=== PATIENT | female | born 1945 | race Caucasian/White ===

== ENCOUNTER 2019-10-31 15:10 | Emergency (ER) | payer MEDICARE, MEDICAID, SELFPAY ==
[2019-10-31 15:12] VITALS: BP 150/80; PULSE 73; RESP 16; O2SAT 94
--- NOTE | 2019-10-31 15:19 | ED.GENADULT ---
HPI - General Adult General Chief complaint: Weakness Stated complaint: Lethargic Time Seen by Provider: 10/31/19 15:16 Source: patient Mode of arrival: EMS Limitations: no limitations History of Present Illness HPI narrative: A 74 y/o female pt presents to the ED with c/o lethargy. Pt states that she woke up to take her night time medication at 0200 last night and did not wake until 1400 today. She states that when she woke she felt like she was sedated and couldn't move her body. She describes the feeling as her mind being awake but her body was not. Pt states that her long-term home sent her to the ED because they had difficulties waking her up, which is unusual. She notes that her BP was really high at the facility. Pt's pressure is 150/80 with EDP at bedside. Pt denies CP, ABD pain, or OATES. She denies any aggravating or alleviating factors for the lethargy. MD complaint: Lethargy Onset (ago): hour(s) (1) Relieving factors: none Exacerbating factors: none Associated symptoms: denies other symptoms Related Data Home Medications Medication Instructions Recorded Confirmed albuterol sulfate 2.5 mg INHALATION TID ml 08/13/19 08/13/19 albuterol sulfate 90 mcg/actuation 2 puff INHALATION Q4-6H PRN gm 08/13/19 08/13/19 aerosol inhaler atorvastatin 80 mg tablet 80 mg PO DAILY 08/13/19 08/13/19 diclofenac sodium 1 % topical gel 2 gm TOPICAL QID 08/13/19 08/13/19 diclofenac sodium 75 mg 75 mg PO BID 08/13/19 08/13/19 tablet,delayed release dicyclomine 10 mg capsule 10 mg PO TID PRN 08/13/19 08/13/19 doxycycline hyclate 100 mg tablet 100 mg PO BID tablet 08/13/19 08/13/19 duloxetine 60 mg capsule,delayed 60 mg PO DAILY 08/13/19 08/13/19 release ferrous sulfate 325 mg (65 mg 325 mg PO DAILY 08/13/19 08/13/19 iron) tablet fluticasone furoate 100 1 inhalation INHALATION DAILY 08/13/19 08/13/19 mcg-vilanterol 25 mcg/dose inhalation powder fluticasone propionate 50 2 spray NASAL DAILY 08/13/19 08/13/19 mcg/actuation nasal spray,suspension folic acid 1 mg tablet 1 mg PO DAILY 08/13/19 08/13/19 gabapentin 300 mg capsule 300 mg PO TID 08/13/19 08/13/19 ipratropium bromide 17 2 puff INHALATION QID 08/13/19 08/13/19 mcg/actuation HFA aerosol inhaler [id number]-[id number]-[id number] 2 cap PO TID cap 08/13/19 08/13/19 12,000-38,000-60,000 unit capsule,delayed rel lubiprostone 8 mcg capsule 8 mcg PO BID 08/13/19 08/13/19 meclizine 12.5 mg tablet 25 mg PO TID PRN tablet 08/13/19 08/13/19 nicotine 7 mg/24 hr daily 1 patch TRANSDERM DAILY 08/13/19 08/13/19 transdermal patch nystatin 100,000 unit/mL oral 5 ml PO QID ml 08/13/19 08/13/19 suspension nystatin-triamcinolone 100,000 1 applic TOPICAL BID 08/13/19 08/13/19 unit/g-0.1 % topical cream omeprazole 20 mg capsule,delayed 20 mg PO DAILY 08/13/19 08/13/19 release ondansetron HCl 4 mg tablet 4 mg PO BID tablet 08/13/19 08/13/19 oxybutynin chloride 10 mg 10 mg PO DAILY 08/13/19 08/13/19 tablet,extended release 24 hr oxycodone 10 mg tablet 10 mg PO Q8H PRN 08/13/19 08/13/19 pregabalin 100 mg capsule 100 mg PO BID 08/13/19 08/13/19 promethazine 12.5 mg rectal 12.5 mg RECTAL BID each 08/13/19 08/13/19 suppository ropinirole 2 mg tablet 2 mg PO DAILY tablet 08/13/19 08/13/19 sodium chloride 0.65 % nasal spray 1 spray NASAL BID PRN 08/13/19 08/13/19 aerosol sulfamethoxazole 800 1 tablet PO Q12H 08/13/19 08/13/19 mg-trimethoprim 160 mg tablet tizanidine 4 mg capsule 4 mg PO TID 08/13/19 08/13/19 trazodone 300 mg tablet 300 mg PO .at bedtime tablet 08/13/19 08/13/19 ProAir HFA 09/09/19 Voltaren 09/09/19 Zofran 09/09/19 aspirin 09/09/19 budesonide 09/09/19 [id number] [Creon] PO 09/09/19 loratadine mg 09/09/19 nicotine 09/09/19 pregabalin [Lyrica] 09/09/19 triamcinolone acetonide 09/09/19 Allergies Allergy/AdvReac Type Severity Reaction Status Date / Time No Known Allergies Allergy Unknown Verified 10/14/19 15:52 Revie
--- NOTE | 2019-10-31 15:43 | ECG_ITS ---
Measurements Intervals [place] Rate: 66 P: 31 MT: 151 QRS: 9 QRSD: 85 T: 37 QT: 394 QTc: 415 Interpretive Statements SINUS RHYTHM VENTRICULAR PREMATURE COMPLEX LOW QRS VOLTAGE IN PRECORDIAL LEADS BORDERLINE ECG Electronically Signed On 10-31-2019 16:19:15 RESERVOIR ENGINEERING MANAGER by Kole Carey D.O.
[2019-10-31 15:57] LABS: Basophils Absolute Auto 0.1 K/mm3 (0.0-0.1); Basophils Percent Auto 0.5 % (0.2-1.2); Eosinophils Absolute Auto 0.3 K/mm3 (0-0.3); Hemoglobin 12.5 g/dL (12.0-15.0); Immature Granulocyte Absolute 0.04 K/mm3 (0.00-0.031); Immature Granulocyte Percent A 0.4 % (0-0.5); Lymphocytes Percent Auto 24.1 % (18.3-44.2); Mean Corpuscular HGB Conc 31.3 g/dl (32-36); Mean Corpuscular Hemoglobin 31.1 pg (26-34); Mean Corpuscular Volume 99.5 fl (80-100); Mean Platelet Volume 11.7 fl (7.4-10.4); Monocytes Absolute Auto 0.6 K/mm3 (0.1-0.6); Monocytes Percent Auto 5.3 % (2.6-8.5); Neutrophils Absolute Auto 6.9 K/mm3 (1.3-6.7); Neutrophils Percent Auto 66.7 % (45.5-73.1); Platelet Count Result 244 k/mm3 (150-375); Red Blood Count 4.02 M/mm3 (4.2-5.4); Red Cell Distribution Width 12.9 % (11.5-14.5); White Blood Count 10.4 K/mm3 (4.5-10.0)
[2019-10-31 16:08] LABS: Blood Urea Nitrogen 19 mg/dL (7-17); Calcium 9.1 mg/dL (8.4-10.2); Carbon Dioxide 34 mmol/L (22-30); Chloride 95 mmol/L (98-107); Estimated CRCL calculation 57 ml/min; Estimated Glomerular Filt Rate > 60; Glucose 123 mg/dL (65-105); Potassium 3.9 mmol/L (3.4-5.0); Sodium 138 mmol/L (137-145)
[2019-10-31 17:30] VITALS: BP 127/62; PULSE 71; RESP 16; O2SAT 97
== END 2019-10-31 17:46 ==
PROVIDERS: Emergency Provider Emergency Medicine; PCP Internal Medicine
DX: R53.1 Weakness (principal); R41.82 Altered mental status, unspecified; M19.90 Unspecified osteoarthritis, unspecified site; I50.9 Heart failure, unspecified; J43.9 Emphysema, unspecified; F03.90 Unspecified dementia, unspecified severity, without behavioral disturbance, psychotic disturbance, mood disturbance, and anxiety; E78.5 Hyperlipidemia, unspecified; I11.0 Hypertensive heart disease with heart failure; I73.9 Peripheral vascular disease, unspecified; R73.03 Prediabetes; M81.0 Age-related osteoporosis without current pathological fracture; K21.9 Gastro-esophageal reflux disease without esophagitis; F32.9 Major depressive disorder, single episode, unspecified; F41.9 Anxiety disorder, unspecified; Z86.73 Personal history of transient ischemic attack (TIA), and cerebral infarction without residual deficits; Z87.440 Personal history of urinary (tract) infections; I49.3 Ventricular premature depolarization; Z99.81 Dependence on supplemental oxygen
CPT/HCPCS: 36415; 80048; 85025; 93005; 99283

== ENCOUNTER 2019-11-25 10:50 | Outpatient (CLI) | payer MEDICARE, MEDICAID, SELFPAY ==
--- NOTE | ~2019-11-25 | XR_ITS ---
EXAMINATION: XR lg joint inject/asp w image DATE: 11/25/2019 11:52 INDICATION: Right hip arthritis and chronic pain. TECHNIQUE: A time-out was performed to verify the patient's name, date of , and procedure to b e performed. The procedure including the risks, benefits, and alternatives was discussed with the pat ient. Risks discussed included bleeding and infection. The patient understood the risks and agreed to proceed. The skin overlying the right hip joint was prepped and draped in usual sterile fashion. A nesthetic was administered with 1% lidocaine subcutaneously. A 22 G needle was advanced under fluoro scopic guidance into the joint. Injection of 1 mL of Omnipaque 240 confirmed intra-articular positio n of the needle. Subsequently, injectate consisting of 2 mL 0.5% bupivacaine and 1 mL 80 mg/mL Depo- Medrol was instilled. The needle was removed and the entry site was cleaned and dressed. There were no immediate complications. Fluoroscopy exposure time was 0.0 minutes. The total number of images wa s 2. FINDINGS: Real-time fluoroscopy demonstrates the needle in the right hip joint. Patient's pain prior to procedure:2/10. Patient's pain following the procedure: 0/10. IMPRESSION: 1. Right hip joint injection of local anesthetic and steroid with decrease in the patient's presentin g pain. Reviewed, dictated and finalized at location A. KET FOLDER IMPRESSION: 1. Right hip joint injection of local anesthetic and steroid with decrease in t he patient's presenting pain.
== END 2019-11-25 10:51 | disposition home or self-care (01) ==
PROVIDERS: PCP Internal Medicine; Visit Provider Orthopaedic Surgery
DX: M16.11 Unilateral primary osteoarthritis, right hip (principal)
CPT/HCPCS: 20610; 77002; J1040; Q9966

== ENCOUNTER 2019-12-09 12:32 | Outpatient (CLI) | payer MEDICARE, MEDICAID, SELFPAY ==
--- NOTE | ~2019-12-09 | CT_ITS ---
EXAMINATION: CT lumbar spine wo [facility] EXAM DATE: 12/09/2019 13:03 INDICATION: Low back pain. TECHNIQUE: Spiral CT of the lumbar spine was performed without contrast. Axial, coronal and sagittal images were reviewed. The dose-length product (DLP) for this examination was 771.21 mGy-cm. The e xposure was tailored according to patient size (auto mA exposure control), and iterative reconstructi on (ASIR) was used as additional dose reduction technique. Comparison is made to prior examination fr 02/01/2017. FINDINGS: Cholecystectomy clips. There is mild to moderate thoracolumbar levoscoliosis, lumbar dextro scoliosis. Interbody fusion at L4-5 with solid bone bridging within the interbody devices. Mild diffu se loss of vertebral body heights, more on the concave sides of the scoliosis. There is moderate to s evere disc disease from T11 through L4, mild at L5-S1. There is 3 mm retrolisthesis L5 on S1. 2 mm re trolisthesis L3 on L4. No sacral fracture. Small right adrenal gland adenoma, measuring 1 cm. There i s colonic diverticulosis. Level by level evaluation: T11-12: There is a mild diffuse disc bulge. Facet arthropathy: Mild. Neural foraminal stenosis: Mild right. Central canal stenosis: Mild. T12-L1: There is a mild to moderate diffuse disc bulge. Facet arthropathy: Mild. Neural foraminal stenosis: Mild to moderate right. Central canal stenosis: Mild. L1-L2: There is a moderate diffuse disc bulge. Facet arthropathy: Mild to moderate. Neural foraminal stenosis: Moderate bilateral. Central canal stenosis: Mild to moderate. L2-L3: There is a moderate diffuse disc bulge. Facet arthropathy: Mild to moderate. Neural foraminal stenosis: Moderate to severe left, mild right. Central canal stenosis: Mild to moderate. L3-L4: There is a moderate diffuse disc bulge. Facet arthropathy: Moderate. Neural foraminal stenosis: Moderate left, mild to moderate right. Central canal stenosis: Mild to moderate. L4-L5: This level is fused. Facet arthropathy: Mild to moderate. Neural foraminal stenosis: Mild to moderate right, mild left. Central canal stenosis: Mild. L5-S1: There is a mild to moderate diffuse disc bulge. Facet arthropathy: Mild to moderate. Neural foraminal stenosis: Moderate right, mild left. Central canal stenosis: Mild. Difficult to appreciate any significant interval change compared to prior study. IMPRESSION: 1. Intact fusion L4-5. 2. Advanced thoracolumbar spondylosis as detailed above. Reviewed, dictated and finalized at location A.
== END 2019-12-09 12:33 | disposition home or self-care (01) ==
PROVIDERS: PCP Internal Medicine; Visit Provider Nurse Practitioner Gerontology
DX: M47.895 Other spondylosis, thoracolumbar region (principal); Z98.1 Arthrodesis status
CPT/HCPCS: 72131

== ENCOUNTER 2020-04-13 12:43 | Outpatient (CLI) | payer MEDICARE, MEDICAID, SELFPAY ==
--- NOTE | ~2020-04-13 | XR_ITS ---
EXAMINATION: XR lg joint inject/asp w image DATE: 04/13/2020 14:04 INDICATION: Right hip arthritis and pain TECHNIQUE: A time-out was performed to verify the patient's name, date of , and procedure to b e performed. The procedure including the risks, benefits, and alternatives was discussed with the pat ient. Risks discussed included bleeding and infection. The patient understood the risks and agreed to proceed. The skin overlying the right hip joint was prepped and draped in usual sterile fashion. A nesthetic was administered with 1% lidocaine subcutaneously. A 22 G needle was advanced under fluoro scopic guidance into the joint. Injection of 0.6 mL of Omnipaque 240 confirmed intra-articular posit ion of the needle. Subsequently, injectate consisting of 2:1 mixture of 0.5% Marcaine: 80 mg/mL Depo -Medrol for a total dosage of 80 mg Depo-Medrol was instilled. Washout of contrast was seen confirmin g intra-articular administration. The needle was removed and the entry site was cleaned and dressed. There were no immediate complications. Fluoroscopy exposure time was 0.1 minutes. The total number o f images was 2. FINDINGS: Real-time fluoroscopy demonstrates the needle in the right hip joint. Patient's pain prior to procedure:/10. Patient's pain following the procedure: 06/11. IMPRESSION: 1. Right hip joint injection of local anesthetic and steroid with increased in the patient's presenti ng pain. Reviewed, dictated and finalized at location A. IMPRESSION: 1. Right hip joint injection of local anesthetic and steroid with increased in the patient's presenting pain.
== END 2020-04-13 12:44 | disposition home or self-care (01) ==
LOC: ANHIMG 12:45
PROVIDERS: PCP Internal Medicine; Visit Provider Nurse Practitioner Family
DX: M16.11 Unilateral primary osteoarthritis, right hip (principal)
CPT/HCPCS: 20610; 77002; J1040; Q9966

== ENCOUNTER 2020-04-15 13:54 | Outpatient (CLI) | payer MEDICARE, MEDICAID, SELFPAY ==
--- NOTE | ~2020-04-15 | MR_ITS ---
EXAMINATION: MR cervical spine wo con DATE: 04/15/2020 15:26 INDICATION: Neck pain. TECHNIQUE: Magnetic resonance imaging (MRI) of the cervical spine was performed without intravenous c ontrast. Sequences included sagittal T2-weighted FSE, sagittal STIR FSE, sagittal T1-weighted FSE, ax ial MERGE, and axial T2-weighted FSE. COMPARISON: Cervical spine MRI 01/11/2015 FINDINGS: Bone alignment is normal. Vertebral body heights are normal. There are changes of anterior fusion procedure at C5-C6 with healed interbody bone graft and anterior plate and screws. There is se verely decreased disc height at C4-C5 and C6-C7 and mildly decreased disc height at C7-T1. The spinal cord signal intensity is normal. The following disc levels are specifically discussed: C2-C3: The disc does not extend beyond the endplate margin. There is no uncovertebral joint osteoarth ritis. There is severe bilateral facet joint osteoarthritis. There is no neural foraminal stenosis. T here is no central canal stenosis. C3-C4: The disc is bulging. There is mild right and moderate left uncovertebral joint osteoarthritis. There is severe left facet joint osteoarthritis. There is moderate left neural foraminal stenosis. T here is no central canal stenosis. C4-C5: The disc is bulging. There is moderate right and severe left uncovertebral joint osteoarthriti s. There is mild right and severe left facet joint osteoarthritis. There is mild bilateral neural for aminal stenosis. There is mild central canal stenosis. C5-C6: There is mild bilateral uncovertebral joint hypertrophy. There is no facet joint osteoarthriti s. There is no neural foraminal stenosis. There is mild central canal stenosis. C6-C7: The disc is bulging. There is moderate right and severe left uncovertebral joint osteoarthriti s. There is no facet joint osteoarthritis. There is mild bilateral neural foraminal stenosis. There i s mild central canal stenosis. C7-T1: The disc is bulging. There is mild bilateral uncovertebral joint osteoarthritis. There is mode rate right and severe left facet joint osteoarthritis. There is mild left neural foraminal stenosis. There is no central canal stenosis. IMPRESSION: 1. Severe cervical spondylosis, stable from 01/11/2015. 2. Anterior fusion procedure at C5-C6. Reviewed, dictated and finalized at location A.
== END 2020-04-15 13:55 | disposition home or self-care (01) ==
PROVIDERS: PCP Internal Medicine; Visit Provider Nurse Practitioner Family
DX: M47.892 Other spondylosis, cervical region (principal); Z98.1 Arthrodesis status
CPT/HCPCS: 72141

== ENCOUNTER 2020-04-21 13:45 | Outpatient (CLI) | payer MEDICARE, MEDICAID, SELFPAY ==
--- NOTE | ~2020-04-21 | DEXA_ITS ---
Bone Density Report Name: Gabbi Conrad Age: 75 Sex: Female Ethnicity: White Date of : 1945 Indication: postmenopausal; height loss; hysterectomy; Referring Provider: Radha Mullins Study: Bone densitometry was performed. Exam Date: April 21, 2020 Accession number: [id number] Bone Density: Region BMD T-score Z-score Classification AP Spine (L1, L3) 1.315 2.7 5.1 Normal Femoral Neck (Left) 0.648 -1.8 0.3 Osteopenia Total Hip (Left) 0.838 -0.9 1.0 Normal Total Hip Bilateral Avg 0.811 -1.1 0.8 Osteopenia Femoral Neck (Right) 0.703 -1.3 0.8 Osteopenia Total Hip (Right) 0.784 -1.3 0.6 Osteopenia World Health Organization criteria for BMD impression classify patients as: Normal (T-score at or above -1.0), Osteopenia (T-score between -1.0 and -2.5), or Osteoporosis (T-score at or below -2.5). 10-year Fracture Risk(1): Major Osteoporotic Fracture 12% Hip Fracture 4.2% Reported Risk Factors: [place] (), Neck BMD=0.648, BMI=35.7, smoking (1) FRAX(R) Version 3.08. Fracture probability calculated for an untreated patient. Fracture probability may be lower if the patient has received treatment. Clinical Information Provided by Patient: Smokes Has the following medical conditions: Hysterectomy Patient maximum height was 62 Menopause Age: 39 No regular weight bearing exercise Drinks caffeinated beverages Onset of menses at age 8 Number of children 4 Impression: The patient has low bone mass, based on the Left Femoral Neck T-score. The patient has an estimated ten-year risk of hip fracture of 4.2% and an estimated ten-year risk of major fracture of 12%, based on the WHO FRAX algorithm. The patient has risk factors, including: smoking. Discussion: BONE DENSITY IS LOW AT ONE OR MORE SKELETAL SITES. THE PATIENT'S BMD AND CLINICAL RISK FACTORS CONTRIBUTE TO THIS PATIENT'S INCREASED RISK OF FRACTURE. This patient's lowest T-score is low at one or more skeletal sites. It meets the World Health Organization's (WHO) criteria for ?low bone mass? (T-score between -1.0 and -2.5). The patient's 10-year risk of hip fracture as calculated by FRAX exceeds the threshold where pharmacological therapy is recommended by the National Osteoporosis Foundation (NOF). However, all treatment decisions require clinical judgment and consideration of individual patient factors, including patient preferences, comorbidities, previous drug use, risk factors not captured in the FRAX model (e.g., frailty, falls, vitamin D deficiency, increased bone turnover, interval significant decline in bone density) and possible under or overestimation of fracture risk by FRAX. The patient should follow a healthful lifestyle (good nutrition with adequate calcium and vitamin D, and appropriate weight-bearing exercise). Follow-Up: Cons
--- NOTE | ~2020-04-21 | MM_ITS ---
EXAMINATION: MM screening cr BI w juan manuel HISTORY: Screening mammogram TECHNIQUE: Craniocaudal and mediolateral oblique 3-D tomosynthesis images were obtained and synthetic 2-D images were generated. CAD analysis was submitted and interpreted. COMPARISON: No prior mammogram is available for comparison at this institution. BREAST PARENCHYMAL COMPOSITION: There are scattered areas of fibroglandular density. FINDINGS: There is no evidence of suspicious mass, calcification, or architectural distortion to sugg est malignancy in either breast. There has been no suspicious interval change. IMPRESSION: 1. No mammographic evidence of malignancy. 2. Recommend routine screening mammography in one year. BI-RADS Category 1: Negative Reviewed, dictated and finalized at location A.
== END 2020-04-21 13:46 | disposition home or self-care (01) ==
PROVIDERS: PCP Internal Medicine; Visit Provider Nurse Practitioner
DX: Z12.31 Encounter for screening mammogram for malignant neoplasm of breast (principal); Z78.0 Asymptomatic menopausal state; M85.89 Other specified disorders of bone density and structure, multiple sites
CPT/HCPCS: 77063; 77067; 77080

== ENCOUNTER 2020-05-08 11:01 | Outpatient (CLI) | payer MEDICARE, MEDICAID, SELFPAY ==
--- NOTE | ~2020-05-08 | XR_ITS ---
EXAMINATION: XR lg joint inject/asp w image DATE: 05/08/2020 12:07 INDICATION: Left hip arthritis TECHNIQUE: A time-out was performed to verify the patient's name, date of , and procedure to b e performed. The procedure including the risks, benefits, and alternatives was discussed with the pat ient. Risks discussed included bleeding and infection. The patient understood the risks and agreed to proceed. The skin overlying the left hip joint was prepped and draped in usual sterile fashion. An esthetic was administered with 1% lidocaine subcutaneously. A 22 G needle was advanced under fluoros copic guidance into the joint. Injection of 0.4 mL of Omnipaque 240 confirmed intra-articular positi on of the needle. Subsequently, injectate consisting of 3 mm of a 2:1 mixture of 0.5% Marcaine:80 mg /mL Depo-Medrol for a total dose of 80 mg Depo-Medrol was instilled. Washout of contrast was seen con firming intra-articular administration. The needle was removed and the entry site was cleaned and maribell ssed. There were no immediate complications. Fluoroscopy exposure time was 0.1 minutes. The total nu mber of images was 2. FINDINGS: Real-time fluoroscopy demonstrates the needle in the left hip joint. Patient's pain prior t o procedure:5/10. Patient's pain following the procedure: 0/10. IMPRESSION: 1. Left hip joint injection of local anesthetic and steroid with decrease in the patient's presenting pain. Reviewed, dictated and finalized at location A. IMPRESSION: 1. Left hip joint injection of local anesthetic and steroid with decrease in th e patient's presenting pain.
== END 2020-05-08 11:02 | disposition home or self-care (01) ==
LOC: ANHIMG 11:03
PROVIDERS: PCP Internal Medicine; Visit Provider Orthopaedic Surgery
DX: M16.12 Unilateral primary osteoarthritis, left hip (principal)
CPT/HCPCS: 20610; 77002; J1040; Q9966

== ENCOUNTER 2020-05-11 10:21 | Outpatient (CLI) | payer MEDICARE, MEDICAID, SELFPAY ==
--- NOTE | ~2020-05-11 | CT_ITS ---
EXAMINATION:CT lung screening DATE: 05/11/2020 11:05 INDICATION: Personal history of tobacco dependence. Smoker who quit 2 years ago with 30 pack year his tory. TECHNIQUE: Computed tomography (CT) of the chest was performed without intravenous contrast. Automate d exposure control and iterative reconstruction technique were employed. The dose-length product (DLP ) was 141.72 mGy-cm. COMPARISON: Chest CT 02/04/2019 FINDINGS: There are widespread peripheral reticular opacities in the lungs. There is chronic bandlike scarring in right upper lobe. There is peripheral honeycombing in the upper lobes. These findings ar e consistent with usual interstitial pneumonia (UIP). No pleural effusion. The heart size is normal. No pericardial effusion. The central pulmonary arteries are enlarged, consistent with pulmonary arter ial hypertension. There are no pathologically enlarged lymph nodes. There are changes of cholecystect linh. Calcifications in the spleen are consistent with old granulomatous disease. There are changes of anterior fusion procedure in cervical spine. There is mild thoracic spondylosis. IMPRESSION: 1. Lung-RADS category 2: Benign appearance or behavior. Continue annual screening with noncontrast lo w-dose chest CT in 12 months. Reviewed, dictated and finalized at location B. IMPRESSION: 1. Lung-RADS category 2: Benign appearance or behavior. Continue annual screeni ng with noncontrast low-dose chest CT in 12 months.
== END 2020-05-11 10:22 | disposition home or self-care (01) ==
LOC: ANHIMG 10:22
PROVIDERS: PCP Internal Medicine; Visit Provider Nurse Practitioner Family
DX: Z87.891 Personal history of nicotine dependence (principal)
CPT/HCPCS: G0297

== ENCOUNTER 2020-05-14 08:07 | Outpatient (CLI) | payer MEDICARE, MEDICAID, SELFPAY ==
[2020-05-14 09:00] VITALS: PULSE 78; O2SAT 94
[2020-05-14 09:05] VITALS: PULSE 92; O2SAT 86
[2020-05-14 09:10] VITALS: PULSE 94; O2SAT 87
[2020-05-14 09:15] VITALS: PULSE 91; O2SAT 90
[2020-05-14 09:30] VITALS: PULSE 76; O2SAT 94
--- NOTE | 2020-05-14 09:30 | HOMEO2EVAL ---
Home Oxygen Evaluation RC: Home Oxygen (O2) Evaluation Start: 05/14/20 09:26 Freq: Status: Active Protocol: RPE Activity Type Activity Date Activity User E-Sign Co-Sign Detail Recorded Client Recorded Date Recorded By Document 05/14/20 09:00 DJO [email or web address] 05/14/20 09:30 DJO Document 05/14/20 09:05 [email or web address] [email or web address] 05/14/20 09:30 DJO Document 05/14/20 09:10 DJO [email or web address] 05/14/20 09:30 DJO Document 05/14/20 09:15 [email or web address] [email or web address] 05/14/20 09:30 DJO Document 05/14/20 09:30 [email or web address] [email or web address] 05/14/20 09:30 DJO 05/14/20 05/14/20 05/14/20 09:00 09:05 09:10 Home O2 Evaluation Test Phase Resting Exercise Exercise Oxygen Delivery Room Air Room Air Nasal Cannula Oxygen Flow Rate (L/min) 1 Pulse Oximetry (90-100 %) 94 86 L 87 L Pulse Rate (60-100 beats/min) 78 92 94 Ambulation Distance (feet) Treatment Charges O2 Evaluation 05/14/20 05/14/20 09:15 09:30 Home O2 Evaluation Test Phase Exercise Resting Oxygen Delivery Nasal Cannula Room Air Oxygen Flow Rate (L/min) 2 Pulse Oximetry (90-100 %) 90 94 Pulse Rate (60-100 beats/min) 91 76 Ambulation Distance (feet) 800 Treatment Charges
== END 2020-05-14 08:08 | disposition home or self-care (01) ==
LOC: ANHPFT 08:08
PROVIDERS: PCP Internal Medicine; Visit Provider Nurse Practitioner Family
DX: J96.11 Chronic respiratory failure with hypoxia (principal)
CPT/HCPCS: 94618

== ENCOUNTER 2020-10-30 12:47 | Outpatient (CLI) | payer MEDICARE, MEDICAID, SELFPAY ==
--- NOTE | ~2020-10-30 | XR_ITS ---
. EXAMINATION: XR lg joint inject/asp add DATE: 10/30/2020 14:06 INDICATION: Right hip osteoarthritis. TECHNIQUE: A time-out was performed to verify the patient's name, date of , and procedure to b e performed. The procedure including the risks, benefits, and alternatives was discussed with the pat ient. Risks discussed included bleeding and infection. The patient understood the risks and agreed to proceed. The skin overlying the right hip joint was prepped and draped in usual sterile fashion. A nesthetic was administered with 1% lidocaine subcutaneously. A 22 G needle was advanced under fluoro scopic guidance into the joint. Injection of 1 mL of Omnipaque 240 confirmed intra-articular positio n of the needle. Subsequently, injectate consisting of 2 mL 0.5% bupivacaine and 1 mL 80 mg/mL Depo- Medrol was instilled. The needle was removed and the entry site was cleaned and dressed. There were no immediate complications. Fluoroscopy exposure time was 0.1 minutes. The total number of images wa s 2. FINDINGS: Real-time fluoroscopy demonstrates the needle in the right hip joint. Patient's pain prior to procedure:02/08. Patient's pain following the procedure: 10/11. IMPRESSION: 1. Fluoroscopy guided right hip joint injection of local anesthetic and steroid with decrease in the patient's presenting pain. Reviewed, dictated and finalized at location A. ED GLASS CROSSCUTTER
--- NOTE | ~2020-10-30 | XR_ITS ---
EXAMINATION: XR lg joint inject/asp w image DATE: 10/30/2020 14:05 INDICATION: Left hip osteoarthritis. TECHNIQUE: A time-out was performed to verify the patient's name, date of , and procedure to b e performed. The procedure including the risks, benefits, and alternatives was discussed with the pat ient. Risks discussed included bleeding and infection. The patient understood the risks and agreed to proceed. The skin overlying the left hip joint was prepped and draped in usual sterile fashion. An esthetic was administered with 1% lidocaine subcutaneously. A 22 G needle was advanced under fluoros copic guidance into the joint. Injection of 1 mL of Omnipaque 240 confirmed intra-articular position of the needle. Subsequently, injectate consisting of 2 mL 0.5% bupivacaine and 1 mL 80 mg/mL Depo-M edrol was instilled. The needle was removed and the entry site was cleaned and dressed. There were no immediate complications. Fluoroscopy exposure time was 0.1 minutes. The total number of images was 2. FINDINGS: Real-time fluoroscopy demonstrates the needle in the left hip joint. Patient's pain prior t o procedure:02/08. Patient's pain following the procedure: 10/11. IMPRESSION: 1. Fluoroscopy guided left hip joint injection of local anesthetic and steroid with decrease in the p atient's presenting pain. Reviewed, dictated and finalized at location A. BEACON ANALYST IMPRESSION: 1. Fluoroscopy guided left hip joint injection of local anesthetic and steroid with decrease in the patient's presenting pain.
== END 2020-10-30 12:48 | disposition home or self-care (01) ==
PROVIDERS: PCP Internal Medicine; Visit Provider Nurse Practitioner Family
DX: M16.0 Bilateral primary osteoarthritis of hip (principal)
CPT/HCPCS: 20610; 77002; J1040; Q9966; Q9967

== ENCOUNTER 2021-01-28 13:08 | Outpatient (CLI) | payer MEDICARE, MEDICAID, SELFPAY ==
--- NOTE | ~2021-01-28 | XR_ITS ---
EXAMINATION: 1. XR lg joint inject/asp add 2. XR lg joint inject/asp w image DATE: 01/28/2021 14:35 INDICATION: Bilateral hip arthritis. TECHNIQUE: A time-out was performed to verify the patient's name, date of , and procedure to b e performed. The procedure including the risks, benefits, and alternatives was discussed with the pat ient. Risks discussed included bleeding and infection. The patient understood the risks and agreed to proceed. The skin overlying the hip joints was prepped and draped in usual sterile fashion. Anesth etic was administered with 1% lidocaine subcutaneously. A 22 G needle was advanced under fluoroscopi c guidance into the left joint. Injection of 1 mL of Omnipaque 240 confirmed intra-articular positio n of the needle. Subsequently, injectate consisting of 2 mL 0.5% bupivacaine and 1 mL 80 mg/mL Depo- medrol was instilled. A 22 G needle was advanced under fluoroscopic guidance into the right joint. Injection of 1 mL of Om nipaque 240 confirmed intra-articular position of the needle. Subsequently, injectate consisting of 2 mL 0.5% bupivacaine and 1 mL 80 mg/mL Depo-medrol was instilled. The needle was removed and the e ntry site was cleaned and dressed. There were no immediate complications. Fluoroscopy exposure time was 0.1 minutes. The total number of images was 4. FINDINGS: Real-time fluoroscopy demonstrates the needle in the left joint. Patient's pain prior to pr ocedure:6/10. Patient's pain following the procedure: 0/10. Real-time fluoroscopy demonstrates the needle in the right joint. Patient's pain prior to procedure:7 /10. Patient's pain following the procedure: 0/10. IMPRESSION: 1. Fluoroscopy guided left hip joint injection of local anesthetic and steroid with decrease in the p atient's presenting pain. 2. Fluoroscopy guided right hip joint injection of local anesthetic and steroid with decrease in the patient's presenting pain. Reviewed, dictated and finalized at location A. IMPRESSION: 1. Fluoroscopy guided left hip joint injection of local anesthetic and steroid with decrease in the patient's presenting pain. 2. Fluoroscopy guided right hip joint injection of local anesthetic and steroid with decrease in the patient's presenting pain.
== END 2021-01-28 13:09 | disposition home or self-care (01) ==
PROVIDERS: PCP Internal Medicine; Visit Provider Orthopaedic Surgery
DX: M16.0 Bilateral primary osteoarthritis of hip (principal)
CPT/HCPCS: 20610; 77002; J1040; Q9966

== ENCOUNTER 2021-04-02 23:06 | Observation (INO) | payer MEDICARE, MEDICAID, SELFPAY ==
--- NOTE | ~2021-04-02 | XR_ITS ---
EXAMINATION: XR chest 2V DATE: 04/03/2021 00:25 INDICATION: Shortness of breath TECHNIQUE: AP and lateral views of the chest are obtained. COMPARISON: 09/19/2019 FINDINGS: The lung volumes are low. There are chronic subpleural opacities. Minimal superimposed opac ities are seen in the left mid and lower lung zones. There is no pleural effusion or pneumothorax. Th e cardiomediastinal silhouette is normal. There is mild thoracic spondylosis. There are changes of an terior fusion procedure in the lower cervical spine. IMPRESSION: 1. Chronic interstitial lung disease with superimposed opacities in the left mid and lower lung zones which could reflect infection/inflammation versus worsened chronic lung disease. Reviewed, dictated and finalized at location A. IMPRESSION: 1. Chronic interstitial lung disease with superimposed opacities in the left mi d and lower lung zones which could reflect infection/inflammation versus worsen ed chronic lung disease.
--- NOTE | ~2021-04-02 | CT_ITS ---
EXAMINATION: CT brain wo con INDICATION: Head injury COMPARISON: 07/27/2019 TECHNIQUE: Standard unenhanced head CT. The dose-length product (DLP) was 605.33 mGy-cm. The mA was a djusted according to patient size. Iterative reconstruction technique was employed. FINDINGS: There is no acute intraparenchymal hemorrhage. No evidence of mass lesion. No evidence of a cute infarction. 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 There is mild periventricular and subcortical hypodensity probably related to small vessel ischemic disease. T here is mild prominence of the sulci and ventricles related to cerebral atrophy. Intracranial calcifi ed cerebral atherosclerosis is noted. There are no extra-axial collections. There is no mass effect o r midline shift. Changes in the globes are likely from ocular lens surgery. The visualized sinuses an d mastoid air cells are well aerated. IMPRESSION: 1. No acute intracranial abnormality. 2. Age related findings. Reviewed, dictated and finalized at location A.
--- NOTE | ~2021-04-02 | XR_ITS ---
EXAMINATION: XR hip BI 2V w AP pelvis EXAM DATE: 04/04/2021 16:03 INDICATION: Initial encounter following injury, with pain of the pelvis, hips. TECHNIQUE: Each hip imaged independently (separate right and also left hip) 'frog leg' and frontal p rojections for interpretation. Frontal projection pelvis. Comparison is made to prior examination fr om 08/01/2019. FINDINGS: There is moderate to severe right hip, moderate left hip primary osteoarthritis. There are no acute fractures or dislocations identified. There is no subcutaneous gas. The soft tissue is unr emarkable. Interbody devices L4-5. IMPRESSION: Osteoarthritis. Reviewed, dictated and finalized at location A. IMPRESSION: Osteoarthritis.
[2021-04-02 23:07] VITALS: BP 140/72; PULSE 75; RESP 16; TEMP 36.3; O2SAT 96
[2021-04-03] VITALS (7 sets, daily range): BP systolic 111–134; BP diastolic 51–61; PULSE 56–87; RESP 16–18; TEMP 36.2–36.6; O2SAT 95–100; BMI 36.0
[2021-04-03 00:55] LABS: Anion Gap 5 mmol/L (8-16); Basophils Absolute Auto 0.1 K/mm3 (0.0-0.1); Basophils Percent Auto 0.6 % (0.2-1.2); Blood Urea Nitrogen 14 mg/dL (7-17); Calcium 8.5 mg/dL (8.4-10.2); Carbon Dioxide 38 mmol/L (22-30); Chloride 88 mmol/L (98-107); Eosinophils Absolute Auto 0.9 K/mm3 (0-0.3); Eosinophils Percent Auto 9.1 % (0-4.4); Estimated CRCL calculation 56 ml/min; Estimated Glomerular Filt Rate > 60; Glucose 153 mg/dL (65-105); Hematocrit 31.6 % (37.0-47.0); Immature Granulocyte Absolute 0.04 K/mm3 (0.00-0.031); Immature Granulocyte Percent A 0.4 % (0-0.5); Lymphocytes Absolute Auto 2.31 K/mm3 (0.9-3.2); Lymphocytes Percent Auto 22.5 % (18.3-44.2); Mean Corpuscular HGB Conc 31.6 g/dl (32-36); Mean Corpuscular Hemoglobin 29.8 pg (26-34); Monocytes Absolute Auto 0.8 K/mm3 (0.1-0.6); Monocytes Percent Auto 8.2 % (2.6-8.5); Neutrophils Absolute Auto 6.1 K/mm3 (1.3-6.7); Neutrophils Percent Auto 59.2 % (45.5-73.1); Platelet Count Result 252 k/mm3 (150-375); Potassium 4.5 mmol/L (3.4-5.0); Red Blood Count 3.36 M/mm3 (4.2-5.4); Red Cell Distribution Width 15.1 % (11.5-14.5); Sodium 131 mmol/L (137-145); White Blood Count 10.3 K/mm3 (4.5-10.0)
[2021-04-03 01:05] LABS: NT Pro B Type Natriuretic Pept 302 pg/mL (5-100)
[2021-04-03 03:04] LABS: Add Urine Microscopic? YES; Appearance Urine Cloudy (Clear); Bacteria Urine 2+ /hpf; Bilirubin Urine Negative (Negative); Blood Urine Negative (Negative); Color Urine Yellow (Yellow); Glucose Urine UA Negative (Negative); Ketones Urine Negative (Negative); Leukocyte Esterase Ur 2+ LEU/UL (Negative); Mucus Urine Rare /lpf; Nitrate Urine Positive (Negative); Protein Urine Negative (Negative); RBC Urine 0-2 /hpf (0-2); Squamous Epithelial Cell Urine Occasional /hpf (Few); Urobilinogen Urine Negative mg/dL (<2.0); WBC Urine 31-50 /hpf
--- NOTE | 2021-04-03 03:24 | ED.GENADULT ---
HPI - General Adult General Chief complaint: Fall Stated complaint: fall Time Seen by Provider: 04/02/21 23:43 History of Present Illness HPI narrative: Patient is a 76-year-old female who presents ER status post fall. Patient reports she has had 3 falls today and this evening slid out of her bed trying to get something. Patient reports progressively weak. Patient is chronically O2 dependent and has had no increase in O2 requirement. She is not short of breath. Denies losing consciousness when she fell to the ground in her kitchen of her independent living facility. She is not on blood thinners. Patient does report new increase in swelling to her legs bilaterally. Related Data Home Medications Medication Instructions Recorded Confirmed diclofenac sodium 1 % topical gel 2 gm TOPICAL QID 08/13/19 02/09/21 [id number]-[id number]-[id number] 2 cap PO TID cap 08/13/19 02/09/21 12,000-38,000-60,000 unit capsule,delayed rel ProAir HFA 09/09/19 02/09/21 dicyclomine 10 mg capsule 10 mg PO QID 04/24/20 02/09/21 prochlorperazine maleate 10 mg 10 mg PO Q8H PRN 04/24/20 02/09/21 tablet Allergies Allergy/AdvReac Type Severity Reaction Status Date / Time No Known Allergies Allergy Unknown Verified 10/27/20 11:34 Review of Systems Review of Systems: All systems reviewed & are unremarkable except as noted in HPI and below Constitutional: Constitutional: Denies chills, Denies fever(s) and Reports weakness ENT: Denies nasal congestion and Denies sore throat Cardiovascular: Cardiovascular: Denies chest pain and Denies radiating jaw, neck or arm pain Respiratory: Respiratory: Denies cough, Denies dyspnea and Denies wheezing Gastrointestinal: Gastrointestinal: Denies nausea and Denies vomiting Genitourinary: Genitourinary: Reports nocturia and Denies dysuria Musculoskeletal: Comments: Extremity edema PMFSH Past Medical History Medical History Anemia Anxiety Arthritis Back injury Back pain Bilateral shoulder pain Bronchitis CHF (congestive heart failure) COPD (chronic obstructive pulmonary disease) On home O2 3L Degenerative joint disease of both hips Degenerative joint disease of right hip Dementia Depression 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fection) Wears dentures Surgical History Surgical History H/O neck surgery 2002 History of back surgery 1999 History of bladder suspension procedure History of cardiac cath History of cholecystectomy History of hysterectomy History of lumbar fusion x2 History of tonsillectomy History of tubal ligation History of vascular surgery lt leg arteroplasty Family History Family History Father Patient's father is in good health Family history of Parkinson's disease Sibling Patient's brother is in good health Mother Family history of chronic obstructive pulmonary disease Family history of pancreatic cancer Social History Social History Smoking packs per day: 1 Smoking cigarettes per day: 20.0 Years smoked: 30 Smoking pack-years: 30.00 Smoking status: Former smoker Smoking end date: 10/02/17 Alcohol intake: never Substance use: never Gender identity (if verbalized by the patient): Female Exam Narrative: Exam Narrative: GENERAL: Chronically ill-appearing, well-nourished, and in no acute distress. HEAD: Normocephalic, atraumatic. ENT: Mucous
--- NOTE | 2021-04-03 03:32 | PC.NURSE ---
pt attempted to ambulate, failed at attempt, unable to bear own weight
--- NOTE | 2021-04-03 05:50 | ADMGEN ---
This patient, Gabbi A Call, was admitted to Medical Room 343-01. Patient/family oriented to hospital policies and general routines including ID bracelet, bed and alarms, visiting hours, pain management, procedures, bathroom and other care routines, personal items, smoking policy, room service/diet, and visiting hours. Information on how to activate the Rapid Response Team has been discussed. Patient/Family are encouraged to report perceived risks to care and to ask questions if they do not understand what they are told or what they should do.
[2021-04-03] MEDS: ASPIRIN 81 MG CHEWABLE TABLET PO (13:00)
[2021-04-03] MEDS: ATORVASTATIN 40 MG TABLET 80 MG PO (13:00)
[2021-04-03] MEDS: FERROUS SULFATE 324 MG TABLET PO (13:00)
[2021-04-03] MEDS: DULoxetine HCL 60 MG CAPSULE.DR PO (13:00)
[2021-04-03] MEDS: FOLIC ACID 1 MG TABLET PO (13:01)
[2021-04-03] MEDS: LIPASE/AMYLASE/PROTEASE 12,000 UNITS CAP 2 CAP PO ×2 (13:01→17:01)
[2021-04-03] MEDS: traMADol HCL (*CRX) 50 MG TABLET PO (13:05)
--- NOTE | 2021-04-03 14:02 | PM.IMHP ---
H&P: HPI History of Present Illness Date/Time: 04/03/21 1300 Chief Complaint: Fall Narrative: Date of Service 04/03/21 The supervising physician for this history and physical is Dr Natacha Zheng. Ms. Champagne is a 76yo F with history of COPD, chronic interstitial lung disease on 2L home O2, CHF, hypertension, dyslipidemia, peripheral vascular disease who presented to the ED after a fall at assisted living. She tells me she has fallen 3 times recently. She reports some urinary incontinence and dysuria over the last few days prior to arrival which she thinks is improved today. she denies any fever or chills at home. She notes that she usually uses a walker for ambulation and she has had increased difficulty walking over last few days. She denies feeling more short of breath than her normal. She denies chest pain, cough, or sick contacts. She reports some chronic DESEAN shoulder discomfort from bad arthritis but really otherwise offers no complaints today. In the ED, urinalysis is found to be abnormal and she was started on empiric antibiotic therapy with IV Rocephin. Urine culture is pending. Routine labs demonstrate a mild leukocytosis and chronic normocytic anemia, mild hyponatremia, elevated CO2 suspect related to her chronic lung disease. BNP 302. chest x-ray with evidence of chronic interstitial lung disease with some superimposed opacities on the left. CT brain was performed and demonstrated no acute intracranial findings. She is admitted to the hospitalist service under observation status for management of UTI and PT/OT evaluations after a fall. Review of Systems Review of Systems: Narrative: Twelve systems were reviewed with pertinent positives and negatives as per HPI. Except as documented, all other systems were reviewed and are negative. [facility] Past Medical History Medical History Anemia Anxiety Arthritis Back injury Back pain Bilateral shoulder pain Bronchitis CHF (congestive heart failure) COPD (chronic obstructive pulmonary disease) On home O2 3L Degenerative joint disease of both hips Degenerative joint disease of right hip Dementia Depression 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fection) Wears dentures Surgical History Surgical History H/O neck surgery 2001 History of back surgery 1999 History of bladder suspension procedure History of cardiac cath History of cholecystectomy History of hysterectomy History of lumbar fusion x2 History of tonsillectomy History of tubal ligation History of vascular surgery lt leg arteroplasty Family History Family History Father Patient's father is in good health Family history of Parkinson's disease Sibling Patient's brother is in good health Mother Family history of chronic obstructive pulmonary disease Family history of pancreatic cancer Social History Social History Smoking packs per day: 1 Smoking cigarettes per day: 20.0 Years smoked: 30 Smoking pack-years: 30.00 Smoking status: Former smoker Alcohol intake: never Substance use: never Substance use type: does not use Gender identity (if verbalized by the patient): Female Spiritual care concerns: No Meds Home Medications and Allergies Home Medications Medication Instructions Recorded Confirmed Type [id number]-[id number]-vptqghq 2 cap PO AC cap 08/13/19
[2021-04-03] MEDS: PREGABALIN (*CRX) 75 MG CAPSULE 150 MG PO (17:01)
[2021-04-03] MEDS: BUDESONIDE RESPULE NEB 0.5 MG/2 ML AMP INHALATION (20:27)
[2021-04-03] MEDS: traZODone HCL 50 MG TABLET 300 MG PO (20:40)
[2021-04-04] VITALS (9 sets, daily range): BP systolic 117–130; BP diastolic 56–72; PULSE 73–84; RESP 16–18; TEMP 36–36.7; O2SAT 95–98
[2021-04-04 05:51] LABS: Basophils Percent Auto 0.5 % (0.2-1.2); Eosinophils Absolute Auto 0.8 K/mm3 (0-0.3); Eosinophils Percent Auto 9.8 % (0-4.4); Hematocrit 30.8 % (37.0-47.0); Hemoglobin 9.6 g/dL (12.0-15.0); Immature Granulocyte Absolute 0.03 K/mm3 (0.00-0.031); Immature Granulocyte Percent A 0.4 % (0-0.5); Lymphocytes Absolute Auto 1.87 K/mm3 (0.9-3.2); Lymphocytes Percent Auto 23.4 % (18.3-44.2); Mean Corpuscular HGB Conc 31.2 g/dl (32-36); Mean Corpuscular Hemoglobin 29.4 pg (26-34); Mean Corpuscular Volume 94.5 fl (80-100); Mean Platelet Volume 11.1 fl (7.4-10.4); Monocytes Absolute Auto 0.7 K/mm3 (0.1-0.6); Monocytes Percent Auto 8.3 % (2.6-8.5); Neutrophils Absolute Auto 4.6 K/mm3 (1.3-6.7); Neutrophils Percent Auto 57.6 % (45.5-73.1); Platelet Count Result 244 k/mm3 (150-375); Red Blood Count 3.26 M/mm3 (4.2-5.4)
[2021-04-04 06:07] LABS: Anion Gap 7 mmol/L (8-16); Blood Urea Nitrogen 10 mg/dL (7-17); Calcium 8.8 mg/dL (8.4-10.2); Carbon Dioxide 38 mmol/L (22-30); Chloride 92 mmol/L (98-107); Estimated CRCL calculation 72 ml/min; Estimated Glomerular Filt Rate > 60; Glucose 144 mg/dL (65-105); Magnesium 1.5 mg/dL (1.6-2.3); Potassium 4.1 mmol/L (3.4-5.0); Sodium 137 mmol/L (137-145)
[2021-04-04] MEDS: traMADol HCL (*CRX) 50 MG TABLET PO ×2 (06:10→15:27)
[2021-04-04] MEDS: LIPASE/AMYLASE/PROTEASE 12,000 UNITS CAP 2 CAP PO ×3 (06:11→16:08)
[2021-04-04] MEDS: BUDESONIDE RESPULE NEB 0.5 MG/2 ML AMP INHALATION ×2 (07:24→19:44)
[2021-04-04] MEDS: PREGABALIN (*CRX) 75 MG CAPSULE 150 MG PO ×2 (08:29→16:08)
[2021-04-04] MEDS: ATORVASTATIN 40 MG TABLET 80 MG PO (08:30)
[2021-04-04] MEDS: ASPIRIN 81 MG CHEWABLE TABLET PO (08:30)
[2021-04-04] MEDS: DULoxetine HCL 60 MG CAPSULE.DR PO (08:31)
[2021-04-04] MEDS: FERROUS SULFATE 324 MG TABLET PO (08:31)
[2021-04-04] MEDS: FOLIC ACID 1 MG TABLET PO (08:32)
[2021-04-04] MEDS: MAGNESIUM SULF 2 GM/WATER 50ML 2 GM/50 ML BAG IVPB (09:15)
[2021-04-04] MEDS: ENOXAPARIN 40 MG/0.4 ML SYRINGE SUB-Q (09:18)
[2021-04-04] MEDS: ACETAMINOPHEN 325 MG TABLET 650 MG PO (11:41)
--- NOTE | 2021-04-04 13:46 | PM.IMPN ---
Progress Note: A&P Assessment and Plan (1) Falls: Qualifiers: Encounter type: initial encounter Qualified Code(s): W19.XXXA - Unspecified fall, initial encounter Code(s): W19.XXXA - Unspecified fall, initial encounter Status: Acute Assessment and Plan: Patient notes her chronic pain is not any worse than normal and denies injury to any particular area. CT brain with no acute findings. PT/OT evaluations for discharge planning. Lives at assisted living. (2) Urinary tract infection: Qualifiers: Hematuria presence: without hematuria Urinary tract infection type: acute cystitis Qualified Code(s): N30.00 - Acute cystitis without hematuria Code(s): N39.0 - Urinary tract infection, site not specified Status: Acute Assessment and Plan: Continue IV rocephin (day 2). Urine culture pending. (3) COPD (chronic obstructive pulmonary disease): Qualifiers: COPD type: unspecified COPD Qualified Code(s): J44.9 - Chronic obstructive pulmonary disease, unspecified Code(s): J44.9 - Chronic obstructive pulmonary disease, unspecified Status: Chronic Assessment and Plan: No acute issues. Continue her home Pulmicort. Atrovent HFA unavailable will hold for now. Albuterol PRN. (4) Chronic hypoxemic respiratory failure: Code(s): J96.11 - Chronic respiratory failure with hypoxia Status: Chronic Assessment and Plan: Tolerating her home O2 requirement without acute issues. (5) Back pain: Qualifiers: Back pain location: low back pain Chronicity: chronic Back pain laterality: midline Sciatica presence: without sciatica Qualified Code(s): M54.5 - Low back pain; G89.29 - Other chronic pain Code(s): M54.9 - Dorsalgia, unspecified Status: Chronic Assessment and Plan: Continue her pain regimen for her chronic back and shoulder pain. Subjective Date/time seen: 04/04/21 13:15 Interval history: Ms. Walton is a 76yo F admitted for UTI, falls at home. She feels well today. She reports chronic bilateral shoulder discomfort with movement. She denies chest pain or shortness of breath. She is tolerating oral intake without nausea or vomiting. Review of Systems Review of Systems: All systems reviewed & are unremarkable except as noted in HPI and below Exam Narrative: Exam Narrative: General: Female resting comfortably supine in bed in no acute distress. HEENT: Normocephalic, EOMI, PERRL, oral mucosa moist. Neck: Supple. Chest: Diminished breath sounds bilaterally. Respirations are even and nonlabored. Tolerating her home O2 requirement. Heart: Heart rate and rhythm regular with S1-S2. Abdomen: Protuberant but soft, nontender, nondistended, bowel sounds present. Skin: Warm, dry, no rashes or lesions noted on limited exam. Dry flaky skin to bilateral lower legs. Extremities: Peripheral pulses intact. Trace pretibial edema without pain to palpation. Neurologic: Awake and alert; answer questions appropriately. No focal neurological deficits are appreciated. Speech is clear. Psychiatric: Pleasant and cooperative. Objective Data Vital Signs Vital Signs: Last Vital Signs Temp 96.8 F L 04/04/21 06:04 Pulse 73 04/04/21 07:33 Resp 18 04/04/21 07:24 BP 130/64 04/04/21 06:04 Pulse Ox 95 04/04/21 07:24 Intake/Output Intake/Output: Intake & Output 04/01/21 04/02/21 04/03/21 04/04/21 23:59 23:59 23:59 23:59 Intake Total 780 150 Output Total 350 Balance 430 150 Meds/Results Medications: Active Medications Generic Name Dose Route Start Last Admin Trade Name Wilemr PRN Reason Stop Dose Admin Acetaminophen 650 mg 04/03/21 09:27 04/04/21
[2021-04-04] MEDS: diphenhydrAMINE HCl CAP 25 MG CAPSULE PO ×2 (16:08→22:59)
[2021-04-04] MEDS: rOPINIRole HCL 1 MG TABLET 3 MG PO (20:34)
[2021-04-04] MEDS: traZODone HCL 50 MG TABLET 300 MG PO (20:35)
[2021-04-04] MEDS: TOLNAFTATE 1% POWDER 45 GM BTL 1 APPLIC TOPICAL (20:35)
[2021-04-05 05:29] VITALS: BP 148/83; PULSE 90; RESP 20; TEMP 36.2; O2SAT 93
[2021-04-05 05:33] LABS: Hematocrit 31.3 % (37.0-47.0); Hemoglobin 9.8 g/dL (12.0-15.0)
[2021-04-05] MEDS: LIPASE/AMYLASE/PROTEASE 12,000 UNITS CAP 2 CAP PO ×2 (05:38→13:02)
[2021-04-05 05:44] LABS: Anion Gap 7 mmol/L (8-16); Blood Urea Nitrogen 12 mg/dL (7-17); Carbon Dioxide 37 mmol/L (22-30); Chloride 89 mmol/L (98-107); Estimated CRCL calculation 63 ml/min; Estimated Glomerular Filt Rate > 60; Glucose 160 mg/dL (65-105); Magnesium 1.4 mg/dL (1.6-2.3); Sodium 133 mmol/L (137-145)
[2021-04-05] MEDS: MAGNESIUM SULFATE 3GM/D5W100ML 3 GM/100 ML BAG IVPB (08:33)
[2021-04-05] MEDS: ATORVASTATIN 40 MG TABLET 80 MG PO (08:34)
[2021-04-05] MEDS: DULoxetine HCL 60 MG CAPSULE.DR PO (08:34)
[2021-04-05] MEDS: FERROUS SULFATE 324 MG TABLET PO (08:34)
[2021-04-05] MEDS: ASPIRIN 81 MG CHEWABLE TABLET PO (08:34)
[2021-04-05] MEDS: FOLIC ACID 1 MG TABLET PO (08:34)
[2021-04-05] MEDS: TOLNAFTATE 1% POWDER 45 GM BTL 1 APPLIC TOPICAL (08:35)
[2021-04-05] MEDS: PREGABALIN (*CRX) 75 MG CAPSULE 150 MG PO (08:36)
[2021-04-05] MEDS: diphenhydrAMINE HCl CAP 25 MG CAPSULE PO (09:35)
[2021-04-05] MEDS: ENOXAPARIN 40 MG/0.4 ML SYRINGE SUB-Q (09:35)
[2021-04-05 09:45] VITALS: O2SAT 93
[2021-04-05] MEDS: BUDESONIDE RESPULE NEB 0.5 MG/2 ML AMP INHALATION (10:21)
[2021-04-05 10:22] VITALS: PULSE 83; RESP 18; O2SAT 93
[2021-04-05 10:31] VITALS: PULSE 84; RESP 18
[2021-04-05 13:27] LABS: Magnesium 2.1 mg/dL (1.6-2.3)
--- NOTE | 2021-04-05 14:04 | PM.DS ---
DS: Admitting Diagnosis Admitting Diagnosis Admitting Diagnosis: UTI DS: Discharge Diagnosis Discharge Diagnosis (1) Falls: Qualifiers: Encounter type: initial encounter Qualified Code(s): W19.XXXA - Unspecified fall, initial encounter Code(s): W19.XXXA - Unspecified fall, initial encounter Status: Acute Assessment and Plan: Date of Admission 04/03/21 Date of Discharge 04/05/21 Ms. Champagne is a 76yo F with history of COPD, chronic interstitial lung disease on 2L home O2, CHF, hypertension, dyslipidemia, peripheral vascular disease who presented to the ED after a fall at assisted living. She noted she had fallen 3 times recently. She reported urinary incontinence and dysuria in the few days prior to arrival. Urine culture grew E coli. She was treated for UTI with 3 days of IV rocephin and discharged with oral cefdinir to complete the course. She was tolerating her home oxygen requirement without acute respiratory issues. She noted chronic bilateral shoulder pain for which she follows with Dr Machuca's office for injections. We recommended following up with his office after discharge. She walked 30' contact guard assist with therapy. Home health therapy was arranged to come to her assisted living to continue PT/OT. She was feeling well and was hemodynamically stable for discharge on 04/05/21 with instructions to follow up with PCP and Dr Machuca's office. Patient notes her chronic pain is not any worse than normal and denies injury to any particular area. CT brain with no acute findings. Discharged back to assisted living with home health arranged for continued PT/OT. (2) Urinary tract infection: Qualifiers: Hematuria presence: without hematuria Urinary tract infection type: acute cystitis Qualified Code(s): N30.00 - Acute cystitis without hematuria Code(s): N39.0 - Urinary tract infection, site not specified Status: Acute Assessment and Plan: Urine culture grew E coli. Received 3 days IV ceftriaxone, discharged with oral cefdinir. Symptoms resolved with initiation of abx. (3) COPD (chronic obstructive pulmonary disease): Qualifiers: COPD type: unspecified COPD Qualified Code(s): J44.9 - Chronic obstructive pulmonary disease, unspecified Code(s): J44.9 - Chronic obstructive pulmonary disease, unspecified Status: Chronic Assessment and Plan: No acute issues. Continue her home Pulmicort. Albuterol PRN. (4) Chronic hypoxemic respiratory failure: Code(s): J96.11 - Chronic respiratory failure with hypoxia Status: Chronic Assessment and Plan: Tolerating her home O2 requirement without acute issues. (5) Back pain: Qualifiers: Back pain location: low back pain Chronicity: chronic Back pain laterality: midline Sciatica presence: without sciatica Qualified Code(s): M54.5 - Low back pain; G89.29 - Other chronic pain Code(s): M54.9 - Dorsalgia, unspecified Status: Chronic Assessment and Plan: Continue her pain regimen for her chronic back and shoulder pain. DS: Summary Hospital Course Hospital Course: See above Time Spent with Patient Time attestation: Total time spent providing and/or coordinating discharge services: 35 minutes Exam Narrative: Exam Narrative: General: Female resting comfortably supine in bed in no acute distress. HEENT: Normocephalic, EOMI, PERRL, oral mucosa moist. Neck: Supple. Chest: Diminished breath sounds bilaterally. Respirations are even and nonlabored. Tolerating her home O2 requirement. Heart: Heart rate and rhythm regular with S1-S2. Abdomen: Protuberant but soft, nontender, nondistended, bowel sounds present. Skin: Warm, dry, no
[2021-04-05 14:20] VITALS: BP 119/89; PULSE 85; RESP 16; TEMP 36.1; O2SAT 97
== END 2021-04-05 15:52 | disposition home health service (06) ==
LOC: ANHED 04-03 00:22 → ANH3MED 04-03 05:17
PROVIDERS: Physician Assistant; Admitting Provider Internal Medicine; Emergency Provider Emergency Medicine; PCP Internal Medicine; Visit Provider Internal Medicine
DX: N39.0 Urinary tract infection, site not specified (principal); I11.0 Hypertensive heart disease with heart failure; I50.9 Heart failure, unspecified; I73.9 Peripheral vascular disease, unspecified; J96.11 Chronic respiratory failure with hypoxia; J43.9 Emphysema, unspecified; K21.9 Gastro-esophageal reflux disease without esophagitis; E78.5 Hyperlipidemia, unspecified; M81.0 Age-related osteoporosis without current pathological fracture; M16.0 Bilateral primary osteoarthritis of hip; M25.511 Pain in right shoulder; M54.9 Dorsalgia, unspecified; M25.512 Pain in left shoulder; N32.81 Overactive bladder; R29.6 Repeated falls; R73.03 Prediabetes; F03.90 Unspecified dementia, unspecified severity, without behavioral disturbance, psychotic disturbance, mood disturbance, and anxiety; F41.9 Anxiety disorder, unspecified; F32.9 Major depressive disorder, single episode, unspecified; Z86.73 Personal history of transient ischemic attack (TIA), and cerebral infarction without residual deficits; Z87.11 Personal history of peptic ulcer disease; Z99.81 Dependence on supplemental oxygen; Z90.49 Acquired absence of other specified parts of digestive tract; Z90.710 Acquired absence of both cervix and uterus; Z98.1 Arthrodesis status; Z87.891 Personal history of nicotine dependence
CPT/HCPCS: 36415; 70450; 71046; 73521; 80048; 81001; 83735; 83880; 85014; 85018; 85025; 87077; 87086; 87186; 94640; 96365; 96372; 96375; 97110; 97161; 97165; 97530; 97535; 99285; A9270; G0378; J0696; J1650; J3475

== ENCOUNTER 2021-04-06 06:43 | Emergency (ER) | payer MEDICARE, MEDICAID, SELFPAY ==
[2021-04-06] VITALS (21 sets, daily range): BP systolic 116–188; BP diastolic 55–149; PULSE 74–98; RESP 11–21; TEMP 36.7; O2SAT 92–100
--- NOTE | ~2021-04-06 | XR_ITS ---
XR knee RT 3V DATE: 04/06/2021 07:47 INDICATION: Right knee pain following injury from fall TECHNIQUE: 3 views including crosstable lateral COMPARISON: None FINDINGS: Mild tricompartment osteoarthritic arthritis. There is chondrocalcinosis at the medial and lateral compartments. No fracture or dislocation or joint effusion. No periosteal reaction or bone destruction. IMPRESSION: Tricompartment osteoarthritic arthritis Chondrocalcinosis No fracture, dislocation or joint effusion Reviewed, dictated and finalized at location A.
--- NOTE | ~2021-04-06 | XR_ITS ---
XR hip RT 2V w AP pelvis DATE: 04/06/2021 07:47 INDICATION: Fall. Pelvic, right hip pain TECHNIQUE: AP pelvis. AP and lateral views of the right hip. COMPARISON: 04/04/2021 AP pelvis and bilateral hips FINDINGS: Diffuse osteopenia. Bilateral hip primary osteoarthritis, more severe on the right. The pubic symphysis and sacroiliac joints are intact. No pelvic fracture or bone destruction is detec leatha. No fracture, dislocation, avascular necrosis or bone destruction of either hip. Mild rotatory dextroscoliosis and multilevel degenerative disc disease of the lumbar spine. Status po st interbody spinal fusion at L4-5. IMPRESSION: Osteopenia Multilevel degenerative disc disease Mild rotatory dextro scoliosis of the lumbar spine Status post interbody spinal fusion at L4-5 No pelvic fracture or right hip fracture or dislocation Bilateral hip primary osteoarthritis, greater on the right Reviewed, dictated and finalized at location A.
--- NOTE | ~2021-04-06 | CT_ITS ---
EXAMINATION: CT brain wo con DATE: 04/06/2021 14:17 INDICATION: Fall. Generalized headache, confusion TECHNIQUE: Computed tomography (CT) of the head was performed without intravenous contrast. The mA wa s adjusted according to patient size. Iterative reconstruction technique was employed. Exam dose: 60 5.33 mGy-cm total exam DLP. COMPARISON: 04/03/2021 CT brain FINDINGS: No intracranial mass lesion or hemorrhage or recent cerebrovascular accident. No midline sh ift or mass effect. There is intracranial cerebral atherosclerosis. There is nonspecific patchy dimin ished attenuation of the cerebral white matter, likely due to chronic small vessel ischemic changes. No subdural or epidural hematoma is detected. No fracture or bone destruction of the cranial vault. Included paranasal sinuses and the mastoid air cells are normally developed and aerated. IMPRESSION: Cerebral atherosclerosis and chronic small vessel ischemic changes of the cerebral white matter No acute intracranial finding Reviewed, dictated and finalized at Location A. Reviewed, dictated and finalized at location A.
[2021-04-06] MEDS: HYDROcodone/acetaminophen (*CRX) 5-325 MG TABLET 1 TAB PO (07:29)
--- NOTE | 2021-04-06 07:29 | ED.FALL ---
HPI - Fall General Chief Complaint: Fall Stated Complaint: Fall - skin tear to arm Time Seen by Provider: 04/06/21 07:02 Source: patient Mode of arrival: EMS Limitations: no limitations History of Present Illness HPI Narrative: Patient is a 76-year-old female complaining of right hip and right knee pain after she tripped and fell while going the bathroom prior to arrival. Patient states that she lives in assisted living facility and the door to the bathroom was broken and it swung to her face and she fell on her right side. Patient denies any head, neck, back, chest, abdomen or any other extremity pain/injury. Related Data Home Medications Medication Instructions Recorded Confirmed [id number]-[id number]-oxivagp 2 cap PO AC cap 08/13/19 04/03/21 12,000-38,000-60,000 unit capsule,delayed rel dicyclomine 10 mg capsule 10 mg PO QID PRN 04/24/20 04/03/21 prochlorperazine maleate 10 mg 10 mg PO Q8H PRN 04/24/20 04/03/21 tablet Atrovent HFA 2 puff INHALATION QID 04/03/21 04/03/21 azelastine 137 mcg INTRANASAL Q12H 04/03/21 04/03/21 omeprazole 40 mg PO DAILY 04/03/21 04/03/21 Allergies Allergy/AdvReac Type Severity Reaction Status Date / Time No Known Allergies Allergy Unknown Verified 04/03/21 06:27 Review of Systems Review of Systems: All systems reviewed & are unremarkable except as noted in HPI and below Constitutional: Constitutional: Denies body ache(s), Denies chills, Denies excessive sweating, Denies fatigue, Denies fever(s), Denies headache(s), Denies lethargy, Denies malaise, Denies weakness and Denies weight loss Eyes: Eyes: Denies blurry vision, Denies change in vision and Denies loss of vision ENT: Denies dizziness, Denies ear discharge, Denies headache(s), Denies lip swelling, Denies epistaxis, Denies nasal congestion, Denies neck pain, Denies throat swelling and Denies tongue swelling Cardiovascular: Cardiovascular: Denies chest pain, Denies chest pain at rest, Denies chest pain with activity, Denies diaphoresis, Denies rapid heart rate, Denies edema, Denies irregular heart rhythm, Denies lightheadedness, Denies palpitations, Denies dyspnea and Denies dyspnea on exertion Respiratory: Respiratory: Denies chest congestion, Denies cough, Denies hemoptysis, Denies dyspnea and Denies dyspnea on exertion Gastrointestinal: Gastrointestinal: Denies abdominal pain, Denies melena, Denies hematochezia, Denies diarrhea, Denies nausea, Denies vomiting and Denies hematemesis Musculoskeletal: Musculoskeletal: Denies abnormal gait, Denies deformity, Denies joint swelling, Denies limited range of motion, Denies neck pain and Denies numbness Neurologic: Denies Abnormal speech present, Denies abnormal gait, Denies confusion, Denies dizziness, Denies headache(s), Denies focal weakness, Denies loss of vision, Denies numbness, Denies Other visual disturbances, Denies Sensory deficit (Neuro) and Denies weakness Psychiatric: Psychiatric: Denies confusion, Denies depression, Denies auditory hallucinations, Denies homicidal ideation and Denies suicidal ideation Endocrine: Endocrine: Denies cold intolerance, Denies excessive sweating, Denies fatigue, Denies heat intolerance and Denies palpitations Hematologic/Lymphatic: Hematologic/Lymphatic: Denies easy bleeding and Denies easy bruising Allergic/Immunologic: Allergic/Immunologic: Denies lip swelling, Denies throat swelling and Denies tongue swelling PMFSH Past Medical History Medical History Anemia Anxiety Arthritis Back injury Back pain Bilateral shoulder pain Bronchitis CHF (congestive heart failure) COPD (chronic obstructive pulmonary disease) On home O2 3L Degenerative joint disease of both hips Degenerative joint disease of right hip Dementia Depression 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 DJD of shoulder Emphysema of lung GERD (gastroesophageal reflux disease) GI bleed H/O ulcer disease Herniated disc HLD (
--- NOTE | 2021-04-06 07:33 | PC.NURSE ---
Pt taken to xray
--- NOTE | 2021-04-06 08:31 | PC.NURSE ---
Skin tear to left forearm cleansed and dressed using antibiotic ointment, gauze and telfa. Given ice pack to help with left shoulder pain.
--- NOTE | 2021-04-06 08:53 | PC.NURSE ---
Attempted to call report to Natalia, nurse at at [facility]. She reports this is the patient's third fall in a month, and the facility is unable to take her back until she receives rehab. Patient's last fall was April 01. She was sent to another facility for 24 hour observation and was sent back to [facility] without coordination. Per Natalia, patient's granddaughter is also requesting rehab before returning to [facility]. Called Denice in care coordination to make her away of situation.
--- NOTE | 2021-04-06 10:20 | PC.NURSE ---
Care Coordination not ready to send pt back to [facility]. EMS no longer needed. This RN did not properly communicate to administrative secretary to cancel EMS before they arrived
--- NOTE | 2021-04-06 10:52 | PC.NURSE ---
Nancy from Care Coordination states that she has faxed pt chart to a couple facilities for rehab and will know in couple hours if she is accepted.
--- NOTE | 2021-04-06 10:59 | PCCCNOTE ---
Called and left message for pt's granddaughter at [phone] (call not returned) and again at [phone] (call not returned). Spoke with patient about potential for rehab placement and offered patient our rehab facility list for her facility selection. Patient stated that she did not know of of the places and that I should make inquiries and let her know which facility could accept her. Spoke with Tere at [facility] and faxed clinicals to her at [phone]. There is potential for them to accept the patient today. Granddaughter returned call at [phone]. Updated her (Stefanie) with plan of care. Stefanie is agreeable with the current plan of care. Updated Dr Redd and the patient. Awaiting [facility] decision
--- NOTE | 2021-04-06 11:42 | PC.NURSE ---
called and ordered patient lunch tray
--- NOTE | 2021-04-06 12:03 | PC.NURSE ---
Pt requested to call her granddaughter to come up to ED. got a hold on her and she states she will come up
--- NOTE | 2021-04-06 12:04 | PC.NURSE ---
lunch tray delivered to patient
--- NOTE | 2021-04-06 13:31 | PC.NURSE ---
Granddaughter at bedside. Pt is complaining of headache and nausea at this time. Pt is slightly confused, not baseline per granddaughter. Pt is now telling granddaughter that she hit her head with fall this AM. made aware, ordered STAT head CT scan.
--- NOTE | 2021-04-06 13:39 | PC.NURSE ---
Nancy from Care Coordination states that she is still waiting for authorization from facility
--- NOTE | 2021-04-06 13:59 | PC.NURSE ---
Pt taken by transport going to CT scan
[2021-04-06] MEDS: ONDANSETRON HCL ODT 4 MG TABLET PO (14:41)
--- NOTE | 2021-04-06 14:56 | PC.NURSE ---
Attempted to call [employer] x3. No answer, no option to leave message.
--- NOTE | 2021-04-06 15:06 | PC.NURSE ---
Called JD Sanderson at [facility] x2. No answer. Left a message requesting call back.
--- NOTE | 2021-04-06 15:58 | PC.NURSE ---
[facility] Trip # [id number]
== END 2021-04-06 17:05 ==
PROVIDERS: Emergency Provider Emergency Medicine; PCP Internal Medicine
DX: S76.011A Strain of muscle, fascia and tendon of right hip, initial encounter (principal); S86.911A Strain of unspecified muscle(s) and tendon(s) at lower leg level, right leg, initial encounter; S51.812A Laceration without foreign body of left forearm, initial encounter; I50.9 Heart failure, unspecified; I11.0 Hypertensive heart disease with heart failure; J43.9 Emphysema, unspecified; Z99.81 Dependence on supplemental oxygen; M16.0 Bilateral primary osteoarthritis of hip; M19.012 Primary osteoarthritis, left shoulder; M19.011 Primary osteoarthritis, right shoulder; K21.9 Gastro-esophageal reflux disease without esophagitis; E78.5 Hyperlipidemia, unspecified; N32.81 Overactive bladder; M81.0 Age-related osteoporosis without current pathological fracture; I73.9 Peripheral vascular disease, unspecified; Z86.73 Personal history of transient ischemic attack (TIA), and cerebral infarction without residual deficits; Z87.440 Personal history of urinary (tract) infections; R73.03 Prediabetes; Z98.1 Arthrodesis status; Z87.891 Personal history of nicotine dependence; M85.88 Other specified disorders of bone density and structure, other site; M51.36 Other intervertebral disc degeneration, lumbar region; M11.211 Other chondrocalcinosis, right shoulder; W01.0XXA Fall on same level from slipping, tripping and stumbling without subsequent striking against object, initial encounter
CPT/HCPCS: 70450; 73502; 73562; 99284; A9270

== ENCOUNTER 2021-04-17 18:38 | Inpatient (IN) | payer MEDICARE, MEDICAID, SELFPAY ==
[2021-04-17] VITALS (21 sets, daily range): BP systolic 92–157; BP diastolic 41–105; PULSE 112–134; RESP 14–27; TEMP 38.3; O2SAT 92–99; BMI 34.7
--- NOTE | ~2021-04-17 | XR_ITS ---
EXAMINATION: XR chest 1V portable DATE: 04/17/2021 19:04 INDICATION: Fever and shortness of breath TECHNIQUE: frontal view of the chest was obtained. COMPARISON: Chest radiograph dated 04/03/2021 and 09/08/[address] dated 05/11/2020 FINDINGS: Chronic elevation of the right hemidiaphragm. Persistent opacities in the left mid and lower lung zon es. No significant interval change in chronic opacities at the periphery of the right upper lung zone and at the left mid and lower lung zones consistent with chronic interstitial lung disease. The opac ities in the left midlung zone appear more confluent than on the prior studies and cannot exclude sup erimposed pneumonia. No pleural effusion or pneumothorax. The cardiomediastinal silhouette is within normal limits for AP technique. Plain screw fixation for lower cervical anterior spinal fusion. Ather osclerotic calcification is at the left carotid bulb. IMPRESSION: 1. Relatively stable appearance of chronic bilateral interstitial lung disease with the exception of the left midlung zone where the opacities appear more confluent and could not exclude superimposed pn eumonia. Reviewed, dictated and finalized at location A. IMPRESSION: 1. Relatively stable appearance of chronic bilateral interstitial lung disease with the exception of the left midlung zone where the opacities appear more con fluent and could not exclude superimposed pneumonia.
--- NOTE | ~2021-04-17 | US_ITS ---
EXAMINATION:US venous doppler LE BI INDICATION:Leg edema TECHNIQUE: Multiple grayscale, color flow and Doppler images of the right and left lower extremity de ep venous systems were obtained and reviewed. COMPARISON:No prior studies for comparison. FINDINGS: The common femoral, superficial femoral and popliteal veins demonstrate normal respiratory variation, augmentation and compressibility. Color flow is also seen within the posterior tibial, pe roneal, greater saphenous and profunda veins. IMPRESSION: 1: No lower extremity deep venous thrombosis. Reviewed, dictated and finalized at location A.
--- NOTE | ~2021-04-17 | XR_ITS ---
EXAMINATION: XR wrist RT 2V EXAM DATE: 04/26/2021 12:37 INDICATION: Initial encounter following injury, with pain of the right wrist. TECHNIQUE: Frontal and lateral projections of the right wrist. There is no prior study for comparis on. FINDINGS: There is moderate right triscaphe and 1st carpometacarpal primary osteoarthritis. There is distal ulnar enchondroma, benign. There are no acute fractures or dislocations identified. There is no subcutaneous gas. The soft tissue is unremarkable. There are no radiopaque foreign bodies. IMPRESSION: 1. XR wrist RT 2V exam without acute osseous findings. 2. Moderate triscaphe, 1st CMC osteoarthritis. 3. Ulnar enchondroma. Reviewed, dictated and finalized at location B.
--- NOTE | ~2021-04-17 | CT_ITS ---
EXAMINATION: CT abdomen pelvis wo con DATE: 04/17/2021 21:53 INDICATION: Abdominal pain TECHNIQUE: Computed tomography (CT) of the abdomen and pelvis was performed without intravenous contr ast. The dose-length product (DLP) was 1349.63 mGy-cm. Automated exposure control and iterative recon struction technique were employed. COMPARISON: 08/10/2019 FINDINGS: Evaluation of the lung bases is limited by motion artifact. Mild dependent atelectasis is n oted. Cardiomegaly is noted. Punctate calcifications in an otherwise normal spleen likely represent h ealed granulomatous disease. The gallbladder is surgically absent. The liver, pancreas, and left adre nal gland are normal. There is an adenoma of the right adrenal gland. Hypoattenuating lesions in the kidneys, measuring up to 10 mm, are too small to characterize but likely represent cysts. Contrast fr om earlier CT partially opacifies the urinary tract. There is diffuse wall thickening of the colon. T here is no free intraperitoneal gas or evidence of bowel obstruction. No pathologically enlarged abdo cristo or pelvic lymph nodes are identified. There are changes of anterior fusion at L4-5. Severe lumb ar spondylosis is noted elsewhere. IMPRESSION: 1. Findings consistent with pancolitis. Reviewed, dictated and finalized at location A.
--- NOTE | ~2021-04-17 | CT_ITS ---
EXAMINATION: CTA chest PE protocol DATE: 04/17/2021 20:03 INDICATION: Tachycardia and leukocytosis. TECHNIQUE: Computed tomography (CT) pulmonary angiogram of the chest was performed with 100 mL Omnipa que-350 intravenous contrast. Additional 3D reconstructions utilizing coronal maximum intensity proje ction (MIP) were performed. Automated exposure control and iterative reconstruction technique were em ployed. The dose-length product was 661.02 mGy-cm. COMPARISON: 05/11/2020 FINDINGS: Excellent contrast opacification of the pulmonary arteries. There is mild streak artifact from dense contrast in the superior vena cava and right atrium. Eyal respiratory motion artifact from both lungs which decreases sensitivity in the segmental pulmonary arteries and rendered dilation of the more pe ripheral subsegmental pulmonary arteries is essentially nondiagnostic throughout much of the lungs. N o definite pulmonary embolism. No interval change in the peripheral predominant pattern of reticular and mild groundglass opacities with associated peripheral honeycombing most prominent in the anterola teral left and right upper lobes consistent with chronic interstitial lung disease with usual interst itial pneumonia (UIP) pattern. No new opacities to suggest pneumonia or pulmonary edema. No pleural e ffusion or pneumothorax. Cardiomegaly. No pericardial effusion. Enlargement of the central pulmonary arteries consistent with pulmonary arterial hypertension. Thoracic aorta is normal in caliber with no dissection. There is wall thickening with inflammatory stranding at the periphery of the hepatic fle xure the colon consistent with colitis. Diffuse hepatic steatosis. Cholecystectomy clips the gallblad bradford fossa. A few small splenic calcific lesions consistent with old granulomatous disease. Mild thora cic spondylosis. Plate and screw fixation for anterior spinal fusion at C6-C7. IMPRESSION: 1. No evident pulmonary embolism or other acute cardiopulmonary disease. Sensitivity for pulmonary em bolism is however decreased in the segmental pulmonary arteries and essentially nondiagnostic and man y of the subsegmental pulmonary arteries due to prominent respiratory motion artifact. 2. Stable appearance of chronic peripheral predominant interstitial lung disease with UIP pattern. 3. Cardiomegaly with enlargement of the central pulmonary arteries consistent with pulmonary arterial hypertension. 4. Wall thickening and inflammatory stranding at the hepatic flexure of the colon consistent with col itis. Reviewed, dictated and finalized at location A. IMPRESSION: 1. No evident pulmonary embolism or other acute cardiopulmonary disease. Sensit ivity for pulmonary embolism is however decreased in the segmental pulmonary ar teries and essentially nondiagnostic and many of the subsegmental pulmonary art eries due to prominent respiratory motion artifact. 2. Stable appearance of chronic peripheral predominant interstitial lung diseas e with UIP pattern. 3. Cardiomegaly with enlargement of the central pulmonary arteries consistent w ith pulmonary arterial hypertension. 4. Wall thickening and inflammatory stranding at the hepatic flexure of the col on consistent with colitis.
--- NOTE | ~2021-04-17 | XR_ITS ---
EXAMINATION: XR abdomen obstructive series DATE: 04/20/2021 09:21 INDICATION: Pancolitis. Marked leukocytosis. TECHNIQUE: Frontal supine and upright views of the abdomen were obtained. COMPARISON: CT dated 04/17/2021 FINDINGS: Small amount of gas scattered throughout nondilated large and small bowel in the abdomen and pelvis. No free intraperitoneal gas. Cholecystectomy clips in the right upper quadrant. Airspace opacities with some air bronchograms in the medial right lower lung zone along the elevated right hemidiaphragm which could represent atelectasis and/or pneumonia. Cardiomegaly. Increased density of the distended bladder likely reflecting residual excreted contrast from earlier contrast-enhanced CT. Mild S-shape d curvature of the lumbar and lower thoracic spine with severe spondylosis. Anterior fusion with inte rbody bone graft cages at L4-L5. IMPRESSION: 1. No free intraperitoneal gas or dilated gas-filled loops of bowel to suggest obstruction. 2. Opacities with air bronchograms at the right lower lung zone which could represent atelectasis and /or pneumonia. 3. Cardiomegaly. Reviewed, dictated and finalized at location A. IMPRESSION: 1. No free intraperitoneal gas or dilated gas-filled loops of bowel to suggest obstruction. 2. Opacities with air bronchograms at the right lower lung zone which could rep resent atelectasis and/or pneumonia. 3. Cardiomegaly.
--- NOTE | ~2021-04-17 | XR_ITS ---
EXAMINATION: XR abdomen obstructive series EXAM DATE: 04/22/2021 17:32 INDICATION: Abdominal distention. Pancolitis on CT abdomen pelvis. TECHNIQUE: Frontal projection of the upper abdomen, frontal projection lower abdomen/pelvis for inter pretation. Comparison is made to prior examination from 04/20/2021. FINDINGS: Small amount of colonic stool and gas. No small bowel dilation, nonobstructive bowel gas pattern. There are no suspicious calcifications identified. There is no organomegaly suspected. There is moderate thoracolumbar scoliosis and moderate to severe spondylosis. L4-5 interbody fusion. No evidence of free intraperitoneal gas. IMPRESSION: Nonspecific, but nonobstructive bowel gas pattern. Reviewed, dictated and finalized at location A.
--- NOTE | 2021-04-17 18:46 | ECG_ITS ---
Measurements Intervals [place] Rate: 125 P: 42 SD: 138 QRS: 45 QRSD: 86 T: 31 QT: 297 QTc: 429 Interpretive Statements SINUS TACHYCARDIA FREQUENT ATRIAL PREMATURE COMPLEXES INCOMPLETE RIGHT BUNDLE BRANCH BLOCK DELAYED PRECORDIAL R/S TRANSITION LOW QRS VOLTAGE IN PRECORDIAL LEADS MINIMAL Q WAVES- INFERIOR LEADS BASELINE WANDER- I, II, AVR, AVF, V1-V6 ABNORMAL ECG Electronically Signed On 04-18-2021 7:21:35 CDT by Kole Carey D.O.
[2021-04-17 19:02] LABS: Basophils Absolute Auto 0.1 K/mm3 (0.0-0.1); Basophils Percent Auto 0.2 % (0.2-1.2); Eosinophils Absolute Auto 0.1 K/mm3 (0-0.3); Eosinophils Percent Auto 0.1 % (0-4.4); Hematocrit 33.4 % (37.0-47.0); Hemoglobin 10.4 g/dL (12.0-15.0); Lymphocytes Absolute Auto 1.19 K/mm3 (0.9-3.2); Lymphocytes Percent Auto 3.5 % (18.3-44.2); Mean Corpuscular HGB Conc 31.1 g/dl (32-36); Mean Corpuscular Hemoglobin 29.5 pg (26-34); Mean Corpuscular Volume 94.9 fl (80-100); Mean Platelet Volume 10.9 fl (7.4-10.4); Monocytes Absolute Auto 2.4 K/mm3 (0.1-0.6); Monocytes Percent Auto 6.9 % (2.6-8.5); Neutrophils Percent Auto 87.3 % (45.5-73.1); Platelet Count Result 379 k/mm3 (150-375); Red Blood Count 3.52 M/mm3 (4.2-5.4); Red Cell Distribution Width 14.5 % (11.5-14.5); White Blood Count 34.4 K/mm3 (4.5-10.0)
[2021-04-17 19:14] LABS: Lactic Acid Reflex 1.1 mmol/L (0.7-2.1)
[2021-04-17 19:18] LABS: Alanine Aminotransferase 24 U/L (4-35); Albumin Level 3.3 g/dL (3.5-5.1); Alkaline Phosphatase 79 U/L (38-126); Anion Gap 7 mmol/L (8-16); Aspartate Amino Transferase 31 U/L (14-36); Bilirubin,Total 0.7 mg/dL (0.2-1.3); Blood Urea Nitrogen 17 mg/dL (7-17); CRP > 9.0 mg/dL (<1.0); Calcium 7.4 mg/dL (8.4-10.2); Carbon Dioxide 35 mmol/L (22-30); Chloride 88 mmol/L (98-107); Estimated Glomerular Filt Rate > 60; Glucose 170 mg/dL (65-110); Potassium 3.9 mmol/L (3.4-5.0); Sodium 130 mmol/L (137-145)
[2021-04-17 19:23] LABS: Band Neutrophils Percent 17 % (0-6); Lymphocytes Absolute Manual 0.34 K/mm3 (1.1-4.5); Monocytes Absolute Manual 0.68 K/mm3 (0.1-0.90); Monocytes Percent Manual 2 % (3-9); Neutrophils Absolute Manual 33.36 K/mm3 (1.7-7.2); Neutrophils Percent Manual 80 % (46-73); Platelet Estimate Adequate (Adequate); Total Cells Counted 100
[2021-04-17 19:34] LABS: INR 1.1; Prothrombin Time 14.4 Seconds (11.1-14.7)
[2021-04-17 19:35] LABS: Partial Thromboplastin Time 39.4 SECONDS (22.3-36.8)
--- NOTE | 2021-04-17 19:39 | ED.GENADULT ---
HPI - General Adult General Chief complaint: Urogenital-Female Stated complaint: UTI Time Seen by Provider: 04/17/21 18:55 Source: patient, EMS and other (RN) Mode of arrival: EMS Limitations: altered mental status History of Present Illness HPI narrative: Pt presents to ER with AMS. Pt resides at [facility] and had labs drawn on 04/16/21 which showed a serum sodium of 134, chloride of 91, CO2 of 38, WBC 18.4, H/H of 10.0 and 30.4. Urinalysis had 1+ protein, urobilinogen of 2+, many bacteria, mucous/yeast present. On my initial examination pt is only oriented to person, tachycardic and wearing 2 L O2 per NC. Pt is unable to provide me with any relevant history. I attempted to contact facility where she resides multiple times for additional history and no one at facility answered. Nursing staff in this Department informed me that pt was sent in for urosepsis . Related Data Home Medications Medication Instructions Recorded Confirmed [id number] 2 cap PO AC cap 08/13/19 04/03/21 12,000-38,000-60,000 unit capsule,delayed rel dicyclomine 10 mg capsule 10 mg PO QID PRN 04/24/20 04/03/21 prochlorperazine maleate 10 mg 10 mg PO Q8H PRN 04/24/20 04/03/21 tablet Atrovent HFA 2 puff INHALATION QID 04/03/21 04/03/21 azelastine 137 mcg INTRANASAL Q12H 04/03/21 04/03/21 omeprazole 40 mg PO DAILY 04/03/21 04/03/21 Allergies Allergy/AdvReac Type Severity Reaction Status Date / Time No Known Allergies Allergy Unknown Verified 04/03/21 06:27 Review of Systems Review of Systems: ROS unobtainable: Yes unobtainable due to mental status PMFSH Past Medical History Medical History Anemia Anxiety Arthritis Back injury Back pain Bilateral shoulder pain Bronchitis CHF (congestive heart failure) COPD (chronic obstructive pulmonary disease) On home O2 3L Degenerative joint disease of both hips Degenerative joint disease of right hip Dementia Depression 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fection) Wears dentures Surgical History Surgical History H/O neck surgery 2001 History of back surgery 1999 History of bladder suspension procedure History of cardiac cath History of cholecystectomy History of hysterectomy History of lumbar fusion x2 History of tonsillectomy History of tubal ligation History of vascular surgery lt leg arteroplasty Family History Family History Father Patient's father is in good health Family history of Parkinson's disease Sibling Patient's brother is in good health Mother Family history of chronic obstructive pulmonary disease Family history of pancreatic cancer Social History Social History Smoking packs per day: 1 Smoking cigarettes per day: 20.0 Years smoked: 30 Smoking pack-years: 30.00 Smoking status: Former smoker Alcohol intake: never Substance use: never Substance use type: does not use Gender identity (if verbalized by the patient): Female Spiritual care concerns: No Exam Narrative: Exam Narrative: GENERAL: Well-appearing, well-nourished, and in no acute distress. HEAD: Normocephalic, atraumatic. EYES: PERRLA and EOMI. ENT: Nares clear, no rhinorrhea or epistaxis. Mucous membranes moist. Oropharynx without tonsillar hypertrophy exudate or other lesions. Bilateral TMs pearly genao nonbulging NECK
[2021-04-17 19:57] LABS: Add Urine Microscopic? YES; Appearance Urine Clear (Clear); Bacteria Urine Trace /hpf; Bilirubin Urine Negative (Negative); Blood Urine Negative (Negative); Budding Yeast Urine Present /hpf; Color Urine Yellow (Yellow); Glucose Urine UA Negative (Negative); Ketones Urine Negative (Negative); Leukocyte Esterase Ur Negative LEU/UL (Negative); Nitrate Urine Negative (Negative); Protein Urine 1+ mg/dL (Negative); Specific Grav Ur 1.015 (1.001-1.035); Squamous Epithelial Cell Urine Few /hpf (Few); WBC Urine 0-3 /hpf
[2021-04-17 20:06] LABS: NT Pro B Type Natriuretic Pept 380 pg/mL (5-100); Troponin I 0.013 ng/mL (0.000-0.034)
--- NOTE | 2021-04-17 21:23 | PM.IMHP ---
H&P: HPI History of Present Illness Date/Time: 04/17/21 21:23 Chief Complaint: ALTERED MENTAL STATUS Narrative: THIS IS A 76-YEAR-OLD FEMALE WITH PAST MEDICAL HISTORY SIGNIFICANT FOR COPD / EMPHYSEMA/INTERSTITIAL LUNG DISEASE, OSTEOPOROSIS, GERD, PERIPHERAL NEUROPATHY, RESTLESS LEG SYNDROME, DEGENERATIVE JOINT DISEASE, OSTEOPOROSIS. PATIENT WAS BROUGHT FROM [facility] DUE TO ALTERED MENTAL STATUS AND ABNORMAL LAB WORK SHE HAD BEEN RECENTLY DISCHARGED FROM OUR HOSPITAL DUE TO RECURRENT FALLS WELL FOUND TO HAVE URINARY TRACT INFECTION WAS DISCHARGE TO [facility] ON [facility]. PATIENT IS UNABLE TO GIVE MUCH HISTORY AT THE TIME OF MY VISIT SHE WAS CONFUSED AND DID NOT KNOW WHY SHE IS IN THE HOSPITAL. PER EMERGENCY ROOM RECORDS PATIENT WAS BROUGHT DUE TO ABNORMAL LAB WORK. CBC PANEL SHOWED A LEUKOCYTE COUNT OF 30,000. CHEMISTRY PANEL WAS SIGNIFICANT FOR SODIUM OF 130, CHLORIDE 88. A CHEST X-RAY RE DEMONSTRATED INTERSTITIAL LUNG DISEASE, CTA WAS NOT SIGNIFICANT FOR ACUTE PE. Review of Systems Review of Systems: ROS unobtainable: Yes unobtainable due to medical condition ( CONFUSED) [facility] Past Medical History Medical History Anemia Anxiety Arthritis Back injury Back pain Bilateral shoulder pain Bronchitis CHF (congestive heart failure) COPD (chronic obstructive pulmonary disease) On home O2 3L Degenerative joint disease of both hips Degenerative joint disease of right hip Dementia Depression 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fection) Wears dentures Surgical History Surgical History H/O neck surgery 2002 History of back surgery 1999 History of bladder suspension procedure History of cardiac cath History of cholecystectomy History of hysterectomy History of lumbar fusion x2 History of tonsillectomy History of tubal ligation History of vascular surgery lt leg arteroplasty Family History Family History Father Patient's father is in good health Family history of Parkinson's disease Sibling Patient's brother is in good health Mother Family history of chronic obstructive pulmonary disease Family history of pancreatic cancer Social History Social History Smoking packs per day: 1 Smoking cigarettes per day: 20.0 Years smoked: 30 Smoking pack-years: 30.00 Smoking status: Former smoker Alcohol intake: never Substance use: never Substance use type: does not use Gender identity (if verbalized by the patient): Female Spiritual care concerns: No Meds Home Medications and Allergies Home Medications Medication Instructions Recorded Confirmed Type [id number] 2 cap PO AC cap 08/13/19 04/03/21 History 12,000-38,000-60,000 unit capsule,delayed rel meclizine 12.5 mg tablet 12.5 mg PO TID PRN #30 tablet 01/02/20 04/03/21 Rx dicyclomine 10 mg capsule 10 mg PO QID PRN 04/24/20 04/03/21 History prochlorperazine maleate 10 mg 10 mg PO Q8H PRN 04/24/20 04/03/21 History tablet budesonide 0.5 mg/2 mL suspension 0.5 mg INHALATION BID #120 ml 05/01/20 04/03/21 Rx for nebulization ipratropium 0.5 mg-albuterol 3 mg 3 ml INHALATION Q6H PRN #180 ml 05/01/20 04/03/21 Rx (2.5 mg base)/3 mL nebulization soln nystatin-triamcinolone 100,000 1 applic TOPICAL BID PRN #15 gm 05/25/20 04/03/21 Rx unit/g-0.1 % topical cream guaifenesin
[2021-04-17] MEDS: SODIUM CHLORIDE 0.9% IV 1,000 ML 999 ML IV CONT (21:27)
[2021-04-17 22:34] LABS: Troponin I 0.014 ng/mL (0.000-0.034)
[2021-04-17] MEDS: metroNIDAZOLE 500 MG/ISO 100ML 500 MG/100 ML BAG 100 MG IVPB (22:47)
[2021-04-17] MEDS: FAMOTIDINE 20 MG/2 ML VIAL IV PUSH (22:49)
--- NOTE | 2021-04-17 22:58 | PC.NURSE ---
This patient, Gabbi Champagne, was admitted to 3 Med Surg Room 322-01 @ 22:40. Report taken from Carlo RODRIGUEZ. Patient/family oriented to hospital policies and general routines including ID bracelet, bed and alarms, visiting hours, pain management, procedures, bathroom and other care routines, personal items, smoking policy, room service/diet, and visiting hours. Information on how to activate the Rapid Response Team has been discussed. Patient/Family are encouraged to report perceived risks to care and to ask questions if they do not understand what they are told or what they should do.
[2021-04-17] MEDS: ALBUTEROL SULFATE NEB 2.5 MG/0.5 ML INH INHALATION (23:02)
[2021-04-18] VITALS (20 sets, daily range): BP systolic 107–142; BP diastolic 54–102; PULSE 74–131; RESP 12–22; TEMP 36.8–39.1; O2SAT 92–98
[2021-04-18] MEDS: SODIUM CHLORIDE 0.9% IV 1,000 ML 100 ML IV CONT (00:34)
[2021-04-18 00:42] LABS: Hematocrit 31.8 % (37.0-47.0); Hemoglobin 9.9 g/dL (12.0-15.0); Mean Corpuscular HGB Conc 31.1 g/dl (32-36); Mean Corpuscular Hemoglobin 29.5 pg (26-34); Mean Corpuscular Volume 94.6 fl (80-100); Mean Platelet Volume 10.8 fl (7.4-10.4); Platelet Count Result 354 k/mm3 (150-375); Red Blood Count 3.36 M/mm3 (4.2-5.4); Red Cell Distribution Width 14.5 % (11.5-14.5); White Blood Count 35.4 K/mm3 (4.5-10.0)
[2021-04-18 01:02] LABS: Band Neutrophils Percent 10 % (0-6); Monocytes Absolute Manual 1.06 K/mm3 (0.1-0.90); Monocytes Percent Manual 3 % (3-9); Neutrophils Absolute Manual 33.63 K/mm3 (1.7-7.2); Neutrophils Percent Manual 85 % (46-73); Platelet Estimate Adequate (Adequate); Total Cells Counted 100
[2021-04-18 01:03] LABS: Hypochromasia 2+ (NORMAL); Large Platelets Present; Polychromasia 1+ (NORMAL); Stomatocytes 1+ (NORMAL)
[2021-04-18] MEDS: ACETAMINOPHEN 325 MG TABLET 650 MG PO (01:28)
[2021-04-18] MEDS: ALBUTEROL SULFATE NEB 2.5 MG/0.5 ML INH INHALATION ×5 (03:08→20:58)
[2021-04-18 07:12] LABS: Hematocrit 34.3 % (37.0-47.0); Hemoglobin 10.3 g/dL (12.0-15.0); Mean Corpuscular Hemoglobin 29.1 pg (26-34); Mean Corpuscular Volume 96.9 fl (80-100); Mean Platelet Volume 11.2 fl (7.4-10.4); Platelet Count Result 305 k/mm3 (150-375); Red Blood Count 3.54 M/mm3 (4.2-5.4); Red Cell Distribution Width 14.6 % (11.5-14.5); White Blood Count 32.2 K/mm3 (4.5-10.0)
[2021-04-18] MEDS: BUDESONIDE RESPULE NEB 0.5 MG/2 ML AMP INHALATION ×2 (07:38→20:58)
[2021-04-18 07:51] LABS: Anion Gap 12 mmol/L (8-16); Blood Urea Nitrogen 16 mg/dL (7-17); Calcium 7.2 mg/dL (8.4-10.2); Carbon Dioxide 26 mmol/L (22-30); Chloride 93 mmol/L (98-107); Estimated CRCL calculation 59 ml/min; Estimated Glomerular Filt Rate > 60; Glucose 154 mg/dL (65-110); Potassium 3.8 mmol/L (3.4-5.0); Sodium 131 mmol/L (137-145)
[2021-04-18] MEDS: BENZONATATE 100 MG CAPSULE 200 MG PO (08:48)
[2021-04-18] MEDS: DULoxetine HCL 60 MG CAPSULE.DR PO (08:50)
[2021-04-18] MEDS: PANTOPRAZOLE 40 MG TABLET PO ×2 (08:50→17:47)
[2021-04-18] MEDS: MECLIZINE HCL 12.5 MG TABLET PO (08:50)
[2021-04-18] MEDS: ATORVASTATIN 40 MG TABLET 80 MG PO (08:50)
[2021-04-18] MEDS: ASPIRIN 81 MG CHEWABLE TABLET PO (08:50)
[2021-04-18] MEDS: LORATADINE 10 MG TABLET PO (08:50)
[2021-04-18] MEDS: FOLIC ACID 1 MG TABLET PO (08:50)
[2021-04-18] MEDS: DICYCLOMINE HCL 10 MG CAPSULE PO (08:50)
[2021-04-18 08:51] LABS: Band Neutrophils Percent 16 % (0-6); Lymphocytes Absolute Manual 3.22 K/mm3 (1.1-4.5); Metamyelocytes Percent 1 %; Monocytes Absolute Manual 0.96 K/mm3 (0.1-0.90); Monocytes Percent Manual 3 % (3-9); Neutrophils Absolute Manual 27.69 K/mm3 (1.7-7.2); Neutrophils Percent Manual 70 % (46-73); Total Cells Counted 100
[2021-04-18] MEDS: AZELASTINE HCL NASAL 0.1% 137 MCG/SPR 30 ML BTL 1 SPRAY NASAL ×2 (08:51→20:42)
[2021-04-18] MEDS: FERROUS SULFATE 324 MG TABLET PO (08:51)
[2021-04-18] MEDS: guaiFENesin 200 MG/10 ML UDC 100 MG PO (08:51)
[2021-04-18] MEDS: FAMOTIDINE 20 MG/2 ML VIAL IV PUSH (08:51)
[2021-04-18 08:52] LABS: Anisocytosis 1+ (NORMAL); Large Platelets Present; Platelet Estimate Adequate (Adequate); Poikilocytosis 1+ (NORMAL)
[2021-04-18] MEDS: PREGABALIN (*CRX) 75 MG CAPSULE 150 MG PO ×2 (08:54→17:47)
[2021-04-18] MEDS: metroNIDAZOLE 500 MG/ISO 100ML 500 MG/100 ML BAG 100 MG IVPB ×3 (12:22→20:45)
[2021-04-18] MEDS: ENOXAPARIN 40 MG/0.4 ML SYRINGE SUB-Q (12:22)
--- NOTE | 2021-04-18 15:56 | PM.IMPN ---
Progress Note: A&P Assessment and Plan (1) Colitis: Code(s): K52.9 - Noninfective gastroenteritis and colitis, unspecified Status: Acute Assessment and Plan: Patient presents from nursing facility due to altered mental status. Found to have marked leukocytosis and evidence of pancolitis noted on CT. She was recently discharged from our facility and completed 7-day course of antibiotics 04/09/21 for treatment of E coli UTI. 2 liquid BMs today. Continue oral vancomycin for possible C diff colitis; continue IV flagyl for broader coverage. C diff + stool cultures pending. Continue supportive care with IV hydration, analgesics and antiemetics as needed. Advance to full liquid diet and add Banatrol. (2) Sepsis: Qualifiers: Sepsis acute organ dysfunction status: unspecified Sepsis type: sepsis due to unspecified organism Qualified Code(s): A41.9 - Sepsis, unspecified organism Code(s): A41.9 - Sepsis, unspecified organism Status: Acute Assessment and Plan: Evident on arrival by fever, tachycardia and marked leukocytosis up to 35,400 overnight, slightly trending down this morning. Lactic acid 1.1 Suspected source is colitis. Continue IV fluids and monitor fluid status. Abx as above. Monitor vital signs and urine output. Chronic pulmonary findings on imaging appear stable - COVID PCR is pending although seems less likely. (3) Altered mental status: Qualifiers: Altered mental status type: disorientation Qualified Code(s): R41.0 - Disorientation, unspecified Code(s): R41.82 - Altered mental status, unspecified Status: Acute Assessment and Plan: Suspect metabolic encephalopathy secondary to sepsis and colitis. Continue treatment as above and monitor. (4) ILD (interstitial lung disease): Code(s): J84.9 - Interstitial pulmonary disease, unspecified Status: Chronic Assessment and Plan: Appears stable. (5) Chronic hypoxemic respiratory failure: Code(s): J96.11 - Chronic respiratory failure with hypoxia Status: Chronic Assessment and Plan: Normally on 2L/min home O2. (6) COPD (chronic obstructive pulmonary disease): Qualifiers: COPD type: unspecified COPD Qualified Code(s): J44.9 - Chronic obstructive pulmonary disease, unspecified Code(s): J44.9 - Chronic obstructive pulmonary disease, unspecified Status: Chronic Assessment and Plan: With some faint wheezing otherwise stable. Continue her home pulmicort, albuterol and monitor. (7) RLS (restless legs syndrome): Code(s): G25.81 - Restless legs syndrome Status: Chronic Assessment and Plan: Continue home requip. (8) Exocrine pancreatic insufficiency: Code(s): K86.81 - Exocrine pancreatic insufficiency Status: Chronic Assessment and Plan: Continue home creon with meals. (9) Falls: Qualifiers: Encounter type: initial encounter Qualified Code(s): W19.XXXA - Unspecified fall, initial encounter Code(s): W19.XXXA - Unspecified fall, initial encounter Status: Acute Assessment and Plan: Patient had been experiencing falls prior to this illness in fact is why she was admitted previously a couple weeks ago. Continue PT/OT. Discharge planning was recently at [place] with home health but appears she moved to SNF after we discharged her. Subjective Date/time seen: 04/18/21 15:30 Interval history: Ms. Champagne is a 76yo F admitted for marked leukocytosis and altered mental status found to have pancoliti
[2021-04-18 16:42] LABS: IFOB Positive Control Positive; Immunochemical Fecal Occult Bl Positive (N)
[2021-04-18] MEDS: LIPASE/AMYLASE/PROTEASE 12,000 UNITS CAP 2 CAP PO (17:47)
[2021-04-18] MEDS: traZODone HCL 50 MG TABLET 300 MG PO (20:42)
[2021-04-18] MEDS: rOPINIRole HCL 1 MG TABLET 2 MG PO (20:44)
[2021-04-19] VITALS (13 sets, daily range): BP systolic 101–136; BP diastolic 56–73; PULSE 50–128; RESP 18–22; TEMP 36.5–37.2; O2SAT 92–99
--- NOTE | 2021-04-19 02:34 | PCRCNOTE ---
Window of time for administration has passed. See next scheduled administration.
[2021-04-19] MEDS: ALBUTEROL SULFATE NEB 2.5 MG/0.5 ML INH INHALATION ×5 (03:07→21:16)
[2021-04-19] MEDS: metroNIDAZOLE 500 MG/ISO 100ML 500 MG/100 ML BAG 100 MG IVPB ×3 (05:10→21:53)
[2021-04-19 06:59] LABS: Hemoglobin 9.4 g/dL (12.0-15.0); Immature Platelet Fraction Pct 9.5 % (0.9-11.2); Mean Corpuscular HGB Conc 30.3 g/dl (32-36); Mean Corpuscular Hemoglobin 28.9 pg (26-34); Mean Corpuscular Volume 95.4 fl (80-100); Mean Platelet Volume 11.4 fl (7.4-10.4); Platelet Count Result 289 k/mm3 (150-375); Red Blood Count 3.25 M/mm3 (4.2-5.4); Red Cell Distribution Width 14.6 % (11.5-14.5); White Blood Count 37.7 K/mm3 (4.5-10.0)
[2021-04-19 07:02] LABS: Alanine Aminotransferase 16 U/L (4-35); Albumin Level 2.7 g/dL (3.5-5.1); Alkaline Phosphatase 104 U/L (38-126); Anion Gap 5 mmol/L (8-16); Aspartate Amino Transferase 51 U/L (14-36); Bilirubin,Total 0.6 mg/dL (0.2-1.3); Blood Urea Nitrogen 18 mg/dL (7-17); Calcium 6.5 mg/dL (8.4-10.2); Carbon Dioxide 28 mmol/L (22-30); Chloride 95 mmol/L (98-107); Estimated CRCL calculation 52 ml/min; Estimated Glomerular Filt Rate > 60; Glucose 181 mg/dL (65-110); Magnesium 1.4 mg/dL (1.6-2.3); Potassium 4.4 mmol/L (3.4-5.0); Sodium 128 mmol/L (137-145)
[2021-04-19 07:33] LABS: Band Neutrophils Percent 3 % (0-6); Lymphocytes Absolute Manual 0.37 K/mm3 (1.1-4.5); Monocytes Absolute Manual 0.37 K/mm3 (0.1-0.90); Monocytes Percent Manual 1 % (3-9); Neutrophils Absolute Manual 36.94 K/mm3 (1.7-7.2); Neutrophils Percent Manual 95 % (46-73); Platelet Estimate Adequate (Adequate); Total Cells Counted 100
--- NOTE | 2021-04-19 07:52 | PC.NURSE ---
MAYA (Inna Finney) called at 0125 asking about Gabbi. We discussed recent reports and patient's current mental status. She stated that her mental status is a drastic change form before she went to [facility]. Patient has been talking in nonsensical phrases. She has been laying diagonal in bed but does not attempt to get up. She has been following directions but has not been able to express herself clearly.
[2021-04-19] MEDS: BUDESONIDE RESPULE NEB 0.5 MG/2 ML AMP INHALATION ×2 (07:54→21:16)
[2021-04-19] MEDS: MAGNESIUM SULFATE 3GM/D5W100ML 3 GM/100 ML BAG IVPB (10:21)
[2021-04-19] MEDS: guaiFENesin 200 MG/10 ML UDC 100 MG PO (10:24)
[2021-04-19] MEDS: PREGABALIN (*CRX) 75 MG CAPSULE 150 MG PO ×2 (10:25→16:42)
[2021-04-19] MEDS: PANTOPRAZOLE 40 MG TABLET PO ×2 (10:27→16:42)
[2021-04-19] MEDS: MECLIZINE HCL 12.5 MG TABLET PO (10:27)
[2021-04-19] MEDS: ATORVASTATIN 40 MG TABLET 80 MG PO (10:27)
[2021-04-19] MEDS: DICYCLOMINE HCL 10 MG CAPSULE PO (10:27)
[2021-04-19] MEDS: LIPASE/AMYLASE/PROTEASE 12,000 UNITS CAP 2 CAP PO ×3 (10:27→16:41)
[2021-04-19] MEDS: ASPIRIN 81 MG CHEWABLE TABLET PO (10:27)
[2021-04-19] MEDS: DULoxetine HCL 60 MG CAPSULE.DR PO (10:28)
[2021-04-19] MEDS: FOLIC ACID 1 MG TABLET PO (10:28)
[2021-04-19] MEDS: AZELASTINE HCL NASAL 0.1% 137 MCG/SPR 30 ML BTL 1 SPRAY NASAL ×2 (10:28→21:53)
[2021-04-19] MEDS: LORATADINE 10 MG TABLET PO (10:28)
[2021-04-19] MEDS: FERROUS SULFATE 324 MG TABLET PO (10:28)
[2021-04-19] MEDS: ENOXAPARIN 40 MG/0.4 ML SYRINGE SUB-Q (10:28)
[2021-04-19] MEDS: traMADol HCL (*CRX) 50 MG TABLET PO (10:33)
[2021-04-19 13:09] LABS: Anion Gap 9 mmol/L (8-16); Blood Urea Nitrogen 19 mg/dL (7-17); Calcium 6.7 mg/dL (8.4-10.2); Carbon Dioxide 29 mmol/L (22-30); Chloride 91 mmol/L (98-107); Estimated CRCL calculation 52 ml/min; Estimated Glomerular Filt Rate > 60; Glucose 266 mg/dL (65-110); Magnesium 1.9 mg/dL (1.6-2.3); Potassium 3.7 mmol/L (3.4-5.0); Sodium 129 mmol/L (137-145)
[2021-04-19] MEDS: SODIUM CHLORIDE 0.9% IV 1,000 ML 100 ML IV CONT (16:24)
--- NOTE | 2021-04-19 16:34 | PM.IMPN ---
Progress Note: A&P Assessment and Plan (1) Colitis: Code(s): K52.9 - Noninfective gastroenteritis and colitis, unspecified Status: Acute Assessment and Plan: Patient presents from nursing facility due to altered mental status. Found to have marked leukocytosis and evidence of pancolitis noted on CT. She was recently discharged from our facility and completed 7-day course of antibiotics 04/09/21 for treatment of E coli UTI. 3 liquid BMs today. Continue oral vancomycin for possible C diff colitis while assay pending; continue IV flagyl for broader coverage. C diff + stool cultures pending. WBC trending up but will hold off on further broadening of abx until C diff results are back. Continue supportive care with IV hydration, analgesics and antiemetics as needed. Advance to full liquid diet and add Banatrol. (2) Sepsis: Qualifiers: Sepsis acute organ dysfunction status: unspecified Sepsis type: sepsis due to unspecified organism Qualified Code(s): A41.9 - Sepsis, unspecified organism Code(s): A41.9 - Sepsis, unspecified organism Status: Acute Assessment and Plan: Evident on arrival by fever, tachycardia and marked leukocytosis trending up. Lactic acid 1.1 in arrival. Suspected source is colitis. Continue IV fluids and monitor fluid status. Abx as above. Monitor vital signs and urine output. Chronic pulmonary findings on imaging appear stable - COVID PCR is pending although seems less likely. (3) Altered mental status: Qualifiers: Altered mental status type: disorientation Qualified Code(s): R41.0 - Disorientation, unspecified Code(s): R41.82 - Altered mental status, unspecified Status: Acute Assessment and Plan: Suspect metabolic encephalopathy secondary to sepsis and colitis. Continue treatment as above and monitor. (4) ILD (interstitial lung disease): Code(s): J84.9 - Interstitial pulmonary disease, unspecified Status: Chronic Assessment and Plan: Appears stable. (5) Chronic hypoxemic respiratory failure: Code(s): J96.11 - Chronic respiratory failure with hypoxia Status: Chronic Assessment and Plan: Normally on 2L/min home O2. (6) COPD (chronic obstructive pulmonary disease): Qualifiers: COPD type: unspecified COPD Qualified Code(s): J44.9 - Chronic obstructive pulmonary disease, unspecified Code(s): J44.9 - Chronic obstructive pulmonary disease, unspecified Status: Chronic Assessment and Plan: With some faint wheezing otherwise stable. Continue her home pulmicort, albuterol and monitor. (7) RLS (restless legs syndrome): Code(s): G25.81 - Restless legs syndrome Status: Chronic Assessment and Plan: Continue home requip. (8) Exocrine pancreatic insufficiency: Code(s): K86.81 - Exocrine pancreatic insufficiency Status: Chronic Assessment and Plan: Continue home creon with meals. (9) Falls: Qualifiers: Encounter type: initial encounter Qualified Code(s): W19.XXXA - Unspecified fall, initial encounter Code(s): W19.XXXA - Unspecified fall, initial encounter Status: Acute Assessment and Plan: Patient had been experiencing falls prior to this illness in fact is why she was admitted previously a couple weeks ago. Continue PT/OT. Discharge planning was recently at [place] with home health but appears she moved to SNF after we discharged her. Subjective Date/time seen: 04/19/21 16:00 Interval history: Ms. Champagne is a 76yo F ad
[2021-04-19 20:38] LABS: SARS-CoV-2 RNA PCR Negative
[2021-04-19] MEDS: traZODone HCL 50 MG TABLET 300 MG PO (21:54)
[2021-04-19] MEDS: rOPINIRole HCL 1 MG TABLET 2 MG PO (21:55)
[2021-04-20] VITALS (21 sets, daily range): BP systolic 104–130; BP diastolic 51–66; PULSE 88–129; RESP 16–22; TEMP 36.3–37.3; O2SAT 92–98
[2021-04-20] MEDS: ALBUTEROL SULFATE NEB 2.5 MG/0.5 ML INH INHALATION ×5 (00:45→20:57)
[2021-04-20] MEDS: metroNIDAZOLE 500 MG/ISO 100ML 500 MG/100 ML BAG 100 MG IVPB ×3 (05:06→21:19)
[2021-04-20 06:30] LABS: Hematocrit 29.3 % (37.0-47.0); Hemoglobin 9.1 g/dL (12.0-15.0); Mean Corpuscular HGB Conc 31.1 g/dl (32-36); Mean Corpuscular Hemoglobin 29.4 pg (26-34); Mean Corpuscular Volume 94.5 fl (80-100); Mean Platelet Volume 11.4 fl (7.4-10.4); Platelet Count Result 320 k/mm3 (150-375)
[2021-04-20 06:40] LABS: Alanine Aminotransferase 15 U/L (4-35); Albumin Level 2.8 g/dL (3.5-5.1); Alkaline Phosphatase 88 U/L (38-126); Anion Gap 9 mmol/L (8-16); Aspartate Amino Transferase 42 U/L (14-36); Bilirubin,Total 0.2 mg/dL (0.2-1.3); Blood Urea Nitrogen 24 mg/dL (7-17); Calcium 6.8 mg/dL (8.4-10.2); Carbon Dioxide 27 mmol/L (22-30); Chloride 92 mmol/L (98-107); Estimated CRCL calculation 39 ml/min; Estimated Glomerular Filt Rate 48; Glucose 216 mg/dL (65-110); Magnesium 1.8 mg/dL (1.6-2.3); Potassium 3.5 mmol/L (3.4-5.0); Sodium 128 mmol/L (137-145)
[2021-04-20] MEDS: POTASSIUM CHLORIDE 20 MEQ TABLET PO (07:29)
[2021-04-20 07:40] LABS: Band Neutrophils Percent 12 % (0-6); Large Platelets Present; Lymphocytes Absolute Manual 1.64 K/mm3 (1.1-4.5); Monocytes Absolute Manual 0.82 K/mm3 (0.1-0.90); Monocytes Percent Manual 2 % (3-9); Neutrophils Absolute Manual 38.54 K/mm3 (1.7-7.2); Neutrophils Percent Manual 82 % (46-73); Total Cells Counted 100
[2021-04-20 07:41] LABS: Hypochromasia 1+ (NORMAL)
[2021-04-20] MEDS: BUDESONIDE RESPULE NEB 0.5 MG/2 ML AMP INHALATION ×2 (08:18→20:57)
--- NOTE | 2021-04-20 08:37 | PC.NURSE ---
Patient was intermittently confused though cooperative. She was found multiple times laying diagonally in the bed. She spoke in incomplete and often nonsensical sentences. She was pleasant and cooperative with medications and cares.
[2021-04-20] MEDS: LORATADINE 10 MG TABLET PO (10:44)
[2021-04-20] MEDS: DULoxetine HCL 60 MG CAPSULE.DR PO (10:44)
[2021-04-20] MEDS: ENOXAPARIN 40 MG/0.4 ML SYRINGE SUB-Q (10:44)
[2021-04-20] MEDS: FOLIC ACID 1 MG TABLET PO (10:44)
[2021-04-20] MEDS: ATORVASTATIN 40 MG TABLET 80 MG PO (10:44)
[2021-04-20] MEDS: AZELASTINE HCL NASAL 0.1% 137 MCG/SPR 30 ML BTL 1 SPRAY NASAL ×2 (10:44→20:08)
[2021-04-20] MEDS: PANTOPRAZOLE 40 MG TABLET PO ×2 (10:44→18:27)
[2021-04-20] MEDS: PREGABALIN (*CRX) 75 MG CAPSULE 150 MG PO ×2 (10:45→18:25)
[2021-04-20] MEDS: FERROUS SULFATE 324 MG TABLET PO (10:45)
[2021-04-20] MEDS: ASPIRIN 81 MG CHEWABLE TABLET PO (10:45)
[2021-04-20] MEDS: MAGNESIUM OXIDE 400 MG TABLET PO (10:45)
[2021-04-20] MEDS: LIPASE/AMYLASE/PROTEASE 12,000 UNITS CAP 2 CAP PO ×3 (10:45→18:24)
--- NOTE | 2021-04-20 11:42 | P.PNIM_ITS ---
Progress Note: A&P Assessment and Plan (1) Colitis: Code(s): K52.9 - Noninfective gastroenteritis and colitis, unspecified Status: Acute Assessment and Plan: * Patient presents from nursing facility due to altered mental status. Found to have marked leukocytosis and evidence of pancolitis noted on CT. * She was recently discharged from our facility and completed 7-day course of antibiotics 04/09/21 for treatment of E coli UTI. * C diff toxin detected. Continue oral vancomycin (day 3 - started 04/18) and IV flagyl (day 3). * WBC trending up. Clinically her exam is about the same today. Appreciate GI consultation. * Continue supportive care with IV hydration, analgesics and antiemetics as needed. Advance to full liquid diet and add Banatrol. (2) Sepsis: Qualifiers: Sepsis acute organ dysfunction status: unspecified Sepsis type: sepsis due to unspecified organism Qualified Code(s): A41.9 - Sepsis, unspecified organism Code(s): A41.9 - Sepsis, unspecified organism Status: Acute Assessment and Plan: * Evident on arrival by fever, tachycardia and marked leukocytosis trending up. Lactic acid 1.1 on arrival. * Suspected source is C diff colitis. Continue IV fluids and monitor fluid status. Abx as above. Monitor vital signs and urine output. * Chronic pulmonary findings on imaging appear stable - COVID PCR is negative. Atelectasis - encourage IS. (3) Altered mental status: Qualifiers: Altered mental status type: disorientation Qualified Code(s): R41.0 - Disorientation, unspecified Code(s): R41.82 - Altered mental status, unspecified Status: Acute Assessment and Plan: * Suspect metabolic encephalopathy secondary to sepsis and colitis. Continue treatment as above and monitor. She is still confused today. (4) ILD (interstitial lung disease): Code(s): J84.9 - Interstitial pulmonary disease, unspecified Status: Chronic Assessment and Plan: * Appears stable. (5) Chronic hypoxemic respiratory failure: Code(s): J96.11 - Chronic respiratory failure with hypoxia Status: Chronic Assessment and Plan: * Normally on 2L/min home O2. (6) COPD (chronic obstructive pulmonary disease): Qualifiers: COPD type: unspecified COPD Qualified Code(s): J44.9 - Chronic obstructive pulmonary disease, unspecified Code(s): J44.9 - Chronic obstructive pulmonary disease, unspecified Status: Chronic Assessment and Plan: * With some faint wheezing otherwise stable. Continue her home pulmicort, albute rol and monitor. (7) RLS (restless legs syndrome): Code(s): G25.81 - Restless legs syndrome Status: Chronic Assessment and Plan: * Continue home requip. (8) Exocrine pancreatic insufficiency: Code(s): K86.81 - Exocrine pancreatic insufficiency Status: Chronic Assessment and Plan: * Continue home creon with meals. (9) Falls: Qualifiers: Encounter type: initial encounter Qualified Code(s): W19.XXXA - Unspe cified fall, initial encounter Code(s): W19.XXXA - Unspecified fall, initial encounter Status: Acute Assessment and Plan: * Patient had been
--- NOTE | 2021-04-20 11:42 | PM.IMPN ---
Progress Note: A&P Assessment and Plan (1) Colitis: Code(s): K52.9 - Noninfective gastroenteritis and colitis, unspecified Status: Acute Assessment and Plan: Patient presents from nursing facility due to altered mental status. Found to have marked leukocytosis and evidence of pancolitis noted on CT. She was recently discharged from our facility and completed 7-day course of antibiotics 04/09/21 for treatment of E coli UTI. C diff toxin detected. Continue oral vancomycin (day 3 - started 04/18) and IV flagyl (day 3). WBC trending up. Clinically her exam is about the same today. Appreciate GI consultation. Continue supportive care with IV hydration, analgesics and antiemetics as needed. Advance to full liquid diet and add Banatrol. (2) Sepsis: Qualifiers: Sepsis acute organ dysfunction status: unspecified Sepsis type: sepsis due to unspecified organism Qualified Code(s): A41.9 - Sepsis, unspecified organism Code(s): A41.9 - Sepsis, unspecified organism Status: Acute Assessment and Plan: Evident on arrival by fever, tachycardia and marked leukocytosis trending up. Lactic acid 1.1 on arrival. Suspected source is C diff colitis. Continue IV fluids and monitor fluid status. Abx as above. Monitor vital signs and urine output. Chronic pulmonary findings on imaging appear stable - COVID PCR is negative. Atelectasis - encourage IS. (3) Altered mental status: Qualifiers: Altered mental status type: disorientation Qualified Code(s): R41.0 - Disorientation, unspecified Code(s): R41.82 - Altered mental status, unspecified Status: Acute Assessment and Plan: Suspect metabolic encephalopathy secondary to sepsis and colitis. Continue treatment as above and monitor. She is still confused today. (4) ILD (interstitial lung disease): Code(s): J84.9 - Interstitial pulmonary disease, unspecified Status: Chronic Assessment and Plan: Appears stable. (5) Chronic hypoxemic respiratory failure: Code(s): J96.11 - Chronic respiratory failure with hypoxia Status: Chronic Assessment and Plan: Normally on 2L/min home O2. (6) COPD (chronic obstructive pulmonary disease): Qualifiers: COPD type: unspecified COPD Qualified Code(s): J44.9 - Chronic obstructive pulmonary disease, unspecified Code(s): J44.9 - Chronic obstructive pulmonary disease, unspecified Status: Chronic Assessment and Plan: With some faint wheezing otherwise stable. Continue her home pulmicort, albuterol and monitor. (7) RLS (restless legs syndrome): Code(s): G25.81 - Restless legs syndrome Status: Chronic Assessment and Plan: Continue home requip. (8) Exocrine pancreatic insufficiency: Code(s): K86.81 - Exocrine pancreatic insufficiency Status: Chronic Assessment and Plan: Continue home creon with meals. (9) Falls: Qualifiers: Encounter type: initial encounter Qualified Code(s): W19.XXXA - Unspecified fall, initial encounter Code(s): W19.XXXA - Unspecified fall, initial encounter Status: Acute Assessment and Plan: Patient had been experiencing falls prior to this illness in fact is why she was admitted previously a couple weeks ago. Continue PT/OT. Discharge planning was recently at [facility] with home health but appears she moved to SNF after we discharged her. Subjective Date/time seen: 04/20/21 11:30 Interval history: Ms. Champagne is a 76yo F admitted for marked leukocytosis and alt
[2021-04-20] MEDS: VANCOMYCIN ORAL 125 MG/2.5 ML SYRUP PO ×3 (13:56→23:51)
[2021-04-20] MEDS: SODIUM CHLORIDE 0.9% IV 1,000 ML 100 ML IV CONT (18:25)
[2021-04-20] MEDS: SACCHAROMYCES BOULARDII 250 MG CAPSULE PO (18:25)
[2021-04-20] MEDS: rOPINIRole HCL 1 MG TABLET 2 MG PO (20:05)
[2021-04-20] MEDS: traZODone HCL 50 MG TABLET 300 MG PO (20:05)
[2021-04-21] VITALS (18 sets, daily range): BP systolic 100–134; BP diastolic 50–99; PULSE 95–101; RESP 14–20; TEMP 36.3–36.8; O2SAT 92–93
--- NOTE | 2021-04-21 02:19 | PCRCNOTE ---
Window of time for administration has passed. See next scheduled administration.
[2021-04-21] MEDS: ALBUTEROL SULFATE NEB 2.5 MG/0.5 ML INH INHALATION ×5 (03:52→23:36)
[2021-04-21] MEDS: metroNIDAZOLE 500 MG/ISO 100ML 500 MG/100 ML BAG 100 MG IVPB ×3 (05:44→20:57)
[2021-04-21] MEDS: VANCOMYCIN ORAL 125 MG/2.5 ML SYRUP PO ×4 (05:45→23:40)
[2021-04-21] MEDS: SODIUM CHLORIDE 0.9% IV 1,000 ML 100 ML IV CONT ×2 (05:46→17:31)
[2021-04-21 07:14] LABS: Basophils Absolute Auto 0.1 K/mm3 (0.0-0.1); Basophils Percent Auto 0.3 % (0.2-1.2); Eosinophils Absolute Auto 0.3 K/mm3 (0-0.3); Hematocrit 28.4 % (37.0-47.0); Immature Granulocyte Percent A 4.3 % (0-0.5); Lymphocytes Absolute Auto 0.75 K/mm3 (0.9-3.2); Lymphocytes Percent Auto 2.1 % (18.3-44.2); Mean Corpuscular HGB Conc 31.7 g/dl (32-36); Mean Corpuscular Hemoglobin 29.9 pg (26-34); Mean Corpuscular Volume 94.4 fl (80-100); Monocytes Absolute Auto 1.2 K/mm3 (0.1-0.6); Monocytes Percent Auto 3.3 % (2.6-8.5); Neutrophils Absolute Auto 31.3 K/mm3 (1.3-6.7); Platelet Count Result 324 k/mm3 (150-375); Red Blood Count 3.01 M/mm3 (4.2-5.4); Red Cell Distribution Width 15.2 % (11.5-14.5); White Blood Count 35.2 K/mm3 (4.5-10.0)
[2021-04-21] MEDS: BUDESONIDE RESPULE NEB 0.5 MG/2 ML AMP INHALATION ×2 (07:33→20:02)
[2021-04-21 07:34] LABS: Alanine Aminotransferase 14 U/L (4-35); Albumin Level 2.6 g/dL (3.5-5.1); Alkaline Phosphatase 79 U/L (38-126); Anion Gap 6 mmol/L (8-16); Aspartate Amino Transferase 42 U/L (14-36); Bilirubin,Total 0.3 mg/dL (0.2-1.3); Blood Urea Nitrogen 20 mg/dL (7-17); Calcium 6.8 mg/dL (8.4-10.2); Carbon Dioxide 27 mmol/L (22-30); Chloride 97 mmol/L (98-107); Estimated CRCL calculation 42 ml/min; Estimated Glomerular Filt Rate 54; Glucose 169 mg/dL (65-110); Magnesium 1.8 mg/dL (1.6-2.3); Potassium 3.6 mmol/L (3.4-5.0); Sodium 130 mmol/L (137-145)
[2021-04-21] MEDS: ASPIRIN 81 MG CHEWABLE TABLET PO (08:40)
[2021-04-21] MEDS: ENOXAPARIN 40 MG/0.4 ML SYRINGE SUB-Q (08:40)
[2021-04-21] MEDS: LIPASE/AMYLASE/PROTEASE 12,000 UNITS CAP 2 CAP PO ×3 (08:41→17:01)
[2021-04-21] MEDS: ATORVASTATIN 40 MG TABLET 80 MG PO (08:41)
[2021-04-21] MEDS: SACCHAROMYCES BOULARDII 250 MG CAPSULE PO ×2 (08:41→17:01)
[2021-04-21] MEDS: FIDAXOMICIN 200 MG TABLET PO ×2 (08:42→20:57)
[2021-04-21] MEDS: FERROUS SULFATE 324 MG TABLET PO (08:42)
[2021-04-21] MEDS: DULoxetine HCL 60 MG CAPSULE.DR PO (08:42)
[2021-04-21] MEDS: MAGNESIUM OXIDE 400 MG TABLET PO (08:42)
[2021-04-21] MEDS: FOLIC ACID 1 MG TABLET PO (08:43)
[2021-04-21] MEDS: PANTOPRAZOLE 40 MG TABLET PO ×2 (08:43→17:01)
[2021-04-21] MEDS: LORATADINE 10 MG TABLET PO (08:43)
[2021-04-21] MEDS: PREGABALIN (*CRX) 75 MG CAPSULE 150 MG PO ×2 (08:44→17:00)
[2021-04-21] MEDS: AZELASTINE HCL NASAL 0.1% 137 MCG/SPR 30 ML BTL 1 SPRAY NASAL ×2 (08:44→20:59)
--- NOTE | 2021-04-21 12:27 | WPDGIPROGNO ---
Progress Note: A&P Assessment and Plan (1) C. difficile colitis: Code(s): A04.72 - Enterocolitis due to Clostridium difficile, not specified as recurrent Status: Acute Assessment and Plan: she cannot tell me whether she has had a bowel movement yet this morning. The C diff obviously explains the abnormality seen on CT scan. I would complete a 14 day course of vancomycin Additional Plan I will sign off. Please let me know if I can be of further help Subjective Date/time seen: 04/21/21 12:27 Interval history: Ms. Champagne is a 76yo F admitted for marked leukocytosis and altered mental status found to have pancolitis. Recently completed a 7-day course of antibiotics for treatment of E coli UTI during recent admission. Upon my arrival she is awake and alert, knows she is in the hospital but continues with some nonsensical speech. Denies being in any pain but winces when I palpate her abdomen. Denies nausea or vomiting. Has not eaten much today. Staff notes continued diarrhea today. Review of Systems Review of Systems: All systems reviewed & are unremarkable except as noted in HPI and below Exam Const: General: comfortable and no acute distress Orientation/consciousness: oriented to person and confusion GI: Inspection: distended GI Palp: No abdominal tenderness and Yes Soft to palpation Auscultation: normal bowel sounds Objective Data Vital Signs Vital Signs: Vital Signs - 24 hr 04/20/21 15:51 04/20/21 16:00 04/20/21 16:59 Temperature 36.4 C Pulse Rate 101 H 110 H 106 H Respiratory Rate 18 20 Blood Pressure 112/57 L Pulse Oximetry 97 04/20/21 17:09 04/20/21 20:00 04/20/21 20:57 Temperature Pulse Rate 110 H 101 H 102 H Respiratory Rate 20 22 H 20 Blood Pressure Pulse Oximetry 92 04/20/21 21:03 04/20/21 21:04 04/20/21 22:00 Temperature 36.3 C L Pulse Rate 105 H 112 H Respiratory Rate 20 22 H Blood Pressure 117/66 Pulse Oximetry 94 92 04/21/21 00:00 04/21/21 03:52 04/21/21 04:00 Temperature Pulse Rate 101 H 99 101 H Respiratory Rate 20 Blood Pressure Pulse Oximetry 04/21/21 04:05 04/21/21 06:00 04/21/21 07:34 Temperature 36.8 C Pulse Rate 101 H 100 99 Respiratory Rate 20 20 20 Blood Pressure 100/50 L Pulse Oximetry 93 04/21/21 07:42 04/21/21 08:00 Temperature Pulse Rate 98 101 H Respiratory Rate 20 Blood Pressure Pulse Oximetry 93 Intake/Output Intake/Output: Intake & Output 04/18/21 04/19/21 04/20/21 04/21/21 23:59 23:59 23:59 23:59 Intake Total 1410 2150 2900 1350 Output Total 2 Balance 1410 2148 2900 1350 Meds/Results Medications: Active Medications Generic Name Dose Route Start Last Admin Trade Name Freq PRN Reason Stop Dose Admin Acetaminophen 650 mg 04/17/21 20:55 04/18/21 01:28 Acetaminophen 325 Mg Tablet PO 650 mg Q4H PRN Administration Mild Pain (1-3) or Fever Albuterol 2.5 mg 04/18/21 00:00 04/21/21 07:33 Albuterol Sulfate Neb 2.5 Mg/0.5 Ml Inh INHALATION 2.5 mg Q4HRT DOC Administration Albuterol 1 puff 04/18/21 01:07 Albuterol Sulfate (*Sp) Aerosol 1 Puff INHALATION Q4H PRN shortness of breath or wheezing Lipase/Protease/Amylase 2 cap 04/18/21 09:00 04/21/21 11:42 Lipase/Amylase/Protease 12,000 Units Cap PO 2 cap TIDWM DOC Administration Aspirin 81 mg 04/18/21 08:00 04/21/21 08:40 Aspirin 81 Mg Chewable Tablet PO 81 mg DAILY@0800 DOC Administration Atorvastatin Calcium 80 mg 04/18/21 09:00 04/21/21 08:41 Atorvastatin 40 Mg Tablet PO 80 mg DAILY DOC Administration Azelastine HCl 1 spray 04/18/21 09:00 04/21/21 08:44 Azelastine Hcl Nasal 0.1% 137 Mcg/Spr 30 Ml Btl NASAL 1 spray Q12HR DOC Administration Benzonatate 200 mg 04/18/21 01:07 04/18/21 08:48 Benzonatate 100 Mg Capsule PO 200 mg TID PRN Administration cough Bisacodyl 10 mg 04/18/21 01:07 Bisacodyl 10 Mg Supposito
--- NOTE | 2021-04-21 12:37 | WPDGICN ---
Assessment and Plan Assessment and plan (1) C. difficile colitis: Code(s): A04.72 - Enterocolitis due to Clostridium difficile, not specified as recurrent Status: Acute Assessment and Plan: her elevated white blood count is of almost certainly due to C diff colitis. I think that we can gradually advance her diet. GI Consult Note Consult date/time: 04/21/21 12:38 Please note. This note is my consultation note from yesterday which I had failed to complete HPI: Gabbi Champagne is a 76 year old female would recently been discharged from this hospital and sent to assisted living. There she was found have altered mental status and also white blood count over 30,000. A CT scan was done when she came to our emergency room which reveals pancolitis. C difficile toxin is positive. She denies abdominal pain affecting her history is totally unreliable as she is confused. She thinks that I am a relative Review of Systems Review of Systems: All systems reviewed & are unremarkable except as noted in HPI and below PMFSH Past Medical History Medical History Anemia Anxiety Arthritis Back injury Back pain Bilateral shoulder pain Bronchitis CHF (congestive heart failure) COPD (chronic obstructive pulmonary disease) On home O2 3L Degenerative joint disease of both hips Degenerative joint disease of right hip Dementia Depression 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fection) Wears dentures Surgical History Surgical History H/O neck surgery 2002 History of back surgery 2000 History of bladder suspension procedure History of cardiac cath History of cholecystectomy History of hysterectomy History of lumbar fusion x2 History of tonsillectomy History of tubal ligation History of vascular surgery lt leg arteroplasty Family History Family History Father Patient's father is in good health Family history of Parkinson's disease Sibling Patient's brother is in good health Mother Family history of chronic obstructive pulmonary disease Family history of pancreatic cancer Social History Social History Smoking packs per day: 1 Smoking cigarettes per day: 20.0 Years smoked: 30 Smoking pack-years: 30.00 Smoking status: Unknown if ever smoked Alcohol intake: unknown Substance use: unknown Substance use type: does not use Gender identity (if verbalized by the patient): Female Spiritual care concerns: No Meds Home Medications and Allergies Home Medications Medication Instructions Recorded Confirmed Type meclizine 12.5 mg tablet 12.5 mg PO TID PRN #30 tablet 01/02/20 04/18/21 Rx dicyclomine 10 mg capsule 10 mg PO QID PRN 04/24/20 04/18/21 History prochlorperazine maleate 10 mg 10 mg PO Q8H PRN 04/24/20 04/18/21 History tablet budesonide 0.5 mg/2 mL suspension 0.5 mg INHALATION BID #120 ml 05/01/20 04/18/21 Rx for nebulization ipratropium 0.5 mg-albuterol 3 mg 3 ml INHALATION Q6H PRN #180 ml 05/01/20 04/18/21 Rx (2.5 mg base)/3 mL nebulization soln nystatin-triamcinolone 100,000 1 applic TOPICAL BID PRN #15 gm 05/25/20 04/18/21 Rx unit/g-0.1 % topical cream guaifenesin 100 mg/5 mL oral liquid 100 mg PO Q4H PRN #473 ml 06/10/20 04/18/21 Rx benzonatate 200 mg capsule 200 mg PO TID PRN #60 cap 09/04/20 04/17/21 Rx aspirin 81 mg chewable tablet 81 mg PO DAILY #90 tablet
--- NOTE | 2021-04-21 13:51 | PCRCNOTE ---
Past window of treatment time.
--- NOTE | 2021-04-21 17:56 | P.PNIM_ITS ---
Progress Note: A&P Assessment and Plan (1) Colitis: Code(s): K52.9 - Noninfective gastroenteritis and colitis, unspecified Status: Acute Assessment and Plan: * Patient presents from nursing facility due to altered mental status. Found to have sepsis with marked leukocytosis and evidence of pancolitis noted on CT. * She was recently discharged from our facility and completed 7-day course of antibiotics 04/09/21 for treatment of E coli UTI. * C diff toxin detected. Continue oral vancomycin (day 4 - started 04/18) and IV flagyl (day 4). * WBC better today. Appreciate GI consultation. * Stool guaiac positive but not unexpected with the colitis * Continue supportive care with abx, analgesics and antiemetics as needed. Advance to low residue diet; continue Banatrol. (2) Sepsis: Qualifiers: Sepsis acute organ dysfunction status: unspecified Sepsis type: sepsis due to unspecified organism Qualified Code(s): A41.9 - Sepsis, unspecified organism Code(s): A41.9 - Sepsis, unspecified organism Status: Acute Assessment and Plan: * Evident on arrival by fever, tachycardia and marked leukocytosis trending up. Lactic acid 1.1 on arrival. * Suspected source is C diff colitis. Abx as above. Monitor vital signs and urine output. * Chronic pulmonary findings on imaging appear stable - COVID PCR is negative. Atelectasis - encourage IS. * Na stable at 130. Stop IV fluids (3) Altered mental status: Qualifiers: Altered mental status type: disorientation Qualified Code(s): R41.0 - Disorientation, unspecified Code(s): R41.82 - Altered mental status, unspecified Status: Acute Assessment and Plan: * Suspect metabolic encephalopathy secondary to sepsis and colitis. Continue treatment as above and monitor. * May have some underlying dementia * Calcium 6.8 (corrected 7.9). Replace to see if this improves her mental status * Follow (4) ILD (interstitial lung disease): Code(s): J84.9 - Interstitial pulmonary disease, unspecified Status: Chronic Assessment and Plan: * Appears stable. (5) Chronic hypoxemic respiratory failure: Code(s): J96.11 - Chronic respiratory failure with hypoxia Status: Chronic Assessment and Plan: * Stable. Normally on 2L/min home O2. (6) COPD (chronic obstructive pulmonary disease): Qualifiers: COPD type: unspecified COPD Qualified Code(s): J44.9 - Chronic obstructive pulmonary disease, unspecified Code(s): J44.9 - Chronic obstructive pulmonary disease, unspecified Status: Chronic Assessment and Plan: * Still with some faint wheezing otherwise stable. Continue her home pulmicort, albuterol and monitor. * Stop IV fluids (7) RLS (restless legs syndrome): Code(s): G25.81 - Restless legs syndrome Status: Chronic Assessment and Plan: * Stable. Continue home requip. (8) Exocrine pancreatic insufficiency: Code(s): K86.81 - Exocrine pancreatic insufficiency Status: Chronic Assessment and Plan: * Stable. Continue home creon with meals. (9) Falls: Qualifiers: Encounter type: initial encounter Q
--- NOTE | 2021-04-21 17:56 | PM.IMPN ---
Progress Note: A&P Assessment and Plan (1) Colitis: Code(s): K52.9 - Noninfective gastroenteritis and colitis, unspecified Status: Acute Assessment and Plan: Patient presents from nursing facility due to altered mental status. Found to have sepsis with marked leukocytosis and evidence of pancolitis noted on CT. She was recently discharged from our facility and completed 7-day course of antibiotics 04/09/21 for treatment of E coli UTI. C diff toxin detected. Continue oral vancomycin (day 4 - started 04/18) and IV flagyl (day 4). WBC better today. Appreciate GI consultation. Stool guaiac positive but not unexpected with the colitis Continue supportive care with abx, analgesics and antiemetics as needed. Advance to low residue diet; continue Banatrol. (2) Sepsis: Qualifiers: Sepsis acute organ dysfunction status: unspecified Sepsis type: sepsis due to unspecified organism Qualified Code(s): A41.9 - Sepsis, unspecified organism Code(s): A41.9 - Sepsis, unspecified organism Status: Acute Assessment and Plan: Evident on arrival by fever, tachycardia and marked leukocytosis trending up. Lactic acid 1.1 on arrival. Suspected source is C diff colitis. Abx as above. Monitor vital signs and urine output. Chronic pulmonary findings on imaging appear stable - COVID PCR is negative. Atelectasis - encourage IS. Na stable at 130. Stop IV fluids (3) Altered mental status: Qualifiers: Altered mental status type: disorientation Qualified Code(s): R41.0 - Disorientation, unspecified Code(s): R41.82 - Altered mental status, unspecified Status: Acute Assessment and Plan: Suspect metabolic encephalopathy secondary to sepsis and colitis. Continue treatment as above and monitor. May have some underlying dementia Calcium 6.8 (corrected 7.9). Replace to see if this improves her mental status Follow (4) ILD (interstitial lung disease): Code(s): J84.9 - Interstitial pulmonary disease, unspecified Status: Chronic Assessment and Plan: Appears stable. (5) Chronic hypoxemic respiratory failure: Code(s): J96.11 - Chronic respiratory failure with hypoxia Status: Chronic Assessment and Plan: Stable. Normally on 2L/min home O2. (6) COPD (chronic obstructive pulmonary disease): Qualifiers: COPD type: unspecified COPD Qualified Code(s): J44.9 - Chronic obstructive pulmonary disease, unspecified Code(s): J44.9 - Chronic obstructive pulmonary disease, unspecified Status: Chronic Assessment and Plan: Still with some faint wheezing otherwise stable. Continue her home pulmicort, albuterol and monitor. Stop IV fluids (7) RLS (restless legs syndrome): Code(s): G25.81 - Restless legs syndrome Status: Chronic Assessment and Plan: Stable. Continue home requip. (8) Exocrine pancreatic insufficiency: Code(s): K86.81 - Exocrine pancreatic insufficiency Status: Chronic Assessment and Plan: Stable. Continue home creon with meals. (9) Falls: Qualifiers: Encounter type: initial encounter Qualified Code(s): W19.XXXA - Unspecified fall, initial encounter Code(s): W19.XXXA - Unspecified fall, initial encounter Status: Acute Assessment and Plan: Patient had been experiencing falls prior to this illness in fact is why she was admitted previously a couple weeks ago. Continue PT/OT. Discharge planning was recently at [place] with home health but appears she moved to SNF after we discharged her. ____
[2021-04-21] MEDS: CALCIUM GLUC 1,000 MG/NS 50 ML 1,000 MG/50 ML BAG 100 MG IVPB (18:59)
[2021-04-21] MEDS: traZODone HCL 50 MG TABLET 300 MG PO (20:56)
[2021-04-21] MEDS: rOPINIRole HCL 1 MG TABLET 2 MG PO (20:57)
[2021-04-21] MEDS: guaiFENesin 200 MG/10 ML UDC 100 MG PO (20:58)
[2021-04-22] VITALS (11 sets, daily range): BP systolic 102–136; BP diastolic 52–68; PULSE 88–101; RESP 14–20; TEMP 36.2–36.6; O2SAT 93–97
[2021-04-22] MEDS: ALBUTEROL SULFATE NEB 2.5 MG/0.5 ML INH INHALATION ×4 (03:08→20:33)
[2021-04-22] MEDS: VANCOMYCIN ORAL 125 MG/2.5 ML SYRUP PO ×3 (05:04→17:13)
[2021-04-22] MEDS: metroNIDAZOLE 500 MG/ISO 100ML 500 MG/100 ML BAG 100 MG IVPB ×3 (05:08→21:30)
[2021-04-22 06:39] LABS: Basophils Absolute Auto 0.1 K/mm3 (0.0-0.1); Basophils Percent Auto 0.4 % (0.2-1.2); Eosinophils Absolute Auto 0.4 K/mm3 (0-0.3); Eosinophils Percent Auto 1.3 % (0-4.4); Hematocrit 29.5 % (37.0-47.0); Immature Granulocyte Absolute 1.59 K/mm3 (0.00-0.031); Immature Granulocyte Percent A 5.1 % (0-0.5); Lymphocytes Absolute Auto 0.98 K/mm3 (0.9-3.2); Lymphocytes Percent Auto 3.2 % (18.3-44.2); Mean Corpuscular HGB Conc 30.5 g/dl (32-36); Mean Corpuscular Volume 95.2 fl (80-100); Mean Platelet Volume 11.1 fl (7.4-10.4); Monocytes Absolute Auto 0.9 K/mm3 (0.1-0.6); Platelet Count Result 349 k/mm3 (150-375)
[2021-04-22 07:20] LABS: Albumin Level 2.6 g/dL (3.5-5.1); Anion Gap 11 mmol/L (8-16); Blood Urea Nitrogen 14 mg/dL (7-17); Calcium 7.6 mg/dL (8.4-10.2); Carbon Dioxide 26 mmol/L (22-30); Chloride 95 mmol/L (98-107); Estimated CRCL calculation 59 ml/min; Estimated Glomerular Filt Rate > 60; Glucose 126 mg/dL (65-110); Magnesium 1.8 mg/dL (1.6-2.3); Phosphorus 2.9 mg/dL (2.5-4.5); Potassium 3.2 mmol/L (3.4-5.0); Sodium 132 mmol/L (137-145)
--- NOTE | 2021-04-22 07:41 | PC.NURSE ---
Patient appeared to have increased confusion, pulling off her oxygen twice which appeared to increase confusion. She also pulled out her IV, calling it and it's dressing garbage while leaking moderate amounts of blood onto her blankets and sheet.
[2021-04-22 07:45] LABS: Vitamin B12 > 1000.0 pg/mL (239-931)
[2021-04-22 08:02] LABS: Iron 35 ug/dL (37-170)
[2021-04-22 08:15] LABS: Percent Iron Saturation 22 % (20-50)
[2021-04-22] MEDS: LIPASE/AMYLASE/PROTEASE 12,000 UNITS CAP 2 CAP PO ×3 (09:15→17:13)
[2021-04-22] MEDS: POTASSIUM CHLORIDE 20 MEQ TABLET PO (09:16)
[2021-04-22] MEDS: DICYCLOMINE HCL 10 MG CAPSULE PO (09:16)
[2021-04-22] MEDS: DULoxetine HCL 60 MG CAPSULE.DR PO (09:16)
[2021-04-22] MEDS: FIDAXOMICIN 200 MG TABLET PO ×2 (09:16→21:27)
[2021-04-22] MEDS: SACCHAROMYCES BOULARDII 250 MG CAPSULE PO ×2 (09:16→17:13)
[2021-04-22] MEDS: ASPIRIN 81 MG CHEWABLE TABLET PO (09:16)
[2021-04-22] MEDS: PANTOPRAZOLE 40 MG TABLET PO ×2 (09:16→17:13)
[2021-04-22] MEDS: PREGABALIN (*CRX) 75 MG CAPSULE 150 MG PO ×2 (09:16→17:12)
[2021-04-22] MEDS: ATORVASTATIN 40 MG TABLET 80 MG PO (09:16)
[2021-04-22] MEDS: MAGNESIUM OXIDE 400 MG TABLET PO (09:16)
[2021-04-22] MEDS: MECLIZINE HCL 12.5 MG TABLET PO (09:17)
[2021-04-22] MEDS: ENOXAPARIN 40 MG/0.4 ML SYRINGE SUB-Q (09:17)
[2021-04-22] MEDS: FERROUS SULFATE 324 MG TABLET PO (09:17)
[2021-04-22] MEDS: FOLIC ACID 1 MG TABLET PO (09:17)
[2021-04-22] MEDS: LORATADINE 10 MG TABLET PO (09:17)
[2021-04-22] MEDS: AZELASTINE HCL NASAL 0.1% 137 MCG/SPR 30 ML BTL 1 SPRAY NASAL ×2 (09:17→21:28)
[2021-04-22] MEDS: BUDESONIDE RESPULE NEB 0.5 MG/2 ML AMP INHALATION ×2 (09:35→20:35)
[2021-04-22 13:56] LABS: Folic Acid > 20.0 ng/mL (2.76->20)
--- NOTE | 2021-04-22 16:58 | P.PNIM_ITS ---
Progress Note: A&P Assessment and Plan (1) Colitis: Code(s): K52.9 - Noninfective gastroenteritis and colitis, unspecified Status: Acute Assessment and Plan: * Patient presents from nursing facility due to altered mental status. Found to have sepsis with marked leukocytosis and evidence of pancolitis noted on CT. * Recently discharged from our facility and completed 7-day course of antibiotics 04/09/21 for treatment of E coli UTI. * C diff toxin detected. Continue oral vancomycin and IV Flagyl (day 5); Fidaxomicin added for severity (day 2) * Stool guaiac positive but not unexpected with the colitis * WBC down to 31K. Abd more distended but still having BMs. Check KUB to exclude ileus. * Continue supportive care with abx, analgesics and antiemetics as needed. Continue low residue diet; continue Banatrol. * Encourage oral intake. * Appreciate GI consultation. KUB showing no dilated loops of bowel (2) Sepsis: Qualifiers: Sepsis acute organ dysfunction status: unspecified Sepsis type: sepsis due to unspecified organism Qualified Code(s): A41.9 - Sepsis, unspecified organism Code(s): A41.9 - Sepsis, unspecified organism Status: Acute Assessment and Plan: * Evident on arrival by fever, tachycardia and marked leukocytosis trending up. Lactic acid 1.1 on arrival. * Suspected source is C diff colitis. Abx as above. * Chronic pulmonary findings on imaging appear stable - COVID PCR is negative. Atelectasis - encourage IS. * Na stable at 132 and improved off IV fluids * Monitor vital signs and urine output. (3) Altered mental status: Qualifiers: Altered mental status type: disorientation Qualified Code(s): R41.0 - Disorientation, unspecified Code(s): R41.82 - Altered mental status, unspecified Status: Acute Assessment and Plan: * Suspect metabolic encephalopathy secondary to sepsis and colitis. * May have underlying dementia contributing to the confusion * Calcium 7.6. * Continue treatment as above and monitor. Follow (4) ILD (interstitial lung disease): Code(s): J84.9 - Interstitial pulmonary disease, unspecified Status: Chronic Assessment and Plan: * Stable. Bibasilar crackles on exam is chronic. (5) Chronic hypoxemic respiratory failure: Code(s): J96.11 - Chronic respiratory failure with hypoxia Status: Chronic Assessment and Plan: * Stable. Remains on 2L home O2. (6) COPD (chronic obstructive pulmonary disease): Qualifiers: COPD type: unspecified COPD Qualified Code(s): J44.9 - Chronic obstructive pulmonary disease, unspecified Code(s): J44.9 - Chronic obstructive pulmonary disease, unspecified Status: Chronic Assessment and Plan: * Few scattered rhonchi but overall stable. Continue her home Pulmicort and Albuterol. * Continue to monitor. (7) RLS (restless legs syndrome): Code(s): G25.81 - Restless legs syndrome Status: Chronic Assessment and Plan: * Stable. Continue home Requip. (8) Exocrine pancreatic insufficiency: Code(s): K86.81 - Exocrine pancreatic insufficiency Status: Chronic Assessment and Plan: * Stable. Continue home Creon with meals.
--- NOTE | 2021-04-22 16:58 | PM.IMPN ---
Progress Note: A&P Assessment and Plan (1) Colitis: Code(s): K52.9 - Noninfective gastroenteritis and colitis, unspecified Status: Acute Assessment and Plan: Patient presents from nursing facility due to altered mental status. Found to have sepsis with marked leukocytosis and evidence of pancolitis noted on CT. Recently discharged from our facility and completed 7-day course of antibiotics 04/09/21 for treatment of E coli UTI. C diff toxin detected. Continue oral vancomycin and IV Flagyl (day 5); Fidaxomicin added for severity (day 2) Stool guaiac positive but not unexpected with the colitis WBC down to 31K. Abd more distended but still having BMs. Check KUB to exclude ileus. Continue supportive care with abx, analgesics and antiemetics as needed. Continue low residue diet; continue Banatrol. Encourage oral intake. Appreciate GI consultation. KUB showing no dilated loops of bowel (2) Sepsis: Qualifiers: Sepsis acute organ dysfunction status: unspecified Sepsis type: sepsis due to unspecified organism Qualified Code(s): A41.9 - Sepsis, unspecified organism Code(s): A41.9 - Sepsis, unspecified organism Status: Acute Assessment and Plan: Evident on arrival by fever, tachycardia and marked leukocytosis trending up. Lactic acid 1.1 on arrival. Suspected source is C diff colitis. Abx as above. Chronic pulmonary findings on imaging appear stable - COVID PCR is negative. Atelectasis - encourage IS. Na stable at 132 and improved off IV fluids Monitor vital signs and urine output. (3) Altered mental status: Qualifiers: Altered mental status type: disorientation Qualified Code(s): R41.0 - Disorientation, unspecified Code(s): R41.82 - Altered mental status, unspecified Status: Acute Assessment and Plan: Suspect metabolic encephalopathy secondary to sepsis and colitis. May have underlying dementia contributing to the confusion Calcium 7.6. Continue treatment as above and monitor. Follow (4) ILD (interstitial lung disease): Code(s): J84.9 - Interstitial pulmonary disease, unspecified Status: Chronic Assessment and Plan: Stable. Bibasilar crackles on exam is chronic. (5) Chronic hypoxemic respiratory failure: Code(s): J96.11 - Chronic respiratory failure with hypoxia Status: Chronic Assessment and Plan: Stable. Remains on 2L home O2. (6) COPD (chronic obstructive pulmonary disease): Qualifiers: COPD type: unspecified COPD Qualified Code(s): J44.9 - Chronic obstructive pulmonary disease, unspecified Code(s): J44.9 - Chronic obstructive pulmonary disease, unspecified Status: Chronic Assessment and Plan: Few scattered rhonchi but overall stable. Continue her home Pulmicort and Albuterol. Continue to monitor. (7) RLS (restless legs syndrome): Code(s): G25.81 - Restless legs syndrome Status: Chronic Assessment and Plan: Stable. Continue home Requip. (8) Exocrine pancreatic insufficiency: Code(s): K86.81 - Exocrine pancreatic insufficiency Status: Chronic Assessment and Plan: Stable. Continue home Creon with meals. (9) Falls: Qualifiers: Encounter type: initial encounter Qualified Code(s): W19.XXXA - Unspecified fall, initial encounter Code(s): W19.XXXA - Unspecified fall, initial encounter Status: Acute Assessment and Plan: Patient had been experiencing falls prior to this illness in fact is why she was admitted previously a couple weeks ago.
[2021-04-22] MEDS: ACETAMINOPHEN 325 MG TABLET 650 MG PO (17:20)
[2021-04-22] MEDS: rOPINIRole HCL 1 MG TABLET 2 MG PO (21:27)
[2021-04-22] MEDS: traZODone HCL 50 MG TABLET 300 MG PO (21:27)
[2021-04-23] VITALS (13 sets, daily range): BP systolic 108–131; BP diastolic 62–65; PULSE 80–92; RESP 14–20; TEMP 36.1–36.8; O2SAT 90–97
[2021-04-23] MEDS: VANCOMYCIN ORAL 125 MG/2.5 ML SYRUP PO ×5 (00:11→23:22)
[2021-04-23] MEDS: ALBUTEROL SULFATE NEB 2.5 MG/0.5 ML INH INHALATION ×5 (01:09→16:53)
[2021-04-23] MEDS: metroNIDAZOLE 500 MG/ISO 100ML 500 MG/100 ML BAG 100 MG IVPB ×3 (05:30→22:38)
[2021-04-23 06:50] LABS: Basophils Absolute Auto 0.1 K/mm3 (0.0-0.1); Basophils Percent Auto 0.5 % (0.2-1.2); Eosinophils Absolute Auto 0.5 K/mm3 (0-0.3); Eosinophils Percent Auto 1.8 % (0-4.4); Hematocrit 30.8 % (37.0-47.0); Hemoglobin 9.4 g/dL (12.0-15.0); Immature Granulocyte Absolute 1.58 K/mm3 (0.00-0.031); Immature Granulocyte Percent A 5.6 % (0-0.5); Lymphocytes Absolute Auto 1.14 K/mm3 (0.9-3.2); Mean Corpuscular HGB Conc 30.5 g/dl (32-36); Mean Corpuscular Hemoglobin 29.3 pg (26-34); Monocytes Percent Auto 3.3 % (2.6-8.5); Neutrophils Absolute Auto 24.1 K/mm3 (1.3-6.7); Neutrophils Percent Auto 84.8 % (45.5-73.1); Nucleated Red Blood Cells Perc 0.1 % (0.0-0.2); Platelet Count Result 361 k/mm3 (150-375); Red Blood Count 3.21 M/mm3 (4.2-5.4); White Blood Count 28.4 K/mm3 (4.5-10.0)
[2021-04-23 07:06] LABS: Anion Gap 6 mmol/L (8-16); Blood Urea Nitrogen 9 mg/dL (7-17); Calcium 7.9 mg/dL (8.4-10.2); Carbon Dioxide 30 mmol/L (22-30); Chloride 97 mmol/L (98-107); Estimated CRCL calculation 68 ml/min; Estimated Glomerular Filt Rate > 60; Glucose 132 mg/dL (65-110); Sodium 133 mmol/L (137-145)
[2021-04-23] MEDS: BUDESONIDE RESPULE NEB 0.5 MG/2 ML AMP INHALATION (08:34)
[2021-04-23] MEDS: LIPASE/AMYLASE/PROTEASE 12,000 UNITS CAP 2 CAP PO ×3 (08:38→17:55)
[2021-04-23] MEDS: SACCHAROMYCES BOULARDII 250 MG CAPSULE PO ×2 (08:39→17:55)
[2021-04-23] MEDS: ASPIRIN 81 MG CHEWABLE TABLET PO (08:39)
[2021-04-23] MEDS: DULoxetine HCL 60 MG CAPSULE.DR PO (08:39)
[2021-04-23] MEDS: MECLIZINE HCL 12.5 MG TABLET PO (08:39)
[2021-04-23] MEDS: BENZONATATE 100 MG CAPSULE 200 MG PO (08:39)
[2021-04-23] MEDS: PANTOPRAZOLE 40 MG TABLET PO ×2 (08:39→17:56)
[2021-04-23] MEDS: FIDAXOMICIN 200 MG TABLET PO ×2 (08:40→22:27)
[2021-04-23] MEDS: FERROUS SULFATE 324 MG TABLET PO (08:40)
[2021-04-23] MEDS: ATORVASTATIN 40 MG TABLET 80 MG PO (08:40)
[2021-04-23] MEDS: DICYCLOMINE HCL 10 MG CAPSULE PO (08:40)
[2021-04-23] MEDS: MAGNESIUM OXIDE 400 MG TABLET PO (08:40)
[2021-04-23] MEDS: LORATADINE 10 MG TABLET PO (08:40)
[2021-04-23] MEDS: FOLIC ACID 1 MG TABLET PO (08:41)
[2021-04-23] MEDS: ENOXAPARIN 40 MG/0.4 ML SYRINGE SUB-Q (08:41)
[2021-04-23] MEDS: AZELASTINE HCL NASAL 0.1% 137 MCG/SPR 30 ML BTL 1 SPRAY NASAL (08:41)
[2021-04-23] MEDS: PREGABALIN (*CRX) 75 MG CAPSULE 150 MG PO ×2 (08:43→17:55)
[2021-04-23] MEDS: ACETAMINOPHEN 325 MG TABLET 650 MG PO ×2 (08:43→22:39)
[2021-04-23] MEDS: traMADol HCL (*CRX) 50 MG TABLET PO (13:02)
--- NOTE | 2021-04-23 16:23 | P.PNIM_ITS ---
Progress Note: A&P Assessment and Plan (1) Colitis: Code(s): K52.9 - Noninfective gastroenteritis and colitis, unspecified Status: Acute Assessment and Plan: * on admission with sepsis with marked leukocytosis and evidence of pancolitis noted on CT * Recently discharged from our facility and completed 7-day course of antibiotics 04/09/21 for treatment of E coli UTI * C diff toxin detected. Continue oral vancomycin and IV Flagyl (day 6); Fidaxomicin added for severity (day 3) * Stool guaiac positive but not unexpected with the colitis * WBC trending down to 31-->28 today * Abd more distended but still having BMs * KUB neg or obstruction * Continue low residue diet * Continue Banatrol * Encourage oral intake * GI following, recommendations appreciated (2) Sepsis: Qualifiers: Sepsis acute organ dysfunction status: unspecified Sepsis type: sepsis due to unspecified organism Qualified Code(s): A41.9 - Sepsis, unspecified organism Code(s): A41.9 - Sepsis, unspecified organism Status: Acute Assessment and Plan: * On admission fever, tachycardia and marked leukocytosis trending up. Lactic acid 1.1 on arrival. * Suspected source is C diff colitis. Abx as above. * Chronic pulmonary findings on imaging appear stable - COVID PCR is negative. Atelectasis - encourage IS (3) Altered mental status: Qualifiers: Altered mental status type: disorientation Qualified Code(s): R41.0 - Disorientation, unspecified Code(s): R41.82 - Altered mental status, unspecified Status: Acute Assessment and Plan: * Suspect metabolic encephalopathy secondary to sepsis and colitis. * May have underlying dementia contributing to the confusion * Calcium 7.6-->7.9 today * Continue treatment as above and monitor (4) ILD (interstitial lung disease): Code(s): J84.9 - Interstitial pulmonary disease, unspecified Status: Chronic Assessment and Plan: * Stable (5) Chronic hypoxemic respiratory failure: Code(s): J96.11 - Chronic respiratory failure with hypoxia Status: Chronic Assessment and Plan: * Stable * Remains on 2L home O2 (6) COPD (chronic obstructive pulmonary disease): Qualifiers: COPD type: unspecified COPD Qualified Code(s): J44.9 - Chronic obstructive pulmonary disease, unspecified Code(s): J44.9 - Chronic obstructive pulmonary disease, unspecified Status: Chronic Assessment and Plan: Continue her home Pulmicort and Albuterol. (7) RLS (restless legs syndrome): Code(s): G25.81 - Restless legs syndrome Status: Chronic Assessment and Plan: * Stable * Continue home Requip (8) Exocrine pancreatic insufficiency: Code(s): K86.81 - Exocrine pancreatic insufficiency Status: Chronic Assessment and Plan: * Stable * Continue home Creon with meals (9) Falls: Qualifiers: Encounter type: initial encounter Qualified Code(s): W19.XXXA - Unspecified fall, initial encounter Code(s): W19.XXXA - Unspecified fall, initial encounter Status: Acute Assessment and Plan: * [place]
--- NOTE | 2021-04-23 16:23 | PM.IMPN ---
Progress Note: A&P Assessment and Plan (1) Colitis: Code(s): K52.9 - Noninfective gastroenteritis and colitis, unspecified Status: Acute Assessment and Plan: on admission with sepsis with marked leukocytosis and evidence of pancolitis noted on CT Recently discharged from our facility and completed 7-day course of antibiotics 04/09/21 for treatment of E coli UTI C diff toxin detected. Continue oral vancomycin and IV Flagyl (day 6); Fidaxomicin added for severity (day 3) Stool guaiac positive but not unexpected with the colitis WBC trending down to 31-->28 today Abd more distended but still having BMs KUB neg or obstruction Continue low residue diet Continue Banatrol Encourage oral intake GI following, recommendations appreciated (2) Sepsis: Qualifiers: Sepsis acute organ dysfunction status: unspecified Sepsis type: sepsis due to unspecified organism Qualified Code(s): A41.9 - Sepsis, unspecified organism Code(s): A41.9 - Sepsis, unspecified organism Status: Acute Assessment and Plan: On admission fever, tachycardia and marked leukocytosis trending up. Lactic acid 1.1 on arrival. Suspected source is C diff colitis. Abx as above. Chronic pulmonary findings on imaging appear stable - COVID PCR is negative. Atelectasis - encourage IS (3) Altered mental status: Qualifiers: Altered mental status type: disorientation Qualified Code(s): R41.0 - Disorientation, unspecified Code(s): R41.82 - Altered mental status, unspecified Status: Acute Assessment and Plan: Suspect metabolic encephalopathy secondary to sepsis and colitis. May have underlying dementia contributing to the confusion Calcium 7.6-->7.9 today Continue treatment as above and monitor (4) ILD (interstitial lung disease): Code(s): J84.9 - Interstitial pulmonary disease, unspecified Status: Chronic Assessment and Plan: Stable (5) Chronic hypoxemic respiratory failure: Code(s): J96.11 - Chronic respiratory failure with hypoxia Status: Chronic Assessment and Plan: Stable Remains on 2L home O2 (6) COPD (chronic obstructive pulmonary disease): Qualifiers: COPD type: unspecified COPD Qualified Code(s): J44.9 - Chronic obstructive pulmonary disease, unspecified Code(s): J44.9 - Chronic obstructive pulmonary disease, unspecified Status: Chronic Assessment and Plan: Continue her home Pulmicort and Albuterol. (7) RLS (restless legs syndrome): Code(s): G25.81 - Restless legs syndrome Status: Chronic Assessment and Plan: Stable Continue home Requip (8) Exocrine pancreatic insufficiency: Code(s): K86.81 - Exocrine pancreatic insufficiency Status: Chronic Assessment and Plan: Stable Continue home Creon with meals (9) Falls: Qualifiers: Encounter type: initial encounter Qualified Code(s): W19.XXXA - Unspecified fall, initial encounter Code(s): W19.XXXA - Unspecified fall, initial encounter Status: Acute Assessment and Plan: Patient known to have frequent falls, recent admission for falls a couple weeks ago. Continue PT/OT Discharge planning was recently at [facility] with home health but appears she moved to SNF after discharge Plan to return to SNF at discharge Additional Plan Anemia - Iron studies noted and related to anemia of chronic disease. B12 and folate normal. Monitor HH and transfuse as needed. Subjective Date/time seen: 0
[2021-04-23] MEDS: rOPINIRole HCL 1 MG TABLET 2 MG PO (22:27)
[2021-04-23] MEDS: traZODone HCL 50 MG TABLET 300 MG PO (22:28)
[2021-04-24] VITALS (18 sets, daily range): BP systolic 82–118; BP diastolic 44–64; PULSE 68–88; RESP 16–20; TEMP 36.1–36.7; O2SAT 92–96
[2021-04-24] MEDS: ALBUTEROL SULFATE NEB 2.5 MG/0.5 ML INH INHALATION ×6 (01:39→19:47)
[2021-04-24] MEDS: metroNIDAZOLE 500 MG/ISO 100ML 500 MG/100 ML BAG 100 MG IVPB ×3 (05:21→21:39)
[2021-04-24] MEDS: VANCOMYCIN ORAL 125 MG/2.5 ML SYRUP PO ×3 (05:22→18:24)
[2021-04-24 07:29] LABS: Basophils Absolute Auto 0.1 K/mm3 (0.0-0.1); Basophils Percent Auto 0.4 % (0.2-1.2); Eosinophils Absolute Auto 0.7 K/mm3 (0-0.3); Eosinophils Percent Auto 2.8 % (0-4.4); Hematocrit 31.3 % (37.0-47.0); Hemoglobin 9.5 g/dL (12.0-15.0); Immature Granulocyte Absolute 1.53 K/mm3 (0.00-0.031); Immature Granulocyte Percent A 6.6 % (0-0.5); Lymphocytes Absolute Auto 1.43 K/mm3 (0.9-3.2); Lymphocytes Percent Auto 6.1 % (18.3-44.2); Mean Corpuscular HGB Conc 30.4 g/dl (32-36); Mean Corpuscular Hemoglobin 29.4 pg (26-34); Mean Corpuscular Volume 96.9 fl (80-100); Mean Platelet Volume 10.8 fl (7.4-10.4); Monocytes Absolute Auto 0.9 K/mm3 (0.1-0.6); Monocytes Percent Auto 3.8 % (2.6-8.5); Neutrophils Absolute Auto 18.8 K/mm3 (1.3-6.7); Neutrophils Percent Auto 80.3 % (45.5-73.1); Platelet Count Result 350 k/mm3 (150-375); Red Blood Count 3.23 M/mm3 (4.2-5.4); White Blood Count 23.4 K/mm3 (4.5-10.0)
[2021-04-24 07:49] LABS: Anion Gap 4 mmol/L (8-16); Blood Urea Nitrogen 7 mg/dL (7-17); Carbon Dioxide 33 mmol/L (22-30); Chloride 99 mmol/L (98-107); Estimated CRCL calculation 68 ml/min; Estimated Glomerular Filt Rate > 60; Glucose 139 mg/dL (65-110); Potassium 3.1 mmol/L (3.4-5.0); Sodium 136 mmol/L (137-145)
[2021-04-24] MEDS: BENZONATATE 100 MG CAPSULE 200 MG PO (08:41)
[2021-04-24] MEDS: FERROUS SULFATE 324 MG TABLET PO (08:41)
[2021-04-24] MEDS: ASPIRIN 81 MG CHEWABLE TABLET PO (08:41)
[2021-04-24] MEDS: SACCHAROMYCES BOULARDII 250 MG CAPSULE PO ×2 (08:42→17:00)
[2021-04-24] MEDS: DICYCLOMINE HCL 10 MG CAPSULE PO (08:42)
[2021-04-24] MEDS: LORATADINE 10 MG TABLET PO (08:42)
[2021-04-24] MEDS: MECLIZINE HCL 12.5 MG TABLET PO (08:42)
[2021-04-24] MEDS: DULoxetine HCL 60 MG CAPSULE.DR PO (08:42)
[2021-04-24] MEDS: ATORVASTATIN 40 MG TABLET 80 MG PO (08:42)
[2021-04-24] MEDS: FIDAXOMICIN 200 MG TABLET PO ×2 (08:42→21:42)
[2021-04-24] MEDS: LIPASE/AMYLASE/PROTEASE 12,000 UNITS CAP 2 CAP PO ×3 (08:42→17:00)
[2021-04-24] MEDS: FOLIC ACID 1 MG TABLET PO (08:43)
[2021-04-24] MEDS: MAGNESIUM OXIDE 400 MG TABLET PO (08:43)
[2021-04-24] MEDS: PANTOPRAZOLE 40 MG TABLET PO ×2 (08:43→17:00)
[2021-04-24] MEDS: AZELASTINE HCL NASAL 0.1% 137 MCG/SPR 30 ML BTL 1 SPRAY NASAL (08:43)
[2021-04-24] MEDS: ENOXAPARIN 40 MG/0.4 ML SYRINGE SUB-Q (08:43)
[2021-04-24] MEDS: ACETAMINOPHEN 325 MG TABLET 650 MG PO ×2 (08:45→21:47)
[2021-04-24] MEDS: PREGABALIN (*CRX) 75 MG CAPSULE 150 MG PO ×2 (08:46→17:00)
[2021-04-24] MEDS: BUDESONIDE RESPULE NEB 0.5 MG/2 ML AMP INHALATION ×2 (08:53→19:47)
[2021-04-24] MEDS: traMADol HCL (*CRX) 50 MG TABLET PO ×2 (13:28→17:03)
--- NOTE | 2021-04-24 14:37 | P.PNIM_ITS ---
Progress Note: A&P Assessment and Plan (1) Colitis: Code(s): K52.9 - Noninfective gastroenteritis and colitis, unspecified Status: Acute Assessment and Plan: * on admission with sepsis with marked leukocytosis and evidence of pancolitis noted on CT * Recently discharged from our facility and completed 7-day course of antibiotics 04/09/21 for treatment of E coli UTI * C diff toxin detected. Continue oral vancomycin and IV Flagyl (day 7); Fidaxomicin added for severity (day 4) * Stool guaiac positive but not unexpected with the colitis * WBC trending down to 31-->28 today * Abd more distended but still having BMs * KUB neg or obstruction * Continue low residue diet * Continue Banatrol * Encourage oral intake * GI following, recommendations appreciated (2) Sepsis: Qualifiers: Sepsis acute organ dysfunction status: unspecified Sepsis type: sepsis due to unspecified organism Qualified Code(s): A41.9 - Sepsis, unspecified organism Code(s): A41.9 - Sepsis, unspecified organism Status: Acute Assessment and Plan: * On admission fever, tachycardia and marked leukocytosis trending up. Lactic acid 1.1 on arrival. * Suspected source is C diff colitis. Abx as above. * Chronic pulmonary findings on imaging appear stable - COVID PCR is negative. Atelectasis - encourage IS (3) Altered mental status: Qualifiers: Altered mental status type: disorientation Qualified Code(s): R41.0 - Disorientation, unspecified Code(s): R41.82 - Altered mental status, unspecified Status: Acute Assessment and Plan: * Suspect metabolic encephalopathy secondary to sepsis and colitis. * May have underlying dementia contributing to the confusion * Calcium 7.6-->7.9-->8.0 today * Continue treatment as above and monitor (4) ILD (interstitial lung disease): Code(s): J84.9 - Interstitial pulmonary disease, unspecified Status: Chronic Assessment and Plan: * Stable (5) Chronic hypoxemic respiratory failure: Code(s): J96.11 - Chronic respiratory failure with hypoxia Status: Chronic Assessment and Plan: * Stable * Remains on 2L home O2 (6) COPD (chronic obstructive pulmonary disease): Qualifiers: COPD type: unspecified COPD Qualified Code(s): J44.9 - Chronic obstructive pulmonary disease, unspecified Code(s): J44.9 - Chronic obstructive pulmonary disease, unspecified Status: Chronic Assessment and Plan: IS Continue her home Pulmicort and Albuterol (7) RLS (restless legs syndrome): Code(s): G25.81 - Restless legs syndrome Status: Chronic Assessment and Plan: * Stable * Continue home Requip (8) Exocrine pancreatic insufficiency: Code(s): K86.81 - Exocrine pancreatic insufficiency Status: Chronic Assessment and Plan: * Stable * Continue home Creon with meals (9) Falls: Qualifiers: Encounter type: initial encounter Qualified Code(s): W19.XXXA - Unspecified fall, initial encounter Code(s): W19.XXXA - Unspecified fall, initial encounter Status: Acute Assessment and Plan:
--- NOTE | 2021-04-24 14:37 | PM.IMPN ---
Progress Note: A&P Assessment and Plan (1) Colitis: Code(s): K52.9 - Noninfective gastroenteritis and colitis, unspecified Status: Acute Assessment and Plan: on admission with sepsis with marked leukocytosis and evidence of pancolitis noted on CT Recently discharged from our facility and completed 7-day course of antibiotics 04/09/21 for treatment of E coli UTI C diff toxin detected. Continue oral vancomycin and IV Flagyl (day 7); Fidaxomicin added for severity (day 4) Stool guaiac positive but not unexpected with the colitis WBC trending down to 31-->28 today Abd more distended but still having BMs KUB neg or obstruction Continue low residue diet Continue Banatrol Encourage oral intake GI following, recommendations appreciated (2) Sepsis: Qualifiers: Sepsis acute organ dysfunction status: unspecified Sepsis type: sepsis due to unspecified organism Qualified Code(s): A41.9 - Sepsis, unspecified organism Code(s): A41.9 - Sepsis, unspecified organism Status: Acute Assessment and Plan: On admission fever, tachycardia and marked leukocytosis trending up. Lactic acid 1.1 on arrival. Suspected source is C diff colitis. Abx as above. Chronic pulmonary findings on imaging appear stable - COVID PCR is negative. Atelectasis - encourage IS (3) Altered mental status: Qualifiers: Altered mental status type: disorientation Qualified Code(s): R41.0 - Disorientation, unspecified Code(s): R41.82 - Altered mental status, unspecified Status: Acute Assessment and Plan: Suspect metabolic encephalopathy secondary to sepsis and colitis. May have underlying dementia contributing to the confusion Calcium 7.6-->7.9-->8.0 today Continue treatment as above and monitor (4) ILD (interstitial lung disease): Code(s): J84.9 - Interstitial pulmonary disease, unspecified Status: Chronic Assessment and Plan: Stable (5) Chronic hypoxemic respiratory failure: Code(s): J96.11 - Chronic respiratory failure with hypoxia Status: Chronic Assessment and Plan: Stable Remains on 2L home O2 (6) COPD (chronic obstructive pulmonary disease): Qualifiers: COPD type: unspecified COPD Qualified Code(s): J44.9 - Chronic obstructive pulmonary disease, unspecified Code(s): J44.9 - Chronic obstructive pulmonary disease, unspecified Status: Chronic Assessment and Plan: IS Continue her home Pulmicort and Albuterol (7) RLS (restless legs syndrome): Code(s): G25.81 - Restless legs syndrome Status: Chronic Assessment and Plan: Stable Continue home Requip (8) Exocrine pancreatic insufficiency: Code(s): K86.81 - Exocrine pancreatic insufficiency Status: Chronic Assessment and Plan: Stable Continue home Creon with meals (9) Falls: Qualifiers: Encounter type: initial encounter Qualified Code(s): W19.XXXA - Unspecified fall, initial encounter Code(s): W19.XXXA - Unspecified fall, initial encounter Status: Acute Assessment and Plan: Patient known to have frequent falls, recent admission for falls a couple weeks ago. Continue PT/OT Discharge planning was recently at [facility] with home health but appears she moved to SNF after discharge Plan to return to SNF at discharge Additional Plan Anemia - Iron studies noted and related to anemia of chronic disease. B12 and folate normal. Monitor HH and transfuse as needed. Subjective Date/time
[2021-04-24] MEDS: traZODone HCL 50 MG TABLET 300 MG PO (21:42)
[2021-04-24] MEDS: rOPINIRole HCL 1 MG TABLET 2 MG PO (21:43)
[2021-04-25] VITALS (18 sets, daily range): BP systolic 95–112; BP diastolic 54–60; PULSE 64–96; RESP 16–24; TEMP 36–36.9; O2SAT 93–96; BMI 10.0
[2021-04-25] MEDS: VANCOMYCIN ORAL 125 MG/2.5 ML SYRUP PO ×5 (00:10→23:50)
[2021-04-25] MEDS: ALBUTEROL SULFATE NEB 2.5 MG/0.5 ML INH INHALATION ×6 (00:53→23:59)
[2021-04-25] MEDS: metroNIDAZOLE 500 MG/ISO 100ML 500 MG/100 ML BAG 100 MG IVPB ×3 (05:38→21:04)
[2021-04-25] MEDS: traMADol HCL (*CRX) 50 MG TABLET PO ×2 (05:47→17:12)
[2021-04-25 06:58] LABS: Basophils Absolute Auto 0.2 K/mm3 (0.0-0.1); Basophils Percent Auto 0.7 % (0.2-1.2); Eosinophils Absolute Auto 0.7 K/mm3 (0-0.3); Eosinophils Percent Auto 3.4 % (0-4.4); Hematocrit 31.4 % (37.0-47.0); Hemoglobin 9.4 g/dL (12.0-15.0); Immature Granulocyte Absolute 1.54 K/mm3 (0.00-0.031); Immature Granulocyte Percent A 7.6 % (0-0.5); Lymphocytes Absolute Auto 1.91 K/mm3 (0.9-3.2); Lymphocytes Percent Auto 9.4 % (18.3-44.2); Mean Corpuscular HGB Conc 29.9 g/dl (32-36); Mean Corpuscular Hemoglobin 28.8 pg (26-34); Mean Corpuscular Volume 96.3 fl (80-100); Mean Platelet Volume 11.5 fl (7.4-10.4); Monocytes Percent Auto 4.7 % (2.6-8.5); Neutrophils Absolute Auto 15.1 K/mm3 (1.3-6.7); Neutrophils Percent Auto 74.2 % (45.5-73.1); Platelet Count Result 348 k/mm3 (150-375); Red Blood Count 3.26 M/mm3 (4.2-5.4); Red Cell Distribution Width 15.5 % (11.5-14.5); White Blood Count 20.4 K/mm3 (4.5-10.0)
[2021-04-25 07:18] LABS: Anion Gap 7 mmol/L (8-16); Blood Urea Nitrogen 5 mg/dL (7-17); Calcium 8.1 mg/dL (8.4-10.2); Carbon Dioxide 30 mmol/L (22-30); Chloride 100 mmol/L (98-107); Estimated CRCL calculation 68 ml/min; Estimated Glomerular Filt Rate > 60; Glucose 153 mg/dL (65-110); Potassium 3.5 mmol/L (3.4-5.0); Sodium 137 mmol/L (137-145)
[2021-04-25] MEDS: BUDESONIDE RESPULE NEB 0.5 MG/2 ML AMP INHALATION ×2 (08:07→20:28)
[2021-04-25] MEDS: ASPIRIN 81 MG CHEWABLE TABLET PO (08:23)
[2021-04-25] MEDS: LIPASE/AMYLASE/PROTEASE 12,000 UNITS CAP 2 CAP PO ×3 (08:24→17:13)
[2021-04-25] MEDS: MAGNESIUM OXIDE 400 MG TABLET PO (08:24)
[2021-04-25] MEDS: LORATADINE 10 MG TABLET PO (08:24)
[2021-04-25] MEDS: DICYCLOMINE HCL 10 MG CAPSULE PO (08:24)
[2021-04-25] MEDS: SACCHAROMYCES BOULARDII 250 MG CAPSULE PO ×2 (08:24→17:13)
[2021-04-25] MEDS: ATORVASTATIN 40 MG TABLET 80 MG PO (08:24)
[2021-04-25] MEDS: FERROUS SULFATE 324 MG TABLET PO (08:24)
[2021-04-25] MEDS: DULoxetine HCL 60 MG CAPSULE.DR PO (08:24)
[2021-04-25] MEDS: BENZONATATE 100 MG CAPSULE 200 MG PO (08:24)
[2021-04-25] MEDS: FIDAXOMICIN 200 MG TABLET PO ×2 (08:25→21:03)
[2021-04-25] MEDS: MECLIZINE HCL 12.5 MG TABLET PO (08:25)
[2021-04-25] MEDS: PANTOPRAZOLE 40 MG TABLET PO ×2 (08:25→17:13)
[2021-04-25] MEDS: ENOXAPARIN 40 MG/0.4 ML SYRINGE SUB-Q (08:25)
[2021-04-25] MEDS: FOLIC ACID 1 MG TABLET PO (08:25)
[2021-04-25] MEDS: PREGABALIN (*CRX) 75 MG CAPSULE 150 MG PO ×2 (08:29→17:12)
--- NOTE | 2021-04-25 08:39 | P.PN_ITS ---
Progress Note: A&P Assessment and Plan (1) Colitis: Code(s): K52.9 - Noninfective gastroenteritis and colitis, unspecified Status: Acute Assessment and Plan: * on admission with sepsis with marked leukocytosis and evidence of pancolitis noted on CT * Recently discharged from our facility and completed 7-day course of antibiotics 04/09/21 for treatment of E coli UTI * C diff toxin detected. Continue oral vancomycin D5 and IV Flagyl (day 8); Fidaxomicin added for severity (day 4) * Stool guaiac positive but not unexpected with the colitis * WBC trending down to 31-->28>23.1>20.4 * KUB neg or obstruction * Continue low residue diet * Continue Banatrol * Encourage oral intake * GI following, recommendations appreciated (2) Sepsis: Qualifiers: Sepsis acute organ dysfunction status: unspecified Sepsis type: sepsis due to unspecified organism Qualified Code(s): A41.9 - Sepsis, unspecified organism Code(s): A41.9 - Sepsis, unspecified organism Status: Acute Assessment and Plan: * resolved * On admission fever, tachycardia and marked leukocytosis trending up. Lactic acid 1.1 on arrival. * Suspected source is C diff colitis. Abx as above. * Chronic pulmonary findings on imaging appear stable - COVID PCR is negative. Atelectasis - encourage IS (3) Altered mental status: Qualifiers: Altered mental status type: disorientation Qualified Code(s): R41.0 - Disorientation, unspecified Code(s): R41.82 - Altered mental status, unspecified Status: Acute Assessment and Plan: * Suspect metabolic encephalopathy secondary to sepsis and colitis. * May have underlying dementia contributing to the confusion * Calcium 7.6-->7.9-->8.0 >8.1 * Continue treatment as above and monitor (4) ILD (interstitial lung disease): Code(s): J84.9 - Interstitial pulmonary disease, unspecified Status: Chronic Assessment and Plan: * Stable (5) Chronic hypoxemic respiratory failure: Code(s): J96.11 - Chronic respiratory failure with hypoxia Status: Chronic Assessment and Plan: * Stable * Remains on 2L home O2 (6) COPD (chronic obstructive pulmonary disease): Qualifiers: COPD type: unspecified COPD Qualified Code(s): J44.9 - Chronic obstructive pulmonary disease, unspecified Code(s): J44.9 - Chronic obstructive pulmonary disease, unspecified Status: Chronic Assessment and Plan: IS Continue her home Pulmicort and Albuterol (7) RLS (restless legs syndrome): Code(s): G25.81 - Restless legs syndrome Status: Chronic Assessment and Plan: * Stable * Continue home Requip (8) Exocrine pancreatic insufficiency: Code(s): K86.81 - Exocrine pancreatic insufficiency Status: Chronic Assessment and Plan: * Stable * Continue home Creon with meals (9) Falls: Qualifiers: Encounter type: initial encounter Qualified Code(s): W19.XXXA - Unspecified fall, initial encounter Code(s): W19.XXXA - Unspecified fall, initial encounter Status: Acute Assessment and Plan: * Patient known to have frequent falls, recent admission for falls a couple weeks ago. * Continue PT/OT * Discharge planning was recently at [place] with home health but appear
--- NOTE | 2021-04-25 08:39 | WPDPN ---
Progress Note: A&P Assessment and Plan (1) Colitis: Code(s): K52.9 - Noninfective gastroenteritis and colitis, unspecified Status: Acute Assessment and Plan: on admission with sepsis with marked leukocytosis and evidence of pancolitis noted on CT Recently discharged from our facility and completed 7-day course of antibiotics 04/09/21 for treatment of E coli UTI C diff toxin detected. Continue oral vancomycin D5 and IV Flagyl (day 8); Fidaxomicin added for severity (day 4) Stool guaiac positive but not unexpected with the colitis WBC trending down to 31-->28>23.1>20.4 KUB neg or obstruction Continue low residue diet Continue Banatrol Encourage oral intake GI following, recommendations appreciated (2) Sepsis: Qualifiers: Sepsis acute organ dysfunction status: unspecified Sepsis type: sepsis due to unspecified organism Qualified Code(s): A41.9 - Sepsis, unspecified organism Code(s): A41.9 - Sepsis, unspecified organism Status: Acute Assessment and Plan: resolved On admission fever, tachycardia and marked leukocytosis trending up. Lactic acid 1.1 on arrival. Suspected source is C diff colitis. Abx as above. Chronic pulmonary findings on imaging appear stable - COVID PCR is negative. Atelectasis - encourage IS (3) Altered mental status: Qualifiers: Altered mental status type: disorientation Qualified Code(s): R41.0 - Disorientation, unspecified Code(s): R41.82 - Altered mental status, unspecified Status: Acute Assessment and Plan: Suspect metabolic encephalopathy secondary to sepsis and colitis. May have underlying dementia contributing to the confusion Calcium 7.6-->7.9-->8.0 >8.1 Continue treatment as above and monitor (4) ILD (interstitial lung disease): Code(s): J84.9 - Interstitial pulmonary disease, unspecified Status: Chronic Assessment and Plan: Stable (5) Chronic hypoxemic respiratory failure: Code(s): J96.11 - Chronic respiratory failure with hypoxia Status: Chronic Assessment and Plan: Stable Remains on 2L home O2 (6) COPD (chronic obstructive pulmonary disease): Qualifiers: COPD type: unspecified COPD Qualified Code(s): J44.9 - Chronic obstructive pulmonary disease, unspecified Code(s): J44.9 - Chronic obstructive pulmonary disease, unspecified Status: Chronic Assessment and Plan: IS Continue her home Pulmicort and Albuterol (7) RLS (restless legs syndrome): Code(s): G25.81 - Restless legs syndrome Status: Chronic Assessment and Plan: Stable Continue home Requip (8) Exocrine pancreatic insufficiency: Code(s): K86.81 - Exocrine pancreatic insufficiency Status: Chronic Assessment and Plan: Stable Continue home Creon with meals (9) Falls: Qualifiers: Encounter type: initial encounter Qualified Code(s): W19.XXXA - Unspecified fall, initial encounter Code(s): W19.XXXA - Unspecified fall, initial encounter Status: Acute Assessment and Plan: Patient known to have frequent falls, recent admission for falls a couple weeks ago. Continue PT/OT Discharge planning was recently at [place] with home health but appears she moved to SNF after discharge Plan to return to SNF at discharge Additional Plan Anemia - Iron studies noted and related to anemia of chronic disease. B12 and folate normal. Monitor HH and transfuse as needed. Subjective Date/time seen: 04/25/21 08:39 patient in bed resting this assessment. The only complaint that she has is that she has pain in her right shoulder. She denies any diarrhea today. Patient denies cp, abdominal pain, sob, palpitation, diarrhea, c
[2021-04-25] MEDS: MORPHINE SULFATE (*CRX) 4 MG/ML INJ 2 MG IV PUSH (12:16)
--- NOTE | 2021-04-25 17:46 | PCRCNOTE ---
Window of time for administration has passed. See next scheduled administration.
[2021-04-25] MEDS: MORPHINE SULFATE (*CRX) 2 MG/ML INJ IV PUSH (20:56)
[2021-04-25] MEDS: ACETAMINOPHEN 325 MG TABLET 650 MG PO (20:57)
[2021-04-25] MEDS: AZELASTINE HCL NASAL 0.1% 137 MCG/SPR 30 ML BTL 1 SPRAY NASAL (21:02)
[2021-04-25] MEDS: traZODone HCL 50 MG TABLET 300 MG PO (21:02)
[2021-04-25] MEDS: rOPINIRole HCL 1 MG TABLET 2 MG PO (21:03)
[2021-04-26] VITALS (9 sets, daily range): BP systolic 106–123; BP diastolic 53–60; PULSE 69–86; RESP 18–20; TEMP 35.8–36.2; O2SAT 92–93
[2021-04-26] MEDS: ALBUTEROL SULFATE NEB 2.5 MG/0.5 ML INH INHALATION ×3 (04:00→12:48)
[2021-04-26] MEDS: VANCOMYCIN ORAL 125 MG/2.5 ML SYRUP PO ×2 (06:06→12:07)
[2021-04-26] MEDS: metroNIDAZOLE 500 MG/ISO 100ML 500 MG/100 ML BAG 100 MG IVPB ×2 (06:07→13:43)
[2021-04-26 06:38] LABS: Hematocrit 31.2 % (37.0-47.0); Hemoglobin 9.2 g/dL (12.0-15.0); Mean Corpuscular HGB Conc 29.5 g/dl (32-36); Mean Corpuscular Hemoglobin 29.2 pg (26-34); Platelet Count Result 361 k/mm3 (150-375); Red Blood Count 3.15 M/mm3 (4.2-5.4); Red Cell Distribution Width 15.6 % (11.5-14.5); White Blood Count 16.2 K/mm3 (4.5-10.0)
[2021-04-26 06:52] LABS: Alanine Aminotransferase 12 U/L (4-35); Albumin Level 2.4 g/dL (3.5-5.1); Alkaline Phosphatase 56 U/L (38-126); Anion Gap 6 mmol/L (8-16); Aspartate Amino Transferase 32 U/L (14-36); Bilirubin,Total 0.2 mg/dL (0.2-1.3); Blood Urea Nitrogen 3 mg/dL (7-17); Calcium 8.1 mg/dL (8.4-10.2); Carbon Dioxide 35 mmol/L (22-30); Chloride 99 mmol/L (98-107); Estimated CRCL calculation 80 ml/min; Estimated Glomerular Filt Rate > 60; Glucose 130 mg/dL (65-110); Magnesium 1.4 mg/dL (1.6-2.3); Potassium 3.8 mmol/L (3.4-5.0); Sodium 140 mmol/L (137-145)
[2021-04-26] MEDS: BUDESONIDE RESPULE NEB 0.5 MG/2 ML AMP INHALATION (08:24)
[2021-04-26] MEDS: MAGNESIUM SULF 2 GM/WATER 50ML 2 GM/50 ML BAG IVPB (09:12)
[2021-04-26] MEDS: HYDROcodone/acetaminophen (*CRX) 10-325 MG TABLET 1 TAB PO (09:18)
[2021-04-26] MEDS: PREGABALIN (*CRX) 75 MG CAPSULE 150 MG PO (09:18)
[2021-04-26] MEDS: LIPASE/AMYLASE/PROTEASE 12,000 UNITS CAP 2 CAP PO ×2 (09:19→12:06)
[2021-04-26] MEDS: ASPIRIN 81 MG CHEWABLE TABLET PO (09:19)
[2021-04-26] MEDS: DULoxetine HCL 60 MG CAPSULE.DR PO (09:19)
[2021-04-26] MEDS: ENOXAPARIN 40 MG/0.4 ML SYRINGE SUB-Q (09:20)
[2021-04-26] MEDS: MAGNESIUM OXIDE 400 MG TABLET PO (09:20)
[2021-04-26] MEDS: FOLIC ACID 1 MG TABLET PO (09:20)
[2021-04-26] MEDS: FIDAXOMICIN 200 MG TABLET PO (09:20)
[2021-04-26] MEDS: PANTOPRAZOLE 40 MG TABLET PO (09:21)
[2021-04-26] MEDS: FERROUS SULFATE 324 MG TABLET PO (09:21)
[2021-04-26] MEDS: ATORVASTATIN 40 MG TABLET 80 MG PO (09:21)
[2021-04-26] MEDS: LORATADINE 10 MG TABLET PO (09:23)
[2021-04-26] MEDS: LIDOCAINE 5% PATCH 1 PATCH TRANSDERM (09:23)
[2021-04-26] MEDS: AZELASTINE HCL NASAL 0.1% 137 MCG/SPR 30 ML BTL 1 SPRAY NASAL (09:24)
[2021-04-26] MEDS: SACCHAROMYCES BOULARDII 250 MG CAPSULE PO (09:24)
[2021-04-26] MEDS: IBUPROFEN 400 MG TABLET PO (10:13)
[2021-04-26] MEDS: FUROSEMIDE INJ 40 MG/4 ML VIAL 20 MG IV PUSH (10:13)
--- NOTE | 2021-04-26 11:08 | PCNWS ---
Weekly nutritional screen. Patient is tolerating current diet-Low fiber with Banatrol Plus TID with adequate [id number]% of meals. CDiff positive-Stools have slowed down. No further nutritional needs at this time.
--- NOTE | 2021-04-26 11:43 | PC.NURSE ---
to ultrasound per stretcher
--- NOTE | 2021-04-26 13:05 | PC.NURSE ---
patient returning to room from ultrasound
--- NOTE | 2021-04-26 13:26 | P.DS_ITS ---
DS: Admitting Diagnosis Admitting Diagnosis Altered mental status DS: Discharge Diagnosis Discharge Diagnosis (1) Colitis: Code(s): K52.9 - Noninfective gastroenteritis and colitis, unspecified Status: Acute Assessment and Plan: * on admission with sepsis with marked leukocytosis and evidence of pancolitis noted on CT * Recently discharged from our facility and completed 7-day course of antibiotics 04/09/21 for treatment of E coli UTI * C diff toxin detected. Treated with oral vancomycin and IV Flagyl; Fidaxomicin added for severity * Stool guaiac positive but not unexpected with the colitis * WBC trending down to 31K->28K->23K->16K * KUB negative for obstruction or ileus * She was on a low residue diet and Banatrol * GI following and appreciated their recommendations (2) Sepsis: Qualifiers: Sepsis acute organ dysfunction status: unspecified Sepsis type: sepsis due to unspecified organism Qualified Code(s): A41.9 - Sepsis, unspecified organism Code(s): A41.9 - Sepsis, unspecified organism Status: Acute Assessment and Plan: * Present on admission with fever, tachycardia and marked leukocytosis. Lactic acid 1.1 on arrival. * Suspected source is C diff colitis. Abx as above. * Chronic pulmonary findings on imaging appear stable - COVID PCR was negative. [place] to be atelectasis * Symptoms of sepsis resolved (3) Altered mental status: Qualifiers: Altered mental status type: disorientation Qualified Code(s): R41.0 - Disorientation, unspecified Code(s): R41.82 - Altered mental status, unspecified Status: Acute Assessment and Plan: * Suspect metabolic encephalopathy secondary to sepsis and colitis. * May have underlying dementia contributing to the confusion * Calcium 7.6 --> 8.1 * Mental status improved (4) ILD (interstitial lung disease): Code(s): J84.9 - Interstitial pulmonary disease, unspecified Status: Chronic Assessment and Plan: * Stable (5) Chronic hypoxemic respiratory failure: Code(s): J96.11 - Chronic respiratory failure with hypoxia Status: Chronic Assessment and Plan: * Stable * Remains on 1-2L home O2 (6) COPD (chronic obstructive pulmonary disease): Qualifiers: COPD type: unspecified COPD Qualified Code(s): J44.9 - Chronic obstructive pulmonary disease, unspecified Code(s): J44.9 - Chronic obstructive pulmonary disease, unspecified Status: Chronic Assessment and Plan: * Stable. We continue her home Pulmicort and Albuterol (7) RLS (restless legs syndrome): Code(s): G25.81 - Restless legs syndrome Status: Chronic Assessment and Plan: * Stable * We continued her home Requip (8) Exocrine pancreatic insufficiency: Code(s): K86.81 - Exocrine pancreatic insufficiency Status: Chronic Assessment and Plan: * Stable * We continued her home Creon with meals (9) Falls: Qualifiers: Encounter type: initial encounter Qualified Code(s): W19.XXXA - Unspecified fall, initial encounter Code(s): W19.XXXA - Unspecified fall, initial encounter Status: Acute Assessment and Plan: * Patient known to have frequent falls, recent admission for falls a couple weeks ago.
--- NOTE | 2021-04-26 13:26 | PM.DS ---
DS: Admitting Diagnosis Admitting Diagnosis Altered mental status DS: Discharge Diagnosis Discharge Diagnosis (1) Colitis: Code(s): K52.9 - Noninfective gastroenteritis and colitis, unspecified Status: Acute Assessment and Plan: on admission with sepsis with marked leukocytosis and evidence of pancolitis noted on CT Recently discharged from our facility and completed 7-day course of antibiotics 04/09/21 for treatment of E coli UTI C diff toxin detected. Treated with oral vancomycin and IV Flagyl; Fidaxomicin added for severity Stool guaiac positive but not unexpected with the colitis WBC trending down to 31K->28K->23K->16K KUB negative for obstruction or ileus She was on a low residue diet and Banatrol GI following and appreciated their recommendations (2) Sepsis: Qualifiers: Sepsis acute organ dysfunction status: unspecified Sepsis type: sepsis due to unspecified organism Qualified Code(s): A41.9 - Sepsis, unspecified organism Code(s): A41.9 - Sepsis, unspecified organism Status: Acute Assessment and Plan: Present on admission with fever, tachycardia and marked leukocytosis. Lactic acid 1.1 on arrival. Suspected source is C diff colitis. Abx as above. Chronic pulmonary findings on imaging appear stable - COVID PCR was negative. [place] to be atelectasis Symptoms of sepsis resolved (3) Altered mental status: Qualifiers: Altered mental status type: disorientation Qualified Code(s): R41.0 - Disorientation, unspecified Code(s): R41.82 - Altered mental status, unspecified Status: Acute Assessment and Plan: Suspect metabolic encephalopathy secondary to sepsis and colitis. May have underlying dementia contributing to the confusion Calcium 7.6 --> 8.1 Mental status improved (4) ILD (interstitial lung disease): Code(s): J84.9 - Interstitial pulmonary disease, unspecified Status: Chronic Assessment and Plan: Stable (5) Chronic hypoxemic respiratory failure: Code(s): J96.11 - Chronic respiratory failure with hypoxia Status: Chronic Assessment and Plan: Stable Remains on 1-2L home O2 (6) COPD (chronic obstructive pulmonary disease): Qualifiers: COPD type: unspecified COPD Qualified Code(s): J44.9 - Chronic obstructive pulmonary disease, unspecified Code(s): J44.9 - Chronic obstructive pulmonary disease, unspecified Status: Chronic Assessment and Plan: Stable. We continue her home Pulmicort and Albuterol (7) RLS (restless legs syndrome): Code(s): G25.81 - Restless legs syndrome Status: Chronic Assessment and Plan: Stable We continued her home Requip (8) Exocrine pancreatic insufficiency: Code(s): K86.81 - Exocrine pancreatic insufficiency Status: Chronic Assessment and Plan: Stable We continued her home Creon with meals (9) Falls: Qualifiers: Encounter type: initial encounter Qualified Code(s): W19.XXXA - Unspecified fall, initial encounter Code(s): W19.XXXA - Unspecified fall, initial encounter Status: Acute Assessment and Plan: Patient known to have frequent falls, recent admission for falls a couple weeks ago. We continued PT/OT Discharge planning was recently at [place] with home health but appears she moved to SNF after discharge Plan to return to SNF at discharge DS: Summary Hospital Course Reason for hospitalization: 76yo female with ILD, COPD on home O2, and CHF here for altered mental status found to have pancolitis. Recently completed a 7-day course of antibiotics for treatment of E coli UTI during recent admission. Please see H&P for details Hospital Course: [facility]
--- NOTE | 2021-04-30 19:15 | PC.NURSE ---
All of patient's IV acetaminophen was administered.
== END 2021-04-26 16:03 | DRG 371 ==
LOC: ANHED 20:15 → ANH3MEDSUR 21:12
PROVIDERS: General Practice; Nurse Practitioner; Physician Assistant; Admitting Provider Internal Medicine; Emergency Provider Nurse Practitioner; PCP Internal Medicine; Visit Provider Internal Medicine
DX: A04.72 Enterocolitis due to Clostridium difficile, not specified as recurrent (principal); G93.41 Metabolic encephalopathy; J96.11 Chronic respiratory failure with hypoxia; J98.11 Atelectasis; Z20.822 Contact with and (suspected) exposure to COVID-19; G25.81 Restless legs syndrome; K86.81 Exocrine pancreatic insufficiency; F41.9 Anxiety disorder, unspecified; J43.9 Emphysema, unspecified; F03.90 Unspecified dementia, unspecified severity, without behavioral disturbance, psychotic disturbance, mood disturbance, and anxiety; K21.9 Gastro-esophageal reflux disease without esophagitis; I10 Essential (primary) hypertension; E78.5 Hyperlipidemia, unspecified; R73.03 Prediabetes; M81.0 Age-related osteoporosis without current pathological fracture; G62.9 Polyneuropathy, unspecified; M16.0 Bilateral primary osteoarthritis of hip; M19.012 Primary osteoarthritis, left shoulder; M19.011 Primary osteoarthritis, right shoulder; N32.81 Overactive bladder; D63.8 Anemia in other chronic diseases classified elsewhere; R29.6 Repeated falls; Z99.81 Dependence on supplemental oxygen; Z86.73 Personal history of transient ischemic attack (TIA), and cerebral infarction without residual deficits; Z90.49 Acquired absence of other specified parts of digestive tract; Z90.710 Acquired absence of both cervix and uterus; Z98.1 Arthrodesis status; Z87.891 Personal history of nicotine dependence
CPT/HCPCS: 36415; 51701; 71045; 71275; 73100; 74019; 74176; 80048; 80053; 80069; 81001; 82274; 82607; 82728; 82746; 83540; 83550; 83605; 83735; 83880; 84443; 84484; 85025; 85027; 85055; 85610; 85730; 86140; 87015; 87040; 87045; 87046; 87269; 87272; 87324; 87427; 93005; 93970; 94640; 96365; 96368; 96375; 97110; 97161; 97166; 97530; 97535; 99285; A9270; C9803; G0378; J0456; J0610; J0696; J1650; J1940; J2270; J3475; J3480; J7030; Q9967; U0003; U0005

== ENCOUNTER 2021-05-06 13:29 | Emergency (ER) | payer MEDICARE, MEDICAID, SELFPAY ==
[2021-05-06 13:39] VITALS: BP 101/64; PULSE 94; RESP 20; TEMP 36.7; O2SAT 95
--- NOTE | 2021-05-06 14:02 | ED.GENADULT ---
HPI - General Adult General Chief complaint: Fall <ANGELES Negrete Last Filed: 05/06/21 16:22> Stated complaint: FALL/LIP LAC <Jem Cheek PA-C - Last Filed: 05/06/21 16:22> Time Seen by Provider: 05/06/21 13:57 <ANGELES Negrete Last Filed: 05/06/21 16:22> History of Present Illness HPI narrative: Patient is a 76-year-old female with past medical history significant for hyperlipidemia who comes to the emergency room today complaining of a laceration to her upper lip after mechanical fall. Patient reports that she was leaning over out of her wheelchair when she fell down onto the floor and hit her face against the floor resulting in a lip laceration. She denies any other injuries from this event. Did not lose consciousness, no headache, no nausea or vomiting, no neck pain. She is not on blood thinners. Unknown when last tetanus was. <ANGELES Negrete Last Filed: 05/06/21 16:22> Related Data Home medications: Home Medications Medication Instructions Recorded Confirmed dicyclomine 10 mg capsule 10 mg PO QID PRN 04/24/20 04/18/21 Atrovent HFA 2 puff INHALATION QID 04/03/21 04/17/21 azelastine 137 mcg INTRANASAL Q12H 04/03/21 04/17/21 omeprazole 40 mg PO DAILY 04/03/21 04/18/21 bisacodyl 10 mg RECTAL PRN PRN 04/17/21 04/18/21 pvmcea-lrtooxcx-xnzmktl 1 cap PO TID 04/17/21 04/18/21 magnesium hydroxide [Milk of 30 ml PO DAILY PRN 04/17/21 04/18/21 Magnesia] tramadol 50 mg PO Q12-24H PRN 04/18/21 04/18/21 cirrar-nyjryrjc-qyqpxyr [Creon] cap PO 05/06/21 <ANGELES Negrete Last Filed: 05/06/21 16:22> Allergies/adverse reactions: Allergies Allergy/AdvReac Type Severity Reaction Status Date / Time No Known Allergies Allergy Unknown Verified 05/06/21 13:44 <eJm JiménezANGELES bond - Last Filed: 05/06/21 16:22> Review of Systems Constitutional: Constitutional: Reports as per HPI, Denies fever(s), Denies night sweats and Denies weakness <Jem JiménezANGELES bond Last Filed: 05/06/21 16:22> Cardiovascular: Cardiovascular: Denies chest pain, Denies edema, Denies leg edema, Denies dyspnea and Denies orthopnea <Jem AguilarANGELES De La Vega Last Filed: 05/06/21 16:22> Respiratory: Respiratory: Denies cough and Denies dyspnea <Jem AguilarJessie Cheek PA-C - Last Filed: 05/06/21 16:22> Gastrointestinal: Gastrointestinal: Denies abdominal pain, Denies constipation, Denies diarrhea, Denies nausea and Denies vomiting <Jem LaurenJessie Cheek PA-C Monique Last Filed: 05/06/21 16:22> Musculoskeletal: Musculoskeletal: Denies abnormal gait, Denies back pain, Denies numbness and Denies tingling <Jem AguilarSEBASTIÁN De La VegaAlicja Amaya Last Filed: 05/06/21 16:22> Integumentary/Breasts: Comments: See HPI <Jem AguilarJessie Cheek PA-C Monique Last Filed: 05/06/21 16:22> Neurologic: Denies Abnormal speech present, Denies abnormal gait, Denies numbness, Denies tingling and Denies weakness <Jem AguilarJessie Cheek PA-C Monique Last Filed: 05/06/21 16:22> Psychiatric: Psychiatric: Denies homicidal ideation and Denies suicidal ideation <Jem AguilarSEBASTIÁN De La VegaAlicja Amaya Last Filed: 05/06/21 16:22> [facility] Past Medical History Medical History: Medical History Anemia Anxiety Arthritis Back injury Back pain Bilateral shoulder pain Bronchitis CHF (congestive heart failure) COPD (chronic obstructive pulmonary disease) On home O2 3L Degenerative joint disease of both hips Degenerative joint disease of right hip Dementia Depression 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
[2021-05-06] MEDS: TETANUS,DIPHTHERIA,AC PERTUSSIS ADULT (0.5 ML) BOOSTRIX IM (14:44)
[2021-05-06 15:11] VITALS: BP 111/63; PULSE 84; RESP 16; O2SAT 100
[2021-05-06 16:48] VITALS: BP 115/77; PULSE 88; RESP 16; O2SAT 100
--- NOTE | 2021-05-06 16:53 | PC.NURSE ---
Per Nivia at [facility], they will be able to fill abx rx at facility. Pt finished course of vancomycin on previously. EDP made aware and to print prescription to send to [facility]. Family at bedside made aware.
--- NOTE | 2021-05-06 17:56 | PC.NURSE ---
[facility] accepted transfer to [facility] ETA 2015 Trip # [id number]
[2021-05-06 20:47] VITALS: BP 103/57; PULSE 66; RESP 18; O2SAT 93
--- NOTE | 2021-05-06 21:10 | PC.NURSE ---
called [employer] for a new eta. company stated is will be around [id number]
[2021-05-06 23:04] VITALS: BP 148/75; PULSE 90; RESP 18; O2SAT 92
--- NOTE | 2021-05-07 00:06 | PC.NURSE ---
made contact with [employer] to get a new eta. new time 020
[2021-05-07 00:38] VITALS: BP 139/64; PULSE 72; RESP 14; O2SAT 95
[2021-05-07 01:22] VITALS: BP 137/60; PULSE 87; RESP 16; O2SAT 91
--- NOTE | 2021-05-07 02:08 | PC.NURSE ---
made contact with [employer] for a new [employer] company stated 45minutes
--- NOTE | 2021-05-07 02:36 | PC.NURSE ---
[facility] has arrived and is aware that pt is returning to [facility]/
== END 2021-05-07 02:50 ==
PROVIDERS: Emergency Provider General Practice; PCP Internal Medicine
DX: S01.511A Laceration without foreign body of lip, initial encounter (principal); F03.90 Unspecified dementia, unspecified severity, without behavioral disturbance, psychotic disturbance, mood disturbance, and anxiety; E78.5 Hyperlipidemia, unspecified; Z23 Encounter for immunization; I50.9 Heart failure, unspecified; I11.0 Hypertensive heart disease with heart failure; J43.9 Emphysema, unspecified; N32.81 Overactive bladder; R73.03 Prediabetes; I73.9 Peripheral vascular disease, unspecified; K21.9 Gastro-esophageal reflux disease without esophagitis; M19.012 Primary osteoarthritis, left shoulder; M19.011 Primary osteoarthritis, right shoulder; M16.0 Bilateral primary osteoarthritis of hip; M81.0 Age-related osteoporosis without current pathological fracture; Z87.01 Personal history of pneumonia (recurrent); Z87.440 Personal history of urinary (tract) infections; Z98.1 Arthrodesis status; F17.210 Nicotine dependence, cigarettes, uncomplicated; W05.0XXA Fall from non-moving wheelchair, initial encounter
CPT/HCPCS: 12011; 90471; 90715; 99283

== ENCOUNTER 2021-05-13 15:15 | Inpatient (IN) | payer MEDICARE, SELFPAY ==
[2021-05-13] VITALS (25 sets, daily range): BP systolic 71–148; BP diastolic 40–104; PULSE 105–127; RESP 13–27; TEMP 37.3–39.2; O2SAT 90–100
--- NOTE | ~2021-05-13 | XR_ITS ---
EXAMINATION: XR chest PICC line DATE: 05/14/2021 09:53 INDICATION: Central line placement. TECHNIQUE: A single frontal view of the chest was obtained. COMPARISON: Chest single view 05/13/2021, chest CT 04/17/2021 FINDINGS: There is chronic marked elevation of right hemidiaphragm. There is widespread peripheral se ptal thickening in the lungs, consistent with chronic interstitial lung disease. No pleural effusion or pneumothorax. The heart size is normal. There are changes of anterior fusion procedure in cervical spine. A left upper extremity peripherally inserted central venous catheter (PICC) is seen with tip at the superior cavoatrial junction. IMPRESSION: 1. PICC tip at the superior cavoatrial junction. 2. Stable chronic interstitial lung disease. 3. Chronic marked elevation of right hemidiaphragm. Reviewed, dictated and finalized at location A.
--- NOTE | ~2021-05-13 | XR_ITS ---
EXAMINATION: XR abdomen NG/feed tube insert DATE: 05/14/2021 16:45 INDICATION: Nasogastric tube placement. TECHNIQUE: An upright view of the abdomen was obtained. COMPARISON: CT abdomen and pelvis 04/17/2021 FINDINGS: The lower abdomen is excluded. There are no dilated loops of bowel. The nasogastric tube ti p is in the stomach. There are changes of anterior fusion procedure in lumbar spine. There is chronic marked elevation of right hemidiaphragm. IMPRESSION: 1. Nasogastric tube tip in the stomach. Reviewed, dictated and finalized at location A.
--- NOTE | ~2021-05-13 | XR_ITS ---
EXAMINATION: XR chest 1V portable INDICATION: Fever TECHNIQUE: Portable AP chest at 1627 hours COMPARISON: 04/17/2021 FINDINGS: There are chronic subpleural opacities of the lungs. There appear to be superimposed opacit ies of the right upper lung zone. Cardiomegaly is noted. There is elevation of the right hemidiaphrag m. No pleural effusion or pneumothorax is identified. IMPRESSION: 1. Chronic interstitial lung disease with superimposed opacities of the right upper lung zone, consis tent with atelectasis versus pneumonia. Reviewed, dictated and finalized at location B. IMPRESSION: 1. Chronic interstitial lung disease with superimposed opacities of the right u pper lung zone, consistent with atelectasis versus pneumonia.
--- NOTE | 2021-05-13 15:23 | ECG_ITS ---
Measurements Intervals [place] Rate: 120 P: 34 PA: 147 QRS: 39 QRSD: 81 T: 53 QT: 302 QTc: 427 Interpretive Statements SINUS TACHYCARDIA ATRIAL PREMATURE COMPLEX INCOMPLETE RIGHT BUNDLE BRANCH BLOCK LOW QRS VOLTAGE IN PRECORDIAL LEADS BASELINE ARTIFACT- V1-V3, V6 ABNORMAL ECG Electronically Signed On 05-14-2021 8:09:26 CDT by Kole Carey D.O.
--- NOTE | 2021-05-13 15:25 | ED.FEVER ---
HPI - Fever General Chief Complaint: Shortness of Breath/Dyspnea Stated Complaint: low o2 sats, altered mental status History of Present Illness HPI Narrative: 76 yo female w/ h/o COPD presents to the ED for AMS and low O2 saturation. Noted to be confused since this morning. Oxygen saturation low on baslein 3 liters. Daughter reports that she was recently hospitalized for C.diff. Finished treatment 1 week ago and has been declining since then. Now having diarrhea again. Temp 39.2 during triage. Related Data Home Medications Medication Instructions Recorded Confirmed dicyclomine 10 mg capsule 10 mg PO QID PRN 04/24/20 04/18/21 Atrovent HFA 2 puff INHALATION QID 04/03/21 04/17/21 azelastine 137 mcg INTRANASAL Q12H 04/03/21 04/17/21 omeprazole 40 mg PO DAILY 04/03/21 04/18/21 bisacodyl 10 mg RECTAL PRN PRN 04/17/21 04/18/21 [id number]-[id number] 1 cap PO TID 04/17/21 04/18/21 magnesium hydroxide [Milk of 30 ml PO DAILY PRN 04/17/21 04/18/21 Magnesia] tramadol 50 mg PO Q12-24H PRN 04/18/21 04/18/21 [id number]-[id number] [Creon] cap PO 05/06/21 Allergies Allergy/AdvReac Type Severity Reaction Status Date / Time No Known Allergies Allergy Unknown Verified 05/13/21 15:54 Review of Systems Review of Systems: ROS unobtainable: Yes unobtainable due to mental status Constitutional: Constitutional: Denies weakness Cardiovascular: Cardiovascular: Denies dyspnea Musculoskeletal: Musculoskeletal: Denies numbness [facility] Past Medical History Medical History Anemia Anxiety Arthritis Back injury Back pain Bilateral shoulder pain Bronchitis CHF (congestive heart failure) COPD (chronic obstructive pulmonary disease) On home O2 3L Degenerative joint disease of both hips Degenerative joint disease of right hip Dementia Depression 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fection) Wears dentures Surgical History Surgical History H/O neck surgery 2002 History of back surgery 1999 History of bladder suspension procedure History of cardiac cath History of cholecystectomy History of hysterectomy History of lumbar fusion x2 History of tonsillectomy History of tubal ligation History of vascular surgery lt leg arteroplasty Family History Family History Father Patient's father is in good health Family history of Parkinson's disease Sibling Patient's brother is in good health Mother Family history of chronic obstructive pulmonary disease Family history of pancreatic cancer Social History Social History Smoking packs per day: 1 Smoking cigarettes per day: 20.0 Years smoked: 30 Smoking pack-years: 30.00 Smoking status: Unknown if ever smoked Alcohol intake: unknown Substance use: unknown Substance use type: does not use Gender identity (if verbalized by the patient): Female Spiritual care concerns: No Exam Const: General: ill appearing Nutritional Appearance: obese Orientation/consciousness: confusion HENMT: Head: normal to inspection Resp: Effort & Inspection: tachypneic Auscultation: rhonchi Cardio: Rate: tachycardic Rhythm: regular rhythm GI: GI Palp: Yes Soft to palpation and No Tenderness to palpation present (GI) Skin: General skin exam: normal color Other: warm Neuro: General: moves all extremities and no focal motor deficits Other: oriented x1 Extrem:
[2021-05-13 15:46] LABS: Base Excess ABG 12.8 mEq/l (+/-2.0); Fractional Inspired Oxygen 36 %; HCO3 ABG 39.9 mEq/l (22.0-26.0); Oxygen Content ABG 12.1 %vol (16.0-22.0); Oxygen Saturation ABG 89.3 % (95.0-100.0); Oxyhemoglobin 86.6 % THb (90.0-100.0); PO2 ABG 59.2 mmHg (80.0-100.0); PO2 FiO2 Ratio Arterial Blood 1.64 %; Total Hemoglobin 9.9 g/dL (12.0-18.0); pH ABG 7.388 (7.350-7.450)
[2021-05-13 15:48] LABS: PCO2 ABG 67.7 mmHg (35.0-45.0); Site Drawn LEFT BRACHIAL
[2021-05-13 15:49] LABS: Device NASAL CANNULA
[2021-05-13] MEDS: SODIUM CHLORIDE 0.9% IV 1,000 ML 999 ML IV CONT ×2 (16:00→20:30)
--- NOTE | 2021-05-13 16:01 | PCRCNOTE ---
PT. IS BEING CLEANED UP; R.N. WILL CALL WHEN WE CAN PUT THE BIPAP ON .
[2021-05-13 16:03] LABS: Basophils Absolute Auto 0.1 K/mm3 (0.0-0.1); Basophils Percent Auto 0.2 % (0.2-1.2); Eosinophils Absolute Auto 0.2 K/mm3 (0-0.3); Eosinophils Percent Auto 1.1 % (0-4.4); Hematocrit 31.7 % (37.0-47.0); Hemoglobin 9.2 g/dL (12.0-15.0); Immature Granulocyte Absolute 0.22 K/mm3 (0.00-0.031); Immature Granulocyte Percent A 1.1 % (0-0.5); Lymphocytes Absolute Auto 1.21 K/mm3 (0.9-3.2); Lymphocytes Percent Auto 5.9 % (18.3-44.2); Mean Corpuscular Hemoglobin 29.1 pg (26-34); Mean Corpuscular Volume 100.3 fl (80-100); Monocytes Absolute Auto 1.2 K/mm3 (0.1-0.6); Monocytes Percent Auto 5.6 % (2.6-8.5); Neutrophils Absolute Auto 17.6 K/mm3 (1.3-6.7); Neutrophils Percent Auto 86.1 % (45.5-73.1); Platelet Count Result 388 k/mm3 (150-375); Red Blood Count 3.16 M/mm3 (4.2-5.4); Red Cell Distribution Width 15.5 % (11.5-14.5); White Blood Count 20.5 K/mm3 (4.5-10.0)
[2021-05-13 16:07] LABS: Add Urine Microscopic? YES; Appearance Urine Clear (Clear); Bilirubin Urine Negative (Negative); Color Urine Yellow (Yellow); Glucose Urine UA Negative (Negative); Ketones Urine Negative (Negative); Leukocyte Esterase Ur 1+ LEU/UL (Negative); Mucus Urine Rare /lpf; Nitrate Urine Negative (Negative); Protein Urine Negative (Negative); RBC Urine 0-2 /hpf (0-2); Specific Grav Ur 1.013 (1.001-1.035); Squamous Epithelial Cell Urine Few /hpf (Few); Urobilinogen Urine Negative mg/dL (<2.0)
[2021-05-13 16:15] LABS: Lactic Acid Reflex 1.6 mmol/L (0.7-2.1)
[2021-05-13 16:18] LABS: Alanine Aminotransferase 15 U/L (4-35); Albumin Level 3.2 g/dL (3.5-5.1); Alkaline Phosphatase 68 U/L (38-126); Aspartate Amino Transferase 32 U/L (14-36); Bilirubin,Total 0.5 mg/dL (0.2-1.3); Blood Urea Nitrogen 11 mg/dL (7-17); Calcium 8.7 mg/dL (8.4-10.2); Carbon Dioxide > 40 mmol/L (22-30); Chloride 94 mmol/L (98-107); Estimated Glomerular Filt Rate > 60; Glucose 155 mg/dL (65-110); Sodium 137 mmol/L (137-145)
[2021-05-13 16:20] LABS: Blood Urine Negative (Negative)
[2021-05-13 16:21] LABS: INR 1.3; Prothrombin Time 15.5 Seconds (11.1-14.7)
[2021-05-13 16:22] LABS: Partial Thromboplastin Time 39.4 SECONDS (22.3-36.8)
[2021-05-13] MEDS: VANCOMYCIN ORAL 125 MG/2.5 ML SYRUP PO (16:51)
[2021-05-13] MEDS: SODIUM CHLORIDE 0.9% IV 1,000 ML 999 ML (17:34)
--- NOTE | 2021-05-13 18:30 | PC.NURSE ---
PT NOTED TO HAVE LOW BLOOD PRESSURE. DR RIVERA MADE AWARE. WILL ATTEMPT MANUAL BP
--- NOTE | 2021-05-13 18:50 | PC.NURSE ---
SPOKE WITH AME MONTENEGRO FOR TELEPHONE CONSENT FOR CENTRAL LINE PLACEMENT. LUCITA Lee RN ALSO ON PHONE FOR 2ND VERIFICATION.
[2021-05-13] MEDS: methylPREDNISolone SOD SUCC 40 MG VIAL IV PUSH (20:02)
[2021-05-13] MEDS: NOREPINEPHRINE 8 MG/D5W 250 ML 8 MG/250 ML BAG 10 MG IV CONT (20:30)
--- NOTE | 2021-05-13 21:30 | PC.NURSE ---
Right tibial IO placed by Dr. Carrillo. administered lidocaine. VORB 15 ml/hr norepinephrine through IO at this time.
--- NOTE | 2021-05-13 22:09 | PC.NURSE ---
Addendum entered by Rachel Gibbons RN 05/14/21 01:00: Norepinephrine hung at 10 ml/hr peripheral right arm IV per VORKaity Carrillo at 2029. Normal Saline bolus hung to gravity per VORB Dr. Carrillo at 2029. IO access gained at 2114, VORB 15 ml/hr norepinephrine through IO. Original Note: Norepinephrine hung at 10 ml/hr per LUI Carrillo 2029. Normal Saline bolus hung to gravity per VORB Dr. Carrillo 2029. IO access gained at 2114, VORB 15 ml/hr norepinephrine.
--- NOTE | 2021-05-13 22:58 | PC.NURSE ---
Pt continues pulling on Bipap mask, resulting in O2 sats to drop. Pt very confused at this time. Several attempts to redirect and distract. Pt unable to be redirected. VORB Dr. Caal for bilateral soft wrist restraints at this time.
--- NOTE | 2021-05-13 23:18 | PM.IMHP ---
H&P: HPI History of Present Illness Date/Time: 05/13/21 23:18 Chief Complaint: Shortness of breath, low oxygen saturation Narrative: 76-year-old female with past medical history of recent C diff colitis, chronic hypoxemic respiratory failure, in interstitial lung disease, COPD, and exocrine pancreatic insufficiency who presented to the ER via EMS from senior care due to should increased shortness of breath and low oxygen saturations. On arrival to the ER patient's temperature was a 102.5?. Her oxygen requirement had increased from her usual 3 L nasal cannula up to 4 L nasal cannula. On arrival to the ER the patient was noted to have multiple seedy diarrheal stools. On exam she had generalized abdominal tenderness. The patient was unable to provide any significant history due to being encephalopathic. During prior hospitalizations a shot patient had encephalopathy with some possible underlying dementia. The patient was found to be septic with elevated heart rate, tachypnea and increased leukocytosis from baseline. Patient had C diff colitis 04/17/2021 and did start back to senior care on 04/26/2021 during her last hospitalization she was treated with Flagyl, p.o. vanc and Dificid. Her chest x-ray demonstrated chronic interstitial lung disease with superimposed opacities the right upper lung consistent with atelectasis versus pneumonia. On initial arrival to the ER the patient was normotensive. However after she was accepted for admission she became hypotensive in despite 2 L of normal saline bolus remained hypotensive. The ER physician attempted bilateral femoral central lines without success. I went down to ER to evaluate the patient and attempted femoral line placement in could not do so due to multiple hematomas. Her I did attempt to visualize patient's IJ but was unable to do so due to patient's volume status. The patient was thrashing about in the bed and uncooperative side did not feel safe attempting a subclavian line subsequently a right tibial IO was placed. Patient was placed on Levophed at 15 mcg per minute with improvement in her systolic blood pressures up to 104. The patient was on BiPAP at the time of my evaluation. Her ABG had demonstrated some mild acute on chronic hypercapnic respiratory failure with compensatory metabolic acidosis. The patient's pH was stable. [facility] Past Medical History Medical History (Updated 05/13/21 @ 23:34 by Ayesha Carrillo DO) Anemia Anxiety Arthritis Back pain Bilateral shoulder pain CHF (congestive heart failure) Diastolic COPD (chronic obstructive pulmonary disease) On home O2 3L Degenerative joint disease of both hips Dementia Depression 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 Emphysema of lung Exocrine pancreatic insufficiency GERD (gastroesophageal reflux disease) GI bleed H/O ulcer disease Herniated disc HLD (hyperlipidemia) HTN (hypertension) Migraine OAB (overactive bladder) Osteoporosis Pancreatitis Pneumonia Prediabetes PVD (peripheral vascular disease) TIA (transient ischemic attack) UTI (urinary tract infection) Wears dentures Surgical History Surgical History H/O neck surgery 2002 History of back surgery 1999 History of bladder suspension procedure History of cardiac cath History of cholecystectomy History of hysterectomy History of lumbar fusion x2 History of tonsillectomy History of tubal ligation History of vascular surgery lt leg arteroplasty Family History Family History Father Patient's father is in good health Family history of Parkinson's disease Sibling Patient's brother is in good health Mother Family history of chronic obstructive pulmonary disease Family history of pancreatic cancer Social History Social History (Updated 05/13/21 @ 23:36 by Ayesha Carrillo DO) Smoking packs per day: 1 [place]
[2021-05-14] VITALS (33 sets, daily range): BP systolic 108–145; BP diastolic 51–97; PULSE 99–130; RESP 14–25; TEMP 36.1–36.6; O2SAT 95–100; BMI 32.9
--- NOTE | 2021-05-14 00:18 | PC.NURSE ---
rectal tube in place
--- NOTE | 2021-05-14 00:49 | WPDPROCEDUR ---
Procedures Central Line Placement Left Femoral: Central Line Date: 05/13/21 Central Line Time: 22:00 Discussed w/ the patient/family/POA,the placement of a central venous catheter, including its clinical necessity/indication & associated potential risks, benifits and alternatives.: Yes Performed Emergently - Given emergent patient condition, temporal constraints may have precluded informed consent.: Yes Consent: Consent not obtained as patient's condition changed emergently. Patient Position: supine Provider Prep: mask, sterile gown, sterile gloves, Max. sterile barrier precautions, cap and hand hygiene with conventional soap/water or alcohol based hand rub Central line prep: 2% Chlorhexidine scrub Local anesthesia used: lidocaine 1% Amount of anesthesia used (ml): 15 Sterile US Technique with sterile gel/sterile probe covers: Yes Additional comments: Central line was attempted but was unsuccessful as the patient had multiple hematomas in and bilateral groins due to prior physicians attempt of central line. I did receive blood return on my 2nd attempt however the vessel collapsed and was unable to advance the guidewire. The attempt was terminated at. I did look in the other groin but could not visualize any of the vessels due to distortion from hematoma. The patient's blood pressures were persistently low in the 70s and despite being placed on peripheral Levophed blood pressures were still less than 90 systolic. Subsequently an IO was placed in the right tibial plateau.
[2021-05-14 01:00] LABS: Base Excess ABG 7.6 mEq/l (+/-2.0); Carboxyhemoglobin 0.6 % THb (0-2.0); Device NON-INVASIVE VENT; Fractional Inspired Oxygen 40 %; HCO3 ABG 33.5 mEq/l (22.0-26.0); Methemoglobin ABG 0.3 %THb (0-1.5); Oxygen Content ABG 11.6 %vol (16.0-22.0); Oxygen Saturation ABG 96.9 % (95.0-100.0); Oxyhemoglobin 94.8 % THb (90.0-100.0); PCO2 ABG 56.3 mmHg (35.0-45.0); PO2 ABG 92.5 mmHg (80.0-100.0); PO2 FiO2 Ratio Arterial Blood 2.31 %; Reduced Hemoglobin 4.3 %THb (0-5.0); Site Drawn RIGHT BRACHIAL; Total Hemoglobin 8.6 g/dL (12.0-18.0); pH ABG 7.393 (7.350-7.450)
[2021-05-14 01:01] LABS: Non-Invasive Expiratory Pressure 6 CMH2O; Non-Invasive Inspiratory Pressure 14 CMH2O; Non-Invasive Vent Rate 4 /MIN
--- NOTE | 2021-05-14 01:04 | PC.NURSE ---
levophed increase to 12 mcg/min rate 22.2 ml/hr
[2021-05-14] MEDS: HALOPERIDOL LACTATE 5 MG/ML VIAL IM (03:36)
[2021-05-14] MEDS: IPRATROPIUM BR 0.02% INH SOLN 0.5 MG/2.5 ML VIAL INHALATION ×4 (04:30→21:17)
--- NOTE | 2021-05-14 05:54 | PCRCNOTE ---
Window of time for administration has passed. See next scheduled administration.
--- NOTE | 2021-05-14 06:15 | ADMGEN ---
This patient, Gabbi Champagne, was admitted to [facility] ICU[facility]1 at 0530. Patient/family oriented to hospital policies and general routines including ID bracelet, bed and alarms, visiting hours, pain management, procedures, bathroom and other care routines, personal items, smoking policy, room service/diet, and visiting hours. Information on how to activate the Rapid Response Team has been discussed. Patient/Family are encouraged to report perceived risks to care and to ask questions if they do not understand what they are told or what they should do.
[2021-05-14] MEDS: SODIUM CHLORIDE 0.9% IV 1,000 ML 125 ML IV CONT ×2 (06:44→15:19)
[2021-05-14] MEDS: methylPREDNISolone SOD SUCC 125 MG VIAL 60 MG IV PUSH (06:46)
[2021-05-14 07:14] LABS: Hemoglobin 7.9 g/dL (12.0-15.0); Mean Corpuscular HGB Conc 30.4 g/dl (32-36); Mean Corpuscular Hemoglobin 29.2 pg (26-34); Mean Corpuscular Volume 95.9 fl (80-100); Mean Platelet Volume 11.5 fl (7.4-10.4); Platelet Count Result 387 k/mm3 (150-375); Red Blood Count 2.71 M/mm3 (4.2-5.4); Red Cell Distribution Width 15.4 % (11.5-14.5); White Blood Count 26.4 K/mm3 (4.5-10.0)
[2021-05-14 08:00] LABS: Alanine Aminotransferase 13 U/L (4-35); Albumin Level 2.7 g/dL (3.5-5.1); Alkaline Phosphatase 63 U/L (38-126); Anion Gap 9 mmol/L (8-16); Aspartate Amino Transferase 24 U/L (14-36); Bilirubin,Total 0.3 mg/dL (0.2-1.3); Blood Urea Nitrogen 10 mg/dL (7-17); Carbon Dioxide 33 mmol/L (22-30); Chloride 93 mmol/L (98-107); Estimated CRCL calculation 69 ml/min; Estimated Glomerular Filt Rate > 60; Glucose 189 mg/dL (65-110); Potassium 3.7 mmol/L (3.4-5.0); Sodium 135 mmol/L (137-145)
[2021-05-14] MEDS: LORazepam INJ (*CRX) 2 MG/ML VIAL 1 MG IV PUSH (08:57)
[2021-05-14] MEDS: LIDOCAINE HCL 1% PF INJ 5 ML VIAL INFILTRATE (09:15)
[2021-05-14 09:23] LABS: Band Neutrophils Percent 17 % (0-6); Lymphocytes Absolute Manual 0.26 K/mm3 (1.1-4.5); Metamyelocytes Percent 1 %; Monocytes Absolute Manual 0.26 K/mm3 (0.1-0.90); Monocytes Percent Manual 1 % (3-9); Neutrophils Percent Manual 80 % (46-73); Total Cells Counted 100
[2021-05-14 09:24] LABS: Hypochromasia 2+ (NORMAL); Stomatocytes 1+ (NORMAL)
--- NOTE | 2021-05-14 11:56 | WPDCNINT ---
Assessment and Plan Assessment and plan (1) Septic shock: Code(s): A41.9 - Sepsis, unspecified organism; R65.21 - Severe sepsis with septic shock Status: Acute Assessment and Plan: Secondary to C diff colitis versus pneumonia IV fluids Levophed PICC line was placed this morning Culture sent and pending Patient is on Rocephin and azithromycin Also on treatment for C diff colitis (2) C. difficile colitis: Code(s): A04.72 - Enterocolitis due to Clostridium difficile, not specified as recurrent Status: Acute Assessment and Plan: C diff pending On vancomycin oral and Dificid (3) Acute and chronic respiratory failure with hypercapnia: Code(s): J96.22 - Acute and chronic respiratory failure with hypercapnia Status: Acute Assessment and Plan: Was on BiPAP overnight but now on nasal cannula Use BiPAP p.r.n. COPD and steroids for baseline COPD (4) Metabolic encephalopathy: Code(s): G93.41 - Metabolic encephalopathy Status: Acute Assessment and Plan: Baseline unknown. Patient is alert oriented x3 but uncooperative and agitated Non focal exam is she is moving all 4 extremities (5) Suspected COVID-19 virus infection: Code(s): Z20.822 - Contact with and (suspected) exposure to COVID-19 Status: Acute Assessment and Plan: COVID-19 suspected. SARS-CoV-2 PCR sent and results pending Patient is in Airborne, Droplet and Contact Isolation Additional Plan DVT prophylaxis -Lovenox Code Status - Full Code Total Critical Care Time - minutes Due to a high probability of clinically significant, life threatening deterioration, the patient required my highest level of preparedness to intervene emergently and I personally spent this critical care time directly and personally managing the patient. This critical care time included obtaining a history; examining the patient; pulse oximetry; ordering and review of studies; arranging urgent treatment with development of a management plan; evaluation of patient's response to treatment; frequent reassessment; and discussions with other providers. It was exclusive of separately billable procedures and treating other patients and teaching time. Please see Assessment and Plan section and the rest of the note for further information on patient assessment and treatment Client Representative Consult Note Consult date: 05/14/21 Time Seen: 07:30 HPI: Gabbi Champagne is a 76 year old female with past medical history of recent C diff colitis, chronic hypoxemic respiratory failure, Interstitial lung disease, COPD, and exocrine pancreatic insufficiency who presented to the ER via EMS from senior living due to should increased shortness of breath and low oxygen saturations. On arrival to the ER patient was febrile. Her oxygen requirement had increased from her usual 3 L nasal cannula up to 4 L nasal cannula. On arrival to the ER the patient was noted to have multiple seedy diarrheal stools. The patient was unable to provide any significant history due to being confused and agitated. She was hypotensive and was given IV fluid bolus. Her blood pressure remained low. Multiple attempts were made to place central venous catheter by multiple physicians in the ED and at the time of admission but were unsuccessful. She remained hypotensive. Patient was also uncooperative. A right tibial IO was placed and patient was started on Levophed. This morning patient continues to be on Levophed but unable to provide any meaningful history. She is agitated uncooperative and yelling at staff. She does answer questions and follows commands but unable to tell me why she is at the hospital Review of Systems Review of Systems: ROS unobtainable: Yes unobtainable due to mental status PMFSH Past Medical History Medical History Anemia Anxiety Arthritis Back pain Bilateral shoulder pain CHF (congestive h
[2021-05-14 12:08] LABS: Lactic Acid Reflex 1.2 mmol/L (0.7-2.1)
[2021-05-14] MEDS: VANCOMYCIN ORAL 125 MG/2.5 ML SYRUP PO ×2 (14:30→17:24)
[2021-05-14] MEDS: NOREPINEPHRINE 8 MG/D5W 250 ML 8 MG/250 ML BAG 1.88 MG IV CONT (14:30)
[2021-05-14] MEDS: CENTRAL LINE FLUSH 10 ML IV PUSH ×2 (14:34→20:00)
--- NOTE | 2021-05-14 15:10 | PCSTNOTE ---
Please refer to the Bedside Swallow Evaluation in the EMR. Please note, silent aspiration cannot be ruled out at bedside.
[2021-05-14] MEDS: FIDAXOMICIN 200 MG TABLET PO (20:01)
[2021-05-15] VITALS (21 sets, daily range): BP systolic 121–139; BP diastolic 64–81; PULSE 94–131; RESP 18–26; TEMP 36.4–38.2; O2SAT 94–100
[2021-05-15] MEDS: VANCOMYCIN ORAL 125 MG/2.5 ML SYRUP PO ×5 (00:13→23:46)
[2021-05-15] MEDS: CENTRAL LINE FLUSH 10 ML IV PUSH ×3 (03:35→23:46)
[2021-05-15 04:08] LABS: SARS-CoV-2 RNA PCR Negative
[2021-05-15] MEDS: SODIUM CHLORIDE 0.9% IV 1,000 ML 125 ML IV CONT (05:10)
[2021-05-15 05:42] LABS: Hematocrit 26.4 % (37.0-47.0); Hemoglobin 7.7 g/dL (12.0-15.0); Mean Corpuscular HGB Conc 29.2 g/dl (32-36); Mean Corpuscular Hemoglobin 28.2 pg (26-34); Mean Corpuscular Volume 96.7 fl (80-100); Mean Platelet Volume 11.2 fl (7.4-10.4); Platelet Count Result 350 k/mm3 (150-375); Red Blood Count 2.73 M/mm3 (4.2-5.4); Red Cell Distribution Width 15.2 % (11.5-14.5)
[2021-05-15 05:53] LABS: Alanine Aminotransferase 11 U/L (4-35); Albumin Level 2.4 g/dL (3.5-5.1); Alkaline Phosphatase 55 U/L (38-126); Anion Gap 7 mmol/L (8-16); Aspartate Amino Transferase 28 U/L (14-36); Bilirubin,Total 0.1 mg/dL (0.2-1.3); Blood Urea Nitrogen 11 mg/dL (7-17); Calcium 7.5 mg/dL (8.4-10.2); Carbon Dioxide 31 mmol/L (22-30); Chloride 97 mmol/L (98-107); Estimated CRCL calculation 69 ml/min; Estimated Glomerular Filt Rate > 60; Glucose 150 mg/dL (65-110); Magnesium 1.2 mg/dL (1.6-2.3); Potassium 3.1 mmol/L (3.4-5.0); Sodium 135 mmol/L (137-145)
[2021-05-15] MEDS: IPRATROPIUM BR 0.02% INH SOLN 0.5 MG/2.5 ML VIAL INHALATION ×3 (09:00→22:48)
[2021-05-15] MEDS: LIPASE/AMYLASE/PROTEASE 12,000 UNITS CAP 2 CAP PO ×3 (10:01→17:17)
[2021-05-15] MEDS: ENOXAPARIN 40 MG/0.4 ML SYRINGE SUB-Q (10:01)
[2021-05-15] MEDS: methylPREDNISolone SOD SUCC 125 MG VIAL 60 MG IV PUSH (10:02)
[2021-05-15] MEDS: FIDAXOMICIN 200 MG TABLET PO ×2 (10:02→23:45)
--- NOTE | 2021-05-15 10:50 | WPDINTPN ---
Progress Note: A&P Assessment and Plan (1) Septic shock: Code(s): A41.9 - Sepsis, unspecified organism; R65.21 - Severe sepsis with septic shock Status: Acute Assessment and Plan: Secondary to C diff colitis versus pneumonia versus UTI IV fluids will be continued but decreased rate Levophed is off PICC line was placed yesterday Culture sent and urine cultures growing Enterococcus Patient is on Rocephin and azithromycin Also on treatment for C diff colitis C diff assay is pending (2) C. difficile colitis: Code(s): A04.72 - Enterocolitis due to Clostridium difficile, not specified as recurrent Status: Acute Assessment and Plan: C diff pending On vancomycin oral and Dificid KUB was done for NG tube placement it did not show any dilated colon or bowel loops Advance diet once cleared by speech (3) Acute and chronic respiratory failure with hypercapnia: Code(s): J96.22 - Acute and chronic respiratory failure with hypercapnia Status: Acute Assessment and Plan: Was on BiPAP on presentation but now on nasal cannula Use BiPAP p.r.n. COPD and steroids for baseline COPD (4) Metabolic encephalopathy: Code(s): G93.41 - Metabolic encephalopathy Status: Acute Assessment and Plan: Baseline unknown. Appears to have dementia at baseline now improved Non focal exam is she is moving all 4 extremities (5) Suspected COVID-19 virus infection: Code(s): Z20.822 - Contact with and (suspected) exposure to COVID-19 Status: Acute Assessment and Plan: COVID-19 suspected. SARS-CoV-2 PCR was negative (6) Electrolyte abnormality: Code(s): E87.8 - Other disorders of electrolyte and fluid balance, not elsewhere classified Status: Acute Assessment and Plan: Replace low magnesium and potassium Additional Plan DVT prophylaxis -Lovenox Code Status - Full Code Patient will be re-evaluated by speech. Up in chair. Incentive spirometry, PT OT Transfer out of ICU today Subjective Date/time seen: 05/15/21 10:50 She is much more awake today although she still talks randomly when asked questions. Denies any complaints today. States she feels fine. She states she is not very hungry but would like to try something light. Yesterday she failed her swallow eval as she was very drowsy. NG tube was placed to give her vancomycin and other medication. Levophed was turned off yesterday and she has been off of Levophed since yesterday. She states she slept okay. She states her abdomen is sore. Denies any diarrhea but she does have FMS in place Patient denies fever, chest pain, shortness of breath, cough, nausea vomiting, abdominal pain, diarrhea, headache or constipation. Review of Systems Review of Systems: All systems reviewed & are unremarkable except as noted in HPI and below (Subjective) Exam Narrative: General: Pt is alert awake and in NAD Lungs/Chest: Trachea central Clear BS B/L, No crackles or wheezing. Cardiac: RRR. Normal S1 S2. No murmurs Circulation: Pedal pulses are intact and symmetrical. Abdomen: Normal bowel sounds. Obese. Soft, voluntary guarding, mild diffuse tenderness to palpation Extremities: No clubbing, cyanosis or edema. Warm : Andrews in place Neurologic: Alert oriented x2,, less confused and agitated today, PERRL Skin: No Rash Objective Data Vital Signs Vital Signs: Vital Signs - 24 hr 05/14/21 10:56 05/14/21 10:57 05/14/21 11:00 Temperature Pulse Rate 108 H 106 H Respiratory Rate 22 H Blood Pressure 117/59 L Pulse Oximetry 98 05/14/21 12:00 05/14/21 14:00 05/14/21 14:30 Temperature 36.3 C L 36.1 C L Pulse Rate 107 H 99 117 H Respiratory Rate 22 H 22 H Blood Pressure 132/68 118/55 L 128/97 H Pulse Oximetry 100 97 05/14/21 14:39 05/14/21 14:49 05/14/21 14:50 Temperature Pulse Rate 112 H 107 H Respiratory Rate 24 H 25 H Blood Pressure Pulse Oximetry 95 05/14/21 14
[2021-05-15] MEDS: POTASSIUM CHLORIDE 20 MEQ PACKET (FOR LIQUID) 40 MEQ FEED TUBE (11:09)
[2021-05-15] MEDS: MAGNESIUM SULFATE 3GM/D5W100ML 3 GM/100 ML BAG IVPB (11:55)
[2021-05-15] MEDS: ACETAMINOPHEN 325 MG TABLET 650 MG PO ×2 (15:54→23:45)
[2021-05-15] MEDS: SODIUM CHLORIDE 0.9% IV 1,000 ML 75 ML IV CONT (19:13)
[2021-05-16] VITALS (17 sets, daily range): BP systolic 129–157; BP diastolic 64–89; PULSE 75–111; RESP 18–26; TEMP 36.3–36.9; O2SAT 96–98
[2021-05-16] MEDS: IPRATROPIUM BR 0.02% INH SOLN 0.5 MG/2.5 ML VIAL INHALATION ×3 (03:25→18:51)
[2021-05-16] MEDS: VANCOMYCIN ORAL 125 MG/2.5 ML SYRUP PO ×3 (06:15→17:24)
[2021-05-16 06:38] LABS: Hematocrit 24.7 % (37.0-47.0); Hemoglobin 7.4 g/dL (12.0-15.0); Mean Corpuscular Hemoglobin 28.6 pg (26-34); Mean Corpuscular Volume 95.4 fl (80-100); Mean Platelet Volume 10.9 fl (7.4-10.4); Platelet Count Result 312 k/mm3 (150-375); Red Blood Count 2.59 M/mm3 (4.2-5.4); Red Cell Distribution Width 15.4 % (11.5-14.5)
[2021-05-16 06:47] LABS: Alanine Aminotransferase 13 U/L (4-35); Albumin Level 2.5 g/dL (3.5-5.1); Alkaline Phosphatase 63 U/L (38-126); Anion Gap 0 mmol/L (8-16); Aspartate Amino Transferase 33 U/L (14-36); Bilirubin,Total < 0.1 mg/dL (0.2-1.3); Blood Urea Nitrogen 10 mg/dL (7-17); Calcium 7.2 mg/dL (8.4-10.2); Carbon Dioxide 31 mmol/L (22-30); Chloride 102 mmol/L (98-107); Estimated CRCL calculation 69 ml/min; Estimated Glomerular Filt Rate > 60; Glucose 137 mg/dL (65-110); Magnesium 1.9 mg/dL (1.6-2.3); Potassium 3.3 mmol/L (3.4-5.0); Sodium 133 mmol/L (137-145)
[2021-05-16] MEDS: SODIUM CHLORIDE 0.9% IV 1,000 ML 75 ML IV CONT (10:00)
[2021-05-16] MEDS: CENTRAL LINE FLUSH 10 ML IV PUSH ×3 (10:01→21:03)
[2021-05-16] MEDS: FIDAXOMICIN 200 MG TABLET PO ×2 (10:01→20:05)
[2021-05-16] MEDS: ENOXAPARIN 40 MG/0.4 ML SYRINGE SUB-Q (10:01)
[2021-05-16] MEDS: ACETAMINOPHEN 325 MG TABLET 650 MG PO ×2 (10:01→20:55)
[2021-05-16] MEDS: LIPASE/AMYLASE/PROTEASE 12,000 UNITS CAP 2 CAP PO ×3 (10:01→17:24)
--- NOTE | 2021-05-16 10:50 | PCDIET ---
UNABLE TO GIVE SOLU-MEDROL, WAITING FOR IT TO COME UP FROM PHARMACY, PHARMACY NOTIFIED TWICE
[2021-05-16] MEDS: methylPREDNISolone SOD SUCC 125 MG VIAL 60 MG IV PUSH (13:39)
[2021-05-16 14:38] LABS: Base Excess ABG 3.2 mEq/l (+/-2.0); Device NASAL CANNULA; Fractional Inspired Oxygen 32 %; HCO3 ABG 28.1 mEq/l (22.0-26.0); Modified Allen's Test Pass; Oxygen Content ABG 14.4 %vol (16.0-22.0); Oxygen Saturation ABG 95.4 % (95.0-100.0); Oxyhemoglobin 93.3 % THb (90.0-100.0); PCO2 ABG 44.4 mmHg (35.0-45.0); PO2 ABG 76.2 mmHg (80.0-100.0); PO2 FiO2 Ratio Arterial Blood 2.38 %; Site Drawn LEFT RADIAL; Total Hemoglobin 10.9 g/dL (12.0-18.0); pH ABG 7.419 (7.350-7.450)
--- NOTE | 2021-05-16 16:41 | PM.IMPN ---
Progress Note: A&P Assessment and Plan (1) Septic shock: Code(s): A41.9 - Sepsis, unspecified organism; R65.21 - Severe sepsis with septic shock Status: Acute Assessment and Plan: Secondary to C diff colitis versus pneumonia IV fluids Levophed PICC line was placed this morning Culture sent and pending Patient is on Rocephin and azithromycin Also on treatment for C diff colitis (2) C. difficile colitis: Code(s): A04.72 - Enterocolitis due to Clostridium difficile, not specified as recurrent Status: Acute Assessment and Plan: C diff pending On vancomycin oral and Dificid (3) Acute and chronic respiratory failure with hypercapnia: Code(s): J96.22 - Acute and chronic respiratory failure with hypercapnia Status: Acute Assessment and Plan: Was on BiPAP overnight but now on nasal cannula Use BiPAP p.r.n. COPD and steroids for baseline COPD (4) Metabolic encephalopathy: Code(s): G93.41 - Metabolic encephalopathy Status: Acute Assessment and Plan: Baseline unknown. Patient is alert oriented x3 but uncooperative and agitated Non focal exam is she is moving all 4 extremities (5) Suspected COVID-19 virus infection: Code(s): Z20.822 - Contact with and (suspected) exposure to COVID-19 Status: Acute Assessment and Plan: COVID-19 suspected. SARS-CoV-2 PCR sent and results pending Patient is in Airborne, Droplet and Contact Isolation (6) Electrolyte abnormality: Code(s): E87.8 - Other disorders of electrolyte and fluid balance, not elsewhere classified Status: Acute (7) Urinary tract infection: Qualifiers: Hematuria presence: without hematuria Urinary tract infection type: acute cystitis Qualified Code(s): N30.00 - Acute cystitis without hematuria Code(s): N39.0 - Urinary tract infection, site not specified Status: Acute (8) Acute on chronic respiratory failure with hypoxia and hypercapnia: Code(s): J96.21 - Acute and chronic respiratory failure with hypoxia; J96.22 - Acute and chronic respiratory failure with hypercapnia Status: Acute (9) Sepsis: Code(s): A41.9 - Sepsis, unspecified organism Status: Acute (10) Altered mental status: Qualifiers: Altered mental status type: disorientation Qualified Code(s): R41.0 - Disorientation, unspecified Code(s): R41.82 - Altered mental status, unspecified Status: Acute (11) Infiltrate of lung present on chest x-ray: Code(s): R91.8 - Other nonspecific abnormal finding of lung field Status: Acute (12) Leukocytosis: Code(s): D72.829 - Elevated white blood cell count, unspecified Status: Acute (13) Community acquired pneumonia: Qualifiers: Laterality: unspecified laterality Qualified Code(s): J18.9 - Pneumonia, unspecified organism Code(s): J18.9 - Pneumonia, unspecified organism Status: Acute Additional Plan DVT prophylaxis -Lovenox Code Status - Full Code Patient will be re-evaluated by speech. Up in chair. Incentive spirometry, PT OT 76-year-old female admitted to the hospital in septic shock requiring Levophed. Source considered to be C diff. versus pneumonia patient was placed on p.o. vancomycin, Rocephin, azithromycin. Patient also noted to have altered mental status secondary to metabolic encephalopathy which has improved during this hospitalization with medical therapy. And acute on chronic respiratory failure with hypercapnia for which she was placed on BiPAP with improvement. her COPD was treated with steroids and inhalers and patient has been ruled out for COVID-19. On 05/15/2021 she was transferred out of the ICU. 05/16/21 Patient doing okay noted to have mild increased work of breathing ABG performed Lasix ordered. Patient with BiPAP at bedside for intermittent use p.r.n.. Continues to have diarrhea receiving treatment for C diff. and her VRE
[2021-05-16] MEDS: FUROSEMIDE INJ 40 MG/4 ML VIAL IV PUSH (19:27)
[2021-05-17] VITALS (18 sets, daily range): BP systolic 123–157; BP diastolic 71–93; PULSE 77–108; RESP 16–24; TEMP 36.7–37.1; O2SAT 94–97
[2021-05-17] MEDS: VANCOMYCIN ORAL 125 MG/2.5 ML SYRUP PO ×2 (00:36→05:26)
[2021-05-17] MEDS: SODIUM CHLORIDE 0.9% IV 1,000 ML 75 ML IV CONT ×2 (00:38→16:19)
[2021-05-17] MEDS: ACETAMINOPHEN 325 MG TABLET 650 MG PO ×2 (04:48→20:13)
[2021-05-17] MEDS: CENTRAL LINE FLUSH 10 ML IV PUSH ×3 (05:25→20:14)
[2021-05-17] MEDS: CENTRAL LINE FLUSH 20 ML IV PUSH (05:26)
[2021-05-17 06:17] LABS: Hematocrit 25.9 % (37.0-47.0); Hemoglobin 7.9 g/dL (12.0-15.0); Mean Corpuscular HGB Conc 30.5 g/dl (32-36); Mean Corpuscular Hemoglobin 28.3 pg (26-34); Mean Corpuscular Volume 92.8 fl (80-100); Mean Platelet Volume 11.2 fl (7.4-10.4); Platelet Count Result 397 k/mm3 (150-375); Red Blood Count 2.79 M/mm3 (4.2-5.4); Red Cell Distribution Width 15.4 % (11.5-14.5); White Blood Count 23.9 K/mm3 (4.5-10.0)
[2021-05-17 06:37] LABS: Alanine Aminotransferase 16 U/L (4-35); Albumin Level 2.8 g/dL (3.5-5.1); Alkaline Phosphatase 68 U/L (38-126); Anion Gap 3 mmol/L (8-16); Aspartate Amino Transferase 38 U/L (14-36); Bilirubin,Total 0.2 mg/dL (0.2-1.3); Blood Urea Nitrogen 12 mg/dL (7-17); Calcium 7.1 mg/dL (8.4-10.2); Carbon Dioxide 31 mmol/L (22-30); Chloride 101 mmol/L (98-107); Estimated CRCL calculation 69 ml/min; Estimated Glomerular Filt Rate > 60; Glucose 113 mg/dL (65-110); Magnesium 1.6 mg/dL (1.6-2.3); Potassium 3.3 mmol/L (3.4-5.0); Sodium 135 mmol/L (137-145)
[2021-05-17] MEDS: FIDAXOMICIN 200 MG TABLET PO ×2 (09:03→20:14)
[2021-05-17] MEDS: LIPASE/AMYLASE/PROTEASE 12,000 UNITS CAP 2 CAP PO ×3 (09:03→16:21)
[2021-05-17] MEDS: ENOXAPARIN 40 MG/0.4 ML SYRINGE SUB-Q (09:03)
[2021-05-17] MEDS: methylPREDNISolone SOD SUCC 125 MG VIAL 60 MG IV PUSH (09:03)
[2021-05-17] MEDS: IPRATROPIUM BR 0.02% INH SOLN 0.5 MG/2.5 ML VIAL INHALATION ×3 (09:50→19:39)
--- NOTE | 2021-05-17 11:47 | WPDINFPN2 ---
Progress Note: A&P Assessment and Plan (1) C. difficile colitis: Code(s): A04.72 - Enterocolitis due to Clostridium difficile, not specified as recurrent Status: Acute Assessment and Plan: 1. C diff colitis, relapsed 2. COPD without infectious complication REC Keep systemic steroids to minimum required, as it will delay her colitis recovery. Stop other Rx, including Vanc oral (dual therapy offers no added benefit). Fidaxomicin x 7 days more. Stool transplant should be considered if second relapse. Call if Qs Subjective Date/time seen: 05/17/21 11:47 Objective Data Vital Signs Vital Signs: Vital Signs - 24 hr 05/16/21 12:00 05/16/21 13:13 05/16/21 13:51 Temperature Pulse Rate 105 H 89 102 H Respiratory Rate 20 26 H Blood Pressure Pulse Oximetry 97 05/16/21 14:09 05/16/21 16:00 05/16/21 17:36 Temperature 36.7 C 36.7 C Pulse Rate 108 H 111 H 106 H Respiratory Rate 24 H 18 Blood Pressure 157/83 H 153/80 H Pulse Oximetry 96 96 05/16/21 18:53 05/16/21 18:54 05/16/21 20:00 Temperature Pulse Rate 104 H 107 H Respiratory Rate 20 Blood Pressure Pulse Oximetry 97 96 05/16/21 22:00 05/17/21 00:00 05/17/21 04:00 Temperature 36.4 C L 36.8 C Pulse Rate 75 102 H 108 H Respiratory Rate 18 18 Blood Pressure 145/75 H 154/93 H Pulse Oximetry 96 97 05/17/21 08:00 05/17/21 09:50 05/17/21 10:00 Temperature 36.9 C Pulse Rate 77 99 101 H Respiratory Rate 20 24 H Blood Pressure 157/92 H Pulse Oximetry 94 96 05/17/21 10:02 05/17/21 10:51 05/17/21 11:02 Temperature Pulse Rate 102 H 100 105 H Respiratory Rate 20 22 H 22 H Blood Pressure Pulse Oximetry 94 Intake/Output Intake/Output: Intake & Output 05/14/21 05/15/21 05/16/21 05/17/21 23:59 23:59 23:59 23:59 Intake Total 2550 2330 3090 700 Output Total 500 5690 787 1540 Balance 2050 980 2440 -600 Meds/Results Medications: Active Medications Generic Name Dose Route Start Last Admin Trade Name Freq PRN Reason Stop Dose Admin Acetaminophen 650 mg 05/15/21 10:11 05/17/21 04:48 Acetaminophen 325 Mg Tablet PO 650 mg Q6H PRN Administration Mild Pain (1-3) or Fever Lipase/Protease/Amylase 2 cap 05/14/21 08:00 05/17/21 09:03 Lipase/Amylase/Protease 12,000 Units Cap PO 2 cap TIDWM DOC Administration Enoxaparin Sodium 40 mg 05/15/21 09:00 05/17/21 09:03 Enoxaparin 40 Mg/0.4 Ml Syringe SUB-Q 40 mg DAILY DOC Administration Fidaxomicin 200 mg 05/14/21 09:00 05/17/21 09:03 Fidaxomicin 200 Mg Tablet PO 05/24/21 11:59 200 mg Q12HR DOC Administration Sodium Chloride 1,000 mls @ 75 mls/hr 05/13/21 17:10 05/17/21 00:38 Normal Saline Iv IV CONT 75 mls/hr .[id number] DOC Administration Ipratropium [place] 0.5 mg 05/13/21 20:00 05/17/21 09:50 Ipratropium Br 0.02% Inh Soln 0.5 Mg/2.5 Ml Vial INHALATION 0.5 mg Q6HRT DOC Administration Levalbuterol HCl 1.25 mg 05/14/21 02:00 05/17/21 09:50 Levalbuterol Neb 1.25 Mg/0.5 Ml INHALATION 1.25 mg Q6HRT DOC Administration Methylprednisolone Sodium Succinate 60 mg 05/15/21 09:00 05/17/21 09:03 Methylprednisolone Sod Succ 125 Mg Vial IV PUSH 60 mg QAM DOC Administration Sodium Chloride 10 ml 05/14/21 14:00 05/17/21 05:25 Central Line Flush IV PUSH 10 ml Q8HR DOC Administration Sodium Chloride 10 ml 05/14/21 10:27 Central Line Flush IV PUSH PRN PRN with TPN bag changes Sodium Chloride 20 ml 05/14/21 10:27 05/17/21 05:26 Central Line Flush IV PUSH 20 ml PRN PRN Administration after blood draws Vancomycin HCl 125 mg 05/14/21 00:00 05/17/21 05:26 Vancomycin Oral 125 Mg/2.5 Ml Syrup PO 05/23/21 00:01 125 mg Q6HR DOC Administration Radiology Results: ITS Impressions Chest X-Ray 05/14/21 10:07 IMPRESSION: 1. PICC tip at the superior cavoatrial junction. 2. Stable chronic interstitial lung disease. 3. Chronic esau
--- NOTE | 2021-05-17 13:06 | PCSTNOTE ---
Therapist spoke with nurse, Ayesha, who reports patient's swallowing skills are doing well and that patient has exhibited no signs of aspiration.
[2021-05-17] MEDS: ONDANSETRON INJ 4 MG/2 ML VIAL IV PUSH (13:22)
--- NOTE | 2021-05-17 16:26 | CONS_ITS ---
DATE OF CONSULTATION: REASON FOR CONSULTATION: C difficile infection. HISTORY OF PRESENT ILLNESS: A 76-year-old female with COPD. She was here in April and had C difficile infection. She was given vancomycin at the time of discharge, which she completed approximately May 04. She returned to the hospital on May 13 from her senior care with shortness of breath. She was febrile here. At baseline, she is on 3 L, but required 4 L instead. She also had diarrhea while in the emergency room and was admitted. She could not have a central line placed, had a right tibial intraosseous catheter placed and was on Levophed with improvement. She has now been transferred to the floor. She has been given methylprednisolone, ceftriaxone, and azithromycin. Consultation requested. The patient does have a Andrews catheter in place, which is chronic and still has a Flexi-Seal in place. She has no abdominal pain and denies any fever, chills or sweats. ALLERGIES: NONE KNOWN. HABITS: Ex-smoker. No alcohol to excess. PRESENT MEDICATIONS: As above. No other immunosuppressants. PAST MEDICAL HISTORY: Very extensive and I reviewed in full. Pertinent positives include vascular surgery, bladder suspension, spinal surgery, peripheral vascular disease, pancreatitis, overactive bladder, pancreatic insufficiency, dementia, and others reviewed. REVIEW OF SYSTEMS: Compromised by the patient's memory loss. 14-point review currently is otherwise negative. FAMILY HISTORY: Not pertinent to her present illness. SOCIAL HISTORY: No family at the bedside. detention resident. PHYSICAL EXAMINATION: GENERAL: This is an elderly female, who appears her actual age. No acute distress. VITAL SIGNS: Hospital day #2, she was up to 38.2, otherwise has been afebrile, 101, 24, 157/92, 96%. SKIN: Warm and dry. No rashes. NODES: She has no cervical adenopathy. EENT: Poor dentition. The oropharynx, oral mucosa otherwise normal. Pupils equal, round, reactive. No conjunctival injection. No icterus. NECK: No meningismus or mass. LUNGS: Clear to auscultation, though with diminished breath sounds throughout. Hyperresonant to percussion. Breath sounds are vesicular. CARDIAC: Tachycardic, regular. No murmurs or gallops. Pulses are 2+ and equal. ABDOMEN: Epigastric tenderness. No guarding. She is nontender elsewhere. She is morbidly obese, but nondistended. No evidence of ascites on exam. No masses and no organomegaly. EXTREMITIES: Without clubbing, cyanosis, or edema. LAB: Her C difficile assay is again positive. Blood cultures, no growth after 4 days incubation. Urine with VRE. This is a Andrews specimen. White blood cell count on discharge April 26 was 16.2, on return 20.5 up to 26.4, now 23.9; hemoglobin 7.9; platelets 397. Differential not done, earlier showed a left shift. Blood gases normal on 3 L. She has hyponatremia that is mild, hypokalemia, also mild. Remainder of electrolytes normal. Albumin 2.8. Urinalysis, multiple abnormalities. RADIOLOGY: KUB, NG tube in place, which has now been removed. ASSESSMENT: 1. Leukocytosis, diarrhea, abdominal tenderness due to relapsed Clostridium difficile infection. Other causes of her leukocytosis are unlikely. Although she is currently on steroids, which is contributing toward her present leukocytosis though not on admission. 2. Chronic obstructive pulmonary disease without infectious exacerbation. She has no pneumonia nor lower respiratory tract infection otherwise. 3. Protein-calorie malnutrition. 4. Asymptomatic bacteriuria. She has no urinary tract infection. RECOMMENDATIONS: 1. Stop antibiotics other than oral fidaxomicin, which would continue through the morning of May 24 to complete 10 days of t
--- NOTE | 2021-05-17 19:08 | PM.IMPN ---
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 difficile colitis: Code(s): A04.72 - Enterocolitis due to Clostridium difficile, not specified as recurrent Status: Acute Assessment and Plan: Improving symptomatically, only 1 bowel movement today per patient Tolerating diet, denies abdominal pain or diarrhea Infectious disease on board, recommending stop antibiotics other than fidaxomicin, to complete on May 24 Consider stool transplant if relapse Curtail steroids as much as possible given ongoing colitis (6) Sepsis: Code(s): A41.9 - Sepsis, unspecified organism Status: Acute Assessment and Plan: Continue IV fluid hydration, no longer on pressor support Hemodynamically stable, continue to monitor (7) Altered mental status: Qualifiers: Altered mental status type: disorientation Qualified Code(s): R41.0 - Disorientation, unspecified Code(s): R41.82 - Altered mental status, unspecified Status: Acute (8) Infiltrate of lung present on chest x-ray: Code(s): R91.8 - Other nonspecific abnormal finding of lung field Status: Acute (9) Community acquired pneumonia: Qualifiers: Laterality: unspecified laterality Qualified Code(s): J18.9 - Pneumonia, unspecified organism Code(s): J18.9 - Pneumonia, unspecified organism Status: Acute (10) Urinary tract infection: Qualifiers: Hematuria presence: without hematuria Urinary tract infection type: acute cystitis Qualified Code(s): N30.00 - Acute cystitis without hematuria Code(s): N39.0 - Urinary tract infection, site not specified Status: Acute (11) CHF (congestive heart failure): Code(s): I50.9 - Heart failure, unspecified Status: Acute (12) COPD (chronic obstructive pulmonary disease): Qualifiers: COPD type: unspecified COPD Qualified Code(s): J44.9 - Chronic obstructive pulmonary disease, unspecified Code(s): J44.9 - Chronic obstructive pulmonary disease, unspecified Status: Chronic Assessment and Plan: Continue breathing treatments Subjective Date/time seen: 05/17/21 19:08 No acute medical complaints, only 1 bowel movement today Review of Systems Review of Systems: All systems reviewed & are unremarkable except as noted in HPI and below (Subjective) Exam Narrative: General: Pt is alert awake and in NAD Lungs/Chest: Trachea central Clear BS B/L, No crackles or wheezing. Cardiac: RRR. Normal S1 S2. No murmurs Abdomen: Normal bowel sounds. Obese. Soft, mild diffuse tenderness to palpation rectal tube in place Extremities: No clubbing, cyanosis or edema. Warm : Andrews in place Neurologic: Alert oriented x2,, cranial nerves intact Skin: No Rash Objective Data Vital Signs Vital Signs: Vital Signs - 24 hr 05/16/21 20:00 05/16/21 22:00 05/17/21 00:00 Temperature 97.5 F L Pulse Rate 107 H 75 102 H Respiratory Rate 18 Blood Pressure 145/75 H Pulse Oximetry 96 96 05/17/21 04:00 05/17/21 08:00 05/17/21 09:50 Temperature 98.2 F Pulse Rate 108 H 77 99 Respiratory Rate 18 20 Blood Pressure 154/93 H Pulse Oximetry 97 94 05/17/21 10:00 05/17/21 10:02 05/17
[2021-05-18] VITALS (16 sets, daily range): BP systolic 137–162; BP diastolic 80–92; PULSE 81–99; RESP 16–28; TEMP 36.6–36.9; O2SAT 94–99
[2021-05-18] MEDS: IPRATROPIUM BR 0.02% INH SOLN 0.5 MG/2.5 ML VIAL INHALATION ×4 (01:34→21:18)
[2021-05-18] MEDS: CENTRAL LINE FLUSH 10 ML IV PUSH ×3 (04:45→21:45)
[2021-05-18] MEDS: CENTRAL LINE FLUSH 20 ML IV PUSH (04:45)
[2021-05-18] MEDS: ONDANSETRON INJ 4 MG/2 ML VIAL IV PUSH ×3 (04:46→23:38)
[2021-05-18 05:42] LABS: Basophils Absolute Auto 0.1 K/mm3 (0.0-0.1); Basophils Percent Auto 0.6 % (0.2-1.2); Eosinophils Percent Auto 0.1 % (0-4.4); Hematocrit 24.5 % (37.0-47.0); Hemoglobin 7.4 g/dL (12.0-15.0); Immature Granulocyte Absolute 2.59 K/mm3 (0.00-0.031); Immature Granulocyte Percent A 13.4 % (0-0.5); Lymphocytes Absolute Auto 1.71 K/mm3 (0.9-3.2); Lymphocytes Percent Auto 8.9 % (18.3-44.2); Mean Corpuscular HGB Conc 30.2 g/dl (32-36); Mean Corpuscular Hemoglobin 28.8 pg (26-34); Mean Corpuscular Volume 95.3 fl (80-100); Mean Platelet Volume 10.9 fl (7.4-10.4); Monocytes Absolute Auto 1.4 K/mm3 (0.1-0.6); Monocytes Percent Auto 7.4 % (2.6-8.5); Neutrophils Absolute Auto 13.4 K/mm3 (1.3-6.7); Neutrophils Percent Auto 69.6 % (45.5-73.1); Nucleated Red Blood Cells Absolute Auto 0.1 K/mm3 (0.0-0.012); Nucleated Red Blood Cells Perc 0.3 % (0.0-0.2); Platelet Count Result 393 k/mm3 (150-375); Red Blood Count 2.57 M/mm3 (4.2-5.4); Red Cell Distribution Width 15.7 % (11.5-14.5); White Blood Count 19.3 K/mm3 (4.5-10.0)
[2021-05-18 05:59] LABS: Alanine Aminotransferase 15 U/L (4-35); Albumin Level 2.8 g/dL (3.5-5.1); Alkaline Phosphatase 52 U/L (38-126); Anion Gap 6 mmol/L (8-16); Aspartate Amino Transferase 32 U/L (14-36); Bilirubin,Total 0.1 mg/dL (0.2-1.3); Blood Urea Nitrogen 13 mg/dL (7-17); Carbon Dioxide 32 mmol/L (22-30); Chloride 96 mmol/L (98-107); Estimated CRCL calculation 60 ml/min; Estimated Glomerular Filt Rate > 60; Glucose 109 mg/dL (65-110); Magnesium 1.6 mg/dL (1.6-2.3); Potassium 3.1 mmol/L (3.4-5.0); Sodium 134 mmol/L (137-145)
[2021-05-18 07:26] LABS: Band Neutrophils Percent 6 % (0-6); Lymphocytes Absolute Manual 1.93 K/mm3 (1.1-4.5); Monocytes Absolute Manual 0.19 K/mm3 (0.1-0.90); Monocytes Percent Manual 1 % (3-9); Neutrophils Absolute Manual 17.17 K/mm3 (1.7-7.2); Neutrophils Percent Manual 83 % (46-73); Platelet Estimate Adequate (Adequate); Total Cells Counted 100
[2021-05-18 07:27] LABS: Anisocytosis 2+ (NORMAL); Microcytosis 1+ (NORMAL)
[2021-05-18] MEDS: LIPASE/AMYLASE/PROTEASE 12,000 UNITS CAP 2 CAP PO ×3 (08:07→17:05)
[2021-05-18] MEDS: FIDAXOMICIN 200 MG TABLET PO ×2 (08:08→21:45)
[2021-05-18] MEDS: methylPREDNISolone SOD SUCC 125 MG VIAL 60 MG IV PUSH (08:08)
[2021-05-18] MEDS: SODIUM CHLORIDE 0.9% IV 1,000 ML 75 ML IV CONT ×2 (08:08→21:44)
[2021-05-18] MEDS: ENOXAPARIN 40 MG/0.4 ML SYRINGE SUB-Q (08:08)
[2021-05-18] MEDS: HYDROcodone/acetaminophen (*CRX) 5-325 MG TABLET 1 TAB PO ×3 (09:42→23:38)
--- NOTE | 2021-05-18 11:34 | PCSTNOTE ---
Therapist continues to monitor patient through nursing conference and review of Hospitalist notes, etc. No further issues noted. Patient will be discharged.
--- NOTE | 2021-05-18 17:04 | PM.IMPN ---
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 difficile colitis: Code(s): A04.72 - Enterocolitis due to Clostridium difficile, not specified as recurrent Status: Acute Assessment and Plan: Improving symptomatically, only 1 bowel movement today per patient Tolerating diet, denies abdominal pain or diarrhea Infectious disease on board, recommending stop antibiotics other than fidaxomicin, to complete on May 24 Consider stool transplant if relapse Curtail steroids as much as possible given ongoing colitis 05/18/21 17:04 patient is 76-year-old female with relapsed a C diff initially patient was started on Flagyl and oral vancomycin patient was seen by ID recommended stop those to antibiotic and started the patient fidaxomicin for total of 10 days to complete on 05/24, patient has a rectal tube and having loose BM, patient does complaint abdominal pain feels nausea, will continue to will continue monitor electrolytes and supplement as needed. (6) Sepsis: Code(s): A41.9 - Sepsis, unspecified organism Status: Acute Assessment and Plan: Continue IV fluid hydration, no longer on pressor support Hemodynamically stable, continue to monitor (7) Altered mental status: Qualifiers: Altered mental status type: disorientation Qualified Code(s): R41.0 - Disorientation, unspecified Code(s): R41.82 - Altered mental status, unspecified Status: Acute (8) Infiltrate of lung present on chest x-ray: Code(s): R91.8 - Other nonspecific abnormal finding of lung field Status: Acute (9) Community acquired pneumonia: Qualifiers: Laterality: unspecified laterality Qualified Code(s): J18.9 - Pneumonia, unspecified organism Code(s): J18.9 - Pneumonia, unspecified organism Status: Acute (10) Urinary tract infection: Qualifiers: Hematuria presence: without hematuria Urinary tract infection type: acute cystitis Qualified Code(s): N30.00 - Acute cystitis without hematuria Code(s): N39.0 - Urinary tract infection, site not specified Status: Acute (11) CHF (congestive heart failure): Code(s): I50.9 - Heart failure, unspecified Status: Acute (12) COPD (chronic obstructive pulmonary disease): Qualifiers: COPD type: unspecified COPD Qualified Code(s): J44.9 - Chronic obstructive pulmonary disease, unspecified Code(s): J44.9 - Chronic obstructive pulmonary disease, unspecified Status: Chronic Assessment and Plan: Continue breathing treatments Additional Plan DVT prophylaxis -Lovenox Code Status - Full Code Patient will be re-evaluated by speech. Up in chair. Incentive spirometry, PT OT 76-year-old female admitted to the hospital in septic shock requiring Levophed. Source considered to be C diff. versus pneumonia patient was placed on p.o. vancomycin, Rocephin, azithromycin. Patient also noted to have altered mental status secondary to metabolic encephalopathy which has improved during this hospitalization with medical therapy. And acute on chronic respiratory failure with hypercapnia for which she was placed on BiPAP with improvement. her COPD was treated with stero
[2021-05-18] MEDS: POTASSIUM CHLORIDE 20 MEQ TABLET 40 MEQ PO (17:05)
[2021-05-19] VITALS (18 sets, daily range): BP systolic 135–163; BP diastolic 79–93; PULSE 84–102; RESP 18–21; TEMP 36.3–36.8; O2SAT 94–100
[2021-05-19] MEDS: IPRATROPIUM BR 0.02% INH SOLN 0.5 MG/2.5 ML VIAL INHALATION ×5 (03:09→21:02)
[2021-05-19] MEDS: CENTRAL LINE FLUSH 10 ML IV PUSH ×3 (05:08→19:50)
[2021-05-19 05:18] LABS: Hematocrit 24.2 % (37.0-47.0); Hemoglobin 7.1 g/dL (12.0-15.0); Mean Corpuscular HGB Conc 29.3 g/dl (32-36); Mean Corpuscular Hemoglobin 28.7 pg (26-34); Mean Platelet Volume 10.3 fl (7.4-10.4); Platelet Count Result 370 k/mm3 (150-375); Red Blood Count 2.47 M/mm3 (4.2-5.4); Red Cell Distribution Width 15.8 % (11.5-14.5); White Blood Count 21.4 K/mm3 (4.5-10.0)
[2021-05-19 05:28] LABS: Alanine Aminotransferase 14 U/L (4-35); Albumin Level 2.6 g/dL (3.5-5.1); Alkaline Phosphatase 44 U/L (38-126); Anion Gap 4 mmol/L (8-16); Aspartate Amino Transferase 33 U/L (14-36); Bilirubin,Total 0.3 mg/dL (0.2-1.3); Blood Urea Nitrogen 11 mg/dL (7-17); Calcium 6.4 mg/dL (8.4-10.2); Carbon Dioxide 27 mmol/L (22-30); Chloride 108 mmol/L (98-107); Estimated CRCL calculation 70 ml/min; Estimated Glomerular Filt Rate > 60; Glucose 86 mg/dL (65-110); Magnesium 1.5 mg/dL (1.6-2.3); Potassium 3.4 mmol/L (3.4-5.0); Sodium 139 mmol/L (137-145)
[2021-05-19] MEDS: HYDROcodone/acetaminophen (*CRX) 5-325 MG TABLET 1 TAB PO ×3 (06:46→23:43)
[2021-05-19] MEDS: MAGNESIUM OXIDE 400 MG TABLET PO (09:31)
[2021-05-19] MEDS: ENOXAPARIN 40 MG/0.4 ML SYRINGE SUB-Q (09:31)
[2021-05-19] MEDS: MAGNESIUM SULF 2 GM/WATER 50ML 2 GM/50 ML BAG IVPB (09:31)
[2021-05-19] MEDS: FIDAXOMICIN 200 MG TABLET PO ×2 (09:31→19:50)
[2021-05-19] MEDS: methylPREDNISolone SOD SUCC 40 MG VIAL IV PUSH (09:31)
[2021-05-19] MEDS: POTASSIUM CHLORIDE 20 MEQ TABLET 40 MEQ PO (09:31)
[2021-05-19] MEDS: LIPASE/AMYLASE/PROTEASE 12,000 UNITS CAP 2 CAP PO ×3 (09:31→17:37)
[2021-05-19] MEDS: SODIUM CHLORIDE 0.9% IV 1,000 ML 75 ML IV CONT (12:36)
[2021-05-19] MEDS: ACETAMINOPHEN 325 MG TABLET 650 MG PO ×2 (12:36→21:46)
[2021-05-19] MEDS: PANTOPRAZOLE 40 MG TABLET PO (12:37)
[2021-05-20] VITALS (22 sets, daily range): BP systolic 141–194; BP diastolic 78–102; PULSE 76–106; RESP 16–20; TEMP 36.2–36.8; O2SAT 94–99; BMI 34.2
[2021-05-20] MEDS: IPRATROPIUM BR 0.02% INH SOLN 0.5 MG/2.5 ML VIAL INHALATION ×5 (01:34→21:25)
[2021-05-20] MEDS: SODIUM CHLORIDE 0.9% IV 1,000 ML 75 ML IV CONT ×2 (05:01→18:59)
[2021-05-20] MEDS: CENTRAL LINE FLUSH 10 ML IV PUSH ×3 (05:01→21:06)
[2021-05-20 05:22] LABS: Hematocrit 25.1 % (37.0-47.0); Hemoglobin 7.5 g/dL (12.0-15.0); Mean Corpuscular HGB Conc 29.9 g/dl (32-36); Mean Corpuscular Hemoglobin 28.6 pg (26-34); Mean Corpuscular Volume 95.8 fl (80-100); Mean Platelet Volume 10.4 fl (7.4-10.4); Platelet Count Result 372 k/mm3 (150-375); Red Blood Count 2.62 M/mm3 (4.2-5.4); Red Cell Distribution Width 16.1 % (11.5-14.5); White Blood Count 21.1 K/mm3 (4.5-10.0)
[2021-05-20 05:32] LABS: Anion Gap 3 mmol/L (8-16); Blood Urea Nitrogen 9 mg/dL (7-17); Calcium 6.6 mg/dL (8.4-10.2); Carbon Dioxide 31 mmol/L (22-30); Chloride 101 mmol/L (98-107); Estimated CRCL calculation 82 ml/min; Estimated Glomerular Filt Rate > 60; Glucose 106 mg/dL (65-110); Magnesium 1.9 mg/dL (1.6-2.3); Sodium 135 mmol/L (137-145)
[2021-05-20] MEDS: MAGNESIUM OXIDE 400 MG TABLET PO (09:23)
[2021-05-20] MEDS: PANTOPRAZOLE 40 MG TABLET PO (09:23)
[2021-05-20] MEDS: FIDAXOMICIN 200 MG TABLET PO ×2 (09:23→21:05)
[2021-05-20] MEDS: ENOXAPARIN 40 MG/0.4 ML SYRINGE SUB-Q (09:24)
[2021-05-20] MEDS: methylPREDNISolone SOD SUCC 40 MG VIAL IV PUSH (09:24)
[2021-05-20] MEDS: HYDROcodone/acetaminophen (*CRX) 5-325 MG TABLET 1 TAB PO ×2 (09:24→16:02)
[2021-05-20] MEDS: LIPASE/AMYLASE/PROTEASE 12,000 UNITS CAP 2 CAP PO ×3 (09:24→18:01)
[2021-05-20] MEDS: ONDANSETRON INJ 4 MG/2 ML VIAL IV PUSH ×2 (09:31→18:02)
[2021-05-20] MEDS: hydrALAZINE HCL 20 MG/ML VIAL 10 MG IV PUSH (12:16)
[2021-05-20] MEDS: POTASSIUM CHLORIDE 20 MEQ TABLET 40 MEQ PO (12:16)
--- NOTE | 2021-05-20 16:10 | PM.IMPN ---
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 difficile colitis: Code(s): A04.72 - Enterocolitis due to Clostridium difficile, not specified as recurrent Status: Acute Assessment and Plan: Improving symptomatically, only 1 bowel movement today per patient Tolerating diet, denies abdominal pain or diarrhea Infectious disease on board, recommending stop antibiotics other than fidaxomicin, to complete on May 24 Consider stool transplant if relapse Curtail steroids as much as possible given ongoing colitis 05/19/2105/18 patient is 76-year-old female with relapsed a C diff initially patient was started on Flagyl and oral vancomycin patient was seen by ID recommended stop those to antibiotic and started the patient fidaxomicin for total of 10 days to complete on 05/24, patient has a rectal tube and having loose BM, patient does complaint abdominal pain feels nausea, will continue to will continue monitor electrolytes and supplement as needed. 05/19 patient with C diff colitis on fidaxomicin for total of 10 days to complete on 05/24, today 03/11, patient has a rectal tube continue to have loose BM and abdominal pain and elevated white count, will continue to monitor and further recommendation to follow. (6) Sepsis: Code(s): A41.9 - Sepsis, unspecified organism Status: Acute Assessment and Plan: Continue IV fluid hydration, no longer on pressor support Hemodynamically stable, continue to monitor (7) Altered mental status: Qualifiers: Altered mental status type: disorientation Qualified Code(s): R41.0 - Disorientation, unspecified Code(s): R41.82 - Altered mental status, unspecified Status: Acute (8) Infiltrate of lung present on chest x-ray: Code(s): R91.8 - Other nonspecific abnormal finding of lung field Status: Acute (9) Community acquired pneumonia: Qualifiers: Laterality: unspecified laterality Qualified Code(s): J18.9 - Pneumonia, unspecified organism Code(s): J18.9 - Pneumonia, unspecified organism Status: Acute (10) Urinary tract infection: Qualifiers: Hematuria presence: without hematuria Urinary tract infection type: acute cystitis Qualified Code(s): N30.00 - Acute cystitis without hematuria Code(s): N39.0 - Urinary tract infection, site not specified Status: Acute (11) CHF (congestive heart failure): Code(s): I50.9 - Heart failure, unspecified Status: Acute (12) COPD (chronic obstructive pulmonary disease): Qualifiers: COPD type: unspecified COPD Qualified Code(s): J44.9 - Chronic obstructive pulmonary disease, unspecified Code(s): J44.9 - Chronic obstructive pulmonary disease, unspecified Status: Chronic Assessment and Plan: Continue breathing treatments Additional Plan DVT prophylaxis -Lovenox Code Status - Full Code Patient will be re-evaluated by speech. Up in chair. Incentive spirometry, PT OT 76-year-old female admitted to the hospital in septic shock requiring Levophed. Source considered to be C diff. versus pneumonia patient was placed on p.o. vancomycin, Rocephin, azithromycin. Patient also noted to have altered me
--- NOTE | 2021-05-20 16:27 | PM.IMPN ---
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 difficile colitis: Code(s): A04.72 - Enterocolitis due to Clostridium difficile, not specified as recurrent Status: Acute Assessment and Plan: Improving symptomatically, only 1 bowel movement today per patient Tolerating diet, denies abdominal pain or diarrhea Infectious disease on board, recommending stop antibiotics other than fidaxomicin, to complete on May 24 Consider stool transplant if relapse Curtail steroids as much as possible given ongoing colitis 05/20/21 16:27 05/18 patient is 76-year-old female with relapsed a C diff initially patient was started on Flagyl and oral vancomycin patient was seen by ID recommended stop those to antibiotic and started the patient fidaxomicin for total of 10 days to complete on 05/24, patient has a rectal tube and having loose BM, patient does complaint abdominal pain feels nausea, will continue to will continue monitor electrolytes and supplement as needed. 05/19 patient with C diff colitis on fidaxomicin for total of 10 days to complete on 05/24, today 03/11, patient has a rectal tube continue to have loose BM and abdominal pain and elevated white count, will continue to monitor and further recommendation to follow. 05/20 patient with C diff colitis on fidaxomicin for total of 10 days to complete on 05/24, today 04/10, patient has a rectal tube continue to have loose BM and abdominal pain and elevated white count, today patient blood pressure is climbing up most likely secondary to pain and station being hospital as well as rectal tube, patient does not have a history hypertension, will add Norvasc 5 mg q.day and hydralazine ER will continue to monitor. (6) Sepsis: Code(s): A41.9 - Sepsis, unspecified organism Status: Acute Assessment and Plan: Continue IV fluid hydration, no longer on pressor support Hemodynamically stable, continue to monitor (7) Altered mental status: Qualifiers: Altered mental status type: disorientation Qualified Code(s): R41.0 - Disorientation, unspecified Code(s): R41.82 - Altered mental status, unspecified Status: Acute (8) Infiltrate of lung present on chest x-ray: Code(s): R91.8 - Other nonspecific abnormal finding of lung field Status: Acute (9) Community acquired pneumonia: Qualifiers: Laterality: unspecified laterality Qualified Code(s): J18.9 - Pneumonia, unspecified organism Code(s): J18.9 - Pneumonia, unspecified organism Status: Acute (10) Urinary tract infection: Qualifiers: Hematuria presence: without hematuria Urinary tract infection type: acute cystitis Qualified Code(s): N30.00 - Acute cystitis without hematuria Code(s): N39.0 - Urinary tract infection, site not specified Status: Acute (11) CHF (congestive heart failure): Code(s): I50.9 - Heart failure, unspecified Status: Acute (12) COPD (chronic obstructive pulmonary disease): Qualifiers: COPD type: unspecified COPD Qualified Code(s): J44.9 - Chronic obstructive pulmonary disease, unspecified Code(s): J44.9 - Chronic obstructive pulmonary disease, unspecified Status: Ch
[2021-05-20] MEDS: PREGABALIN (*CRX) 75 MG CAPSULE 150 MG PO (18:01)
[2021-05-20] MEDS: traMADol HCL (*CRX) 50 MG TABLET PO (19:25)
[2021-05-20] MEDS: traZODone HCL 50 MG TABLET 300 MG PO (21:04)
[2021-05-20] MEDS: MELATONIN 5 MG TABLET PO (21:05)
[2021-05-20] MEDS: AZELASTINE HCL NASAL 0.1% 137 MCG/SPR 30 ML BTL 1 SPRAY NASAL (21:05)
[2021-05-20] MEDS: BUDESONIDE RESPULE NEB 0.5 MG/2 ML AMP INHALATION (21:25)
[2021-05-21] VITALS (17 sets, daily range): BP systolic 114–153; BP diastolic 57–76; PULSE 79–98; RESP 16–20; TEMP 36.3–36.8; O2SAT 91–98
[2021-05-21] MEDS: CENTRAL LINE FLUSH 10 ML IV PUSH ×3 (05:37→20:24)
[2021-05-21] MEDS: CENTRAL LINE FLUSH 20 ML IV PUSH (05:37)
[2021-05-21 05:52] LABS: Hematocrit 24.2 % (37.0-47.0); Hemoglobin 7.2 g/dL (12.0-15.0); Mean Corpuscular HGB Conc 29.8 g/dl (32-36); Mean Corpuscular Hemoglobin 28.9 pg (26-34); Mean Corpuscular Volume 97.2 fl (80-100); Mean Platelet Volume 9.9 fl (7.4-10.4); Platelet Count Result 386 k/mm3 (150-375); Red Blood Count 2.49 M/mm3 (4.2-5.4); Red Cell Distribution Width 16.4 % (11.5-14.5); White Blood Count 17.6 K/mm3 (4.5-10.0)
[2021-05-21 08:26] LABS: Anion Gap 3 mmol/L (8-16); Blood Urea Nitrogen 7 mg/dL (7-17); Carbon Dioxide 32 mmol/L (22-30); Chloride 103 mmol/L (98-107); Estimated CRCL calculation 70 ml/min; Estimated Glomerular Filt Rate > 60; Glucose 98 mg/dL (65-110); Magnesium 1.7 mg/dL (1.6-2.3); Potassium 3.4 mmol/L (3.4-5.0); Sodium 138 mmol/L (137-145)
[2021-05-21] MEDS: LIPASE/AMYLASE/PROTEASE 12,000 UNITS CAP 2 CAP PO ×3 (08:50→16:53)
[2021-05-21] MEDS: amLODIPine BESYLATE 5 MG TABLET PO (08:51)
[2021-05-21] MEDS: FOLIC ACID 1 MG TABLET PO (08:51)
[2021-05-21] MEDS: BENZONATATE 100 MG CAPSULE 200 MG PO ×2 (08:51→20:24)
[2021-05-21] MEDS: FERROUS SULFATE 324 MG TABLET PO (08:52)
[2021-05-21] MEDS: ASPIRIN 81 MG CHEWABLE TABLET PO (08:52)
[2021-05-21] MEDS: ENOXAPARIN 40 MG/0.4 ML SYRINGE SUB-Q (08:52)
[2021-05-21] MEDS: LORATADINE 10 MG TABLET PO (08:52)
[2021-05-21] MEDS: FIDAXOMICIN 200 MG TABLET PO ×2 (08:52→20:24)
[2021-05-21] MEDS: PANTOPRAZOLE 40 MG TABLET PO (08:52)
[2021-05-21] MEDS: ATORVASTATIN 40 MG TABLET 80 MG PO (08:52)
[2021-05-21] MEDS: DULoxetine HCL 60 MG CAPSULE.DR PO (08:52)
[2021-05-21] MEDS: SODIUM CHLORIDE 0.9% IV 1,000 ML 75 ML IV CONT ×2 (08:53→22:51)
[2021-05-21] MEDS: MAGNESIUM OXIDE 400 MG TABLET PO (08:53)
[2021-05-21] MEDS: AZELASTINE HCL NASAL 0.1% 137 MCG/SPR 30 ML BTL 1 SPRAY NASAL ×2 (08:54→20:24)
[2021-05-21] MEDS: methylPREDNISolone SOD SUCC 40 MG VIAL IV PUSH (08:54)
[2021-05-21] MEDS: PREGABALIN (*CRX) 75 MG CAPSULE 150 MG PO ×2 (09:09→16:53)
[2021-05-21] MEDS: HYDROcodone/acetaminophen (*CRX) 5-325 MG TABLET 1 TAB PO (12:01)
[2021-05-21] MEDS: IPRATROPIUM BR 0.02% INH SOLN 0.5 MG/2.5 ML VIAL INHALATION (14:42)
--- NOTE | 2021-05-21 17:39 | PM.IMPN ---
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 difficile colitis: Code(s): A04.72 - Enterocolitis due to Clostridium difficile, not specified as recurrent Status: Acute Assessment and Plan: Improving symptomatically, only 1 bowel movement today per patient Tolerating diet, denies abdominal pain or diarrhea Infectious disease on board, recommending stop antibiotics other than fidaxomicin, to complete on May 24 Consider stool transplant if relapse Curtail steroids as much as possible given ongoing colitis 05/21/21 17:39 05/18 patient is 76-year-old female with relapsed a C diff initially patient was started on Flagyl and oral vancomycin patient was seen by ID recommended stop those to antibiotic and started the patient fidaxomicin for total of 10 days to complete on 05/24, patient has a rectal tube and having loose BM, patient does complaint abdominal pain feels nausea, will continue to will continue monitor electrolytes and supplement as needed. 05/19 patient with C diff colitis on fidaxomicin for total of 10 days to complete on 05/24, today 03/11, patient has a rectal tube continue to have loose BM and abdominal pain and elevated white count, will continue to monitor and further recommendation to follow. 05/20 patient with C diff colitis on fidaxomicin for total of 10 days to complete on 05/24, today 04/10, patient has a rectal tube continue to have loose BM and abdominal pain and elevated white count, today patient blood pressure is climbing up most likely secondary to pain and station being hospital as well as rectal tube, patient does not have a history hypertension, will add Norvasc 5 mg q.day and hydralazine ER will continue to monitor. 05/21 patient with C diff colitis on fidaxomicin for total of 10 days to complete on 05/24, today 05/11, patient has a rectal tube continue to have loose BM however volume is decreasing, and abdominal pain is improving and white counts are tending down, Since admission patient will patient remained high Norvasc was added and her pressure is improving, will continue to monitor and further recommendation to follow. (6) Sepsis: Code(s): A41.9 - Sepsis, unspecified organism Status: Acute Assessment and Plan: Continue IV fluid hydration, no longer on pressor support Hemodynamically stable, continue to monitor (7) Altered mental status: Qualifiers: Altered mental status type: disorientation Qualified Code(s): R41.0 - Disorientation, unspecified Code(s): R41.82 - Altered mental status, unspecified Status: Acute (8) Infiltrate of lung present on chest x-ray: Code(s): R91.8 - Other nonspecific abnormal finding of lung field Status: Acute (9) Community acquired pneumonia: Qualifiers: Laterality: unspecified laterality Qualified Code(s): J18.9 - Pneumonia, unspecified organism Code(s): J18.9 - Pneumonia, unspecified organism Status: Acute (10) Urinary tract infection: Qualifiers: Hematuria presence: without hematuria Urinary tract infection type: acute cystitis Qualified Code(s): N30.00 - Acute cystitis without hematuria Code(s): N39.0 - Urinary tract infection, site not spe
[2021-05-21] MEDS: traZODone HCL 50 MG TABLET 300 MG PO (20:24)
[2021-05-21] MEDS: MELATONIN 5 MG TABLET PO (20:24)
[2021-05-21 21:05] LABS: Glucose Point of Care 130 mg/dl (65-105)
[2021-05-21] MEDS: POTASSIUM CHLORIDE 20 MEQ TABLET 40 MEQ PO (21:46)
[2021-05-22] VITALS (17 sets, daily range): BP systolic 107–143; BP diastolic 55–78; PULSE 86–107; RESP 16–20; TEMP 36.6–36.9; O2SAT 91–99
[2021-05-22] MEDS: BUDESONIDE RESPULE NEB 0.5 MG/2 ML AMP INHALATION ×3 (03:07→20:07)
[2021-05-22] MEDS: IPRATROPIUM BR 0.02% INH SOLN 0.5 MG/2.5 ML VIAL INHALATION ×5 (03:08→20:07)
--- NOTE | 2021-05-22 03:09 | PCRCNOTE ---
Window of time for administration has passed. See next scheduled administration.
[2021-05-22] MEDS: HYDROcodone/acetaminophen (*CRX) 5-325 MG TABLET 1 TAB PO ×3 (03:52→20:21)
[2021-05-22] MEDS: CENTRAL LINE FLUSH 10 ML IV PUSH ×2 (05:14→14:00)
[2021-05-22 06:15] LABS: Hematocrit 24.7 % (37.0-47.0); Mean Corpuscular HGB Conc 28.3 g/dl (32-36); Mean Corpuscular Hemoglobin 28.7 pg (26-34); Mean Corpuscular Volume 101.2 fl (80-100); Mean Platelet Volume 10.5 fl (7.4-10.4); Platelet Count Result 369 k/mm3 (150-375); Red Blood Count 2.44 M/mm3 (4.2-5.4); Red Cell Distribution Width 16.6 % (11.5-14.5); White Blood Count 21.6 K/mm3 (4.5-10.0)
[2021-05-22 06:37] LABS: Anion Gap 1 mmol/L (8-16); Blood Urea Nitrogen 5 mg/dL (7-17); Calcium 6.8 mg/dL (8.4-10.2); Carbon Dioxide 35 mmol/L (22-30); Chloride 103 mmol/L (98-107); Estimated CRCL calculation 70 ml/min; Estimated Glomerular Filt Rate > 60; Glucose 129 mg/dL (65-110); Magnesium 1.4 mg/dL (1.6-2.3); Potassium 3.6 mmol/L (3.4-5.0); Sodium 139 mmol/L (137-145)
[2021-05-22] MEDS: MAGNESIUM SULF 2 GM/WATER 50ML 2 GM/50 ML BAG IVPB (09:19)
[2021-05-22] MEDS: LIPASE/AMYLASE/PROTEASE 12,000 UNITS CAP 2 CAP PO ×3 (09:20→16:55)
[2021-05-22] MEDS: amLODIPine BESYLATE 5 MG TABLET PO (09:20)
[2021-05-22] MEDS: FERROUS SULFATE 324 MG TABLET PO (09:21)
[2021-05-22] MEDS: PANTOPRAZOLE 40 MG TABLET PO (09:21)
[2021-05-22] MEDS: DULoxetine HCL 60 MG CAPSULE.DR PO (09:21)
[2021-05-22] MEDS: MAGNESIUM OXIDE 400 MG TABLET PO (09:21)
[2021-05-22] MEDS: ATORVASTATIN 40 MG TABLET 80 MG PO (09:21)
[2021-05-22] MEDS: AZELASTINE HCL NASAL 0.1% 137 MCG/SPR 30 ML BTL 1 SPRAY NASAL ×2 (09:21→20:21)
[2021-05-22] MEDS: FOLIC ACID 1 MG TABLET PO (09:21)
[2021-05-22] MEDS: FIDAXOMICIN 200 MG TABLET PO ×2 (09:21→20:21)
[2021-05-22] MEDS: LORATADINE 10 MG TABLET PO (09:21)
[2021-05-22] MEDS: ACETAMINOPHEN 325 MG TABLET 650 MG PO (09:22)
[2021-05-22] MEDS: PREGABALIN (*CRX) 75 MG CAPSULE 150 MG PO ×2 (09:22→16:55)
[2021-05-22] MEDS: methylPREDNISolone SOD SUCC 40 MG VIAL IV PUSH (09:23)
[2021-05-22] MEDS: ENOXAPARIN 40 MG/0.4 ML SYRINGE SUB-Q (09:23)
[2021-05-22] MEDS: ASPIRIN 81 MG CHEWABLE TABLET PO (09:52)
--- NOTE | 2021-05-22 10:03 | PM.IMPN ---
Progress Note: A&P Assessment and Plan (1) C. difficile colitis: Code(s): A04.72 - Enterocolitis due to Clostridium difficile, not specified as recurrent Status: Acute Assessment and Plan: 05/23 rectal tube output 200 ml overnight Continue fidaxomicin with last day of 10-day scourse 05/24 Clinically improving. (2) Exocrine pancreatic insufficiency: Code(s): K86.81 - Exocrine pancreatic insufficiency Status: Chronic (3) Metabolic encephalopathy: Code(s): G93.41 - Metabolic encephalopathy Status: Acute Assessment and Plan: Mentation improved, conversation today, extensive, and coherent Likely at mentation baseline (4) Acute on chronic respiratory failure with hypoxia and hypercapnia: Code(s): J96.21 - Acute and chronic respiratory failure with hypoxia; J96.22 - Acute and chronic respiratory failure with hypercapnia Status: Acute (5) Acute and chronic respiratory failure with hypercapnia: Code(s): J96.22 - Acute and chronic respiratory failure with hypercapnia Status: Acute (6) Sepsis: Qualifiers: Sepsis type: sepsis due to unspecified organism Sepsis acute organ dysfunction status: with acute organ dysfunction Severe sepsis acute organ dysfunction type: acute renal failure Acute renal failure type: unspecified Severe sepsis shock status: without septic shock Qualified Code(s): A41.9 - Sepsis, unspecified organism; R65.20 - Severe sepsis without septic shock; N17.9 - Acute kidney failure, unspecified Code(s): A41.9 - Sepsis, unspecified organism Status: Acute Assessment and Plan: Continue IV fluid hydration, no longer on pressor support Hemodynamically stable, continue to monitor (7) Altered mental status: Qualifiers: Altered mental status type: disorientation Qualified Code(s): R41.0 - Disorientation, unspecified Code(s): R41.82 - Altered mental status, unspecified Status: Acute (8) Infiltrate of lung present on chest x-ray: Code(s): R91.8 - Other nonspecific abnormal finding of lung field Status: Acute (9) Community acquired pneumonia: Qualifiers: Laterality: unspecified laterality Qualified Code(s): J18.9 - Pneumonia, unspecified organism Code(s): J18.9 - Pneumonia, unspecified organism Status: Acute (10) Urinary tract infection: Qualifiers: Hematuria presence: without hematuria Urinary tract infection type: acute cystitis Qualified Code(s): N30.00 - Acute cystitis without hematuria Code(s): N39.0 - Urinary tract infection, site not specified Status: Acute (11) CHF (congestive heart failure): Qualifiers: Heart failure type: unspecified Heart failure chronicity: chronic Qualified Code(s): I50.9 - Heart failure, unspecified Code(s): I50.9 - Heart failure, unspecified Status: Acute (12) COPD (chronic obstructive pulmonary disease): Qualifiers: COPD type: unspecified COPD Qualified Code(s): J44.9 - Chronic obstructive pulmonary disease, unspecified Code(s): J44.9 - Chronic obstructive pulmonary disease, unspecified Status: Chronic Assessment and Plan: Continue breathing treatments Subjective Date/time seen: 05/22/21 10:03 Interval history: 05/22 visit: Mild stomach cramps after eating. Ate eggs, oatmeal, juice for breakfast. No other c/o. Review of Systems Review of Systems: All systems reviewed & are unremarkable except as noted in HPI and below Exam Narrative: HEENT: PERRL, sclerae nonicteric, pharyngeal mucosa pink and intact NECK: No JVD, adenopathy, or thyromegaly CHEST: Clear to auscultation. Normal effort. HEART: NL S1/S2, regular, no murmur ABDOMEN: BS+, soft, nontender, no mass, no bruits EXTREMITIES: No cyanosis, edema, or clubbing NEUROLOGIC: CN intact and symmetric to inspection. MUSCULOSKELETAL: Tone and strength symmetric. PSYCH: Alert
[2021-05-22] MEDS: SODIUM CHLORIDE 0.9% IV 1,000 ML 75 ML IV CONT (12:35)
[2021-05-22] MEDS: MELATONIN 5 MG TABLET PO (20:21)
[2021-05-22] MEDS: traZODone HCL 50 MG TABLET 300 MG PO (20:21)
[2021-05-23] VITALS (15 sets, daily range): BP systolic 128–155; BP diastolic 63–74; PULSE 70–92; RESP 14–20; TEMP 36.6–36.8; O2SAT 94–98
[2021-05-23] MEDS: IPRATROPIUM BR 0.02% INH SOLN 0.5 MG/2.5 ML VIAL INHALATION ×4 (01:56→21:11)
[2021-05-23] MEDS: SODIUM CHLORIDE 0.9% IV 1,000 ML 75 ML IV CONT (03:53)
[2021-05-23] MEDS: HYDROcodone/acetaminophen (*CRX) 5-325 MG TABLET 1 TAB PO ×3 (06:05→18:24)
[2021-05-23 06:13] LABS: Hematocrit 24.8 % (37.0-47.0); Hemoglobin 7.1 g/dL (12.0-15.0); Mean Corpuscular HGB Conc 28.6 g/dl (32-36); Mean Corpuscular Hemoglobin 28.5 pg (26-34); Mean Corpuscular Volume 99.6 fl (80-100); Mean Platelet Volume 10.6 fl (7.4-10.4); Platelet Count Result 326 k/mm3 (150-375); Red Blood Count 2.49 M/mm3 (4.2-5.4); Red Cell Distribution Width 16.7 % (11.5-14.5); White Blood Count 22.3 K/mm3 (4.5-10.0)
[2021-05-23 06:17] LABS: Anion Gap 1 mmol/L (8-16); Blood Urea Nitrogen 5 mg/dL (7-17); Calcium 6.8 mg/dL (8.4-10.2); Carbon Dioxide 38 mmol/L (22-30); Chloride 100 mmol/L (98-107); Estimated CRCL calculation 70 ml/min; Estimated Glomerular Filt Rate > 60; Glucose 105 mg/dL (65-110); Magnesium 1.6 mg/dL (1.6-2.3); Potassium 3.7 mmol/L (3.4-5.0); Sodium 139 mmol/L (137-145)
[2021-05-23] MEDS: BUDESONIDE RESPULE NEB 0.5 MG/2 ML AMP INHALATION ×2 (08:10→21:11)
[2021-05-23] MEDS: PREGABALIN (*CRX) 75 MG CAPSULE 150 MG PO ×2 (09:43→17:10)
[2021-05-23] MEDS: LORATADINE 10 MG TABLET PO (09:43)
[2021-05-23] MEDS: FOLIC ACID 1 MG TABLET PO (09:43)
[2021-05-23] MEDS: amLODIPine BESYLATE 5 MG TABLET PO (09:43)
[2021-05-23] MEDS: ATORVASTATIN 40 MG TABLET 80 MG PO (09:43)
[2021-05-23] MEDS: FERROUS SULFATE 324 MG TABLET PO (09:43)
[2021-05-23] MEDS: DULoxetine HCL 60 MG CAPSULE.DR PO (09:43)
[2021-05-23] MEDS: ASPIRIN 81 MG CHEWABLE TABLET PO (09:43)
[2021-05-23] MEDS: LIPASE/AMYLASE/PROTEASE 12,000 UNITS CAP 2 CAP PO ×3 (09:43→17:10)
[2021-05-23] MEDS: PANTOPRAZOLE 40 MG TABLET PO (09:43)
[2021-05-23] MEDS: FIDAXOMICIN 200 MG TABLET PO ×2 (09:43→21:44)
[2021-05-23] MEDS: methylPREDNISolone SOD SUCC 40 MG VIAL IV PUSH (09:44)
[2021-05-23] MEDS: AZELASTINE HCL NASAL 0.1% 137 MCG/SPR 30 ML BTL 1 SPRAY NASAL ×2 (09:44→21:43)
[2021-05-23] MEDS: MAGNESIUM OXIDE 400 MG TABLET PO (09:44)
[2021-05-23] MEDS: MAGNESIUM SULF 2 GM/WATER 50ML 2 GM/50 ML BAG IVPB (09:44)
[2021-05-23] MEDS: ENOXAPARIN 40 MG/0.4 ML SYRINGE SUB-Q (09:44)
--- NOTE | 2021-05-23 10:04 | PM.IMPN ---
Progress Note: A&P Assessment and Plan (1) C. difficile colitis: Code(s): A04.72 - Enterocolitis due to Clostridium difficile, not specified as recurrent Status: Acute Assessment and Plan: 05/22 rectal tube output 200 ml overnight 05/23 rectal tube output 300 ml during day, negligible overnight 05/23 d/c rectal tube 05/23 added cholestyramine Continue fidaxomicin with last day of 10-day course 05/24 Clinically improving. (2) Exocrine pancreatic insufficiency: Code(s): K86.81 - Exocrine pancreatic insufficiency Status: Chronic Assessment and Plan: Continue [id number]-nbxpkhc caps with meals (3) Metabolic encephalopathy: Code(s): G93.41 - Metabolic encephalopathy Status: Acute Assessment and Plan: Improved Likely at baseline (4) Acute on chronic respiratory failure with hypoxia and hypercapnia: Code(s): J96.21 - Acute and chronic respiratory failure with hypoxia; J96.22 - Acute and chronic respiratory failure with hypercapnia Status: Acute Assessment and Plan: Contineu nasal cannula oxygen, now at baseline (5) Sepsis: Qualifiers: Acute renal failure type: unspecified Sepsis acute organ dysfunction status: with acute organ dysfunction Sepsis type: sepsis due to unspecified organism Severe sepsis acute organ dysfunction type: acute renal failure Severe sepsis shock status: without septic shock Qualified Code(s): A41.9 - Sepsis, unspecified organism; R65.20 - Severe sepsis without septic shock; N17.9 - Acute kidney failure, unspecified Code(s): A41.9 - Sepsis, unspecified organism Status: Acute Assessment and Plan: Continue IV fluid hydration, no longer on pressor support Hemodynamically stable, continue to monitor (6) Hypomagnesemia: Code(s): E83.42 - Hypomagnesemia Status: Acute Assessment and Plan: 05/23 1.6, 2 gm iv, f/u lab (7) Community acquired pneumonia: Qualifiers: Laterality: unspecified laterality Qualified Code(s): J18.9 - Pneumonia, unspecified organism Code(s): J18.9 - Pneumonia, unspecified organism Status: Acute Assessment and Plan: D/c methylprednisolone Completed azithromycin and ceftriaxone (8) Urinary tract infection: Qualifiers: Hematuria presence: without hematuria Urinary tract infection type: acute cystitis Qualified Code(s): N30.00 - Acute cystitis without hematuria Code(s): N39.0 - Urinary tract infection, site not specified Status: Acute (9) CHF (congestive heart failure): Qualifiers: Heart failure type: unspecified Heart failure chronicity: chronic Qualified Code(s): I50.9 - Heart failure, unspecified Code(s): I50.9 - Heart failure, unspecified Status: Acute (10) COPD (chronic obstructive pulmonary disease): Qualifiers: COPD type: unspecified COPD Qualified Code(s): J44.9 - Chronic obstructive pulmonary disease, unspecified Code(s): J44.9 - Chronic obstructive pulmonary disease, unspecified Status: Chronic Assessment and Plan: Continue breathing treatments (11) Altered mental status: Qualifiers: Altered mental status type: disorientation Qualified Code(s): R41.0 - Disorientation, unspecified Code(s): R41.82 - Altered mental status, unspecified Status: Acute Subjective Date/time seen: 05/23/21 10:04 Interval history: 05/23 visit: Mild stomach cramps after eating. Small amount of blood around rectal tube this AM. Ate well. Denied cp, sob, gu issues. Denied other pain. Wants rectal tube out. Wants to go home. Review of Systems Review of Systems: All systems reviewed & are unremarkable except as noted in HPI and below Exam Narrative: HEENT: PERRL, sclerae nonicteric, pharyngeal mucosa pink and intact NECK: No JVD, adenopathy, or thyromegaly CHEST: Clear to auscultation. Normal effort. HEART: NL S1/S2,
[2021-05-23] MEDS: CHOLESTYRAMINE LIGHT 4 GM POWD.PACK PO (17:10)
[2021-05-23] MEDS: traZODone HCL 50 MG TABLET 300 MG PO (21:43)
[2021-05-23] MEDS: MELATONIN 5 MG TABLET PO (21:44)
[2021-05-24] VITALS (14 sets, daily range): BP systolic 118–167; BP diastolic 56–85; PULSE 74–95; RESP 14–20; TEMP 36.2–37; O2SAT 95–99
[2021-05-24] MEDS: IPRATROPIUM BR 0.02% INH SOLN 0.5 MG/2.5 ML VIAL INHALATION ×3 (03:15→19:41)
[2021-05-24] MEDS: HYDROcodone/acetaminophen (*CRX) 5-325 MG TABLET 1 TAB PO ×3 (03:18→17:32)
[2021-05-24 05:59] LABS: Hematocrit 23.5 % (37.0-47.0); Mean Corpuscular HGB Conc 28.9 g/dl (32-36); Mean Corpuscular Hemoglobin 28.1 pg (26-34); Mean Corpuscular Volume 97.1 fl (80-100); Mean Platelet Volume 10.5 fl (7.4-10.4); Platelet Count Result 312 k/mm3 (150-375); Red Blood Count 2.42 M/mm3 (4.2-5.4); White Blood Count 17.3 K/mm3 (4.5-10.0)
[2021-05-24 06:32] LABS: Blood Urea Nitrogen 6 mg/dL (7-17); Calcium 7.2 mg/dL (8.4-10.2); Carbon Dioxide > 40 mmol/L (22-30); Chloride 94 mmol/L (98-107); Estimated CRCL calculation 82 ml/min; Estimated Glomerular Filt Rate > 60; Glucose 104 mg/dL (65-110); Magnesium 1.7 mg/dL (1.6-2.3); Potassium 3.6 mmol/L (3.4-5.0); Sodium 137 mmol/L (137-145)
[2021-05-24 06:34] LABS: Hemoglobin 6.8 g/dL (12.0-15.0)
[2021-05-24 08:03] LABS: Glucose Point of Care 110 mg/dl (65-105)
[2021-05-24] MEDS: LIPASE/AMYLASE/PROTEASE 12,000 UNITS CAP 2 CAP PO ×3 (09:35→17:33)
[2021-05-24] MEDS: BENZONATATE 100 MG CAPSULE 200 MG PO (09:35)
[2021-05-24] MEDS: CHOLESTYRAMINE LIGHT 4 GM POWD.PACK PO ×2 (09:43→17:33)
[2021-05-24] MEDS: amLODIPine BESYLATE 5 MG TABLET PO (09:43)
[2021-05-24] MEDS: ENOXAPARIN 40 MG/0.4 ML SYRINGE SUB-Q (09:43)
[2021-05-24] MEDS: FIDAXOMICIN 200 MG TABLET PO (09:43)
[2021-05-24] MEDS: ASPIRIN 81 MG CHEWABLE TABLET PO (09:43)
[2021-05-24] MEDS: PANTOPRAZOLE 40 MG TABLET PO (09:43)
[2021-05-24] MEDS: FERROUS SULFATE 324 MG TABLET PO (09:43)
[2021-05-24] MEDS: DULoxetine HCL 60 MG CAPSULE.DR PO (09:43)
[2021-05-24] MEDS: MECLIZINE HCL 12.5 MG TABLET PO (09:43)
[2021-05-24] MEDS: LORATADINE 10 MG TABLET PO (09:44)
[2021-05-24] MEDS: MAGNESIUM OXIDE 400 MG TABLET PO (09:44)
[2021-05-24] MEDS: ATORVASTATIN 40 MG TABLET 80 MG PO (09:44)
[2021-05-24] MEDS: AZELASTINE HCL NASAL 0.1% 137 MCG/SPR 30 ML BTL 1 SPRAY NASAL ×2 (09:44→20:48)
[2021-05-24] MEDS: FOLIC ACID 1 MG TABLET PO (09:44)
[2021-05-24] MEDS: PREGABALIN (*CRX) 75 MG CAPSULE 150 MG PO ×2 (09:49→17:32)
[2021-05-24 10:20] LABS: Hematocrit 24.4 % (37.0-47.0)
--- NOTE | 2021-05-24 11:04 | PM.IMPN ---
Progress Note: A&P Assessment and Plan (1) C. difficile colitis: Code(s): A04.72 - Enterocolitis due to Clostridium difficile, not specified as recurrent Status: Acute Assessment and Plan: 05/22 rectal tube output 200 ml overnight 05/23 rectal tube output 300 ml during day, negligible overnight 05/24 d/c rectal tube 05/23 added cholestyramine Completed fidaxomicin with last day of 10-day course 05/24 Clinically improving. Likely discharge 05/25 if labs stable (2) Hypomagnesemia: Code(s): E83.42 - Hypomagnesemia Status: Acute Assessment and Plan: 05/23 1.6, 2 gm iv, f/u lab 05/24 1.7, 2 gm iv (3) Anemia: Qualifiers: Anemia type: unspecified type Qualified Code(s): D64.9 - Anemia, unspecified Code(s): D64.9 - Anemia, unspecified Status: Acute Assessment and Plan: 05/24 hgb 6.8 in AM, 7.0 on repeat F/u lab, incl iron and B12 (4) Exocrine pancreatic insufficiency: Code(s): K86.81 - Exocrine pancreatic insufficiency Status: Chronic Assessment and Plan: Continue [id number]-tghhrmb caps with meals (5) Metabolic encephalopathy: Code(s): G93.41 - Metabolic encephalopathy Status: Acute Assessment and Plan: Improved Likely at baseline (6) Acute on chronic respiratory failure with hypoxia and hypercapnia: Code(s): J96.21 - Acute and chronic respiratory failure with hypoxia; J96.22 - Acute and chronic respiratory failure with hypercapnia Status: Acute Assessment and Plan: Continue nasal cannula oxygen, now at baseline (7) Community acquired pneumonia: Qualifiers: Laterality: unspecified laterality Qualified Code(s): J18.9 - Pneumonia, unspecified organism Code(s): J18.9 - Pneumonia, unspecified organism Status: Acute Assessment and Plan: D/c methylprednisolone 05/23 Completed azithromycin and ceftriaxone (8) Urinary tract infection: Qualifiers: Hematuria presence: without hematuria Urinary tract infection type: acute cystitis Qualified Code(s): N30.00 - Acute cystitis without hematuria Code(s): N39.0 - Urinary tract infection, site not specified Status: Acute Assessment and Plan: RESOLVED (9) CHF (congestive heart failure): Qualifiers: Heart failure chronicity: chronic Heart failure type: unspecified Qualified Code(s): I50.9 - Heart failure, unspecified Code(s): I50.9 - Heart failure, unspecified Status: Acute Assessment and Plan: Clinically stable (10) COPD (chronic obstructive pulmonary disease): Qualifiers: COPD type: unspecified COPD Qualified Code(s): J44.9 - Chronic obstructive pulmonary disease, unspecified Code(s): J44.9 - Chronic obstructive pulmonary disease, unspecified Status: Chronic Assessment and Plan: Continue bronchodilators (11) Sepsis: Qualifiers: Acute renal failure type: unspecified Sepsis acute organ dysfunction status: with acute organ dysfunction Sepsis type: sepsis due to unspecified organism Severe sepsis acute organ dysfunction type: acute renal failure Severe sepsis shock status: without septic shock Qualified Code(s): A41.9 - Sepsis, unspecified organism; R65.20 - Severe sepsis without septic shock; N17.9 - Acute kidney failure, unspecified Code(s): A41.9 - Sepsis, unspecified organism Status: Acute Assessment and Plan: RESOLVED Subjective Date/time seen: 05/24/21 11:04 Interval history: 05/24 visit: Mild stomach cramps after eating. Good appetite. No BM since rectal tube removed this AM. Denied cp, sob, gu issues. Denied other pain. Review of Systems Review of Systems: All systems reviewed & are unremarkable except as noted in HPI and below Exam Narrative: HEENT: PERRL, sclerae nonicteric, pharyngeal mucosa pink and intact NECK: No JVD, adenopathy, or thyromegaly CHEST: Clear to auscul
[2021-05-24] MEDS: MAGNESIUM SULF 2 GM/WATER 50ML 2 GM/50 ML BAG IVPB (12:05)
[2021-05-24] MEDS: POTASSIUM CHLORIDE 20 MEQ TABLET 40 MEQ PO (12:05)
--- NOTE | 2021-05-24 13:34 | PCRCNOTE ---
Window of time for administration has passed. See next scheduled administration.
[2021-05-24] MEDS: guaiFENesin 200 MG/10 ML UDC 100 MG PO (14:54)
[2021-05-24 16:26] LABS: Hematocrit 27.6 % (37.0-47.0); Hemoglobin 8.1 g/dL (12.0-15.0)
[2021-05-24 17:19] LABS: Iron 21 ug/dL (37-170)
[2021-05-24 17:33] LABS: Percent Iron Saturation 10 % (20-50)
[2021-05-24 18:15] LABS: Folic Acid 18.7 ng/mL (2.76->20)
[2021-05-24] MEDS: BUDESONIDE RESPULE NEB 0.5 MG/2 ML AMP INHALATION (19:41)
[2021-05-24] MEDS: MELATONIN 5 MG TABLET PO (20:48)
[2021-05-24] MEDS: traZODone HCL 50 MG TABLET 300 MG PO (20:49)
[2021-05-25] VITALS (10 sets, daily range): BP systolic 141–144; BP diastolic 58–75; PULSE 74–89; RESP 16–20; TEMP 36.8–37; O2SAT 95–98
[2021-05-25] MEDS: IPRATROPIUM BR 0.02% INH SOLN 0.5 MG/2.5 ML VIAL INHALATION ×2 (02:48→08:12)
[2021-05-25] MEDS: HYDROcodone/acetaminophen (*CRX) 5-325 MG TABLET 1 TAB PO ×2 (02:57→09:30)
[2021-05-25 06:52] LABS: Hematocrit 26.1 % (37.0-47.0); Hemoglobin 7.7 g/dL (12.0-15.0); Mean Corpuscular HGB Conc 29.5 g/dl (32-36); Mean Corpuscular Hemoglobin 28.3 pg (26-34); Mean Platelet Volume 10.8 fl (7.4-10.4); Platelet Count Result 308 k/mm3 (150-375); Red Blood Count 2.72 M/mm3 (4.2-5.4); Red Cell Distribution Width 17.1 % (11.5-14.5); White Blood Count 14.5 K/mm3 (4.5-10.0)
[2021-05-25 07:21] LABS: Blood Urea Nitrogen 7 mg/dL (7-17); Carbon Dioxide > 40 mmol/L (22-30); Chloride 89 mmol/L (98-107); Estimated CRCL calculation 82 ml/min; Estimated Glomerular Filt Rate > 60; Glucose 103 mg/dL (65-110); Magnesium 1.8 mg/dL (1.6-2.3); Potassium 3.9 mmol/L (3.4-5.0); Sodium 137 mmol/L (137-145)
[2021-05-25] MEDS: BUDESONIDE RESPULE NEB 0.5 MG/2 ML AMP INHALATION (08:12)
[2021-05-25] MEDS: FOLIC ACID 1 MG TABLET PO (09:31)
[2021-05-25] MEDS: ASPIRIN 81 MG CHEWABLE TABLET PO (09:31)
[2021-05-25] MEDS: PANTOPRAZOLE 40 MG TABLET PO (09:31)
[2021-05-25] MEDS: ATORVASTATIN 40 MG TABLET 80 MG PO (09:31)
[2021-05-25] MEDS: MECLIZINE HCL 12.5 MG TABLET PO (09:31)
[2021-05-25] MEDS: DULoxetine HCL 60 MG CAPSULE.DR PO (09:31)
[2021-05-25] MEDS: FERROUS SULFATE 324 MG TABLET PO (09:31)
[2021-05-25] MEDS: LIPASE/AMYLASE/PROTEASE 12,000 UNITS CAP 2 CAP PO (09:32)
[2021-05-25] MEDS: LORATADINE 10 MG TABLET PO (09:32)
[2021-05-25] MEDS: amLODIPine BESYLATE 5 MG TABLET PO (09:32)
[2021-05-25] MEDS: ENOXAPARIN 40 MG/0.4 ML SYRINGE SUB-Q (09:32)
[2021-05-25] MEDS: AZELASTINE HCL NASAL 0.1% 137 MCG/SPR 30 ML BTL 1 SPRAY NASAL (09:32)
[2021-05-25] MEDS: MAGNESIUM OXIDE 400 MG TABLET PO (09:32)
[2021-05-25] MEDS: CHOLESTYRAMINE LIGHT 4 GM POWD.PACK PO (09:32)
[2021-05-25] MEDS: PREGABALIN (*CRX) 75 MG CAPSULE 150 MG PO (09:35)
[2021-05-25 09:58] LABS: Alveolar/Arterial O2 Gradient 90.1 mmHg; Base Excess ABG 14.6 mEq/l (+/-2.0); Fractional Inspired Oxygen 32 %; HCO3 ABG 39.9 mEq/l (22.0-26.0); Oxygen Content ABG 12.5 %vol (16.0-22.0); Oxygen Saturation ABG 95.7 % (95.0-100.0); Oxyhemoglobin 92.9 % THb (90.0-100.0); PO2 ABG 74.9 mmHg (80.0-100.0); PO2 FiO2 Ratio Arterial Blood 2.34 %; Total Hemoglobin 9.5 g/dL (12.0-18.0); pH ABG 7.486 (7.350-7.450)
[2021-05-25 09:59] LABS: Device NASAL CANNULA; Modified Allen's Test Pass; Site Drawn RIGHT RADIAL
--- NOTE | 2021-05-25 10:33 | PCNFU ---
Nutrition Follow-Up Complete: Inadequate oral intake as related to respiratory failure as evidenced by decreased appetite. Goal: Adequate intake of at least 75% of meals/supplements Patient has met goal. No new goal. Pt current nutrition is Low Fat with ensure compact BID. Last recorded weight is 87.5 kg, no new weight to report. Bowel Motility:+BM reported 05/25 Labs Reviewed:Cr 0.5,Hct 26.1,Hgb 7.7 Meds Noted:[place],Norvasc,Lipitor,Atrovent,Mag-Ox,Folic Acid,Melatonin,Protonix Additional Notes: Nutrition follow up today. Patient is consuming greater than 75% of meals. Diet supplements: ensure compact BID providing an additional 220 kcals and 9 gms protien. Isolation for Cdiff. Agree with diet orders. No further nutritional interventions needed. Monitoring: Will continue to monitor for LOS.
--- NOTE | 2021-05-25 10:55 | PM.DS ---
DS: Admitting Diagnosis Admitting Diagnosis Septic shock DS: Discharge Diagnosis Discharge Diagnosis (1) C. difficile colitis: Code(s): A04.72 - Enterocolitis due to Clostridium difficile, not specified as recurrent Status: Acute Assessment and Plan: 05/22 rectal tube output 200 ml overnight 05/23 rectal tube output 300 ml during day, negligible overnight 05/24 d/c rectal tube 05/23 added cholestyramine Completed fidaxomicin with last day of 10-day course 05/24 Clinically improving. Discharge 05/25 (2) Hypomagnesemia: Code(s): E83.42 - Hypomagnesemia Status: Acute Assessment and Plan: 05/23 1.6, 2 gm iv, f/u lab 05/24 1.7, 2 gm iv (3) Anemia: Qualifiers: Anemia type: unspecified type Qualified Code(s): D64.9 - Anemia, unspecified Code(s): D64.9 - Anemia, unspecified Status: Acute Assessment and Plan: 05/24 hgb 6.8 in AM, 7.0 on repeat F/u lab, incl iron and B12 (4) Exocrine pancreatic insufficiency: Code(s): K86.81 - Exocrine pancreatic insufficiency Status: Chronic Assessment and Plan: Continue [id number]-[id number]-[id number] caps with meals (5) Metabolic encephalopathy: Code(s): G93.41 - Metabolic encephalopathy Status: Acute Assessment and Plan: Improved Likely at baseline (6) Acute on chronic respiratory failure with hypoxia and hypercapnia: Code(s): J96.21 - Acute and chronic respiratory failure with hypoxia; J96.22 - Acute and chronic respiratory failure with hypercapnia Status: Acute Assessment and Plan: Continue nasal cannula oxygen, now at baseline (7) Community acquired pneumonia: Qualifiers: Laterality: unspecified laterality Qualified Code(s): J18.9 - Pneumonia, unspecified organism Code(s): J18.9 - Pneumonia, unspecified organism Status: Acute Assessment and Plan: D/c methylprednisolone 05/23 Completed azithromycin and ceftriaxone (8) Urinary tract infection: Qualifiers: Hematuria presence: without hematuria Urinary tract infection type: acute cystitis Qualified Code(s): N30.00 - Acute cystitis without hematuria Code(s): N39.0 - Urinary tract infection, site not specified Status: Acute Assessment and Plan: RESOLVED (9) CHF (congestive heart failure): Qualifiers: Heart failure chronicity: chronic Heart failure type: unspecified Qualified Code(s): I50.9 - Heart failure, unspecified Code(s): I50.9 - Heart failure, unspecified Status: Acute Assessment and Plan: Clinically stable (10) COPD (chronic obstructive pulmonary disease): Qualifiers: COPD type: unspecified COPD Qualified Code(s): J44.9 - Chronic obstructive pulmonary disease, unspecified Code(s): J44.9 - Chronic obstructive pulmonary disease, unspecified Status: Chronic Assessment and Plan: Continue bronchodilators (11) Sepsis: Qualifiers: Acute renal failure type: unspecified Sepsis acute organ dysfunction status: with acute organ dysfunction Sepsis type: sepsis due to unspecified organism Severe sepsis acute organ dysfunction type: acute renal failure Severe sepsis shock status: without septic shock Qualified Code(s): A41.9 - Sepsis, unspecified organism; R65.20 - Severe sepsis without septic shock; N17.9 - Acute kidney failure, unspecified Code(s): A41.9 - Sepsis, unspecified organism Status: Acute Assessment and Plan: RESOLVED DS: Summary Hospital Course Reason for hospitalization: Septic shock Hospital Course: 76-year-old female was admitted with septic shock C diff colitis and pneumonia. She was treated with ceftriaxone azithromycin. She completed these and completed a 10 day course of fidaxomicin on 05/24. She was tolerating physical therapy. She was tolerating her diet. Electrolyte abnormalities due to her diarrhea including hypomagnesemia were addr
== END 2021-05-25 12:20 | DRG 871 ==
LOC: ANHED 17:18 → ANHIMU 18:46 → ANH2MED 05-17 21:57 → ANHICU 05-26 17:24 → ANHIMU 05-26 17:24
PROVIDERS: Family Medicine; Hospitalist; Internal Medicine; Admitting Provider Internal Medicine; Emergency Provider Emergency Medicine; PCP Internal Medicine; Visit Provider Internal Medicine
DX: A41.9 Sepsis, unspecified organism (principal); R65.21 Severe sepsis with septic shock; J96.21 Acute and chronic respiratory failure with hypoxia; J96.22 Acute and chronic respiratory failure with hypercapnia; G93.41 Metabolic encephalopathy; J18.9 Pneumonia, unspecified organism; A04.72 Enterocolitis due to Clostridium difficile, not specified as recurrent; N17.9 Acute kidney failure, unspecified; J44.0 Chronic obstructive pulmonary disease with (acute) lower respiratory infection; E46 Unspecified protein-calorie malnutrition; Z16.21 Resistance to vancomycin; R82.71 Bacteriuria; B95.2 Enterococcus as the cause of diseases classified elsewhere; I11.0 Hypertensive heart disease with heart failure; Z20.822 Contact with and (suspected) exposure to COVID-19; I50.9 Heart failure, unspecified; K86.81 Exocrine pancreatic insufficiency; D64.9 Anemia, unspecified; F41.9 Anxiety disorder, unspecified; M19.90 Unspecified osteoarthritis, unspecified site; F32.9 Major depressive disorder, single episode, unspecified; K21.9 Gastro-esophageal reflux disease without esophagitis; E78.5 Hyperlipidemia, unspecified; M81.0 Age-related osteoporosis without current pathological fracture; I73.9 Peripheral vascular disease, unspecified; E83.42 Hypomagnesemia; E66.9 Obesity, unspecified; Z68.34 Body mass index [BMI] 34.0-34.9, adult; Z99.81 Dependence on supplemental oxygen; Z86.73 Personal history of transient ischemic attack (TIA), and cerebral infarction without residual deficits; Z90.49 Acquired absence of other specified parts of digestive tract; Z90.710 Acquired absence of both cervix and uterus; Z98.1 Arthrodesis status
CPT/HCPCS: 36415; 36569; 36600; 51701; 71045; 80048; 80053; 81001; 82375; 82607; 82746; 82805; 82948; 83050; 83540; 83550; 83605; 83735; 84100; 85014; 85018; 85025; 85027; 85610; 85730; 86140; 87040; 87077; 87086; 87088; 87186; 87324; 92526; 92610; 93005; 94002; 94003; 94640; 94660; 96365; 96367; 96375; 97110; 97116; 97162; 97165; 97530; 97535; 99285; A9270; C1751; C9803; J0131; J0360; J0456; J0696; J1630; J1650; J1940; J2001; J2060; J2405; J2920; J2930; J3475; J3480; J7030; U0003; U0005

== ENCOUNTER 2021-06-06 21:01 | Inpatient (IN) | payer MEDICARE, MEDICAID, SELFPAY ==
--- NOTE | ~2021-06-06 | XR_ITS ---
EXAMINATION: XR chest 1V DATE: 06/06/2021 21:40 INDICATION: COPD and congestive heart failure presenting post fall TECHNIQUE: frontal view of the chest was obtained. COMPARISON: Chest radiograph dated 05/14/2021 FINDINGS: Chronic elevation the right hemidiaphragm. Right apical pleural-parenchymal scarring. Opacities at th e left lung base with obscuration of the costophrenic angle. No pneumothorax. Cardiomegaly with enlar gement of the central pulmonary arteries consistent with pulmonary arterial hypertension. Severe bila teral glenohumeral osteoarthritis. Severe cervical spondylosis with anterior plate-screw fixation for C5-C6 anterior spinal fusion. Mild thoracolumbar levocurvature. IMPRESSION: 1. Opacities at the left lower lung zone which could represent atelectasis, pneumonia, pulmonary gali a, small left pleural effusion or some combination thereof. 2. Chronic elevation of the right hemidiaphragm. Reviewed, dictated and finalized at location A. IMPRESSION: 1. Opacities at the left lower lung zone which could represent atelectasis, pne umonia, pulmonary edema, small left pleural effusion or some combination thereo f. 2. Chronic elevation of the right hemidiaphragm.
--- NOTE | ~2021-06-06 | XR_ITS ---
EXAMINATION: XR abdomen obstructive series DATE: 06/08/2021 12:48 INDICATION: Diarrhea. TECHNIQUE: Upright and supine views of the abdomen on 3 radiographs were obtained. COMPARISON: CT abdomen and pelvis 04/17/2021 FINDINGS: There are no dilated loops of bowel. No free intraperitoneal gas. Surgical clips in the rig ht upper quadrant are likely from cholecystectomy. There are changes of anterior fusion procedure in lumbar spine. IMPRESSION: 1. Normal bowel gas pattern. Reviewed, dictated and finalized at location A.
--- NOTE | ~2021-06-06 | CT_ITS ---
EXAMINATION: CT brain wo con DATE: 06/06/2021 21:26 INDICATION: Head injury. TECHNIQUE: Computed tomography (CT) of the head was performed without intravenous contrast. The mA wa s adjusted according to patient size. Iterative reconstruction technique was employed. The dose-lengt h product was 605.33 mGy-cm. COMPARISON: Head CT 04/06/21 FINDINGS: There are scattered areas of low attenuation in the cerebral white matter. There are old la cunar infarcts in the bilateral basal ganglia. There is a small old infarct in left cerebellum. There is no intracranial hemorrhage, acute infarction, or abnormal intracranial mass lesion. The ventricle s are normal in size. There is mild mucosal thickening in the paranasal sinuses. The mastoid air cell s are normal. IMPRESSION: 1. 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 2. Stable moderate nonspecific cerebral white matter disease, which likely represents chronic small v essel ischemic disease. Reviewed, dictated and finalized at location A. IMPRESSION: 1. 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 2. Stable moderate nonspecific cerebral white matter disease, which likely repr esents chronic small vessel ischemic disease.
--- NOTE | ~2021-06-06 | XR_ITS ---
EXAMINATION: XR wrist LT min 3V DATE: 06/08/2021 12:48 INDICATION: Left wrist pain. Fall. TECHNIQUE: 4 views of left wrist were obtained. COMPARISON: Left wrist radiographs 01/07/2006 FINDINGS: There is dorsal tilt of lunate. No acute fracture. There is severe osteoarthritis of trisca phe joint, first carpometacarpal joint, and first metacarpophalangeal joint. There is mild osteoarthr itis of some the other metacarpophalangeal joints and interphalangeal joints. IMPRESSION: 1. Polyarticular osteoarthritis. 2. Dorsal tilt of lunate, consistent with dorsal intercalated segmental instability (DISI). Reviewed, dictated and finalized at location A. IMPRESSION: 1. Polyarticular osteoarthritis. 2. Dorsal tilt of lunate, consistent with dorsal intercalated segmental instabi lity (DISI).
--- NOTE | ~2021-06-06 | CT_ITS ---
EXAMINATION: CT cervical spine wo con DATE: 06/06/2021 21:26 INDICATION: Head injury. Neck pain. TECHNIQUE: Computed tomography (CT) of the cervical spine was performed without intravenous contrast. Automated exposure control and iterative reconstruction technique were employed. The dose-length pro duct was 407.86 mGy-cm. COMPARISON: None FINDINGS: There is 6 degrees dextrocurvature of cervical spine. There is hypolordosis of cervical spi ne. There is 2 mm anterolisthesis of C7 on T1. There are changes of anterior fusion procedure at C5-C 6 with healed interbody bone graft and anterior plate and screws. Vertebral body heights are normal. There is mildly decreased disc height at C3-C4, severely decreased disc height at C4-C5 and C6-C7, an d moderately decreased disc height at C7-T1. The following disc levels are specifically discussed: C2-C3: There is mild left uncovertebral joint osteoarthritis. There is severe bilateral facet joint o steoarthritis. There is mild bilateral neural foraminal stenosis. There is no central canal stenosis. C3-C4: There is moderate right and severe left uncovertebral joint osteoarthritis. There is moderate right and severe left facet joint osteoarthritis. There is mild right and moderate left neural forami nal stenosis. There is mild central canal stenosis. C4-C5: There is severe bilateral uncovertebral joint osteoarthritis. There is moderate right and edith re left facet joint osteoarthritis. There is mild right and moderate left neural foraminal stenosis. There is mild central canal stenosis. C5-C6: There is mild bilateral uncovertebral joint hypertrophy. There is no facet joint hypertrophy. There is mild right neural foraminal stenosis. There is mild central canal stenosis. C6-C7: There is severe bilateral uncovertebral joint osteoarthritis. There is mild bilateral facet nitin int osteoarthritis. There is mild bilateral neural foraminal stenosis. There is mild central canal st enosis. C7-T1: There is mild bilateral uncovertebral joint osteoarthritis. There is severe bilateral facet nitin int osteoarthritis. There is mild bilateral neural foraminal stenosis. There is no central canal sten osis. IMPRESSION: 1. No fracture. 2. Severe cervical spondylosis. 3. Anterior fusion procedure at C5-C6. Reviewed, dictated and finalized at location A.
[2021-06-06 21:07] VITALS: BP 93/55; PULSE 92; RESP 18; TEMP 36.4; O2SAT 100
--- NOTE | 2021-06-06 21:11 | ED.GENADULT ---
HPI - General Adult General Chief complaint: Fall Stated complaint: fall/hit head Time Seen by Provider: 06/06/21 21:05 Source: RN notes reviewed History of Present Illness HPI narrative: Patient presents emergency department from [facility] via EMS for fall. History is per the patient as well as ECF patient states that she called for them to come help her get up and staff not responded quickly enough at that time she try to get up and fell striking her head on a dresser she denies any loss of consciousness she denies any other trauma or injury states she does have chronic pain in her shoulders bilaterally but denies any new pain she denies any chest pain, shortness of breath abdominal pain nausea vomiting or any other symptoms Related Data Home Medications Medication Instructions Recorded Confirmed Atrovent HFA 2 puff INHALATION QID 04/03/21 05/14/21 azelastine 137 mcg INTRANASAL Q12H 04/03/21 05/14/21 omeprazole 40 mg PO DAILY 04/03/21 05/14/21 Allergies Allergy/AdvReac Type Severity Reaction Status Date / Time No Known Allergies Allergy Unknown Verified 05/13/21 15:54 Review of Systems Review of Systems: Gen.: Denies fevers or chills Eyes: Denies eye pain or visual change ENT: Denies congestion Respiratory: Denies shortness of breath or cough CV: Denies chest pain GI: Denies abdominal pain nausea, emesis Musculoskeletal: Denies back pain or muscle pain Neuro: Denies numbness, tingling, weakness or focal weakness Skin: Denies rash Except as documented, all other systems reviewed and negative PMF Past Medical History Medical History Anemia Anxiety Arthritis Back pain Bilateral shoulder pain CHF (congestive heart failure) Diastolic COPD (chronic obstructive pulmonary disease) On home O2 3L Degenerative joint disease of both hips Dementia Depression 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 Emphysema of lung Exocrine pancreatic insufficiency GERD (gastroesophageal reflux disease) GI bleed H/O ulcer disease Herniated disc HLD (hyperlipidemia) HTN (hypertension) Migraine OAB (overactive bladder) Osteoporosis Pancreatitis Pneumonia Prediabetes PVD (peripheral vascular disease) TIA (transient ischemic attack) UTI (urinary tract infection) Wears dentures Surgical History Surgical History H/O neck surgery 2002 History of back surgery 2000 History of bladder suspension procedure History of cardiac cath History of cholecystectomy History of hysterectomy History of lumbar fusion x2 History of tonsillectomy History of tubal ligation History of vascular surgery lt leg arteroplasty Family History Family History Father Patient's father is in good health Family history of Parkinson's disease Sibling Patient's brother is in good health Mother Family history of chronic obstructive pulmonary disease Family history of pancreatic cancer Social History Social History Smoking packs per day: 1 Smoking cigarettes per day: 20.0 Years smoked: 30 Smoking pack-years: 30.00 Smoking status: Former smoker Alcohol intake: never Substance use: unknown Additional living arrangements comments: [facility] Gender identity (if verbalized by the patient): Female Spiritual care concerns: No Exam Narrative: APPEARANCE: No acute distress, nontoxic, resting in bed EYES: EOMI, PERRL HEENT: Normocephalic, atraumatic, OMM Neck: Supple no midline tenderness palpation RESPIRATORY: No respiratory distress Clear to auscultation bilaterally with no rhonchi wheezing or rales. CARDIOVASCULAR: Regular rate and rhythm without murmurs rubs or gallops. ABDOMINAL: Soft, nontender, nondistended, no rebound or guarding MUSCULOSKELETAl: Moves all extremiti
[2021-06-06 21:41] VITALS: BP 96/60; PULSE 70; RESP 18; O2SAT 99
[2021-06-06 21:57] LABS: Hematocrit 30.2 % (37.0-47.0); Hemoglobin 8.9 g/dL (12.0-15.0); Mean Corpuscular HGB Conc 29.5 g/dl (32-36); Mean Corpuscular Hemoglobin 27.7 pg (26-34); Mean Corpuscular Volume 94.1 fl (80-100); Mean Platelet Volume 10.7 fl (7.4-10.4); Platelet Count Result 494 k/mm3 (150-375); Red Blood Count 3.21 M/mm3 (4.2-5.4); Red Cell Distribution Width 16.8 % (11.5-14.5); White Blood Count 16.4 K/mm3 (4.5-10.0)
[2021-06-06] MEDS: SODIUM CHLORIDE 0.9% IV 1,000 ML 999 ML IV CONT ×2 (21:57→23:00)
[2021-06-06 22:05] LABS: INR 1.2; Prothrombin Time 14.7 Seconds (11.1-14.7)
[2021-06-06 22:06] LABS: Alanine Aminotransferase 8 U/L (4-35); Albumin Level 3.2 g/dL (3.5-5.1); Alkaline Phosphatase 88 U/L (38-126); Anion Gap 4 mmol/L (8-16); Aspartate Amino Transferase 21 U/L (14-36); Bilirubin,Total 0.3 mg/dL (0.2-1.3); Blood Urea Nitrogen 13 mg/dL (7-17); Carbon Dioxide 37 mmol/L (22-30); Chloride 91 mmol/L (98-107); Estimated Glomerular Filt Rate > 60; Glucose 139 mg/dL (65-110); Potassium 3.3 mmol/L (3.4-5.0); Sodium 132 mmol/L (137-145)
[2021-06-06 22:06] LABS: Partial Thromboplastin Time 48.9 SECONDS (22.3-36.8)
[2021-06-06 22:20] LABS: Add Urine Microscopic? YES; Appearance Urine Clear (Clear); Bacteria Urine Trace /hpf; Bilirubin Urine Negative (Negative); Blood Urine Negative (Negative); Color Urine Yellow (Yellow); Glucose Urine UA Negative (Negative); Ketones Urine Negative (Negative); Leukocyte Esterase Ur 1+ LEU/UL (Negative); Mucus Urine Rare /lpf; Nitrate Urine Positive (Negative); Protein Urine Negative (Negative); RBC Urine 0-2 /hpf (0-2); Specific Grav Ur 1.011 (1.001-1.035); Squamous Epithelial Cell Urine Rare /hpf (Few); Urobilinogen Urine Negative mg/dL (<2.0); WBC Urine 21-30 /hpf
[2021-06-06 22:24] LABS: Band Neutrophils Percent 17 % (0-6); Eosinophils Absolute Manual 0.32 K/mm3 (0.02-0.5); Eosinophils Percent Manual 2 % (0-4); Lymphocytes Absolute Manual 3.11 K/mm3 (1.1-4.5); Monocytes Absolute Manual 0.49 K/mm3 (0.1-0.90); Monocytes Percent Manual 3 % (3-9); Neutrophils Absolute Manual 12.46 K/mm3 (1.7-7.2); Neutrophils Percent Manual 59 % (46-73); Total Cells Counted 100
[2021-06-06 22:25] LABS: Anisocytosis 2+ (NORMAL); Hypochromasia 1+ (NORMAL); Platelet Estimate Increased (Adequate)
[2021-06-06] MEDS: POTASSIUM CHLORIDE 20 MEQ TABLET PO (23:07)
[2021-06-06 23:29] VITALS: BP 112/64; PULSE 93; RESP 19; O2SAT 97
[2021-06-07] VITALS (12 sets, daily range): BP systolic 94–112; BP diastolic 54–68; PULSE 82–94; RESP 18–20; TEMP 36.3–36.8; O2SAT 91–99; BMI 30.4
[2021-06-07 00:03] LABS: Lactic Acid Reflex 0.8 mmol/L (0.7-2.1)
--- NOTE | 2021-06-07 01:15 | ADMGEN ---
This patient, Gabbi Champagne, was admitted to [facility] Surg Room 304-02. Patient/family oriented to hospital policies and general routines including ID bracelet, bed and alarms, visiting hours, pain management, procedures, bathroom and other care routines, personal items, smoking policy, room service/diet, and visiting hours. Information on how to activate the Rapid Response Team has been discussed. Patient/Family are encouraged to report perceived risks to care and to ask questions if they do not understand what they are told or what they should do.
--- NOTE | 2021-06-07 04:32 | PM.IMHP ---
H&P: HPI History of Present Illness Date/Time: 06/07/21 04:32 Chief Complaint: Fall Narrative: This is a 76-year-old female with past medical history significant for osteoporosis, hypertension, dyslipidemia, COPD/emphysema, peripheral neuropathy, iron deficiency anemia, pancreatic insufficiency. Patient was just recently treated for C. difficile diarrhea and was discharged to rehabilitation center. Today she was brought to the emergency room after she had a fall. Patient has been having profuse diarrhea has been incontinent and today she was trying to get out of bed she usually uses a walker but she slid off the bed and fell on her side and was brought to the emergency. There was no loss of consciousness she denies any nausea ,vomiting or abdominal pain ,no fevers ,no rigors ,no chills ,no cough ,no sputum production. Most of the history has been obtained with the help of the granddaughter who is at bedside. It was noted that patient was on a course of levofloxacin. Preliminary workup was significant for urine with numerous wbc's, WBC shows 16,000 white blood cell count, BMP showed a sodium 133 and a potassium of 3.3 chloride of 90 and bicarb of [address] did not show any acute abnormalities, a chest x-ray was significant for infiltrates. Review of Systems Review of Systems: Fall, generalized weakness, profuse diarrhea, incontinence. Constitutional: Constitutional: Denies chills, Denies fever(s), Reports frequent falls and Reports weakness Eyes: Eyes: Denies change in vision ENT: Denies dysphagia, Denies nasal congestion, Denies nasal discharge, Denies nasal obstruction and Denies odynophagia Cardiovascular: Cardiovascular: Denies irregular heart rhythm, Denies claudication, Denies leg edema, Denies lightheadedness, Denies radiating jaw, neck or arm pain, Denies palpitations, Denies dyspnea, Denies dyspnea on exertion and Denies orthopnea Respiratory: Respiratory: Denies change in phlegm color, Denies cough, Denies excessive phlegm production and Denies dyspnea Gastrointestinal: Gastrointestinal: Reports diarrhea, Denies nausea and Denies vomiting Genitourinary: Genitourinary: Denies dysuria and Denies flank pain Musculoskeletal: Musculoskeletal: Denies arthralgias Integumentary/Breasts: Skin/Breast: Reports system reviewed and no additional complaints, except as docu Neurologic: Denies vertigo, Denies dizziness, Denies syncope, Denies focal weakness and Denies Sensory deficit (Neuro) Psychiatric: Psychiatric: Reports no additional psychiatric complaints Endocrine: Endocrine: Reports no additional endocrine complaints Hematologic/Lymphatic: Hematologic/Lymphatic: Reports no additional hematologic/lymphatic complaints Allergic/Immunologic: Allergic/Immunologic: Reports no additional allergic/immunologic complaints [facility] Past Medical History Medical History Anemia Anxiety Arthritis Back pain Bilateral shoulder pain CHF (congestive heart failure) Diastolic COPD (chronic obstructive pulmonary disease) On home O2 3L Degenerative joint disease of both hips Dementia Depression 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 Emphysema of lung Exocrine pancreatic insufficiency GERD (gastroesophageal reflux disease) GI bleed H/O ulcer disease Herniated disc HLD (hyperlipidemia) HTN (hypertension) Migraine OAB (overactive bladder) Osteoporosis Pancreatitis Pneumonia Prediabetes PVD (peripheral vascular disease) TIA (transient ischemic attack) UTI (urinary tract infection) Wears dentures Surgical History Surgical History H/O neck surgery 2001 History of back surgery 1999 History of bladder suspension procedure History of cardiac cath History of cholecystectomy History of hysterectomy History of lumbar fusion x2 History of tonsillectomy History of tubal ligation History of vascular surgery lt leg arteropla
[2021-06-07] MEDS: SODIUM CHLORIDE 0.9% IV 1,000 ML 75 ML IV CONT (05:12)
[2021-06-07 07:25] LABS: Basophils Absolute Auto 0.1 K/mm3 (0.0-0.1); Basophils Percent Auto 0.6 % (0.2-1.2); Eosinophils Absolute Auto 0.7 K/mm3 (0-0.3); Eosinophils Percent Auto 4.8 % (0-4.4); Hematocrit 28.8 % (37.0-47.0); Hemoglobin 8.4 g/dL (12.0-15.0); Immature Granulocyte Absolute 0.89 K/mm3 (0.00-0.031); Immature Granulocyte Percent A 5.8 % (0-0.5); Lymphocytes Absolute Auto 2.72 K/mm3 (0.9-3.2); Lymphocytes Percent Auto 17.7 % (18.3-44.2); Mean Corpuscular HGB Conc 29.2 g/dl (32-36); Mean Corpuscular Hemoglobin 27.5 pg (26-34); Mean Corpuscular Volume 94.4 fl (80-100); Mean Platelet Volume 10.9 fl (7.4-10.4); Monocytes Absolute Auto 1.2 K/mm3 (0.1-0.6); Monocytes Percent Auto 7.9 % (2.6-8.5); Neutrophils Absolute Auto 9.7 K/mm3 (1.3-6.7); Neutrophils Percent Auto 63.2 % (45.5-73.1); Nucleated Red Blood Cells Perc 0.1 % (0.0-0.2); Platelet Count Result 484 k/mm3 (150-375); Red Blood Count 3.05 M/mm3 (4.2-5.4); Red Cell Distribution Width 16.8 % (11.5-14.5); White Blood Count 15.4 K/mm3 (4.5-10.0)
[2021-06-07 07:51] LABS: Alanine Aminotransferase 9 U/L (4-35); Albumin Level 2.7 g/dL (3.5-5.1); Alkaline Phosphatase 74 U/L (38-126); Anion Gap 6 mmol/L (8-16); Aspartate Amino Transferase 21 U/L (14-36); Bilirubin,Total 0.2 mg/dL (0.2-1.3); Blood Urea Nitrogen 10 mg/dL (7-17); Calcium 7.3 mg/dL (8.4-10.2); Carbon Dioxide 31 mmol/L (22-30); Chloride 97 mmol/L (98-107); Estimated CRCL calculation 63 ml/min; Estimated Glomerular Filt Rate > 60; Glucose 123 mg/dL (65-110); Potassium 2.9 mmol/L (3.4-5.0); Sodium 134 mmol/L (137-145)
[2021-06-07] MEDS: ACETAMINOPHEN 325 MG TABLET 650 MG PO ×2 (08:24→16:49)
[2021-06-07] MEDS: ASPIRIN 81 MG CHEWABLE TABLET PO (08:26)
[2021-06-07] MEDS: MECLIZINE HCL 12.5 MG TABLET PO (08:26)
[2021-06-07] MEDS: LIPASE/AMYLASE/PROTEASE 12,000 UNITS CAP 2 CAP PO ×3 (08:26→16:48)
[2021-06-07] MEDS: BENZONATATE 100 MG CAPSULE 200 MG PO (08:27)
[2021-06-07] MEDS: DULoxetine HCL 60 MG CAPSULE.DR PO (08:27)
[2021-06-07] MEDS: PANTOPRAZOLE 40 MG TABLET PO (08:27)
[2021-06-07] MEDS: LORATADINE 10 MG TABLET PO (08:28)
[2021-06-07] MEDS: AZELASTINE HCL NASAL 0.1% 137 MCG/SPR 30 ML BTL 1 SPRAY NASAL ×2 (08:28→20:54)
[2021-06-07] MEDS: FOLIC ACID 1 MG TABLET PO (08:28)
[2021-06-07] MEDS: FERROUS SULFATE 324 MG TABLET PO (08:28)
[2021-06-07] MEDS: amLODIPine BESYLATE 5 MG TABLET PO (08:28)
[2021-06-07] MEDS: MAGNESIUM OXIDE 400 MG TABLET PO (08:29)
[2021-06-07] MEDS: ATORVASTATIN 40 MG TABLET 80 MG PO (08:29)
[2021-06-07] MEDS: BUDESONIDE RESPULE NEB 0.5 MG/2 ML AMP INHALATION ×2 (08:30→21:07)
[2021-06-07] MEDS: PREGABALIN (*CRX) 75 MG CAPSULE 150 MG PO ×2 (08:31→16:49)
--- NOTE | 2021-06-07 14:00 | PM.IMPN ---
Progress Note: A&P Assessment and Plan (1) Acute UTI: Code(s): N39.0 - Urinary tract infection, site not specified Status: Acute (2) Community acquired pneumonia: Code(s): J18.9 - Pneumonia, unspecified organism Status: Acute (3) Contusion of head: Code(s): S00.93XA - Contusion of unspecified part of head, initial encounter Status: Acute (4) Exocrine pancreatic insufficiency: Code(s): K86.81 - Exocrine pancreatic insufficiency Status: Chronic (5) Electrolyte abnormality: Code(s): E87.8 - Other disorders of electrolyte and fluid balance, not elsewhere classified Status: Acute (6) COPD (chronic obstructive pulmonary disease): Qualifiers: COPD type: unspecified COPD Qualified Code(s): J44.9 - Chronic obstructive pulmonary disease, unspecified Code(s): J44.9 - Chronic obstructive pulmonary disease, unspecified Status: Chronic (7) Tobacco abuse: Code(s): Z72.0 - Tobacco use Status: Acute (8) RLS (restless legs syndrome): Code(s): G25.81 - Restless legs syndrome Status: Chronic (9) Fall: Code(s): W19.XXXA - Unspecified fall, initial encounter Status: Acute (10) Diarrhea: Code(s): R19.7 - Diarrhea, unspecified Status: Acute Additional Plan Patient admitted to [address] [place] [address]. She has been started on Rocephin and azithromycin UTI and pneumonia. Patient had a fall with head trauma. CT of the brain and cervical spine CT both showed no acute findings. PT and OT ordered. White count noted. Patient still having diarrhea. Will check C diff toxin. Continue lipase for her pancreatic insufficiency. Potassium noted and this was replaced. Check magnesium left next blood draw. She was educated about the benefits of smoking cessation. Hemoglobin noted. Prior workup showing consistent with anemia chronic disease. SCDs Subjective Date/time seen: 06/07/21 14:00 Interval history: 76-year-old female with past medical history significant for osteoporosis, hypertension, dyslipidemia, COPD/emphysema, peripheral neuropathy, iron deficiency anemia, pancreatic insufficiency her for fall and found to have UTI Patient complaining diarrhea. She has had C diff recently. She also complains of abdominal pain. No shortness of breath or cough. No chest pain. No nausea or vomiting. Exam Narrative: AF 97.3 106/64 89 18 93% Gen - NARD Chest - bibasilar crackles CV - RRR S1/S2 with extra beat Abd - Soft, NT/ND, Positive BS Ext - No pedal edema Psych - Nml mood and affect Skin - bruising noted right upper thigh but no pain or hematoma Objective Data Vital Signs Vital Signs: Vital Signs - 24 hr 06/06/21 21:07 06/06/21 21:41 06/06/21 23:29 Temperature 97.5 F L Pulse Rate 92 70 93 Respiratory Rate 18 18 19 Blood Pressure 93/55 L 96/60 L 112/64 Pulse Oximetry 100 99 97 06/07/21 00:11 06/07/21 01:10 06/07/21 06:00 Temperature 97.9 F 97.3 F L Pulse Rate 91 94 90 Respiratory Rate 18 18 20 Blood Pressure 110/68 108/62 106/64 Pulse Oximetry 99 96 91 06/07/21 08:30 06/07/21 08:32 06/07/21 08:33 Temperature Pulse Rate 82 Respiratory Rate 18 Blood Pressure Pulse Oximetry 91 93 06/07/21 08:37 Temperature Pulse Rate 89 Respiratory Rate 18 Blood Pressure Pulse Oximetry Intake/Output Intake/Output: Intake & Output 06/04/21 06/05/21 06/06/21 06/07/21 23:59 23:59 23:59 23:59 Intake Total 480 Balance 480 Meds/Results Medications: Active Medications Generic Name Dose Route Start Last Admin Trade Name Freq PRN Reason Stop Dose Admin Acetaminophen 650 mg 06/07/21 05:01 06/07/21 08:24 Acetaminophen 325 Mg Tablet PO 650 mg Q6H PRN Administration Mild Pain (1-3) Or Fever Albuterol 1 puff 06/07/21 05:01 Albuterol Sulfate (*Sp) Aerosol 1 Puff INHALATION Q4H PRN shortness of breath or wheezing Alendronate Sodium 70
[2021-06-07] MEDS: MELATONIN 5 MG TABLET PO (20:55)
[2021-06-07] MEDS: traZODone HCL 50 MG TABLET 300 MG PO (20:55)
[2021-06-08] VITALS (9 sets, daily range): BP systolic 99–129; BP diastolic 48–62; PULSE 87–110; RESP 16–20; TEMP 36.9–38.3; O2SAT 91–96
[2021-06-08] MEDS: ACETAMINOPHEN 325 MG TABLET 650 MG PO (05:32)
[2021-06-08 06:17] LABS: Basophils Absolute Auto 0.2 K/mm3 (0.0-0.1); Basophils Percent Auto 0.9 % (0.2-1.2); Eosinophils Absolute Auto 1.2 K/mm3 (0-0.3); Eosinophils Percent Auto 7.1 % (0-4.4); Hematocrit 27.6 % (37.0-47.0); Hemoglobin 8.1 g/dL (12.0-15.0); Immature Granulocyte Absolute 1.45 K/mm3 (0.00-0.031); Immature Granulocyte Percent A 8.8 % (0-0.5); Lymphocytes Percent Auto 15.9 % (18.3-44.2); Mean Corpuscular HGB Conc 29.3 g/dl (32-36); Mean Corpuscular Hemoglobin 27.2 pg (26-34); Mean Corpuscular Volume 92.6 fl (80-100); Mean Platelet Volume 10.7 fl (7.4-10.4); Monocytes Absolute Auto 1.3 K/mm3 (0.1-0.6); Monocytes Percent Auto 7.7 % (2.6-8.5); Neutrophils Absolute Auto 9.8 K/mm3 (1.3-6.7); Neutrophils Percent Auto 59.6 % (45.5-73.1); Platelet Count Result 474 k/mm3 (150-375); Red Blood Count 2.98 M/mm3 (4.2-5.4); White Blood Count 16.4 K/mm3 (4.5-10.0)
[2021-06-08 06:38] LABS: Albumin Level 2.7 g/dL (3.5-5.1); Anion Gap 3 mmol/L (8-16); Blood Urea Nitrogen 7 mg/dL (7-17); Calcium 7.4 mg/dL (8.4-10.2); Carbon Dioxide 32 mmol/L (22-30); Chloride 102 mmol/L (98-107); Estimated CRCL calculation 63 ml/min; Estimated Glomerular Filt Rate > 60; Glucose 113 mg/dL (65-110); Magnesium 1.3 mg/dL (1.6-2.3); Phosphorus 3.8 mg/dL (2.5-4.5); Potassium 3.2 mmol/L (3.4-5.0); Sodium 137 mmol/L (137-145)
[2021-06-08] MEDS: AZELASTINE HCL NASAL 0.1% 137 MCG/SPR 30 ML BTL 1 SPRAY NASAL ×2 (08:02→21:41)
[2021-06-08] MEDS: POTASSIUM CHLORIDE 20 MEQ TABLET 40 MEQ PO (08:02)
[2021-06-08] MEDS: MAGNESIUM OXIDE 400 MG TABLET PO (08:03)
[2021-06-08] MEDS: ATORVASTATIN 40 MG TABLET 80 MG PO (08:03)
[2021-06-08] MEDS: LORATADINE 10 MG TABLET PO (08:03)
[2021-06-08] MEDS: FERROUS SULFATE 324 MG TABLET PO (08:03)
[2021-06-08] MEDS: PANTOPRAZOLE 40 MG TABLET PO (08:04)
[2021-06-08] MEDS: ASPIRIN 81 MG CHEWABLE TABLET PO (08:04)
[2021-06-08] MEDS: FOLIC ACID 1 MG TABLET PO (08:06)
[2021-06-08] MEDS: LIPASE/AMYLASE/PROTEASE 12,000 UNITS CAP 2 CAP PO ×3 (08:06→16:26)
[2021-06-08] MEDS: DULoxetine HCL 60 MG CAPSULE.DR PO (08:06)
[2021-06-08] MEDS: PREGABALIN (*CRX) 75 MG CAPSULE 150 MG PO ×2 (08:10→16:25)
[2021-06-08] MEDS: MAGNESIUM SULF 2 GM/WATER 50ML 2 GM/50 ML BAG IVPB (09:16)
[2021-06-08] MEDS: BUDESONIDE RESPULE NEB 0.5 MG/2 ML AMP INHALATION ×2 (09:54→20:43)
[2021-06-08] MEDS: ALBUTEROL SULFATE (*SP) AEROSOL 1 PUFF 2 PUFF INHALATION ×3 (12:17→20:44)
--- NOTE | 2021-06-08 13:19 | PM.IMPN ---
Progress Note: A&P Assessment and Plan (1) Acute UTI: Code(s): N39.0 - Urinary tract infection, site not specified Status: Acute Assessment and Plan: Patient admitted to [address] [place] [address]. UA noted. She has been started on Rocephin for UTI. UCx growing gram negative bacilli. Follow up on urine culture. (2) Diarrhea: Code(s): R19.7 - Diarrhea, unspecified Status: Acute Assessment and Plan: Recent hx of Cdiff and now with recurrent diarrhea. Stool studies pending. Diarrhea improving without abx however. Will check KUB to exclude fecal impaction. If negative, will start oral vanco until stool results back KUB - shows normal bowel gas pattern (3) Community acquired pneumonia: Code(s): J18.9 - Pneumonia, unspecified organism Status: Acute Assessment and Plan: CXR on admission showing airspace opacities at the left lower lung zone. Patient was started on Rocephin and azithromycin for pneumonia. She is tolerating this well. She normally is on 3L NC but now down to 1.5L. Wheezing today so will schedule Albuterol MDI. Change to nebs if needed (4) Contusion of head: Code(s): S00.93XA - Contusion of unspecified part of head, initial encounter Status: Acute Assessment and Plan: Patient had a fall with head trauma. CT of the brain and cervical spine CT both showed no acute findings. PT and OT ordered. (5) COPD (chronic obstructive pulmonary disease): Qualifiers: COPD type: unspecified COPD Qualified Code(s): J44.9 - Chronic obstructive pulmonary disease, unspecified Code(s): J44.9 - Chronic obstructive pulmonary disease, unspecified Status: Chronic Assessment and Plan: As above. Wheezing noted today. Not in distress and no worsening hypoxia. Schedule Albuterol MDI. Consider steroids and/or nebs. Continue to follow. (6) Chronic hypoxemic respiratory failure: Code(s): J96.11 - Chronic respiratory failure with hypoxia Status: Chronic Assessment and Plan: She states that she is normally on 3L but now down to 1.5L and doing well. Follow. (7) Exocrine pancreatic insufficiency: Code(s): K86.81 - Exocrine pancreatic insufficiency Status: Chronic Assessment and Plan: Stable. Continue pancrelipase. (8) Electrolyte abnormality: Code(s): E87.8 - Other disorders of electrolyte and fluid balance, not elsewhere classified Status: Acute Assessment and Plan: Potassium low again so will continue to replace. Mag level also low probably contributing to her low potassium. Continue to replace electrolytes as needed (9) Tobacco abuse: Code(s): Z72.0 - Tobacco use Status: Acute Assessment and Plan: She states she quit smoking over 2 years ago. (10) Fall: Code(s): W19.XXXA - Unspecified fall, initial encounter Status: Acute Assessment and Plan: Fall precautions. Continue PT/OT (11) DVT prophylaxis: Code(s): Z29.9 - Encounter for prophylactic measures, unspecified Status: Acute Assessment and Plan: SCDs Subjective Date/time seen: 06/08/21 13:19 Interval history: 76-year-old female with past medical history significant for osteoporosis, hypertension, dyslipidemia, COPD/emphysema, peripheral neuropathy, iron deficiency anemia, pancreatic insufficiency her for fall and found to have UTI and diarrhea. Diarrhea is better. Eating okay. No CP or SOB. Cough persistent productive of clear sputum. Wheezy today. Exam Narrative: AF 98.8 99/48 87 18 94% 1.5L Gen - NARD Chest - diffuse expiratory wheezes anteriorly, nml RR CV - RRR S1/S2 Abd - Soft, NT/ND, Positive BS Ext - No pedal edema. left wrist and lateral hand pain but not consistent with joint tenderness; no active synovitis. Nml ROM regarding the other joints. Psych - Nml mood and affect Skin - bruising noted right upper thigh but no p
[2021-06-08] MEDS: VANCOMYCIN ORAL 125 MG/2.5 ML SYRUP PO ×3 (15:07→23:55)
--- NOTE | 2021-06-08 16:14 | PC.NURSE ---
Addendum entered by Kacy Trejo RN 06/08/21 16:15: Student Arianna Gonzalez Original Note: On 06/08/21, the student, [ Nicole Shelton], provided care and completed [employer] documentation on this patient. I have reviewed the student's documentation and agree with the findings.
[2021-06-08] MEDS: traZODone HCL 50 MG TABLET 300 MG PO (21:41)
[2021-06-08] MEDS: MELATONIN 5 MG TABLET PO (21:42)
[2021-06-09] VITALS (9 sets, daily range): BP systolic 108–132; BP diastolic 54–76; PULSE 84–97; RESP 18–20; TEMP 36.6–37.7; O2SAT 91–96
[2021-06-09] MEDS: ALBUTEROL SULFATE (*SP) AEROSOL 1 PUFF 2 PUFF INHALATION ×5 (00:15→16:22)
[2021-06-09] MEDS: VANCOMYCIN ORAL 125 MG/2.5 ML SYRUP PO ×2 (05:06→12:11)
[2021-06-09 06:47] LABS: Hematocrit 26.5 % (37.0-47.0); Hemoglobin 7.8 g/dL (12.0-15.0); Mean Corpuscular HGB Conc 29.4 g/dl (32-36); Mean Corpuscular Hemoglobin 27.6 pg (26-34); Mean Corpuscular Volume 93.6 fl (80-100); Mean Platelet Volume 10.6 fl (7.4-10.4); Platelet Count Result 434 k/mm3 (150-375); Red Blood Count 2.83 M/mm3 (4.2-5.4); White Blood Count 16.7 K/mm3 (4.5-10.0)
[2021-06-09 07:08] LABS: Albumin Level 2.4 g/dL (3.5-5.1); Anion Gap 6 mmol/L (8-16); Blood Urea Nitrogen 4 mg/dL (7-17); Calcium 7.6 mg/dL (8.4-10.2); Carbon Dioxide 31 mmol/L (22-30); Chloride 100 mmol/L (98-107); Estimated CRCL calculation 75 ml/min; Estimated Glomerular Filt Rate > 60; Glucose 106 mg/dL (65-110); Magnesium 1.5 mg/dL (1.6-2.3); Phosphorus 4.3 mg/dL (2.5-4.5); Potassium 3.1 mmol/L (3.4-5.0); Sodium 137 mmol/L (137-145)
[2021-06-09] MEDS: BUDESONIDE RESPULE NEB 0.5 MG/2 ML AMP INHALATION (07:48)
[2021-06-09 08:51] LABS: Atypical Lymphocytes Present; Band Neutrophils Percent 3 % (0-6); Eosinophils Absolute Manual 0.83 K/mm3 (0.02-0.5); Eosinophils Percent Manual 5 % (0-4); Lymphocytes Absolute Manual 2.33 K/mm3 (1.1-4.5); Monocytes Absolute Manual 0.66 K/mm3 (0.1-0.90); Monocytes Percent Manual 4 % (3-9); Neutrophils Absolute Manual 12.85 K/mm3 (1.7-7.2); Neutrophils Percent Manual 74 % (46-73); Platelet Estimate Adequate (Adequate); Total Cells Counted 100
[2021-06-09 08:52] LABS: Anisocytosis 1+ (NORMAL); Hypochromasia 1+ (NORMAL)
[2021-06-09] MEDS: FERROUS SULFATE 324 MG TABLET PO (09:15)
[2021-06-09] MEDS: ASPIRIN 81 MG CHEWABLE TABLET PO (09:15)
[2021-06-09] MEDS: LIPASE/AMYLASE/PROTEASE 12,000 UNITS CAP 2 CAP PO ×3 (09:15→17:17)
[2021-06-09] MEDS: ATORVASTATIN 40 MG TABLET 80 MG PO (09:15)
[2021-06-09] MEDS: FOLIC ACID 1 MG TABLET PO (09:16)
[2021-06-09] MEDS: DULoxetine HCL 60 MG CAPSULE.DR PO (09:16)
[2021-06-09] MEDS: ENOXAPARIN 40 MG/0.4 ML SYRINGE SUB-Q (09:16)
[2021-06-09] MEDS: LORATADINE 10 MG TABLET PO (09:17)
[2021-06-09] MEDS: PREGABALIN (*CRX) 75 MG CAPSULE 150 MG PO ×2 (09:17→17:16)
[2021-06-09] MEDS: PANTOPRAZOLE 40 MG TABLET PO (09:17)
[2021-06-09] MEDS: MAGNESIUM OXIDE 400 MG TABLET PO (09:17)
--- NOTE | 2021-06-09 12:17 | PM.IMPN ---
Progress Note: A&P Assessment and Plan (1) Acute UTI: Code(s): N39.0 - Urinary tract infection, site not specified Status: Acute Assessment and Plan: Patient admitted to [address] [place] [address]. UA noted. She has been started on Rocephin for UTI. UCx growing ESBL EColi sensitive to ertapenem. Stop Rocephin. Will need IV access for outpatient treatment once a SNF has accepted. (2) C. difficile diarrhea: Code(s): A04.72 - Enterocolitis due to Clostridium difficile, not specified as recurrent Status: Acute Assessment and Plan: Recent hx of Cdiff in May and completed a 10 day course of fidaxomicin. She returns with complaints of recurrent diarrhea. Stool studies positive for CDiff. Diarrhea improving now. Will start fidaxomicin and stop Vanco. (3) Community acquired pneumonia: Code(s): J18.9 - Pneumonia, unspecified organism Status: Acute Assessment and Plan: CXR on admission showing airspace opacities at the left lower lung zone. Patient was started on Rocephin and azithromycin for pneumonia. She normally is on 3L NC but now down to 1.5L. UCx as mentioned above. BCx NGTD. Change to Ertapenem. Continue Azithro for a 5 day course (4) Contusion of head: Code(s): S00.93XA - Contusion of unspecified part of head, initial encounter Status: Acute Assessment and Plan: Patient had a fall with head trauma. CT of the brain and cervical spine CT both showed no acute findings. Continue PT and OT. (5) COPD (chronic obstructive pulmonary disease): Qualifiers: COPD type: unspecified COPD Qualified Code(s): J44.9 - Chronic obstructive pulmonary disease, unspecified Code(s): J44.9 - Chronic obstructive pulmonary disease, unspecified Status: Chronic Assessment and Plan: As above. Wheezing better today. Continue Albuterol MDI for now. Continue to follow. (6) Chronic hypoxemic respiratory failure: Code(s): J96.11 - Chronic respiratory failure with hypoxia Status: Chronic Assessment and Plan: She states that she is normally on 3L but now down to 1.5L and doing well. Follow. (7) Exocrine pancreatic insufficiency: Code(s): K86.81 - Exocrine pancreatic insufficiency Status: Chronic Assessment and Plan: Stable. Continue Creon. (8) Electrolyte abnormality: Code(s): E87.8 - Other disorders of electrolyte and fluid balance, not elsewhere classified Status: Acute Assessment and Plan: Potassium low again so will continue to replace. Mag level also low probably contributing to her low potassium and will replace again. Continue to replace electrolytes as needed. (9) Tobacco abuse: Code(s): Z72.0 - Tobacco use Status: Acute Assessment and Plan: She states she quit smoking over 2 years ago. (10) Fall: Code(s): W19.XXXA - Unspecified fall, initial encounter Status: Acute Assessment and Plan: Fall precautions. Continue PT/OT (11) DVT prophylaxis: Code(s): Z29.9 - Encounter for prophylactic measures, unspecified Status: Acute Assessment and Plan: Lovenox Subjective Date/time seen: 06/09/21 12:17 Interval history: 76-year-old female with past medical history significant for osteoporosis, hypertension, dyslipidemia, COPD/emphysema, peripheral neuropathy, iron deficiency anemia, pancreatic insufficiency her for fall and found to have ESBL EColi UTI and CDiff diarrhea. Complains on nausea but able to eat full meals. She has abd pain but does not improve or worsen with eating. No CP. SOB better. Diarrhea better. Exam Narrative: Tm 100.9 99.8 132/76 86 20 92% 1.5L Gen - NARD sitting up in bed Chest - few bibasilar rhonchi with minimal wheezing anteriorly, nml RR. No conversational dyspnea CV - RRR S1/S2 Abd - Soft, ND, mild SP tenderness with positive BS Ext - No pedal edema. Psych - Nml mood
[2021-06-09] MEDS: ACETAMINOPHEN 325 MG TABLET 650 MG PO ×2 (13:38→20:28)
[2021-06-09] MEDS: AZITHROMYCIN 250 MG TABLET PO (14:41)
[2021-06-09] MEDS: POTASSIUM CHLORIDE 20 MEQ TABLET 40 MEQ PO (14:41)
[2021-06-09] MEDS: FIDAXOMICIN 200 MG TABLET PO ×2 (14:41→20:24)
[2021-06-09] MEDS: MAGNESIUM SULF 2 GM/WATER 50ML 2 GM/50 ML BAG IVPB (14:42)
--- NOTE | 2021-06-09 15:47 | PC.NURSE ---
On 06/09/21, the student, Krystina Michaels, provided care and completed [facility] documentation on this patient. I have reviewed the student's documentation and agree with the findings.
[2021-06-09] MEDS: ERTAPENEM 1 GM/NS 50 ML 1 GM/50 ML BAG IVPB (17:10)
[2021-06-09] MEDS: AZELASTINE HCL NASAL 0.1% 137 MCG/SPR 30 ML BTL 1 SPRAY NASAL (20:24)
[2021-06-09] MEDS: traZODone HCL 50 MG TABLET 300 MG PO (20:24)
[2021-06-09] MEDS: BENZONATATE 100 MG CAPSULE 200 MG PO (20:24)
[2021-06-09] MEDS: MELATONIN 5 MG TABLET PO (20:24)
[2021-06-10] VITALS (9 sets, daily range): BP systolic 106–140; BP diastolic 59–80; PULSE 66–97; RESP 18–20; TEMP 36.6–37.3; O2SAT 91–92
[2021-06-10] MEDS: ALBUTEROL SULFATE (*SP) INHALER 2 PUFF INHALATION ×2 (02:53→09:35)
[2021-06-10 06:55] LABS: Hematocrit 27.3 % (37.0-47.0); Hemoglobin 8.1 g/dL (12.0-15.0); Mean Corpuscular HGB Conc 29.7 g/dl (32-36); Mean Corpuscular Hemoglobin 27.4 pg (26-34); Mean Corpuscular Volume 92.2 fl (80-100); Mean Platelet Volume 10.1 fl (7.4-10.4); Platelet Count Result 452 k/mm3 (150-375); Red Blood Count 2.96 M/mm3 (4.2-5.4); White Blood Count 15.1 K/mm3 (4.5-10.0)
[2021-06-10 07:15] LABS: Albumin Level 2.6 g/dL (3.5-5.1); Anion Gap 3 mmol/L (8-16); Blood Urea Nitrogen 6 mg/dL (7-17); Calcium 8.1 mg/dL (8.4-10.2); Carbon Dioxide 34 mmol/L (22-30); Chloride 102 mmol/L (98-107); Estimated CRCL calculation 63 ml/min; Estimated Glomerular Filt Rate > 60; Glucose 106 mg/dL (65-110); Magnesium 1.6 mg/dL (1.6-2.3); Phosphorus 4.4 mg/dL (2.5-4.5); Potassium 3.6 mmol/L (3.4-5.0); Sodium 139 mmol/L (137-145)
[2021-06-10 08:29] LABS: Band Neutrophils Percent 13 % (0-6); Eosinophils Absolute Manual 0.45 K/mm3 (0.02-0.5); Eosinophils Percent Manual 3 % (0-4); Hypochromasia 2+ (NORMAL); Lymphocytes Absolute Manual 3.02 K/mm3 (1.1-4.5); Monocytes Absolute Manual 1.35 K/mm3 (0.1-0.90); Monocytes Percent Manual 9 % (3-9); Neutrophils Absolute Manual 10.26 K/mm3 (1.7-7.2); Neutrophils Percent Manual 55 % (46-73); Platelet Estimate Adequate (Adequate); Total Cells Counted 100
[2021-06-10 08:30] LABS: Atypical Lymphocytes Present
[2021-06-10] MEDS: FERROUS SULFATE 324 MG TABLET PO (08:32)
[2021-06-10] MEDS: LIPASE/AMYLASE/PROTEASE 12,000 UNITS CAP 2 CAP PO ×3 (08:32→16:26)
[2021-06-10] MEDS: BENZONATATE 100 MG CAPSULE 200 MG PO (08:33)
[2021-06-10] MEDS: ATORVASTATIN 40 MG TABLET 80 MG PO (08:33)
[2021-06-10] MEDS: PROMETHAZINE HCL 12.5 MG TABLET PO (08:34)
[2021-06-10] MEDS: LORATADINE 10 MG TABLET PO (08:34)
[2021-06-10] MEDS: ASPIRIN 81 MG CHEWABLE TABLET PO (08:35)
[2021-06-10] MEDS: AZITHROMYCIN 250 MG TABLET PO (08:35)
[2021-06-10] MEDS: MAGNESIUM OXIDE 400 MG TABLET PO (08:35)
[2021-06-10] MEDS: FIDAXOMICIN 200 MG TABLET PO ×2 (08:35→20:47)
[2021-06-10] MEDS: guaiFENesin 200 MG/10 ML UDC 100 MG PO (08:35)
[2021-06-10] MEDS: MECLIZINE HCL 12.5 MG TABLET PO (08:35)
[2021-06-10] MEDS: DULoxetine HCL 60 MG CAPSULE.DR PO (08:36)
[2021-06-10] MEDS: ENOXAPARIN 40 MG/0.4 ML SYRINGE SUB-Q (08:36)
[2021-06-10] MEDS: AZELASTINE HCL NASAL 0.1% 137 MCG/SPR 30 ML BTL 1 SPRAY NASAL ×2 (08:36→23:29)
[2021-06-10] MEDS: PANTOPRAZOLE 40 MG TABLET PO (08:36)
[2021-06-10] MEDS: FOLIC ACID 1 MG TABLET PO (08:37)
[2021-06-10] MEDS: PREGABALIN (*CRX) 75 MG CAPSULE 150 MG PO ×2 (08:39→16:26)
[2021-06-10] MEDS: ACETAMINOPHEN 325 MG TABLET 650 MG PO (08:43)
[2021-06-10] MEDS: BUDESONIDE RESPULE NEB 0.5 MG/2 ML AMP INHALATION ×2 (09:35→21:09)
--- NOTE | 2021-06-10 11:23 | PM.IMPN ---
Progress Note: A&P Assessment and Plan (1) Acute UTI: Code(s): N39.0 - Urinary tract infection, site not specified Status: Acute Assessment and Plan: Patient admitted to [address] [place] [address]. UA noted. She has been started on Rocephin for UTI. UCx growing ESBL EColi sensitive to ertapenem. Rocephin changed to Ertapenem Day 2. Will need IV access for outpatient treatment once a SNF has accepted. (2) C. difficile diarrhea: Code(s): A04.72 - Enterocolitis due to Clostridium difficile, not specified as recurrent Status: Acute Assessment and Plan: Recent hx of Cdiff in May and completed a 10 day course of fidaxomicin. She returns with complaints of recurrent diarrhea. Stool studies positive for CDiff. Diarrhea improving now. Will continue fidaxomicin Day 2. (3) Community acquired pneumonia: Code(s): J18.9 - Pneumonia, unspecified organism Status: Acute Assessment and Plan: CXR on admission showing airspace opacities at the left lower lung zone. Patient was started on Rocephin and azithromycin for pneumonia. She normally is on 3L NC but now down to 1L. BCx NGTD. Changed to Ertapenem. She completed 5 day course of Azithromycin (4) Contusion of head: Code(s): S00.93XA - Contusion of unspecified part of head, initial encounter Status: Acute Assessment and Plan: Patient had a fall with head trauma. CT of the brain and cervical spine CT both showed no acute findings. Mental status normal. Continue PT and OT. (5) COPD (chronic obstructive pulmonary disease): Qualifiers: COPD type: unspecified COPD Qualified Code(s): J44.9 - Chronic obstructive pulmonary disease, unspecified Code(s): J44.9 - Chronic obstructive pulmonary disease, unspecified Status: Chronic Assessment and Plan: As above. Wheezing is persistent. Pulmicort added yesterday. Will change to Albuterol nebs. Continue to follow. Doubt that she is fluid overloaded; Lasix on hold. She was not discharged with lasix in May - will plan to change Lasix to be used as needed. (6) Chronic hypoxemic respiratory failure: Code(s): J96.11 - Chronic respiratory failure with hypoxia Status: Chronic Assessment and Plan: She states that she is normally on 3L but now down to 1L and doing well. Follow. (7) Exocrine pancreatic insufficiency: Code(s): K86.81 - Exocrine pancreatic insufficiency Status: Chronic Assessment and Plan: Stable. Continue Creon. (8) Electrolyte abnormality: Code(s): E87.8 - Other disorders of electrolyte and fluid balance, not elsewhere classified Status: Acute Assessment and Plan: Potassium and Mag level normal today. Continue to monitor and replace electrolytes as needed. (9) Tobacco abuse: Code(s): Z72.0 - Tobacco use Status: Acute Assessment and Plan: She states she quit smoking over 2 years ago. (10) Fall: Code(s): W19.XXXA - Unspecified fall, initial encounter Status: Acute Assessment and Plan: Fall precautions. Continue PT/OT (11) DVT prophylaxis: Code(s): Z29.9 - Encounter for prophylactic measures, unspecified Status: Acute Assessment and Plan: Lovenox Subjective Date/time seen: 06/10/21 11:23 Interval history: 76-year-old female with past medical history significant for osteoporosis, hypertension, dyslipidemia, COPD/emphysema, peripheral neuropathy, iron deficiency anemia, pancreatic insufficiency her for fall and found to have ESBL EColi UTI and CDiff diarrhea. Diarrhea about the same but only one stool today. She still has the cough productive of clear sputum. Eating okay. Nausea better. No CP or SOB. Walking in room with therapy. Wrist pain resolved. Still no hip pain Exam Narrative: AF 98.7 140/80 67 20 91% 1L Gen - NARD lying semi-recumbent in bed Chest - few bibasilar rhonchi with sc
[2021-06-10] MEDS: ERTAPENEM 1 GM/NS 50 ML 1 GM/50 ML BAG IVPB (11:59)
[2021-06-10] MEDS: POTASSIUM CHLORIDE 20 MEQ TABLET 40 MEQ PO (14:35)
[2021-06-10] MEDS: ALBUTEROL SULFATE NEB 2.5 MG/0.5 ML INH INHALATION ×2 (14:41→21:09)
[2021-06-10] MEDS: IPRATROPIUM BR 0.02% INH SOLN 0.5 MG/2.5 ML VIAL INHALATION ×2 (14:42→21:09)
--- NOTE | 2021-06-10 16:45 | PC.NURSE ---
On 06/10/21, the student, Jackie Pruitt, provided care and completed [facility] documentation on this patient. I have reviewed the student's documentation and agree with the findings.
[2021-06-10] MEDS: traZODone HCL 50 MG TABLET 300 MG PO (20:47)
[2021-06-10] MEDS: MELATONIN 5 MG TABLET PO (20:47)
[2021-06-11] VITALS (8 sets, daily range): BP systolic 103; BP diastolic 57; PULSE 81–104; RESP 16–20; TEMP 36.8–36.9; O2SAT 90–96
[2021-06-11] MEDS: ALBUTEROL SULFATE NEB 2.5 MG/0.5 ML INH INHALATION ×3 (03:09→14:02)
[2021-06-11] MEDS: IPRATROPIUM BR 0.02% INH SOLN 0.5 MG/2.5 ML VIAL INHALATION ×3 (03:10→14:02)
[2021-06-11 06:54] LABS: Hematocrit 29.4 % (37.0-47.0); Hemoglobin 8.5 g/dL (12.0-15.0); Mean Corpuscular HGB Conc 28.9 g/dl (32-36); Mean Corpuscular Hemoglobin 27.6 pg (26-34); Mean Corpuscular Volume 95.5 fl (80-100); Mean Platelet Volume 10.2 fl (7.4-10.4); Platelet Count Result 425 k/mm3 (150-375); Red Blood Count 3.08 M/mm3 (4.2-5.4); Red Cell Distribution Width 17.5 % (11.5-14.5); White Blood Count 15.9 K/mm3 (4.5-10.0)
[2021-06-11 07:05] LABS: Anion Gap 4 mmol/L (8-16); Blood Urea Nitrogen 5 mg/dL (7-17); Calcium 8.3 mg/dL (8.4-10.2); Carbon Dioxide 34 mmol/L (22-30); Chloride 98 mmol/L (98-107); Estimated CRCL calculation 75 ml/min; Estimated Glomerular Filt Rate > 60; Glucose 94 mg/dL (65-110); Magnesium 1.5 mg/dL (1.6-2.3); Sodium 136 mmol/L (137-145)
[2021-06-11] MEDS: LIDOCAINE HCL 1% LOCAL INJ 2 ML AMPUL 5 ML INFILTRATE (07:45)
[2021-06-11] MEDS: BUDESONIDE RESPULE NEB 0.5 MG/2 ML AMP INHALATION (08:17)
[2021-06-11] MEDS: PREGABALIN (*CRX) 75 MG CAPSULE 150 MG PO ×2 (10:37→18:45)
[2021-06-11] MEDS: LIPASE/AMYLASE/PROTEASE 12,000 UNITS CAP 2 CAP PO ×3 (10:37→18:45)
[2021-06-11] MEDS: FERROUS SULFATE 324 MG TABLET PO (10:37)
[2021-06-11] MEDS: DULoxetine HCL 60 MG CAPSULE.DR PO (10:38)
[2021-06-11] MEDS: PANTOPRAZOLE 40 MG TABLET PO (10:38)
[2021-06-11] MEDS: FIDAXOMICIN 200 MG TABLET PO (10:38)
[2021-06-11] MEDS: ATORVASTATIN 40 MG TABLET 80 MG PO (10:38)
[2021-06-11] MEDS: FOLIC ACID 1 MG TABLET PO (10:38)
[2021-06-11] MEDS: MAGNESIUM OXIDE 400 MG TABLET PO (10:39)
[2021-06-11] MEDS: ASPIRIN 81 MG CHEWABLE TABLET PO (10:39)
[2021-06-11] MEDS: PROMETHAZINE HCL 12.5 MG TABLET PO (10:39)
[2021-06-11] MEDS: ENOXAPARIN 40 MG/0.4 ML SYRINGE SUB-Q (10:40)
[2021-06-11] MEDS: AZELASTINE HCL NASAL 0.1% 137 MCG/SPR 30 ML BTL 1 SPRAY NASAL (10:40)
[2021-06-11] MEDS: LORATADINE 10 MG TABLET PO (10:40)
[2021-06-11] MEDS: MAGNESIUM SULF 2 GM/WATER 50ML 2 GM/50 ML BAG IVPB (10:57)
[2021-06-11 12:30] LABS: Band Neutrophils Percent 18 % (0-6); Eosinophils Absolute Manual 0.31 K/mm3 (0.02-0.5); Eosinophils Percent Manual 2 % (0-4); Lymphocytes Absolute Manual 3.02 K/mm3 (1.1-4.5); Metamyelocytes Percent 4 %; Monocytes Absolute Manual 0.31 K/mm3 (0.1-0.90); Monocytes Percent Manual 2 % (3-9); Myelocytes Percent 3 %; Neutrophils Absolute Manual 11.13 K/mm3 (1.7-7.2); Neutrophils Percent Manual 52 % (46-73); Total Cells Counted 100
[2021-06-11 12:32] LABS: Platelet Estimate Adequate (Adequate)
[2021-06-11] MEDS: ERTAPENEM 1 GM/NS 50 ML 1 GM/50 ML BAG IVPB (12:57)
--- NOTE | 2021-06-11 13:53 | PM.DS ---
DS: Admitting Diagnosis Discharge Date 06/11/21 Admitting Diagnosis Fall DS: Discharge Diagnosis Discharge Diagnosis (1) Acute UTI: Code(s): N39.0 - Urinary tract infection, site not specified Status: Acute Assessment and Plan: Patient admitted to [address] [place] [address]. UA noted. She was started on Rocephin for UTI. UCx grew ESBL EColi sensitive to ertapenem. Rocephin changed to Ertapenem2. IV access placed for outpatient treatment. (2) C. difficile diarrhea: Code(s): A04.72 - Enterocolitis due to Clostridium difficile, not specified as recurrent Status: Acute Assessment and Plan: Recent hx of Cdiff in May and completed a 10 day course of fidaxomicin. She returns with complaints of recurrent diarrhea. Stool studies positive for CDiff. Fidaxomicin resumed. Diarrhea improving now. Will continue fidaxomicin for a 10 day course as noted by recent IDSA guidelines for first recurrence. Bezlotoxumab not available here. (3) Community acquired pneumonia: Code(s): J18.9 - Pneumonia, unspecified organism Status: Acute Assessment and Plan: CXR on admission showing airspace opacities at the left lower lung zone. Patient was started on Rocephin and azithromycin for pneumonia. She normally is on 3L NC but now down to 1L. BCx NGTD. Changed to Ertapenem as mentioned above. She completed 5 day course of Azithromycin. (4) Contusion of head: Code(s): S00.93XA - Contusion of unspecified part of head, initial encounter Status: Acute Assessment and Plan: Patient had a fall with head trauma. CT of the brain and cervical spine CT both showed no acute findings. Mental status normal. She worked with PT and OT. (5) COPD (chronic obstructive pulmonary disease): Qualifiers: COPD type: unspecified COPD Qualified Code(s): J44.9 - Chronic obstructive pulmonary disease, unspecified Code(s): J44.9 - Chronic obstructive pulmonary disease, unspecified Status: Chronic Assessment and Plan: She did have episode of whezing that improved with neb treatments. (6) Chronic hypoxemic respiratory failure: Code(s): J96.11 - Chronic respiratory failure with hypoxia Status: Chronic Assessment and Plan: She states that she is normally on 3L and her O2 requirement was stable from 1-3L. (7) Exocrine pancreatic insufficiency: Code(s): K86.81 - Exocrine pancreatic insufficiency Status: Chronic Assessment and Plan: Stable. We continued her Creon. (8) Electrolyte abnormality: Code(s): E87.8 - Other disorders of electrolyte and fluid balance, not elsewhere classified Status: Acute Assessment and Plan: Potassium and Mag level normal today. Continue to monitor and replace electrolytes as needed. (9) Tobacco abuse: Code(s): Z72.0 - Tobacco use Status: Acute Assessment and Plan: She states she quit smoking over 2 years ago. (10) Fall: Code(s): W19.XXXA - Unspecified fall, initial encounter Status: Acute Assessment and Plan: Fall precautions instituted and we continued with PT/OT DS: Summary Hospital Course Reason for hospitalization: 76-year-old female with hx of, hypertension, dyslipidemia, COPD/emphysema, peripheral neuropathy, iron deficiency anemia, pancreatic insufficiency here for fall and found to have ESBL EColi UTI and CDiff diarrhea. Please see H&P for details. Hospital Course: Please see above for details of hospital course. Status at Discharge Cognitive/behavioral status at discharge: stable Time Spent with Patient Time attestation: Total time spent providing and/or coordinating discharge services: 35 minutes Time spent: Greater than 30 minutes Exam Narrative: AF 98.2 103/57 82 18 92% Gen - NARD Chest - few bibasilar rhonchi o/w clear; no wheezing CV - RRR S1/S2 Abd - Soft, NT/ND, +BS Ext - No pedal
[2021-06-11] MEDS: SALINE LOCK FLUSH 10 ML IV PUSH (14:00)
[2021-06-11 14:49] LABS: EDCOVIDSCREEN Positive (Negative)
== END 2021-06-11 19:00 | DRG 689 ==
LOC: ANHED 22:54 → ANH3MEDSUR 23:51
PROVIDERS: Admitting Provider Internal Medicine; Emergency Provider Emergency Medicine; PCP Internal Medicine; Visit Provider Internal Medicine
DX: N39.0 Urinary tract infection, site not specified (principal); U07.1 COVID-19; J18.9 Pneumonia, unspecified organism; I50.32 Chronic diastolic (congestive) heart failure; J96.11 Chronic respiratory failure with hypoxia; A04.72 Enterocolitis due to Clostridium difficile, not specified as recurrent; Z16.12 Extended spectrum beta lactamase (ESBL) resistance; G89.29 Other chronic pain; F41.9 Anxiety disorder, unspecified; M19.90 Unspecified osteoarthritis, unspecified site; M25.512 Pain in left shoulder; M25.511 Pain in right shoulder; F03.90 Unspecified dementia, unspecified severity, without behavioral disturbance, psychotic disturbance, mood disturbance, and anxiety; F32.9 Major depressive disorder, single episode, unspecified; M19.012 Primary osteoarthritis, left shoulder; M19.011 Primary osteoarthritis, right shoulder; J43.9 Emphysema, unspecified; K21.9 Gastro-esophageal reflux disease without esophagitis; E78.5 Hyperlipidemia, unspecified; I11.0 Hypertensive heart disease with heart failure; N32.81 Overactive bladder; M81.0 Age-related osteoporosis without current pathological fracture; Z86.73 Personal history of transient ischemic attack (TIA), and cerebral infarction without residual deficits; Z87.891 Personal history of nicotine dependence; S00.93XA Contusion of unspecified part of head, initial encounter; W18.30XA Fall on same level, unspecified, initial encounter; Y93.9 Activity, unspecified; Y92.099 Unspecified place in other non-institutional residence as the place of occurrence of the external cause; Y99.9 Unspecified external cause status; G62.9 Polyneuropathy, unspecified; D50.9 Iron deficiency anemia, unspecified; K86.81 Exocrine pancreatic insufficiency; E87.8 Other disorders of electrolyte and fluid balance, not elsewhere classified; G25.81 Restless legs syndrome; B96.20 Unspecified Escherichia coli [E. coli] as the cause of diseases classified elsewhere
CPT/HCPCS: 36415; 36569; 70450; 71045; 72125; 73110; 74019; 80048; 80053; 80069; 81001; 83605; 83735; 85025; 85610; 85730; 87040; 87045; 87077; 87086; 87088; 87186; 87324; 87426; 87427; 94640; 96361; 96365; 96367; 96375; 97110; 97162; 97165; 97530; 97535; 99285; A9270; C1751; C9803; G0378; J0456; J0696; J1335; J1650; J3475; J3480; J7030

== ENCOUNTER 2021-06-26 02:35 | Inpatient (IN) | payer MEDICARE, MEDICAID, SELFPAY ==
[2021-06-26] VITALS (38 sets, daily range): BP systolic 86–126; BP diastolic 43–90; PULSE 78–117; RESP 12–36; TEMP 36.7–37.1; O2SAT 92–100; BMI 31.0
--- NOTE | ~2021-06-26 | CT_ITS ---
EXAMINATION: CTA chest PE protocol EXAM DATE: 06/27/2021 11:48 INDICATION: COVID, shortness of air. Patient being evaluated for lung mass . TECHNIQUE: Spiral CTA of the chest (pulmonary arteries) was performed with 100 cc Omnipaque 350 intr avenous contrast injection. Images were acquired during the pulmonary arterial phase. Coronal maxi mum intensity projection 3D-reconstructions were created by the technologist on dedicated workstation . Axial, coronal and sagittal reformatted images were reviewed. The dose-length product (DLP) for t his examination was 677.30 mGy-cm. The exposure was tailored according to patient size (auto mA exp osure control), and iterative reconstruction (ASIR) was used as additional dose reduction technique. Comparison is made to prior examination from 04/17/2021, 05/11/2020. FINDINGS: Absence of enhancement in a subsegmental right upper lobe pulmonary artery and filling defe ct in a subsegmental right lower lobe pulmonary artery. These are indicated on axial sequence images 50-55, 105-106. Low clot burden. There is of attenuation in the left basilar segmental pulmonary from respiratory motion, these regions not confidently evaluated. The main, central pulmonary arteries are dilated which can indicate elevated pulmonary arterial press ure, pulmonary arterial hypertension. There is cardiomegaly. There is dependent groundglass opacity a nd interlobular septal thickening, most consistent with mild pulmonary edema superimposed on mild chr onic interstitial lung disease. Superimposed pneumonia not excludable. No thoracic aortic dissection. Elevated right hemidiaphragm with adjacent atelectasis. There are no pleural or pericardial effusions . Tracheobronchial tree is patent. Mild reactive right hilar lymph nodes. There is no pneumothor ax. No evidence of coronary arterial calcification. Upper abdomen is unremarkable. The bones are unremarkable. There is cervical fusion hardware. IMPRESSION: 1. Two tiny, subsegmental right-sided pulmonary emboli identified. 2. Findings consistent with CHF exacerbation. Can't exclude infection. 3. Mild interstitial lung disease. 4. Pulmonary arterial hypertension. 5. Elevated right hemidiaphragm, adjacent atelectasis. I discussed pulmonary emboli with Humera Mar MD at 06/27/2021 13:05 CDT. Reviewed, dictated and finalized at location A.
--- NOTE | ~2021-06-26 | CT_ITS ---
EXAMINATION: CT brain wo [facility] EXAM DATE: 06/27/2021 11:48 INDICATION: Fall, head injury. TECHNIQUE: Spiral CT of the head was performed without contrast. Axial, coronal and sagittal images were reviewed. The dose-length product (DLP) for this examination was 605.33 mGy-cm. The exposure w as tailored according to patient size, and iterative reconstruction (ASIR) was used as additional dos e reduction technique. Comparison is made to prior examination from 06/06/2021. FINDINGS: There is no acute intraparenchymal hemorrhage. No evidence of intraparenchymal brain mass lesion. No evidence of acute infarction. Please note that initial head CT has limited sensitivity f or small or acute infarctions. There is mild to moderate periventricular and subcortical hypodensity, nonspecific but probably related to small vessel ischemic disease. There is mild prominence of the sulci and ventricles related to cerebral atrophy. There is intracranial carotid arteriosclerosis. There are no extra-axial collections. There is no mass effect or midline shift. Patient has had bi lateral ocular lens surgery. Soft tissue is unremarkable. The imaged superior portion of left maxil sunitha sinus is opacified. IMPRESSION: 1. No acute intracranial findings. 2. Chronic age related findings. Reviewed, dictated and finalized at location A.
--- NOTE | ~2021-06-26 | XR_ITS ---
EXAMINATION: XR chest 1V portable EXAM DATE: 06/26/2021 02:59 INDICATION: Shortness of air. TECHNIQUE: Portable AP frontal chest x-ray was obtained. Comparison is made to prior examination from 06/06/2021. FINDINGS: There is cardiomegaly and pulmonary vascular congestion. Moderate amount of bilateral ill-d efined airspace disease with some air bronchograms on the left. Probably edema and/or pneumonia. Plea se clinically correlate. No pneumothorax. Possible small pleural effusions. There are bony degenerati ve changes. Cervical fusion hardware. IMPRESSION: 1. Cardiomegaly, congestion. 2. Moderate bilateral edema and/or pneumonia. Consider testing for COVID 19. Reviewed, dictated and finalized at location A.
--- NOTE | 2021-06-26 02:54 | ECG_ITS ---
Measurements Intervals [place] Rate: 117 P: 56 PA: 161 QRS: 36 QRSD: 86 T: 29 QT: 311 QTc: 434 Interpretive Statements SINUS TACHYCARDIA INCOMPLETE RIGHT BUNDLE BRANCH BLOCK LOW QRS VOLTAGE IN PRECORDIAL LEADS CONSIDER INFERIOR INFARCT, AGE INDETERMINATE BASELINE ARTIFACT- V1, V4-V6 ABNORMAL ECG Electronically Signed On 06-26-2021 6:34:01 CDT by Kole Carey D.O.
[2021-06-26 03:14] LABS: Alveolar/Arterial O2 Gradient 29.4 mmHg; Base Excess ABG 13.1 mEq/l (+/-2.0); Fractional Inspired Oxygen 36 %; HCO3 ABG 43.2 mEq/l (22.0-26.0); Oxygen Content ABG 13.6 %vol (16.0-22.0); Oxyhemoglobin 96.2 % THb (90.0-100.0); PO2 ABG 111.5 mmHg (80.0-100.0); Total Hemoglobin 9.9 g/dL (12.0-18.0)
[2021-06-26 03:15] LABS: pH ABG 7.254 (7.350-7.450)
[2021-06-26 03:16] LABS: Device HIGH FLOW NASAL CANN; Modified Allen's Test Pass; PCO2 ABG 99.8 mmHg (35.0-45.0); Site Drawn RIGHT RADIAL
[2021-06-26 04:35] LABS: Basophils Absolute Auto 0.1 K/mm3 (0.0-0.1); Basophils Percent Auto 0.6 % (0.2-1.2); Eosinophils Absolute Auto 0.6 K/mm3 (0-0.3); Hematocrit 29.3 % (37.0-47.0); Hemoglobin 8.4 g/dL (12.0-15.0); Immature Granulocyte Percent A 1.1 % (0-0.5); Lymphocytes Absolute Auto 1.75 K/mm3 (0.9-3.2); Mean Corpuscular HGB Conc 28.7 g/dl (32-36); Mean Corpuscular Hemoglobin 27.9 pg (26-34); Mean Corpuscular Volume 97.3 fl (80-100); Mean Platelet Volume 11.3 fl (7.4-10.4); Monocytes Absolute Auto 0.8 K/mm3 (0.1-0.6); Monocytes Percent Auto 8.7 % (2.6-8.5); Neutrophils Absolute Auto 5.5 K/mm3 (1.3-6.7); Neutrophils Percent Auto 62.6 % (45.5-73.1); Platelet Count Result 255 k/mm3 (150-375); Red Blood Count 3.01 M/mm3 (4.2-5.4); Red Cell Distribution Width 17.8 % (11.5-14.5); White Blood Count 8.7 K/mm3 (4.5-10.0)
[2021-06-26 04:45] LABS: INR 1.1; Prothrombin Time 13.6 Seconds (11.1-14.7)
[2021-06-26 04:46] LABS: Partial Thromboplastin Time 41.8 SECONDS (22.3-36.8)
[2021-06-26 04:48] LABS: Alanine Aminotransferase 11 U/L (4-35); Albumin Level 3.5 g/dL (3.5-5.1); Alkaline Phosphatase 65 U/L (38-126); Aspartate Amino Transferase 21 U/L (14-36); Bilirubin,Total 0.2 mg/dL (0.2-1.3); Blood Urea Nitrogen 10 mg/dL (7-17); Calcium 8.7 mg/dL (8.4-10.2); Carbon Dioxide > 40 mmol/L (22-30); Chloride 93 mmol/L (98-107); Estimated Glomerular Filt Rate > 60; Glucose 128 mg/dL (65-110); Potassium 4.5 mmol/L (3.4-5.0); Sodium 140 mmol/L (137-145)
[2021-06-26 04:52] LABS: Anisocytosis 1+ (NORMAL); Hypochromasia 1+ (NORMAL); Platelet Estimate Adequate (Adequate)
[2021-06-26 04:53] LABS: NT Pro B Type Natriuretic Pept 158 pg/mL (5-100); Ovalocytes 1+ (NORMAL); Stomatocytes 1+ (NORMAL)
--- NOTE | 2021-06-26 05:25 | ED.GENADULT ---
HPI - General Adult General Chief complaint: Shortness of Breath/Dyspnea Stated complaint: covid + low o2 sat Time Seen by Provider: 06/26/21 02:50 History of Present Illness HPI narrative: Patient is a 76-year-old female who presents ER with low oxygen saturation. Patient wears 3 L chronically. She was at the residential and they could not get her oxygen into the 90s with 4 L of O2 so they contacted EMS. After applying 6 L of nasal cannula oxygen patient's oxygen saturations improved into the upper 90s. Patient is awake but not particularly alert or oriented. She has coarse/wet breath sounds. She is on day 14 of a COVID-19 infection. She is also concurrently being treated for C. difficile colitis and UTI. Related Data Home Medications Medication Instructions Recorded Confirmed Atrovent HFA 2 puff INHALATION QID 04/03/21 06/07/21 azelastine 137 mcg INTRANASAL Q12H 04/03/21 06/07/21 omeprazole 40 mg PO DAILY 04/03/21 06/07/21 hydrocortisone 06/26/21 Allergies Allergy/AdvReac Type Severity Reaction Status Date / Time No Known Allergies Allergy Unknown Verified 06/26/21 02:47 Review of Systems Review of Systems: ROS unobtainable: Yes unobtainable due to mental status PMFSH Past Medical History Medical History Anemia Anxiety Arthritis Back pain Bilateral shoulder pain CHF (congestive heart failure) Diastolic COPD (chronic obstructive pulmonary disease) On home O2 3L Degenerative joint disease of both hips Dementia Depression 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 Emphysema of lung Exocrine pancreatic insufficiency GERD (gastroesophageal reflux disease) GI bleed H/O ulcer disease Herniated disc HLD (hyperlipidemia) HTN (hypertension) Migraine OAB (overactive bladder) Osteoporosis Pancreatitis Pneumonia Prediabetes PVD (peripheral vascular disease) TIA (transient ischemic attack) UTI (urinary tract infection) Wears dentures Surgical History Surgical History H/O neck surgery 2001 History of back surgery 1999 History of bladder suspension procedure History of cardiac cath History of cholecystectomy History of hysterectomy History of lumbar fusion x2 History of tonsillectomy History of tubal ligation History of vascular surgery lt leg arteroplasty Family History Family History Father Patient's father is in good health Family history of Parkinson's disease Sibling Patient's brother is in good health Mother Family history of chronic obstructive pulmonary disease Family history of pancreatic cancer Social History Social History Smoking packs per day: 1 Smoking cigarettes per day: 20.0 Years smoked: 30 Smoking pack-years: 30.00 Smoking status: Former smoker Tobacco type: cigarettes Smoking end date: 06/02/19 Alcohol intake: never Substance use: never Additional living arrangements comments: [facility] Gender identity (if verbalized by the patient): Female Spiritual care concerns: No Exam Narrative: GENERAL: Chronically ill-appearing, obese, and in moderate distress. HEAD: Normocephalic, atraumatic. ENT: Mucous membranes moist. CHEST: Coarse rales bilaterally and in moderate respiratory distress. Placed on BiPAP. HEART: Regular rate and rhythm. Normal peripheral pulses. ABDOMEN: Soft, nontender, nondistended. EXTREMITIES: Normal range of motion. 2+ edema. SKIN: Warm, dry, no rash. NEURO: No focal deficits. Alert and oriented x1. PSYCH: Normal mood and affect. Course Reevaluation(s) Reevaluation #1: Patient much more awake and alert after application of BiPAP. She is oriented x3. We will recheck patient's ABG and plan admission to the hospitalist service. Vital Signs Vital signs:
[2021-06-26 05:47] LABS: Alveolar/Arterial O2 Gradient 99.2 mmHg; Base Excess ABG 16.7 mEq/l (+/-2.0); Carboxyhemoglobin 0.2 % THb (0-2.0); Fractional Inspired Oxygen 40 %; HCO3 ABG 46.4 mEq/l (22.0-26.0); Methemoglobin ABG 0.5 %THb (0-1.5); Oxygen Content ABG 12.8 %vol (16.0-22.0); Oxygen Saturation ABG 92.4 % (95.0-100.0); PO2 ABG 74.8 mmHg (80.0-100.0); PO2 FiO2 Ratio Arterial Blood 1.87 %; Reduced Hemoglobin 7.3 %THb (0-5.0); Total Hemoglobin 9.8 g/dL (12.0-18.0)
[2021-06-26] MEDS: DEXAMETHASONE SOD PHOS INJ 4 MG/ML VIAL 6 MG IV PUSH (05:47)
[2021-06-26 05:48] LABS: pH ABG 7.299 (7.350-7.450)
--- NOTE | 2021-06-26 05:48 | PM.IMHP ---
H&P: HPI History of Present Illness Date/Time: 06/26/21 05:48 Chief Complaint: Low oxygen saturations Narrative: 76-year-old female with past medical history C diff colitis, chronic hypoxic hypercarbic respiratory failure, interstitial lung disease, COPD, exocrine pancreatic insufficiency, dementia and recent diagnosis of COVID 19 who presented to the ER from [facility] via EMS due to low oxygen saturations. The patient had been hospitalized for C diff colitis and UTI. She was discharged at that time on Dificid and ertapenem. She has completed both course of antibiotics and denies having any further diarrhea. However the patient is a poor historian and is only oriented x1-2. Patient has had waxing and waning mental status since arrival to the ER and initially was alert oriented times 2-3. The patient is usually on 3 L nasal cannula at all times. At the long-term the patient was satting in the low 80s on her usual home O2. She tested positive for COVID-19 on 06/11/2021 on her routine screening for long-term placement. She had not been having any increased shortness of breath or increase in her chronic cough at that time. She does admit having increased shortness of breath and cough currently. She denies having any recent fevers. She reports that dry mouth. She does not recall being told she had COVID recently. She was afebrile on arrival to the ER. In route to the ER she was placed on 6 L nasal cannula. ABGs on arrival demonstrated significant hypercapnic respiratory failure with normalization of patient's PO2. Patient was placed on BiPAP 18/80 in the ER with improvement in her respiratory status. ER staff initially reported the patient had crackles on exam but at the time of my evaluation the patient decreased breath sounds without any further evidence of crackles. Review of Systems Review of Systems: 12 systems were reviewed with pertinent positives and negatives per HPI. Except as documented in the HPI, all other systems were reviewed and are negative. However limited as the patient is a poor historian is only oriented times 2 at the time of my evaluation. Her answers were unreliable. [facility] Past Medical History Medical History Anemia Anxiety Arthritis Back pain Bilateral shoulder pain CHF (congestive heart failure) Diastolic COPD (chronic obstructive pulmonary disease) On home O2 3L Degenerative joint disease of both hips Dementia Depression 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 Emphysema of lung Exocrine pancreatic insufficiency GERD (gastroesophageal reflux disease) GI bleed H/O ulcer disease Herniated disc HLD (hyperlipidemia) HTN (hypertension) Migraine OAB (overactive bladder) Osteoporosis Pancreatitis Pneumonia Prediabetes PVD (peripheral vascular disease) TIA (transient ischemic attack) UTI (urinary tract infection) Wears dentures Surgical History Surgical History H/O neck surgery 2001 History of back surgery 1999 History of bladder suspension procedure History of cardiac cath History of cholecystectomy History of hysterectomy History of lumbar fusion x2 History of tonsillectomy History of tubal ligation History of vascular surgery lt leg arteroplasty Family History Family History Father Family history of Parkinson's disease Sibling Patient's brother is in good health Mother Family history of chronic obstructive pulmonary disease Family history of pancreatic cancer Social History Social History (Updated 06/26/21 @ 06:41 by Ayesha Carrillo DO) Social History: Code status: Full code (per EMR) Smoking packs per day: 1 Smoking cigarettes per day: 20.0 Years smoked: 30 Smoking pack-years: 30.00 Smoking status: Former smoker Tobacco type
[2021-06-26 05:49] LABS: Device BIPAP; Modified Allen's Test Pass; PCO2 ABG 96.7 mmHg (35.0-45.0); Site Drawn RIGHT RADIAL
[2021-06-26 05:50] LABS: Expiratory Pressure 8 cmH2O; Inspiratory Pressure 18 cmH2O
--- NOTE | 2021-06-26 06:42 | PC.NURSE ---
called respiratory to transport patient.
--- NOTE | 2021-06-26 06:57 | ADMGEN ---
This patient, Gabbi Champagne, was admitted to IMU Room 203-01. Patient/family oriented to hospital policies and general routines including ID bracelet, bed and alarms, visiting hours, pain management, procedures, bathroom and other care routines, personal items, smoking policy, room service/diet, and visiting hours. Information on how to activate the Rapid Response Team has been discussed. Patient/Family are encouraged to report perceived risks to care and to ask questions if they do not understand what they are told or what they should do.
[2021-06-26 08:14] LABS: Alveolar/Arterial O2 Gradient 99.3 mmHg; Base Excess ABG 14.8 mEq/l (+/-2.0); Carboxyhemoglobin 0.3 % THb (0-2.0); Fractional Inspired Oxygen 40 %; HCO3 ABG 43.7 mEq/l (22.0-26.0); Methemoglobin ABG 0.7 %THb (0-1.5); Oxygen Content ABG 12.3 %vol (16.0-22.0); Oxygen Saturation ABG 94.7 % (95.0-100.0); Oxyhemoglobin 93.3 % THb (90.0-100.0); PO2 ABG 83.9 mmHg (80.0-100.0); Reduced Hemoglobin 5.7 %THb (0-5.0); Total Hemoglobin 9.3 g/dL (12.0-18.0)
[2021-06-26 08:18] LABS: PCO2 ABG 88.7 mmHg (35.0-45.0)
[2021-06-26 08:19] LABS: Device BIPAP; Modified Allen's Test Pass; Site Drawn LEFT RADIAL
[2021-06-26 08:20] LABS: Expiratory Pressure 8 cmH2O; Inspiratory Pressure 18 cmH2O
[2021-06-26 08:46] LABS: Lactate Dehydrogenase 341 U/L (313-618)
[2021-06-26] MEDS: REMDESIVIR 200 MG/NS 250 ML 200 MG/250 ML BAG 250 MG IVPB (09:51)
[2021-06-26] MEDS: ENOXAPARIN 40 MG/0.4 ML SYRINGE SUB-Q (12:25)
[2021-06-26] MEDS: FUROSEMIDE INJ 40 MG/4 ML VIAL IV PUSH (13:28)
--- NOTE | 2021-06-26 14:51 | PM.IMPN ---
Progress Note: A&P Assessment and Plan (1) Acute on chronic respiratory failure with hypoxia and hypercapnia: Code(s): J96.21 - Acute and chronic respiratory failure with hypoxia; J96.22 - Acute and chronic respiratory failure with hypercapnia Status: Acute Assessment and Plan: Patient has acute on chronic hypercapnic hypoxic respiratory failure. Respiratory failure due to a combination of COPD complicated by underlying COVID pneumonia. The there is evidently a component of COPD exacerbation given patient's hypercapnic respiratory failure. The patient of on BiPAP 18/8 with a backup rate of 20 is pulling tidal volumes between 250 and 450. Patient has been started on Decadron by your staff. She has not yet received any nebulizer treatments. Scheduled albuterol and Atrovent nebulizers have been ordered. . (2) Pneumonia due to 2019-nCoV: Onset Date: 06/11/21 Code(s): U07.1 - COVID-19; J12.82 - Pneumonia due to coronavirus disease 2019 Status: Acute Assessment and Plan: The patient is at day 14 from diagnosis of COVID and is technically beyond the window for Remdesivir but given her clinical condition Remdesivir certainly cannot hurt in may help with patient's prognosis. Although overall prognosis is guarded given the patient's chronic deconditioning and respiratory status. Will continue BiPA and repeat ABG at 7:00 a.m.. Patient is be placed in IMU for close monitoring. Patient is on droplet and contact isolation. Will trend inflammatory markers. Patient's pneumonia is most likely due to COVID and will try to avoid additional antibiotic therapy given the patient's significant history of recurrent C diff in the recent past (3) Altered mental status: Qualifiers: Altered mental status type: disorientation Qualified Code(s): R41.0 - Disorientation, unspecified Code(s): R41.82 - Altered mental status, unspecified Status: Acute Assessment and Plan: Unknown baseline menta status. Currently patient awake, alert and confused. She moves all extremities spontaneously. There is a history of falls. Normal mental status reported on 06/11/2021 evaluation. Fall precautions. Neurology evaluation. (4) Anemia: Qualifiers: Anemia type: unspecified type Qualified Code(s): D64.9 - Anemia, unspecified Code(s): D64.9 - Anemia, unspecified Status: Acute Assessment and Plan: Anemia, normochromic, normocytic. MOderate and well tolerated. Check iron, folate, B12. Check stool for occult blood. Obtain previous colonoscopy reports if available. (5) Exocrine pancreatic insufficiency: Code(s): K86.81 - Exocrine pancreatic insufficiency Status: Chronic Assessment and Plan: Continue creon (6) Tobacco abuse: Code(s): Z72.0 - Tobacco use Status: Acute Assessment and Plan: Ex chronic smoker, she stopped 2 years ago. (7) DVT prophylaxis: Code(s): Z29.9 - Encounter for prophylactic measures, unspecified Status: Acute Assessment and Plan: Lovenox 40 mg subQ daily. Subjective Date/time seen: 06/26/21 14:51 76-year-old female with past medical history C diff colitis, chronic hypoxic hypercarbic respiratory failure, interstitial lung disease, COPD, exocrine pancreatic insufficiency, dementia and recent diagnosis of COVID 19 who presented to the ER from [facility] via EMS due to low oxygen saturations. The patient had been hospitalized for C diff colitis and UTI. She was discharged at that time on Dificid and ertapenem. She has completed both course of antibiotics and denies having any further diarrhea. However the patient is a poor historian and is only oriented x1-2. In route to the ER she was placed on 6 L nasal cannula. ABGs on arrival demonstrated significant hypercapnic respiratory failure with normalization of patient's PO2. Patient was placed on BiPAP 18/80 in the ER with imp
[2021-06-26 14:55] LABS: Alveolar/Arterial O2 Gradient 155.8 mmHg; Base Excess ABG 12.1 mEq/l (+/-2.0); Fractional Inspired Oxygen 40 %; HCO3 ABG 39.3 mEq/l (22.0-26.0); Oxygen Content ABG 10.8 %vol (16.0-22.0); Oxyhemoglobin 82.2 % THb (90.0-100.0); PO2 ABG 50.1 mmHg (80.0-100.0); PO2 FiO2 Ratio Arterial Blood 1.25 %; Total Hemoglobin 9.3 g/dL (12.0-18.0); pH ABG 7.373 (7.350-7.450)
[2021-06-26 14:58] LABS: Device BIPAP; Modified Allen's Test Pass; Oxygen Saturation ABG 82.9 % (95.0-100.0); Site Drawn LEFT RADIAL
[2021-06-26 14:59] LABS: Expiratory Pressure 8 cmH2O; Inspiratory Pressure 18 cmH2O
[2021-06-26] MEDS: IPRATROPIUM BR 0.02% INH SOLN 0.5 MG/2.5 ML VIAL INHALATION (21:14)
[2021-06-26] MEDS: ALBUTEROL SULFATE NEB 2.5 MG/0.5 ML INH 5 MG INHALATION (21:14)
[2021-06-27] VITALS (27 sets, daily range): BP systolic 110–144; BP diastolic 64–84; PULSE 71–110; RESP 12–26; TEMP 36.4–37.3; O2SAT 90–100
[2021-06-27] MEDS: ALBUTEROL SULFATE NEB 2.5 MG/0.5 ML INH 5 MG INHALATION ×3 (02:45→14:32)
[2021-06-27] MEDS: IPRATROPIUM BR 0.02% INH SOLN 0.5 MG/2.5 ML VIAL INHALATION ×3 (02:45→14:32)
[2021-06-27 04:50] LABS: Hematocrit 24.2 % (37.0-47.0); Hemoglobin 7.4 g/dL (12.0-15.0); Mean Corpuscular HGB Conc 30.6 g/dl (32-36); Mean Corpuscular Hemoglobin 27.7 pg (26-34); Mean Corpuscular Volume 90.6 fl (80-100); Platelet Count Result 253 k/mm3 (150-375); Red Blood Count 2.67 M/mm3 (4.2-5.4); Red Cell Distribution Width 17.3 % (11.5-14.5)
[2021-06-27 05:08] LABS: Alanine Aminotransferase 11 U/L (4-35); Blood Urea Nitrogen 12 mg/dL (7-17); CRP 8.1 mg/dL (<1.0); Calcium 8.4 mg/dL (8.4-10.2); Carbon Dioxide > 40 mmol/L (22-30); Chloride 87 mmol/L (98-107); Estimated CRCL calculation 64 ml/min; Estimated Glomerular Filt Rate > 60; Glucose 101 mg/dL (65-110); Lactate Dehydrogenase 312 U/L (313-618); Potassium 3.8 mmol/L (3.4-5.0); Sodium 137 mmol/L (137-145)
[2021-06-27 05:14] LABS: INR 1.1; Prothrombin Time 14.3 Seconds (11.1-14.7)
[2021-06-27] MEDS: FUROSEMIDE INJ 40 MG/4 ML VIAL IV PUSH (08:04)
[2021-06-27] MEDS: ENOXAPARIN 40 MG/0.4 ML SYRINGE SUB-Q (08:05)
[2021-06-27] MEDS: REMDESIVIR 100 MG/NS 250 ML 100 MG/250 ML BAG 250 MG IVPB (10:53)
[2021-06-27 13:48] LABS: INR 1.1; Prothrombin Time 14.2 Seconds (11.1-14.7)
[2021-06-27 13:49] LABS: Partial Thromboplastin Time 51.4 SECONDS (22.3-36.8)
[2021-06-27] MEDS: HEPARIN SOD/D5W 100 UNITS/ML 25,000 UNITS/250 ML BAG 11 UNITS IV CONT (14:19)
[2021-06-27] MEDS: HEPARIN SODIUM 5,000 UNITS/ML VIAL 5000 UNITS IV PUSH (14:20)
--- NOTE | 2021-06-27 18:36 | PM.IMPN ---
Progress Note: A&P Assessment and Plan (1) Acute on chronic respiratory failure with hypoxia and hypercapnia: Code(s): J96.21 - Acute and chronic respiratory failure with hypoxia; J96.22 - Acute and chronic respiratory failure with hypercapnia Status: Acute Assessment and Plan: Patient has acute on chronic hypercapnic hypoxic respiratory failure. Two small pulmonary emboli were identified on the right lung on 06/27/2021. In the setting of COVID pneumonia we will treat with heparin drip. Respiratory failure due to a combination of COPD complicated by underlying COVID pneumonia. The there is evidently a component of COPD exacerbation given patient's hypercapnic respiratory failure. The patient has been weaned to nasal canula. . (2) Pneumonia due to 2019-nCoV: Onset Date: 06/11/21 Code(s): U07.1 - COVID-19; J12.82 - Pneumonia due to coronavirus disease 2019 Status: Acute Assessment and Plan: The patient is at day 14 from diagnosis of COVID and is technically beyond the window for Remdesivir. Given clinical presentation she was appropriately started on remdesivir. significant improvement of respiratory status overnight. We will continue IV steroids and baricitinib. (3) Altered mental status: Qualifiers: Altered mental status type: disorientation Qualified Code(s): R41.0 - Disorientation, unspecified Code(s): R41.82 - Altered mental status, unspecified Status: Acute Assessment and Plan: Unknown baseline mental status. Currently patient awake, alert and confused. She moves all extremities spontaneously. There is a history of falls. Normal mental status reported on 06/11/2021 evaluation. Fall precautions. Neurology evaluation. (4) Anemia: Qualifiers: Anemia type: unspecified type Qualified Code(s): D64.9 - Anemia, unspecified Code(s): D64.9 - Anemia, unspecified Status: Acute Assessment and Plan: Anemia, normochromic, normocytic. MOderate and well tolerated. Check iron, folate, B12. Check stool for occult blood. Obtain previous colonoscopy reports if available. (5) Exocrine pancreatic insufficiency: Code(s): K86.81 - Exocrine pancreatic insufficiency Status: Chronic Assessment and Plan: Continue creon (6) Tobacco abuse: Code(s): Z72.0 - Tobacco use Status: Acute Assessment and Plan: Ex chronic smoker, she stopped 2 years ago. (7) DVT prophylaxis: Code(s): Z29.9 - Encounter for prophylactic measures, unspecified Status: Acute Assessment and Plan: Currently on heparin therapeutic dose for the management of pulmonary emboli. Additional Plan P Subjective Date/time seen: 06/27/21 11:36 S: Patient is examined at the bedside. She was weaned to 3 liters nasal canula. Head CT and pulmonary angiogram were done today. Review of Systems Review of Systems: ROS unobtainable: Yes unobtainable due to mental status and other Exam Narrative: PHYSICAL EXAM: WEIGHT 83 kg BMI General: Chronically ill-appearing, obese and confused. HEENT: BReathing comfortably on nasal canula, mucous membranes are dry, edentulous in upper and lower jaw, pupils are equal and reactive with lens implants noted, head is normocephalic atraumatic, large neck circumference Respiratory: Decreased breath sounds bilaterally, no increased work of breathing Cardiovascular: Sinus tachycardia, 2+ bilateral radial pulses, 30 palpable pedal pulses Gastrointestinal: Soft, nontender, large umbilical hernia easily reducible, normoactive bowel sounds Skin: Generalized pallor, non jaundice Musculoskeletal: Extremities well perfused, less than 2nd cap refill Neurological: Alert and oriented times 1-2, speech is clear but slow, patient was able to lift her legs from the bed to help remove her socks, no localizing neurologic deficits noted on limited exam Psychiatric: Pleasantly confused, cooperative : Incontinent of urine
[2021-06-27 21:08] LABS: Partial Thromboplastin Time 60.2 SECONDS (22.3-36.8)
[2021-06-27] MEDS: HEPARIN SODIUM 5,000 UNITS/ML VIAL 2500 UNITS IV PUSH (21:19)
[2021-06-28] VITALS (19 sets, daily range): BP systolic 104–146; BP diastolic 54–92; PULSE 77–97; RESP 16–27; TEMP 36.4–37.1; O2SAT 92–100; BMI 29.8
[2021-06-28] MEDS: ALBUTEROL SULFATE NEB 2.5 MG/0.5 ML INH 5 MG INHALATION ×4 (01:41→21:03)
[2021-06-28] MEDS: IPRATROPIUM BR 0.02% INH SOLN 0.5 MG/2.5 ML VIAL INHALATION ×4 (01:42→21:03)
[2021-06-28 04:50] LABS: Basophils Percent Auto 0.4 % (0.2-1.2); Eosinophils Percent Auto 0.1 % (0-4.4); Hematocrit 25.5 % (37.0-47.0); Hemoglobin 8.1 g/dL (12.0-15.0); Immature Granulocyte Absolute 0.04 K/mm3 (0.00-0.031); Immature Granulocyte Percent A 0.6 % (0-0.5); Lymphocytes Absolute Auto 1.94 K/mm3 (0.9-3.2); Lymphocytes Percent Auto 27.8 % (18.3-44.2); Mean Corpuscular HGB Conc 31.8 g/dl (32-36); Mean Corpuscular Hemoglobin 28.2 pg (26-34); Mean Corpuscular Volume 88.9 fl (80-100); Mean Platelet Volume 11.4 fl (7.4-10.4); Monocytes Absolute Auto 0.7 K/mm3 (0.1-0.6); Monocytes Percent Auto 9.7 % (2.6-8.5); Neutrophils Absolute Auto 4.3 K/mm3 (1.3-6.7); Neutrophils Percent Auto 61.4 % (45.5-73.1); Platelet Count Result 302 k/mm3 (150-375); Red Blood Count 2.87 M/mm3 (4.2-5.4); Red Cell Distribution Width 17.4 % (11.5-14.5)
[2021-06-28 05:05] LABS: Blood Urea Nitrogen 14 mg/dL (7-17); Calcium 8.3 mg/dL (8.4-10.2); Carbon Dioxide > 40 mmol/L (22-30); Chloride 87 mmol/L (98-107); Estimated CRCL calculation 63 ml/min; Estimated Glomerular Filt Rate > 60; Glucose 115 mg/dL (65-110); Potassium 2.9 mmol/L (3.4-5.0); Sodium 138 mmol/L (137-145)
[2021-06-28 05:09] LABS: Iron 44 ug/dL (37-170)
[2021-06-28 05:19] LABS: Percent Iron Saturation 22 % (20-50)
[2021-06-28 08:26] LABS: INR 1.1; Prothrombin Time 14.3 Seconds (11.1-14.7)
[2021-06-28 08:29] LABS: Alanine Aminotransferase 11 U/L (4-35)
[2021-06-28] MEDS: FUROSEMIDE INJ 40 MG/4 ML VIAL IV PUSH (12:33)
[2021-06-28] MEDS: REMDESIVIR 100 MG/NS 250 ML 100 MG/250 ML BAG 250 MG IVPB (12:34)
--- NOTE | 2021-06-28 15:13 | PM.IMPN ---
Progress Note: A&P Assessment and Plan (1) Acute on chronic respiratory failure with hypoxia and hypercapnia: Code(s): J96.21 - Acute and chronic respiratory failure with hypoxia; J96.22 - Acute and chronic respiratory failure with hypercapnia Status: Acute Assessment and Plan: Patient has impproving acute on chronic hypercapnic hypoxic respiratory failure. Two small pulmonary emboli were identified on the right lung on 06/27/2021. In the setting of COVID pneumonia we will treat with heparin drip; given significant improvement, we are switching to lovenox therapeutic dose today. Respiratory failure due to a combination of COPD complicated by underlying COVID pneumonia. The there is evidently a component of COPD exacerbation given patient's hypercapnic respiratory failure. The patient has been weaned to nasal canula and has been saturating well on 3 liters of oxygen overnight. (2) Pneumonia due to 2019-nCoV: Onset Date: 06/11/21 Code(s): U07.1 - COVID-19; J12.82 - Pneumonia due to coronavirus disease 2019 Status: Acute Assessment and Plan: The patient is at day 16 from diagnosis of COVID and is technically beyond the window for Remdesivir. Given clinical presentation she was appropriately started on remdesivir. significant improvement of respiratory status overnight. We will continue IV steroids and baricitinib. Stop remdesivir. (3) Altered mental status: Qualifiers: Altered mental status type: disorientation Qualified Code(s): R41.0 - Disorientation, unspecified Code(s): R41.82 - Altered mental status, unspecified Status: Acute Assessment and Plan: Unknown baseline mental status. Currently patient awake, alert and confused. She moves all extremities spontaneously. There is a history of falls. Normal mental status reported on 06/11/[address] unremarkable. Fall precautions. Neurology evaluation. (4) Anemia: Qualifiers: Anemia type: unspecified type Qualified Code(s): D64.9 - Anemia, unspecified Code(s): D64.9 - Anemia, unspecified Status: Acute Assessment and Plan: Anemia, normochromic, normocytic. Moderate and well tolerated. Iron stores adequate; folate, B12 are pending. Hemoccult + for blood. Obtain previous colonoscopy reports if available. GI consult. Hb stable at 8.1. There is no indication for blood transfusion. We will type the patient for our records. (5) Exocrine pancreatic insufficiency: Code(s): K86.81 - Exocrine pancreatic insufficiency Status: Chronic Assessment and Plan: Continue creon (6) Tobacco abuse: Code(s): Z72.0 - Tobacco use Status: Acute Assessment and Plan: Ex chronic smoker, she stopped 2 years ago. (7) DVT prophylaxis: Code(s): Z29.9 - Encounter for prophylactic measures, unspecified Status: Acute Assessment and Plan: Currently on lovenox. Subjective Date/time seen: 06/28/21 15:13 S: Patient is examined at the bedside. She is awake, alert and oriented X2. Review of Systems Review of Systems: ROS unobtainable: Yes unobtainable due to mental status Exam Narrative: PHYSICAL EXAM: WEIGHT 83 kg BMI General: Chronically ill-appearing, obese and confused. HEENT: Breathing comfortably on nasal canula, mucous membranes are dry, edentulous in upper and lower jaw, pupils are equal and reactive with lens implants noted, head is normocephalic atraumatic, large neck circumference Respiratory: Decreased breath sounds bilaterally, no increased work of breathing Cardiovascular: Sinus tachycardia, 2+ bilateral radial pulses, 30 palpable pedal pulses Gastrointestinal: Soft, nontender, large umbilical hernia easily reducible, normoactive bowel sounds Skin: Generalized pallor, non jaundice Musculoskeletal: Extremities well perfused, less than 2nd cap refill Neurological: Alert and oriented times 1-2, speech is clear but slow, patient was
[2021-06-28 17:59] LABS: IFOB Positive Control Positive; Immunochemical Fecal Occult Bl Positive (N)
[2021-06-28] MEDS: MORPHINE SULFATE (*CRX) 4 MG/ML INJ IV PUSH (19:25)
[2021-06-28] MEDS: ENOXAPARIN 60 MG/0.6 ML SYRINGE SUB-Q (22:31)
[2021-06-29] VITALS (15 sets, daily range): BP systolic 99–142; BP diastolic 63–78; PULSE 79–99; RESP 16–20; TEMP 36.5–36.9; O2SAT 94–99
[2021-06-29] MEDS: ALBUTEROL SULFATE NEB 2.5 MG/0.5 ML INH 5 MG INHALATION ×4 (02:42→21:21)
[2021-06-29] MEDS: IPRATROPIUM BR 0.02% INH SOLN 0.5 MG/2.5 ML VIAL INHALATION ×4 (02:42→21:21)
[2021-06-29] MEDS: FUROSEMIDE INJ 40 MG/4 ML VIAL IV PUSH (08:22)
[2021-06-29 08:33] LABS: Basophils Absolute Auto 0.1 K/mm3 (0.0-0.1); Basophils Percent Auto 0.4 % (0.2-1.2); Eosinophils Absolute Auto 0.3 K/mm3 (0-0.3); Eosinophils Percent Auto 2.6 % (0-4.4); Hemoglobin 9.2 g/dL (12.0-15.0); Immature Granulocyte Absolute 0.06 K/mm3 (0.00-0.031); Immature Granulocyte Percent A 0.5 % (0-0.5); Lymphocytes Absolute Auto 2.42 K/mm3 (0.9-3.2); Lymphocytes Percent Auto 19.1 % (18.3-44.2); Mean Corpuscular HGB Conc 30.7 g/dl (32-36); Mean Corpuscular Hemoglobin 27.5 pg (26-34); Mean Corpuscular Volume 89.6 fl (80-100); Mean Platelet Volume 10.8 fl (7.4-10.4); Monocytes Absolute Auto 1.2 K/mm3 (0.1-0.6); Monocytes Percent Auto 9.1 % (2.6-8.5); Neutrophils Absolute Auto 8.7 K/mm3 (1.3-6.7); Neutrophils Percent Auto 68.3 % (45.5-73.1); Platelet Count Result 382 k/mm3 (150-375); Red Blood Count 3.35 M/mm3 (4.2-5.4); Red Cell Distribution Width 17.8 % (11.5-14.5); White Blood Count 12.7 K/mm3 (4.5-10.0)
[2021-06-29 08:43] LABS: INR 1.1; Prothrombin Time 14.2 Seconds (11.1-14.7)
[2021-06-29 08:48] LABS: Alanine Aminotransferase 11 U/L (4-35); Blood Urea Nitrogen 15 mg/dL (7-17); Carbon Dioxide > 40 mmol/L (22-30); Chloride 88 mmol/L (98-107); Estimated CRCL calculation 63 ml/min; Estimated Glomerular Filt Rate > 60; Glucose 121 mg/dL (65-110); Potassium 2.4 mmol/L (3.4-5.0); Sodium 139 mmol/L (137-145)
[2021-06-29] MEDS: ENOXAPARIN 60 MG/0.6 ML SYRINGE SUB-Q (12:05)
[2021-06-29] MEDS: FERROUS SULFATE 324 MG TABLET PO (14:38)
[2021-06-29] MEDS: ASPIRIN 81 MG CHEWABLE TABLET PO (14:38)
[2021-06-29] MEDS: FOLIC ACID 1 MG TABLET PO (14:38)
[2021-06-29] MEDS: MAGNESIUM OXIDE 400 MG TABLET PO (14:38)
[2021-06-29] MEDS: DULoxetine HCL 60 MG CAPSULE.DR PO (14:39)
--- NOTE | 2021-06-29 15:00 | PCOTNOTE ---
Attempted to see patient this pm, however patient refused. Pt declined activity out of bed stating, No, because I'm gonna take a nap. I was up all morning. Pt reported soiled depend. Assisted patient with changing depend and hygiene.
[2021-06-29] MEDS: LIPASE/AMYLASE/PROTEASE 12,000 UNITS CAP 2 CAP PO (16:10)
[2021-06-29] MEDS: ATORVASTATIN 40 MG TABLET 80 MG PO (16:11)
[2021-06-29] MEDS: POTASSIUM CHLORIDE 20 MEQ PACKET (FOR LIQUID) 40 MEQ PO (16:11)
[2021-06-29] MEDS: PREGABALIN (*CRX) 75 MG CAPSULE 150 MG PO (16:11)
[2021-06-29] MEDS: PANTOPRAZOLE 40 MG TABLET PO (16:11)
[2021-06-29] MEDS: ACETAMINOPHEN 325 MG TABLET 650 MG PO (16:12)
[2021-06-29 17:47] LABS: Magnesium 1.7 mg/dL (1.6-2.3); Potassium 3.6 mmol/L (3.4-5.0)
--- NOTE | 2021-06-29 18:26 | PM.IMPN ---
Progress Note: A&P Assessment and Plan (1) Acute on chronic respiratory failure with hypoxia and hypercapnia: Code(s): J96.21 - Acute and chronic respiratory failure with hypoxia; J96.22 - Acute and chronic respiratory failure with hypercapnia Status: Acute Assessment and Plan: Patient has impproving acute on chronic hypercapnic hypoxic respiratory failure. Two small pulmonary emboli were identified on the right lung on 06/27/2021. In the setting of COVID pneumonia we treated with heparin drip; given significant improvement, we switched to lovenox therapeutic dose 06/28/2021. Today we are transitioning to NOAC in anticipation for discharge tomorrow. Respiratory failure due to a combination of COPD complicated by underlying COVID pneumonia. The there is evidently a component of COPD exacerbation given patient's hypercapnic respiratory failure. The patient has been weaned to nasal canula and has been saturating well on 3 liters of oxygen overnight. (2) Pneumonia due to 2019-nCoV: Onset Date: 06/11/21 Code(s): U07.1 - COVID-19; J12.82 - Pneumonia due to coronavirus disease 2019 Status: Acute Assessment and Plan: The patient is at day 16 from diagnosis of COVID and is technically beyond the window for Remdesivir. Given clinical presentation she was appropriately started on remdesivir. significant improvement of respiratory status overnight. We will continue IV steroids and baricitinib. Stop remdesivir. (3) Altered mental status: Qualifiers: Altered mental status type: disorientation Qualified Code(s): R41.0 - Disorientation, unspecified Code(s): R41.82 - Altered mental status, unspecified Status: Acute Assessment and Plan: Unknown baseline mental status. Currently patient awake, alert and confused. She moves all extremities spontaneously. There is a history of falls. Normal mental status reported on 06/11/[address] unremarkable. Fall precautions. Neurology evaluation. (4) Anemia: Qualifiers: Anemia type: unspecified type Qualified Code(s): D64.9 - Anemia, unspecified Code(s): D64.9 - Anemia, unspecified Status: Acute Assessment and Plan: Anemia, normochromic, normocytic. Moderate and well tolerated. Iron stores adequate; folate, B12 are pending. Hemoccult + for blood. Obtain previous colonoscopy reports if available. GI consult. Hb stable at 8.1. There is no indication for blood transfusion. We will type the patient for our records. (5) Exocrine pancreatic insufficiency: Code(s): K86.81 - Exocrine pancreatic insufficiency Status: Chronic Assessment and Plan: Continue creon (6) Tobacco abuse: Code(s): Z72.0 - Tobacco use Status: Acute Assessment and Plan: Ex chronic smoker, she stopped 2 years ago. (7) DVT prophylaxis: Code(s): Z29.9 - Encounter for prophylactic measures, unspecified Status: Acute Assessment and Plan: Currently on lovenox. Stop lovenox. Start eliquis for management of PE. Oncology follow up as an outpatient. Additional Plan P Subjective Date/time seen: 06/29/21 18:26 S: Patient is examined at the bedside. She is tolerating PT well. Exam Narrative: PHYSICAL EXAM: WEIGHT 83 kg BMI General: Chronically ill-appearing, obese and confused. HEENT: Breathing comfortably on nasal canula, mucous membranes are dry, edentulous in upper and lower jaw, pupils are equal and reactive with lens implants noted, head is normocephalic atraumatic, large neck circumference Respiratory: Decreased breath sounds bilaterally, no increased work of breathing Cardiovascular: Sinus tachycardia, 2+ bilateral radial pulses, 30 palpable pedal pulses Gastrointestinal: Soft, nontender, large umbilical hernia easily reducible, normoactive bowel sounds Skin: Generalized pallor, non jaundice Musculoskeletal: Extremities well perfused, less than 2nd cap refill Neurological
[2021-06-29] MEDS: APIXABAN 5 MG TABLET 10 MG PO (20:41)
[2021-06-29] MEDS: traZODone HCL 50 MG TABLET 300 MG PO (20:41)
[2021-06-29] MEDS: AZELASTINE HCL NASAL 0.1% 137 MCG/SPR 30 ML BTL 1 SPRAY NASAL (20:41)
[2021-06-29] MEDS: MELATONIN 5 MG TABLET PO (20:41)
[2021-06-29] MEDS: BUDESONIDE RESPULE NEB 0.5 MG/2 ML AMP INHALATION (21:21)
[2021-06-30] VITALS (12 sets, daily range): BP systolic 92–103; BP diastolic 44–57; PULSE 79–96; RESP 18–22; TEMP 35.8–36.4; O2SAT 96–100
[2021-06-30] MEDS: IPRATROPIUM BR 0.02% INH SOLN 0.5 MG/2.5 ML VIAL INHALATION ×4 (03:01→20:21)
[2021-06-30] MEDS: ALBUTEROL SULFATE NEB 2.5 MG/0.5 ML INH 5 MG INHALATION ×4 (03:01→20:21)
[2021-06-30] MEDS: HYDROcodone/acetaminophen (*CRX) 5-325 MG TABLET 1 TAB PO ×2 (06:22→14:19)
[2021-06-30 06:36] LABS: Basophils Percent Auto 0.2 % (0.2-1.2); Eosinophils Absolute Auto 0.1 K/mm3 (0-0.3); Hematocrit 32.4 % (37.0-47.0); Hemoglobin 9.7 g/dL (12.0-15.0); Immature Granulocyte Absolute 0.08 K/mm3 (0.00-0.031); Immature Granulocyte Percent A 0.6 % (0-0.5); Lymphocytes Absolute Auto 2.01 K/mm3 (0.9-3.2); Lymphocytes Percent Auto 15.3 % (18.3-44.2); Mean Corpuscular HGB Conc 29.9 g/dl (32-36); Mean Corpuscular Hemoglobin 27.5 pg (26-34); Mean Corpuscular Volume 91.8 fl (80-100); Mean Platelet Volume 11.2 fl (7.4-10.4); Monocytes Percent Auto 7.3 % (2.6-8.5); Neutrophils Absolute Auto 9.9 K/mm3 (1.3-6.7); Neutrophils Percent Auto 75.6 % (45.5-73.1); Platelet Count Result 378 k/mm3 (150-375); Red Blood Count 3.53 M/mm3 (4.2-5.4); White Blood Count 13.1 K/mm3 (4.5-10.0)
[2021-06-30 06:55] LABS: INR 1.6; Prothrombin Time 18.3 Seconds (11.1-14.7)
[2021-06-30 06:56] LABS: Alanine Aminotransferase 15 U/L (4-35); Blood Urea Nitrogen 26 mg/dL (7-17); Carbon Dioxide > 40 mmol/L (22-30); Chloride 90 mmol/L (98-107); Estimated CRCL calculation 34 ml/min; Estimated Glomerular Filt Rate 44; Glucose 117 mg/dL (65-110); Potassium 2.9 mmol/L (3.4-5.0); Sodium 139 mmol/L (137-145)
[2021-06-30] MEDS: BUDESONIDE RESPULE NEB 0.5 MG/2 ML AMP INHALATION ×2 (07:20→21:42)
[2021-06-30] MEDS: ONDANSETRON INJ 4 MG/2 ML VIAL IV PUSH (07:29)
[2021-06-30] MEDS: PREGABALIN (*CRX) 75 MG CAPSULE 150 MG PO ×2 (08:58→16:18)
[2021-06-30] MEDS: APIXABAN 5 MG TABLET 10 MG PO (08:59)
[2021-06-30] MEDS: LIPASE/AMYLASE/PROTEASE 12,000 UNITS CAP 2 CAP PO ×3 (09:00→16:18)
[2021-06-30] MEDS: ATORVASTATIN 40 MG TABLET 80 MG PO (09:00)
[2021-06-30] MEDS: PANTOPRAZOLE 40 MG TABLET PO ×2 (09:01→16:18)
[2021-06-30] MEDS: FERROUS SULFATE 324 MG TABLET PO (09:02)
[2021-06-30] MEDS: LORATADINE 10 MG TABLET PO (09:02)
[2021-06-30] MEDS: POTASSIUM CHLORIDE 20 MEQ PACKET (FOR LIQUID) 40 MEQ PO (09:02)
[2021-06-30] MEDS: DULoxetine HCL 60 MG CAPSULE.DR PO (09:02)
[2021-06-30] MEDS: FOLIC ACID 1 MG TABLET PO (09:02)
[2021-06-30] MEDS: ASPIRIN 81 MG CHEWABLE TABLET PO (09:03)
[2021-06-30] MEDS: FUROSEMIDE INJ 40 MG/4 ML VIAL IV PUSH (09:04)
[2021-06-30] MEDS: MAGNESIUM OXIDE 400 MG TABLET PO (09:06)
--- NOTE | 2021-06-30 11:38 | PCNFU ---
Nutrition Follow-Up Complete: Involuntary weight loss related to unknown etiology as evidenced by documented 15% weight loss over the past 6 weeks. Goal: Patient to consume 50% of meals/supplements or greater and maintain weight. Patient is progressing towards goal. We will continue current goal. Pt current nutrition is Heart Healthy with Ensure compact BID. Last recorded weight is 78 kg up from 74 kg on admit. Bowel Motility:+BM reported 06/30 Labs Reviewed:GFR 44,BUN 26,Cr 1.2,Glu 117,Hct 32.4, Hgb 9.7 Meds Noted:Protonix, Alcolu, Mag ox, Zofran, Cymbalta, Decadron, Folic Acid, Lasix, Atrovent, Claritin. Additional Notes: Nutrition follow up. Patient consumed greater than 75% of heart healthy diet for breakfast today. Diet supplements continue of Ensure compact BID providing an additional 220 kcals and 9 gms protein. Agree with diet orders. Skin:WNL. Monitoring: Follow up in 5 days.
--- NOTE | 2021-06-30 13:07 | WPDGICN ---
Assessment and Plan Assessment and plan (1) Acute on chronic respiratory failure with hypoxia and hypercapnia: Code(s): J96.21 - Acute and chronic respiratory failure with hypoxia; J96.22 - Acute and chronic respiratory failure with hypercapnia Status: Acute Assessment and Plan: she denies shortness of breath at this time. She is, I am told, ready for discharge (2) Anemia: Code(s): D64.9 - Anemia, unspecified Status: Acute Assessment and Plan: stool Hemoccult positive. She should be scheduled for EGD and colonoscopy. The hospitalist has discussed this with her granddaughter, power of assistant district attorney who concurs and agrees to the procedures (3) Diarrhea: Code(s): R19.7 - Diarrhea, unspecified Status: Acute Assessment and Plan: per the patient, this is a chronic problem (4) Pulmonary embolism: Code(s): I26.99 - Other pulmonary embolism without acute cor pulmonale Status: Acute Assessment and Plan: I spoke with the hospitalist, Humera Mar, and Eliquis will be held until the procedures are performed. GI Consult Note Consult date/time: 06/30/21 13:07 HPI: Gabbi Champagne is a 76 year old female who was admitted with acute on chronic respiratory failure with hypoxia. She has recovered now. She also was found to have COVID virus 3 weeks ago. Temporarily she had Altered mental status for which seems to have improved.. She has been found to have 2 small pulmonary emboli for which reason she has just been started on anticoagulants. She also is anemic and Hemoccult positive. I see that she also has stool Hemoccult a few months ago which was positive. The patient denies seen blood her stools. She does not believe that she has colitis but states that her bowels are always loose. She states she had a colonoscopy several years ago in [facility] and believes that was okay. She denies epigastric pain heartburn dysphagia or nausea. She denies abdominal pain and denies weight loss. her only complaint now is that the pain medication for her hip and back is not strong enough. 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 Emphysema of lung Exocrine pancreatic insufficiency GERD (gastroesophageal reflux disease) GI bleed H/O ulcer disease Herniated disc HLD (hyperlipidemia) HTN (hypertension) Migraine OAB (overactive bladder) Osteoporosis Pancreatitis Pneumonia Prediabetes PVD (peripheral vascular disease) TIA (transient ischemic attack) UTI (urinary tract infection) Wears dentures Surgical History Surgical History H/O neck surgery 2002 History of back surgery 2000 History of bladder suspension procedure History of cardiac cath History of cholecystectomy History of hysterectomy History of lumbar fusion x2 History of tonsillectomy History of tubal ligation History of vascular surgery lt leg arteroplasty Family History Family History Father Family history of Parkinson's disease Sibling Patient's brother is in good health Mother Family history of chronic obstructive pulmonary disease Family history of pancreatic cancer Social History Social History Social History: Code status: Full code (per EMR) Smoking packs per day: 1 Smoking cigarettes per day: 20.0 Years smoked: 30 Smoking pack-years: 30.00
[2021-06-30] MEDS: polyethylene glycoL 3350 238 GM BOTTLE PO (14:12)
[2021-06-30] MEDS: BISACODYL 5 MG TABLET EC 10 MG PO ×2 (14:19→20:34)
--- NOTE | 2021-06-30 15:55 | PM.IMPN ---
Progress Note: A&P Assessment and Plan (1) Acute on chronic respiratory failure with hypoxia and hypercapnia: Code(s): J96.21 - Acute and chronic respiratory failure with hypoxia; J96.22 - Acute and chronic respiratory failure with hypercapnia Status: Acute Assessment and Plan: Acute on chronic hypercapnic hypoxic respiratory failure, is improving with patient saturating 99% with oxygen 3 liter by nasal canula. We will continue to wean. Two small pulmonary emboli were identified on the right lung on 06/27/2021. In the setting of COVID pneumonia we treated with heparin drip; given significant improvement, we switched to lovenox therapeutic dose 06/28/2021. She was transitioned to NOAC on 06/29/2021 in anticipation for discharge ; given the finding of occult blood in stool, GI was consulted. Recent colonoscopy 2 years ago isn't available for review. Respiratory failure due to a combination of COPD complicated by underlying COVID pneumonia and newly diagnosed pulmonary embolism. The there is evidently a component of COPD exacerbation given patient's hypercapnic respiratory failure. The patient has been weaned to nasal canula and continues tp saturat above mid 90s on 3 liters of oxygen overnight. (2) Pneumonia due to 2019-nCoV: Onset Date: 06/11/21 Code(s): U07.1 - COVID-19; J12.82 - Pneumonia due to coronavirus disease 2019 Status: Acute Assessment and Plan: The patient is at day 19 from diagnosis of COVID and is technically beyond the window for Remdesivir. Given clinical presentation she was appropriately started on remdesivir. With significant improvement of respiratory status overnight, remdesivir was promptly stopped. We will continue IV steroids and baricitinib. . (3) Altered mental status: Qualifiers: Altered mental status type: disorientation Qualified Code(s): R41.0 - Disorientation, unspecified Code(s): R41.82 - Altered mental status, unspecified Status: Acute Assessment and Plan: Unknown baseline mental status. Currently patient awake, alert and confused. She moves all extremities spontaneously. There is a history of falls. Normal mental status reported on 06/11/[address] unremarkable. Fall precautions. Neurology evaluation. (4) Anemia: Qualifiers: Anemia type: unspecified type Qualified Code(s): D64.9 - Anemia, unspecified Code(s): D64.9 - Anemia, unspecified Status: Acute Assessment and Plan: Anemia, normochromic, normocytic, stable and well tolerated with an Hb of 9.7. There is no indication for blood transfusion. Iron stores, B12 level adequate; folate is still pending. Hemoccult + for blood. given plans for chronic anticoagulation, GI was consulted. GI plans for EGD and colonoscopy in AM.. (5) Exocrine pancreatic insufficiency: Code(s): K86.81 - Exocrine pancreatic insufficiency Status: Chronic Assessment and Plan: Continue creon (6) Tobacco abuse: Code(s): Z72.0 - Tobacco use Status: Acute Assessment and Plan: Ex chronic smoker, she stopped 2 years ago. (7) DVT prophylaxis: Code(s): Z29.9 - Encounter for prophylactic measures, unspecified Status: Acute Assessment and Plan: Eliquis on hold for GI procedure tomorrow. Subjective Date/time seen: 06/30/21 15:55 Review of Systems Review of Systems: ROS unobtainable: Yes other Constitutional: Constitutional: Reports no additional constitutional complaints Eyes: Eyes: Reports no additional eye complaints ENT: Reports system reviewed and no additional complaints, except as documented Cardiovascular: Cardiovascular: Reports no additional cardiovascular complaints Respiratory: Respiratory: Reports no additional respiratory complaints Gastrointestinal: Gastrointestinal: Reports no additional gastrointestinal complaints Genitourinary: Genitourinary: Reports no additional female genitourinary
[2021-06-30] MEDS: MELATONIN 5 MG TABLET PO (20:34)
[2021-06-30] MEDS: traZODone HCL 50 MG TABLET 300 MG PO (20:34)
[2021-06-30] MEDS: AZELASTINE HCL NASAL 0.1% 137 MCG/SPR 30 ML BTL 1 SPRAY NASAL (20:37)
[2021-07-01] VITALS (18 sets, daily range): BP systolic 76–100; BP diastolic 41–59; PULSE 66–83; RESP 14–24; TEMP 36.3–37.3; O2SAT 92–100
[2021-07-01] MEDS: ALBUTEROL SULFATE NEB 2.5 MG/0.5 ML INH 5 MG INHALATION ×4 (01:43→20:18)
[2021-07-01] MEDS: IPRATROPIUM BR 0.02% INH SOLN 0.5 MG/2.5 ML VIAL INHALATION ×4 (01:43→20:18)
[2021-07-01] MEDS: BISACODYL 5 MG TABLET EC 10 MG PO (03:37)
[2021-07-01 06:45] LABS: Basophils Percent Auto 0.2 % (0.2-1.2); Eosinophils Absolute Auto 0.5 K/mm3 (0-0.3); Eosinophils Percent Auto 4.2 % (0-4.4); Hematocrit 26.3 % (37.0-47.0); Immature Granulocyte Absolute 0.08 K/mm3 (0.00-0.031); Immature Granulocyte Percent A 0.6 % (0-0.5); Lymphocytes Absolute Auto 2.42 K/mm3 (0.9-3.2); Mean Corpuscular HGB Conc 30.4 g/dl (32-36); Mean Corpuscular Hemoglobin 27.5 pg (26-34); Mean Corpuscular Volume 90.4 fl (80-100); Mean Platelet Volume 11.1 fl (7.4-10.4); Monocytes Absolute Auto 0.8 K/mm3 (0.1-0.6); Monocytes Percent Auto 6.1 % (2.6-8.5); Neutrophils Absolute Auto 8.9 K/mm3 (1.3-6.7); Neutrophils Percent Auto 69.9 % (45.5-73.1); Platelet Count Result 321 k/mm3 (150-375); Red Blood Count 2.91 M/mm3 (4.2-5.4); Red Cell Distribution Width 17.8 % (11.5-14.5); White Blood Count 12.8 K/mm3 (4.5-10.0)
[2021-07-01 07:02] LABS: Anion Gap 6 mmol/L (8-16); Blood Urea Nitrogen 23 mg/dL (7-17); Calcium 7.2 mg/dL (8.4-10.2); Carbon Dioxide 37 mmol/L (22-30); Chloride 87 mmol/L (98-107); Estimated CRCL calculation 50 ml/min; Estimated Glomerular Filt Rate > 60; Glucose 107 mg/dL (65-110); Potassium 3.7 mmol/L (3.4-5.0); Sodium 130 mmol/L (137-145)
--- NOTE | 2021-07-01 07:24 | PM.IMPN ---
Progress Note: A&P Assessment and Plan (1) Acute on chronic respiratory failure with hypoxia and hypercapnia: Code(s): J96.21 - Acute and chronic respiratory failure with hypoxia; J96.22 - Acute and chronic respiratory failure with hypercapnia Status: Acute Assessment and Plan: Acute on chronic hypercapnic hypoxic respiratory failure, is improving with patient saturating 99% on room air today. On admission she was at day 19 of a COVID 19 diagnosis. Given the representation with acute respiratory failure she was initially started on redmesivir and steroids despite being past the treatment window. Part of her work up she underwent head CT which was unrevealing nad a CT angiogram of the chest. Two small pulmonary emboli were identified on the right lung on 06/27/2021. In the setting of COVID pneumonia the patient was fully anticoagulated with heparin drip; given significant improvement, she was switched to lovenox at a therapeutic dose on 06/28/2021. She was transitioned to NOAC on 06/29/2021 in anticipation for discharge ; given the finding of occult blood in stool, GI was consulted. Recent colonoscopy 2 years ago isn't available for review. EGD revealed only gastritis and colonoscopy reveals mild colitis. PAtient is currently asymptomatic; given her pervious history of C difficile colitis, and the finding of colitis, clinical monitoring is recommended. Respiratory failure, due to a combination of COPD complicated by underlying COVID pneumonia and newly diagnosed pulmonary embolism, has now resolved. There is evidently a component of COPD exacerbation given patient's hypercapnic respiratory failure. The patient has been weaned to room air and continues to saturate 99% overnight. Her BPs are on the soft side after the colonoscopy. She can be monitored tonight on the medical floor and discharged in AM. (2) Pneumonia due to 2019-nCoV: Onset Date: 06/11/21 Code(s): U07.1 - COVID-19; J12.82 - Pneumonia due to coronavirus disease 2019 Status: Acute Assessment and Plan: At the time of admission, he patient is at day 19 from diagnosis of COVID and is technically beyond the window for Remdesivir. Given clinical presentation she was appropriately started on remdesivir. With significant improvement of respiratory status overnight, remdesivir was promptly stopped. She was continued on IV steroids. Steroids were stopped today now that the patient is on room air. . (3) Altered mental status: Qualifiers: Altered mental status type: disorientation Qualified Code(s): R41.0 - Disorientation, unspecified Code(s): R41.82 - Altered mental status, unspecified Status: Acute Assessment and Plan: Unknown baseline mental status. Currently patient awake, alert and confused; she is fully conversant. She moves all extremities spontaneously. There is a history of falls. Normal mental status reported on 06/11/[address] unremarkable. Fall precautions. (4) Anemia: Qualifiers: Anemia type: unspecified type Qualified Code(s): D64.9 - Anemia, unspecified Code(s): D64.9 - Anemia, unspecified Status: Acute Assessment and Plan: Anemia, normochromic, normocytic, stable and well tolerated with an Hb of 9.7. There is no indication for blood transfusion. Iron stores, B12 level adequate; folate is still pending. Hemoccult + for blood, but no active source of bleeding. PAtient has been cleared for chronic anticoagulation, from the GI standpoint. EGD reveals gastritis and patient is on high dose of PPI for 1 month. (5) Exocrine pancreatic insufficiency: Code(s): K86.81 - Exocrine pancreatic insufficiency Status: Chronic Assessment and Plan: Continue creon (6) Tobacco abuse: Code(s): Z72.0 - Tobacco use Status: Acute Assessment and Plan: Ex chronic smoker, she stopped 2 years ago. (7) DVT prophylaxis: Code(s): Z29.9 - Encounter for
[2021-07-01] MEDS: BUDESONIDE RESPULE NEB 0.5 MG/2 ML AMP INHALATION (08:18)
--- NOTE | 2021-07-01 10:47 | PCAUD ---
Report given to Gi lab, consent signed 06/30/21. Pt out at gi procedure. All medication held this morning pt has been NPO since midnight.
--- NOTE | 2021-07-01 11:20 | PCPTNOTE ---
Attempted to see patient for PT at this time, however patient out of room for procedure.
[2021-07-01] MEDS: LACTATED RINGERS 1,000 ML 150 ML IV CONT (11:25)
[2021-07-01] MEDS: SIMETHICONE ORAL SUSPENSION 20 MG/0.3 ML 30 ML BOTTLE 0.6 ML PO (12:09)
[2021-07-01] MEDS: FUROSEMIDE INJ 40 MG/4 ML VIAL IV PUSH (13:11)
[2021-07-01] MEDS: FOLIC ACID 1 MG TABLET PO (13:12)
[2021-07-01] MEDS: LIPASE/AMYLASE/PROTEASE 12,000 UNITS CAP 2 CAP PO ×2 (13:12→17:04)
[2021-07-01] MEDS: DULoxetine HCL 60 MG CAPSULE.DR PO (13:12)
[2021-07-01] MEDS: FERROUS SULFATE 324 MG TABLET PO (13:12)
[2021-07-01] MEDS: ATORVASTATIN 40 MG TABLET 80 MG PO (13:13)
[2021-07-01] MEDS: PANTOPRAZOLE 40 MG TABLET PO ×2 (13:13→17:04)
[2021-07-01] MEDS: MAGNESIUM OXIDE 400 MG TABLET PO (13:13)
[2021-07-01] MEDS: LORATADINE 10 MG TABLET PO (13:13)
[2021-07-01] MEDS: AZELASTINE HCL NASAL 0.1% 137 MCG/SPR 30 ML BTL 1 SPRAY NASAL (13:14)
[2021-07-01] MEDS: ONDANSETRON INJ 4 MG/2 ML VIAL IV PUSH (15:17)
--- NOTE | 2021-07-01 16:06 | PCAUD ---
Spoke with MD Richard, office will fax medication list in am.
[2021-07-01] MEDS: HYDROcodone/acetaminophen (*CRX) 5-325 MG TABLET 1 TAB PO (17:04)
[2021-07-01] MEDS: PREGABALIN (*CRX) 75 MG CAPSULE 150 MG PO (17:04)
[2021-07-01] MEDS: MELATONIN 5 MG TABLET PO (20:59)
[2021-07-01] MEDS: traZODone HCL 50 MG TABLET 300 MG PO (20:59)
[2021-07-01] MEDS: APIXABAN 5 MG TABLET 10 MG PO (21:00)
[2021-07-02] VITALS (13 sets, daily range): BP systolic 102–112; BP diastolic 65–68; PULSE 68–92; RESP 14–18; TEMP 35.9–37.2; O2SAT 95–97
[2021-07-02] MEDS: IPRATROPIUM BR 0.02% INH SOLN 0.5 MG/2.5 ML VIAL INHALATION ×4 (03:11→20:47)
[2021-07-02] MEDS: ALBUTEROL SULFATE NEB 2.5 MG/0.5 ML INH 5 MG INHALATION ×4 (03:11→20:47)
[2021-07-02] MEDS: HYDROcodone/acetaminophen (*CRX) 5-325 MG TABLET 1 TAB PO ×2 (04:19→15:45)
[2021-07-02] MEDS: ONDANSETRON INJ 4 MG/2 ML VIAL IV PUSH (04:23)
[2021-07-02 06:42] LABS: Basophils Percent Auto 0.2 % (0.2-1.2); Eosinophils Absolute Auto 0.3 K/mm3 (0-0.3); Eosinophils Percent Auto 2.4 % (0-4.4); Hematocrit 27.5 % (37.0-47.0); Hemoglobin 8.2 g/dL (12.0-15.0); Immature Granulocyte Absolute 0.13 K/mm3 (0.00-0.031); Lymphocytes Absolute Auto 2.41 K/mm3 (0.9-3.2); Lymphocytes Percent Auto 19.2 % (18.3-44.2); Mean Corpuscular HGB Conc 29.8 g/dl (32-36); Mean Corpuscular Hemoglobin 27.2 pg (26-34); Mean Corpuscular Volume 91.1 fl (80-100); Mean Platelet Volume 11.4 fl (7.4-10.4); Monocytes Absolute Auto 0.8 K/mm3 (0.1-0.6); Neutrophils Absolute Auto 8.9 K/mm3 (1.3-6.7); Neutrophils Percent Auto 71.2 % (45.5-73.1); Platelet Count Result 368 k/mm3 (150-375); Red Blood Count 3.02 M/mm3 (4.2-5.4); Red Cell Distribution Width 18.1 % (11.5-14.5); White Blood Count 12.5 K/mm3 (4.5-10.0)
[2021-07-02 06:52] LABS: Anion Gap 8 mmol/L (8-16); Blood Urea Nitrogen 20 mg/dL (7-17); Calcium 7.4 mg/dL (8.4-10.2); Carbon Dioxide 37 mmol/L (22-30); Chloride 93 mmol/L (98-107); Estimated CRCL calculation 48 ml/min; Estimated Glomerular Filt Rate > 60; Glucose 147 mg/dL (65-110); Sodium 138 mmol/L (137-145)
--- NOTE | 2021-07-02 07:38 | PM.IMPN ---
Progress Note: A&P Additional Plan START OF DOCTOR AL?S PROGRESS NOTE Subjective: The patient complains of some minor weakness however this does not appear to be far from her baseline. Overnight she denies fever, rigors, nausea, vomiting, cough, wheeze, abdominal pain, chest pain, dyspnea. The patient indicates that she feels as though she is at her baseline respiratory status. She denies lightheadedness, dizziness, or any other concerns complaints. I have explained to the patient her medical condition plan of care and answered all questions Objective: General: -Alert -No acute distress -No dyspnea -No tachypnea Heart: -Regular rate -Regular rhythm -No murmurs -No gallops -No rubs Lungs: -No wheeze -No rhonchi -trace bibasilar rales -distant breath sounds bilaterally Abdomen: -Normal bowel sounds in all four quadrants -No rebound -No guarding -No tenderness Extremities: -2/4 pulse in all four extremities -No clubbing -No cyanosis -No edema Additional Details / Additional Findings / Exceptions / Miscellaneous: Pertinent Laboratory Results / Pertinent Radiology Results / Pertinent Diagnostic Results / Pertinent Vital Signs: Vital signs stable. Morning BMP pending Assessment / Plan: Pulmonary embolism. Eliquis 10 mg p.o. b.i.d. to be converted to 5 mg p.o. b.i.d. after 1 week of treatment. We will closely monitor hemoglobin COPD/interstitial lung disease. Patient O2 dependent 3 L. albuterol 2.5 mg nebulized q.6 hours [facility] at [facility] use nebulized q.6 hours plus budesonide 0.5 mg inhaled q.12 hours Exocrine pancreatic insufficiency. Creon 1000 units p.o. t.i.d. with meals Dementia Anxiety Arthritis Chronic pain Diastolic CHF. Lasix 40 mg IV daily Degenerative joint disease Depression. Cymbalta 60 mg p.o. daily plus trazodone 300 mg p.o. q.h.s. GERD/gastritis. Protonix 40 mg p.o. b.i.d. Anemia with fecal occult blood blood positive stool. Patient borderline iron deficient. Patient is status post EGD July 01, 2021 with Gastroenterology which demonstrated gastritis. Ferrous sulfate 324 mg p.o. daily Hyperlipidemia. Lipitor 80 mg p.o. q.h.s. Hypertension. Lasix 40 mg IV daily History of migraine Overactive bladder Osteoporosis. Fosamax 70 mg p.o. Q Monday Pulmonary hypertension Hypokalemia. Resolved Acute renal sufficiency. Results Peripheral vascular disease. Lipitor 80 mg p.o. q.h.s.. Aspirin 81 mg p.o. daily discontinued secondary to anemia History of TIA. Lipitor 80 mg p.o. q.h.s.. Aspirin 81 mg p.o. daily discontinued secondary to anemia Seasonal allergies. As last and 1 puff in each nares q.12 hours plus Claritin 10 mg p.o. daily Neuropathy. Lyrica 100 mg p.o. b.i.d. DVT prophylaxis. Eliquis 10 mg p.o. b.i.d. to be converted to 5 mg p.o. b.i.d. after 1 week of treatment Disposition: The patient may potentially be accounted for discharge on this day of July 02, 2021 pending monitoring of her hemoglobin END OF DOCTOR AL?S PROGRESS NOTE Subjective Date/time seen: 07/02/21 07:38 Objective Data Vital Signs Vital Signs: Vital Signs - 24 hr 07/01/21 08:00 07/01/21 08:19 07/01/21 08:32 Temperature Pulse Rate 78 80 78 Respiratory Rate 20 20 20 Blood Pressure Pulse Oximetry 92 92 07/01/21 11:00 07/01/21 12:13 07/01/21 12:23 Temperature 97.5 F L Pulse Rate 76 66 75 Respiratory Rate 20 17 24 H Blood Pressure 92/55 L 79/41 L 81/59 L Pulse Oximetry 96 100 100 07/01/21 12:33 07/01/21 15:07 07/01/21 15:19 Temperature Pulse Rate 72 80 78 Respiratory Rate 14 20 20 Blood Pressure 84/44 L Pulse Oximetry 99 07/01/21 16:00 07/01/21 20:00 07/01/21 20:18 Temperature 99.1 F Pulse Rate 81 81 Respiratory Rate 18 20 Blood Pressure 95/48 L Pulse Oximetry 95 97 07/01/21 20:21 07/01/21 21:58 07/01/21 23:05 Temperature 97.3 F L Pulse Ra
[2021-07-02] MEDS: LIPASE/AMYLASE/PROTEASE 12,000 UNITS CAP 2 CAP PO ×3 (08:38→17:24)
[2021-07-02] MEDS: AZELASTINE HCL NASAL 0.1% 137 MCG/SPR 30 ML BTL 1 SPRAY NASAL ×2 (08:38→21:20)
[2021-07-02] MEDS: PANTOPRAZOLE 40 MG TABLET PO ×2 (08:39→17:25)
[2021-07-02] MEDS: FERROUS SULFATE 324 MG TABLET PO (08:39)
[2021-07-02] MEDS: APIXABAN 5 MG TABLET 10 MG PO ×2 (08:39→21:17)
[2021-07-02] MEDS: DULoxetine HCL 60 MG CAPSULE.DR PO (08:39)
[2021-07-02] MEDS: FOLIC ACID 1 MG TABLET PO (08:39)
[2021-07-02] MEDS: ATORVASTATIN 40 MG TABLET 80 MG PO (08:39)
[2021-07-02] MEDS: MAGNESIUM OXIDE 400 MG TABLET PO (08:40)
[2021-07-02] MEDS: LORATADINE 10 MG TABLET PO (08:40)
[2021-07-02] MEDS: FUROSEMIDE INJ 40 MG/4 ML VIAL IV PUSH (08:40)
[2021-07-02] MEDS: PREGABALIN (*CRX) 75 MG CAPSULE 150 MG PO ×2 (08:43→17:27)
[2021-07-02] MEDS: MECLIZINE HCL 12.5 MG TABLET PO (11:23)
[2021-07-02 12:52] LABS: Hematocrit 28.8 % (37.0-47.0); Hemoglobin 8.6 g/dL (12.0-15.0)
--- NOTE | 2021-07-02 16:32 | PM.DS ---
DS: Admitting Diagnosis Discharge Date 4:36 p.m. on July 02, 2021 Admitting Diagnosis Pulmonary embolism DS: Summary Hospital Course Hospital Course: Is see discharge summary below Time Spent with Patient Time attestation: Total time spent providing and/or coordinating discharge services: START OF DOCTOR JIGNESH DISCHARGE SUMMARY Date of Admission: June 26, 2021 Date of Discharge: 4:32 p.m. on July 02, 2020 Primary Diagnosis: Pulmonary embolism Secondary Diagnosis: COPD/interstitial lung disease for which patient is dependent 3 L Expand pancreatic insufficiency Dementia Anxiety Arthritis Chronic pain Diastolic CHF paragraph degenerative joint disease Depression GERD/gastritis Hyperlipidemia Hypertension History of migraine Overactive bladder Osteoporosis Pulmonary hypertension Hypokalemia, resolved Acute renal insufficiency, resolved Peripheral vascular disease History of TIA Seasonal allergies Neuropathy Anemia with fecal occult blood positive stool for which patient is status post EGD on June 04, 2021 with Gastroenterology which demonstrated gastritis Borderline iron deficiency Consultations: Gastroenterology Disposition: The patient is advised follow-up with Gastroenterology as directed The patient is advised follow-up with her primary care physician 5-7 days post discharge for post hospitalization evaluation Discharge Medications: Eliquis 5 mg PO: 2 tabs p.o. b.i.d. on the left 50 9:00 p.m. on July 08, 2021 then 5 mg p.o. b.i.d. thereafter indefinitely Lasix 20 mg p.o. b.i.d. Gisselle or 20 mEq p.o. daily Ipratropium 17 mcg per spray: 2 puffs q.i.d. Proventil HFA: 90 microsphere spray: 1 puff q.4 hours p.r.n. shortness of breath/wheeze Melatonin 5 mg p.o. q.h.s. Protonix 40 mg p.o. daily Lyrica 150 mg p.o. b.i.d. Trazodone 300 mg p.o. q.h.s. Fosamax 70 mg p.o. weekly Lipitor 80 mg p.o. q.h.s. Asked to last and nasal spray: 1 Shan some migraines per spray: 1 puff in each nares q.12 hours Budesonide 0.5 mg inhaled b.i.d. Zyrtec 10 mg p.o. daily Cymbalta 60 mg p.o. daily Ferrous sulfate 325 mg p.o. daily Folic acid 1 mg p.o. daily [place] 5/325 mg p.o. q.8 hours p.r.n. pain Creon 95213/[id number]/60 1000 units: 2 tabs p.o. t.i.d. with meals Magnesium oxide 400 mg p.o. daily Meclizine 12.5 mg p.o. t.i.d. p.r.n. dizziness/vertigo END OF DOCTOR LAILA?S DISCHARGE SUMMARY DS: Data Data Completed and Pending Completed studies during hospitalization: Pending at discharge 07/01/21 12:10 Surgical [PTH] Routine Labs on day of discharge: Labs from last 24 hours 07/02/21 07/02/21 07/02/21 12:42 06:12 06:12 WBC 12.5 H RBC 3.02 L Hgb 8.6 L 8.2 L Hct 28.8 L 27.5 L MCV 91.1 MCH 27.2 MCHC 29.8 L RDW 18.1 H Plt Count 368 MPV 11.4 H Immature Gran % (Auto) 1.0 H Neut % (Auto) 71.2 Lymph % (Auto) 19.2 [place] % (Auto) 6.0 Eos % (Auto) 2.4 Baso % (Auto) 0.2 Lymph # (Auto) 2.41 [place] # (Auto) 0.8 H Eos # (Auto) 0.3 Baso # (Auto) 0.0 Abs Immat Gran (auto) 0.13 H Absolute Neuts (auto) 8.9 H Absolute Nucleated RBC 0.0 Nucleated RBC % 0.0 Sodium 138 Potassium 4.0 Chloride 93 L Carbon Dioxide 37 H Anion Gap 8 BUN 20 H Creatinine 0.80 Estim Creat Clear Calc 48 Estimated GFR > 60 Glucose 147 H Calcium 7.4 L Discharge Plan Discharge Consulting providers: Mike Lizarraga Discharging Clinician: laila Patient Disposition: SNF Activity: as tolerated Diet: heart healthy, low sodium, low cholesterol and low fat Patient Instructions: Apixaban (By mouth), Shortness of Breath (GEN) Stand Alone Forms: General Discharge Information Discharge Medications: New Eliquis 5 mg tablet 5 mg PO BID Qty: 1 RF: 0 furosem
[2021-07-02 19:04] LABS: Hematocrit 27.9 % (37.0-47.0); Hemoglobin 8.3 g/dL (12.0-15.0)
[2021-07-02] MEDS: BUDESONIDE RESPULE NEB 0.5 MG/2 ML AMP INHALATION (20:48)
[2021-07-02] MEDS: MELATONIN 5 MG TABLET PO (21:16)
[2021-07-02] MEDS: traZODone HCL 50 MG TABLET 300 MG PO (21:17)
[2021-07-03 01:20] LABS: Hematocrit 28.7 % (37.0-47.0); Hemoglobin 8.7 g/dL (12.0-15.0)
[2021-07-03] MEDS: ALBUTEROL SULFATE NEB 2.5 MG/0.5 ML INH 5 MG INHALATION (01:42)
[2021-07-03] MEDS: IPRATROPIUM BR 0.02% INH SOLN 0.5 MG/2.5 ML VIAL INHALATION (01:42)
[2021-07-03 01:43] VITALS: PULSE 74; RESP 16
[2021-07-03 01:54] VITALS: PULSE 77; RESP 16
[2021-07-03 05:29] LABS: Basophils Absolute Auto 0.1 K/mm3 (0.0-0.1); Basophils Percent Auto 0.4 % (0.2-1.2); Eosinophils Absolute Auto 1.8 K/mm3 (0-0.3); Eosinophils Percent Auto 8.7 % (0-4.4); Hematocrit 29.7 % (37.0-47.0); Hemoglobin 8.9 g/dL (12.0-15.0); Immature Granulocyte Absolute 0.16 K/mm3 (0.00-0.031); Immature Granulocyte Percent A 0.8 % (0-0.5); Lymphocytes Absolute Auto 3.52 K/mm3 (0.9-3.2); Lymphocytes Percent Auto 17.1 % (18.3-44.2); Mean Corpuscular Hemoglobin 27.6 pg (26-34); Mean Corpuscular Volume 92.2 fl (80-100); Mean Platelet Volume 11.1 fl (7.4-10.4); Monocytes Absolute Auto 1.3 K/mm3 (0.1-0.6); Monocytes Percent Auto 6.3 % (2.6-8.5); Neutrophils Absolute Auto 13.8 K/mm3 (1.3-6.7); Neutrophils Percent Auto 66.7 % (45.5-73.1); Platelet Count Result 349 k/mm3 (150-375); Red Blood Count 3.22 M/mm3 (4.2-5.4); Red Cell Distribution Width 18.5 % (11.5-14.5); White Blood Count 20.6 K/mm3 (4.5-10.0)
[2021-07-03 05:39] LABS: Anion Gap 7 mmol/L (8-16); Blood Urea Nitrogen 18 mg/dL (7-17); Calcium 7.1 mg/dL (8.4-10.2); Carbon Dioxide 38 mmol/L (22-30); Chloride 91 mmol/L (98-107); Estimated CRCL calculation 48 ml/min; Estimated Glomerular Filt Rate > 60; Glucose 108 mg/dL (65-110); Potassium 4.1 mmol/L (3.4-5.0); Sodium 136 mmol/L (137-145)
[2021-07-03 06:00] VITALS: BP 98/63; PULSE 86; RESP 18; TEMP 36.1; O2SAT 96
--- NOTE | 2021-07-03 07:16 | PM.IMPN ---
Progress Note: A&P Additional Plan START OF DOCTOR AL?S PROGRESS NOTE Subjective: The patient reports no complaints at this time. Overnight she denies fever, rigors, nausea, vomiting, cough, wheeze, abdominal pain, chest pain, dyspnea, or any other constitutional complaints. I have explained to the patient her current medical condition plan of care addressed all questions Objective: General: -Alert -No acute distress -No dyspnea -No tachypnea Heart: -Regular rate -Regular rhythm -No murmurs -No gallops -No rubs Lungs: -scant bilateral wheezes -no rhonchi -trace bibasilar rales -distant breath sounds bilaterally Abdomen: -Normal bowel sounds in all four quadrants -No rebound -No guarding -No tenderness Extremities: -2/4 pulse in all four extremities -No clubbing -No cyanosis -No edema Additional Details / Additional Findings / Exceptions / Miscellaneous: Pertinent Laboratory Results / Pertinent Radiology Results / Pertinent Diagnostic Results / Pertinent Vital Signs: Blood pressure 98/63. Morning CBC pending Assessment / Plan: Pulmonary embolism. Eliquis 10 mg p.o. b.i.d. to be converted to 5 mg p.o. b.i.d. after 1 week of treatment. We will closely monitor hemoglobin COPD/interstitial lung disease. Patient O2 dependent 3 L. albuterol 2.5 mg nebulized q.6 hours [facility] use nebulized q.6 hours plus budesonide 0.5 mg inhaled q.12 hours Exocrine pancreatic insufficiency. Creon 1000 units p.o. t.i.d. with meals Dementia Anxiety Arthritis Chronic pain Diastolic CHF. Lasix 40 mg IV daily Degenerative joint disease Depression. Cymbalta 60 mg p.o. daily plus trazodone 300 mg p.o. q.h.s. GERD/gastritis. Protonix 40 mg p.o. b.i.d. Anemia with fecal occult blood blood positive stool. Patient borderline iron deficient. Patient is status post EGD July 01, 2021 with Gastroenterology which demonstrated gastritis. Ferrous sulfate 324 mg p.o. daily Hyperlipidemia. Lipitor 80 mg p.o. q.h.s. Hypertension. Lasix 40 mg IV daily History of migraine Overactive bladder Osteoporosis. Fosamax 70 mg p.o. Q Monday Pulmonary hypertension Hypokalemia. Resolved Acute renal sufficiency. Results Peripheral vascular disease. Lipitor 80 mg p.o. q.h.s.. Aspirin 81 mg p.o. daily discontinued secondary to anemia History of TIA. Lipitor 80 mg p.o. q.h.s.. Aspirin 81 mg p.o. daily discontinued secondary to anemia Seasonal allergies. As last and 1 puff in each nares q.12 hours plus Claritin 10 mg p.o. daily Neuropathy. Lyrica 100 mg p.o. b.i.d. DVT prophylaxis. Eliquis 10 mg p.o. b.i.d. to be converted to 5 mg p.o. b.i.d. after 1 week of treatment Disposition: Patient medically stable for discharge. There was an attempt at discharge on the evening of July 02, 2021 however nursing staff has notified me that there was an issue with ambulance transportation. Will attempt to again attempt to discharge the patient on the day of July 03, 2021 END OF DOCTOR AL?S PROGRESS NOTE Subjective Date/time seen: 07/03/21 07:16 Objective Data Vital Signs Vital Signs: Vital Signs - 24 hr 07/02/21 08:10 07/02/21 08:14 07/02/21 08:17 Temperature Pulse Rate 80 82 Respiratory Rate 16 16 Blood Pressure Pulse Oximetry 96 07/02/21 08:20 07/02/21 14:07 07/02/21 14:40 Temperature 98.9 F Pulse Rate 76 92 Respiratory Rate 18 14 Blood Pressure 105/68 Pulse Oximetry 95 96 07/02/21 20:00 07/02/21 20:51 07/02/21 21:00 Temperature Pulse Rate 79 82 Respiratory Rate 18 16 Blood Pressure Pulse Oximetry 97 96 07/02/21 22:00 07/03/21 01:43 07/03/21 01:54 Temperature 97.3 F L Pulse Rate 78 74 77 Respiratory Rate 18 16 16 Blood Pressure 102/66 Pulse Oximetry 97 07/03/21 06:00 Temperature 97.0 F L Pulse Rate 86 Respiratory Rate 18 Blood Pressure 98/63 L Pulse Oximetry 96 Intake/O
[2021-07-03 07:31] LABS: Anisocytosis 2+ (NORMAL); Hypochromasia 1+ (NORMAL); Platelet Estimate Adequate (Adequate); Stomatocytes 1+ (NORMAL)
[2021-07-03 07:42] LABS: Red Blood Cell Folate >1000 ng/mL RBC (>280)
[2021-07-03 08:00] VITALS: O2SAT 96
--- NOTE | 2021-07-14 06:34 | PM.DS ---
DS: Admitting Diagnosis Discharge Date 07/03/21 Admitting Diagnosis Pulmonary Embolism DS: Summary Hospital Course Hospital Course: See discharge summary below Time Spent with Patient Time attestation: Total time spent providing and/or coordinating discharge services: START OF DOCTOR LAILA?Salma DISCHARGE SUMMARY Date of Admission: June 26, 2021 Date of Discharge: July 03, 2020 Primary Diagnosis: Pulmonary embolism Secondary Diagnosis: COPD/interstitial lung disease for which patient is dependent 3 L Expand pancreatic insufficiency Dementia Anxiety Arthritis Chronic pain Diastolic CHF paragraph degenerative joint disease Depression GERD/gastritis Hyperlipidemia Hypertension History of migraine Overactive bladder Osteoporosis Pulmonary hypertension Hypokalemia, resolved Acute renal insufficiency, resolved Peripheral vascular disease History of TIA Seasonal allergies Neuropathy Anemia with fecal occult blood positive stool for which patient is status post EGD on June 04, 2021 with Gastroenterology which demonstrated gastritis Borderline iron deficiency Consultations: Gastroenterology Disposition: The patient is advised follow-up with Gastroenterology as directed The patient is advised follow-up with her primary care physician 5-7 days post discharge for post hospitalization evaluation Discharge Medications: Eliquis 5 mg PO: 2 tabs p.o. b.i.d. on the left 50 9:00 p.m. on July 08, 2021 then 5 mg p.o. b.i.d. thereafter indefinitely Lasix 20 mg p.o. b.i.d. Gisselle or 20 mEq p.o. daily Ipratropium 17 mcg per spray: 2 puffs q.i.d. Proventil HFA: 90 microsphere spray: 1 puff q.4 hours p.r.n. shortness of breath/wheeze Melatonin 5 mg p.o. q.h.s. Protonix 40 mg p.o. daily Lyrica 150 mg p.o. b.i.d. Trazodone 300 mg p.o. q.h.s. Fosamax 70 mg p.o. weekly Lipitor 80 mg p.o. q.h.s. Asked to last and nasal spray: 1 Shan some migraines per spray: 1 puff in each nares q.12 hours Budesonide 0.5 mg inhaled b.i.d. Zyrtec 10 mg p.o. daily Cymbalta 60 mg p.o. daily Ferrous sulfate 325 mg p.o. daily Folic acid 1 mg p.o. daily [place] 5/325 mg p.o. q.8 hours p.r.n. pain Creon 21056/[id number]/60 1000 units: 2 tabs p.o. t.i.d. with meals Magnesium oxide 400 mg p.o. daily Meclizine 12.5 mg p.o. t.i.d. p.r.n. dizziness/vertigo END OF DOCTOR LAILA?S DISCHARGE SUMMARY DS: Data Data Completed and Pending Completed studies during hospitalization: Pending at discharge 07/01/21 12:10 Surgical [PTH] Routine Discharge Plan Discharge Consulting providers: Mike Lizarraga ; Goran Coulter ; Kole Carey ; Humera Mar Discharging Clinician: laila Patient Disposition: SNF Activity: as tolerated Diet: heart healthy, low sodium, low cholesterol and low fat Discharge Instructions: Diet: 2 L fluid restriction per day for history of diastolic CHF. The patient is advised follow-up with her primary care physician 5-7 days post discharge for post hospitalization evaluation. The patient is advised to follow up with Gastroenterology as directed Patient Instructions: Apixaban (By mouth), Shortness of Breath (GEN) Stand Alone Forms: General Discharge Information Discharge Medications: New Eliquis 5 mg tablet 5 mg PO BID Qty: 1 RF: 0 furosemide [Lasix] 20 mg tablet 20 mg PO BID Qty: 60 RF: 0 potassium chloride 20 mEq tablet extended release 20 meq PO DAILY Qty: 30 RF: 0 Continued pregabalin [Lyrica] 150 mg capsule 150 mg PO BID Qty: 60 RF: 3 Creon 12,000-38,000 -60,000 unit Capsule,Delayed Release(Dr/Ec) 2 cap PO TIDWM Qty: 180 RF: 0 magnesium oxide 400 mg (241.3 mg magnesium) Tablet 400 mg PO QAM Qty: 30 RF: 0 melatonin 5 mg Tablet 5 mg PO HS Qty: 30 RF: 0 hydrocodone-acetaminophen 5-325 mg Tablet 1 tablet PO Q8H PRN (Reason: Pain) RF: 0 i
== END 2021-07-03 08:20 | DRG 177 ==
LOC: ANHED 06:25 → ANHIMU 06:37 → ANH3MEDSUR 06-30 08:17 → ANHIMU 07-06 13:07
PROVIDERS: Internal Medicine; Internal Medicine Gastroenterology; Admitting Provider Internal Medicine; Emergency Provider Emergency Medicine; PCP Internal Medicine; Visit Provider Internal Medicine
PROC: 0DJ08ZZ Inspection of Upper Intestinal Tract, Via Natural or Artificial Opening Endoscopic (ICD-10-PCS; CPT 43235; principal; 2021-07-01 12:45)
DX: U07.1 COVID-19 (principal); I26.99 Other pulmonary embolism without acute cor pulmonale; J12.82 Pneumonia due to coronavirus disease 2019; J96.21 Acute and chronic respiratory failure with hypoxia; J96.22 Acute and chronic respiratory failure with hypercapnia; I50.32 Chronic diastolic (congestive) heart failure; J44.0 Chronic obstructive pulmonary disease with (acute) lower respiratory infection; J44.1 Chronic obstructive pulmonary disease with (acute) exacerbation; K57.30 Diverticulosis of large intestine without perforation or abscess without bleeding; K52.9 Noninfective gastroenteritis and colitis, unspecified; K29.70 Gastritis, unspecified, without bleeding; I11.0 Hypertensive heart disease with heart failure; F03.90 Unspecified dementia, unspecified severity, without behavioral disturbance, psychotic disturbance, mood disturbance, and anxiety; F41.9 Anxiety disorder, unspecified; M19.90 Unspecified osteoarthritis, unspecified site; F32.A Depression, unspecified; E78.5 Hyperlipidemia, unspecified; N32.81 Overactive bladder; K21.9 Gastro-esophageal reflux disease without esophagitis; N28.9 Disorder of kidney and ureter, unspecified; M81.0 Age-related osteoporosis without current pathological fracture; E87.6 Hypokalemia; I73.9 Peripheral vascular disease, unspecified; K86.81 Exocrine pancreatic insufficiency; G62.9 Polyneuropathy, unspecified; Z86.73 Personal history of transient ischemic attack (TIA), and cerebral infarction without residual deficits; Z90.49 Acquired absence of other specified parts of digestive tract; Z98.1 Arthrodesis status; Z87.891 Personal history of nicotine dependence
CPT/HCPCS: 36415; 36600; 70450; 71045; 71275; 80048; 80053; 82274; 82375; 82607; 82728; 82747; 82805; 83050; 83540; 83550; 83615; 83735; 83880; 84132; 84460; 85014; 85018; 85025; 85027; 85610; 85730; 86140; 86900; 86901; 87081; 88305; 93005; 94003; 94640; 96372; 96375; 97110; 97116; 97162; 97165; 97530; 97535; 99285; A9270; G0378; J1100; J1644; J1650; J1940; J2001; J2270; J2405; J2704; J3480; J7120; Q9967

== ENCOUNTER 2021-07-27 17:52 | Emergency (ER) | payer MEDICARE, MEDICAID, SELFPAY ==
--- NOTE | ~2021-07-27 | CT_ITS ---
EXAMINATION: CT cervical spine wo con DATE: 07/27/2021 19:46 INDICATION: Neck pain. TECHNIQUE: Computed tomography (CT) of the cervical spine was performed without intravenous contrast. The dose-length product was 470 mGy-cm. Automated exposure control and iterative reconstruction tech DEONTICSque were employed. COMPARISON: None FINDINGS: Status post anterior cervical fusion and discectomy at C5-6. There is degenerative disc dis ease at C4-5 and C6-7. There is degenerative anterolisthesis at C7-T1. Odontoid process within normal limits. There are small to level degenerative change of the uncinate and facet joints, left greater than right. No acute fracture, subluxation or dislocation. There is carotid atherosclerosis. There is emphysema and fibrosis of the right upper lobe. IMPRESSION: 1. No acute abnormality of the cervical spine. 2: Severe cervical spondylosis. Reviewed, dictated and finalized at location A.
--- NOTE | ~2021-07-27 | CT_ITS ---
EXAMINATION: CT abdomen pelvis w con DATE: 07/27/2021 19:48 INDICATION: Abdominal pain TECHNIQUE: Computed tomography (CT) of the abdomen and pelvis was performed with 100 cc Omnipaque 350 intravenous contrast. The dose-length product was 1085.83 mGy-cm. Automated exposure control and ite rative reconstruction technique were employed. COMPARISON: CT dated 04/17/2021. FINDINGS: There are coarse chronic interstitial changes of the lung bases, likely chronic. Cardiomega ly. Heart size normal. No significant pleural or pericardial effusion. Nonobstructive bowel gas patte rn. Colonic diverticulosis without evidence for diverticulitis. The bladder wall is thickened with pe rivesical infiltration, suspicious for cystitis. No free air or abscess. Status post cholecystectomy with expected prominence of the bile ducts. There are calcified granulomas of the spleen. The pancreas, adrenal glands are unremarkable. There ar e right renal cysts. There is a subtle hypodense lesion of the mid lateral aspect of the left kidney measuring 11 mm with density measurement of 28 Hounsfield units. This is slightly denser than expecte d for simple cyst. There is moderate atherosclerosis without aneurysm. Stable small right adrenal aleksey noma measuring 1.6 cm. There are moderate degenerative changes of the hips. Severe multilevel lower t horacic and lumbar spondylosis. Scoliosis. IMPRESSION: 1. Abnormal thickening of the bladder wall with perivesical fatty infiltration, suspicious for cystit is. 2: Left renal low-density lesion measuring 11 mm, likely complicated cysts. Recommend correlation wit h ultrasound. 3: Coarse interstitial infiltrates of the lung bases, likely chronic fibrosis. Reviewed, dictated and finalized at location A. IMPRESSION: 1. Abnormal thickening of the bladder wall with perivesical fatty infiltration, suspicious for cystitis. 2: Left renal low-density lesion measuring 11 mm, likely complicated cysts. Rec ommend correlation with ultrasound. 3: Coarse interstitial infiltrates of the lung bases, likely chronic fibrosis.
[2021-07-27 18:00] VITALS: BP 134/84; PULSE 106; RESP 16; TEMP 36.8; O2SAT 96
--- NOTE | 2021-07-27 18:12 | ED.ABDPAIN ---
HPI - Abdominal Pain General Chief Complaint: Abdominal Pain Stated Complaint: ABD PAIN Time Seen by Provider: 07/27/21 18:05 Source: patient Mode of arrival: ambulatory Limitations: no limitations History of Present Illness HPI narrative: Patient is a 76-year-old female complaining of abdominal pain, diffuse, 8 out of 10, aching, nonradiating started 1 week ago. Patient also complaining of neck pain, left sided, worse with movement and palpation started 1 week ago. Patient denies any headache, chest pain, shortness of breath, nausea, vomiting, diarrhea, urinary symptoms, fever or chills. Related Data Home Medications Medication Instructions Recorded Confirmed azelastine 137 mcg INTRANASAL Q12H 04/03/21 06/26/21 omeprazole 40 mg PO DAILY 04/03/21 06/26/21 hydrocodone-acetaminophen 1 tablet PO Q8H PRN 06/26/21 06/26/21 ipratropium bromide 2 puff INHALATION QID 06/26/21 06/26/21 Allergies Allergy/AdvReac Type Severity Reaction Status Date / Time No Known Allergies Allergy Unknown Verified 07/01/21 11:07 Review of Systems Review of Systems: All systems reviewed & are unremarkable except as noted in HPI and below Constitutional: Constitutional: Denies body ache(s), Denies chills, Denies excessive sweating, Denies fatigue, Denies fever(s), Denies headache(s), Denies lethargy, Denies malaise, Denies weakness and Denies weight loss Eyes: Eyes: Denies blurry vision, Denies change in vision and Denies loss of vision ENT: Denies dizziness, Denies ear discharge, Denies headache(s), Denies lip swelling, Denies epistaxis, Denies nasal congestion, Denies neck pain, Denies throat swelling and Denies tongue swelling Cardiovascular: Cardiovascular: Denies chest pain, Denies chest pain at rest, Denies chest pain with activity, Denies diaphoresis, Denies rapid heart rate, Denies edema, Denies irregular heart rhythm, Denies lightheadedness, Denies palpitations, Denies dyspnea and Denies dyspnea on exertion Respiratory: Respiratory: Denies chest congestion, Denies cough, Denies hemoptysis, Denies dyspnea and Denies dyspnea on exertion Gastrointestinal: Gastrointestinal: Denies melena, Denies hematochezia, Denies diarrhea, Denies nausea, Denies vomiting and Denies hematemesis Musculoskeletal: Musculoskeletal: Denies abnormal gait, Denies deformity, Denies joint swelling, Denies limited range of motion, Denies neck pain and Denies numbness Neurologic: Denies Abnormal speech present, Denies abnormal gait, Denies confusion, Denies dizziness, Denies headache(s), Denies focal weakness, Denies loss of vision, Denies numbness, Denies Other visual disturbances, Denies Sensory deficit (Neuro) and Denies weakness Psychiatric: Psychiatric: Denies confusion, Denies depression, Denies auditory hallucinations, Denies homicidal ideation and Denies suicidal ideation Endocrine: Endocrine: Denies cold intolerance, Denies excessive sweating, Denies fatigue, Denies heat intolerance and Denies palpitations Hematologic/Lymphatic: Hematologic/Lymphatic: Denies easy bleeding and Denies easy bruising Allergic/Immunologic: Allergic/Immunologic: Denies lip swelling, Denies throat swelling and Denies tongue swelling PMFSH Past Medical History Medical History Anemia Anxiety Arthritis Back pain Bilateral shoulder pain CHF (congestive heart failure) Diastolic COPD (chronic obstructive pulmonary disease) On home O2 3L Degenerative joint disease of both hips Dementia Depression 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 Emphysema of lung Exocrine pancreatic insufficiency GERD (gastroesophageal reflux disease) GI bleed H/O ulcer disease Herniated disc HLD (hyperlipidemia) HTN (hypertension) Migraine OAB (overactive bladder) Osteoporosis Pancreatitis Pneumonia Prediabetes PVD (peripheral vascular disease) TIA (transient ischemic attack) UTI (urinary tract infection) Wears dentures Surgical History S
[2021-07-27 18:51] LABS: Basophils Percent Auto 0.3 % (0.2-1.2); Eosinophils Absolute Auto 0.3 K/mm3 (0-0.3); Eosinophils Percent Auto 2.5 % (0-4.4); Hemoglobin 8.1 g/dL (12.0-15.0); Immature Granulocyte Absolute 0.05 K/mm3 (0.00-0.031); Immature Granulocyte Percent A 0.4 % (0-0.5); Lymphocytes Absolute Auto 1.84 K/mm3 (0.9-3.2); Lymphocytes Percent Auto 15.2 % (18.3-44.2); Mean Corpuscular HGB Conc 28.9 g/dl (32-36); Mean Corpuscular Hemoglobin 27.1 pg (26-34); Mean Corpuscular Volume 93.6 fl (80-100); Mean Platelet Volume 10.8 fl (7.4-10.4); Monocytes Absolute Auto 1.2 K/mm3 (0.1-0.6); Monocytes Percent Auto 10.2 % (2.6-8.5); Neutrophils Absolute Auto 8.6 K/mm3 (1.3-6.7); Neutrophils Percent Auto 71.4 % (45.5-73.1); Platelet Count Result 405 k/mm3 (150-375); Red Blood Count 2.99 M/mm3 (4.2-5.4); Red Cell Distribution Width 19.3 % (11.5-14.5); White Blood Count 12.1 K/mm3 (4.5-10.0)
[2021-07-27 19:05] LABS: Lactic Acid Reflex 1.2 mmol/L (0.7-2.1)
[2021-07-27 19:15] LABS: Alanine Aminotransferase 12 U/L (4-35); Albumin Level 3.4 g/dL (3.5-5.1); Alkaline Phosphatase 119 U/L (38-126); Aspartate Amino Transferase 31 U/L (14-36); Bilirubin,Total 0.3 mg/dL (0.2-1.3); Blood Urea Nitrogen 12 mg/dL (7-17); Calcium 8.9 mg/dL (8.4-10.2); Carbon Dioxide > 40 mmol/L (22-30); Chloride 92 mmol/L (98-107); Estimated CRCL calculation 48 ml/min; Estimated Glomerular Filt Rate > 60; Glucose 125 mg/dL (65-110); Lipase 40 U/L (23-300); Potassium 4.4 mmol/L (3.4-5.0); Sodium 138 mmol/L (137-145)
[2021-07-27 19:26] LABS: Hypochromasia 1+ (NORMAL); Platelet Estimate Increased (Adequate)
[2021-07-27] MEDS: SODIUM CHLORIDE 0.9% IV 1,000 ML 999 ML IV CONT (19:54)
[2021-07-27 20:40] LABS: Add Urine Microscopic? YES; Appearance Urine Cloudy (Clear); Bacteria Urine 1+ /hpf; Bilirubin Urine Negative (Negative); Blood Urine Negative (Negative); Color Urine Yellow (Yellow); Glucose Urine UA Negative (Negative); Ketones Urine Negative (Negative); Leukocyte Esterase Ur 3+ LEU/UL (Negative); Mucus Urine Rare /lpf; Nitrate Urine Positive (Negative); Protein Urine 1+ mg/dL (Negative); Specific Grav Ur 1.016 (1.001-1.035); Squamous Epithelial Cell Urine Rare /hpf (Few); Urobilinogen Urine Negative mg/dL (<2.0); WBC Urine 51-75 /hpf
[2021-07-27] MEDS: HYDROmorphone HCL INJ (*CRX) 1 MG/ML SYR 0.5 MG IV PUSH (20:53)
[2021-07-27] MEDS: ONDANSETRON INJ 4 MG/2 ML VIAL IV PUSH (20:54)
--- NOTE | 2021-07-27 22:28 | PC.NURSE ---
called [facility] to request transport. ETA midnight Called [facility] to request transport. No transfer truck tonight.
== END 2021-07-28 00:50 ==
PROVIDERS: Emergency Provider Emergency Medicine; PCP Internal Medicine
DX: N30.01 Acute cystitis with hematuria (principal); I50.30 Unspecified diastolic (congestive) heart failure; I11.0 Hypertensive heart disease with heart failure; J44.9 Chronic obstructive pulmonary disease, unspecified; F03.90 Unspecified dementia, unspecified severity, without behavioral disturbance, psychotic disturbance, mood disturbance, and anxiety; K86.81 Exocrine pancreatic insufficiency; E78.5 Hyperlipidemia, unspecified; R73.03 Prediabetes; N32.81 Overactive bladder; K21.9 Gastro-esophageal reflux disease without esophagitis; M19.011 Primary osteoarthritis, right shoulder; M19.012 Primary osteoarthritis, left shoulder; M16.0 Bilateral primary osteoarthritis of hip; M81.0 Age-related osteoporosis without current pathological fracture; Z99.81 Dependence on supplemental oxygen; Z86.73 Personal history of transient ischemic attack (TIA), and cerebral infarction without residual deficits; Z87.440 Personal history of urinary (tract) infections; Z98.1 Arthrodesis status; Z87.891 Personal history of nicotine dependence; M47.812 Spondylosis without myelopathy or radiculopathy, cervical region
CPT/HCPCS: 36415; 72125; 74177; 80053; 81001; 83605; 83690; 85025; 87086; 87088; 96361; 96365; 96375; 99284; J0696; J1170; J2405; J7030; Q9967

== ENCOUNTER 2021-08-09 13:25 | Outpatient (CLI) | payer MEDICARE, MEDICAID, SELFPAY ==
--- NOTE | 2021-08-09 13:00 | ECHO_ITS ---
Patient Info Name: Gabbi Champagne Age: 76 years : 1945 Gender: Female Ht: 63 in Wt: 136 lbs BSA: 1.67 m2 HR: 74 bpm BP: 140 / 80 mmHg Heart Rhythm: Sinus Rhythm Exam Date: 08/09/2021 2:49 PM Exam Location: [facility] Patient Status: Outpatient Admit Date: 08/09/2021 Staff Ordering Physician: Carmelita Coronel MD Manufacturing Associate: Kenisha Guevara RDCS Attending Provider: Carmelita Coronel MD Referring Physician: Berna WINSLOW; Exam Type: CA echo doppler color flow Study Info Indications I50.9 - Heart failure, unspecified Complete two-dimensional, color flow and Doppler transthoracic echocardiogram is performed. Summary 1. Complete two-dimensional, color flow and Doppler transthoracic echocardiogram is performed. 2. There is mild concentric increased left ventricular wall thickness. 3. Left ventricular systolic function is normal, estimated at 50-55%. 4. The left ventricular diastolic function is grade I diastolic dysfunction. 5. Left atrial chamber dimension is moderately enlarged. 6. 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 Left Ventricle Left ventricular chamber dimension is normal. Left ventricular systolic function is normal, estimated at 50-55%. There is mild concentric increased left ventricular wall thickness. The left ventricular diastolic function is grade I diastolic dysfunction. Right Ventricle Right ventricular chamber dimension is normal. Left Atria Left atrial chamber dimension is moderately enlarged. Right Atria Right atrial chamber dimension is normal. 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 Aortic Valve The aortic valve is trileaflet. There is mild aortic valve sclerosis. Pulmonic Valve The pulmonic valve is not well visualized. Mitral Valve The mitral valve has normal leaflets. Tricuspid Valve The tricuspid valve leaflets are normal. There is mild tricuspid valve regurgitation. Pericardium/Pleural The pericardium appears normal. Aorta The aortic root size at the sinus of Valsalva is normal. Left Ventricular Outflow Tract Name Value Normal LVOT 2D LVOT Diameter 2.0 cm LVOT Doppler LVOT Peak Gradient 5 mmHg LVOT Mean Gradient 2 mmHg LVOT VTI 22 cm LVOT VTI/AV VTI Ratio 0.6 LVOT Stroke Volume 70 ml Pulmonic Valve Name Value Normal RVOT Doppler RVOT Peak Gradient 2 mmHg PV Doppler PV Peak Gradient 4 mmHg Mitral Valve Name Value Normal
== END 2021-08-09 13:26 | disposition home or self-care (01) ==
LOC: ANHCARD 13:37
PROVIDERS: PCP Internal Medicine
DX: I50.9 Heart failure, unspecified (principal); M25.551 Pain in right hip; M25.552 Pain in left hip
CPT/HCPCS: 93306

== ENCOUNTER 2021-08-17 07:55 | Outpatient (CLI) | payer MEDICARE, MEDICAID, SELFPAY ==
--- NOTE | ~2021-08-17 | CT_ITS ---
EXAMINATION: CT diagnostic chest wo con EXAM DATE: 08/17/2021 08:31 INDICATION: Abnormal x-ray, COPD. TECHNIQUE: Spiral CT of the chest without contrast. Axial, coronal and sagittal images of the chest were reviewed. Coronal maximum intensity pixel images of chest reviewed. The dose-length product ( DLP) for this examination was 438.01 mGy-cm. The exposure was tailored according to patient size (au to mA exposure control), and iterative reconstruction (ASIR) was used as additional dose reduction te chnique. Comparison is made to prior examination from 06/27/2021. FINDINGS: The main, central pulmonary arteries are dilated which can indicate elevated pulmonary [place] rial pressure, pulmonary arterial hypertension. There is mild cardiomegaly. There is dependent ground glass opacity and interlobular septal thickening, most consistent with mild pulmonary edema superimpo sed on mild chronic interstitial lung disease. Superimposed pneumonia not excludable. No thoracic aor tic dissection. Elevated right hemidiaphragm with adjacent atelectasis. There are no pleural or pericardial effusions . Tracheobronchial tree is patent. No mediastinal, axillary or definite hilar lymphadenopathy. T here is no pneumothorax. No evidence of coronary arterial calcification. There are cholecystectomy clips. The bones are unremarkable. There is cervical fusion hardware. Old right rib fractures later ally. Moderate bilateral glenohumeral primary osteoarthritis. IMPRESSION: 1. Improvement in cardiomegaly and resolution of previously seen pulmonary edema. 2. Mild interstitial lung disease. 3. Pulmonary arterial hypertension. 4. Elevated right hemidiaphragm, adjacent atelectasis. Reviewed, dictated and finalized at location B. ITAL PHARMACIST IMPRESSION: 1. Improvement in cardiomegaly and resolution of previously seen pulmonary katie ma. 2. Mild interstitial lung disease. 3. Pulmonary arterial hypertension. 4. Elevated right hemidiaphragm, adjacent atelectasis.
== END 2021-08-17 07:56 | disposition home or self-care (01) ==
PROVIDERS: PCP Internal Medicine
DX: J84.9 Interstitial pulmonary disease, unspecified (principal); I27.20 Pulmonary hypertension, unspecified
CPT/HCPCS: 71250

== ENCOUNTER 2021-09-30 09:17 | Outpatient (CLI) | payer MEDICARE, MEDICAID, SELFPAY ==
--- NOTE | ~2021-09-30 | CT_ITS ---
EXAMINATION: CT abdomen pelvis w con EXAM DATE: 09/30/2021 09:54 INDICATION: Abdominal pain. TECHNIQUE: Spiral CT of the abdomen and pelvis was performed following intravenous injection of 100 m L Omnipaque 350. Axial, coronal and sagittal images of the abdomen and pelvis were reviewed. The do se-length product (DLP) for this examination was 723.13 mGy-cm. The exposure was tailored according to patient size (auto mA exposure control), and iterative reconstruction (ASIR) was used as additiona l dose reduction technique. Comparison is made to prior examination from 07/27/2021. Correlation was made with chest CT 08/17/2021. FINDINGS: The liver, spleen, adrenal glands and pancreas are unremarkable. There are surgical clips in the gallbladder fossa. Some biliary duct dilation which is common finding following cholecystecto my. Previously described low-density left renal lesion is a cyst, better visualized on this exam. Thi s measures about 1 cm. Smaller cysts on the right. Portal and splenic veins are patent. Kidneys enh ance symmetrically. There is no hydronephrosis. The uterus is not identified and has likely been s urgically resected. The bladder is unremarkable. There is no retroperitoneal or pelvic lymphadenopa thy. There is mild to moderate scattered arteriosclerotic disease. The appendix is normal. There is mild scattered colonic diverticulosis. There is no adjacent inflamm atory change to suggest diverticulitis. The stomach and small bowel are unremarkable. There is expec leatha amount of colonic stool. No free intraperitoneal gas. The heart is normal in size. There are no pericardial or pleural effusions. Dilated pulmonary arteries, pulmonary arterial hypertension. M ild to moderate interlobular septal thickening, likely chronic interstitial lung disease. Heart is up per limits of normal in size. There are no osteoblastic or osteolytic lesions identified. Interbody fusion at L4-5. Advanced thoracolumbar disc disease. IMPRESSION: 1. No acute intra-abdominal findings. 2. Mild colonic diverticulosis. 3. Pulmonary arterial hypertension. 4. Mild to moderate interstitial lung disease. Reviewed, dictated and finalized at location A. R AGENT
[2021-09-30 09:53] LABS: Estimated Glomerular Filt Rate > 60
== END 2021-09-30 09:18 | disposition home or self-care (01) ==
LOC: ANHIMG 09:21
PROVIDERS: PCP Internal Medicine; Visit Provider Internal Medicine
DX: K57.30 Diverticulosis of large intestine without perforation or abscess without bleeding (principal); I27.20 Pulmonary hypertension, unspecified; J84.9 Interstitial pulmonary disease, unspecified
CPT/HCPCS: 74177; Q9967

== ENCOUNTER 2021-10-09 10:42 | Observation (INO) | payer MEDICARE, MEDICAID, SELFPAY ==
[2021-10-09] VITALS (40 sets, daily range): BP systolic 110–152; BP diastolic 56–89; PULSE 84–108; RESP 11–20; TEMP 36.5–36.9; O2SAT 77–100; BMI 29.0
--- NOTE | ~2021-10-09 | CT_ITS ---
EXAMINATION: CTA chest PE protocol DATE: 10/09/2021 17:09 INDICATION: Hypoxemia TECHNIQUE: Computed tomography angiography (CTA) of the chest was performed with 100 mL Omnipaque-350 intravenous contrast timed to evaluate the pulmonary arteries. Coronal maximum intensity projection 3D-reconstructions were created by the technologist. The dose-length product (DLP) was 666.48 mGy-cm. Automated exposure control and iterative reconstruction technique were employed. COMPARISON: 08/17/2021 FINDINGS: The pulmonary arteries are well-opacified. Respiratory motion artifact slightly limits the examination. No pulmonary embolism is identified. There is enlargement of the main and central pulmon addis arteries, consistent with pulmonary hypertension. Again noted are areas of honeycombing in the up per lobes. There are minimal patchy opacities of the lungs, particularly in the lingula. No pleural e ffusion or pneumothorax is identified. There is mild bilateral hilar and mediastinal lymphadenopathy. Cardiomegaly is noted. The gallbladder is surgically absent. 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 There is mild thoracic spondylosis. IMPRESSION: 1. No pulmonary embolus identified, sensitivity slightly limited by motion artifact. 2. Patchy opacities of the lungs, particularly in the lingula, consistent with atelectasis versus pne umonia. 3. Stable chronic interstitial lung disease of the upper lobes. Reviewed, dictated and finalized at location F. KBROKER IMPRESSION: 1. No pulmonary embolus identified, sensitivity slightly limited by motion cherie fact. 2. Patchy opacities of the lungs, particularly in the lingula, consistent with atelectasis versus pneumonia. 3. Stable chronic interstitial lung disease of the upper lobes.
--- NOTE | ~2021-10-09 | CT_ITS ---
EXAMINATION: CT brain wo con DATE: 10/09/2021 12:35 INDICATION: Confusion. TECHNIQUE: Computed tomography (CT) of the head was performed without intravenous contrast. The mA wa s adjusted according to patient size. Iterative reconstruction technique was employed. The dose-lengt h product was 681.00 mGy-cm. COMPARISON: Head CT 06/27/21 FINDINGS: There are scattered areas of low attenuation in the cerebral white matter. There are old in farcts in the bilateral basal ganglia. There is no intracranial hemorrhage, acute infarction, or abno rmal intracranial mass lesion. The ventricles are normal in size. There is mild mucosal thickening in the paranasal sinuses. The mastoid air cells are normal. There are likely changes of ocular lens rep lacement surgeries. IMPRESSION: 1. Old lacunar infarcts in the bilateral basal ganglia. 2. Mild nonspecific cerebral white matter disease, which likely represents chronic small vessel ische joshua disease. Reviewed, dictated and finalized at location A. E CHEF IMPRESSION: 1. Old lacunar infarcts in the bilateral basal ganglia. 2. Mild nonspecific cerebral white matter disease, which likely represents machine umbrella tipper gladys small vessel ischemic disease.
--- NOTE | ~2021-10-09 | XR_ITS ---
EXAMINATION: XR chest 1V portable DATE: 10/09/2021 11:44 INDICATION: Cough. Altered mental status. TECHNIQUE: A single frontal view of the chest was obtained. COMPARISON: Chest single view 06/26/2021, CT abdomen and pelvis 09/30/2021 FINDINGS: There is chronic elevation of right hemidiaphragm. There are airspace and interstitial opac ities in all lung zones bilaterally. No pleural effusion or pneumothorax. Cardiomegaly is noted. Ther e are changes of anterior fusion procedure in cervical spine. IMPRESSION: 1. Diffuse lung disease, consistent with chronic interstitial lung disease. Worsening at left lung ba se may be atelectasis/scarring or pneumonia. 2. Chronic marked elevation of right hemidiaphragm. 3. Cardiomegaly. Reviewed, dictated and finalized at location A. BLOCKER IMPRESSION: 1. Diffuse lung disease, consistent with chronic interstitial lung disease. Wor sening at left lung base may be atelectasis/scarring or pneumonia. 2. Chronic marked elevation of right hemidiaphragm. 3. Cardiomegaly.
--- NOTE | 2021-10-09 11:02 | ECG_ITS ---
Measurements Intervals [place] Rate: 87 P: 52 IL: 139 QRS: -29 QRSD: 89 T: 52 QT: 346 QTc: 417 Interpretive Statements SINUS RHYTHM INCOMPLETE RIGHT BUNDLE BRANCH BLOCK CONSIDER INFERIOR INFARCT, AGE INDETERMINATE BASELINE ARTIFACT- I, II, III, AVR, AVL, AVF, V1-V6 ABNORMAL ECG Electronically Signed On 10-09-2021 12:28:38 DENTAL CHAIR ASSEMBLER by Kole Carey D.O.
[2021-10-09 11:13] LABS: Basophils Percent Auto 0.3 % (0.2-1.2); Eosinophils Absolute Auto 0.4 K/mm3 (0-0.3); Eosinophils Percent Auto 4.3 % (0-4.4); Hemoglobin 9.6 g/dL (12.0-15.0); Immature Granulocyte Absolute 0.03 K/mm3 (0.00-0.031); Immature Granulocyte Percent A 0.3 % (0-0.5); Lymphocytes Absolute Auto 2.03 K/mm3 (0.9-3.2); Lymphocytes Percent Auto 23.2 % (18.3-44.2); Mean Corpuscular Hemoglobin 28.2 pg (26-34); Mean Corpuscular Volume 93.8 fl (80-100); Mean Platelet Volume 10.9 fl (7.4-10.4); Monocytes Absolute Auto 0.7 K/mm3 (0.1-0.6); Monocytes Percent Auto 7.4 % (2.6-8.5); Neutrophils Absolute Auto 5.6 K/mm3 (1.3-6.7); Neutrophils Percent Auto 64.5 % (45.5-73.1); Platelet Count Result 263 k/mm3 (150-375); Red Blood Count 3.41 M/mm3 (4.2-5.4); Red Cell Distribution Width 17.1 % (11.5-14.5); White Blood Count 8.8 K/mm3 (4.5-10.0)
[2021-10-09 11:23] LABS: Alanine Aminotransferase 15 U/L (4-35); Albumin Level 3.9 g/dL (3.5-5.1); Alkaline Phosphatase 79 U/L (38-126); Anion Gap 7 mmol/L (8-16); Aspartate Amino Transferase 22 U/L (14-36); Bilirubin,Total 0.3 mg/dL (0.2-1.3); Blood Urea Nitrogen 9 mg/dL (7-17); Calcium 9.4 mg/dL (8.4-10.2); Carbon Dioxide 38 mmol/L (22-30); Chloride 93 mmol/L (98-107); Estimated CRCL calculation 48 ml/min; Estimated Glomerular Filt Rate > 60; Glucose 151 mg/dL (65-110); INR 1.3; Potassium 4.2 mmol/L (3.4-5.0); Prothrombin Time 16.2 Seconds (11.1-14.7); Sodium 138 mmol/L (137-145)
[2021-10-09 11:24] LABS: Partial Thromboplastin Time 54.9 SECONDS (22.3-36.8)
[2021-10-09 11:29] LABS: Add Urine Microscopic? NO; Appearance Urine Clear (Clear); Bilirubin Urine Negative (Negative); Blood Urine Negative (Negative); Color Urine Yellow (Yellow); Glucose Urine UA Negative (Negative); Ketones Urine Negative (Negative); Leukocyte Esterase Ur Negative LEU/UL (Negative); Nitrate Urine Negative (Negative); Protein Urine Negative (Negative); Specific Grav Ur 1.013 (1.001-1.035); Urobilinogen Urine Negative mg/dL (<2.0)
--- NOTE | 2021-10-09 11:37 | ED.GENADULT ---
HPI - General Adult General Chief complaint: Altered Mental Status Stated complaint: AMS Source: EMS and RN notes reviewed Mode of arrival: EMS Limitations: altered mental status History of Present Illness HPI narrative: Patient sent in from residential with reports of altered mental status. She currently resides at [facility] she has an underlying history of COVID interstitial pulmonary disease, emphysema, metabolic encephalopathy, urinary tract infection, CHF, COPD, arthritis, tobacco use, pancreatic insufficiency, depression, restless leg syndrome, allergic rhinitis, hypertension, anemia, hyperlipidemia, dementia, frequent falls. On my initial evaluation she is unable to provide me with much meaningful history. I contacted facility and spoke with nursing staff that informed me that patient has become increasingly confused over the last week, worse in the last 2 days. She typically wears 2 L of oxygen at the facility. She has been treated for pneumonia twice recently with rocephin, once from 09/28/21-10/04/20 and again 10/05/20 through present time. Pt had CXR performed on 10/06/20 that showed left peripheral and basilar infiltrates with interstitial lung markings, unchanged from prior. Nursing staff informed me that patient's baseline status is oriented to person place and time, although at present time she is not oriented to person place or time. Nursing staff does believe that patient has had Covid in the past. Cough seems slightly worse as of late. Related Data Home Medications Medication Instructions Recorded Confirmed azelastine 137 mcg INTRANASAL Q12H 04/03/21 06/26/21 omeprazole 40 mg PO DAILY 04/03/21 06/26/21 hydrocodone-acetaminophen 1 tablet PO Q8H PRN 06/26/21 06/26/21 Saccharomyces boulardii [Florastor] 250 mg PO TID 10/09/21 carvedilol [Coreg] 3.125 mg PO BID 10/09/21 ceftriaxone 10/09/21 diclofenac sodium [Voltaren 2 g TOPICAL TID 10/09/21 Arthritis Pain] guaifenesin [Guaifenesin LA] 600 mg PO BID 10/09/21 umeclidinium 1 inh INHALATION DAILY 10/09/21 Allergies Allergy/AdvReac Type Severity Reaction Status Date / Time No Known Allergies Allergy Unknown Verified 07/01/21 11:07 Review of Systems Review of Systems: ROS unobtainable: Yes unobtainable due to mental status [facility] Past Medical History Medical History Anemia Anxiety Arthritis Back pain Bilateral shoulder pain CHF (congestive heart failure) Diastolic COPD (chronic obstructive pulmonary disease) On home O2 3L Degenerative joint disease of both hips Dementia Depression 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 Emphysema of lung Exocrine pancreatic insufficiency GERD (gastroesophageal reflux disease) GI bleed H/O ulcer disease Herniated disc HLD (hyperlipidemia) HTN (hypertension) Migraine OAB (overactive bladder) Osteoporosis Pancreatitis Pneumonia Prediabetes PVD (peripheral vascular disease) TIA (transient ischemic attack) UTI (urinary tract infection) Wears dentures Surgical History Surgical History H/O neck surgery 2001 History of back surgery 1999 History of bladder suspension procedure History of cardiac cath History of cholecystectomy History of hysterectomy History of lumbar fusion x2 History of tonsillectomy History of tubal ligation History of vascular surgery lt leg arteroplasty Family History Family History Father Family history of Parkinson's disease Sibling Patient's brother is in good health Mother Family history of chronic obstructive pulmonary disease Family history of pancreatic cancer Social History Social History Social History: Code status: Full code (per EMR) Smoking packs per day: 1 Smok
[2021-10-09 12:26] LABS: Troponin I < 0.012 ng/mL (0.000-0.034)
[2021-10-09 13:47] LABS: SARS-CoV-2 RNA PCR Negative
[2021-10-09 15:13] LABS: Troponin I < 0.012 ng/mL (0.000-0.034)
[2021-10-09 15:14] LABS: Base Excess ABG 11.2 mEq/l (+/-2.0); Fractional Inspired Oxygen 24 %; HCO3 ABG 38.3 mEq/l (22.0-26.0); Oxygen Content ABG 14.3 %vol (16.0-22.0); Oxygen Saturation ABG 97.1 % (95.0-100.0); PO2 FiO2 Ratio Arterial Blood 4.08 %; Total Hemoglobin 10.5 g/dL (12.0-18.0); pH ABG 7.387 (7.350-7.450)
[2021-10-09 15:17] LABS: PCO2 ABG 65.1 mmHg (35.0-45.0)
[2021-10-09 15:18] LABS: Device NASAL CANNULA; Site Drawn LEFT BRACHIAL
[2021-10-09 15:44] LABS: NT Pro B Type Natriuretic Pept 149 pg/mL (5-100)
--- NOTE | 2021-10-09 17:28 | ADMGEN ---
This patient, Gabbi Champagne, was admitted to Medical Room 255-. Patient/family oriented to hospital policies and general routines including ID bracelet, bed and alarms, visiting hours, pain management, procedures, bathroom and other care routines, personal items, smoking policy, room service/diet, and visiting hours. Information on how to activate the Rapid Response Team has been discussed. Patient/Family are encouraged to report perceived risks to care and to ask questions if they do not understand what they are told or what they should do.
--- NOTE | 2021-10-09 20:15 | PM.IMHP ---
H&P: HPI History of Present Illness Date/Time: 10/09/21 20:15 Chief Complaint: Altered mental status. Narrative: This is a 76-year-old female with history of stroke, dementia, chronic interstitial lung disease with chronic respiratory failure, COPD, exocrine pancreatic insufficiency, C diff colitis, and other comorbidities who presented to the emergency department earlier today via EMS from [facility] for evaluation of altered mental status. At the time my evaluation she is very chatty and is alert and oriented x2. She is aware that she is in the hospital however she does not recall why she was brought here. At times throughout the interview she will say something bizarre, referencing the fact that she believes that we are somewhere that may get us and trouble if the rn child were to find out. As such she is not a reliable historian in the majority of the following is obtained via a review of her electronic medical records. According to staff at the [facility], she was sent in today because she was ?just not acting right? and they have noticed that she has been increasingly confused over the past 1 week though that has been much worse in the past couple of days. She is known to the hospitalist service and it looks like she had COVID in June 2021. According to [facility] staff, she was treated with IM Rocephin between 09/28/2021 and 10/04/2021 for pneumonia and apparently the antibiotics were restarted yesterday due to persistent infiltrates noted on chest x-ray taken 10/06/2020. On arrival to the emergency department today she was hypoxic in the upper 70s though she was not on her chronic 2 L. Since being placed on her home oxygen setting, her SpO2 has been above 90%. Her vital signs have been stable since arrival. Labs and ABG done in the emergency department were relatively unremarkable and appear to be at baseline. Urinalysis was unremarkable. Chest x-ray showed findings consistent with her chronic lung disease. CTA of the chest showed no pulmonary embolus though sensitivity was slightly limited by motion artifact. Patchy opacities of the lungs were noted, particularly in the lingula, consistent with atelectasis versus pneumonia, as well as stable chronic interstitial lung disease of the upper lobes. Given her worsening confusion, she is being admitted for further assessment and evaluation. As mentioned at the time my evaluation she is sitting up watching television and she is very chatty and pleasant. She has no complaints aside from perhaps a mild headache. She specifically denies fever, chills, sweats, vertigo, focal weakness, paresthesias, sinus congestion, rhinorrhea, otalgia, odynophagia, chest pain, cough, palpitations, vomiting, diarrhea, and dysuria. Review of Systems Review of Systems: Twelve systems were reviewed and are negative except for as per HPI. Accuracy is somewhat questionable given her confusion though she seems to be close to baseline at this time. [facility] Past Medical History Medical History (Updated 10/10/21 @ 00:48 by Char Quiroz PA-C) Anemia of chronic disease Anxiety Arthritis Cerebrovascular accident Chronic interstitial lung disease Chronic obstructive pulmonary disease Chronic respiratory failure with hypoxia and hypercapnia On 2 to 3 L nasal cannula. Clostridium difficile diarrhea Dementia Depression Diastolic congestive heart failure Emphysema of lung Exocrine pancreatic insufficiency Gastroesophageal reflux disease GI bleed Herniated disc History of peptic ulcer Hyperlipidemia Hypertension Migraine Osteoporosis Overactive bladder Pancreatitis Peripheral vascular disease Pneumonia due to 2019-nCoV (06/11/21) Prediabetes Pulmonary arterial hypertension Pulmonary embolism (06/2021) Surgical History Surgical History (Updated 10/10/21 @ 00:38 by Char Quiroz PA-C) History of bladder suspension procedure History of cardiac cath History of cholecystectomy History of hysterectom
[2021-10-09] MEDS: ONDANSETRON INJ 4 MG/2 ML VIAL IV PUSH (22:03)
[2021-10-10] VITALS (13 sets, daily range): BP systolic 114–138; BP diastolic 54–78; PULSE 68–103; RESP 16–20; TEMP 36.2–36.5; O2SAT 93–99
[2021-10-10 05:46] LABS: Basophils Absolute Auto 0.1 K/mm3 (0.0-0.1); Basophils Percent Auto 0.5 % (0.2-1.2); Eosinophils Absolute Auto 0.2 K/mm3 (0-0.3); Eosinophils Percent Auto 1.9 % (0-4.4); Hematocrit 30.7 % (37.0-47.0); Hemoglobin 9.5 g/dL (12.0-15.0); Immature Granulocyte Absolute 0.06 K/mm3 (0.00-0.031); Immature Granulocyte Percent A 0.6 % (0-0.5); Lymphocytes Absolute Auto 1.95 K/mm3 (0.9-3.2); Lymphocytes Percent Auto 19.9 % (18.3-44.2); Mean Corpuscular HGB Conc 30.9 g/dl (32-36); Mean Corpuscular Hemoglobin 27.7 pg (26-34); Mean Corpuscular Volume 89.5 fl (80-100); Mean Platelet Volume 10.6 fl (7.4-10.4); Monocytes Absolute Auto 0.7 K/mm3 (0.1-0.6); Monocytes Percent Auto 7.6 % (2.6-8.5); Neutrophils Absolute Auto 6.8 K/mm3 (1.3-6.7); Neutrophils Percent Auto 69.5 % (45.5-73.1); Platelet Count Result 298 k/mm3 (150-375); Red Blood Count 3.43 M/mm3 (4.2-5.4); Red Cell Distribution Width 16.3 % (11.5-14.5); White Blood Count 9.8 K/mm3 (4.5-10.0)
[2021-10-10 05:59] LABS: Alanine Aminotransferase 13 U/L (4-35); Albumin Level 3.9 g/dL (3.5-5.1); Alkaline Phosphatase 78 U/L (38-126); Anion Gap 8 mmol/L (8-16); Aspartate Amino Transferase 22 U/L (14-36); Bilirubin,Total 0.4 mg/dL (0.2-1.3); Blood Urea Nitrogen 8 mg/dL (7-17); Calcium 9.3 mg/dL (8.4-10.2); Carbon Dioxide 36 mmol/L (22-30); Chloride 90 mmol/L (98-107); Estimated CRCL calculation 73 ml/min; Estimated Glomerular Filt Rate > 60; Glucose 119 mg/dL (65-110); Magnesium 1.5 mg/dL (1.6-2.3); Sodium 134 mmol/L (137-145)
[2021-10-10] MEDS: LIPASE/AMYLASE/PROTEASE 12,000 UNITS CAP 2 CAP PO ×3 (08:11→16:56)
[2021-10-10] MEDS: ATORVASTATIN 40 MG TABLET 80 MG PO (08:11)
[2021-10-10] MEDS: SACCHAROMYCES BOULARDII 250 MG CAPSULE PO ×3 (08:11→16:56)
[2021-10-10] MEDS: FERROUS SULFATE 324 MG TABLET PO (08:11)
[2021-10-10] MEDS: guaiFENesin 12 HR 600 MG TABCR PO ×2 (08:12→21:26)
[2021-10-10] MEDS: carvediloL 3.125 MG TABLET PO ×2 (08:12→21:25)
[2021-10-10] MEDS: DULoxetine HCL 60 MG CAPSULE.DR PO (08:12)
[2021-10-10] MEDS: LORATADINE 10 MG TABLET PO (08:12)
[2021-10-10] MEDS: POTASSIUM CHLORIDE 20 MEQ TABLET.ER PO (08:12)
[2021-10-10] MEDS: MAGNESIUM OXIDE 400 MG TABLET PO (08:12)
[2021-10-10] MEDS: FOLIC ACID 1 MG TABLET PO (08:12)
[2021-10-10] MEDS: PANTOPRAZOLE 40 MG TABLET PO (08:12)
[2021-10-10] MEDS: APIXABAN 5 MG TABLET PO ×2 (08:13→16:56)
[2021-10-10] MEDS: AZELASTINE HCL NASAL 0.1% 137 MCG/SPR 30 ML BTL 1 SPRAY NASAL ×2 (08:13→21:23)
[2021-10-10] MEDS: DICLOFENAC SODIUM 1% 100 GM GEL (*BKC) 1 APPLIC TOPICAL ×3 (08:13→16:56)
[2021-10-10] MEDS: PREGABALIN (*CRX) 75 MG CAPSULE 150 MG PO ×2 (08:15→16:55)
[2021-10-10] MEDS: UMECLIDINIUM BROMIDE 62.5 MCG ELLIPTA 1 PUFF INHALATION (10:09)
[2021-10-10] MEDS: BUDESONIDE RESPULE NEB 0.5 MG/2 ML AMP INHALATION (10:09)
[2021-10-10] MEDS: MAGNESIUM SULFATE 3GM/D5W100ML 3 GM/100 ML BAG IVPB (11:41)
--- NOTE | 2021-10-10 12:59 | PM.IMPN ---
Progress Note: A&P Assessment and Plan (1) Altered mental status: Code(s): R41.82 - Altered mental status, unspecified Status: Acute Assessment and Plan: The patient was brought in for evaluation of altered mental status from her living facility. Patient's POA and granddaughter said the patient was not answering her phone for the last few days so she called the facility to go check on her and when they called her back they said they were sending her to the emergency room. She was recently treated with IM Rocephin for pneumonia 09/28/21-10/04/21 and that was restarted a couple of days ago due to persistent infiltrates on chest x-ray. However the patient gives me no history to suggest underlying pneumonia and a CTA of the chest today shows diffuse chronic interstitial lung disease and most likely atelectasis in the lingula. ABG is consistent with her chronic hypercapnic and hypoxic respiratory failure and she is compensated. Brain CT showed no acute findings. At least at this time I think her waxing and waning confusion is likely related to her dementia. She was most likely more confused earlier today as she was hypoxic and was brought in without her oxygen. Patient's urinalysis shows no acute signs of infection. CT scan of her chest not suggesting pneumonia Patient ABG showed elevated pCO2 65 and could be causing her confusion. Patient's granddaughter states she has never had a sleep study and most likely has sleep apnea given her snoring, fatigue in the morning and other medical history. I consulted pulmonology and talked to Dr. Mckeon over the phone who recommended the patient be placed on BiPAP with AVAPS setting tonight 10/10/21: Tidal volume 450, rate 16, expiratory pressure 5, minimal inspiratory pressure 6, max inspiration 25, FiO2 30%. Get an ABG the morning of 10/11/2020 prior to removing from AVAPS machine. ApneaLink with oxygen only on AVAPS 30% overnight. Will see how the patient does with the BiPAP machine overnight. I talked to the patient's granddaughter who states she just talked to her over the phone and states she still does not seem like her baseline because the patient is sad and confused as to how she got to the hospital. This could be due to CO2 elevation or her not wearing oxygen when she came into the hospital. No antibiotics will be started at this time. Further workup will be completed at this time and I appreciate pulmonology input. Continue monitoring. (2) Chronic respiratory failure with hypoxia and hypercapnia: Code(s): J96.11 - Chronic respiratory failure with hypoxia; J96.12 - Chronic respiratory failure with hypercapnia Status: Acute Assessment and Plan: Breathing is currently at her baseline, 93% on 2 L. hypercapnic on ABG that will be further worked tonight. See above. (3) Dementia: Code(s): F03.90 - Unspecified dementia without behavioral disturbance Status: Chronic Assessment and Plan: CT head shows to old lacunar infarcts and mild chronic small-vessel disease which can in term causes dementia symptoms over time. She will need to be further evaluated by her primary care doctor and/or neurologist (4) Chronic obstructive pulmonary disease: Code(s): J44.9 - Chronic obstructive pulmonary disease, unspecified Status: Acute Assessment and Plan: Currently having mild wheezing. Will schedule her albuterol inhaler to see if this helps with her breathing. Continue her budesonide nebulized treatments. Pulmonology was also consulted so they can make further adjustments if needed. (5) Chronic interstitial lung disease: Code(s): J84.9 - Interstitial pulmonary disease, unspecified Status: Acute Assessment and Plan: Seems to be stable.
[2021-10-10] MEDS: ACETAMINOPHEN 325 MG TABLET 650 MG PO (21:24)
[2021-10-10] MEDS: BENZONATATE 100 MG CAPSULE 200 MG PO (21:26)
[2021-10-10] MEDS: traZODone HCL 50 MG TABLET 150 MG PO (21:26)
[2021-10-11] VITALS (18 sets, daily range): BP systolic 100–137; BP diastolic 57–64; PULSE 60–87; RESP 16–72; TEMP 36.1–36.4; O2SAT 87–100
[2021-10-11] MEDS: ACETAMINOPHEN 325 MG TABLET 650 MG PO ×2 (05:58→17:28)
[2021-10-11 06:03] LABS: Alveolar/Arterial O2 Gradient 68.3 mmHg; Base Excess ABG 7.3 mEq/l (+/-2.0); Carboxyhemoglobin 0.3 % THb (0-2.0); Fractional Inspired Oxygen 30 %; Methemoglobin ABG 0.2 %THb (0-1.5); Oxygen Content ABG 19.5 %vol (16.0-22.0); Oxygen Saturation ABG 96.6 % (95.0-100.0); PCO2 ABG 50.8 mmHg (35.0-45.0); PO2 ABG 85.9 mmHg (80.0-100.0); PO2 FiO2 Ratio Arterial Blood 2.86 %; Reduced Hemoglobin 4.5 %THb (0-5.0); Total Hemoglobin 14.6 g/dL (12.0-18.0); pH ABG 7.431 (7.350-7.450)
[2021-10-11 06:04] LABS: Basophils Absolute Auto 0.1 K/mm3 (0.0-0.1); Basophils Percent Auto 0.6 % (0.2-1.2); Eosinophils Absolute Auto 0.4 K/mm3 (0-0.3); Eosinophils Percent Auto 4.4 % (0-4.4); Hematocrit 31.2 % (37.0-47.0); Hemoglobin 9.9 g/dL (12.0-15.0); Immature Granulocyte Absolute 0.08 K/mm3 (0.00-0.031); Immature Granulocyte Percent A 0.9 % (0-0.5); Lymphocytes Absolute Auto 2.28 K/mm3 (0.9-3.2); Lymphocytes Percent Auto 26.7 % (18.3-44.2); Mean Corpuscular HGB Conc 31.7 g/dl (32-36); Mean Corpuscular Volume 88.4 fl (80-100); Mean Platelet Volume 10.6 fl (7.4-10.4); Monocytes Absolute Auto 0.8 K/mm3 (0.1-0.6); Monocytes Percent Auto 8.9 % (2.6-8.5); Neutrophils Percent Auto 58.5 % (45.5-73.1); Platelet Count Result 303 k/mm3 (150-375); Red Blood Count 3.53 M/mm3 (4.2-5.4); Red Cell Distribution Width 16.4 % (11.5-14.5); White Blood Count 8.6 K/mm3 (4.5-10.0)
[2021-10-11 06:06] LABS: Device OTHER DEVICE; Site Drawn LEFT BRACHIAL
[2021-10-11 07:09] LABS: Anion Gap 5 mmol/L (8-16); Blood Urea Nitrogen 11 mg/dL (7-17); Calcium 9.2 mg/dL (8.4-10.2); Carbon Dioxide 38 mmol/L (22-30); Chloride 91 mmol/L (98-107); Estimated CRCL calculation 54 ml/min; Estimated Glomerular Filt Rate > 60; Glucose 108 mg/dL (65-110); Magnesium 1.9 mg/dL (1.6-2.3); Potassium 3.8 mmol/L (3.4-5.0); Sodium 134 mmol/L (137-145)
--- NOTE | 2021-10-11 07:09 | PCRCNOTE ---
apnea study; mdi administration was omitted
[2021-10-11] MEDS: PREGABALIN (*CRX) 75 MG CAPSULE 150 MG PO ×2 (08:11→16:10)
[2021-10-11] MEDS: SACCHAROMYCES BOULARDII 250 MG CAPSULE PO ×3 (08:11→16:10)
[2021-10-11] MEDS: ATORVASTATIN 40 MG TABLET 80 MG PO (08:11)
[2021-10-11] MEDS: DULoxetine HCL 60 MG CAPSULE.DR PO (08:11)
[2021-10-11] MEDS: AZELASTINE HCL NASAL 0.1% 137 MCG/SPR 30 ML BTL 1 SPRAY NASAL ×2 (08:11→20:07)
[2021-10-11] MEDS: DICLOFENAC SODIUM 1% 100 GM GEL (*BKC) 1 APPLIC TOPICAL ×2 (08:11→12:30)
[2021-10-11] MEDS: LORATADINE 10 MG TABLET PO (08:11)
[2021-10-11] MEDS: LIPASE/AMYLASE/PROTEASE 12,000 UNITS CAP 2 CAP PO ×3 (08:11→16:10)
[2021-10-11] MEDS: APIXABAN 5 MG TABLET PO ×2 (08:12→16:10)
[2021-10-11] MEDS: MAGNESIUM OXIDE 400 MG TABLET PO (08:12)
[2021-10-11] MEDS: FERROUS SULFATE 324 MG TABLET PO (08:12)
[2021-10-11] MEDS: guaiFENesin 12 HR 600 MG TABCR PO ×2 (08:12→20:06)
[2021-10-11] MEDS: POTASSIUM CHLORIDE 20 MEQ TABLET.ER PO (08:12)
[2021-10-11] MEDS: FOLIC ACID 1 MG TABLET PO (08:12)
[2021-10-11] MEDS: carvediloL 3.125 MG TABLET PO ×2 (08:12→20:06)
[2021-10-11] MEDS: PANTOPRAZOLE 40 MG TABLET PO (08:12)
[2021-10-11] MEDS: ONDANSETRON INJ 4 MG/2 ML VIAL IV PUSH (08:28)
[2021-10-11] MEDS: UMECLIDINIUM BROMIDE 62.5 MCG ELLIPTA 1 PUFF INHALATION (08:35)
[2021-10-11] MEDS: ALBUTEROL SULFATE (*SP) AEROSOL 1 PUFF INHALATION ×4 (08:36→19:46)
[2021-10-11] MEDS: BUDESONIDE RESPULE NEB 0.5 MG/2 ML AMP INHALATION ×2 (08:36→19:47)
--- NOTE | 2021-10-11 10:14 | PM.CNPUL ---
Assessment and Plan Assessment and plan (1) Chronic obstructive pulmonary disease: Code(s): J44.9 - Chronic obstructive pulmonary disease, unspecified Status: Acute Assessment and Plan: Patient with 30 pack year history tobacco use, COPD with chronic hypoxemic and hypercarbic respiratory failure on 2 L [facility]ula [facility] and now with altered mental status and a blood gas of 7.39/65/98 on 1 L nasal cannula. The patient has chronic hypercarbic respiratory failure and would benefit from noninvasive ventilation to prevent disease progression and prevent hospitalizations in the future. Patient was tried on BiPAP but these pressures were uncomfortable for her and she was placed on AVAPS mode last night. Her settings were rate of 16, tidal volume 450, EPAP 5, minimal inspiratory pressure 6, maximal inspiratory pressure 30 and 30% FiO2. Patient had an ABG prior to removal of this with a pH of 7.43/51/86. her overnight oximetry on 30% FiO2 demonstrated time with saturation less than or equal to 88% was 0 minutes. Patient resides at [facility] and the plan coordinator will discuss with them whether not she can use noninvasive ventilation with a VATS mode at that facility. If she cannot then we will place her back on BiPAP tonight. I tighter the settings to achieve comfort and a tidal volume of approximately 500 and the settings were rate of 16, expiratory pressure 4, inspiratory pressure 10, inspiratory time 0.9 seconds, rise of 1 which is are machines fastest. We will place her on 20 88% FiO2 and repeat an overnight oximetry an ABG in the morning prior to removal. There is no evidence of pneumonia, COPD exacerbation, fluid overload. her previous small pulmonary emboli on 06/27/2021 have now resolved on her current CT angiogram of the chest. Patient is currently maintained on long-acting muscarinic antagonist and inhaled corticosteroid at the living facility. At this time I will place her on Anoro Ellipta 62.5-25 at 1 puff q.day and discontinue the inhaled corticosteroid. discussed with Opal Morales, will follow with you. History of Present Illness History of Present Illness Consult date: 10/11/21 Requesting physician: Opal Morales PA-C Reason for consult: COPD Chief complaint: Encephalopathy Narrative: 10/11/2021: This is a new pulmonary consult for COPD and hypercarbic respiratory failure 76-year-old woman with a history of CVA, dementia, execute and pancreatic insufficiency, COPD -interstitial lung disease followed in the [facility]monary [facility] and last seen on 10/27/2020 at that time she had quit smoking she was on 3 L nasal cannula 24-7 with high saturations she had memory recall issues and forgetfulness her CAT score was 21, she was on nebulized budesonide and Brovana. She was on ropinirole 2 mg before bedtime for restless legs syndrome. Patient was found to have 2 tiny subsegmental right-sided pulmonary embolism on a CT scan of the chest on 06/27/2021 and has been placed on Eliquis. [facility] the [facility] patient was started on intramuscular Rocephin on 09/28 through 10/04/2020 and antibiotics were continued per report of a chest x-ray on 10/06/2020. Patient presented to the emergency department on 10/09/2021 from [facility] with altered mental status. There is no evidence of infection. There is no evidence of a COPD exacerbation. Patient had a CT angiogram of the chest that demonstrated no PE and unchanged upper lobe honeycombing and minimal patchy infiltrates in the lower lobes. There is no focal consolidations. Patient had a blood gas of with pH of 7.39/65/98 on 1 L nasal cannula. Given her COPD and chronic hypercarbic respiratory failure place and was placed on noninvasive ventilation with an AVAPS mode last night. 10/11/21: Patient states that she slept great with the noninvasive ventilator with the AVAPS mode last night. Her settings were rate of 16, tidal
--- NOTE | 2021-10-11 10:16 | PM.IMPN ---
Progress Note: A&P Assessment and Plan (1) Altered mental status: Code(s): R41.82 - Altered mental status, unspecified Status: Acute Assessment and Plan: The patient was brought in for evaluation of altered mental status from her living facility. Patient's POA and granddaughter said the patient was not answering her phone for the last few days so she called the facility to go check on her and when they called her back they said they were sending her to the emergency room. She was recently treated with IM Rocephin for pneumonia 09/28/21-10/04/21 and that was restarted a couple of days ago due to persistent infiltrates on chest x-ray. However the patient gives me no history to suggest underlying pneumonia and a CTA of the chest today shows diffuse chronic interstitial lung disease and most likely atelectasis in the lingula. ABG is consistent with her chronic hypercapnic and hypoxic respiratory failure and she is compensated. Brain CT showed no acute findings. At least at this time I think her waxing and waning confusion is likely related to her dementia. She was most likely more confused earlier today as she was hypoxic and was brought in without her oxygen. Patient's urinalysis shows no acute signs of infection. CT scan of her chest not suggesting pneumonia Patient ABG showed elevated pCO2 65 and could be causing her confusion. Patient's granddaughter states she has never had a sleep study and most likely has sleep apnea given her snoring, fatigue in the morning and other medical history. I consulted pulmonology and talked to Dr. Mckeon who evaluated her today. The patient tolerated her AVAPS machine well last night and had great results with her settings. The respiratory therapist is going to call the patient's living facility [facility] and see if there are able to use an AVAPS machine. If the patient instead needs a BiPAP then she will have to stay overnight for further evaluation with BiPAP setting, ApneaLink and another ABG in the morning to see how the settings worked. Otherwise the patient is currently stable to be discharged once be have this black top machine operator for discharge. BiPAP with AVAPS setting Tidal volume 450, rate 16, expiratory pressure 5, minimal inspiratory pressure 6, max inspiration 25, FiO2 30%. ABG this morning with AVAPS machine was good, normal pH, pCO2 at 50, HCO3 33. ApneaLink showed the evaluation period was too short. No antibiotics will be started at this time. Further workup will be completed at this time and I appreciate pulmonology input. Continue monitoring. (2) Chronic respiratory failure with hypoxia and hypercapnia: Code(s): J96.11 - Chronic respiratory failure with hypoxia; J96.12 - Chronic respiratory failure with hypercapnia Status: Acute Assessment and Plan: Breathing is currently at her baseline, 93% on 1 L. See above. (3) Dementia: Code(s): F03.90 - Unspecified dementia without behavioral disturbance Status: Chronic Assessment and Plan: CT head shows to old lacunar infarcts and mild chronic small-vessel disease which can in term causes dementia symptoms over time. She will need to be further evaluated by her primary care doctor and/or neurologist. A&Ox3 today, thought president was Manda. (4) Chronic obstructive pulmonary disease: Code(s): J44.9 - Chronic obstructive pulmonary disease, unspecified Status: Acute Assessment and Plan: Currently having mild wheezing. Will schedule her albuterol inhaler to see if this helps with her breathing. Continue her budesonide nebulized treatments. Pulmonology was also consulted so they can make further adjustments if needed. (5) Chronic interstitial lung disease: Code(s): J84.9 - Interstitial
--- NOTE | 2021-10-11 14:37 | PCRCNOTE ---
TRILOGY BEING ARRANGED AT [facility] WITH HEMANTH.
[2021-10-11] MEDS: traZODone HCL 50 MG TABLET 150 MG PO (20:06)
[2021-10-12] VITALS (7 sets, daily range): BP systolic 126; BP diastolic 60; PULSE 60–79; RESP 18–23; TEMP 36.1; O2SAT 80–97
[2021-10-12] MEDS: ACETAMINOPHEN 325 MG TABLET 650 MG PO ×2 (00:23→07:34)
[2021-10-12] MEDS: ALBUTEROL SULFATE (*SP) AEROSOL 1 PUFF INHALATION ×2 (03:08→04:45)
--- NOTE | 2021-10-12 03:09 | PCRCNOTE ---
Window of time for administration has passed. See next scheduled administration.
[2021-10-12 06:04] LABS: Anion Gap 8 mmol/L (8-16); Blood Urea Nitrogen 14 mg/dL (7-17); Calcium 8.8 mg/dL (8.4-10.2); Carbon Dioxide 33 mmol/L (22-30); Chloride 92 mmol/L (98-107); Estimated CRCL calculation 54 ml/min; Estimated Glomerular Filt Rate > 60; Glucose 106 mg/dL (65-110); Potassium 3.9 mmol/L (3.4-5.0); Sodium 133 mmol/L (137-145)
[2021-10-12] MEDS: LIPASE/AMYLASE/PROTEASE 12,000 UNITS CAP 2 CAP PO ×2 (07:34→12:00)
[2021-10-12] MEDS: FERROUS SULFATE 324 MG TABLET PO (07:34)
[2021-10-12] MEDS: POTASSIUM CHLORIDE 20 MEQ TABLET.ER PO (07:34)
--- NOTE | 2021-10-12 08:04 | PM.PNPUL ---
Progress Note: A&P Assessment and Plan (1) Chronic obstructive pulmonary disease: Code(s): J44.9 - Chronic obstructive pulmonary disease, unspecified Status: Acute Assessment and Plan: 10/11 Patient with 30 pack year history tobacco use, COPD with chronic hypoxemic and hypercarbic respiratory failure on 2 L nasal cannula [facility] and now with altered mental status and a blood gas of 7.39/65/98 on 1 L nasal cannula. The patient has chronic hypercarbic respiratory failure and would benefit from noninvasive ventilation to prevent disease progression and prevent hospitalizations in the future. Patient was tried on BiPAP but these pressures were uncomfortable for her and she was placed on AVAPS mode last night. Her settings were rate of 16, tidal volume 450, EPAP 5, minimal inspiratory pressure 6, maximal inspiratory pressure 30 and 30% FiO2. Patient had an ABG prior to removal of this with a pH of 7.43/51/86. her overnight oximetry on 30% FiO2 demonstrated time with saturation less than or equal to 88% was 0 minutes. Patient resides at [facility] and the career based intervention coordinator will discuss with them whether not she can use noninvasive ventilation with a VATS mode at that facility. If she cannot then we will place her back on BiPAP tonight. I tighter the settings to achieve comfort and a tidal volume of approximately 500 and the settings were rate of 16, expiratory pressure 4, inspiratory pressure 10, inspiratory time 0.9 seconds, rise of 1 which is are machines fastest. We will place her on 20 88% FiO2 and repeat an overnight oximetry an ABG in the morning prior to removal. There is no evidence of pneumonia, COPD exacerbation, fluid overload. her previous small pulmonary emboli on 06/27/2021 have now resolved on her current CT angiogram of the chest. Continue Eliquis 5 BID. Patient is currently maintained on long-acting muscarinic antagonist and inhaled corticosteroid at the living facility. At this time I will place her on Anoro Ellipta 62.5-25 at 1 puff q.day and discontinue the inhaled corticosteroid. 10/12 Patient slept last night with a noninvasive ventilator in the AVAPS mode. Patient states the mask was somewhat tight and she has a headache this morning. Patient is breathing well back at her baseline. Patient is stable for return to [facility]. From a pulmonary perspective patient is ready for discharge on these pulmonary medicines: Anoro Ellipta 62.5-25 at 1 puff q.day Rescue albuterol 2 puffs q.4 hours p.r.n. shortness of breath or wheezing Guafenesin ER 600 BID Oxygen at rest and with ambulation per the facilities protocol. Currently patient is receiving 1 L at rest. When sleeps noninvasive ventilation with the AVAPS-AE mode: rate of 16, tidal volume 450, minimum EPAP 5, maximum EPAP 15, minimum pressure support 6, maximum pressure support 30 with 3 L bleed in. I signed these orders and spoke with the DME account service representative for [employer] on 10/11/2021. Follow-up in Pulmonary Clinic in 3-4 weeks. I gave her our business card and informed our space scheduler. Call with questions. Subjective Date/time seen: 10/12/21 08:04 Interval history: 10/11/2021: This is a new pulmonary consult for COPD and hypercarbic respiratory failure 76-year-old woman with a history of CVA, dementia, execute and pancreatic insufficiency, COPD -interstitial lung disease followed in the Pulmonary Clinic and last seen on 10/27/2020 at that time she had quit smoking she was on 3 L nasal cannula 24-7 with high saturations she had memory recall issues and forgetfulness her CAT score was 21, she was on nebulized budesonide and Brovana. She was on ropinirole 2 mg before bedtime for restless legs syndrome. Patient was found to have 2 tiny subsegmental right-sided pulmonary embolism on a CT scan of the chest on 06/27/2021 and has been placed on Eliquis. At the [facility] patient was started on intramuscular Rocephin
[2021-10-12] MEDS: SACCHAROMYCES BOULARDII 250 MG CAPSULE PO ×2 (08:09→12:00)
[2021-10-12] MEDS: ATORVASTATIN 40 MG TABLET 80 MG PO (08:09)
[2021-10-12] MEDS: carvediloL 3.125 MG TABLET PO (08:10)
[2021-10-12] MEDS: DULoxetine HCL 60 MG CAPSULE.DR PO (08:10)
[2021-10-12] MEDS: MAGNESIUM OXIDE 400 MG TABLET PO (08:10)
[2021-10-12] MEDS: guaiFENesin 12 HR 600 MG TABCR PO (08:10)
[2021-10-12] MEDS: PREGABALIN (*CRX) 75 MG CAPSULE 150 MG PO (08:10)
[2021-10-12] MEDS: APIXABAN 5 MG TABLET PO (08:10)
[2021-10-12] MEDS: LORATADINE 10 MG TABLET PO (08:10)
[2021-10-12] MEDS: FOLIC ACID 1 MG TABLET PO (08:10)
[2021-10-12] MEDS: PANTOPRAZOLE 40 MG TABLET PO (08:10)
[2021-10-12] MEDS: AZELASTINE HCL NASAL 0.1% 137 MCG/SPR 30 ML BTL 1 SPRAY NASAL (08:11)
[2021-10-12] MEDS: UMECLIDINIUM/VILANTEROL 62.5-25 MCG ELLIPTA 1 PUFF INHALATION (09:04)
[2021-10-12 11:57] LABS: EDCOVIDSCREEN Negative (Negative)
--- NOTE | 2021-10-12 12:04 | PM.DS ---
DS: Admitting Diagnosis Discharge Date 10/12/21 Admitting Diagnosis AMS DS: Discharge Diagnosis Discharge Diagnosis (1) Altered mental status: Code(s): R41.82 - Altered mental status, unspecified Status: Acute Assessment and Plan: The patient was brought in for evaluation of altered mental status from her living facility. Patient's POA and granddaughter said the patient was not answering her phone for the last few days so she called the facility to go check on her and when they called her back they said they were sending her to the emergency room. She was recently treated with IM Rocephin for pneumonia 09/28/21-10/04/21 and that was restarted a couple of days ago due to persistent infiltrates on chest x-ray. However the patient gives me no history to suggest underlying pneumonia and a CTA of the chest today shows diffuse chronic interstitial lung disease and most likely atelectasis in the lingula. ABG is consistent with her chronic hypercapnic and hypoxic respiratory failure and she is compensated. Brain CT showed no acute findings. At least at this time I think her waxing and waning confusion is to some degree related to her dementia. She was most likely more confused earlier on admission as she was hypoxic and was brought in without her oxygen. Patient's urinalysis shows no acute signs of infection. CT scan of her chest not suggesting pneumonia Patient ABG showed elevated pCO2 65 and could be causing her confusion. Patient's granddaughter states she has never had a sleep study and most likely has sleep apnea given her snoring, fatigue in the morning and other medical history. I consulted pulmonology and talked to Dr. Mckeon who evaluated her. The patient tolerated her AVAPS machine well and had great results with her settings. The patient's living facility has her AVAPS machine and is ready to accept her to the facility. Cleared for discharge per pulmonology. BiPAP with AVAPS setting Tidal volume 450, rate 16, expiratory pressure 5, minimal inspiratory pressure 6, max inspiration 25, FiO2 30%. ABG yesterday with AVAPS machine was good, normal pH, pCO2 at 50, HCO3 33. ApneaLink showed the evaluation period was too short. (2) Chronic respiratory failure with hypoxia and hypercapnia: Code(s): J96.11 - Chronic respiratory failure with hypoxia; J96.12 - Chronic respiratory failure with hypercapnia Status: Acute Assessment and Plan: Breathing is currently at her baseline, 92% on 1 L. See above. (3) Dementia: Code(s): F03.90 - Unspecified dementia without behavioral disturbance Status: Chronic Assessment and Plan: CT head shows two old lacunar infarcts and mild chronic small-vessel disease which can in term causes dementia symptoms over time. She will need to be further evaluated by her primary care doctor and/or neurologist. A&Ox3 today. (4) Chronic obstructive pulmonary disease: Code(s): J44.9 - Chronic obstructive pulmonary disease, unspecified Status: Acute Assessment and Plan: Improvement w/ nebs. Lungs CTA today. Evaluated by pulmonology who has cleared her for discharge back to her facility. (5) Chronic interstitial lung disease: Code(s): J84.9 - Interstitial pulmonary disease, unspecified Status: Acute Assessment and Plan: Seems to be stable. (6) Anemia of chronic disease: Code(s): D63.8 - Anemia in other chronic diseases classified elsewhere Status: Acute Assessment and Plan: Normocytic anemia with hemoglobin of 9.5, hematocrit 30%. Seems to be at her baseline. Continue monitoring. No acute signs of bleeding at this time. Transfuse if less than 7.
== END 2021-10-12 13:55 ==
LOC: ANHED 16:06 → ANH2MED 16:28
PROVIDERS: Physician Assistant; Admitting Provider Family Medicine; Emergency Provider Nurse Practitioner; PCP Internal Medicine; Visit Provider Internal Medicine
DX: R41.82 Altered mental status, unspecified (principal); J96.12 Chronic respiratory failure with hypercapnia; F03.90 Unspecified dementia, unspecified severity, without behavioral disturbance, psychotic disturbance, mood disturbance, and anxiety; J96.11 Chronic respiratory failure with hypoxia; Z99.81 Dependence on supplemental oxygen; E83.42 Hypomagnesemia; J44.9 Chronic obstructive pulmonary disease, unspecified; J84.9 Interstitial pulmonary disease, unspecified; D63.8 Anemia in other chronic diseases classified elsewhere; I11.0 Hypertensive heart disease with heart failure; I50.30 Unspecified diastolic (congestive) heart failure; E78.5 Hyperlipidemia, unspecified; F41.8 Other specified anxiety disorders; K86.81 Exocrine pancreatic insufficiency; K21.9 Gastro-esophageal reflux disease without esophagitis; M81.0 Age-related osteoporosis without current pathological fracture; R73.03 Prediabetes; I73.9 Peripheral vascular disease, unspecified; Z98.1 Arthrodesis status; Z20.822 Contact with and (suspected) exposure to COVID-19; Z87.891 Personal history of nicotine dependence; Z79.891 Long term (current) use of opiate analgesic; Z79.01 Long term (current) use of anticoagulants; Z79.51 Long term (current) use of inhaled steroids; Z86.73 Personal history of transient ischemic attack (TIA), and cerebral infarction without residual deficits; Z86.711 Personal history of pulmonary embolism; Z86.16 Personal history of COVID-19
CPT/HCPCS: 36415; 36600; 51701; 70450; 71045; 71275; 80048; 80053; 81003; 82375; 82805; 83050; 83735; 83880; 84484; 85025; 85610; 85730; 87426; 93005; 94002; 94003; 94640; 94762; 96365; 96366; 96375; 96376; 97161; 97165; 99285; A9270; C9803; G0378; J2405; J3475; Q9967; U0003; U0005

== ENCOUNTER 2022-03-01 08:19 | Outpatient (CLI) | payer MEDICARE, MEDICAID, SELFPAY ==
--- NOTE | ~2022-03-01 | CT_ITS ---
EXAMINATION: CT diagnostic chest wo con DATE: 03/01/2022 09:00 INDICATION: Wheezing and shortness of breath TECHNIQUE: Computed tomography (CT) of the chest was performed without intravenous contrast. The dose -length product (DLP) was 540.15 mGy-cm. Automated exposure control and iterative reconstruction tech [employer] were employed. COMPARISON: 10/09/2021 FINDINGS: There are subpleural reticular and groundglass opacities with areas of honeycombing in the upper lung zones with mild worsening. There are worsening subpleural reticular and groundglass opacit ies of the lower lung zones without evidence of honeycombing. There is enlargement of the main and ce ntral pulmonary arteries, consistent with pulmonary hypertension. No pathologically enlarged thoracic lymph nodes are identified. Cardiomegaly is noted. The gallbladder is surgically absent. There is mi ld enlargement of the common bile duct and central intrahepatic ducts which is likely due to post cho lecystectomy state. Severe spondylosis is noted at the thoracolumbar junction. IMPRESSION: 1. Chronic interstitial lung disease with interval worsening. Reviewed, dictated and finalized at location F.
== END 2022-03-01 08:20 | disposition home or self-care (01) ==
PROVIDERS: PCP Internal Medicine; Visit Provider Internal Medicine
DX: R06.2 Wheezing (principal); J84.9 Interstitial pulmonary disease, unspecified
CPT/HCPCS: 71250

== ENCOUNTER 2022-03-18 07:45 | Outpatient (CLI) | payer MEDICARE, MEDICAID, SELFPAY ==
--- NOTE | ~2022-03-18 | CT_ITS ---
EXAMINATION: CT cervical spine wo con DATE: 03/18/2022 08:27 INDICATION: Bilateral shoulder pain TECHNIQUE: Computed tomography (CT) of the cervical spine was performed without intravenous contrast. Automated exposure control and iterative reconstruction technique were employed. The dose-length pro duct was 420.34 mGy-cm. COMPARISON: 07/27/2021 FINDINGS: Straightening of the normal cervical lordosis. 2 mm anterolisthesis C7 on T1 moderate osteoarthritis at the atlantoaxial articulation. C5-C6 anterior spinal fusion with plate and screw fixation. Unfused vertebral body heights are normal. Severe disc height loss at C6-C7. Moderate disc height loss at C4 -C5 and C7-T1. Mild disc height loss at C2-C3 and C3-C4. Mild central canal stenosis resulting from h ypertrophic change at the level of the fused C5-C6 disc space and degenerative disc bulge at C3-C4. M ultilevel severe cervical facet osteoarthritis on the right at C2-C3 and on the left at C2-C3 through C4-C5 and at C7-T1. There is also multilevel moderate to severe uncovertebral osteoarthritis at C3-C 4, C4-C5 and C6-C7 which contribute to moderate neural from stenosis on the left at C3-C4 and C4-C5. Mild neural from stenosis at several additional levels on both the left and right. Atherosclerotic ca lcific a cyst at the bilateral carotid bulbs, left greater than right. Cervical soft tissues are othe rwise unremarkable. Minimal biapical pleural-parenchymal scarring. IMPRESSION: 1. No interval change in severe cervical spondylosis with internally fixed anterior spinal fusion at C5-C6. Reviewed, dictated and finalized at location A. IMPRESSION: 1. No interval change in severe cervical spondylosis with internally fixed ante rior spinal fusion at C5-C6.
== END 2022-03-18 07:46 | disposition home or self-care (01) ==
PROVIDERS: PCP Internal Medicine
DX: M25.511 Pain in right shoulder (principal); M25.512 Pain in left shoulder
CPT/HCPCS: 72125

== ENCOUNTER 2022-08-30 10:28 | Outpatient (CLI) | payer MEDICARE, MEDICAID, SELFPAY ==
--- NOTE | ~2022-08-30 | CT_ITS ---
EXAMINATION: CT diagnostic chest wo con DATE: 08/30/2022 11:04 INDICATION: Left lower lung infiltrate TECHNIQUE: Computed tomography (CT) of the chest was performed without intravenous contrast. Automate d exposure control and iterative reconstruction technique were employed. Exam dose: 519.55 mGy-cm to tami exam DLP. COMPARISON: 03/01/2022 CT chest FINDINGS: Heart size is within upper normal range. There is thoracic aortic and great vessel calcification. Aortic valve calcification is noted. Ascendi ng aorta measures up to 2.8 cm diameter, the aortic arch and descending thoracic aorta up to approxim ately 2.8 cm diameter. The main pulmonary arteries are enlarged, consistent with pulmonary hypertensi on. No hilar or mediastinal mass lesion or lymphadenopathy is evident. There are scattered areas of predominantly peripheral septal soft tissue thickening and honeycombing, most prominent in the upper lobes, particularly lingula. There is no significant change since 022. Prominent eventration/elevation of the right leaf of the diaphragm. An approximately 11 mm low-attenuation right adrenal mass is noted, likely a small adenoma. Left adre nal gland is normal. Status post cholecystectomy. Status post lower anterior cervical spine surgical fusion. Levoscoliosis and degenerative change of the thoracic spine. Old healed right rib fractures. IMPRESSION: Persistent chronic interstitial fibrotic changes of the lungs, greater in the upper lung zones, particularly lingular, without significant change since 03/01/2022 Pelvis the pulmonary arteries consistent with pulmonary hypertension Aortic ectasia and calcification Eventration of right diaphragm Probable small right adrenal adenoma Status post cholecystectomy Reviewed, dictated and finalized at Location A. Reviewed, dictated and finalized at location B. 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
== END 2022-08-30 10:29 | disposition home or self-care (01) ==
PROVIDERS: PCP Internal Medicine
DX: R91.8 Other nonspecific abnormal finding of lung field (principal); I77.819 Aortic ectasia, unspecified site; Z90.49 Acquired absence of other specified parts of digestive tract
CPT/HCPCS: 71250

== ENCOUNTER 2022-09-08 14:08 | Outpatient (CLI) | payer MEDICARE, MEDICAID, SELFPAY ==
--- NOTE | ~2022-09-08 | MR_ITS ---
EXAMINATION: MR lumbar spine wo con DATE: 09/08/2022 15:24 INDICATION: Low back pain. TECHNIQUE: Magnetic resonance imaging (MRI) of the lumbar spine was performed without intravenous con trast. Sequences included sagittal T2-weighted FSE, sagittal T2-weighted FS FSE, sagittal T1-weighted FSE, and axial T2-weighted FSE. COMPARISON: Lumbar spine MRI 01/11/2015 FINDINGS: There is a least 21 degrees levoscoliosis of thoracolumbar spine. There is 3 mm retrolisthe sis of L2 on L3 and L3 on L4. There is mild chronic anterior wedging of T12 and L1 vertebral bodies. There are changes of anterior fusion procedure at L4-L5 with interbody devices. There is severely dec reased disc height from T12-L1 through L3-L4. The distal spinal cord signal intensity is normal. The conus medullaris is at L1. There is clumping and peripheral displacement of the cauda equina from L4 to S1, consistent with arachnoiditis. The following disc levels are specifically discussed: L1-L2: The disc is bulging and has an annular fissure. There is severe bilateral facet joint osteoart hritis. There is moderate bilateral neural foraminal stenosis. There is mild central canal stenosis. L2-L3: The disc is bulging and has an annular fissure. There is mild bilateral facet joint osteoarthr itis. There is mild right and moderate left neural foraminal stenosis. There is mild central canal st enosis. L3-L4: The disc is bulging and has an annular fissure. There is severe bilateral facet joint osteoart hritis. There is mild right and moderate left neural foraminal stenosis. There is mild central canal stenosis. L4-L5: There is mild bilateral facet joint osteoarthritis. There is mild bilateral neural foraminal s tenosis. There is mild central canal stenosis. L5-S1: There is a right foraminal protrusion. There is severe right and moderate left facet joint ost eoarthritis. There is mild bilateral neural foraminal stenosis. There is no central canal stenosis. IMPRESSION: 1. Severe lumbar spondylosis with interval worsening at T12-L1. 2. Anterior fusion procedure at L4-L5. 3. Thoracolumbar levoscoliosis. 4. 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 Reviewed, dictated and finalized at location E. 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
== END 2022-09-08 14:09 | disposition home or self-care (01) ==
PROVIDERS: PCP Internal Medicine
DX: M47.896 Other spondylosis, lumbar region (principal); Z98.1 Arthrodesis status
CPT/HCPCS: 72148

== ENCOUNTER 2023-02-02 12:28 | Outpatient (CLI) | payer MEDICARE, MEDICAID, SELFPAY ==
--- NOTE | 2023-02-02 16:59 | WPDPFTINT ---
PFT Procedure Performed PFT Procedure Performed Spirometry with Pre/Post Bronchodilator Plethysmography (Lung Vol) Diffusing Cap (DLCO) Flow Vol Loop PFT Interpretation This is a pulmonary function test with pre and post-bronchodilator spirometry, plethysmography and diffusing capacity. The test was performed and results interpreted in accordance with the 2019 and 2005 ATS/ERS Task Force guidelines respectively using the Global Lung Function Initiative-2012 reference equations. Patient demonstrated good effort and cooperation. Reproducibility criteria were met. The quality of the pre bronchodilator spirometry maneuver was Grade A and post bronchodilator spirometry maneuver was Grade A. Findings: Spirometry: There is decreased maximal expiratory airflow at low lung volumes with concave expiratory flow tracing. The contour the inspiratory flow tracing is normal. The pre bronchodilator FVC is 1.76 L, 71% predicted. The pre bronchodilator FEV1 is 0.81 L, 43% predicted. The pre bronchodilator FEV1: FVC ratio is 46%. The post bronchodilator FVC is 1.45 L, representing a 17% decrease. The post bronchodilator FEV1 is 0.94 L, representing 130 mL increase which corresponds to a 17% increase. The post bronchodilator FEV1: FVC ratio 65%. Plethysmography: The total lung capacity is 5.27 L, 107% predicted. The functional residual capacity is 2.81 L, 100% predicted. The residual volume is 2.78 L, 120% predicted. Diffusing capacity: The diffusing capacity unadjusted for hemoglobin and carboxyhemoglobin is 4.7, 25% predicted. The diffusing capacity adjusted for alveolar volume is 3.63, 87% predicted. In comparison to previous pulmonary function testing on 02/28/2019 the post bronchodilator FVC has decreased from 1.76 L to 1.45 L, the post bronchodilator FEV1 has decreased from 1.33 L to 0.94 L. The total lung capacity has increased from 4.59 L to 5.27 L. The functional residual capacity has decreased from 3.35 L to 2.81 L. The residual volume is unchanged from 2.87 L to 2.78 L. The diffusing capacity unadjusted for hemoglobin and carboxyhemoglobin is decreased from 9.3 to 4.7. The diffusing capacity adjusted for alveolar volume is unchanged from 3.89 to 3.63. Impression: There is a severe obstructive abnormality without significant improvement after inhaling a single dose of albuterol as the absolute increase in the post bronchodilator FEV1 is less than 200 mL. The lung volumes are normal. The diffusing capacity unadjusted for hemoglobin and carboxyhemoglobin is severely decreased and normalizes when adjusted for alveolar volume. In comparison to previous pulmonary function testing on 02/28/2019 there has been a greater than anticipated time dependent decrease in the FVC, FEV1, functional residual capacity and DLCO unadjusted for hemoglobin and carboxyhemoglobin with a greater than anticipated time dependent increase in the total lung capacity and no significant change in the residual volume or DLCO adjusted for alveolar volume. clinical correlation is recommended.
== END 2023-02-02 12:29 | disposition home or self-care (01) ==
PROVIDERS: PCP Internal Medicine; Visit Provider Internal Medicine Pulmonary Disease
DX: R06.00 Dyspnea, unspecified (principal); R94.2 Abnormal results of pulmonary function studies
CPT/HCPCS: 94060; 94726; 94729

== ENCOUNTER 2023-06-25 14:41 | Emergency (ER) | payer MEDICARE, MEDICAID, SELFPAY ==
[2023-06-25] VITALS (39 sets, daily range): BP systolic 77–150; BP diastolic 33–94; PULSE 59–84; RESP 9–31; TEMP 36.6; O2SAT 91–100
--- NOTE | ~2023-06-25 | XR_ITS ---
EXAMINATION: XR chest 1V portable Exam Date/Time: 06/25/2023 15:55 CDT HISTORY: hypotension AND DIZZINESS Comparison: 10/09/2021; CT chest 08/30/2022. RESULT: Lines, tubes, and devices: ACDF hardware Rightward rotation. Low volumes with crowding. Mild diffuse reticular opacities. Streaky bibasilar elena bsegmental opacities. Lungs and pleura: Clear. Cardiomediastinal silhouette: Stable. Right hemidiaphragm elevation. Other: No acute osseous or upper abdominal finding. IMPRESSION: Interstitial edema and/or chronic interstitial changes. Bilateral atelectasis/consolidation. Reviewed, dictated and finalized at location K. IMPRESSION: Interstitial edema and/or chronic interstitial changes. Bilateral atelectasis/c onsolidation.
--- NOTE | 2023-06-25 14:46 | ECG_ITS ---
Measurements Intervals Williamson Rate: 61 P: 25 GA: 162 QRS: 12 QRSD: 91 T: 51 QT: 400 QTc: 404 Interpretive Statements SINUS RHYTHM LOW QRS VOLTAGE IN PRECORDIAL LEADS BORDERLINE ECG COMPARED TO ECG 10/09/2021 11:19:35 NO SIGNIFICANT CHANGES Electronically Signed On 06-25-2023 20:34:53 CDT by Kole Carey D.O.
[2023-06-25 14:59] LABS: Basophils Percent Auto 0.3 % (0.2-1.2); Eosinophils Absolute Auto 0.5 K/mm3 (0-0.3); Eosinophils Percent Auto 3.6 % (0-4.4); Hematocrit 32.1 % (37.0-47.0); Hemoglobin 9.7 g/dL (12.0-15.0); Immature Granulocyte Absolute 0.07 K/mm3 (0.00-0.031); Immature Granulocyte Percent A 0.5 % (0-0.5); Lymphocytes Absolute Auto 2.12 K/mm3 (0.9-3.2); Lymphocytes Percent Auto 16.2 % (18.3-44.2); Mean Corpuscular HGB Conc 30.2 g/dl (32-36); Mean Corpuscular Hemoglobin 31.4 pg (26-34); Mean Corpuscular Volume 103.9 fl (80-100); Mean Platelet Volume 11.5 fl (7.4-10.4); Monocytes Absolute Auto 0.9 K/mm3 (0.1-0.6); Neutrophils Absolute Auto 9.4 K/mm3 (1.3-6.7); Neutrophils Percent Auto 72.4 % (45.5-73.1); Platelet Count Result 217 k/mm3 (150-375); Red Blood Count 3.09 M/mm3 (4.2-5.4); Red Cell Distribution Width 12.9 % (11.5-14.5); White Blood Count 13.1 K/mm3 (4.5-10.0)
--- NOTE | 2023-06-25 15:04 | ED.GENADULT ---
HPI - General Adult General Chief complaint: Dizziness Stated complaint: dizzy Time Seen by Provider: 06/25/23 14:43 History of Present Illness HPI narrative: 78-year-old female presented the ED for evaluation of intermittent dizziness and hypotension. Patient reports that she told nursing staff when she was up and ambulating that she had some dizziness. assisted staff checked her blood pressure and found her to be mildly hypotensive. Patient denies any chest pain or any shortness of breath. Patient denies any nausea vomiting but states she has had some diarrhea. Patient denies any associate abdominal pain. Related Data Home Medications Medication Instructions Recorded Confirmed azelastine 137 mcg (0.1 %) nasal 137 mcg intranasal Q12H 04/03/21 05/22/23 spray aerosol acetaminophen 650 mg 650 mg PO Q6H PRN Mild Pain (Scale 10/09/21 05/22/23 tablet,extended release Score 1-4) benzonatate 200 mg capsule 200 mg PO Q8H PRN Cough 10/09/21 05/22/23 carvedilol 3.125 mg tablet (Coreg) 3.125 mg PO BID 10/09/21 05/22/23 magnesium hydroxide 400 mg/5 mL 400 mg PO Q72H PRN Constipation 10/09/21 05/22/23 oral suspension (Milk of Magnesia) magnesium oxide 400 mg (241.3 mg 400 mg PO DAILY 10/09/21 05/22/23 magnesium) tablet ondansetron 4 mg disintegrating 4 mg PO Q6H PRN nausea and 10/09/21 05/22/23 tablet vomitting trazodone 300 mg tablet 150 mg PO HS 10/09/21 05/22/23 apixaban 2.5 mg tablet (Eliquis) 2.5 mg PO BID 01/12/23 05/22/23 bupropion HCl 75 mg tablet 75 mg PO DAILY 01/12/23 05/22/23 cholecalciferol (vitamin D3) 1,250 1,250 mcg PO MONTHLY 01/12/23 05/22/23 mcg (50,000 unit) tablet furosemide 40 mg tablet 40 mg PO QAM 01/12/23 05/22/23 guaifenesin 600 mg tablet, 600 mg PO BID 01/12/23 05/22/23 extended release 12 hr ipratropium 0.5 mg-albuterol 3 mg 3 ml inhalation QID PRN 01/12/23 05/22/23 (2.5 mg base)/3 mL nebulization soln lidocaine 4 % topical cream 1 applic topical QID PRN 01/12/23 05/22/23 [id number] 1 cap PO BID 01/12/23 05/22/23 24,000-76,000-120,000 unit capsule,delayed rel (Creon) melatonin 5 mg/15 mL oral liquid 5 mg PO 01/12/23 05/22/23 pantoprazole 40 mg tablet,delayed 40 mg PO QAM 01/12/23 05/22/23 release (Protonix) sodium phosphates 19 gram-7 118 ml RECTAL ONCE PRN 01/12/23 05/22/23 gram/118 mL enema (Fleet Enema) diclofenac sodium 1 % topical gel 2 g topical QID PRN 05/24/23 05/24/23 hydrocodone 5 mg-acetaminophen 325 1 tablet PO BID PRN 05/24/23 05/24/23 mg tablet meloxicam submicronized 10 mg 10 mg PO DAILY 05/24/23 05/24/23 capsule Allergies Allergy/AdvReac Type Severity Reaction Status Date / Time No Known Allergies Allergy Unknown Verified 01/12/23 14:14 Review of Systems Review of Systems: All systems reviewed & are unremarkable except as noted in HPI and below PMFSH Past Medical History Medical History Anemia of chronic disease Anxiety Arthritis Cerebrovascular accident Chronic interstitial lung disease Chronic obstructive pulmonary disease Chronic respiratory failure with hypoxia and hypercapnia On 2 to 3 L nasal cannula. Clostridium difficile diarrhea Dementia Depression Diastolic congestive heart failure Emphysema of lung Exocrine pancreatic insufficiency Gastroesophageal reflux disease GI bleed Herniated disc History of peptic ulcer Hyperlipidemia Hypertension Migraine Osteoporosis Overactive bladder Pancreatitis Peripheral vascular disease Pneumonia due to 2019-nCoV (06/11/21) Prediabetes Pulmonary arterial hypertension Pulmonary embolism (06/2021) Surgical History Surgical History History of bladder suspension procedure History of cardiac cath History of cholecystectomy History of hysterectomy History of lumbar fusion x2 History of neck surgery (2001) History of tonsillectomy History of tubal ligation History
[2023-06-25 15:11] LABS: Alanine Aminotransferase 27 U/L (6-35); Albumin Level 3.7 g/dL (3.5-5.1); Alkaline Phosphatase 49 U/L (38-126); Anion Gap 0 mmol/L (8-16); Aspartate Amino Transferase 35 U/L (14-36); Bilirubin,Total 0.6 mg/dL (0.2-1.3); Blood Urea Nitrogen 24 mg/dL (7-17); Calcium 7.7 mg/dL (8.4-10.2); Carbon Dioxide 37 mmol/L (22-30); Chloride 100 mmol/L (98-107); Estimated CRCL calculation 36 ml/min; Estimated Glomerular Filt Rate 43; Glucose 107 mg/dL (65-110); Potassium 4.8 mmol/L (3.4-5.0); Sodium 137 mmol/L (137-145)
[2023-06-25] MEDS: SODIUM CHLORIDE 0.9% IV 500 ML 999 ML IV CONT ×2 (15:15→15:57)
== END 2023-06-25 19:12 ==
PROVIDERS: Emergency Provider Emergency Medicine; PCP Internal Medicine
DX: R42 Dizziness and giddiness (principal); N17.9 Acute kidney failure, unspecified; M19.90 Unspecified osteoarthritis, unspecified site; I11.0 Hypertensive heart disease with heart failure; I50.9 Heart failure, unspecified; J44.9 Chronic obstructive pulmonary disease, unspecified; F03.90 Unspecified dementia, unspecified severity, without behavioral disturbance, psychotic disturbance, mood disturbance, and anxiety; F32.A Depression, unspecified
CPT/HCPCS: 36415; 71045; 80053; 85025; 93005; 96360; 99284; J7040

== ENCOUNTER 2023-08-16 14:37 | Observation (INO) | payer MEDICARE, MEDICAID, SELFPAY ==
--- NOTE | ~2023-08-16 | CT_ITS ---
EXAMINATION: CT lumbar spine wo con DATE: 08/16/2023 15:29 INDICATION: Low back injury. Fall. TECHNIQUE: Computed tomography (CT) of the lumbar spine was performed without intravenous contrast. A utomated exposure control and iterative reconstruction technique were employed. The dose-length produ ct was 1334.46 mGy-cm. COMPARISON: CT abdomen and pelvis 09/30/2021 FINDINGS: There are changes of cholecystectomy. There is a 13 mm mass in right adrenal gland with att enuation of 21 HU, stable from 09/30/2021, likely an adenoma. Aortic atherosclerosis is noted. There is 19 degrees dextroscoliosis of lumbar spine. There is 17 degrees levoscoliosis of thoracolumbar spi ne. There is mild chronic anterior wedging of T12 and L1 vertebral bodies. There is severely decrease d disc height from T12-L1 through L3-L4 and mildly decreased disc height at L5-S1. There are changes of anterior fusion procedure at L4-L5 with interbody devices. The following disc levels are specifica lly discussed: L1-L2: The disc is bulging. There is severe bilateral facet joint osteoarthritis. There is mild right and moderate left neural foraminal stenosis. There is mild central canal stenosis. L2-L3: The disc is bulging. There is moderate right and severe left facet joint osteoarthritis. There is mild right and moderate left neural foraminal stenosis. There is mild central canal stenosis. L3-L4: The disc is bulging. There is severe bilateral facet joint osteoarthritis. There is mild right and moderate left neural foraminal stenosis. There is mild central canal stenosis. L4-L5: There is mild bilateral facet joint osteoarthritis. There is mild bilateral neural foraminal s tenosis. There is no central canal stenosis. L5-S1: The disc is bulging. There is mild bilateral facet joint osteoarthritis. There is mild right n eural foraminal stenosis. There is no central canal stenosis. IMPRESSION: 1. No fracture. 2. Severe lumbar spondylosis. 3. Anterior fusion procedure at L4-L5. 4. Scoliosis. Reviewed, dictated and finalized at location A. KER OUT
--- NOTE | ~2023-08-16 | CT_ITS ---
EXAMINATION: CT cervical spine wo con DATE: 08/16/2023 15:29 INDICATION: Neck injury. Fall. TECHNIQUE: Computed tomography (CT) of the cervical spine was performed without intravenous contrast. Automated exposure control and iterative reconstruction technique were employed. The dose-length pro duct was 640.43 mGy-cm. COMPARISON: CT cervical spine 03/18/2022 FINDINGS: There is 11 degrees dextroscoliosis of cervicothoracic spine. There is 2 mm anterolisthesis of C7 on T1. There are changes of anterior fusion procedure at C5-C6 with healed interbody bone bishnu t and anterior plate and screws. Vertebral body heights are normal. There is mildly decreased disc he ight at C3-C4, severely decreased disc height at C4-C5 and C6-C7, and moderately decreased disc heigh t at C7-T1. The following disc levels are specifically discussed: C2-C3: There is mild bilateral uncovertebral joint osteoarthritis. There is severe bilateral facet nitin int osteoarthritis. There is mild bilateral neural foraminal stenosis. There is no central canal sten osis. C3-C4: There is moderate right and severe left uncovertebral joint osteoarthritis. There is mild righ t and severe left facet joint osteoarthritis. There is mild right and moderate left neural foraminal stenosis. There is mild central canal stenosis. C4-C5: There is severe bilateral uncovertebral joint osteoarthritis. There is moderate right and edith re left facet joint osteoarthritis. There is mild bilateral neural foraminal stenosis. There is mild central canal stenosis. C5-C6: There is moderate right and mild left uncovertebral joint hypertrophy. There is mild bilateral facet joint osteoarthritis. There is mild right neural foraminal stenosis. There is no central canal stenosis. C6-C7: There is severe bilateral uncovertebral joint osteoarthritis. There is mild bilateral facet nitin int osteoarthritis. There is mild bilateral neural foraminal stenosis. There is mild central canal st enosis. C7-T1: There is no uncovertebral joint osteoarthritis. There is severe bilateral facet joint osteoart hritis. There is mild left neural foraminal stenosis. There is no central canal stenosis. IMPRESSION: 1. No fracture. 2. Severe cervical spondylosis. 3. Anterior fusion procedure at C5-C6. 4. Cervicothoracic dextroscoliosis. Reviewed, dictated and finalized at location A. OBIOLOGY TEACHER
--- NOTE | ~2023-08-16 | XR_ITS ---
XR shoulder RT min 2V DATE: 08/16/2023 15:49 INDICATION: Fall. Right shoulder injury, pain TECHNIQUE: 3 views COMPARISON: None FINDINGS: Diffuse osteopenia. There is severe joint space narrowing and very prominent humeral head spurring consistent with severe right glenohumeral osteoarthritic arthritis. No fracture or dislocation, periosteal reaction or bone destruction or abnormal right shoulder soft tissue calcification is detected. Status post anterior cervical spine surgical fusion at C6-7. Cervical spondylosis. IMPRESSION: Severe right glenohumeral osteoarthritis Osteopenia Status post anterior cervical spine surgical fusion at C6-7 No fracture or dislocation of right shoulder is detected. Reviewed, dictated and finalized at location B. CE ASSISTANT RECEPTIONIST
--- NOTE | ~2023-08-16 | XR_ITS ---
XR shoulder LT min 2V DATE: 08/16/2023 15:49 INDICATION: Fall. Left shoulder injury, pain TECHNIQUE: 3 views COMPARISON: None FINDINGS: There is glenohumeral joint space narrowing and severe humeral head spurring consistent wit h severe glenohumeral osteoarthritis. There is normal alignment at the acromioclavicular and glenohum eral joints. There is osteopenia. No fracture, dislocation, periosteal reaction or bone destruction or abnormal so ft tissue calcification is detected at the left shoulder. IMPRESSION: Osteopenia Severe left glenohumeral osteophyte is New fracture or dislocation is detected Reviewed, dictated and finalized at location B. T CLEANER
--- NOTE | ~2023-08-16 | CT_ITS ---
EXAMINATION: CT pelvis wo con DATE: 08/16/2023 15:30 INDICATION: Fall TECHNIQUE: Computed tomography (CT) of the pelvis was performed without intravenous contrast. Automat ed exposure control and iterative reconstruction technique were employed. The dose-length product was 483.34 mGy-cm. COMPARISON: None FINDINGS: Atherosclerotic aortic and arterial calcifications. Diverticulosis without diverticulitis. Degenerative changes in the lumbar spine. Moderate right and mild left hip osteoarthritis. Interbody fusion devices at L4-5. No fracture or dislocation IMPRESSION: No acute osseous finding in the pelvis Reviewed, dictated and finalized at location K. AND FAMILY LIVING PROFESSOR
--- NOTE | ~2023-08-16 | XR_ITS ---
EXAMINATION: XR hip BI wo pelvis DATE: 08/16/2023 15:49 INDICATION: Fall. TECHNIQUE: 2 views of right hip and 2 views of left hip were obtained. COMPARISON: Pelvis and right hip radiographs 04/06/2021 FINDINGS: Bone alignment is normal. No fracture. There is severe right hip osteoarthritis and mild le ft hip osteoarthritis. IMPRESSION: 1. Severe right hip osteoarthritis and mild left hip osteoarthritis. Reviewed, dictated and finalized at location A. ERSMITH
--- NOTE | ~2023-08-16 | CT_ITS ---
EXAMINATION: CT brain wo con DATE: 08/16/2023 15:23 INDICATION: fall . TECHNIQUE: Computed tomography (CT) of the head was performed without intravenous contrast. The mA wa s adjusted according to patient size. Iterative reconstruction technique was employed. The dose-lengt h product was 681.00 mGy-cm. COMPARISON: 10/09/2021. FINDINGS: No acute intracranial hemorrhage or extra-axial fluid collection. No hydrocephalus, mass, or herniation. No acute ischemic infarct. Unremarkable dural venous sinus attenuation. No acute osseous abnormality. The aerated spaces are clear. Moderate atrophy and chronic white matter change. Atherosclerotic intracranial calcification. Bilater al lens replacements. Bilateral basal ganglia lacunar infarcts. IMPRESSION: No acute intracranial process. Reviewed, dictated and finalized at location K. E LINING CURER
[2023-08-16 14:44] VITALS: BP 122/71; PULSE 70; RESP 16; TEMP 36.6; O2SAT 96
--- NOTE | 2023-08-16 15:17 | ED.GENADULT ---
HPI - General Adult General Chief complaint: Fall Stated complaint: fall Time Seen by Provider: 08/16/23 14:48 History of Present Illness HPI narrative: Gabbi Champagne is a 78 y/o female who presents via EMS form [place]. She states that she had a ground level fall today. She states that she was at the dinner table and bent forward and then stood back up her legs got wobbly and she fell on to her bottom and then hit her head on the floor. She denies LOC but states she needed help getting up. SHe states that she has sever joint pain that she gets steroid injections for but she isn't due for the injections yet. She also adds that she is on a blood thinner and they sent her here because she hit her head. She complains of pain to her hips/ lower back and her shoulders - she states that her shoulder pain was there before the fall. Denies any recent illness/ chest pain/ Wears 2L nasal canula at baseline/ breathing feels at baseline. Related Data Home Medications Medication Instructions Recorded Confirmed azelastine 137 mcg (0.1 %) nasal 137 mcg intranasal Q12H 04/03/21 05/22/23 spray aerosol acetaminophen 650 mg 650 mg PO Q6H PRN Mild Pain (Scale 10/09/21 05/22/23 tablet,extended release Score 1-4) benzonatate 200 mg capsule 200 mg PO Q8H PRN Cough 10/09/21 05/22/23 carvedilol 3.125 mg tablet (Coreg) 3.125 mg PO BID 10/09/21 05/22/23 magnesium hydroxide 400 mg/5 mL 400 mg PO Q72H PRN Constipation 10/09/21 05/22/23 oral suspension (Milk of Magnesia) magnesium oxide 400 mg (241.3 mg 400 mg PO DAILY 10/09/21 05/22/23 magnesium) tablet ondansetron 4 mg disintegrating 4 mg PO Q6H PRN nausea and 10/09/21 05/22/23 tablet vomitting trazodone 300 mg tablet 150 mg PO HS 10/09/21 05/22/23 apixaban 2.5 mg tablet (Eliquis) 2.5 mg PO BID 01/12/23 05/22/23 bupropion HCl 75 mg tablet 75 mg PO DAILY 01/12/23 05/22/23 cholecalciferol (vitamin D3) 1,250 1,250 mcg PO MONTHLY 01/12/23 05/22/23 mcg (50,000 unit) tablet furosemide 40 mg tablet 40 mg PO QAM 01/12/23 05/22/23 guaifenesin 600 mg tablet, 600 mg PO BID 01/12/23 05/22/23 extended release 12 hr ipratropium 0.5 mg-albuterol 3 mg 3 ml inhalation QID PRN 01/12/23 05/22/23 (2.5 mg base)/3 mL nebulization soln lidocaine 4 % topical cream 1 applic topical QID PRN 01/12/23 05/22/23 [id number] 1 cap PO BID 01/12/23 05/22/23 24,000-76,000-120,000 unit capsule,delayed rel (Creon) melatonin 5 mg/15 mL oral liquid 5 mg PO 01/12/23 05/22/23 pantoprazole 40 mg tablet,delayed 40 mg PO QAM 01/12/23 05/22/23 release (Protonix) sodium phosphates 19 gram-7 118 ml RECTAL ONCE PRN 01/12/23 05/22/23 gram/118 mL enema (Fleet Enema) diclofenac sodium 1 % topical gel 2 g topical QID PRN 05/24/23 05/24/23 hydrocodone 5 mg-acetaminophen 325 1 tablet PO BID PRN 05/24/23 05/24/23 mg tablet meloxicam submicronized 10 mg 10 mg PO DAILY 05/24/23 05/24/23 capsule Allergies Allergy/AdvReac Type Severity Reaction Status Date / Time No Known Allergies Allergy Unknown Verified 08/16/23 14:48 Review of Systems Review of Systems: Constitution: Denies fever, chills, or sweats. EYES: Denies visual changes, redness, or discharge. ENT: Denies rhinorrhea, congestion, sore throat, or otalgia. CARDIOVASCULAR: Denies chest pain, palpitations, or edema. RESPIRATORY: Denies cough or dyspnea. GASTROINTESTINAL: Denies abdominal pain, nausea, vomiting, or diarrhea. GENITOURINARY: Denies dysuria or hematuria. SKIN: Denies rash or itching. MUSCULOSKELETAL: Complains of all over joint pain/ specifically shoulders that was there before the fall and to her hips. NEUROLOGIC: Denies headache, numbness, dizziness, or weakness. PSYCHIATRIC: Denies anxiety or depression. [facility] Past Medical History Medical History Anemia of chronic disease Anxiety Arthritis Cerebrovascular accident Chronic interstitial lung disease Chronic obstructive pulmonary dise
[2023-08-16] MEDS: fentaNYL CITRATE INJ (*CRX) 100 MCG/2 ML VIAL 50 MCG IV PUSH ×2 (16:13→19:38)
[2023-08-16 16:19] VITALS: BP 130/69; PULSE 71; RESP 16; O2SAT 97
[2023-08-16 16:23] LABS: Basophils Absolute Auto 0.1 K/mm3 (0.0-0.1); Basophils Percent Auto 0.4 % (0.2-1.2); Eosinophils Absolute Auto 0.4 K/mm3 (0-0.3); Eosinophils Percent Auto 3.3 % (0-4.4); Hematocrit 33.3 % (37.0-47.0); Immature Granulocyte Absolute 0.04 K/mm3 (0.00-0.031); Immature Granulocyte Percent A 0.4 % (0-0.5); Lymphocytes Absolute Auto 2.26 K/mm3 (0.9-3.2); Lymphocytes Percent Auto 20.3 % (18.3-44.2); Mean Corpuscular Hemoglobin 30.5 pg (26-34); Mean Corpuscular Volume 101.5 fl (80-100); Mean Platelet Volume 11.6 fl (7.4-10.4); Monocytes Absolute Auto 0.7 K/mm3 (0.1-0.6); Monocytes Percent Auto 5.9 % (2.6-8.5); Neutrophils Absolute Auto 7.8 K/mm3 (1.3-6.7); Neutrophils Percent Auto 69.7 % (45.5-73.1); Platelet Count Result 208 k/mm3 (150-375); Red Blood Count 3.28 M/mm3 (4.2-5.4); Red Cell Distribution Width 13.1 % (11.5-14.5); White Blood Count 11.2 K/mm3 (4.5-10.0)
[2023-08-16 16:33] LABS: Appearance Urine Cloudy (Clear); Bacteria Urine 4+ /hpf; Bilirubin Urine Negative (Negative); Color Urine Yellow (Yellow); Glucose Urine UA Negative (Negative); Hyaline Casts Urine Present /lpf; Ketones Urine Negative (Negative); Leukocyte Esterase Ur 3+ LEU/UL (Negative); Nitrate Urine Negative (Negative); Protein Urine Negative (Negative); RBC Urine 0-2 /hpf (0-2); Specific Grav Ur 1.012 (1.001-1.035); Squamous Epithelial Cell Urine Occasional /hpf (Few); Urobilinogen Urine 0.2 mg/dL (<2.0); WBC Urine >100 /hpf; pH Urine 5.5 (5.0-9.0)
[2023-08-16 16:34] LABS: Add Urine Microscopic? YES
[2023-08-16 16:37] LABS: Blood Urea Nitrogen 23 mg/dL (7-17); Calcium 8.3 mg/dL (8.4-10.2); Carbon Dioxide > 40 mmol/L (22-30); Chloride 95 mmol/L (98-107); Estimated CRCL calculation 29 ml/min; Estimated Glomerular Filt Rate 33; Glucose 116 mg/dL (65-110); Potassium 4.4 mmol/L (3.4-5.0); Sodium 141 mmol/L (137-145)
[2023-08-16 18:30] VITALS: BP 132/60; PULSE 65; RESP 20; O2SAT 100
[2023-08-16] MEDS: PANTOPRAZOLE SODIUM IV 40 MG VIAL IV PUSH (19:08)
[2023-08-16 21:18] VITALS: BP 118/60; PULSE 66; RESP 15; O2SAT 98
--- NOTE | 2023-08-16 22:18 | PC.NURSE ---
This patient, Gabbi Champagne, was admitted to [facility] Surg Room 314-02. Patient/family oriented to hospital policies and general routines including ID bracelet, bed and alarms, visiting hours, pain management, procedures, bathroom and other care routines, personal items, smoking policy, room service/diet, and visiting hours. Information on how to activate the Rapid Response Team has been discussed. Patient/Family are encouraged to report perceived risks to care and to ask questions if they do not understand what they are told or what they should do.
[2023-08-16 22:24] VITALS: O2SAT 92
[2023-08-16 22:36] VITALS: BP 152/80; PULSE 70; RESP 18; TEMP 36.6; O2SAT 97
--- NOTE | 2023-08-16 23:22 | PC.NURSE ---
informed MD Zheng patient home medication are ready for verifying.
[2023-08-16 23:25] VITALS: BMI 33.1
[2023-08-16 23:29] VITALS: BMI 33.1
--- NOTE | 2023-08-17 | ECHO_ITS ---
Patient Info Name: Gabbi Champagne Age: 78 years : 1945 Gender: Female Ht: 64 in Wt: 193 lbs BSA: 2.02 m2 HR: 82 bpm BP: 154 / 69 mmHg Heart Rhythm: Sinus Rhythm Technical Quality: Fair Exam Date: 08/17/2023 3:35 PM Exam Location: Echo Lab Exam Room: [facility] Patient Status: Outpatient Admit Date: 08/16/2023 Staff Ordering Physician: Naa Keys DO Cytogenetic Technologist: Marta Aguilar RDCS Attending Provider: Natacha Zheng MD Referring Physician: Ludmila WILLETT; Exam Type: CA echo dop color flow w con Study Info Indications - SOB Complete two-dimensional, color flow and Doppler transthoracic echocardiogram is performed with contrast to opacify the left ventricle and to improve the deliniation of the left ventricle endocardial borders. Contrast/Agitated Saline Contrast/Ag. Saline: Definity Amount: 2.00 ml Administered By: Marta Aguilar [facility] Existing IV Access: Yes Summary 1. Normal left ventricular size with mild concentric hypertrophy. Good systolic function of all segments with ejection fraction of 60-65%. Grade 1 diastolic dysfunction is present. 2. Mild right ventricular enlargement and hypokinesis. 3. Mild left atrial enlargement. 4. Moderate enlargement of the pulmonary artery. 5. Mild tricuspid regurgitation. 6. Mild mitral regurgitation. 7. Mild pulmonary hypertension, estimated pulmonary arterial systolic pressure is 46 mmHg. 8. Normal sinus rhythm. Left Ventricle Left ventricular chamber dimension is normal. Left ventricular systolic function is normal, estimated at 60-65%. There is mildly increased left ventricular wall thickness. Left ventricular septal wall motion is normal. The left ventricular diastolic function is grade I diastolic dysfunction. Right Ventricle Right ventricular chamber dimension is mildly enlarged. Right ventricular systolic function is reduced. Left Atria Left atrial chamber dimension is mildly enlarged. Right Atria Right atrial chamber dimension is normal. Aortic Valve The aortic valve is trileaflet. There is no aortic valve sclerosis. There is no aortic valve stenosis. There is no aortic valve regurgitation. Pulmonic Valve The pulmonic valve is normal. There is no pulmonic valve stenosis. There is no pulmonic regurgitation. Mitral Valve The mitral valve has normal leaflets. There is no mitral valve stenosis. There is mild mitral valve regurgitation. Tricuspid Valve The tricuspid valve leaflets are normal. There is no significant tricuspid valve stenosis. There is mild tricuspid valve regurgitation. Mild pulmonary hypertension, estimated pulmonary arterial systolic pressure is 46 mmHg. Pericardium/Pleural The pericardium appears normal. There is no pericardial effusion. Inferior Vena Cava Normal inferior vena cava with >50% collapse upon inspiration consistent with Empty right atrial pressure, 10 mmHg. Aorta The aortic root size at the sinus of Valsalva is normal. The prox ascending aorta size is normal. Left Ventricular Outflow Tract Name Value Normal LVOT 2D LVOT Diameter 1.98 cm LVOT Doppler LVOT Peak Gradient 5 mmHg LVOT
--- NOTE | 2023-08-17 00:51 | PC.NURSE ---
Addendum entered by Veronika Short RN 08/17/23 00:52: wrong pt Original Note: pt has not voided yet since naqvi removed 136 ml in bladder per bladder scanner.
--- NOTE | 2023-08-17 04:22 | PC.NURSE ---
hydromorphone 1 mg prn q3h ordered for pain per MD khan
--- NOTE | 2023-08-17 04:27 | PC.NURSE ---
stool sample sent to lab for analysis
[2023-08-17] MEDS: HYDROmorphone HCL INJ (*CRX) 1 MG/ML SYR IV PUSH ×2 (04:35→08:10)
[2023-08-17 05:07] LABS: Immunochemical Fecal Occult Bl Positive (N)
[2023-08-17 05:08] LABS: IFOB Positive Control Positive
[2023-08-17 05:14] VITALS: BP 154/69; PULSE 82; RESP 18; TEMP 36.5; O2SAT 96
[2023-08-17 08:00] VITALS: O2SAT 95
[2023-08-17 08:48] VITALS: O2SAT 96
--- NOTE | 2023-08-17 10:27 | PM.IMHP ---
H&P: HPI History of Present Illness Date/Time: 08/17/23 10:27 Chief Complaint: fall Narrative: 78-year-old female from nursing facility with history of COPD, heart failure, GERD, dementia among other comorbidities is presenting after a ground level fall with head trauma but no loss of consciousness. Patient states she feels weak all over, and has been getting progressively worse over the last year. She states she often falls and just seems to lose her balance and tripped. She denies any chest pain or shortness of breath. No nausea, vomiting or diarrhea. No fevers or chills. No recent travel or sick contacts. She did not have headaches or vision changes. She states she has a poor appetite, but this is also been consistent over the last few years. Review of Systems Review of Systems: 12 point review of systems was assessed and was negative except as noted in the HPI [facility] Past Medical History Medical History Anemia of chronic disease Anxiety Arthritis Cerebrovascular accident Chronic interstitial lung disease Chronic obstructive pulmonary disease Chronic respiratory failure with hypoxia and hypercapnia On 2 to 3 L nasal cannula. Clostridium difficile diarrhea Dementia Depression Diastolic congestive heart failure Emphysema of lung Exocrine pancreatic insufficiency Gastroesophageal reflux disease GI bleed Herniated disc History of peptic ulcer Hyperlipidemia Hypertension Migraine Osteoporosis Overactive bladder Pancreatitis Peripheral vascular disease Pneumonia due to 2019-nCoV (06/11/21) Prediabetes Pulmonary arterial hypertension Pulmonary embolism (06/2021) Surgical History Surgical History History of bladder suspension procedure History of cardiac cath History of cholecystectomy History of hysterectomy History of lumbar fusion x2 History of neck surgery (2001) History of tonsillectomy History of tubal ligation History of vascular surgery Left lower extremity. Family History Family History Father Family history of Parkinson's disease Sibling Patient's brother is in good health Mother Family history of chronic obstructive pulmonary disease Family history of pancreatic cancer Social History Social History Social History: Surrogate decision maker: Stefanie Finney, granddaughter. Code status: Full code. Smoking packs per day: 1 Smoking cigarettes per day: 20.0 Years smoked: 30 Smoking pack-years: 30.00 Smoking status: Former smoker Second hand tobacco smoke exposure: Yes Smoking end date: 07/02/21 Alcohol intake: never Substance use: never Lack of Transportation: No Lack of Food: Never True Current Housing: I Have Housing Concerned About Future Housing: No Difficulty Paying Gas/Electric Bills: No Difficulty Paying for Meds: No Currently Unemployed: No Education: Grade School Difficulty w/ Childcare or Family Care: No Living arrangements: penitentiary Additional living arrangements comments: Resident of [facility]. Additional occupation/education comments: Retired. Spiritual care concerns: No Meds Home Medications and Allergies Home Medications Medication Instructions Recorded Confirmed Type cetirizine 10 mg tablet (Zyrtec) 10 mg PO DAILY #90 tabs 12/23/20 08/16/23 Rx pregabalin 150 mg capsule (Lyrica) 150 mg PO BID #60 caps 02/03/21 08/16/23 Rx albuterol sulfate 90 mcg/actuation 1 inh inhalation Q4H PRN shortness 03/09/21 08/16/23 Rx aerosol inhaler of breath or wheezing #8.5 grams ferrous sulfate 325 mg (65 mg 325 mg PO DAILY #90 tabs 03/30/21 08/16/23 Rx iron) tablet folic acid 1 mg tablet 1 mg PO DAILY #90 tabs 03/30/21 08/16/23 Rx atorvastatin 80 mg tablet 80
[2023-08-17] MEDS: LIPASE/AMYLASE/PROTEASE 12,000 UNITS CAP 4 CAP PO ×2 (12:11→16:29)
[2023-08-17] MEDS: PANTOPRAZOLE 40 MG TABLET PO (12:11)
[2023-08-17] MEDS: FERROUS SULFATE 325 MG TABLET DR PO (12:11)
[2023-08-17] MEDS: POTASSIUM CHLORIDE 20 MEQ ER TABLET PO (12:11)
[2023-08-17] MEDS: MAGNESIUM OXIDE 400 MG TABLET PO (12:12)
[2023-08-17] MEDS: FLUTICASONE PROPIONATE 0.05% NA SPR 16 GM BTL (*BKC) 2 SPRAY NASAL (12:41)
--- NOTE | 2023-08-17 14:40 | WPDGICN ---
Assessment and Plan Assessment and plan (1) Anemia: Code(s): D64.9 - Anemia, unspecified Status: Acute Assessment and Plan: with Hemoccult-positive stool and chronic NSAID use, we will schedule her for an EGD to be done tomorrow. she had that she would rather not have a colonoscopy. She has had colonoscopies by in the past. (2) Fall: Qualifiers: Encounter type: initial encounter Qualified Code(s): W19.XXXA - Unspecified fall, initial encounter Code(s): W19.XXXA - Unspecified fall, initial encounter Status: Acute Assessment and Plan: She fell at her nursing facility but denies any pain at this time (3) Guaiac positive stools: Code(s): R19.5 - Other fecal abnormalities Status: Acute Assessment and Plan: She was tested and found to be Hemoccult positive. (4) Chronic anticoagulation: Code(s): Z79.01 - detention (current) use of anticoagulants Status: Acute Assessment and Plan: She has been maintained on Eliquis. She apparently had a pulmonary embolism about 2 years ago. (5) Chronic interstitial lung disease: Code(s): J84.9 - Interstitial pulmonary disease, unspecified Status: Acute (6) Pancreatitis: Code(s): K85.90 - Acute pancreatitis without necrosis or infection, unspecified Status: Acute Assessment and Plan: she is chronically on pancreatic enzyme supplements. It seems that she had pancreatitis at 1 point. She is not sure how long she has been on the supplements. I question whether she truly needs them at this point. Plan EGD tomorrow GI Consult Note Consult date/time: 08/17/23 14:40 HPI: Gabbi Champagne is a 78 year old female Who was transferred here yesterday from a nursing facility because she had fallen. There was concern because she is chronically anticoagulated due to atrial fibrillation. She also suffers from COPD. She states that she has been weak lately. He was found to be anemic but it appears that she is chronically anemic with her hemoglobin the past 2 years running between 9.6 and 10 with 10 being the latest. She was found have occult blood positive stool. She states that occasionally she will see a scant bit of red blood with a bowel movement particularly if she needs to strain. She is on Meloxicam because she has severe arthritis. she also takes diclofenac gel. She believes that she had an ulcer years ago. She denies nausea or vomiting. Denies any abdominal pain except an occasional cramp before a bowel movement. She has not had weight loss. She denies heartburn or dysphagia. Review of Systems Review of Systems: All systems reviewed & are unremarkable except as noted in HPI and below PMFSH Past Medical History Medical History (Updated 08/17/23 @ 14:50 by Mike Lizarraga MD) Anemia of chronic disease Anxiety Arthritis Cerebrovascular accident Chronic interstitial lung disease Chronic obstructive pulmonary disease Chronic respiratory failure with hypoxia and hypercapnia On 2 to 3 L nasal cannula. Clostridium difficile diarrhea Dementia Depression Diastolic congestive heart failure Emphysema of lung Exocrine pancreatic insufficiency Gastroesophageal reflux disease GI bleed Herniated disc History of peptic ulcer Hyperlipidemia Hypertension Migraine Osteoporosis Overactive bladder Pancreatitis Peripheral vascular disease Pneumonia due to 2019-nCoV (06/11/21) Prediabetes Pulmonary arterial hypertension Pulmonary embolism (06/2021) Surgical History Surgical History History of bladder suspension procedure History of cardiac cath History of cholecystectomy History of hysterectomy History of lumbar fusion x2 History of neck surgery (2001) History of tonsillectomy History of tubal ligation History of vascular surgery Left lower extremity. Family History Family History (Revi
[2023-08-17] MEDS: PERFLUTREN LIPID MICROSPHERES 1.5 ML VIAL DILUTED TO 10 ML TOTAL VOLUME IV PUSH (15:00)
[2023-08-17] MEDS: PREGABALIN (*CRX) 75 MG CAPSULE 150 MG PO (16:29)
[2023-08-17 16:30] VITALS: PULSE 77
[2023-08-17] MEDS: carvediloL 3.125 MG TABLET PO (16:30)
[2023-08-17] MEDS: guaiFENesin 12 HR 600 MG TABCR PO (16:30)
--- NOTE | 2023-08-17 16:33 | IVDEFINITY ---
Prior to administration of IV Definity the patient was educated on the risks and benefits of the imaging enhancing agent including potential adverse side effects. The patient verbalized understanding. Allergies were verified. No exclusion criteria were identified and at least one of the following inclusion criteria were met: 1) physician request, 2) patient technically difficult to image (per the [place] [employer]chocardi[employer] guidelines of two or more segments not discernable within the apical view), or 3) questionable left ventricular function. ?
[2023-08-17] MEDS: HYDROcodone/acetaminophen (*CRX) 5-325 MG TABLET 1 TAB PO ×2 (16:44→21:07)
[2023-08-17] MEDS: traZODone HCL 50 MG TABLET 150 MG PO (20:54)
[2023-08-17] MEDS: MELATONIN 5 MG TABLET PO (20:55)
[2023-08-17 22:00] VITALS: BP 117/64; PULSE 70; RESP 16; TEMP 36.2; O2SAT 96
--- NOTE | 2023-08-17 23:36 | PC.NURSE ---
positive cdiff result seen, RN to lab to confirm positive result because no critical result was called when c diff result came back, lab verified positive result, RN called to and new orders were recieved
[2023-08-17 23:37] LABS: Toxigenic C. Diff POSITIVE (NEGATIVE)
[2023-08-18] VITALS (15 sets, daily range): BP systolic 113–164; BP diastolic 62–88; PULSE 60–75; RESP 16–23; TEMP 36.1–36.8; O2SAT 95–100
[2023-08-18] MEDS: LIPASE/AMYLASE/PROTEASE 12,000 UNITS CAP 4 CAP PO ×3 (05:27→16:57)
[2023-08-18 07:12] LABS: Basophils Absolute Auto 0.1 K/mm3 (0.0-0.1); Basophils Percent Auto 0.6 % (0.2-1.2); Eosinophils Absolute Auto 0.4 K/mm3 (0-0.3); Eosinophils Percent Auto 4.5 % (0-4.4); Hematocrit 32.6 % (37.0-47.0); Hemoglobin 9.7 g/dL (12.0-15.0); Immature Granulocyte Absolute 0.02 K/mm3 (0.00-0.031); Immature Granulocyte Percent A 0.3 % (0-0.5); Lymphocytes Absolute Auto 2.07 K/mm3 (0.9-3.2); Lymphocytes Percent Auto 26.7 % (18.3-44.2); Mean Corpuscular HGB Conc 29.8 g/dl (32-36); Mean Corpuscular Hemoglobin 30.8 pg (26-34); Mean Corpuscular Volume 103.5 fl (80-100); Mean Platelet Volume 11.8 fl (7.4-10.4); Monocytes Absolute Auto 0.5 K/mm3 (0.1-0.6); Monocytes Percent Auto 6.5 % (2.6-8.5); Neutrophils Absolute Auto 4.8 K/mm3 (1.3-6.7); Neutrophils Percent Auto 61.4 % (45.5-73.1); Platelet Count Result 180 k/mm3 (150-375); Red Blood Count 3.15 M/mm3 (4.2-5.4); Red Cell Distribution Width 13.1 % (11.5-14.5); White Blood Count 7.7 K/mm3 (4.5-10.0)
[2023-08-18 07:15] LABS: Alanine Aminotransferase 16 U/L (6-35); Albumin Level 3.8 g/dL (3.5-5.1); Alkaline Phosphatase 44 U/L (38-126); Anion Gap 8 mmol/L (8-16); Aspartate Amino Transferase 19 U/L (14-36); Bilirubin,Total 0.4 mg/dL (0.2-1.3); Blood Urea Nitrogen 14 mg/dL (7-17); Calcium 8.8 mg/dL (8.4-10.2); Carbon Dioxide 37 mmol/L (22-30); Chloride 95 mmol/L (98-107); Estimated CRCL calculation 53 ml/min; Estimated Glomerular Filt Rate > 60; Glucose 123 mg/dL (65-110); Potassium 4.1 mmol/L (3.4-5.0); Sodium 140 mmol/L (137-145)
[2023-08-18] MEDS: UMECLIDINIUM/VILANTEROL 62.5-25 MCG ELLIPTA 1 PUFF INHALATION (07:30)
[2023-08-18 07:49] LABS: Iron 40 ug/dL (37-170)
[2023-08-18 07:58] LABS: Percent Iron Saturation 19 % (20-50)
[2023-08-18 08:28] LABS: Hypochromasia 2+ (NORMAL); Macrocytosis 1+ (NORMAL); Platelet Estimate Adequate (Adequate); Schistocytes None Seen (NORMAL); Stomatocytes 1+ (NORMAL)
[2023-08-18 08:39] LABS: Folic Acid > 20.0 ng/mL (2.76->20)
[2023-08-18] MEDS: FLUTICASONE PROPIONATE 0.05% NA SPR 16 GM BTL (*BKC) 2 SPRAY NASAL (08:57)
[2023-08-18] MEDS: LORATADINE 10 MG TABLET PO (08:59)
[2023-08-18] MEDS: MAGNESIUM OXIDE 400 MG TABLET PO (08:59)
[2023-08-18] MEDS: FERROUS SULFATE 325 MG TABLET DR PO (08:59)
[2023-08-18] MEDS: POTASSIUM CHLORIDE 20 MEQ ER TABLET PO (08:59)
[2023-08-18] MEDS: carvediloL 3.125 MG TABLET PO ×2 (08:59→16:58)
[2023-08-18] MEDS: guaiFENesin 12 HR 600 MG TABCR PO ×2 (08:59→16:58)
[2023-08-18] MEDS: FOLIC ACID 1 MG TABLET PO (08:59)
[2023-08-18] MEDS: PANTOPRAZOLE 40 MG TABLET PO (09:00)
[2023-08-18] MEDS: PREGABALIN (*CRX) 75 MG CAPSULE 150 MG PO ×2 (09:00→16:58)
[2023-08-18] MEDS: ATORVASTATIN 40 MG TABLET 80 MG PO (09:00)
[2023-08-18] MEDS: buPROPion HCL 75 MG TABLET PO (10:30)
[2023-08-18] MEDS: VANCOMYCIN ORAL 125 MG/2.5 ML SYRUP PO ×3 (10:31→23:45)
--- NOTE | 2023-08-18 13:04 | PM.IMPN ---
Progress Note: A&P Assessment and Plan (1) C. difficile colitis: Code(s): A04.72 - Enterocolitis due to Clostridium difficile, not specified as recurrent Status: Acute Assessment and Plan: Started on oral vancomycin EGD planned for tomorrow, patient refusing colonoscopy (2) Fall: Qualifiers: Encounter type: initial encounter Qualified Code(s): W19.XXXA - Unspecified fall, initial encounter Code(s): W19.XXXA - Unspecified fall, initial encounter Status: Acute Assessment and Plan: Appears to be mechanical, check orthostatic vital signs PT/OT (3) Guaiac positive stools: Code(s): R19.5 - Other fecal abnormalities Status: Acute Assessment and Plan: GI consult ordered and pending Check iron studies, B12 (4) Chronic obstructive pulmonary disease: Code(s): J44.9 - Chronic obstructive pulmonary disease, unspecified Status: Acute Assessment and Plan: Does not appear to be in acute exacerbation (5) Diastolic congestive heart failure: Code(s): I50.30 - Unspecified diastolic (congestive) heart failure Status: Acute Assessment and Plan: Check echo (6) Hypertension: Code(s): I10 - Essential (primary) hypertension Status: Acute Assessment and Plan: Blood pressure reviewed 08/18 (7) HLD (hyperlipidemia): Code(s): E78.5 - Hyperlipidemia, unspecified Status: Acute (8) Dementia: Code(s): F03.90 - Unspecified dementia, unspecified severity, without behavioral disturbance, psychotic disturbance, mood disturbance, and anxiety Status: Chronic Plan DVT prophylaxis with SCDs GI prophylaxis not indicated Code status full code Subjective Date/time seen: 08/18/23 13:04 Interval history: 78-year-old female from nursing facility with history of COPD, heart failure, GERD, dementia among other comorbidities is presenting after a ground level fall with head trauma but no loss of consciousness and currently being treated for C diff infection. No overnight events noted. No chest pain or shortness of breath. No nausea, vomiting. No fevers or chills. Review of Systems Review of Systems: 12 point review of systems was assessed and was negative except as noted in the HPI Exam Narrative: General: No acute distress, alert and oriented per baseline HEENT: Atraumatic, normocephalic, mucous membranes moist CV: Regular rate and rhythm, S1, S2 Lungs: Clear to auscultation bilaterally, no rales or crackles noted, no wheezes, good air entry Abdomen: Soft, nontender, nondistended Extremities: Normal to inspection Skin: No rashes noted, no lesions or wounds seen Psych: Euthymic, normal affect Objective Data Vital Signs Vital Signs: Vital Signs - 24 hr 08/17/23 16:30 08/17/23 22:00 08/18/23 06:00 Temperature 97.2 F L 98.0 F Pulse Rate 77 70 60 Respiratory Rate 16 16 Blood Pressure 117/64 127/75 Pulse Oximetry 96 99 Oxygen Delivery Oxygen Flow Rate 08/18/23 08:59 08/18/23 08:00 Temperature Pulse Rate 60 Respiratory Rate Blood Pressure Pulse Oximetry 99 Oxygen Delivery Nasal Cannula Oxygen Flow Rate 2 Intake/Output Intake/Output: Intake & Output 08/15/23 08/16/23 08/17/23 08/18/23 23:59 23:59 23:59 23:59 Intake Total 50 1989 Balance 50 1989 50 Meds/Results Medications: Active Medications Generic Name Dose Route Start Last Admin Trade Name Freq PRN Reason Stop Dose Admin Acetaminophen 650 mg 08/17/23 10:42 Acetaminophen 325 Mg Tablet PO Q6H PRN Mild Pain (Scale Score 1-4) Hydrocodone Bitart/Acetaminophen 1 tab 08/17/23 10:42 08/17/23 21:07 Hydrocodone/Acetaminophen (*Crx) 5-325 Mg Tablet PO 1 tab BID PRN Administration Pain (Scale Score 7-10) Albuterol 1 puff 08/17/23 10:42 Albuterol Sulfate (*Sp) Aerosol 1 Puff INHALATION Q4HRT PRN
--- NOTE | 2023-08-18 15:45 | PCPTNOTE ---
Attempted PT evaluation, pt leaving for a procedure at this time. Will Follow.
--- NOTE | 2023-08-18 15:55 | PC.NURSE ---
To GI Lab per rosetta.
[2023-08-18] MEDS: LACTATED RINGERS 1,000 ML 150 ML IV CONT (16:07)
--- NOTE | 2023-08-18 16:08 | WPDANESEPPF ---
Anes - Initial Pre Proc Eval Procedure: Operation Date: 08/18/23 15:00 Proposed Procedures p Esophagogastroduodenoscopy - Mike Lizarraga MD Date/Time: 08/18/23 16:08 Surgeon: Natacha Zheng MD Pre Op Diagnosis: UTI/Bloody Stool Patient Data Age: 78 Gender: F Height: 1.63 m Weight: 87.6 kg Last Vital Signs Temp 36.7 C 08/18/23 06:00 Pulse 60 08/18/23 08:59 Resp 16 08/18/23 06:00 BP 127/75 08/18/23 06:00 Pulse Ox 99 08/18/23 08:00 O2 Del Method Nasal Cannula 08/18/23 08:00 O2 Flow Rate 2 08/18/23 08:00 FiO2 28 08/17/23 08:48 Allergies Allergy/AdvReac Type Severity Reaction Status Date / Time No Known Allergies Allergy Unknown Verified 08/18/23 16:01 Home Medications Medication Instructions Recorded Confirmed Type cetirizine 10 mg tablet (Zyrtec) 10 mg PO DAILY #90 tabs 12/23/20 08/16/23 Rx pregabalin 150 mg capsule (Lyrica) 150 mg PO BID #60 caps 02/03/21 08/16/23 Rx albuterol sulfate 90 mcg/actuation 1 inh inhalation Q4H PRN shortness 03/09/21 08/16/23 Rx aerosol inhaler of breath or wheezing #8.5 grams ferrous sulfate 325 mg (65 mg 325 mg PO DAILY #90 tabs 03/30/21 08/16/23 Rx iron) tablet folic acid 1 mg tablet 1 mg PO DAILY #90 tabs 03/30/21 08/16/23 Rx atorvastatin 80 mg tablet 80 mg PO DAILY #90 tabs 04/06/21 08/16/23 Rx potassium chloride 20 mEq 20 meq PO DAILY #30 tabs 07/02/21 08/16/23 Rx tablet,extended release acetaminophen 650 mg 650 mg PO Q6H PRN Mild Pain (Scale 10/09/21 08/16/23 History tablet,extended release Score 1-4) benzonatate 200 mg capsule 200 mg PO Q8H PRN Cough 10/09/21 08/16/23 History carvedilol 3.125 mg tablet (Coreg) 3.125 mg PO BID 10/09/21 08/16/23 History magnesium hydroxide 400 mg/5 mL 400 mg PO Q72H PRN Constipation 10/09/21 08/16/23 History oral suspension (Milk of Magnesia) magnesium oxide 400 mg (241.3 mg 400 mg PO DAILY 10/09/21 08/16/23 History magnesium) tablet ondansetron 4 mg disintegrating 4 mg PO Q6H PRN nausea and 10/09/21 08/16/23 History tablet vomitting trazodone 300 mg tablet 150 mg PO HS 10/09/21 08/16/23 History apixaban 2.5 mg tablet (Eliquis) 2.5 mg PO BID 01/12/23 08/16/23 History bupropion HCl 75 mg tablet 75 mg PO DAILY 01/12/23 08/16/23 History cholecalciferol (vitamin D3) 1,250 1,000 mcg PO DAILY 01/12/23 08/17/23 History mcg (50,000 unit) tablet furosemide 40 mg tablet 40 mg PO QAM 01/12/23 08/16/23 History guaifenesin 600 mg tablet, 600 mg PO BID 01/12/23 08/16/23 History extended release 12 hr ipratropium 0.5 mg-albuterol 3 mg 3 ml inhalation QID PRN Congestion 01/12/23 08/16/23 History (2.5 mg base)/3 mL nebulization soln lidocaine 4 % topical cream 1 applic topical QID PRN Pain 01/12/23 08/16/23 History (Scale Score 1-3) [id number] 2 cap PO AC 01/12/23 08/16/23 History 24,000-76,000-120,000 unit capsule,delayed rel (Creon) melatonin 5 mg/15 mL oral liquid 5 mg PO HS 01/12/23 08/16/23 History pantoprazole 40 mg tablet,delayed 40 mg PO QAM 01/12/23 08/16/23 History release (Protonix) sodium phosphates 19 gram-7 118 ml RECTAL ONCE PRN Constipation 01/12/23 08/16/23 History gram/118 mL enema (Fleet Enema) diclofenac sodium 1 % topical gel 2 g topical QID PRN Pain (Scale 05/24/23 08/16/23 History Score 1-3) hydrocodone 5 mg-acetaminophen 325 1 tablet PO BID PRN Pain (Scale 05/24/23 08/16/23 History mg tablet Score 7-10) meloxicam submicronized 10 mg 10 mg PO DAILY 05/24/23 08/16/23 History capsule fluticasone propionate 50 2 spray intranasal DAILY 08/16/23 08/16/23 History mcg/actuation nasal spray,suspension (Flonase Allergy Relief) umeclidinium 62.5 mcg-vilanterol 1 inh inhalation DAILY 08/16/23 08/16/23 History 25 mcg/actuation powdr for inhalation (Anoro Ellipta) Laboratory Tests 08/17/23 08/18/23 19:35 06:49 WBC 7.7 K/mm3 (4.5-10.0) RBC 3.15 L M/mm3 (4.2-5.4) Hgb 9.7 L g/dL
--- NOTE | 2023-08-18 16:30 | PC.NURSE ---
Telephone report received from [facility] webmethods consultant.
--- NOTE | 2023-08-18 16:52 | PC.NURSE ---
Return from GI Lab per rosetta.
[2023-08-18] MEDS: HYDROcodone/acetaminophen (*CRX) 5-325 MG TABLET 1 TAB PO ×2 (16:57→21:58)
[2023-08-18] MEDS: CHOLECALCIFEROL 1,000 UNITS TABLET 1000 UNITS PO (16:58)
[2023-08-18] MEDS: traZODone HCL 50 MG TABLET 150 MG PO (21:53)
[2023-08-18] MEDS: MELATONIN 5 MG TABLET PO (21:54)
[2023-08-19 04:50] VITALS: BP 138/64; PULSE 66; RESP 16; TEMP 36.1; O2SAT 98
[2023-08-19] MEDS: LIPASE/AMYLASE/PROTEASE 12,000 UNITS CAP 4 CAP PO ×2 (05:37→12:59)
[2023-08-19] MEDS: VANCOMYCIN ORAL 125 MG/2.5 ML SYRUP PO ×2 (05:37→12:58)
[2023-08-19 07:20] LABS: Basophils Percent Auto 0.5 % (0.2-1.2); Eosinophils Absolute Auto 0.4 K/mm3 (0-0.3); Eosinophils Percent Auto 5.2 % (0-4.4); Hematocrit 32.7 % (37.0-47.0); Hemoglobin 10.1 g/dL (12.0-15.0); Immature Granulocyte Absolute 0.02 K/mm3 (0.00-0.031); Immature Granulocyte Percent A 0.3 % (0-0.5); Lymphocytes Percent Auto 28.8 % (18.3-44.2); Mean Corpuscular HGB Conc 30.9 g/dl (32-36); Mean Corpuscular Hemoglobin 30.9 pg (26-34); Mean Platelet Volume 11.8 fl (7.4-10.4); Monocytes Absolute Auto 0.5 K/mm3 (0.1-0.6); Monocytes Percent Auto 7.1 % (2.6-8.5); Neutrophils Absolute Auto 4.2 K/mm3 (1.3-6.7); Neutrophils Percent Auto 58.1 % (45.5-73.1); Platelet Count Result 190 k/mm3 (150-375); Red Blood Count 3.27 M/mm3 (4.2-5.4); Red Cell Distribution Width 12.9 % (11.5-14.5); White Blood Count 7.3 K/mm3 (4.5-10.0)
[2023-08-19 07:34] LABS: Alanine Aminotransferase 14 U/L (6-35); Albumin Level 3.8 g/dL (3.5-5.1); Alkaline Phosphatase 46 U/L (38-126); Anion Gap 4 mmol/L (8-16); Aspartate Amino Transferase 20 U/L (14-36); Bilirubin,Total 0.4 mg/dL (0.2-1.3); Blood Urea Nitrogen 13 mg/dL (7-17); Calcium 9.2 mg/dL (8.4-10.2); Carbon Dioxide 39 mmol/L (22-30); Chloride 98 mmol/L (98-107); Estimated CRCL calculation 53 ml/min; Estimated Glomerular Filt Rate > 60; Glucose 109 mg/dL (65-110); Potassium 4.1 mmol/L (3.4-5.0); Sodium 141 mmol/L (137-145)
[2023-08-19] MEDS: UMECLIDINIUM/VILANTEROL 62.5-25 MCG ELLIPTA 1 PUFF INHALATION (07:53)
[2023-08-19 10:15] VITALS: O2SAT 98
[2023-08-19] MEDS: HYDROcodone/acetaminophen (*CRX) 5-325 MG TABLET 1 TAB PO (10:16)
[2023-08-19] MEDS: PANTOPRAZOLE 40 MG TABLET PO (10:17)
[2023-08-19] MEDS: POTASSIUM CHLORIDE 20 MEQ ER TABLET PO (10:17)
[2023-08-19] MEDS: ATORVASTATIN 40 MG TABLET 80 MG PO (10:17)
[2023-08-19] MEDS: buPROPion HCL 75 MG TABLET PO (10:17)
[2023-08-19] MEDS: CHOLECALCIFEROL 1,000 UNITS TABLET 1000 UNITS PO (10:18)
[2023-08-19] MEDS: FERROUS SULFATE 325 MG TABLET DR PO (10:18)
[2023-08-19] MEDS: PREGABALIN (*CRX) 75 MG CAPSULE 150 MG PO (10:18)
[2023-08-19] MEDS: MAGNESIUM OXIDE 400 MG TABLET PO (10:18)
[2023-08-19] MEDS: guaiFENesin 12 HR 600 MG TABCR PO (10:18)
[2023-08-19] MEDS: FOLIC ACID 1 MG TABLET PO (10:19)
[2023-08-19] MEDS: LORATADINE 10 MG TABLET PO (10:19)
[2023-08-19] MEDS: FLUTICASONE PROPIONATE 0.05% NA SPR 16 GM BTL (*BKC) 2 SPRAY NASAL (10:22)
[2023-08-19 10:23] VITALS: PULSE 76
[2023-08-19] MEDS: carvediloL 3.125 MG TABLET PO (10:23)
--- NOTE | 2023-08-19 11:18 | PM.DS ---
DS: Admitting Diagnosis Discharge Date 08/19/23 Admitting Diagnosis fall DS: Discharge Diagnosis Discharge Diagnosis (1) C. difficile colitis: Code(s): A04.72 - Enterocolitis due to Clostridium difficile, not specified as recurrent Status: Acute Assessment and Plan: Started on oral vancomycin EGD planned for tomorrow, patient refusing colonoscopy (2) Fall: Qualifiers: Encounter type: initial encounter Qualified Code(s): W19.XXXA - Unspecified fall, initial encounter Code(s): W19.XXXA - Unspecified fall, initial encounter Status: Acute Assessment and Plan: Appears to be mechanical, check orthostatic vital signs PT/OT (3) Guaiac positive stools: Code(s): R19.5 - Other fecal abnormalities Status: Acute Assessment and Plan: GI consult ordered and pending Check iron studies, B12 (4) Chronic obstructive pulmonary disease: Code(s): J44.9 - Chronic obstructive pulmonary disease, unspecified Status: Acute Assessment and Plan: Does not appear to be in acute exacerbation (5) Diastolic congestive heart failure: Code(s): I50.30 - Unspecified diastolic (congestive) heart failure Status: Acute Assessment and Plan: Check echo (6) Hypertension: Code(s): I10 - Essential (primary) hypertension Status: Acute Assessment and Plan: Blood pressure reviewed 08/18 (7) HLD (hyperlipidemia): Code(s): E78.5 - Hyperlipidemia, unspecified Status: Acute (8) Dementia: Code(s): F03.90 - Unspecified dementia, unspecified severity, without behavioral disturbance, psychotic disturbance, mood disturbance, and anxiety Status: Chronic Plan DVT prophylaxis with SCDs GI prophylaxis not indicated Code status full code DS: Summary Hospital Course Hospital Course: 78-year-old female from nursing facility with history of COPD, heart failure, GERD, dementia among other comorbidities is presenting after a ground level fall with head trauma but no loss of consciousness and currently being treated for C diff infection. Patient found to be C diff positive and started on oral vancomycin. GI consult an EGD performed showing mild gastritis, okay for anticoagulation. PT/OT evaluated and patient was stable for discharge. Please see above and med rec for details. Patient was discharged in stable condition with close outpatient follow-up. Time Spent with Patient Time attestation: Total time spent providing and/or coordinating discharge services: Exam Narrative: General: No acute distress, alert and oriented per baseline HEENT: Atraumatic, normocephalic, mucous membranes moist CV: Regular rate and rhythm, S1, S2 Lungs: Clear to auscultation bilaterally, no rales or crackles noted, no wheezes, good air entry Abdomen: Soft, nontender, nondistended Extremities: Normal to inspection Skin: No rashes noted, no lesions or wounds seen Psych: Euthymic, normal affect DS: Data Data Completed and Pending Pending studies at discharge: Pending at discharge 08/18/23 16:22 Surgical [PTH] Routine Labs on day of discharge: Labs from last 24 hours 08/19/23 06:51 WBC 7.3 RBC 3.27 L Hgb 10.1 L Hct 32.7 L MCV 100.0 MCH 30.9 MCHC 30.9 L RDW 12.9 Plt Count 190 MPV 11.8 H Immature Gran % (Auto) 0.3 Neut % (Auto) 58.1 Lymph % (Auto) 28.8 [place] % (Auto) 7.1 Eos % (Auto) 5.2 H Baso % (Auto) 0.5 Lymph # (Auto) 2.10 [place] # (Auto) 0.5 Eos # (Auto) 0.4 H Baso # (Auto) 0.0 Abs Immat Gran (auto) 0.02 Absolute Neuts (auto) 4.2 Absolute Nucleated RBC 0.0 Nucleated RBC % 0.0 Sodium 141 Potassium 4.1 Chloride 98 Carbon Dioxide 39 H Anion Gap 4 L BUN 13 Creatinine 0.80 Estim Creat Clear Calc 53 Estimated GFR > 60 Glucose 109 Calcium 9.2 Total Bilirubin 0.4 AST 20 ALT 14 Alkaline Phosphatase 46 Total Protein 7.0 A
[2023-08-19 14:00] VITALS: BP 112/67; PULSE 67; RESP 16; TEMP 37; O2SAT 97
[2023-08-19 15:20] LABS: SARS-CoV-2 RNA PCR Negative (Negative)
== END 2023-08-19 15:50 ==
LOC: ANHED 17:24 → ANH3MEDSUR 20:15
PROVIDERS: Internal Medicine Gastroenterology; Admitting Provider Student in an Organized Health Care Education/Training Program; Emergency Provider Nurse Practitioner Family; PCP Internal Medicine; Visit Provider Student in an Organized Health Care Education/Training Program
PROC: 0DJ08ZZ Inspection of Upper Intestinal Tract, Via Natural or Artificial Opening Endoscopic (ICD-10-PCS; CPT 43235; principal; 2023-08-18 15:00)
DX: K21.9 Gastro-esophageal reflux disease without esophagitis (principal); K29.70 Gastritis, unspecified, without bleeding; A04.72 Enterocolitis due to Clostridium difficile, not specified as recurrent; B96.20 Unspecified Escherichia coli [E. coli] as the cause of diseases classified elsewhere; D64.9 Anemia, unspecified; S09.90XA Unspecified injury of head, initial encounter; W18.30XA Fall on same level, unspecified, initial encounter; I11.0 Hypertensive heart disease with heart failure; I50.30 Unspecified diastolic (congestive) heart failure; K59.00 Constipation, unspecified; K85.90 Acute pancreatitis without necrosis or infection, unspecified; Z20.822 Contact with and (suspected) exposure to COVID-19; J84.9 Interstitial pulmonary disease, unspecified; J96.12 Chronic respiratory failure with hypercapnia; J96.11 Chronic respiratory failure with hypoxia; Z99.81 Dependence on supplemental oxygen; F41.9 Anxiety disorder, unspecified; R73.03 Prediabetes; M81.0 Age-related osteoporosis without current pathological fracture; N32.81 Overactive bladder; M16.0 Bilateral primary osteoarthritis of hip; M85.811 Other specified disorders of bone density and structure, right shoulder; M47.816 Spondylosis without myelopathy or radiculopathy, lumbar region; M47.812 Spondylosis without myelopathy or radiculopathy, cervical region; I08.1 Rheumatic disorders of both mitral and tricuspid valves; F03.90 Unspecified dementia, unspecified severity, without behavioral disturbance, psychotic disturbance, mood disturbance, and anxiety; I27.20 Pulmonary hypertension, unspecified; R11.2 Nausea with vomiting, unspecified; E78.5 Hyperlipidemia, unspecified; Z87.891 Personal history of nicotine dependence; Z86.711 Personal history of pulmonary embolism; Z86.73 Personal history of transient ischemic attack (TIA), and cerebral infarction without residual deficits; Z82.5 Family history of asthma and other chronic lower respiratory diseases; Z79.82 Long term (current) use of aspirin; Z79.01 Long term (current) use of anticoagulants; Z79.891 Long term (current) use of opiate analgesic; Z79.51 Long term (current) use of inhaled steroids; Z79.899 Other long term (current) drug therapy
CPT/HCPCS: 43239; 36415; 70450; 72125; 72131; 72192; 73030; 73521; 80048; 80053; 81001; 82274; 82607; 82728; 82746; 83540; 83550; 84443; 85025; 87077; 87081; 87086; 87186; 87493; 87635; 88305; 94640; 96365; 96375; 96376; 99285; A9270; C8929; C9113; G0378; J0696; J1170; J2704; J3010; J7120; Q9957

== ENCOUNTER 2023-09-01 13:22 | Emergency (ER) | payer MEDICARE, MEDICAID, SELFPAY ==
[2023-09-01] VITALS (36 sets, daily range): BP systolic 120–167; BP diastolic 45–105; PULSE 61–122; RESP 9–24; TEMP 37; O2SAT 95–100
--- NOTE | ~2023-09-01 | CT_ITS ---
EXAMINATION: CT brain wo con DATE: 09/01/2023 14:16 INDICATION: Altered mental status. TECHNIQUE: Computed tomography (CT) of the head was performed without intravenous contrast. The mA wa s adjusted according to patient size. Iterative reconstruction technique was employed. The dose-lengt h product was 605.33 mGy-cm. COMPARISON: Head CT 08/16/2023 FINDINGS: There are scattered areas of low attenuation in the cerebral white matter and bilateral bas al ganglia. There is no intracranial hemorrhage, acute infarction, or abnormal intracranial mass lesi on. There is an old infarct in the left cerebellum. The ventricles are normal in size. There are like ly changes of ocular lens replacement surgeries. There is mild mucosal thickening in the paranasal si nuses. The mastoid air cells are normal. IMPRESSION: 1. 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 2. Stable moderate nonspecific cerebral white matter disease and disease of the bilateral basal gangl ia, which likely represents chronic small vessel ischemic disease. Reviewed, dictated and finalized at location A. URCE TECHNICIAN IMPRESSION: 1. 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 2. Stable moderate nonspecific cerebral white matter disease and disease of the bilateral basal ganglia, which likely represents chronic small vessel ischemic disease.
--- NOTE | ~2023-09-01 | XR_ITS ---
EXAMINATION: XR chest 1V portable DATE: 09/01/2023 14:48 INDICATION: Dyspnea. TECHNIQUE: A single frontal view of the chest was obtained. COMPARISON: Chest single view 06/25/2023, chest CT 08/30/2022 FINDINGS: There is chronic elevation of right hemidiaphragm. There is a chronic heterogeneous coarse interstitial pattern in the lungs. There are worsened airspace opacities in right lower lung zone. No pleural effusion or pneumothorax. The heart size is normal. There are changes of anterior fusion pro cedure in cervical spine. Surgical clips in the right upper quadrant are likely from cholecystectomy. IMPRESSION: 1. Worsened airspace opacities in right lower lung zone, likely atelectasis. 2. Chronic interstitial lung disease. Reviewed, dictated and finalized at location A. TERIA SERVER
--- NOTE | 2023-09-01 13:43 | ECG_ITS ---
Measurements Intervals [place] Rate: 62 P: 29 NV: 174 QRS: 10 QRSD: 87 T: 36 QT: 394 QTc: 401 Interpretive Statements SINUS RHYTHM NORMAL ECG COMPARED TO ECG 06/25/2023 15:22:37 NO SIGNIFICANT CHANGES Electronically Signed On 09-02-2023 13:51:47 CELERY WRAPPER by Mike Swan M.D.
[2023-09-01 15:29] LABS: Basophils Percent Auto 0.3 % (0.2-1.2); Eosinophils Absolute Auto 0.2 K/mm3 (0-0.3); Eosinophils Percent Auto 1.8 % (0-4.4); Hematocrit 35.5 % (37.0-47.0); Hemoglobin 10.6 g/dL (12.0-15.0); Immature Granulocyte Absolute 0.07 K/mm3 (0.00-0.031); Immature Granulocyte Percent A 0.8 % (0-0.5); Lymphocytes Absolute Auto 1.64 K/mm3 (0.9-3.2); Lymphocytes Percent Auto 18.4 % (18.3-44.2); Mean Corpuscular HGB Conc 29.9 g/dl (32-36); Mean Corpuscular Hemoglobin 30.6 pg (26-34); Mean Corpuscular Volume 102.6 fl (80-100); Mean Platelet Volume 11.6 fl (7.4-10.4); Monocytes Absolute Auto 0.4 K/mm3 (0.1-0.6); Monocytes Percent Auto 4.5 % (2.6-8.5); Neutrophils Absolute Auto 6.6 K/mm3 (1.3-6.7); Neutrophils Percent Auto 74.2 % (45.5-73.1); Platelet Count Result 196 k/mm3 (150-375); Red Blood Count 3.46 M/mm3 (4.2-5.4); Red Cell Distribution Width 13.1 % (11.5-14.5); White Blood Count 8.9 K/mm3 (4.5-10.0)
[2023-09-01 15:43] LABS: Alanine Aminotransferase 20 U/L (6-35); Albumin Level 4.2 g/dL (3.5-5.1); Alkaline Phosphatase 57 U/L (38-126); Aspartate Amino Transferase 24 U/L (14-36); Bilirubin,Total 0.5 mg/dL (0.2-1.3); Blood Urea Nitrogen 26 mg/dL (7-17); Carbon Dioxide > 40 mmol/L (22-30); Chloride 99 mmol/L (98-107); Creatine Kinase 24 U/L (30-135); Estimated CRCL calculation 41 ml/min; Estimated Glomerular Filt Rate 53; Glucose 91 mg/dL (65-110); Potassium 5.3 mmol/L (3.4-5.0); Sodium 144 mmol/L (137-145)
[2023-09-01 16:02] LABS: Platelet Estimate Adequate (Adequate)
[2023-09-01 16:03] LABS: Hypochromasia 1+ (NORMAL); Schistocytes None Seen (NORMAL)
[2023-09-01 16:11] LABS: Thyroid Stimulating Hormone 0.789 uIU/mL (0.465-4.680)
[2023-09-01 17:56] LABS: Appearance Urine Clear (Clear); Bilirubin Urine Negative (Negative); Blood Urine Negative (Negative); Color Urine Yellow (Yellow); Glucose Urine UA Negative (Negative); Ketones Urine Negative (Negative); Leukocyte Esterase Ur Negative LEU/UL (Negative); Nitrate Urine Negative (Negative); Protein Urine Negative (Negative); Specific Grav Ur 1.014 (1.001-1.035); Urobilinogen Urine 0.2 mg/dL (<2.0)
[2023-09-01 18:00] LABS: Add Urine Microscopic? NO
--- NOTE | 2023-09-01 18:05 | ED.AMS ---
HPI - Altered Mental Status General Chief Complaint: Altered Mental Status Stated Complaint: COVID+ Time Seen by Provider: 09/01/23 13:42 History of Present Illness HPI narrative: Patient diagnosed with COVID 7 days ago, she was sent in due to concern for altered mental status. Patient reports cough and congestion but denies any complaints otherwise. Related Data Home Medications Medication Instructions Recorded Confirmed acetaminophen 650 mg 650 mg PO Q6H PRN Mild Pain (Scale 10/09/21 08/16/23 tablet,extended release Score 1-4) benzonatate 200 mg capsule 200 mg PO Q8H PRN Cough 10/09/21 08/16/23 carvedilol 3.125 mg tablet (Coreg) 3.125 mg PO BID 10/09/21 08/16/23 magnesium hydroxide 400 mg/5 mL 400 mg PO Q72H PRN Constipation 10/09/21 08/16/23 oral suspension (Milk of Magnesia) magnesium oxide 400 mg (241.3 mg 400 mg PO DAILY 10/09/21 08/16/23 magnesium) tablet ondansetron 4 mg disintegrating 4 mg PO Q6H PRN nausea and 10/09/21 08/16/23 tablet vomitting trazodone 300 mg tablet 150 mg PO HS 10/09/21 08/16/23 apixaban 2.5 mg tablet (Eliquis) 2.5 mg PO BID 01/12/23 08/16/23 bupropion HCl 75 mg tablet 75 mg PO DAILY 01/12/23 08/16/23 cholecalciferol (vitamin D3) 1,250 1,000 mcg PO DAILY 01/12/23 08/17/23 mcg (50,000 unit) tablet furosemide 40 mg tablet 40 mg PO QAM 01/12/23 08/16/23 guaifenesin 600 mg tablet, 600 mg PO BID 01/12/23 08/16/23 extended release 12 hr ipratropium 0.5 mg-albuterol 3 mg 3 ml inhalation QID PRN Congestion 01/12/23 08/16/23 (2.5 mg base)/3 mL nebulization soln lidocaine 4 % topical cream 1 applic topical QID PRN Pain 01/12/23 08/16/23 (Scale Score 1-3) [id number] 2 cap PO AC 01/12/23 08/16/23 24,000-76,000-120,000 unit capsule,delayed rel (Creon) melatonin 5 mg/15 mL oral liquid 5 mg PO HS 01/12/23 08/16/23 pantoprazole 40 mg tablet,delayed 40 mg PO QAM 01/12/23 08/16/23 release (Protonix) sodium phosphates 19 gram-7 118 ml RECTAL ONCE PRN Constipation 01/12/23 08/16/23 gram/118 mL enema (Fleet Enema) diclofenac sodium 1 % topical gel 2 g topical QID PRN Pain (Scale 05/24/23 08/16/23 Score 1-3) hydrocodone 5 mg-acetaminophen 325 1 tablet PO BID PRN Pain (Scale 05/24/23 08/16/23 mg tablet Score 7-10) meloxicam submicronized 10 mg 10 mg PO DAILY 05/24/23 08/16/23 capsule fluticasone propionate 50 2 spray intranasal DAILY 08/16/23 08/16/23 mcg/actuation nasal spray,suspension (Flonase Allergy Relief) umeclidinium 62.5 mcg-vilanterol 1 inh inhalation DAILY 08/16/23 08/16/23 25 mcg/actuation powdr for inhalation (Anoro Ellipta) Allergies Allergy/AdvReac Type Severity Reaction Status Date / Time No Known Allergies Allergy Unknown Verified 08/18/23 16:01 Review of Systems Review of Systems: All systems reviewed & are unremarkable except as noted in HPI and below PMFSH Past Medical History Medical History Anemia of chronic disease Anxiety Arthritis Cerebrovascular accident Chronic interstitial lung disease Chronic obstructive pulmonary disease Chronic respiratory failure with hypoxia and hypercapnia On 2 to 3 L nasal cannula. Clostridium difficile diarrhea Dementia Depression Diastolic congestive heart failure Emphysema of lung Exocrine pancreatic insufficiency Gastroesophageal reflux disease GI bleed Herniated disc History of peptic ulcer Hyperlipidemia Hypertension Migraine Osteoporosis Overactive bladder Pancreatitis Peripheral vascular disease Pneumonia due to 2019-nCoV (06/11/21) Prediabetes Pulmonary arterial hypertension Pulmonary embolism (06/2021) Surgical History Surgical History History of bladder suspension procedure History of cardiac cath History of cholecystectomy History of hysterectomy History of lumbar fusion x2 History of neck surgery (2001) History of tonsillectomy History of tu
--- NOTE | 2023-09-01 18:41 | PC.NURSE ---
Report attempted to call [facility] with no answer with multiple attempts.
--- NOTE | 2023-09-01 19:15 | PC.NURSE ---
Attempted to call report to [facility] x 3 by this RN. No answer. Pt's daughter updated via phone call. Pt aware she is awaiting transport back to facility. Pt given sandwich, chips, and drink upon request. Pt currently A&Ox3.
== END 2023-09-01 20:08 ==
PROVIDERS: Emergency Provider Emergency Medicine; PCP Internal Medicine
DX: U07.1 COVID-19 (principal); F03.90 Unspecified dementia, unspecified severity, without behavioral disturbance, psychotic disturbance, mood disturbance, and anxiety; J84.9 Interstitial pulmonary disease, unspecified; J43.9 Emphysema, unspecified; F32.A Depression, unspecified; I50.30 Unspecified diastolic (congestive) heart failure; I11.0 Hypertensive heart disease with heart failure; I49.3 Ventricular premature depolarization; I27.21 Secondary pulmonary arterial hypertension; E78.5 Hyperlipidemia, unspecified; D63.8 Anemia in other chronic diseases classified elsewhere; N32.81 Overactive bladder; K86.81 Exocrine pancreatic insufficiency; K21.9 Gastro-esophageal reflux disease without esophagitis; M19.90 Unspecified osteoarthritis, unspecified site; M81.0 Age-related osteoporosis without current pathological fracture; F41.9 Anxiety disorder, unspecified; Z98.1 Arthrodesis status; Z86.16 Personal history of COVID-19; Z87.01 Personal history of pneumonia (recurrent); Z86.711 Personal history of pulmonary embolism; Z86.73 Personal history of transient ischemic attack (TIA), and cerebral infarction without residual deficits; Z87.11 Personal history of peptic ulcer disease; Z87.891 Personal history of nicotine dependence; Z90.49 Acquired absence of other specified parts of digestive tract; Z90.710 Acquired absence of both cervix and uterus; Z79.01 Long term (current) use of anticoagulants
CPT/HCPCS: 36415; 70450; 71045; 80053; 81003; 82550; 84443; 85025; 93005; 99284

== ENCOUNTER 2023-10-10 11:56 | Emergency (ER) | payer MEDICARE, MEDICAID, SELFPAY ==
[2023-10-10] VITALS (25 sets, daily range): BP systolic 81–115; BP diastolic 40–72; PULSE 61–79; RESP 11–25; O2SAT 96–100
--- NOTE | ~2023-10-10 | XR_ITS ---
XR wrist LT min 3V DATE: 10/10/2023 11:11 INDICATION: Injury, pain TECHNIQUE: 3 views of left wrist COMPARISON: None FINDINGS: There is diffuse osteopenia. There is a comminuted intra-articular fracture of the distal radius with minimal displacement, approx imately 15 degrees apex anterior angulation with associated dorsal inclination of the distal radial a rticular surface. Minimally displaced ulnar styloid process fracture. Normal alignment at the radiocarpal joint. Polyarticular osteoarthritis involving particularly the triscaphe, first carpometacarpal, metacarpoph alangeal and multiple interphalangeal joints. IMPRESSION: Comminuted intra-articular fracture distal radius and fracture of ulnar styloid process Osteopenia Polyarticular osteoarthritis Reviewed, dictated and finalized at location L. K LAYING SUPERVISOR IMPRESSION: Comminuted intra-articular fracture distal radius and fracture of u lnar styloid process Osteopenia Polyarticular osteoarthritis
--- NOTE | ~2023-10-10 | XR_ITS ---
EXAMINATION: XR shoulder LT min 2V DATE: 10/10/2023 11:53 INDICATION: Left shoulder pain. Fall. TECHNIQUE: 4 views of left shoulder were obtained. COMPARISON: Left shoulder radiographs 08/16/2023 FINDINGS: Bone alignment is normal. No fracture. There is severe osteoarthritis of glenohumeral joint and moderate osteoarthritis of acromioclavicular joint. There are changes of anterior fusion procedu re in cervical spine. IMPRESSION: 1. Polyarticular osteoarthritis. Reviewed, dictated and finalized at location A. BILITATION CENTER MANAGER
--- NOTE | ~2023-10-10 | XR_ITS ---
EXAMINATION: XR elbow LT min 3V DATE: 10/10/2023 11:53 INDICATION: Left elbow pain. Fall. TECHNIQUE: 4 views of left elbow were obtained. COMPARISON: None. FINDINGS: Bone alignment is normal. No fracture. There is mild elbow joint osteoarthritis. No elbow j oint effusion. There is soft tissue swelling overlying the olecranon. IMPRESSION: 1. No fracture. Reviewed, dictated and finalized at location A. PRIMER POWDER BLENDER IMPRESSION: 1. No fracture.
[2023-10-10] MEDS: SODIUM CHLORIDE 0.9% IV 1,000 ML 999 ML IV CONT (11:06)
--- NOTE | 2023-10-10 11:09 | PC.NURSE ---
Report given to Jeaneth RODRIGUEZ, all questions answered
--- NOTE | 2023-10-10 11:33 | ED.FALL ---
HPI - Fall General Chief Complaint: Fall Stated Complaint: fall Source: patient Mode of arrival: EMS Limitations: no limitations History of Present Illness HPI Narrative: Patient is a 78-year-old female, with PMH of CHF, COPD, chronic hypoxic resp failure on 3L NC, who presents the ED via EMS with report of a fall. Patient is a resident of [facility]. She reports she was taking a shower this morning and went to sit down in her wheelchair afterwards, but states her wheelchair was not behind her. She fell to the ground. She attempted to catch herself with her left hand. She complains of pain to her left wrist after the fall. Deformity noted. EMS placed the patient in a splint. Patient does also c/o pain to her L elbow and L shoulder. Denies any other pain. Denies head injury or LOC. Related Data Home Medications Medication Instructions Recorded Confirmed acetaminophen 650 mg 650 mg PO Q6H PRN Mild Pain (Scale 10/09/21 08/16/23 tablet,extended release Score 1-4) benzonatate 200 mg capsule 200 mg PO Q8H PRN Cough 10/09/21 08/16/23 carvedilol 3.125 mg tablet (Coreg) 3.125 mg PO BID 10/09/21 08/16/23 magnesium hydroxide 400 mg/5 mL 400 mg PO Q72H PRN Constipation 10/09/21 08/16/23 oral suspension (Milk of Magnesia) magnesium oxide 400 mg (241.3 mg 400 mg PO DAILY 10/09/21 08/16/23 magnesium) tablet ondansetron 4 mg disintegrating 4 mg PO Q6H PRN nausea and 10/09/21 08/16/23 tablet vomitting trazodone 300 mg tablet 150 mg PO HS 10/09/21 08/16/23 apixaban 2.5 mg tablet (Eliquis) 2.5 mg PO BID 01/12/23 08/16/23 bupropion HCl 75 mg tablet 75 mg PO DAILY 01/12/23 08/16/23 cholecalciferol (vitamin D3) 1,250 1,000 mcg PO DAILY 01/12/23 08/17/23 mcg (50,000 unit) tablet furosemide 40 mg tablet 40 mg PO QAM 01/12/23 08/16/23 guaifenesin 600 mg tablet, 600 mg PO BID 01/12/23 08/16/23 extended release 12 hr ipratropium 0.5 mg-albuterol 3 mg 3 ml inhalation QID PRN Congestion 01/12/23 08/16/23 (2.5 mg base)/3 mL nebulization soln lidocaine 4 % topical cream 1 applic topical QID PRN Pain 01/12/23 08/16/23 (Scale Score 1-3) [id number] 2 cap PO AC 01/12/23 08/16/23 24,000-76,000-120,000 unit capsule,delayed rel (Creon) melatonin 5 mg/15 mL oral liquid 5 mg PO HS 01/12/23 08/16/23 pantoprazole 40 mg tablet,delayed 40 mg PO QAM 01/12/23 08/16/23 release (Protonix) sodium phosphates 19 gram-7 118 ml RECTAL ONCE PRN Constipation 01/12/23 08/16/23 gram/118 mL enema (Fleet Enema) diclofenac sodium 1 % topical gel 2 g topical QID PRN Pain (Scale 05/24/23 08/16/23 Score 1-3) hydrocodone 5 mg-acetaminophen 325 1 tablet PO BID PRN Pain (Scale 05/24/23 08/16/23 mg tablet Score 7-10) meloxicam submicronized 10 mg 10 mg PO DAILY 05/24/23 08/16/23 capsule fluticasone propionate 50 2 spray intranasal DAILY 08/16/23 08/16/23 mcg/actuation nasal spray,suspension (Flonase Allergy Relief) umeclidinium 62.5 mcg-vilanterol 1 inh inhalation DAILY 08/16/23 08/16/23 25 mcg/actuation powdr for inhalation (Anoro Ellipta) Allergies Allergy/AdvReac Type Severity Reaction Status Date / Time No Known Allergies Allergy Unknown Verified 10/10/23 10:50 Review of Systems Review of Systems: CONSTITUTIONAL: Denies fever, chills, or sweats. MUSCULOSKELETAL: See HPI. NEUROLOGIC: Denies HI, LOC, headache, dizziness, numbness, or weakness. All systems reviewed & are unremarkable except as noted in HPI and below PMFSH Past Medical History Medical History Anemia of chronic disease Anxiety Arthritis Cerebrovascular accident Chronic interstitial lung disease Chronic obstructive pulmonary disease Chronic respiratory failure with hypoxia and hypercapnia On 2 to 3 L nasal cannula. Clostridium difficile diarrhea Dementia Depression Diastolic congestive heart failure Emphysema of lung Exocrine pancreatic insufficiency Gastroesophageal reflux
[2023-10-10] MEDS: ACETAMINOPHEN 500 MG TABLET 1000 MG PO (11:40)
[2023-10-10] MEDS: traMADol HCL (*CRX) 25 MG TABLET PO (13:32)
== END 2023-10-10 14:43 ==
PROVIDERS: Emergency Provider Physician Assistant; PCP Internal Medicine
DX: S52.532A Colles' fracture of left radius, initial encounter for closed fracture (principal); S52.612A Displaced fracture of left ulna styloid process, initial encounter for closed fracture; F41.9 Anxiety disorder, unspecified; Z86.73 Personal history of transient ischemic attack (TIA), and cerebral infarction without residual deficits; M19.90 Unspecified osteoarthritis, unspecified site; J44.9 Chronic obstructive pulmonary disease, unspecified; F03.90 Unspecified dementia, unspecified severity, without behavioral disturbance, psychotic disturbance, mood disturbance, and anxiety; F32.A Depression, unspecified; E78.5 Hyperlipidemia, unspecified; I11.0 Hypertensive heart disease with heart failure; I50.9 Heart failure, unspecified; W18.30XA Fall on same level, unspecified, initial encounter; K21.9 Gastro-esophageal reflux disease without esophagitis
CPT/HCPCS: 29125; 73030; 73080; 73110; 96360; 99284; A4565; A9270; J7030

== ENCOUNTER 2023-11-08 08:41 | Outpatient (CLI) | payer MEDICARE, MEDICAID, SELFPAY ==
--- NOTE | ~2023-11-08 | XR_ITS ---
EXAMINATION: XR wrist LT min 3V DATE: 11/08/2023 09:06 INDICATION: Left wrist fracture follow-up TECHNIQUE: Posteroanterior, ulnar deviation, oblique, and lateral views of the left wrist were obtain ed. COMPARISON: 10/10/2023 FINDINGS: Again seen is an oblique, mildly comminuted intra-articular fracture at the lateral aspect of the distal radius. There has been mild widening at the fracture site since the comparison examinat ion. Sclerosis is forming at the fracture site. A splint has been applied. There is advanced osteoart hritis of the triscaphe and first carpometacarpal joints. IMPRESSION: 1. Intra-articular fracture at the lateral aspect of the distal radius with mild widening at the fra ture site since the comparison. Sclerosis is forming around the fracture site. Reviewed, dictated and finalized at location B. ICAL DEBRIEFER IMPRESSION: 1. Intra-articular fracture at the lateral aspect of the distal radius with mil d widening at the fracture site since the comparison. Sclerosis is forming arou nd the fracture site.
== END 2023-11-08 08:42 | disposition home or self-care (01) ==
LOC: ANHIMG 08:45
PROVIDERS: PCP Family Medicine; Visit Provider Orthopaedic Surgery
DX: S52.509D Unspecified fracture of the lower end of unspecified radius, subsequent encounter for closed fracture with routine healing (principal); S52.613D Displaced fracture of unspecified ulna styloid process, subsequent encounter for closed fracture with routine healing; X58.XXXD Exposure to other specified factors, subsequent encounter
CPT/HCPCS: 73110

== ENCOUNTER 2023-11-22 13:20 | Outpatient (CLI) | payer MEDICARE, MEDICAID, SELFPAY ==
--- NOTE | ~2023-11-22 | XR_ITS ---
EXAMINATION: XR wrist LT min 3V DATE: 11/22/2023 13:51 INDICATION: Unspecified fracture of the lower end of left radius. TECHNIQUE: 3 views of left wrist were obtained. COMPARISON: Left wrist radiographs 11/08/23, 10/10/23 FINDINGS: There is a comminuted fracture of distal radius. The main distal fracture fragment demonstr ates impaction and dorsal angulation. There is 7 degrees dorsal tilt of the distal articular surface. Periosteal new bone formation is noted. There is mild osteoarthritis of radiolunate joint. There is severe osteoarthritis of triscaphe joint and first carpometacarpal joint. IMPRESSION: 1. Healing comminuted fracture of distal radius. 2. Polyarticular osteoarthritis. Reviewed, dictated and finalized at location E. N CLERK
== END 2023-11-22 13:21 | disposition home or self-care (01) ==
PROVIDERS: PCP Family Medicine; Visit Provider Orthopaedic Surgery
DX: M19.032 Primary osteoarthritis, left wrist (principal); S52.502D Unspecified fracture of the lower end of left radius, subsequent encounter for closed fracture with routine healing; X58.XXXD Exposure to other specified factors, subsequent encounter
CPT/HCPCS: 73110

== ENCOUNTER 2023-11-26 17:28 | Emergency (ER) | payer MEDICARE, MEDICAID, SELFPAY ==
[2023-11-26] VITALS (8 sets, daily range): BP systolic 119–127; BP diastolic 62–107; PULSE 66–76; RESP 13–24; TEMP 37.1; O2SAT 94–97
--- NOTE | ~2023-11-26 | XR_ITS ---
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 HX COPD, WEARS HOME O2 Comparison: 09/01/2023, 04/03/2021; CT chest 08/30/2022 RESULT: Lines, tubes, and devices: None. Lungs and pleura: Peripheral reticular opacities. Streaky bibasilar atelectasis/scar. No focal conso lidation. Cardiomediastinal silhouette: Stable. Dilated central pulmonary arteries. Other: No acute osseous or upper abdominal finding. IMPRESSION: No acute cardiopulmonary process. Chronic interstitial lung disease. Dilated central pulmonary arteri es, as can be seen with pulmonary arterial hypertension. Reviewed, dictated and finalized at location K. T[employer] INSURANCE COMMISSIONER IMPRESSION: No acute cardiopulmonary process. Chronic interstitial lung disease. Dilated ce ntral pulmonary arteries, as can be seen with pulmonary arterial hypertension.
--- NOTE | 2023-11-26 17:42 | ECG_ITS ---
Measurements Intervals [place] Rate: 75 P: 62 VA: 157 QRS: 32 QRSD: 87 T: 69 QT: 373 QTc: 418 Interpretive Statements SINUS RHYTHM BASELINE ARTIFACT LOW QRS VOLTAGE IN PRECORDIAL LEADS [QRS DEFLECTION < 1.0 mV IN CHEST LEADS] BORDERLINE ECG COMPARED TO ECG 09/01/2023 16:33:33 NO sIGNIFICANT CHANGES Electronically Signed On 11-26-2023 18:30:29 DEVELOPING MACHINE TENDER by Mike Swan M.D.
--- NOTE | 2023-11-26 18:00 | ED.SOB ---
HPI - SOB/Dyspnea General Chief Complaint: Shortness of Breath/Dyspnea Stated Complaint: SOB Time Seen by Provider: 11/26/23 17:42 History of Present Illness HPI Narrative: 78-year-old male with history of COPD, CHF, hyperlipidemia hypertension who is chronically anticoagulated on Eliquis for prior PE reports for evaluation for productive cough for 5 weeks. Patient lives at [facility]. States she was shopping with her granddaughter today when her granddaughter was concerned the patient had pneumonia. They called EMS and patient was transported here. She states she has had a productive cough with clear mucus for the past 5 weeks. She wears 2 L nasal cannula baseline. She reports shortness of breath but this is unchanged from her baseline. She has not had have you oxygen requirements. States she has been taking her medications daily as prescribed. Denies lower extremity edema, chest pain, fever, nausea vomiting, abdominal pain, dysuria or hematuria. Related Data Home Medications Medication Instructions Recorded Confirmed acetaminophen 650 mg 650 mg PO Q6H PRN Mild Pain (Scale 10/09/21 11/24/23 tablet,extended release Score 1-4) benzonatate 200 mg capsule 200 mg PO Q8H PRN Cough 10/09/21 11/24/23 carvedilol 3.125 mg tablet (Coreg) 3.125 mg PO BID 10/09/21 11/24/23 magnesium hydroxide 400 mg/5 mL 400 mg PO Q72H PRN Constipation 10/09/21 11/24/23 oral suspension (Milk of Magnesia) magnesium oxide 400 mg (241.3 mg 400 mg PO DAILY 10/09/21 11/24/23 magnesium) tablet ondansetron 4 mg disintegrating 4 mg PO Q6H PRN nausea and 10/09/21 11/24/23 tablet vomitting trazodone 300 mg tablet 150 mg PO HS 10/09/21 11/24/23 apixaban 2.5 mg tablet (Eliquis) 2.5 mg PO BID 01/12/23 11/24/23 bupropion HCl 75 mg tablet 75 mg PO DAILY 01/12/23 11/24/23 cholecalciferol (vitamin D3) 1,250 1,000 mcg PO DAILY 01/12/23 11/24/23 mcg (50,000 unit) tablet furosemide 40 mg tablet 40 mg PO QAM 01/12/23 11/24/23 guaifenesin 600 mg tablet, 600 mg PO BID 01/12/23 11/24/23 extended release 12 hr ipratropium 0.5 mg-albuterol 3 mg 3 ml inhalation QID PRN Congestion 01/12/23 11/24/23 (2.5 mg base)/3 mL nebulization soln lidocaine 4 % topical cream 1 applic topical QID PRN Pain 01/12/23 11/24/23 (Scale Score 1-3) cusrbp-pfxxgeky-mxcmozn 2 cap PO AC 01/12/23 11/24/23 24,000-76,000-120,000 unit capsule,delayed rel (Creon) melatonin 5 mg/15 mL oral liquid 5 mg PO HS 01/12/23 11/24/23 pantoprazole 40 mg tablet,delayed 40 mg PO QAM 01/12/23 11/24/23 release (Protonix) sodium phosphates 19 gram-7 118 ml RECTAL ONCE PRN Constipation 01/12/23 11/24/23 gram/118 mL enema (Fleet Enema) diclofenac sodium 1 % topical gel 2 g topical QID PRN Pain (Scale 05/24/23 11/24/23 Score 1-3) hydrocodone 5 mg-acetaminophen 325 1 tablet PO BID PRN Pain (Scale 05/24/23 11/24/23 mg tablet Score 7-10) meloxicam submicronized 10 mg 10 mg PO DAILY 05/24/23 11/24/23 capsule fluticasone propionate 50 2 spray intranasal DAILY 08/16/23 11/24/23 mcg/actuation nasal spray,suspension (Flonase Allergy Relief) umeclidinium 62.5 mcg-vilanterol 1 inh inhalation DAILY 08/16/23 11/24/23 25 mcg/actuation powdr for inhalation (Anoro Ellipta) Allergies Allergy/AdvReac Type Severity Reaction Status Date / Time No Known Allergies Allergy Unknown Verified 11/26/23 17:43 Review of Systems Review of Systems: CONSTITUTIONAL: Denies fever, chills, or sweats. EYES: Denies visual changes, redness, or discharge. ENT: Denies rhinorrhea, congestion, sore throat, or otalgia. CARDIOVASCULAR: Denies chest pain, palpitations, or edema. RESPIRATORY: See HPI GASTROINTESTINAL: Denies abdominal pain, nausea, vomiting, or diarrhea. GENITOURINARY: Denies dysuria or hematuria. SKIN: Denies rash or itching. MUSCULOSKELETAL: Denies back pain, joint pain, or myalgia. NEUROLOGIC: Denies headache, numbness, or weakness. PSYCHIATRIC: Denies anxiety or depression.
[2023-11-26] MEDS: methylPREDNISolone SOD SUCC 125 MG VIAL IV PUSH (18:07)
[2023-11-26] MEDS: ALBUTEROL SULFATE NEB 2.5 MG/3 ML INH INHALATION (18:13)
[2023-11-26] MEDS: IPRATROPIUM 0.5 MG/ALBUTEROL SULFATE 2.5 MG AMPUL.NEB 3 ML INHALATION (18:14)
[2023-11-26 18:38] LABS: Basophils Percent Auto 0.2 % (0.2-1.2); Eosinophils Absolute Auto 0.2 K/mm3 (0-0.3); Eosinophils Percent Auto 1.5 % (0-4.4); Hematocrit 32.9 % (37.0-47.0); Hemoglobin 10.2 g/dL (12.0-15.0); Immature Granulocyte Absolute 0.13 K/mm3 (0.00-0.031); Lymphocytes Absolute Auto 2.84 K/mm3 (0.9-3.2); Lymphocytes Percent Auto 20.9 % (18.3-44.2); Mean Corpuscular Hemoglobin 30.8 pg (26-34); Mean Corpuscular Volume 99.4 fl (80-100); Mean Platelet Volume 11.3 fl (7.4-10.4); Monocytes Absolute Auto 1.2 K/mm3 (0.1-0.6); Monocytes Percent Auto 9.1 % (2.6-8.5); Neutrophils Absolute Auto 9.2 K/mm3 (1.3-6.7); Neutrophils Percent Auto 67.3 % (45.5-73.1); Platelet Count Result 256 k/mm3 (150-375); Red Blood Count 3.31 M/mm3 (4.2-5.4); Red Cell Distribution Width 13.2 % (11.5-14.5); White Blood Count 13.6 K/mm3 (4.5-10.0)
[2023-11-26 18:47] LABS: Alanine Aminotransferase 13 U/L (6-35); Albumin Level 3.9 g/dL (3.5-5.1); Alkaline Phosphatase 65 U/L (38-126); Anion Gap 5 mmol/L (8-16); Aspartate Amino Transferase 21 U/L (14-36); Bilirubin,Total 0.3 mg/dL (0.2-1.3); Blood Urea Nitrogen 29 mg/dL (7-17); Calcium 8.6 mg/dL (8.4-10.2); Carbon Dioxide 31 mmol/L (22-30); Chloride 102 mmol/L (98-107); Estimated CRCL calculation 29 ml/min; Estimated Glomerular Filt Rate 36; Glucose 104 mg/dL (65-110); Potassium 4.7 mmol/L (3.4-5.0); Sodium 138 mmol/L (137-145)
[2023-11-26] MEDS: SODIUM CHLORIDE 0.9% IV 1,000 ML 500 ML IV CONT (18:58)
[2023-11-26 19:09] LABS: Appearance Urine Cloudy (Clear); Bacteria Urine 4+ /hpf; Bilirubin Urine Negative (Negative); Blood Urine Negative (Negative); Color Urine Yellow (Yellow); Glucose Urine UA Negative (Negative); Ketones Urine Trace mg/dL (Negative); Leukocyte Esterase Ur 2+ LEU/UL (Negative); Need Manual Microscopic Reviewed; Nitrate Urine Negative (Negative); Protein Urine Negative (Negative); RBC Urine 21-50 /hpf (0-2); Specific Grav Ur 1.021 (1.001-1.035); Squamous Epithelial Cell Urine Occasional /hpf (Few); Urobilinogen Urine 0.2 mg/dL (<2.0); WBC Urine 21-50 /hpf; pH Urine 5.5 (5.0-9.0)
[2023-11-26 19:10] LABS: Add Urine Microscopic? YES
[2023-11-26 19:14] LABS: Influenza A QL RT-PCR Negative (Negative); Influenza B QL RT-PCR Negative (Negative); RSV RNA, RT-PCR Negative (Negative); SARS-CoV-2 RNA PCR Negative (Negative)
--- NOTE | 2023-11-26 19:26 | PC.NURSE ---
Bedside report obtained from JENNIFER Bell. Assumed care at this time. Pt resting quietly per cart in nad at this time. Asking for her phone to be charged, done for pt. Pt has no c/o's.
[2023-11-26] MEDS: CEFDINIR 300 MG CAPSULE PO (20:59)
== END 2023-11-26 21:10 ==
PROVIDERS: Student in an Organized Health Care Education/Training Program; Emergency Provider Physician Assistant; PCP Family Medicine
DX: J43.9 Emphysema, unspecified (principal); N30.01 Acute cystitis with hematuria; Z20.822 Contact with and (suspected) exposure to COVID-19; F03.90 Unspecified dementia, unspecified severity, without behavioral disturbance, psychotic disturbance, mood disturbance, and anxiety; I50.30 Unspecified diastolic (congestive) heart failure; I11.0 Hypertensive heart disease with heart failure; I73.9 Peripheral vascular disease, unspecified; I27.21 Secondary pulmonary arterial hypertension; J96.11 Chronic respiratory failure with hypoxia; J96.12 Chronic respiratory failure with hypercapnia; J84.9 Interstitial pulmonary disease, unspecified; E78.5 Hyperlipidemia, unspecified; D63.8 Anemia in other chronic diseases classified elsewhere; K86.81 Exocrine pancreatic insufficiency; N32.81 Overactive bladder; R73.03 Prediabetes; K21.9 Gastro-esophageal reflux disease without esophagitis; M19.90 Unspecified osteoarthritis, unspecified site; M81.0 Age-related osteoporosis without current pathological fracture; F41.9 Anxiety disorder, unspecified; Z98.1 Arthrodesis status; Z87.01 Personal history of pneumonia (recurrent); Z86.16 Personal history of COVID-19; Z86.73 Personal history of transient ischemic attack (TIA), and cerebral infarction without residual deficits; Z86.711 Personal history of pulmonary embolism; Z87.11 Personal history of peptic ulcer disease; Z87.891 Personal history of nicotine dependence; Z90.49 Acquired absence of other specified parts of digestive tract; Z90.710 Acquired absence of both cervix and uterus; Z79.01 Long term (current) use of anticoagulants; R94.31 Abnormal electrocardiogram [ECG] [EKG]
CPT/HCPCS: 36415; 71046; 80053; 81001; 85025; 87077; 87086; 87186; 87637; 93005; 94640; 96361; 96374; 99284; A9270; J2930; J7030

== ENCOUNTER 2023-12-23 12:06 | Emergency (ER) | payer MEDICARE, MEDICAID, SELFPAY ==
[2023-12-23] VITALS (7 sets, daily range): BP systolic 137–156; BP diastolic 62–97; PULSE 59–68; RESP 13–19; TEMP 36.6; O2SAT 97–100
--- NOTE | ~2023-12-23 | XR_ITS ---
XR chest 1V portable 12/23/2023 12:39 Indication: Dyspnea. Covid positive. Procedure: AP portable chest Comparison: Comparison to multiple prior studies sequentially, with oldest reviewed study dated 05/2022. Findings: Stable extensive bilateral interstitial infiltrates, likely reflecting chronic interstitial fibrosis. No significant interval change. Elevated right diaphragm. No significant effusion. No pneu mothorax. Impression: 1: Stable extensive chronic interstitial lung disease, likely reflecting moderate fibrosis. Reviewed, dictated and finalized at location A. Impression: 1: Stable extensive chronic interstitial lung disease, likely reflecting modera te fibrosis.
--- NOTE | 2023-12-23 12:21 | ED.CHESTPAIN ---
HPI - Chest Pain General Chief Complaint: Chest Pain Stated Complaint: cp Time Seen by Provider: 12/23/23 12:13 Source: patient and EMS Mode of arrival: EMS Limitations: no limitations History of Present Illness HPI narrative: 78 years old white female came from senior care by ambulance with sudden onset of retrosternal sharp stabbing pain started 1 hour after lunch. 03/11, became 10/11 after [place]. Patient denies any fever, chills, nausea, vomiting, shortness of breath or back pain or radiation of pain. History of hyperlipidemia, COPD, on 2 L oxygen all the time, and GERD. Patient denies history of abdominal surgery or heart attack or stroke. Patient is not taking aspirin. Currently patient main complaint is general weakness which has been going for a while. Patient started on antibiotic and steroid for lung infection few days ago used to have productive cough now dry cough every now and then. Related Data Home Medications Medication Instructions Recorded Confirmed acetaminophen 650 mg 650 mg PO Q6H PRN Mild Pain (Scale 10/09/21 12/22/23 tablet,extended release Score 1-4) benzonatate 200 mg capsule 200 mg PO Q8H PRN Cough 10/09/21 12/22/23 carvedilol 3.125 mg tablet (Coreg) 3.125 mg PO BID 10/09/21 12/22/23 magnesium hydroxide 400 mg/5 mL 400 mg PO Q72H PRN Constipation 10/09/21 12/22/23 oral suspension (Milk of Magnesia) magnesium oxide 400 mg (241.3 mg 400 mg PO DAILY 10/09/21 12/22/23 magnesium) tablet ondansetron 4 mg disintegrating 4 mg PO Q6H PRN nausea and 10/09/21 12/22/23 tablet vomitting trazodone 300 mg tablet 150 mg PO HS 10/09/21 12/22/23 apixaban 2.5 mg tablet (Eliquis) 2.5 mg PO BID 01/12/23 12/22/23 bupropion HCl 75 mg tablet 75 mg PO DAILY 01/12/23 12/22/23 cholecalciferol (vitamin D3) 1,250 1,000 mcg PO DAILY 01/12/23 12/22/23 mcg (50,000 unit) tablet furosemide 40 mg tablet 40 mg PO QAM 01/12/23 12/22/23 guaifenesin 600 mg tablet, 600 mg PO BID 01/12/23 12/22/23 extended release 12 hr ipratropium 0.5 mg-albuterol 3 mg 3 ml inhalation QID PRN Congestion 01/12/23 12/22/23 (2.5 mg base)/3 mL nebulization soln lidocaine 4 % topical cream 1 applic topical QID PRN Pain 01/12/23 12/22/23 (Scale Score 1-3) uifgbv-dvpjdfjj-ihzrbgt 2 cap PO AC 01/12/23 12/22/23 24,000-76,000-120,000 unit capsule,delayed rel (Creon) pantoprazole 40 mg tablet,delayed 40 mg PO QAM 01/12/23 12/22/23 release (Protonix) sodium phosphates 19 gram-7 118 ml RECTAL ONCE PRN Constipation 01/12/23 12/22/23 gram/118 mL enema (Fleet Enema) hydrocodone 5 mg-acetaminophen 325 1 tablet PO BID PRN Pain (Scale 05/24/23 12/22/23 mg tablet Score 7-10) meloxicam submicronized 10 mg 10 mg PO DAILY 05/24/23 12/22/23 capsule fluticasone propionate 50 2 spray intranasal DAILY 08/16/23 12/22/23 mcg/actuation nasal spray,suspension (Flonase Allergy Relief) umeclidinium 62.5 mcg-vilanterol 1 inh inhalation DAILY 08/16/23 12/22/23 25 mcg/actuation powdr for inhalation (Anoro Ellipta) Allergies Allergy/AdvReac Type Severity Reaction Status Date / Time No Known Allergies Allergy Unknown Verified 12/22/23 13:52 Review of Systems Review of Systems: All systems reviewed & are unremarkable except as noted in HPI and below PMFSH Past Medical History Medical History Anemia of chronic disease Anxiety Arthritis Cerebrovascular accident Chronic interstitial lung disease Chronic obstructive pulmonary disease Chronic respiratory failure with hypoxia and hypercapnia On 2 to 3 L nasal cannula. Clostridium difficile diarrhea Dementia Depression Diastolic congestive heart failure Emphysema of lung Exocrine pancreatic insufficiency Gastroesophageal reflux disease GI bleed Herniated disc History of peptic ulcer Hyperlipidemia Hypertension Migraine Osteoporosis Overactive bladder Pancreatitis Peripheral vascular disease Pneumonia due to 2019-nCoV (06/02
--- NOTE | 2023-12-23 12:23 | ECG_ITS ---
Measurements Intervals [place] Rate: 60 P: 148 WV: 169 QRS: 177 QRSD: 90 T: 151 QT: 398 QTc: 401 Interpretive Statements SINUS RHYTHM ARM LEADS REVERSED LOW VOLTAGE IN PRECORDIAL LEADS ATYPICAL ECG COMPARED TO ECG 11/26/2023 17:50:32 NO SIGNIFICANT CHANGES Electronically Signed On 12-23-2023 13:37:44 CDT by Kole Carey D.O.
[2023-12-23 12:46] LABS: Basophils Percent Auto 0.3 % (0.2-1.2); Eosinophils Absolute Auto 0.1 K/mm3 (0-0.3); Eosinophils Percent Auto 0.8 % (0-4.4); Hematocrit 34.2 % (37.0-47.0); Hemoglobin 10.6 g/dL (12.0-15.0); Lymphocytes Absolute Auto 1.18 K/mm3 (0.9-3.2); Lymphocytes Percent Auto 11.3 % (18.3-44.2); Mean Corpuscular Hemoglobin 30.7 pg (26-34); Mean Corpuscular Volume 99.1 fl (80-100); Mean Platelet Volume 11.7 fl (7.4-10.4); Monocytes Absolute Auto 0.3 K/mm3 (0.1-0.6); Monocytes Percent Auto 2.9 % (2.6-8.5); Neutrophils Absolute Auto 8.8 K/mm3 (1.3-6.7); Neutrophils Percent Auto 83.7 % (45.5-73.1); Platelet Count Result 202 k/mm3 (150-375); Red Blood Count 3.45 M/mm3 (4.2-5.4); Red Cell Distribution Width 12.8 % (11.5-14.5); White Blood Count 10.5 K/mm3 (4.5-10.0)
[2023-12-23 12:56] LABS: Alanine Aminotransferase 20 U/L (6-35); Albumin Level 4.1 g/dL (3.5-5.1); Alkaline Phosphatase 57 U/L (38-126); Anion Gap 3 mmol/L (8-16); Aspartate Amino Transferase 37 U/L (14-36); Bilirubin,Total 0.5 mg/dL (0.2-1.3); Blood Urea Nitrogen 16 mg/dL (7-17); Calcium 8.8 mg/dL (8.4-10.2); Carbon Dioxide 37 mmol/L (22-30); Chloride 94 mmol/L (98-107); Estimated CRCL calculation 43 ml/min; Estimated Glomerular Filt Rate 60; Glucose 147 mg/dL (65-110); Lipase 71 U/L (23-300); Potassium 4.4 mmol/L (3.4-5.0); Sodium 134 mmol/L (137-145)
[2023-12-23 13:07] LABS: NT Pro B Type Natriuretic Pept 890 pg/mL (19.9-100); Troponin I < 0.012 ng/mL (0.000-0.034)
[2023-12-23 13:14] LABS: INR 1.3; Prothrombin Time 16.9 Seconds (11.1-14.7)
[2023-12-23 13:15] LABS: Partial Thromboplastin Time 49.4 Seconds (22.3-36.8)
[2023-12-23 13:36] LABS: Influenza A QL RT-PCR Negative (Negative); Influenza B QL RT-PCR Negative (Negative); RSV RNA, RT-PCR Negative (Negative); SARS-CoV-2 RNA PCR Negative (Negative)
[2023-12-23 14:02] LABS: Alveolar/Arterial O2 Gradient 36.5 mmHg; Fractional Inspired Oxygen 28 %; Oxygen Content ABG 15.6 %vol (16.0-22.0); Oxygen Saturation ABG 96.5 % (95.0-100.0); Oxyhemoglobin 95.6 % THb (90.0-100.0); PO2 ABG 89.6 mmHg (80.0-100.0); Total Hemoglobin 11.5 g/dL (12.0-18.0)
[2023-12-23 14:03] LABS: Device NASAL CANNULA; Modified Allen's Test Pass; PCO2 ABG 62.3 mmHg (35.0-45.0); Site Drawn RIGHT RADIAL
[2023-12-23 14:53] LABS: Bacteria Urine 4+ /hpf; Need Manual Microscopic Reviewed; Non Pathogenic Casts 0-2; RBC Urine 0-2 /hpf (0-2); Squamous Epithelial Cell Urine None Seen /hpf (Few); WBC Urine 0-5 /hpf (0-3)
[2023-12-23 14:58] LABS: Appearance Urine Clear (Clear); Color Urine Yellow (Yellow)
[2023-12-23 14:59] LABS: Bilirubin Urine Negative (Negative); Blood Urine Negative (Negative); Glucose Urine UA Negative (Negative); Ketones Urine Negative (Negative); Leukocyte Esterase Ur Trace LEU/UL (Negative); Nitrate Urine Negative (Negative); Protein Urine Negative (Negative); Urobilinogen Urine 0.2 mg/dL (<2.0); pH Urine 5.5 (5.0-9.0)
--- NOTE | 2023-12-23 15:13 | ECG_ITS ---
Measurements Intervals [place] Rate: 64 P: 23 WI: 159 QRS: 2 QRSD: 84 T: 30 QT: 398 QTc: 412 Interpretive Statements SINUS RHYTHM DELAYED PRECORDIAL R/S TRANSITION LOW QRS VOLTAGE IN PRECORDIAL LEADS BORDERLINE ECG COMPARED TO ECG 12/23/2023 12:23:47 NO SIGNIFICANT CHANGES Electronically Signed On 12-23-2023 19:14:40 CDT by oKle Carey D.O.
[2023-12-23 15:23] LABS: Add Urine Microscopic? YES
[2023-12-23 15:51] LABS: Troponin I < 0.012 ng/mL (0.000-0.034)
[2023-12-23] MEDS: HYDROcodone/acetaminophen (*CRX) 5-325 MG TABLET 1 TAB PO (16:21)
== END 2023-12-23 17:27 ==
PROVIDERS: Emergency Provider Emergency Medicine; PCP Family Medicine
DX: R07.89 Other chest pain (principal); Z20.822 Contact with and (suspected) exposure to COVID-19; F03.90 Unspecified dementia, unspecified severity, without behavioral disturbance, psychotic disturbance, mood disturbance, and anxiety; J43.9 Emphysema, unspecified; Z99.81 Dependence on supplemental oxygen; J96.11 Chronic respiratory failure with hypoxia; J96.12 Chronic respiratory failure with hypercapnia; I50.30 Unspecified diastolic (congestive) heart failure; I11.0 Hypertensive heart disease with heart failure; I27.21 Secondary pulmonary arterial hypertension; I73.9 Peripheral vascular disease, unspecified; E78.5 Hyperlipidemia, unspecified; D63.8 Anemia in other chronic diseases classified elsewhere; K21.9 Gastro-esophageal reflux disease without esophagitis; M19.90 Unspecified osteoarthritis, unspecified site; F41.9 Anxiety disorder, unspecified; F32.A Depression, unspecified; K86.81 Exocrine pancreatic insufficiency; M81.0 Age-related osteoporosis without current pathological fracture; Z98.1 Arthrodesis status; Z87.891 Personal history of nicotine dependence; Z87.01 Personal history of pneumonia (recurrent); Z86.16 Personal history of COVID-19; Z86.711 Personal history of pulmonary embolism; Z90.49 Acquired absence of other specified parts of digestive tract; Z90.710 Acquired absence of both cervix and uterus; Z79.01 Long term (current) use of anticoagulants
CPT/HCPCS: 36415; 36600; 71045; 80053; 81001; 82805; 83690; 83880; 84484; 85025; 85610; 85730; 87637; 93005; 99284; A9270

== ENCOUNTER 2024-04-21 14:25 | Observation (INO) | payer MEDICARE, MEDICAID, SELFPAY ==
[2024-04-21] VITALS (9 sets, daily range): BP systolic 102–158; BP diastolic 62–86; PULSE 66–82; RESP 14–18; TEMP 36.6–36.9; O2SAT 99–100
--- NOTE | ~2024-04-21 | XR_ITS ---
EXAMINATION: XR chest 2V DATE: 04/21/2024 15:54 INDICATION: Altered mental status TECHNIQUE: frontal and lateral views of the chest were obtained. COMPARISON: Chest radiograph dated 12/23/[address] dated 08/30/2022 FINDINGS: Chronic elevation the right hemidiaphragm. Chronic interstitial lung disease with no significant bain ge in peripheral reticular opacities most prominent at the right upper and left midlung zones. Unchan ged hazy opacities the left lower lung along the lateral margin of the mildly enlarged heart consiste nt with prominent paracardial fat pad. No new airspace opacities, pleural effusion or pneumothorax. C holecystectomy clips in right upper quadrant. Plain screw fixation for lower cervical anterior spinal fusion. Severe bilateral glenohumeral osteoarthritis. IMPRESSION: 1. Unable appearance of chronic elevated right hemidiaphragm and chronic interstitial lung disease mo st prominent at the periphery of the right upper and left midlung zones. 2. Cardiomegaly. Reviewed, dictated and finalized at location A. IMPRESSION: 1. Unable appearance of chronic elevated right hemidiaphragm and chronic inters titial lung disease most prominent at the periphery of the right upper and left midlung zones. 2. Cardiomegaly.
[2024-04-21 14:53] LABS: Basophils Absolute Auto 0.1 K/mm3 (0.0-0.1); Basophils Percent Auto 0.4 % (0.2-1.2); Eosinophils Absolute Auto 0.2 K/mm3 (0-0.3); Eosinophils Percent Auto 1.1 % (0-4.4); Hematocrit 35.4 % (37.0-47.0); Hemoglobin 11.9 g/dL (12.0-15.0); Immature Granulocyte Absolute 0.06 K/mm3 (0.00-0.031); Immature Granulocyte Percent A 0.4 % (0-0.5); Lymphocytes Absolute Auto 2.08 K/mm3 (0.9-3.2); Lymphocytes Percent Auto 13.8 % (18.3-44.2); Mean Corpuscular HGB Conc 33.6 g/dl (32-36); Mean Corpuscular Volume 92.2 fl (80-100); Mean Platelet Volume 11.9 fl (7.4-10.4); Monocytes Absolute Auto 1.1 K/mm3 (0.1-0.6); Monocytes Percent Auto 7.4 % (2.6-8.5); Neutrophils Absolute Auto 11.6 K/mm3 (1.3-6.7); Neutrophils Percent Auto 76.9 % (45.5-73.1); Platelet Count Result 251 k/mm3 (150-375); Red Blood Count 3.84 M/mm3 (4.2-5.4); Red Cell Distribution Width 13.2 % (11.5-14.5); White Blood Count 15.1 K/mm3 (4.5-10.0)
[2024-04-21 15:05] LABS: INR 1.3; Prothrombin Time 16.4 Seconds (11.1-14.7)
[2024-04-21 15:10] LABS: Alanine Aminotransferase 21 U/L (6-35); Albumin Level 4.3 g/dL (3.5-5.1); Alkaline Phosphatase 40 U/L (38-126); Anion Gap 12 mmol/L (4-12); Aspartate Amino Transferase 31 U/L (14-36); Bilirubin,Total 0.7 mg/dL (0.2-1.3); Blood Urea Nitrogen 26 mg/dL (7-17); Carbon Dioxide 27 mmol/L (22-30); Chloride 92 mmol/L (98-107); Estimated CRCL calculation 27 ml/min; Estimated Glomerular Filt Rate 33; Glucose 147 mg/dL (65-110); Potassium 4.3 mmol/L (3.4-5.0); Sodium 131 mmol/L (137-145)
[2024-04-21] MEDS: SODIUM CHLORIDE 0.9% IV 1,000 ML 999 ML IV CONT (15:38)
[2024-04-21 15:43] LABS: Appearance Urine Cloudy (Clear); Bacteria Urine 4+ /hpf; Bilirubin Urine Negative (Negative); Blood Urine Negative (Negative); Color Urine Yellow (Yellow); Glucose Urine UA Negative (Negative); Ketones Urine 2+ mg/dL (Negative); Leukocyte Esterase Ur 2+ LEU/UL (Negative); Need Manual Microscopic Reviewed; Nitrate Urine Negative (Negative); Non Pathogenic Casts >20; Protein Urine 1+ mg/dL (Negative); Specific Grav Ur 1.016 (1.001-1.035); Squamous Epithelial Cell Urine Few /hpf (Few); WBC Urine 51-100 /hpf (0-3); pH Urine 5.5 (5.0-9.0)
[2024-04-21 15:45] LABS: Add Urine Microscopic? YES
--- NOTE | 2024-04-21 16:09 | ED.AMS ---
HPI - Altered Mental Status General Chief Complaint: Altered Mental Status Stated Complaint: AMS Time Seen by Provider: 04/21/24 14:28 History of Present Illness HPI narrative: Patient is an 79-year-old female who presents ER with altered mental status. Unsure how different she is from baseline given she has history of dementia. Patient reports dysuria but has no other complaints. Related Data Home Medications Medication Instructions Recorded Confirmed acetaminophen 650 mg 650 mg PO Q6H PRN Mild Pain (Scale 10/09/21 12/22/23 tablet,extended release Score 1-4) benzonatate 200 mg capsule 200 mg PO Q8H PRN Cough 10/09/21 12/22/23 carvedilol 3.125 mg tablet (Coreg) 3.125 mg PO BID 10/09/21 12/22/23 magnesium hydroxide 400 mg/5 mL 400 mg PO Q72H PRN Constipation 10/09/21 12/22/23 oral suspension (Milk of Magnesia) magnesium oxide 400 mg (241.3 mg 400 mg PO DAILY 10/09/21 12/22/23 magnesium) tablet ondansetron 4 mg disintegrating 4 mg PO Q6H PRN nausea and 10/09/21 12/22/23 tablet vomitting trazodone 300 mg tablet 150 mg PO HS 10/09/21 12/22/23 apixaban 2.5 mg tablet (Eliquis) 2.5 mg PO BID 01/12/23 12/22/23 bupropion HCl 75 mg tablet 75 mg PO DAILY 01/12/23 12/22/23 cholecalciferol (vitamin D3) 1,250 1,000 mcg PO DAILY 01/12/23 12/22/23 mcg (50,000 unit) tablet furosemide 40 mg tablet 40 mg PO QAM 01/12/23 12/22/23 guaifenesin 600 mg tablet, 600 mg PO BID 01/12/23 12/22/23 extended release 12 hr lidocaine 4 % topical cream 1 applic topical QID PRN Pain 01/12/23 12/22/23 (Scale Score 1-3) tqoaop-yehjuesc-syoqelo 2 cap PO AC 01/12/23 12/22/23 24,000-76,000-120,000 unit capsule,delayed rel (Creon) pantoprazole 40 mg tablet,delayed 40 mg PO QAM 01/12/23 12/22/23 release (Protonix) sodium phosphates 19 gram-7 118 ml RECTAL ONCE PRN Constipation 01/12/23 12/22/23 gram/118 mL enema (Fleet Enema) hydrocodone 5 mg-acetaminophen 325 1 tablet PO BID PRN Pain (Scale 05/24/23 12/22/23 mg tablet Score 7-10) meloxicam submicronized 10 mg 10 mg PO DAILY 05/24/23 12/22/23 capsule fluticasone propionate 50 2 spray intranasal DAILY 08/16/23 12/22/23 mcg/actuation nasal spray,suspension (Flonase Allergy Relief) umeclidinium 62.5 mcg-vilanterol 1 inh inhalation DAILY 08/16/23 12/22/23 25 mcg/actuation powdr for inhalation (Anoro Ellipta) albuterol sulfate 2.5 mg/3 mL 2.5 mg inhalation QID PRN 04/18/24 04/18/24 (0.083 %) solution for nebulization azelastine 137 mcg (0.1 %) nasal intranasal 04/18/24 spray cholecalciferol (vitamin D3) 25 25 mcg PO DAILY 04/18/24 mcg (1,000 unit) capsule famotidine 20 mg tablet 20 mg PO BID 04/18/24 omega 8-pjd-cdm-fish oil 1,000 mg 1 cap PO DAILY 04/18/24 (120 mg-180 mg) capsule (Fish Oil) Allergies Allergy/AdvReac Type Severity Reaction Status Date / Time No Known Allergies Allergy Unknown Verified 04/18/24 11:08 Review of Systems Review of Systems: ROS unobtainable: Yes unobtainable due to mental status PMFSH Past Medical History Medical History Anemia of chronic disease Anxiety Arthritis Cerebrovascular accident Chronic interstitial lung disease Chronic obstructive pulmonary disease Chronic respiratory failure with hypoxia and hypercapnia On 2 to 3 L nasal cannula. Clostridium difficile diarrhea Dementia Depression Diastolic congestive heart failure Emphysema of lung Exocrine pancreatic insufficiency Gastroesophageal reflux disease GI bleed Herniated disc History of peptic ulcer Hyperlipidemia Hypertension Migraine Osteoporosis Overactive bladder Pancreatitis Peripheral vascular disease Pneumonia due to 2019-nCoV (06/11/21) Prediabetes Pulmonary arterial hypertension Pulmonary embolism (06/2021) Surgical History Surgical History History of bladder suspension procedure History of cardiac cath History of cholecystectomy
--- NOTE | 2024-04-21 17:43 | ADMGEN ---
This patient, Gabbi Champagne, was admitted to Medical Room 345-. Patient/family oriented to hospital policies and general routines including ID bracelet, bed and alarms, visiting hours, pain management, procedures, bathroom and other care routines, personal items, smoking policy, room service/diet, and visiting hours. Information on how to activate the Rapid Response Team has been discussed. Patient/Family are encouraged to report perceived risks to care and to ask questions if they do not understand what they are told or what they should do.
--- NOTE | 2024-04-21 19:25 | PM.IMHP ---
H&P: HPI History of Present Illness Date/Time: 04/21/24 19:25 Chief Complaint: AMS, Incontinence Narrative: 79 y/o F presents here with confusion and incontinence with PMH of Anemia of chronic disease, CVA, chronic interstitial lung disease, COPD on 2L-3L at baseline, dementia, heart failure, GERD, peptic ulcer, HLD, HTN, overactive bladder, PVD, prediabetic, and PE (2020). The patient presents here from [facility] via EMS for further evaluation of new confusion and incontinence. NH reported to EMS that patient is normally A&O x3, however has been A&O x2 today. Patient is also newly incontinent and no longer ambulatory. the patient is currently reporting dysuria. Denying fever, chills, body aches, abdominal pain, hematuria, urinary frequency, or malodorous urine. Patient currently poor historian. Initial VS at presentation: 98.5? F, HR 82, RR 17, 102/75, and 99% on 2L NC (baseline requirement). ED workup showed: WBC 15.1, hemoglobin 11.9, INR 1.3, PT 16.4, PTT 49, sodium 131, creatinine 1.5 and GFR 33 (previously 0.9 and GFR 60 on 12/23/2023), and UA consistent with UTI. CXR showed unchanged appearance of chronic elevated right hemidiaphragm and chronic eye LD most prominent at the periphery of the right upper and left mid lung zones, cardiomegaly. Review of Systems Review of Systems: ROS unobtainable: Yes unobtainable due to mental status ( limited, A&O x2) [facility] Past Medical History Medical History Anemia of chronic disease Anxiety Arthritis Cerebrovascular accident Chronic interstitial lung disease Chronic obstructive pulmonary disease Chronic respiratory failure with hypoxia and hypercapnia On 2 to 3 L nasal cannula. Clostridium difficile diarrhea Dementia Depression Diastolic congestive heart failure Emphysema of lung Exocrine pancreatic insufficiency Gastroesophageal reflux disease GI bleed Herniated disc History of peptic ulcer Hyperlipidemia Hypertension Migraine Osteoporosis Overactive bladder Pancreatitis Peripheral vascular disease Pneumonia due to 2019-nCoV (06/11/21) Prediabetes Pulmonary arterial hypertension Pulmonary embolism (06/2021) Surgical History Surgical History History of bladder suspension procedure History of cardiac cath History of cholecystectomy History of hysterectomy History of lumbar fusion x2 History of neck surgery (2001) History of tonsillectomy History of tubal ligation History of vascular surgery Left lower extremity. Family History Family History Father Family history of Parkinson's disease Sibling Patient's brother is in good health Mother Family history of chronic obstructive pulmonary disease Family history of pancreatic cancer Social History Social History Social History: Surrogate decision maker: Stefanie Finney, granddaughter. Code status: Full code. Smoking packs per day: 1 Smoking cigarettes per day: 20.0 Years smoked: 30 Smoking pack-years: 30.00 Smoking status: Former smoker Second hand tobacco smoke exposure: Yes Alcohol intake: never Substance use: never Do You Feel Safe in your Home?: Yes Lack of Transportation: No Lack of Food: Never True Current Housing: I Have Housing Concerned About Future Housing: No Difficulty Paying Gas/Electric Bills: No Difficulty Paying for Meds: No Currently Unemployed: No Education: High School Diploma/GED Difficulty w/ Childcare or Family Care: No Living arrangements: skilled nursing Additional living arrangements comments: Resident of [facility]. Additional occupation/education comments: Retired. Spiritual care concerns: No Meds Home Medications and Allergies Home Medications Medication In
[2024-04-21] MEDS: carvediloL 3.125 MG TABLET PO (21:41)
[2024-04-21] MEDS: PREGABALIN (*CRX) 75 MG CAPSULE 150 MG PO (21:41)
[2024-04-21] MEDS: guaiFENesin 12 HR 600 MG TABCR PO (21:41)
[2024-04-21] MEDS: APIXABAN 2.5 MG TABLET PO (21:41)
[2024-04-21] MEDS: MEROPENEM 1 GM/NS 100 ML 1 GM/100 ML BAG IVPB (21:42)
[2024-04-22] VITALS (7 sets, daily range): BP systolic 103–150; BP diastolic 71–87; PULSE 60–80; RESP 15–16; TEMP 36.6–36.8; O2SAT 96–100; BMI 29.2
[2024-04-22 06:39] LABS: Basophils Absolute Auto 0.1 K/mm3 (0.0-0.1); Basophils Percent Auto 0.5 % (0.2-1.2); Eosinophils Absolute Auto 0.4 K/mm3 (0-0.3); Eosinophils Percent Auto 3.5 % (0-4.4); Hematocrit 36.6 % (37.0-47.0); Hemoglobin 11.2 g/dL (12.0-15.0); Immature Granulocyte Absolute 0.04 K/mm3 (0.00-0.031); Immature Granulocyte Percent A 0.4 % (0-0.5); Lymphocytes Absolute Auto 2.63 K/mm3 (0.9-3.2); Mean Corpuscular HGB Conc 30.6 g/dl (32-36); Mean Corpuscular Hemoglobin 29.9 pg (26-34); Mean Corpuscular Volume 97.6 fl (80-100); Mean Platelet Volume 12.1 fl (7.4-10.4); Monocytes Absolute Auto 0.9 K/mm3 (0.1-0.6); Neutrophils Percent Auto 63.6 % (45.5-73.1); Platelet Count Result 192 k/mm3 (150-375); Red Blood Count 3.75 M/mm3 (4.2-5.4); Red Cell Distribution Width 13.3 % (11.5-14.5)
[2024-04-22 06:51] LABS: Alanine Aminotransferase 16 U/L (6-35); Albumin Level 3.9 g/dL (3.5-5.1); Alkaline Phosphatase 41 U/L (38-126); Anion Gap 9 mmol/L (4-12); Aspartate Amino Transferase 28 U/L (14-36); Bilirubin,Total 0.7 mg/dL (0.2-1.3); Blood Urea Nitrogen 26 mg/dL (7-17); Calcium 8.5 mg/dL (8.4-10.2); Carbon Dioxide 25 mmol/L (22-30); Chloride 98 mmol/L (98-107); Estimated CRCL calculation 31 ml/min; Estimated Glomerular Filt Rate 39; Glucose 90 mg/dL (65-110); Potassium 4.2 mmol/L (3.4-5.0); Sodium 132 mmol/L (137-145)
--- NOTE | 2024-04-22 08:22 | PM.IMPN ---
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 however the last E coli UTI was cortez sensitive Patient was given a dose of Rocephin in the ED and then transitioned over to meropenem due to ESBL history (2) FRANKIE (acute kidney injury): Code(s): N17.9 - Acute kidney failure, unspecified Status: Inactive Assessment and Plan: 04/22/24: Likely related to urinary tract infection Creatinine initially 1.5 now down to 1.3 Baseline creatinine 0.9 Continue to trend (3) Acute metabolic encephalopathy: Code(s): G93.41 - Metabolic encephalopathy Status: Acute Assessment and Plan: 04/22/24: Continue neuro checks Baseline normally alert oriented x3 Likely secondary to urinary tract infection (4) Anemia, chronic disease: Code(s): D63.8 - Anemia in other chronic diseases classified elsewhere Status: Chronic Assessment and Plan: 04/22/24: Hemoglobin 11.2 today Continue to monitor (5) Hypertension: Qualifiers: Hypertension type: primary hypertension Qualified Code(s): I10 - Essential (primary) hypertension Code(s): I10 - Essential (primary) hypertension Status: Chronic Assessment and Plan: 04/22/24: Blood pressures ranging 127/62 to 158/86 Continue Coreg (6) COPD (chronic obstructive pulmonary disease): Qualifiers: COPD type: unspecified COPD Qualified Code(s): J44.9 - Chronic obstructive pulmonary disease, unspecified Code(s): J44.9 - Chronic obstructive pulmonary disease, unspecified Status: Chronic Assessment and Plan: 04/22/24: History of interstitial lung disease as well On 2-3 L nasal cannula at baseline DuoNebs ordered (7) CHF (congestive heart failure): Qualifiers: Heart failure chronicity: chronic Heart failure type: unspecified Qualified Code(s): I50.9 - Heart failure, unspecified Code(s): I50.9 - Heart failure, unspecified Status: Acute Assessment and Plan: 04/22/24: Last echo from 08/17/2023 was reviewed showing normal LV systolic function with an estimated EF of 60-65%, grade 1 diastolic dysfunction, mild pulmonary hypertension. Continue Lasix 40 mg daily Time Spent With Patient Time with patient: Greater than 35 minutes Subjective Date/time seen: 04/22/24 08:22 Interval history: Interval history: This is an 79 year female who presented to the hospital from [facility] via EMS on 04/21/2024 with altered mental status and incontinence. Workup in the hospital includes chest x-ray which shows chronic interstitial lung disease, cardiomegaly. Initial labs showed a white blood cell count of 15.1, hemoglobin 11.9, INR 1.3, sodium 131, chloride 92, creatinine 1.5, EGFR 33. UA was obtained and showed 1+ urine protein, 2+ urine ketone, 2+ leukocytes, 6-10 urine RBC, 51-100 urine WBCs, 4+ urine bacteria. Urine culture was obtained and is pending. Patient has history of Klebsiella pneumoniae and E coli in the past. She also has had ESBL back in 2020 but the latest E coli was pansensitive. Patient was given IV fluids and Rocephin while in the ED. 04/22/24: Patient denies any fever, chills, headache, nausea, vomiting, diarrhea, abdominal pain, chest pain, or shortness of breath. Patient states she is feeling much better today. Review of Systems Review of Systems: All systems reviewed & are unremarkable except as noted in HPI and below Constitutional: Constitutional: Reports as per HPI and Reports no additional constitutional complaints Eyes: Eyes: Reports as per HPI and Reports no additional eye complaints ENT: Reports system reviewed and no addition
[2024-04-22] MEDS: PREGABALIN (*CRX) 75 MG CAPSULE 150 MG PO ×2 (09:50→20:34)
[2024-04-22] MEDS: MAGNESIUM OXIDE 400 MG TABLET PO (09:50)
[2024-04-22] MEDS: POTASSIUM CHLORIDE 20 MEQ ER TABLET PO (09:50)
[2024-04-22] MEDS: OMEGA 3 POLYUNSAT FATTY ACIDS 1 GM CAP PO (09:50)
[2024-04-22] MEDS: PANTOPRAZOLE 40 MG TABLET PO (09:50)
[2024-04-22] MEDS: ATORVASTATIN 40 MG TABLET 80 MG PO (09:50)
[2024-04-22] MEDS: LORATADINE 10 MG TABLET PO (09:50)
[2024-04-22] MEDS: CHOLECALCIFEROL 1,000 UNITS TABLET 1000 UNITS PO (09:51)
[2024-04-22] MEDS: FUROSEMIDE 40 MG TABLET PO (09:51)
[2024-04-22] MEDS: FERROUS SULFATE 325 MG TABLET DR PO (09:51)
[2024-04-22] MEDS: buPROPion HCL 75 MG TABLET PO (09:51)
[2024-04-22] MEDS: APIXABAN 2.5 MG TABLET PO ×2 (09:51→20:35)
[2024-04-22] MEDS: FOLIC ACID 1 MG TABLET PO (09:51)
[2024-04-22] MEDS: LIPASE/AMYLASE/PROTEASE 12,000 UNITS CAP 2 CAP PO ×3 (09:51→17:32)
[2024-04-22] MEDS: guaiFENesin 12 HR 600 MG TABCR PO ×2 (09:51→20:35)
[2024-04-22] MEDS: carvediloL 3.125 MG TABLET PO ×2 (09:51→20:34)
[2024-04-22] MEDS: AZELASTINE HCL NASAL 0.1% 137 MCG/SPR 30 ML BTL 2 SPRAY NASAL (09:52)
[2024-04-22] MEDS: EUCERIN CREAM 120 GM JAR 1 APPLIC TOPICAL (09:52)
[2024-04-22] MEDS: ARTIFICIAL TEARS OPHTH SOLN 15 ML BOTTLE 1 DROP EACH EYE ×2 (09:54→17:32)
[2024-04-22] MEDS: MEROPENEM 1 GM/NS 100 ML 1 GM/100 ML BAG IVPB (09:54)
[2024-04-22] MEDS: UMECLIDINIUM/VILANTEROL 62.5-25 MCG ELLIPTA 1 PUFF INHALATION (10:02)
[2024-04-22] MEDS: HYDROcodone/acetaminophen (*CRX) 5-325 MG TABLET 1 TAB PO (12:43)
[2024-04-22] MEDS: ONDANSETRON INJ 4 MG/2 ML VIAL IV PUSH (14:58)
[2024-04-22] MEDS: ACETAMINOPHEN 325 MG TABLET 650 MG PO (20:34)
[2024-04-22] MEDS: AMOXICILLIN/CLAVULANATE K 875-125 MG TAB 1 TABLET PO (20:35)
[2024-04-23] VITALS (7 sets, daily range): BP systolic 113–136; BP diastolic 60–76; PULSE 57–91; RESP 16–18; TEMP 36.8–37.4; O2SAT 95–99
[2024-04-23 08:51] LABS: Basophils Absolute Auto 0.1 K/mm3 (0.0-0.1); Basophils Percent Auto 0.7 % (0.2-1.2); Eosinophils Absolute Auto 0.5 K/mm3 (0-0.3); Eosinophils Percent Auto 4.7 % (0-4.4); Hematocrit 38.3 % (37.0-47.0); Immature Granulocyte Absolute 0.05 K/mm3 (0.00-0.031); Immature Granulocyte Percent A 0.4 % (0-0.5); Lymphocytes Absolute Auto 2.82 K/mm3 (0.9-3.2); Mean Corpuscular HGB Conc 31.3 g/dl (32-36); Mean Corpuscular Hemoglobin 30.5 pg (26-34); Mean Corpuscular Volume 97.2 fl (80-100); Mean Platelet Volume 11.8 fl (7.4-10.4); Monocytes Absolute Auto 0.9 K/mm3 (0.1-0.6); Monocytes Percent Auto 7.7 % (2.6-8.5); Neutrophils Absolute Auto 6.9 K/mm3 (1.3-6.7); Neutrophils Percent Auto 61.5 % (45.5-73.1); Platelet Count Result 245 k/mm3 (150-375); Red Blood Count 3.94 M/mm3 (4.2-5.4); Red Cell Distribution Width 13.3 % (11.5-14.5); White Blood Count 11.3 K/mm3 (4.5-10.0)
[2024-04-23] MEDS: LORATADINE 10 MG TABLET PO (08:54)
[2024-04-23] MEDS: POTASSIUM CHLORIDE 20 MEQ ER TABLET PO (08:54)
[2024-04-23] MEDS: LIPASE/AMYLASE/PROTEASE 12,000 UNITS CAP 2 CAP PO ×3 (08:54→17:16)
[2024-04-23] MEDS: OMEGA 3 POLYUNSAT FATTY ACIDS 1 GM CAP PO (08:54)
[2024-04-23] MEDS: MAGNESIUM OXIDE 400 MG TABLET PO (08:54)
[2024-04-23 08:55] LABS: Alanine Aminotransferase 17 U/L (6-35); Albumin Level 4.3 g/dL (3.5-5.1); Alkaline Phosphatase 42 U/L (38-126); Anion Gap 8 mmol/L (4-12); Aspartate Amino Transferase 25 U/L (14-36); Bilirubin,Total 0.4 mg/dL (0.2-1.3); Blood Urea Nitrogen 23 mg/dL (7-17); Calcium 8.8 mg/dL (8.4-10.2); Carbon Dioxide 32 mmol/L (22-30); Chloride 95 mmol/L (98-107); Estimated CRCL calculation 36 ml/min; Estimated Glomerular Filt Rate 48; Glucose 105 mg/dL (65-110); Potassium 4.4 mmol/L (3.4-5.0); Sodium 135 mmol/L (137-145)
[2024-04-23] MEDS: FOLIC ACID 1 MG TABLET PO (08:55)
[2024-04-23] MEDS: PREGABALIN (*CRX) 75 MG CAPSULE 150 MG PO ×2 (08:55→20:34)
[2024-04-23] MEDS: carvediloL 3.125 MG TABLET PO ×2 (08:55→20:34)
[2024-04-23] MEDS: AMOXICILLIN/CLAVULANATE K 875-125 MG TAB 1 TABLET PO ×2 (08:55→20:35)
[2024-04-23] MEDS: buPROPion HCL 75 MG TABLET PO (08:55)
[2024-04-23] MEDS: CHOLECALCIFEROL 1,000 UNITS TABLET 1000 UNITS PO (08:55)
[2024-04-23] MEDS: FUROSEMIDE 40 MG TABLET PO (08:56)
[2024-04-23] MEDS: ATORVASTATIN 40 MG TABLET 80 MG PO (08:56)
[2024-04-23] MEDS: PANTOPRAZOLE 40 MG TABLET PO (08:56)
[2024-04-23] MEDS: guaiFENesin 12 HR 600 MG TABCR PO ×2 (08:56→20:35)
[2024-04-23] MEDS: APIXABAN 2.5 MG TABLET PO ×2 (08:56→20:35)
[2024-04-23] MEDS: FERROUS SULFATE 325 MG TABLET DR PO (08:56)
[2024-04-23] MEDS: AZELASTINE HCL NASAL 0.1% 137 MCG/SPR 30 ML BTL 2 SPRAY NASAL ×2 (08:57→17:17)
[2024-04-23] MEDS: HYDROCORTISONE 2.5% CREAM 30 GM TUBE 1 APPLIC TOPICAL (08:58)
[2024-04-23] MEDS: DICLOFENAC SODIUM 1% 100 GM GEL (*BKC) 1 APPLIC TOPICAL (08:58)
[2024-04-23] MEDS: EUCERIN CREAM 120 GM JAR 1 APPLIC TOPICAL (08:59)
[2024-04-23] MEDS: ARTIFICIAL TEARS OPHTH SOLN 15 ML BOTTLE 1 DROP EACH EYE ×2 (08:59→17:17)
[2024-04-23] MEDS: UMECLIDINIUM/VILANTEROL 62.5-25 MCG ELLIPTA 1 PUFF INHALATION (09:10)
--- NOTE | 2024-04-23 13:31 | P.PNIM_ITS ---
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 however the last E coli UTI was cortez sensitive * Patient was given a dose of Rocephin in the ED and then transitioned over to meropenem due to ESBL history 04/23/24: * Transition to cefdinir * Urine culture still pending * Reporting nausea today and abdominal pain * Continue pain control and nausea control (2) FRANKIE (acute kidney injury): Code(s): N17.9 - Acute kidney failure, unspecified Status: Inactive Assessment and Plan: 04/22/24: * Likely related to urinary tract infection * Creatinine initially 1.5 now down to 1.3 * Baseline creatinine 0.9 * Continue to trend 04/23/24: * Creatinine 1.1 * Continue to trend (3) Acute metabolic encephalopathy: Code(s): G93.41 - Metabolic encephalopathy Status: Acute Assessment and Plan: 04/22/24: * Continue neuro checks * Baseline normally alert oriented x3 * Likely secondary to urinary tract infection 04/23/24: * Resolved (4) Anemia, chronic disease: Code(s): D63.8 - Anemia in other chronic diseases classified elsewhere Status: Chronic Assessment and Plan: 04/22/24: * Hemoglobin 11.2 today * Continue to monitor 04/23/24: * Hemoglobin 12.0 * Continue to trend (5) Hypertension: Qualifiers: Hypertension type: primary hypertension Qualified Code(s): I10 - Essential (primary) hypertension Code(s): I10 - Essential (primary) hypertension Status: Chronic Assessment and Plan: 04/22/24: * Blood pressures ranging 127/62 to 158/86 * Continue Coreg 04/23/24: * No change to current treatment plan (6) COPD (chronic obstructive pulmonary disease): Qualifiers: COPD type: unspecified COPD Qualified Code(s): J44.9 - Chronic obst ructive pulmonary disease, unspecified Code(s): J44.9 - Chronic obstructive pulmonary disease, unspecified Status: Chronic Assessment and Plan: 04/22/24: * History of interstitial lung disease as well * On 2-3 L nasal cannula at baseline * DuoNebs ordered 04/23/24: * No change to current treatment plan (7) CHF (congestive heart failure): Qualifiers: Heart failure type: unspecified Heart failure chronicity: chronic Qualified Code(s): I50.9 - Heart failure, unspecified Code(s): I50.9 - Heart failure, unspecified Status: Acute Assessment and Plan: 04/22/24: * Last echo from 08/17/2023 was reviewed showing normal LV systolic function with an estimated EF of 60-65%, grade 1 diastolic dysfunction, mild pulmonary hypertension. * Continue Lasix 40 mg daily 04/23/24: * No change to current plan Subjective Date/time seen: 04/23/24 13:31 Interval history: Interval history: This is an 79 year female who presented to the hospital from [facility] via EMS on 04/21/2024 with altered mental status and incontinence. Workup in the hospital includes chest x-ray which shows chronic interstitial lung disease, cardiomegaly. Initial labs showed a white blood cell count of 15.1, hemoglobin 11.9, INR 1.3, sodium 131, chloride 92, creatinine 1.5, EGFR 33. UA was obtained and showed 1+ urine prote
--- NOTE | 2024-04-23 13:31 | PM.IMPN ---
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 however the last E coli UTI was cortez sensitive Patient was given a dose of Rocephin in the ED and then transitioned over to meropenem due to ESBL history 04/23/24: Transition to cefdinir Urine culture still pending Reporting nausea today and abdominal pain Continue pain control and nausea control (2) FRANKIE (acute kidney injury): Code(s): N17.9 - Acute kidney failure, unspecified Status: Inactive Assessment and Plan: 04/22/24: Likely related to urinary tract infection Creatinine initially 1.5 now down to 1.3 Baseline creatinine 0.9 Continue to trend 04/23/24: Creatinine 1.1 Continue to trend (3) Acute metabolic encephalopathy: Code(s): G93.41 - Metabolic encephalopathy Status: Acute Assessment and Plan: 04/22/24: Continue neuro checks Baseline normally alert oriented x3 Likely secondary to urinary tract infection 04/23/24: Resolved (4) Anemia, chronic disease: Code(s): D63.8 - Anemia in other chronic diseases classified elsewhere Status: Chronic Assessment and Plan: 04/22/24: Hemoglobin 11.2 today Continue to monitor 04/23/24: Hemoglobin 12.0 Continue to trend (5) Hypertension: Qualifiers: Hypertension type: primary hypertension Qualified Code(s): I10 - Essential (primary) hypertension Code(s): I10 - Essential (primary) hypertension Status: Chronic Assessment and Plan: 04/22/24: Blood pressures ranging 127/62 to 158/86 Continue Coreg 04/23/24: No change to current treatment plan (6) COPD (chronic obstructive pulmonary disease): Qualifiers: COPD type: unspecified COPD Qualified Code(s): J44.9 - Chronic obstructive pulmonary disease, unspecified Code(s): J44.9 - Chronic obstructive pulmonary disease, unspecified Status: Chronic Assessment and Plan: 04/22/24: History of interstitial lung disease as well On 2-3 L nasal cannula at baseline DuoNebs ordered 7/23/24: No change to current treatment plan (7) CHF (congestive heart failure): Qualifiers: Heart failure type: unspecified Heart failure chronicity: chronic Qualified Code(s): I50.9 - Heart failure, unspecified Code(s): I50.9 - Heart failure, unspecified Status: Acute Assessment and Plan: 04/22/24: Last echo from 08/17/2023 was reviewed showing normal LV systolic function with an estimated EF of 60-65%, grade 1 diastolic dysfunction, mild pulmonary hypertension. Continue Lasix 40 mg daily 04/23/24: No change to current plan Subjective Date/time seen: 04/23/24 13:31 Interval history: Interval history: This is an 79 year female who presented to the hospital from [facility] via EMS on 04/21/2024 with altered mental status and incontinence. Workup in the hospital includes chest x-ray which shows chronic interstitial lung disease, cardiomegaly. Initial labs showed a white blood cell count of 15.1, hemoglobin 11.9, INR 1.3, sodium 131, chloride 92, creatinine 1.5, EGFR 33. UA was obtained and showed 1+ urine protein, 2+ urine ketone, 2+ leukocytes, 6-10 urine RBC, 51-100 urine WBCs, 4+ urine bacteria. Urine culture was obtained and is pending. Patient has history of Klebsiella pneumoniae and E coli in the past. She also has had ESBL back in 2020 but the latest E coli was pansensitive. Patient was given IV fluids and Rocephin while in the ED. 04/22/24: Patient denies any fever, chills, headache, nausea, vomiting, diarrhea, abdominal pain, chest pain, or shortness of breath. Patient states she is feeling much better today
[2024-04-23] MEDS: ACETAMINOPHEN 325 MG TABLET 650 MG PO (14:42)
[2024-04-23] MEDS: HYDROcodone/acetaminophen (*CRX) 5-325 MG TABLET 1 TAB PO (17:16)
[2024-04-23] MEDS: traZODone HCL 50 MG TABLET 150 MG PO (20:34)
[2024-04-24 06:29] VITALS: BP 140/80; PULSE 57; RESP 18; TEMP 36.1; O2SAT 100
[2024-04-24] MEDS: ACETAMINOPHEN 325 MG TABLET 650 MG PO (06:40)
[2024-04-24] MEDS: PANTOPRAZOLE 40 MG TABLET PO (08:25)
[2024-04-24] MEDS: MAGNESIUM OXIDE 400 MG TABLET PO (08:25)
[2024-04-24] MEDS: guaiFENesin 12 HR 600 MG TABCR PO (08:26)
[2024-04-24] MEDS: FERROUS SULFATE 325 MG TABLET DR PO (08:26)
[2024-04-24] MEDS: FOLIC ACID 1 MG TABLET PO (08:26)
[2024-04-24] MEDS: buPROPion HCL 75 MG TABLET PO (08:26)
[2024-04-24] MEDS: FUROSEMIDE 40 MG TABLET PO (08:26)
[2024-04-24] MEDS: ATORVASTATIN 40 MG TABLET 80 MG PO (08:26)
[2024-04-24] MEDS: POTASSIUM CHLORIDE 20 MEQ ER TABLET PO (08:26)
[2024-04-24] MEDS: OMEGA 3 POLYUNSAT FATTY ACIDS 1 GM CAP PO (08:26)
[2024-04-24] MEDS: AMOXICILLIN/CLAVULANATE K 875-125 MG TAB 1 TABLET PO (08:26)
[2024-04-24] MEDS: PREGABALIN (*CRX) 75 MG CAPSULE 150 MG PO (08:26)
[2024-04-24] MEDS: LORATADINE 10 MG TABLET PO (08:26)
[2024-04-24] MEDS: CHOLECALCIFEROL 1,000 UNITS TABLET 1000 UNITS PO (08:26)
[2024-04-24] MEDS: LIPASE/AMYLASE/PROTEASE 12,000 UNITS CAP 2 CAP PO ×2 (08:26→12:44)
[2024-04-24] MEDS: APIXABAN 2.5 MG TABLET PO (08:27)
[2024-04-24] MEDS: carvediloL 3.125 MG TABLET PO (08:27)
[2024-04-24] MEDS: LOPERAMIDE HCL 2 MG CAPSULE PO (08:30)
[2024-04-24] MEDS: HYDROcodone/acetaminophen (*CRX) 5-325 MG TABLET 1 TAB PO (08:30)
[2024-04-24] MEDS: AZELASTINE HCL NASAL 0.1% 137 MCG/SPR 30 ML BTL 2 SPRAY NASAL (08:37)
[2024-04-24] MEDS: ARTIFICIAL TEARS OPHTH SOLN 15 ML BOTTLE 1 DROP EACH EYE (08:37)
[2024-04-24] MEDS: EUCERIN CREAM 120 GM JAR 1 APPLIC TOPICAL (08:38)
[2024-04-24 08:40] VITALS: O2SAT 100
[2024-04-24] MEDS: UMECLIDINIUM/VILANTEROL 62.5-25 MCG ELLIPTA 1 PUFF INHALATION (09:14)
[2024-04-24 09:15] VITALS: O2SAT 95
[2024-04-24 09:15] LABS: Basophils Percent Auto 0.3 % (0.2-1.2); Eosinophils Absolute Auto 0.5 K/mm3 (0-0.3); Eosinophils Percent Auto 4.2 % (0-4.4); Hemoglobin 11.8 g/dL (12.0-15.0); Immature Granulocyte Absolute 0.06 K/mm3 (0.00-0.031); Immature Granulocyte Percent A 0.5 % (0-0.5); Lymphocytes Absolute Auto 2.39 K/mm3 (0.9-3.2); Lymphocytes Percent Auto 19.4 % (18.3-44.2); Mean Corpuscular HGB Conc 31.1 g/dl (32-36); Mean Corpuscular Hemoglobin 30.6 pg (26-34); Mean Corpuscular Volume 98.7 fl (80-100); Monocytes Absolute Auto 0.7 K/mm3 (0.1-0.6); Monocytes Percent Auto 5.6 % (2.6-8.5); Neutrophils Absolute Auto 8.6 K/mm3 (1.3-6.7); Platelet Count Result 223 k/mm3 (150-375); Red Blood Count 3.85 M/mm3 (4.2-5.4); Red Cell Distribution Width 13.5 % (11.5-14.5); White Blood Count 12.3 K/mm3 (4.5-10.0)
[2024-04-24] MEDS: FIDAXOMICIN 200 MG TABLET PO (09:26)
[2024-04-24 09:32] LABS: Alanine Aminotransferase 16 U/L (6-35); Albumin Level 4.5 g/dL (3.5-5.1); Alkaline Phosphatase 41 U/L (38-126); Anion Gap 9 mmol/L (4-12); Aspartate Amino Transferase 24 U/L (14-36); Bilirubin,Total 0.4 mg/dL (0.2-1.3); Blood Urea Nitrogen 27 mg/dL (7-17); Calcium 8.7 mg/dL (8.4-10.2); Carbon Dioxide 33 mmol/L (22-30); Chloride 95 mmol/L (98-107); Estimated CRCL calculation 40 ml/min; Estimated Glomerular Filt Rate 53; Glucose 148 mg/dL (65-110); Potassium 4.4 mmol/L (3.4-5.0); Sodium 137 mmol/L (137-145)
[2024-04-24] MEDS: ONDANSETRON HCL ODT 4 MG TABLET PO (10:01)
[2024-04-24 11:54] LABS: Toxigenic C. Diff POSITIVE (NEGATIVE)
--- NOTE | 2024-04-24 12:12 | PM.DS ---
DS: Admitting Diagnosis Discharge Date 04/24/24 Admitting Diagnosis Acute UTI Acute metabolic encephalopathy Chronic anemia Hypertension DS: Discharge Diagnosis Discharge Diagnosis (1) UTI (urinary tract infection): Code(s): N39.0 - Urinary tract infection, site not specified Status: Acute (2) FRANKIE (acute kidney injury): Code(s): N17.9 - Acute kidney failure, unspecified Status: Inactive (3) Acute metabolic encephalopathy: Code(s): G93.41 - Metabolic encephalopathy Status: Acute (4) Anemia, chronic disease: Code(s): D63.8 - Anemia in other chronic diseases classified elsewhere Status: Chronic (5) Hypertension: Qualifiers: Hypertension type: primary hypertension Qualified Code(s): I10 - Essential (primary) hypertension Code(s): I10 - Essential (primary) hypertension Status: Chronic (6) COPD (chronic obstructive pulmonary disease): Qualifiers: COPD type: unspecified COPD Qualified Code(s): J44.9 - Chronic obstructive pulmonary disease, unspecified Code(s): J44.9 - Chronic obstructive pulmonary disease, unspecified Status: Chronic (7) CHF (congestive heart failure): Qualifiers: Heart failure chronicity: chronic Heart failure type: unspecified Qualified Code(s): I50.9 - Heart failure, unspecified Code(s): I50.9 - Heart failure, unspecified Status: Acute DS: Summary Hospital Course Reason for hospitalization: Acute UTI Acute metabolic encephalopathy Chronic anemia Hypertension Hospital Course: This is an 79 year female who presented to the hospital from [facility] via EMS on 04/21/2024 with altered mental status and incontinence. Workup in the hospital includes chest x-ray which shows chronic interstitial lung disease, cardiomegaly. Initial labs showed a white blood cell count of 15.1, hemoglobin 11.9, INR 1.3, sodium 131, chloride 92, creatinine 1.5, EGFR 33. UA was obtained and showed 1+ urine protein, 2+ urine ketone, 2+ leukocytes, 6-10 urine RBC, 51-100 urine WBCs, 4+ urine bacteria. Urine culture was obtained and is pending. Patient has history of Klebsiella pneumoniae and E coli in the past. She also has had ESBL back in 2020 but the latest E coli was pansensitive. Patient was given IV fluids and Rocephin while in the ED. She was initially transitioned to Augmentin but then developed diarrhea. 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 Patient is stable for discharge at this time. She will need to follow up with PCP in 1 week. Final diagnosis: Acute UTI, C diff Status at Discharge Cognitive/behavioral status at discharge: Alert and oriented x3 Functional status at discharge: uses cane/walker Overall status at discharge: patient is progressing back to baseline Time Spent with Patient Time attestation: Total time spent providing and/or coordinating discharge services: Time spent: Greater than 30 minutes Exam Narrative: General: In no acute distress, well nourished Cardiac: Normal S1 and S2. RRR, No murmur, gallops or friction rubs, peripheral pulses intact. Respiratory: Lungs clear to auscultation, no adventitious lung sounds, currently on room air Gastrointestinal: soft, non-distended, non-tender, normoactive bowel sounds. Multiple loose/liquid stools : voiding without difficulty. Extremities: moves all extremities well, no edema Skin: clean, dry, intact. No wounds or lesions. Neuro: Alert and oriented x3 DS: Data Data Completed and Pending Completed studies during hospitalization: Chest x-ray Pending studies at discharge: Urine culture Labs on day of discharge: Labs from last 24 hours 04/24/24 04/24/24 10:42 08:56 WBC 12.3 H RBC 3.85 L Hgb 11.8 L Hct 38.0 MCV 98.7 MCH 30.6 MCHC 31.1 L RDW 13.5 Plt Count 223 MPV 12
[2024-04-24 13:34] LABS: SARS-CoV-2 RNA PCR Negative (Negative)
[2024-04-24 14:00] VITALS: BP 112/78; PULSE 70; RESP 16; TEMP 36.1; O2SAT 100
== END 2024-04-24 15:49 ==
LOC: ANHED 16:14 → ANH3MEDSUR 17:08 → ANH3MED 17:19
PROVIDERS: Student in an Organized Health Care Education/Training Program; Admitting Provider General Practice; Emergency Provider Emergency Medicine; PCP Family Medicine; Visit Provider Nurse Practitioner Acute Care
DX: N17.9 Acute kidney failure, unspecified (principal); N39.0 Urinary tract infection, site not specified; B96.89 Other specified bacterial agents as the cause of diseases classified elsewhere; G93.41 Metabolic encephalopathy; F03.90 Unspecified dementia, unspecified severity, without behavioral disturbance, psychotic disturbance, mood disturbance, and anxiety; J96.12 Chronic respiratory failure with hypercapnia; J96.11 Chronic respiratory failure with hypoxia; Z99.81 Dependence on supplemental oxygen; J44.9 Chronic obstructive pulmonary disease, unspecified; J84.9 Interstitial pulmonary disease, unspecified; I11.0 Hypertensive heart disease with heart failure; I50.30 Unspecified diastolic (congestive) heart failure; J43.9 Emphysema, unspecified; K86.81 Exocrine pancreatic insufficiency; K21.9 Gastro-esophageal reflux disease without esophagitis; Z11.52 Encounter for screening for COVID-19; E78.5 Hyperlipidemia, unspecified; M81.0 Age-related osteoporosis without current pathological fracture; I73.9 Peripheral vascular disease, unspecified; I27.21 Secondary pulmonary arterial hypertension; R73.03 Prediabetes; D63.8 Anemia in other chronic diseases classified elsewhere; F41.9 Anxiety disorder, unspecified; F32.A Depression, unspecified; Z86.73 Personal history of transient ischemic attack (TIA), and cerebral infarction without residual deficits; Z79.01 Long term (current) use of anticoagulants; Z79.891 Long term (current) use of opiate analgesic; Z79.51 Long term (current) use of inhaled steroids; Z98.1 Arthrodesis status; Z87.891 Personal history of nicotine dependence
CPT/HCPCS: 36415; 71046; 80053; 81001; 85025; 85610; 85730; 87077; 87086; 87088; 87186; 87493; 87635; 94640; 96361; 96365; 96366; 96367; 96375; 99285; A9270; G0378; J0696; J2185; J2405; J7030

== ENCOUNTER 2024-05-10 09:52 | Emergency (ER) | payer MEDICARE, MEDICAID, SELFPAY ==
--- NOTE | ~2024-05-10 | XR_ITS ---
EXAMINATION: XR elbow RT min 3V DATE: 05/10/2024 10:26 INDICATION: Right elbow pain. Fall. TECHNIQUE: 4 views of right elbow were obtained. COMPARISON: None. FINDINGS: Bone alignment is normal. No fracture. There is mild elbow joint osteoarthritis. No elbow j oint effusion. IMPRESSION: 1. Mild elbow joint osteoarthritis. Reviewed, dictated and finalized at location A.
--- NOTE | ~2024-05-10 | XR_ITS ---
EXAMINATION: XR wrist RT min 3V DATE: 05/10/2024 10:27 INDICATION: Right wrist pain. TECHNIQUE: 4 views of right wrist were obtained. COMPARISON: Right wrist radiographs 04/26/2021 FINDINGS: Bone alignment is normal. No fracture. There is sclerosis in a pattern of chondroid matrix in distal ulna measuring 1.9 cm, consistent with an enchondroma. There is severe osteoarthritis of tr iscaphe joint and first carpometacarpal joint. IMPRESSION: 1. Polyarticular osteoarthritis. Reviewed, dictated and finalized at location A.
--- NOTE | ~2024-05-10 | CT_ITS ---
EXAMINATION: CT brain wo con DATE: 05/10/2024 10:29 INDICATION: Head injury. Fall. TECHNIQUE: Computed tomography (CT) of the head was performed without intravenous contrast. The mA wa s adjusted according to patient size. Iterative reconstruction technique was employed. The dose-lengt h product was 605.33 mGy-cm. COMPARISON: Head CT 09/01/2023 FINDINGS: There is an old infarct in left cerebellum. There are old infarcts in the bilateral basal g anglia. There are scattered areas of low attenuation in the cerebral white matter. There is no intrac ranial hemorrhage, acute infarction, or abnormal intracranial mass lesion. The ventricles are normal in size. There are likely changes of ocular lens replacement surgeries. The paranasal sinuses are nova ar. There is no abnormal mass lesion. IMPRESSION: 1. 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 2. Stable moderate nonspecific cerebral white matter disease, which likely represents chronic small v essel ischemic disease. Reviewed, dictated and finalized at location A. IMPRESSION: 1. 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 2. Stable moderate nonspecific cerebral white matter disease, which likely repr esents chronic small vessel ischemic disease.
--- NOTE | ~2024-05-10 | XR_ITS ---
EXAMINATION: XR shoulder LT min 2V DATE: 05/10/2024 11:05 INDICATION: Left shoulder injury and pain. TECHNIQUE: 4 views of left shoulder were obtained. COMPARISON: Left shoulder radiographs 10/10/2023 FINDINGS: Bone alignment is normal. No fracture. There is severe osteoarthritis of glenohumeral joint and acromioclavicular joint. IMPRESSION: 1. Polyarticular osteoarthritis. Reviewed, dictated and finalized at location A.
[2024-05-10 09:54] VITALS: TEMP 36.6
[2024-05-10 09:57] VITALS: BP 146/97; PULSE 60; RESP 16; TEMP 36.6; O2SAT 96
--- NOTE | 2024-05-10 10:06 | ED.FALL ---
HPI - Fall General Chief Complaint: Fall Stated Complaint: glf Time Seen by Provider: 05/10/24 09:53 Source: patient and EMS Mode of arrival: EMS Limitations: no limitations History of Present Illness HPI Narrative: 79 years old white female came by ambulance complaining of a fall. Patient normally should be on wheelchair 24x7, try to go to the bathroom without using wheelchair, her legs gave out and fell to the floor .possible Striking her head on the floor, no loss of consciousness, complaining of right elbow pain and right wrist skin avulsion. She denies other injuries. Patient currently on physical therapy Related Data Home Medications Medication Instructions Recorded Confirmed acetaminophen 650 mg 650 mg PO Q6H PRN Mild Pain (Scale 10/09/21 04/21/24 tablet,extended release Score 1-4) benzonatate 200 mg capsule 200 mg PO Q8H PRN Cough 10/09/21 04/21/24 carvedilol 3.125 mg tablet (Coreg) 3.125 mg PO BID 10/09/21 04/21/24 magnesium hydroxide 400 mg/5 mL 400 mg PO Q72H PRN Constipation 10/09/21 04/21/24 oral suspension (Milk of Magnesia) magnesium oxide 400 mg (241.3 mg 400 mg PO DAILY 10/09/21 04/21/24 magnesium) tablet ondansetron 4 mg disintegrating 4 mg PO Q6H PRN nausea and 10/09/21 04/21/24 tablet vomitting trazodone 300 mg tablet 250 mg PO HS 10/09/21 04/21/24 apixaban 2.5 mg tablet (Eliquis) 2.5 mg PO BID 01/12/23 04/21/24 bupropion HCl 75 mg tablet 75 mg PO DAILY 01/12/23 04/21/24 furosemide 40 mg tablet 40 mg PO QAM 01/12/23 04/21/24 guaifenesin 600 mg tablet, 600 mg PO BID 01/12/23 04/21/24 extended release 12 hr pantoprazole 40 mg tablet,delayed 40 mg PO QAM 01/12/23 04/21/24 release (Protonix) sodium phosphates 19 gram-7 118 ml RECTAL ONCE PRN Constipation 01/12/23 04/21/24 gram/118 mL enema (Fleet Enema) hydrocodone 5 mg-acetaminophen 325 1 tablet PO BID PRN Pain (Scale 05/24/23 04/21/24 mg tablet Score 7-10) meloxicam submicronized 10 mg 10 mg PO DAILY 05/24/23 04/21/24 capsule umeclidinium 62.5 mcg-vilanterol 1 inh inhalation DAILY 08/16/23 04/21/24 25 mcg/actuation powdr for inhalation (Anoro Ellipta) albuterol sulfate 2.5 mg/3 mL 2.5 mg inhalation QID PRN SOB 04/18/24 04/21/24 (0.083 %) solution for nebulization azelastine 137 mcg (0.1 %) nasal 137 mcg intranasal BID 04/18/24 04/21/24 spray famotidine 20 mg tablet 20 mg PO BID 04/18/24 04/21/24 omega 4-gxw-vtd-fish oil 1,000 mg 1 cap PO DAILY 04/18/24 04/21/24 (120 mg-180 mg) capsule (Fish Oil) albuterol sulfate 90 mcg/actuation 1 inh inhalation Q4-6H PRN sob 04/21/24 04/21/24 breath activated powder inhaler wheezing artificial tears solution eye drops 1 drp ophthalmic (eye) BID dry eyes 04/21/24 04/21/24 cholecalciferol (vitamin D3) 25 25 mcg PO DAILY 04/21/24 04/21/24 mcg (1,000 unit) tablet diclofenac sodium 1 % topical gel 2 g topical QID PRN knee pain 04/21/24 04/21/24 emollient combination no.110 1 ea topical DAILY 04/21/24 04/21/24 (Eucerin Intensive Repair lotion) hydrocortisone 2.5 % topical cream 1 applic topical QID PRN Itching 04/21/24 04/21/24 ipratropium 0.5 mg-albuterol 3 mg 3 ml inhalation Q6H PRN SOB 04/21/24 04/21/24 (2.5 mg base)/3 mL nebulization soln tbdzyr-xuzuvhqt-jrfoovi 2 cap PO TID 04/21/24 04/21/24 24,000-76,000-120,000 unit capsule,delayed rel (Creon) loperamide 2 mg capsule 2 mg PO Q12H PRN Diarrhea 04/21/24 04/21/24 Allergies Allergy/AdvReac Type Severity Reaction Status Date / Time No Known Allergies Allergy Unknown Verified 04/18/24 11:08 Review of Systems Review of Systems: All systems reviewed & are unremarkable except as noted in HPI and below PMFSH Past Medical History Medical History Anemia of chronic disease Anxiety Arthritis Cerebrovascular accident Chronic interstitial lung disease Chronic obstructive pulmonary disease Chronic respiratory failure with hypoxia and hypercapnia On 2 to 3 L nasal cannula.
[2024-05-10 12:00] VITALS: BP 138/70; PULSE 98; RESP 20; O2SAT 97
[2024-05-10 12:12] VITALS: BP 124/92; PULSE 76; RESP 16; O2SAT 98
[2024-05-10 14:00] VITALS: BP 122/58; PULSE 64; RESP 20; O2SAT 99
[2024-05-10] MEDS: HYDROcodone/acetaminophen (*CRX) 5-325 MG TABLET 1 TAB PO (15:03)
== END 2024-05-10 16:01 ==
PROVIDERS: Emergency Provider Emergency Medicine; PCP Family Medicine
DX: S53.491A Other sprain of right elbow, initial encounter (principal); F03.90 Unspecified dementia, unspecified severity, without behavioral disturbance, psychotic disturbance, mood disturbance, and anxiety; I50.30 Unspecified diastolic (congestive) heart failure; I11.0 Hypertensive heart disease with heart failure; I73.9 Peripheral vascular disease, unspecified; I27.21 Secondary pulmonary arterial hypertension; J84.9 Interstitial pulmonary disease, unspecified; J96.11 Chronic respiratory failure with hypoxia; J96.12 Chronic respiratory failure with hypercapnia; Z99.81 Dependence on supplemental oxygen; J43.9 Emphysema, unspecified; J44.9 Chronic obstructive pulmonary disease, unspecified; E78.5 Hyperlipidemia, unspecified; D63.8 Anemia in other chronic diseases classified elsewhere; M19.021 Primary osteoarthritis, right elbow; M19.012 Primary osteoarthritis, left shoulder; M19.031 Primary osteoarthritis, right wrist; M81.0 Age-related osteoporosis without current pathological fracture; K86.81 Exocrine pancreatic insufficiency; K21.9 Gastro-esophageal reflux disease without esophagitis; N32.81 Overactive bladder; F32.A Depression, unspecified; F41.9 Anxiety disorder, unspecified; Z98.1 Arthrodesis status; Z86.73 Personal history of transient ischemic attack (TIA), and cerebral infarction without residual deficits; Z87.11 Personal history of peptic ulcer disease; Z86.16 Personal history of COVID-19; Z87.01 Personal history of pneumonia (recurrent); Z86.711 Personal history of pulmonary embolism; Z87.891 Personal history of nicotine dependence; Z90.49 Acquired absence of other specified parts of digestive tract; Z90.710 Acquired absence of both cervix and uterus; Z79.01 Long term (current) use of anticoagulants; Z79.899 Other long term (current) drug therapy; W18.39XA Other fall on same level, initial encounter
CPT/HCPCS: 70450; 73030; 73080; 73110; 99284; A9270

== ENCOUNTER 2024-09-18 12:25 | Outpatient (CLI) | payer MEDICARE, MEDICAID, SELFPAY ==
--- NOTE | ~2024-09-18 | MR_ITS ---
EXAMINATION: MR shoulder LT wo/w con DATE: 09/18/2024 13:46 INDICATION: Left shoulder pain TECHNIQUE: Magnetic resonance imaging (MRI) of the left shoulder was performed without and with 17 mL Multihance intravenous contrast. Sequences included axial PD-weighted FS FSE, axial T1-weighted FS F SE, coronal oblique PD-weighted FS FSE, coronal oblique T2-weighted FS FSE, sagittal PD-weighted FS F SE, sagittal T1-weighted FSE and postcontrast axial, sagittal and coronal T1-weighted FS FSE COMPARISON: None. FINDINGS: Coracoacromial arch: The acromion undersurface is curved in morphology (type II) used. Moderate sized anterior subacromial spur at the acromial attachment of the normal coracoacromial ligament. Mild to moderate acromioclavi cular osteoarthritis. Rotator cuff: Mild supraspinatus and infraspinatus tendinopathy with partial-thickness articular sided tear along t he superior and anterior portion of the middle facet footplates of the supraspinatus and conjoined elena praspinatus and infraspinatus tendons. The majority of the tear appears to involve less than one half the tendon thickness with small portion of the tear at the posterior infraspinatus tendon involving up to two thirds of the tendon thickness and measuring approximately 4 mm AP with approximately 2 cm medial retraction of the torn portion of the tendon. The teres minor and subscapularis tendons are no rmal. There is relatively uniform diffuse mild likely age-related fatty atrophy of the musculature of the shoulder girdle including the rotator cuff. Biceps tendon, glenoid labrum and glenohumeral cartilage: Mild tendinopathy and mild longitudinal split tearing of the long head of the biceps tendon. There is severe glenohumeral osteoarthritis with extensive full/near full-thickness cartilage loss at both th e glenoid and humeral head. There is suggestion of some early cortical remodeling with mild subarticu lar cystlike change along the posterior superomedial aspect of the humeral head. There is also some r emodeling of the glenoid with loss of bone stock and severe hypertrophic change along the posterior g lenoid which results in 10 degrees of acquired retroversion of the glenoid. There is diffuse tearing of the glenoid labrum. Large marginal osteophytes along the inferior and posterior inferior aspect of the humeral head. Fluid: Moderate-sized glenohumeral joint effusion with peripheral enhancing synovitis. No loose osteochondra l bodies. No abnormal fluid signal or enhancement in the subacromial/subdeltoid bursa to suggest burs itis. Bones/other: Normal marrow signal with no edema, fracture or abnormal marrow replacing process. No pathologically enlarged left axillary lymphadenopathy. IMPRESSION: 1. Severe left glenohumeral osteoarthritis with diffuse labral tearing and likely reactive moderate s ized glenohumeral joint effusion. 3. Mild supraspinatus and infraspinatus tendinopathy with mild to moderate severity particular sided tear along the footplate of the supraspinatus and conjoined supraspinatus and infraspinatus tendons. 4. Mild tendinopathy and longitudinal split tearing of the long head biceps tendon. Reviewed, dictated and finalized at location A. OW DISPLAY DESIGNER IMPRESSION: 1. Severe left glenohumeral osteoarthritis with diffuse labral tearing and like ly reactive moderate sized glenohumeral joint effusion. 3. Mild supraspinatus and infraspinatus tendinopathy with mild to moderate edith rity particular sided tear along the footplate of the supraspinatus and conjoin ed supraspinatus and infraspinatus tendons. 4. Mild tendinopathy and longitudinal split tearing of the long head biceps ten don.
== END 2024-09-18 12:26 | disposition home or self-care (01) ==
LOC: ANHIMG 12:28
PROVIDERS: PCP Family Medicine
DX: M19.012 Primary osteoarthritis, left shoulder (principal); S43.432A Superior glenoid labrum lesion of left shoulder, initial encounter; M67.814 Other specified disorders of tendon, left shoulder; X58.XXXA Exposure to other specified factors, initial encounter
CPT/HCPCS: 73223; A9577

== ENCOUNTER 2025-03-16 16:42 | Emergency (ER) | payer MEDICARE, MEDICAID, SELFPAY ==
--- NOTE | ~2025-03-16 | XR_ITS ---
HISTORY: right hip pain s/p fall 3 days ago COMPARISON: None TECHNIQUE: 2 views of the right hip along with an AP view of the pelvis FINDINGS: No acute displaced fracture or dislocation is identified. Superior lateral sclerosis of the bilateral femoral acetabular joint spaces are present (right greate r than left) consistent with osteoarthritis. Diffuse bony demineralization is present, age-appropriate. IMPRESSION: Degenerative disease without acute displaced fracture or dislocation Reviewed, dictated and finalized at location A.
--- OUTSIDE RECORDS SUMMARY | 2025-03-16 16:44 | XMS_ITS ---
Author Organization [facility] Care Team Providers Care Quill Buncher And Sorter Name Role Phone Stephanie Groves Unavailable Unavailable Versjaylen, Maria E Unavailable Unavailable Bone, Ryan Gallegos Unavailable Unavailabl e Nyuguto, Mckenna Wakellieui Unavailable Unavaila ble Ampadu, Devan Maria Ines Unavailable Unavailable Ampadu, Geraldine Unavailable Unavailable Fahim, Magid Unavailable Unavailable Zeb, Luz Marina Unavailable Unavailable Allergies and adverse reactions No Known Allergies Care Team Name Role Address Phone Organization Dates Devan Kirk PCP [address], [place], [facility] (Office): [facility] 08/20/2023 - 09/01/2023 Stephanie Groves [address], [place], [facility], [place] (Office): [facility] [place] 08/20/2023 - 09/01/2023 Maria E Uribe [address] [place], [address], [place] (Office): [facility] [place] 08/20/2023 - 09/01/2023 Ryan Shaver [address], [place], [facility] (Office): : [facility] [place] 08/20/2023 - 09/01/2023 Mckenna Hardwick [address] [place], [address], [place] (Office): : [facility] [place] 08/20/2023 - 09/01/2023 Geraldine Kirk [address] [place], [address], [place] (Office): : [facility] [place] 08/20/2023 - 09/01/2023 Kayode Myers [address] [facility], [place], [address], [place] (Office): [facility] [place] 08/20/2023 - 09/01/2023 Luz Marina Carrington [address] [place], [address], [place] (Office): [facility] 08/20/2023 - 09/01/2023 Goals Section Goals Description Status Target Date The resident will have no in dications of psychosocial well-being problem by/through review date. Active 09/08/2023 The resident will have no in dications of psychosocial well-being problem by/through review date. Active 09/08/2023 Gabbi will not harm themselves or others related to behavior. Active 10/26/2023 Current level of care is yessenia ropriate considering current physical/ social/ emotional status. Active 10/26/2023 If the resident's heart stop s, or if they stop breathing, CPR WILL be initiated in honor with their FULL code wishes ongoing through next review date Active 10/26/2023 Minimize the risk of residen t exposure to the novel Coronavirus (COVID-19). Active 10/26/2023 Prevent a serious fall related injury Active 10/26/2023 Resident dietary PREFERENCES will be honored thr ough next review. Active 10/26/2023 Resident risk for adverse ef fects related to use of opioids will be minimized through next review date. Active 10/26/2023 Resident risk for recurrence of urinary tract infection will be minimized through next review Active 10/26/2023 Resident to maintain Isolation as directed Activ e 10/26/2023 Resident to maintain Isolation as directed Activ e 09/08/2023 Resident to maintain Isolation as directed Activ e 09/08/2023 Resident will be FREE OF UNE XPECTED COMPLICATIONS related to cardiac concerns Active 10/26/2023 Resident will be able to safely and comfortably consume meals. Active 10/26/2023 Resident will be free from s igns and symptoms of abnormal bleeding through the next review date. Active 10/26/2023 Resident will be kept clean, dry and comfortable daily through next review Active 10/26/2023 Resident will be maintained at their respiratory baseline with a patent airway and unlabored respirations through next review date. Active 10/26/2023 Resident will have a regular bowel elimination pattern AEB soft/formed bowel movements at least once every three days through the next review: Active 10/26/2023 Resident will have adequate fluid volume balance AEB good skin turgor, pink & moist mucous membranes, and sufficient fluid intake through next review. Active 10/26/2023 Resident will have intact sk in, free of redness, blisters, or discoloration over a bony prominence through next review date Active 10/26/2023 Resident will maintain ADEQUATE NUTRITION levels . Active 10/26/2023 Resident will maintain a saf e and highest level of functioning through next review Active 10/26/2023 Resident will not experience a decline in overall function related to pain through next review date. Active 10/26/2023 Resident will not experience serious side effects due to medication use. Active 10/26/2023 Resident will safely use appropriate bed rails a s needed. Active 10/26/2023 Resident will state/demonstr ate relief or reduction in pain intensity within one hour after receiving interventions through next review date. Active 10/26/2023 Residents preferences will be honored as able Ac tive 10/26/2023 The patient will display adequate nutrition Acti ve 10/26/2023 The resident will be able to communicate basic needs or make routine daily decisions on a daily basis through the review date. Active 10/26/2023 The resident will be free fr om complications of cardiac problems through the review date. Active 10/26/2023 The resident will be free fr om s/sx of complications of poor circulation through the review date. Active 10/26/2023 The resident will be kept cl patricia and comfortable through next review date. Active 10/26/2023 The resident will be/remain free of psychotropic drug related complications, including abnormal movement disorder, discomfort, hypotension, gait disturbance, ADL decline or cognitive/behavioral impairment through review date. Active 10/26/2023 The resident will have all n eeded items and materials to fully engage in preferred self-directed INDEPENDENT activity pursuits. Active 10/26/2023 The resident will have impro gisell sleep pattern by reporting satisfaction with rest or fewer documented episodes of insomnia through the review date Active 10/26/2023 The resident will have no in dications of psychosocial well-being problem by/through review date. Active 10/26/2023 The resident will improve cu rrent level of ADL function through the review date. Active 10/26/2023 The resident will maintain l ab values within acceptable parameters per physician or receive planned treatment for management of lab values through review date. Active 10/26/2023 The resident will remain cachorro e from discomfort, complications or s/sx related to gastro-intestinal alterations through review date. Active 10/26/2023 The resident will remain cachorro e from or at a level of discomfort acceptable to the resident through the review date. Active The resident will remain cachorro e of avoidable injuries or complications related to osteoporosis through review date Active 10/26/2023 The resident will report sat isfaction with rest and sleep patterns or have fewer documented episodes of insomnia through the review date Active 10/26/2023 Immunizations Immunization Status Vaccine Details Vaccine Code CodeSystem Date Notes TB 1 Step Mantoux (PPD) completed tuberculin skin test; unspecified formulation lotNumber: [id number] expiry: 02/22/2023 Given 0.1 ml Right Forearm subcutaneously 98 CVX created date: 3 consent date: 3 administe red date: 3 TB 1 Step Mantoux (PPD) completed tuberculin skin test; unspecified formulation lotNumber: [id number] expiry: 07/23/2022 Mfg: [employer] Given 0.1 ml Right Forearm intradermally 98 CVX created date: 2 consent date: 2 administe red date: 2 Educated by Cierra Hernandez RN on 01/07/2022 Pneumovax (in community/hospi tami) completed pneumococcal polysaccharide vaccine, 23 valent 33 CVX created date: 1 administe red date: 8 per patient Tdap completed tetanus toxoid, reduced diphtheria toxoid, and acellular pertussis vaccine, adsorbed 115 CVX created date: 1 administe red date: 1 SARS-COV-2 (COVID-19) completed SARS-COV-2 (COVID-19) vaccine, mRNA, spike protein, LNP, preservative free, 30 mcg/0.3mL dose, tamika-sucrose formulation lotNumber: [id number] expiry: 11/29/2021 Mfg: [employer] Given 0.3 ml Right Deltoid intramuscularly Step 1 of Multi-step 217 CVX created date: 1 consent date: 1 administe red date: 1 Booster SARS-COV-2 (COVID-19) completed SARS-COV-2 (COVID-19) vaccine, vector non-replicating, recombinant spike protein-ChAdOx1, preservative free, 0.5 mL Step 2 of Multi-step with next step required 210 CVX created date: 1 administe red date: 1 SARS-COV-2 (COVID-19) completed SARS-COV-2 (COVID-19) vaccine, vector non-replicating, recombinant spike protein-ChAdOx1, preservative free, 0.5 mL Step 1 of Multi-step with next step required 210 CVX created date: 1 administe red date: 1 per hosp packet Flucelvax (Influenza vaccine) completed Influenza, split virus, quadrivalent, injectable, preservative free lotNumber: [id number] expiry: 03/31/2024 Given 0.5 ml Right Deltoid intramuscularly 150 CVX created date: 3 consent date: 3 administe red date: 3 Educated by Rima Keller RN on 07/19/2023 Flucelvax (Influenza vaccine) completed Influenza, split virus, quadrivalent, injectable, preservative free lotNumber: [id number] expiry: 03/31/2023 Given Right Deltoid intramuscularly 150 CVX created date: 2 consent date: 2 administe red date: 2 Flucelvax (Influenza vaccine) completed Influenza, split virus, quadrivalent, injectable, preservative free lotNumber: [id number] expiry: 03/31/2022 Mfg: [employer] Given 0.5 ml Left Deltoid intramuscularly 150 CVX created date: 1 consent date: 1 administe red date: 1 Resident tolerated well. SARS-COV-2 Bivalent Booster- Pfizer completed SARS-COV-2 (COVID-19) vaccine, mRNA, spike protein, LNP, bivalent, preservative free, 30 mcg/0.3 mL dose, tamika-sucrose formulation lotNumber: [id number] expiry: 05/02/2023 Given Left Deltoid intramuscularly 300 CVX created date: 2 consent date: 2 administe red date: 2 Pneumovax (PCV 20) completed Pneumococcal conjugate vaccine 20-valent (PCV20), polysaccharide [id number] conjugate, adjuvant, preservative free lotNumber: [id number] expiry: 07/01/2023 Given Left Deltoid intramuscularly 216 CVX created date: 2 consent date: 2 administe red date: 2 series complete vaccinated for life [id number] COVID Vaccine (Moderna Spikevax) new SARS-COV-2 (COVID-19) vaccine, mRNA, spike protein, LNP, preservative free, 50 mcg/0.5 mL dose 312 CVX created date: 3 consent date: 3 Educated by Rima Keller RN on 09/05/2023 Medications Section Medication Name Status Code CodeSystem Dose Route Frequency Admin Type Sig Text Start Date End Date Carvedilol Tablet 3.125 MG active 296673 RXNORM 1 tablet Oral two times a day Routine Give 1 tablet by mouth two times a day for Hypert ension 2021 - Benzonatate Capsule 200 MG active 031267 RXNORM 1 capsul e Oral as needed PRN Give 1 capsul e by mouth every 8 hours as needed for Cough relate d to COUGH (R05) Please give TID 2021 - Folic Acid Tablet 1 MG active 798123 RXNORM 1 tablet Oral in the morning Routine Give 1 tablet by mouth in the mornin g relate d to FOLATE DEFICI ENCY ANEMIA , UNSPEC IFIED (D52.9 ) 2021 - Acetaminophen Tablet 650 MG active 19840104 RXNORM 1 tablet Oral as needed PRN Give 1 tablet by mouth every 6 hours as needed for Genera l Discom fort Non-Ph arm Interv ention s- 1 =music , aromat herapy , light touch/ massag e 2 =Remin iscenc e,real ity orient ation, valida tion therap y 3 =exerc ise, activi ties 4 =1:1 intera ction, pet therap y 5 =Reduc ed stimul ation, quiet area 2021 - Potassium Chloride ER Tablet Extended Release 20 MEQ active [id number] RXNORM 1 tablet Oral one time a day Routine Give 1 tablet by mouth one time a day for Supple ment 2021 - Magnesium Oxide Tablet 400 MG active 19861231 RXNORM 1 tablet Oral one time a day Routine Give 1 tablet by mouth one time a day relate d to 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 2021 - Bisacodyl Suppository 10 MG active 352770 RXNORM 1 suppos itory Rectal as needed PRN Insert 1 suppos itory rectal ly every 24 hours as needed for for consti pation daily if no result s from MOM 2021 - Milk of Magnesia Suspension 400 MG/5ML active 488256 RXNORM 30 ml Oral as needed PRN Give 30 ml by mouth every 24 hours as needed for Consti pation at bedtim e if NO BM in 3 days 2021 - Pregabalin Capsule 150 MG active 833973 RXNORM 1 capsul e Oral two times a day Routine Give 1 capsul e by mouth two times a day for Neurop athic pain 2021 - Albuterol Sulfate Aerosol Powder Breath Activated active 1 inhala tion Inhalat ion as needed PRN 1 inhala tion inhale orally every 4 hours as needed for Shortn ess of breath and wheezi ng 2021 - Cetirizine HCl Tablet 10 MG active 1103253 RXNORM 1 tablet Oral one time a day Routine Give 1 tablet by mouth one time a day relate d to OTHER ALLERG Y, INITIA L ENCOUN TER (T78.4 9XA) 2021 - Milk of Magnesia Suspension 1200 MG/15ML active 658005 RXNORM 400 mg Oral as needed PRN Give 400 mg by mouth every 72 hours as needed for consti pation 2021 - Ondansetron HCl Tablet 4 MG active 939751 RXNORM 1 tablet Oral as needed PRN Give 1 tablet by mouth every 6 hours as needed for Nausea and Vomiti ng 2021 - FerrouSul Tablet active 1 tablet Oral three times a day Routine Give 1 tablet by mouth three times a day relate d to ANEMIA , UNSPEC IFIED (D64.9 ) 2021 - Protonix Tablet Delayed Release 40 MG active 420399 RXNORM 1 tablet Oral one time a day Routine Give 1 tablet by mouth one time a day relate d to GASTRO -ESOPH AGEAL REFLUX DISEAS E WITHOU T ESOPHA GITIS (K21.9 ) 2021 - Furosemide Tablet 40 MG active 369067 RXNORM 1 tablet Oral one time a day Routine Give 1 tablet by mouth one time a day for CHF 2021 - Ipratropium-A lbuterol Solution 0.5-2.5 (3) MG/3ML active 6631496 RXNORM 1 vial Inhalat ion four times a day Routine 1 vial inhale orally four times a day for wheezi ng relate d to CHRONI C OBSTRU CTIVE PULMON SHINE DISEAS E, UNSPEC IFIED (J44.9 ) 2021 - traZODone HCl Tablet 150 MG active 078855 RXNORM 150 mg Oral at bedtime Routine Give 150 mg by mouth at bedtim e for insomn ia give with 100mg to equal 250mg 2021 - buPROPion HCl Tablet active 75 mg Oral in the morning Routine Give 75 mg by mouth in the [facility] relate d to MAJOR DEPRES SIVE DISORD ER, RECURR ENT, 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 ) 2021 - Vitamin D3 Tablet active 1000 IU Oral one time a day Routine Give 1000 IU by mouth one time a day relate d to VITAMI N D DEFICI ENCY, UNSPEC IFIED (E55.9 ) 2021 - HYDROcodone-A cetaminophen Oral Tablet 5-325 MG active 371911 RXNORM 1 tablet Oral as needed PRN Give 1 tablet by mouth every 12 hours as needed for modera te to severe pain 2022 - Anoro Ellipta Inhalation Aerosol Powder Breath Activated 62.5-25 MCG/ACT active 6012240 RXNORM 1 inhala tion Inhalat ion in the morning Routine 1 [facility] relate d to CHRONI C RESPIR ATORY FAILUR E WITH HYPOXI A (J96.1 1) 2022 - Meloxicam Oral Capsule 10 MG active 5359863 RXNORM 1 capsul e Oral one time a day Routine Give 1 capsul e by mouth one time a day for Pain 2022 - Eliquis Tablet 2.5 MG active 4306112 RXNORM 1 tablet Oral two times a day Routine Give 1 tablet by mouth two times a day for Prophy laxis 2022 - Voltaren External Gel 1 % active 756989 RXNORM n/a n/a Topical as needed PRN Apply to bilate ral knees topica lly as needed for knee pain apply 4.5in( 2g) gel QID prn 2022 - Loperamide HCl Capsule 2 MG active 335462 RXNORM 1 capsul e Oral as needed PRN Give 1 capsul e by mouth every 12 hours as needed for diarrh ea after each loose stool 2022 - Flonase Allergy Relief Nasal Suspension 50 MCG/ACT active 7269075 RXNORM 2 spray Nasal one time a day Routine 2 spray in both nostri ls one time a day for conges tion 2022 - Mental Status Section Date Assessment Total Score Description 08/25/2023 BIMS 10 moderate cognit blanca impairment CAM 0 No delirium ind icated PHQ-9 12 moderate depres josias 08/16/2023 CAM 0 No delirium ind icated Problems Problem # Description Date of onset Resolved Date Code CodeSystem Concern Status 1 COVID-[address] active 2 ENTEROCOLITIS DUE TO CLOSTRIDIUM DIFFICILE, NOT SPECIFIED RECURRENT [address] active 3 LOCAL INFECTION OF THE SKIN AND SUBCUTANEOUS TISSUE, UNSPECIFIED 023 07/08/[address] completed 4 OTHER ABNORMALITIES OF GAIT AND MOBILITY [address] active 5 MUSCLE WEAKNESS (GENERALIZED) [address] active 6 STIFFNESS OF UNSPECIFIED JOINT, NOT ELSEWHERE CLASSIFIED [address] active 7 MUSCLE WEAKNESS (GENERALIZED) 023 02/08/[address] completed 8 STIFFNESS OF LEFT SHOULDER, NOT ELSEWHERE CLASSIFIED 023 02/08/[address] completed 9 STIFFNESS OF RIGHT SHOULDER, NOT ELSEWHERE CLASSIFIED 023 02/08/[address] completed 10 COGNITIVE COMMUNICATION DEFICIT 023 02/08/[address] completed 11 PAIN IN LEFT SHOULDER [address] active 12 PAIN IN RIGHT SHOULDER [address] active 13 COVID-19 023 10/15/[address] completed 14 PNEUMONIA, UNSPECIFIED ORGANISM 022 09/01/[address] completed 15 VITAMIN D DEFICIENCY, UNSPECIFIED 89099222 SNOMED CT active 16 LOW BACK PAIN, UNSPECIFIED 795624148 SNOMED CT active 17 ENCEPHALOPATHY, UNSPECIFIED 10/26/[address] completed 18 ACUTE CYSTITIS WITHOUT HEMATURIA 08/10/[address] completed 19 DERMATOPHYTOSIS, UNSPECIFIED 74759810 SNOMED CT active 20 OTHER NEUROMUSCULAR DYSFUNCTION OF BLADDER 936633167 SNOMED CT active 21 PERSONAL HISTORY OF COVID-19 08/01/[address] completed 22 PNEUMONIA DUE TO CORONAVIRUS DISEASE 2019 09/01/[address] completed 23 INSOMNIA, UNSPECIFIED 819517298 SNOMED CT active 24 CONTUSION OF UNSPECIFIED PART OF HEAD, SUBSEQUENT ENCOUNTER 08/10/[address] completed 25 COVID-19 021 07/06/[address] completed 26 COVID-19 021 08/03/[address] completed 27 ACUTE AND CHRONIC RESPIRATORY FAILURE WITH HYPOXIA 50299793462542560 SNOMED CT active [address] active 29 METABOLIC ENCEPHALOPATHY 04/21/[address] completed 30 OTHER LACK OF COORDINATION 08/10/[address] completed 31 PAIN IN LEFT WRIST [address] active 32 ALTERED MENTAL STATUS, UNSPECIFIED 08/10/[address] completed 33 CHRONIC RESPIRATORY FAILURE WITH HYPOXIA 640248018 SNOMED CT active 34 ELEVATED WHITE BLOOD CELL COUNT, UNSPECIFIED 021 08/10/[address] completed 35 ENTEROCOLITIS DUE TO CLOSTRIDIUM DIFFICILE, NOT SPECIFIED RECURRENT 021 09/02/[address] completed 36 ENTEROCOLITIS DUE TO CLOSTRIDIUM DIFFICILE, RECURRENT 021 08/10/[address] completed 37 EXOCRINE PANCREATIC INSUFFICIENCY 04333868 SNOMED CT active 38 INTERSTITIAL PULMONARY DISEASE, UNSPECIFIED 128624246 SNOMED CT active 39 LYMPHEDEMA, NOT ELSEWHERE CLASSIFIED 307882909 SNOMED CT active 40 NONINFECTIVE GASTROENTERITIS AND COLITIS, UNSPECIFIED 021 08/10/[address] completed 41 OTHER ABNORMALITIES OF GAIT AND MOBILITY 021 08/10/[address] completed 42 OTHER NONSPECIFIC ABNORMAL FINDING OF LUNG FIELD 057071698 SNOMED CT active 43 SEPSIS, UNSPECIFIED ORGANISM 021 05/04/[address] completed 44 SEPSIS, UNSPECIFIED ORGANISM 021 06/16/[address] completed 45 TOBACCO USE 021 04/24/2023 Z72.0 ICD-10-CM completed 46 UNILATERAL PRIMARY OSTEOARTHRITIS, RIGHT HIP 021 09/01/[address] completed 47 UNSPECIFIED PROTEIN-CALORIE MALNUTRITION 021 07/12/[address] completed 48 AGE-RELATED OSTEOPOROSIS WITHOUT CURRENT PATHOLOGICAL FRACTURE 35170449 SNOMED CT active 49 ALLERGIC RHINITIS, UNSPECIFIED [address] active 50 ANEMIA, UNSPECIFIED 021 09/01/[address] completed 51 ANXIETY DISORDER, UNSPECIFIED [address] active 52 BILATERAL PRIMARY OSTEOARTHRITIS OF HIP [address] active 53 BRONCHITIS, NOT SPECIFIED ACUTE OR CHRONIC [address] active 54 CHRONIC OBSTRUCTIVE PULMONARY DISEASE, UNSPECIFIED [address] active 55 COUGH 021 07/01/[address] completed 56 DEMENTIA IN OTHER DISEASES CLASSIFIED ELSEWHERE, UNSPECIFIED SEVERITY, WITHOUT BEHAVIORAL DISTURBANCE, PSYCHOTIC DISTURBANCE, MOOD DISTURBANCE, AND ANXIETY 442940202 SNOMED CT active 57 DIFFICULTY IN WALKING, NOT ELSEWHERE CLASSIFIED 08/10/[address] completed 58 DISORIENTATION, UNSPECIFIED 021 09/01/[address] completed 59 DIZZINESS AND GIDDINESS [address] active 60 EMPHYSEMA, UNSPECIFIED [address] active 61 ESSENTIAL (PRIMARY) HYPERTENSION [address] active 62 FOLATE DEFICIENCY ANEMIA, UNSPECIFIED 86270392 SNOMED CT active 63 FRONTAL LOBE AND EXECUTIVE FUNCTION DEFICIT 021 02/08/[address] completed 64 GASTRO-ESOPHAGEAL REFLUX DISEASE WITHOUT ESOPHAGITIS 233240954 SNOMED CT active 65 HEART FAILURE, UNSPECIFIED 29951059 SNOMED CT active 66 HYPERLIPIDEMIA, UNSPECIFIED [address] active 67 LACERATION WITHOUT FOREIGN BODY OF LEFT FOREARM, SUBSEQUENT ENCOUNTER 08/10/[address] completed 68 LOW BACK PAIN 021 07/01/[address] completed 69 MAJOR DEPRESSIVE DISORDER, RECURRENT, UNSPECIFIED [address] active 70 MUSCLE WEAKNESS (GENERALIZED) 08/10/[address] completed 71 NAUSEA 021 10/05/[address] completed 72 NAUSEA WITH VOMITING, UNSPECIFIED 021 08/10/[address] completed 73 OTHER CHRONIC PANCREATITIS 134304068 SNOMED CT active 74 OTHER INTERVERTEBRAL DISC DISPLACEMENT, LUMBAR REGION 355954983 SNOMED CT active 75 OTHER OSTEOPOROSIS WITHOUT CURRENT PATHOLOGICAL FRACTURE 021 09/01/[address] completed 76 OTHER SPECIFIED ARTHRITIS, UNSPECIFIED SITE [address] active 77 OTHER SYMPTOMS AND SIGNS INVOLVING COGNITIVE FUNCTIONS AND AWARENESS 021 09/01/[address] completed 78 OVERACTIVE BLADDER 140374921 SNOMED CT active 79 PERIPHERAL VASCULAR DISEASE, UNSPECIFIED 614385464 SNOMED CT active 80 PERSONAL HISTORY OF TRANSIENT ISCHEMIC ATTACK (TIA), AND CEREBRAL INFARCTION WITHOUT RESIDUAL DEFICITS 94157550 SNOMED CT active 81 PNEUMONIA, UNSPECIFIED ORGANISM 021 06/16/[address] completed 82 REPEATED FALLS 138595913 SNOMED CT active 83 RESTLESS LEGS SYNDROME 03210319 SNOMED CT active 84 STRAIN OF MUSCLE, FASCIA AND TENDON OF RIGHT HIP, SUBSEQUENT ENCOUNTER 08/10/[address] completed 85 STRAIN OF UNSPECIFIED MUSCLE(S) AND TENDON(S) AT LOWER LEG LEVEL, RIGHT LEG, SUBSEQUENT ENCOUNTER 021 08/10/[address] completed 86 UNSPECIFIED FALL, SUBSEQUENT ENCOUNTER 08/10/[address] completed 87 URINARY TRACT INFECTION, SITE NOT SPECIFIED 03/17/[address] completed Reason for Referral No Reasons for Referral Entered Social History Social History Observation Description Start Date End Date Code Code System Current Smoking Status Tobacco smoking consumption unknown 747961626 SNOMED CT Sex Assigned At Female 1945 87013-2 [facility] Gender Identity Vital Signs Code Code System Vitals Name Values and Units Timing Information 37998-0 [facility] Pain Level Value=5.0 09/11/2023 8462-4 [facility] Blood Pressure-Diastolic Value=76 Un its=mmHg 09/08/2023 8480-6 [facility] Blood Pressure-Systolic Wenit=129 Un its=mmHg 09/08/2023 9279-1 [facility] Respiratory Rate Value=16.0 Units=/m in 09/08/2023 8867-4 [facility] Heart rate Value=76.0 Units=/min 05/2023 8310-5 [facility] Body Temperature Value=98.0 Units= F 09/08/2023 76747-7 [facility] O2 % BldC Oximetry Value=99.0 Units= % 09/08/2023 36447-0 LOINC Weight Qbxmi=620.8 Units=Lbs 2339-0 LOINC Blood Sugar Value=20.0 Units=mg/dL 10/14/2021 8302-2 LOINC Height Value=62.0 Units=Inches 10/13/2021
--- OUTSIDE RECORDS SUMMARY | 2025-03-16 16:44 | XMS_ITS | Clinical Summary ---
Author Organization [facility] Address [address] [place] [address] Care Team Providers Care Thermal Surfacing Machine Operator Name Role Phone PastoradruMack montanez DO Primary Care Provider [phone] Source Comments [facility],non-owned Affiliates and Associated Physician Practices is amultiple site organization consisting of ambulatory clinics and hospital sitesin [place], [place] and [place]. This disclosure is being madepursuant to the Care Everywhere program and may not contain all information available regarding this patient. Last updated 18.[employer] [facility] Allergies Active Allergy Reactions Criticality Noted Date Comments Codeine Itching Low 08/12/2011 Itching Morphine Unknown 02/07/2012 UNKNOWN Medications * Be aware that medications may not be up to date on this document. Alwaysverify current medications with the patient. Eliquis 2.5 MG tablet 11/16/2024 Active amoxicillin-cla vulanate (Augmentin) 875-125 MG tablet 11/02/2024 Active atorvastatin (Lipitor) 40 MG tablet 11/01/2024 Active Azelastine HCl 137 MCG/SPRAY SOLN 10/20/2024 Active buPROPion (Wellbutrin) 75 MG tablet 11/06/2024 Active carvedilol (Coreg) 3.125 MG tablet 11/25/2024 Active cefdinir (Omnicef) 300 MG capsule TAKE 1 CAPSULE BY MOUTH EVERY 12 HOURS FOR 7 DAYS 11/27/2023 Active folic acid (Folvite) 1 MG tablet Take 1 tablet(s) every day by oral route. Active furosemide (Lasix) 40 MG tablet 11/05/2024 Active HYDROcodone-pool taminophen (Angora) 10-325 MG tablet 11/22/2024 Active albuterol-iprat ropium (Duo-Neb) 0.5-2.5 (3) MG/3ML nebulizer solution 10/21/2024 Active meloxicam (Mobic) 15 MG tablet 10/28/2024 Active ondansetron (Zofran) 4 MG tablet 11/01/2024 Active pantoprazole EC (Protonix) 40 MG tablet 10/30/2024 Active tetracycline (Achromycin; Sumycin) 500 MG capsule 11/22/2024 Active traZODone (Desyrel) 50 MG tablet 11/22/2024 Active triamcinolone acetonide (Kenalog) 0.1 % cream 09/30/2024 Active Hospital, Clinic, or Other Facility Administered Medication Ordered Dose Route Frequency Start Date End Date Status BUPivacaine (Marcaine) 0.5 % injectionIndications:Osteoa rthritis of right glenohumeral joint IX ONCE 03/05/2025 03/05/2025 Ended triamcinolone acetonide (Kenalog-40) injection 80 mgIndications:Osteoarthriti s of right glenohumeral joint 80 mg IX ONCE 03/05/2025 03/05/2025 Ended Active Problems No known active problems Encounters Date Type Department Care Team Description 03/05/2025 1:00 PM CDT Office Visit [facility] - Family Medicine [address] [place] [address] [place] [address] Abiodun Garcia MD Osteoarthritis of right glenohumeral joint (Primary Dx) 03/05/2025 Travel 01/20/2025 Travel from Last 3 Months Social History Tobacco Use Types Packs/Day Years Used Date Smoking Tobacco: Never Smokeless Tobacco: Never Tobacco Cessation:Counseling Given: Not Answered PHQ-2 Answer Date Recorded Patient Health Questionnaire-2 Score 0 11/27/2024 Comments Unknown Sex and Gender Information Value Date Recorded Sex Assigned at Not on file Legal Sex Female 6:26 AM AVIATION MANAGER Gender Identity Not on file Sexual Orientation Not on file Last Filed Vital Signs Vital Sign Reading Time Taken Comments Blood Pressure 137/84 03/05/2025 1:34 PM CDT Pulse 70 03/05/2025 1:34 PM CDT Temperature - - Respiratory Rate - - Oxygen Saturation - - Inhaled Oxygen Concentration - - Weight 74.4 kg (164 lb) 03/05/2025 1:34 PM CDT Height 154.9 cm (5' 1) 03/05/2025 1:34 PM CDT Body Mass Index 30.99 03/05/2025 1:34 PM CDT Plan of Treatment Upcoming Encounters Date Type Department Care Team (Late st Contact Info) Description 05/26/2025 1:00 PM CDT Office Visit [facility] - Pulmonology [address], [place] [address] Priyank Larsen MD [facility] OF [facility] [place] [address] Health Maintenance Due Date Last Done Comments BONE DENSITY TESTING 1945 MEDICARE AWV 12 MONTHS 1945 DTAP/TDAP/TD VACCINES (1 - Tdap) 01/02/1963 PNEUMOCOCCAL VACCINE 50+ (1 of 1 - PCV) 01/02/1994 ZOSTER VACCINE (1 of 2) 01/02/1994 Respiratory Syncytial Virus (RSV) Vaccine Pt: or over 60 yrs (1 - 1-dose 75+ series) 01/02/2019 COVID-19 VACCINE ( season) 2024 09/15/2022, 09/16/2021, 11/19/2020, Additional history exists INFLUENZA VACCINE (Season Ended) 2025 07/20/2023, 07/18/2022, 08/19/2021, Additional history exists DEPRESSION SCREENING Completed 11/27/2024 HEPATITIS B VACCINE Aged Out No longe r eligible based on patient's age to complete this topic HIB VACCINE Aged Out No longer eligi ble based on patient's age to complete this topic HPV VACCINE Aged Out No longer eligi ble based on patient's age to complete this topic MENINGOCOCCAL (Group B) VACCINE SHARED DECISION-MAKING Aged Out No longer eligible based on patient's age to complete this topic MENINGOCOCCAL GROUPS A/C/Y/W VACCINE Aged Out No longer eligible based on patient's age to complete this topic Procedures Procedure Name Priority Date/Time Associated Diagnosis Comments GA DRAIN INJ MAJOR JOINT BURSA W US Routine 03/05/2025 2:21 PM CDT Osteoarthritis of right glenohumeral joint from Last 3 Months Results * GA DRAIN INJ MAJOR JOINT BURSA W US (03/05/2025 2:21 PM CDT) Narrative Abiodun Garcia MD - 03/05/2025 2:21 PM CDT Abiodun Garcia MD 03/05/2025 4:20 PM U/S-GUIDED INJECTION PROCEDURE NOTE Risks/benefits of injection discussed, including bleeding, infection, site reaction, and possible flare. Pt. Expresses understanding and verbally consents for injection. U/S used to visualize anatomic area first. Next area prepped with chloroprep in usual sterile fashion. Ethyl chloride for local anesthesia. 2 cc of Kenalog (triamcinalone 40mg/ml) + 3 cc of bupivacaine .5% was injected into Left GH Joint using a posterior approach under ultrasound guidance. Pt. Tolerated well. No complications. An ultrasound image was saved demonstrating the successful needle localization. us Abiodun Garcia MD PROCEDURE/MINOR SURGICAL O RDERABLES Final Result from Last 3 Months Insurance MEDICARE [facility] MEDICARE [facility] Care Teams Thermal Surfacing Machine Operator Relationship Specialty Start Date End Date Mack Vanegas DO [address] [place] [id number] PCP - General Internal Medicine 11/27/24
--- OUTSIDE RECORDS SUMMARY | 2025-03-16 16:44 | XMS_ITS | Encounter Summary ---
Author Organization [facility] Address [address] [place] [address] Care Team Providers Care Power Hammer Operator Name Role Phone Mack Vanegas DO Primary Care Provider [phone] Encounter Details Date Type Department Care Team (Late st Contact Info) Description 02/10/2023 Telephone [facility] [address] [place] [id number] [address], [place] Social History Tobacco Use Types Packs/Day Years Used Date Smoking Tobacco: Former Comments No Sex and Gender Information Value Date Recorded Sex Assigned at Not on file Legal Sex Female 2:33 AM CASINO BANKER Gender Identity Not on file Sexual Orientation Not on file documented as of this encounter Plan of Treatment Not on file documented as of this encounter Visit Diagnoses Not on filedocumented in this encounter Care Teams Power Hammer Operator Relationship Specialty Start Date End Date Mack Vanegas DO PCP - General Internal Medicine 03/07/19 documented as of this encounter
--- OUTSIDE RECORDS SUMMARY | 2025-03-16 16:44 | XMS_ITS | Referral Summary ---
Author Organization [facility] [address] Address [address] [place] [address] Care Team Providers Care Investor Name Role Phone Mack Vanegas DO Primary Care Provider [phone] Allergies Active Allergy Reactions Criticality Noted Date Comments Codeine Itching Low 08/12/2011 Itching Morphine Unknown 02/07/2012 UNKNOWN Medications Eliquis 2.5 mg tablet 07/03/2022 Active atorvastatin (LIPITOR) 80 mg tablet 07/05/2022 Active azelastine (ASTELIN) 137 mcg (0.1 %) nasal spray 07/11/2022 Active buPROPion (WELLBUTRIN) 75 mg tablet 06/24/2022 Active carvediloL (COREG) 3.125 mg tablet 06/21/2022 Act blanca furosemide (LASIX) 40 mg tablet 06/20/2022 Active HYDROcodone-acetam inophen (NORCO) 5-325 mg per tablet 07/11/2022 Active ipratropium-albute roL (DUO-NEB) 0.5-2.5 mg/3 mL nebulizer solution 06/13/2022 Active Creon 24,000-76,000 -120,000 unit capsule 07/05/2022 Active ondansetron (ZOFRAN) 4 mg tablet 07/06/[address] (PROTONIX) 40 mg EC tablet 06/20/2022 Active potassium chloride ER 20 mEq CR tablet 07/13/2022 Active pregabalin (LYRICA) 150 mg capsule 07/05/2022 Active traZODone (DESYREL) 100 mg tablet 07/13/2022 Active traZODone (DESYREL) 150 mg tablet 07/13/2022 Active Active Problems No known active problems Social History Tobacco Use Types Packs/Day Years Used Date Smoking Tobacco: Former Comments No Sex and Gender Information Value Date Recorded Sex Assigned at Not on file Legal Sex Female 2:33 AM TURPENTINER Gender Identity Not on file Sexual Orientation Not on file Last Filed Vital Signs Vital Sign Reading Time Taken Comments Blood Pressure 130/98 06/19/2023 9:06 AM CDT Pulse 80 06/19/2023 9:06 AM CDT Temperature 36.8 C (98.2 F) 03/30/2021 10:48 AM CDT Respiratory Rate 14 06/19/2023 9:06 AM CDT Oxygen Saturation 96% 03/30/2021 3:54 PM CDT Inhaled Oxygen Concentration - - Weight 78.5 kg (173 lb) 02/03/2023 9:04 AM CDT Height 157.5 cm (5' 2) 02/03/2023 9:04 AM CDT Body Mass Index 31.64 02/03/2023 9:04 AM CDT Plan of Treatment Not on file Insurance [facility] [place] [address] [facility] ADVANTAGE [facility] MEDICARE [facility] Address: [address] [address] [place] [address] [employer]IL [facility] MEDIC[facility] ADVANTAGE IDPA Advance Directives For more information, please contact: [phone] Documents on File Type Date Recorded Patient Pretzel Twisting Machine Operator Expl anation ADVANCE DIRECTIVE 02/09/2013 12:00 AM GREYSON Elizondo OF ASSISTANT PROFESSOR OF THEATER FINANCIAL/MEDICAL Care Teams Investor Relationship Specialty Start Date End Date Mack Vanegas DO PCP - General Internal Medicine 03/07/19
--- OUTSIDE RECORDS SUMMARY | 2025-03-16 16:44 | XMS_ITS | Data Portability ---
Author Organization [facility] Address [address] [place] [address] Assessment No assessment recorded. Plan of Treatment Reminders Order Date Submit Date Provider Last Modified By Organization Details Last Modified Time Details Appointments None recorded. Lab None recorded. Referral None recorded. Procedures None recorded. Surgeries None recorded. Imaging None recorded. Medication Orders duloxetine 60 mg capsule,del ayed release 2014 015 [email or web address][id number], [address], [id number], 5 23:27:59 albuterol sulfate HFA 90 mcg/actuati on aerosol inhaler 2014 015 replaced by [email or web address][id number], [address], [id number], 5 23:27:59 Patient TargetsNo targets recorded. Patient Instructions Encounter Date Encounter Id Patient Instructions Last Modified By Organization Details Last Modified Time 12/02/2014 [id number] I was present an d available in the Family Medicine clinic to discuss this patient's care during the appointment. I agree with the resident's assessment and plan as documented. Becky Moreno MD [email or web address] Not available 12/04/2014 23:27:59 Reason for Referral None Reported. Results Created Date Observation Date Name Description Value Unit Range Abnormal Flag Note LastModifiedBy Organization Detail LastModifiedTime 11/18/19 16 01/14/2014 rexi ng/di zebos tic resul t No observ ation record ed. BARCODE Not Available 2015 18:54:58 Result Notes None recorded. Problems Name Problem SNOMED Code Status Onset Date Resolution Date Notes Provider Name and Address Organization Details Recorded Time Chronic low back pain 898795664 Active Gi Lang null, [facility] 5 13:24:15 Hypertensive disorder 22024149 Active Gi Lang null, [facility] 5 13:24:15 Gastroesophage al reflux disease 429598205 Active Andria Otf null, [facility] - [facility] 5 16:29:48 Problem Notes None recorded. Medical Equipment None Reported. Allergies No known drug allergies Medications Name Sig Start Date Stop Date Status Note LastModified by Organization Details LastModified Time atorvastat in 80 mg tablet TAKE 1 TABLET BY MOUTH EVERY DAY 2014 active Received pharmacy refill request. Medicatio n erx'd to pharmacy. Not Available Not Available Not Available promethazi ne 12.5 mg tablet active Not Available Not Available Not Available lisinopril 20 mg tablet TAKE 1 TABLET BY MOUTH EVERY DAY 2014 active Medicatio n erx'd to pharmacy. Not Available Not Available Not Available trazodone 100 mg tablet TAKE 2 TABLETS BY MOUTH AT BEDTIME 2015 active Medicatio n approved by Dr. Vanessa .Script erx'd to pharmacy. Not Available Not Available Not Available ropinirole 2 mg tablet TAKE 1 TABLET BY MOUTH AT BEDTIME active Not Available Not Available No t Available lansoprazo le 30 mg capsule,de layed release Take 1 capsule every day by oral route for 90 days. 2014 active Not Available Not Available Not Avai lable Advair Diskus 250 mcg-50 mcg/dose powder for inhalation USE 1 INHALATIO N BY MOUTH TWICE DAILY active Not Available Not Available No t Available folic acid 1 mg tablet Take 1 tablet(s) every day by oral route. active Not Available Not Available No t Available albuterol sulfate HFA 90 mcg/actuat ion aerosol inhaler Inhale 2 puffs every 4 hours by inhalatio n route as needed. 2014 active Not Available Not Available Not Avai lable oxybutynin chloride 5 mg tablet Take 1 tablet(s) every day by oral route. 2014 active Not Available Not Available Not Avai lable nabumetone 500 mg tablet TAKE ONE TABLET BY MOUTH TWICE DAILY WITH MEALS 2014 active Not Available Not Available Not Avai lable Spiriva with HandiHaler 18 mcg and inhalation capsules Inhale 1 capsule every day by inhalatio n route. 2014 active Pharmacis t called and stated that the patient's ins. would not approve the Advair, with out trying Spiriva first. Script was changed to Spiriva. Not Available Not Available Not Available duloxetine 60 mg capsule,de layed release Take 1 capsule(s ) every day by oral route. 2014 active Not Available Not Available Not Avai lable Symbicort 160 mcg-4.5 mcg/actuat ion HFA aerosol inhaler Inhale 2 puffs twice a day by inhalatio n route. 2015 active Received refill request. Script erx'd to pharmacy. Not Available Not Available Not Available Vitals Date Recorded Body weight Heart rate Body mass index (BMI) Body height Body temperature Systolic blood pressure Diastolic blood pressure Provider Name and Address Organization Details Last Updated DateTime 5 03842.8 8764 g 80 /min 31.5 kg/m2 157.48 cm 97.8 [degF] 158 mm[Hg] 94 mm[Hg] Ranulfo Narvaez [place] - [facility] 5 12:36:02 Social History None recorded. Functional Status None recorded. Mental Status None recorded. Family History Nothing Reported. Medical History No medical history recorded. Gynecological HistoryNo gynecological history recorded. Obstetrics History GPAL:G 0 P 0 0 0 0 Immunizations Vaccine Type Date Status Note Provider Nam e and Address Organization Details Recorded Time COVID-19, mRNA, LNP-S, PF, 30 mcg/0.3 mL dose 10/29/2020 completed Neva Ceballos null, [place] - [facility] 07/29/2021 13:22:43 COVID-19, mRNA, LNP-S, PF, 30 mcg/0.3 mL dose 11/19/2020 completed Neva Ceb[place]os null, [place] [facility] 07/29/2021 13:22:53 Tdap 09/11/2013 completed Brenda Menon RN null, [place] - [facility] 06/29/2017 12:38:46 Past Encounters Encounter ID Performer Location Encounter Start Date Encounter Closed Date Diagnosis/Indication Diagnosis SNOMED-CT Code Diagnosis ICD10 Code Diagnosis Note [id number] MD Rosemary Weaver (AN[facility] 300) [address] [place] [address] 12/02/2014 12:13:36 12/02/2014 23:17:33 Chronic pain syndrome 062023352 No narcotics from our office due to poor compliance . Will continue Duloxetine at max dose. She refuses follow up with psychiatry . No SI/HI. Insomnia 888110720 Stabl e. Patient asks for increase in trazodone. Denied based on prior history. Counselled on sleep hygiene and melatonin use as needed. She expressed understand ing. Dyspnea 030616494 Histor y of COPD. Based on what she discussed, likely that she was treated at her facility. She is likely improving, but has some residual lung pathology. If she gets a fever or worsening shortness of breath, she is to call for appointmen t or go to ER. Will add spacer to albuterol inhaler. Health Concerns Section Related Observation LastModified by Organization Detai ls LastModified Time None Recorded Concern Status LastModified by Organization Details LastModified Time None Recorded Advance Directives Directive None Recorded Payers Insurance Date Sequence Insurance Name Policy Number Policy Hutchins Covered Member ID Hutchins Member ID Guarantor Name 06/17/2016 2 [place]CON[place] WHEN MEDICARE OR MEDICARE REPLACEMENT PRIMARY) Gabbi Champagne [id number] Gabbi Champagne 06/17/2016 1 [place] Gabbi Champagne [id number] Gabbi Champagne 06/17/2016 [place] [facility] Gabbi Champagne [id number] Gabbi Champagne OBGyn Episode No OBEpisode recorded.
--- OUTSIDE RECORDS SUMMARY | 2025-03-16 16:44 | XMS_ITS | Clinical Summary ---
Author Organization [facility] [address] Address [address] [place] [address] Care Team Providers Care Feather Baler Name Role Phone Mack Vanegas DO Primary Care Provider +1- [phone] Allergies Active Allergy Reactions Criticality Noted Date [...] Active Active Problems No known active problems Surgical History Surgery Date Site/Laterality Comments FLUORO GUIDED ASPIRATION OR INJECTION LARGE JOINT BILATERAL 11/15/2022 Bilateral FLUORO GUIDED ASPIRATION OR INJECTION LARGE JOINT BILATERAL 02/14/2023 Bilateral IR INJECTION ARTHROGRAM SI J OINT RIGHT INCLUDES IMAGING GUIDANCE 03/23/2023 Right FLUORO GUIDED ASPIRATION OR INJECTION LARGE JOINT BILATERAL 06/19/2023 Bilateral Medical History Medical History Date Comments COPD (chronic obstructive pulmonary disease) (HC C) OA (osteoarthritis) Opioid dependence (HCC) Social History Tobacco Use Types Packs/Day Years Used Date Smoking Tobacco: Former Comments No Sex and Gender Information Value Date Recorded Sex Assigned at Not on file Legal Sex Female 2:33 AM 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 Gender Identity Not on file Sexual Orientation Not on file Obstetrics History Last Filed Vital Signs Vital Sign Reading [...] 02/03/2023 9:04 AM CDT Plan of Treatment Health Maintenance Due Date Last Done Comments Depression Screening 1945 Fall Risk Assessment 1945 Osteoporosis Screening-Bone Density Scan 1945 Hepatitis B Screening 01/02/1962 Well Visit 65+ 01/02/2009 Zoster Vaccine (2 of 3) 10/11/2013 08/16/2013 Covid-19 Vaccine (2023-2 5 season) 2024 11/19/2020, 10/29/2020 Influenza Vaccine (Season Ended) 2025 06/20/2020, 07/02/2019, 07/28/2018, Additional history exists DTaP/Tdap/Td Vaccine (3 - Td or Tdap) 05/06/2031 05/06/2021, 09/11/2013 Pneumococcal vaccine 65+ Completed 018, 07/09/2015, 07/28/2010 Insurance IDLA [facility] MEDICARE ADVANTAGE [facility] MEDICARE IDPA [facility] MEDICARE ADVANTAGE IDPA Advance Directives For more information, please contact: [phone] Documents on File Type Date Recorded Patient Monitoring Specialist Expl anation ADVANCE DIRECTIVE 02/09/2013 12:00 AM GREYSON Elizondo OF FOOD SERVICE AIDE FINANCIAL/MEDICAL Care Teams Feather Baler Relationship Specialty Start Date End Date Mack Vanegas DO PCP - General Internal Medicine 03/07/19
[2025-03-16 16:52] VITALS: BP 112/62; PULSE 88; RESP 20; TEMP 36.6; O2SAT 99
--- NOTE | 2025-03-16 16:53 | PC.NURSE ---
Pt arrives to intake with a PICC to right upper arm. She had a black bag containing a full bag of meropenum and an infusion pump that was beeping. This RN assessed the pump which stated air in line, with obvious amounts of air in tubing. Infusion pump was then turned off. Pt's PICC line dressing was also peeling off, PICC line was still secured in place. Reinforcement tape applied to dressing by boring machine operator to keep PICC secure until sterile dressing change can be done. Will also inform treatment team when pt gets to room.
--- OUTSIDE RECORDS SUMMARY | 2025-03-16 17:50 | XMS_ITS | Referral Summary ---
Author Organization [facility] [address] Address [address] [place] [address] Care Team Providers Care Banking Management Consulting Manager Name Role Phone Mack Vanegas DO Primary Care Provider +1- [phone] Allergies Active Allergy Reactions Criticality Noted Date [...] on file Legal Sex Female 2:33 AM KAIAWHINA Gender Identity Not on file Sexual Orientation [...] Plan of Treatment Not on file Insurance [facility] MEDICARE ADVANTAGE [facility] MEDICARE IDMI [facility] MEDICARE ADVANTAGE IDPA Advance Directives For more information, please contact: [phone] Documents on File Type Date Recorded Patient Blanket Inspector Expl anation ADVANCE DIRECTIVE 02/09/2013 12:00 AM GREYSON Elizondo OF LEASING COORDINATOR FINANCIAL/MEDICAL Care Teams Banking Management Consulting Manager Relationship Specialty Start Date End Date Mack Vanegas DO PCP - General Internal Medicine 03/07/19
--- OUTSIDE RECORDS SUMMARY | 2025-03-16 17:50 | XMS_ITS | Clinical Summary ---
Author Organization [facility] [address] Address [address] [place] [address] Care Team Providers Care Candle Wrapping Machine Operator Name Role Phone Mack Vanegas DO Primary Care Provider +1- [phone] Allergies Active Allergy Reactions Criticality Noted Date [...] on file Legal Sex Female 2:33 AM AUTOMATION TENDER Gender Identity Not on file Sexual Orientation [...] vaccine 65+ Completed 018, 07/09/2015, 07/28/2010 Insurance [place] [facility] MEDICARE ADVANTAGE [facility] MEDICARE IDPA [facility] MEDICARE ADVANTAGE [place] Advance Directives For more information, please contact: [phone] Documents on File Type Date Recorded Patient Warehouse Order Puller Expl anation ADVANCE DIRECTIVE 02/09/2013 12:00 AM GREYSON Elizondo OF PHONOGRAPH NEEDLE TIP MAKER FINANCIAL/MEDICAL Care Teams Candle Wrapping Machine Operator Relationship Specialty Start Date End Date Mack Vanegas DO PCP - General Internal Medicine 03/07/19
--- OUTSIDE RECORDS SUMMARY | 2025-03-16 17:50 | XMS_ITS ---
Author Organization [facility] Care Team Providers Care Mortar Carrier Name Role Phone Stephanie Groves Unavailable Unavailable Versjaylen, MariaE Unavailable Unavailable Bone, Ryan Gallegos Unavailable Unavailabl e Nyuguto, Mckenna Wakellieui Unavailable Unavaila ble Ampadu, Devan Maria Ines Unavailable Unavailable Ampadu, Geraldine Unavailable Unavailable Fahim, Magid Unavailable Unavailable Zeb, Luz Marina Unavailable Unavailable Allergies and adverse reactions No Known Allergies Care Team Name Role Address Phone Organization Dates Devan Kirk PCP [address] [place], [place], [facility], [facility] (Office): [facility] 08/20/2023 - 09/01/2023 Stephanie Groves [address] [place], [place], [facility], [place] (Office): [facility] 08/20/2023 - 09/01/2023 Maria E Uribe [address] [place], [address], [place] (Office): [facility] 08/20/2023 - 09/01/2023 Ryan Shaver [address] [place], [place], [facility], [facility] (Office): : [facility] [place] 08/20/2023 - 09/01/2023 Mckenna Hardwick [address] [place], [address], [place] (Office): : [facility] 08/20/2023 - 09/01/2023 Geraldine Kirk [address] [place], [address], [place] (Office): : [facility] 08/20/2023 - 09/01/2023 Kayode Myers [address] [facility], [place], [address], [place] (Office): [facility] 08/20/2023 - 09/01/2023 Luz Marina Carrington [address] [place], [address], [place] (Office): [facility] 08/20/2023 - 09/01/2023 Goals Section Goals Description [...] completed tuberculin skin test; unspecified formulation lotNumber: [id number] expiry: 02/22/2023 Given 0.1 ml Right Forearm subcutaneously 98 CVX created date: 3 consent date: 3 administe red date: 3 TB 1 Step Mantoux (PPD) completed tuberculin skin test; unspecified formulation lotNumber: [id number] expiry: 07/23/2022 Mfg: [employer] Given 0.1 [...] free, 30 mcg/0.3mL dose, tamika-sucrose formulation lotNumber: [id number] expiry: 11/29/2021 Mfg: Seqirus Given 0.3 ml [...] split virus, quadrivalent, injectable, preservative free lotNumber: [id number] expiry: 03/31/2024 Given 0.5 ml Right Deltoid intramuscularly 150 CVX created date: 3 consent date: 3 administe red date: 3 Educated by Rima Keller RN on 07/19/2023 Flucelvax (Influenza vaccine) completed Influenza, split virus, quadrivalent, injectable, preservative free lotNumber: [id number] expiry: 03/31/2023 Given Right Deltoid intramuscularly 150 CVX created date: 2 consent date: 2 administe red date: 2 Flucelvax (Influenza vaccine) completed Influenza, split virus, quadrivalent, injectable, preservative free lotNumber: [id number] expiry: 03/31/2022 Mfg: Seqirus Given 0.5 ml Left Deltoid intramuscularly 150 CVX created date: 1 consent date: 1 administe red date: 1 Resident tolerated well. SARS-COV-2 Bivalent Booster- Pfizer completed SARS-COV-2 (COVID-19) vaccine, mRNA, spike protein, LNP, bivalent, preservative free, 30 mcg/0.3 mL dose, tamika-sucrose formulation lotNumber: [id number] expiry: 05/02/2023 Given Left Deltoid intramuscularly 300 CVX created date: 2 consent date: 2 administe red date: 2 Pneumovax (PCV 20) completed Pneumococcal conjugate vaccine 20-valent (PCV20), polysaccharide [id number] conjugate, adjuvant, preservative free lotNumber: [id number] expiry: 07/01/2023 Given Left Deltoid intramuscularly 216 CVX created date: 2 consent date: 2 administe red date: 2 series complete vaccinated for life 1527-8209 COVID Vaccine (Moderna Spikevax) new SARS-COV-2 (COVID-19) vaccine, mRNA, spike protein, LNP, preservative free, 50 mcg/0.5 mL dose 312 CVX created date: 3 consent date: 3 Educated by Rima Keller RN on 09/05/2023 Medications Section Medication Name Status Code CodeSystem Dose Route Frequency Admin Type Sig Text Start Date End Date Carvedilol Tablet 3.125 MG active 762220 RXNORM 1 tablet Oral two times a day Routine Give 1 tablet by mouth two times a day for Hypert ension 2021 - Benzonatate Capsule 200 MG active 680795 RXNORM 1 capsul e Oral as needed PRN Give 1 capsul e by mouth every 8 hours as needed for Cough relate d to COUGH (R05) Please give TID 2021 - Folic Acid Tablet 1 MG active 366859 RXNORM 1 tablet Oral in the morning [...] 2021 - Creon Capsule Delayed Release Particles 66752-32956 UNIT active 546004 RXNORM 2 capsul e Oral with meals Routine Give 2 capsul e by mouth with meals relate d to OTHER CHRONI C PANCRE ATITIS (K86.1 ) 2021 - Atorvastatin Calcium Tablet 80 MG active 734506 RXNORM 1 tablet Oral one time a [...] 2021 - Bisacodyl Suppository 10 MG active 674103 RXNORM 1 suppos itory Rectal as needed PRN Insert 1 suppos itory rectal ly every 24 hours as needed for for consti pation daily if no result s from MOM 2021 - Milk of Magnesia Suspension 400 MG/5ML active 675805 RXNORM 30 ml Oral as needed PRN Give 30 ml by mouth every 24 hours as needed for Consti pation at bedtim e if NO BM in 3 days 2021 - Pregabalin Capsule 150 MG active 988501 RXNORM 1 capsul e Oral two times [...] - Cetirizine HCl Tablet 10 MG active 6739923 RXNORM 1 tablet Oral one time a day Routine Give 1 tablet by mouth one time a day relate d to OTHER ALLERG Y, INITIA L ENCOUN TER (T78.4 9XA) 2021 - Milk of Magnesia Suspension 1200 MG/15ML active 415918 RXNORM 400 mg Oral as needed PRN Give 400 mg by mouth every 72 hours as needed for consti pation 2021 - Ondansetron HCl Tablet 4 MG active 421895 RXNORM 1 tablet Oral as needed PRN Give 1 tablet by mouth every 6 hours as needed for Nausea and Vomiti ng 2021 - FerrouSul Tablet active 1 tablet Oral three times a day Routine Give 1 tablet by mouth three times a day relate d to ANEMIA , UNSPEC IFIED (D64.9 ) 2021 - Protonix Tablet Delayed Release 40 MG active 746191 RXNORM 1 tablet Oral one time a day Routine Give 1 tablet by mouth one time a day relate d to GASTRO -ESOPH AGEAL REFLUX DISEAS E WITHOU T ESOPHA GITIS (K21.9 ) 2021 - Furosemide Tablet 40 MG active 035077 RXNORM 1 tablet Oral one time a day Routine Give 1 tablet by mouth one time a day for CHF 2021 - Ipratropium-A lbuterol Solution 0.5-2.5 (3) MG/3ML active 0184764 RXNORM 1 vial Inhalat ion four times a day Routine 1 vial inhale orally four times a day for wheezi ng relate d to CHRONI C OBSTRU CTIVE PULMON SHINE DISEAS E, UNSPEC IFIED (J44.9 ) 2021 - traZODone HCl Tablet 150 MG active 834029 RXNORM 150 mg Oral at bedtime Routine Give 150 mg by mouth at bedtim e for insomn ia give with 100mg to equal 250mg 2021 - buPROPion HCl Tablet active 75 mg Oral in the morning Routine Give 75 mg by mouth in the [facility] relate d to MAJOR DEPRES SIVE DISORD ER, RECURR ENT, 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 ) 2021 - Vitamin D3 Tablet active 1000 IU Oral one time a day Routine Give 1000 IU by mouth one time a day relate d to VITAMI N D DEFICI ENCY, UNSPEC IFIED (E55.9 ) 2021 - HYDROcodone-A cetaminophen Oral Tablet 5-325 MG active 939617 RXNORM 1 tablet Oral as needed PRN Give 1 tablet by mouth every 12 hours as needed for modera te to severe pain 2022 - Anoro Ellipta Inhalation Aerosol Powder Breath Activated 62.5-25 MCG/ACT active 6458179 RXNORM 1 inhala tion Inhalat ion in the morning Routine 1 [facility]a [facility] relate d to CHRONI C RESPIR ATORY FAILUR E WITH HYPOXI A (J96.1 1) 2022 - Meloxicam Oral Capsule 10 MG active 9113134 RXNORM 1 capsul e Oral one time a day Routine Give 1 capsul e by mouth one time a day for Pain 2022 - Eliquis Tablet 2.5 MG active 4817845 RXNORM 1 tablet Oral two times a day Routine Give 1 tablet by mouth two times a day for Prophy laxis 2022 - Voltaren External Gel 1 % active 758886 RXNORM n/a n/a Topical as needed PRN Apply to bilate ral knees topica lly as needed for knee pain apply 4.5in( 2g) gel QID prn 2022 - Loperamide HCl Capsule 2 MG active 956085 RXNORM 1 capsul e Oral as needed PRN Give 1 capsul e by mouth every 12 hours as needed for diarrh ea after each loose stool 2022 - Flonase Allergy Relief Nasal Suspension 50 MCG/ACT active 3877679 RXNORM 2 spray Nasal one time a [...] Code CodeSystem Concern Status 1 COVID-[address] active 2 ENTEROCOLITIS DUE TO CLOSTRIDIUM DIFFICILE, NOT SPECIFIED RECURRENT [address] active 3 LOCAL INFECTION OF THE SKIN AND SUBCUTANEOUS TISSUE, UNSPECIFIED 023 07/08/[address] completed 4 OTHER ABNORMALITIES OF GAIT AND MOBILITY [address] active 5 MUSCLE WEAKNESS (GENERALIZED) [address] active 6 STIFFNESS OF UNSPECIFIED JOINT, NOT ELSEWHERE CLASSIFIED [address] active 7 MUSCLE WEAKNESS (GENERALIZED) 023 02/08/[address] completed 8 STIFFNESS OF LEFT SHOULDER, NOT ELSEWHERE CLASSIFIED 023 02/08/[address] completed 9 STIFFNESS OF RIGHT SHOULDER, NOT ELSEWHERE CLASSIFIED 023 02/08/[address] completed 10 COGNITIVE COMMUNICATION DEFICIT 023 02/08/[address] completed 11 PAIN IN LEFT SHOULDER [address] active 12 PAIN IN RIGHT SHOULDER [address] active 13 COVID-19 023 10/15/[address] completed 14 PNEUMONIA, UNSPECIFIED ORGANISM 022 09/01/[address] completed 15 VITAMIN D DEFICIENCY, UNSPECIFIED 47550686 SNOMED CT active 16 LOW BACK PAIN, UNSPECIFIED 975518502 SNOMED CT active 17 ENCEPHALOPATHY, UNSPECIFIED 10/26/[address] completed 18 ACUTE CYSTITIS WITHOUT HEMATURIA 08/10/[address] completed 19 DERMATOPHYTOSIS, UNSPECIFIED 93535127 SNOMED CT active 20 OTHER NEUROMUSCULAR DYSFUNCTION OF BLADDER 347248717 SNOMED CT active 21 PERSONAL HISTORY OF COVID-19 08/01/[address] completed 22 PNEUMONIA DUE TO CORONAVIRUS DISEASE 2019 09/01/[id number] completed 23 INSOMNIA, UNSPECIFIED 741932259 SNOMED CT active 24 CONTUSION OF UNSPECIFIED PART OF HEAD, SUBSEQUENT ENCOUNTER 08/10/[address] completed 25 COVID-19 021 07/06/[address] completed 26 COVID-19 021 08/03/[address] completed 27 ACUTE AND CHRONIC RESPIRATORY FAILURE WITH HYPOXIA 01276276446245590 SNOMED CT active [address] active 29 METABOLIC ENCEPHALOPATHY 04/21/[address] completed 30 OTHER LACK OF COORDINATION 08/10/[address] completed 31 PAIN IN LEFT WRIST [address] active 32 ALTERED MENTAL STATUS, UNSPECIFIED 08/10/[address] completed 33 CHRONIC RESPIRATORY FAILURE WITH HYPOXIA 452065791 SNOMED CT active 34 ELEVATED WHITE BLOOD CELL COUNT, UNSPECIFIED 021 08/10/[address] completed 35 ENTEROCOLITIS DUE TO CLOSTRIDIUM DIFFICILE, NOT SPECIFIED RECURRENT 021 09/02/[address] completed 36 ENTEROCOLITIS DUE TO CLOSTRIDIUM DIFFICILE, RECURRENT 021 08/10/[address] completed 37 EXOCRINE PANCREATIC INSUFFICIENCY 48737438 SNOMED CT active 38 INTERSTITIAL PULMONARY DISEASE, UNSPECIFIED 460922715 SNOMED CT active 39 LYMPHEDEMA, NOT ELSEWHERE CLASSIFIED 770383256 SNOMED CT active 40 NONINFECTIVE GASTROENTERITIS AND COLITIS, UNSPECIFIED 021 08/10/[address] completed 41 OTHER ABNORMALITIES OF GAIT AND MOBILITY 021 08/10/[address] completed 42 OTHER NONSPECIFIC ABNORMAL FINDING OF LUNG FIELD 286395912 SNOMED CT active 43 SEPSIS, UNSPECIFIED ORGANISM 021 05/04/[address] completed 44 SEPSIS, UNSPECIFIED ORGANISM 021 06/16/[address] completed 45 TOBACCO USE 021 04/24/2023 Z72.0 ICD-10-CM completed 46 UNILATERAL PRIMARY OSTEOARTHRITIS, RIGHT HIP 021 09/01/[address] completed 47 UNSPECIFIED PROTEIN-CALORIE MALNUTRITION 021 07/12/[address] completed 48 AGE-RELATED OSTEOPOROSIS WITHOUT CURRENT PATHOLOGICAL FRACTURE 11198921 SNOMED CT active 49 ALLERGIC RHINITIS, UNSPECIFIED [address] active 50 ANEMIA, UNSPECIFIED 021 09/01/[address] completed 51 ANXIETY DISORDER, UNSPECIFIED [address] active 52 BILATERAL PRIMARY OSTEOARTHRITIS OF HIP [address] active 53 BRONCHITIS, NOT SPECIFIED ACUTE OR CHRONIC [address] active 54 CHRONIC OBSTRUCTIVE PULMONARY DISEASE, UNSPECIFIED [address] active 55 COUGH 021 07/01/[address] completed 56 DEMENTIA IN OTHER DISEASES CLASSIFIED ELSEWHERE, UNSPECIFIED SEVERITY, WITHOUT BEHAVIORAL DISTURBANCE, PSYCHOTIC DISTURBANCE, MOOD DISTURBANCE, AND ANXIETY 400719141 SNOMED CT active 57 DIFFICULTY IN WALKING, NOT ELSEWHERE CLASSIFIED 08/10/[address] completed 58 DISORIENTATION, UNSPECIFIED 021 09/01/[address] completed 59 DIZZINESS AND GIDDINESS [address] active 60 EMPHYSEMA, UNSPECIFIED [address] active 61 ESSENTIAL (PRIMARY) HYPERTENSION [address] active 62 FOLATE DEFICIENCY ANEMIA, UNSPECIFIED 64003531 SNOMED CT active 63 FRONTAL LOBE AND EXECUTIVE FUNCTION DEFICIT 021 02/08/[address] completed 64 GASTRO-ESOPHAGEAL REFLUX DISEASE WITHOUT ESOPHAGITIS 638703320 SNOMED CT active 65 HEART FAILURE, UNSPECIFIED 61331547 SNOMED CT active 66 HYPERLIPIDEMIA, UNSPECIFIED [address] active 67 LACERATION WITHOUT FOREIGN BODY OF LEFT FOREARM, SUBSEQUENT ENCOUNTER 08/10/[address] completed 68 LOW BACK PAIN 021 07/01/[address] completed 69 MAJOR DEPRESSIVE DISORDER, RECURRENT, UNSPECIFIED [address] active 70 MUSCLE WEAKNESS (GENERALIZED) 08/10/[address] completed 71 NAUSEA 021 10/05/[address] completed 72 NAUSEA WITH VOMITING, UNSPECIFIED 021 08/10/[address] completed 73 OTHER CHRONIC PANCREATITIS 421616148 SNOMED CT active 74 OTHER INTERVERTEBRAL DISC DISPLACEMENT, LUMBAR REGION 290931991 SNOMED CT active 75 OTHER OSTEOPOROSIS WITHOUT CURRENT PATHOLOGICAL FRACTURE 021 09/01/[address] completed 76 OTHER SPECIFIED ARTHRITIS, UNSPECIFIED SITE [address] active 77 OTHER SYMPTOMS AND SIGNS INVOLVING COGNITIVE FUNCTIONS AND AWARENESS 021 09/01/[address] completed 78 OVERACTIVE BLADDER 704191700 SNOMED CT active 79 PERIPHERAL VASCULAR DISEASE, UNSPECIFIED 639217864 SNOMED CT active 80 PERSONAL HISTORY OF TRANSIENT ISCHEMIC ATTACK (TIA), AND CEREBRAL INFARCTION WITHOUT RESIDUAL DEFICITS 07885075 SNOMED CT active 81 PNEUMONIA, UNSPECIFIED ORGANISM 021 06/16/[address] completed 82 REPEATED FALLS 750757107 SNOMED CT active 83 RESTLESS LEGS SYNDROME 77818869 SNOMED CT active 84 STRAIN OF MUSCLE, FASCIA AND TENDON OF RIGHT HIP, SUBSEQUENT ENCOUNTER 08/10/[address] completed 85 STRAIN OF UNSPECIFIED MUSCLE(S) AND TENDON(S) AT LOWER LEG LEVEL, RIGHT LEG, SUBSEQUENT ENCOUNTER 021 08/10/[address] completed 86 UNSPECIFIED FALL, SUBSEQUENT ENCOUNTER 08/10/[address] completed 87 URINARY TRACT INFECTION, SITE NOT SPECIFIED 03/17/[address] completed Reason for Referral No Reasons for Referral Entered Social History Social History Observation Description Start Date End Date Code Code System Current Smoking Status Tobacco smoking consumption unknown 044776905 SNOMED CT Sex Assigned At Female 1945 08532-6 [facility] Gender Identity Vital Signs Code Code System Vitals Name Values and Units Timing Information 07254-2 [facility] Pain Level Value=5.0 09/11/2023 8462-4 [facility] Blood Pressure-Diastolic Value=76 Un its=mmHg 09/08/2023 8480-6 [facility] Blood Pressure-Systolic Cxomx=942 Un its=mmHg 09/08/2023 9279-1 [facility] Respiratory Rate Value=16.0 Units=/m in 09/08/2023 8867-4 [facility] Heart rate Value=76.0 Units=/min 05/2023 8310-5 [facility] Body Temperature Value=98.0 Units= F 09/08/2023 39358-9 [facility] O2 % BldC Oximetry Value=99.0 Units= % 09/08/2023 78508-7 [facility] Weight Yneoe=446.8 Units=Lbs 2339-0 [facility] Blood Sugar Value=20.0 Units=mg/dL 10/14/2021 8302-2 [facility] Height Value=62.0 Units=Inches 10/13/2021
--- OUTSIDE RECORDS SUMMARY | 2025-03-16 17:50 | XMS_ITS | Clinical Summary ---
Author Organization [facility] Address [address] [place] [address] Care Team Providers Care Plasma Table Operator Name Role Phone PastoradruMack montanez DO Primary Care Provider Source Comments [facility],non-owned Affiliates and Associated Physician Practices is amultiple site organization consisting of ambulatory clinics and hospital sitesin [place], [place], [place] and [place]. This disclosure is being madepursuant to the Care Everywhere program and may not contain all information available regarding this patient. Last updated 18.[facility] Allergies Active Allergy Reactions Criticality Noted Date [...] 40 MG tablet 11/05/2024 Active HYDROcodone-pool taminophen ([place]) 10-325 MG tablet 11/22/2024 Active albuterol-iprat ropium [...] Description 03/05/2025 1:00 PM CDT Office Visit 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 Gender Identity Not on file Sexual Orientation [...] Visit [facility] - Pulmonology [address] [place] [address] Priyank Larsen MD [facility] [facility] [place] [address] Health Maintenance Due Date Last Done Comments [...] Procedure Name Priority Date/Time Associated Diagnosis Comments DE DRAIN INJ MAJOR JOINT BURSA W US Routine 03/05/2025 2:21 PM CDT Osteoarthritis of right glenohumeral joint from Last 3 Months Results * DE DRAIN INJ MAJOR JOINT BURSA W US [...] Result from Last 3 Months Insurance MEDICARE [facility] MEDICARE [facility] Care Teams Plasma Table Operator Relationship Specialty Start Date End Date Mack Vanegas DO [address] [place] [id number] PCP - General Internal Medicine 11/27/24
--- OUTSIDE RECORDS SUMMARY | 2025-03-16 17:50 | XMS_ITS | Encounter Summary ---
Author Organization [facility] Healthcare Address [address] [place] [address] Care Team Providers Care Napper Grinder Name Role Phone Mack Vanegas DO Primary Care Provider [phone] Encounter Details Date Type Department Care Team (Late st Contact Info) Description 02/10/2023 Telephone 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
[2025-03-16 17:55] VITALS: BP 106/72; PULSE 80; RESP 20; TEMP 36.6; O2SAT 98
--- NOTE | 2025-03-16 18:14 | ED_ITS ---
HPI - Extremity Problem General Chief complaint: Extremity Problem,Nontraumatic Stated complaint: right hip and back pain Time Seen by Provider: 03/16/25 17:37 History of Present Illness HPI Narrative: 80-year-old female with a history of dementia, prior CVA, interstitial lung disease and COPD on baseline oxygen, heart failure. Patient is chronically anticoagulated with apixaban low-dose. Patient presents to the emergency department for complaints of right hip pain. She has focal reproducible pain with palpation of the lateral posterior aspect of the right hip with electrical sensations down her right leg but no weakness or saddle anesthesia. She is able to move both her lower extremities without difficulty and she has full strength and sensation throughout both legs. No saddle anesthesias. His a history of incontinence which is not new. Denies any midline back pain. She states she fell in the shower 3 days ago. X-rays were done at her nursing facility which were unremarkable patient was still complaining of pain so she was transferred to the hospital. Family member who is her power of discovery manager states that they did spinal x-rays but not hip x-rays. Patient self is no other complaints besides right lateral hip pain with ?electrical sensations ? going down her leg sometimes. No documented history of sciatica. Related Data Home Medications ?Medication ?Instructions ?Recorded ?Confirmed ?Last Taken ?Type acetaminophen 650 mg 650 mg PO Q6H PRN Mild Pain (Scale 10/09/21 08/23/24 Unknown History tablet,extended release Score 1-4) benzonatate 200 mg capsule 200 mg PO Q8H PRN Cough 10/09/21 08/23/24 Unknown History carvedilol 3.125 mg tablet (Coreg) 3.125 mg PO BID 10/09/21 08/23/24 Unknown History magnesium hydroxide 400 mg/5 mL 400 mg PO Q72H PRN Constipation 10/09/2108/23 Unknown History oral suspension (Milk of Magnesia) magnesium oxide 400 mg (241.3 mg 400 mg PO DAILY 10/09/21 08/23/24 Unknown History magnesium) tablet ondansetron 4 mg disintegrating 4 mg PO Q6H PRN nausea and 10/09/21 08/23/24 Unknown History tablet vomitting trazodone 300 mg tablet 250 mg PO HS 10/09/21 08/23/24 Unknown History apixaban 2.5 mg tablet (Eliquis) 2.5 mg PO BID 01/12/23 08/23/24 Unknown History bupropion HCl 75 mg tablet 75 mg PO DAILY 01/12/23 08/23/24 Unknown History furosemide 40 mg tablet 40 mg PO QAM 01/12/23 08/23/24 Unknown History guaifenesin 600 mg tablet, 600 mg PO BID 01/12/23 08/23/24 Unknown History extended release 12 hr pantoprazole 40 mg tablet,delayed 40 mg PO QAM 01/12/23 08/23/24 Unknown History release (Protonix) sodium phosphates 19 gram-7 118 ml RECTAL ONCE PRN Constipation 01/12/23 08/23/24 Unknown History gram/118 mL enema (Fleet Enema) hydrocodone 5 mg-acetaminophen 325 1 tablet PO BID PRN Pain (Scale 05/24/23 08/23/24 Unknown History mg tablet Score 7-10) meloxicam submicronized 10 mg 10 mg PO DAILY 05/24/23 08/23/24 Unknown History capsule umeclidinium 62.5 mcg-vilanterol 1 inh inhalation DAILY 08/16/23 08/23/24 Unknown History 25 mcg/actuation powdr for inhalation (Anoro Ellipta) albuterol sulfate 2.5 mg/3 mL 2.5 mg inhalation QID PRN SOB 04/18/24 08/23/24 Unknown History (0.083 %) solution for nebulization azelastine 137 mcg (0.1 %) nasal 137 mcg intranasal BID 04/18/24 08/23/24 Unknown History spray famotidine 20 mg tablet 20 mg PO BID 04/18/24 08/23/24 Unknown History omega 5-gdh-squ-fish oil 1,000 mg 1 cap PO DAILY 04/18/24 08/23/24 Unknown History (120 mg-180 mg) capsule (Fish Oil) albuterol sulfate 90 mcg/actuation 1 inh inhalation Q4-6H PRN sob 04/21/24 08/23/24 Unknown History breath activated powder inhaler wheezing artificial tears solution eye drops 1 drp ophthalmic (eye) BID dry eyes 04/21/24 08/23/24 Unknown History cholecalciferol (vitamin D3) 25 25 mcg PO DAILY 04/21/24 08/23/24 Unknown History mcg (1,000 unit) tablet diclofenac sodium 1 % topical gel 2 g topical QID PRN knee pain 04/21/24 08/23/24 Unknown History emollient combination no.110 1 ea topical DAILY 04/21/24 08/23/24 Unknown History (Eucerin Intensive Repair lotion) hydrocortisone 2.5 % topical cream 1 applic topical QID PRN Itching 04/21/24 08/23/24 Unknown History ipratropium 0.5 mg-albuterol 3 mg 3 ml inhalation Q6H PRN SOB 04/21/24 08/23/24 Unknown History (2.5 mg base)/3 mL nebulization soln [id number] 2 cap PO TID 04/21/24 08/23/24 Unknown History 24,000-76,000-120,000 unit capsule,delayed rel (Creon) loperamide 2 mg capsule 2 mg PO Q12H PRN Diarrhea 04/21/24 08/23/24 Unknown History Allergies Allergy/AdvReac Type Severity Reaction Status Date / Time ceftriaxone (From Rocephin) Allergy Intermediate Rash Verified 03/16/25 18:01 Sulfa (Sulfonamide Allergy Intermediate Rash Verified 03/16/25 18:01 Antibiotics) morphine AdvReac Mild Hallucinati Verified 03/16/25 18:01 ng Review of Systems Review of Systems: As reviewed above in [facility] Past Medical History Medical History Pulmonary embolism (06/2021) Pulmonary arterial hypertension Chronic interstitial lung disease Overactive bladder Peripheral vascular disease Cerebrovascular accident Anemia of chronic disease Clostridium difficile diarrhea Prediabetes Hyperlipidemia Hypertension History of peptic ulcer Gastroesophageal reflux disease Chronic respiratory failure with hypoxia and hypercapnia On 2 to 3 L nasal cannula. Chronic obstructive pulmonary disease Diastolic congestive heart failure Pneumonia due to 2019-nCoV (06/11/21) Exocrine pancreatic insufficiency Migraine Herniated disc Osteoporosis Anxiety Depression Arthritis GI bleed Pancreatitis Emphysema of lung Dementia Surgical History Surgical History History of neck surgery (2001) History of tonsillectomy History of bladder suspension procedure History of lumbar fusion x2 History of hysterectomy History of tubal ligation History of cholecystectomy History of cardiac cath History of vascular surgery Left lower extremity. Family History Family History Father Family history of Parkinson's disease Sibling Patient's brother is in good health Mother Family history of chronic obstructive pulmonary disease Family history of pancreatic cancer Social History Social History Social History: Surrogate decision maker: Stefanie Finney, granddaughter. Code status: Full code. Smoking packs per day: 1 Smoking cigarettes per day: 20.0 Years smoked: 30 Smoking pack-years: 30.00 Smoking status: Former smoker Second hand tobacco smoke exposure: Yes Alcohol intake: never Substance use: never Do You Feel Safe in your Home?: Yes Lack of Transportation: No Lack of Food: Never True Current Housing: I Have Housing Concerned About Future Housing: No Difficulty Paying Gas/Electric Bills: No Difficulty Paying for Meds: No Currently Unemployed: No Education: High School Diploma/GED Difficulty w/ Childcare or Family Care: No Living arrangements: [facility]pc Additional living arrangements comments: Resident of [facility]. Additional occupation/education comments: Retired. Spiritual care concerns: No Exam Narrative: GENERAL: Elderly and frail but not any acute distress, on chronic oxygen HEAD: [Normocephalic, atraumatic.] EYES: [PERRLA and EOMI.] ENT: Nares clear, no rhinorrhea or epistaxis. Mucous membranes moist. NECK: Supple. CHEST: [Clear to auscultation. No respiratory distress.] HEART: [Regular rate and rhythm]. No murmur heard. [Normal peripheral pulses.] ABDOMEN: [Soft, nondistended], [nontender], [No rigidity or guarding] EXTREMITIES: Normal range of motion of both lower extremities with flexion extension full at the hips, knee and ankle. Reproducible lateral tenderness to palpation over the hip without any step-offs deformities to the joints. Ankle plantar and dorsiflexion 5/5, EHL and FHL 5/5. No midline tenderness to the spinal column or coccyx. SKIN: Warm, dry, no rash. NEURO: [No focal deficits]. Alert and oriented at baseline. No saddle anesthesias, weakness or sensory deficits. PSYCH: [Normal mood and affect.] Course Vital Signs Vital signs: Vital Signs Temperature 36.6 C 03/16/25 16:52 Pulse Rate 88 03/16/25 16:52 Respiratory Rate 20 03/16/25 16:52 Blood Pressure 112/62 03/16/25 16:52 Pulse Oximetry 99 03/16/25 16:52 Oxygen Delivery Nasal Cannula 03/16/25 16:52 Oxygen Flow Rate 3 03/16/25 16:52 Temperature 36.6 C 03/16/25 17:55 Pulse Rate 80 03/16/25 17:55 Respiratory Rate 20 03/16/25 17:55 Blood Pressure 106/72 03/16/25 17:55 Pulse Oximetry 98 03/16/25 17:55 Oxygen Delivery Room Air 03/16/25 17:55 Oxygen Flow Rate 3 03/16/25 16:52 MDM - Extremity (Nontraumatic) MDM Narrative Medical decision making narrative: 80-year-old female presenting with right-sided lateral hip pain after an injury/fall 3 days ago. She is otherwise well-appearing not any acute distress and has normal vital signs. X-rays of her spine were done her facility but negative. Patient requested transfer the hospital. She has strong symmetric pulses in both her legs, neurologically intact at her baseline mentation with examination showing Normal range of motion of both lower extremities with flexion extension full at the hips, knee and ankle. Reproducible lateral tenderness to palpation over the hip without any step-offs deformities to the joints. Ankle plantar and dorsiflexion 5/5, EHL and FHL 5/5. No midline tenderness to the spinal column or coccyx. Differential includes contusion, occult fracture, acetabular fracture, dislocation less likely. Reproducible pain with electrical sensations could also very well be sciatica or other impingement of the nerve but her neurological examination is reassuring. No midline tenderness or concern for cauda equina/conus medullaris. X-rays of the hip and pelvis were obtained with multiple views. She was given [place] for analgesia as well as lidocaine patch and re-evaluated. Patient re-evaluated had significant analgesia for the medications and lidocaine patch. She was enquiring about something to help her sleep so we offered Robaxin as well. Her x-rays were independently reviewed and also interpreted by Radiology without any acute osseous fractures or dislocation. Discussed with her that she likely has a significant bone bruise given the pinpoint area of pain but no intervenable lesions or fractures on x-ray. Given patient's symptomatic improvement and unremarkable workup she can be safely discharged home. She will go back to her nursing facility with prescriptions for Robaxin and lidocaine patches. Discussed with the family member at bedside who felt comfortable with the plan and will drive her home herself. Patient also felt comfortable going back at this time. Discharge Plan Discharge Clinical Impression: Acute hip pain, Bone bruise Patient Disposition: NH Skilled Nursing/Asst Living Condition: Stable Instructions: Antibiotic Form, Contusion in Adults (ED), Bone Bruise (ED) Additional Instructions: Your x-rays were reassuring that you did not fracture or break/dislocated anything. You likely have a significant bone bruise. We will send you home with Robaxin and lidocaine patches. Follow-up with your regular doctor, return with any persistent or worsening concerns. Patient Language: Cook Islander Prescriptions: New methocarbamol 750 mg tablet 750 mg PO TID PRN (Reason: pain) Qty: 20 0RF lidocaine 5 % adhesive patch,medicated 1 patch topical DAILY Qty: 15 0RF Rx Instructions: leave on most painful area for up to 12 hrs methocarbamol 750 mg tablet 750 mg PO TID PRN (Reason: pain) Qty: 20 0RF lidocaine 5 % adhesive patch,medicated 1 patch topical DAILY Qty: 15 0RF Rx Instructions: leave on most painful area for up to 12 hrs No Action pregabalin [Lyrica] 150 mg capsule 150 mg PO BID Qty: 60 3RF guaifenesin 600 mg tablet extended release 12hr 600 mg PO BID bupropion HCl 75 mg tablet 75 mg PO DAILY Eliquis 2.5 mg tablet 2.5 mg PO BID Fleet Enema 19-7 gram/118 mL enema 118 ml RECTAL ONCE PRN (Reason: Constipation) furosemide 40 mg tablet 40 mg PO QAM pantoprazole [Protonix] 40 mg tablet,delayed release (DR/EC) 40 mg PO QAM hydrocodone-acetaminophen 5-325 mg tablet 1 tablet PO BID PRN (Reason: Pain (Scale Score 7-10)) meloxicam submicronized 10 mg capsule 10 mg PO DAILY albuterol sulfate 2.5 mg /3 mL (0.083 %) solution for nebulization 2.5 mg inhalation QID PRN (Reason: SOB) azelastine 137 mcg (0.1 %) spray,non-aerosol 137 mcg intranasal BID famotidine 20 mg tablet 20 mg PO BID omega 5-uif-fei-fish oil [Fish Oil] 1,000 mg (120 mg-180 mg) capsule 1 cap PO DAILY potassium chloride 20 mEq tablet extended release 20 meq PO DAILY Qty: 30 0RF carvedilol [Coreg] 3.125 mg Tablet 3.125 mg PO BID benzonatate 200 mg Capsule 200 mg PO Q8H PRN (Reason: Cough) acetaminophen 650 mg Tablet Extended Release 650 mg PO Q6H PRN (Reason: Mild Pain (Scale Score 1-4)) magnesium hydroxide [Milk of Magnesia] 400 mg/5 mL Suspension 400 mg PO Q72H PRN (Reason: Constipation) ondansetron 4 mg Tablet,Disintegrating 4 mg PO Q6H PRN (Reason: nausea and vomitting) magnesium oxide 400 mg (241.3 mg magnesium) tablet 400 mg PO DAILY Rx Instructions: for hypomagnesia trazodone 300 mg tablet 250 mg PO HS Anoro Ellipta 62.5-25 mcg/actuation blister with device 1 inh INHALATION DAILY Eucerin Intensive Repair Lotion 1 ea TOPICAL DAILY Rx Instructions: general dry skin loperamide 2 mg Capsule 2 mg PO Q12H PRN (Reason: Diarrhea) cholecalciferol (vitamin D3) 25 mcg (1,000 unit) Tablet 25 mcg PO DAILY diclofenac sodium 1 % Gel 2 g TOPICAL QID PRN (Reason: knee pain) Rx Instructions: bilateral knee pain ipratropium-albuterol 0.5 mg-3 mg(2.5 mg base)/3 mL Solution For Nebulization 3 ml INHALATION Q6H PRN (Reason: SOB) hydrocortisone 2.5 % Cream 1 applic TOPICAL QID PRN (Reason: Itching) Rx Instructions: affected areas Creon 24,000-76,000 -120,000 unit Capsule,Delayed Release(Dr/Ec) 2 cap PO TID Rx Instructions: administer with meals and/or snacks artificial tears solution Drops 1 drp OPHTHALMIC (EYE) BID albuterol sulfate 90 mcg/actuation Aerosol Powdr Breath Activated 1 inh INHALATION Q4-6H PRN (Reason: sob wheezing) cefdinir 300 mg Capsule 300 mg PO Q12H Qty: 14 0RF Dificid 200 mg Tablet 200 mg PO Q12HR Qty: 19 0RF levofloxacin 750 mg tablet 750 mg PO DAILY Qty: 7 0RF cetirizine [Zyrtec] 10 mg tablet 10 mg PO DAILY Qty: 90 1RF ferrous sulfate 325 mg (65 mg iron) tablet 325 mg PO DAILY Qty: 90 2RF folic acid 1 mg tablet 1 mg PO DAILY Qty: 90 2RF atorvastatin 80 mg tablet 80 mg PO DAILY Qty: 90 2RF Follow-up/Referrals: Mariano Walker MD [Primary Care Provider] - Stand Alone Forms: [facility] Discharge Time of Disposition: 19:44
[2025-03-16] MEDS: HYDROcodone/acetaminophen (*CRX) 5-325 MG TABLET 1 TAB PO (18:21)
[2025-03-16] MEDS: LIDOCAINE 5% PATCH 1 PATCH TRANSDERM (18:21)
[2025-03-16] MEDS: methocarbamoL 750 MG TABLET PO (20:28)
[2025-03-16 20:50] VITALS: BP 115/94; PULSE 95; RESP 15; TEMP 36.6; O2SAT 98
--- NOTE | 2025-03-16 21:02 | PC.NURSE ---
report to kyrie worthington
[2025-03-16 23:17] VITALS: BP 133/72; PULSE 69; RESP 17; O2SAT 100
--- NOTE | 2025-03-16 23:22 | PC.NURSE ---
Report received from JENNIFER Wells. Assumed care of patient at this time. Patient waiting for EMS to arrive to transport patient back to facility.
--- NOTE | 2025-03-17 00:02 | PC.NURSE ---
Patient calls out requesting her home dose of norco, since I won't be able to get it when I get back, and it is time for me to get it. ERP notified and order placed.
[2025-03-17] MEDS: HYDROcodone/acetaminophen (*CRX) 5-325 MG TABLET 1 TAB PO (00:13)
--- NOTE | 2025-03-17 00:41 | PC.NURSE ---
Patients brief changed upon request. Patient as able to assist with brief change. Call light within reach.
[2025-03-17 02:47] VITALS: BP 140/75; PULSE 78; RESP 17; O2SAT 97
[2025-03-17 03:19] VITALS: BP 147/80; PULSE 71; RESP 18; O2SAT 97
== END 2025-03-17 05:29 ==
PROVIDERS: Emergency Provider Student in an Organized Health Care Education/Training Program; PCP Family Medicine
DX: S70.01XA Contusion of right hip, initial encounter (principal); I50.30 Unspecified diastolic (congestive) heart failure; I11.0 Hypertensive heart disease with heart failure; I73.9 Peripheral vascular disease, unspecified; J43.9 Emphysema, unspecified; J84.9 Interstitial pulmonary disease, unspecified; J96.11 Chronic respiratory failure with hypoxia; J96.12 Chronic respiratory failure with hypercapnia; F03.90 Unspecified dementia, unspecified severity, without behavioral disturbance, psychotic disturbance, mood disturbance, and anxiety; E78.5 Hyperlipidemia, unspecified; N32.81 Overactive bladder; D63.8 Anemia in other chronic diseases classified elsewhere; R73.03 Prediabetes; K86.81 Exocrine pancreatic insufficiency; M81.0 Age-related osteoporosis without current pathological fracture; F41.9 Anxiety disorder, unspecified; F32.A Depression, unspecified; Z98.1 Arthrodesis status; Z87.11 Personal history of peptic ulcer disease; Z86.16 Personal history of COVID-19; Z86.73 Personal history of transient ischemic attack (TIA), and cerebral infarction without residual deficits; Z87.01 Personal history of pneumonia (recurrent); Z87.891 Personal history of nicotine dependence; Z90.710 Acquired absence of both cervix and uterus; Z90.49 Acquired absence of other specified parts of digestive tract; Z79.01 Long term (current) use of anticoagulants; Z79.899 Other long term (current) drug therapy; W07.XXXA Fall from chair, initial encounter; Y93.E1 Activity, personal bathing and showering
CPT/HCPCS: 73502; 99283; A9270

== ENCOUNTER 2025-03-19 09:20 | Inpatient (IN) | payer MEDICARE, MEDICAID, SELFPAY ==
[2025-03-19] VITALS (15 sets, daily range): BP systolic 133–165; BP diastolic 66–105; PULSE 70–102; RESP 12–22; TEMP 36.8–37.1; O2SAT 93–98; BMI 28.0
--- NOTE | ~2025-03-19 | XR_ITS ---
XR chest 2V Ordering provider: Maylin Arnold PA-C History: 80 years Female with . sob, cough . Comparison: April 21, 2024 FINDINGS: MEDIASTINUM: The cardiac silhouette is slightly enlarged. Congestive alee. LUNGS: No effusions or pneumothorax. Bibasilar opacification suggestive of atelectasis versus pneumon ia. Bilateral interstitial thickening is noted which may indicate pulmonary edema. Clinical evaluatio n advised. OTHER: No free air under the diaphragm. Left shoulder osteoarthritic changes. Degenerative changes of the spine. IMPRESSION: Bilateral pneumonia. Underlying pulmonary edema is not excluded. Reviewed, dictated and finalized at location A.
--- NOTE | ~2025-03-19 | XR_ITS ---
XR chest 1V portable Ordering provider: Óscar Lisa MD History: 80 years Female with . Congestion . Comparison: March 24, 2025. FINDINGS: MEDIASTINUM: The cardiac silhouette is slightly enlarged. Congestive alee. LUNGS: No effusions or pneumothorax. Bibasilar, left perihilar and right upper lobe opacification sug gestive of pneumonia versus pulmonary edema. Clinical correlation and follow-up advised. No change fr om previous examination. OTHER: No free air under the diaphragm. IMPRESSION: Bilateral pneumonia versus pulmonary edema. Clinical correlation and follow-up advised. No change fro m previous examination. Reviewed, dictated and finalized at location A. IMPRESSION: Bilateral pneumonia versus pulmonary edema. Clinical correlation and follow-up advised. No change from previous examination.
--- NOTE | ~2025-03-19 | CT_ITS ---
CT diagnostic chest wo con Ordering provider: Fariha Thompson APRN History: 80 years Female with . bilateral penumonia COUGH . Comparison: None. Technique: CT chest without IV contrast.Radiation reduction technique utilized.The dose-length produc t was 168.94 mGy-cm. FINDINGS: VISUALIZED THORACIC INLET: Normal. MEDIASTINUM: Aorta/coronary arteries: Mild atheromatous disease. Heart/other: The heart is not enlarged. Prominent pulmonary arteries which may indicate pulmonary hyp ertension. Lymph nodes: No mediastinal or hilar adenopathy. LUNGS: Fibrotic changes in the right apical area, lingula and both lower lobes. Superimposed pneumoni tis cannot be excluded. No pulmonary nodules or masses. No effusions. No pneumothorax. Elevation of the right hemidiaphragm. VISUALIZED UPPER ABDOMEN: Status post cholecystectomy. Right adrenal adenoma unchanged from previous examination. Otherwise, the visualized upper abdomen is normal. MUSCULOSKELETAL: Soft tissues: The superficial soft tissues are normal. Bones: Age appropriate degenerative changes of the spine. . The fractures in the left hemithorax are noted IMPRESSION: 1. Fibrotic changes in the right upper lobe, lingula and both lower lobes. Superimpose pneumonitis c annot be excluded. 2. Prominent pulmonary arteries which may indicate pulmonary hypertension. 3. Right adrenal adenoma unchanged. Reviewed, dictated and finalized at location A. IMPRESSION: 1. Fibrotic changes in the right upper lobe, lingula and both lower lobes. Sup erimpose pneumonitis cannot be excluded. 2. Prominent pulmonary arteries which may indicate pulmonary hypertension. 3. Right adrenal adenoma unchanged.
--- NOTE | ~2025-03-19 | XR_ITS ---
XR chest 1V portable Ordering provider: Fariha Thompson APRN History: 80 years Female with . PNA . Comparison: March 19, 2025 FINDINGS: MEDIASTINUM: The cardiac silhouette is slightly enlarged. LUNGS: No effusions or pneumothorax. Opacification seen in the right upper lobe, left perihilar area and both lower lobes suggestive of pneumonia. OTHER: No free air under the diaphragm. IMPRESSION: Bilateral pneumonia unchanged from previous examination. Reviewed, dictated and finalized at location A.
--- NOTE | 2025-03-19 09:26 | ED.URI ---
HPI - URI/Sore Throat General Chief Complaint: Upper Respiratory Infection <Maylin Arnold PA-C - Last Filed: 03/19/25 13:33> Stated Complaint: sent for PNX <Maylin Arnold PA-C - Last Filed: 03/19/25 13:33> Time Seen by Provider: 03/19/25 09:24 <ANGELES Stallings Last Filed: 03/19/25 13:33> Source: patient, EMS and old records reviewed <ANGELES Stallings Last Filed: 03/19/25 13:33> Mode of arrival: EMS <ANGELES Stallings Last Filed: 03/19/25 13:33> Limitations: dementia <ANGELES Stallings Last Filed: 03/19/25 13:33> History of Present Illness HPI Narrative: Patient is an 80 y/o female, with PMH of dementia, CVA, HTN, COPD on 2-3L chronic home oxygen, CHF, chronic anticoagulation, who presents to the ED via EMS with report of SOB. Patient is a resident of [facility]. She reports she began having productive cough yesterday as well as increased shortness of breath. Audible wheezing. Staff sent patient here for concern for pneumonia. Patient denies known fevers. Denies chest pain. <Maylin Arnold PA-C - Last Filed: 03/19/25 13:33> Related Data Home Medications: Home Medications ?Medication ?Instructions ?Recorded ?Confirmed ?Last Taken ?Type acetaminophen 650 mg 650 mg PO Q6H PRN Mild Pain (Scale 10/09/21 08/23/24 Unknown History tablet,extended release Score 1-4) benzonatate 200 mg capsule 200 mg PO Q8H PRN Cough 10/09/21 08/23/24 Unknown History carvedilol 3.125 mg tablet (Coreg) 3.125 mg PO BID 10/09/21 08/23/24 Unknown History magnesium hydroxide 400 mg/5 mL 400 mg PO Q72H PRN Constipation 10/09/21 08/23/24 Unknown History oral suspension (Milk of Magnesia) magnesium oxide 400 mg (241.3 mg 400 mg PO DAILY 10/09/21 08/23/24 Unknown History magnesium) tablet ondansetron 4 mg disintegrating 4 mg PO Q6H PRN nausea and 10/09/21 08/23/24 Unknown History tablet vomitting trazodone 300 mg tablet 250 mg PO HS 10/09/21 08/23/24 Unknown History apixaban 2.5 mg tablet (Eliquis) 2.5 mg PO BID 01/12/23 08/23/24 Unknown History bupropion HCl 75 mg tablet 75 mg PO DAILY 01/12/23 08/23/24 Unknown History furosemide 40 mg tablet 40 mg PO QAM 01/12/23 08/23/24 Unknown History guaifenesin 600 mg tablet, 600 mg PO BID 01/12/23 08/23/24 Unknown History extended release 12 hr pantoprazole 40 mg tablet,delayed 40 mg PO QAM 01/12/23 08/23/24 Unknown History release (Protonix) sodium phosphates 19 gram-7 118 ml RECTAL ONCE PRN Constipation 01/12/23 08/23/24 Unknown History gram/118 mL enema (Fleet Enema) hydrocodone 5 mg-acetaminophen 325 1 tablet PO BID PRN Pain (Scale 05/24/23 08/23/24 Unknown History mg tablet Score 7-10) meloxicam submicronized 10 mg 10 mg PO DAILY 05/24/23 08/23/24 Unknown History capsule umeclidinium 62.5 mcg-vilanterol 1 inh inhalation DAILY 08/16/23 08/23/24 Unknown History 25 mcg/actuation powdr for inhalation (Anoro Ellipta) albuterol sulfate 2.5 mg/3 mL 2.5 mg inhalation QID PRN SOB 04/18/24 08/23/24 Unknown History (0.083 %) solution for nebulization azelastine 137 mcg (0.1 %) nasal 137 mcg intranasal BID 04/18/24 08/23/24 Unknown History spray famotidine 20 mg tablet 20 mg PO BID 04/18/24 08/23/24 Unknown History omega 8-kmc-ttl-fish oil 1,000 mg 1 cap PO DAILY 04/18/24 08/23/24 Unknown History (120 mg-180 mg) capsule (Fish Oil) albuterol sulfate 90 mcg/actuation 1 inh inhalation Q4-6H PRN sob 04/21/24 08/23/24 Unknown History breath activated powder inhaler wheezing artificial tears solution eye drops 1 drp ophthalmic (eye) BID dry eyes 04/21/24 08/23/24 Unknown History cholecalciferol (vitamin D3) 25 25 mcg PO DAILY 04/21/24 08/23/24 Unknown History mcg (1,000 unit) tablet diclofenac sodium 1 % topical gel 2 g topical QID PRN knee pain 04/21/24 08/23/24 Unknown History emollient combination no.110 1 ea topical DAILY 04/21/24 08/23/24 Unknown History (Eucerin Intensive Repair lotion) hydrocortisone 2.5 % topical cream 1 applic topical QID PRN Itching 04/21/24 08/23/24 Unknown History ipratropium 0.5 mg-albuterol 3 mg 3 ml inhalation Q6H PRN SOB 04/21/24 08/23/24 Unknown History (2.5 mg base)/3 mL nebulization soln [id number] 2 cap PO TID 04/21/24 08/23/24 Unknown History 24,000-76,000-120,000 unit capsule,delayed rel (Creon) loperamide 2 mg capsule 2 mg PO Q12H PRN Diarrhea 04/21/24 08/23/24 Unknown History <Maylin Arnold PA-C - Last Filed: 03/19/25 13:33> Allergies/Adverse Reactions: Allergies Allergy/AdvReac Type Severity Reaction Status Date / Time ceftriaxone (From Rocephin) Allergy Intermediate Rash Verified 03/16/25 18:01 Sulfa (Sulfonamide Allergy Intermediate Rash Verified 03/16/25 18:01 Antibiotics) morphine AdvReac Mild Hallucinati Verified 03/16/25 18:01 ng <ANGELES Stallings Last Filed: 03/19/25 13:33> Review of Systems Review of Systems: All systems reviewed & are unremarkable except as noted in HPI. <ANGELES Stallings Last Filed: 03/19/25 13:33> All systems reviewed & are unremarkable except as noted in HPI and below <Maylin Arnold PA-C - Last Filed: 03/19/25 13:33> [facility] Past Medical History Medical History: Medical History Pulmonary embolism (06/2021) Pulmonary arterial hypertension Chronic interstitial lung disease Overactive bladder Peripheral vascular disease Cerebrovascular accident Anemia of chronic disease Clostridium difficile diarrhea Prediabetes Hyperlipidemia Hypertension History of peptic ulcer Gastroesophageal reflux disease Chronic respiratory failure with hypoxia and hypercapnia On 2 to 3 L nasal cannula. Chronic obstructive pulmonary disease Diastolic congestive heart failure Pneumonia due to 2019-nCoV (06/11/21) Exocrine pancreatic insufficiency Migraine Herniated disc Osteoporosis Anxiety Depression Arthritis GI bleed Pancreatitis Emphysema of lung Dementia <Maylin Arnold PA-C - Last Filed: 03/19/25 13:33> Surgical History Surgical History: Surgical History History of neck surgery (2001) History of tonsillectomy History of bladder suspension procedure History of lumbar fusion x2 History of hysterectomy History of tubal ligation History of cholecystectomy History of cardiac cath History of vascular surgery Left lower extremity. <Maylin Arnold PA-C - Last Filed: 03/19/25 13:33> Family History Family History: Family History Father Family history of Parkinson's disease Sibling Patient's brother is in good health Mother Family history of chronic obstructive pulmonary disease Family history of pancreatic cancer <Maylin Arnold PA-C - Last Filed: 03/19/25 13:33> Social History Social History: Social History Social History: Surrogate decision maker: Stefanie Finney, granddaughter. Code status: Full code. Smoking packs per day: 1 Smoking cigarettes per day: 20.0 Years smoked: 30 Smoking pack-years: 30.00 Smoking status: Former smoker Second hand tobacco smoke exposure: Yes Alcohol intake: never Substance use: never Do You Feel Safe in your Home?: Yes Lack of Transportation: No Lack of Food: Never True Current Housing: I Have Housing Concerned About Future Housing: No Difficulty Paying Gas/Electric Bills: No Difficulty Paying for Meds: No Currently Unemployed: No Education: High School Diploma/GED Difficulty w/ Childcare or Family Care: No Living arrangements: alf Additional living arrangements comments: Resident of [facility]. Additional occupation/education comments: Retired. Spiritual care concerns: No <ANGELES Stallings Last Filed: 03/19/25 13:33> Exam Narrative: GENERAL: Elderly, chronically ill-appearing, non-toxic, in no acute distress. HEAD: Normocephalic, atraumatic. RESPIRATORY: Airway patent, respirations mildly labored on 2 L nasal cannula. Diffuse inspiratory and expiratory wheezing bilaterally in all lung [place], scattered rhonchi. CARDIOVASCULAR: Regular rate and rhythm without murmurs, rubs, or gallops. Peripheral pulses intact. MUSCULOSKELETAL: Moves all extremities. No gross deformities. No peripheral edema. SKIN: Warm, dry, normal color. NEURO: Alert, intermittent confusion. Speech clear. No ataxic movements. PSYCHIATRIC: Appropriate mood and affect. Normal interaction. <ANGELES Stallings Last Filed: 03/19/25 13:33> Course WORKING MANAGER/PA Physician Supervision This visit was performed by both a physician and an APC. I performed all aspects of the MDM as documented. <Joo Obando MD - Last Filed: 03/19/25 13:35> Vital Signs Vital signs: Vital Signs Temperature 98.2 F 03/19/25 09:23 Pulse Rate 70 03/19/25 09:23 Respiratory Rate 16 03/19/25 09:23 Blood Pressure 164/80 H 03/19/25 09:23 Pulse Oximetry 98 03/19/25 09:23 Oxygen Delivery Nasal Cannula 03/19/25 09:23 Oxygen Flow Rate 2 03/19/25 09:23 Temperature 98.2 F 03/19/25 09:23 Pulse Rate 79 03/19/25 12:47 Respiratory Rate 15 03/19/25 12:47 Blood Pressure 144/89 H 03/19/25 12:47 Pulse Oximetry 94 03/19/25 12:47 Oxygen Delivery Nasal Cannula 03/19/25 09:30 Oxygen Flow Rate 2 03/19/25 09:30 <Maylin Arnold PA-C - Last Filed: 03/19/25 13:33> Vital Signs Temperature 98.2 F 03/19/25 09:23 Pulse Rate 70 03/19/25 09:23 Respiratory Rate 16 03/19/25 09:23 Blood Pressure 164/80 H 03/19/25 09:23 Pulse Oximetry 98 03/19/25 09:23 Oxygen Delivery Nasal Cannula 03/19/25 09:23 Oxygen Flow Rate 2 03/19/25 09:23 Temperature 98.2 F 03/19/25 09:23 Pulse Rate 79 03/19/25 12:47 Respiratory Rate 15 03/19/25 12:47 Blood Pressure 144/89 H 03/19/25 12:47 Pulse Oximetry 94 03/19/25 12:47 Oxygen Delivery Nasal Cannula 03/19/25 09:30 Oxygen Flow Rate 2 03/19/25 09:30 <Joo Obando MD - Last Filed: 03/19/25 13:35> MDM - URI/Sore Throat MDM Narrative Medical decision making narrative: Patient presented to ED with report of productive cough, shortness of breath, from local alf. Chronically wears 2-3 L nasal cannula. Oxygen is stable on this currently. Patient with diffuse wheezing and rhonchi. Hour long nebulizer treatment and Solu-Medrol ordered. ABG with mild CO2 retention with pCO2 of 54.4, though this appears fairly consistent previous records. Some level of compensation. Normal pH. EKG w/o concerning ST changes. Laboratory studies with blood cell count of 9.9. Chronic anemia, consistent with previous records. CMP is unremarkable. Lactic acid within normal range at 0.9. Magnesium was low at 1.3. IV replacement ordered. Troponin undetectable. BNP within normal range. UA without signs of infection. Viral swabs are negative. Chest x-ray showing bilateral pneumonia. Consistent with clinical picture. Will be admitted for further evaluation. Blood cultures obtained. Discussed case with Jeaneth Alvarado NP hospitalist, accepted patient for admission. Discussed abx tx -patient has a Rocephin allergy listed, however per records, she has received this medication numerous times, including last year. Records reviewed from admission at that time, no comment on allergic reaction. Discussed with hospitalist, anibal with proceeding with Rocephin and azithromycin for pneumonia coverage. Will continue steroids and nebulizer treatments for COPD overlap. Patient did sound slightly improved after hour long nebulizer, but still with diffuse wheezing. Patient in agreement with plan and admission. <Maylin Arnold PA-C - Last Filed: 03/19/25 13:33> Medical Records Attestation: I reviewed the patient's medical records. <Maylin Arnold PA-C - Last Filed: 03/19/25 13:33> Lab Data Attestation: I reviewed the patient's lab results. <Maylin Arnold PA-C - Last Filed: 03/19/25 13:33> Result diagrams: 03/19/25 10:43 03/19/25 10:43 <ANGELES Stallings Last Filed: 03/19/25 13:33> Labs: Lab Results 03/19/25 03/19/25 03/19/25 Range/Units 10:08 10:43 11:38 WBC 9.9 (4.5-10.0) K/mm3 RBC 3.29 L (4.2-5.4) M/mm3 Hgb 10.3 L (12.0-15.0) g/dL Hct 33.1 L (37.0-47.0) % MCV 100.6 H (80-100) fl MCH 31.3 (26-34) pg MCHC 31.1 L (32-36) g/dl RDW 12.4 (11.5-14.5) % Plt Count 239 (150-375) k/mm3 MPV 11.3 H (7.4-10.4) fl Immature Gran % (Auto) 0.6 H (0-0.5) % Neut % (Auto) 64.2 (45.5-73.1) % Lymph % (Auto) 23.5 (18.3-44.2) % [place] % (Auto) 5.7 (2.6-8.5) % Eos % (Auto) 5.6 H (0-4.4) % Baso % (Auto) 0.4 (0.2-1.2) % Lymph # (Auto) 2.34 (0.9-3.2) K/mm3 [place] # (Auto) 0.6 (0.1-0.6) K/mm3 Eos # (Auto) 0.6 H (0-0.3) K/mm3 Baso # (Auto) 0.0 (0.0-0.1) K/mm3 Abs Immat Gran (auto) 0.06 H (0.00-0.031) K/mm3 Absolute Neuts (auto) 6.4 (1.3-6.7) K/mm3 Absolute Nucleated RBC 0.000 (0.0-0.012) K/mm3 Nucleated RBC % 0.0 (0.0-0.2) % PT 15.1 H (11.1-14.7) Seconds INR 1.2 APTT 50.3 H (22.3-36.8) Seconds Methemoglobin 0.1 (0-1.5) %THb Sodium 140 (137-145) mmol/L Potassium 3.6 (3.4-5.0) mmol/L Chloride 101 (98-107) mmol/L Carbon Dioxide 34 H (22-30) mmol/L Anion Gap 5 (4-12) mmol/L BUN 10 D (7-17) mg/dL Creatinine 0.70 (0.7-1.0) mg/dL Estim Creat Clear Calc 53 ml/min Estimated GFR > 60 (59 - ) Glucose 110 (65-110) mg/dL Lactic Acid 0.9 (0.7-2.0) mmol/L Calcium 8.8 (8.4-10.2) mg/dL Magnesium 1.3 L (1.6-2.3) mg/dL Total Bilirubin 0.3 (0.2-1.3) mg/dL AST 26 (14-36) U/L ALT 14 (6-35) U/L Alkaline Phosphatase 52 (38-126) U/L Troponin I < 0.012 (0.000-0.034) ng/mL NT-Pro-B Natriuret Pep 267 H (19.9-100) pg/mL Total Protein 7.2 (6.3-8.2) g/dL Albumin 3.7 (3.5-5.1) g/dL Urine Color Yellow (Yellow) Urine Appearance Clear (Clear) Urine pH 6.5 (5.0-9.0) Ur Specific [place] 1.018 (1.001-1.035) Urine Protein Negative (Negative) mg/dL Urine Glucose (UA) Negative (Negative) mg/dL Urine Ketones 1+ H (Negative) mg/dL Ur Blood (Man) Negative (Negative) Urine Nitrate Negative (Negative) Urine Bilirubin Negative (Negative) Urine Urobilinogen 1.0 (<2.0) mg/dL Leukocyte Esterase Rfl Negative (Negative) DENTON/UL Influenza A (RT-PCR) Negative (Negative) Influenza B (RT-PCR) Negative (Negative) RSV (RT-PCR) Negative (Negative) SARS-CoV-2 RNA (RT-PCR) Negative (Negative) <Maylin Arnold PA-C - Last Filed: 03/19/25 13:33> Lab Results 03/19/25 03/19/25 03/19/25 Range/Units 10:08 10:43 11:38 WBC 9.9 (4.5-10.0) K/mm3 RBC 3.29 L (4.2-5.4) M/mm3 Hgb 10.3 L (12.0-15.0) g/dL Hct 33.1 L (37.0-47.0) % MCV 100.6 H (80-100) fl MCH 31.3 (26-34) pg MCHC 31.1 L (32-36) g/dl RDW 12.4 (11.5-14.5) % Plt Count 239 (150-375) k/mm3 MPV 11.3 H (7.4-10.4) fl Immature Gran % (Auto) 0.6 H (0-0.5) % Neut % (Auto) 64.2 (45.5-73.1) % Lymph % (Auto) 23.5 (18.3-44.2) % [place] % (Auto) 5.7 (2.6-8.5) % Eos % (Auto) 5.6 H (0-4.4) % Baso % (Auto) 0.4 (0.2-1.2) % Lymph # (Auto) 2.34 (0.9-3.2) K/mm3 [place] # (Auto) 0.6 (0.1-0.6) K/mm3 Eos # (Auto) 0.6 H (0-0.3) K/mm3 Baso # (Auto) 0.0 (0.0-0.1) K/mm3 Abs Immat Gran (auto) 0.06 H (0.00-0.031) K/mm3 Absolute Neuts (auto) 6.4 (1.3-6.7) K/mm3 Absolute Nucleated RBC 0.000 (0.0-0.012) K/mm3 Nucleated RBC % 0.0 (0.0-0.2) % PT 15.1 H (11.1-14.7) Seconds INR 1.2 APTT 50.3 H (22.3-36.8) Seconds Methemoglobin 0.1 (0-1.5) %THb Sodium 140 (137-145) mmol/L Potassium 3.6 (3.4-5.0) mmol/L Chloride 101 (98-107) mmol/L Carbon Dioxide 34 H (22-30) mmol/L Anion Gap 5 (4-12) mmol/L BUN 10 D (7-17) mg/dL Creatinine 0.70 (0.7-1.0) mg/dL Estim Creat Clear Calc 53 ml/min Estimated GFR > 60 (59 - ) Glucose 110 (65-110) mg/dL Lactic Acid 0.9 (0.7-2.0) mmol/L Calcium 8.8 (8.4-10.2) mg/dL Magnesium 1.3 L (1.6-2.3) mg/dL Total Bilirubin 0.3 (0.2-1.3) mg/dL AST 26 (14-36) U/L ALT 14 (6-35) U/L Alkaline Phosphatase 52 (38-126) U/L Troponin I < 0.012 (0.000-0.034) ng/mL NT-Pro-B Natriuret Pep 267 H (19.9-100) pg/mL Total Protein 7.2 (6.3-8.2) g/dL Albumin 3.7 (3.5-5.1) g/dL Urine Color Yellow (Yellow) Urine Appearance Clear (Clear) Urine pH 6.5 (5.0-9.0) Ur Specific [place] 1.018 (1.001-1.035) Urine Protein Negative (Negative) mg/dL Urine Glucose (UA) Negative (Negative) mg/dL Urine Ketones 1+ H (Negative) mg/dL Ur Blood (Man) Negative (Negative) Urine Nitrate Negative (Negative) Urine Bilirubin Negative (Negative) Urine Urobilinogen 1.0 (<2.0) mg/dL Leukocyte Esterase Rfl Negative (Negative) DENTON/UL Influenza A (RT-PCR) Negative (Negative) Influenza B (RT-PCR) Negative (Negative) RSV (RT-PCR) Negative (Negative) SARS-CoV-2 RNA (RT-PCR) Negative (Negative) <Joo Obando MD - Last Filed: 03/19/25 13:35> ABG Data ABG results: 03/19/25 10:08 Puncture Site Right radial ABG pH 7.421 ABG pCO2 54.4 H ABG pO2 70.7 L ABG PO2/FiO2 Ratio 2.52 ABG HCO3 34.6 H ABG O2 Saturation 94.2 L ABG O2 Content 14.9 L ABG Base Excess 8.6 A-a Gradient 64.8 Oxyhemoglobin 93.5 Carboxyhemoglobin 0.3 Reduced Hemoglobin 6.1 H Total Hemoglobin 11.3 L O2 Delivery Device Nasal cannula O2 Liters/Min 2.0 FiO2 28 <Maylin Arnold PA-C - Last Filed: 03/19/25 13:33> 03/19/25 10:08 Puncture Site Right radial ABG pH 7.421 ABG pCO2 54.4 H ABG pO2 70.7 L ABG PO2/FiO2 Ratio 2.52 ABG HCO3 34.6 H ABG O2 Saturation 94.2 L ABG O2 Content 14.9 L ABG Base Excess 8.6 A-a Gradient 64.8 Oxyhemoglobin 93.5 Carboxyhemoglobin 0.3 Reduced Hemoglobin 6.1 H Total Hemoglobin 11.3 L O2 Delivery Device Nasal cannula O2 Liters/Min 2.0 FiO2 28 <Joo Obando MD - Last Filed: 03/19/25 13:35> Imaging Data Attestation: I personally reviewed and interpreted this imaging study as follows: <ANGELES Stallings Last Filed: 03/19/25 13:33> Radiologist's impression: ITS Impressions Chest X-Ray 03/19/25 11:38 IMPRESSION: Bilateral pneumonia. Underlying pulmonary edema is not excluded. <ANGELES Stallings Last Filed: 03/19/25 13:33> ECG Data EKG #1: Attestation: I personally reviewed and interpreted this ECG as follows: <Maylin Arnold PA-C - Last Filed: 03/19/25 13:33> ECG completion date: 03/19/25 <ANGELES Stallings Last Filed: 03/19/25 13:33> ECG completion time: 09:29 <ANGELES Stallings Last Filed: 03/19/25 13:33> EKG Interpretation: normal rate (72), sinus rhythm and no ST changes <ANGELES Stallings Last Filed: 03/19/25 13:33> Discharge Plan Discharge Clinical Impression: Hypomagnesemia, Acute exacerbation of chronic obstructive pulmonary disease (COPD) Pneumonia Qualifiers: Pneumonia type: due to unspecified organism Laterality: bilateral Lung location: lower lobe of lung Qualified Code(s): J18.9 - Pneumonia, unspecified organism <ANGELES Stallings Last Filed: 03/19/25 13:33> Patient Disposition: Still a Patient <ANGELES Stallings Last Filed: 03/19/25 13:33> Condition: Stable <ANGELES Stallings Last Filed: 03/19/25 13:33> Patient Language: [place] Leonean <ANGELES Stallings Last Filed: 03/19/25 13:33> Prescriptions: No Action pregabalin [Lyrica] 150 mg capsule 150 mg PO BID Qty: 60 3RF guaifenesin 600 mg tablet extended release 12hr 600 mg PO BID bupropion HCl 75 mg tablet 75 mg PO DAILY Eliquis 2.5 mg tablet 2.5 mg PO BID Fleet Enema 19-7 gram/118 mL enema 118 ml RECTAL ONCE PRN (Reason: Constipation) furosemide 40 mg tablet 40 mg PO QAM pantoprazole [Protonix] 40 mg tablet,delayed release (DR/EC) 40 mg PO QAM hydrocodone-acetaminophen 5-325 mg tablet 1 tablet PO BID PRN (Reason: Pain (Scale Score 7-10)) meloxicam submicronized 10 mg capsule 10 mg PO DAILY albuterol sulfate 2.5 mg /3 mL (0.083 %) solution for nebulization 2.5 mg inhalation QID PRN (Reason: SOB) azelastine 137 mcg (0.1 %) spray,non-aerosol 137 mcg intranasal BID famotidine 20 mg tablet 20 mg PO BID omega 3-lcu-wik-fish oil [Fish Oil] 1,000 mg (120 mg-180 mg) capsule 1 cap PO DAILY potassium chloride 20 mEq tablet extended release 20 meq PO DAILY Qty: 30 0RF methocarbamol 750 mg tablet 750 mg PO TID PRN (Reason: pain) Qty: 20 0RF lidocaine 5 % adhesive patch,medicated 1 patch topical DAILY Qty: 15 0RF Rx Instructions: leave on most painful area for up to 12 hrs methocarbamol 750 mg tablet 750 mg PO TID PRN (Reason: pain) Qty: 20 0RF lidocaine 5 % adhesive patch,medicated 1 patch topical DAILY Qty: 15 0RF Rx Instructions: leave on most painful area for up to 12 hrs carvedilol [Coreg] 3.125 mg Tablet 3.125 mg PO BID benzonatate 200 mg Capsule 200 mg PO Q8H PRN (Reason: Cough) acetaminophen 650 mg Tablet Extended Release 650 mg PO Q6H PRN (Reason: Mild Pain (Scale Score 1-4)) magnesium hydroxide [Milk of Magnesia] 400 mg/5 mL Suspension 400 mg PO Q72H PRN (Reason: Constipation) ondansetron 4 mg Tablet,Disintegrating 4 mg PO Q6H PRN (Reason: nausea and vomitting) magnesium oxide 400 mg (241.3 mg magnesium) tablet 400 mg PO DAILY Rx Instructions: for hypomagnesia trazodone 300 mg tablet 250 mg PO HS Anoro Ellipta 62.5-25 mcg/actuation blister with device 1 inh INHALATION DAILY Eucerin Intensive Repair Lotion 1 ea TOPICAL DAILY Rx Instructions: general dry skin loperamide 2 mg Capsule 2 mg PO Q12H PRN (Reason: Diarrhea) cholecalciferol (vitamin D3) 25 mcg (1,000 unit) Tablet 25 mcg PO DAILY diclofenac sodium 1 % Gel 2 g TOPICAL QID PRN (Reason: knee pain) Rx Instructions: bilateral knee pain ipratropium-albuterol 0.5 mg-3 mg(2.5 mg base)/3 mL Solution For Nebulization 3 ml INHALATION Q6H PRN (Reason: SOB) hydrocortisone 2.5 % Cream 1 applic TOPICAL QID PRN (Reason: Itching) Rx Instructions: affected areas Creon 24,000-76,000 -120,000 unit Capsule,Delayed Release(Dr/Ec) 2 cap PO TID Rx Instructions: administer with meals and/or snacks artificial tears solution Drops 1 drp OPHTHALMIC (EYE) BID albuterol sulfate 90 mcg/actuation Aerosol Powdr Breath Activated 1 inh INHALATION Q4-6H PRN (Reason: sob wheezing) cefdinir 300 mg Capsule 300 mg PO Q12H Qty: 14 0RF Dificid 200 mg Tablet 200 mg PO Q12HR Qty: 19 0RF levofloxacin 750 mg tablet 750 mg PO DAILY Qty: 7 0RF cetirizine [Zyrtec] 10 mg tablet 10 mg PO DAILY Qty: 90 1RF ferrous sulfate 325 mg (65 mg iron) tablet 325 mg PO DAILY Qty: 90 2RF folic acid 1 mg tablet 1 mg PO DAILY Qty: 90 2RF atorvastatin 80 mg tablet 80 mg PO DAILY Qty: 90 2RF <Maylin Arnold PA-C - Last Filed: 03/19/25 13:33> Follow-up/Referrals: Mariano Walker MD [Primary Care Provider] - <Maylin Arnold PA-C - Last Filed: 03/19/25 13:33>
--- NOTE | 2025-03-19 09:56 | PCRCNOTE ---
abg and tx late due to IV issues
[2025-03-19 10:20] LABS: Alveolar/Arterial O2 Gradient 64.8 mmHg; Carboxyhemoglobin 0.3 % THb (0-2.0); Fractional Inspired Oxygen 28 %; HCO3 ABG 34.6 mEq/l (22.0-26.0); Methemoglobin ABG 0.1 %THb (0-1.5); Oxygen Content ABG 14.9 %vol (16.0-22.0); Oxygen Saturation ABG 94.2 % (95.0-100.0); PCO2 ABG 54.4 mmHg (35.0-45.0); PO2 ABG 70.7 mmHg (80.0-100.0); PO2 FiO2 Ratio Arterial Blood 2.52 %; Reduced Hemoglobin 6.1 %THb (0-5.0)
[2025-03-19 10:21] LABS: Liters per Minute 2.0 LPM; Modified Allen's Test Pass; Site Drawn RIGHT RADIAL
[2025-03-19] MEDS: IPRATROPIUM BR 0.02% INH SOLN 0.5 MG/2.5 ML VIAL 1.5 MG INHALATION (10:23)
--- NOTE | 2025-03-19 10:24 | ECG_ITS ---
Test Date: 2025-03-19 09:29:07 Measurements Intervals [place] Rate: 72 P: 28 DC: 157 QRS: 8 QRSD: 90 T: 30 QT: 371 QTc: 407 Interpretive Statements SINUS RHYTHM LOW QRS VOLTAGE IN PRECORDIAL LEADS BASELINE ARTIFACT- I, II, III, AVR, AVL, AVF, V1-V5 BORDERLINE ECG No previous ECG available for comparison Electronically Signed On 03-19-2025 10:52:33 CDT by Kole Carey D.O.
--- OUTSIDE RECORDS SUMMARY | 2025-03-19 10:51 | XMS_ITS | Encounter Summary ---
Author Organization [facility] Healthcare Address [address] [place] [address] Care Team Providers Care Manufacturing Systems Engineer Name Role Phone Mack Vanegas DO Primary Care Provider [phone] Encounter Details Date Type Department Care Team (Late st Contact Info) Description 02/10/2023 Telephone [facility] [address] [place] [id number] [address], RT Social History Tobacco Use Types Packs/Day Years Used Date Smoking Tobacco: Former Comments No Sex and Gender Information Value Date Recorded Sex Assigned at Not on file Legal Sex Female 2:33 AM PICK UP MAN Gender Identity Not on file Sexual Orientation Not on file documented as of this encounter Plan of Treatment Not on file documented as of this encounter Visit Diagnoses Not on filedocumented in this encounter Care Teams Manufacturing Systems Engineer Relationship Specialty Start Date End Date Mack aVnegas DO PCP - General Internal Medicine 03/07/19 documented as of this encounter
--- OUTSIDE RECORDS SUMMARY | 2025-03-19 10:51 | XMS_ITS | Referral Summary ---
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 MEDICARE ADVANTAGE [facility] MEDICARE [facility] Address: [address] [address] [place] [address] [facility] MEDICARE ADVANTAGE IDPA Advance Directives For more information, please contact: [phone] Documents on File Type Date Recorded Patient Paste Up Copy Camera Operator Expl anation ADVANCE DIRECTIVE 02/09/2013 12:00 AM GREYSON Elizondo OF DIE CASTING SUPERVISOR FINANCIAL/MEDICAL Care Teams Coping Machine Assembler Relationship Specialty Start Date End Date Mack Vanegas DO PCP - General Internal Medicine 03/07/19
--- OUTSIDE RECORDS SUMMARY | 2025-03-19 10:51 | XMS_ITS | Clinical Summary ---
Author Organization [facility] Address [address] [place] [address] Care Team Providers Care Client Service Consultant Name Role Phone PastoradruMack montanez DO Primary Care Provider [phone] Source Comments [facility],non-owned Affiliates and Associated Physician Practices is amultiple site organization consisting of ambulatory clinics and hospital sitesin [place], [place], [place] and [place]. This disclosure is being madepursuant to the Care Everywhere program and may not contain all information available regarding this patient. 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 [place] [address] Priyank Larsen MD [facility] [address] OF [facility] [place] [address] Health Maintenance Due Date Last Done Comments [...] Procedure Name Priority Date/Time Associated Diagnosis Comments UT DRAIN INJ MAJOR JOINT BURSA W US Routine 03/05/2025 2:21 PM CDT Osteoarthritis of right glenohumeral joint from Last 3 Months Results * [facility] DRAIN INJ MAJOR JOINT BURSA W US [...] Result from Last 3 Months Insurance MEDICARE [facility] MEDICARE [facility] Care Teams Client Service Consultant Relationship Specialty Start Date End Date Mack Vanegas DO [address] [place] [id number] PCP - General Internal Medicine 11/27/24
--- OUTSIDE RECORDS SUMMARY | 2025-03-19 10:51 | XMS_ITS | Clinical Summary ---
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 Gender Identity Not on file Sexual Orientation [...] vaccine 65+ Completed 018, 07/09/2015, 07/28/2010 Insurance [facility] MEDICARE ADVANTAGE [facility] MEDICARE IDPA [facility] MEDICARE ADVANTAGE IDPA Advance Directives For more information, please contact: [phone] Documents on File Type Date Recorded Patient Machine Stone 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
--- OUTSIDE RECORDS SUMMARY | 2025-03-19 10:51 | XMS_ITS | Data Portability ---
Author [facility] Address [address] [place] [address] Assessment No assessment recorded. Plan of Treatment Reminders Order Date Submit Date Provider Last Modified By Organization Details Last Modified Time Details Appointments None recorded. Lab None recorded. Referral None recorded. Procedures None recorded. Surgeries None recorded. Imaging None recorded. Medication Orders duloxetine 60 mg capsule,del ayed release 2014 015 [email or web address] [id number], [address], [id number], 5 23:27:59 albuterol sulfate HFA 90 mcg/actuati on aerosol inhaler 2014 015 [facility] #[id number], [address], [id number], 5 23:27:59 Patient TargetsNo targets recorded. Patient Instructions Encounter Date Encounter Id Patient Instructions Last Modified By Organization Details Last Modified Time 12/02/2014 [id number] I was present an d available in [...] Details Recorded Time Chronic low back pain 293931683 Active Gi Lang null, [facility] 5 13:24:15 Hypertensive disorder 46114455 Active Gi Lang null, [facility] 5 13:24:15 Gastroesophage al reflux disease 486545958 Active Andria Otf null, [facility] [...] Address Organization Details Last Updated DateTime 5 18724.8 8764 g 80 /min 31.5 kg/m2 157.48 [...] SNOMED-CT Code Diagnosis ICD10 Code Diagnosis Note [id number] MD Rosemary Weaver (ANIBAL 300) [address] [place] [address] 12/02/2014 12:13:36 12/02/2014 23:17:33 Chronic pain syndrome 795953829 No narcotics from our office due to poor compliance . Will continue Duloxetine at max dose. She refuses follow up with psychiatry . No SI/HI. Insomnia 263250768 Stabl e. Patient asks for increase in trazodone. Denied based on prior history. Counselled on sleep hygiene and melatonin use as needed. She expressed understand ing. Dyspnea 731584338 Histor y of COPD. Based on what [...] MEDICARE OR MEDICARE REPLACEMENT PRIMARY) Gabbi Champagne [id number] Gabbi Champagne 06/17/2016 1 [place]) Gabbi Champagne [id number] Gabbi Champagne 06/17/2016 [place] [facility] Gabbi Champagne [id number] Gabbi Champagne OBGyn Episode No OBEpisode recorded.
[2025-03-19 10:52] LABS: Hematocrit 33.1 % (37.0-47.0); Hemoglobin 10.3 g/dL (12.0-15.0); Immature Granulocyte Percent A 0.6 % (0-0.5); Lymphocytes Absolute Auto 2.34 K/mm3 (0.9-3.2); Mean Corpuscular HGB Conc 31.1 g/dl (32-36); Mean Corpuscular Hemoglobin 31.3 pg (26-34); Mean Corpuscular Volume 100.6 fl (80-100); Nucleated Red Blood Cells Absolute Auto 0.000 K/mm3 (0.0-0.012); Nucleated Red Blood Cells Perc 0.0 % (0.0-0.2); Platelet Count Result 239 k/mm3 (150-375); Red Blood Count 3.29 M/mm3 (4.2-5.4); White Blood Count 9.9 K/mm3 (4.5-10.0)
[2025-03-19 11:06] LABS: INR 1.2; Prothrombin Time 15.1 Seconds (11.1-14.7)
[2025-03-19 11:07] LABS: Partial Thromboplastin Time 50.3 Seconds (22.3-36.8)
[2025-03-19 11:16] LABS: Alanine Aminotransferase 14 U/L (6-35); Albumin Level 3.7 g/dL (3.5-5.1); Alkaline Phosphatase 52 U/L (38-126); Anion Gap 5 mmol/L (4-12); Aspartate Amino Transferase 26 U/L (14-36); Bilirubin,Total 0.3 mg/dL (0.2-1.3); Blood Urea Nitrogen 10 mg/dL (7-17); Calcium 8.8 mg/dL (8.4-10.2); Carbon Dioxide 34 mmol/L (22-30); Chloride 101 mmol/L (98-107); Estimated CRCL calculation 53 ml/min; Estimated Glomerular Filt Rate > 60; Glucose 110 mg/dL (65-110); Magnesium 1.3 mg/dL (1.6-2.3); Potassium 3.6 mmol/L (3.4-5.0); Sodium 140 mmol/L (137-145); Total Protein 7.2 g/dL (6.3-8.2)
[2025-03-19 11:25] LABS: NT Pro B Type Natriuretic Pept 267 pg/mL (19.9-100)
[2025-03-19 11:27] LABS: Influenza A QL RT-PCR Negative (Negative); Influenza B QL RT-PCR Negative (Negative); RSV RNA, RT-PCR Negative (Negative); SARS-CoV-2 RNA PCR Negative (Negative)
[2025-03-19 11:29] LABS: Troponin I < 0.012 ng/mL (0.000-0.034)
[2025-03-19 11:49] LABS: Add Urine Microscopic? NO; Appearance Urine Clear (Clear); Glucose Urine UA Negative (Negative); Leukocyte Esterase Ur Negative LEU/UL (Negative); Nitrate Urine Negative (Negative); Specific Grav Ur 1.018 (1.001-1.035)
[2025-03-19] MEDS: MAGNESIUM SULF 2 GM/WATER 50ML 2 GM/50 ML BAG IVPB (12:26)
--- NOTE | 2025-03-19 13:25 | P.HP_ITS ---
H&P: HPI History of Present Illness Date/Time: 03/19/25 13:25 Chief Complaint: Shortness of breath Narrative: 79-year-old female past medical history of PE, PVD, anemia of chronic disease, COPD, systolic heart failure, hypertension hyperlipidemia presents the hospital with shortness of breath. Patient use is 2-3 L of oxygen at home. HPI is limited as Patient has altered mental status. Patient is oriented to name. According to ED records patient is on 2-3 L of home oxygen, as she is resident of a care home. Apparently she complained of shortness of breath and sputum. Workup in the ED shows anemia at 10.3 with baseline being 12, ABG with a pH of 7.421, pCO2 of 54.4, PO2 is 70, bicarb of 34, magnesium of 1.3, influenza A/B, RSV, COVID negative. Bilateral pneumonia underlying edema cannot be excluded on chest x-ray. EKG shows sinus rhythm, QTC 407. Patient on azithromycin and Rocephin, DuoNebs and steroids. Review of Systems Review of Systems: 12 systems were reviewed and are negativ e except for as per HPI. [facility] Past Medical History Medical History Pulmonary embolism (06/2021) Pulmonary arterial hypertension Chronic interstitial lung disease Overactive bladder Peripheral vascular disease Cerebrovascular accident Anemia of chronic disease Clostridium difficile diarrhea Prediabetes Hyperlipidemia Hypertension History of peptic ulcer Gastroesophageal reflux disease Chronic respiratory failure with hypoxia and hypercapnia On 2 to 3 L nasal cannula. Chronic obstructive pulmonary disease Diastolic congestive heart failure Pneumonia due to 2019-nCoV (06/11/21) Exocrine pancreatic insufficiency Migraine Herniated disc Osteoporosis Anxiety Depression Arthritis GI bleed Pancreatitis Emphysema of lung Dementia Surgical History Surgical History History of neck surgery (2001) History of tonsillectomy History of bladder suspension procedure History of lumbar fusion x2 History of hysterectomy History of tubal ligation History of cholecystectomy History of cardiac cath History of vascular surgery Left lower extremity. Family History Family History Father Family history of Parkinson's disease Sibling Patient's brother is in good health Mother Family history of chronic obstructive pulmonary disease Family history of pancreatic cancer Social History Social History Social History: Surrogate decision maker: Stefanie Finney, granddaughter. Code status: Full code. Smoking packs per day: 1 Smoking cigarettes per day: 20.0 Years smoked: 30 Smoking pack-years: 30.00 Smoking status: Former smoker Second hand tobacco smoke exposure: Yes Alcohol intake: never Substance use: never Substance use type: does not use Do You Feel Safe in your Home?: Yes Lack of Transportation: No Lack of Food: Never True Current Housing: I Have Housing Concerned About Future Housing: No Difficulty Paying Gas/Electric Bills: No Difficulty Paying for Meds: No Currently Unemployed: No Education: High School Diploma/GED Difficulty w/ Childcare or Family Care: No Living arrangements: care home Additional living arrangements comments: Resident of [facility]. Additional occupation/education comments: Retired. Spiritual care concerns: No Meds Home Medications and Allergies Home Medications ?Medication ?Instructions ?Recorded ?Confirmed ?Type pregabalin 150 mg capsule (Lyrica) 150 mg PO BID #60 caps 02/03/21 03/19/25 Rx folic acid 1 mg tablet 1 mg PO DAILY #90 tabs 03/30/21 03/19/25 Rx acetaminophen 650 mg 650 mg PO Q6H PRN Mild Pain (Scale 10/09/21 03/19/25 History tablet,extended release Score 1-4) carvedilol 3.125 mg tablet (Coreg) 3.125 mg PO BID 10/09/21 03/19/25 History magnesium hydroxide 400 mg/5 mL 400 mg PO Q72H PRN Constipation 10/09/21 03/19/25 History oral suspension (Milk of Magnesia) ondansetron 4 mg disintegrating 4 mg PO Q6H PRN nausea and 10/09/21 03/19/25 History tablet vomitting trazodone 300 mg tablet 50 mg PO HS 10/09/21 03/19/25 History apixaban 2.5 mg tablet (Eliquis) 2.5 mg PO BID 01/12/23 03/19/25 History bupropion HCl 75 mg tablet 75 mg PO DAILY 01/12/23 03/19/25 History furosemide 40 mg tablet 40 mg PO QAM 01/12/23 03/19/25 History guaifenesin 600 mg tablet, 1,200 mg PO BID 01/12/23 03/19/25 History extended release 12 hr pantoprazole 40 mg tablet,delayed 40 mg PO QAM 01/12/23 03/19/25 History release (Protonix) sodium phosphates 19 gram-7 118 ml RECTAL ONCE PRN Constipation 01/12/23 03/19/25 History gram/118 mL enema (Fleet Enema) hydrocodone 5 mg-acetaminophen 325 2 tablet PO QID Pain (Scale Score 05/24/23 03/19/25 History mg tablet 7-10) umeclidinium 62.5 mcg-vilanterol 1 inh inhalation DAILY 08/16/23 03/19/25 History 25 mcg/actuation powdr for inhalation (Anoro Ellipta) albuterol sulfate 2.5 mg/3 mL 2.5 mg inhalation QID PRN SOB 04/18/24 03/19/25 History (0.083 %) solution for nebulization azelastine 137 mcg (0.1 %) nasal 137 mcg intranasal BID 04/18/24 03/19/25 History spray omega 5-wcd-jdt-fish oil 1,000 mg 1 cap PO DAILY 04/18/24 03/19/25 History (120 mg-180 mg) capsule (Fish Oil) artificial tears solution eye drops 1 drp ophthalmic (eye) BID dry eyes 04/21/24 03/19/25 History cholecalciferol (vitamin D3) 25 25 mcg PO DAILY 04/21/24 03/19/25 History mcg (1,000 unit) tablet emollient combination no.110 1 ea topical DAILY 04/21/24 03/19/25 History (Eucerin Intensive Repair lotion) hydrocortisone 2.5 % topical cream 1 applic topical QID PRN Itching 04/21/24 03/19/25 History ipratropium 0.5 mg-albuterol 3 mg 3 ml inhalation Q6H PRN SOB 04/21/24 03/19/25 History (2.5 mg base)/3 mL nebulization soln [id number]-qwkwuxei-ltaynyd 2 cap PO TID 04/21/24 03/19/25 History 24,000-76,000-120,000 unit capsule,delayed rel (Creon) loperamide 2 mg capsule 2 mg PO Q12H PRN Diarrhea 04/21/24 03/19/25 History ascorbic acid (vitamin C) 500 mg 500 mg PO BID 03/19/25 03/19/25 History tablet atorvastatin 40 mg tablet 40 mg PO QPM 03/19/25 03/19/25 History baclofen 10 mg tablet 10 mg PO Q6H 03/19/25 03/19/25 History bisacodyl 10 mg rectal suppository 10 mg RECTAL DAILY PRN constipation 03/19/25 03/19/25 History cyanocobalamin (vitamin B-12) 500 500 mcg PO DAILY 03/19/25 03/19/25 History mcg tablet (B-12 DOTS) diclofenac sodium 1 % topical gel 4.5 inch topical QID 03/19/25 03/19/25 History (Arthritis Pain (diclofenac)) diclofenac sodium 50 mg 50 mg PO Q12H 03/19/25 03/19/25 History tablet,delayed release diphenhydramine HCl 25 mg capsule 25 mg PO Q6H PRN itching 03/19/25 03/19/25 History (Allergy Medication) ferrous sulfate 325 mg (65 mg 325 mg PO TID 03/19/25 03/19/25 History iron) tablet fexofenadine 180 mg tablet 180 mg PO DAILY 03/19/25 03/19/25 History (Lea Allergy) hydrocodone 10 mg-acetaminophen 1 tablet PO QID 03/19/25 03/19/25 History 325 mg tablet hydrocortisone 1 % topical cream 1 applic topical HS PRN itching 03/19/25 03/19/25 History (Preparation H Hydrocortisone) magnesium citrate (Citroma oral 296 ml PO DAILY PRN constipation 03/19/25 03/19/25 History solution) meropenem 1 gram intravenous 1 g IV Q24H 03/19/25 03/19/25 History solution methotrexate sodium 7.5 mg tablet 7.5 mg PO WEEKLY 03/19/25 03/19/25 History (Trexall) multivitamin (Daily Multi-Vitamin 1 tablet PO DAILY 03/19/25 03/19/25 History tablet) pantoprazole 40 mg tablet,delayed 40 mg PO QAM 03/19/25 03/19/25 History release (Protonix) sennosides 8.6 mg capsule (senna) 8.6 mg PO BID 03/19/25 03/19/25 History sodium chloride 0.9 % See Rx Instructions .Route .COMPLEX 03/19/25 03/19/25 History triamcinolone acetonide 0.1 % 1 applic topical BID 03/19/25 03/19/25 History topical cream Allergies Allergy/AdvReac Type Severity Reaction Status Date / Time ceftriaxone (From Rocephin) Allergy Intermediate Rash Verified 03/19/25 17:14 Sulfa (Sulfonamide Allergy Intermediate Rash Verified 03/19/25 17:14 Antibiotics) morphine AdvReac Mild Hallucinati Verified 03/19/25 17:14 ng Vital Signs Vital Signs - 24 hr 03/19/25 09:23 03/19/25 09:30 03/19/25 09:30 Temperature 98.2 F Pulse Rate 70 76 Respiratory Rate 16 16 Blood Pressure 164/80 H 164/80 H Pulse Oximetry 98 98 98 Oxygen Delivery Nasal Cannula Nasal Cannula Oxygen Flow Rate 2 2 03/19/25 09:31 03/19/25 09:47 03/19/25 11:00 Temperature Pulse Rate 73 82 75 Respiratory Rate 12 17 22 H Blood Pressure 165/91 H 151/73 H 134/72 Pulse Oximetry 98 94 98 Oxygen Delivery Oxygen Flow Rate 03/19/25 11:46 03/19/25 12:03 03/19/25 12:17 Temperature Pulse Rate 75 81 84 Respiratory Rate 18 17 20 Blood Pressure 134/68 151/74 H 153/73 H Pulse Oximetry 96 97 96 Oxygen Delivery Oxygen Flow Rate 03/19/25 12:31 03/19/25 12:47 Temperature Pulse Rate 79 79 Respiratory Rate 14 15 Blood Pressure 162/87 H 144/89 H Pulse Oximetry 93 94 Oxygen Delivery Oxygen Flow Rate Exam Narrative: General: well appearing, appears stated age. HEENT: normocephalic, atraumatic. Mucous membranes moist. EOMI, PERRLA, bilateral sclera anicteric, no conjunctival injection. Neck supple without JVD, lymphadenopathy, or bruit. Respiratory: Inspiratory and expiratory wheezes, positive cough with sputum Cardiovascular: Regular rate and rhythm, normal S1-S2 upon ascultation. No murmurs, rubs, or clicks. PMI is nondisplaced, capillary refill less than 3 second. Abdomen: Soft, round, no pulsatile masses, nondistended and nontender. No rebo und, no guarding. No CVA tenderness, no hepatosplenomegaly. Bowel sounds present to all four quadrants. No high pitch or tinkling sounds, resonant to percussion. Extremities: No cyanosis, clubbing, or edema present. Pulses are palpable 2/2. Active ROM to all four extremities. Neuro: Alert and orientated x 1. PERRLA. Cranial nerves 2-12 intact without focal deficit. Skin: Warm, dry, and intact, without rash, erythema, or lesion. Psych: pleasant, cooperative, normal speech, normal affect, no hallucinations, no dysarthia H&P: Results Labs Labs: Short CBC 03/19/25 Range/Units 10:43 WBC 9.9 (4.5-10.0) K/mm3 Hgb 10.3 L (12.0-15.0) g/dL Hct 33.1 L (37.0-47.0) % Plt Count 239 (150-375) k/mm3 BMP 03/19/25 10:43 Sodium 140 Potassium 3.6 Chloride 101 Carbon Dioxide 34 H BUN 10 D Creatinine 0.70 Glucose 110 Calcium 8.8 Cardiac Enzymes 03/19/25 Range/Units 10:43 Troponin I < 0.012 (0.000-0.034) ng/mL Liver Function 03/19/25 Range/Units 10:43 Total Bilirubin 0.3 (0.2-1.3) mg/dL AST 26 (14-36) U/L ALT 14 (6-35) U/L Alkaline Phosphatase 52 (38-126) U/L Albumin 3.7 (3.5-5.1) g/dL Urine 03/19/25 Range/Units 11:38 Urine Color Yellow (Yellow) Urine Appearance Clear (Clear) Urine pH 6.5 (5.0-9.0) Ur Specific [place] 1.018 (1.001-1.035) Urine Protein Negative (Negative) mg/dL Urine Glucose (UA) Negative (Negative) mg/dL Assessment and Plan Assessment and plan (1) Acute on chronic respiratory failure with hypoxia and hypercapnia: Code(s): J96.21 - Acute and chronic respiratory failure with hypoxia; J96.22 - Acute and chronic respiratory failure with hypercapnia Status: Acute Assessment and Plan: DuoNebs q.6 Solu-Medrol Antibiotics Guaifenesin (2) Pneumonia: Qualifiers: Laterality: bilateral Lung location: lower lobe of lung Pneumonia type: due to unspecified organism Qualified Code(s): J18.9 - Pneumonia, unspeci fied organism Code(s): J18.9 - Pneumonia, unspecified organism Status: Acute Assessment and Plan: Patient started on Rocephin and azithromycin (3) Diastolic congestive heart failure: Code(s): I50.30 - Unspecified diastolic (congestive) heart failure Status: Acute (4) Hypomagnesemia: Code(s): E83.42 - Hypomagnesemia Status: Acute Assessment and Plan: Daily magnesium PT as needed (5) HTN (hypertension): Qualifiers: Hypertension type: unspecified Qualified Code(s): I10 - Essential (primary) hypertension Code(s): I10 - Essential (primary) hypertension Status: Chronic Assessment and Plan: Continue home medication (6) Anemia of chronic disease: Code(s): D63.8 - Anemia in other chronic diseases classified elsewhere Status: Acute Assessment and Plan: No signs of acute bleeding Okay to continue Eliquis (7) Altered mental status: Qualifiers: Altered mental status type: disorientation Qualified Code(s): R41.0 - Disorientation, unspecified Code(s): R41.82 - Altered mental status, unspecified Status: Acute Assessment and Plan: Hold sedated medications (8) Pulmonary embolism: Code(s): I26.99 - Other pulmonary embolism without acute cor pulmonale Status: Acute Assessment and Plan: Continue home Eliquis (9) Pancreatitis: Code(s): K85.90 - Acute pancreatitis without necrosis or infection, unspecified Status: Acute Assessment and Plan: Continue Creon (10) Diarrhea: Code(s): R19.7 - Diarrhea, unspecified Status: Acute Assessment and Plan: Continue Imodium (11) Osteoarthritis of bilateral glenohumeral joints: Code(s): M19.011 - Primary osteoarthritis, right shoulder; M19.012 - Primary osteoarthritis, left shoulder Status: Acute Assessment and Plan: Continue methotrexate Quality VTE Prophylaxis VTE prophylaxis: mechanical ordered and pharmacologic ordered Hospitalist [facility] Advance Care Plan I have confirmed that the patient's Advanced Care Plan is present, code status is documented, or surrogate decision maker is listed in patient medical record.: Yes Medication Reconciliation I have utilized all available resources to obtain, update and review the patients current medications (includes all prescriptions, OTC, herbals, cannabis, and nutritional supplements).: Yes
[2025-03-19] MEDS: AZITHROMYCIN 500 MG/NS 250 ML 500 MG/250 ML BAG 250 MG IVPB (14:04)
--- NOTE | 2025-03-19 15:07 | ADMGEN ---
This patient, Gabbi Champagne, was admitted to Medical Room 341-01. Patient/family oriented to hospital policies and general routines including ID bracelet, bed and alarms, visiting hours, pain management, procedures, bathroom and other care routines, personal items, smoking policy, room service/diet, and visiting hours. Information on how to activate the Rapid Response Team has been discussed. Patient/Family are encouraged to report perceived risks to care and to ask questions if they do not understand what they are told or what they should do.
[2025-03-19] MEDS: IPRATROPIUM 0.5 MG/ALBUTEROL SULFATE 2.5 MG AMPUL.NEB 3 ML INHALATION (20:51)
[2025-03-20] VITALS (18 sets, daily range): BP systolic 136–147; BP diastolic 68–78; PULSE 71–102; RESP 16–20; TEMP 36.5–37.1; O2SAT 93–98
[2025-03-20] MEDS: HYDROcodone/acetaminophen (*CRX) 5-325 MG TABLET 2 TAB PO (00:54)
[2025-03-20] MEDS: IPRATROPIUM 0.5 MG/ALBUTEROL SULFATE 2.5 MG AMPUL.NEB 3 ML INHALATION ×4 (02:27→21:13)
[2025-03-20] MEDS: ACETAMINOPHEN 325 MG TABLET 650 MG PO (05:27)
[2025-03-20] MEDS: LOPERAMIDE HCL 2 MG CAPSULE PO (05:27)
[2025-03-20 05:34] LABS: Hematocrit 32.2 % (37.0-47.0); Hemoglobin 10.3 g/dL (12.0-15.0); Immature Granulocyte Percent A 3.1 % (0-0.5); Lymphocytes Absolute Auto 0.74 K/mm3 (0.9-3.2); Mean Corpuscular HGB Conc 32.0 g/dl (32-36); Mean Corpuscular Hemoglobin 31.4 pg (26-34); Mean Corpuscular Volume 98.2 fl (80-100); Nucleated Red Blood Cells Absolute Auto 0.000 K/mm3 (0.0-0.012); Nucleated Red Blood Cells Perc 0.0 % (0.0-0.2); Platelet Count Result 265 k/mm3 (150-375); Red Blood Count 3.28 M/mm3 (4.2-5.4); White Blood Count 12.0 K/mm3 (4.5-10.0)
[2025-03-20 05:53] LABS: Anion Gap 9 mmol/L (4-12); Blood Urea Nitrogen 13 mg/dL (7-17); Calcium 8.9 mg/dL (8.4-10.2); Carbon Dioxide 30 mmol/L (22-30); Chloride 101 mmol/L (98-107); Estimated CRCL calculation 48 ml/min; Estimated Glomerular Filt Rate > 60; Glucose 193 mg/dL (65-110); Potassium 3.3 mmol/L (3.4-5.0); Sodium 140 mmol/L (137-145)
[2025-03-20] MEDS: UMECLIDINIUM/VILANTEROL 62.5-25 MCG ELLIPTA 1 PUFF INHALATION (07:44)
[2025-03-20] MEDS: APIXABAN 2.5 MG TABLET PO ×2 (08:39→17:46)
[2025-03-20] MEDS: HYDROcodone/acetaminophen (*CRX) 10-325 MG TABLET 1 TAB PO ×4 (08:39→21:23)
[2025-03-20] MEDS: PREGABALIN (*CRX) 75 MG CAPSULE 150 MG PO ×2 (08:39→17:46)
[2025-03-20] MEDS: FUROSEMIDE 40 MG TABLET PO (08:39)
[2025-03-20] MEDS: LIPASE/AMYLASE/PROTEASE 12,000 UNITS CAP 4 CAP PO ×3 (08:39→17:46)
[2025-03-20] MEDS: AZITHROMYCIN 500 MG/NS 250 ML 500 MG/250 ML BAG 250 MG IVPB (08:40)
--- NOTE | 2025-03-20 11:03 | P.PNIM_ITS ---
Progress Note: A&P Assessment and Plan (1) Acute on chronic respiratory failure with hypoxia and hypercapnia: Code(s): J96.21 - Acute and chronic respiratory failure with hypoxia; J96.22 - Acute and chronic respiratory failure with hypercapnia Status: Acute Assessment and Plan: Patient presented with worsening shortness a breath chronically fpc wears 2-3 L of supplemental oxygen due to chronic COPD, ABG did show acute on chronic hypoxia with hypercapnia. CXR showing bilateral pneumonia likely secondary pneumonia and COPD exacerbation * DuoNebs q.6 * prednisone 40 mg daily * azithromycin and meropenem to cover UTI as well * Guaifenesin * wean O2 to baseline * incentive spirometer while awake * blood cultures pending (2) Pneumonia: Qualifiers: Laterality: bilateral Lung location: lower lobe of lung Pneumonia type: due to unspecified organism Qualified Code(s): J18.9 - Pneumonia, unspecified organism Code(s): J18.9 - Pneumonia, unspecified organism Status: Acute Assessment and Plan: SEE ABOVE (3) COPD (chronic obstructive pulmonary disease): Qualifiers: COPD type: unspecified COPD Qualified Code(s): J44.9 - Chronic obstructive pulmonary disease, unspecified Code(s): J44.9 - Chronic obstructive pulmonary disease, unspecified Status: Chronic Assessment and Plan: patient with chronic COPD versus 2-3 L of home oxygen at fpc * SEE ABOVE (4) Diastolic congestive heart failure: Code(s): I50.30 - Unspecified diastolic (congestive) heart failure Status: Acute Assessment and Plan: CXR showed possible underlying pulmonary edema as well. patient's last echocardiogram on 08/2023 showed diastolic dysfunction with LVEF of 60-65% * resume patient's oral furosemide daily * monitor for fluid overload * daily weights (5) Hypomagnesemia: Code(s): E83.42 - Hypomagnesemia Status: Acute Assessment and Plan: magnesium was 1.3 POA given 2 g magnesium in the ED * Daily magnesium * replenish as needed keep greater than 2.0 (6) HTN (hypertension): Qualifiers: Hypertension type: unspecified Qualified Code(s): I10 - Essential (primary) hypertension Code(s): I10 - Essential (primary) hypertension Status: Chronic Assessment and Plan: * resume losartan and carvedilol * monitor per unit protocol (7) Anemia of chronic disease: Code(s): D63.8 - Anemia in other chronic diseases classified elsewhere Status: Acute Assessment and Plan: hemoglobin reviewed and stable no signs of active bleed * continued Margaretquleonardo * continued her ferrous sulfate * will trend H and H transfuse PRBCs <7.0 (8) Diarrhea: Code(s): R19.7 - Diarrhea, unspecified Status: Acute Assessment and Plan: * Continue Imodium (9) Osteoarthritis of bilateral glenohumeral joints: Code(s): M19.011 - Primary osteoarthritis, right shoulder; M19.012 - Primary osteoarthritis, left shoulder Status: Acute Assessment and Plan: * Continue methotrexate (10) Exocrine pancreatic insufficiency: Code(s): K86.81 - Exocrine pancreatic insufficiency Status: Chronic Assessment and Plan: * Continue Creon (11) UTI (urinary tract infection): Code(s): N39.0 - Urinary tract infection, site not specified Status: Acute Assessment and Plan: on patient's medication list it showed meropenem for ESBL cystitis IV patient also presented with a midline attempting to find out have any doses patient had received. UA suspicious for urinary tract infection * switched ceftriaxone to meropenem for ESBL coverage until completed therapy can be identified Plan -Patient's previous records reviewed on admission -ER notes reviewed in detail on admission -discussed all findings and current treatment plan with patient/Family/POA -Consultations reviewed for recommendations -Patient's disposition for safe discharge discussed with adult protective caseworker Dictation performed by [employer] direct speech recognition software, therefore bonded structures repairer variants and typographical errors may occur. Time Spent With Patient Time with patient: 15 - 25 minutes Subjective Date/time seen: 03/20/25 11:03 Interval history: Patient is an 80-year-old female admitted for acute on chronic respiratory failure with hypoxia and hypercapnia secondary to bilateral pneumonia. 03/20/2025: Assuming Care Patient with SOB and productive cough only complaint is the food is bad otherwise feeling better. Denied CP, N/V. Review of Systems Review of Systems: 12 systems were reviewed and are negativ e except for as per HPI. All systems reviewed & are unremarkable except as noted in HPI and below Exam Narrative: General: NAD HEENT: normocephalic, atraumatic. Respiratory: Inspiratory and expiratory wheezes, positive cough with sputum Cardiovascular: RRR Abdomen: Soft, round, Extremities: No cyanosis, clubbing, or edema present. Neuro: Alert and orientated x 1to 2 . Skin: Warm, dry, and intact, without rash, erythema, or lesion. Psych: pleasant, cooperative, Objective Data Vital Signs Vital Signs: Vital Signs - 24 hr 03/19/25 11:46 03/19/25 12:03 03/19/25 12:17 Temperature Pulse Rate 75 81 84 Respiratory Rate 18 17 20 Blood Pressure 134/68 151/74 H 153/73 H Pulse Oximetry 96 97 96 Oxygen Delivery Oxygen Flow Rate 03/19/25 12:31 06/18/25 12:47 03/19/25 14:05 Temperature Pulse Rate 79 79 88 Respiratory Rate 14 15 20 Blood Pressure 162/87 H 144/89 H 152/66 H Pulse Oximetry 93 94 95 Oxygen Delivery Oxygen Flow Rate 03/19/25 18:43 03/19/25 19:26 03/19/25 20:00 Temperature 98.8 F Pulse Rate 88 102 H 88 Respiratory Rate 20 16 20 Blood Pressure 133/105 H Pulse Oximetry 95 95 95 Oxygen Delivery Nasal Cannula Nasal Cannula Oxygen Flow Rate 2 2 03/19/25 20:00 03/19/25 20:55 03/20/25 00:00 Temperature Pulse Rate 92 93 94 Respiratory Rate 18 Blood Pressure Pulse Oximetry Oxygen Delivery Oxygen Flow Rate 03/20/25 02:27 03/20/25 02:35 03/20/25 04:00 Temperature Pulse Rate 77 82 89 Respiratory Rate 16 18 Blood Pressure Pulse Oximetry Oxygen Delivery Oxygen Flow Rate 03/20/25 05:07 03/20/25 07:46 03/20/25 07:46 Temperature 97.7 F Pulse Rate 86 91 Respiratory Rate 16 20 Blood Pressure 147/78 H Pulse Oximetry 97 94 Oxygen Delivery Nasal Cannula Oxygen Flow Rate 2 03/20/25 07:55 03/20/25 08:00 03/20/25 08:00 Temperature Pulse Rate 93 101 H 102 H Respiratory Rate 20 20 Blood Pressure Pulse Oximetry 94 Oxygen Delivery Nasal Cannula Oxygen Flow Rate 2 03/20/25 08:41 Temperature Pulse Rate 101 H Respiratory Rate Blood Pressure Pulse Oximetry Oxygen Delivery Oxygen Flow Rate Intake/Output Intake/Output: Intake & Output 03/17/25 03/18/25 03/19/25 03/20/25 23:59 23:59 23:59 23:59 Intake Total 320 370 Balance 320 370 Meds/Results Medications: Active Medications Generic Name Dose Route Start Last Admin Trade Name Freq PRN Reason Stop Dose Admin Acetaminophen 650 mg 03/19/25 12:38 03/20/25 05:27 Acetaminophen 325 Mg Tablet PO 650 mg Q4H PRN Administration Mild Pain (1-3) or Fever Hydrocodone Bitart/Acetaminophen 1 tab 03/20/25 09:00 03/20/25 08:39 Hydrocodone/Acetaminophen (*Crx) 10-325 Mg Tablet PO 1 tab QID DOC Administration Albuterol/Ipratropium 3 ml 03/19/25 14:00 03/20/25 08:38 Ipratropium 0.5 Mg/Albuterol Sulfate 2.5 Mg Ampul.Neb 3 Ml INHALATION Not Given Q6HRT DOC Albuterol/Ipratropium 3 ml 03/20/25 10:56 Ipratropium 0.5 Mg/Albuterol Sulfate 2.5 Mg Ampul.Neb 3 Ml INHALATION Q6H PRN Shortness Of Breath Lipase/Protease/Amylase 4 cap 03/20/25 09:00 03/20/25 08:39 Lipase/Amylase/Protease 12,000 Units Cap PO 4 cap TID DOC Administration Apixaban 2.5 mg 03/20/25 09:00 03/20/25 08:39 Apixaban 2.5 Mg Tablet PO 2.5 mg BID DOC Administration Ascorbic Acid 500 mg 03/20/25 17:00 Ascorbic Acid 500 Mg Tablet PO BID DOC Atorvastatin Calcium 40 mg 03/20/25 18:00 Atorvastatin 40 Mg Tablet PO QPM DOC Bisacodyl 10 mg 03/20/25 10:56 Bisacodyl 10 Mg Suppository RECTAL DAILY PRN constipation Bupropion HCl 75 mg 03/20/25 09:00 03/20/25 08:42 Bupropion Hcl 75 Mg Tablet PO 75 mg DAILY DOC Administration Carvedilol 3.125 mg 03/20/25 09:00 03/20/25 08:41 Carvedilol 3.125 Mg Tablet PO 3.125 mg Q12HR DOC Administration Dextrose 12.5 gm 03/19/25 12:38 Dextrose 50% 25 Gm/50 Ml Syringe IV PUSH PRN PRN Hypoglycemia Protocol Furosemide 40 mg 03/20/25 09:00 03/20/25 08:39 Furosemide 40 Mg Tablet PO 40 mg QAM DOC Administration Glucagon 1 mg 03/19/25 12:38 Glucagon For Inj 1 Mg Vial IM PRN PRN Hypoglycemia Protocol Glucose 15 gm 03/19/25 12:38 Glucose Oral Gel 15 Gm Of Glucse In 37.5 Gm Tube PO PRN PRN Hypoglycemia Protocol Guaifenesin/Dextromethorphan 10 ml 03/19/25 23:38 Guaifenesin/Dextromethorphan 10 Ml Udc PO Q4H PRN Cough Ceftriaxone Sodium 1 gm in 50 mls @ 100 mls/hr 03/20/25 09:00 03/20/25 08:40 Rocephin 1 Gm/Ns 50 Ml IVPB 100 mls/hr Q24H DOC Administration Azithromycin 500 mg in 250 mls @ 250 mls/hr 03/20/25 09:00 03/20/25 10:15 Zithromax IVPB Infused Q24H DOC Infusion Dextrose 1,000 mls @ 100 mls/hr 03/19/25 12:38 Dextrose 5% 1,000 Ml IVPB PRN PRN Hypoglycemia Protocol Loperamide HCl 2 mg 03/19/25 22:22 03/20/25 05:27 Loperamide Hcl 2 Mg Capsule PO 2 mg Q12H PRN Administration Diarrhea Methotrexate 7.5 mg 03/21/25 09:00 Methotrexate 2.5 Mg Tab (*Chemo) PO WEEKLY [facility] Multivitamins Therapeutic 1 tablet 03/21/25 09:00 Multivitamins Therapeutic Tab (*Bkc) PO DAILY [facility] Non-Formulary Medication 1 drop 03/20/25 17:00 Artificial Tears Solution EACH EYE 04/19/25 16:59 BID [facility] Non-Formulary Medication 8.6 mg 03/20/25 17:00 Sennosides [Senna] PO 04/19/25 16:59 BID [facility] Pantoprazole Sodium 40 mg 03/21/25 09:00 Pantoprazole 40 Mg Tablet PO QAM [facility] Potassium Chloride 40 meq 03/20/25 11:02 Potassium Chloride 20 Meq Er Tablet PO 03/20/25 11:03 ONCE ONE Prednisone 40 mg 03/21/25 08:00 Prednisone 20 Mg Tablet PO DAILY@0800 [facility] Pregabalin 150 mg 03/20/25 09:00 03/20/25 08:39 Pregabalin (*Crx) 75 Mg Capsule PO 150 mg BID [facility] Administration Senna/Docusate Sodium 1 tab 03/19/25 21:00 03/19/25 20:34 Senna/Docusate Sodium Tablet PO Not Given HS [facility] Trazodone HCl 50 mg 03/20/25 21:00 Trazodone Hcl 50 Mg Tablet PO HS [facility] Umeclidinium/Vilanterol 1 puff 03/20/25 08:00 03/20/25 07:44 Umeclidinium/Vilanterol 62.5-25 Mcg Ellipta INHALATION 1 puff DAILYRT DOC Administration Radiology Results: ITS Impressions Chest X-Ray 03/19/25 11:38 IMPRESSION: Bilateral pneumonia. Underlying pulmonary edema is not excluded. Labs Labs: Laboratory Results - last 24 hr 03/19/25 03/19/25 03/20/25 10:43 11:38 05:05 WBC 12.0 H RBC 3.28 L Hgb 10.3 L Hct 32.2 L MCV 98.2 MCH 31.4 MCHC 32.0 RDW 12.2 Plt Count 265 MPV 11.4 H Immature Gran % (Auto) 3.1 H Neut % (Auto) 89.9 H Lymph % (Auto) 6.2 L [place] % (Auto) 0.6 L Eos % (Auto) 0.0 Baso % (Auto) 0.2 Lymph # (Auto) 0.74 L [place] # (Auto) 0.1 Eos # (Auto) 0.0 Baso # (Auto) 0.0 Abs Immat Gran (auto) 0.37 H Absolute Neuts (auto) 10.8 H Absolute Nucleated RBC 0.000 Nucleated RBC % 0.0 PT 15.1 H INR 1.2 APTT 50.3 H Sodium 140 140 Potassium 3.6 3.3 L Chloride 101 101 Carbon Dioxide 34 H 30 Anion Gap 5 9 BUN 10 D 13 Creatinine 0.70 0.75 Estim Creat Clear Calc 53 48 Estimated GFR > 60 > 60 Glucose 110 193 H Lactic Acid 0.9 Calcium 8.8 8.9 Magnesium 1.3 L Total Bilirubin 0.3 AST 26 ALT 14 Alkaline Phosphatase 52 Troponin I < 0.012 NT-Pro-B Natriuret Pep 267 H Total Protein 7.2 Albumin 3.7 Urine Color Yellow Urine Appearance Clear Urine pH 6.5 Ur Specific [place] 1.018 Urine Protein Negative Urine Glucose (UA) Negative Urine Ketones 1+ H Ur Blood (Man) Negative Urine Nitrate Negative Urine Bilirubin Negative Urine Urobilinogen 1.0 Leukocyte Esterase Rfl Negative Influenza A (RT-PCR) Negative Influenza B (RT-PCR) Negative RSV (RT-PCR) Negative SARS-CoV-2 RNA (RT-PCR) Negative Quality VTE Prophylaxis VTE prophylaxis: mechanical ordered and pharmacologic ordered -Patient's previous records reviewed on admission -ER notes reviewed in detail on admission -discussed all findings and current treatment plan with patient/Family/POA -Consultations reviewed for recommendations -Patient's disposition for safe discharge discussed with adult protective caseworker Dictation performed by [employer] direct speech recognition software, therefore bonded structures repairer variants and typographical errors may occur. Hospitalist MIPS Advance Care Plan I have confirmed that the patient's Advanced Care Plan is present, code status is documented, or surrogate decision maker is listed in patient medical record.: Yes Medication Reconciliation I have utilized all available resources to obtain, update and review the patients current medications (includes all prescriptions, OTC, herbals, cannabis, and nutritional supplements).: Yes The patient is not eligible for med reconciliation; the patient is in a emergent medical situation where delaying treatment would jeopardize the patients health.: No
[2025-03-20 11:22] LABS: Magnesium 1.8 mg/dL (1.6-2.3)
[2025-03-20] MEDS: ASCORBIC ACID 500 MG TABLET PO ×2 (12:27→21:23)
[2025-03-20] MEDS: PANTOPRAZOLE 40 MG TABLET PO (12:27)
[2025-03-20] MEDS: POTASSIUM CHLORIDE 20 MEQ ER TABLET 40 MEQ PO (12:27)
[2025-03-20] MEDS: ATORVASTATIN 40 MG TABLET PO (17:46)
[2025-03-20] MEDS: SENNOSIDES 8.6 MG TABLET PO (17:46)
[2025-03-20] MEDS: ARTIFICIAL TEARS OPHTH SOLN 15 ML BOTTLE 1 DROP EACH EYE (17:47)
[2025-03-20] MEDS: SALINE LOCK FLUSH 10 ML IV PUSH ×2 (17:47→21:24)
[2025-03-20] MEDS: MEROPENEM 1 GM/NS 100 ML 1 GM/100 ML BAG IVPB (21:23)
[2025-03-20] MEDS: diphenhydrAMINE HCl CAP 25 MG CAPSULE PO (21:42)
[2025-03-21] VITALS (19 sets, daily range): BP systolic 115–136; BP diastolic 52–70; PULSE 61–86; RESP 16–20; TEMP 36.4–36.8; O2SAT 94–99
[2025-03-21] MEDS: IPRATROPIUM 0.5 MG/ALBUTEROL SULFATE 2.5 MG AMPUL.NEB 3 ML INHALATION ×4 (01:30→20:23)
[2025-03-21 05:52] LABS: Hematocrit 31.1 % (37.0-47.0); Hemoglobin 9.8 g/dL (12.0-15.0); Mean Corpuscular HGB Conc 31.5 g/dl (32-36); Mean Corpuscular Hemoglobin 31.5 pg (26-34); Mean Corpuscular Volume 100.0 fl (80-100); Platelet Count Result 258 k/mm3 (150-375); Red Blood Count 3.11 M/mm3 (4.2-5.4); White Blood Count 19.9 K/mm3 (4.5-10.0)
[2025-03-21 06:43] LABS: Alanine Aminotransferase 15 U/L (6-35); Albumin Level 3.5 g/dL (3.5-5.1); Alkaline Phosphatase 39 U/L (38-126); Anion Gap 8 mmol/L (4-12); Aspartate Amino Transferase 26 U/L (14-36); Bilirubin,Total 0.2 mg/dL (0.2-1.3); Blood Urea Nitrogen 20 mg/dL (7-17); Calcium 8.8 mg/dL (8.4-10.2); Carbon Dioxide 31 mmol/L (22-30); Chloride 100 mmol/L (98-107); Estimated CRCL calculation 46 ml/min; Estimated Glomerular Filt Rate > 60; Glucose 122 mg/dL (65-110); Magnesium 1.8 mg/dL (1.6-2.3); Potassium 4.4 mmol/L (3.4-5.0); Sodium 139 mmol/L (137-145); Total Protein 6.6 g/dL (6.3-8.2)
[2025-03-21] MEDS: UMECLIDINIUM/VILANTEROL 62.5-25 MCG ELLIPTA 1 PUFF INHALATION (08:45)
[2025-03-21] MEDS: LIPASE/AMYLASE/PROTEASE 12,000 UNITS CAP 4 CAP PO ×3 (09:06→15:55)
[2025-03-21] MEDS: METHOTREXATE 2.5 MG TAB (*CHEMO) 7.5 MG PO (09:07)
[2025-03-21] MEDS: ASCORBIC ACID 500 MG TABLET PO ×2 (09:07→21:33)
[2025-03-21] MEDS: AZITHROMYCIN 250 MG TABLET 500 MG PO (09:07)
[2025-03-21] MEDS: APIXABAN 2.5 MG TABLET PO ×2 (09:08→16:02)
[2025-03-21] MEDS: SENNOSIDES 8.6 MG TABLET PO ×2 (09:08→16:02)
[2025-03-21] MEDS: MULTIVITAMINS THERAPEUTIC TAB (*BKC) 1 TABLET PO (09:08)
[2025-03-21] MEDS: PREGABALIN (*CRX) 75 MG CAPSULE 150 MG PO ×2 (09:08→16:01)
[2025-03-21] MEDS: PANTOPRAZOLE 40 MG TABLET PO (09:08)
[2025-03-21] MEDS: FUROSEMIDE 40 MG TABLET PO (09:08)
[2025-03-21] MEDS: HYDROcodone/acetaminophen (*CRX) 10-325 MG TABLET 1 TAB PO ×4 (09:08→21:33)
[2025-03-21] MEDS: ARTIFICIAL TEARS OPHTH SOLN 15 ML BOTTLE 1 DROP EACH EYE ×2 (09:09→16:10)
[2025-03-21] MEDS: MEROPENEM 1 GM/NS 100 ML 1 GM/100 ML BAG IVPB ×2 (09:10→21:29)
[2025-03-21] MEDS: SALINE LOCK FLUSH 10 ML IV PUSH ×3 (09:26→21:33)
--- NOTE | 2025-03-21 15:12 | P.PNIM_ITS ---
Progress Note: A&P Assessment and Plan (1) Acute on chronic respiratory failure with hypoxia and hypercapnia: Code(s): J96.21 - Acute and chronic respiratory failure with hypoxia; J96.22 - Acute and chronic respiratory failure with hypercapnia Status: Acute Assessment and Plan: Patient presented with worsening shortness a breath chronically correction wears 2-3 L of supplemental oxygen due to chronic COPD, ABG did show acute on chronic hypoxia with hypercapnia. CXR showing bilateral pneumonia likely secondary pneumonia and COPD exacerbation * DuoNebs q.6 * prednisone 40 mg daily * azithromycin and meropenem to cover UTI as well * Guaifenesin * wean O2 to baseline * incentive spirometer while awake * blood cultures NGTD (2) Pneumonia: Qualifiers: Laterality: bilateral Lung location: lower lobe of lung Pneumonia type: due to unspecified organism Qualified Code(s): J18.9 - Pneumonia, unspecified organism Code(s): J18.9 - Pneumonia, unspecified organism Status: Acute Assessment and Plan: SEE ABOVE (3) COPD (chronic obstructive pulmonary disease): Qualifiers: COPD type: unspecified COPD Qualified Code(s): J44.9 - Chronic obstructive pulmonary disease, unspecified Code(s): J44.9 - Chronic obstructive pulmonary disease, unspecified Status: Chronic Assessment and Plan: patient with chronic COPD versus 2-3 L of home oxygen at correction * SEE ABOVE (4) Diastolic congestive heart failure: Code(s): I50.30 - Unspecified diastolic (congestive) heart failure Status: Acute Assessment and Plan: CXR showed possible underlying pulmonary edema as well. Patient's last echocardiogram on 08/2023 showed diastolic dysfunction with LVEF of 60-65% * resume patient's oral furosemide daily * monitor for fluid overload * daily weights (5) Hypomagnesemia: Code(s): E83.42 - Hypomagnesemia Status: Acute Assessment and Plan: magnesium was 1.3 POA given 2 g magnesium in the ED * Daily magnesium * replenish as needed keep greater than 2.0 (6) HTN (hypertension): Qualifiers: Hypertension type: unspecified Qualified Code(s): I10 - Essential (primary) hypertension Code(s): I10 - Essential (primary) hypertension Status: Chronic Assessment and Plan: * resume losartan and carvedilol * monitor per unit protocol (7) Anemia of chronic disease: Code(s): D63.8 - Anemia in other chronic diseases classified elsewhere Status: Acute Assessment and Plan: hemoglobin reviewed and stable no signs of active bleed * continued Margaretquleonardo * continued her ferrous sulfate * will trend H and H transfuse PRBCs <7.0 (8) Diarrhea: Code(s): R19.7 - Diarrhea, unspecified Status: Acute Assessment and Plan: * Continue Imodium (9) Osteoarthritis of bilateral glenohumeral joints: Code(s): M19.011 - Primary osteoarthritis, right shoulder; M19.012 - Primary osteoarthritis, left shoulder Status: Acute Assessment and Plan: * Continue methotrexate (10) Exocrine pancreatic insufficiency: Code(s): K86.81 - Exocrine pancreatic insufficiency Status: Chronic Assessment and Plan: * Continue Creon (11) UTI (urinary tract infection): Code(s): N39.0 - Urinary tract infection, site not specified Status: Acute Assessment and Plan: on patient's medication list it showed meropenem for ESBL cystitis IV patient also presented with a midline attempting to find out have any doses patient had received. UA suspicious for urinary tract infection * switched ceftriaxone to meropenem for ESBL coverage since unable to determine length of patient's therapy and was only receiving meropenem daily will continue to treat with IV meropenem b.i.d. while inpatient she can then transitioned to IV ertapenem daily upon discharge for a total 7 days of therapy Plan -Patient's previous records reviewed on admission -ER notes reviewed in detail on admission -discussed all findings and current treatment plan with patient/Family/POA -Consultations reviewed for recommendations -Patient's disposition for safe discharge discussed with manager of case management Dictation performed by [employer] direct speech recognition software, therefore managing director variants and typographical errors may occur. Time Spent With Patient Time with patient: 15 - 25 minutes Subjective Date/time seen: 03/21/25 15:12 Interval history: Patient is an 80-year-old female admitted for acute on chronic respiratory failure with hypoxia and hypercapnia secondary to bilateral pneumonia. 03/21/2025: Patient Productive cough is improving still with scattered wheezing but oxygen weaned to baseline. patient's WBC did bump monitor overnight could be reactive to prednisone. Patient denied any chest pain states she was feeling mildly better and denied any urinary complaints Review of Systems Review of Systems: 12 systems were reviewed and are negativ e except for as per HPI. All systems reviewed & are unremarkable except as noted in HPI and below Exam Narrative: General: NAD HEENT: normocephalic, atraumatic. Respiratory: Inspiratory and expiratory wheezes, positive cough with sputum Cardiovascular: RRR Abdomen: Soft, round, Extremities: No cyanosis, clubbing, or edema present. Neuro: Alert and orientated x 1to 2 . Skin: Warm, dry, and intact, without rash, erythema, or lesion. Psych: pleasant, cooperative, Objective Data Vital Signs Vital Signs: Vital Signs - 24 hr 03/20/25 15:25 03/20/25 15:37 03/20/25 16:00 Temperature Pulse Rate 71 74 82 Respiratory Rate 20 20 Blood Pressure Pulse Oximetry Oxygen Delivery Oxygen Flow Rate Fraction of Inspired Oxygen 03/20/25 20:00 03/20/25 20:00 03/20/25 20:31 Temperature 98.8 F Pulse Rate 84 79 Respiratory Rate 18 Blood Pressure Pulse Oximetry 93 96 Oxygen Delivery Nasal Cannula Oxygen Flow Rate 2 Fraction of Inspired Oxygen 03/20/25 21:14 03/20/25 21:14 03/20/25 21:23 Temperature Pulse Rate 78 82 87 Respiratory Rate 20 20 Blood Pressure Pulse Oximetry 97 Oxygen Delivery Oxygen Flow Rate 1 Fraction of Inspired Oxygen 03/21/25 00:00 03/21/25 01:30 03/21/25 04:00 Temperature Pulse Rate 86 62 61 Respiratory Rate 20 Blood Pressure Pulse Oximetry Oxygen Delivery Oxygen Flow Rate Fraction of Inspired Oxygen 03/21/25 05:52 03/21/25 08:00 03/21/25 08:00 Temperature 98 F Pulse Rate 64 76 Respiratory Rate 18 Blood Pressure 136/70 Pulse Oximetry 99 94 Oxygen Delivery Nasal Cannula Oxygen Flow Rate 2 Fraction of Inspired Oxygen 03/21/25 08:47 03/21/25 08:47 03/21/25 08:59 Temperature Pulse Rate 68 76 Respiratory Rate 16 16 Blood Pressure Pulse Oximetry 95 Oxygen Delivery Nasal Cannula Oxygen Flow Rate 2 Fraction of Inspired Oxygen 03/21/25 09:07 03/21/25 12:00 03/21/25 14:55 Temperature Pulse Rate 67 76 80 Respiratory Rate 20 Blood Pressure Pulse Oximetry Oxygen Delivery Oxygen Flow Rate Fraction of Inspired Oxygen 03/21/25 15:03 Temperature Pulse Rate 85 Respiratory Rate 20 Blood Pressure Pulse Oximetry Oxygen Delivery Oxygen Flow Rate Fraction of Inspired Oxygen Intake/Output Intake/Output: Intake & Output 03/18/25 03/19/25 03/20/25 03/21/25 23:59 23:59 23:59 23:59 Intake Total 320 1380 930 Balance 320 1380 930 Meds/Results Medications: Active Medications Generic Name Dose Route Start Last Admin Trade Name Freq PRN Reason Stop Dose Admin Acetaminophen 650 mg 03/19/25 12:38 03/20/25 05:27 Acetaminophen 325 Mg Tablet PO 650 mg Q4H PRN Administration Mild Pain (1-3) or Fever Hydrocodone Bitart/Acetaminophen 1 tab 03/20/25 09:00 03/21/25 12:22 Hydrocodone/Acetaminophen (*Crx) 10-325 Mg Tablet PO 1 tab QID DOC Administration Albuterol/Ipratropium 3 ml 03/19/25 14:00 03/21/25 14:54 Ipratropium 0.5 Mg/Albuterol Sulfate 2.5 Mg Ampul.Neb 3 Ml INHALATION 3 ml Q6HRT DOC Administration Albuterol/Ipratropium 3 ml 03/20/25 14:00 Ipratropium 0.5 Mg/Albuterol Sulfate 2.5 Mg Ampul.Neb 3 Ml INHALATION Q6HRT PRN Shortness Of Breath Lipase/Protease/Amylase 4 cap 03/20/25 09:00 03/21/25 12:22 Lipase/Amylase/Protease 12,000 Units Cap PO 4 cap TID DOC Administration Apixaban 2.5 mg 03/20/25 09:00 03/21/25 09:08 Apixaban 2.5 Mg Tablet PO 2.5 mg BID DOC Administration Artificial Tears 1 drop 03/20/25 17:00 03/21/25 09:09 Artificial Tears Ophth Soln 15 Ml Bottle EACH EYE 1 drop BID DOC Administration Ascorbic Acid 500 mg 03/20/25 11:05 03/21/25 09:07 Ascorbic Acid 500 Mg Tablet PO 500 mg Q12HRT DOC Administration Atorvastatin Calcium 40 mg 03/20/25 18:00 03/20/25 17:46 Atorvastatin 40 Mg Tablet PO 40 mg QPM DOC Administration Azithromycin 500 mg 03/21/25 09:00 03/21/25 09:07 Azithromycin 250 Mg Tablet PO 03/23/25 09:01 500 mg DAILY DOC Administration Bisacodyl 10 mg 03/20/25 10:56 Bisacodyl 10 Mg Suppository RECTAL DAILY PRN constipation Bupropion HCl 75 mg 03/20/25 09:00 03/21/25 09:08 Bupropion Hcl 75 Mg Tablet PO 75 mg DAILY DOC Administration Carvedilol 3.125 mg 03/20/25 09:00 03/21/25 09:07 Carvedilol 3.125 Mg Tablet PO 3.125 mg Q12HR DOC Administration Dextrose 12.5 gm 03/19/25 12:38 Dextrose 50% 25 Gm/50 Ml Syringe IV PUSH PRN PRN Hypoglycemia Protocol Diphenhydramine HCl 25 mg 03/20/25 21:21 03/20/25 21:42 Diphenhydramine Hcl Cap 25 Mg Capsule PO 25 mg Q6H PRN Administration Itching Furosemide 40 mg 03/20/25 09:00 03/21/25 09:08 Furosemide 40 Mg Tablet PO 40 mg QAM DOC Administration Glucagon 1 mg 03/19/25 12:38 Glucagon For Inj 1 Mg Vial IM PRN PRN Hypoglycemia Protocol Glucose 15 gm 03/19/25 12:38 Glucose Oral Gel 15 Gm Of Glucse In 37.5 Gm Tube PO PRN PRN Hypoglycemia Protocol Guaifenesin/Dextromethorphan 10 ml 03/19/25 23:38 Guaifenesin/Dextromethorphan 10 Ml Udc PO Q4H PRN Cough Dextrose 1,000 mls @ 100 mls/hr 03/19/25 12:38 Dextrose 5% 1,000 Ml IVPB PRN PRN Hypoglycemia Protocol Meropenem 1 gm in 100 mls @ 200 mls/hr 03/20/25 21:00 03/21/25 09:50 IVPB Infused Q12HR DOC Infusion Loperamide HCl 2 mg 03/19/25 22:22 03/20/25 05:27 Loperamide Hcl 2 Mg Capsule PO 2 mg Q12H PRN Administration Diarrhea Methotrexate 7.5 mg 03/21/25 09:00 03/21/25 09:07 Methotrexate 2.5 Mg Tab (*Chemo) PO 7.5 mg WEEKLY DOC Administration Miscellaneous Information 1 each 03/20/25 00:01 Order Clarification -Docusate/Senna Q Hs Is Duplicate Therapy With Senna Bid (Home Med). H XX 04/19/25 00:00 CLARIFY DOC Multivitamins Therapeutic 1 tablet 03/21/25 09:00 03/21/25 09:08 Multivitamins Therapeutic Tab (*Bkc) PO 1 tablet DAILY DOC Administration Pantoprazole Sodium 40 mg 03/20/25 11:15 03/21/25 09:08 Pantoprazole 40 Mg Tablet PO 40 mg QAM DOC Administration Prednisone 40 mg 03/21/25 08:00 03/21/25 09:08 Prednisone 20 Mg Tablet PO 40 mg DAILY@0800 DOC Administration Pregabalin 150 mg 03/20/25 09:00 03/21/25 09:08 Pregabalin (*Crx) 75 Mg Capsule PO 150 mg BID DOC Administration Senna 8.6 mg 03/20/25 17:00 03/21/25 09:08 Sennosides 8.6 Mg Tablet PO 8.6 mg BID DOC Administration Senna/Docusate Sodium 1 tab 03/19/25 21:00 03/20/25 21:24 Senna/Docusate Sodium Tablet PO Not Given HS DOC Sodium Chloride 10 ml 03/20/25 14:00 03/21/25 09:26 Saline Lock Flush IV PUSH 10 ml Q8HR DOC Administration Sodium Chloride 10 ml 03/20/25 13:40 Saline Lock Flush IV PUSH PRN PRN Flush Sodium Chloride 20 ml 03/20/25 13:40 Saline Lock Flush IV PUSH PRN PRN after blood draws Trazodone HCl 50 mg 03/20/25 21:00 03/20/25 21:23 Trazodone Hcl 50 Mg Tablet PO 50 mg HS DOC Administration Umeclidinium/Vilanterol 1 puff 03/20/25 08:00 03/21/25 08:45 Umeclidinium/Vilanterol 62.5-25 Mcg Ellipta INHALATION 1 puff DAILYRT DOC Administration Radiology Results: ITS Impressions Chest X-Ray 03/19/25 11:38 IMPRESSION: Bilateral pneumonia. Underlying pulmonary edema is not excluded. Labs Labs: Laboratory Results - last 24 hr 03/21/25 05:12 WBC 19.9 H RBC 3.11 L Hgb 9.8 L Hct 31.1 L MCV 100.0 MCH 31.5 MCHC 31.5 L RDW 12.4 Plt Count 258 MPV 11.5 H Sodium 139 Potassium 4.4 Chloride 100 Carbon Dioxide 31 H Anion Gap 8 BUN 20 H Creatinine 0.79 Estim Creat Clear Calc 46 Estimated GFR > 60 Glucose 122 H Calcium 8.8 Magnesium 1.8 Total Bilirubin 0.2 AST 26 ALT 15 Alkaline Phosphatase 39 Total Protein 6.6 Albumin 3.5 Quality VTE Prophylaxis VTE prophylaxis: mechanical ordered and pharmacologic ordered -Patient's previous records reviewed on admission -ER notes reviewed in detail on admission -discussed all findings and current treatment plan with patient/Family/POA -Consultations reviewed for recommendations -Patient's disposition for safe discharge discussed with manager of case management Dictation performed by [email or web address] direct speech recognition software, therefore managing director variants and typographical errors may occur. Hospitalist MIPS Advance Care Plan I have confirmed that the patient's Advanced Care Plan is present, code status is documented, or surrogate decision maker is listed in patient medical record.: Yes Medication Reconciliation I have utilized all available resources to obtain, update and review the patients current medications (includes all prescriptions, OTC, herbals, cannabis, and nutritional supplements).: Yes The patient is not eligible for med reconciliation; the patient is in a emergent medical situation where delaying treatment would jeopardize the patients health.: No
[2025-03-21] MEDS: diphenhydrAMINE HCl CAP 25 MG CAPSULE PO (15:55)
[2025-03-21] MEDS: ATORVASTATIN 40 MG TABLET PO (16:11)
[2025-03-21] MEDS: SENNA/DOCUSATE SODIUM TABLET 1 TAB PO (21:32)
[2025-03-22] VITALS (16 sets, daily range): BP systolic 112–154; BP diastolic 62–66; PULSE 55–81; RESP 16–24; TEMP 36.2–36.6; O2SAT 94–97
--- NOTE | 2025-03-22 04:52 | PCRCNOTE ---
Patient asked this RT to not wake her for her 0200 updraft treatment. Treatment will resume @ 0800.
[2025-03-22] MEDS: ACETAMINOPHEN 325 MG TABLET 650 MG PO (05:45)
[2025-03-22 06:25] LABS: Hematocrit 33.9 % (37.0-47.0); Hemoglobin 10.6 g/dL (12.0-15.0); Mean Corpuscular HGB Conc 31.3 g/dl (32-36); Mean Corpuscular Hemoglobin 31.4 pg (26-34); Mean Corpuscular Volume 100.3 fl (80-100); Platelet Count Result 259 k/mm3 (150-375); Red Blood Count 3.38 M/mm3 (4.2-5.4); White Blood Count 15.1 K/mm3 (4.5-10.0)
[2025-03-22 06:45] LABS: Alanine Aminotransferase 18 U/L (6-35); Albumin Level 3.8 g/dL (3.5-5.1); Alkaline Phosphatase 37 U/L (38-126); Anion Gap 5 mmol/L (4-12); Aspartate Amino Transferase 30 U/L (14-36); Bilirubin,Total 0.2 mg/dL (0.2-1.3); Blood Urea Nitrogen 30 mg/dL (7-17); Calcium 8.7 mg/dL (8.4-10.2); Carbon Dioxide 38 mmol/L (22-30); Chloride 96 mmol/L (98-107); Estimated CRCL calculation 42 ml/min; Estimated Glomerular Filt Rate > 60; Glucose 108 mg/dL (65-110); Magnesium 1.8 mg/dL (1.6-2.3); Potassium 3.9 mmol/L (3.4-5.0); Sodium 139 mmol/L (137-145); Total Protein 7.0 g/dL (6.3-8.2)
[2025-03-22] MEDS: SALINE LOCK FLUSH 10 ML IV PUSH ×3 (07:00→20:41)
[2025-03-22] MEDS: LIPASE/AMYLASE/PROTEASE 12,000 UNITS CAP 4 CAP PO ×3 (08:23→17:05)
[2025-03-22] MEDS: AZITHROMYCIN 250 MG TABLET 500 MG PO (08:23)
[2025-03-22] MEDS: MULTIVITAMINS THERAPEUTIC TAB (*BKC) 1 TABLET PO (08:23)
[2025-03-22] MEDS: SENNOSIDES 8.6 MG TABLET PO (08:23)
[2025-03-22] MEDS: APIXABAN 2.5 MG TABLET PO ×2 (08:24→17:06)
[2025-03-22] MEDS: MEROPENEM 1 GM/NS 100 ML 1 GM/100 ML BAG IVPB ×2 (08:24→20:38)
[2025-03-22] MEDS: FUROSEMIDE 40 MG TABLET PO (08:24)
[2025-03-22] MEDS: HYDROcodone/acetaminophen (*CRX) 10-325 MG TABLET 1 TAB PO ×4 (08:24→20:39)
[2025-03-22] MEDS: PANTOPRAZOLE 40 MG TABLET PO (08:24)
[2025-03-22] MEDS: ASCORBIC ACID 500 MG TABLET PO ×2 (08:24→20:40)
[2025-03-22] MEDS: PREGABALIN (*CRX) 75 MG CAPSULE 150 MG PO ×2 (08:24→17:05)
[2025-03-22] MEDS: ARTIFICIAL TEARS OPHTH SOLN 15 ML BOTTLE 1 DROP EACH EYE ×2 (08:25→17:06)
--- NOTE | 2025-03-22 09:01 | P.PNIM_ITS ---
Progress Note: A&P Assessment and Plan (1) Acute on chronic respiratory failure with hypoxia and hypercapnia: Code(s): J96.21 - Acute and chronic respiratory failure with hypoxia; J96.22 - Acute and chronic respiratory failure with hypercapnia Status: Acute Assessment and Plan: Patient presented with worsening shortness a breath chronically [facility] wears 2-3 L of supplemental oxygen due to chronic COPD, ABG did show acute on chronic hypoxia with hypercapnia. CXR showing bilateral pneumonia likely secondary pneumonia and COPD exacerbation * DuoNebs q.6 * prednisone 40 mg daily * azithromycin and meropenem to cover UTI as well * Guaifenesin * wean O2 to baseline * incentive spirometer while awake * blood cultures NGTD (2) Pneumonia: Qualifiers: Laterality: bilateral Lung location: lower lobe of lung Pneumonia type: due to unspecified organism Qualified Code(s): J18.9 - Pneumonia, unspecified organism Code(s): J18.9 - Pneumonia, unspecified organism Status: Acute Assessment and Plan: SEE ABOVE (3) COPD (chronic obstructive pulmonary disease): Qualifiers: COPD type: unspecified COPD Qualified Code(s): J44.9 - Chronic obstructive pulmonary disease, unspecified Code(s): J44.9 - Chronic obstructive pulmonary disease, unspecified Status: Chronic Assessment and Plan: patient with chronic COPD versus 2-3 L of home oxygen at [facility] * SEE ABOVE (4) Diastolic congestive heart failure: Code(s): I50.30 - Unspecified diastolic (congestive) heart failure Status: Acute Assessment and Plan: CXR showed possible underlying pulmonary edema as well. Patient's last echocardiogram on 08/2023 showed diastolic dysfunction with LVEF of 60-65% * resume patient's oral furosemide daily * monitor for fluid overload * daily weights (5) Hypomagnesemia: Code(s): E83.42 - Hypomagnesemia Status: Acute Assessment and Plan: magnesium was 1.3 POA given 2 g magnesium in the ED * Daily magnesium * replenish as needed keep greater than 2.0 (6) HTN (hypertension): Qualifiers: Hypertension type: unspecified Qualified Code(s): I10 - Essential (primary) hypertension Code(s): I10 - Essential (primary) hypertension Status: Chronic Assessment and Plan: * resume losartan and carvedilol * monitor per unit protocol (7) Anemia of chronic disease: Code(s): D63.8 - Anemia in other chronic diseases classified elsewhere Status: Acute Assessment and Plan: hemoglobin reviewed and stable no signs of active bleed * continued Margaretquleonardo * continued her ferrous sulfate * will trend H and H transfuse PRBCs <7.0 (8) Diarrhea: Code(s): R19.7 - Diarrhea, unspecified Status: Acute Assessment and Plan: * Continue Imodium (9) Osteoarthritis of bilateral glenohumeral joints: Code(s): M19.011 - Primary osteoarthritis, right shoulder; M19.012 - Primary osteoarthritis, left shoulder Status: Acute Assessment and Plan: * Continue methotrexate (10) Exocrine pancreatic insufficiency: Code(s): K86.81 - Exocrine pancreatic insufficiency Status: Chronic Assessment and Plan: * Continue Creon (11) UTI (urinary tract infection): Code(s): N39.0 - Urinary tract infection, site not specified Status: Acute Assessment and Plan: on patient's medication list it showed meropenem for ESBL cystitis IV patient also presented with a midline attempting to find out have any doses patient had received. UA suspicious for urinary tract infection * switched ceftriaxone to meropenem for ESBL coverage since unable to determine length of patient's therapy and was only receiving meropenem daily will continue to treat with IV meropenem b.i.d. while inpatient she can then transitioned to IV ertapenem daily upon discharge for a total 7 days of therapy Plan Code status: Full code per patient DVT prophylaxis: SCD/Eliquis Stress ulcer prophylaxis: Protonix 40 daily PT/OT notes: PT/OT rehab back at [facility] Disposition: Patient continues admission to the medical unit for treatment pneumonia and ESBL UTI patient is improving overall with treatments still with cough shortness of breaths WBC improved 15 today will continue with current treatment plan hopefully patient can discharge back to skilled facility tomorrow and continue rehab she will need to also complete her IV antibiotics for UTI patient already has midline in place. Time Spent With Patient Time with patient: 15 - 25 minutes Subjective Date/time seen: 03/22/25 09:01 Interval history: Patient is an 80-year-old female admitted for acute on chronic respiratory failure with hypoxia and hypercapnia secondary to bilateral pneumonia. 03/22/2025: Patient feeling better today still with mild cough, SOB, and urinary frequency otherwise no other complaints. WBC trending down. Review of Systems Review of Systems: 12 systems were reviewed and are negativ e except for as per HPI. All systems reviewed & are unremarkable except as noted in HPI and below Exam Narrative: General: NAD HEENT: normocephalic, atraumatic. Respiratory: Inspiratory and expiratory wheezes, positive cough with sputum Cardiovascular: RRR Abdomen: Soft, round, Extremities: No cyanosis, clubbing, or edema present. Neuro: Alert and orientated x 1to 2 . Skin: Warm, dry, and intact, without rash, erythema, or lesion. Psych: pleasant, cooperative, Objective Data Vital Signs Vital Signs: Vital Signs - 24 hr 03/21/25 09:07 03/21/25 12:00 03/21/25 14:00 Temperature 98.2 F Pulse Rate 67 76 79 Respiratory Rate 20 Blood Pressure 132/68 Pulse Oximetry 96 Oxygen Delivery Oxygen Flow Rate 03/21/25 14:55 03/21/25 15:03 03/21/25 16:00 Temperature Pulse Rate 80 85 71 Respiratory Rate 20 20 Blood Pressure Pulse Oximetry Oxygen Delivery Oxygen Flow Rate 03/21/25 20:23 03/21/25 20:27 03/21/25 20:34 Temperature Pulse Rate 76 76 79 Respiratory Rate 20 20 Blood Pressure Pulse Oximetry 95 Oxygen Delivery Nasal Cannula Oxygen Flow Rate 2 03/21/25 20:37 03/21/25 21:30 03/21/25 21:30 Temperature 97.6 F Pulse Rate 79 77 Respiratory Rate 16 Blood Pressure 115/52 L Pulse Oximetry 97 95 Oxygen Delivery Nasal Cannula Oxygen Flow Rate 2 03/21/25 21:32 03/22/25 00:00 03/22/25 04:00 Temperature Pulse Rate 74 60 55 L Respiratory Rate Blood Pressure Pulse Oximetry Oxygen Delivery Oxygen Flow Rate 03/22/25 05:37 03/22/25 08:23 Temperature 97.9 F Pulse Rate 70 64 Respiratory Rate 16 Blood Pressure 154/66 H Pulse Oximetry 97 Oxygen Delivery Oxygen Flow Rate Intake/Output Intake/Output: Intake & Output 03/19/25 03/20/25 03/21/25 03/22/25 23:59 23:59 23:59 23:59 Intake Total 320 1380 1870 250 Balance 320 1380 1870 250 Meds/Results Medications: Active Medications Generic Name Dose Route Start Last Admin Trade Name Freq PRN Reason Stop Dose Admin Acetaminophen 650 mg 03/19/25 12:38 03/22/25 05:45 Acetaminophen 325 Mg Tablet PO 650 mg Q4H PRN Administration Mild Pain (1-3) or Fever Hydrocodone Bitart/Acetaminophen 1 tab 03/20/25 09:00 03/22/25 08:24 Hydrocodone/Acetaminophen (*Crx) 10-325 Mg Tablet PO 1 tab QID DOC Administration Albuterol/Ipratropium 3 ml 03/19/25 14:00 03/22/25 04:52 Ipratropium 0.5 Mg/Albuterol Sulfate 2.5 Mg Ampul.Neb 3 Ml INHALATION Not Given Q6HRT DOC Albuterol/Ipratropium 3 ml 03/20/25 14:00 Ipratropium 0.5 Mg/Albuterol Sulfate 2.5 Mg Ampul.Neb 3 Ml INHALATION Q6HRT PRN Shortness Of Breath Lipase/Protease/Amylase 4 cap 03/20/25 09:00 03/22/25 08:23 Lipase/Amylase/Protease 12,000 Units Cap PO 4 cap TID DOC Administration Apixaban 2.5 mg 03/20/25 09:00 03/22/25 08:24 Apixaban 2.5 Mg Tablet PO 2.5 mg BID DOC Administration Artificial Tears 1 drop 03/20/25 17:00 03/22/25 08:25 Artificial Tears Ophth Soln 15 Ml Bottle EACH EYE 1 drop BID DOC Administration Ascorbic Acid 500 mg 03/20/25 11:05 03/22/25 08:24 Ascorbic Acid 500 Mg Tablet PO 500 mg Q12HRT DOC Administration Atorvastatin Calcium 40 mg 03/20/25 18:00 03/21/25 16:11 Atorvastatin 40 Mg Tablet PO 40 mg QPM DOC Administration Azithromycin 500 mg 03/21/25 09:00 03/22/25 08:23 Azithromycin 250 Mg Tablet PO 03/23/25 09:01 500 mg DAILY DOC Administration Bisacodyl 10 mg 03/20/25 10:56 Bisacodyl 10 Mg Suppository RECTAL DAILY PRN constipation Bupropion HCl 75 mg 03/20/25 09:00 03/22/25 08:23 Bupropion Hcl 75 Mg Tablet PO 75 mg DAILY DOC Administration Carvedilol 3.125 mg 03/20/25 09:00 03/22/25 08:23 Carvedilol 3.125 Mg Tablet PO 3.125 mg Q12HR DOC Administration Dextrose 12.5 gm 03/19/25 12:38 Dextrose 50% 25 Gm/50 Ml Syringe IV PUSH PRN PRN Hypoglycemia Protocol Diphenhydramine HCl 25 mg 03/20/25 21:21 03/21/25 15:55 Diphenhydramine Hcl Cap 25 Mg Capsule PO 25 mg Q6H PRN Administration Itching Furosemide 40 mg 03/20/25 09:00 03/22/25 08:24 Furosemide 40 Mg Tablet PO 40 mg QAM DOC Administration Glucagon 1 mg 03/19/25 12:38 Glucagon For Inj 1 Mg Vial IM PRN PRN Hypoglycemia Protocol Glucose 15 gm 03/19/25 12:38 Glucose Oral Gel 15 Gm Of Glucse In 37.5 Gm Tube PO PRN PRN Hypoglycemia Protocol Guaifenesin/Dextromethorphan 10 ml 03/19/25 23:38 Guaifenesin/Dextromethorphan 10 Ml Udc PO Q4H PRN Cough Dextrose 1,000 mls @ 100 mls/hr 03/19/25 12:38 Dextrose 5% 1,000 Ml IVPB PRN PRN Hypoglycemia Protocol Meropenem 1 gm in 100 mls @ 200 mls/hr 03/20/25 21:00 03/22/25 08:24 IVPB 200 mls/hr Q12HR DOC Administration Loperamide HCl 2 mg 03/19/25 22:22 03/20/25 05:27 Loperamide Hcl 2 Mg Capsule PO 2 mg Q12H PRN Administration Diarrhea Methotrexate 7.5 mg 03/21/25 09:00 03/21/25 09:07 Methotrexate 2.5 Mg Tab (*Chemo) PO 7.5 mg WEEKLY DOC Administration Miscellaneous Information 1 each 03/20/25 00:01 Order Clarification -Docusate/Senna Q Hs Is Duplicate Therapy With Senna Bid (Home Med). H XX 04/19/25 00:00 [facility] Multivitamins Therapeutic 1 tablet 03/21/25 09:00 03/22/25 08:23 Multivitamins Therapeutic Tab (*Bkc) PO 1 tablet DAILY DOC Administration Pantoprazole Sodium 40 mg 03/20/25 11:15 03/22/25 08:24 Pantoprazole 40 Mg Tablet PO 40 mg QAM DOC Administration Prednisone 40 mg 03/21/25 08:00 03/22/25 08:23 Prednisone 20 Mg Tablet PO 40 mg DAILY@0800 DOC Administration Pregabalin 150 mg 03/20/25 09:00 03/22/25 08:24 Pregabalin (*Crx) 75 Mg Capsule PO 150 mg BID DOC Administration Senna 8.6 mg 03/20/25 17:00 03/22/25 08:23 Sennosides 8.6 Mg Tablet PO 8.6 mg BID DOC Administration Senna/Docusate Sodium 1 tab 03/19/25 21:00 03/21/25 21:32 Senna/Docusate Sodium Tablet PO 1 tab HS DOC Administration Sodium Chloride 10 ml 03/20/25 14:00 03/22/25 07:00 Saline Lock Flush IV PUSH 10 ml Q8HR DOC Administration Sodium Chloride 10 ml 03/20/25 13:40 Saline Lock Flush IV PUSH PRN PRN Flush Sodium Chloride 20 ml 03/20/25 13:40 Saline Lock Flush IV PUSH PRN PRN after blood draws Trazodone HCl 50 mg 03/20/25 21:00 03/21/25 21:33 Trazodone Hcl 50 Mg Tablet PO 50 mg HS DOC Administration Umeclidinium/Vilanterol 1 puff 03/20/25 08:00 03/21/25 08:45 Umeclidinium/Vilanterol 62.5-25 Mcg Ellipta INHALATION 1 puff DAILYRT DOC Administration Radiology Results: ITS Impressions Chest X-Ray 03/19/25 11:38 IMPRESSION: Bilateral pneumonia. Underlying pulmonary edema is not excluded. Labs Labs: Laboratory Results - last 24 hr 03/22/25 06:01 WBC 15.1 H RBC 3.38 L Hgb 10.6 L Hct 33.9 L MCV 100.3 H MCH 31.4 MCHC 31.3 L RDW 12.3 Plt Count 259 MPV 11.7 H Sodium 139 Potassium 3.9 Chloride 96 L Carbon Dioxide 38 H Anion Gap 5 BUN 30 H D Creatinine 0.88 Estim Creat Clear Calc 42 Estimated GFR > 60 Glucose 108 Calcium 8.7 Magnesium 1.8 Total Bilirubin 0.2 AST 30 ALT 18 Alkaline Phosphatase 37 L Total Protein 7.0 Albumin 3.8 Quality VTE Prophylaxis VTE prophylaxis: mechanical ordered and pharmacologic ordered -Patient's previous records reviewed on admission -ER notes reviewed in detail on admission -discussed all findings and current treatment plan with patient/Family/POA -Consultations reviewed for recommendations -Patient's disposition for safe discharge discussed with welfare case worker Dictation performed by [email or web address] direct speech recognition software, therefore merchandise worker variants and typographical errors may occur. Hospitalist MIPS Advance Care Plan I have confirmed that the patient's Advanced Care Plan is present, code status is documented, or surrogate decision maker is listed in patient medical record.: Yes Medication Reconciliation I have utilized all available resources to obtain, update and review the patients current medications (includes all prescriptions, OTC, herbals, cannabis, and nutritional supplements).: Yes The patient is not eligible for med reconciliation; the patient is in a emergent medical situation where delaying treatment would jeopardize the patients health.: No
[2025-03-22] MEDS: UMECLIDINIUM/VILANTEROL 62.5-25 MCG ELLIPTA 1 PUFF INHALATION (09:25)
[2025-03-22] MEDS: IPRATROPIUM 0.5 MG/ALBUTEROL SULFATE 2.5 MG AMPUL.NEB 3 ML INHALATION ×3 (09:25→19:59)
[2025-03-22] MEDS: diphenhydrAMINE HCl CAP 25 MG CAPSULE PO (13:15)
[2025-03-22] MEDS: ATORVASTATIN 40 MG TABLET PO (17:09)
[2025-03-22] MEDS: SENNA/DOCUSATE SODIUM TABLET 1 TAB PO (20:40)
[2025-03-23] VITALS (21 sets, daily range): BP systolic 91–155; BP diastolic 55–74; PULSE 61–91; RESP 16–20; TEMP 36.3–36.6; O2SAT 93–95
[2025-03-23] MEDS: IPRATROPIUM 0.5 MG/ALBUTEROL SULFATE 2.5 MG AMPUL.NEB 3 ML INHALATION ×4 (01:57→19:56)
[2025-03-23 05:54] LABS: Hematocrit 36.3 % (37.0-47.0); Hemoglobin 11.3 g/dL (12.0-15.0); Mean Corpuscular HGB Conc 31.1 g/dl (32-36); Mean Corpuscular Hemoglobin 31.4 pg (26-34); Mean Corpuscular Volume 100.8 fl (80-100); Platelet Count Result 273 k/mm3 (150-375); Red Blood Count 3.60 M/mm3 (4.2-5.4); White Blood Count 13.7 K/mm3 (4.5-10.0)
[2025-03-23 06:15] LABS: Alanine Aminotransferase 19 U/L (6-35); Albumin Level 4.1 g/dL (3.5-5.1); Alkaline Phosphatase 38 U/L (38-126); Anion Gap 8 mmol/L (4-12); Aspartate Amino Transferase 28 U/L (14-36); Bilirubin,Total 0.3 mg/dL (0.2-1.3); Blood Urea Nitrogen 28 mg/dL (7-17); Calcium 9.2 mg/dL (8.4-10.2); Carbon Dioxide 38 mmol/L (22-30); Chloride 93 mmol/L (98-107); Estimated CRCL calculation 48 ml/min; Estimated Glomerular Filt Rate > 60; Glucose 109 mg/dL (65-110); Magnesium 1.9 mg/dL (1.6-2.3); Potassium 4.0 mmol/L (3.4-5.0); Sodium 139 mmol/L (137-145); Total Protein 7.4 g/dL (6.3-8.2)
[2025-03-23] MEDS: SALINE LOCK FLUSH 10 ML IV PUSH ×3 (06:51→22:36)
[2025-03-23] MEDS: UMECLIDINIUM/VILANTEROL 62.5-25 MCG ELLIPTA 1 PUFF INHALATION (08:31)
[2025-03-23] MEDS: LIPASE/AMYLASE/PROTEASE 12,000 UNITS CAP 4 CAP PO ×3 (08:48→17:32)
[2025-03-23] MEDS: AZITHROMYCIN 250 MG TABLET 500 MG PO (08:48)
[2025-03-23] MEDS: APIXABAN 2.5 MG TABLET PO ×2 (08:49→17:32)
[2025-03-23] MEDS: FUROSEMIDE 40 MG TABLET PO (08:49)
[2025-03-23] MEDS: SENNOSIDES 8.6 MG TABLET PO (08:49)
[2025-03-23] MEDS: HYDROcodone/acetaminophen (*CRX) 10-325 MG TABLET 1 TAB PO ×4 (08:49→22:29)
[2025-03-23] MEDS: ASCORBIC ACID 500 MG TABLET PO ×2 (08:50→22:30)
[2025-03-23] MEDS: MULTIVITAMINS THERAPEUTIC TAB (*BKC) 1 TABLET PO (08:50)
[2025-03-23] MEDS: PANTOPRAZOLE 40 MG TABLET PO (08:50)
[2025-03-23] MEDS: PREGABALIN (*CRX) 75 MG CAPSULE 150 MG PO ×2 (08:50→17:32)
[2025-03-23] MEDS: ARTIFICIAL TEARS OPHTH SOLN 15 ML BOTTLE 1 DROP EACH EYE ×2 (08:51→17:33)
[2025-03-23] MEDS: MEROPENEM 1 GM/NS 100 ML 1 GM/100 ML BAG IVPB ×2 (08:52→22:30)
[2025-03-23 14:24] LABS: Toxigenic C. Diff NEGATIVE (NEGATIVE)
--- NOTE | 2025-03-23 14:47 | P.PNIM_ITS ---
Progress Note: A&P Assessment and Plan (1) Acute on chronic respiratory failure with hypoxia and hypercapnia: Code(s): J96.21 - Acute and chronic respiratory failure with hypoxia; J96.22 - Acute and chronic respiratory failure with hypercapnia Status: Acute Assessment and Plan: Patient presented with worsening shortness a breath chronically correction wears 2-3 L of supplemental oxygen due to chronic COPD, ABG did show acute on chronic hypoxia with hypercapnia. CXR showing bilateral pneumonia likely secondary pneumonia and COPD exacerbation * DuoNebs q.6 * prednisone 40 mg daily * azithromycin and meropenem to cover UTI as well * Guaifenesin * wean O2 to baseline * incentive spirometer while awake * blood cultures NGTD (2) Pneumonia: Qualifiers: Laterality: bilateral Lung location: lower lobe of lung Pneumonia type: due to unspecified organism Qualified Code(s): J18.9 - Pneumonia, unspecified organism Code(s): J18.9 - Pneumonia, unspecified organism Status: Acute Assessment and Plan: SEE ABOVE (3) COPD (chronic obstructive pulmonary disease): Qualifiers: COPD type: unspecified COPD Qualified Code(s): J44.9 - Chronic obstructive pulmonary disease, unspecified Code(s): J44.9 - Chronic obstructive pulmonary disease, unspecified Status: Chronic Assessment and Plan: patient with chronic COPD versus 2-3 L of home oxygen at correction * SEE ABOVE (4) Diastolic congestive heart failure: Code(s): I50.30 - Unspecified diastolic (congestive) heart failure Status: Acute Assessment and Plan: CXR showed possible underlying pulmonary edema as well. Patient's last echocardiogram on 08/2023 showed diastolic dysfunction with LVEF of 60-65% * resume patient's oral furosemide daily * monitor for fluid overload * daily weights (5) Hypomagnesemia: Code(s): E83.42 - Hypomagnesemia Status: Acute Assessment and Plan: magnesium was 1.3 POA given 2 g magnesium in the ED * Daily magnesium * replenish as needed keep greater than 2.0 (6) HTN (hypertension): Qualifiers: Hypertension type: unspecified Qualified Code(s): I10 - Essential (primary) hypertension Code(s): I10 - Essential (primary) hypertension Status: Chronic Assessment and Plan: * resume losartan and carvedilol * monitor per unit protocol (7) Anemia of chronic disease: Code(s): D63.8 - Anemia in other chronic diseases classified elsewhere Status: Acute Assessment and Plan: hemoglobin reviewed and stable no signs of active bleed * continued Eliquleonardo * continued her ferrous sulfate * will trend H and H transfuse PRBCs <7.0 (8) Diarrhea: Code(s): R19.7 - Diarrhea, unspecified Status: Acute Assessment and Plan: * c-diff negative * continue Imodium * gentle IV fluids for mild dehydration (9) Osteoarthritis of bilateral glenohumeral joints: Code(s): M19.011 - Primary osteoarthritis, right shoulder; M19.012 - Primary osteoarthritis, left shoulder Status: Acute Assessment and Plan: * Continue methotrexate (10) Exocrine pancreatic insufficiency: Code(s): K86.81 - Exocrine pancreatic insufficiency Status: Chronic Assessment and Plan: * Continue Creon (11) UTI (urinary tract infection): Code(s): N39.0 - Urinary tract infection, site not specified Status: Acute Assessment and Plan: on patient's medication list it showed meropenem for ESBL cystitis IV patient also presented with a midline attempting to find out have any doses patient had received. UA suspicious for urinary tract infection * switched ceftriaxone to meropenem for ESBL coverage since unable to determine length of patient's therapy and was only receiving meropenem daily will continue to treat with IV meropenem b.i.d. while inpatient she can then transitioned to IV ertapenem daily upon discharge for a total 7 days of therapy Plan Code status: Full code per patient DVT prophylaxis: SCD/Eliquis Stress ulcer prophylaxis: Protonix 40 daily PT/OT notes: PT/OT rehab back at [facility] Disposition: Patient continues admission to the medical unit for treatment pneumonia and ESBL UTI patient is improving overall with treatments still with cough shortness of breaths WBC improved 15 today will continue with current treatment plan will keep another night and hydrate add Imodium and check labs in the am she will need to also complete her IV antibiotics for UTI patient already has midline in place. Time Spent With Patient Time with patient: 15 - 25 minutes Subjective Date/time seen: 03/23/25 14:47 Interval history: Patient is an 80-year-old female admitted for acute on chronic respiratory failure with hypoxia and hypercapnia secondary to bilateral pneumonia. 03/23/2025: Patient still with productive cough and mild SOB had complaints of 5 episodes of diarrhea. Patient denied CP but overall not feeling well this am due to her diarrhea. Review of Systems Review of Systems: 12 systems were reviewed and are negativ e except for as per HPI. All systems reviewed & are unremarkable except as noted in HPI and below Exam Narrative: General: NAD HEENT: normocephalic, atraumatic. Respiratory: Inspiratory and expiratory wheezes, positive cough with sputum Cardiovascular: RRR Abdomen: Soft, round, Extremities: No cyanosis, clubbing, or edema present. Neuro: Alert and orientated x 1to 2 . Skin: Warm, dry, and intact, without rash, erythema, or lesion. Psych: pleasant, cooperative, Objective Data Vital Signs Vital Signs: Vital Signs - 24 hr 03/22/25 16:00 03/22/25 19:59 03/22/25 20:11 Temperature Pulse Rate 69 72 72 Respiratory Rate 20 20 Blood Pressure Pulse Oximetry Oxygen Delivery Oxygen Flow Rate Fraction of Inspired Oxygen 03/22/25 20:11 03/22/25 20:25 03/22/25 20:40 Temperature 97.6 F Pulse Rate 72 76 Respiratory Rate 18 Blood Pressure 112/66 Pulse Oximetry 95 94 Oxygen Delivery Nasal Cannula Oxygen Flow Rate 2 Fraction of Inspired Oxygen 03/22/25 20:40 03/22/25 20:40 03/23/25 00:00 Temperature Pulse Rate 78 61 Respiratory Rate Blood Pressure Pulse Oximetry 96 Oxygen Delivery Nasal Cannula Oxygen Flow Rate 2 Fraction of Inspired Oxygen 03/23/25 01:58 03/23/25 02:09 03/23/25 04:08 Temperature Pulse Rate 72 72 71 Respiratory Rate 20 20 Blood Pressure Pulse Oximetry Oxygen Delivery Oxygen Flow Rate Fraction of Inspired Oxygen 03/23/25 04:14 03/23/25 08:30 03/23/25 08:30 Temperature 98 F Pulse Rate 73 73 Respiratory Rate 18 20 Blood Pressure 155/65 H Pulse Oximetry 94 95 Oxygen Delivery Nasal Cannula Oxygen Flow Rate 2 Fraction of Inspired Oxygen 28 03/23/25 08:40 03/23/25 08:49 03/23/25 08:50 Temperature Pulse Rate 75 91 70 Respiratory Rate 20 Blood Pressure Pulse Oximetry 95 Oxygen Delivery Nasal Cannula Oxygen Flow Rate 2 Fraction of Inspired Oxygen 03/23/25 13:40 Temperature Pulse Rate 70 Respiratory Rate 20 Blood Pressure Pulse Oximetry Oxygen Delivery Oxygen Flow Rate Fraction of Inspired Oxygen Intake/Output Intake/Output: Intake & Output 03/20/25 03/21/25 03/22/25 03/23/25 23:59 23:59 23:59 23:59 Intake Total 1380 1870 1460 630 Output Total 700 800 Balance 1380 1870 760 -170 Meds/Results Medications: Active Medications Generic Name Dose Route Start Last Admin Trade Name Freq PRN Reason Stop Dose Admin Acetaminophen 650 mg 03/19/25 12:38 03/22/25 05:45 Acetaminophen 325 Mg Tablet PO 650 mg Q4H PRN Administration Mild Pain (1-3) or Fever Hydrocodone Bitart/Acetaminophen 1 tab 03/20/25 09:00 03/23/25 12:35 Hydrocodone/Acetaminophen (*Crx) 10-325 Mg Tablet PO 1 tab QID DOC Administration Albuterol/Ipratropium 3 ml 03/19/25 14:00 03/23/25 13:42 Ipratropium 0.5 Mg/Albuterol Sulfate 2.5 Mg Ampul.Neb 3 Ml INHALATION 3 ml Q6HRT DOC Administration Albuterol/Ipratropium 3 ml 03/20/25 14:00 Ipratropium 0.5 Mg/Albuterol Sulfate 2.5 Mg Ampul.Neb 3 Ml INHALATION Q6HRT PRN Shortness Of Breath Lipase/Protease/Amylase 4 cap 03/20/25 09:00 03/23/25 12:35 Lipase/Amylase/Protease 12,000 Units Cap PO 4 cap TID DOC Administration Apixaban 2.5 mg 03/20/25 09:00 03/23/25 08:49 Apixaban 2.5 Mg Tablet PO 2.5 mg BID DOC Administration Artificial Tears 1 drop 03/20/25 17:00 03/23/25 08:51 Artificial Tears Ophth Soln 15 Ml Bottle EACH EYE 1 drop BID DOC Administration Ascorbic Acid 500 mg 03/20/25 11:05 03/23/25 08:50 Ascorbic Acid 500 Mg Tablet PO 500 mg Q12HRT DOC Administration Atorvastatin Calcium 40 mg 03/20/25 18:00 03/22/25 17:09 Atorvastatin 40 Mg Tablet PO 40 mg QPM DOC Administration Bisacodyl 10 mg 03/20/25 10:56 Bisacodyl 10 Mg Suppository RECTAL DAILY PRN constipation Bupropion HCl 75 mg 03/20/25 09:00 03/23/25 08:49 Bupropion Hcl 75 Mg Tablet PO 75 mg DAILY DOC Administration Carvedilol 3.125 mg 03/20/25 09:00 03/23/25 08:49 Carvedilol 3.125 Mg Tablet PO 3.125 mg Q12HR DOC Administration Dextrose 12.5 gm 03/19/25 12:38 Dextrose 50% 25 Gm/50 Ml Syringe IV PUSH PRN PRN Hypoglycemia Protocol Diphenhydramine HCl 25 mg 03/20/25 21:21 03/22/25 13:15 Diphenhydramine Hcl Cap 25 Mg Capsule PO 25 mg Q6H PRN Administration Itching Furosemide 40 mg 03/20/25 09:00 03/23/25 08:49 Furosemide 40 Mg Tablet PO 40 mg QAM DOC Administration Glucagon 1 mg 03/19/25 12:38 Glucagon For Inj 1 Mg Vial IM PRN PRN Hypoglycemia Protocol Glucose 15 gm 03/19/25 12:38 Glucose Oral Gel 15 Gm Of Glucse In 37.5 Gm Tube PO PRN PRN Hypoglycemia Protocol Guaifenesin/Dextromethorphan 10 ml 03/19/25 23:38 Guaifenesin/Dextromethorphan 10 Ml Udc PO Q4H PRN Cough Dextrose 1,000 mls @ 100 mls/hr 03/19/25 12:38 Dextrose 5% 1,000 Ml IVPB PRN PRN Hypoglycemia Protocol Meropenem 1 gm in 100 mls @ 200 mls/hr 03/20/25 21:00 03/23/25 08:52 IVPB 200 mls/hr Q12HR DOC Administration Loperamide HCl 2 mg 03/19/25 22:22 03/20/25 05:27 Loperamide Hcl 2 Mg Capsule PO 2 mg Q12H PRN Administration Diarrhea Loperamide HCl 2 mg 03/23/25 14:44 Loperamide Hcl 2 Mg Capsule PO PRN PRN Diarrhea Methotrexate 7.5 mg 03/21/25 09:00 03/21/25 09:07 Methotrexate 2.5 Mg Tab (*Chemo) PO 7.5 mg WEEKLY DOC Administration Miscellaneous Information 1 each 03/20/25 00:01 Order Clarification -Docusate/Senna Q Hs Is Duplicate Therapy With Senna Bid (Home Med). H XX 04/19/25 00:00 [facility] Multivitamins Therapeutic 1 tablet 03/21/25 09:00 03/23/25 08:50 Multivitamins Therapeutic Tab (*Bkc) PO 1 tablet DAILY DOC Administration Pantoprazole Sodium 40 mg 03/20/25 11:15 03/23/25 08:50 Pantoprazole 40 Mg Tablet PO 40 mg QAM DOC Administration Prednisone 40 mg 03/21/25 08:00 03/23/25 08:49 Prednisone 20 Mg Tablet PO 40 mg DAILY@0800 DOC Administration Pregabalin 150 mg 03/20/25 09:00 03/23/25 08:50 Pregabalin (*Crx) 75 Mg Capsule PO 150 mg BID DOC Administration Senna 8.6 mg 03/20/25 17:00 03/23/25 08:49 Sennosides 8.6 Mg Tablet PO 8.6 mg BID DOC Administration Senna/Docusate Sodium 1 tab 03/19/25 21:00 03/22/25 20:40 Senna/Docusate Sodium Tablet PO 1 tab HS DOC Administration Sodium Chloride 10 ml 03/20/25 14:00 03/23/25 12:35 Saline Lock Flush IV PUSH 10 ml Q8HR DOC Administration Sodium Chloride 10 ml 03/20/25 13:40 Saline Lock Flush IV PUSH PRN PRN Flush Sodium Chloride 20 ml 03/20/25 13:40 Saline Lock Flush IV PUSH PRN PRN after blood draws Trazodone HCl 50 mg 03/20/25 21:00 03/22/25 20:40 Trazodone Hcl 50 Mg Tablet PO 50 mg HS DOC Administration Umeclidinium/Vilanterol 1 puff 03/20/25 08:00 03/23/25 08:31 Umeclidinium/Vilanterol 62.5-25 Mcg Ellipta INHALATION 1 puff DAILYRT DOC Administration Radiology Results: ITS Impressions Chest X-Ray 03/19/25 11:38 IMPRESSION: Bilateral pneumonia. Underlying pulmonary edema is not excluded. Labs Labs: Laboratory Results - last 24 hr 03/23/25 03/23/25 05:15 13:30 WBC 13.7 H RBC 3.60 L Hgb 11.3 L Hct 36.3 L MCV 100.8 H MCH 31.4 MCHC 31.1 L RDW 12.2 Plt Count 273 MPV 11.6 H Sodium 139 Potassium 4.0 Chloride 93 L Carbon Dioxide 38 H Anion Gap 8 BUN 28 H Creatinine 0.76 Estim Creat Clear Calc 48 Estimated GFR > 60 Glucose 109 Calcium 9.2 Magnesium 1.9 Total Bilirubin 0.3 AST 28 ALT 19 Alkaline Phosphatase 38 Total Protein 7.4 Albumin 4.1 C. difficile (PCR) Negative Quality VTE Prophylaxis VTE prophylaxis: mechanical ordered and pharmacologic ordered -Patient's previous records reviewed on admission -ER notes reviewed in detail on admission -discussed all findings and current treatment plan with patient/Family/POA -Consultations reviewed for recommendations -Patient's disposition for safe discharge discussed with information systems consultant Dictation performed by [employer] direct speech recognition software, therefore bronze plater variants and typographical errors may occur. Hospitalist MIPS Advance Care Plan I have confirmed that the patient's Advanced Care Plan is present, code status is documented, or surrogate decision maker is listed in patient medical record.: Yes Medication Reconciliation I have utilized all available resources to obtain, update and review the patients current medications (includes all prescriptions, OTC, herbals, cannabis, and nutritional supplements).: Yes The patient is not eligible for med reconciliation; the patient is in a emergent medical situation where delaying treatment would jeopardize the patients health.: No
[2025-03-23] MEDS: ATORVASTATIN 40 MG TABLET PO (17:33)
[2025-03-23] MEDS: LOPERAMIDE HCL 2 MG CAPSULE PO ×2 (17:38→23:08)
[2025-03-24] VITALS (18 sets, daily range): BP systolic 108–135; BP diastolic 51–55; PULSE 61–84; RESP 16–20; TEMP 35.8–36.7; O2SAT 90–94
[2025-03-24] MEDS: IPRATROPIUM 0.5 MG/ALBUTEROL SULFATE 2.5 MG AMPUL.NEB 3 ML INHALATION ×4 (02:16→20:29)
[2025-03-24] MEDS: SALINE LOCK FLUSH 20 ML IV PUSH (05:47)
[2025-03-24] MEDS: SALINE LOCK FLUSH 10 ML IV PUSH ×3 (05:47→22:25)
[2025-03-24 05:53] LABS: Hematocrit 35.6 % (37.0-47.0); Hemoglobin 11.3 g/dL (12.0-15.0); Mean Corpuscular HGB Conc 31.7 g/dl (32-36); Mean Corpuscular Hemoglobin 31.3 pg (26-34); Mean Corpuscular Volume 98.6 fl (80-100); Platelet Count Result 293 k/mm3 (150-375); Red Blood Count 3.61 M/mm3 (4.2-5.4); White Blood Count 16.8 K/mm3 (4.5-10.0)
[2025-03-24 06:19] LABS: Alanine Aminotransferase 24 U/L (6-35); Albumin Level 3.8 g/dL (3.5-5.1); Alkaline Phosphatase 38 U/L (38-126); Anion Gap 6 mmol/L (4-12); Aspartate Amino Transferase 28 U/L (14-36); Bilirubin,Total 0.3 mg/dL (0.2-1.3); Blood Urea Nitrogen 34 mg/dL (7-17); Calcium 9.2 mg/dL (8.4-10.2); Carbon Dioxide 39 mmol/L (22-30); Chloride 92 mmol/L (98-107); Estimated CRCL calculation 41 ml/min; Estimated Glomerular Filt Rate 60; Glucose 115 mg/dL (65-110); Magnesium 1.9 mg/dL (1.6-2.3); Potassium 4.2 mmol/L (3.4-5.0); Sodium 137 mmol/L (137-145); Total Protein 7.1 g/dL (6.3-8.2)
[2025-03-24] MEDS: UMECLIDINIUM/VILANTEROL 62.5-25 MCG ELLIPTA 1 PUFF INHALATION (07:28)
[2025-03-24] MEDS: LOPERAMIDE HCL 2 MG CAPSULE PO (09:10)
[2025-03-24] MEDS: APIXABAN 2.5 MG TABLET PO ×2 (09:11→18:17)
[2025-03-24] MEDS: MULTIVITAMINS THERAPEUTIC TAB (*BKC) 1 TABLET PO (09:11)
[2025-03-24] MEDS: HYDROcodone/acetaminophen (*CRX) 10-325 MG TABLET 1 TAB PO ×4 (09:11→22:25)
[2025-03-24] MEDS: PREGABALIN (*CRX) 75 MG CAPSULE 150 MG PO ×2 (09:11→18:16)
[2025-03-24] MEDS: PANTOPRAZOLE 40 MG TABLET PO (09:11)
[2025-03-24] MEDS: FUROSEMIDE 40 MG TABLET PO (09:11)
[2025-03-24] MEDS: ASCORBIC ACID 500 MG TABLET PO ×2 (09:11→22:24)
[2025-03-24] MEDS: MEROPENEM 1 GM/NS 100 ML 1 GM/100 ML BAG IVPB ×2 (09:12→22:23)
[2025-03-24] MEDS: LIPASE/AMYLASE/PROTEASE 12,000 UNITS CAP 4 CAP PO ×3 (09:12→18:16)
[2025-03-24] MEDS: ARTIFICIAL TEARS OPHTH SOLN 15 ML BOTTLE 1 DROP EACH EYE ×2 (09:12→18:17)
[2025-03-24] MEDS: guaiFENesin 12 HR 600 MG TABCR 1200 MG PO ×2 (09:25→22:24)
[2025-03-24] MEDS: diphenhydrAMINE HCl CAP 25 MG CAPSULE PO ×2 (12:49→22:32)
--- NOTE | 2025-03-24 14:27 | P.PNIM_ITS ---
Progress Note: A&P Assessment and Plan (1) Acute on chronic respiratory failure with hypoxia and hypercapnia: Code(s): J96.21 - Acute and chronic respiratory failure with hypoxia; J96.22 - Acute and chronic respiratory failure with hypercapnia Status: Acute Assessment and Plan: Patient presented with worsening shortness a breath chronically [facility] wears 2-3 L of supplemental oxygen due to chronic COPD, ABG did show acute on chronic hypoxia with hypercapnia. CXR showing bilateral pneumonia likely secondary pneumonia and COPD exacerbation. WBC bumped follow-up CXR with unchanged bilateral Pneumonia, MRSA negative * added Levaquin for broader coverage already on meropenem * ordered CT chest * DuoNebs q.6 * prednisone 40 mg daily * azithromycin and meropenem to cover UTI as well * Guaifenesin * wean O2 to baseline * incentive spirometer while awake * blood cultures NGTD (2) Pneumonia: Qualifiers: Laterality: bilateral Lung location: lower lobe of lung Pneumonia type: due to unspecified organism Qualified Code(s): J18.9 - Pneumonia, unspecified organism Code(s): J18.9 - Pneumonia, unspecified organism Status: Acute Assessment and Plan: SEE ABOVE (3) COPD (chronic obstructive pulmonary disease): Qualifiers: COPD type: unspecified COPD Qualified Code(s): J44.9 - Chronic obstructive pulmonary disease, unspecified Code(s): J44.9 - Chronic obstructive pulmonary disease, unspecified Status: Chronic Assessment and Plan: patient with chronic COPD versus 2-3 L of home oxygen at [facility] * SEE ABOVE (4) Diastolic congestive heart failure: Code(s): I50.30 - Unspecified diastolic (congestive) heart failure Status: Acute Assessment and Plan: CXR showed possible underlying pulmonary edema as well. Patient's last echocardiogram on 08/2023 showed diastolic dysfunction with LVEF of 60-65% * resume patient's oral furosemide daily * monitor for fluid overload * daily weights (5) Hypomagnesemia: Code(s): E83.42 - Hypomagnesemia Status: Acute Assessment and Plan: magnesium was 1.3 POA given 2 g magnesium in the ED * Daily magnesium * replenish as needed keep greater than 2.0 (6) HTN (hypertension): Qualifiers: Hypertension type: unspecified Qualified Code(s): I10 - Essential (primary) hypertension Code(s): I10 - Essential (primary) hypertension Status: Chronic Assessment and Plan: * resume losartan and carvedilol * monitor per unit protocol (7) Anemia of chronic disease: Code(s): D63.8 - Anemia in other chronic diseases classified elsewhere Status: Acute Assessment and Plan: hemoglobin reviewed and stable no signs of active bleed * continued Eliquis * continued her ferrous sulfate * will trend H and H transfuse PRBCs <7.0 (8) Diarrhea: Code(s): R19.7 - Diarrhea, unspecified Status: Acute Assessment and Plan: * c-diff negative * continue Imodium * gentle IV fluids for mild dehydration (9) Osteoarthritis of bilateral glenohumeral joints: Code(s): M19.011 - Primary osteoarthritis, right shoulder; M19.012 - Primary osteoarthritis, left shoulder Status: Acute Assessment and Plan: * Continue methotrexate (10) Exocrine pancreatic insufficiency: Code(s): K86.81 - Exocrine pancreatic insufficiency Status: Chronic Assessment and Plan: * Continue Creon (11) UTI (urinary tract infection): Code(s): N39.0 - Urinary tract infection, site not specified Status: Acute Assessment and Plan: on patient's medication list it showed meropenem for ESBL cystitis IV patient also presented with a midline attempting to find out have any doses patient had received. UA suspicious for urinary tract infection * switched ceftriaxone to meropenem for ESBL coverage since unable to determine length of patient's therapy and was only receiving meropenem daily will continue to treat with IV meropenem b.i.d. while inpatient she can then t ransitioned to IV ertapenem daily upon discharge for a total 7 days of therapy Plan Code status: Full code per patient DVT prophylaxis: SCD/Eliquis Stress ulcer prophylaxis: Protonix 40 daily PT/OT notes: PT/OT rehab back at [facility] Disposition: Patient continues admission to the medical unit for treatment pneumonia and ESBL UTI patient is improving overall with treatments still with cough shortness of breaths WBC bumped and CXR showing unchanged bilateral pneumonia added Levaquin and chest CT. Time Spent With Patient Time with patient: 15 - 25 minutes Subjective Date/time seen: 03/24/25 14:27 Interval history: Patient is an 80-year-old female admitted for acute on chronic respiratory failure with hypoxia and hypercapnia secondary to bilateral pneumonia. 03/24/2025: Patient still reports SOB and moderate non-productive cough. WBC bumped up and follow-up CXR still showing unchanged bilateral penumonia Review of Systems Review of Systems: 12 systems were reviewed and are negativ e except for as per HPI. All systems reviewed & are unremarkable except as noted in HPI and below Exam Narrative: General: NAD HEENT: normocephalic, atraumatic. Respiratory: Inspiratory and expiratory wheezes, positive cough with sputum Cardiovascular: RRR Abdomen: Soft, round, Extremities: No cyanosis, clubbing, or edema present. Neuro: Alert and orientated x 1to 2 . Skin: Warm, dry, and intact, without rash, erythema, or lesion. Psych: pleasant, cooperative, Objective Data Vital Signs Vital Signs: Vital Signs - 24 hr 03/23/25 14:54 03/23/25 16:00 03/23/25 19:56 Temperature 97.9 F Pulse Rate 80 85 83 Respiratory Rate 18 18 Blood Pressure 91/55 L Pulse Oximetry 93 Oxygen Delivery Oxygen Flow Rate 03/23/25 20:00 03/23/25 20:03 03/23/25 20:46 Temperature Pulse Rate 83 83 Respiratory Rate 18 Blood Pressure Pulse Oximetry 95 95 Oxygen Delivery Nasal Cannula Nasal Cannula Oxygen Flow Rate 1 2 03/23/25 21:13 03/23/25 22:30 03/24/25 00:00 Temperature 97.4 F L Pulse Rate 84 84 62 Respiratory Rate 16 Blood Pressure 100/74 Pulse Oximetry 95 Oxygen Delivery Oxygen Flow Rate 03/24/25 02:17 03/24/25 04:00 03/24/25 06:00 Temperature 98.0 F Pulse Rate 74 61 66 Respiratory Rate 20 18 Blood Pressure 135/54 L Pulse Oximetry 92 Oxygen Delivery Oxygen Flow Rate 03/24/25 07:28 03/24/25 07:28 03/24/25 07:38 Temperature Pulse Rate 75 70 Respiratory Rate 20 20 Blood Pressure Pulse Oximetry 92 Oxygen Delivery Nasal Cannula Oxygen Flow Rate 1 03/24/25 09:11 03/24/25 13:17 03/24/25 13:30 Temperature Pulse Rate 68 84 84 Respiratory Rate 20 20 Blood Pressure Pulse Oximetry Oxygen Delivery Oxygen Flow Rate Intake/Output Intake/Output: Intake & Output 03/21/25 03/22/25 03/23/25 03/24/25 23:59 23:59 23:59 23:59 Intake Total 1870 1460 1270 480 Output Total 700 1900 100 Balance 1870 760 -428 380 Meds/Results Medications: Active Medications Generic Name Dose Route Start Last Admin Trade Name Freq PRN Reason Stop Dose Admin Hydrocodone Bitart/Acetaminophen 1 tab 03/20/25 09:00 03/24/25 12:50 Hydrocodone/Acetaminophen (*Crx) 10-325 Mg Tablet PO 1 tab QID DOC Administration Albuterol/Ipratropium 3 ml 03/19/25 14:00 03/24/25 13:17 Ipratropium 0.5 Mg/Albuterol Sulfate 2.5 Mg Ampul.Neb 3 Ml INHALATION 3 ml Q6HRT DOC Administration Albuterol/Ipratropium 3 ml 03/20/25 14:00 Ipratropium 0.5 Mg/Albuterol Sulfate 2.5 Mg Ampul.Neb 3 Ml INHALATION Q6HRT PRN Shortness Of Breath Lipase/Protease/Amylase 4 cap 03/20/25 09:00 03/24/25 12:50 Lipase/Amylase/Protease 12,000 Units Cap PO 4 cap TID DOC Administration Apixaban 2.5 mg 03/20/25 09:00 03/24/25 09:11 Apixaban 2.5 Mg Tablet PO 2.5 mg BID DOC Administration Artificial Tears 1 drop 03/20/25 17:00 03/24/25 09:12 Artificial Tears Ophth Soln 15 Ml Bottle EACH EYE 1 drop BID DOC Administration Ascorbic Acid 500 mg 03/20/25 11:05 03/24/25 09:11 Ascorbic Acid 500 Mg Tablet PO 500 mg Q12HRT DOC Administration Atorvastatin Calcium 40 mg 03/20/25 18:00 03/23/25 17:33 Atorvastatin 40 Mg Tablet PO 40 mg QPM DOC Administration Bisacodyl 10 mg 03/20/25 10:56 Bisacodyl 10 Mg Suppository RECTAL DAILY PRN constipation Budesonide 0.5 mg 03/24/25 20:00 Budesonide Respule Neb 0.5 Mg/2 Ml Amp INHALATION Q12HRT DOC Bupropion HCl 75 mg 03/20/25 09:00 03/24/25 09:11 Bupropion Hcl 75 Mg Tablet PO 75 mg DAILY DOC Administration Carvedilol 3.125 mg 03/20/25 09:00 03/24/25 09:11 Carvedilol 3.125 Mg Tablet PO 3.125 mg Q12HR DOC Administration Dextrose 12.5 gm 03/19/25 12:38 Dextrose 50% 25 Gm/50 Ml Syringe IV PUSH PRN PRN Hypoglycemia Protocol Diphenhydramine HCl 25 mg 03/20/25 21:21 03/24/25 12:49 Diphenhydramine Hcl Cap 25 Mg Capsule PO 25 mg Q6H PRN Administration Itching Furosemide 40 mg 03/20/25 09:00 03/24/25 09:11 Furosemide 40 Mg Tablet PO 40 mg QAM DOC Administration Glucagon 1 mg 03/19/25 12:38 Glucagon For Inj 1 Mg Vial IM PRN PRN Hypoglycemia Protocol Glucose 15 gm 03/19/25 12:38 Glucose Oral Gel 15 Gm Of Glucse In 37.5 Gm Tube PO PRN PRN Hypoglycemia Protocol Guaifenesin 1,200 mg 03/24/25 09:00 03/24/25 09:25 Guaifenesin 12 Hr 600 Mg Tabcr PO 1,200 mg Q12HR DOC Administration Dextrose 1,000 mls @ 100 mls/hr 03/19/25 12:38 Dextrose 5% 1,000 Ml IVPB PRN PRN Hypoglycemia Protocol Meropenem 1 gm in 100 mls @ 200 mls/hr 03/20/25 21:00 03/24/25 09:12 IVPB 100 mls/hr Q12HR DOC Administration Loperamide HCl 2 mg 03/23/25 14:46 03/24/25 09:10 Loperamide Hcl 2 Mg Capsule PO 2 mg Q6H PRN Administration Diarrhea Methotrexate 7.5 mg 03/21/25 09:00 03/21/25 09:07 Methotrexate 2.5 Mg Tab (*Chemo) PO 7.5 mg WEEKLY DOC Administration Multivitamins Therapeutic 1 tablet 03/21/25 09:00 03/24/25 09:11 Multivitamins Therapeutic Tab (*Bkc) PO 1 tablet DAILY DOC Administration Pantoprazole Sodium 40 mg 03/20/25 11:15 03/24/25 09:11 Pantoprazole 40 Mg Tablet PO 40 mg QAM DOC Administration Prednisone 40 mg 03/21/25 08:00 03/24/25 09:11 Prednisone 20 Mg Tablet PO 40 mg DAILY@0800 DOC Administration Pregabalin 150 mg 03/20/25 09:00 03/24/25 09:11 Pregabalin (*Crx) 75 Mg Capsule PO 150 mg BID DOC Administration Senna 8.6 mg 03/20/25 17:00 03/23/25 08:49 Sennosides 8.6 Mg Tablet PO 8.6 mg BID DOC Administration Sodium Chloride 10 ml 03/20/25 14:00 03/24/25 12:50 Saline Lock Flush IV PUSH 10 ml Q8HR DOC Administration Sodium Chloride 10 ml 03/20/25 13:40 Saline Lock Flush IV PUSH PRN PRN Flush Sodium Chloride 20 ml 03/20/25 13:40 03/24/25 05:47 Saline Lock Flush IV PUSH 20 ml PRN PRN Administration after blood draws Trazodone HCl 50 mg 03/20/25 21:00 03/23/25 22:30 Trazodone Hcl 50 Mg Tablet PO 50 mg HS DOC Administration Umeclidinium/Vilanterol 1 puff 03/20/25 08:00 03/24/25 07:28 Umeclidinium/Vilanterol 62.5-25 Mcg Ellipta INHALATION 1 puff DAILYRT DOC Administration Radiology Results: ITS Impressions Chest X-Ray 03/24/25 09:17 IMPRESSION: Bilateral pneumonia unchanged from previous examination. Labs Labs: Laboratory Results - last 24 hr 03/24/25 05:45 WBC 16.8 H RBC 3.61 L Hgb 11.3 L Hct 35.6 L MCV 98.6 MCH 31.3 MCHC 31.7 L RDW 12.2 Plt Count 293 MPV 11.4 H Sodium 137 Potassium 4.2 Chloride 92 L Carbon Dioxide 39 H Anion Gap 6 BUN 34 H Creatinine 0.90 Estim Creat Clear Calc 41 Estimated GFR 60 Glucose 115 H Calcium 9.2 Magnesium 1.9 Total Bilirubin 0.3 AST 28 ALT 24 Alkaline Phosphatase 38 Total Protein 7.1 Albumin 3.8 Quality VTE Prophylaxis VTE prophylaxis: mechanical ordered and pharmacologic ordered -Patient's previous records reviewed on admission -ER notes reviewed in detail on admission -discussed all findings and current treatment plan with patient/Family/POA -Consultations reviewed for recommendations -Patient's disposition for safe discharge discussed with child welfare caseworker Dictation performed by [employer] direct speech recognition software, therefore slitting and shipping supervisor variants and typographical errors may occur. Hospitalist MIPS Advance Care Plan I have confirmed that the patient's Advanced Care Plan is present, code status is documented, or surrogate decision maker is listed in patient medical record.: Yes Medication Reconciliation I have utilized all available resources to obtain, update and review the patients current medications (includes all prescriptions, OTC, herbals, cannabis, and nutritional supplements).: Yes The patient is not eligible for med reconciliation; the patient is in a emergent medical situation where delaying treatment would jeopardize the patients health.: No
[2025-03-24 17:23] LABS: MRSA (PCR) NOT DETECTED (NOT DETECTE)
[2025-03-24] MEDS: ATORVASTATIN 40 MG TABLET PO (18:16)
[2025-03-24] MEDS: BUDESONIDE RESPULE NEB 0.5 MG/2 ML AMP INHALATION (20:29)
[2025-03-24] MEDS: levoFLOXacin 750 MG/D5W 150 ML 750 MG/150 ML BAG 100 MG IVPB (22:24)
[2025-03-25] VITALS (17 sets, daily range): BP systolic 120–138; BP diastolic 65–89; PULSE 67–96; RESP 18–20; TEMP 36.6–36.8; O2SAT 94–97
[2025-03-25] MEDS: IPRATROPIUM 0.5 MG/ALBUTEROL SULFATE 2.5 MG AMPUL.NEB 3 ML INHALATION ×4 (01:08→19:29)
[2025-03-25 05:55] LABS: Hematocrit 32.8 % (37.0-47.0); Hemoglobin 10.6 g/dL (12.0-15.0); Mean Corpuscular HGB Conc 32.3 g/dl (32-36); Mean Corpuscular Hemoglobin 31.7 pg (26-34); Mean Corpuscular Volume 98.2 fl (80-100); Platelet Count Result 315 k/mm3 (150-375); Red Blood Count 3.34 M/mm3 (4.2-5.4); White Blood Count 18.1 K/mm3 (4.5-10.0)
[2025-03-25 06:07] LABS: Alanine Aminotransferase 26 U/L (6-35); Albumin Level 3.8 g/dL (3.5-5.1); Alkaline Phosphatase 36 U/L (38-126); Anion Gap 8 mmol/L (4-12); Aspartate Amino Transferase 29 U/L (14-36); Bilirubin,Total 0.2 mg/dL (0.2-1.3); Blood Urea Nitrogen 37 mg/dL (7-17); Calcium 8.8 mg/dL (8.4-10.2); Carbon Dioxide 35 mmol/L (22-30); Chloride 92 mmol/L (98-107); Estimated CRCL calculation 40 ml/min; Estimated Glomerular Filt Rate 59; Glucose 107 mg/dL (65-110); Magnesium 2.0 mg/dL (1.6-2.3); Potassium 4.1 mmol/L (3.4-5.0); Sodium 135 mmol/L (137-145); Total Protein 6.7 g/dL (6.3-8.2)
[2025-03-25] MEDS: BUDESONIDE RESPULE NEB 0.5 MG/2 ML AMP INHALATION ×2 (07:35→19:29)
[2025-03-25] MEDS: UMECLIDINIUM/VILANTEROL 62.5-25 MCG ELLIPTA 1 PUFF INHALATION (07:37)
[2025-03-25] MEDS: MULTIVITAMINS THERAPEUTIC TAB (*BKC) 1 TABLET PO (10:01)
[2025-03-25] MEDS: ASCORBIC ACID 500 MG TABLET PO ×2 (10:02→21:04)
[2025-03-25] MEDS: APIXABAN 2.5 MG TABLET PO ×2 (10:02→18:08)
[2025-03-25] MEDS: guaiFENesin 12 HR 600 MG TABCR 1200 MG PO ×2 (10:02→21:04)
[2025-03-25] MEDS: PREGABALIN (*CRX) 75 MG CAPSULE 150 MG PO ×2 (10:02→18:07)
[2025-03-25] MEDS: FUROSEMIDE 40 MG TABLET PO (10:03)
[2025-03-25] MEDS: PANTOPRAZOLE 40 MG TABLET PO (10:03)
[2025-03-25] MEDS: LIPASE/AMYLASE/PROTEASE 12,000 UNITS CAP 4 CAP PO ×3 (10:03→18:07)
[2025-03-25] MEDS: ARTIFICIAL TEARS OPHTH SOLN 15 ML BOTTLE 1 DROP EACH EYE ×2 (10:05→18:08)
[2025-03-25] MEDS: SALINE LOCK FLUSH 10 ML IV PUSH ×3 (10:06→21:08)
[2025-03-25] MEDS: diphenhydrAMINE HCl CAP 25 MG CAPSULE PO (10:09)
[2025-03-25] MEDS: HYDROcodone/acetaminophen (*CRX) 10-325 MG TABLET 1 TAB PO ×4 (10:09→21:04)
[2025-03-25] MEDS: MEROPENEM 1 GM/NS 100 ML 1 GM/100 ML BAG IVPB ×2 (10:10→21:03)
--- NOTE | 2025-03-25 14:43 | P.PNIM_ITS ---
Progress Note: A&P Assessment and Plan (1) Acute on chronic respiratory failure with hypoxia and hypercapnia: Code(s): J96.21 - Acute and chronic respiratory failure with hypoxia; J96.22 - Acute and chronic respiratory failure with hypercapnia Status: Acute Assessment and Plan: Patient presented with worsening shortness a breath chronically skilled nursing wears 2-3 L of supplemental oxygen due to chronic COPD, ABG did show acute on chronic hypoxia with hypercapnia. CXR showing bilateral pneumonia likely secondary pneumonia and COPD exacerbation. WBC bumped follow-up CXR with unchanged bilateral Pneumonia, MRSA negative * added Levaquin for broader coverage already on meropenem * ordered CT chest pending * added Mucomyst * Legionella, mycoplasma and pneumococcal pending * DuoNebs q.6 * prednisone 40 mg daily * azithromycin and meropenem to cover UTI as well * Guaifenesin * wean O2 to baseline * incentive spirometer while awake * blood cultures NGTD (2) Pneumonia: Qualifiers: Laterality: bilateral Lung location: lower lobe of lung Pneumonia type: due to unspecified organism Qualified Code(s): J18.9 - Pneumonia, unspecified organism Code(s): J18.9 - Pneumonia, unspecified organism Status: Acute Assessment and Plan: SEE ABOVE (3) COPD (chronic obstructive pulmonary disease): Qualifiers: COPD type: unspecified COPD Qualified Code(s): J44.9 - Chronic obstructive pulmonary disease, unspecified Code(s): J44.9 - Chronic obstructive pulmonary disease, unspecified Status: Chronic Assessment and Plan: patient with chronic COPD versus 2-3 L of home oxygen at skilled nursing * SEE ABOVE (4) Diastolic congestive heart failure: Code(s): I50.30 - Unspecified diastolic (congestive) heart failure Status: Acute Assessment and Plan: CXR showed possible underlying pulmonary edema as well. Patient's last echocardiogram on 08/2023 showed diastolic dysfunction with LVEF of 60-65% * resume patient's oral furosemide daily * monitor for fluid overload * daily weights (5) Hypomagnesemia: Code(s): E83.42 - Hypomagnesemia Status: Acute Assessment and Plan: magnesium was 1.3 POA given 2 g magnesium in the ED * Daily magnesium * replenish as needed keep greater than 2.0 (6) HTN (hypertension): Qualifiers: Hypertension type: unspecified Qualified Code(s): I10 - Essential (primary) hypertension Code(s): I10 - Essential (primary) hypertension Status: Chronic Assessment and Plan: * resume losartan and carvedilol * monitor per unit protocol (7) Anemia of chronic disease: Code(s): D63.8 - Anemia in other chronic diseases classified elsewhere Status: Acute Assessment and Plan: hemoglobin reviewed and stable no signs of active bleed * continued Eliquis * continued her ferrous sulfate * will trend H and H transfuse PRBCs <7.0 (8) Diarrhea: Code(s): R19.7 - Diarrhea, unspecified Status: Acute Assessment and Plan: * c-diff negative * continue Imodium * gentle IV fluids for mild dehydration (9) Osteoarthritis of bilateral glenohumeral joints: Code(s): M19.011 - Primary osteoarthritis, right shoulder; M19.012 - Primary osteoarthritis, left shoulder Status: Acute Assessment and Plan: * Continue methotrexate (10) Exocrine pancreatic insufficiency: Code(s): K86.81 - Exocrine pancreatic insufficiency Status: Chronic Assessment and Plan: * Continue Creon (11) UTI (urinary tract infection): Code(s): N39.0 - Urinary tract infection, site not specified Status: Acute Assessment and Plan: on patient's medication list it showed meropenem for ESBL cystitis IV patient also presented with a midline attempting to find out have any doses patient had received. UA suspicious for urinary tract infection * switched ceftriaxone to meropenem for ESBL coverage since unable to determine length of patient's therapy and was only receiving meropenem daily will continue to treat with IV meropenem b.i.d. while inpatient she can then transitioned to IV ertapenem daily upon discharge for a total 7 days of therapy 4 more doses Plan Code status: Full code per patient DVT prophylaxis: SCD/Eliquis Stress ulcer prophylaxis: Protonix 40 daily PT/OT notes: PT/OT rehab back at [facility] Disposition: Patient continues admission to the medical unit for treatment pneumonia and ESBL UTI patient is improving overall with treatments still with cough shortness of breaths WBC bumped and CXR showing unchanged bilateral pneumonia added Levaquin and chest CT. Time Spent With Patient Time with patient: 15 - 25 minutes Subjective Date/time seen: 03/25/25 14:43 Interval history: Patient is an 80-year-old female admitted for acute on chronic respiratory failure with hypoxia and hypercapnia secondary to bilateral pneumonia. 03/25/2025: Patient still reports SOB and moderate non-productive cough but feels like she can't clear. WBC continues to climb even with the start of Levaquin and chest x-ray showing unchanged bilateral pneumonia. Review of Systems Review of Systems: 12 systems were reviewed and are negativ e except for as per HPI. All systems reviewed & are unremarkable except as noted in HPI and below Exam Narrative: General: NAD HEENT: normocephalic, atraumatic. Respiratory: Inspiratory and expiratory wheezes, positive cough dry but sputum production unable to clear Cardiovascular: RRR Abdomen: Soft, round, Extremities: No cyanosis, clubbing, or edema present. Neuro: Alert and orientated x 1to 2 . Skin: Warm, dry, and intact, without rash, erythema, or lesion. Psych: pleasant, cooperative Objective Data Vital Signs Vital Signs: Vital Signs - 24 hr 03/24/25 16:00 03/24/25 20:00 03/24/25 20:00 Temperature Pulse Rate 73 75 74 Respiratory Rate 20 Blood Pressure Pulse Oximetry 90 Oxygen Delivery Room Air Oxygen Flow Rate Fraction of Inspired Oxygen 21 03/24/25 20:30 03/24/25 20:31 03/24/25 20:46 Temperature Pulse Rate 78 76 75 Respiratory Rate 20 20 20 Blood Pressure Pulse Oximetry 90 Oxygen Delivery Room Air Oxygen Flow Rate Fraction of Inspired Oxygen 21 03/24/25 21:43 03/25/25 00:00 03/25/25 01:09 Temperature 97.3 F L Pulse Rate 78 69 71 Respiratory Rate 16 20 Blood Pressure 108/51 L Pulse Oximetry 93 Oxygen Delivery Oxygen Flow Rate Fraction of Inspired Oxygen 03/25/25 04:00 03/25/25 06:00 03/25/25 07:38 Temperature 98.3 F Pulse Rate 69 69 69 Respiratory Rate 18 20 Blood Pressure 138/65 Pulse Oximetry 96 97 Oxygen Delivery Nasal Cannula Oxygen Flow Rate 3 Fraction of Inspired Oxygen 03/25/25 07:38 03/25/25 07:49 03/25/25 10:02 Temperature Pulse Rate 69 96 68 Respiratory Rate 20 20 Blood Pressure Pulse Oximetry Oxygen Delivery Oxygen Flow Rate Fraction of Inspired Oxygen 03/25/25 14:00 03/25/25 14:08 03/25/25 14:08 Temperature 98.0 F Pulse Rate 73 75 75 Respiratory Rate 18 20 20 Blood Pressure 125/75 Pulse Oximetry 97 94 Oxygen Delivery Nasal Cannula Oxygen Flow Rate 3 Fraction of Inspired Oxygen 03/25/25 14:18 Temperature Pulse Rate 76 Respiratory Rate 20 Blood Pressure Pulse Oximetry Oxygen Delivery Oxygen Flow Rate Fraction of Inspired Oxygen Intake/Output Intake/Output: Intake & Output 03/22/25 03/23/25 03/24/25 03/25/25 23:59 23:59 23:59 23:59 Intake Total 1460 1270 1070 1080 Output Total 700 1900 1100 2100 Balance 760 - Meds/Results Medications: Active Medications Generic Name Dose Route Start Last Admin Trade Name Freq PRN Reason Stop Dose Admin Hydrocodone Bitart/Acetaminophen 1 tab 03/20/25 09:00 03/25/25 13:24 Hydrocodone/Acetaminophen (*Crx) 10-325 Mg Tablet PO 1 tab QID DOC Administration Albuterol/Ipratropium 3 ml 03/19/25 14:00 03/25/25 14:07 Ipratropium 0.5 Mg/Albuterol Sulfate 2.5 Mg Ampul.Neb 3 Ml INHALATION 3 ml Q6HRT DOC Administration Albuterol/Ipratropium 3 ml 03/20/25 14:00 Ipratropium 0.5 Mg/Albuterol Sulfate 2.5 Mg Ampul.Neb 3 Ml INHALATION Q6HRT PRN Shortness Of Breath Lipase/Protease/Amylase 4 cap 03/20/25 09:00 03/25/25 13:24 Lipase/Amylase/Protease 12,000 Units Cap PO 4 cap TID DOC Administration Apixaban 2.5 mg 03/20/25 09:00 03/25/25 10:02 Apixaban 2.5 Mg Tablet PO 2.5 mg BID DOC Administration Artificial Tears 1 drop 03/20/25 17:00 03/25/25 10:05 Artificial Tears Ophth Soln 15 Ml Bottle EACH EYE 1 drop BID DOC Administration Ascorbic Acid 500 mg 03/20/25 11:05 03/25/25 10:02 Ascorbic Acid 500 Mg Tablet PO 500 mg Q12HRT DOC Administration Atorvastatin Calcium 40 mg 03/20/25 18:00 03/24/25 18:16 Atorvastatin 40 Mg Tablet PO 40 mg QPM DOC Administration Bisacodyl 10 mg 03/20/25 10:56 Bisacodyl 10 Mg Suppository RECTAL DAILY PRN constipation Budesonide 0.5 mg 03/24/25 20:00 03/25/25 07:35 Budesonide Respule Neb 0.5 Mg/2 Ml Amp INHALATION 0.5 mg Q12HRT DOC Administration Bupropion HCl 75 mg 03/20/25 09:00 03/25/25 10:02 Bupropion Hcl 75 Mg Tablet PO 75 mg DAILY DOC Administration Carvedilol 3.125 mg 03/20/25 09:00 03/25/25 10:02 Carvedilol 3.125 Mg Tablet PO 3.125 mg Q12HR DOC Administration Dextrose 12.5 gm 03/19/25 12:38 Dextrose 50% 25 Gm/50 Ml Syringe IV PUSH PRN PRN Hypoglycemia Protocol Diphenhydramine HCl 25 mg 03/20/25 21:21 03/25/25 10:09 Diphenhydramine Hcl Cap 25 Mg Capsule PO 25 mg Q6H PRN Administration Itching Furosemide 40 mg 03/20/25 09:00 03/25/25 10:03 Furosemide 40 Mg Tablet PO 40 mg QAM DOC Administration Glucagon 1 mg 03/19/25 12:38 Glucagon For Inj 1 Mg Vial IM PRN PRN Hypoglycemia Protocol Glucose 15 gm 03/19/25 12:38 Glucose Oral Gel 15 Gm Of Glucse In 37.5 Gm Tube PO PRN PRN Hypoglycemia Protocol Guaifenesin 1,200 mg 03/24/25 09:00 03/25/25 10:02 Guaifenesin 12 Hr 600 Mg Tabcr PO 1,200 mg Q12HR DOC Administration Dextrose 1,000 mls @ 100 mls/hr 03/19/25 12:38 Dextrose 5% 1,000 Ml IVPB PRN PRN Hypoglycemia Protocol Meropenem 1 gm in 100 mls @ 200 mls/hr 03/20/25 21:00 03/25/25 10:10 IVPB 100 mls/hr Q12HR DOC Administration Levofloxacin/Dextrose 750 mg in 150 mls @ 100 mls/hr 03/24/25 20:00 03/24/25 23:55 Levaquin 750 Mg/D5w 150 Ml IVPB Infused Q48H DOC Infusion Loperamide HCl 2 mg 03/23/25 14:46 03/24/25 09:10 Loperamide Hcl 2 Mg Capsule PO 2 mg Q6H PRN Administration Diarrhea Methotrexate 7.5 mg 03/21/25 09:00 03/21/25 09:07 Methotrexate 2.5 Mg Tab (*Chemo) PO 7.5 mg WEEKLY DOC Administration Multivitamins Therapeutic 1 tablet 03/21/25 09:00 03/25/25 10:01 Multivitamins Therapeutic Tab (*Bkc) PO 1 tablet DAILY DOC Administration Pantoprazole Sodium 40 mg 03/20/25 11:15 03/25/25 10:03 Pantoprazole 40 Mg Tablet PO 40 mg QAM DOC Administration Prednisone 40 mg 03/21/25 08:00 03/25/25 10:01 Prednisone 20 Mg Tablet PO 40 mg DAILY@0800 DOC Administration Pregabalin 150 mg 03/20/25 09:00 03/25/25 10:02 Pregabalin (*Crx) 75 Mg Capsule PO 150 mg BID DOC Administration Senna 8.6 mg 03/20/25 17:00 03/23/25 08:49 Sennosides 8.6 Mg Tablet PO 8.6 mg BID DOC Administration Sodium Chloride 10 ml 03/20/25 14:00 03/25/25 13:25 Saline Lock Flush IV PUSH 10 ml Q8HR DOC Administration Sodium Chloride 10 ml 03/20/25 13:40 Saline Lock Flush IV PUSH PRN PRN Flush Sodium Chloride 20 ml 03/20/25 13:40 03/24/25 05:47 Saline Lock Flush IV PUSH 20 ml PRN PRN Administration after blood draws Trazodone HCl 50 mg 03/20/25 21:00 03/24/25 22:24 Trazodone Hcl 50 Mg Tablet PO 50 mg HS DOC Administration Umeclidinium/Vilanterol 1 puff 03/20/25 08:00 03/25/25 07:37 Umeclidinium/Vilanterol 62.5-25 Mcg Ellipta INHALATION 1 puff DAILYRT DOC Administration Radiology Results: ITS Impressions Chest X-Ray 03/24/25 09:17 IMPRESSION: Bilateral pneumonia unchanged from previous examination. Labs Labs: Laboratory Results - last 24 hr 03/24/25 03/25/25 16:05 05:34 WBC 18.1 H RBC 3.34 L Hgb 10.6 L Hct 32.8 L MCV 98.2 MCH 31.7 MCHC 32.3 RDW 12.2 Plt Count 315 MPV 11.7 H Sodium 135 L Potassium 4.1 Chloride 92 L Carbon Dioxide 35 H Anion Gap 8 BUN 37 H Creatinine 0.91 Estim Creat Clear Calc 40 Estimated GFR 59 Glucose 107 Calcium 8.8 Magnesium 2.0 Total Bilirubin 0.2 AST 29 ALT 26 Alkaline Phosphatase 36 L Total Protein 6.7 Albumin 3.8 Nasal MRSA (PCR) Not detected Quality VTE Prophylaxis VTE prophylaxis: mechanical ordered and pharmacologic ordered -Patient's previous records reviewed on admission -ER notes reviewed in detail on admission -discussed all findings and current treatment plan with patient/Family/POA -Consultations reviewed for recommendations -Patient's disposition for safe discharge discussed with vocational case manager Dictation performed by [employer] direct speech recognition software, therefore professor of finance variants and typographical errors may occur. Hospitalist MIPS Advance Care Plan I have confirmed that the patient's Advanced Care Plan is present, code status is documented, or surrogate decision maker is listed in patient medical record.: Yes Medication Reconciliation I have utilized all available resources to obtain, update and review the patients current medications (includes all prescriptions, OTC, herbals, cannabis, and nutritional supplements).: Yes The patient is not eligible for med reconciliation; the patient is in a emergent medical situation where delaying treatment would jeopardize the patients health.: No
[2025-03-25] MEDS: ATORVASTATIN 40 MG TABLET PO (18:08)
[2025-03-25] MEDS: ACETYLCYSTEINE 20% INHAL SOLN 800 MG/4 ML VIAL 200 MG INHALATION (19:28)
[2025-03-26] VITALS (20 sets, daily range): BP systolic 101–140; BP diastolic 54–72; PULSE 58–93; RESP 16–18; TEMP 36.6–36.7; O2SAT 95–98
[2025-03-26] MEDS: IPRATROPIUM 0.5 MG/ALBUTEROL SULFATE 2.5 MG AMPUL.NEB 3 ML INHALATION ×4 (02:38→21:06)
[2025-03-26] MEDS: ACETYLCYSTEINE 20% INHAL SOLN 800 MG/4 ML VIAL 200 MG INHALATION ×4 (02:38→21:06)
[2025-03-26] MEDS: SALINE LOCK FLUSH 10 ML IV PUSH ×3 (05:45→22:21)
[2025-03-26 06:02] LABS: Hematocrit 34.5 % (37.0-47.0); Hemoglobin 11.0 g/dL (12.0-15.0); Mean Corpuscular HGB Conc 31.9 g/dl (32-36); Mean Corpuscular Hemoglobin 31.7 pg (26-34); Mean Corpuscular Volume 99.4 fl (80-100); Platelet Count Result 326 k/mm3 (150-375); Red Blood Count 3.47 M/mm3 (4.2-5.4); White Blood Count 18.3 K/mm3 (4.5-10.0)
[2025-03-26 06:36] LABS: Alanine Aminotransferase 27 U/L (6-35); Albumin Level 4.0 g/dL (3.5-5.1); Alkaline Phosphatase 40 U/L (38-126); Anion Gap 8 mmol/L (4-12); Aspartate Amino Transferase 26 U/L (14-36); Bilirubin,Total 0.3 mg/dL (0.2-1.3); Blood Urea Nitrogen 41 mg/dL (7-17); Calcium 9.0 mg/dL (8.4-10.2); Carbon Dioxide 35 mmol/L (22-30); Chloride 92 mmol/L (98-107); Estimated CRCL calculation 41 ml/min; Estimated Glomerular Filt Rate 60; Glucose 112 mg/dL (65-110); Magnesium 2.2 mg/dL (1.6-2.3); Potassium 4.3 mmol/L (3.4-5.0); Sodium 135 mmol/L (137-145); Total Protein 7.0 g/dL (6.3-8.2)
[2025-03-26] MEDS: BUDESONIDE RESPULE NEB 0.5 MG/2 ML AMP INHALATION ×2 (07:39→21:06)
[2025-03-26] MEDS: UMECLIDINIUM/VILANTEROL 62.5-25 MCG ELLIPTA 1 PUFF INHALATION (07:43)
[2025-03-26] MEDS: FUROSEMIDE 40 MG TABLET PO (08:14)
[2025-03-26] MEDS: LIPASE/AMYLASE/PROTEASE 12,000 UNITS CAP 4 CAP PO ×3 (08:14→17:40)
[2025-03-26] MEDS: diphenhydrAMINE HCl CAP 25 MG CAPSULE PO (08:14)
[2025-03-26] MEDS: PREGABALIN (*CRX) 75 MG CAPSULE 150 MG PO ×2 (08:14→17:40)
[2025-03-26] MEDS: HYDROcodone/acetaminophen (*CRX) 10-325 MG TABLET 1 TAB PO ×4 (08:14→22:20)
[2025-03-26] MEDS: APIXABAN 2.5 MG TABLET PO ×2 (08:14→17:40)
[2025-03-26] MEDS: PANTOPRAZOLE 40 MG TABLET PO (08:14)
[2025-03-26] MEDS: guaiFENesin 12 HR 600 MG TABCR 1200 MG PO ×2 (08:14→22:20)
[2025-03-26] MEDS: MULTIVITAMINS THERAPEUTIC TAB (*BKC) 1 TABLET PO (08:14)
[2025-03-26] MEDS: ASCORBIC ACID 500 MG TABLET PO ×2 (08:14→22:19)
[2025-03-26] MEDS: ARTIFICIAL TEARS OPHTH SOLN 15 ML BOTTLE 1 DROP EACH EYE ×2 (08:18→17:40)
[2025-03-26] MEDS: MEROPENEM 1 GM/NS 100 ML 1 GM/100 ML BAG IVPB ×2 (08:20→21:47)
--- NOTE | 2025-03-26 11:59 | P.PNIM_ITS ---
Progress Note: A&P Assessment and Plan (1) Acute on chronic respiratory failure with hypoxia and hypercapnia: Code(s): J96.21 - Acute and chronic respiratory failure with hypoxia; J96.22 - Acute and chronic respiratory failure with hypercapnia Status: Acute Assessment and Plan: Patient presented with worsening shortness a breath chronically intermediate wears 2-3 L of supplemental oxygen due to chronic COPD, ABG did show acute on chronic hypoxia with hypercapnia. CXR showing bilateral pneumonia likely secondary pneumonia and COPD exacerbation. WBC bumped follow-up CXR with unchanged bilateral Pneumonia, MRSA negative * added Levaquin for broader coverage already on meropenem * ct chest reviewed: Fibrotic changes in the right upper lobe, lingula and both lower lobes. Superimpose pneumonitis cannot be excluded. * added Mucomyst * Legionella, mycoplasma and pneumococcal pending * DuoNebs q.6 * prednisone 40 mg daily will lwoer to 30 mg daily * azithromycin and meropenem to cover UTI as well * Guaifenesin * wean O2 to baseline * incentive spirometer while awake * blood cultures NGTD (2) Pneumonia: Qualifiers: Laterality: bilateral Lung location: lower lobe of lung Pneumonia type: due to unspecified organism Qualified Code(s): J18.9 - Pneumonia, unspecified organism Code(s): J18.9 - Pneumonia, unspecified organism Status: Acute Assessment and Plan: SEE ABOVE (3) COPD (chronic obstructive pulmonary disease): Qualifiers: COPD type: unspecified COPD Qualified Code(s): J44.9 - Chronic obstructive pulmonary disease, unspecified Code(s): J44.9 - Chronic obstructive pulmonary disease, unspecified Status: Chronic Assessment and Plan: patient with chronic COPD versus 2-3 L of home oxygen at intermediate * SEE ABOVE (4) Diastolic congestive heart failure: Code(s): I50.30 - Unspecified diastolic (congestive) heart failure Status: Acute Assessment and Plan: CXR showed possible underlying pulmonary edema as well. Patient's last echocardiogram on 08/2023 showed diastolic dysfunction with LVEF of 60-65% * resume patient's oral furosemide daily * monitor for fluid overload * daily weights (5) Hypomagnesemia: Code(s): E83.42 - Hypomagnesemia Status: Acute Assessment and Plan: magnesium was 1.3 POA given 2 g magnesium in the ED * Daily magnesium * replenish as needed keep greater than 2.0 (6) HTN (hypertension): Qualifiers: Hypertension type: unspecified Qualified Code(s): I10 - Essential (primary) hypertension Code(s): I10 - Essential (primary) hypertension Status: Chronic Assessment and Plan: * resume losartan and carvedilol * monitor per unit protocol (7) Anemia of chronic disease: Code(s): D63.8 - Anemia in other chronic diseases classified elsewhere Status: Acute Assessment and Plan: hemoglobin reviewed and stable no signs of active bleed * continued Eliquis * continued her ferrous sulfate * will trend H and H transfuse PRBCs <7.0 (8) Diarrhea: Code(s): R19.7 - Diarrhea, unspecified Status: Acute Assessment and Plan: * c-diff negative * continue Imodium * gentle IV fluids for mild dehydration completed (9) Osteoarthritis of bilateral glenohumeral joints: Code(s): M19.011 - Primary osteoarthritis, right shoulder; M19.012 - Primary osteoarthritis, left shoulder Status: Acute Assessment and Plan: * Continue methotrexate (10) Exocrine pancreatic insufficiency: Code(s): K86.81 - Exocrine pancreatic insufficiency Status: Chronic Assessment and Plan: * Continue Creon (11) UTI (urinary tract infection): Code(s): N39.0 - Urinary tract infection, site not specified Status: Acute Assessment and Plan: on patient's medication list it showed meropenem for ESBL cystitis IV patient also presented with a midline attempting to find out have any doses patient had received. UA suspicious for urinary tract infection * switched ceftriaxone to meropenem for ESBL coverage since unable to determine length of patient's therapy and was only receiving meropenem daily will continue to treat with IV meropenem b.i.d. while inpatient she can then transitioned to IV ertapenem daily upon discharge for a total 7 days of therapy 4 more doses * ua here is negative for uti Plan Code status: Full code per patient DVT prophylaxis: SCD/Eliquis Stress ulcer prophylaxis: Protonix 40 daily PT/OT notes: PT/OT rehab back at [facility] dispoition: [place] resident Subjective Date/time seen: 03/26/25 11:59 Interval history: no overnight events, feels better. labs reviewed. sob with exertion. still has cough with expectoration. Review of Systems Review of Systems: All systems reviewed & are unremarkable except as noted in HPI and below Exam Narrative: General: NAD HEENT: normocephalic, atraumatic. Respiratory: corase breath sounds bilaterally, no resp distress Cardiovascular: RRR Abdomen: Soft, round, Extremities: No cyanosis, clubbing, or edema present. Neuro: Alert and orientated x 1to 2 . Skin: Warm, dry, and intact, without rash, erythema, or lesion. Psych: pleasant, cooperative Objective Data Vital Signs Vital Signs: Vital Signs - 24 hr 03/25/25 12:00 03/25/25 14:00 03/25/25 14:08 Temperature 98.0 F Pulse Rate 84 73 75 Respiratory Rate 18 20 Blood Pressure 125/75 Pulse Oximetry 97 94 Oxygen Delivery Nasal Cannula Oxygen Flow Rate 3 03/25/25 14:08 03/25/25 14:18 03/25/25 16:00 Temperature Pulse Rate 75 76 74 Respiratory Rate 20 20 Blood Pressure Pulse Oximetry Oxygen Delivery Oxygen Flow Rate 03/25/25 19:32 03/25/25 19:32 03/25/25 19:41 Temperature Pulse Rate 67 71 Respiratory Rate 18 18 Blood Pressure Pulse Oximetry 97 Oxygen Delivery Nasal Cannula Oxygen Flow Rate 3 03/25/25 20:00 03/25/25 20:00 03/25/25 20:11 Temperature 98 F Pulse Rate 71 79 Respiratory Rate 18 Blood Pressure 120/89 Pulse Oximetry 94 94 Oxygen Delivery Nasal Cannula Oxygen Flow Rate 3 03/26/25 00:00 03/26/25 02:38 03/26/25 02:51 Temperature Pulse Rate 60 62 58 L Respiratory Rate 18 18 Blood Pressure Pulse Oximetry Oxygen Delivery Oxygen Flow Rate 03/26/25 04:00 03/26/25 04:55 03/26/25 07:40 Temperature 97.8 F Pulse Rate 59 L 69 Respiratory Rate 16 Blood Pressure 140/72 Pulse Oximetry 98 95 Oxygen Delivery Nasal Cannula Oxygen Flow Rate 3 03/26/25 07:40 03/26/25 07:57 03/26/25 08:05 Temperature Pulse Rate 65 68 65 Respiratory Rate 18 18 Blood Pressure Pulse Oximetry Oxygen Delivery Oxygen Flow Rate 03/26/25 08:12 03/26/25 08:13 Temperature Pulse Rate 65 Respiratory Rate Blood Pressure Pulse Oximetry 95 Oxygen Delivery Nasal Cannula Oxygen Flow Rate 3 Intake/Output Intake/Output: Intake & Output 03/23/25 03/24/25 03/25/25 03/26/25 23:59 23:59 23:59 23:59 Intake Total 1270 1070 1880 940 Output Total 1900 1100 2100 200 Balance -630 -30 -220 740 Meds/Results Medications: Active Medications Generic Name Dose Route Start Last Admin Trade Name Freq PRN Reason Stop Dose Admin Hydrocodone Bitart/Acetaminophen 1 tab 03/20/25 09:00 03/26/25 08:14 Hydrocodone/Acetaminophen (*Crx) 10-325 Mg Tablet PO 1 tab QID DOC Administration Acetylcysteine 200 mg 03/25/25 20:00 03/26/25 07:39 Acetylcysteine 20% Inhal Soln 800 Mg/4 Ml Vial INHALATION 200 mg Q6HRT DOC Administration Albuterol/Ipratropium 3 ml 03/19/25 14:00 03/26/25 07:39 Ipratropium 0.5 Mg/Albuterol Sulfate 2.5 Mg Ampul.Neb 3 Ml INHALATION 3 ml Q6HRT DOC Administration Albuterol/Ipratropium 3 ml 03/20/25 14:00 Ipratropium 0.5 Mg/Albuterol Sulfate 2.5 Mg Ampul.Neb 3 Ml INHALATION Q6HRT PRN Shortness Of Breath Lipase/Protease/Amylase 4 cap 03/20/25 09:00 03/26/25 08:14 Lipase/Amylase/Protease 12,000 Units Cap PO 4 cap TID DOC Administration Apixaban 2.5 mg 03/20/25 09:00 03/26/25 08:14 Apixaban 2.5 Mg Tablet PO 2.5 mg BID DOC Administration Artificial Tears 1 drop 03/20/25 17:00 03/26/25 08:18 Artificial Tears Ophth Soln 15 Ml Bottle EACH EYE 1 drop BID DOC Administration Ascorbic Acid 500 mg 03/20/25 11:05 03/26/25 08:14 Ascorbic Acid 500 Mg Tablet PO 500 mg Q12HRT DOC Administration Atorvastatin Calcium 40 mg 03/20/25 18:00 03/25/25 18:08 Atorvastatin 40 Mg Tablet PO 40 mg QPM DOC Administration Bisacodyl 10 mg 03/20/25 10:56 Bisacodyl 10 Mg Suppository RECTAL DAILY PRN constipation Budesonide 0.5 mg 03/24/25 20:00 03/26/25 07:39 Budesonide Respule Neb 0.5 Mg/2 Ml Amp INHALATION 0.5 mg Q12HRT DOC Administration Bupropion HCl 75 mg 03/20/25 09:00 03/26/25 08:14 Bupropion Hcl 75 Mg Tablet PO 75 mg DAILY DOC Administration Carvedilol 3.125 mg 03/20/25 09:00 03/26/25 08:13 Carvedilol 3.125 Mg Tablet PO 3.125 mg Q12HR DOC Administration Dextrose 12.5 gm 03/19/25 12:38 Dextrose 50% 25 Gm/50 Ml Syringe IV PUSH PRN PRN Hypoglycemia Protocol Diphenhydramine HCl 25 mg 03/20/25 21:21 03/26/25 08:14 Diphenhydramine Hcl Cap 25 Mg Capsule PO 25 mg Q6H PRN Administration Itching Furosemide 40 mg 03/20/25 09:00 03/26/25 08:14 Furosemide 40 Mg Tablet PO 40 mg QAM DOC Administration Glucagon 1 mg 03/19/25 12:38 Glucagon For Inj 1 Mg Vial IM PRN PRN Hypoglycemia Protocol Glucose 15 gm 03/19/25 12:38 Glucose Oral Gel 15 Gm Of Glucse In 37.5 Gm Tube PO PRN PRN Hypoglycemia Protocol Guaifenesin 1,200 mg 03/24/25 09:00 03/26/25 08:14 Guaifenesin 12 Hr 600 Mg Tabcr PO 1,200 mg Q12HR DOC Administration Dextrose 1,000 mls @ 100 mls/hr 03/19/25 12:38 Dextrose 5% 1,000 Ml IVPB PRN PRN Hypoglycemia Protocol Meropenem 1 gm in 100 mls @ 200 mls/hr 03/20/25 21:00 03/26/25 08:20 IVPB 200 mls/hr Q12HR DOC Administration Levofloxacin/Dextrose 750 mg in 150 mls @ 100 mls/hr 03/24/25 20:00 03/24/25 23:55 Levaquin 750 Mg/D5w 150 Ml IVPB Infused Q48H DOC Infusion Loperamide HCl 2 mg 03/23/25 14:46 03/24/25 09:10 Loperamide Hcl 2 Mg Capsule PO 2 mg Q6H PRN Administration Diarrhea Methotrexate 7.5 mg 03/21/25 09:00 03/21/25 09:07 Methotrexate 2.5 Mg Tab (*Chemo) PO 7.5 mg WEEKLY DOC Administration Multivitamins Therapeutic 1 tablet 03/21/25 09:00 03/26/25 08:14 Multivitamins Therapeutic Tab (*Bkc) PO 1 tablet DAILY DOC Administration Pantoprazole Sodium 40 mg 03/20/25 11:15 03/26/25 08:14 Pantoprazole 40 Mg Tablet PO 40 mg QAM DOC Administration Prednisone 40 mg 03/21/25 08:00 03/26/25 08:14 Prednisone 20 Mg Tablet PO 40 mg DAILY@0800 DOC Administration Pregabalin 150 mg 03/20/25 09:00 03/26/25 08:14 Pregabalin (*Crx) 75 Mg Capsule PO 150 mg BID DOC Administration Senna 8.6 mg 03/20/25 17:00 03/23/25 08:49 Sennosides 8.6 Mg Tablet PO 8.6 mg BID DOC Administration Sodium Chloride 10 ml 03/20/25 14:00 03/26/25 05:45 Saline Lock Flush IV PUSH 10 ml Q8HR DOC Administration Sodium Chloride 10 ml 03/20/25 13:40 Saline Lock Flush IV PUSH PRN PRN Flush Sodium Chloride 20 ml 03/20/25 13:40 03/24/25 05:47 Saline Lock Flush IV PUSH 20 ml PRN PRN Administration after blood draws Trazodone HCl 50 mg 03/20/25 21:00 03/25/25 21:04 Trazodone Hcl 50 Mg Tablet PO 50 mg HS DOC Administration Umeclidinium/Vilanterol 1 puff 03/20/25 08:00 03/26/25 07:43 Umeclidinium/Vilanterol 62.5-25 Mcg Ellipta INHALATION 1 puff DAILYRT DOC Administration Radiology Results: ITS Impressions Chest X-Ray 03/24/25 09:17 IMPRESSION: Bilateral pneumonia unchanged from previous examination. Chest CT 03/25/25 15:08 IMPRESSION: 1. Fibrotic changes in the right upper lobe, lingula and both lower lobes. Superimpose pneumonitis cannot be excluded. 2. Prominent pulmonary arteries which may indicate pulmonary hypertension. 3. Right adrenal adenoma unchanged. Labs Labs: Laboratory Results - last 24 hr 03/26/25 05:47 WBC 18.3 H RBC 3.47 L Hgb 11.0 L Hct 34.5 L MCV 99.4 MCH 31.7 MCHC 31.9 L RDW 12.3 Plt Count 326 MPV 11.8 H Sodium 135 L Potassium 4.3 Chloride 92 L Carbon Dioxide 35 H Anion Gap 8 BUN 41 H Creatinine 0.90 Estim Creat Clear Calc 41 Estimated GFR 60 Glucose 112 H Calcium 9.0 Magnesium 2.2 Total Bilirubin 0.3 AST 26 ALT 27 Alkaline Phosphatase 40 Total Protein 7.0 Albumin 4.0
--- NOTE | 2025-03-26 13:30 | P.CDI_ITS ---
CDI Query Clarification Request Please specify acuity of heart failure if known. * Acute * Chronic * Acute on Chronic * Unknown The medical chart reflects the following: (4) Diastolic congestive heart failure: Code(s): I50.30 - Unspecified diastolic (congestive) heart failure Status: Acute Assessment and Plan: CXR showed possible underlying pulmonary edema as well. Patient's last echocardiogram on 08/2023 showed diastolic dysfunction with LVEF of 60-65% * resume patient's oral furosemide daily * monitor for fluid overload * daily weights 03/19 BNP 267 <Veronika Pinon RN - Last Filed: 03/26/25 13:33> Provider Comments Acute on chronic diastolic congestive heart failure <Óscar Lisa MD - Last Filed: 04/01/25 14:49>
[2025-03-26] MEDS: ATORVASTATIN 40 MG TABLET PO (17:40)
[2025-03-27] VITALS (15 sets, daily range): BP systolic 101–123; BP diastolic 57–67; PULSE 60–84; RESP 16–18; TEMP 36.1–37; O2SAT 95–97
[2025-03-27] MEDS: diphenhydrAMINE HCl CAP 25 MG CAPSULE PO ×2 (00:53→23:21)
[2025-03-27] MEDS: IPRATROPIUM 0.5 MG/ALBUTEROL SULFATE 2.5 MG AMPUL.NEB 3 ML INHALATION ×2 (02:32→08:29)
[2025-03-27] MEDS: ACETYLCYSTEINE 20% INHAL SOLN 800 MG/4 ML VIAL 200 MG INHALATION ×2 (02:32→08:28)
[2025-03-27] MEDS: ACETAMINOPHEN 325 MG TABLET 650 MG PO (04:59)
[2025-03-27 06:20] LABS: Hematocrit 33.3 % (37.0-47.0); Hemoglobin 10.3 g/dL (12.0-15.0); Mean Corpuscular HGB Conc 30.9 g/dl (32-36); Mean Corpuscular Hemoglobin 31.3 pg (26-34); Mean Corpuscular Volume 101.2 fl (80-100); Platelet Count Result 317 k/mm3 (150-375); Red Blood Count 3.29 M/mm3 (4.2-5.4); White Blood Count 21.3 K/mm3 (4.5-10.0)
[2025-03-27] MEDS: SALINE LOCK FLUSH 10 ML IV PUSH ×3 (06:20→21:43)
[2025-03-27 06:40] LABS: Alanine Aminotransferase 26 U/L (6-35); Albumin Level 3.9 g/dL (3.5-5.1); Alkaline Phosphatase 36 U/L (38-126); Anion Gap 8 mmol/L (4-12); Aspartate Amino Transferase 26 U/L (14-36); Bilirubin,Total 0.4 mg/dL (0.2-1.3); Blood Urea Nitrogen 47 mg/dL (7-17); Calcium 8.7 mg/dL (8.4-10.2); Carbon Dioxide 37 mmol/L (22-30); Chloride 92 mmol/L (98-107); Estimated CRCL calculation 42 ml/min; Estimated Glomerular Filt Rate > 60; Glucose 97 mg/dL (65-110); Magnesium 2.1 mg/dL (1.6-2.3); Potassium 3.9 mmol/L (3.4-5.0); Sodium 137 mmol/L (137-145); Total Protein 6.8 g/dL (6.3-8.2)
[2025-03-27] MEDS: BUDESONIDE RESPULE NEB 0.5 MG/2 ML AMP INHALATION ×2 (08:28→22:05)
[2025-03-27] MEDS: ARTIFICIAL TEARS OPHTH SOLN 15 ML BOTTLE 1 DROP EACH EYE ×2 (08:30→17:41)
[2025-03-27] MEDS: ASCORBIC ACID 500 MG TABLET PO ×2 (08:30→20:04)
[2025-03-27] MEDS: guaiFENesin 12 HR 600 MG TABCR 1200 MG PO ×2 (08:30→20:04)
[2025-03-27] MEDS: HYDROcodone/acetaminophen (*CRX) 10-325 MG TABLET 1 TAB PO ×4 (08:30→20:04)
[2025-03-27] MEDS: UMECLIDINIUM/VILANTEROL 62.5-25 MCG ELLIPTA 1 PUFF INHALATION (08:30)
[2025-03-27] MEDS: LIPASE/AMYLASE/PROTEASE 12,000 UNITS CAP 4 CAP PO ×3 (08:31→17:42)
[2025-03-27] MEDS: FUROSEMIDE 40 MG TABLET PO (08:31)
[2025-03-27] MEDS: APIXABAN 2.5 MG TABLET PO ×2 (08:31→17:41)
[2025-03-27] MEDS: PANTOPRAZOLE 40 MG TABLET PO (08:31)
[2025-03-27] MEDS: PREGABALIN (*CRX) 75 MG CAPSULE 150 MG PO ×2 (08:31→17:42)
[2025-03-27] MEDS: MULTIVITAMINS THERAPEUTIC TAB (*BKC) 1 TABLET PO (08:31)
[2025-03-27] MEDS: MEROPENEM 1 GM/NS 100 ML 1 GM/100 ML BAG IVPB (08:34)
--- NOTE | 2025-03-27 09:28 | P.PNIM_ITS ---
Progress Note: A&P Assessment and Plan (1) Acute on chronic respiratory failure with hypoxia and hypercapnia: Code(s): J96.21 - Acute and chronic respiratory failure with hypoxia; J96.22 - Acute and chronic respiratory failure with hypercapnia Status: Acute Assessment and Plan: Patient presented with worsening SOB. She has chronic respiratory failure on 2-3 L O2 due to chronic COPD ABG on admission (03/19): 7.42/54/71 on 2L which is chronic hypoxia with hypercapnia. CXR (03/19) showing bilateral pneumonia SOB likely secondary pneumonia and COPD exacerbation. Rocephin given 03/19 and 03/20 but changed to Meropenem on 03/20. Levaquin added 03/24. Completed 5 days of Azithromycin. BCx 03/19 - Negative. MRSA negative. Legionella, mycoplasma and pneumococcal pending CT Chest (03/25) without contrast showing fibrotic changes in RUL, lingula and bilateral lower lobes. Superimposed pneumonitis cannot be excluded. Prominent pulmonary arteries noted Echo Aug 2023: EF 60-65%, Grade I diastolic dysfunction, mild RV enlargement and hypokinesis, mild valve disease and mild pulm HTN (46mmHg) WBC normal on admission but climbed to 19K (but was on Solu-Medrol). Switched to Prednisone and WBC improved initially but now climbing since 03/24. WBC now at 21K despite Levaquin and Meropenem. Leukocytosis could be related to steroids since currently on broad spectrum. She is immunosuppressed so consider atypical bacteria. Also has not been covered for MRSA. Currently on Mucinex, Anoro, Mucomyst, Pulmicort respules and Duonebs. Incentive spirometer while awake Weaned to baseline O2. Will order CPT and flutter valve. Change Duonebs to prn and stop Mucomyst Stop Meropenem since 7 days. Wean O2 to keep SpO2 92-95%. Okay to stop tele. Add PT/OT. Hold MTX since treating PNA. Will stop steroids since not wheezing and at baseline O2 and with PNA. Add doxycycline. Check CBC with diff tomorow (2) Pneumonia: Qualifiers: Laterality: bilateral Lung location: lower lobe of lung Pneumonia type: due to unspecified organism Qualified Code(s): J18.9 - Pneumonia, unspecified organism Code(s): J18.9 - Pneumonia, unspecified organism Status: Acute Assessment and Plan: As above (3) COPD (chronic obstructive pulmonary disease): Qualifiers: COPD type: unspecified COPD Qualified Code(s): J44.9 - Chronic obstructive pulmonary disease, unspecified Code(s): J44.9 - Chronic obstructive pulmonary disease, unspecified Status: Chronic Assessment and Plan: Patient with chronic COPD with chronic resp failure on 2-3 L of home oxygen at senior care As above (4) Diastolic congestive heart failure: Code(s): I50.30 - Unspecified diastolic (congestive) heart failure Status: Acute Assessment and Plan: CXR showed possible underlying pulmonary edema as well. Echocardiogram on 08/2023 as above. BNP 267 on admission. No clinical evidence of fluid overload. Patient with chronic diastolic CHF Continue patient's oral furosemide daily Monitor fluid status and daily weights (5) Hypomagnesemia: Code(s): E83.42 - Hypomagnesemia Status: Acute Assessment and Plan: Magnesium was 1.3 on admission and replaced. Mag normal now. Monitor periodically. (6) HTN (hypertension): Qualifiers: Hypertension type: unspecified Qualified Code(s): I10 - Essential (primary) hypertension Code(s): I10 - Essential (primary) hypertension Status: Chronic Assessment and Plan: Patient's blood pressure was reviewed on 03/27 Blood pressure remains well controlled. Will continue current medications. (7) Anemia of chronic disease: Code(s): D63.8 - Anemia in other chronic diseases classified elsewhere Status: Acute Assessment and Plan: Patient with chronic anemia. Hemoglobin has been stable here in the 10-11 range. Continue to monitor. (8) Diarrhea: Code(s): R19.7 - Diarrhea, unspecified Status: Acute Assessment and Plan: Patient with loose stools requiring Imodium. C diff PCR was negative. She received 1 dose on 03/20 but nothing since. Will stop Imodium in case diarrhea returns. Monitor for recurrent diarrhea since she has a history of C diff. (9) Osteoarthritis of bilateral glenohumeral joints: Code(s): M19.011 - Primary osteoarthritis, right shoulder; M19.012 - Primary osteoarthritis, left shoulder Status: Acute Assessment and Plan: Hold MTX until active infection has been treated appropriately. (10) Exocrine pancreatic insufficiency: Code(s): K86.81 - Exocrine pancreatic insufficiency Status: Chronic Assessment and Plan: Stable. Continue Creon (11) UTI (urinary tract infection): Code(s): N39.0 - Urinary tract infection, site not specified Status: Acute Assessment and Plan: Patient was on meropenem for ESBL cystitis on admission. Patient also presented with a midline UA here not suspicious for urinary tract infection. Abx switched from ceftriaxone to meropenem for ESBL coverage since unable to determine length of patient's therapy She has completed 7 days of meropenem so will stop. Plan Code status: Full code per patient DVT prophylaxis: SCD/Eliquis Disposition: Start PT/OT; NH resident Subjective Date/time seen: 03/27/25 09:28 Interval history: 80yo female with chronic respiratory failure on 2-3L O2, COPD, dCHF and HTN here for SOB. Assuming care. Chart reviewed. Patient still has chest congestion that she describes as a ?rattle? in her chest. Cough is productive of clear sputum. No chest pain. No hemoptysis. She has been up to the chair but not walking very much. She denies any odynophagia or dysphagia. Exam Narrative: AF 97.8 121/67 76 18 97% 3L Gen - NARD sitting up in bed Chest - coarse breath sounds diffusely with bibasilar inspiratory crackles. nml RR CV - RRR S1/S2. Tele showing PVCs Abd - Soft, NT/ND, Positive BS Ext - No pedal edema Neuro - Alert and appropriate but forgetful Psych - Nml mood and affect Skin - Warm and dry. Small, shallow ulcer just distal to left anterior knee with clean base. Objective Data Vital Signs Vital Signs: Vital Signs - 24 hr 03/26/25 12:05 03/26/25 13:37 03/26/25 13:48 Temperature Pulse Rate 67 93 88 Respiratory Rate 18 18 Blood Pressure Pulse Oximetry Oxygen Delivery Oxygen Flow Rate 03/26/25 14:00 03/26/25 16:05 03/26/25 20:00 Temperature 98.1 F Pulse Rate 72 71 Respiratory Rate 16 Blood Pressure 116/58 L Pulse Oximetry 98 98 Oxygen Delivery Nasal Cannula Oxygen Flow Rate 3 03/26/25 20:00 03/26/25 21:06 03/26/25 21:22 Temperature Pulse Rate 80 80 88 Respiratory Rate 18 18 Blood Pressure Pulse Oximetry Oxygen Delivery Oxygen Flow Rate 03/26/25 21:23 03/26/25 21:25 03/27/25 00:00 Temperature 98 F Pulse Rate 85 60 Respiratory Rate 18 Blood Pressure 101/54 L Pulse Oximetry 95 97 Oxygen Delivery Nasal Cannula Oxygen Flow Rate 3 03/27/25 02:32 03/27/25 02:45 03/27/25 04:00 Temperature Pulse Rate 77 82 68 Respiratory Rate 18 18 Blood Pressure Pulse Oximetry Oxygen Delivery Oxygen Flow Rate 03/27/25 04:36 03/27/25 08:30 03/27/25 08:30 Temperature 97.8 F Pulse Rate 67 84 Respiratory Rate 18 18 Blood Pressure 121/67 Pulse Oximetry 97 97 Oxygen Delivery Nasal Cannula Oxygen Flow Rate 3 03/27/25 08:31 03/27/25 08:50 Temperature Pulse Rate 67 76 Respiratory Rate 18 Blood Pressure Pulse Oximetry Oxygen Delivery Oxygen Flow Rate Intake/Output Intake/Output: Intake & Output 03/24/25 03/25/25 03/26/25 03/27/25 23:59 23:59 23:59 23:59 Intake Total 1070 1880 1920 400 Output Total 1100 2100 1200 850 Balance -30 -220 720 -450 Meds/Results Medications: Active Medications Generic Name Dose Route Start Last Admin Trade Name Freq PRN Reason Stop Dose Admin Hydrocodone Bitart/Acetaminophen 1 tab 03/20/25 09:00 03/27/25 08:30 Hydrocodone/Acetaminophen (*Crx) 10-325 Mg Tablet PO 1 tab QID DOC Administration Acetylcysteine 200 mg 03/25/25 20:00 03/27/25 08:28 Acetylcysteine 20% Inhal Soln 800 Mg/4 Ml Vial INHALATION 200 mg Q6HRT DOC Administration Albuterol/Ipratropium 3 ml 03/19/25 14:00 03/27/25 08:29 Ipratropium 0.5 Mg/Albuterol Sulfate 2.5 Mg Ampul.Neb 3 Ml INHALATION 3 ml Q6HRT DOC Administration Albuterol/Ipratropium 3 ml 03/20/25 14:00 Ipratropium 0.5 Mg/Albuterol Sulfate 2.5 Mg Ampul.Neb 3 Ml INHALATION Q6HRT PRN Shortness Of Breath Lipase/Protease/Amylase 4 cap 03/20/25 09:00 03/27/25 08:31 Lipase/Amylase/Protease 12,000 Units Cap PO 4 cap TID DOC Administration Apixaban 2.5 mg 03/20/25 09:00 03/27/25 08:31 Apixaban 2.5 Mg Tablet PO 2.5 mg BID DOC Administration Artificial Tears 1 drop 03/20/25 17:00 03/27/25 08:30 Artificial Tears Ophth Soln 15 Ml Bottle EACH EYE 1 drop BID DOC Administration Ascorbic Acid 500 mg 03/20/25 11:05 03/27/25 08:30 Ascorbic Acid 500 Mg Tablet PO 500 mg Q12HRT DOC Administration Atorvastatin Calcium 40 mg 03/20/25 18:00 03/26/25 17:40 Atorvastatin 40 Mg Tablet PO 40 mg QPM DOC Administration Bisacodyl 10 mg 03/20/25 10:56 Bisacodyl 10 Mg Suppository RECTAL DAILY PRN constipation Budesonide 0.5 mg 03/24/25 20:00 03/27/25 08:28 Budesonide Respule Neb 0.5 Mg/2 Ml Amp INHALATION 0.5 mg Q12HRT DOC Administration Bupropion HCl 75 mg 03/20/25 09:00 03/27/25 08:31 Bupropion Hcl 75 Mg Tablet PO 75 mg DAILY DOC Administration Carvedilol 3.125 mg 03/20/25 09:00 03/27/25 08:31 Carvedilol 3.125 Mg Tablet PO 3.125 mg Q12HR DOC Administration Dextrose 12.5 gm 03/19/25 12:38 Dextrose 50% 25 Gm/50 Ml Syringe IV PUSH PRN PRN Hypoglycemia Protocol Diphenhydramine HCl 25 mg 03/20/25 21:21 03/27/25 00:53 Diphenhydramine Hcl Cap 25 Mg Capsule PO 25 mg Q6H PRN Administration Itching Furosemide 40 mg 03/20/25 09:00 03/27/25 08:31 Furosemide 40 Mg Tablet PO 40 mg QAM DOC Administration Glucagon 1 mg 03/19/25 12:38 Glucagon For Inj 1 Mg Vial IM PRN PRN Hypoglycemia Protocol Glucose 15 gm 03/19/25 12:38 Glucose Oral Gel 15 Gm Of Glucse In 37.5 Gm Tube PO PRN PRN Hypoglycemia Protocol Guaifenesin 1,200 mg 03/24/25 09:00 03/27/25 08:30 Guaifenesin 12 Hr 600 Mg Tabcr PO 1,200 mg Q12HR DOC Administration Dextrose 1,000 mls @ 100 mls/hr 03/19/25 12:38 Dextrose 5% 1,000 Ml IVPB PRN PRN Hypoglycemia Protocol Meropenem 1 gm in 100 mls @ 200 mls/hr 03/20/25 21:00 03/27/25 08:34 IVPB 03/27/25 09:29 200 mls/hr Q12HR DOC Administration Levofloxacin 750 mg 03/26/25 21:00 03/26/25 22:19 Levofloxacin 750 Mg Tablet PO 750 mg Q48H DOC Administration Loperamide HCl 2 mg 03/23/25 14:46 03/24/25 09:10 Loperamide Hcl 2 Mg Capsule PO 2 mg Q6H PRN Administration Diarrhea Methotrexate 7.5 mg 03/21/25 09:00 03/21/25 09:07 Methotrexate 2.5 Mg Tab (*Chemo) PO 7.5 mg WEEKLY DOC Administration Multivitamins Therapeutic 1 tablet 03/21/25 09:00 03/27/25 08:31 Multivitamins Therapeutic Tab (*Bkc) PO 1 tablet DAILY DOC Administration Pantoprazole Sodium 40 mg 03/20/25 11:15 03/27/25 08:31 Pantoprazole 40 Mg Tablet PO 40 mg QAM DOC Administration Prednisone 30 mg 03/27/25 08:00 03/27/25 08:31 Prednisone 10 Mg Tablet PO 30 mg DAILY@0800 DOC Administration Pregabalin 150 mg 03/20/25 09:00 03/27/25 08:31 Pregabalin (*Crx) 75 Mg Capsule PO 150 mg BID DOC Administration Senna 8.6 mg 03/20/25 17:00 03/23/25 08:49 Sennosides 8.6 Mg Tablet PO 8.6 mg BID DOC Administration Sodium Chloride 10 ml 03/20/25 14:00 03/27/25 06:20 Saline Lock Flush IV PUSH 10 ml Q8HR DOC Administration Sodium Chloride 10 ml 03/20/25 13:40 Saline Lock Flush IV PUSH PRN PRN Flush Sodium Chloride 20 ml 03/20/25 13:40 03/24/25 05:47 Saline Lock Flush IV PUSH 20 ml PRN PRN Administration after blood draws Trazodone HCl 50 mg 03/20/25 21:00 03/26/25 22:19 Trazodone Hcl 50 Mg Tablet PO 50 mg HS DOC Administration Umeclidinium/Vilanterol 1 puff 03/20/25 08:00 03/27/25 08:30 Umeclidinium/Vilanterol 62.5-25 Mcg Ellipta INHALATION 1 puff DAILYRT DOC Administration Radiology Results: ITS Impressions Chest X-Ray 03/24/25 09:17 IMPRESSION: Bilateral pneumonia unchanged from previous examination. Chest CT 03/25/25 15:08 IMPRESSION: 1. Fibrotic changes in the right upper lobe, lingula and both lower lobes. Superimpose pneumonitis cannot be excluded. 2. Prominent pulmonary arteries which may indicate pulmonary hypertension. 3. Right adrenal adenoma unchanged. Labs Labs: Laboratory Results - last 24 hr 03/27/25 05:31 WBC 21.3 H RBC 3.29 L Hgb 10.3 L Hct 33.3 L MCV 101.2 H MCH 31.3 MCHC 30.9 L RDW 12.6 Plt Count 317 MPV 12.2 H Sodium 137 Potassium 3.9 Chloride 92 L Carbon Dioxide 37 H Anion Gap 8 BUN 47 H Creatinine 0.88 Estim Creat Clear Calc 42 Estimated GFR > 60 Glucose 97 Calcium 8.7 Magnesium 2.1 Total Bilirubin 0.4 AST 26 ALT 26 Alkaline Phosphatase 36 L Total Protein 6.8 Albumin 3.9
--- NOTE | 2025-03-27 09:48 | PCNWS ---
Weekly nutritional screen. Patient is tolerating current Heart healthy diet with adequate intake. No weight loss reported. No nutritional needs at this time.
[2025-03-27] MEDS: ONDANSETRON HCL ODT 4 MG TABLET PO (12:00)
[2025-03-27] MEDS: DOXYCYCLINE HYCLATE 100 MG TABLET PO ×2 (12:01→20:04)
[2025-03-27] MEDS: ATORVASTATIN 40 MG TABLET PO (17:42)
[2025-03-28] VITALS (10 sets, daily range): BP systolic 104–122; BP diastolic 56–65; PULSE 65–80; RESP 14–20; TEMP 36.1–36.9; O2SAT 92–98
[2025-03-28] MEDS: SALINE LOCK FLUSH 10 ML IV PUSH ×3 (06:32→23:16)
[2025-03-28] MEDS: PANTOPRAZOLE 40 MG TABLET PO (08:23)
[2025-03-28] MEDS: FUROSEMIDE 40 MG TABLET PO (08:23)
[2025-03-28] MEDS: ASCORBIC ACID 500 MG TABLET PO ×2 (08:23→21:09)
[2025-03-28] MEDS: PREGABALIN (*CRX) 75 MG CAPSULE 150 MG PO ×2 (08:23→17:17)
[2025-03-28] MEDS: APIXABAN 2.5 MG TABLET PO ×2 (08:23→17:17)
[2025-03-28] MEDS: DOXYCYCLINE HYCLATE 100 MG TABLET PO ×2 (08:24→21:09)
[2025-03-28] MEDS: MULTIVITAMINS THERAPEUTIC TAB (*BKC) 1 TABLET PO (08:24)
[2025-03-28] MEDS: LIPASE/AMYLASE/PROTEASE 12,000 UNITS CAP 4 CAP PO ×3 (08:25→17:17)
[2025-03-28] MEDS: guaiFENesin 12 HR 600 MG TABCR 1200 MG PO ×2 (08:25→21:09)
[2025-03-28] MEDS: HYDROcodone/acetaminophen (*CRX) 10-325 MG TABLET 1 TAB PO ×4 (08:25→21:09)
[2025-03-28] MEDS: IPRATROPIUM 0.5 MG/ALBUTEROL SULFATE 2.5 MG AMPUL.NEB 3 ML INHALATION (08:39)
[2025-03-28] MEDS: BUDESONIDE RESPULE NEB 0.5 MG/2 ML AMP INHALATION ×2 (08:39→22:10)
[2025-03-28 09:44] LABS: Hematocrit 32.8 % (37.0-47.0); Hemoglobin 10.2 g/dL (12.0-15.0); Immature Granulocyte Percent A 2.5 % (0-0.5); Lymphocytes Absolute Auto 4.17 K/mm3 (0.9-3.2); Mean Corpuscular HGB Conc 31.1 g/dl (32-36); Mean Corpuscular Hemoglobin 31.6 pg (26-34); Mean Corpuscular Volume 101.5 fl (80-100); Nucleated Red Blood Cells Absolute Auto 0.000 K/mm3 (0.0-0.012); Nucleated Red Blood Cells Perc 0.0 % (0.0-0.2); Platelet Count Result 325 k/mm3 (150-375); Red Blood Count 3.23 M/mm3 (4.2-5.4); White Blood Count 19.6 K/mm3 (4.5-10.0)
[2025-03-28] MEDS: UMECLIDINIUM/VILANTEROL 62.5-25 MCG ELLIPTA 1 PUFF INHALATION (09:44)
[2025-03-28 10:13] LABS: Alanine Aminotransferase 25 U/L (6-35); Albumin Level 3.7 g/dL (3.5-5.1); Alkaline Phosphatase 38 U/L (38-126); Anion Gap 8 mmol/L (4-12); Aspartate Amino Transferase 31 U/L (14-36); Bilirubin,Total 0.3 mg/dL (0.2-1.3); Blood Urea Nitrogen 37 mg/dL (7-17); Calcium 8.4 mg/dL (8.4-10.2); Carbon Dioxide 32 mmol/L (22-30); Chloride 95 mmol/L (98-107); Estimated CRCL calculation 46 ml/min; Estimated Glomerular Filt Rate > 60; Glucose 133 mg/dL (65-110); Magnesium 1.9 mg/dL (1.6-2.3); Potassium 3.7 mmol/L (3.4-5.0); Sodium 135 mmol/L (137-145); Total Protein 6.6 g/dL (6.3-8.2)
[2025-03-28] MEDS: ONDANSETRON HCL ODT 4 MG TABLET PO ×2 (10:32→17:17)
[2025-03-28] MEDS: ARTIFICIAL TEARS OPHTH SOLN 15 ML BOTTLE 1 DROP EACH EYE ×2 (12:30→17:17)
--- NOTE | 2025-03-28 12:35 | PM.IMPN ---
Progress Note: A&P Assessment and Plan (1) Acute on chronic respiratory failure with hypoxia and hypercapnia: Code(s): J96.21 - Acute and chronic respiratory failure with hypoxia; J96.22 - Acute and chronic respiratory failure with hypercapnia Status: Acute Assessment and Plan: Patient presented with worsening SOB. She has chronic respiratory failure on 2-3 L O2 due to chronic COPD ABG on admission (03/19): 7.42/54/71 on 2L which is chronic hypoxia with hypercapnia. CXR (03/19) showing bilateral pneumonia SOB likely secondary pneumonia and COPD exacerbation. Rocephin given 03/19 and 03/20 but changed to Meropenem on 03/20. Levaquin added 03/24. Completed 5 days of Azithromycin. BCx 03/19 - Negative. MRSA negative. Legionella, mycoplasma and pneumococcal pending CT Chest (03/25) without contrast showing fibrotic changes in RUL, lingula and bilateral lower lobes. Superimposed pneumonitis cannot be excluded. Prominent pulmonary arteries noted Echo Aug 2023: EF 60-65%, Grade I diastolic dysfunction, mild RV enlargement and hypokinesis, mild valve disease and mild pulm HTN (46mmHg) WBC normal on admission but climbed to 19K (but was on Solu-Medrol). Switched to Prednisone and WBC improved initially but now climbing since 03/24. WBC now at 21K despite Levaquin and Meropenem. Leukocytosis could be related to steroids since currently on broad spectrum. She is immunosuppressed so consider atypical bacteria. Also has not been covered for MRSA. Currently on Mucinex, Anoro, Mucomyst, Pulmicort respules and Duonebs. Incentive spirometer while awake Weaned to baseline O2. Will order CPT and flutter valve. Change Duonebs to prn and stop Mucomyst Stop Meropenem since 7 days. Wean O2 to keep SpO2 92-95%. Okay to stop tele. Add PT/OT. Hold MTX since treating PNA. Will stop steroids since not wheezing and at baseline O2 and with PNA. Add doxycycline. 03/28 Patient still has cough and scant phlegm, it dyspnea is improving Continue current treatment, Leukocytosis persists, , patient is afebrile overnight Continue current treatment Follow-up procalcitonin level (2) Pneumonia: Qualifiers: Laterality: bilateral Lung location: lower lobe of lung Pneumonia type: due to unspecified organism Qualified Code(s): J18.9 - Pneumonia, unspecified organism Code(s): J18.9 - Pneumonia, unspecified organism Status: Acute Assessment and Plan: As above (3) COPD (chronic obstructive pulmonary disease): Qualifiers: COPD type: unspecified COPD Qualified Code(s): J44.9 - Chronic obstructive pulmonary disease, unspecified Code(s): J44.9 - Chronic obstructive pulmonary disease, unspecified Status: Chronic Assessment and Plan: Patient with chronic COPD with chronic resp failure on 2-3 L of home oxygen at residential As above (4) Diastolic congestive heart failure: Code(s): I50.30 - Unspecified diastolic (congestive) heart failure Status: Acute Assessment and Plan: CXR showed possible underlying pulmonary edema as well. Echocardiogram on 08/2023 as above. BNP 267 on admission. No clinical evidence of fluid overload. Patient with chronic diastolic CHF Continue patient's oral furosemide daily Monitor fluid status and daily weights (5) Hypomagnesemia: Code(s): E83.42 - Hypomagnesemia Status: Acute Assessment and Plan: Magnesium was 1.3 on admission and replaced. Mag normal now. Monitor periodically. (6) HTN (hypertension): Qualifiers: Hypertension type: unspecified Qualified Code(s): I10 - Essential (primary) hypertension Code(s): I10 - Essential (primary) hypertension Status: Chronic Assessment and Plan: Patient's blood pressure was reviewed on 03/27 Blood pressure remains well controlled. Will continue current medications. (7) Anemia of chronic disease: Code(s): D63.8 - Anemia in other chronic diseases classified elsewhere Status: Acute Assessment and Plan: Patient with chronic anemia. Hemoglobin has been stable here in the 10-11 range. Continue to monitor. (8) Diarrhea: Code(s): R19.7 - Diarrhea, unspecified Status: Acute Assessment and Plan: Patient with loose stools requiring Imodium. C diff PCR was negative. She received 1 dose on 03/20 but nothing since. Will stop Imodium in case diarrhea returns. Monitor for recurrent diarrhea since she has a history of C diff. (9) Osteoarthritis of bilateral glenohumeral joints: Code(s): M19.011 - Primary osteoarthritis, right shoulder; M19.012 - Primary osteoarthritis, left shoulder Status: Acute Assessment and Plan: Hold MTX until active infection has been treated appropriately. (10) Exocrine pancreatic insufficiency: Code(s): K86.81 - Exocrine pancreatic insufficiency Status: Chronic Assessment and Plan: Stable. Continue Creon (11) UTI (urinary tract infection): Code(s): N39.0 - Urinary tract infection, site not specified Status: Acute Assessment and Plan: Patient was on meropenem for ESBL cystitis on admission. Patient also presented with a midline UA here not suspicious for urinary tract infection. Abx switched from ceftriaxone to meropenem for ESBL coverage since unable to determine length of patient's therapy She has completed 7 days of meropenem so will stop. Plan Code status: Full code per patient DVT prophylaxis: SCD/Eliquis Disposition: Start PT/OT; NH resident Subjective Date/time seen: 03/28/25 12:35 Interval history: I saw exam patient today, patient feels better, still has shortness breath with mild exertion. Patient has cough with scant phlegm. Patient afebrile, blood pressure stable, patient is on 2 L oxygen Exam Narrative: GENERAL: Pleasant, in no acute distress. Well-nourished. - EYES: EOMI. Anicteric. - HENT: Moist mucous membranes. - LUNGS: Decreased air entry bilateral, scattered wheezing, rhonchi, or rales. - CARDIOVASCULAR: Regular rate and rhythm. No murmur. No JVD. - ABDOMEN: Soft, non-tender and non-distended. No palpable masses. - EXTREMITIES: No edema. Peripheral pulses 2+. Non-tender. - NEUROLOGIC: No focal neurological deficits. CN II-XII grossly intact. - PSYCHIATRIC: Awake, Alert and oriented x 3. Appropriate mood and affect. - SKIN: No rashes or lesions. Warm. - LYMPH: No cervical lymphadenopathy. Objective Data Vital Signs Vital Signs: Vital Signs - 24 hr 03/27/25 14:00 03/27/25 14:35 03/27/25 15:06 Temperature 96.9 F L Pulse Rate 72 Respiratory Rate 16 Blood Pressure 106/57 L Pulse Oximetry 96 96 95 Oxygen Delivery Nasal Cannula Nasal Cannula Oxygen Flow Rate 3 2 03/27/25 20:04 03/27/25 20:26 03/27/25 22:07 Temperature 98.6 F Pulse Rate 76 68 Respiratory Rate 18 Blood Pressure 101/59 L Pulse Oximetry 97 96 Oxygen Delivery Nasal Cannula Oxygen Flow Rate 2 03/27/25 22:07 03/27/25 23:58 03/28/25 05:55 Temperature 97.6 F 98.4 F Pulse Rate 70 63 66 Respiratory Rate 18 16 16 Blood Pressure 123/62 122/65 Pulse Oximetry 95 97 Oxygen Delivery Oxygen Flow Rate 03/28/25 08:24 03/28/25 08:40 03/28/25 08:40 Temperature Pulse Rate 80 71 Respiratory Rate 20 Blood Pressure Pulse Oximetry 92 Oxygen Delivery Nasal Cannula Oxygen Flow Rate 2 03/28/25 08:54 03/28/25 09:18 03/28/25 11:12 Temperature Pulse Rate 72 Respiratory Rate 20 Blood Pressure Pulse Oximetry Oxygen Delivery Nasal Cannula Nasal Cannula Oxygen Flow Rate 2 2 Intake/Output Intake/Output: Intake & Output 03/25/25 03/26/25 03/27/25 03/28/25 23:59 23:59 23:59 23:59 Intake Total 1880 1920 3001 1387 Output Total 2100 1200 1800 600 Balance -813 773 8673 787 Meds/Results Medications: Active Medications Generic Name Dose Route Start Last Admin Trade Name Freq PRN Reason Stop Dose Admin Hydrocodone Bitart/Acetaminophen 1 tab 03/20/25 09:00 03/28/25 08:25 Hydrocodone/Acetaminophen (*Crx) 10-325 Mg Tablet PO 1 tab QID DOC Administration Albuterol/Ipratropium 3 ml 03/20/25 14:00 03/28/25 08:39 Ipratropium 0.5 Mg/Albuterol Sulfate 2.5 Mg Ampul.Neb 3 Ml INHALATION 3 ml Q6HRT PRN Administration Shortness Of Breath Albuterol/Ipratropium 3 ml 03/27/25 10:22 Ipratropium 0.5 Mg/Albuterol Sulfate 2.5 Mg Ampul.Neb 3 Ml INHALATION Q6HRT PRN Shortness Of Breath Or Wheezing Lipase/Protease/Amylase 4 cap 03/20/25 09:00 03/28/25 08:25 Lipase/Amylase/Protease 12,000 Units Cap PO 4 cap TID DOC Administration Apixaban 2.5 mg 03/20/25 09:00 03/28/25 08:23 Apixaban 2.5 Mg Tablet PO 2.5 mg BID DOC Administration Artificial Tears 1 drop 03/20/25 17:00 03/28/25 12:30 Artificial Tears Ophth Soln 15 Ml Bottle EACH EYE 1 drop BID DOC Administration Ascorbic Acid 500 mg 03/20/25 11:05 03/28/25 08:23 Ascorbic Acid 500 Mg Tablet PO 500 mg Q12HRT DOC Administration Atorvastatin Calcium 40 mg 03/20/25 18:00 03/27/25 17:42 Atorvastatin 40 Mg Tablet PO 40 mg QPM DOC Administration Bisacodyl 10 mg 03/20/25 10:56 Bisacodyl 10 Mg Suppository RECTAL DAILY PRN constipation Budesonide 0.5 mg 03/24/25 20:00 03/28/25 08:39 Budesonide Respule Neb 0.5 Mg/2 Ml Amp INHALATION 0.5 mg Q12HRT DOC Administration Bupropion HCl 75 mg 03/20/25 09:00 03/28/25 08:30 Bupropion Hcl 75 Mg Tablet PO 75 mg DAILY DOC Administration Carvedilol 3.125 mg 03/20/25 09:00 03/28/25 08:24 Carvedilol 3.125 Mg Tablet PO 3.125 mg Q12HR DOC Administration Dextrose 12.5 gm 03/19/25 12:38 Dextrose 50% 25 Gm/50 Ml Syringe IV PUSH PRN PRN Hypoglycemia Protocol Diphenhydramine HCl 25 mg 03/20/25 21:21 03/27/25 23:21 Diphenhydramine Hcl Cap 25 Mg Capsule PO 25 mg Q6H PRN Administration Itching Doxycycline Hyclate 100 mg 03/27/25 10:20 03/28/25 08:24 Doxycycline Hyclate 100 Mg Tablet PO 100 mg Q12HR DOC Administration Furosemide 40 mg 03/20/25 09:00 03/28/25 08:23 Furosemide 40 Mg Tablet PO 40 mg QAM DOC Administration Glucagon 1 mg 03/19/25 12:38 Glucagon For Inj 1 Mg Vial IM PRN PRN Hypoglycemia Protocol Glucose 15 gm 03/19/25 12:38 Glucose Oral Gel 15 Gm Of Glucse In 37.5 Gm Tube PO PRN PRN Hypoglycemia Protocol Guaifenesin 1,200 mg 03/24/25 09:00 03/28/25 08:25 Guaifenesin 12 Hr 600 Mg Tabcr PO 1,200 mg Q12HR DOC Administration Dextrose 1,000 mls @ 100 mls/hr 06/18/25 12:38 Dextrose 5% 1,000 Ml IVPB PRN PRN Hypoglycemia Protocol Levofloxacin 750 mg 03/26/25 21:00 03/26/25 22:19 Levofloxacin 750 Mg Tablet PO 750 mg Q48H DOC Administration Methotrexate 7.5 mg 03/21/25 09:00 03/21/25 09:07 Methotrexate 2.5 Mg Tab (*Chemo) PO 7.5 mg WEEKLY DOC Administration Multivitamins Therapeutic 1 tablet 03/21/25 09:00 03/28/25 08:24 Multivitamins Therapeutic Tab (*Bkc) PO 1 tablet DAILY DOC Administration Ondansetron HCl 4 mg 03/27/25 11:22 03/28/25 10:32 Ondansetron Hcl Odt 4 Mg Tablet PO 4 mg Q6H PRN Administration Nausea And Vomiting Pantoprazole Sodium 40 mg 03/20/25 11:15 03/28/25 08:23 Pantoprazole 40 Mg Tablet PO 40 mg QAM DOC Administration Pregabalin 150 mg 03/20/25 09:00 03/28/25 08:23 Pregabalin (*Crx) 75 Mg Capsule PO 150 mg BID DOC Administration Senna 8.6 mg 03/20/25 17:00 03/23/25 08:49 Sennosides 8.6 Mg Tablet PO 8.6 mg BID DOC Administration Sodium Chloride 10 ml 03/20/25 14:00 03/28/25 06:32 Saline Lock Flush IV PUSH 10 ml Q8HR DOC Administration Sodium Chloride 10 ml 03/20/25 13:40 Saline Lock Flush IV PUSH PRN PRN Flush Sodium Chloride 20 ml 03/20/25 13:40 03/24/25 05:47 Saline Lock Flush IV PUSH 20 ml PRN PRN Administration after blood draws Trazodone HCl 50 mg 03/20/25 21:00 03/27/25 22:38 Trazodone Hcl 50 Mg Tablet PO 50 mg HS DOC Administration Umeclidinium/Vilanterol 1 puff 03/20/25 08:00 03/28/25 09:44 Umeclidinium/Vilanterol 62.5-25 Mcg Ellipta INHALATION 1 puff DAILYRT DOC Administration Radiology Results: ITS Impressions Chest X-Ray 03/24/25 09:17 IMPRESSION: Bilateral pneumonia unchanged from previous examination. Chest CT 03/25/25 15:08 IMPRESSION: 1. Fibrotic changes in the right upper lobe, lingula and both lower lobes. Superimpose pneumonitis cannot be excluded. 2. Prominent pulmonary arteries which may indicate pulmonary hypertension. 3. Right adrenal adenoma unchanged. Labs Labs: Laboratory Results - last 24 hr 03/28/25 09:13 WBC 19.6 H RBC 3.23 L Hgb 10.2 L Hct 32.8 L MCV 101.5 H MCH 31.6 MCHC 31.1 L RDW 12.6 Plt Count 325 MPV 12.1 H Immature Gran % (Auto) 2.5 H Neut % (Auto) 66.9 Lymph % (Auto) 21.3 [place] % (Auto) 7.4 Eos % (Auto) 1.6 Baso % (Auto) 0.3 Lymph # (Auto) 4.17 H [place] # (Auto) 1.5 H Eos # (Auto) 0.3 Baso # (Auto) 0.1 Abs Immat Gran (auto) 0.49 H Absolute Neuts (auto) 13.1 H Absolute Nucleated RBC 0.000 Nucleated RBC % 0.0 Sodium 135 L Potassium 3.7 Chloride 95 L Carbon Dioxide 32 H Anion Gap 8 BUN 37 H D Creatinine 0.79 Estim Creat Clear Calc 46 Estimated GFR > 60 Glucose 133 H Calcium 8.4 Magnesium 1.9 Total Bilirubin 0.3 AST 31 ALT 25 Alkaline Phosphatase 38 Total Protein 6.6 Albumin 3.7
[2025-03-28 14:54] LABS: Procalcitonin 0.0 ng/mL
[2025-03-28] MEDS: ATORVASTATIN 40 MG TABLET PO (17:17)
[2025-03-28 17:28] LABS: Legionella pneumophila Ag Ur. NOT DETECTED
[2025-03-28 17:38] LABS: Mycoplasma pneumoniae Ab(IgG). < or = 0.90
[2025-03-29] VITALS (12 sets, daily range): BP systolic 100–119; BP diastolic 54–71; PULSE 64–85; RESP 14–20; TEMP 36.1–36.4; O2SAT 94–97
--- NOTE | 2025-03-29 02:54 | PC.NURSE ---
I agree with Maria E RODRIGUEZ's assessment on 03/28/25
[2025-03-29] MEDS: SALINE LOCK FLUSH 10 ML IV PUSH ×3 (06:45→23:23)
[2025-03-29] MEDS: BUDESONIDE RESPULE NEB 0.5 MG/2 ML AMP INHALATION ×2 (08:22→19:48)
[2025-03-29] MEDS: DOXYCYCLINE HYCLATE 100 MG TABLET PO ×2 (08:50→21:28)
[2025-03-29] MEDS: LIPASE/AMYLASE/PROTEASE 12,000 UNITS CAP 4 CAP PO ×3 (08:50→17:46)
[2025-03-29] MEDS: PREGABALIN (*CRX) 75 MG CAPSULE 150 MG PO ×2 (08:51→17:46)
[2025-03-29] MEDS: APIXABAN 2.5 MG TABLET PO ×2 (08:52→17:46)
[2025-03-29] MEDS: HYDROcodone/acetaminophen (*CRX) 10-325 MG TABLET 1 TAB PO ×4 (08:52→21:28)
[2025-03-29] MEDS: ASCORBIC ACID 500 MG TABLET PO ×2 (08:52→20:43)
[2025-03-29] MEDS: MULTIVITAMINS THERAPEUTIC TAB (*BKC) 1 TABLET PO (08:53)
[2025-03-29] MEDS: FUROSEMIDE 40 MG TABLET PO (08:53)
[2025-03-29] MEDS: PANTOPRAZOLE 40 MG TABLET PO (08:54)
[2025-03-29] MEDS: guaiFENesin 12 HR 600 MG TABCR 1200 MG PO ×2 (08:54→21:29)
[2025-03-29] MEDS: ARTIFICIAL TEARS OPHTH SOLN 15 ML BOTTLE 1 DROP EACH EYE ×2 (08:55→17:46)
[2025-03-29 12:52] LABS: Procalcitonin 0.0 ng/mL
[2025-03-29] MEDS: ATORVASTATIN 40 MG TABLET PO (17:46)
--- NOTE | 2025-03-29 17:51 | P.PNIM_ITS ---
Progress Note: A&P Assessment and Plan (1) Acute on chronic respiratory failure with hypoxia and hypercapnia: Code(s): J96.21 - Acute and chronic respiratory failure with hypoxia; J96.22 - Acute and chronic respiratory failure with hypercapnia Status: Acute Assessment and Plan: Patient presented with worsening SOB. She has chronic respiratory failure on 2-3 L O2 due to chronic COPD ABG on admission (03/19): 7.42/54/71 on 2L which is chronic hypoxia with hypercapnia. CXR (03/19) showing bilateral pneumonia SOB likely secondary pneumonia and COPD exacerbation. Rocephin given 03/19 and 03/20 but changed to Meropenem on 03/20. Levaquin added 03/24. Completed 5 days of Azithromycin. BCx 03/19 - Negative. MRSA negative. Legionella, mycoplasma and pneumococcal pending CT Chest (03/25) without contrast showing fibrotic changes in RUL, lingula and bilateral lower lobes. Superimposed pneumonitis cannot be excluded. Prominent pulmonary arteries noted Echo Aug 2023: EF 60-65%, Grade I diastolic dysfunction, mild RV enlargement and hypokinesis, mild valve disease and mild pulm HTN (46mmHg) WBC normal on admission but climbed to 19K (but was on Solu-Medrol). Switched to Prednisone and WBC improved initially but now climbing since 03/24. WBC now at 21K despite Levaquin and Meropenem. Leukocytosis could be related to steroids since currently on broad spectrum. She is immunosuppressed so consider atypical bacteria. Also has not been covered for MRSA. Currently on Mucinex, Anoro, Mucomyst, Pulmicort respules and Duonebs. Incentive spirometer while awake Weaned to baseline O2. Ordered CPT and flutter valve. Change Duonebs to prn and stop Mucomyst Stop Meropenem since 7 days. Wean O2 to keep SpO2 92-95%. Okay to stop tele. Add PT/OT. Hold MTX since treating PNA. Will stop steroids since not wheezing and at baseline O2 and with PNA. Add doxycycline. (2) Pneumonia: Qualifiers: Laterality: bilateral Lung location: lower lobe of lung Pneumonia type: due to unspecified organism Qualified Code(s): J18.9 - Pneumonia, unspecified organism Code(s): J18.9 - Pneumonia, unspecified organism Status: Acute Assessment and Plan: As above (3) COPD (chronic obstructive pulmonary disease): Qualifiers: COPD type: unspecified COPD Qualified Code(s): J44.9 - Chronic obstructive pulmonary disease, unspecified Code(s): J44.9 - Chronic obstructive pulmonary disease, unspecified Status: Chronic Assessment and Plan: Patient with chronic COPD with chronic resp failure on 2-3 L of home oxygen at residential As above (4) Diastolic congestive heart failure: Code(s): I50.30 - Unspecified diastolic (congestive) heart failure Status: Acute Assessment and Plan: CXR showed possible underlying pulmonary edema as well. Echocardiogram on 08/2023 as above. BNP 267 on admission. No clinical evidence of fluid overload. Patient with chronic diastolic CHF Continue patient's oral furosemide daily Monitor fluid status and daily weights (5) Hypomagnesemia: Code(s): E83.42 - Hypomagnesemia Status: Acute Assessment and Plan: Magnesium was 1.3 on admission and replaced. Mag normal now. Monitor periodically. (6) HTN (hypertension): Qualifiers: Hypertension type: unspecified Qualified Code(s): I10 - Essential (primary) hypertension Code(s): I10 - Essential (primary) hypertension Status: Chronic Assessment and Plan: Patient's blood pressure was reviewed on 03/27 Blood pressure remains well controlled. Will continue current medications. (7) Anemia of chronic disease: Code(s): D63.8 - Anemia in other chronic diseases classified elsewhere Status: Acute Assessment and Plan: Patient with chronic anemia. Hemoglobin has been stable here in the 10-11 range. Continue to monitor. (8) Diarrhea: Code(s): R19.7 - Diarrhea, unspecified Status: Acute Assessment and Plan: Patient with loose stools requiring Imodium. C diff PCR was negative. She received 1 dose on 03/20 but nothing since. Will stop Imodium in case diarrhea returns. Monitor for recurrent diarrhea since she has a history of C diff. (9) Osteoarthritis of bilateral glenohumeral joints: Code(s): M19.011 - Primary osteoarthritis, right shoulder; M19.012 - Primary osteoarthritis, left shoulder Status: Acute Assessment and Plan: Hold MTX until active infection has been treated appropriately. (10) Exocrine pancreatic insufficiency: Code(s): K86.81 - Exocrine pancreatic insufficiency Status: Chronic Assessment and Plan: Stable. Continue Creon (11) UTI (urinary tract infection): Code(s): N39.0 - Urinary tract infection, site not specified Status: Acute Assessment and Plan: Patient was on meropenem for ESBL cystitis on admission. Patient also presented with a midline UA here not suspicious for urinary tract infection. Abx switched from ceftriaxone to meropenem for ESBL coverage since unable to determine length of patient's therapy She has completed 7 days of meropenem and stopped. Plan Code status: Full code per patient DVT prophylaxis: SCD/Eliquis Disposition: Start PT/OT; NH resident Subjective Date/time seen: 03/29/25 17:51 Interval history: No overnight events. Feels a little better today. Denies any chest pain or shortness of breath. Review of Systems Review of Systems: All systems reviewed & are unremarkable except as noted in HPI and below Exam Narrative: GENERAL: Pleasant, in no acute distress. Well-nourished. - EYES: EOMI. Anicteric. - HENT: Moist mucous membranes. - LUNGS: Decreased air entry bilateral, scattered wheezing, rhonchi, or rales. - CARDIOVASCULAR: Regular rate and rhyth m. No murmur. No JVD. - ABDOMEN: Soft, non-tender and non-dist ended. No palpable masses. - EXTREMITIES: No edema. Peripheral puls es 2+. Non-tender. - NEUROLOGIC: No focal neurological defi cits. CN II-XII grossly intact. - PSYCHIATRIC: Awake, Alert and oriented x 3. Appropriate mood and affect. - SKIN: No rashes or lesions. Warm. - LYMPH: No cervical lymphadenopathy. Objective Data Vital Signs Vital Signs: Vital Signs - 24 hr 03/28/25 21:00 03/28/25 21:15 03/28/25 21:32 Temperature 97.4 F L Pulse Rate 68 65 Respiratory Rate 14 Blood Pressure 107/58 L Pulse Oximetry 95 98 Oxygen Delivery Nasal Cannula Oxygen Flow Rate 2 03/28/25 22:12 03/28/25 22:14 03/29/25 06:00 Temperature 97.0 F L Pulse Rate 68 69 Respiratory Rate 18 14 Blood Pressure 114/54 L Pulse Oximetry 96 94 Oxygen Delivery Nasal Cannula Oxygen Flow Rate 2 03/29/25 08:00 03/29/25 08:25 03/29/25 08:26 Temperature Pulse Rate 82 Respiratory Rate Blood Pressure 119/64 Pulse Oximetry 95 94 Oxygen Delivery Nasal Cannula Nasal Cannula Oxygen Flow Rate 2 2 03/29/25 08:26 03/29/25 08:32 03/29/25 08:53 Temperature Pulse Rate 71 85 82 Respiratory Rate 20 20 Blood Pressure Pulse Oximetry Oxygen Delivery Oxygen Flow Rate 03/29/25 14:00 Temperature 96.9 F L Pulse Rate 65 Respiratory Rate 16 Blood Pressure 100/64 Pulse Oximetry 96 Oxygen Delivery Oxygen Flow Rate Intake/Output Intake/Output: Intake & Output 03/26/25 03/27/25 03/28/25 03/29/25 23:59 23:59 23:59 23:59 Intake Total 1920 3001 2367 558 Output Total 1200 1800 1100 1550 Balance 720 120 1266 -348 Meds/Results Medications: Active Medications Generic Name Dose Route Start Last Admin Trade Name Freq PRN Reason Stop Dose Admin Hydrocodone Bitart/Acetaminophen 1 tab 03/20/25 09:00 03/29/25 17:47 Hydrocodone/Acetaminophen (*Crx) 10-325 Mg Tablet PO 1 tab QID DOC Administration Albuterol/Ipratropium 3 ml 03/20/25 14:00 03/28/25 08:39 Ipratropium 0.5 Mg/Albuterol Sulfate 2.5 Mg Ampul.Neb 3 Ml INHALATION 3 ml Q6HRT PRN Administration Shortness Of Breath Albuterol/Ipratropium 3 ml 03/27/25 10:22 Ipratropium 0.5 Mg/Albuterol Sulfate 2.5 Mg Ampul.Neb 3 Ml INHALATION Q6HRT PRN Shortness Of Breath Or Wheezing Lipase/Protease/Amylase 4 cap 03/20/25 09:00 03/29/25 17:46 Lipase/Amylase/Protease 12,000 Units Cap PO 4 cap TID DOC Administration Apixaban 2.5 mg 03/20/25 09:00 03/29/25 17:46 Apixaban 2.5 Mg Tablet PO 2.5 mg BID DOC Administration Artificial Tears 1 drop 03/20/25 17:00 03/29/25 17:46 Artificial Tears Ophth Soln 15 Ml Bottle EACH EYE 1 drop BID DOC Administration Ascorbic Acid 500 mg 03/20/25 11:05 03/29/25 08:52 Ascorbic Acid 500 Mg Tablet PO 500 mg Q12HRT DOC Administration Atorvastatin Calcium 40 mg 03/20/25 18:00 03/29/25 17:46 Atorvastatin 40 Mg Tablet PO 40 mg QPM DOC Administration Bisacodyl 10 mg 03/20/25 10:56 Bisacodyl 10 Mg Suppository RECTAL DAILY PRN constipation Budesonide 0.5 mg 03/24/25 20:00 03/29/25 08:22 Budesonide Respule Neb 0.5 Mg/2 Ml Amp INHALATION 0.5 mg Q12HRT DOC Administration Bupropion HCl 75 mg 03/20/25 09:00 03/29/25 08:52 Bupropion Hcl 75 Mg Tablet PO 75 mg DAILY DOC Administration Carvedilol 3.125 mg 03/20/25 09:00 03/29/25 08:53 Carvedilol 3.125 Mg Tablet PO 3.125 mg Q12HR DOC Administration Dextrose 12.5 gm 03/19/25 12:38 Dextrose 50% 25 Gm/50 Ml Syringe IV PUSH PRN PRN Hypoglycemia Protocol Diphenhydramine HCl 25 mg 03/20/25 21:21 03/27/25 23:21 Diphenhydramine Hcl Cap 25 Mg Capsule PO 25 mg Q6H PRN Administration Itching Doxycycline Hyclate 100 mg 03/27/25 10:20 03/29/25 08:50 Doxycycline Hyclate 100 Mg Tablet PO 100 mg Q12HR DOC Administration Furosemide 40 mg 03/20/25 09:00 03/29/25 08:53 Furosemide 40 Mg Tablet PO 40 mg QAM DOC Administration Glucagon 1 mg 03/19/25 12:38 Glucagon For Inj 1 Mg Vial IM PRN PRN Hypoglycemia Protocol Glucose 15 gm 03/19/25 12:38 Glucose Oral Gel 15 Gm Of Glucse In 37.5 Gm Tube PO PRN PRN Hypoglycemia Protocol Guaifenesin 1,200 mg 03/24/25 09:00 03/29/25 08:54 Guaifenesin 12 Hr 600 Mg Tabcr PO 1,200 mg Q12HR DOC Administration Dextrose 1,000 mls @ 100 mls/hr 03/19/25 12:38 Dextrose 5% 1,000 Ml IVPB PRN PRN Hypoglycemia Protocol Levofloxacin 750 mg 03/26/25 21:00 03/28/25 21:09 Levofloxacin 750 Mg Tablet PO 750 mg Q48H DOC Administration Methotrexate 7.5 mg 03/21/25 09:00 03/21/25 09:07 Methotrexate 2.5 Mg Tab (*Chemo) PO 7.5 mg WEEKLY DOC Administration Miscellaneous Information 1 each 03/29/25 00:01 [place] Need To Be Renewed Or It Will Automatically Discontinue 03/30. XX 04/28/25 00:00 CLARIFY DOC Multivitamins Therapeutic 1 tablet 03/21/25 09:00 03/29/25 08:53 Multivitamins Therapeutic Tab (*Bkc) PO 1 tablet DAILY DOC Administration Ondansetron HCl 4 mg 03/27/25 11:22 03/28/25 17:17 Ondansetron Hcl Odt 4 Mg Tablet PO 4 mg Q6H PRN Administration Nausea And Vomiting Pantoprazole Sodium 40 mg 03/20/25 11:15 03/29/25 08:54 Pantoprazole 40 Mg Tablet PO 40 mg QAM DOC Administration Pregabalin 150 mg 03/20/25 09:00 03/29/25 17:46 Pregabalin (*Crx) 75 Mg Capsule PO 150 mg BID DOC Administration Senna 8.6 mg 03/20/25 17:00 03/23/25 08:49 Sennosides 8.6 Mg Tablet PO 8.6 mg BID DOC Administration Sodium Chloride 10 ml 03/20/25 14:00 03/29/25 13:16 Saline Lock Flush IV PUSH 10 ml Q8HR DOC Administration Sodium Chloride 10 ml 03/20/25 13:40 Saline Lock Flush IV PUSH PRN PRN Flush Sodium Chloride 20 ml 03/20/25 13:40 03/24/25 05:47 Saline Lock Flush IV PUSH 20 ml PRN PRN Administration after blood draws Trazodone HCl 50 mg 03/20/25 21:00 03/28/25 23:16 Trazodone Hcl 50 Mg Tablet PO 50 mg HS DOC Administration Umeclidinium/Vilanterol 1 puff 03/20/25 08:00 03/29/25 08:31 Umeclidinium/Vilanterol 62.5-25 Mcg Ellipta INHALATION Not Given DAILYRT [facility] Radiology Results: ITS Impressions Chest X-Ray 03/24/25 09:17 IMPRESSION: Bilateral pneumonia unchanged from previous examination. Chest CT 03/25/25 15:08 IMPRESSION: 1. Fibrotic changes in the right upper lobe, lingula and both lower lobes. Superimpose pneumonitis cannot be excluded. 2. Prominent pulmonary arteries which may indicate pulmonary hypertension. 3. Right adrenal adenoma unchanged. Labs Labs: Laboratory Results - last 24 hr 03/25/25 03/29/25 16:03 12:05 Procalcitonin 0.0 Urine Pneumococcal Ag Not detected
[2025-03-29] MEDS: ONDANSETRON HCL ODT 4 MG TABLET PO (18:24)
[2025-03-30] VITALS (9 sets, daily range): BP systolic 98–119; BP diastolic 55–72; PULSE 70–81; RESP 12–18; TEMP 36.2–36.4; O2SAT 93–100
[2025-03-30] MEDS: SALINE LOCK FLUSH 10 ML IV PUSH ×3 (06:27→21:30)
[2025-03-30 07:15] LABS: Hematocrit 32.1 % (37.0-47.0); Hemoglobin 9.9 g/dL (12.0-15.0); Immature Granulocyte Percent A 1.4 % (0-0.5); Lymphocytes Absolute Auto 2.64 K/mm3 (0.9-3.2); Mean Corpuscular HGB Conc 30.8 g/dl (32-36); Mean Corpuscular Hemoglobin 31.2 pg (26-34); Mean Corpuscular Volume 101.3 fl (80-100); Nucleated Red Blood Cells Absolute Auto 0.000 K/mm3 (0.0-0.012); Nucleated Red Blood Cells Perc 0.0 % (0.0-0.2); Platelet Count Result 300 k/mm3 (150-375); Red Blood Count 3.17 M/mm3 (4.2-5.4); White Blood Count 16.3 K/mm3 (4.5-10.0)
[2025-03-30 07:24] LABS: Alanine Aminotransferase 20 U/L (6-35); Albumin Level 3.4 g/dL (3.5-5.1); Alkaline Phosphatase 45 U/L (38-126); Anion Gap 8 mmol/L (4-12); Aspartate Amino Transferase 26 U/L (14-36); Bilirubin,Total 0.3 mg/dL (0.2-1.3); Blood Urea Nitrogen 33 mg/dL (7-17); Calcium 8.4 mg/dL (8.4-10.2); Carbon Dioxide 37 mmol/L (22-30); Chloride 89 mmol/L (98-107); Estimated CRCL calculation 51 ml/min; Estimated Glomerular Filt Rate > 60; Glucose 139 mg/dL (65-110); Magnesium 1.9 mg/dL (1.6-2.3); Potassium 3.8 mmol/L (3.4-5.0); Sodium 134 mmol/L (137-145); Total Protein 6.3 g/dL (6.3-8.2)
[2025-03-30] MEDS: UMECLIDINIUM/VILANTEROL 62.5-25 MCG ELLIPTA 1 PUFF INHALATION (07:48)
[2025-03-30] MEDS: BUDESONIDE RESPULE NEB 0.5 MG/2 ML AMP INHALATION ×2 (07:48→20:55)
[2025-03-30] MEDS: guaiFENesin 12 HR 600 MG TABCR 1200 MG PO ×2 (08:48→21:29)
[2025-03-30] MEDS: MULTIVITAMINS THERAPEUTIC TAB (*BKC) 1 TABLET PO (08:48)
[2025-03-30] MEDS: FUROSEMIDE 40 MG TABLET PO (08:48)
[2025-03-30] MEDS: DOXYCYCLINE HYCLATE 100 MG TABLET PO ×2 (08:48→21:29)
[2025-03-30] MEDS: ASCORBIC ACID 500 MG TABLET PO ×2 (08:49→21:29)
[2025-03-30] MEDS: APIXABAN 2.5 MG TABLET PO ×2 (08:49→16:59)
[2025-03-30] MEDS: PANTOPRAZOLE 40 MG TABLET PO (08:49)
[2025-03-30] MEDS: LIPASE/AMYLASE/PROTEASE 12,000 UNITS CAP 4 CAP PO ×3 (08:50→16:59)
[2025-03-30] MEDS: ARTIFICIAL TEARS OPHTH SOLN 15 ML BOTTLE 1 DROP EACH EYE ×2 (08:54→17:00)
[2025-03-30] MEDS: ONDANSETRON HCL ODT 4 MG TABLET PO ×2 (08:56→14:26)
[2025-03-30] MEDS: HYDROcodone/acetaminophen (*CRX) 10-325 MG TABLET 1 TAB PO ×3 (09:07→21:29)
[2025-03-30] MEDS: PREGABALIN (*CRX) 75 MG CAPSULE 150 MG PO ×2 (09:07→21:29)
--- NOTE | 2025-03-30 12:28 | PM.IMPN ---
Progress Note: A&P Assessment and Plan (1) Acute on chronic respiratory failure with hypoxia and hypercapnia: Code(s): J96.21 - Acute and chronic respiratory failure with hypoxia; J96.22 - Acute and chronic respiratory failure with hypercapnia Status: Acute Assessment and Plan: Patient presented with worsening SOB. She has chronic respiratory failure on 2-3 L O2 due to chronic COPD ABG on admission (03/19): 7.42/54/71 on 2L which is chronic hypoxia with hypercapnia. CXR (03/19) showing bilateral pneumonia SOB likely secondary pneumonia and COPD exacerbation. Rocephin given 03/19 and 03/20 but changed to Meropenem on 03/20. Levaquin added 03/24. Completed 5 days of Azithromycin. BCx 03/19 - Negative. MRSA negative. Legionella, mycoplasma and pneumococcal pending CT Chest (03/25) without contrast showing fibrotic changes in RUL, lingula and bilateral lower lobes. Superimposed pneumonitis cannot be excluded. Prominent pulmonary arteries noted Echo Aug 2023: EF 60-65%, Grade I diastolic dysfunction, mild RV enlargement and hypokinesis, mild valve disease and mild pulm HTN (46mmHg) WBC normal on admission but climbed to 19K (but was on Solu-Medrol). Switched to Prednisone and WBC improved initially but now climbing since 03/24. WBC now at 21K despite Levaquin and Meropenem. Leukocytosis could be related to steroids since currently on broad spectrum. She is immunosuppressed so consider atypical bacteria. Also has not been covered for MRSA. Currently on Mucinex, Anoro, Mucomyst, Pulmicort respules and Duonebs. Incentive spirometer while awake Weaned to baseline O2. Ordered CPT and flutter valve. Change Duonebs to prn and stop Mucomyst Stop Meropenem since 7 days. Wean O2 to keep SpO2 92-95%. Okay to stop tele. Add PT/OT. Hold MTX since treating PNA. Will stop steroids since not wheezing and at baseline O2 and with PNA. Add doxycycline. (2) Pneumonia: Qualifiers: Laterality: bilateral Lung location: lower lobe of lung Pneumonia type: due to unspecified organism Qualified Code(s): J18.9 - Pneumonia, unspecified organism Code(s): J18.9 - Pneumonia, unspecified organism Status: Acute Assessment and Plan: As above (3) COPD (chronic obstructive pulmonary disease): Qualifiers: COPD type: unspecified COPD Qualified Code(s): J44.9 - Chronic obstructive pulmonary disease, unspecified Code(s): J44.9 - Chronic obstructive pulmonary disease, unspecified Status: Chronic Assessment and Plan: Patient with chronic COPD with chronic resp failure on 2-3 L [facility] As above (4) Diastolic congestive heart failure: Code(s): I50.30 - Unspecified diastolic (congestive) heart failure Status: Acute Assessment and Plan: CXR showed possible underlying pulmonary edema as well. Echocardiogram on 08/2023 as above. BNP 267 on admission. No clinical evidence of fluid overload. Patient with chronic diastolic CHF Continue patient's oral furosemide daily Monitor fluid status and daily weights (5) Hypomagnesemia: Code(s): E83.42 - Hypomagnesemia Status: Acute Assessment and Plan: Magnesium was 1.3 on admission and replaced. Mag normal now. Monitor periodically. (6) HTN (hypertension): Qualifiers: Hypertension type: unspecified Qualified Code(s): I10 - Essential (primary) hypertension Code(s): I10 - Essential (primary) hypertension Status: Chronic Assessment and Plan: Patient's blood pressure was reviewed on 03/27 Blood pressure remains well controlled. Will continue current medications. (7) Anemia of chronic disease: Code(s): D63.8 - Anemia in other chronic diseases classified elsewhere Status: Acute Assessment and Plan: Patient with chronic anemia. Hemoglobin has been stable here in the 10-11 range. Continue to monitor. (8) Diarrhea: Code(s): R19.7 - Diarrhea, unspecified Status: Acute Assessment and Plan: Patient with loose stools requiring Imodium. C diff PCR was negative. She received 1 dose on 03/20 but nothing since. Will stop Imodium in case diarrhea returns. Monitor for recurrent diarrhea since she has a history of C diff. (9) Osteoarthritis of bilateral glenohumeral joints: Code(s): M19.011 - Primary osteoarthritis, right shoulder; M19.012 - Primary osteoarthritis, left shoulder Status: Acute Assessment and Plan: Hold MTX until active infection has been treated appropriately. (10) Exocrine pancreatic insufficiency: Code(s): K86.81 - Exocrine pancreatic insufficiency Status: Chronic Assessment and Plan: Stable. Continue Creon (11) UTI (urinary tract infection): Code(s): N39.0 - Urinary tract infection, site not specified Status: Acute Assessment and Plan: Patient was on meropenem for ESBL cystitis on admission. Patient also presented with a midline UA here not suspicious for urinary tract infection. Abx switched from ceftriaxone to meropenem for ESBL coverage since unable to determine length of patient's therapy She has completed 7 days of meropenem and stopped. Plan Code status: Full code per patient DVT prophylaxis: SCD/Eliquis Disposition: Start PT/OT; NH resident Subjective Date/time seen: 03/30/25 12:28 Interval history: No overnight events. Feeling better. Cough still present. Constipated. Review of Systems Review of Systems: All systems reviewed & are unremarkable except as noted in HPI and below Exam Narrative: GENERAL: Pleasant, in no acute distress. Well-nourished. - EYES: EOMI. Anicteric. - HENT: Moist mucous membranes. - LUNGS: Decreased air entry bilateral, scattered wheezing, rhonchi, or rales. - CARDIOVASCULAR: Regular rate and rhythm. No murmur. No JVD. - ABDOMEN: Soft, non-tender and non-distended. No palpable masses. - EXTREMITIES: No edema. Peripheral pulses 2+. Non-tender. - NEUROLOGIC: No focal neurological deficits. CN II-XII grossly intact. - PSYCHIATRIC: Awake, Alert and oriented x 3. Appropriate mood and affect. - SKIN: No rashes or lesions. Warm. - LYMPH: No cervical lymphadenopathy. Objective Data Vital Signs Vital Signs: Vital Signs - 24 hr 03/29/25 14:00 03/29/25 19:48 03/29/25 20:07 Temperature 96.9 F L Pulse Rate 65 65 65 Respiratory Rate 16 18 18 Blood Pressure 100/64 Pulse Oximetry 96 Oxygen Delivery Oxygen Flow Rate 03/29/25 20:54 03/29/25 21:28 03/29/25 22:00 Temperature 97.6 F Pulse Rate 74 64 Respiratory Rate 16 Blood Pressure 117/71 Pulse Oximetry 96 97 Oxygen Delivery Nasal Cannula Oxygen Flow Rate 2 03/30/25 06:00 03/30/25 07:48 03/30/25 08:00 Temperature 97.6 F Pulse Rate 76 70 81 Respiratory Rate 12 18 Blood Pressure 119/55 L Pulse Oximetry 96 93 Oxygen Delivery Nasal Cannula Oxygen Flow Rate 2 03/30/25 08:50 03/30/25 10:04 Temperature Pulse Rate 81 Respiratory Rate Blood Pressure Pulse Oximetry 95 Oxygen Delivery Nasal Cannula Oxygen Flow Rate 2 Intake/Output Intake/Output: Intake & Output 03/27/25 03/28/25 03/29/25 03/30/25 23:59 23:59 23:59 23:59 Intake Total 3001 2367 798 336 Output Total 1800 1100 1550 800 Balance 1201 7654 -752 -514 Meds/Results Medications: Active Medications Generic Name Dose Route Start Last Admin Trade Name Freq PRN Reason Stop Dose Admin Albuterol/Ipratropium 3 ml 03/20/25 14:00 03/28/25 08:39 Ipratropium 0.5 Mg/Albuterol Sulfate 2.5 Mg Ampul.Neb 3 Ml INHALATION 3 ml Q6HRT PRN Administration Shortness Of Breath Albuterol/Ipratropium 3 ml 03/27/25 10:22 Ipratropium 0.5 Mg/Albuterol Sulfate 2.5 Mg Ampul.Neb 3 Ml INHALATION Q6HRT PRN Shortness Of Breath Or Wheezing Lipase/Protease/Amylase 4 cap 03/20/25 09:00 03/30/25 08:50 Lipase/Amylase/Protease 12,000 Units Cap PO 4 cap TID DOC Administration Apixaban 2.5 mg 03/20/25 09:00 03/30/25 08:49 Apixaban 2.5 Mg Tablet PO 2.5 mg BID DOC Administration Artificial Tears 1 drop 03/20/25 17:00 03/30/25 08:54 Artificial Tears Ophth Soln 15 Ml Bottle EACH EYE 1 drop BID DOC Administration Ascorbic Acid 500 mg 03/20/25 11:05 03/30/25 08:49 Ascorbic Acid 500 Mg Tablet PO 500 mg Q12HRT DOC Administration Atorvastatin Calcium 40 mg 03/20/25 18:00 03/29/25 17:46 Atorvastatin 40 Mg Tablet PO 40 mg QPM DOC Administration Bisacodyl 10 mg 03/20/25 10:56 Bisacodyl 10 Mg Suppository RECTAL DAILY PRN constipation Budesonide 0.5 mg 03/24/25 20:00 03/30/25 07:48 Budesonide Respule Neb 0.5 Mg/2 Ml Amp INHALATION 0.5 mg Q12HRT DOC Administration Bupropion HCl 75 mg 03/20/25 09:00 03/30/25 08:49 Bupropion Hcl 75 Mg Tablet PO 75 mg DAILY DOC Administration Carvedilol 3.125 mg 03/20/25 09:00 03/30/25 08:50 Carvedilol 3.125 Mg Tablet PO 3.125 mg Q12HR DOC Administration Dextrose 12.5 gm 03/19/25 12:38 Dextrose 50% 25 Gm/50 Ml Syringe IV PUSH PRN PRN Hypoglycemia Protocol Diphenhydramine HCl 25 mg 03/20/25 21:21 03/27/25 23:21 Diphenhydramine Hcl Cap 25 Mg Capsule PO 25 mg Q6H PRN Administration Itching Doxycycline Hyclate 100 mg 03/27/25 10:20 03/30/25 08:48 Doxycycline Hyclate 100 Mg Tablet PO 100 mg Q12HR DOC Administration Furosemide 40 mg 03/20/25 09:00 03/30/25 08:48 Furosemide 40 Mg Tablet PO 40 mg QAM DOC Administration Glucagon 1 mg 03/19/25 12:38 Glucagon For Inj 1 Mg Vial IM PRN PRN Hypoglycemia Protocol Glucose 15 gm 03/19/25 12:38 Glucose Oral Gel 15 Gm Of Glucse In 37.5 Gm Tube PO PRN PRN Hypoglycemia Protocol Guaifenesin 1,200 mg 03/24/25 09:00 03/30/25 08:48 Guaifenesin 12 Hr 600 Mg Tabcr PO 1,200 mg Q12HR DOC Administration Dextrose 1,000 mls @ 100 mls/hr 03/19/25 12:38 Dextrose 5% 1,000 Ml IVPB PRN PRN Hypoglycemia Protocol Levofloxacin 750 mg 03/26/25 21:00 03/28/25 21:09 Levofloxacin 750 Mg Tablet PO 750 mg Q48H DOC Administration Methotrexate 7.5 mg 03/21/25 09:00 03/21/25 09:07 Methotrexate 2.5 Mg Tab (*Chemo) PO 7.5 mg WEEKLY DOC Administration Miscellaneous Information 1 each 03/29/25 00:01 [place] And Lyrica Need To Be Renewed Or It Will Automatically Discontinue 03/30. XX 04/28/25 00:00 CLARIFY DOC Miscellaneous Information 1 each 03/30/25 00:01 Please Renew Meropenem_. Per [employer] Procedure, It Will Discontinue If Not Renewed XX 04/29/25 00:00 CLARIFY DOC Multivitamins Therapeutic 1 tablet 03/21/25 09:00 03/30/25 08:48 Multivitamins Therapeutic Tab (*Bkc) PO 1 tablet DAILY DOC Administration Ondansetron HCl 4 mg 03/27/25 11:22 03/30/25 08:56 Ondansetron Hcl Odt 4 Mg Tablet PO 4 mg Q6H PRN Administration Nausea And Vomiting Pantoprazole Sodium 40 mg 03/20/25 11:15 03/30/25 08:49 Pantoprazole 40 Mg Tablet PO 40 mg QAM DOC Administration Senna 8.6 mg 03/20/25 17:00 03/23/25 08:49 Sennosides 8.6 Mg Tablet PO 8.6 mg BID DOC Administration Sodium Chloride 10 ml 03/20/25 14:00 03/30/25 06:27 Saline Lock Flush IV PUSH 10 ml Q8HR DOC Administration Sodium Chloride 10 ml 03/20/25 13:40 Saline Lock Flush IV PUSH PRN PRN Flush Sodium Chloride 20 ml 03/20/25 13:40 03/24/25 05:47 Saline Lock Flush IV PUSH 20 ml PRN PRN Administration after blood draws Trazodone HCl 50 mg 03/20/25 21:00 03/29/25 23:23 Trazodone Hcl 50 Mg Tablet PO 50 mg HS DOC Administration Umeclidinium/Vilanterol 1 puff 03/20/25 08:00 03/30/25 07:48 Umeclidinium/Vilanterol 62.5-25 Mcg Ellipta INHALATION 1 puff DAILYRT DOC Administration Radiology Results: ITS Impressions Chest X-Ray 03/24/25 09:17 IMPRESSION: Bilateral pneumonia unchanged from previous examination. Chest CT 03/25/25 15:08 IMPRESSION: 1. Fibrotic changes in the right upper lobe, lingula and both lower lobes. Superimpose pneumonitis cannot be excluded. 2. Prominent pulmonary arteries which may indicate pulmonary hypertension. 3. Right adrenal adenoma unchanged. Labs Labs: Laboratory Results - last 24 hr 03/29/25 03/30/25 12:05 05:57 WBC 16.3 H RBC 3.17 L Hgb 9.9 L Hct 32.1 L MCV 101.3 H MCH 31.2 MCHC 30.8 L RDW 12.7 Plt Count 300 MPV 12.2 H Immature Gran % (Auto) 1.4 H Neut % (Auto) 68.3 Lymph % (Auto) 16.2 L [place] % (Auto) 9.6 H Eos % (Auto) 4.1 Baso % (Auto) 0.4 Lymph # (Auto) 2.64 [place] # (Auto) 1.6 H Eos # (Auto) 0.7 H Baso # (Auto) 0.1 Abs Immat Gran (auto) 0.23 H Absolute Neuts (auto) 11.1 H Absolute Nucleated RBC 0.000 Nucleated RBC % 0.0 Sodium 134 L Potassium 3.8 Chloride 89 L Carbon Dioxide 37 H Anion Gap 8 BUN 33 H Creatinine 0.73 Estim Creat Clear Calc 51 Estimated GFR > 60 Glucose 139 H Calcium 8.4 Magnesium 1.9 Total Bilirubin 0.3 AST 26 ALT 20 Alkaline Phosphatase 45 Total Protein 6.3 Albumin 3.4 L Procalcitonin 0.0
[2025-03-30] MEDS: OMEGA 3 POLYUNSAT FATTY ACIDS 1 GM CAP PO (12:50)
[2025-03-30] MEDS: ATORVASTATIN 40 MG TABLET PO (16:59)
[2025-03-31] VITALS (8 sets, daily range): BP systolic 97–120; BP diastolic 50–76; PULSE 76–85; RESP 16–20; TEMP 36.4–36.6; O2SAT 94–98
[2025-03-31 06:46] LABS: Hematocrit 30.9 % (37.0-47.0); Hemoglobin 9.6 g/dL (12.0-15.0); Immature Granulocyte Percent A 1.3 % (0-0.5); Lymphocytes Absolute Auto 2.33 K/mm3 (0.9-3.2); Mean Corpuscular HGB Conc 31.1 g/dl (32-36); Mean Corpuscular Hemoglobin 31.4 pg (26-34); Mean Corpuscular Volume 101.0 fl (80-100); Nucleated Red Blood Cells Absolute Auto 0.000 K/mm3 (0.0-0.012); Nucleated Red Blood Cells Perc 0.0 % (0.0-0.2); Platelet Count Result 270 k/mm3 (150-375); Red Blood Count 3.06 M/mm3 (4.2-5.4); White Blood Count 13.9 K/mm3 (4.5-10.0)
[2025-03-31] MEDS: SALINE LOCK FLUSH 10 ML IV PUSH ×3 (06:52→20:54)
[2025-03-31 07:07] LABS: Alanine Aminotransferase 19 U/L (6-35); Albumin Level 3.5 g/dL (3.5-5.1); Alkaline Phosphatase 44 U/L (38-126); Anion Gap 7 mmol/L (4-12); Aspartate Amino Transferase 26 U/L (14-36); Bilirubin,Total 0.4 mg/dL (0.2-1.3); Blood Urea Nitrogen 27 mg/dL (7-17); Calcium 8.5 mg/dL (8.4-10.2); Carbon Dioxide 39 mmol/L (22-30); Chloride 88 mmol/L (98-107); Estimated CRCL calculation 49 ml/min; Estimated Glomerular Filt Rate > 60; Glucose 154 mg/dL (65-110); Magnesium 1.7 mg/dL (1.6-2.3); Potassium 4.0 mmol/L (3.4-5.0); Sodium 134 mmol/L (137-145); Total Protein 6.5 g/dL (6.3-8.2)
[2025-03-31] MEDS: BUDESONIDE RESPULE NEB 0.5 MG/2 ML AMP INHALATION (08:13)
[2025-03-31] MEDS: UMECLIDINIUM/VILANTEROL 62.5-25 MCG ELLIPTA 1 PUFF INHALATION (08:13)
[2025-03-31] MEDS: ONDANSETRON HCL ODT 4 MG TABLET PO ×2 (09:19→18:21)
[2025-03-31] MEDS: MULTIVITAMINS THERAPEUTIC TAB (*BKC) 1 TABLET PO (09:19)
[2025-03-31] MEDS: PANTOPRAZOLE 40 MG TABLET PO (09:19)
[2025-03-31] MEDS: DOXYCYCLINE HYCLATE 100 MG TABLET PO ×2 (09:19→20:53)
[2025-03-31] MEDS: OMEGA 3 POLYUNSAT FATTY ACIDS 1 GM CAP PO (09:20)
[2025-03-31] MEDS: guaiFENesin 12 HR 600 MG TABCR 1200 MG PO ×2 (09:20→20:53)
[2025-03-31] MEDS: ASCORBIC ACID 500 MG TABLET PO ×2 (09:20→20:53)
[2025-03-31] MEDS: APIXABAN 2.5 MG TABLET PO ×2 (09:20→16:11)
[2025-03-31] MEDS: LIPASE/AMYLASE/PROTEASE 12,000 UNITS CAP 4 CAP PO ×3 (09:21→16:11)
[2025-03-31] MEDS: PREGABALIN (*CRX) 75 MG CAPSULE 150 MG PO ×2 (09:23→20:54)
[2025-03-31] MEDS: ARTIFICIAL TEARS OPHTH SOLN 15 ML BOTTLE 1 DROP EACH EYE ×2 (09:25→16:11)
[2025-03-31] MEDS: FLUTICASONE PROPIONATE 0.05% NA SPR 16 GM BTL (*BKC) 1 SPRAY NASAL ×2 (09:25→20:52)
--- NOTE | 2025-03-31 09:47 | PM.IMPN ---
Progress Note: A&P Assessment and Plan (1) Acute on chronic respiratory failure with hypoxia and hypercapnia: Code(s): J96.21 - Acute and chronic respiratory failure with hypoxia; J96.22 - Acute and chronic respiratory failure with hypercapnia Status: Acute Assessment and Plan: Patient presented with worsening SOB. She has chronic respiratory failure on 2-3 L O2 due to chronic COPD ABG on admission (03/19): 7.42/54/71 on 2L which is chronic hypoxia with hypercapnia. CXR (03/19) showing bilateral pneumonia SOB likely secondary pneumonia and COPD exacerbation. Rocephin given 03/19 and 03/20 but changed to Meropenem on 03/20. Levaquin added 03/24. Completed 5 days of Azithromycin. BCx 03/19 - Negative. MRSA negative. Legionella, mycoplasma and pneumococcal pending CT Chest (03/25) without contrast showing fibrotic changes in RUL, lingula and bilateral lower lobes. Superimposed pneumonitis cannot be excluded. Prominent pulmonary arteries noted Echo Aug 2023: EF 60-65%, Grade I diastolic dysfunction, mild RV enlargement and hypokinesis, mild valve disease and mild pulm HTN (46mmHg) WBC normal on admission but climbed to 19K (but was on Solu-Medrol). Switched to Prednisone and WBC improved initially but now climbing since 03/24. WBC now at 21K despite Levaquin and Meropenem. Leukocytosis could be related to steroids since currently on broad spectrum. She is immunosuppressed so consider atypical bacteria. Also has not been covered for MRSA. Currently on Mucinex, Anoro, Mucomyst, Pulmicort respules and Duonebs. Incentive spirometer while awake Weaned to baseline O2. Ordered CPT and flutter valve. Change Duonebs to prn and stop Mucomyst Stop Meropenem since 7 days. Wean O2 to keep SpO2 92-95%. Okay to stop tele. Add PT/OT. Hold MTX since treating PNA. Will stop steroids since not wheezing and at baseline O2 and with PNA. Add doxycycline. Recheck chest x-ray today. Continue levofloxacin and doxycycline as ordered to complete the course. Add Flonase nasal spray (2) Pneumonia: Qualifiers: Laterality: bilateral Lung location: lower lobe of lung Pneumonia type: due to unspecified organism Qualified Code(s): J18.9 - Pneumonia, unspecified organism Code(s): J18.9 - Pneumonia, unspecified organism Status: Acute Assessment and Plan: As above (3) COPD (chronic obstructive pulmonary disease): Qualifiers: COPD type: unspecified COPD Qualified Code(s): J44.9 - Chronic obstructive pulmonary disease, unspecified Code(s): J44.9 - Chronic obstructive pulmonary disease, unspecified Status: Chronic Assessment and Plan: Patient with chronic COPD with chronic resp failure on 2-3 L of home oxygen at [facility] As above (4) Diastolic congestive heart failure: Code(s): I50.30 - Unspecified diastolic (congestive) heart failure Status: Acute Assessment and Plan: CXR showed possible underlying pulmonary edema as well. Echocardiogram on 08/2023 as above. BNP 267 on admission. No clinical evidence of fluid overload. Patient with chronic diastolic CHF Continue patient's oral furosemide daily Monitor fluid status and daily weights (5) Hypomagnesemia: Code(s): E83.42 - Hypomagnesemia Status: Acute Assessment and Plan: Magnesium was 1.3 on admission and replaced. Mag normal now. Monitor periodically. (6) HTN (hypertension): Qualifiers: Hypertension type: unspecified Qualified Code(s): I10 - Essential (primary) hypertension Code(s): I10 - Essential (primary) hypertension Status: Chronic Assessment and Plan: Patient's blood pressure was reviewed on 03/27 Blood pressure remains well controlled. Will continue current medications. (7) Anemia of chronic disease: Code(s): D63.8 - Anemia in other chronic diseases classified elsewhere Status: Acute Assessment and Plan: Patient with chronic anemia. Hemoglobin has been stable here in the 10-11 range. Continue to monitor. (8) Diarrhea: Code(s): R19.7 - Diarrhea, unspecified Status: Acute Assessment and Plan: Patient with loose stools requiring Imodium. C diff PCR was negative. She received 1 dose on 03/20 but nothing since. Will stop Imodium in case diarrhea returns. Monitor for recurrent diarrhea since she has a history of C diff. (9) Osteoarthritis of bilateral glenohumeral joints: Code(s): M19.011 - Primary osteoarthritis, right shoulder; M19.012 - Primary osteoarthritis, left shoulder Status: Acute Assessment and Plan: Hold MTX until active infection has been treated appropriately. (10) Exocrine pancreatic insufficiency: Code(s): K86.81 - Exocrine pancreatic insufficiency Status: Chronic Assessment and Plan: Stable. Continue Creon (11) UTI (urinary tract infection): Code(s): N39.0 - Urinary tract infection, site not specified Status: Acute Assessment and Plan: Patient was on meropenem for ESBL cystitis on admission. Patient also presented with a midline UA here not suspicious for urinary tract infection. Abx switched from ceftriaxone to meropenem for ESBL coverage since unable to determine length of patient's therapy She has completed 7 days of meropenem and stopped. Plan Code status: Full code per patient DVT prophylaxis: SCD/Eliquis Disposition: Start PT/OT; NH resident Subjective Date/time seen: 03/31/25 09:47 Interval history: Complains of congestion. Still have cough with yellowish expectoration remains afebrile labs reviewed Review of Systems Review of Systems: All systems reviewed & are unremarkable except as noted in HPI and below Exam Narrative: GENERAL: Pleasant, in no acute distress. Well-nourished. - EYES: EOMI. Anicteric. - HENT: Moist mucous membranes. - LUNGS: Decreased air entry bilateral, scattered wheezing, rhonchi, or rales. - CARDIOVASCULAR: Regular rate and rhythm. No murmur. No JVD. - ABDOMEN: Soft, non-tender and non-distended. No palpable masses. - EXTREMITIES: No edema. Peripheral pulses 2+. Non-tender. - NEUROLOGIC: No focal neurological deficits. CN II-XII grossly intact. - PSYCHIATRIC: Awake, Alert and oriented x 3. Appropriate mood and affect. - SKIN: No rashes or lesions. Warm. - LYMPH: No cervical lymphadenopathy. Objective Data Vital Signs Vital Signs: Vital Signs - 24 hr 03/30/25 10:04 03/30/25 14:00 03/30/25 20:00 Temperature 97.2 F L Pulse Rate 76 Respiratory Rate 18 Blood Pressure 98/58 L Pulse Oximetry 95 95 100 Oxygen Delivery Nasal Cannula Nasal Cannula Oxygen Flow Rate 2 2 03/30/25 20:55 03/30/25 21:33 03/31/25 06:00 Temperature 97.5 F L 98 F Pulse Rate 77 73 77 Respiratory Rate 18 16 16 Blood Pressure 104/72 111/62 Pulse Oximetry 100 98 Oxygen Delivery Oxygen Flow Rate 03/31/25 08:13 03/31/25 08:13 03/31/25 08:20 Temperature Pulse Rate 79 76 Respiratory Rate 20 20 Blood Pressure Pulse Oximetry 94 Oxygen Delivery Nasal Cannula Oxygen Flow Rate 2 03/31/25 09:21 Temperature Pulse Rate 80 Respiratory Rate Blood Pressure Pulse Oximetry Oxygen Delivery Oxygen Flow Rate Intake/Output Intake/Output: Intake & Output 03/28/25 03/29/25 03/30/25 03/31/25 23:59 23:59 23:59 23:59 Intake Total 2367 798 816 550 Output Total 1100 1550 1500 400 Balance 6037 -152 -504 150 Meds/Results Medications: Active Medications Generic Name Dose Route Start Last Admin Trade Name Freq PRN Reason Stop Dose Admin Hydrocodone Bitart/Acetaminophen 1 tab 03/31/25 09:15 Hydrocodone/Acetaminophen (*Crx) 10-325 Mg Tablet PO QID PRN pain Albuterol/Ipratropium 3 ml 03/20/25 14:00 03/28/25 08:39 Ipratropium 0.5 Mg/Albuterol Sulfate 2.5 Mg Ampul.Neb 3 Ml INHALATION 3 ml Q6HRT PRN Administration Shortness Of Breath Albuterol/Ipratropium 3 ml 03/27/25 10:22 Ipratropium 0.5 Mg/Albuterol Sulfate 2.5 Mg Ampul.Neb 3 Ml INHALATION Q6HRT PRN Shortness Of Breath Or Wheezing Lipase/Protease/Amylase 4 cap 03/20/25 09:00 03/31/25 09:21 Lipase/Amylase/Protease 12,000 Units Cap PO 4 cap TID DOC Administration Apixaban 2.5 mg 03/20/25 09:00 03/31/25 09:20 Apixaban 2.5 Mg Tablet PO 2.5 mg BID DOC Administration Artificial Tears 1 drop 03/20/25 17:00 03/31/25 09:25 Artificial Tears Ophth Soln 15 Ml Bottle EACH EYE 1 drop BID DOC Administration Ascorbic Acid 500 mg 03/20/25 11:05 03/31/25 09:20 Ascorbic Acid 500 Mg Tablet PO 500 mg Q12HRT DOC Administration Atorvastatin Calcium 40 mg 03/20/25 18:00 03/30/25 16:59 Atorvastatin 40 Mg Tablet PO 40 mg QPM DOC Administration Bisacodyl 10 mg 03/20/25 10:56 Bisacodyl 10 Mg Suppository RECTAL DAILY PRN constipation Budesonide 0.5 mg 03/24/25 20:00 03/31/25 08:13 Budesonide Respule Neb 0.5 Mg/2 Ml Amp INHALATION 0.5 mg Q12HRT DOC Administration Bupropion HCl 75 mg 03/20/25 09:00 03/31/25 09:19 Bupropion Hcl 75 Mg Tablet PO 75 mg DAILY DOC Administration Carvedilol 3.125 mg 03/20/25 09:00 03/31/25 09:21 Carvedilol 3.125 Mg Tablet PO 3.125 mg Q12HR DOC Administration Dextrose 12.5 gm 03/19/25 12:38 Dextrose 50% 25 Gm/50 Ml Syringe IV PUSH PRN PRN Hypoglycemia Protocol Diphenhydramine HCl 25 mg 03/20/25 21:21 03/27/25 23:21 Diphenhydramine Hcl Cap 25 Mg Capsule PO 25 mg Q6H PRN Administration Itching Doxycycline Hyclate 100 mg 03/27/25 10:20 03/31/25 09:19 Doxycycline Hyclate 100 Mg Tablet PO 100 mg Q12HR DOC Administration Fish Oil 1 gm 03/30/25 09:00 03/31/25 09:20 [place] 3 Polyunsat Fatty Acids 1 Gm Cap PO 1 gm DAILY DOC Administration Fluticasone Propionate 1 spray 03/31/25 09:15 03/31/25 09:25 Fluticasone Propionate 0.05% Na Spr 16 Gm Btl (*Bkc) NASAL 1 spray Q12HR DOC Administration Furosemide 40 mg 03/20/25 09:00 03/31/25 09:26 Furosemide 40 Mg Tablet PO Not Given QAM DOC Glucagon 1 mg 03/19/25 12:38 Glucagon For Inj 1 Mg Vial IM PRN PRN Hypoglycemia Protocol Glucose 15 gm 03/19/25 12:38 Glucose Oral Gel 15 Gm Of Glucse In 37.5 Gm Tube PO PRN PRN Hypoglycemia Protocol Guaifenesin 1,200 mg 03/24/25 09:00 03/31/25 09:20 Guaifenesin 12 Hr 600 Mg Tabcr PO 1,200 mg Q12HR DOC Administration Dextrose 1,000 mls @ 100 mls/hr 03/19/25 12:38 Dextrose 5% 1,000 Ml IVPB PRN PRN Hypoglycemia Protocol Levofloxacin 750 mg 03/26/25 21:00 03/30/25 21:29 Levofloxacin 750 Mg Tablet PO 750 mg Q48H DOC Administration Magnesium Hydroxide 30 ml 03/30/25 12:28 Magnesium Hydroxide Susp 30 Ml Udc PO Q72H PRN Constipation Methotrexate 7.5 mg 03/21/25 09:00 03/21/25 09:07 Methotrexate 2.5 Mg Tab (*Chemo) PO 7.5 mg WEEKLY DOC Administration Miscellaneous Information 1 each 03/30/25 00:01 Please Renew Meropenem_. Per [employer] Procedure, It Will Discontinue If Not Renewed XX 04/29/25 00:00 CLARIFY DOC Multivitamins Therapeutic 1 tablet 03/21/25 09:00 03/31/25 09:19 Multivitamins Therapeutic Tab (*Bkc) PO 1 tablet DAILY DOC Administration Ondansetron HCl 4 mg 03/27/25 11:22 03/31/25 09:19 Ondansetron Hcl Odt 4 Mg Tablet PO 4 mg Q6H PRN Administration Nausea And Vomiting Pantoprazole Sodium 40 mg 03/20/25 11:15 03/31/25 09:19 Pantoprazole 40 Mg Tablet PO 40 mg QAM DOC Administration Polyethylene Glycol 17 gm 03/30/25 12:40 03/31/25 09:19 Polyethylene Glycol 3350 17 Gm Powd.Pack PO 17 gm QAM DOC Administration Pregabalin 150 mg 03/30/25 21:00 03/31/25 09:23 Pregabalin (*Crx) 75 Mg Capsule PO 150 mg Q12HR DOC Administration Senna 8.6 mg 03/20/25 17:00 03/23/25 08:49 Sennosides 8.6 Mg Tablet PO 8.6 mg BID DOC Administration Sodium Chloride 10 ml 03/20/25 14:00 03/31/25 06:52 Saline Lock Flush IV PUSH 10 ml Q8HR DOC Administration Sodium Chloride 10 ml 03/20/25 13:40 Saline Lock Flush IV PUSH PRN PRN Flush Sodium Chloride 20 ml 03/20/25 13:40 03/24/25 05:47 Saline Lock Flush IV PUSH 20 ml PRN PRN Administration after blood draws Trazodone HCl 50 mg 03/20/25 21:00 03/30/25 21:29 Trazodone Hcl 50 Mg Tablet PO 50 mg HS DOC Administration Umeclidinium/Vilanterol 1 puff 03/20/25 08:00 03/31/25 08:13 Umeclidinium/Vilanterol 62.5-25 Mcg Ellipta INHALATION 1 puff DAILYRT DOC Administration Radiology Results: ITS Impressions Chest X-Ray 03/24/25 09:17 IMPRESSION: Bilateral pneumonia unchanged from previous examination. Chest CT 03/25/25 15:08 IMPRESSION: 1. Fibrotic changes in the right upper lobe, lingula and both lower lobes. Superimpose pneumonitis cannot be excluded. 2. Prominent pulmonary arteries which may indicate pulmonary hypertension. 3. Right adrenal adenoma unchanged. Labs Labs: Laboratory Results - last 24 hr 03/31/25 06:32 WBC 13.9 H RBC 3.06 L Hgb 9.6 L Hct 30.9 L MCV 101.0 H MCH 31.4 MCHC 31.1 L RDW 12.7 Plt Count 270 MPV 11.6 H Immature Gran % (Auto) 1.3 H Neut % (Auto) 68.6 Lymph % (Auto) 16.8 L [place] % (Auto) 8.4 Eos % (Auto) 4.5 H Baso % (Auto) 0.4 Lymph # (Auto) 2.33 [place] # (Auto) 1.2 H Eos # (Auto) 0.6 H Baso # (Auto) 0.1 Abs Immat Gran (auto) 0.18 H Absolute Neuts (auto) 9.5 H Absolute Nucleated RBC 0.000 Nucleated RBC % 0.0 Sodium 134 L Potassium 4.0 Chloride 88 L Carbon Dioxide 39 H Anion Gap 7 BUN 27 H Creatinine 0.77 Estim Creat Clear Calc 49 Estimated GFR > 60 Glucose 154 H Calcium 8.5 Magnesium 1.7 Total Bilirubin 0.4 AST 26 ALT 19 Alkaline Phosphatase 44 Total Protein 6.5 Albumin 3.5
[2025-03-31] MEDS: HYDROcodone/acetaminophen (*CRX) 10-325 MG TABLET 1 TAB PO ×2 (12:37→21:15)
[2025-03-31] MEDS: ATORVASTATIN 40 MG TABLET PO (17:03)
[2025-04-01] VITALS (8 sets, daily range): BP systolic 106–109; BP diastolic 63–67; PULSE 64–99; RESP 16–18; TEMP 36.3–36.8; O2SAT 96–98
[2025-04-01] MEDS: SALINE LOCK FLUSH 10 ML IV PUSH (05:44)
[2025-04-01] MEDS: UMECLIDINIUM/VILANTEROL 62.5-25 MCG ELLIPTA 1 PUFF INHALATION (08:32)
[2025-04-01] MEDS: BUDESONIDE RESPULE NEB 0.5 MG/2 ML AMP INHALATION (08:32)
[2025-04-01] MEDS: PANTOPRAZOLE 40 MG TABLET PO (08:36)
[2025-04-01] MEDS: DOXYCYCLINE HYCLATE 100 MG TABLET PO (08:36)
[2025-04-01] MEDS: FUROSEMIDE 40 MG TABLET PO (08:36)
[2025-04-01] MEDS: PREGABALIN (*CRX) 75 MG CAPSULE 150 MG PO (08:36)
[2025-04-01] MEDS: APIXABAN 2.5 MG TABLET PO ×2 (08:37→16:50)
[2025-04-01] MEDS: guaiFENesin 12 HR 600 MG TABCR 1200 MG PO (08:37)
[2025-04-01] MEDS: LIPASE/AMYLASE/PROTEASE 12,000 UNITS CAP 4 CAP PO ×3 (08:37→16:50)
[2025-04-01] MEDS: OMEGA 3 POLYUNSAT FATTY ACIDS 1 GM CAP PO (08:37)
[2025-04-01] MEDS: MULTIVITAMINS THERAPEUTIC TAB (*BKC) 1 TABLET PO (08:37)
[2025-04-01] MEDS: ASCORBIC ACID 500 MG TABLET PO (08:37)
[2025-04-01] MEDS: ARTIFICIAL TEARS OPHTH SOLN 15 ML BOTTLE 1 DROP EACH EYE ×2 (08:38→16:50)
[2025-04-01] MEDS: FLUTICASONE PROPIONATE 0.05% NA SPR 16 GM BTL (*BKC) 1 SPRAY NASAL (08:38)
[2025-04-01] MEDS: HYDROcodone/acetaminophen (*CRX) 10-325 MG TABLET 1 TAB PO ×2 (08:54→13:40)
[2025-04-01 09:36] LABS: Hematocrit 31.5 % (37.0-47.0); Hemoglobin 9.8 g/dL (12.0-15.0); Immature Granulocyte Percent A 1.2 % (0-0.5); Lymphocytes Absolute Auto 2.09 K/mm3 (0.9-3.2); Mean Corpuscular HGB Conc 31.1 g/dl (32-36); Mean Corpuscular Hemoglobin 31.1 pg (26-34); Mean Corpuscular Volume 100.0 fl (80-100); Nucleated Red Blood Cells Absolute Auto 0.000 K/mm3 (0.0-0.012); Nucleated Red Blood Cells Perc 0.0 % (0.0-0.2); Platelet Count Result 284 k/mm3 (150-375); Red Blood Count 3.15 M/mm3 (4.2-5.4); White Blood Count 14.6 K/mm3 (4.5-10.0)
[2025-04-01 10:15] LABS: Alanine Aminotransferase 21 U/L (6-35); Albumin Level 3.5 g/dL (3.5-5.1); Alkaline Phosphatase 47 U/L (38-126); Anion Gap 6 mmol/L (4-12); Aspartate Amino Transferase 27 U/L (14-36); Bilirubin,Total 0.3 mg/dL (0.2-1.3); Blood Urea Nitrogen 22 mg/dL (7-17); Calcium 8.8 mg/dL (8.4-10.2); Carbon Dioxide 38 mmol/L (22-30); Chloride 91 mmol/L (98-107); Estimated CRCL calculation 45 ml/min; Estimated Glomerular Filt Rate > 60; Glucose 178 mg/dL (65-110); Magnesium 1.9 mg/dL (1.6-2.3); Potassium 4.0 mmol/L (3.4-5.0); Sodium 135 mmol/L (137-145); Total Protein 6.5 g/dL (6.3-8.2)
[2025-04-01] MEDS: ONDANSETRON HCL ODT 4 MG TABLET PO (13:40)
[2025-04-01] MEDS: IPRATROPIUM 0.5 MG/ALBUTEROL SULFATE 2.5 MG AMPUL.NEB 3 ML INHALATION (14:10)
--- NOTE | 2025-04-01 14:28 | P.DS_ITS ---
DS: Admitting Diagnosis Discharge Date 04/01/2025 Admitting Diagnosis Shortness of breath DS: Discharge Diagnosis Discharge Diagnosis (1) Acute on chronic respiratory failure with hypoxia and hypercapnia: Code(s): J96.21 - Acute and chronic respiratory failure with hypoxia; J96.22 - Acute and chronic respiratory failure with hypercapnia Status: Acute (2) Pneumonia: Qualifiers: Laterality: bilateral Lung location: lower lobe of lung Pneumonia type: due to unspecified organism Qualified Code(s): J18.9 - Pneumonia, unspecified organism Code(s): J18.9 - Pneumonia, unspecified organism Status: Acute (3) COPD (chronic obstructive pulmonary disease): Qualifiers: COPD type: unspecified COPD Qualified Code(s): J44.9 - Chronic obstructive pulmonary disease, unspecified Code(s): J44.9 - Chronic obstructive pulmonary disease, unspecified Status: Chronic (4) Diastolic congestive heart failure: Code(s): I50.30 - Unspecified diastolic (congestive) heart failure Status: Acute (5) Hypomagnesemia: Code(s): E83.42 - Hypomagnesemia Status: Acute (6) HTN (hypertension): Qualifiers: Hypertension type: unspecified Qualified Code(s): I10 - Essential (primary) hypertension Code(s): I10 - Essential (primary) hypertension Status: Chronic (7) Anemia of chronic disease: Code(s): D63.8 - Anemia in other chronic diseases classified elsewhere Status: Acute (8) Diarrhea: Code(s): R19.7 - Diarrhea, unspecified Status: Acute (9) Osteoarthritis of bilateral glenohumeral joints: Code(s): M19.011 - Primary osteoarthritis, right shoulder; M19.012 - Primary osteoarthritis, left shoulder Status: Acute (10) Exocrine pancreatic insufficiency: Code(s): K86.81 - Exocrine pancreatic insufficiency Status: Chronic (11) UTI (urinary tract infection): Code(s): N39.0 - Urinary tract infection, site not specified Status: Acute DS: Summary Hospital Course Hospital Course: # Acute on chronic respiratory failure with hypoxia and hypercapnia: Patient presented with worsening SOB. She has chronic respiratory failure on 2-3 L O2 due to chronic COPD ABG on admission (03/19): 7.42/54/71 on 2L which is chronic hypoxia with hypercapnia. CXR (03/19) showing bilateral pneumonia SOB likely secondary pneumonia and COPD exacerbation. Rocephin given 03/19 and 03/20 but changed to Meropenem on 03/20. Levaquin added 03/24. Completed 5 days of Azithromycin. BCx 03/19 - Negative. MRSA negative. Legionella, mycoplasma and pneumococcal negative CT Chest (03/25) without contrast showing fibrotic changes in RUL, lingula and bilateral lower lobes. Superimposed pneumonitis cannot be excluded. Prominent pulmonary arteries noted Echo Aug 2023: EF 60-65%, Grade I diastolic dysfunction, mild RV enlargement and hypokinesis, mild valve disease and mild pulm HTN (46mmHg) WBC normal on admission but climbed to 19K (but was on Solu-Medrol). Switched to Prednisone and WBC improved initially but now climbing since 03/24. WBC now at 21K despite Levaquin and Meropenem. Leukocytosis could be related to steroids since currently on broad spectrum. She is immunosuppressed so consider atypical bacteria. Also has not been covered for MRSA. Currently on Mucinex, Anoro, Mucomyst, Pulmicort respules and Duonebs. Incentive spirometer while awake Weaned to baseline O2. Ordered CPT and flutter valve. Change Duonebs to prn and stop Mucomyst Stop Meropenem since 7 days. Wean O2 to keep SpO2 92-95%. Okay to stop tele. Add PT/OT. Hold MTX since treating PNA. Stopped steroids since not wheezing and at baseline O2 and with PNA. Add doxycycline atypical coverage Repeat chest x-ray similar with no change. Clinically improved. Continue Flonase nasal spray Finish the course of antibiotics as outpatient basis. Three more doses of Levaquin at discharge ordered. Leukocytosis persist but stable. Repeat in 1 week # Pneumonia: See above # COPD (chronic obstructive pulmonary disease): Patient with chronic COPD with chronic resp failure on 2-3 L of home oxygen at fdc As above # Diastolic congestive heart failure: CXR showed possible underlying pulmonary edema as well. Echocardiogram on 08/2023 as above. BNP 267 on admission. No clinical evidence of fluid overload. Patient with chronic diastolic CHF Continue patient's oral furosemide daily Monitor fluid status and daily weights # Hypomagnesemia: Magnesium was 1.3 on admission and replaced. Mag normal now. Monitor periodically. # HTN (hypertension): Blood pressure remains well controlled. Will continue current medications. # Anemia of chronic disease: Patient with chronic anemia. Hemoglobin has been stable here in the 10-11 range. Continue to monitor. # Diarrhea: Patient with loose stools requiring Imodium. C diff PCR was negative. She received 1 dose on 03/20 but nothing since. Will stop Imodium in case diarrhea returns. Monitor for recurrent diarrhea since she has a history of C diff. # Osteoarthritis of bilateral glenohumeral joints: Hold MTX until active infection has been treated appropriately. # Exocrine pancreatic insufficiency: Stable. Continue Creon # UTI (urinary tract infection): Patient was on meropenem for ESBL cystitis on admission. Patient also presented with a midline UA here not suspicious for urinary tract infection. Abx switched from ceftriaxone to meropenem for ESBL coverage since unable to determine length of patient's therapy She has completed 7 days of meropenem and stopped. # Code status: Full code per patient # DVT prophylaxis: SCD/Eliquis # Disposition: Start PT/OT; [facility] Time Spent with Patient Time attestation: Total time spent providing and/or coordinating discharge services: 40 minutes Exam Narrative: GENERAL: Pleasant, in no acute distress. Well-nourished. - EYES: EOMI. Anicteric. - HENT: Moist mucous membranes. - LUNGS: Decreased air entry bilateral, scattered wheezing, rhonchi, or rales. - CARDIOVASCULAR: Regular rate and rhyth m. No murmur. No JVD. - ABDOMEN: Soft, non-tender and non-dist ended. No palpable masses. - EXTREMITIES: No edema. Peripheral puls es 2+. Non-tender. - NEUROLOGIC: No focal neurological defi cits. CN II-XII grossly intact. - PSYCHIATRIC: Awake, Alert and oriented x 3. Appropriate mood and affect. - SKIN: No rashes or lesions. Warm. - LYMPH: No cervical lymphadenopathy. DS: Data Data Completed and Pending Labs on day of discharge: Labs from last 24 hours 04/01/25 09:27 WBC 14.6 H RBC 3.15 L Hgb 9.8 L Hct 31.5 L MCV 100.0 MCH 31.1 MCHC 31.1 L RDW 12.5 Plt Count 284 MPV 11.1 H Immature Gran % (Auto) 1.2 H Neut % (Auto) 73.9 H Lymph % (Auto) 14.3 L [place] % (Auto) 6.7 Eos % (Auto) 3.6 Baso % (Auto) 0.3 Lymph # (Auto) 2.09 [place] # (Auto) 1.0 H Eos # (Auto) 0.5 H Baso # (Auto) 0.1 Abs Immat Gran (auto) 0.17 H Absolute Neuts (auto) 10.8 H Absolute Nucleated RBC 0.000 Nucleated RBC % 0.0 Sodium 135 L Potassium 4.0 Chloride 91 L Carbon Dioxide 38 H Anion Gap 6 BUN 22 H Creatinine 0.82 Estim Creat Clear Calc 45 Estimated GFR > 60 Glucose 178 H Calcium 8.8 Magnesium 1.9 Total Bilirubin 0.3 AST 27 ALT 21 Alkaline Phosphatase 47 Total Protein 6.5 Albumin 3.5 Imaging Radiologist's impression: ITS Impressions Chest X-Ray 03/19/25 11:38 IMPRESSION: Bilateral pneumonia. Underlying pulmonary edema is not excluded. Chest X-Ray 03/24/25 09:17 IMPRESSION: Bilateral pneumonia unchanged from previous examination. Chest CT 03/25/25 15:08 IMPRESSION: 1. Fibrotic changes in the right upper lobe, lingula and both lower lobes. Superimpose pneumonitis cannot be excluded. 2. Prominent pulmonary arteries which may indicate pulmonary hypertension. 3. Right adrenal adenoma unchanged. Chest X-Ray 03/31/25 11:38 IMPRESSION: Bilateral pneumonia versus pulmonary edema. Clinical correlation and follow-up advised. No change from previous examination. Discharge Plan Discharge Attending physician on discharge: Óscar Lisa Consulting providers: Fariha Thompson Discharging Clinician: Óscar Lisa Anticipated Discharge Date/Time: 04/01/25 14:33 Patient Disposition: SNF Activity: as tolerated Diet: as tolerated and diabetic Discharge Instructions: Oxygen 2-3 L /. Titrate to keep SpO2 more than 90% Follow-up with Pulmonary in 1-2 weeks. Call for appointment Low-salt diet fluid restriction less than 2 L per day Patient Language: Costa Rican Stand Alone Forms: General Discharge Information, Long Term Discharge Follow-up/Referrals: Mariano Walker MD [Primary Care Provider] - 1 Week Discharge Medications: New budesonide [Pulmicort] 0.5 mg/2 mL Suspension For Nebulization 0.5 mg inhalation Q12HRT Qty: 30 0RF levofloxacin 750 mg tablet 750 mg PO Q48H Qty: 3 0RF polyethylene glycol 3350 [Miralax] 17 gram Powder In Packet 17 g PO QAM PRN (Reason: Constipation) Qty: 30 0RF fluticasone propionate 50 mcg/actuation [place],Suspension 1 spray intranasal Q12HR Qty: 30 0RF Continued pregabalin [Lyrica] 150 mg capsule 150 mg PO BID Qty: 60 3RF guaifenesin 600 mg tablet extended release 12hr 1,200 mg PO BID bupropion HCl 75 mg tablet 75 mg PO DAILY Eliquis 2.5 mg tablet 2.5 mg PO BID Fleet Enema 19-7 gram/118 mL enema 118 ml RECTAL ONCE PRN (Reason: Constipation) furosemide 40 mg tablet 40 mg PO QAM pantoprazole [Protonix] 40 mg tablet,delayed release (DR/EC) 40 mg PO QAM albuterol sulfate 2.5 mg /3 mL (0.083 %) solution for nebulization 2.5 mg inhalation QID PRN (Reason: SOB) azelastine 137 mcg (0.1 %) spray,non-aerosol 137 mcg intranasal BID omega 8-wxy-gox-fish oil [Fish Oil] 1,000 mg (120 mg-180 mg) capsule 1 cap PO DAILY carvedilol [Coreg] 3.125 mg Tablet 3.125 mg PO BID acetaminophen 650 mg Tablet Extended Release 650 mg PO Q6H PRN (Reason: Mild Pain (Scale Score 1-4)) magnesium hydroxide [Milk of Magnesia] 400 mg/5 mL Suspension 400 mg PO Q72H PRN (Reason: Constipation) ondansetron 4 mg Tablet,Disintegrating 4 mg PO Q6H PRN (Reason: nausea and vomitting) trazodone 300 mg tablet 50 mg PO HS umeclidinium-vilanterol [Anoro Ellipta] 62.5-25 mcg/actuation blister with device 1 inh INHALATION DAILY Eucerin Intensive Repair Lotion 1 ea TOPICAL DAILY Rx Instructions: general dry skin loperamide 2 mg Capsule 2 mg PO Q12H PRN (Reason: Diarrhea) cholecalciferol (vitamin D3) 25 mcg (1,000 unit) Tablet 25 mcg PO DAILY ipratropium-albuterol 0.5 mg-3 mg(2.5 mg base)/3 mL Solution For Nebulization 3 ml INHALATION Q6H PRN (Reason: SOB) hydrocortisone 2.5 % Cream 1 applic TOPICAL QID PRN (Reason: Itching) Rx Instructions: affected areas Creon 24,000-76,000 -120,000 unit Capsule,Delayed Release(Dr/Ec) 2 cap PO TID Rx Instructions: administer with meals and/or snacks artificial tears solution Drops 1 drp OPHTHALMIC (EYE) BID atorvastatin 40 mg tablet 40 mg PO QPM diclofenac sodium 50 mg tablet,delayed release (DR/EC) 50 mg PO Q12H sodium chloride 0.9 % Parenteral Solution See Rx Instructions .ROUTE .COMPLEX Rx Instructions: one flush q24 hr hydrocodone-acetaminophen 10-325 mg tablet 1 tablet PO QID ferrous sulfate 325 mg (65 mg iron) tablet 325 mg PO TID ascorbic acid (vitamin C) 500 mg tablet 500 mg PO BID diphenhydramine HCl [Allergy Medication] 25 mg capsule 25 mg PO Q6H PRN (Reason: itching) bisacodyl 10 mg suppository 10 mg RECTAL DAILY PRN (Reason: constipation) magnesium citrate [Citroma] Solution 296 ml PO DAILY PRN (Reason: constipation) diclofenac sodium [Arthritis Pain (diclofenac)] 1 % gel 4.5 inch topical QID Rx Instructions: apply to single elbow, wrist or hand; for hand includes palm/fingers/back of hand cyanocobalamin (vitamin B-12) [B-12 DOTS] 500 mcg tablet 500 mcg PO DAILY fexofenadine [Lea Allergy] 180 mg tablet 180 mg PO DAILY multivitamin [Daily Multi-Vitamin] Tablet 1 tablet PO DAILY hydrocortisone [Preparation H Hydrocortisone] 1 % cream 1 applic topical HS PRN (Reason: itching) senna 8.6 mg capsule 8.6 mg PO BID Trexall 7.5 mg tablet 7.5 mg PO WEEKLY Patient Comments: To be given on Fridays triamcinolone acetonide 0.1 % cream 1 applic TOPICAL BID folic acid 1 mg tablet 1 mg PO DAILY Qty: 90 2RF baclofen 10 mg tablet 10 mg PO Q6H Qty: 10 0RF Discontinued meropenem 1 gram recon soln 1 g IV Q24H pantoprazole [Protonix] 40 mg tablet,delayed release (DR/EC) 40 mg PO QAM Other Ambulatory Orders: Complete Blood Count with Diff (Routine) Timeframe: 1 Week Location: Determined by Patient Ordered By: Óscar Lisa Comprehensive Metabolic Panel (Routine) Timeframe: 1 Week Location: Determined by Patient Ordered By: Óscar Lisa Date of admission: 03/20/25 11:53 Primary Care Provider: Mariano Walker Admitting Provider: Jerome Tang Attending physician on admission: Jerome Tang Condition: Stable
[2025-04-01] MEDS: NEOMYCIN/POLYMYXIN/BACITRACIN OINTMENT PACKET 1 PACKET (15:30)
[2025-04-01] MEDS: ATORVASTATIN 40 MG TABLET PO (16:50)
== END 2025-04-01 19:45 | DRG 193 ==
LOC: ANHED 13:33 → ANH3MED 14:10 → ANH3MEDSUR 04-01 14:35 → ANH3MED 04-02 09:44
PROVIDERS: Hospitalist; Internal Medicine; Nurse Practitioner Family; Nurse Practitioner Gerontology; Admitting Provider General Practice; Emergency Provider Physician Assistant; PCP Family Medicine; Visit Provider Internal Medicine
DX: J18.9 Pneumonia, unspecified organism (principal); J96.21 Acute and chronic respiratory failure with hypoxia; J96.22 Acute and chronic respiratory failure with hypercapnia; K85.90 Acute pancreatitis without necrosis or infection, unspecified; I50.32 Chronic diastolic (congestive) heart failure; N39.0 Urinary tract infection, site not specified; J44.0 Chronic obstructive pulmonary disease with (acute) lower respiratory infection; J44.1 Chronic obstructive pulmonary disease with (acute) exacerbation; I11.0 Hypertensive heart disease with heart failure; I27.21 Secondary pulmonary arterial hypertension; I73.9 Peripheral vascular disease, unspecified; D63.8 Anemia in other chronic diseases classified elsewhere; E78.5 Hyperlipidemia, unspecified; K21.9 Gastro-esophageal reflux disease without esophagitis; K86.81 Exocrine pancreatic insufficiency; N32.81 Overactive bladder; R19.7 Diarrhea, unspecified; R73.03 Prediabetes; Z20.822 Contact with and (suspected) exposure to COVID-19; M19.012 Primary osteoarthritis, left shoulder; M19.011 Primary osteoarthritis, right shoulder; M81.0 Age-related osteoporosis without current pathological fracture; F41.9 Anxiety disorder, unspecified; F03.90 Unspecified dementia, unspecified severity, without behavioral disturbance, psychotic disturbance, mood disturbance, and anxiety; F32.A Depression, unspecified; Z79.01 Long term (current) use of anticoagulants; Z87.11 Personal history of peptic ulcer disease; Z86.73 Personal history of transient ischemic attack (TIA), and cerebral infarction without residual deficits; Z99.81 Dependence on supplemental oxygen; Z98.1 Arthrodesis status; Z86.718 Personal history of other venous thrombosis and embolism; Z86.711 Personal history of pulmonary embolism; Z87.891 Personal history of nicotine dependence
CPT/HCPCS: 36415; 36600; 71045; 71046; 71250; 80048; 80053; 81003; 82375; 82805; 83050; 83605; 83735; 83880; 84145; 84484; 85018; 85025; 85027; 85610; 85730; 86738; 87040; 87449; 87493; 87637; 87641; 87899; 93005; 94640; 94667; 94668; 96365; 96367; 96368; 96372; 96375; 97161; 97165; 99285; A9270; G0378; J0456; J0696; J1956; J2185; J2919; J3475; J7512

== ENCOUNTER 2025-04-18 11:17 | Inpatient (IN) | payer MEDICARE, MEDICAID, SELFPAY ==
[2025-04-18] VITALS (34 sets, daily range): BP systolic 79–137; BP diastolic 44–100; PULSE 61–114; RESP 10–24; TEMP 36.1–38.2; O2SAT 83–100; BMI 25.4
--- NOTE | ~2025-04-18 | XR_ITS ---
XR chest port-a-cath/central Ordering provider: Jan Gutierrez MD History: 80 years Female with . post central line insertion . Comparison: March 31, 2025 FINDINGS: MEDIASTINUM: The cardiac silhouette is slightly enlarged. Congestive alee. Right central line with th e tip overlying the superior vena cava. .Prominence in the left hilum may reflect prominent pulmonary artery. LUNGS: No infiltrates, effusions or pneumothorax. OTHER: No free air under the diaphragm. IMPRESSION: Cardiomegaly with cardiac decompensation. Pneumonia with underlying fibrotic changes in the right upper and both lower lobes. Follow-up advised . Reviewed, dictated and finalized at location A. IMPRESSION: Cardiomegaly with cardiac decompensation. Pneumonia with underlying fibrotic changes in the right upper and both lower lo bes. Follow-up advised.
--- NOTE | ~2025-04-18 | CT_ITS ---
EXAMINATION: CT abdomen pelvis w con DATE: 04/23/2025 13:13 INDICATION: Right lower quadrant abdominal pain TECHNIQUE: Computed tomography (CT) of the abdomen and pelvis was performed with 100 cc Omnipaque 350 intravenous contrast. The dose-length product was 872.00 mGy-cm. Automated exposure control and iterative reconstruction technique were employed. COMPARISON: CT dated 08/16/2023 FINDINGS: There is acute diverticulitis of the sigmoid colon with moderate surrounding phlegmonous ch taylor. There is reactive hyperemia of the adjacent bladder wall. There is a small fluid collection wit h gas adjacent to the sigmoid colon, axial image 158, suspicious for abscess. No evidence for diverti culitis. Nonobstructive bowel pattern. No significant vascular abnormality. There is patchy consolidation in the lung bases, suspicious for pneumonia. No significant pleural or pericardial effusion. Heart size normal. Status post cholecystectomy with expected prominence of the bile ducts. There are calcified granulomas of the spleen. The pancreas and left adrenal gland are unr emarkable. There is a 1.4 cm right adrenal mass, most likely benign adenoma statistically. IMPRESSION: 1. Acute sigmoid diverticulitis with probable small peridiverticular abscess measuring 1.9 x 0.8 cm. 2: Patchy bibasilar airspace consolidation, consistent with pneumonia. Reviewed, dictated and finalized at location A. IMPRESSION: 1. Acute sigmoid diverticulitis with probable small peridiverticular abscess me asuring 1.9 x 0.8 cm. 2: Patchy bibasilar airspace consolidation, consistent with pneumonia.
--- NOTE | ~2025-04-18 | XR_ITS ---
XR chest 1V portable 04/23/2025 09:53 Indication: Pneumonia Procedure: AP portable chest Comparison: Comparison to multiple prior studies sequentially, with oldest reviewed study dated 03/19. Findings: Patchy bilateral airspace disease is unchanged. There is coarse superimposed interstitial f ibrosis. Cardiomegaly. Atherosclerosis and ectasia of the aorta. Mild scoliosis. No significant inter destiny change from prior examinations allowing for technique. Impression: 1: Stable chest. Chronic interstitial lung disease with superimposed consolidation particularly in th e right upper and left lower lobe. Cannot exclude superimposed atypical pneumonia. Reviewed, dictated and finalized at location A. Impression: 1: Stable chest. Chronic interstitial lung disease with superimposed consolidat ion particularly in the right upper and left lower lobe. Cannot exclude superim posed atypical pneumonia.
--- NOTE | ~2025-04-18 | CT_ITS ---
EXAMINATION: CT brain wo con DATE: 04/18/2025 18:13 INDICATION: PUPILS UNEQUAL . TECHNIQUE: Computed tomography (CT) of the head was performed without intravenous contrast. The mA wa s adjusted according to patient size. Iterative reconstruction technique was employed. The dose-lengt h product was 756.67 mGy-cm. COMPARISON: 05/10/2024. FINDINGS: No acute intracranial hemorrhage or extra-axial fluid collection. No hydrocephalus, mass, or herniation. No acute ischemic infarct. Unremarkable dural venous sinus attenuation. No acute osseous abnormality. Aerated secretions in the right posterior ethmoid sinus and right sphenoid sinus, the remaining aerat ed spaces are clear. Moderate atrophy and chronic white matter change. Atherosclerotic intracranial calcification. Bilater al lens replacements. Bilateral old basal ganglia lacunar infarcts. Old focal left cerebellar infarct . IMPRESSION: No acute intracranial process. Reviewed, dictated and finalized at location K.
--- NOTE | ~2025-04-18 | CT_ITS ---
CT diagnostic chest wo con Ordering provider: Jan Gutierrez MD History: 80 years Female with . Dyspnea . Comparison: March 25, 2025 Technique: CT chest without IV contrast.Radiation reduction technique utilized.The dose-length produc t was 448.38 mGy-cm. FINDINGS: VISUALIZED THORACIC INLET: Normal. MEDIASTINUM: Aorta/coronary arteries: Mild atheromatous disease. Heart/other: The heart is slightly enlarged. Prominent pulmonary arteries which is suggestive of pul monary hypertension. Lymph nodes: Precarinal lymph node is seen measuring 1.1 cm. Lymph nodes seen in the right paratrache al area which measures 1.2 cm. Possible left hilar adenopathy is not excluded. Contrast enhanced CT is advised. Narrowing of the reese n bronchi is seen suggestive of bronchomalacia. LUNGS: Fibrotic changes seen in the lingula with possible superimposed pneumonia. Left lower lobe pne umonia is also seen. Fibrotic changes seen in the right upper lobe possible superimposed infection. F ollow-up advised. Dependent atelectatic changes seen in the right lower lobe. No definite pulmonary n odules or masses. No effusions. No pneumothorax. VISUALIZED UPPER ABDOMEN: Cyst seen in the right kidney midpole. Status post cholecystectomy. Right a drenal adenoma unchanged. Otherwise, the visualized upper abdomen is normal. MUSCULOSKELETAL: Soft tissues: The superficial soft tissues are normal. Bones: Age appropriate degenerative changes of the spine. IMPRESSION: 1. Fibrotic changes with possible superimposed pneumonia in the lingula. 2. Pneumonia in the left lower lobe. 3. Fibrotic changes in the right upper lobe with superimposed infection is not excluded. 4. Prominent pulmonary artery suggestive of pulmonary hypertension. 5. Narrowing of the main bronchi which may indicate bronchomalacia. 6. Right adrenal adenoma unchanged. Reviewed, dictated and finalized at location A.
--- NOTE | 2025-04-18 11:30 | ECG_ITS ---
Test Date: 2025-04-18 11:35:48 Measurements Intervals [place] Rate: 61 P: 18 ID: 170 QRS: 2 QRSD: 93 T: 29 QT: 337 QTc: 340 Interpretive Statements SINUS RHYTHM LOW QRS VOLTAGE IN PRECORDIAL LEADS [QRS DEFLECTION < 1.0 mV IN CHEST LEADS] NONSPECIFIC T-WAVE ABNORMALITY BORDERLINE ECG Compared to ECG 03/19/2025 09:29:07 NO SIGNIFICANT CHANGE Electronically Signed On 04-18-2025 14:20:13 CDT by Mariano Mcmillan M.D.
--- OUTSIDE RECORDS SUMMARY | 2025-04-18 11:51 | XMS_ITS | Encounter Summary ---
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
--- OUTSIDE RECORDS SUMMARY | 2025-04-18 11:51 | XMS_ITS | Referral Summary ---
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 ADVANTAGE [facility] MEDICARE [facility] Address: [address] [address] [place] [address] [employer] [facility] MEDICARE ADVANTAGE [employer] Advance Directives For more information, please contact: [phone] Documents on File Type Date Recorded Patient Coal Trimmer Expl anation ADVANCE DIRECTIVE 02/09/2013 12:00 AM GREYSON Elizondo OF HEALTHCARE ECONOMICS CONSULTANT FINANCIAL/MEDICAL Care Teams Pre Owned Sales Manager Relationship Specialty Start Date End Date Mack Vanegas DO PCP - General Internal Medicine 03/07/19
--- OUTSIDE RECORDS SUMMARY | 2025-04-18 11:51 | XMS_ITS | Data Portability ---
Author Organization [facility] Address [address] [place] [address] Assessment No assessment recorded. Plan of Treatment Reminders Order Date Submit Date Provider Last Modified By Organization Details Last Modified Time Details Appointments None recorded. Lab None recorded. Referral None recorded. Procedures None recorded. Surgeries None recorded. Imaging None recorded. Medication Orders duloxetine 60 mg capsule,del ayed release 2014 015 [email or web address] [id number], [address], [id number], 5 23:27:59 albuterol sulfate HFA 90 mcg/actuati on aerosol inhaler 2014 015 [email or web address] [facility] #[id number], [address], [id number], 5 23:27:59 Patient TargetsNo targets recorded. Patient Instructions Encounter Date Encounter Id Patient Instructions Last Modified By Organization Details Last Modified Time 12/02/2014 [id number] I was present an d available in the Family Medicine clinic to discuss this patient's care during the appointment. I agree with the resident's assessment and plan as documented. Becky Moreno MD [email or web address] Not available 12/04/2014 23:27:59 Reason for Referral None Reported. Results Created Date Observation Date Name Description Value Unit Range Abnormal Flag Note LastModifiedBy Organization Detail LastModifiedTime 11/18/19 16 01/14/2014 imagi ng/di zebos tic resul t No observ ation record ed. BARCODE Not Available 2015 18:54:58 Result Notes None recorded. Problems Name Problem SNOMED Code Status Onset Date Resolution Date Notes Provider Name and Address Organization Details Recorded Time Chronic low back pain 387038092 Active Gi Lang null, [place] [facility] 5 13:24:15 Hypertensive disorder 70303738 Active Gi Lang null, [facility] - [facility] 5 13:24:15 Gastroesophage al reflux disease 696238203 Active Andria Vanessa null, [place] - [facility] 5 16:29:48 Problem Notes None [...] index (BMI) Body height Body temperature Systolic And Diastolic Provider Name and Address Organization Details Last Updated DateTime 5 22659.8 8764 g 80 /min 31.5 kg/m2 157.48 cm 97.8 [degF] 158/94 mm[Hg] Ranulfo Narvaez MA [place] - [facility] [...] SNOMED-CT Code Diagnosis ICD10 Code Diagnosis Note [id number] MD Sydnie Weaver FP (ANIBAL 300) [address] [facility] [place] [address] 12/02/2014 12:13:36 12/02/2014 23:17:33 Chronic pain syndrome 091656705 No narcotics from our office due to poor compliance . Will continue Duloxetine at max dose. She refuses follow up with psychiatry . No SI/HI. Insomnia 272309526 Stabl e. Patient asks for increase in trazodone. Denied based on prior history. Counselled on sleep hygiene and melatonin use as needed. She expressed understand ing. Dyspnea 642252695 Histor y of COPD. Based on what [...] MEDICARE OR MEDICARE REPLACEMENT PRIMARY) Gabbi Champagne [id number] Gabbi Champagne 06/17/2016 1 [place]) Gabbi Champagne [id number] Gabbi Champagne 06/17/2016 [place] [facility] Gabbi Champagne [id number] Gabbi Champagne OBGyn Episode No OBEpisode recorded.
--- OUTSIDE RECORDS SUMMARY | 2025-04-18 11:51 | XMS_ITS | Clinical Summary ---
Author Organization [facility] Address [address] [place] [address] Care Team Providers Care Hand Frame Surgical Elastic Knitter Name Role Phone PastoradruMack montanez DO Primary Care Provider [phone]- [phone] Source Comments [facility],non-owned Affiliates and Associated Physician Practices is amultiple site organization consisting of ambulatory clinics and hospital sitesin [place], [place], [place] and [place]. This disclosure is being madepursuant to the Care Everywhere program and may not contain all information available regarding this patient. Last updated 18.[employer] [facility] Allergies Active Allergy Reactions Criticality Noted Date [...] 40 MG tablet 11/05/2024 Active HYDROcodone-pool taminophen (Donna) 10-325 MG tablet 11/22/2024 Active albuterol-iprat ropium (Duo-Neb) 0.5-2.5 (3) MG/3ML nebulizer solution 10/21/2024 Active meloxicam (Mobic) 15 MG tablet 10/28/2024 Active ondansetron (Zofran) 4 MG tablet 11/01/2024 Active pantoprazole EC (Protonix) 40 MG tablet 10/30/2024 Active tetracycline (Achromycin; Sumycin) 500 MG capsule 11/22/2024 Active traZODone (Desyrel) 50 MG tablet 11/22/2024 Active triamcinolone acetonide (Kenalog) 0.1 % cream 09/30/2024 Active Active Problems No known active problems Encounters Date Type Department Care Team Description 03/05/2025 1:00 PM CDT Office Visit [facility] - Family Medicine [address] [place] [id number] Abiodun Garcia MD Osteoarthritis of right glenohumeral [...] on file 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 Gender Identity Not on file Sexual Orientation [...] Description 05/26/2025 1:00 PM CDT Office Visit [facility] - Pulmonology [address] [place] [address] [place] [address] Priyank Larsen MD [address] [place] [address] [address] [facility] [place] [address] Health Maintenance Due Date Last Done Comments BONE DENSITY TESTING 1945 MEDICARE AWV 12 MONTHS 1945 DTAP/TDAP/TD VACCINES (1 - Tdap) 01/02/1963 PNEUMOCOCCAL VACCINE 50+ (1 of 1 - PCV) 01/02/1994 ZOSTER VACCINE (1 of 2) 01/02/1994 Respiratory Syncytial Virus (RSV) Vaccine Pt: or over 60 yrs (1 - 1-dose 75+ series) 01/02/2019 COVID-19 VACCINE ( - season) 2024 09/15/2022, 09/16/2021, 11/19/2020, Additional history exists INFLUENZA VACCINE (#1) 2025 3, 07/18/2022, 08/19/2021, Additional history exists DEPRESSION SCREENING [...] Procedure Name Priority Date/Time Associated Diagnosis Comments SD DRAIN INJ MAJOR JOINT BURSA W US Routine 03/05/2025 2:21 PM CDT Osteoarthritis of right glenohumeral joint from Last 3 Months Results * SD DRAIN INJ MAJOR JOINT BURSA W US [...] Result from Last 3 Months Insurance MEDICARE [facility] MEDICARE [facility] Care Teams Hand Frame Surgical Elastic Knitter Relationship Specialty Start Date End Date Mack Vanegas DO [address] [place] [phone] PCP - General Internal Medicine 11/27/24
--- OUTSIDE RECORDS SUMMARY | 2025-04-18 11:51 | XMS_ITS | Clinical Summary ---
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 Gender Identity Not on file Sexual Orientation [...] vaccine 65+ Completed 018, 07/09/2015, 07/28/2010 Insurance IDMS [facility] MEDICARE ADVANTAGE [facility] MEDICARE [place] [facility] MEDICARE ADVANTAGE [employer] Advance Directives For more information, please contact: [phone] Documents on File Type Date Recorded Patient Incident Response Manager Expl anation ADVANCE DIRECTIVE 02/09/2013 12:00 AM GREYSON Elizondo OF CHRISTIAN SCIENCE READER FINANCIAL/MEDICAL Care Teams Proposal Consultant Relationship Specialty Start Date End Date Makc Vanegas DO PCP - General Internal Medicine 03/07/19
[2025-04-18 12:08] LABS: Hematocrit 28.1 % (37.0-47.0); Hemoglobin 8.5 g/dL (12.0-15.0); Immature Granulocyte Percent A 1.5 % (0-0.5); Lymphocytes Absolute Auto 2.61 K/mm3 (0.9-3.2); Mean Corpuscular HGB Conc 30.2 g/dl (32-36); Mean Corpuscular Hemoglobin 30.5 pg (26-34); Mean Corpuscular Volume 100.7 fl (80-100); Nucleated Red Blood Cells Absolute Auto 0.000 K/mm3 (0.0-0.012); Nucleated Red Blood Cells Perc 0.0 % (0.0-0.2); Platelet Count Result 320 k/mm3 (150-375); Red Blood Count 2.79 M/mm3 (4.2-5.4); White Blood Count 20.2 K/mm3 (4.5-10.0)
[2025-04-18] MEDS: SODIUM CHLORIDE 0.9% IV 1,000 ML 999 ML (12:16)
[2025-04-18] MEDS: STAT BOLUS COMMUNICATION ORDER 2367 ML IV CONT (12:17)
[2025-04-18 12:18] LABS: Add Urine Microscopic? NO; Appearance Urine Clear (Clear); Glucose Urine UA Negative (Negative); Leukocyte Esterase Ur Negative LEU/UL (Negative); Nitrate Urine Negative (Negative); Specific Grav Ur 1.012 (1.001-1.035)
[2025-04-18 12:27] LABS: Alveolar/Arterial O2 Gradient 7.6 mmHg; Fractional Inspired Oxygen 32 %; HCO3 ABG 30.6 mEq/l (22.0-26.0); Oxygen Content ABG 11.6 %vol (16.0-22.0); Oxygen Saturation ABG 98.5 % (95.0-100.0); PO2 ABG 142.9 mmHg (80.0-100.0); PO2 FiO2 Ratio Arterial Blood 4.47 %
--- NOTE | 2025-04-18 12:29 | ED_ITS ---
HPI - General Adult General Chief complaint: Altered Mental Status Stated complaint: ams History of Present Illness HPI narrative: This is an 80-year-old female with history of chronic respiratory failure, COPD, CHF and recurrent pneumonia presenting for altered mental status. Per the correction she has been altered since this morning. EMS was called she was found to be hypoxic in the early s. She was alert to pain only. She was given a breathing treatment, 1 L normal saline then brought to the hospital for evaluation. Patient can provide no information to got a workup. Related Data Home Medications ?Medication ?Instructions ?Recorded ?Confirmed ?Last Taken ?Type acetaminophen 650 mg 650 mg PO Q6H PRN Mild Pain (Scale 10/09/21 03/19/25 Unknown History tablet,extended release Score 1-4) carvedilol 3.125 mg tablet (Coreg) 3.125 mg PO BID 10/09/21 03/19/25 03/18/25 History magnesium hydroxide 400 mg/5 mL 400 mg PO Q72H PRN Constipation 10/09/21 03/19/25 Unknown History oral suspension (Milk of Magnesia) ondansetron 4 mg disintegrating 4 mg PO Q6H PRN nausea and 10/09/21 03/19/25 Unknown History tablet vomitting trazodone 300 mg tablet 50 mg PO HS 10/09/21 03/19/25 03/18/25 History apixaban 2.5 mg tablet (Eliquis) 2.5 mg PO BID 01/12/23 03/19/25 03/18/25 History bupropion HCl 75 mg tablet 75 mg PO DAILY 01/12/23 03/19/25 03/18/25 History furosemide 40 mg tablet 40 mg PO QAM 01/12/23 03/19/25 03/18/25 History guaifenesin 600 mg tablet, 1,200 mg PO BID 01/12/23 03/19/25 03/18/25 History extended release 12 hr pantoprazole 40 mg tablet,delayed 40 mg PO QAM 01/12/23 03/19/25 03/18/25 History release (Protonix) sodium phosphates 19 gram-7 118 ml RECTAL ONCE PRN Constipation 01/12/23 03/19/25 Unknown History gram/118 mL enema (Fleet Enema) umeclidinium 62.5 mcg-vilanterol 1 inh inhalation DAILY 08/16/23 03/19/25 Unknown History 25 mcg/actuation powdr for inhalation (Anoro Ellipta) albuterol sulfate 2.5 mg/3 mL 2.5 mg inhalation QID PRN SOB 04/18/24 03/19/25 Unknown History (0.083 %) solution for nebulization azelastine 137 mcg (0.1 %) nasal 137 mcg intranasal BID 04/18/24 03/19/25 03/18/25 History spray omega 1-umo-vsg-fish oil 1,000 mg 1 cap PO DAILY 04/18/24 03/19/25 03/18/25 History (120 mg-180 mg) capsule (Fish Oil) artificial tears solution eye drops 1 drp ophthalmic (eye) BID dry eyes 04/21/24 03/19/25 03/18/25 History cholecalciferol (vitamin D3) 25 25 mcg PO DAILY 04/21/24 03/19/25 03/18/25 History mcg (1,000 unit) tablet emollient combination no.110 1 ea topical DAILY 04/21/24 03/19/25 Unknown History (Eucerin Intensive Repair lotion) hydrocortisone 2.5 % topical cream 1 applic topical QID PRN Itching 04/21/24 03/19/25 Unknown History ipratropium 0.5 mg-albuterol 3 mg 3 ml inhalation Q6H PRN SOB 04/21/24 03/19/25 03/18/25 History (2.5 mg base)/3 mL nebulization soln [id number] 2 cap PO TID 04/21/24 03/19/25 03/18/25 History 24,000-76,000-120,000 unit capsule,delayed rel (Creon) loperamide 2 mg capsule 2 mg PO Q12H PRN Diarrhea 04/21/24 03/19/25 Unknown History ascorbic acid (vitamin C) 500 mg 500 mg PO BID 03/19/25 03/19/25 03/18/25 History tablet atorvastatin 40 mg tablet 40 mg PO QPM 03/19/25 03/19/25 03/18/25 History bisacodyl 10 mg rectal suppository 10 mg RECTAL DAILY PRN constipation 03/19/25 03/19/25 Unknown History cyanocobalamin (vitamin B-12) 500 500 mcg PO DAILY 03/19/25 03/19/25 03/18/25 History mcg tablet (B-12 DOTS) diclofenac sodium 1 % topical gel 4.5 inch topical QID 03/19/25 03/19/25 Unknown History (Arthritis Pain (diclofenac)) diclofenac sodium 50 mg 50 mg PO Q12H 03/19/25 03/19/25 03/18/25 History tablet,delayed release diphenhydramine HCl 25 mg capsule 25 mg PO Q6H PRN itching 03/19/25 03/19/25 Unknown History (Allergy Medication) ferrous sulfate 325 mg (65 mg 325 mg PO TID 03/19/25 03/19/25 03/18/25 History iron) tablet fexofenadine 180 mg tablet 180 mg PO DAILY 03/19/25 03/19/25 03/18/25 History (Lea Allergy) hydrocodone 10 mg-acetaminophen 1 tablet PO QID 03/19/25 03/19/25 03/18/25 History 325 mg tablet hydrocortisone 1 % topical cream 1 applic topical HS PRN itching 03/19/25 03/19/25 Unknown History (Preparation H Hydrocortisone) magnesium citrate (Citroma oral 296 ml PO DAILY PRN constipation 03/19/25 03/19/25 Unknown History solution) methotrexate sodium 7.5 mg tablet 7.5 mg PO WEEKLY 03/19/25 03/19/25 03/14/25 History (Trexall) multivitamin (Daily Multi-Vitamin 1 tablet PO DAILY 03/19/25 03/19/25 03/18/25 History tablet) sennosides 8.6 mg capsule (senna) 8.6 mg PO BID 03/19/25 03/19/25 Unknown History sodium chloride 0.9 % See Rx Instructions .Route .COMPLEX 03/19/25 03/19/25 03/18/25 History triamcinolone acetonide 0.1 % 1 applic topical BID 03/19/25 03/19/25 03/18/25 History topical cream Allergies Allergy/AdvReac Type Severity Reaction Status Date / Time ceftriaxone (From Rocephin) Allergy Intermediate Rash Verified 04/18/25 11:39 Sulfa (Sulfonamide Allergy Intermediate Rash Verified 04/18/25 11:39 Antibiotics) morphine AdvReac Mild Hallucinati Verified 04/18/25 11:39 ng [facility] Past Medical History Medical History Pulmonary embolism (06/2021) Pulmonary arterial hypertension Chronic interstitial lung disease Overactive bladder Peripheral vascular disease Cerebrovascular accident Anemia of chronic disease Clostridium difficile diarrhea Prediabetes Hyperlipidemia Hypertension History of peptic ulcer Gastroesophageal reflux disease Chronic respiratory failure with hypoxia and hypercapnia On 2 to 3 L nasal cannula. Chronic obstructive pulmonary disease Diastolic congestive heart failure Pneumonia due to 2019-nCoV (06/11/21) Exocrine pancreatic insufficiency Migraine Herniated disc Osteoporosis Anxiety Depression Arthritis GI bleed Pancreatitis Emphysema of lung Dementia Surgical History Surgical History History of neck surgery (2001) History of tonsillectomy History of bladder suspension procedure History of lumbar fusion x2 History of hysterectomy History of tubal ligation History of cholecystectomy History of cardiac cath History of vascular surgery Left lower extremity. Family History Family History Father Family history of Parkinson's disease Sibling Patient's brother is in good health Mother Family history of chronic obstructive pulmonary disease Family history of pancreatic cancer Social History Social History Social History: Surrogate decision maker: Stefanie Finney, granddaughter. Code status: Full code. Smoking packs per day: 1 Smoking cigarettes per day: 20.0 Years smoked: 30 Smoking pack-years: 30.00 Smoking status: Former smoker Second hand tobacco smoke exposure: Yes Alcohol intake: never Substance use: never Substance use type: does not use Do You Feel Safe in your Home?: Yes Lack of Transportation: No Lack of Food: Never True Current Housing: I Have Housing Concerned About Future Housing: No Difficulty Paying Gas/Electric Bills: No Difficulty Paying for Meds: No Currently Unemployed: No Education: High School Diploma/GED Difficulty w/ Childcare or Family Care: No Living arrangements: correction Additional living arrangements comments: Resident of [facility]. Additional occupation/education comments: Retired. Spiritual care concerns: No Exam 2 Narrative: APPEARANCE: Alert to pain only Head: atraumatic. 2 mm and equal reactive EYES: EOMI, NOSE: Atraumatic NECK: Trachea midline RESPIRATORY: Shallow respirations, diffuse rhonchi, wheezing CARDIOVASCULAR: Regular rhythm, no peripheral edema ABDOMINAL: Soft nontender MUSCULOSKELETAl: No obvious deformities NEURO: Response to pain SKIN:: Warm, dry. Normal color PSYCHIATRIC: Unresponsive Course Vital Signs Vital signs: Vital Signs Temperature 98.1 F 04/18/25 11:18 Pulse Rate 64 04/18/25 11:18 Respiratory Rate 24 H 04/18/25 11:18 Blood Pressure 87/52 L 04/18/25 11:18 Pulse Oximetry 95 04/18/25 11:18 Oxygen Delivery Nasal Cannula 04/18/25 11:18 Oxygen Flow Rate 3 04/18/25 11:18 Temperature 97.0 F L 04/18/25 12:18 Pulse Rate 74 04/18/25 14:31 Respiratory Rate 12 04/18/25 14:31 Blood Pressure 94/62 L 04/18/25 14:31 Pulse Oximetry 100 04/18/25 14:31 Oxygen Delivery Nasal Cannula 04/18/25 12:19 Oxygen Flow Rate 3 04/18/25 12:19 Procedures Central Line Placement Right IJ: Central Line Date: 04/18/25 Discussed w/ the patient/family/POA,the placement of a central venous catheter, including its clinical necessity/indication & associated potential risks, benifits and alternatives.: Yes The patient/family/POA understand(s) and acknowledge(s) the need to proceed with central venous catheter insertion as an important element of the patient's clinical management.: Yes Performed Emergently - Given emergent patient condition, temporal constraints may have precluded informed consent.: Yes Time Out Performed: Yes Patient Placed on Monitor/Pulse Ox: Yes Max. Sterile Barrier Technique: Caps, large sterile sheet and hand hygiene Central Line Prep: 2% chlorhexidine scrub Technique: US-Guided Local Anesthetic: lidocaine 1% Amount of anesthesia used (mL): 3 Ultrasound Used for Placement: Yes Central Line Lumen Inserted: triple Post Procedure: sutured in place, good blood return and all ports aspirated, flushed, capped Post Procedure X-Ray: tip of catheter in good position and no pneumothorax seen Patient Tolerated Procedure: well Complications: none Medical Decision Making MDM Narrative Medical decision making narrative: -Course: 80-year-old female presenting with hypotension hypoxia and altered mental status. Family was called to discuss goals of care. She is modified code with no CPR no intubation but medications okay. The daughter recommended Narcan as the patient has a history of multiple opiate overdoses. After receiving Narcan the patient mental status improved. She did require 1 more dose of Narcan while in the ED. She received 1 hour breathing treatment. Full sepsis workup obtained. Patient given 30 cc/kilogram bolus. Antibiotics were delayed as there was some discussion of pursuing comfort measures only given the patient's recurrent pneumonia and chronic hypoxic respiratory failure. Once this is was made to pursue aggressive management antibiotics were started including meropenem doxycycline and vancomycin as she did not respond to typical antibiotics on last admission. The patient's mental status improved she will be placed on BiPAP for her hypercarbic respiratory failure. Despite 30 cc/kilogram bolus patient was persistently hypotensive. A right IJ central catheter was placed without complication. Patient started on low-dose nor epi. White count elevated at 20. Hemoglobin 8.5 which is 1 point lower than it was 2 weeks ago. Patient has an FRANKIE with creatinine 1.5 baseline of 0.8. ABG shows acute on chronic hypercarbic respiratory failure. CT showed was a pulmonary fibrosis with possible superimposed pneumonia Viral swabs pending and will be followed by primary team. Patient will be admitted the hospital for further management of her PNA. -DDX includes but is not limited to: Pneumonia, COPD, CHF sepsis UTI viral syndrome -Co-morbidities complicating care: COPD, CHF, chronic respiratory failure Independent EKG interpretation: Rhythm [sinus], Rate [61], Concrete -[normal], LA -[normal], QRS [narrow], QTC [normal], T waves -[negative for concerning inversions], ST Segments - [Negative for concerning elevations] Final interpretations: [Normal Sinus Rhythm] Vital Signs Vital Signs: Vital Signs Temperature 98.1 F 04/18/25 11:18 Pulse Rate 64 04/18/25 11:18 Respiratory Rate 24 H 04/18/25 11:18 Blood Pressure 87/52 L 04/18/25 11:18 Pulse Oximetry 95 04/18/25 11:18 Oxygen Delivery Nasal Cannula 04/18/25 11:18 Oxygen Flow Rate 3 04/18/25 11:18 Temperature 97.0 F L 04/18/25 12:18 Pulse Rate 74 04/18/25 14:31 Respiratory Rate 12 04/18/25 14:31 Blood Pressure 94/62 L 04/18/25 14:31 Pulse Oximetry 100 04/18/25 14:31 Oxygen Delivery Nasal Cannula 04/18/25 12:19 Oxygen Flow Rate 3 04/18/25 12:19 Lab Data 04/18/25 11:57 04/18/25 11:57 Labs: Lab Results 04/18/25 04/18/25 04/18/25 Range/Units 11:56 11:57 12:07 WBC 20.2 H (4.5-10.0) K/mm3 RBC 2.79 L (4.2-5.4) M/mm3 Hgb 8.5 L (12.0-15.0) g/dL Hct 28.1 L (37.0-47.0) % MCV 100.7 H (80-100) fl MCH 30.5 (26-34) pg MCHC 30.2 L (32-36) g/dl RDW 13.7 (11.5-14.5) % Plt Count 320 (150-375) k/mm3 MPV 10.8 H (7.4-10.4) fl Immature Gran % (Auto) 1.5 H (0-0.5) % Neut % (Auto) 77.4 H (45.5-73.1) % Lymph % (Auto) 12.9 L (18.3-44.2) % [place] % (Auto) 6.7 (2.6-8.5) % Eos % (Auto) 1.4 (0-4.4) % Baso % (Auto) 0.1 L (0.2-1.2) % Lymph # (Auto) 2.61 (0.9-3.2) K/mm3 [place] # (Auto) 1.4 H (0.1-0.6) K/mm3 Eos # (Auto) 0.3 (0-0.3) K/mm3 Baso # (Auto) 0.0 (0.0-0.1) K/mm3 Abs Immat Gran (auto) 0.30 H (0.00-0.031) K/mm3 Absolute Neuts (auto) 15.6 H (1.3-6.7) K/mm3 Absolute Nucleated RBC 0.000 (0.0-0.012) K/mm3 Nucleated RBC % 0.0 (0.0-0.2) % PT 16.3 H (11.1-14.7) Seconds INR 1.3 APTT 49.0 H (22.3-36.8) Seconds Sodium 135 L (137-145) mmol/L Potassium 3.7 (3.4-5.0) mmol/L Chloride 96 L (98-107) mmol/L Carbon Dioxide 32 H (22-30) mmol/L Anion Gap 7 (4-12) mmol/L BUN 26 H (7-17) mg/dL Creatinine 1.50 H (0.7-1.0) mg/dL Estim Creat Clear Calc Not Reportable Estimated GFR 33 L (59 - ) Glucose 85 (65-110) mg/dL Calcium 7.4 L (8.4-10.2) mg/dL Total Bilirubin 0.2 (0.2-1.3) mg/dL AST 26 (14-36) U/L ALT 15 (6-35) U/L Alkaline Phosphatase 43 (38-126) U/L Troponin I < 0.012 (0.000-0.034) ng/mL C-Reactive Protein 2.0 H (<1.0) mg/dL Total Protein 6.1 L (6.3-8.2) g/dL Albumin 3.2 L (3.5-5.1) g/dL Lipase 36 (23-300) U/L Urine Color Yellow (Yellow) Urine Appearance Clear (Clear) Urine pH 5.0 (5.0-9.0) Ur Specific [place] 1.012 (1.001-1.035) Urine Protein Negative (Negative) mg/dL Urine Glucose (UA) Negative (Negative) mg/dL Urine Ketones Negative (Negative) mg/dL Ur Blood (Man) Negative (Negative) Urine Nitrate Negative (Negative) Urine Bilirubin Negative (Negative) Urine Urobilinogen 0.2 (<2.0) mg/dL Leukocyte Esterase Rfl Negative (Negative) DENTON/UL ABG Data ABG results: 04/18/25 12:19 Puncture Site Right radial ABG pH 7.281 L* ABG pCO2 66.4 H* ABG pO2 142.9 H ABG PO2/FiO2 Ratio 4.47 ABG HCO3 30.6 H ABG O2 Saturation 98.5 ABG O2 Content 11.6 L ABG Base Excess 3.1 A-a Gradient 7.6 Oxyhemoglobin 97.5 Total Hemoglobin 8.2 L O2 Delivery Device Nasal cannula O2 Liters/Min 3.0 FiO2 32 Critical Care Time Critical Care Time Critical Care Time: Yes Total Critical Care Time: 35 Discharge Plan Discharge Clinical Impression: PNA (pneumonia), Septic shock, Acute hypercapnic respiratory failure Patient Disposition: Still a Patient Condition: Guarded Prognosis Patient Language: Kenyan Prescriptions: No Action pregabalin [Lyrica] 150 mg capsule 150 mg PO BID Qty: 60 3RF guaifenesin 600 mg tablet extended release 12hr 1,200 mg PO BID bupropion HCl 75 mg tablet 75 mg PO DAILY Eliquis 2.5 mg tablet 2.5 mg PO BID Fleet Enema 19-7 gram/118 mL enema 118 ml RECTAL ONCE PRN (Reason: Constipation) furosemide 40 mg tablet 40 mg PO QAM pantoprazole [Protonix] 40 mg tablet,delayed release (DR/EC) 40 mg PO QAM albuterol sulfate 2.5 mg /3 mL (0.083 %) solution for nebulization 2.5 mg inhalation QID PRN (Reason: SOB) azelastine 137 mcg (0.1 %) spray,non-aerosol 137 mcg intranasal BID omega 3-lef-fgu-fish oil [Fish Oil] 1,000 mg (120 mg-180 mg) capsule 1 cap PO DAILY carvedilol [Coreg] 3.125 mg Tablet 3.125 mg PO BID acetaminophen 650 mg Tablet Extended Release 650 mg PO Q6H PRN (Reason: Mild Pain (Scale Score 1-4)) magnesium hydroxide [Milk of Magnesia] 400 mg/5 mL Suspension 400 mg PO Q72H PRN (Reason: Constipation) ondansetron 4 mg Tablet,Disintegrating 4 mg PO Q6H PRN (Reason: nausea and vomitting) trazodone 300 mg tablet 50 mg PO HS umeclidinium-vilanterol [Anoro Ellipta] 62.5-25 mcg/actuation blister with device 1 inh INHALATION DAILY Eucerin Intensive Repair Lotion 1 ea TOPICAL DAILY Rx Instructions: general dry skin loperamide 2 mg Capsule 2 mg PO Q12H PRN (Reason: Diarrhea) cholecalciferol (vitamin D3) 25 mcg (1,000 unit) Tablet 25 mcg PO DAILY ipratropium-albuterol 0.5 mg-3 mg(2.5 mg base)/3 mL Solution For Nebulization 3 ml INHALATION Q6H PRN (Reason: SOB) hydrocortisone 2.5 % Cream 1 applic TOPICAL QID PRN (Reason: Itching) Rx Instructions: affected areas Creon 24,000-76,000 -120,000 unit Capsule,Delayed Release(Dr/Ec) 2 cap PO TID Rx Instructions: administer with meals and/or snacks artificial tears solution Drops 1 drp OPHTHALMIC (EYE) BID atorvastatin 40 mg tablet 40 mg PO QPM diclofenac sodium 50 mg tablet,delayed release (DR/EC) 50 mg PO Q12H sodium chloride 0.9 % Parenteral Solution See Rx Instructions .ROUTE .COMPLEX Rx Instructions: one flush q24 hr hydrocodone-acetaminophen 10-325 mg tablet 1 tablet PO QID ferrous sulfate 325 mg (65 mg iron) tablet 325 mg PO TID ascorbic acid (vitamin C) 500 mg tablet 500 mg PO BID diphenhydramine HCl [Allergy Medication] 25 mg capsule 25 mg PO Q6H PRN (Reason: itching) bisacodyl 10 mg suppository 10 mg RECTAL DAILY PRN (Reason: constipation) magnesium citrate [Citroma] Solution 296 ml PO DAILY PRN (Reason: constipation) diclofenac sodium [Arthritis Pain (diclofenac)] 1 % gel 4.5 inch topical QID Rx Instructions: apply to single elbow, wrist or hand; for hand includes palm/fingers/back of hand cyanocobalamin (vitamin B-12) [B-12 DOTS] 500 mcg tablet 500 mcg PO DAILY fexofenadine [Lea Allergy] 180 mg tablet 180 mg PO DAILY multivitamin [Daily Multi-Vitamin] Tablet 1 tablet PO DAILY hydrocortisone [Preparation H Hydrocortisone] 1 % cream 1 applic topical HS PRN (Reason: itching) senna 8.6 mg capsule 8.6 mg PO BID Trexall 7.5 mg tablet 7.5 mg PO WEEKLY Patient Comments: To be given on Fridays triamcinolone acetonide 0.1 % cream 1 applic TOPICAL BID polyethylene glycol 3350 [Miralax] 17 gram Powder In Packet 17 g PO QAM PRN (Reason: Constipation) Qty: 30 0RF budesonide [Pulmicort] 0.5 mg/2 mL Suspension For Nebulization 0.5 mg inhalation Q12HRT Qty: 30 0RF fluticasone propionate 50 mcg/actuation [place],Suspension 1 spray intranasal Q12HR Qty: 30 0RF levofloxacin 750 mg tablet 750 mg PO Q48H Qty: 3 0RF baclofen 10 mg tablet 10 mg PO Q6H Qty: 10 0RF folic acid 1 mg tablet 1 mg PO DAILY Qty: 90 2RF Follow-up/Referrals: Mariano Walker MD [Primary Care Provider] -
[2025-04-18 12:31] LABS: PCO2 ABG 66.4 mmHg (35.0-45.0); Site Drawn RIGHT RADIAL
[2025-04-18 12:32] LABS: Alanine Aminotransferase 15 U/L (6-35); Albumin Level 3.2 g/dL (3.5-5.1); Alkaline Phosphatase 43 U/L (38-126); Anion Gap 7 mmol/L (4-12); Aspartate Amino Transferase 26 U/L (14-36); Bilirubin,Total 0.2 mg/dL (0.2-1.3); Blood Urea Nitrogen 26 mg/dL (7-17); CRP 2.0 mg/dL (<1.0); Calcium 7.4 mg/dL (8.4-10.2); Carbon Dioxide 32 mmol/L (22-30); Chloride 96 mmol/L (98-107); Estimated Glomerular Filt Rate 33; Glucose 85 mg/dL (65-110); Lipase 36 U/L (23-300); Potassium 3.7 mmol/L (3.4-5.0); Sodium 135 mmol/L (137-145); Total Protein 6.1 g/dL (6.3-8.2)
[2025-04-18 12:32] LABS: Liters per Minute 3.0 LPM; Modified Allen's Test Pass
--- NOTE | 2025-04-18 12:33 | PC.NURSE ---
EDP Dr. Gutierrez at bedside with family discussing plan of care with Stefanie, pt granddaughter & POA. Family wishes to place pt on comfort measures only. Care coordination called.
--- NOTE | 2025-04-18 12:34 | PC.NURSE ---
Care coordination at bedside.
--- NOTE | 2025-04-18 12:36 | PCCCNOTE ---
Called to the pt's room by the ED provider to discuss hospice. The Granddaughter Stefanie stated she feels the facility overdosed the pt. She would like the pt to be administered Narcan first before proceeding with the hospice route. ED provider updated.-fe
[2025-04-18 12:41] LABS: INR 1.3; Prothrombin Time 16.3 Seconds (11.1-14.7)
[2025-04-18 12:41] LABS: Troponin I < 0.012 ng/mL (0.000-0.034)
[2025-04-18 12:42] LABS: Partial Thromboplastin Time 49.0 Seconds (22.3-36.8)
[2025-04-18] MEDS: NALOXONE HCL 0.4 MG/ML VIAL IV PUSH (12:45)
--- NOTE | 2025-04-18 12:46 | PCRCNOTE ---
Dr. Gutierrez states to hold the Bipap for now; Pt. was given Narcan and is alert and answering questions.
[2025-04-18] MEDS: IPRATROPIUM 0.5 MG/ALBUTEROL SULFATE 2.5 MG AMPUL.NEB 3 ML 12 ML INHALATION (12:51)
--- NOTE | 2025-04-18 12:56 | PC.NURSE ---
After dose of Narcan, Pt is A&Ox4. Talkative with granddaughter. Dr Gutierrez states to resume fluid bolus and meds.
--- NOTE | 2025-04-18 13:31 | PCCCNOTE ---
Spoke to the granddaughter after the Narcan given and effective. Stated she would like the pt to be moved to a different facility. Spoke with the ED provider and stated the pt is being admitted to the hospital. Did share the [facility] hotline number of [phone] for concerns with the care given at [facility]. Also gave a list of facilities that accept the pt's insurance to think about moving towards discharge.-fe
--- NOTE | 2025-04-18 13:48 | PCCCNOTE ---
Granddaughter stated she wants the pt to go to [facility] when she is ready to discharge. Stated that is by her home. Denied needing any further Case Management needs.-fe
[2025-04-18] MEDS: NALOXONE HCL 0.4 MG/ML VIAL (14:53)
[2025-04-18] MEDS: MEROPENEM 1 GM in SODIUM CHLORIDE 0.9% IV 100 ML 200 ML IVPB (15:41)
[2025-04-18] MEDS: NOREPINEPHRINE 8 MG/D5W 250 ML 8 MG/250 ML BAG 9.38 MG IV CONT (15:46)
--- NOTE | 2025-04-18 16:04 | P.HP_ITS ---
H&P: HPI History of Present Illness Date/Time: 04/18/25 16:04 Chief Complaint: Altered mental status Narrative: 80-year-old female presents the hospital with altered mental status from a custodial. In the ED the patient was only responsive to painful stimuli. The family had stated that the patient has overdosed before of opioids at the custodial. Narcan was tried and the patient was awake however she remains severely hypotensive. A central line was placed and she was placed on pressors. Family is concerned that maybe she got too many narcotics overnight as she kept complaining that she could sleep because of her roommate. Patient was originally placed in the nursing from the age of 65 for abusing her pills and the family wanted someone to be able could control her medications. Code status is no intubation, no CPR, okay for central line and vasopressors Review of Systems Review of Systems: ROS unobtainable: Yes unobtainable due to medical condition and unobtainable due to mental status [facility] Past Medical History Medical History (Updated 04/18/25 @ 18:53 by Jeaneth Alvarado, CARMELA) Drug overdose Pulmonary embolism (06/2021) Pulmonary arterial hypertension Chronic interstitial lung disease Overactive bladder Peripheral vascular disease Cerebrovascular accident Anemia of chronic disease Clostridium difficile diarrhea Prediabetes Hyperlipidemia Hypertension History of peptic ulcer Gastroesophageal reflux disease Chronic respiratory failure with hypoxia and hypercapnia On 2 to 3 L nasal cannula. Chronic obstructive pulmonary disease Diastolic congestive heart failure Pneumonia due to 2019-nCoV (06/11/21) Exocrine pancreatic insufficiency Migraine Herniated disc Osteoporosis Anxiety Depression Arthritis GI bleed Pancreatitis Emphysema of lung Dementia Surgical History Surgical History History of neck surgery (2001) History of tonsillectomy History of bladder suspension procedure History of lumbar fusion x2 History of hysterectomy History of tubal ligation History of cholecystectomy History of cardiac cath History of vascular surgery Left lower extremity. Family History Family History Father Family history of Parkinson's disease Sibling Patient's brother is in good health Mother Family history of chronic obstructive pulmonary disease Family history of pancreatic cancer Social History Social History Social History: Surrogate decision maker: Stefanie Finney, granddaughter. Code status: Full code. Smoking packs per day: 1 Smoking cigarettes per day: 20.0 Years smoked: 30 Smoking pack-years: 30.00 Smoking status: Smoker, status unknown Second hand tobacco smoke exposure: Yes Alcohol intake: never Substance use: never Substance use type: does not use Do You Feel Safe in your Home?: Yes Lack of Transportation: No Lack of Food: Never True Current Housing: I Have Housing Concerned About Future Housing: No Difficulty Paying Gas/Electric Bills: No Difficulty Paying for Meds: No Currently Unemployed: No Education: High School Diploma/GED Difficulty w/ Childcare or Family Care: No Living arrangements: custodial Additional living arrangements comments: Resident of [facility]. Additional occupation/education comments: Retired. Spiritual care concerns: No Meds Home Medications and Allergies Home Medications ?Medication ?Instructions ?Recorded ?Confirmed ?Type pregabalin 150 mg capsule (Lyrica) 150 mg PO BID #60 caps 02/03/21 04/18/25 Rx folic acid 1 mg tablet 1 mg PO DAILY #90 tabs 03/30/21 04/18/25 Rx acetaminophen 650 mg 650 mg PO Q6H PRN Mild Pain (Scale 10/09/21 04/18/25 History tablet,extended release Score 1-4) carvedilol 3.125 mg tablet (Coreg) 3.125 mg PO BID 10/09/21 04/18/25 History magnesium hydroxide 400 mg/5 mL 400 mg PO Q72H PRN Constipation 10/09/21 04/18/25 History oral suspension (Milk of Magnesia) ondansetron 4 mg disintegrating 4 mg PO Q6H PRN nausea and 10/09/21 04/18/25 History tablet vomitting trazodone 300 mg tablet 50 mg PO HS 10/09/21 04/18/25 History apixaban 2.5 mg tablet (Eliquis) 2.5 mg PO BID 01/12/23 04/18/25 History bupropion HCl 75 mg tablet 75 mg PO DAILY 01/12/23 04/18/25 History furosemide 40 mg tablet 40 mg PO QAM 01/12/23 04/18/25 History guaifenesin 600 mg tablet, 600 mg PO BID 01/12/23 04/18/25 History extended release 12 hr sodium phosphates 19 gram-7 118 ml RECTAL ONCE PRN Constipation 01/12/23 04/18/25 History gram/118 mL enema (Fleet Enema) umeclidinium 62.5 mcg-vilanterol 1 inh inhalation DAILY 08/16/23 04/18/25 History 25 mcg/actuation powdr for inhalation (Anoro Ellipta) albuterol sulfate 2.5 mg/3 mL 2.5 mg inhalation QID PRN SOB 04/18/24 04/18/25 History (0.083 %) solution for nebulization azelastine 137 mcg (0.1 %) nasal 137 mcg intranasal BID 04/18/24 04/18/25 History spray omega [id number]-fish oil 1,000 mg 1 cap PO DAILY 04/18/24 04/18/25 History (120 mg-180 mg) capsule (Fish Oil) artificial tears solution eye drops 1 drp ophthalmic (eye) BID dry eyes 04/21/24 04/18/25 History cholecalciferol (vitamin D3) 25 25 mcg PO DAILY 04/21/24 04/18/25 History mcg (1,000 unit) tablet emollient combination no.110 1 ea topical DAILY 04/21/24 04/18/25 History (Eucerin Intensive Repair lotion) hydrocortisone 2.5 % topical cream 1 applic topical QID PRN Itching 04/21/24 04/18/25 History ipratropium 0.5 mg-albuterol 3 mg 3 ml inhalation Q6H PRN SOB 04/21/24 04/18/25 History (2.5 mg base)/3 mL nebulization soln [id number] 2 cap PO TID 04/21/24 04/18/25 History 24,000-76,000-120,000 unit capsule,delayed rel (Creon) loperamide 2 mg capsule 2 mg PO Q12H PRN Diarrhea 04/21/24 04/18/25 History ascorbic acid (vitamin C) 500 mg 500 mg PO BID 03/19/25 04/18/25 History tablet atorvastatin 40 mg tablet 40 mg PO QPM 03/19/25 04/18/25 History bisacodyl 10 mg rectal suppository 10 mg RECTAL DAILY PRN constipation 03/19/25 04/18/25 History cyanocobalamin (vitamin B-12) 500 500 mcg PO DAILY 03/19/25 04/18/25 History mcg tablet (B-12 DOTS) diclofenac sodium 1 % topical gel 4.5 inch topical QID 03/19/25 04/18/25 History (Arthritis Pain (diclofenac)) diclofenac sodium 50 mg 50 mg PO Q12H 03/19/25 04/18/25 History tablet,delayed release ferrous sulfate 325 mg (65 mg 325 mg PO DAILY 03/19/25 04/18/25 History iron) tablet fexofenadine 180 mg tablet 180 mg PO DAILY 03/19/25 04/18/25 History (Lea Allergy) hydrocodone 10 mg-acetaminophen 1 tablet PO QID 03/19/25 04/18/25 History 325 mg tablet magnesium citrate (Citroma oral 296 ml PO DAILY PRN constipation 03/19/25 History solution) methotrexate sodium 7.5 mg tablet 7.5 mg PO WEEKLY 03/19/25 04/18/25 History (Trexall) multivitamin (Daily Multi-Vitamin 1 tablet PO DAILY 03/19/25 04/18/25 History tablet) sennosides 8.6 mg capsule (senna) 8.6 mg PO BID 03/19/25 04/18/25 History triamcinolone acetonide 0.1 % 1 applic topical BID 03/19/25 04/18/25 History topical cream baclofen 10 mg tablet 10 mg PO Q6H spasm #10 tabs 04/01/25 03/19/25 Rx budesonide 0.5 mg/2 mL suspension 0.5 mg (2 mL) inhalation Q12HRT 04/01/25 04/18/25 Rx for nebulization (Pulmicort) #30 mL fluticasone propionate 50 1 spray intranasal Q12HR #30 grams 04/01/25 04/18/25 Rx mcg/actuation nasal spray,suspension polyethylene glycol 3350 17 gram 17 g PO QAM PRN Constipation #30 ea 04/01/25 04/18/25 Rx oral powder packet (Miralax) bisacodyl 5 mg tablet,delayed 10 mg PO DAILY 04/18/25 04/18/25 History release moxifloxacin 400 mg tablet 400 mg PO DAILY 04/18/25 04/18/25 History Allergies Allergy/AdvReac Type Severity Reaction Status Date / Time ceftriaxone (From Rocephin) Allergy Intermediate Rash Verified 04/18/25 11:39 Sulfa (Sulfonamide Allergy Intermediate Rash Verified 04/18/25 11:39 Antibiotics) morphine AdvReac Mild Hallucinati Verified 04/18/25 11:39 ng Vital Signs Vital Signs - 24 hr 04/18/25 11:18 04/18/25 11:28 04/18/25 11:44 Temperature 98.1 F Pulse Rate 64 62 61 Respiratory Rate 24 H 10 L 12 Blood Pressure 87/52 L 87/52 L 79/46 L Pulse Oximetry 95 97 98 Oxygen Delivery Nasal Cannula Oxygen Flow Rate 3 04/18/25 11:45 04/18/25 11:45 04/18/25 12:00 Temperature Pulse Rate 67 Respiratory Rate 19 Blood Pressure 86/44 L Pulse Oximetry 83 L 100 100 Oxygen Delivery Room Air Nasal Cannula Oxygen Flow Rate 3 04/18/25 12:15 04/18/25 12:18 04/18/25 12:19 Temperature 97.0 F L Pulse Rate 70 66 Respiratory Rate 19 18 Blood Pressure 118/91 H 118/91 H Pulse Oximetry 100 100 100 Oxygen Delivery Nasal Cannula Oxygen Flow Rate 3 04/18/25 12:20 04/18/25 12:28 04/18/25 12:43 Temperature Pulse Rate 65 70 114 H Respiratory Rate 18 24 H 20 Blood Pressure 110/57 L 110/57 L 111/79 Pulse Oximetry 100 100 91 Oxygen Delivery Oxygen Flow Rate 04/18/25 12:52 04/18/25 13:10 04/18/25 13:30 Temperature Pulse Rate 99 80 78 Respiratory Rate 17 20 24 H Blood Pressure 125/69 122/60 Pulse Oximetry 100 100 Oxygen Delivery Oxygen Flow Rate 04/18/25 13:30 04/18/25 13:40 04/18/25 13:50 Temperature Pulse Rate 78 81 76 Respiratory Rate 20 18 16 Blood Pressure 122/60 97/62 L 106/83 Pulse Oximetry 100 100 Oxygen Delivery Oxygen Flow Rate 04/18/25 13:53 04/18/25 14:31 04/18/25 15:46 Temperature Pulse Rate 78 74 86 Respiratory Rate 19 12 Blood Pressure 94/62 L 107/64 Pulse Oximetry 100 Oxygen Delivery Oxygen Flow Rate Exam Narrative: General: Chronically-ill HEENT: normocephalic, atraumatic. Mucous membranes moist. EOMI, PERRLA, bilateral sclera anicteric, no conjunctival injection. Neck supple without JVD, lymphadenopathy, or bruit. Ecchymosis periorbital left eye. Left pupil 1 mm reactive right pupil 6 mm reactive Respiratory: clear to ascultation bilaterally. No rales/rhonic/wheezes. Cardiovascular: Regular rate and rhythm, normal S1-S2 upon ascultation. No murmurs, rubs, or clicks. PMI is nondisplaced, capillary refill less than 3 second. Abdomen: Soft, round, no pulsatile masses, nondistended and nontender. No rebound, no guarding. No CVA tenderness, no hepatosplenomegaly. Bowel sounds present to all four quadrants. No high pitch or tinkling sounds, resonant to percussion. Extremities: No cyanosis, clubbing, or edema present. Pulses are palpable 2/2. Neuro: Alert and orientated x 0. Withdrawals to painful stimuli Skin: Warm, dry, and intact, without rash, erythema, or lesion. Psych: unable to assess BiPAP H&P: Results Labs Labs: Short CBC 04/18/25 Range/Units 11:57 WBC 20.2 H (4.5-10.0) K/mm3 Hgb 8.5 L (12.0-15.0) g/dL Hct 28.1 L (37.0-47.0) % Plt Count 320 (150-375) k/mm3 BMP 04/18/25 11:57 Sodium 135 L Potassium 3.7 Chloride 96 L Carbon Dioxide 32 H BUN 26 H Creatinine 1.50 H Glucose 85 Calcium 7.4 L Cardiac Enzymes 04/18/25 Range/Units 11:57 Troponin I < 0.012 (0.000-0.034) ng/mL Liver Function 04/18/25 Range/Units 11:57 Total Bilirubin 0.2 (0.2-1.3) mg/dL AST 26 (14-36) U/L ALT 15 (6-35) U/L Alkaline Phosphatase 43 (38-126) U/L Albumin 3.2 L (3.5-5.1) g/dL Urine 04/18/25 Range/Units 12:07 Urine Color Yellow (Yellow) Urine Appearance Clear (Clear) Urine pH 5.0 (5.0-9.0) Ur Specific [place] 1.012 (1.001-1.035) Urine Protein Negative (Negative) mg/dL Urine Glucose (UA) Negative (Negative) mg/dL Assessment and Plan Assessment and plan (1) Altered mental status: Qualifiers: Altered mental status type: disorientation Qualified Code(s): R41.0 - Disorientation, unspecified Code(s): R41.82 - Altered mental status, unspecified Status: Acute Assessment and Plan: Respiratory failure versus Polypharmacy versus overdose versus infection versus other Head CT with no acute process UA negative for infection X-ray shows pneumonia ABG shows hypoxia with hypercarbia Urine drug screen pending (2) Drug overdose: Code(s): T50.901A - Poisoning by unspecified drugs, medicaments and biological substan ad, accidental (unintentional), initial encounter Status: Acute Assessment and Plan: Possible Intentional versus unintentional Avoid narcotics Narcan p.r.n. (3) Hypotension: Code(s): I95.9 - Hypotension, unspecified Status: Acute Assessment and Plan: CVC Replete calcium IV fluids Vasopressors (4) Septic shock: Code(s): A41.9 - Sepsis, unspecified organism; R65.21 - Severe sepsis with septic shock Status: Acute Assessment and Plan: Lactic acid pending Support BP Received sepsis bolus IV doxycycline, meropenem, vancomycin (5) PNA (pneumonia): Code(s): J18.9 - Pneumonia, unspecified organism Status: Acute Assessment and Plan: IV doxycycline, meropenem, vancomycin (6) Acute and chronic respiratory failure with hypercapnia: Code(s): J96.22 - Acute and chronic respiratory failure with hypercapnia Status: Acute Assessment and Plan: BiPAP Daily ABG (7) Chronic obstructive pulmonary disease: Code(s): J44.9 - Chronic obstructive pulmonary disease, unspecified Status: Acute Assessment and Plan: Schedule DuoNebs Antibiotics as above (8) Diastolic congestive heart failure: Code(s): I50.30 - Unspecified diastolic (congestive) heart failure Status: Acute Assessment and Plan: Hold Lasix due to hypotension (9) Anisocoria: Code(s): H57.02 - Anisocoria Status: Acute Assessment and Plan: Stat head CT with no acute process Possibly induced by duoneb poorly fitting mask Quality VTE Prophylaxis VTE prophylaxis: mechanical ordered Hospitalist MIPS Advance Care Plan I have confirmed that the patient's Advanced Care Plan is present, code status is documented, or surrogate decision maker is listed in patient medical record.: Yes Medication Reconciliation I have utilized all available resources to obtain, update and review the patients current medications (includes all prescriptions, OTC, herbals, ca nnabis, and nutritional supplements).: Yes
[2025-04-18] MEDS: DOXYCYCLINE IV 100 MG in SODIUM CHLORIDE 0.9% IV 100 ML IVPB (16:22)
[2025-04-18 16:30] LABS: Influenza A QL RT-PCR Negative (Negative); Influenza B QL RT-PCR Negative (Negative); RSV RNA, RT-PCR Negative (Negative); SARS-CoV-2 RNA PCR Negative (Negative)
[2025-04-18 17:44] LABS: Alveolar/Arterial O2 Gradient 148.4 mmHg; Fractional Inspired Oxygen 35 %; HCO3 ABG 29.9 mEq/l (22.0-26.0); Oxygen Content ABG 13.1 %vol (16.0-22.0); Oxygen Saturation ABG 93.4 % (95.0-100.0); PO2 ABG 75.4 mmHg (80.0-100.0); PO2 FiO2 Ratio Arterial Blood 2.15 %
[2025-04-18 17:48] LABS: PCO2 ABG 61.8 mmHg (35.0-45.0); Site Drawn LEFT RADIAL
[2025-04-18 17:50] LABS: Non-Invasive Expiratory Pressure 5 CMH2O; Non-Invasive Inspiratory Pressure 15 CMH2O; Non-Invasive Vent Rate 4 /MIN
--- NOTE | 2025-04-18 17:51 | PCRCNOTE ---
ABG'S delayed due to pt being transported to ICU from ED
[2025-04-18] MEDS: VANCOMYCIN 1,250 MG/NS 250 ML 1,250 MG/250 ML BAG 166.67 MG IVPB (18:00)
--- NOTE | 2025-04-18 18:09 | ADMGEN ---
This patient, Gabbi Champagne, was admitted to Intensive Care Unit-6 at 1715. Patient/family oriented to hospital policies and general routines including ID bracelet, bed and alarms, visiting hours, pain management, procedures, bathroom and other care routines, personal items, smoking policy, room service/diet, and visiting hours. Information on how to activate the Rapid Response Team has been discussed. Patient/Family are encouraged to report perceived risks to care and to ask questions if they do not understand what they are told or what they should do.
--- NOTE | 2025-04-18 19:09 | PC.NURSE ---
This patient, Gabbi Champagne, was admitted to Intensive Care Unit-6. Patient/family oriented to hospital policies and general routines including ID bracelet, bed and alarms, visiting hours, pain management, procedures, bathroom and other care routines, personal items, smoking policy, room service/diet, and visiting hours. Information on how to activate the Rapid Response Team has been discussed. Patient/Family are encouraged to report perceived risks to care and to ask questions if they do not understand what they are told or what they should do.
[2025-04-18] MEDS: LACTATED RINGERS 1,000 ML 100 ML IV CONT (19:38)
[2025-04-18] MEDS: CALCIUM GLUC 2,000 MG/NS 100ML 2,000 MG/100 ML BAG 100 MG IVPB (19:39)
[2025-04-18] MEDS: CENTRAL LINE FLUSH 10 ML IV PUSH (19:40)
[2025-04-18 20:14] LABS: MRSA (PCR) NOT DETECTED (NOT DETECTE)
--- NOTE | 2025-04-18 20:21 | PC.NURSE ---
2009 Jeaneth Alvarado made aware of sudden onset of tremors vs shivering in patient. No abnormal eye movement although pupils are still uneven as previously noted. Squeezed hand and moved feet when asked. Family notes the patient has restless leg syndrome and thinks she is also moving legs when tremors occur. Blankets placed on patient and tremors/shivering reduced.
[2025-04-19] VITALS (27 sets, daily range): BP systolic 100–164; BP diastolic 52–83; PULSE 71–95; RESP 16–22; TEMP 36.8–38.5; O2SAT 93–100
[2025-04-19] MEDS: ACETAMINOPHEN 650 MG SUPPOSITORY RECTAL (00:29)
[2025-04-19 04:38] LABS: Alveolar/Arterial O2 Gradient 81.0 mmHg; Carboxyhemoglobin 0.6 % THb (0-2.0); Fractional Inspired Oxygen 30 %; HCO3 ABG 36.1 mEq/l (22.0-26.0); Methemoglobin ABG 0.3 %THb (0-1.5); Oxygen Content ABG 12.3 %vol (16.0-22.0); Oxygen Saturation ABG 94.0 % (95.0-100.0); PCO2 ABG 54.5 mmHg (35.0-45.0); PO2 ABG 68.9 mmHg (80.0-100.0); PO2 FiO2 Ratio Arterial Blood 2.30 %; Reduced Hemoglobin 5.5 %THb (0-5.0)
[2025-04-19 04:40] LABS: Modified Allen's Test Pass; Non-Invasive Vent Rate 12 /MIN; Site Drawn RIGHT RADIAL
[2025-04-19 04:41] LABS: Non-Invasive Expiratory Pressure 5 CMH2O; Non-Invasive Inspiratory Pressure 15 CMH2O
[2025-04-19] MEDS: DOXYCYCLINE IV 100 MG in SODIUM CHLORIDE 0.9% IV 100 ML IVPB ×2 (05:06→17:48)
[2025-04-19] MEDS: CENTRAL LINE FLUSH 10 ML IV PUSH ×2 (05:13)
[2025-04-19] MEDS: CENTRAL LINE FLUSH 20 ML IV PUSH (05:13)
[2025-04-19] MEDS: MEROPENEM 1 GM in SODIUM CHLORIDE 0.9% IV 100 ML 200 ML IVPB ×2 (05:13→17:48)
[2025-04-19 05:20] LABS: Hematocrit 27.1 % (37.0-47.0); Hemoglobin 8.4 g/dL (12.0-15.0); Mean Corpuscular HGB Conc 31.0 g/dl (32-36); Mean Corpuscular Hemoglobin 30.9 pg (26-34); Mean Corpuscular Volume 99.6 fl (80-100); Platelet Count Result 283 k/mm3 (150-375); Red Blood Count 2.72 M/mm3 (4.2-5.4); White Blood Count 22.4 K/mm3 (4.5-10.0)
[2025-04-19 05:30] LABS: INR 1.3; Prothrombin Time 16.6 Seconds (11.1-14.7)
[2025-04-19 05:31] LABS: Partial Thromboplastin Time 50.3 Seconds (22.3-36.8)
[2025-04-19 05:42] LABS: Alanine Aminotransferase 12 U/L (6-35); Albumin Level 3.0 g/dL (3.5-5.1); Alkaline Phosphatase 46 U/L (38-126); Anion Gap 2 mmol/L (4-12); Aspartate Amino Transferase 26 U/L (14-36); Bilirubin,Total 0.4 mg/dL (0.2-1.3); Blood Urea Nitrogen 14 mg/dL (7-17); Calcium 8.1 mg/dL (8.4-10.2); Carbon Dioxide 36 mmol/L (22-30); Chloride 102 mmol/L (98-107); Estimated CRCL calculation 48 ml/min; Estimated Glomerular Filt Rate > 60; Glucose 103 mg/dL (65-110); Magnesium 1.2 mg/dL (1.6-2.3); Potassium 3.8 mmol/L (3.4-5.0); Sodium 140 mmol/L (137-145); Total Protein 5.8 g/dL (6.3-8.2)
[2025-04-19] MEDS: LACTATED RINGERS 1,000 ML 100 ML IV CONT ×2 (06:49→18:33)
--- NOTE | 2025-04-19 09:06 | WPDCNINT ---
Assessment and Plan Assessment and plan (1) Septic shock: Code(s): A41.9 - Sepsis, unspecified organism; R65.21 - Severe sepsis with septic shock Status: Acute Assessment and Plan: Septic shock secondary to pneumonia and possible C diff colitis Blood pressures improved and Levophed has been weaned off Patient received IV fluid bolus and is now on maintenance IV fluids which I will continue through the day Blood cultures have been sent. Patient is on broad-spectrum antibiotics in the form of doxycycline meropenem and vancomycin Check stool for C diff, empiric Dificid If C diff comes are positive will check a CT abdomen pelvis. 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 Denies any hematochezia melena or abdominal pain She has been on antibiotics recently. I will check C diff. Start Dificid empiric (4) Altered mental status: Qualifiers: Altered mental status type: disorientation Qualified Code(s): R41.0 - Disorientation, unspecified Code(s): R41.82 - Altered mental status, unspecified Status: Acute Assessment and Plan: Altered mental status likely secondary to multiple medications, opioid and sepsis. Head CT was negative Mental status has now improved and patient is alert awake and following commands I will continue to hold sedatives and opioids at this time (5) COPD (chronic obstructive pulmonary disease): Qualifiers: COPD type: unspecified COPD Qualified Code(s): J44.9 - Chronic obstructive pulmonary disease, unspecified Code(s): J44.9 - Chronic obstructive pulmonary disease, unspecified Status: Chronic Assessment and Plan: History of COPD not in exacerbation. Continue bronchodilators and budesonide (6) Chronic interstitial lung disease: Code(s): J84.9 - Interstitial pulmonary disease, unspecified Status: Acute Assessment and Plan: Continue supplemental oxygen (7) Acute on chronic respiratory failure with hypoxia and hypercapnia: Code(s): J96.21 - Acute and chronic respiratory failure with hypoxia; J96.22 - Acute and chronic respiratory failure with hypercapnia Status: Acute Assessment and Plan: Patient has chronic hypercarbic and hypoxic respiratory failure requiring oxygen at 3 L. She presented with acute exacerbation due to multiple factors She was placed on BiPAP. ABG did improve. She is DNR DNI. But has now been weaned off to supplemental oxygen. I will change BiPAP to p.r.n. 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 Patient is on multiple medications that are sedative including opioids at [facility]. Patient was found to be hypercarbic and hypotensive. Narcan was administered which led to partial improvement. Patient was placed on BiPAP. Patient was also hypotensive and was given IV antibiotics, IV fluids and started on IV Levophed. Had right IJ central venous catheter was inserted. Patient was transferred to ICU for further evaluation management. In ICU patient showed improvement and Levophed was weaned off last night at 8:30 p.m.. Patient also had improvement in mental status and BiPAP was taken off this morning. This morning patient is alert awake and able to follow commands and answer questions. She states she was having diarrhea at the [facility]. She denies any abdominal pain. She denies any dysuria. She did states she was having cough but cough was dry. She denies any fever chills chest pain nausea vomiting coughing after eating food. She states she has regular food and does not have any trouble.. Grand daughter reported in the ER the patient does abuse her medications and takes erratically.. All other systems were reviewed and were negative Review of Systems Review of Systems: All systems reviewed & are unremarkable except as noted in HPI and below (HPI) [facility] Past Medical History Medical History Drug overdose Pulmonary embolism (06/2021) Pulmonary arterial hypertension Chronic interstitial lung disease Overactive bladder Peripheral vascular disease Cerebrovascular accident Anemia of chronic disease Clostridium difficile diarrhea Prediabetes Hyperlipidemia Hypertension History of peptic ulcer Gastroesophageal reflux disease Chronic respiratory failure with hypoxia and hypercapnia On 2 to 3 L nasal cannula. Chronic obstructive pulmonary disease Diastolic congestive heart failure Pneumonia due to 2019-nCoV (06/11/21) Exocrine pancreatic insufficiency Migraine Herniated disc Osteoporosis Anxiety Depression Arthritis GI bleed Pancreatitis Emphysema of lung Dementia Surgical History Surgical History History of neck surgery (2001) History of tonsillectomy History of bladder suspension procedure History of lumbar fusion x2 History of hysterectomy History of tubal ligation History of cholecystectomy History of cardiac cath History of vascular surgery Left lower extremity. Family History Family History Father Family history of Parkinson's disease Sibling Patient's brother is in good health Mother Family history of chronic obstructive pulmonary disease Family history of pancreatic cancer Social History Social History Social History: Surrogate decision maker: Stefanie Finney, granddaughter. Code status: Full code. Smoking packs per day: 1 Smoking cigarettes per day: 20.0 Years smoked: 30 Smoking pack-years: 30.00 Smoking status: Smoker, status unknown Second hand tobacco smoke exposure: Yes Alcohol intake: never Substance use: never Substance use type: does not use Do You Feel Safe in your Home?: Yes Lack of Transportation: No Lack of Food: Never True Current Housing: I Have Housing Concerned About Future Housing: No Difficulty Paying Gas/Electric Bills: No Difficulty Paying for Meds: No Currently Unemployed: No Education: High School Diploma/GED Difficulty w/ Childcare or Family Care: No Living arrangements: [facility] Additional living arrangements comments: Resident of [facility]. Additional occupation/education comments: Retired. Spiritual care concerns: No Meds Home Medications and Allergies Home Medications ?Medication ?Instructions ?Recorded ?Confirmed ?Type pregabalin 150 mg capsule (Lyrica) 150 mg PO BID #60 caps 02/03/21 04/18/25 Rx folic acid 1 mg tablet 1 mg PO DAILY #90 tabs 03/30/21 04/18/25 Rx acetaminophen 650 mg 650 mg PO Q6H PRN Mild Pain (Scale 10/09/21 04/18/25 History tablet,extended release Score 1-4) carvedilol 3.125 mg tablet (Coreg) 3.125 mg PO BID 10/09/21 04/18/25 History magnesium hydroxide 400 mg/5 mL 400 mg PO Q72H PRN Constipation 10/09/21 04/18/25 History oral suspension (Milk of Magnesia) ondansetron 4 mg disintegrating 4 mg PO Q6H PRN nausea and 10/09/21 04/18/25 History tablet vomitting trazodone 300 mg tablet 50 mg PO HS 10/09/21 04/18/25 History apixaban 2.5 mg tablet (Eliquis) 2.5 mg PO BID 01/12/23 04/18/25 History bupropion HCl 75 mg tablet 75 mg PO DAILY 01/12/23 04/18/25 History furosemide 40 mg tablet 40 mg PO QAM 01/12/23 04/18/25 History guaifenesin 600 mg tablet, 600 mg PO BID 01/12/23 04/18/25 History extended release 12 hr sodium phosphates 19 gram-7 118 ml RECTAL ONCE PRN Constipation 01/12/23 04/18/25 History gram/118 mL enema (Fleet Enema) umeclidinium 62.5 mcg-vilanterol 1 inh inhalation DAILY 08/16/23 04/18/25 History 25 mcg/actuation powdr for inhalation (Anoro Ellipta) albuterol sulfate 2.5 mg/3 mL 2.5 mg inhalation QID PRN SOB 04/18/24 04/18/25 History (0.083 %) solution for nebulization azelastine 137 mcg (0.1 %) nasal 137 mcg intranasal BID 04/18/24 04/18/25 History spray omega 2-bhb-ksu-fish oil 1,000 mg 1 cap PO DAILY 04/18/24 04/18/25 History (120 mg-180 mg) capsule (Fish Oil) artificial tears solution eye drops 1 drp ophthalmic (eye) BID dry eyes 04/21/24 04/18/25 History cholecalciferol (vitamin D3) 25 25 mcg PO DAILY 04/21/24 04/18/25 History mcg (1,000 unit) tablet emollient combination no.110 1 ea topical DAILY 04/21/24 04/18/25 History (Eucerin Intensive Repair lotion) hydrocortisone 2.5 % topical cream 1 applic topical QID PRN Itching 04/21/24 04/18/25 History ipratropium 0.5 mg-albuterol 3 mg 3 ml inhalation Q6H PRN SOB 04/21/24 04/18/25 History (2.5 mg base)/3 mL nebulization soln grvvrz-vaplhavh-kbkqqko 2 cap PO TID 04/21/24 04/18/25 History 24,000-76,000-120,000 unit capsule,delayed rel (Creon) loperamide 2 mg capsule 2 mg PO Q12H PRN Diarrhea 04/21/24 04/18/25 History ascorbic acid (vitamin C) 500 mg 500 mg PO BID 03/19/25 04/18/25 History tablet atorvastatin 40 mg tablet 40 mg PO QPM 03/19/25 04/18/25 History bisacodyl 10 mg rectal suppository 10 mg RECTAL DAILY PRN constipation 03/19/25 04/18/25 History cyanocobalamin (vitamin B-12) 500 500 mcg PO DAILY 03/19/25 04/18/25 History mcg tablet (B-12 DOTS) diclofenac sodium 1 % topical gel 4.5 inch topical QID 03/19/25 04/18/25 History (Arthritis Pain (diclofenac)) diclofenac sodium 50 mg 50 mg PO Q12H 03/19/25 04/18/25 History tablet,delayed release ferrous sulfate 325 mg (65 mg 325 mg PO DAILY 03/19/25 04/18/25 History iron) tablet fexofenadine 180 mg tablet 180 mg PO DAILY 03/19/25 04/18/25 History (Lea Allergy) hydrocodone 10 mg-acetaminophen 1 tablet PO QID 03/19/25 04/18/25 History 325 mg tablet magnesium citrate (Citroma oral 296 ml PO DAILY PRN constipation 03/19/25 04/18/25 History solution) methotrexate sodium 7.5 mg tablet 7.5 mg PO WEEKLY 03/19/25 04/18/25 History (Trexall) multivitamin (Daily Multi-Vitamin 1 tablet PO DAILY 03/19/25 04/18/25 History tablet) sennosides 8.6 mg capsule (senna) 8.6 mg PO BID 03/19/25 04/18/25 History triamcinolone acetonide 0.1 % 1 applic topical BID 03/19/25 04/18/25 History topical cream budesonide 0.5 mg/2 mL suspension 0.5 mg (2 mL) inhalation Q12HRT 04/01/25 04/18/25 Rx for nebulization (Pulmicort) #30 mL fluticasone propionate 50 1 spray intranasal Q12HR #30 grams 04/01/25 04/18/25 Rx mcg/actuation nasal spray,suspension polyethylene glycol 3350 17 gram 17 g PO QAM PRN Constipation #30 ea 04/01/25 04/18/25 Rx oral powder packet (Miralax) baclofen 10 mg tablet 10 mg PO Q6H PRN moderate pain 04/18/25 04/18/25 History bisacodyl 5 mg tablet,delayed 10 mg PO DAILY 04/18/25 04/18/25 History release moxifloxacin 400 mg tablet 400 mg PO DAILY 04/18/25 04/18/25 History Allergies Allergy/AdvReac Type Severity Reaction Status Date / Time ceftriaxone (From Rocephin) Allergy Intermediate Rash Verified 04/18/25 11:39 Sulfa (Sulfonamide Allergy Intermediate Rash Verified 04/18/25 11:39 Antibiotics) morphine AdvReac Mild Hallucinati Verified 04/18/25 11:39 ng Vital Signs Vital Signs - 24 hr 04/18/25 11:18 04/18/25 11:28 04/18/25 11:44 Temperature 36.7 C Pulse Rate 64 62 61 Respiratory Rate 24 H 10 L 12 Blood Pressure 87/52 L 87/52 L 79/46 L Pulse Oximetry 95 97 98 Oxygen Delivery Nasal Cannula Oxygen Flow Rate 3 Fraction of Inspired Oxygen 04/18/25 11:45 04/18/25 11:45 04/18/25 12:00 Temperature Pulse Rate 67 Respiratory Rate 19 Blood Pressure 86/44 L Pulse Oximetry 83 L 100 100 Oxygen Delivery Room Air Nasal Cannula Oxygen Flow Rate 3 Fraction of Inspired Oxygen 04/18/25 12:15 04/18/25 12:18 04/18/25 12:19 Temperature 36.1 C L Pulse Rate 70 66 Respiratory Rate 19 18 Blood Pressure 118/91 H 118/91 H Pulse Oximetry 100 100 100 Oxygen Delivery Nasal Cannula Oxygen Flow Rate 3 Fraction of Inspired Oxygen 04/18/25 12:20 04/18/25 12:28 04/18/25 12:43 Temperature Pulse Rate 65 70 114 H Respiratory Rate 18 24 H 20 Blood Pressure 110/57 L 110/57 L 111/79 Pulse Oximetry 100 100 91 Oxygen Delivery Oxygen Flow Rate Fraction of Inspired Oxygen 04/18/25 12:52 04/18/25 13:10 04/18/25 13:30 Temperature Pulse Rate 99 80 78 Respiratory Rate 17 20 24 H Blood Pressure 125/69 122/60 Pulse Oximetry 100 100 Oxygen Delivery Oxygen Flow Rate Fraction of Inspired Oxygen 04/18/25 13:30 04/18/25 13:40 04/18/25 13:50 Temperature Pulse Rate 78 81 76 Respiratory Rate 20 18 16 Blood Pressure 122/60 97/62 L 106/83 Pulse Oximetry 100 100 Oxygen Delivery Oxygen Flow Rate Fraction of Inspired Oxygen 04/18/25 13:53 04/18/25 14:31 04/18/25 15:46 Temperature Pulse Rate 78 74 86 Respiratory Rate 19 12 Blood Pressure 94/62 L 107/64 Pulse Oximetry 100 Oxygen Delivery Oxygen Flow Rate Fraction of Inspired Oxygen 04/18/25 16:00 04/18/25 16:50 04/18/25 17:02 Temperature Pulse Rate 75 72 Respiratory Rate 16 15 15 Blood Pressure 125/63 Pulse Oximetry 92 98 Oxygen Delivery BiPAP Oxygen Flow Rate Fraction of Inspired Oxygen 04/18/25 17:25 04/18/25 17:30 04/18/25 17:45 Temperature Pulse Rate 69 75 69 Respiratory Rate 19 Blood Pressure 115/50 L 118/86 Pulse Oximetry 99 Oxygen Delivery BiPAP Oxygen Flow Rate Fraction of Inspired Oxygen 04/18/25 18:00 04/18/25 18:00 04/18/25 18:00 Temperature 37.3 C Pulse Rate 69 69 78 Respiratory Rate 14 Blood Pressure 112/49 L 119/50 L Pulse Oximetry 100 Oxygen Delivery Oxygen Flow Rate Fraction of Inspired Oxygen 04/18/25 18:14 04/18/25 20:00 04/18/25 20:00 Temperature 37.2 C Pulse Rate 71 65 65 Respiratory Rate 16 16 Blood Pressure 125/53 L 125/53 L Pulse Oximetry 100 94 Oxygen Delivery BiPAP Oxygen Flow Rate Fraction of Inspired Oxygen 04/18/25 20:00 04/18/25 20:30 04/18/25 20:30 Temperature Pulse Rate 65 83 73 Respiratory Rate 16 Blood Pressure 137/53 L Pulse Oximetry 100 Oxygen Delivery BiPAP Oxygen Flow Rate Fraction of Inspired Oxygen 04/18/25 20:30 04/18/25 20:34 04/18/25 20:53 Temperature Pulse Rate 73 83 73 Respiratory Rate 21 H 16 Blood Pressure 122/100 H Pulse Oximetry 95 100 Oxygen Delivery BiPAP BiPAP Oxygen Flow Rate Fraction of Inspired Oxygen 30 35 04/18/25 22:00 04/18/25 22:00 04/18/25 22:35 Temperature 38.0 C H 38.2 C H Pulse Rate 75 74 79 Respiratory Rate 14 20 Blood Pressure 109/62 118/99 H Pulse Oximetry 98 99 Oxygen Delivery Oxygen Flow Rate Fraction of Inspired Oxygen 04/18/25 23:16 04/19/25 00:00 04/19/25 00:00 Temperature 38.5 C H Pulse Rate 81 80 80 Respiratory Rate 20 19 19 Blood Pressure 143/59 H Pulse Oximetry 98 96 96 Oxygen Delivery BiPAP Mechanical Ventilation Oxygen Flow Rate Fraction of Inspired Oxygen 30 04/19/25 00:00 04/19/25 00:29 04/19/25 01:29 Temperature 38.5 C H 38.4 C H Pulse Rate 79 Respiratory Rate Blood Pressure Pulse Oximetry Oxygen Delivery Oxygen Flow Rate Fraction of Inspired Oxygen 04/19/25 01:33 04/19/25 02:00 04/19/25 02:00 Temperature 38.3 C H Pulse Rate 82 78 76 Respiratory Rate 18 18 Blood Pressure 129/55 L Pulse Oximetry 96 96 Oxygen Delivery BiPAP Oxygen Flow Rate Fraction of Inspired Oxygen 04/19/25 04:00 04/19/25 04:30 04/19/25 04:30 Temperature 38.1 C H Pulse Rate 85 77 77 Respiratory Rate 19 19 Blood Pressure 148/80 H Pulse Oximetry 97 97 Oxygen Delivery Mechanical Ventilation Oxygen Flow Rate Fraction of Inspired Oxygen 30 04/19/25 04:36 04/19/25 06:20 04/19/25 06:20 Temperature 37.8 C H Pulse Rate 79 80 80 Respiratory Rate 16 20 Blood Pressure 100/83 Pulse Oximetry 96 98 Oxygen Delivery BiPAP Oxygen Flow Rate Fraction of Inspired Oxygen 04/19/25 06:21 04/19/25 08:16 04/19/25 08:23 Temperature Pulse Rate 79 Respiratory Rate 20 Blood Pressure Pulse Oximetry 100 93 93 Oxygen Delivery Nasal Cannula Nasal Cannula Nasal Cannula Oxygen Flow Rate 3 1 Fraction of Inspired Oxygen Exam Narrative: General: Pt is alert awake and in NAD Lungs/Chest: Trachea central Clear BS B/L, No crackles or wheezing. Cardiac: RRR. Normal S1 S2. No murmurs Circulation: Both feet are warm Abdomen: Normal bowel sounds. Obese. Soft. NT. ND. Extremities: No clubbing, cyanosis or edema. Warm : Andrews in place Neurologic: Follows commands. Moves all 4 extremities PERRL AO x1 does not know name of the president and gave amiodarone year Skin: No Rash Results Labs 04/19/25 04:59 04/19/25 04:59 Labs: Impressions Chest CT 04/18/25 14:28 IMPRESSION: 1. Fibrotic changes with possible superimposed pneumonia in the lingula. 2. Pneumonia in the left lower lobe. 3. Fibrotic changes in the right upper lobe with superimposed infection is not excluded. 4. Prominent pulmonary artery suggestive of pulmonary hypertension. 5. Narrowing of the main bronchi which may indicate bronchomalacia. 6. Right adrenal adenoma unchanged. Chest X-Ray 04/18/25 16:00 IMPRESSION: Cardiomegaly with cardiac decompensation. Pneumonia with underlying fibrotic changes in the right upper and both lower lobes. Follow-up advised. Head CT 04/18/25 18:15 IMPRESSION: No acute intracranial process. Short CBC 04/18/25 04/19/25 Range/Units 11:57 04:59 WBC 20.2 H 22.4 H (4.5-10.0) K/mm3 Hgb 8.5 L 8.4 L (12.0-15.0) g/dL Hct 28.1 L 27.1 L (37.0-47.0) % Plt Count 320 283 (150-375) k/mm3 BMP 04/18/25 04/19/25 11:57 04:59 Sodium 135 L 140 Potassium 3.7 3.8 Chloride 96 L 102 Carbon Dioxide 32 H 36 H BUN 26 H 14 D Creatinine 1.50 H 0.75 Glucose 85 103 Calcium 7.4 L 8.1 L Cardiac Enzymes 04/18/25 Range/Units 11:57 Troponin I < 0.012 (0.000-0.034) ng/mL Liver Function 04/18/25 04/19/25 Range/Units 11:57 04:59 Total Bilirubin 0.2 0.4 (0.2-1.3) mg/dL AST 26 26 (14-36) U/L ALT 15 12 (6-35) U/L Alkaline Phosphatase 43 46 (38-126) U/L Albumin 3.2 L 3.0 L (3.5-5.1) g/dL Urine 04/18/25 Range/Units 12:07 Urine Color Yellow (Yellow) Urine Appearance Clear (Clear) Urine pH 5.0 (5.0-9.0) Ur Specific [place] 1.012 (1.001-1.035) Urine Protein Negative (Negative) mg/dL Urine Glucose (UA) Negative (Negative) mg/dL Hospitalist MIPS Advance Care Plan I have confirmed that the patient's Advanced Care Plan is present, code status is documented, or surrogate decision maker is listed in patient medical record.: Yes Medication Reconciliation I have utilized all available resources to obtain, update and review the patients current medications (includes all prescriptions, OTC, herbals, cannabis, and nutritional supplements).: Yes
--- NOTE | 2025-04-19 09:40 | PC.NURSE ---
This patient, Gabbi Champagne, was received from JENNIFER Scott on 04/19/25 at 0920. Patient/family oriented to unit policies and routines. Personal items and call light in reach. Bed low and locked. Will continue to monitor. JENNIFER Forde
[2025-04-19 10:22] LABS: Toxigenic C. Diff NEGATIVE (NEGATIVE)
[2025-04-19] MEDS: LIPASE/AMYLASE/PROTEASE 12,000 UNITS CAP 4 CAP PO ×3 (10:29→17:47)
[2025-04-19] MEDS: POTASSIUM PHOS,M-BASIC-D-BASIC 15 MMOL in SODIUM CHLORIDE 0.9% IV 250 ML 63.75 MMOL IVPB (10:29)
[2025-04-19] MEDS: APIXABAN 2.5 MG TABLET PO ×2 (10:29→21:37)
[2025-04-19] MEDS: FIDAXOMICIN 200 MG TABLET PO ×2 (10:29→21:37)
[2025-04-19] MEDS: MAGNESIUM SULF 2 GM/WATER 50ML 2 GM/50 ML BAG IVPB (10:30)
[2025-04-19] MEDS: UMECLIDINIUM/VILANTEROL 62.5-25 MCG ELLIPTA 1 PUFF INHALATION (10:58)
[2025-04-19] MEDS: BUDESONIDE RESPULE NEB 0.5 MG/2 ML AMP INHALATION ×2 (10:59→20:39)
[2025-04-19] MEDS: ATORVASTATIN 40 MG TABLET PO (17:47)
[2025-04-19] MEDS: LOPERAMIDE HCL 2 MG CAPSULE PO (21:50)
[2025-04-19] MEDS: VANCOMYCIN HCL 1,000 MG in SODIUM CHLORIDE 0.9% IV 250 ML 250 MG IVPB (23:04)
[2025-04-20] VITALS (16 sets, daily range): BP systolic 146–151; BP diastolic 71–78; PULSE 79–93; RESP 16–20; TEMP 36.7–36.9; O2SAT 87–97
[2025-04-20 05:29] LABS: Hematocrit 28.7 % (37.0-47.0); Hemoglobin 9.1 g/dL (12.0-15.0); Mean Corpuscular HGB Conc 31.7 g/dl (32-36); Mean Corpuscular Hemoglobin 30.4 pg (26-34); Mean Corpuscular Volume 96.0 fl (80-100); Platelet Count Result 289 k/mm3 (150-375); Red Blood Count 2.99 M/mm3 (4.2-5.4); White Blood Count 17.6 K/mm3 (4.5-10.0)
[2025-04-20 05:34] LABS: Alveolar/Arterial O2 Gradient 66.8 mmHg; Carboxyhemoglobin 0.9 % THb (0-2.0); Fractional Inspired Oxygen 24 %; HCO3 ABG 35.5 mEq/l (22.0-26.0); Methemoglobin ABG 0.1 %THb (0-1.5); Oxygen Content ABG 13.0 %vol (16.0-22.0); Oxygen Saturation ABG 93.0 % (95.0-100.0); PCO2 ABG 40.0 mmHg (35.0-45.0); PO2 ABG 56.7 mmHg (80.0-100.0); PO2 FiO2 Ratio Arterial Blood 2.36 %; Reduced Hemoglobin 8.7 %THb (0-5.0)
[2025-04-20] MEDS: MEROPENEM 1 GM in SODIUM CHLORIDE 0.9% IV 100 ML 200 ML IVPB ×2 (05:34→18:15)
[2025-04-20 05:42] LABS: Liters per Minute 1.0 LPM; Modified Allen's Test Pass; Site Drawn LEFT RADIAL
[2025-04-20 05:43] LABS: Alanine Aminotransferase 13 U/L (6-35); Albumin Level 3.3 g/dL (3.5-5.1); Alkaline Phosphatase 54 U/L (38-126); Anion Gap 8 mmol/L (4-12); Aspartate Amino Transferase 31 U/L (14-36); Bilirubin,Total 0.8 mg/dL (0.2-1.3); Blood Urea Nitrogen 7 mg/dL (7-17); Calcium 7.9 mg/dL (8.4-10.2); Carbon Dioxide 34 mmol/L (22-30); Chloride 96 mmol/L (98-107); Estimated CRCL calculation 62 ml/min; Estimated Glomerular Filt Rate > 60; Glucose 113 mg/dL (65-110); Magnesium 1.3 mg/dL (1.6-2.3); Potassium 2.7 mmol/L (3.4-5.0); Sodium 138 mmol/L (137-145); Total Protein 6.5 g/dL (6.3-8.2)
[2025-04-20 05:47] LABS: INR 1.4; Prothrombin Time 17.5 Seconds (11.1-14.7)
[2025-04-20 05:49] LABS: Partial Thromboplastin Time 55.6 Seconds (22.3-36.8)
[2025-04-20] MEDS: DOXYCYCLINE IV 100 MG in SODIUM CHLORIDE 0.9% IV 100 ML IVPB ×2 (06:21→18:18)
[2025-04-20] MEDS: MAGNESIUM SULF 4 GM/WATER100ML 4 GM/100 ML BAG IVPB (06:30)
[2025-04-20] MEDS: POTASSIUM CHLORIDE 20 MEQ ER TABLET 40 MEQ PO ×2 (06:40→08:55)
[2025-04-20] MEDS: LOPERAMIDE HCL 2 MG CAPSULE PO ×2 (06:43→08:52)
[2025-04-20] MEDS: BUDESONIDE RESPULE NEB 0.5 MG/2 ML AMP INHALATION ×2 (07:14→19:52)
[2025-04-20] MEDS: UMECLIDINIUM/VILANTEROL 62.5-25 MCG ELLIPTA 1 PUFF INHALATION (07:14)
[2025-04-20] MEDS: APIXABAN 2.5 MG TABLET PO ×2 (08:52→20:14)
[2025-04-20] MEDS: HYDROCORTISONE 2.5% CREAM 30 GM TUBE 1 APPLIC TOPICAL (08:53)
[2025-04-20] MEDS: FIDAXOMICIN 200 MG TABLET PO ×2 (08:53→20:14)
[2025-04-20] MEDS: ACETAMINOPHEN 325 MG TABLET 650 MG PO (08:53)
[2025-04-20] MEDS: LIPASE/AMYLASE/PROTEASE 12,000 UNITS CAP 4 CAP PO ×2 (08:53→18:06)
[2025-04-20] MEDS: ONDANSETRON INJ 4 MG/2 ML VIAL IV PUSH ×2 (09:06→15:50)
--- NOTE | 2025-04-20 11:17 | P.PNIM_ITS ---
Progress Note: A&P Assessment and Plan (1) Septic shock: Code(s): A41.9 - Sepsis, unspecified organism; R65.21 - Severe sepsis with septic shock Status: Acute (2) Chronic anticoagulation: Code(s): Z79.01 - skilled nursing (current) use of anticoagulants Status: Acute Assessment and Plan: Resume Eliquis (3) Diarrhea: Code(s): R19.7 - Diarrhea, unspecified Status: Acute Assessment and Plan: [facility] Denies any hematochezia melena or abdominal pain (4) Altered mental status: Qualifiers: Altered mental status type: disorientation Qualified Code(s): R41.0 - Disorientation, unspecified Code(s): R41.82 - Altered mental status, unspecified Status: Acute Assessment and Plan: Altered mental status likely secondary to multiple medications, opioid and sepsis. Head CT was negative (5) COPD (chronic obstructive pulmonary disease): Qualifiers: COPD type: unspecified COPD Qualified Code(s): J44.9 - Chronic obstructive pulmonary disease, unspecified Code(s): J44.9 - Chronic obstructive pulmonary disease, unspecified Status: Chronic Assessment and Plan: History of COPD not in exacerbation. Continue bronchodilators and budesonide (6) Chronic interstitial lung disease: Code(s): J84.9 - Interstitial pulmonary disease, unspecified Status: Acute Assessment and Plan: Continue supplemental oxygen (7) Acute on chronic respiratory failure with hypoxia and hypercapnia: Code(s): J96.21 - Acute and chronic respiratory failure with hypoxia; J96.22 - Acute and chronic respiratory failure with hypercapnia Status: Acute (8) PNA (pneumonia): Code(s): J18.9 - Pneumonia, unspecified organism Status: Acute Assessment and Plan: See above Plan Acute metabolic encephalopathy Secondary to narcotics overdose vs sepsis improving CT head neg hold of narcotics C/W Iv Abx follow culture results septic shock pneumonia Cdiff neg off of Levophed IVF Follow culture results contineu to monitor Diarrhea improving C diff neg Imodium continue to monitor COPD home inhalers Acute and chronic respiratory failure with hypoxia initially on BiPAP improving secondary to pneumonia ABX follow culture results frequent fall fall precautions PT/OT DVT prophylaxis -continue Eliquis Stress ulcer prophylaxis - Nutrition -diet ordered Code Status -patient is DNR DNI Subjective Date/time seen: 04/20/25 11:17 Interval history: per Hpi: agapito Champagne is a 80 year old female will multiple medical problems including pulmonary embolism, peripheral vascular disease, CVA, anemia, C diff, prediabetes, hyperlipidemia, hypertension, chronic respiratory failure requiring 3 L of nasal cannula, diastolic congestive heart failure who [facility] with altered mental status. Patient is on multiple medications that are sedative including opioids [facility]. Patient was found to be hypercarbic and hypotensive. Narcan was administered which led to partial improvement. Patient was placed on BiPAP. Patient was also hypotensive and was given IV antibiotics, IV fluids and started on IV Levophed. Had right IJ central venous catheter was inserted. Patient was transferred to ICU for further evaluation management. In ICU patient showed improvement and Levophed was weaned off last night at 8:30 p.m.. Patient also had improvement in mental status and BiPAP was taken off this morning. 04/20/25 Patient was seen and examined at bedside. she is feeling batter. she is more alert and oriented. denies any chest pain, SOB,a bd pain, N/V. WBC improved to 17.6. has low potassium/mag and phosphate. will replete. continue IV abx. will follow culture results Review of Systems Review of Systems: All systems reviewed & are unremarkable except as noted in HPI and below (HPI) ROS unobtainable: Yes unobtainable due to medical condition and unobtainable due to mental status Exam Narrative: General: Pt is alert awake and in NAD Lungs/Chest: Trachea central Clear BS B/L, No crackles or wheezing. Cardiac: RRR. Normal S1 S2. No murmurs Circulation: Both feet are warm Abdomen: Normal bowel sounds. Obese. Soft. NT. ND. Extremities: No clubbing, cyanosis or edema. Warm : Andrews in place Neurologic:alert oriented x3. no focal sign Skin: No Rash Objective Data Vital Signs Vital Signs: Vital Signs - 24 hr 04/19/25 12:00 04/19/25 12:00 04/19/25 12:04 Temperature 98.2 F Pulse Rate 84 82 Respiratory Rate 20 Blood Pressure 147/62 H Pulse Oximetry 97 97 Oxygen Delivery Nasal Cannula Oxygen Flow Rate 1 04/19/25 14:00 04/19/25 15:57 04/19/25 16:00 Temperature 98.5 F Pulse Rate 93 89 Respiratory Rate 22 H Blood Pressure 147/63 H Pulse Oximetry 97 97 Oxygen Delivery Nasal Cannula Oxygen Flow Rate 1 04/19/25 16:00 04/19/25 18:00 04/19/25 20:00 Temperature Pulse Rate 90 88 Respiratory Rate Blood Pressure Pulse Oximetry 94 Oxygen Delivery Nasal Cannula Oxygen Flow Rate 1 04/19/25 20:00 04/19/25 20:43 04/19/25 20:44 Temperature Pulse Rate 95 87 Respiratory Rate 16 Blood Pressure Pulse Oximetry 94 Oxygen Delivery Nasal Cannula Oxygen Flow Rate 1 04/19/25 20:48 04/19/25 23:48 04/20/25 00:00 Temperature 99.1 F Pulse Rate 85 83 85 Respiratory Rate 16 21 H Blood Pressure 164/70 H Pulse Oximetry 99 Oxygen Delivery Oxygen Flow Rate 04/20/25 04:00 04/20/25 07:16 04/20/25 07:16 Temperature Pulse Rate 82 90 Respiratory Rate 16 Blood Pressure Pulse Oximetry 93 Oxygen Delivery Nasal Cannula Oxygen Flow Rate 1 04/20/25 07:22 04/20/25 07:33 04/20/25 08:00 Temperature 98.3 F Pulse Rate 86 86 86 Respiratory Rate 16 20 Blood Pressure 151/76 H Pulse Oximetry 97 Oxygen Delivery Oxygen Flow Rate 04/20/25 08:30 04/20/25 08:40 Temperature Pulse Rate Respiratory Rate Blood Pressure Pulse Oximetry 87 L 94 Oxygen Delivery Room Air Nasal Cannula Oxygen Flow Rate 1 Intake/Output Intake/Output: Intake & Output 04/17/25 04/18/25 04/19/25 04/20/25 23:59 23:59 23:59 23:59 Intake Total 1649.6 2713.4 650 Output Total 900 4153 2677 Balance 749.6 -1439.6 -2027 Meds/Results Medications: Active Medications Generic Name Dose Route Start Last Admin Trade Name Freq PRN Reason Stop Dose Admin Acetaminophen 650 mg 04/19/25 00:05 04/19/25 00:29 Acetaminophen 650 Mg Suppository RECTAL 650 mg Q6H PRN Administration Mild Pain (1-3) or Fever Acetaminophen 650 mg 04/19/25 08:34 04/20/25 08:53 Acetaminophen 325 Mg Tablet PO 650 mg Q6H PRN Administration Mild Pain (Scale Score 1-4) Albuterol/Ipratropium 3 ml 04/19/25 08:34 Ipratropium 0.5 Mg/Albuterol Sulfate 2.5 Mg Ampul.Neb 3 Ml INHALATION Q6HRT PRN Shortness Of Breath Lipase/Protease/Amylase 4 cap 04/19/25 09:00 04/20/25 08:53 Lipase/Amylase/Protease 12,000 Units Cap PO 4 cap TID DOC Administration Apixaban 2.5 mg 04/19/25 09:00 04/20/25 08:52 Apixaban 2.5 Mg Tablet PO 2.5 mg Q12HR DOC Administration Atorvastatin Calcium 40 mg 04/19/25 18:00 04/19/25 17:47 Atorvastatin 40 Mg Tablet PO 40 mg QPM DOC Administration Bisacodyl 10 mg 04/19/25 08:34 Bisacodyl 10 Mg Suppository RECTAL DAILY PRN constipation Budesonide 0.5 mg 04/19/25 08:45 04/20/25 07:14 Budesonide Respule Neb 0.5 Mg/2 Ml Amp INHALATION 0.5 mg Q12HRT DOC Administration Fidaxomicin 200 mg 04/19/25 08:30 04/20/25 08:53 Fidaxomicin 200 Mg Tablet PO 04/29/25 08:29 200 mg Q12HR DOC Administration Hydrocortisone 1 applic 04/19/25 08:34 04/20/25 08:53 Hydrocortisone 2.5% Cream 30 Gm Tube TOPICAL 1 applic QID PRN Administration Itching Doxycycline Hyclate 100 mg/ 100 mls @ 100 mls/hr 04/19/25 06:00 04/20/25 07:54 Sodium Chloride IVPB Infused Q12H DOC Infusion Meropenem 1 gm/ Sodium 100 mls @ 200 mls/hr 04/19/25 06:00 04/20/25 07:54 Chloride IVPB Infused Q12H DOC Infusion Loperamide HCl 2 mg 04/19/25 18:03 04/20/25 08:52 Loperamide Hcl 2 Mg Capsule PO 2 mg PRN PRN Administration Diarrhea Naloxone HCl 0.4 mg 04/18/25 16:30 Naloxone Hcl 0.4 Mg/Ml Vial IV PUSH Q5MIN PRN Overdose Ondansetron HCl 4 mg 04/20/25 08:59 04/20/25 09:06 Ondansetron Inj 4 Mg/2 Ml Vial IV PUSH 4 mg Q6H PRN Administration Nausea And Vomiting Polyethylene Glycol 17 gm 04/19/25 08:34 Polyethylene Glycol 3350 17 Gm Powd.Pack PO QAM PRN Constipation Sodium Chloride 20 ml 04/18/25 15:29 Central Line Flush IV PUSH PRN PRN after blood draws Sodium Chloride 20 ml 04/18/25 19:04 04/19/25 05:13 Central Line Flush IV PUSH 20 ml PRN PRN Administration after blood draws Umeclidinium/Vilanterol 1 puff 04/19/25 08:45 04/20/25 07:14 Umeclidinium/Vilanterol 62.5-25 Mcg Ellipta INHALATION 1 puff DAILYRT DOC Administration Vancomycin HCl 1 each 04/18/25 15:12 Vancomycin For Acute Kidney Injury IVPB PRN PRN Vancomycin Protocol Radiology Results: ITS Impressions Chest CT 04/18/25 14:28 IMPRESSION: 1. Fibrotic changes with possible superimposed pneumonia in the lingula. 2. Pneumonia in the left lower lobe. 3. Fibrotic changes in the right upper lobe with superimposed infection is not excluded. 4. Prominent pulmonary artery suggestive of pulmonary hypertension. 5. Narrowing of the main bronchi which may indicate bronchomalacia. 6. Right adrenal adenoma unchanged. Chest X-Ray 04/18/25 16:00 IMPRESSION: Cardiomegaly with cardiac decompensation. Pneumonia with underlying fibrotic changes in the right upper and both lower lobes. Follow-up advised. Head CT 04/18/25 18:15 IMPRESSION: No acute intracranial process. Labs Labs: Laboratory Results - last 24 hr 04/19/25 04/20/25 04/20/25 21:36 05:19 05:22 WBC RBC Hgb Hct MCV MCH MCHC RDW Plt Count MPV PT 17.5 H INR 1.4 APTT 55.6 H Puncture Site Left radial ABG pH 7.566 H* ABG pCO2 40.0 ABG pO2 56.7 L ABG PO2/FiO2 Ratio 2.36 ABG HCO3 35.5 H ABG O2 Saturation 93.0 L ABG O2 Content 13.0 L ABG Base Excess 12.3 A-a Gradient 66.8 Oxyhemoglobin 90.3 Carboxyhemoglobin 0.9 Methemoglobin 0.1 Reduced Hemoglobin 8.7 H Total Hemoglobin 10.2 L O2 Delivery Device Nasal cannula O2 Liters/Min 1.0 FiO2 24 Sodium Potassium Chloride Carbon Dioxide Anion Gap BUN Creatinine Estim Creat Clear Calc Estimated GFR Glucose Lactic Acid Calcium Phosphorus Magnesium Total Bilirubin AST ALT Alkaline Phosphatase Total Protein Albumin Random Vancomycin < 5.0 L 04/20/25 05:23 WBC 17.6 H RBC 2.99 L Hgb 9.1 L Hct 28.7 L MCV 96.0 MCH 30.4 MCHC 31.7 L RDW 13.5 Plt Count 289 MPV 11.2 H PT INR APTT Puncture Site ABG pH ABG pCO2 ABG pO2 ABG PO2/FiO2 Ratio ABG HCO3 ABG O2 Saturation ABG O2 Content ABG Base Excess A-a Gradient Oxyhemoglobin Carboxyhemoglobin Methemoglobin Reduced Hemoglobin Total Hemoglobin O2 Delivery Device O2 Liters/Min FiO2 Sodium 138 Potassium 2.7 L* Chloride 96 L Carbon Dioxide 34 H Anion Gap 8 BUN 7 D Creatinine 0.56 L Estim Creat Clear Calc 62 Estimated GFR > 60 Glucose 113 H Lactic Acid 0.8 Calcium 7.9 L Phosphorus 2.1 L Magnesium 1.3 L Total Bilirubin 0.8 AST 31 ALT 13 Alkaline Phosphatase 54 Total Protein 6.5 Albumin 3.3 L Random Vancomycin Quality VTE Prophylaxis VTE prophylaxis: mechanical ordered
[2025-04-20 14:06] LABS: Anion Gap 6 mmol/L (4-12); Blood Urea Nitrogen 7 mg/dL (7-17); Calcium 8.0 mg/dL (8.4-10.2); Carbon Dioxide 32 mmol/L (22-30); Chloride 97 mmol/L (98-107); Estimated CRCL calculation 59 ml/min; Estimated Glomerular Filt Rate > 60; Glucose 114 mg/dL (65-110); Potassium 3.9 mmol/L (3.4-5.0); Sodium 135 mmol/L (137-145)
[2025-04-20] MEDS: DICLOFENAC SODIUM 1% 100 GM GEL (*BKC) 1 APPLIC TOPICAL ×3 (14:09→20:15)
[2025-04-20] MEDS: ATORVASTATIN 40 MG TABLET PO (18:06)
[2025-04-20] MEDS: ASCORBIC ACID 500 MG TABLET PO (18:07)
[2025-04-20] MEDS: PREGABALIN (*CRX) 75 MG CAPSULE 150 MG PO (18:07)
[2025-04-20] MEDS: ARTIFICIAL TEARS OPHTH SOLN 15 ML BOTTLE 1 DROP EACH EYE (18:15)
[2025-04-20] MEDS: IPRATROPIUM 0.5 MG/ALBUTEROL SULFATE 2.5 MG AMPUL.NEB 3 ML INHALATION (19:52)
[2025-04-20] MEDS: FLUTICASONE PROPIONATE 0.05% NA SPR 16 GM BTL (*BKC) 1 SPRAY NASAL (20:15)
[2025-04-20] MEDS: VANCOMYCIN 1,500 MG/NS 500 ML 1,500 MG/500 ML BAG 250 MG IVPB (22:18)
[2025-04-21] VITALS (13 sets, daily range): BP systolic 102–111; BP diastolic 50–58; PULSE 67–95; RESP 15–20; TEMP 36.2–36.8; O2SAT 94–97; BMI 25.7
[2025-04-21] MEDS: ONDANSETRON INJ 4 MG/2 ML VIAL IV PUSH ×2 (02:39→08:12)
[2025-04-21] MEDS: ACETAMINOPHEN 325 MG TABLET 650 MG PO ×3 (02:56→17:39)
[2025-04-21] MEDS: DOXYCYCLINE IV 100 MG in SODIUM CHLORIDE 0.9% IV 100 ML IVPB (05:13)
[2025-04-21 05:35] LABS: Hematocrit 26.8 % (37.0-47.0); Hemoglobin 8.3 g/dL (12.0-15.0); Mean Corpuscular HGB Conc 31.0 g/dl (32-36); Mean Corpuscular Hemoglobin 30.5 pg (26-34); Mean Corpuscular Volume 98.5 fl (80-100); Platelet Count Result 299 k/mm3 (150-375); Red Blood Count 2.72 M/mm3 (4.2-5.4); White Blood Count 16.0 K/mm3 (4.5-10.0)
[2025-04-21 05:48] LABS: INR 1.7; Prothrombin Time 19.7 Seconds (11.1-14.7)
[2025-04-21 05:49] LABS: Partial Thromboplastin Time 63.3 Seconds (22.3-36.8)
[2025-04-21 05:54] LABS: Alveolar/Arterial O2 Gradient 39.3 mmHg; Carboxyhemoglobin 1.0 % THb (0-2.0); Fractional Inspired Oxygen 24 %; HCO3 ABG 31.6 mEq/l (22.0-26.0); Methemoglobin ABG 0.1 %THb (0-1.5); Oxygen Content ABG 12.2 %vol (16.0-22.0); Oxygen Saturation ABG 95.4 % (95.0-100.0); PCO2 ABG 47.6 mmHg (35.0-45.0); PO2 ABG 75.2 mmHg (80.0-100.0); PO2 FiO2 Ratio Arterial Blood 3.13 %; Reduced Hemoglobin 5.4 %THb (0-5.0)
[2025-04-21 05:55] LABS: Site Drawn LEFT BRACHIAL
[2025-04-21 05:56] LABS: Liters per Minute 1.0 LPM
[2025-04-21] MEDS: IPRATROPIUM 0.5 MG/ALBUTEROL SULFATE 2.5 MG AMPUL.NEB 3 ML INHALATION (06:00)
[2025-04-21] MEDS: BUDESONIDE RESPULE NEB 0.5 MG/2 ML AMP INHALATION ×2 (06:00→21:11)
[2025-04-21] MEDS: MEROPENEM 1 GM in SODIUM CHLORIDE 0.9% IV 100 ML 200 ML IVPB (06:22)
[2025-04-21 06:31] LABS: Alanine Aminotransferase 12 U/L (6-35); Albumin Level 3.0 g/dL (3.5-5.1); Alkaline Phosphatase 42 U/L (38-126); Anion Gap 4 mmol/L (4-12); Aspartate Amino Transferase 33 U/L (14-36); Bilirubin,Total 0.5 mg/dL (0.2-1.3); Blood Urea Nitrogen 7 mg/dL (7-17); Calcium 7.6 mg/dL (8.4-10.2); Carbon Dioxide 30 mmol/L (22-30); Chloride 102 mmol/L (98-107); Estimated CRCL calculation 59 ml/min; Estimated Glomerular Filt Rate > 60; Glucose 105 mg/dL (65-110); Magnesium 2.1 mg/dL (1.6-2.3); Potassium 3.9 mmol/L (3.4-5.0); Sodium 136 mmol/L (137-145); Total Protein 6.0 g/dL (6.3-8.2)
[2025-04-21] MEDS: FIDAXOMICIN 200 MG TABLET PO (08:11)
[2025-04-21] MEDS: PREGABALIN (*CRX) 75 MG CAPSULE 150 MG PO ×2 (08:11→17:27)
[2025-04-21] MEDS: ASCORBIC ACID 500 MG TABLET PO ×2 (08:12→17:27)
[2025-04-21] MEDS: FOLIC ACID 1 MG TABLET PO (08:12)
[2025-04-21] MEDS: CYANOCOBALAMIN 500 MCG TABLET PO (08:12)
[2025-04-21] MEDS: APIXABAN 2.5 MG TABLET PO ×2 (08:12→20:00)
[2025-04-21] MEDS: CHOLECALCIFEROL (VITAMIN D3) 25 MCG (1,000 UNITS) TABLET PO (08:12)
[2025-04-21] MEDS: FERROUS SULFATE 325 MG TABLET DR BY MOUTH (08:12)
[2025-04-21] MEDS: LORATADINE 10 MG TABLET PO (08:12)
[2025-04-21] MEDS: FLUTICASONE PROPIONATE 0.05% NA SPR 16 GM BTL (*BKC) 1 SPRAY NASAL (08:13)
[2025-04-21] MEDS: ARTIFICIAL TEARS OPHTH SOLN 15 ML BOTTLE 1 DROP EACH EYE ×2 (08:14→17:28)
[2025-04-21] MEDS: DICLOFENAC SODIUM 1% 100 GM GEL (*BKC) 1 APPLIC TOPICAL ×3 (08:14→20:06)
[2025-04-21] MEDS: LIPASE/AMYLASE/PROTEASE 12,000 UNITS CAP 4 CAP PO ×2 (13:06→17:28)
--- NOTE | 2025-04-21 13:44 | P.PNIM_ITS ---
Progress Note: A&P Assessment and Plan (1) Septic shock: Code(s): A41.9 - Sepsis, unspecified organism; R65.21 - Severe sepsis with septic shock Status: Acute (2) Chronic anticoagulation: Code(s): Z79.01 - assisted (current) use of anticoagulants Status: Acute Assessment and Plan: Resume Eliquis (3) Diarrhea: Code(s): R19.7 - Diarrhea, unspecified Status: Acute Assessment and Plan: Patient reports diarrhea at [facility]. Denies any hematochezia melena or abdominal pain (4) Altered mental status: Qualifiers: Altered mental status type: disorientation Qualified Code(s): R41.0 - Disorientation, unspecified Code(s): R41.82 - Altered mental status, unspecified Status: Acute Assessment and Plan: Altered mental status likely secondary to multiple medications, opioid and sepsis. Head CT was negative (5) COPD (chronic obstructive pulmonary disease): Qualifiers: COPD type: unspecified COPD Qualified Code(s): J44.9 - Chronic obstructive pulmonary disease, unspecified Code(s): J44.9 - Chronic obstructive pulmonary disease, unspecified Status: Chronic Assessment and Plan: History of COPD not in exacerbation. Continue bronchodilators and budesonide (6) Chronic interstitial lung disease: Code(s): J84.9 - Interstitial pulmonary disease, unspecified Status: Acute Assessment and Plan: Continue supplemental oxygen (7) Acute on chronic respiratory failure with hypoxia and hypercapnia: Code(s): J96.21 - Acute and chronic respiratory failure with hypoxia; J96.22 - Acute and chronic respiratory failure with hypercapnia Status: Acute (8) PNA (pneumonia): Code(s): J18.9 - Pneumonia, unspecified organism Status: Acute Assessment and Plan: See above Plan Acute metabolic encephalopathy Secondary to narcotics overdose vs sepsis improving CT head neg hold off narcotics C/W Iv Abx follow culture results septic shock pneumonia Cdiff neg off of Levophed received IVF Follow culture results contineu to monitor Diarrhea improving C diff neg Imodium continue to monitor COPD home inhalers Acute and chronic respiratory failure with hypoxia initially on BiPAP improving secondary to pneumonia ABX follow culture results frequent fall fall precautions PT/OT hypocalcemia Tums mild hyponatremia monitor Obesity lifestyle modification DVT prophylaxis -continue Eliquis Stress ulcer prophylaxis - Nutrition -diet ordered Code Status -patient is DNR DNI Subjective Date/time seen: 04/21/25 13:44 Interval history: per Hpi: martajordan Champagne is a 80 year old female will multiple medical problems including pulmonary embolism, peripheral vascular disease, CVA, anemia, C diff, prediabetes, hyperlipidemia, hypertension, chronic respiratory failure requiring 3 L of nasal cannula, diastolic congestive heart failure who is a resident of [facility] yesterday with altered mental status. Patient is on multiple medications that are sedative including opioids at [facility]. Patient was found to be hypercarbic and hypotensive. Narcan was administered which led to partial improvement. Patient was placed on BiPAP. Patient was also hypotensive and was given IV antibiotics, IV fluids and started on IV Levophed. Had right IJ central venous catheter was inserted. Patient was transferred to ICU for further evaluation management. In ICU patient showed improvement and Levophed was weaned off last night at 8:30 p.m.. Patient also had improvement in mental status and BiPAP was taken off this morning. 04/20/25 WBC improved to 17.6. has low potassium/mag and phosphate. will replete. continue IV abx. will follow culture results 04/21/25 Patient was seen and examined at bedside. she is feeling batter. she is more alert and oriented. denies any chest pain, SOB,a bd pain, N/V. Patient was seen and examined at bedside. she is feeling fine. has been nauseated this morning, asking for Compazine instead Zofran. Her POA asking to d ischarge to different SNF. child care worker was informed. WBC 16. Continue IV Abx . follow culture results. possible discharge in 1-2 days. pending placement and culture results. Review of Systems Review of Systems: All systems reviewed & are unremarkable except as noted in HPI and below (HPI) ROS unobtainable: Yes unobtainable due to medical condition and unobtainable due to mental status Exam Narrative: General: Pt is alert awake and in NAD Lungs/Chest: Trachea central Clear BS B/L, No crackles or wheezing. Cardiac: RRR. Normal S1 S2. No murmurs Circulation: Both feet are warm Abdomen: Normal bowel sounds. Obese. Soft. NT. ND. Extremities: No clubbing, cyanosis or edema. Warm : Andrews in place Neurologic:alert oriented x3. no focal sign Skin: No Rash Objective Data Vital Signs Vital Signs: Vital Signs - 24 hr 04/20/25 16:00 04/20/25 16:08 04/20/25 19:54 Temperature 98.1 F Pulse Rate 93 90 Respiratory Rate 20 Blood Pressure 150/71 H Pulse Oximetry 92 94 Oxygen Delivery Nasal Cannula Oxygen Flow Rate 1 Fraction of Inspired Oxygen 04/20/25 19:55 04/20/25 20:00 04/20/25 20:00 Temperature Pulse Rate 81 80 Respiratory Rate 16 Blood Pressure Pulse Oximetry 94 Oxygen Delivery Nasal Cannula Oxygen Flow Rate 1 Fraction of Inspired Oxygen 04/20/25 20:04 04/20/25 23:44 04/21/25 00:00 Temperature 98.4 F Pulse Rate 79 86 70 Respiratory Rate 16 17 Blood Pressure 146/78 H Pulse Oximetry 94 Oxygen Delivery Oxygen Flow Rate Fraction of Inspired Oxygen 04/21/25 04:00 04/21/25 06:00 04/21/25 06:10 Temperature Pulse Rate 82 71 74 Respiratory Rate 18 18 Blood Pressure Pulse Oximetry Oxygen Delivery Oxygen Flow Rate Fraction of Inspired Oxygen 04/21/25 07:45 04/21/25 08:00 04/21/25 08:00 Temperature 97.6 F Pulse Rate 76 77 77 Respiratory Rate 18 18 Blood Pressure 111/58 L Pulse Oximetry 94 94 Oxygen Delivery Nasal Cannula Oxygen Flow Rate 1 Fraction of Inspired Oxygen 30 Intake/Output Intake/Output: Intake & Output 04/18/25 04/19/25 04/20/25 04/21/25 23:59 23:59 23:59 23:59 Intake Total 1649.6 2713.4 1050 840 Output Total 900 4153 3477 350 Balance 749.6 -1439.6 -2427 490 Meds/Results Medications: Active Medications Generic Name Dose Route Start Last Admin Trade Name Freq PRN Reason Stop Dose Admin Acetaminophen 650 mg 04/19/25 00:05 04/19/25 00:29 Acetaminophen 650 Mg Suppository RECTAL 650 mg Q6H PRN Administration Mild Pain (1-3) or Fever Acetaminophen 650 mg 04/19/25 08:34 04/21/25 08:19 Acetaminophen 325 Mg Tablet PO 650 mg Q6H PRN Administration Mild Pain (Scale Score 1-4) Albuterol 2.5 mg 04/20/25 11:28 Albuterol Sulfate Neb 2.5 Mg/3 Ml Inh INHALATION QIDRT PRN Shortness Of Breath Albuterol/Ipratropium 3 ml 04/19/25 08:34 04/21/25 06:00 Ipratropium 0.5 Mg/Albuterol Sulfate 2.5 Mg Ampul.Neb 3 Ml INHALATION 3 ml Q6HRT PRN Administration Shortness Of Breath Lipase/Protease/Amylase 4 cap 04/19/25 09:00 04/21/25 13:06 Lipase/Amylase/Protease 12,000 Units Cap PO 4 cap TID DOC Administration Apixaban 2.5 mg 04/19/25 09:00 04/21/25 08:12 Apixaban 2.5 Mg Tablet PO 2.5 mg Q12HR DOC Administration Artificial Tears 1 drop 04/20/25 17:00 04/21/25 08:14 Artificial Tears Ophth Soln 15 Ml Bottle EACH EYE 1 drop BID DOC Administration Ascorbic Acid 500 mg 04/20/25 17:00 04/21/25 08:12 Ascorbic Acid 500 Mg Tablet PO 500 mg BID DOC Administration Atorvastatin Calcium 40 mg 04/19/25 18:00 04/20/25 18:06 Atorvastatin 40 Mg Tablet PO 40 mg QPM DOC Administration Baclofen 10 mg 04/20/25 11:28 Baclofen 10 Mg Tablet PO Q6H PRN moderate pain Budesonide 0.5 mg 04/19/25 08:45 04/21/25 06:00 Budesonide Respule Neb 0.5 Mg/2 Ml Amp INHALATION 0.5 mg Q12HRT DOC Administration Bupropion HCl 75 mg 04/21/25 09:00 04/21/25 08:12 Bupropion Hcl 75 Mg Tablet PO 75 mg DAILY DOC Administration Cyanocobalamin 500 mcg 04/21/25 09:00 04/21/25 08:12 Cyanocobalamin 500 Mcg Tablet PO 500 mcg DAILY DOC Administration Diclofenac Sodium 1 applic 04/20/25 13:00 04/21/25 13:06 Diclofenac Sodium 1% 100 Gm Gel (*Bkc) TOPICAL 1 applic QID DOC Administration Ferrous Sulfate 325 mg 04/21/25 09:00 04/21/25 08:12 Ferrous Sulfate [address] BY MOUTH 325 mg DAILY DOC Administration Fluticasone Propionate 1 spray 04/20/25 21:00 04/21/25 08:13 Fluticasone Propionate 0.05% Na Spr 16 Gm Btl (*Bkc) NASAL 1 spray Q12HR DOC Administration Folic Acid 1 mg 04/21/25 09:00 04/21/25 08:12 Folic Acid 1 Mg Tablet PO 1 mg DAILY DOC Administration Hydrocortisone 1 applic 04/19/25 08:34 04/20/25 08:53 Hydrocortisone 2.5% Cream 30 Gm Tube TOPICAL 1 applic QID PRN Administration Itching Levofloxacin 750 mg 04/21/25 14:00 04/21/25 13:07 Levofloxacin 750 Mg Tablet PO 750 mg DAILY@1400 DOC Administration Loperamide HCl 2 mg 04/19/25 18:03 04/20/25 08:52 Loperamide Hcl 2 Mg Capsule PO 2 mg PRN PRN Administration Diarrhea Loratadine 10 mg 04/21/25 09:00 04/21/25 08:12 Loratadine 10 Mg Tablet PO 10 mg QAM DOC Administration Naloxone HCl 0.4 mg 04/18/25 16:30 Naloxone Hcl 0.4 Mg/Ml Vial IV PUSH Q5MIN PRN Overdose Ondansetron HCl 4 mg 04/20/25 08:59 04/21/25 08:12 Ondansetron Inj 4 Mg/2 Ml Vial IV PUSH 4 mg Q6H PRN Administration Nausea And Vomiting Pregabalin 150 mg 04/20/25 17:00 04/21/25 08:11 Pregabalin (*Crx) 75 Mg Capsule PO 150 mg BID DOC Administration Prochlorperazine Edisylate 10 mg 04/21/25 10:14 Prochlorperazine Edisylate 10 Mg/2 Ml Vial IV PUSH Q6H PRN Nausea And Vomiting Sodium Chloride 20 ml 04/18/25 15:29 Central Line Flush IV PUSH PRN PRN after blood draws Sodium Chloride 20 ml 04/18/25 19:04 04/19/25 05:13 Central Line Flush IV PUSH 20 ml PRN PRN Administration after blood draws Umeclidinium/Vilanterol 1 puff 04/19/25 08:45 04/20/25 07:14 Umeclidinium/Vilanterol 62.5-25 Mcg Ellipta INHALATION 1 puff DAILYRT DOC Administration Vitamin D 25 mcg 04/21/25 09:00 04/21/25 08:12 Cholecalciferol (Vitamin D3) 25 Mcg (1,000 Units) Tablet PO 25 mcg DAILY DOC Administration Radiology Results: ITS Impressions Chest CT 04/18/25 14:28 IMPRESSION: 1. Fibrotic changes with possible superimposed pneumonia in the lingula. 2. Pneumonia in the left lower lobe. 3. Fibrotic changes in the right upper lobe with superimposed infection is not excluded. 4. Prominent pulmonary artery suggestive of pulmonary hypertension. 5. Narrowing of the main bronchi which may indicate bronchomalacia. 6. Right adrenal adenoma unchanged. Chest X-Ray 04/18/25 16:00 IMPRESSION: Cardiomegaly with cardiac decompensation. Pneumonia with underlying fibrotic changes in the right upper and both lower lobes. Follow-up advised. Head CT 04/18/25 18:15 IMPRESSION: No acute intracranial process. Labs Labs: Laboratory Results - last 24 hr 04/20/25 04/20/25 04/21/25 13:20 17:32 05:12 WBC 16.0 H RBC 2.72 L Hgb 8.3 L Hct 26.8 L MCV 98.5 MCH 30.5 MCHC 31.0 L RDW 13.7 Plt Count 299 MPV 11.5 H PT 19.7 H INR 1.7 APTT 63.3 H Puncture Site ABG pH ABG pCO2 ABG pO2 ABG PO2/FiO2 Ratio ABG HCO3 ABG O2 Saturation ABG O2 Content ABG Base Excess A-a Gradient Oxyhemoglobin Carboxyhemoglobin Methemoglobin Reduced Hemoglobin Total Hemoglobin O2 Delivery Device O2 Liters/Min FiO2 Sodium 135 L 136 L Potassium 3.9 3.9 Chloride 97 L 102 Carbon Dioxide 32 H 30 Anion Gap 6 4 BUN 7 7 Creatinine 0.59 L 0.60 L Estim Creat Clear Calc 59 59 Estimated GFR > 60 > 60 Glucose 114 H 105 Calcium 8.0 L 7.6 L Phosphorus 2.9 Magnesium 2.1 Total Bilirubin 0.5 AST 33 ALT 12 Alkaline Phosphatase 42 Total Protein 6.0 L Albumin 3.0 L Random Vancomycin 6.9 L 04/21/25 05:45 WBC RBC Hgb Hct MCV MCH MCHC RDW Plt Count MPV PT INR APTT Puncture Site Left brachial ABG pH 7.440 ABG pCO2 47.6 H ABG pO2 75.2 L ABG PO2/FiO2 Ratio 3.13 ABG HCO3 31.6 H ABG O2 Saturation 95.4 ABG O2 Content 12.2 L ABG Base Excess 6.7 A-a Gradient 39.3 Oxyhemoglobin 93.5 Carboxyhemoglobin 1.0 Methemoglobin 0.1 Reduced Hemoglobin 5.4 H Total Hemoglobin 9.2 L O2 Delivery Device Nasal cannula O2 Liters/Min 1.0 FiO2 24 Sodium Potassium Chloride Carbon Dioxide Anion Gap BUN Creatinine Estim Creat Clear Calc Estimated GFR Glucose Calcium Phosphorus Magnesium Total Bilirubin AST ALT Alkaline Phosphatase Total Protein Albumin Random Vancomycin Quality VTE Prophylaxis VTE prophylaxis: mechanical ordered
--- NOTE | 2025-04-21 13:49 | PC.NURSE ---
Report called to JENNIFER Angelo on [facility]. Denies further questions.
[2025-04-21] MEDS: PROCHLORPERAZINE EDISYLATE 10 MG/2 ML VIAL IV PUSH ×2 (14:05→20:11)
--- NOTE | 2025-04-21 14:45 | PC.NURSE ---
Patient family member Stefanie contacted to inform her that the patient was transferred to a new room 255. Verbalizes understanding.
[2025-04-21] MEDS: LOPERAMIDE HCL 2 MG CAPSULE PO ×2 (16:29→20:00)
[2025-04-21] MEDS: CALCIUM CARBONATE (TUMS) 500 MG (200 MG ELEMENTAL) PO (17:27)
[2025-04-21] MEDS: ATORVASTATIN 40 MG TABLET PO (17:29)
--- NOTE | 2025-04-21 18:00 | PC.NURSE ---
Patient's MAYA Watts is requesting nursing staff to not give any further updates to [facility]. Stefanie stated they are not having the patient return to this facility due to ongoing dispute of care. Will pass this message along to shop helper RN.
[2025-04-21] MEDS: BACLOFEN 10 MG TABLET PO (20:00)
[2025-04-22] VITALS (15 sets, daily range): BP systolic 102–131; BP diastolic 46–59; PULSE 69–96; RESP 14–20; TEMP 36.6–36.8; O2SAT 90–96
[2025-04-22 04:53] LABS: Hematocrit 28.9 % (37.0-47.0); Hemoglobin 8.9 g/dL (12.0-15.0); Mean Corpuscular HGB Conc 30.8 g/dl (32-36); Mean Corpuscular Hemoglobin 30.8 pg (26-34); Mean Corpuscular Volume 100.0 fl (80-100); Platelet Count Result 310 k/mm3 (150-375); Red Blood Count 2.89 M/mm3 (4.2-5.4); White Blood Count 17.0 K/mm3 (4.5-10.0)
[2025-04-22] MEDS: BACLOFEN 10 MG TABLET PO ×2 (04:53→17:52)
[2025-04-22] MEDS: LOPERAMIDE HCL 2 MG CAPSULE PO ×3 (04:53→21:31)
[2025-04-22 05:22] LABS: Alanine Aminotransferase 12 U/L (6-35); Albumin Level 3.3 g/dL (3.5-5.1); Alkaline Phosphatase 45 U/L (38-126); Anion Gap 3 mmol/L (4-12); Aspartate Amino Transferase 29 U/L (14-36); Bilirubin,Total 0.3 mg/dL (0.2-1.3); Blood Urea Nitrogen 12 mg/dL (7-17); Calcium 8.5 mg/dL (8.4-10.2); Carbon Dioxide 31 mmol/L (22-30); Chloride 101 mmol/L (98-107); Estimated CRCL calculation 52 ml/min; Estimated Glomerular Filt Rate > 60; Glucose 86 mg/dL (65-110); Magnesium 1.9 mg/dL (1.6-2.3); Potassium 3.8 mmol/L (3.4-5.0); Sodium 135 mmol/L (137-145); Total Protein 6.3 g/dL (6.3-8.2)
[2025-04-22] MEDS: BUDESONIDE RESPULE NEB 0.5 MG/2 ML AMP INHALATION ×2 (07:34→20:59)
[2025-04-22] MEDS: UMECLIDINIUM/VILANTEROL 62.5-25 MCG ELLIPTA 1 PUFF INHALATION (07:34)
[2025-04-22] MEDS: APIXABAN 2.5 MG TABLET PO ×2 (09:13→21:31)
[2025-04-22] MEDS: LORATADINE 10 MG TABLET PO (09:13)
[2025-04-22] MEDS: CALCIUM CARBONATE (TUMS) 500 MG (200 MG ELEMENTAL) PO ×2 (09:13→17:22)
[2025-04-22] MEDS: ACETAMINOPHEN 325 MG TABLET 650 MG PO ×2 (09:13→14:50)
[2025-04-22] MEDS: CYANOCOBALAMIN 500 MCG TABLET PO (09:13)
[2025-04-22] MEDS: LIPASE/AMYLASE/PROTEASE 12,000 UNITS CAP 4 CAP PO ×3 (09:13→17:23)
[2025-04-22] MEDS: CHOLECALCIFEROL (VITAMIN D3) 25 MCG (1,000 UNITS) TABLET PO (09:13)
[2025-04-22] MEDS: PREGABALIN (*CRX) 75 MG CAPSULE 150 MG PO ×2 (09:13→17:22)
[2025-04-22] MEDS: ASCORBIC ACID 500 MG TABLET PO ×2 (09:13→17:22)
[2025-04-22] MEDS: FERROUS SULFATE 325 MG TABLET DR BY MOUTH (09:13)
[2025-04-22] MEDS: FOLIC ACID 1 MG TABLET PO (09:13)
[2025-04-22] MEDS: DICLOFENAC SODIUM 1% 100 GM GEL (*BKC) 1 APPLIC TOPICAL ×4 (09:15→21:34)
[2025-04-22] MEDS: FLUTICASONE PROPIONATE 0.05% NA SPR 16 GM BTL (*BKC) 1 SPRAY NASAL (09:15)
[2025-04-22] MEDS: ARTIFICIAL TEARS OPHTH SOLN 15 ML BOTTLE 1 DROP EACH EYE ×2 (09:16→17:23)
--- NOTE | 2025-04-22 11:41 | PM.IMPN ---
Progress Note: A&P Assessment and Plan (1) Septic shock: Code(s): A41.9 - Sepsis, unspecified organism; R65.21 - Severe sepsis with septic shock Status: Acute (2) Chronic anticoagulation: Code(s): Z79.01 - half-way (current) use of anticoagulants Status: Acute Assessment and Plan: Resume Eliquis (3) Diarrhea: Code(s): R19.7 - Diarrhea, unspecified Status: Acute Assessment and Plan: Patient reports diarrhea at half-way. Denies any hematochezia melena or abdominal pain (4) Altered mental status: Qualifiers: Altered mental status type: disorientation Qualified Code(s): R41.0 - Disorientation, unspecified Code(s): R41.82 - Altered mental status, unspecified Status: Acute Assessment and Plan: Altered mental status likely secondary to multiple medications, opioid and sepsis. Head CT was negative (5) COPD (chronic obstructive pulmonary disease): Qualifiers: COPD type: unspecified COPD Qualified Code(s): J44.9 - Chronic obstructive pulmonary disease, unspecified Code(s): J44.9 - Chronic obstructive pulmonary disease, unspecified Status: Chronic Assessment and Plan: History of COPD not in exacerbation. Continue bronchodilators and budesonide (6) Chronic interstitial lung disease: Code(s): J84.9 - Interstitial pulmonary disease, unspecified Status: Acute Assessment and Plan: Continue supplemental oxygen (7) Acute on chronic respiratory failure with hypoxia and hypercapnia: Code(s): J96.21 - Acute and chronic respiratory failure with hypoxia; J96.22 - Acute and chronic respiratory failure with hypercapnia Status: Acute (8) PNA (pneumonia): Code(s): J18.9 - Pneumonia, unspecified organism Status: Acute Assessment and Plan: See above Plan Acute metabolic encephalopathy, resolved Secondary to narcotics overdose vs sepsis improving CT head neg hold off narcotics C/W Iv Abx follow culture results septic shock pneumonia Cdiff neg off of Levophed received IVF on Levaquin Diarrhea improving C diff neg Imodium continue to monitor COPD home inhalers Acute and chronic respiratory failure with hypoxia s/p BiPAP, now at baseline 2 liters oxygen improving secondary to pneumonia ABX follow culture results frequent fall fall precautions PT/OT hypocalcemia Tums mild hyponatremia monitor Obesity lifestyle modification DVT prophylaxis -continue Eliquis Stress ulcer prophylaxis - Nutrition -diet ordered Code Status -patient is DNR DNI Subjective Date/time seen: 04/22/25 11:41 Interval history: Patient comfortable at bedside WBC still elevated, monitor one more day Review of Systems Review of Systems: All systems reviewed & are unremarkable except as noted in HPI and below (HPI) ROS unobtainable: Yes unobtainable due to medical condition and unobtainable due to mental status Exam Narrative: General: Pt is alert awake and in NAD Lungs/Chest: Trachea central Clear BS B/L, No crackles or wheezing. Cardiac: RRR. Normal S1 S2. No murmurs Circulation: Both feet are warm Abdomen: Normal bowel sounds. Obese. Soft. NT. ND. Extremities: No clubbing, cyanosis or edema. Warm : Andrews in place Neurologic:alert oriented x3. no focal sign Skin: No Rash Objective Data Vital Signs Vital Signs: Vital Signs - 24 hr 04/21/25 14:24 04/21/25 16:00 04/21/25 20:00 Temperature 98.3 F Pulse Rate 78 95 Respiratory Rate 16 Blood Pressure 111/52 L Pulse Oximetry 97 95 Oxygen Delivery Nasal Cannula Oxygen Flow Rate 1 Fraction of Inspired Oxygen 04/21/25 20:00 04/21/25 21:12 04/21/25 21:14 Temperature Pulse Rate 88 83 83 Respiratory Rate 20 20 Blood Pressure Pulse Oximetry 95 Oxygen Delivery Nasal Cannula Oxygen Flow Rate 1 Fraction of Inspired Oxygen 04/21/25 21:49 04/21/25 22:37 04/22/25 00:00 Temperature 97.2 F L Pulse Rate 78 67 70 Respiratory Rate 20 15 Blood Pressure 102/50 L Pulse Oximetry 95 97 Oxygen Delivery BiPAP Oxygen Flow Rate Fraction of Inspired Oxygen 04/22/25 04:00 04/22/25 05:15 04/22/25 07:35 Temperature 98.1 F Pulse Rate 69 88 90 Respiratory Rate 20 18 Blood Pressure 130/55 L Pulse Oximetry 96 Oxygen Delivery Oxygen Flow Rate Fraction of Inspired Oxygen 04/22/25 07:37 04/22/25 07:44 04/22/25 09:13 Temperature Pulse Rate 91 91 Respiratory Rate 18 18 Blood Pressure Pulse Oximetry 95 95 Oxygen Delivery Nasal Cannula Nasal Cannula Oxygen Flow Rate 1 1 Fraction of Inspired Oxygen 04/22/25 09:13 Temperature Pulse Rate 74 Respiratory Rate Blood Pressure Pulse Oximetry Oxygen Delivery Oxygen Flow Rate Fraction of Inspired Oxygen Intake/Output Intake/Output: Intake & Output 04/19/25 04/20/25 04/21/25 04/22/25 23:59 23:59 23:59 23:59 Intake Total 2713.4 1050 1320 220 Output Total 4153 3477 350 1000 Balance -1439.6 -2427 970 -780 Meds/Results Medications: Active Medications Generic Name Dose Route Start Last Admin Trade Name Freq PRN Reason Stop Dose Admin Acetaminophen 650 mg 04/19/25 00:05 04/19/25 00:29 Acetaminophen 650 Mg Suppository RECTAL 650 mg Q6H PRN Administration Mild Pain (1-3) or Fever Acetaminophen 650 mg 04/19/25 08:34 04/22/25 09:13 Acetaminophen 325 Mg Tablet PO 650 mg Q6H PRN Administration Mild Pain (Scale Score 1-4) Albuterol 2.5 mg 04/20/25 11:28 Albuterol Sulfate Neb 2.5 Mg/3 Ml Inh INHALATION QIDRT PRN Shortness Of Breath Albuterol/Ipratropium 3 ml 04/19/25 08:34 04/21/25 06:00 Ipratropium 0.5 Mg/Albuterol Sulfate 2.5 Mg Ampul.Neb 3 Ml INHALATION 3 ml Q6HRT PRN Administration Shortness Of Breath Lipase/Protease/Amylase 4 cap 04/19/25 09:00 04/22/25 09:13 Lipase/Amylase/Protease 12,000 Units Cap PO 4 cap TID DOC Administration Apixaban 2.5 mg 04/19/25 09:00 04/22/25 09:13 Apixaban 2.5 Mg Tablet PO 2.5 mg Q12HR DOC Administration Artificial Tears 1 drop 04/20/25 17:00 04/22/25 09:16 Artificial Tears Ophth Soln 15 Ml Bottle EACH EYE 1 drop BID DOC Administration Ascorbic Acid 500 mg 04/20/25 17:00 04/22/25 09:13 Ascorbic Acid 500 Mg Tablet PO 500 mg BID DOC Administration Atorvastatin Calcium 40 mg 04/19/25 18:00 04/21/25 17:29 Atorvastatin 40 Mg Tablet PO 40 mg QPM DOC Administration Baclofen 10 mg 04/20/25 11:28 04/22/25 04:53 Baclofen 10 Mg Tablet PO 10 mg Q6H PRN Administration moderate pain Budesonide 0.5 mg 04/19/25 08:45 04/22/25 07:34 Budesonide Respule Neb 0.5 Mg/2 Ml Amp INHALATION 0.5 mg Q12HRT DOC Administration Bupropion HCl 75 mg 04/21/25 09:00 04/22/25 09:13 Bupropion Hcl 75 Mg Tablet PO 75 mg DAILY DOC Administration Calcium Carbonate 200 mg 04/21/25 17:00 04/22/25 09:13 Calcium Carbonate (Tums) 500 Mg (200 Mg Elemental) PO 200 mg BID DOC Administration Cyanocobalamin 500 mcg 04/21/25 09:00 04/22/25 09:13 Cyanocobalamin 500 Mcg Tablet PO 500 mcg DAILY DOC Administration Diclofenac Sodium 1 applic 04/20/25 13:00 04/22/25 09:15 Diclofenac Sodium 1% 100 Gm Gel (*Bkc) TOPICAL 1 applic QID DOC Administration Ferrous Sulfate 325 mg 04/21/25 09:00 04/22/25 09:13 Ferrous Sulfate [address] BY MOUTH 325 mg DAILY DOC Administration Fluticasone Propionate 1 spray 04/20/25 21:00 04/22/25 09:15 Fluticasone Propionate 0.05% Na Spr 16 Gm Btl (*Bkc) NASAL 1 spray Q12HR DOC Administration Folic Acid 1 mg 04/21/25 09:00 04/22/25 09:13 Folic Acid 1 Mg Tablet PO 1 mg DAILY DOC Administration Hydrocortisone 1 applic 04/19/25 08:34 04/20/25 08:53 Hydrocortisone 2.5% Cream 30 Gm Tube TOPICAL 1 applic QID PRN Administration Itching Levofloxacin 750 mg 04/21/25 14:00 04/21/25 13:07 Levofloxacin 750 Mg Tablet PO 750 mg DAILY@1400 DOC Administration Loperamide HCl 2 mg 04/19/25 18:03 04/22/25 09:13 Loperamide Hcl 2 Mg Capsule PO 2 mg PRN PRN Administration Diarrhea Loratadine 10 mg 04/21/25 09:00 04/22/25 09:13 Loratadine 10 Mg Tablet PO 10 mg QAM DOC Administration Naloxone HCl 0.4 mg 04/18/25 16:30 Naloxone Hcl 0.4 Mg/Ml Vial IV PUSH Q5MIN PRN Overdose Ondansetron HCl 4 mg 04/20/25 08:59 04/21/25 08:12 Ondansetron Inj 4 Mg/2 Ml Vial IV PUSH 4 mg Q6H PRN Administration Nausea And Vomiting Pregabalin 150 mg 04/20/25 17:00 04/22/25 09:13 Pregabalin (*Crx) 75 Mg Capsule PO 150 mg BID DOC Administration Prochlorperazine Edisylate 10 mg 04/21/25 10:14 04/21/25 20:11 Prochlorperazine Edisylate 10 Mg/2 Ml Vial IV PUSH 10 mg Q6H PRN Administration Nausea And Vomiting Sodium Chloride 20 ml 04/18/25 15:29 Central Line Flush IV PUSH PRN PRN after blood draws Sodium Chloride 20 ml 04/18/25 19:04 04/19/25 05:13 Central Line Flush IV PUSH 20 ml PRN PRN Administration after blood draws Umeclidinium/Vilanterol 1 puff 04/19/25 08:45 04/22/25 07:34 Umeclidinium/Vilanterol 62.5-25 Mcg Ellipta INHALATION 1 puff DAILYRT DOC Administration Vitamin D 25 mcg 04/21/25 09:00 04/22/25 09:13 Cholecalciferol (Vitamin D3) 25 Mcg (1,000 Units) Tablet PO 25 mcg DAILY DOC Administration Radiology Results: ITS Impressions Chest CT 04/18/25 14:28 IMPRESSION: 1. Fibrotic changes with possible superimposed pneumonia in the lingula. 2. Pneumonia in the left lower lobe. 3. Fibrotic changes in the right upper lobe with superimposed infection is not excluded. 4. Prominent pulmonary artery suggestive of pulmonary hypertension. 5. Narrowing of the main bronchi which may indicate bronchomalacia. 6. Right adrenal adenoma unchanged. Chest X-Ray 04/18/25 16:00 IMPRESSION: Cardiomegaly with cardiac decompensation. Pneumonia with underlying fibrotic changes in the right upper and both lower lobes. Follow-up advised. Head CT 04/18/25 18:15 IMPRESSION: No acute intracranial process. Labs Labs: Laboratory Results - last 24 hr 04/22/25 04:35 WBC 17.0 H RBC 2.89 L Hgb 8.9 L Hct 28.9 L MCV 100.0 MCH 30.8 MCHC 30.8 L RDW 13.7 Plt Count 310 MPV 11.2 H Sodium 135 L Potassium 3.8 Chloride 101 Carbon Dioxide 31 H Anion Gap 3 L BUN 12 D Creatinine 0.68 L Estim Creat Clear Calc 52 Estimated GFR > 60 Glucose 86 Calcium 8.5 Phosphorus 3.2 Magnesium 1.9 Total Bilirubin 0.3 AST 29 ALT 12 Alkaline Phosphatase 45 Total Protein 6.3 Albumin 3.3 L Quality VTE Prophylaxis VTE prophylaxis: mechanical ordered
[2025-04-22] MEDS: ATORVASTATIN 40 MG TABLET PO (17:22)
[2025-04-22] MEDS: HYDROCORTISONE 2.5% CREAM 30 GM TUBE 1 APPLIC TOPICAL (18:42)
[2025-04-22] MEDS: FLUCONAZOLE 150 MG TABLET PO (21:33)
[2025-04-23] VITALS (14 sets, daily range): BP systolic 104–115; BP diastolic 48–58; PULSE 79–108; RESP 16–18; TEMP 36.4–36.6; O2SAT 93–97
[2025-04-23 05:11] LABS: Hematocrit 27.3 % (37.0-47.0); Hemoglobin 8.3 g/dL (12.0-15.0); Immature Granulocyte Percent A 0.7 % (0-0.5); Lymphocytes Absolute Auto 2.16 K/mm3 (0.9-3.2); Mean Corpuscular HGB Conc 30.4 g/dl (32-36); Mean Corpuscular Hemoglobin 30.7 pg (26-34); Mean Corpuscular Volume 101.1 fl (80-100); Nucleated Red Blood Cells Absolute Auto 0.000 K/mm3 (0.0-0.012); Nucleated Red Blood Cells Perc 0.0 % (0.0-0.2); Platelet Count Result 298 k/mm3 (150-375); Red Blood Count 2.70 M/mm3 (4.2-5.4); White Blood Count 18.9 K/mm3 (4.5-10.0)
[2025-04-23 05:34] LABS: Alanine Aminotransferase 11 U/L (6-35); Albumin Level 3.2 g/dL (3.5-5.1); Alkaline Phosphatase 50 U/L (38-126); Anion Gap 4 mmol/L (4-12); Aspartate Amino Transferase 30 U/L (14-36); Bilirubin,Total 0.4 mg/dL (0.2-1.3); Blood Urea Nitrogen 10 mg/dL (7-17); Calcium 8.6 mg/dL (8.4-10.2); Carbon Dioxide 31 mmol/L (22-30); Chloride 98 mmol/L (98-107); Estimated CRCL calculation 51 ml/min; Estimated Glomerular Filt Rate > 60; Glucose 102 mg/dL (65-110); Magnesium 1.7 mg/dL (1.6-2.3); Potassium 4.2 mmol/L (3.4-5.0); Sodium 133 mmol/L (137-145); Total Protein 6.0 g/dL (6.3-8.2)
[2025-04-23] MEDS: UMECLIDINIUM/VILANTEROL 62.5-25 MCG ELLIPTA 1 PUFF INHALATION (09:47)
[2025-04-23] MEDS: BUDESONIDE RESPULE NEB 0.5 MG/2 ML AMP INHALATION ×2 (09:48→20:20)
[2025-04-23] MEDS: CYANOCOBALAMIN 500 MCG TABLET PO (10:02)
[2025-04-23] MEDS: LIPASE/AMYLASE/PROTEASE 12,000 UNITS CAP 4 CAP PO ×3 (10:02→17:44)
[2025-04-23] MEDS: CALCIUM CARBONATE (TUMS) 500 MG (200 MG ELEMENTAL) PO ×2 (10:02→17:44)
[2025-04-23] MEDS: LORATADINE 10 MG TABLET PO (10:02)
[2025-04-23] MEDS: PREGABALIN (*CRX) 75 MG CAPSULE 150 MG PO ×2 (10:02→17:44)
[2025-04-23] MEDS: ASCORBIC ACID 500 MG TABLET PO ×2 (10:02→17:44)
[2025-04-23] MEDS: FERROUS SULFATE 325 MG TABLET DR BY MOUTH (10:02)
[2025-04-23] MEDS: CHOLECALCIFEROL (VITAMIN D3) 25 MCG (1,000 UNITS) TABLET PO (10:02)
[2025-04-23] MEDS: FOLIC ACID 1 MG TABLET PO (10:03)
[2025-04-23] MEDS: FLUTICASONE PROPIONATE 0.05% NA SPR 16 GM BTL (*BKC) 1 SPRAY NASAL (10:04)
[2025-04-23] MEDS: ONDANSETRON INJ 4 MG/2 ML VIAL IV PUSH ×3 (10:04→21:33)
[2025-04-23] MEDS: DICLOFENAC SODIUM 1% 100 GM GEL (*BKC) 1 APPLIC TOPICAL ×3 (10:04→17:45)
[2025-04-23] MEDS: APIXABAN 2.5 MG TABLET PO ×2 (10:14→21:20)
[2025-04-23] MEDS: ARTIFICIAL TEARS OPHTH SOLN 15 ML BOTTLE 1 DROP EACH EYE ×2 (10:15→17:45)
[2025-04-23] MEDS: IPRATROPIUM 0.5 MG/ALBUTEROL SULFATE 2.5 MG AMPUL.NEB 3 ML INHALATION (12:28)
[2025-04-23 12:48] LABS: MRSA (PCR) DETECTED (NOT DETECTE)
--- NOTE | 2025-04-23 13:45 | P.PNIM_ITS ---
Progress Note: A&P Assessment and Plan (1) Septic shock: Code(s): A41.9 - Sepsis, unspecified organism; R65.21 - Severe sepsis with septic shock Status: Acute (2) Chronic anticoagulation: Code(s): Z79.01 - shelter (current) use of anticoagulants Status: Acute Assessment and Plan: Resume Eliquis (3) Diarrhea: Code(s): R19.7 - Diarrhea, unspecified Status: Acute Assessment and Plan: Patient reports diarrhea at intermediate. Denies any hematochezia melena or abdominal pain (4) Altered mental status: Qualifiers: Altered mental status type: disorientation Qualified Code(s): R41.0 - Disorientation, unspecified Code(s): R41.82 - Altered mental status, unspecified Status: Acute Assessment and Plan: Altered mental status likely secondary to multiple medications, opioid and sepsis. Head CT was negative (5) COPD (chronic obstructive pulmonary disease): Qualifiers: COPD type: unspecified COPD Qualified Code(s): J44.9 - Chronic obstructive pulmonary disease, unspecified Code(s): J44.9 - Chronic obstructive pulmonary disease, unspecified Status: Chronic Assessment and Plan: History of COPD not in exacerbation. Continue bronchodilators and budesonide (6) Chronic interstitial lung disease: Code(s): J84.9 - Interstitial pulmonary disease, unspecified Status: Acute Assessment and Plan: Continue supplemental oxygen (7) Acute on chronic respiratory failure with hypoxia and hypercapnia: Code(s): J96.21 - Acute and chronic respiratory failure with hypoxia; J96.22 - Acute and chronic respiratory failure with hypercapnia Status: Acute (8) PNA (pneumonia): Code(s): J18.9 - Pneumonia, unspecified organism Status: Acute Assessment and Plan: See above Plan Acute metabolic encephalopathy, resolved Secondary to narcotics overdose vs sepsis improving CT head neg hold off narcotics C/W Iv Abx follow culture results septic shock, resolved pneumonia Cdiff neg off of Levophed received IVF on Levaquin Diverticulitis with abscess this is the cause of the recent worsening leukocytosis CT AP reviewed Continue LEvaquin, Flagyl added Gen surgery consulted Diarrhea, resolved improving C diff neg Imodium continue to monitor COPD home inhalers Acute and chronic respiratory failure with hypoxia s/p BiPAP, now at baseline 2 liters oxygen improving secondary to pneumonia ABX repeat CXR showed stable findings Continue Levaquin MRSA colonization since patient's pneumonia responded to Levaquin will start patient on Mupirocin application to nares bid monitor frequent fall fall precautions PT/OT hypocalcemia Tums mild hyponatremia monitor Obesity lifestyle modification DVT prophylaxis -continue Eliquis Stress ulcer prophylaxis - Nutrition -diet ordered Code Status -patient is DNR DNI Subjective Date/time seen: 04/23/25 13:45 Interval history: Patient comfortable at bedside Patient complained of abd pain and CT scan showed diverticulitis with abscess Flagyl added adn Gen surgery consulted Review of Systems Review of Systems: All systems reviewed & are unremarkable except as noted in HPI and below (HPI) ROS unobtainable: Yes unobtainable due to medical condition and unobtainable due to mental status Exam Narrative: General: Pt is alert awake and in NAD Lungs/Chest: Trachea central Clear BS B/L, No crackles or wheezing. Cardiac: RRR. Normal S1 S2. No murmurs Circulation: Both feet are warm Abdomen: Normal bowel sounds. Obese. Soft. NT. ND. Extremities: No clubbing, cyanosis or edema. Warm : Andrews in place Neurologic:alert oriented x3. no focal sign Skin: No Rash Objective Data Vital Signs Vital Signs: Vital Signs - 24 hr 04/22/25 14:02 04/22/25 16:00 04/22/25 20:00 Temperature 98.2 F Pulse Rate 78 88 94 Respiratory Rate 14 Blood Pressure 102/47 L Pulse Oximetry 96 Oxygen Delivery Oxygen Flow Rate Fraction of Inspired Oxygen 04/22/25 20:00 04/22/25 20:38 04/22/25 20:59 Temperature 98.0 F Pulse Rate 96 Respiratory Rate 20 Blood Pressure 112/46 L Pulse Oximetry 96 90 94 Oxygen Delivery Nasal Cannula Nasal Cannula Oxygen Flow Rate 1 1 Fraction of Inspired Oxygen 24 04/22/25 20:59 04/22/25 21:05 04/22/25 22:56 Temperature 97.9 F Pulse Rate 84 88 82 Respiratory Rate 18 18 20 Blood Pressure 131/59 L Pulse Oximetry 96 Oxygen Delivery Oxygen Flow Rate Fraction of Inspired Oxygen 04/23/25 00:00 04/23/25 04:00 04/23/25 04:31 Temperature 97.6 F Pulse Rate 79 86 89 Respiratory Rate 16 Blood Pressure 104/49 L Pulse Oximetry 95 Oxygen Delivery Oxygen Flow Rate Fraction of Inspired Oxygen 04/23/25 09:48 04/23/25 09:48 04/23/25 09:57 Temperature Pulse Rate 81 88 Respiratory Rate 18 18 Blood Pressure Pulse Oximetry 94 Oxygen Delivery Nasal Cannula Oxygen Flow Rate 1 Fraction of Inspired Oxygen 04/23/25 12:28 04/23/25 12:38 Temperature Pulse Rate 92 95 Respiratory Rate 18 18 Blood Pressure Pulse Oximetry Oxygen Delivery Oxygen Flow Rate Fraction of Inspired Oxygen Intake/Output Intake/Output: Intake & Output 04/20/25 04/21/25 04/22/25 04/23/25 23:59 23:59 23:59 23:59 Intake Total 1050 1320 1850 420 Output Total 3477 350 1000 Balance -2427 970 850 420 Meds/Results Medications: Active Medications Generic Name Dose Route Start Last Admin Trade Name Freq PRN Reason Stop Dose Admin Acetaminophen 650 mg 04/19/25 00:05 04/19/25 00:29 Acetaminophen 650 Mg Suppository RECTAL 650 mg Q6H PRN Administration Mild Pain (1-3) or Fever Acetaminophen 650 mg 04/19/25 08:34 04/22/25 14:50 Acetaminophen 325 Mg Tablet PO 650 mg Q6H PRN Administration Mild Pain (Scale Score 1-4) Albuterol 2.5 mg 04/20/25 11:28 Albuterol Sulfate Neb 2.5 Mg/3 Ml Inh INHALATION QIDRT PRN Shortness Of Breath Albuterol/Ipratropium 3 ml 04/19/25 08:34 04/23/25 12:28 Ipratropium 0.5 Mg/Albuterol Sulfate 2.5 Mg Ampul.Neb 3 Ml INHALATION 3 ml Q6HRT PRN Administration Shortness Of Breath Lipase/Protease/Amylase 4 cap 04/19/25 09:00 04/23/25 13:21 Lipase/Amylase/Protease 12,000 Units Cap PO 4 cap TID DOC Administration Apixaban 2.5 mg 04/19/25 09:00 04/23/25 10:14 Apixaban 2.5 Mg Tablet PO 2.5 mg Q12HR DOC Administration Artificial Tears 1 drop 04/20/25 17:00 04/23/25 10:15 Artificial Tears Ophth Soln 15 Ml Bottle EACH EYE 1 drop BID DOC Administration Ascorbic Acid 500 mg 04/20/25 17:00 04/23/25 10:02 Ascorbic Acid 500 Mg Tablet PO 500 mg BID DOC Administration Atorvastatin Calcium 40 mg 04/19/25 18:00 04/22/25 17:22 Atorvastatin 40 Mg Tablet PO 40 mg QPM DOC Administration Baclofen 10 mg 04/20/25 11:28 04/22/25 17:52 Baclofen 10 Mg Tablet PO 10 mg Q6H PRN Administration moderate pain Budesonide 0.5 mg 04/19/25 08:45 04/23/25 09:48 Budesonide Respule Neb 0.5 Mg/2 Ml Amp INHALATION 0.5 mg Q12HRT DOC Administration Bupropion HCl 75 mg 04/21/25 09:00 04/23/25 10:02 Bupropion Hcl 75 Mg Tablet PO 75 mg DAILY DOC Administration Calcium Carbonate 200 mg 04/21/25 17:00 04/23/25 10:02 Calcium Carbonate (Tums) 500 Mg (200 Mg Elemental) PO 200 mg BID DOC Administration Cyanocobalamin 500 mcg 04/21/25 09:00 04/23/25 10:02 Cyanocobalamin 500 Mcg Tablet PO 500 mcg DAILY DOC Administration Diclofenac Sodium 1 applic 04/20/25 13:00 04/23/25 13:21 Diclofenac Sodium 1% 100 Gm Gel (*Bkc) TOPICAL 1 applic QID DOC Administration Ferrous Sulfate 325 mg 04/21/25 09:00 04/23/25 10:02 Ferrous Sulfate [address] BY MOUTH 325 mg DAILY DOC Administration Fluticasone Propionate 1 spray 04/20/25 21:00 04/23/25 10:04 Fluticasone Propionate 0.05% Na Spr 16 Gm Btl (*Bkc) NASAL 1 spray Q12HR DOC Administration Folic Acid 1 mg 04/21/25 09:00 04/23/25 10:03 Folic Acid 1 Mg Tablet PO 1 mg DAILY DOC Administration Hydrocortisone 1 applic 04/19/25 08:34 04/22/25 18:42 Hydrocortisone 2.5% Cream 30 Gm Tube TOPICAL 1 applic QID PRN Administration Itching Metronidazole 500 mg in 100 mls @ 100 mls/hr 04/23/25 13:45 Flagyl 500 Mg/Iso Soln 100 Ml IVPB Q8H DOC Levofloxacin 750 mg 04/21/25 14:00 04/23/25 13:21 Levofloxacin 750 Mg Tablet PO 750 mg DAILY@1400 DOC Administration Loperamide HCl 2 mg 04/19/25 18:03 04/22/25 21:31 Loperamide Hcl 2 Mg Capsule PO 2 mg PRN PRN Administration Diarrhea Loratadine 10 mg 04/21/25 09:00 04/23/25 10:02 Loratadine 10 Mg Tablet PO 10 mg QAM DOC Administration Naloxone HCl 0.4 mg 04/18/25 16:30 Naloxone Hcl 0.4 Mg/Ml Vial IV PUSH Q5MIN PRN Overdose Ondansetron HCl 4 mg 04/20/25 08:59 04/23/25 10:04 Ondansetron Inj 4 Mg/2 Ml Vial IV PUSH 4 mg Q6H PRN Administration Nausea And Vomiting Pregabalin 150 mg 04/20/25 17:00 04/23/25 10:02 Pregabalin (*Crx) 75 Mg Capsule PO 150 mg BID DOC Administration Prochlorperazine Edisylate 10 mg 04/21/25 10:14 04/21/25 20:11 Prochlorperazine Edisylate 10 Mg/2 Ml Vial IV PUSH 10 mg Q6H PRN Administration Nausea And Vomiting Sodium Chloride 20 ml 04/18/25 15:29 Central Line Flush IV PUSH PRN PRN after blood draws Sodium Chloride 20 ml 04/18/25 19:04 04/19/25 05:13 Central Line Flush IV PUSH 20 ml PRN PRN Administration after blood draws Umeclidinium/Vilanterol 1 puff 04/19/25 08:45 04/23/25 09:47 Umeclidinium/Vilanterol 62.5-25 Mcg Ellipta INHALATION 1 puff DAILYRT DOC Administration Vitamin D 25 mcg 04/21/25 09:00 04/23/25 10:02 Cholecalciferol (Vitamin D3) 25 Mcg (1,000 Units) Tablet PO 25 mcg DAILY DOC Administration Radiology Results: ITS Impressions Chest CT 04/18/25 14:28 IMPRESSION: 1. Fibrotic changes with possible superimposed pneumonia in the lingula. 2. Pneumonia in the left lower lobe. 3. Fibrotic changes in the right upper lobe with superimposed infection is not excluded. 4. Prominent pulmonary artery suggestive of pulmonary hypertension. 5. Narrowing of the main bronchi which may indicate bronchomalacia. 6. Right adrenal adenoma unchanged. Head CT 04/18/25 18:15 IMPRESSION: No acute intracranial process. Chest X-Ray 04/23/25 09:54 Impression: 1: Stable chest. Chronic interstitial lung disease with superimposed consolidation particularly in the right upper and left lower lobe. Cannot exclude superimposed atypical pneumonia. Abdomen/Pelvis CT 04/23/25 13:18 IMPRESSION: 1. Acute sigmoid diverticulitis with probable small peridiverticular abscess measuring 1.9 x 0.8 cm. 2: Patchy bibasilar airspace consolidation, consistent with pneumonia. Labs Labs: Laboratory Results - last 24 hr 04/23/25 04/23/25 04/23/25 04:47 10:29 10:54 WBC 18.9 H RBC 2.70 L Hgb 8.3 L Hct 27.3 L MCV 101.1 H MCH 30.7 MCHC 30.4 L RDW 14.0 Plt Count 298 MPV 11.3 H Immature Gran % (Auto) 0.7 H Neut % (Auto) 73.9 H Lymph % (Auto) 11.4 L [place] % (Auto) 11.3 H Eos % (Auto) 2.4 Baso % (Auto) 0.3 Lymph # (Auto) 2.16 [place] # (Auto) 2.1 H Eos # (Auto) 0.5 H Baso # (Auto) 0.1 Abs Immat Gran (auto) 0.14 H Absolute Neuts (auto) 13.9 H Absolute Nucleated RBC 0.000 Nucleated RBC % 0.0 Sodium 133 L Potassium 4.2 Chloride 98 Carbon Dioxide 31 H Anion Gap 4 BUN 10 Creatinine 0.70 Estim Creat Clear Calc 51 Estimated GFR > 60 Glucose 102 Lactic Acid 1.4 Calcium 8.6 Phosphorus 3.6 Magnesium 1.7 Total Bilirubin 0.4 AST 30 ALT 11 Alkaline Phosphatase 50 Total Protein 6.0 L Albumin 3.2 L Nasal MRSA (PCR) Detected A* Quality VTE Prophylaxis VTE prophylaxis: mechanical ordered
[2025-04-23] MEDS: MUPIROCIN 2% OINT 22 GM TUBE 1 APPLIC EACH NARE ×2 (15:27→21:21)
[2025-04-23] MEDS: metroNIDAZOLE 500 MG/ISO 100ML 500 MG/100 ML BAG 100 MG IVPB ×2 (15:27→21:23)
--- NOTE | 2025-04-23 15:34 | P.CONGS_ITS ---
Assessment and Plan Assessment and plan (1) Diverticular disease of intestine with perforation and abscess: Code(s): K57.80 - Diverticulitis of intestine, part unspecified, with perforation and abscess without bleeding Status: Acute Assessment and Plan: Patient states that she has been having lower abdominal pain exacerbated by eating for the past 4-5 days. However it was just brought to the hospitalist's attention today, prompting CT of the abdomen and pelvis. Imaging demonstrated acute sigmoid diverticulitis with probable small peridiverticular abscess measuring 1.9 x 0.8 cm. This abscess not of significant size, therefore likely not amenable to or necessary for drainage with IR. We will continue to treat this medically with antibiotics. Levaquin was switched to Zosyn. Patient's diet was reduced to clear liquids, as she states that pain is worsened by eating and a full diet is not appropriate as it may exacerbate inflammation or risk of perforation. Continue to trend WBC count. Will monitor with serial abdominal exams. No immediate surgical intervention necessary at this time. Of note, patient is on Eliquis, which would likely need to be stopped prior to a procedure. (2) Pneumonia: Qualifiers: Laterality: bilateral Lung location: lower lobe of lung Pneumonia type: due to unspecified organism Qualified Code(s): J18.9 - Pneumonia, unspecified organism Code(s): J18.9 - Pneumonia, unspecified organism Status: Acute Assessment and Plan: Continue antibiotic treatment. (3) Septic shock: Code(s): A41.9 - Sepsis, unspecified organism; R65.21 - Severe sepsis with septic shock Status: Acute Assessment and Plan: Resolved. Plan Discussed patient's case and plan of care with Dr. Hopkins. History of Present Illness Consult details Consult date: 04/23/25 Reason for consult: other (Diverticular abscess) Requesting physician: Felisha Verde MD Narrative: Patient is an 80-year-old female with history of chronic respiratory failure, COPD, CHF, and recurrent pneumonia we have been asked to see in surgical consultation for peridiverticular abscess. Of note, code status is no intubation, no CPR, okay for central line and vasopressors. Patient 1st presented to the ED on 04/18/2025 (5 days ago) with altered mental status and hypoxia. In the ED, the patient was only responsive to painful stimuli. Per patient's family, she has overdosed on opioids before at the [place] [facility] she resides that. Narcan was given and the patient awoke. However she still remains severely hypotensive. Central line was placed and she was put on pressors. Head CT ruled out any acute process. UA was negative for infection. X-ray demonstrated pneumonia and ABG showed hypoxia with hypercarbia. Patient was admitted to the ICU the following day for septic shock secondary to pneumonia and possible C diff colitis. Patient was weaned off Levophed. At this time it was reported that the patient was nontender on abdominal exam. C diff negative. On 04/20 patient was transferred back to medical floor for hospitalist care. Patient reported diarrhea at the [place] [facility]. Denied any hematochezia, melena, or abdominal pain. Status unchanged on 04/21 and 04/22. Today, patient complained of abdominal pain to hospitalist. CT scan was ordered and demonstrated a 1.9 x 0.8 cm small peridiverticular abscess. Patient has chronic leukocytosis, with WBC count now 18.9. Throughout this most recent hospital stay it has ranged from 17 to 22.4. Upon interview today, patient states that she has been having abdominal pain for the past 4-5 days exacerbated by eating. She states that she sometimes gets nausea with this but has not had an episode emesis. Patient admits to frequent episodes of diarrhea and has been having bowel movements daily. Patient states that most of the pain is to her lower abdomen. She has been on a full diet. Previous abdominal surgical history includes laparoscopic cholecystectomy and hysterectomy. Of note, nasal MRSA was positive today and mupirocin ointment was prescribed. FORMERLY [facility] Past Medical History Medical History Drug overdose Pulmonary embolism (06/2021) Pulmonary arterial hypertension Chronic interstitial lung disease Overactive bladder Peripheral vascular disease Cerebrovascular accident Anemia of chronic disease Clostridium difficile diarrhea Prediabetes Hyperlipidemia Hypertension History of peptic ulcer Gastroesophageal reflux disease Chronic respiratory failure with hypoxia and hypercapnia On 2 to 3 L nasal cannula. Chronic obstructive pulmonary disease Diastolic congestive heart failure Pneumonia due to 2019-nCoV (06/11/21) Exocrine pancreatic insufficiency Migraine Herniated disc Osteoporosis Anxiety Depression Arthritis GI bleed Pancreatitis Emphysema of lung Dementia Surgical History Surgical History History of neck surgery (2001) History of tonsillectomy History of bladder suspension procedure History of lumbar fusion x2 History of hysterectomy History of tubal ligation History of cholecystectomy History of cardiac cath History of vascular surgery Left lower extremity. Family History Family History Father Family history of Parkinson's disease Sibling Patient's brother is in good health Mother Family history of chronic obstructive pulmonary disease Family history of pancreatic cancer Social History Social History Social History: Surrogate decision maker: Stefanie Finney, granddaughter. Code status: Full code. Smoking packs per day: 1 Smoking cigarettes per day: 20.0 Years smoked: 30 Smoking pack-years: 30.00 Smoking status: Smoker, status unknown Second hand tobacco smoke exposure: Yes Alcohol intake: never Substance use: never Substance use type: does not use Do You Feel Safe in your Home?: Yes Lack of Transportation: No Lack of Food: Never True Current Housing: I Have Housing Concerned About Future Housing: No Difficulty Paying Gas/Electric Bills: No Difficulty Paying for Meds: No Currently Unemployed: No Education: High School Diploma/GED Difficulty w/ Childcare or Family Care: No Living arrangements: [place] [facility] Additional living arrangements comments: Resident of [facility]. Additional occupation/education comments: Retired. Spiritual care concerns: No Meds Home Medications and Allergies Home Medications ?Medication ?Instructions ?Recorded ?Confirmed ?Type pregabalin 150 mg capsule (Lyrica) 150 mg PO BID #60 caps 02/03/21 04/18/25 Rx folic acid 1 mg tablet 1 mg PO DAILY #90 tabs 03/30/21 04/18/25 Rx acetaminophen 650 mg 650 mg PO Q6H PRN Mild Pain (Scale 10/09/21 04/18/25 History tablet,extended release Score 1-4) carvedilol 3.125 mg tablet (Coreg) 3.125 mg PO BID 10/09/21 04/18/25 History magnesium hydroxide 400 mg/5 mL 400 mg PO Q72H PRN Constipation 10/09/21 04/18/25 History oral suspension (Milk of Magnesia) ondansetron 4 mg disintegrating 4 mg PO Q6H PRN nausea and 10/09/21 04/18/25 History tablet vomitting trazodone 300 mg tablet 50 mg PO HS 10/09/21 04/18/25 History apixaban 2.5 mg tablet (Eliquis) 2.5 mg PO BID 01/12/23 04/18/25 History bupropion HCl 75 mg tablet 75 mg PO DAILY 01/12/23 04/18/25 History furosemide 40 mg tablet 40 mg PO QAM 01/12/23 04/18/25 History guaifenesin 600 mg tablet, 600 mg PO BID 01/12/23 04/18/25 History extended release 12 hr sodium phosphates 19 gram-7 118 ml RECTAL ONCE PRN Constipation 01/12/23 04/18/25 History gram/118 mL enema (Fleet Enema) umeclidinium 62.5 mcg-vilanterol 1 inh inhalation DAILY 08/16/23 04/18/25 History 25 mcg/actuation powdr for inhalation (Anoro Ellipta) albuterol sulfate 2.5 mg/3 mL 2.5 mg inhalation QID PRN SOB 04/18/24 04/18/25 History (0.083 %) solution for nebulization azelastine 137 mcg (0.1 %) nasal 137 mcg intranasal BID 04/18/24 04/18/25 History spray omega 2-jsi-bks-fish oil 1,000 mg 1 cap PO DAILY 04/18/24 04/18/25 History (120 mg-180 mg) capsule (Fish Oil) artificial tears solution eye drops 1 drp ophthalmic (eye) BID dry eyes 04/21/24 04/18/25 History cholecalciferol (vitamin D3) 25 25 mcg PO DAILY 04/21/24 04/18/25 History mcg (1,000 unit) tablet emollient combination no.110 1 ea topical DAILY 04/21/24 04/18/25 History (Eucerin Intensive Repair lotion) hydrocortisone 2.5 % topical cream 1 applic topical QID PRN Itching 04/21/24 04/18/25 History ipratropium 0.5 mg-albuterol 3 mg 3 ml inhalation Q6H PRN SOB 04/21/24 04/18/25 History (2.5 mg base)/3 mL nebulization soln aqpvke-epqhfxmb-wkclloy 2 cap PO TID 04/21/24 04/18/25 History 24,000-76,000-120,000 unit capsule,delayed rel (Creon) loperamide 2 mg capsule 2 mg PO Q12H PRN Diarrhea 04/21/24 04/18/25 History ascorbic acid (vitamin C) 500 mg 500 mg PO BID 03/19/25 04/18/25 History tablet atorvastatin 40 mg tablet 40 mg PO QPM 03/19/25 04/18/25 History bisacodyl 10 mg rectal suppository 10 mg RECTAL DAILY PRN constipation 03/19/25 04/18/25 History cyanocobalamin (vitamin B-12) 500 500 mcg PO DAILY 03/19/25 04/18/25 History mcg tablet (B-12 DOTS) diclofenac sodium 1 % topical gel 4.5 inch topical QID 03/19/25 04/18/25 History (Arthritis Pain (diclofenac)) diclofenac sodium 50 mg 50 mg PO Q12H 03/19/25 04/18/25 History tablet,delayed release ferrous sulfate 325 mg (65 mg 325 mg PO DAILY 03/19/25 04/18/25 History iron) tablet fexofenadine 180 mg tablet 180 mg PO DAILY 03/19/25 04/18/25 History (Lea Allergy) hydrocodone 10 mg-acetaminophen 1 tablet PO QID 03/19/25 04/18/25 History 325 mg tablet magnesium citrate (Citroma oral 296 ml PO DAILY PRN constipation 03/19/25 04/18/25 History solution) methotrexate sodium 7.5 mg tablet 7.5 mg PO WEEKLY 03/19/25 04/18/25 History (Trexall) multivitamin (Daily Multi-Vitamin 1 tablet PO DAILY 03/19/25 04/18/25 History tablet) sennosides 8.6 mg capsule (senna) 8.6 mg PO BID 03/19/25 04/18/25 History triamcinolone acetonide 0.1 % 1 applic topical BID 03/19/25 04/18/25 History topical cream budesonide 0.5 mg/2 mL suspension 0.5 mg (2 mL) inhalation Q12HRT 04/01/25 04/18/25 Rx for nebulization (Pulmicort) #30 mL fluticasone propionate 50 1 spray intranasal Q12HR #30 grams 04/01/25 04/18/25 Rx mcg/actuation nasal spray,suspension polyethylene glycol 3350 17 gram 17 g PO QAM PRN Constipation #30 ea 04/01/25 04/18/25 Rx oral powder packet (Miralax) baclofen 10 mg tablet 10 mg PO Q6H PRN moderate pain 04/18/25 04/18/25 History bisacodyl 5 mg tablet,delayed 10 mg PO DAILY 04/18/25 04/18/25 History release moxifloxacin 400 mg tablet 400 mg PO DAILY 04/18/25 04/18/25 History Allergies Allergy/AdvReac Type Severity Reaction Status Date / Time ceftriaxone (From Rocephin) Allergy Intermediate Rash Verified 04/18/25 11:39 Sulfa (Sulfonamide Allergy Intermediate Rash Verified 04/18/25 11:39 Antibiotics) morphine AdvReac Mild Hallucinati Verified 04/18/25 11:39 ng Vital Signs Vital Signs - 24 hr 04/22/25 16:00 04/22/25 20:00 04/22/25 20:00 Temperature Pulse Rate 88 94 Respiratory Rate Blood Pressure Pulse Oximetry 96 Oxygen Delivery Nasal Cannula Oxygen Flow Rate 1 Fraction of Inspired Oxygen 24 04/22/25 20:38 04/22/25 20:59 04/22/25 20:59 Temperature 98.0 F Pulse Rate 96 84 Respiratory Rate 20 18 Blood Pressure 112/46 L Pulse Oximetry 90 94 Oxygen Delivery Nasal Cannula Oxygen Flow Rate 1 Fraction of Inspired Oxygen 04/22/25 21:05 04/22/25 22:56 04/23/25 00:00 Temperature 97.9 F Pulse Rate 88 82 79 Respiratory Rate 18 20 Blood Pressure 131/59 L Pulse Oximetry 96 Oxygen Delivery Oxygen Flow Rate Fraction of Inspired Oxygen 04/23/25 04:00 04/23/25 04:31 04/23/25 08:00 Temperature 97.6 F Pulse Rate 86 89 100 Respiratory Rate 16 16 Blood Pressure 104/49 L Pulse Oximetry 95 97 Oxygen Delivery Nasal Cannula Oxygen Flow Rate 0 Fraction of Inspired Oxygen 04/23/25 08:00 04/23/25 09:48 04/23/25 09:48 Temperature Pulse Rate 83 81 Respiratory Rate 18 Blood Pressure Pulse Oximetry 94 Oxygen Delivery Nasal Cannula Oxygen Flow Rate 1 Fraction of Inspired Oxygen 04/23/25 09:57 04/23/25 12:00 04/23/25 12:28 Temperature Pulse Rate 88 108 H 92 Respiratory Rate 18 18 Blood Pressure Pulse Oximetry Oxygen Delivery Oxygen Flow Rate Fraction of Inspired Oxygen 04/23/25 12:38 04/23/25 14:32 Temperature 97.8 F Pulse Rate 95 100 Respiratory Rate 18 16 Blood Pressure 115/48 L Pulse Oximetry 97 Oxygen Delivery Oxygen Flow Rate Fraction of Inspired Oxygen Exam 2 Const: General: comfortable and no acute distress Eyes: General: appearance normal, both eyes and all related structures Neck: Neck: supple Resp: Effort & Inspection: normal respiratory effort Cardio: Rate: regular rate GI: Inspection: non-distended GI Palp: Yes Soft to palpation, Yes Tenderness to palpation present (GI) and No Guarding due to palpation present (GI) Auscultation: normal bowel sounds Other: Tenderness diffusely across the lower abdomen Skin: General skin exam: normal color and no rashes or lesions noted Neuro: Speech: normal speech Sensory Exam: normal sensation Extrem: General: normal to inspection Psych: Mental Status: mental status grossly normal Results Labs 04/23/25 04:47 04/23/25 04:47 Labs: Abnormal lab results 04/23/25 04/23/25 Range/Units 04:47 10:54 WBC 18.9 H (4.5-10.0) K/mm3 RBC 2.70 L (4.2-5.4) M/mm3 Hgb 8.3 L (12.0-15.0) g/dL Hct 27.3 L (37.0-47.0) % MCV 101.1 H (80-100) fl MCHC 30.4 L (32-36) g/dl MPV 11.3 H (7.4-10.4) fl Immature Gran % (Auto) 0.7 H (0-0.5) % Neut % (Auto) 73.9 H (45.5-73.1) % Lymph % (Auto) 11.4 L (18.3-44.2) % [place] % (Auto) 11.3 H (2.6-8.5) % [place] # (Auto) 2.1 H (0.1-0.6) K/mm3 Eos # (Auto) 0.5 H (0-0.3) K/mm3 Abs Immat Gran (auto) 0.14 H (0.00-0.031) K/mm3 Absolute Neuts (auto) 13.9 H (1.3-6.7) K/mm3 Sodium 133 L (137-145) mmol/L Carbon Dioxide 31 H (22-30) mmol/L Total Protein 6.0 L (6.3-8.2) g/dL Albumin 3.2 L (3.5-5.1) g/dL Nasal MRSA (PCR) Detected A* (NOT DETECTE) Diabetes panel 04/23/25 Range/Units 04:47 Sodium 133 L (137-145) mmol/L Potassium 4.2 (3.4-5.0) mmol/L Chloride 98 (98-107) mmol/L Carbon Dioxide 31 H (22-30) mmol/L BUN 10 (7-17) mg/dL Creatinine 0.70 (0.7-1.0) mg/dL Glucose 102 (65-110) mg/dL Calcium 8.6 (8.4-10.2) mg/dL AST 30 (14-36) U/L ALT 11 (6-35) U/L Alkaline Phosphatase 50 (38-126) U/L Total Protein 6.0 L (6.3-8.2) g/dL Albumin 3.2 L (3.5-5.1) g/dL Calcium panel 04/23/25 Range/Units 04:47 Calcium 8.6 (8.4-10.2) mg/dL Phosphorus 3.6 (2.5-4.5) mg/dL Albumin 3.2 L (3.5-5.1) g/dL Pituitary panel 04/23/25 Range/Units 04:47 Sodium 133 L (137-145) mmol/L Potassium 4.2 (3.4-5.0) mmol/L Chloride 98 (98-107) mmol/L Carbon Dioxide 31 H (22-30) mmol/L BUN 10 (7-17) mg/dL Creatinine 0.70 (0.7-1.0) mg/dL Glucose 102 (65-110) mg/dL Calcium 8.6 (8.4-10.2) mg/dL Adrenal panel 04/23/25 Range/Units 04:47 Sodium 133 L (137-145) mmol/L Potassium 4.2 (3.4-5.0) mmol/L Chloride 98 (98-107) mmol/L Carbon Dioxide 31 H (22-30) mmol/L BUN 10 (7-17) mg/dL Creatinine 0.70 (0.7-1.0) mg/dL Glucose 102 (65-110) mg/dL Calcium 8.6 (8.4-10.2) mg/dL Total Bilirubin 0.4 (0.2-1.3) mg/dL AST 30 (14-36) U/L ALT 11 (6-35) U/L Alkaline Phosphatase 50 (38-126) U/L Total Protein 6.0 L (6.3-8.2) g/dL Albumin 3.2 L (3.5-5.1) g/dL All other labs normal.
[2025-04-23] MEDS: ATORVASTATIN 40 MG TABLET PO (17:44)
[2025-04-23] MEDS: PIPERACILLIN/TAZOBACTAM SOD 3.375 GM in SODIUM CHLORIDE 0.9% IV 50 ML 100 ML IVPB ×2 (17:45→21:25)
[2025-04-24] VITALS (7 sets, daily range): BP systolic 92–117; BP diastolic 50–57; PULSE 80–97; RESP 16–18; TEMP 36.4–37.2; O2SAT 91–96
[2025-04-24] MEDS: BACLOFEN 10 MG TABLET PO ×2 (02:24→09:30)
[2025-04-24] MEDS: PIPERACILLIN/TAZOBACTAM SOD 3.375 GM in SODIUM CHLORIDE 0.9% IV 50 ML 100 ML IVPB ×4 (04:38→21:57)
[2025-04-24] MEDS: metroNIDAZOLE 500 MG/ISO 100ML 500 MG/100 ML BAG 100 MG IVPB ×3 (05:01→21:57)
[2025-04-24 05:46] LABS: Hematocrit 25.5 % (37.0-47.0); Hemoglobin 7.7 g/dL (12.0-15.0); Immature Granulocyte Percent A 1.3 % (0-0.5); Lymphocytes Absolute Auto 2.38 K/mm3 (0.9-3.2); Mean Corpuscular HGB Conc 30.2 g/dl (32-36); Mean Corpuscular Hemoglobin 30.0 pg (26-34); Mean Corpuscular Volume 99.2 fl (80-100); Nucleated Red Blood Cells Absolute Auto 0.000 K/mm3 (0.0-0.012); Nucleated Red Blood Cells Perc 0.0 % (0.0-0.2); Platelet Count Result 277 k/mm3 (150-375); Red Blood Count 2.57 M/mm3 (4.2-5.4); White Blood Count 17.3 K/mm3 (4.5-10.0)
[2025-04-24 06:06] LABS: Alanine Aminotransferase 11 U/L (6-35); Albumin Level 2.9 g/dL (3.5-5.1); Alkaline Phosphatase 53 U/L (38-126); Anion Gap 7 mmol/L (4-12); Aspartate Amino Transferase 31 U/L (14-36); Bilirubin,Total 0.6 mg/dL (0.2-1.3); Blood Urea Nitrogen 9 mg/dL (7-17); Calcium 8.3 mg/dL (8.4-10.2); Carbon Dioxide 28 mmol/L (22-30); Chloride 97 mmol/L (98-107); Estimated CRCL calculation 46 ml/min; Estimated Glomerular Filt Rate > 60; Glucose 106 mg/dL (65-110); Magnesium 1.6 mg/dL (1.6-2.3); Potassium 4.3 mmol/L (3.4-5.0); Sodium 132 mmol/L (137-145); Total Protein 5.8 g/dL (6.3-8.2)
[2025-04-24 08:42] LABS: Iron 24 ug/dL (37-170)
[2025-04-24 08:51] LABS: Percent Iron Saturation 14 % (20-50)
[2025-04-24 09:23] LABS: Ferritin 291.00 ng/mL (11.1-264)
[2025-04-24] MEDS: APIXABAN 2.5 MG TABLET PO ×2 (09:30→21:57)
[2025-04-24] MEDS: CALCIUM CARBONATE (TUMS) 500 MG (200 MG ELEMENTAL) PO ×2 (09:30→17:19)
[2025-04-24] MEDS: FERROUS SULFATE 325 MG TABLET DR BY MOUTH (09:30)
[2025-04-24] MEDS: ASCORBIC ACID 500 MG TABLET PO ×2 (09:30→17:19)
[2025-04-24] MEDS: PREGABALIN (*CRX) 75 MG CAPSULE 150 MG PO ×2 (09:31→17:19)
[2025-04-24] MEDS: CYANOCOBALAMIN 500 MCG TABLET PO (09:31)
[2025-04-24] MEDS: LORATADINE 10 MG TABLET PO (09:31)
[2025-04-24] MEDS: LIPASE/AMYLASE/PROTEASE 12,000 UNITS CAP 4 CAP PO ×3 (09:31→17:20)
[2025-04-24] MEDS: CHOLECALCIFEROL (VITAMIN D3) 25 MCG (1,000 UNITS) TABLET PO (09:31)
[2025-04-24] MEDS: ARTIFICIAL TEARS OPHTH SOLN 15 ML BOTTLE 1 DROP EACH EYE ×2 (09:32→17:21)
[2025-04-24] MEDS: FOLIC ACID 1 MG TABLET PO (09:32)
[2025-04-24] MEDS: DICLOFENAC SODIUM 1% 100 GM GEL (*BKC) 1 APPLIC TOPICAL ×2 (09:33→21:58)
[2025-04-24] MEDS: MUPIROCIN 2% OINT 22 GM TUBE 1 APPLIC EACH NARE ×2 (09:33→21:58)
[2025-04-24] MEDS: FLUTICASONE PROPIONATE 0.05% NA SPR 16 GM BTL (*BKC) 1 SPRAY NASAL ×2 (09:35→21:58)
--- NOTE | 2025-04-24 11:30 | PM.PNGS ---
Progress Note: A&P Assessment and Plan (1) Diverticular disease of intestine with perforation and abscess: Code(s): K57.80 - Diverticulitis of intestine, part unspecified, with perforation and abscess without bleeding Status: Acute Assessment and Plan: Patient jet dyeing machine tender to lower abdomen. WBC at 17.3 today. Having regular bowel movements with diarrhea. Passing flatus. Bowel sounds present. No nausea or vomiting with clear liquids. Continue with IV antibiotics. Continue with clear liquids today. Will consider advancing diet tomorrow. We will continue to monitor with serial abdominal exams. No immediate surgical intervention necessary at this time. (2) Pneumonia: Qualifiers: Laterality: bilateral Lung location: lower lobe of lung Pneumonia type: due to unspecified organism Qualified Code(s): J18.9 - Pneumonia, unspecified organism Code(s): J18.9 - Pneumonia, unspecified organism Status: Acute Assessment and Plan: Continue IV antibiotic treatment. Would like to see WBC count trend downwards. (3) Septic shock: Code(s): A41.9 - Sepsis, unspecified organism; R65.21 - Severe sepsis with septic shock Status: Acute Assessment and Plan: Resolved. Plan Discussed patient's case and plan of care with Dr. Hopkins. Subjective Subjective Date/Time Seen: 04/24/25 11:30 Patient reports: no new complaints and still having pain Interval history: Patient is doing well today. Having regular bowel movements. Still complains of some diarrhea, but states that Imodium helps. No nausea or vomiting with clear liquids. Still complains of some lower abdominal pain. Exam GI: Inspection: non-distended Auscultation: normal bowel sounds Other: Tenderness diffusely across the lower abdomen Objective Data Vital Signs Vital Signs: Vital Signs - 24 hr 04/23/25 12:00 04/23/25 12:28 04/23/25 12:38 Temperature Pulse Rate 108 H 92 95 Respiratory Rate 18 18 Blood Pressure Pulse Oximetry Oxygen Delivery Oxygen Flow Rate Fraction of Inspired Oxygen 04/23/25 14:32 04/23/25 20:00 04/23/25 20:21 Temperature 97.8 F Pulse Rate 100 100 Respiratory Rate 16 16 16 Blood Pressure 115/48 L Pulse Oximetry 97 93 95 Oxygen Delivery Nasal Cannula Nasal Cannula Oxygen Flow Rate 1 1 Fraction of Inspired Oxygen 24 04/23/25 20:48 04/23/25 22:40 04/24/25 07:04 Temperature 97.6 F 97.6 F Pulse Rate 100 81 Respiratory Rate 16 16 16 Blood Pressure 115/58 L 92/50 L Pulse Oximetry 93 93 Oxygen Delivery Oxygen Flow Rate Fraction of Inspired Oxygen 04/24/25 09:30 Temperature Pulse Rate Respiratory Rate Blood Pressure Pulse Oximetry 93 Oxygen Delivery Nasal Cannula Oxygen Flow Rate 1 Fraction of Inspired Oxygen Intake/Output Intake/Output: Intake & Output 04/21/25 04/22/25 04/23/25 04/24/25 23:59 23:59 23:59 23:59 Intake Total 1320 1850 1380 400 Output Total 350 1000 Balance 861 295 2115 400 Meds/Results Medications: Active Medications Generic Name Dose Route Start Last Admin Trade Name Freq PRN Reason Stop Dose Admin Acetaminophen 650 mg 04/19/25 00:05 04/19/25 00:29 Acetaminophen 650 Mg Suppository RECTAL 650 mg Q6H PRN Administration Mild Pain (1-3) or Fever Acetaminophen 650 mg 04/19/25 08:34 04/22/25 14:50 Acetaminophen 325 Mg Tablet PO 650 mg Q6H PRN Administration Mild Pain (Scale Score 1-4) Albuterol 2.5 mg 04/20/25 11:28 Albuterol Sulfate Neb 2.5 Mg/3 Ml Inh INHALATION QIDRT PRN Shortness Of Breath Albuterol/Ipratropium 3 ml 04/19/25 08:34 04/23/25 12:28 Ipratropium 0.5 Mg/Albuterol Sulfate 2.5 Mg Ampul.Neb 3 Ml INHALATION 3 ml Q6HRT PRN Administration Shortness Of Breath Lipase/Protease/Amylase 4 cap 04/19/25 09:00 04/24/25 09:31 Lipase/Amylase/Protease 12,000 Units Cap PO 4 cap TID DOC Administration Apixaban 2.5 mg 04/19/25 09:00 04/24/25 09:30 Apixaban 2.5 Mg Tablet PO 2.5 mg Q12HR DOC Administration Artificial Tears 1 drop 04/20/25 17:00 04/24/25 09:32 Artificial Tears Ophth Soln 15 Ml Bottle EACH EYE 1 drop BID DOC Administration Ascorbic Acid 500 mg 04/20/25 17:00 04/24/25 09:30 Ascorbic Acid 500 Mg Tablet PO 500 mg BID DOC Administration Atorvastatin Calcium 40 mg 07/19/25 18:00 04/23/25 17:44 Atorvastatin 40 Mg Tablet PO 40 mg QPM DOC Administration Baclofen 10 mg 04/20/25 11:28 04/24/25 09:30 Baclofen 10 Mg Tablet PO 10 mg Q6H PRN Administration moderate pain Budesonide 0.5 mg 04/19/25 08:45 04/24/25 09:44 Budesonide Respule Neb 0.5 Mg/2 Ml Amp INHALATION Not Given Q12HRT [facility] Bupropion HCl 75 mg 04/21/25 09:00 04/24/25 09:31 Bupropion Hcl 75 Mg Tablet PO 75 mg DAILY DOC Administration Calcium Carbonate 200 mg 04/21/25 17:00 04/24/25 09:30 Calcium Carbonate (Tums) 500 Mg (200 Mg Elemental) PO 200 mg BID DOC Administration Cyanocobalamin 500 mcg 04/21/25 09:00 04/24/25 09:31 Cyanocobalamin 500 Mcg Tablet PO 500 mcg DAILY DOC Administration Diclofenac Sodium 1 applic 04/20/25 13:00 04/24/25 09:33 Diclofenac Sodium 1% 100 Gm Gel (*Bkc) TOPICAL 1 applic QID DOC Administration Ferrous Sulfate 325 mg 04/21/25 09:00 04/24/25 09:30 Ferrous Sulfate [address] BY MOUTH 325 mg DAILY DOC Administration Fluticasone Propionate 1 spray 04/20/25 21:00 04/24/25 09:35 Fluticasone Propionate 0.05% Na Spr 16 Gm Btl (*Bkc) NASAL 1 spray Q12HR DOC Administration Folic Acid 1 mg 04/21/25 09:00 04/24/25 09:32 Folic Acid 1 Mg Tablet PO 1 mg DAILY DOC Administration Hydrocortisone 1 applic 04/19/25 08:34 04/22/25 18:42 Hydrocortisone 2.5% Cream 30 Gm Tube TOPICAL 1 applic QID PRN Administration Itching Metronidazole 500 mg in 100 mls @ 100 mls/hr 04/23/25 14:00 04/24/25 05:01 Flagyl 500 Mg/Iso Soln 100 Ml IVPB 100 mls/hr Q8HR DOC Administration Piperacillin Sod/Tazobactam 50 mls @ 100 mls/hr 04/23/25 16:00 04/24/25 11:05 Sod 3.375 gm/ Sodium Chloride IVPB Infused Q6H DOC Infusion Loperamide HCl 2 mg 04/19/25 18:03 04/22/25 21:31 Loperamide Hcl 2 Mg Capsule PO 2 mg PRN PRN Administration Diarrhea Loratadine 10 mg 04/21/25 09:00 04/24/25 09:31 Loratadine 10 Mg Tablet PO 10 mg QAM DOC Administration Mupirocin 1 applic 04/23/25 14:00 04/24/25 09:33 Mupirocin 2% Oint 22 Gm Tube EACH NARE 04/27/25 21:01 1 applic Q12HR DOC Administration Naloxone HCl 0.4 mg 04/18/25 16:30 Naloxone Hcl 0.4 Mg/Ml Vial IV PUSH Q5MIN PRN Overdose Ondansetron HCl 4 mg 04/20/25 08:59 04/23/25 21:33 Ondansetron Inj 4 Mg/2 Ml Vial IV PUSH 4 mg Q6H PRN Administration Nausea And Vomiting Pregabalin 150 mg 04/20/25 17:00 04/24/25 09:31 Pregabalin (*Crx) 75 Mg Capsule PO 150 mg BID DOC Administration Prochlorperazine Edisylate 10 mg 04/21/25 10:14 04/21/25 20:11 Prochlorperazine Edisylate 10 Mg/2 Ml Vial IV PUSH 10 mg Q6H PRN Administration Nausea And Vomiting Sodium Chloride 20 ml 04/18/25 15:29 Central Line Flush IV PUSH PRN PRN after blood draws Sodium Chloride 20 ml 04/18/25 19:04 04/19/25 05:13 Central Line Flush IV PUSH 20 ml PRN PRN Administration after blood draws Umeclidinium/Vilanterol 1 puff 04/19/25 08:45 04/24/25 09:44 Umeclidinium/Vilanterol 62.5-25 Mcg Ellipta INHALATION Not Given DAILYRT [facility] Vitamin D 25 mcg 04/21/25 09:00 04/24/25 09:31 Cholecalciferol (Vitamin D3) 25 Mcg (1,000 Units) Tablet PO 25 mcg DAILY DOC Administration Radiology Results: ITS Impressions Chest CT 04/18/25 14:28 IMPRESSION: 1. Fibrotic changes with possible superimposed pneumonia in the lingula. 2. Pneumonia in the left lower lobe. 3. Fibrotic changes in the right upper lobe with superimposed infection is not excluded. 4. Prominent pulmonary artery suggestive of pulmonary hypertension. 5. Narrowing of the main bronchi which may indicate bronchomalacia. 6. Right adrenal adenoma unchanged. Head CT 04/18/25 18:15 IMPRESSION: No acute intracranial process. Chest X-Ray 04/23/25 09:54 Impression: 1: Stable chest. Chronic interstitial lung disease with superimposed consolidation particularly in the right upper and left lower lobe. Cannot exclude superimposed atypical pneumonia. Abdomen/Pelvis CT 04/23/25 13:18 IMPRESSION: 1. Acute sigmoid diverticulitis with probable small peridiverticular abscess measuring 1.9 x 0.8 cm. 2: Patchy bibasilar airspace consolidation, consistent with pneumonia. Labs Labs: Laboratory Results - last 24 hr 04/23/25 04/24/25 10:54 05:15 WBC 17.3 H RBC 2.57 L Hgb 7.7 L Hct 25.5 L MCV 99.2 MCH 30.0 MCHC 30.2 L RDW 14.2 Plt Count 277 MPV 11.4 H Immature Gran % (Auto) 1.3 H Neut % (Auto) 71.0 Lymph % (Auto) 13.7 L [place] % (Auto) 11.4 H Eos % (Auto) 2.3 Baso % (Auto) 0.3 Lymph # (Auto) 2.38 [place] # (Auto) 2.0 H Eos # (Auto) 0.4 H Baso # (Auto) 0.1 Abs Immat Gran (auto) 0.22 H Absolute Neuts (auto) 12.3 H Absolute Nucleated RBC 0.000 Nucleated RBC % 0.0 Sodium 132 L Potassium 4.3 Chloride 97 L Carbon Dioxide 28 Anion Gap 7 BUN 9 Creatinine 0.78 Estim Creat Clear Calc 46 Estimated GFR > 60 Glucose 106 Calcium 8.3 L Magnesium 1.6 Iron 24 L TIBC 168 L % Saturation 14 L Ferritin 291.00 H Total Bilirubin 0.6 AST 31 ALT 11 Alkaline Phosphatase 53 Total Protein 5.8 L Albumin 2.9 L Nasal MRSA (PCR) Detected A*
--- NOTE | 2025-04-24 12:11 | P.PNIM_ITS ---
Progress Note: A&P Assessment and Plan (1) Septic shock: Code(s): A41.9 - Sepsis, unspecified organism; R65.21 - Severe sepsis with septic shock Status: Acute (2) Chronic anticoagulation: Code(s): Z79.01 - [facility]FP (current) use of anticoagulants Status: Acute Assessment and Plan: Resume Eliquis (3) Diarrhea: Code(s): R19.7 - Diarrhea, unspecified Status: Acute Assessment and Plan: Patient reports diarrhea at residential. Denies any hematochezia melena or abdominal pain (4) Altered mental status: Qualifiers: Altered mental status type: disorientation Qualified Code(s): R41.0 - Disorientation, unspecified Code(s): R41.82 - Altered mental status, unspecified Status: Acute Assessment and Plan: Altered mental status likely secondary to multiple medications, opioid and sepsis. Head CT was negative (5) COPD (chronic obstructive pulmonary disease): Qualifiers: COPD type: unspecified COPD Qualified Code(s): J44.9 - Chronic obstructive pulmonary disease, unspecified Code(s): J44.9 - Chronic obstructive pulmonary disease, unspecified Status: Chronic Assessment and Plan: History of COPD not in exacerbation. Continue bronchodilators and budesonide (6) Chronic interstitial lung disease: Code(s): J84.9 - Interstitial pulmonary disease, unspecified Status: Acute Assessment and Plan: Continue supplemental oxygen (7) Acute on chronic respiratory failure with hypoxia and hypercapnia: Code(s): J96.21 - Acute and chronic respiratory failure with hypoxia; J96.22 - Acute and chronic respiratory failure with hypercapnia Status: Acute (8) PNA (pneumonia): Code(s): J18.9 - Pneumonia, unspecified organism Status: Acute Assessment and Plan: See above Plan Acute metabolic encephalopathy, resolved Secondary to narcotics overdose vs sepsis improving CT head neg hold off narcotics C/W Iv Abx follow culture results septic shock, resolved pneumonia Cdiff neg off of Levophed received IVF on Levaquin Diverticulitis with abscess this is the cause of the recent worsening leukocytosis CT AP reviewed Continue Zosyn and Flagyl Gen surgery following Diarrhea, resolved improving C diff neg Imodium continue to monitor COPD home inhalers Acute and chronic respiratory failure with hypoxia s/p BiPAP, now at baseline 2 liters oxygen improving secondary to pneumonia ABX repeat CXR showed stable findings Continue Levaquin MRSA colonization since patient's pneumonia responded to Levaquin will start patient on Mupirocin application to nares bid monitor frequent fall fall precautions PT/OT hypocalcemia Tums mild hyponatremia monitor Obesity lifestyle modification DVT prophylaxis -continue Eliquis Stress ulcer prophylaxis - Nutrition -diet ordered Code Status -patient is DNR DNI Subjective Date/time seen: 04/24/25 12:11 Interval history: Comfortable at bedside noted marked improved in abd pain if symptoms continues to improve will discharge tomorrow Review of Systems Review of Systems: All systems reviewed & are unremarkable except as noted in HPI and below (HPI) ROS unobtainable: Yes unobtainable due to medical condition and unobtainable due to mental status Exam Narrative: General: Pt is alert awake and in NAD Lungs/Chest: Trachea central Clear BS B/L, No crackles or wheezing. Cardiac: RRR. Normal S1 S2. No murmurs Circulation: Both feet are warm Abdomen: Normal bowel sounds. Obese. Soft. NT. ND. Extremities: No clubbing, cyanosis or edema. Warm : Andrews in place Neurologic:alert oriented x3. no focal sign Skin: No Rash Objective Data Vital Signs Vital Signs: Vital Signs - 24 hr 04/23/25 12:28 04/23/25 12:38 04/23/25 14:32 Temperature 97.8 F Pulse Rate 92 95 100 Respiratory Rate 18 18 16 Blood Pressure 115/48 L Pulse Oximetry 97 Oxygen Delivery Oxygen Flow Rate Fraction of Inspired Oxygen 04/23/25 20:00 04/23/25 20:21 04/23/25 20:48 Temperature Pulse Rate 100 Respiratory Rate 16 16 16 Blood Pressure Pulse Oximetry 93 95 Oxygen Delivery Nasal Cannula Nasal Cannula Oxygen Flow Rate 1 1 Fraction of Inspired Oxygen 24 04/23/25 22:40 04/24/25 07:04 04/24/25 09:30 Temperature 97.6 F 97.6 F Pulse Rate 100 81 Respiratory Rate 16 16 Blood Pressure 115/58 L 92/50 L Pulse Oximetry 93 93 93 Oxygen Delivery Nasal Cannula Oxygen Flow Rate 1 Fraction of Inspired Oxygen Intake/Output Intake/Output: Intake & Output 04/21/25 04/22/25 04/23/25 04/24/25 23:59 23:59 23:59 23:59 Intake Total 1320 1850 1380 640 Output Total 350 1000 Balance 369 522 9721 640 Meds/Results Medications: Active Medications Generic Name Dose Route Start Last Admin Trade Name Freq PRN Reason Stop Dose Admin Acetaminophen 650 mg 04/19/25 00:05 04/19/25 00:29 Acetaminophen 650 Mg Suppository RECTAL 650 mg Q6H PRN Administration Mild Pain (1-3) or Fever Acetaminophen 650 mg 04/19/25 08:34 04/22/25 14:50 Acetaminophen 325 Mg Tablet PO 650 mg Q6H PRN Administration Mild Pain (Scale Score 1-4) Albuterol 2.5 mg 04/20/25 11:28 Albuterol Sulfate Neb 2.5 Mg/3 Ml Inh INHALATION QIDRT PRN Shortness Of Breath Albuterol/Ipratropium 3 ml 04/19/25 08:34 04/23/25 12:28 Ipratropium 0.5 Mg/Albuterol Sulfate 2.5 Mg Ampul.Neb 3 Ml INHALATION 3 ml Q6HRT PRN Administration Shortness Of Breath Lipase/Protease/Amylase 4 cap 04/19/25 09:00 04/24/25 09:31 Lipase/Amylase/Protease 12,000 Units Cap PO 4 cap TID DOC Administration Apixaban 2.5 mg 04/19/25 09:00 04/24/25 09:30 Apixaban 2.5 Mg Tablet PO 2.5 mg Q12HR DOC Administration Artificial Tears 1 drop 04/20/25 17:00 04/24/25 09:32 Artificial Tears Ophth Soln 15 Ml Bottle EACH EYE 1 drop BID DOC Administration Ascorbic Acid 500 mg 04/20/25 17:00 04/24/25 09:30 Ascorbic Acid 500 Mg Tablet PO 500 mg BID DOC Administration Atorvastatin Calcium 40 mg 04/19/25 18:00 04/23/25 17:44 Atorvastatin 40 Mg Tablet PO 40 mg QPM DOC Administration Baclofen 10 mg 04/20/25 11:28 04/24/25 09:30 Baclofen 10 Mg Tablet PO 10 mg Q6H PRN Administration moderate pain Budesonide 0.5 mg 04/19/25 08:45 04/24/25 09:44 Budesonide Respule Neb 0.5 Mg/2 Ml Amp INHALATION Not Given Q12HRT DOC Bupropion HCl 75 mg 04/21/25 09:00 04/24/25 09:31 Bupropion Hcl 75 Mg Tablet PO 75 mg DAILY DOC Administration Calcium Carbonate 200 mg 04/21/25 17:00 04/24/25 09:30 Calcium Carbonate (Tums) 500 Mg (200 Mg Elemental) PO 200 mg BID DOC Administration Cyanocobalamin 500 mcg 04/21/25 09:00 04/24/25 09:31 Cyanocobalamin 500 Mcg Tablet PO 500 mcg DAILY DOC Administration Diclofenac Sodium 1 applic 04/20/25 13:00 04/24/25 09:33 Diclofenac Sodium 1% 100 Gm Gel (*Bkc) TOPICAL 1 applic QID DOC Administration Ferrous Sulfate 325 mg 04/21/25 09:00 04/24/25 09:30 Ferrous Sulfate [address] BY MOUTH 325 mg DAILY DOC Administration Fluticasone Propionate 1 spray 04/20/25 21:00 04/24/25 09:35 Fluticasone Propionate 0.05% Na Spr 16 Gm Btl (*Bkc) NASAL 1 spray Q12HR DOC Administration Folic Acid 1 mg 04/21/25 09:00 04/24/25 09:32 Folic Acid 1 Mg Tablet PO 1 mg DAILY DOC Administration Hydrocortisone 1 applic 04/19/25 08:34 04/22/25 18:42 Hydrocortisone 2.5% Cream 30 Gm Tube TOPICAL 1 applic QID PRN Administration Itching Metronidazole 500 mg in 100 mls @ 100 mls/hr 04/23/25 14:00 04/24/25 05:01 Flagyl 500 Mg/Iso Soln 100 Ml IVPB 100 mls/hr Q8HR DOC Administration Piperacillin Sod/Tazobactam 50 mls @ 100 mls/hr 04/23/25 16:00 04/24/25 11:05 Sod 3.375 gm/ Sodium Chloride IVPB Infused Q6H DOC Infusion Loperamide HCl 2 mg 04/19/25 18:03 04/22/25 21:31 Loperamide Hcl 2 Mg Capsule PO 2 mg PRN PRN Administration Diarrhea Loratadine 10 mg 04/21/25 09:00 04/24/25 09:31 Loratadine 10 Mg Tablet PO 10 mg QAM DOC Administration Mupirocin 1 applic 04/23/25 14:00 04/24/25 09:33 Mupirocin 2% Oint 22 Gm Tube EACH NARE 04/27/25 21:01 1 applic Q12HR DOC Administration Naloxone HCl 0.4 mg 04/18/25 16:30 Naloxone Hcl 0.4 Mg/Ml Vial IV PUSH Q5MIN PRN Overdose Ondansetron HCl 4 mg 04/20/25 08:59 04/23/25 21:33 Ondansetron Inj 4 Mg/2 Ml Vial IV PUSH 4 mg Q6H PRN Administration Nausea And Vomiting Pregabalin 150 mg 04/20/25 17:00 04/24/25 09:31 Pregabalin (*Crx) 75 Mg Capsule PO 150 mg BID DOC Administration Prochlorperazine Edisylate 10 mg 04/21/25 10:14 04/21/25 20:11 Prochlorperazine Edisylate 10 Mg/2 Ml Vial IV PUSH 10 mg Q6H PRN Administration Nausea And Vomiting Sodium Chloride 20 ml 04/18/25 15:29 Central Line Flush IV PUSH PRN PRN after blood draws Sodium Chloride 20 ml 04/18/25 19:04 04/19/25 05:13 Central Line Flush IV PUSH 20 ml PRN PRN Administration after blood draws Umeclidinium/Vilanterol 1 puff 04/19/25 08:45 04/24/25 09:44 Umeclidinium/Vilanterol 62.5-25 Mcg Ellipta INHALATION Not Given DAILYRT REPLACED BY [facility] Vitamin D 25 mcg 04/21/25 09:00 04/24/25 09:31 Cholecalciferol (Vitamin D3) 25 Mcg (1,000 Units) Tablet PO 25 mcg DAILY DOC Administration Radiology Results: ITS Impressions Chest CT 04/18/25 14:28 IMPRESSION: 1. Fibrotic changes with possible superimposed pneumonia in the lingula. 2. Pneumonia in the left lower lobe. 3. Fibrotic changes in the right upper lobe with superimposed infection is not excluded. 4. Prominent pulmonary artery suggestive of pulmonary hypertension. 5. Narrowing of the main bronchi which may indicate bronchomalacia. 6. Right adrenal adenoma unchanged. Head CT 04/18/25 18:15 IMPRESSION: No acute intracranial process. Chest X-Ray 04/23/25 09:54 Impression: 1: Stable chest. Chronic interstitial lung disease with superimposed consolidation particularly in the right upper and left lower lobe. Cannot exclude superimposed atypical pneumonia. Abdomen/Pelvis CT 04/23/25 13:18 IMPRESSION: 1. Acute sigmoid diverticulitis with probable small peridiverticular abscess measuring 1.9 x 0.8 cm. 2: Patchy bibasilar airspace consolidation, consistent with pneumonia. Labs Labs: Laboratory Results - last 24 hr 04/23/25 04/24/25 10:54 05:15 WBC 17.3 H RBC 2.57 L Hgb 7.7 L Hct 25.5 L MCV 99.2 MCH 30.0 MCHC 30.2 L RDW 14.2 Plt Count 277 MPV 11.4 H Immature Gran % (Auto) 1.3 H Neut % (Auto) 71.0 Lymph % (Auto) 13.7 L [place] % (Auto) 11.4 H Eos % (Auto) 2.3 Baso % (Auto) 0.3 Lymph # (Auto) 2.38 [place] # (Auto) 2.0 H Eos # (Auto) 0.4 H Baso # (Auto) 0.1 Abs Immat Gran (auto) 0.22 H Absolute Neuts (auto) 12.3 H Absolute Nucleated RBC 0.000 Nucleated RBC % 0.0 Sodium 132 L Potassium 4.3 Chloride 97 L Carbon Dioxide 28 Anion Gap 7 BUN 9 Creatinine 0.78 Estim Creat Clear Calc 46 Estimated GFR > 60 Glucose 106 Calcium 8.3 L Magnesium 1.6 Iron 24 L TIBC 168 L % Saturation 14 L Ferritin 291.00 H Total Bilirubin 0.6 AST 31 ALT 11 Alkaline Phosphatase 53 Total Protein 5.8 L Albumin 2.9 L Nasal MRSA (PCR) Detected A* Quality VTE Prophylaxis VTE prophylaxis: mechanical ordered
[2025-04-24] MEDS: ACETAMINOPHEN 325 MG TABLET 650 MG PO ×2 (13:29→21:57)
[2025-04-24] MEDS: ATORVASTATIN 40 MG TABLET PO (17:19)
[2025-04-24] MEDS: BUDESONIDE RESPULE NEB 0.5 MG/2 ML AMP INHALATION (19:54)
[2025-04-25] VITALS (9 sets, daily range): BP systolic 98–116; BP diastolic 43–55; PULSE 73–92; RESP 16–24; TEMP 36.1–36.8; O2SAT 91–94
[2025-04-25] MEDS: PIPERACILLIN/TAZOBACTAM SOD 3.375 GM in SODIUM CHLORIDE 0.9% IV 50 ML 100 ML IVPB ×4 (04:38→21:13)
[2025-04-25] MEDS: metroNIDAZOLE 500 MG/ISO 100ML 500 MG/100 ML BAG 100 MG IVPB ×3 (05:19→21:09)
[2025-04-25] MEDS: CALCIUM CARBONATE (TUMS) 500 MG (200 MG ELEMENTAL) PO ×2 (07:58→17:51)
[2025-04-25] MEDS: CHOLECALCIFEROL (VITAMIN D3) 25 MCG (1,000 UNITS) TABLET PO (07:58)
[2025-04-25] MEDS: LIPASE/AMYLASE/PROTEASE 12,000 UNITS CAP 4 CAP PO ×3 (07:58→17:52)
[2025-04-25] MEDS: PREGABALIN (*CRX) 75 MG CAPSULE 150 MG PO ×2 (07:58→17:52)
[2025-04-25] MEDS: LORATADINE 10 MG TABLET PO (07:59)
[2025-04-25] MEDS: BACLOFEN 10 MG TABLET PO ×2 (07:59→21:13)
[2025-04-25] MEDS: ASCORBIC ACID 500 MG TABLET PO ×2 (07:59→17:52)
[2025-04-25] MEDS: CYANOCOBALAMIN 500 MCG TABLET PO (07:59)
[2025-04-25] MEDS: FOLIC ACID 1 MG TABLET PO (07:59)
[2025-04-25] MEDS: APIXABAN 2.5 MG TABLET PO ×2 (07:59→20:46)
[2025-04-25] MEDS: FERROUS SULFATE 325 MG TABLET DR BY MOUTH (07:59)
[2025-04-25] MEDS: MUPIROCIN 2% OINT 22 GM TUBE 1 APPLIC EACH NARE ×2 (08:00→20:48)
[2025-04-25] MEDS: ARTIFICIAL TEARS OPHTH SOLN 15 ML BOTTLE 1 DROP EACH EYE ×2 (08:00→17:58)
[2025-04-25] MEDS: DICLOFENAC SODIUM 1% 100 GM GEL (*BKC) 1 APPLIC TOPICAL ×2 (08:00→20:48)
[2025-04-25] MEDS: BUDESONIDE RESPULE NEB 0.5 MG/2 ML AMP INHALATION ×2 (08:05→21:15)
[2025-04-25] MEDS: UMECLIDINIUM/VILANTEROL 62.5-25 MCG ELLIPTA 1 PUFF INHALATION (08:05)
[2025-04-25] MEDS: IPRATROPIUM 0.5 MG/ALBUTEROL SULFATE 2.5 MG AMPUL.NEB 3 ML INHALATION (08:05)
[2025-04-25 08:17] LABS: Hematocrit 27.2 % (37.0-47.0); Hemoglobin 8.4 g/dL (12.0-15.0); Immature Granulocyte Percent A 0.9 % (0-0.5); Lymphocytes Absolute Auto 1.58 K/mm3 (0.9-3.2); Mean Corpuscular HGB Conc 30.9 g/dl (32-36); Mean Corpuscular Hemoglobin 29.9 pg (26-34); Mean Corpuscular Volume 96.8 fl (80-100); Nucleated Red Blood Cells Absolute Auto 0.000 K/mm3 (0.0-0.012); Nucleated Red Blood Cells Perc 0.0 % (0.0-0.2); Platelet Count Result 343 k/mm3 (150-375); Red Blood Count 2.81 M/mm3 (4.2-5.4); White Blood Count 12.2 K/mm3 (4.5-10.0)
[2025-04-25 09:12] LABS: Anion Gap 4 mmol/L (4-12); Blood Urea Nitrogen 6 mg/dL (7-17); Calcium 8.8 mg/dL (8.4-10.2); Carbon Dioxide 32 mmol/L (22-30); Chloride 98 mmol/L (98-107); Estimated CRCL calculation 52 ml/min; Estimated Glomerular Filt Rate > 60; Glucose 107 mg/dL (65-110); Potassium 4.2 mmol/L (3.4-5.0); Sodium 134 mmol/L (137-145)
--- NOTE | 2025-04-25 09:53 | PM.PNGS ---
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 WBC at 12.2, down from 17.3. Having regular bowel movements with diarrhea. Passing flatus. Bowel sounds present. No nausea or vomiting with clear liquids. Continue with IV antibiotics. Advance to full liquids today. We will continue to monitor with serial abdominal exams. No immediate surgical intervention necessary at this time. (2) Pneumonia: Qualifiers: Laterality: bilateral Lung location: lower lobe of lung Pneumonia type: due to unspecified organism Qualified Code(s): J18.9 - Pneumonia, unspecified organism Code(s): J18.9 - Pneumonia, unspecified organism Status: Acute Assessment and Plan: Continue IV antibiotic treatment. WBC count trending down. (3) Septic shock: Code(s): A41.9 - Sepsis, unspecified organism; R65.21 - Severe sepsis with septic shock Status: Acute Assessment and Plan: Resolved. Plan Discussed patient's case and plan of care with Dr. Hopkins. Subjective Subjective Date/Time Seen: 04/25/25 09:53 Patient reports: no new complaints, tolerating liquids well and bowel movement Interval history: Patient is doing well today. Vital signs stable. WBC down to 12.2 from 17.3 yesterday. Patient notes less pain to abdomen. Exam GI: Inspection: non-distended Auscultation: normal bowel sounds Other: Tenderness to palpation diffusely across the lower abdomen, now more localized to left lower quadrant Objective Data Vital Signs Vital Signs: Vital Signs - 24 hr 04/24/25 15:28 04/24/25 19:55 04/24/25 19:55 Temperature 99.0 F Pulse Rate 90 95 95 Respiratory Rate 18 16 16 Blood Pressure 117/57 L Pulse Oximetry 96 91 Oxygen Delivery Nasal Cannula Oxygen Flow Rate 1 04/24/25 20:02 04/24/25 20:40 04/24/25 21:05 Temperature 98.0 F Pulse Rate 97 80 Respiratory Rate 16 16 Blood Pressure 100/53 L Pulse Oximetry 92 92 Oxygen Delivery Nasal Cannula Oxygen Flow Rate 1 04/25/25 07:09 04/25/25 08:06 04/25/25 08:06 Temperature 98.0 F Pulse Rate 81 88 88 Respiratory Rate 16 16 20 Blood Pressure 113/53 L Pulse Oximetry 93 92 Oxygen Delivery Nasal Cannula Oxygen Flow Rate 1 04/25/25 08:15 Temperature Pulse Rate 92 Respiratory Rate 16 Blood Pressure Pulse Oximetry Oxygen Delivery Oxygen Flow Rate Intake/Output Intake/Output: Intake & Output 04/22/25 04/23/25 04/24/25 04/25/25 23:59 23:59 23:59 23:59 Intake Total 1850 1380 1520 350 Output Total 1657 573 0013 Balance 850 1380 1320 -850 Meds/Results Medications: Active Medications Generic Name Dose Route Start Last Admin Trade Name Freq PRN Reason Stop Dose Admin Acetaminophen 650 mg 04/19/25 00:05 04/19/25 00:29 Acetaminophen 650 Mg Suppository RECTAL 650 mg Q6H PRN Administration Mild Pain (1-3) or Fever Acetaminophen 650 mg 04/19/25 08:34 04/24/25 21:57 Acetaminophen 325 Mg Tablet PO 650 mg Q6H PRN Administration Mild Pain (Scale Score 1-4) Albuterol 2.5 mg 04/20/25 11:28 Albuterol Sulfate Neb 2.5 Mg/3 Ml Inh INHALATION QIDRT PRN Shortness Of Breath Albuterol/Ipratropium 3 ml 04/19/25 08:34 04/25/25 08:05 Ipratropium 0.5 Mg/Albuterol Sulfate 2.5 Mg Ampul.Neb 3 Ml INHALATION 3 ml Q6HRT PRN Administration Shortness Of Breath Lipase/Protease/Amylase 4 cap 04/19/25 09:00 04/25/25 07:58 Lipase/Amylase/Protease 12,000 Units Cap PO 4 cap TID DOC Administration Apixaban 2.5 mg 04/19/25 09:00 04/25/25 07:59 Apixaban 2.5 Mg Tablet PO 2.5 mg Q12HR DOC Administration Artificial Tears 1 drop 04/20/25 17:00 04/25/25 08:00 Artificial Tears Ophth Soln 15 Ml Bottle EACH EYE 1 drop BID DOC Administration Ascorbic Acid 500 mg 04/20/25 17:00 04/25/25 07:59 Ascorbic Acid 500 Mg Tablet PO 500 mg BID DOC Administration Atorvastatin Calcium 40 mg 04/19/25 18:00 04/24/25 17:19 Atorvastatin 40 Mg Tablet PO 40 mg QPM DOC Administration Baclofen 10 mg 04/20/25 11:28 04/25/25 07:59 Baclofen 10 Mg Tablet PO 10 mg Q6H PRN Administration moderate pain Budesonide 0.5 mg 04/19/25 08:45 04/25/25 08:05 Budesonide Respule Neb 0.5 Mg/2 Ml Amp INHALATION 0.5 mg Q12HRT DOC Administration Bupropion HCl 75 mg 04/21/25 09:00 04/25/25 07:59 Bupropion Hcl 75 Mg Tablet PO 75 mg DAILY DOC Administration Calcium Carbonate 200 mg 04/21/25 17:00 04/25/25 07:58 Calcium Carbonate (Tums) 500 Mg (200 Mg Elemental) PO 200 mg BID DOC Administration Cyanocobalamin 500 mcg 04/21/25 09:00 04/25/25 07:59 Cyanocobalamin 500 Mcg Tablet PO 500 mcg DAILY DOC Administration Diclofenac Sodium 1 applic 04/20/25 13:00 04/25/25 08:00 Diclofenac Sodium 1% 100 Gm Gel (*Bkc) TOPICAL 1 applic QID DOC Administration Ferrous Sulfate 325 mg 04/21/25 09:00 04/25/25 07:59 Ferrous Sulfate [address] BY MOUTH 325 mg DAILY DOC Administration Fluticasone Propionate 1 spray 04/20/25 21:00 04/25/25 08:00 Fluticasone Propionate 0.05% Na Spr 16 Gm Btl (*Bkc) NASAL Not Given Q12HR [facility] Folic Acid 1 mg 04/21/25 09:00 04/25/25 07:59 Folic Acid 1 Mg Tablet PO 1 mg DAILY DOC Administration Hydrocortisone 1 applic 04/19/25 08:34 04/22/25 18:42 Hydrocortisone 2.5% Cream 30 Gm Tube TOPICAL 1 applic QID PRN Administration Itching Metronidazole 500 mg in 100 mls @ 100 mls/hr 04/23/25 14:00 04/25/25 05:19 Flagyl 500 Mg/Iso Soln 100 Ml IVPB 100 mls/hr Q8HR DOC Administration Piperacillin Sod/Tazobactam 50 mls @ 100 mls/hr 04/23/25 16:00 04/25/25 04:38 Sod 3.375 gm/ Sodium Chloride IVPB 100 mls/hr Q6H DOC Administration Loperamide HCl 2 mg 04/19/25 18:03 04/22/25 21:31 Loperamide Hcl 2 Mg Capsule PO 2 mg PRN PRN Administration Diarrhea Loratadine 10 mg 04/21/25 09:00 04/25/25 07:59 Loratadine 10 Mg Tablet PO 10 mg QAM DOC Administration Mupirocin 1 applic 04/23/25 14:00 04/25/25 08:00 Mupirocin 2% Oint 22 Gm Tube EACH NARE 04/27/25 21:01 1 applic Q12HR DOC Administration Naloxone HCl 0.4 mg 04/18/25 16:30 Naloxone Hcl 0.4 Mg/Ml Vial IV PUSH Q5MIN PRN Overdose Ondansetron HCl 4 mg 04/20/25 08:59 04/23/25 21:33 Ondansetron Inj 4 Mg/2 Ml Vial IV PUSH 4 mg Q6H PRN Administration Nausea And Vomiting Pregabalin 150 mg 04/20/25 17:00 04/25/25 07:58 Pregabalin (*Crx) 75 Mg Capsule PO 150 mg BID DOC Administration Prochlorperazine Edisylate 10 mg 04/21/25 10:14 04/21/25 20:11 Prochlorperazine Edisylate 10 Mg/2 Ml Vial IV PUSH 10 mg Q6H PRN Administration Nausea And Vomiting Sodium Chloride 20 ml 04/18/25 15:29 Central Line Flush IV PUSH PRN PRN after blood draws Sodium Chloride 20 ml 04/18/25 19:04 04/19/25 05:13 Central Line Flush IV PUSH 20 ml PRN PRN Administration after blood draws Umeclidinium/Vilanterol 1 puff 04/19/25 08:45 04/25/25 08:05 Umeclidinium/Vilanterol 62.5-25 Mcg Ellipta INHALATION 1 puff DAILYRT DOC Administration Vitamin D 25 mcg 04/21/25 09:00 04/25/25 07:58 Cholecalciferol (Vitamin D3) 25 Mcg (1,000 Units) Tablet PO 25 mcg DAILY DOC Administration Radiology Results: ITS Impressions Chest CT 04/18/25 14:28 IMPRESSION: 1. Fibrotic changes with possible superimposed pneumonia in the lingula. 2. Pneumonia in the left lower lobe. 3. Fibrotic changes in the right upper lobe with superimposed infection is not excluded. 4. Prominent pulmonary artery suggestive of pulmonary hypertension. 5. Narrowing of the main bronchi which may indicate bronchomalacia. 6. Right adrenal adenoma unchanged. Head CT 04/18/25 18:15 IMPRESSION: No acute intracranial process. Chest X-Ray 04/23/25 09:54 Impression: 1: Stable chest. Chronic interstitial lung disease with superimposed consolidation particularly in the right upper and left lower lobe. Cannot exclude superimposed atypical pneumonia. Abdomen/Pelvis CT 04/23/25 13:18 IMPRESSION: 1. Acute sigmoid diverticulitis with probable small peridiverticular abscess measuring 1.9 x 0.8 cm. 2: Patchy bibasilar airspace consolidation, consistent with pneumonia. Labs Labs: Laboratory Results - last 24 hr 04/25/25 08:09 WBC 12.2 H RBC 2.81 L Hgb 8.4 L Hct 27.2 L MCV 96.8 MCH 29.9 MCHC 30.9 L RDW 13.6 Plt Count 343 MPV 11.3 H Immature Gran % (Auto) 0.9 H Neut % (Auto) 70.9 Lymph % (Auto) 12.9 L [place] % (Auto) 8.6 H Eos % (Auto) 6.2 H Baso % (Auto) 0.5 Lymph # (Auto) 1.58 [place] # (Auto) 1.1 H Eos # (Auto) 0.8 H Baso # (Auto) 0.1 Abs Immat Gran (auto) 0.11 H Absolute Neuts (auto) 8.7 H Absolute Nucleated RBC 0.000 Nucleated RBC % 0.0 Sodium 134 L Potassium 4.2 Chloride 98 Carbon Dioxide 32 H Anion Gap 4 BUN 6 L Creatinine 0.69 L Estim Creat Clear Calc 52 Estimated GFR > 60 Glucose 107 Calcium 8.8
[2025-04-25] MEDS: ACETAMINOPHEN 325 MG TABLET 650 MG PO ×2 (11:03→17:57)
--- NOTE | 2025-04-25 12:37 | PM.IMPN ---
Progress Note: A&P Assessment and Plan (1) Septic shock: Code(s): A41.9 - Sepsis, unspecified organism; R65.21 - Severe sepsis with septic shock Status: Acute (2) Chronic anticoagulation: Code(s): Z79.01 - [facility]FP (current) use of anticoagulants Status: Acute Assessment and Plan: Resume Eliquis (3) Diarrhea: Code(s): R19.7 - Diarrhea, unspecified Status: Acute Assessment and Plan: [facility]. Denies any hematochezia melena or abdominal pain (4) Altered mental status: Qualifiers: Altered mental status type: disorientation Qualified Code(s): R41.0 - Disorientation, unspecified Code(s): R41.82 - Altered mental status, unspecified Status: Acute Assessment and Plan: Altered mental status likely secondary to multiple medications, opioid and sepsis. Head CT was negative (5) COPD (chronic obstructive pulmonary disease): Qualifiers: COPD type: unspecified COPD Qualified Code(s): J44.9 - Chronic obstructive pulmonary disease, unspecified Code(s): J44.9 - Chronic obstructive pulmonary disease, unspecified Status: Chronic Assessment and Plan: History of COPD not in exacerbation. Continue bronchodilators and budesonide (6) Chronic interstitial lung disease: Code(s): J84.9 - Interstitial pulmonary disease, unspecified Status: Acute Assessment and Plan: Continue supplemental oxygen (7) Acute on chronic respiratory failure with hypoxia and hypercapnia: Code(s): J96.21 - Acute and chronic respiratory failure with hypoxia; J96.22 - Acute and chronic respiratory failure with hypercapnia Status: Acute (8) PNA (pneumonia): Code(s): J18.9 - Pneumonia, unspecified organism Status: Acute Assessment and Plan: See above Plan Acute metabolic encephalopathy, resolved Secondary to narcotics overdose vs sepsis improving CT head neg hold off narcotics C/W Iv Abx follow culture results septic shock, resolved pneumonia Cdiff neg off of Levophed received IVF on Levaquin Diverticulitis with abscess this is the cause of the recent worsening leukocytosis CT AP reviewed Continue Zosyn and Flagyl advance diet today per surgery, possibel discharge tomorrow Gen surgery following Iron deficiency anemia Hb 8.4 and Isat 14 IV iron 500/1000 Diarrhea, resolved improving C diff neg Imodium continue to monitor COPD home inhalers Acute and chronic respiratory failure with hypoxia s/p BiPAP, now at baseline 2 liters oxygen improving secondary to pneumonia ABX repeat CXR showed stable findings Continue Levaquin MRSA colonization since patient's pneumonia responded to Levaquin will start patient on Mupirocin application to nares bid monitor frequent fall fall precautions PT/OT hypocalcemia, resolved Tums mild hyponatremia monitor Obesity lifestyle modification DVT prophylaxis -continue Eliquis Stress ulcer prophylaxis - Nutrition -diet ordered Code Status -patient is DNR DNI Subjective Date/time seen: 04/25/25 12:37 Interval history: Comfortable at bedside abd pain improving advance diet per Gen surgery Review of Systems Review of Systems: All systems reviewed & are unremarkable except as noted in HPI and below (HPI) ROS unobtainable: Yes unobtainable due to medical condition and unobtainable due to mental status Exam Narrative: General: Pt is alert awake and in NAD Lungs/Chest: Trachea central Clear BS B/L, No crackles or wheezing. Cardiac: RRR. Normal S1 S2. No murmurs Circulation: Both feet are warm Abdomen: Normal bowel sounds. Obese. Soft. NT. ND. Extremities: No clubbing, cyanosis or edema. Warm : Andrews in place Neurologic:alert oriented x3. no focal sign Skin: No Rash Objective Data Vital Signs Vital Signs: Vital Signs - 24 hr 04/24/25 15:28 04/24/25 19:55 04/24/25 19:55 Temperature 99.0 F Pulse Rate 90 95 95 Respiratory Rate 18 16 16 Blood Pressure 117/57 L Pulse Oximetry 96 91 Oxygen Delivery Nasal Cannula Oxygen Flow Rate 1 04/24/25 20:02 04/24/25 20:40 04/24/25 21:05 Temperature 98.0 F Pulse Rate 97 80 Respiratory Rate 16 16 Blood Pressure 100/53 L Pulse Oximetry 92 92 Oxygen Delivery Nasal Cannula Oxygen Flow Rate 1 04/25/25 07:09 04/25/25 08:00 04/25/25 08:06 Temperature 98.0 F Pulse Rate 81 88 Respiratory Rate 16 16 Blood Pressure 113/53 L Pulse Oximetry 93 92 Oxygen Delivery Nasal Cannula Oxygen Flow Rate 1 04/25/25 08:06 04/25/25 08:15 Temperature Pulse Rate 88 92 Respiratory Rate 20 16 Blood Pressure Pulse Oximetry 92 Oxygen Delivery Nasal Cannula Oxygen Flow Rate 1 Intake/Output Intake/Output: Intake & Output 04/22/25 04/23/25 04/24/25 04/25/25 23:59 23:59 23:59 23:59 Intake Total 1850 1380 1520 400 Output Total 3339 756 5869 Balance 850 1380 1320 -800 Meds/Results Medications: Active Medications Generic Name Dose Route Start Last Admin Trade Name Freq PRN Reason Stop Dose Admin Acetaminophen 650 mg 04/19/25 00:05 04/19/25 00:29 Acetaminophen 650 Mg Suppository RECTAL 650 mg Q6H PRN Administration Mild Pain (1-3) or Fever Acetaminophen 650 mg 04/19/25 08:34 04/25/25 11:03 Acetaminophen 325 Mg Tablet PO 650 mg Q6H PRN Administration Mild Pain (Scale Score 1-4) Albuterol 2.5 mg 04/20/25 11:28 Albuterol Sulfate Neb 2.5 Mg/3 Ml Inh INHALATION QIDRT PRN Shortness Of Breath Albuterol/Ipratropium 3 ml 04/19/25 08:34 04/25/25 08:05 Ipratropium 0.5 Mg/Albuterol Sulfate 2.5 Mg Ampul.Neb 3 Ml INHALATION 3 ml Q6HRT PRN Administration Shortness Of Breath Lipase/Protease/Amylase 4 cap 04/19/25 09:00 04/25/25 07:58 Lipase/Amylase/Protease 12,000 Units Cap PO 4 cap TID DOC Administration Apixaban 2.5 mg 04/19/25 09:00 04/25/25 07:59 Apixaban 2.5 Mg Tablet PO 2.5 mg Q12HR DOC Administration Artificial Tears 1 drop 04/20/25 17:00 04/25/25 08:00 Artificial Tears Ophth Soln 15 Ml Bottle EACH EYE 1 drop BID DOC Administration Ascorbic Acid 500 mg 04/20/25 17:00 04/25/25 07:59 Ascorbic Acid 500 Mg Tablet PO 500 mg BID DOC Administration Atorvastatin Calcium 40 mg 04/19/25 18:00 04/24/25 17:19 Atorvastatin 40 Mg Tablet PO 40 mg QPM DOC Administration Baclofen 10 mg 04/20/25 11:28 04/25/25 07:59 Baclofen 10 Mg Tablet PO 10 mg Q6H PRN Administration moderate pain Budesonide 0.5 mg 04/19/25 08:45 04/25/25 08:05 Budesonide Respule Neb 0.5 Mg/2 Ml Amp INHALATION 0.5 mg Q12HRT DOC Administration Bupropion HCl 75 mg 04/21/25 09:00 04/25/25 07:59 Bupropion Hcl 75 Mg Tablet PO 75 mg DAILY DOC Administration Calcium Carbonate 200 mg 04/21/25 17:00 04/25/25 07:58 Calcium Carbonate (Tums) 500 Mg (200 Mg Elemental) PO 200 mg BID DOC Administration Cyanocobalamin 500 mcg 04/21/25 09:00 04/25/25 07:59 Cyanocobalamin 500 Mcg Tablet PO 500 mcg DAILY DOC Administration Diclofenac Sodium 1 applic 04/20/25 13:00 04/25/25 08:00 Diclofenac Sodium 1% 100 Gm Gel (*Bkc) TOPICAL 1 applic QID DOC Administration Ferrous Sulfate 325 mg 04/21/25 09:00 04/25/25 07:59 Ferrous Sulfate [address] BY MOUTH 325 mg DAILY DOC Administration Fluticasone Propionate 1 spray 04/20/25 21:00 04/25/25 08:00 Fluticasone Propionate 0.05% Na Spr 16 Gm Btl (*Bkc) NASAL Not Given Q12HR DOC Folic Acid 1 mg 04/21/25 09:00 04/25/25 07:59 Folic Acid 1 Mg Tablet PO 1 mg DAILY DOC Administration Hydrocortisone 1 applic 04/19/25 08:34 04/22/25 18:42 Hydrocortisone 2.5% Cream 30 Gm Tube TOPICAL 1 applic QID PRN Administration Itching Metronidazole 500 mg in 100 mls @ 100 mls/hr 04/23/25 14:00 04/25/25 05:19 Flagyl 500 Mg/Iso Soln 100 Ml IVPB 100 mls/hr Q8HR DOC Administration Piperacillin Sod/Tazobactam 50 mls @ 100 mls/hr 04/23/25 16:00 04/25/25 10:52 Sod 3.375 gm/ Sodium Chloride IVPB 100 mls/hr Q6H DOC Administration Loperamide HCl 2 mg 04/19/25 18:03 04/22/25 21:31 Loperamide Hcl 2 Mg Capsule PO 2 mg PRN PRN Administration Diarrhea Loratadine 10 mg 04/21/25 09:00 04/25/25 07:59 Loratadine 10 Mg Tablet PO 10 mg QAM DOC Administration Mupirocin 1 applic 04/23/25 14:00 04/25/25 08:00 Mupirocin 2% Oint 22 Gm Tube EACH NARE 04/27/25 21:01 1 applic Q12HR DOC Administration Naloxone HCl 0.4 mg 04/18/25 16:30 Naloxone Hcl 0.4 Mg/Ml Vial IV PUSH Q5MIN PRN Overdose Ondansetron HCl 4 mg 04/20/25 08:59 04/23/25 21:33 Ondansetron Inj 4 Mg/2 Ml Vial IV PUSH 4 mg Q6H PRN Administration Nausea And Vomiting Pregabalin 150 mg 04/20/25 17:00 04/25/25 07:58 Pregabalin (*Crx) 75 Mg Capsule PO 150 mg BID DOC Administration Prochlorperazine Edisylate 10 mg 04/21/25 10:14 04/21/25 20:11 Prochlorperazine Edisylate 10 Mg/2 Ml Vial IV PUSH 10 mg Q6H PRN Administration Nausea And Vomiting Sodium Chloride 20 ml 04/18/25 15:29 Central Line Flush IV PUSH PRN PRN after blood draws Sodium Chloride 20 ml 04/18/25 19:04 04/19/25 05:13 Central Line Flush IV PUSH 20 ml PRN PRN Administration after blood draws Umeclidinium/Vilanterol 1 puff 04/19/25 08:45 04/25/25 08:05 Umeclidinium/Vilanterol 62.5-25 Mcg Ellipta INHALATION 1 puff DAILYRT DOC Administration Vitamin D 25 mcg 04/21/25 09:00 04/25/25 07:58 Cholecalciferol (Vitamin D3) 25 Mcg (1,000 Units) Tablet PO 25 mcg DAILY DOC Administration Radiology Results: ITS Impressions Chest CT 04/18/25 14:28 IMPRESSION: 1. Fibrotic changes with possible superimposed pneumonia in the lingula. 2. Pneumonia in the left lower lobe. 3. Fibrotic changes in the right upper lobe with superimposed infection is not excluded. 4. Prominent pulmonary artery suggestive of pulmonary hypertension. 5. Narrowing of the main bronchi which may indicate bronchomalacia. 6. Right adrenal adenoma unchanged. Head CT 04/18/25 18:15 IMPRESSION: No acute intracranial process. Chest X-Ray 04/23/25 09:54 Impression: 1: Stable chest. Chronic interstitial lung disease with superimposed consolidation particularly in the right upper and left lower lobe. Cannot exclude superimposed atypical pneumonia. Abdomen/Pelvis CT 04/23/25 13:18 IMPRESSION: 1. Acute sigmoid diverticulitis with probable small peridiverticular abscess measuring 1.9 x 0.8 cm. 2: Patchy bibasilar airspace consolidation, consistent with pneumonia. Labs Labs: Laboratory Results - last 24 hr 04/25/25 08:09 WBC 12.2 H RBC 2.81 L Hgb 8.4 L Hct 27.2 L MCV 96.8 MCH 29.9 MCHC 30.9 L RDW 13.6 Plt Count 343 MPV 11.3 H Immature Gran % (Auto) 0.9 H Neut % (Auto) 70.9 Lymph % (Auto) 12.9 L [place] % (Auto) 8.6 H Eos % (Auto) 6.2 H Baso % (Auto) 0.5 Lymph # (Auto) 1.58 [place] # (Auto) 1.1 H Eos # (Auto) 0.8 H Baso # (Auto) 0.1 Abs Immat Gran (auto) 0.11 H Absolute Neuts (auto) 8.7 H Absolute Nucleated RBC 0.000 Nucleated RBC % 0.0 Sodium 134 L Potassium 4.2 Chloride 98 Carbon Dioxide 32 H Anion Gap 4 BUN 6 L Creatinine 0.69 L Estim Creat Clear Calc 52 Estimated GFR > 60 Glucose 107 Calcium 8.8 Quality VTE Prophylaxis VTE prophylaxis: mechanical ordered
--- NOTE | 2025-04-25 13:12 | PCNFU ---
Nutrition Follow-Up Complete: Suboptimal po intake related to appetite as evidenced by pt report and charted intake PO intake 50% or greater - not meeting goal yet, just advanced to full liquids for lunch Goal: Pt current nutrition is Full liquid diet. Ensure HP+ BID (350 kcal, 20 g protein) Nutrition recommendation: Advance diet as medically able Last recorded weight is 73.6 kg. Bowel Motility: +1 BM 04/25 Labs Reviewed: Hgb 8.4, Hct 27.2, Na 134, BUN 6, Cre 0.69 Meds Noted: Creon, Vit D2, Vit B12, folic acid Skin: No skin issues Additional Notes: Just advanced to full liquids for lunch. Pt says she is hungry and wants regular food. COntinue to monitor Monitor intake, wt, labs. Follow up in 5 days.
[2025-04-25] MEDS: IRON SUCROSE COMPLEX 400 MG, IRON SUCROSE COMPLEX 100 MG in SODIUM CHLORIDE 0.9% IV 250 ML 78.57 MG IVPB (14:31)
[2025-04-25] MEDS: ATORVASTATIN 40 MG TABLET PO (17:52)
[2025-04-25] MEDS: LOPERAMIDE HCL 2 MG CAPSULE PO (18:44)
[2025-04-25] MEDS: ONDANSETRON INJ 4 MG/2 ML VIAL IV PUSH (19:49)
[2025-04-25] MEDS: FLUTICASONE PROPIONATE 0.05% NA SPR 16 GM BTL (*BKC) 1 SPRAY NASAL (20:47)
[2025-04-26] VITALS (9 sets, daily range): BP systolic 101–123; BP diastolic 50–61; PULSE 81–97; RESP 16–18; TEMP 36.6–36.8; O2SAT 90–96
[2025-04-26] MEDS: PIPERACILLIN/TAZOBACTAM SOD 3.375 GM in SODIUM CHLORIDE 0.9% IV 50 ML 100 ML IVPB ×4 (04:08→22:29)
[2025-04-26] MEDS: metroNIDAZOLE 500 MG/ISO 100ML 500 MG/100 ML BAG 100 MG IVPB ×3 (04:59→22:23)
[2025-04-26 05:26] LABS: Hematocrit 27.5 % (37.0-47.0); Hemoglobin 8.2 g/dL (12.0-15.0); Immature Granulocyte Percent A 0.7 % (0-0.5); Lymphocytes Absolute Auto 1.30 K/mm3 (0.9-3.2); Mean Corpuscular HGB Conc 29.8 g/dl (32-36); Mean Corpuscular Hemoglobin 29.3 pg (26-34); Mean Corpuscular Volume 98.2 fl (80-100); Nucleated Red Blood Cells Absolute Auto 0.000 K/mm3 (0.0-0.012); Nucleated Red Blood Cells Perc 0.0 % (0.0-0.2); Platelet Count Result 357 k/mm3 (150-375); Red Blood Count 2.80 M/mm3 (4.2-5.4); White Blood Count 10.9 K/mm3 (4.5-10.0)
[2025-04-26 05:47] LABS: Alanine Aminotransferase 9 U/L (6-35); Albumin Level 3.2 g/dL (3.5-5.1); Alkaline Phosphatase 54 U/L (38-126); Anion Gap 4 mmol/L (4-12); Aspartate Amino Transferase 23 U/L (14-36); Bilirubin,Total 0.3 mg/dL (0.2-1.3); Blood Urea Nitrogen 7 mg/dL (7-17); Calcium 8.6 mg/dL (8.4-10.2); Carbon Dioxide 31 mmol/L (22-30); Chloride 98 mmol/L (98-107); Estimated CRCL calculation 54 ml/min; Estimated Glomerular Filt Rate > 60; Glucose 98 mg/dL (65-110); Magnesium 1.8 mg/dL (1.6-2.3); Potassium 4.0 mmol/L (3.4-5.0); Sodium 133 mmol/L (137-145); Total Protein 6.4 g/dL (6.3-8.2)
[2025-04-26] MEDS: BUDESONIDE RESPULE NEB 0.5 MG/2 ML AMP INHALATION ×2 (09:19→20:35)
[2025-04-26] MEDS: UMECLIDINIUM/VILANTEROL 62.5-25 MCG ELLIPTA 1 PUFF INHALATION (09:19)
[2025-04-26] MEDS: PREGABALIN (*CRX) 75 MG CAPSULE 150 MG PO ×2 (09:41→17:23)
[2025-04-26] MEDS: LIPASE/AMYLASE/PROTEASE 12,000 UNITS CAP 4 CAP PO ×3 (09:41→17:23)
[2025-04-26] MEDS: FERROUS SULFATE 325 MG TABLET DR BY MOUTH (09:41)
[2025-04-26] MEDS: FOLIC ACID 1 MG TABLET PO (09:41)
[2025-04-26] MEDS: ASCORBIC ACID 500 MG TABLET PO ×2 (09:41→17:23)
[2025-04-26] MEDS: APIXABAN 2.5 MG TABLET PO ×2 (09:41→22:22)
[2025-04-26] MEDS: CHOLECALCIFEROL (VITAMIN D3) 25 MCG (1,000 UNITS) TABLET PO (09:41)
[2025-04-26] MEDS: CALCIUM CARBONATE (TUMS) 500 MG (200 MG ELEMENTAL) PO ×2 (09:42→17:23)
[2025-04-26] MEDS: CYANOCOBALAMIN 500 MCG TABLET PO (09:42)
[2025-04-26] MEDS: LORATADINE 10 MG TABLET PO (09:42)
[2025-04-26] MEDS: DICLOFENAC SODIUM 1% 100 GM GEL (*BKC) 1 APPLIC TOPICAL ×2 (09:43→22:22)
[2025-04-26] MEDS: MUPIROCIN 2% OINT 22 GM TUBE 1 APPLIC EACH NARE ×2 (09:43→22:23)
[2025-04-26] MEDS: LOPERAMIDE HCL 2 MG CAPSULE PO ×2 (09:44→12:41)
[2025-04-26] MEDS: ONDANSETRON INJ 4 MG/2 ML VIAL IV PUSH (10:28)
[2025-04-26] MEDS: IRON SUCROSE COMPLEX 400 MG, IRON SUCROSE COMPLEX 100 MG in SODIUM CHLORIDE 0.9% IV 250 ML 78.57 MG IVPB (10:28)
--- NOTE | 2025-04-26 12:13 | PM.PNGS ---
Progress Note: A&P Assessment and Plan (1) Diverticular disease of intestine with perforation and abscess: Code(s): K57.80 - Diverticulitis of intestine, part unspecified, with perforation and abscess without bleeding Status: Acute Assessment and Plan: Advance to soft low fiber diet today OK to discharge from surgical standpoint F/u with Dr. Hopkins in office in 2 weeks (2) Pneumonia: Qualifiers: Laterality: bilateral Lung location: lower lobe of lung Pneumonia type: due to unspecified organism Qualified Code(s): J18.9 - Pneumonia, unspecified organism Code(s): J18.9 - Pneumonia, unspecified organism Status: Acute Assessment and Plan: Continue IV antibiotic treatment. WBC count trending down. Subjective Subjective Date/Time Seen: 04/26/25 12:13 Interval history: Tolerating diet. Having diarrhea. No fevers. Minimal abdominal pain. Exam GI: Inspection: non-distended GI Palp: Yes Soft to palpation, Yes Tenderness to palpation present (GI) (minimal LLQ), No Guarding due to palpation present (GI) and No Rebound tenderness present Percussion: Yes normal to percussion Auscultation: normal bowel sounds Objective Data Vital Signs Vital Signs: Vital Signs - 24 hr 04/25/25 12:59 04/25/25 20:00 04/25/25 21:16 Temperature 97 F L Pulse Rate 85 73 Respiratory Rate 24 H 16 Blood Pressure 116/55 L Pulse Oximetry 93 94 Oxygen Delivery Nasal Cannula Oxygen Flow Rate 1 Fraction of Inspired Oxygen 04/25/25 21:16 04/25/25 21:21 04/25/25 21:24 Temperature 98.2 F Pulse Rate 74 73 75 Respiratory Rate 18 16 Blood Pressure 98/43 L Pulse Oximetry 91 94 Oxygen Delivery Nasal Cannula Oxygen Flow Rate 1 Fraction of Inspired Oxygen 04/26/25 06:00 04/26/25 09:24 04/26/25 09:27 Temperature 98.2 F Pulse Rate 81 92 92 Respiratory Rate 18 18 18 Blood Pressure 123/50 L Pulse Oximetry 90 96 Oxygen Delivery Nasal Cannula Oxygen Flow Rate 1 Fraction of Inspired Oxygen 04/26/25 09:45 Temperature Pulse Rate Respiratory Rate Blood Pressure Pulse Oximetry 93 Oxygen Delivery Nasal Cannula Oxygen Flow Rate 1 Fraction of Inspired Oxygen Intake/Output Intake/Output: Intake & Output 04/23/25 04/24/25 04/25/25 04/26/25 23:59 23:59 23:59 23:59 Intake Total 1380 1520 1730 440 Output Total 200 1700 800 Balance 1380 1320 30 -360 Meds/Results Medications: Active Medications Generic Name Dose Route Start Last Admin Trade Name Freq PRN Reason Stop Dose Admin Acetaminophen 650 mg 04/19/25 00:05 04/19/25 00:29 Acetaminophen 650 Mg Suppository RECTAL 650 mg Q6H PRN Administration Mild Pain (1-3) or Fever Acetaminophen 650 mg 04/19/25 08:34 04/25/25 17:57 Acetaminophen 325 Mg Tablet PO 650 mg Q6H PRN Administration Mild Pain (Scale Score 1-4) Albuterol 2.5 mg 04/20/25 11:28 Albuterol Sulfate Neb 2.5 Mg/3 Ml Inh INHALATION QIDRT PRN Shortness Of Breath Albuterol/Ipratropium 3 ml 04/19/25 08:34 04/25/25 08:05 Ipratropium 0.5 Mg/Albuterol Sulfate 2.5 Mg Ampul.Neb 3 Ml INHALATION 3 ml Q6HRT PRN Administration Shortness Of Breath Lipase/Protease/Amylase 4 cap 04/19/25 09:00 04/26/25 09:41 Lipase/Amylase/Protease 12,000 Units Cap PO 4 cap TID DOC Administration Apixaban 2.5 mg 04/19/25 09:00 04/26/25 09:41 Apixaban 2.5 Mg Tablet PO 2.5 mg Q12HR DOC Administration Artificial Tears 1 drop 04/20/25 17:00 04/26/25 09:42 Artificial Tears Ophth Soln 15 Ml Bottle EACH EYE Not Given BID DOC Ascorbic Acid 500 mg 04/20/25 17:00 04/26/25 09:41 Ascorbic Acid 500 Mg Tablet PO 500 mg BID DOC Administration Atorvastatin Calcium 40 mg 04/19/25 18:00 04/25/25 17:52 Atorvastatin 40 Mg Tablet PO 40 mg QPM DOC Administration Baclofen 10 mg 04/20/25 11:28 04/25/25 21:13 Baclofen 10 Mg Tablet PO 10 mg Q6H PRN Administration moderate pain Budesonide 0.5 mg 04/19/25 08:45 04/26/25 09:19 Budesonide Respule Neb 0.5 Mg/2 Ml Amp INHALATION 0.5 mg Q12HRT DOC Administration Bupropion HCl 75 mg 04/21/25 09:00 04/26/25 09:41 Bupropion Hcl 75 Mg Tablet PO 75 mg DAILY DOC Administration Calcium Carbonate 200 mg 04/21/25 17:00 04/26/25 09:42 Calcium Carbonate (Tums) 500 Mg (200 Mg Elemental) PO 200 mg BID DOC Administration Cyanocobalamin 500 mcg 04/21/25 09:00 04/26/25 09:42 Cyanocobalamin 500 Mcg Tablet PO 500 mcg DAILY DOC Administration Diclofenac Sodium 1 applic 04/20/25 13:00 04/26/25 09:43 Diclofenac Sodium 1% 100 Gm Gel (*Bkc) TOPICAL 1 applic QID DOC Administration Ferrous Sulfate 325 mg 04/21/25 09:00 04/26/25 09:41 Ferrous Sulfate [address] BY MOUTH 325 mg DAILY DOC Administration Fluticasone Propionate 1 spray 04/20/25 21:00 04/26/25 09:42 Fluticasone Propionate 0.05% Na Spr 16 Gm Btl (*Bkc) NASAL Not Given Q12HR [facility] Folic Acid 1 mg 04/21/25 09:00 04/26/25 09:41 Folic Acid 1 Mg Tablet PO 1 mg DAILY DOC Administration Hydrocortisone 1 applic 04/19/25 08:34 04/22/25 18:42 Hydrocortisone 2.5% Cream 30 Gm Tube TOPICAL 1 applic QID PRN Administration Itching Metronidazole 500 mg in 100 mls @ 100 mls/hr 04/23/25 14:00 04/26/25 04:59 Flagyl 500 Mg/Iso Soln 100 Ml IVPB 100 mls/hr Q8HR DOC Administration Piperacillin Sod/Tazobactam 50 mls @ 100 mls/hr 04/23/25 16:00 04/26/25 10:12 Sod 3.375 gm/ Sodium Chloride IVPB Infused Q6H DOC Infusion Iron Sucrose 400 mg/ Iron 275 mls @ 78.571 mls/hr 04/26/25 11:00 04/26/25 10:28 Sucrose 100 mg/ Sodium IVPB 04/26/25 14:29 78.57 mls/hr Chloride ONCE ONE Administration Loperamide HCl 2 mg 04/19/25 18:03 04/26/25 09:44 Loperamide Hcl 2 Mg Capsule PO 2 mg PRN PRN Administration Diarrhea Loratadine 10 mg 04/21/25 09:00 04/26/25 09:42 Loratadine 10 Mg Tablet PO 10 mg QAM DOC Administration Mupirocin 1 applic 04/23/25 14:00 04/26/25 09:43 Mupirocin 2% Oint 22 Gm Tube EACH NARE 04/27/25 21:01 1 applic Q12HR DOC Administration Naloxone HCl 0.4 mg 04/18/25 16:30 Naloxone Hcl 0.4 Mg/Ml Vial IV PUSH Q5MIN PRN Overdose Ondansetron HCl 4 mg 04/20/25 08:59 04/26/25 10:28 Ondansetron Inj 4 Mg/2 Ml Vial IV PUSH 4 mg Q6H PRN Administration Nausea And Vomiting Pregabalin 150 mg 04/20/25 17:00 04/26/25 09:41 Pregabalin (*Crx) 75 Mg Capsule PO 150 mg BID DOC Administration Prochlorperazine Edisylate 10 mg 04/21/25 10:14 04/21/25 20:11 Prochlorperazine Edisylate 10 Mg/2 Ml Vial IV PUSH 10 mg Q6H PRN Administration Nausea And Vomiting Sodium Chloride 20 ml 04/18/25 15:29 Central Line Flush IV PUSH PRN PRN after blood draws Sodium Chloride 20 ml 04/18/25 19:04 04/19/25 05:13 Central Line Flush IV PUSH 20 ml PRN PRN Administration after blood draws Umeclidinium/Vilanterol 1 puff 04/19/25 08:45 04/26/25 09:19 Umeclidinium/Vilanterol 62.5-25 Mcg Ellipta INHALATION 1 puff DAILYRT DOC Administration Vitamin D 25 mcg 04/21/25 09:00 04/26/25 09:41 Cholecalciferol (Vitamin D3) 25 Mcg (1,000 Units) Tablet PO 25 mcg DAILY DOC Administration Radiology Results: ITS Impressions Chest CT 04/18/25 14:28 IMPRESSION: 1. Fibrotic changes with possible superimposed pneumonia in the lingula. 2. Pneumonia in the left lower lobe. 3. Fibrotic changes in the right upper lobe with superimposed infection is not excluded. 4. Prominent pulmonary artery suggestive of pulmonary hypertension. 5. Narrowing of the main bronchi which may indicate bronchomalacia. 6. Right adrenal adenoma unchanged. Head CT 04/18/25 18:15 IMPRESSION: No acute intracranial process. Chest X-Ray 04/23/25 09:54 Impression: 1: Stable chest. Chronic interstitial lung disease with superimposed consolidation particularly in the right upper and left lower lobe. Cannot exclude superimposed atypical pneumonia. Abdomen/Pelvis CT 04/23/25 13:18 IMPRESSION: 1. Acute sigmoid diverticulitis with probable small peridiverticular abscess measuring 1.9 x 0.8 cm. 2: Patchy bibasilar airspace consolidation, consistent with pneumonia. Labs Labs: Laboratory Results - last 24 hr 04/26/25 04:59 WBC 10.9 H RBC 2.80 L Hgb 8.2 L Hct 27.5 L MCV 98.2 MCH 29.3 MCHC 29.8 L RDW 13.7 Plt Count 357 MPV 11.4 H Immature Gran % (Auto) 0.7 H Neut % (Auto) 69.8 Lymph % (Auto) 11.9 L [place] % (Auto) 10.2 H Eos % (Auto) 6.8 H Baso % (Auto) 0.6 Lymph # (Auto) 1.30 [place] # (Auto) 1.1 H Eos # (Auto) 0.7 H Baso # (Auto) 0.1 Abs Immat Gran (auto) 0.08 H Absolute Neuts (auto) 7.6 H Absolute Nucleated RBC 0.000 Nucleated RBC % 0.0 Sodium 133 L Potassium 4.0 Chloride 98 Carbon Dioxide 31 H Anion Gap 4 BUN 7 Creatinine 0.65 L Estim Creat Clear Calc 54 Estimated GFR > 60 Glucose 98 Calcium 8.6 Magnesium 1.8 Total Bilirubin 0.3 AST 23 ALT 9 Alkaline Phosphatase 54 Total Protein 6.4 Albumin 3.2 L
[2025-04-26] MEDS: PROCHLORPERAZINE EDISYLATE 10 MG/2 ML VIAL IV PUSH ×2 (12:39→18:42)
--- NOTE | 2025-04-26 13:10 | PM.IMPN ---
Progress Note: A&P Assessment and Plan (1) Septic shock: Code(s): A41.9 - Sepsis, unspecified organism; R65.21 - Severe sepsis with septic shock Status: Acute (2) Chronic anticoagulation: Code(s): Z79.01 - nursing home (current) use of anticoagulants Status: Acute Assessment and Plan: Resume Eliquis (3) Diarrhea: Code(s): R19.7 - Diarrhea, unspecified Status: Acute Assessment and Plan: Patient reports diarrhea at [place] [facility]. Denies any hematochezia melena or abdominal pain (4) Altered mental status: Qualifiers: Altered mental status type: disorientation Qualified Code(s): R41.0 - Disorientation, unspecified Code(s): R41.82 - Altered mental status, unspecified Status: Acute Assessment and Plan: Altered mental status likely secondary to multiple medications, opioid and sepsis. Head CT was negative (5) COPD (chronic obstructive pulmonary disease): Qualifiers: COPD type: unspecified COPD Qualified Code(s): J44.9 - Chronic obstructive pulmonary disease, unspecified Code(s): J44.9 - Chronic obstructive pulmonary disease, unspecified Status: Chronic Assessment and Plan: History of COPD not in exacerbation. Continue bronchodilators and budesonide (6) Chronic interstitial lung disease: Code(s): J84.9 - Interstitial pulmonary disease, unspecified Status: Acute Assessment and Plan: Continue supplemental oxygen (7) Acute on chronic respiratory failure with hypoxia and hypercapnia: Code(s): J96.21 - Acute and chronic respiratory failure with hypoxia; J96.22 - Acute and chronic respiratory failure with hypercapnia Status: Acute (8) PNA (pneumonia): Code(s): J18.9 - Pneumonia, unspecified organism Status: Acute Assessment and Plan: See above Plan Acute metabolic encephalopathy, resolved Secondary to narcotics overdose vs sepsis improving CT head neg hold off narcotics C/W Iv Abx follow culture results Septic shock, resolved pneumonia Cdiff neg off of Levophed received IVF s/p Levaquin Diverticulitis with abscess leukocytosis resolving having diarrhea this morning CT AP reviewed Continue Zosyn and Flagyl Gen surgery following Iron deficiency anemia Hb 8.2 and Isat 14 IV iron 1000/1000 Diarrhea diarrhea this morning C diff neg Imodium continue to monitor COPD home inhalers Acute and chronic respiratory failure with hypoxia s/p BiPAP, now at baseline 2 liters oxygen improving secondary to pneumonia ABX repeat CXR showed stable findings Continue Levaquin MRSA colonization since patient's pneumonia responded to Levaquin will start patient on Mupirocin application to nares bid monitor frequent fall fall precautions PT/OT hypocalcemia, resolved Tums mild hyponatremia monitor Obesity lifestyle modification DVT prophylaxis -continue Eliquis Stress ulcer prophylaxis - Nutrition -diet ordered Code Status -patient is DNR DNI Subjective Date/time seen: 04/26/25 13:10 Interval history: having diarrhea today will advance diet tonight Review of Systems Review of Systems: All systems reviewed & are unremarkable except as noted in HPI and below (HPI) ROS unobtainable: Yes unobtainable due to medical condition and unobtainable due to mental status Exam Narrative: General: Pt is alert awake and in NAD Lungs/Chest: Trachea central Clear BS B/L, No crackles or wheezing. Cardiac: RRR. Normal S1 S2. No murmurs Circulation: Both feet are warm Abdomen: Normal bowel sounds. Obese. Soft. NT. ND. Extremities: No clubbing, cyanosis or edema. Warm : Andrews in place Neurologic:alert oriented x3. no focal sign Skin: No Rash Objective Data Vital Signs Vital Signs: Vital Signs - 24 hr 04/25/25 20:00 04/25/25 21:16 04/25/25 21:16 Temperature 98.2 F Pulse Rate 73 74 Respiratory Rate 16 18 Blood Pressure 98/43 L Pulse Oximetry 94 91 Oxygen Delivery Nasal Cannula Oxygen Flow Rate 1 Fraction of Inspired Oxygen 04/25/25 21:21 04/25/25 21:24 04/26/25 06:00 Temperature 98.2 F Pulse Rate 73 75 81 Respiratory Rate 16 18 Blood Pressure 123/50 L Pulse Oximetry 94 90 Oxygen Delivery Nasal Cannula Oxygen Flow Rate 1 Fraction of Inspired Oxygen 04/26/25 09:24 04/26/25 09:27 04/26/25 09:45 Temperature Pulse Rate 92 92 Respiratory Rate 18 18 Blood Pressure Pulse Oximetry 96 93 Oxygen Delivery Nasal Cannula Nasal Cannula Oxygen Flow Rate 1 1 Fraction of Inspired Oxygen Intake/Output Intake/Output: Intake & Output 04/23/25 04/24/25 04/25/25 04/26/25 23:59 23:59 23:59 23:59 Intake Total 1380 1520 1730 440 Output Total 200 1700 800 Balance 1380 1320 30 -360 Meds/Results Medications: Active Medications Generic Name Dose Route Start Last Admin Trade Name Freq PRN Reason Stop Dose Admin Acetaminophen 650 mg 04/19/25 00:05 04/19/25 00:29 Acetaminophen 650 Mg Suppository RECTAL 650 mg Q6H PRN Administration Mild Pain (1-3) or Fever Acetaminophen 650 mg 04/19/25 08:34 04/25/25 17:57 Acetaminophen 325 Mg Tablet PO 650 mg Q6H PRN Administration Mild Pain (Scale Score 1-4) Albuterol 2.5 mg 04/20/25 11:28 Albuterol Sulfate Neb 2.5 Mg/3 Ml Inh INHALATION QIDRT PRN Shortness Of Breath Albuterol/Ipratropium 3 ml 04/19/25 08:34 04/25/25 08:05 Ipratropium 0.5 Mg/Albuterol Sulfate 2.5 Mg Ampul.Neb 3 Ml INHALATION 3 ml Q6HRT PRN Administration Shortness Of Breath Lipase/Protease/Amylase 4 cap 04/19/25 09:00 04/26/25 12:40 Lipase/Amylase/Protease 12,000 Units Cap PO 4 cap TID DOC Administration Apixaban 2.5 mg 04/19/25 09:00 04/26/25 09:41 Apixaban 2.5 Mg Tablet PO 2.5 mg Q12HR DOC Administration Artificial Tears 1 drop 04/20/25 17:00 04/26/25 09:42 Artificial Tears Ophth Soln 15 Ml Bottle EACH EYE Not Given BID DOC Ascorbic Acid 500 mg 04/20/25 17:00 04/26/25 09:41 Ascorbic Acid 500 Mg Tablet PO 500 mg BID DOC Administration Atorvastatin Calcium 40 mg 04/19/25 18:00 04/25/25 17:52 Atorvastatin 40 Mg Tablet PO 40 mg QPM DOC Administration Baclofen 10 mg 04/20/25 11:28 04/25/25 21:13 Baclofen 10 Mg Tablet PO 10 mg Q6H PRN Administration moderate pain Budesonide 0.5 mg 04/19/25 08:45 04/26/25 09:19 Budesonide Respule Neb 0.5 Mg/2 Ml Amp INHALATION 0.5 mg Q12HRT DOC Administration Bupropion HCl 75 mg 04/21/25 09:00 04/26/25 09:41 Bupropion Hcl 75 Mg Tablet PO 75 mg DAILY [facility] Administration Calcium Carbonate 200 mg 04/21/25 17:00 04/26/25 09:42 Calcium Carbonate (Tums) 500 Mg (200 Mg Elemental) PO 200 mg BID DOC Administration Cyanocobalamin 500 mcg 04/21/25 09:00 04/26/25 09:42 Cyanocobalamin 500 Mcg Tablet PO 500 mcg DAILY [facility] Administration Diclofenac Sodium 1 applic 04/20/25 13:00 04/26/25 12:40 Diclofenac Sodium 1% 100 Gm Gel (*Bkc) TOPICAL Not Given QID [facility] Ferrous Sulfate 325 mg 04/21/25 09:00 04/26/25 09:41 Ferrous Sulfate [address] BY MOUTH 325 mg DAILY [facility] Administration Fluticasone Propionate 1 spray 04/20/25 21:00 04/26/25 09:42 Fluticasone Propionate 0.05% Na Spr 16 Gm Btl (*Bkc) NASAL Not Given Q12HR [facility] Folic Acid 1 mg 04/21/25 09:00 04/26/25 09:41 Folic Acid 1 Mg Tablet PO 1 mg DAILY [facility] Administration Hydrocortisone 1 applic 04/19/25 08:34 04/22/25 18:42 Hydrocortisone 2.5% Cream 30 Gm Tube TOPICAL 1 applic QID PRN Administration Itching Metronidazole 500 mg in 100 mls @ 100 mls/hr 04/23/25 14:00 04/26/25 04:59 Flagyl 500 Mg/Iso Soln 100 Ml IVPB 100 mls/hr Q8HR [facility] Administration Piperacillin Sod/Tazobactam 50 mls @ 100 mls/hr 04/23/25 16:00 04/26/25 10:12 Sod 3.375 gm/ Sodium Chloride IVPB Infused Q6H [facility] Infusion Iron Sucrose 400 mg/ Iron 275 mls @ 78.571 mls/hr 04/26/25 11:00 04/26/25 10:28 Sucrose 100 mg/ Sodium IVPB 04/26/25 14:29 78.57 mls/hr Chloride ONCE ONE Administration Loperamide HCl 2 mg 04/19/25 18:03 04/26/25 12:41 Loperamide Hcl 2 Mg Capsule PO 2 mg PRN PRN Administration Diarrhea Loratadine 10 mg 04/21/25 09:00 04/26/25 09:42 Loratadine 10 Mg Tablet PO 10 mg QAM DOC Administration Mupirocin 1 applic 04/23/25 14:00 04/26/25 09:43 Mupirocin 2% Oint 22 Gm Tube EACH NARE 04/27/25 21:01 1 applic Q12HR DOC Administration Naloxone HCl 0.4 mg 04/18/25 16:30 Naloxone Hcl 0.4 Mg/Ml Vial IV PUSH Q5MIN PRN Overdose Ondansetron HCl 4 mg 04/20/25 08:59 04/26/25 10:28 Ondansetron Inj 4 Mg/2 Ml Vial IV PUSH 4 mg Q6H PRN Administration Nausea And Vomiting Pregabalin 150 mg 04/20/25 17:00 04/26/25 09:41 Pregabalin (*Crx) 75 Mg Capsule PO 150 mg BID DOC Administration Prochlorperazine Edisylate 10 mg 04/21/25 10:14 04/26/25 12:39 Prochlorperazine Edisylate 10 Mg/2 Ml Vial IV PUSH 10 mg Q6H PRN Administration Nausea And Vomiting Sodium Chloride 20 ml 04/18/25 15:29 Central Line Flush IV PUSH PRN PRN after blood draws Sodium Chloride 20 ml 04/18/25 19:04 04/19/25 05:13 Central Line Flush IV PUSH 20 ml PRN PRN Administration after blood draws Umeclidinium/Vilanterol 1 puff 04/19/25 08:45 04/26/25 09:19 Umeclidinium/Vilanterol 62.5-25 Mcg Ellipta INHALATION 1 puff DAILYRT DOC Administration Vitamin D 25 mcg 04/21/25 09:00 04/26/25 09:41 Cholecalciferol (Vitamin D3) 25 Mcg (1,000 Units) Tablet PO 25 mcg DAILY DOC Administration Radiology Results: ITS Impressions Chest CT 04/18/25 14:28 IMPRESSION: 1. Fibrotic changes with possible superimposed pneumonia in the lingula. 2. Pneumonia in the left lower lobe. 3. Fibrotic changes in the right upper lobe with superimposed infection is not excluded. 4. Prominent pulmonary artery suggestive of pulmonary hypertension. 5. Narrowing of the main bronchi which may indicate bronchomalacia. 6. Right adrenal adenoma unchanged. Head CT 07/18/25 18:15 IMPRESSION: No acute intracranial process. Chest X-Ray 04/23/25 09:54 Impression: 1: Stable chest. Chronic interstitial lung disease with superimposed consolidation particularly in the right upper and left lower lobe. Cannot exclude superimposed atypical pneumonia. Abdomen/Pelvis CT 04/23/25 13:18 IMPRESSION: 1. Acute sigmoid diverticulitis with probable small peridiverticular abscess measuring 1.9 x 0.8 cm. 2: Patchy bibasilar airspace consolidation, consistent with pneumonia. Labs Labs: Laboratory Results - last 24 hr 04/26/25 04:59 WBC 10.9 H RBC 2.80 L Hgb 8.2 L Hct 27.5 L MCV 98.2 MCH 29.3 MCHC 29.8 L RDW 13.7 Plt Count 357 MPV 11.4 H Immature Gran % (Auto) 0.7 H Neut % (Auto) 69.8 Lymph % (Auto) 11.9 L [place] % (Auto) 10.2 H Eos % (Auto) 6.8 H Baso % (Auto) 0.6 Lymph # (Auto) 1.30 [place] # (Auto) 1.1 H Eos # (Auto) 0.7 H Baso # (Auto) 0.1 Abs Immat Gran (auto) 0.08 H Absolute Neuts (auto) 7.6 H Absolute Nucleated RBC 0.000 Nucleated RBC % 0.0 Sodium 133 L Potassium 4.0 Chloride 98 Carbon Dioxide 31 H Anion Gap 4 BUN 7 Creatinine 0.65 L Estim Creat Clear Calc 54 Estimated GFR > 60 Glucose 98 Calcium 8.6 Magnesium 1.8 Total Bilirubin 0.3 AST 23 ALT 9 Alkaline Phosphatase 54 Total Protein 6.4 Albumin 3.2 L Quality VTE Prophylaxis VTE prophylaxis: mechanical ordered
[2025-04-26] MEDS: ATORVASTATIN 40 MG TABLET PO (17:23)
[2025-04-26] MEDS: SACCHAROMYCES BOULARDII 250 MG CAPSULE PO (17:23)
[2025-04-26] MEDS: ARTIFICIAL TEARS OPHTH SOLN 15 ML BOTTLE 1 DROP EACH EYE (17:23)
[2025-04-26] MEDS: FLUTICASONE PROPIONATE 0.05% NA SPR 16 GM BTL (*BKC) 1 SPRAY NASAL (22:22)
[2025-04-27] VITALS (9 sets, daily range): BP systolic 110–117; BP diastolic 45–60; PULSE 71–92; RESP 16–20; TEMP 36.6–36.8; O2SAT 90–95
[2025-04-27] MEDS: ACETAMINOPHEN 325 MG TABLET 650 MG PO ×3 (03:43→21:04)
[2025-04-27] MEDS: PIPERACILLIN/TAZOBACTAM SOD 3.375 GM in SODIUM CHLORIDE 0.9% IV 50 ML 100 ML IVPB ×3 (03:55→21:38)
[2025-04-27 05:40] LABS: Hematocrit 26.0 % (37.0-47.0); Hemoglobin 7.8 g/dL (12.0-15.0); Immature Granulocyte Percent A 2.2 % (0-0.5); Lymphocytes Absolute Auto 2.05 K/mm3 (0.9-3.2); Mean Corpuscular HGB Conc 30.0 g/dl (32-36); Mean Corpuscular Hemoglobin 29.8 pg (26-34); Mean Corpuscular Volume 99.2 fl (80-100); Nucleated Red Blood Cells Absolute Auto 0.000 K/mm3 (0.0-0.012); Nucleated Red Blood Cells Perc 0.0 % (0.0-0.2); Platelet Count Result 365 k/mm3 (150-375); Red Blood Count 2.62 M/mm3 (4.2-5.4); White Blood Count 12.1 K/mm3 (4.5-10.0)
[2025-04-27 06:02] LABS: Alanine Aminotransferase 11 U/L (6-35); Albumin Level 3.0 g/dL (3.5-5.1); Alkaline Phosphatase 47 U/L (38-126); Anion Gap 8 mmol/L (4-12); Aspartate Amino Transferase 26 U/L (14-36); Bilirubin,Total 0.2 mg/dL (0.2-1.3); Blood Urea Nitrogen 8 mg/dL (7-17); Calcium 8.9 mg/dL (8.4-10.2); Carbon Dioxide 31 mmol/L (22-30); Chloride 100 mmol/L (98-107); Estimated CRCL calculation 47 ml/min; Estimated Glomerular Filt Rate > 60; Glucose 114 mg/dL (65-110); Magnesium 1.6 mg/dL (1.6-2.3); Potassium 3.8 mmol/L (3.4-5.0); Sodium 139 mmol/L (137-145); Total Protein 6.1 g/dL (6.3-8.2)
[2025-04-27] MEDS: metroNIDAZOLE 500 MG/ISO 100ML 500 MG/100 ML BAG 100 MG IVPB ×3 (06:18→21:05)
[2025-04-27] MEDS: UMECLIDINIUM/VILANTEROL 62.5-25 MCG ELLIPTA 1 PUFF INHALATION (07:16)
[2025-04-27] MEDS: BUDESONIDE RESPULE NEB 0.5 MG/2 ML AMP INHALATION ×2 (07:16→21:06)
[2025-04-27] MEDS: FOLIC ACID 1 MG TABLET PO (09:16)
[2025-04-27] MEDS: ASCORBIC ACID 500 MG TABLET PO ×2 (09:16→16:32)
[2025-04-27] MEDS: CYANOCOBALAMIN 500 MCG TABLET PO (09:16)
[2025-04-27] MEDS: APIXABAN 2.5 MG TABLET PO ×2 (09:16→21:05)
[2025-04-27] MEDS: LORATADINE 10 MG TABLET PO (09:16)
[2025-04-27] MEDS: PREGABALIN (*CRX) 75 MG CAPSULE 150 MG PO ×2 (09:16→16:33)
[2025-04-27] MEDS: CHOLECALCIFEROL (VITAMIN D3) 25 MCG (1,000 UNITS) TABLET PO (09:17)
[2025-04-27] MEDS: FERROUS SULFATE 325 MG TABLET DR BY MOUTH (09:17)
[2025-04-27] MEDS: LIPASE/AMYLASE/PROTEASE 12,000 UNITS CAP 4 CAP PO ×3 (09:17→16:32)
[2025-04-27] MEDS: SACCHAROMYCES BOULARDII 250 MG CAPSULE PO ×3 (09:17→16:33)
[2025-04-27] MEDS: CALCIUM CARBONATE (TUMS) 500 MG (200 MG ELEMENTAL) PO ×2 (09:17→16:32)
[2025-04-27] MEDS: ARTIFICIAL TEARS OPHTH SOLN 15 ML BOTTLE 1 DROP EACH EYE ×2 (09:17→16:32)
[2025-04-27] MEDS: FLUTICASONE PROPIONATE 0.05% NA SPR 16 GM BTL (*BKC) 1 SPRAY NASAL ×2 (09:26→21:07)
[2025-04-27] MEDS: MUPIROCIN 2% OINT 22 GM TUBE 1 APPLIC EACH NARE ×2 (09:27→21:17)
[2025-04-27] MEDS: DICLOFENAC SODIUM 1% 100 GM GEL (*BKC) 1 APPLIC TOPICAL ×4 (09:28→21:06)
[2025-04-27] MEDS: PIPERACILLIN/TAZOBACTAM SOD 3.375 GM in SODIUM CHLORIDE 0.9% IV 50 ML IVPB (09:46)
[2025-04-27] MEDS: LOPERAMIDE HCL 2 MG CAPSULE PO (10:01)
[2025-04-27] MEDS: ONDANSETRON INJ 4 MG/2 ML VIAL IV PUSH ×2 (10:02→21:47)
--- NOTE | 2025-04-27 11:41 | P.PNGS_ITS ---
Progress Note: A&P Assessment and Plan (1) Diverticular disease of intestine with perforation and abscess: Code(s): K57.80 - Diverticulitis of intestine, part unspecified, with perforation and abscess without bleeding Status: Acute Assessment and Plan: * Continue low fiber diet for 2 weeks * OK to discharge from surgical standpoint * F/u with Dr. Hopkins in office in 2 weeks (2) Pneumonia: Qualifiers: Laterality: bilateral Lung location: lower lobe of lung Pneumonia type: due to unspecified organism Qualified Code(s): J18.9 - Pneumonia, unspecified organism Code(s): J18.9 - Pneumonia, unspecified organism Status: Acute Assessment and Plan: Continue per Hospitalist Subjective Subjective Date/Time Seen: 04/27/25 11:41 Interval history: No significant abdominal pain. Occasional nausea after eating. Bowels moving. Exam GI: Inspection: non-distended GI Palp: Yes Soft to palpation, Yes Tenderness to palpation present (GI) (minimal LLQ) and No Guarding due to palpation present (GI) Percussion: Yes normal to percussion Auscultation: normal bowel sounds Objective Data Vital Signs Vital Signs: Vital Signs - 24 hr 04/26/25 14:00 04/26/25 20:00 04/26/25 20:31 Temperature 97.9 F 98.0 F Pulse Rate 97 85 Respiratory Rate 16 18 Blood Pressure 117/61 101/58 L Pulse Oximetry 92 94 90 Oxygen Delivery Nasal Cannula Oxygen Flow Rate 1 Fraction of Inspired Oxygen 04/26/25 20:38 04/26/25 20:38 04/26/25 20:47 Temperature Pulse Rate 85 85 Respiratory Rate 18 18 Blood Pressure Pulse Oximetry 92 Oxygen Delivery Nasal Cannula Oxygen Flow Rate 1 Fraction of Inspired Oxygen 04/27/25 06:00 04/27/25 07:19 04/27/25 07:19 Temperature 98.2 F Pulse Rate 71 74 Respiratory Rate 20 16 Blood Pressure 110/60 Pulse Oximetry 93 93 Oxygen Delivery Nasal Cannula Oxygen Flow Rate 2 Fraction of Inspired Oxygen 04/27/25 07:28 04/27/25 08:00 Temperature Pulse Rate 84 Respiratory Rate 16 Blood Pressure Pulse Oximetry 95 Oxygen Delivery Nasal Cannula Oxygen Flow Rate 80 Fraction of Inspired Oxygen 24 Intake/Output Intake/Output: Intake & Output 04/24/25 04/25/25 04/26/25 04/27/25 23:59 23:59 23:59 23:59 Intake Total 1520 1730 1845 440 Output Total 200 1700 1150 350 Balance 1320 30 695 90 Meds/Results Medications: Active Medications Generic Name Dose Route Start Last Admin Trade Name Freq PRN Reason Stop Dose Admin Acetaminophen 650 mg 04/19/25 00:05 04/19/25 00:29 Acetaminophen 650 Mg Suppository RECTAL 650 mg Q6H PRN Administration Mild Pain (1-3) or Fever Acetaminophen 650 mg 04/19/25 08:34 04/27/25 09:43 Acetaminophen 325 Mg Tablet PO 650 mg Q6H PRN Administration Mild Pain (Scale Score 1-4) Albuterol 2.5 mg 04/20/25 11:28 Albuterol Sulfate Neb 2.5 Mg/3 Ml Inh INHALATION QIDRT PRN Shortness Of Breath Albuterol/Ipratropium 3 ml 04/19/25 08:34 04/25/25 08:05 Ipratropium 0.5 Mg/Albuterol Sulfate 2.5 Mg Ampul.Neb 3 Ml INHALATION 3 ml Q6HRT PRN Administration Shortness Of Breath Lipase/Protease/Amylase 4 cap 04/19/25 09:00 04/27/25 09:17 Lipase/Amylase/Protease 12,000 Units Cap PO 4 cap TID DOC Administration Apixaban 2.5 mg 04/19/25 09:00 04/27/25 09:16 Apixaban 2.5 Mg Tablet PO 2.5 mg Q12HR DOC Administration Artificial Tears 1 drop 04/20/25 17:00 04/27/25 09:17 Artificial Tears Ophth Soln 15 Ml Bottle EACH EYE 1 drop BID DOC Administration Ascorbic Acid 500 mg 04/20/25 17:00 04/27/25 09:16 Ascorbic Acid 500 Mg Tablet PO 500 mg BID DOC Administration Atorvastatin Calcium 40 mg 04/19/25 18:00 04/26/25 17:23 Atorvastatin 40 Mg Tablet PO 40 mg QPM DOC Administration Baclofen 10 mg 04/20/25 11:28 04/25/25 21:13 Baclofen 10 Mg Tablet PO 10 mg Q6H PRN Administration moderate pain Budesonide 0.5 mg 04/19/25 08:45 04/27/25 07:16 Budesonide Respule Neb 0.5 Mg/2 Ml Amp INHALATION 0.5 mg Q12HRT DOC Administration Bupropion HCl 75 mg 04/21/25 09:00 04/27/25 09:17 Bupropion Hcl 75 Mg Tablet PO 75 mg DAILY DOC Administration Calcium Carbonate 200 mg 04/21/25 17:00 04/27/25 09:17 Calcium Carbonate (Tums) 500 Mg (200 Mg Elemental) PO 200 mg BID DOC Administration Cyanocobalamin 500 mcg 04/21/25 09:00 04/27/25 09:16 Cyanocobalamin 500 Mcg Tablet PO 500 mcg DAILY DOC Administration Diclofenac Sodium 1 applic 04/20/25 13:00 04/27/25 09:28 Diclofenac Sodium 1% 100 Gm Gel (*Bkc) TOPICAL 1 applic QID DOC Administration Ferrous Sulfate 325 mg 04/21/25 09:00 04/27/25 09:17 Ferrous Sulfate [address] BY MOUTH 325 mg DAILY DOC Administration Fluticasone Propionate 1 spray 04/20/25 21:00 04/27/25 09:26 Fluticasone Propionate 0.05% Na Spr 16 Gm Btl (*Bkc) NASAL 1 spray Q12HR DOC Administration Folic Acid 1 mg 04/21/25 09:00 04/27/25 09:16 Folic Acid 1 Mg Tablet PO 1 mg DAILY DOC Administration Hydrocortisone 1 applic 04/19/25 08:34 04/22/25 18:42 Hydrocortisone 2.5% Cream 30 Gm Tube TOPICAL 1 applic QID PRN Administration Itching Metronidazole 500 mg in 100 mls @ 100 mls/hr 04/23/25 14:00 04/27/25 07:15 Flagyl 500 Mg/Iso Soln 100 Ml IVPB Infused Q8HR DOC Infusion Piperacillin Sod/Tazobactam 50 mls @ 100 mls/hr 04/23/25 16:00 04/27/25 09:46 Sod 3.375 gm/ Sodium Chloride IVPB 3.3 mls/hr Q6H DOC Administration Loperamide HCl 2 mg 04/19/25 18:03 04/27/25 10:01 Loperamide Hcl 2 Mg Capsule PO 2 mg PRN PRN Administration Diarrhea Loratadine 10 mg 04/21/25 09:00 04/27/25 09:16 Loratadine 10 Mg Tablet PO 10 mg QAM DOC Administration Mupirocin 1 applic 04/23/25 14:00 04/27/25 09:27 Mupirocin 2% Oint 22 Gm Tube EACH NARE 04/27/25 21:01 1 applic Q12HR DOC Administration Naloxone HCl 0.4 mg 04/18/25 16:30 Naloxone Hcl 0.4 Mg/Ml Vial IV PUSH Q5MIN PRN Overdose Ondansetron HCl 4 mg 04/20/25 08:59 04/27/25 10:02 Ondansetron Inj 4 Mg/2 Ml Vial IV PUSH 4 mg Q6H PRN Administration Nausea And Vomiting Pregabalin 150 mg 04/20/25 17:00 04/27/25 09:16 Pregabalin (*Crx) 75 Mg Capsule PO 150 mg BID DOC Administration Prochlorperazine Edisylate 10 mg 04/21/25 10:14 04/26/25 18:42 Prochlorperazine Edisylate 10 Mg/2 Ml Vial IV PUSH 10 mg Q6H PRN Administration Nausea And Vomiting Saccharomyces Boulardii 250 mg 04/26/25 17:00 04/27/25 09:17 Saccharomyces Boulardii 250 Mg Capsule PO 250 mg TID DOC Administration Sodium Chloride 20 ml 04/18/25 15:29 Central Line Flush IV PUSH PRN PRN after blood draws Sodium Chloride 20 ml 04/18/25 19:04 04/19/25 05:13 Central Line Flush IV PUSH 20 ml PRN PRN Administration after blood draws Umeclidinium/Vilanterol 1 puff 04/19/25 08:45 04/27/25 07:16 Umeclidinium/Vilanterol 62.5-25 Mcg Ellipta INHALATION 1 puff DAILYRT DOC Administration Vitamin D 25 mcg 04/21/25 09:00 04/27/25 09:17 Cholecalciferol (Vitamin D3) 25 Mcg (1,000 Units) Tablet PO 25 mcg DAILY DOC Administration Radiology Results: ITS Impressions Chest CT 04/18/25 14:28 IMPRESSION: 1. Fibrotic changes with possible superimposed pneumonia in the lingula. 2. Pneumonia in the left lower lobe. 3. Fibrotic changes in the right upper lobe with superimposed infection is not excluded. 4. Prominent pulmonary artery suggestive of pulmonary hypertension. 5. Narrowing of the main bronchi which may indicate bronchomalacia. 6. Right adrenal adenoma unchanged. Head CT 04/18/25 18:15 IMPRESSION: No acute intracranial process. Chest X-Ray 04/23/25 09:54 Impression: 1: Stable chest. Chronic interstitial lung disease with superimposed consolidation particularly in the right upper and left lower lobe. Cannot exclude superimposed atypical pneumonia. Abdomen/Pelvis CT 04/23/25 13:18 IMPRESSION: 1. Acute sigmoid diverticulitis with probable small peridiverticular abscess measuring 1.9 x 0.8 cm. 2: Patchy bibasilar airspace consolidation, consistent with pneumonia. Labs Labs: Laboratory Results - last 24 hr 04/27/25 05:26 WBC 12.1 H RBC 2.62 L Hgb 7.8 L Hct 26.0 L MCV 99.2 MCH 29.8 MCHC 30.0 L RDW 14.0 Plt Count 365 MPV 11.0 H Immature Gran % (Auto) 2.2 H Neut % (Auto) 61.6 Lymph % (Auto) 16.9 L [place] % (Auto) 11.4 H Eos % (Auto) 7.0 H Baso % (Auto) 0.9 Lymph # (Auto) 2.05 [place] # (Auto) 1.4 H Eos # (Auto) 0.9 H Baso # (Auto) 0.1 Abs Immat Gran (auto) 0.27 H Absolute Neuts (auto) 7.4 H Absolute Nucleated RBC 0.000 Nucleated RBC % 0.0 Sodium 139 Potassium 3.8 Chloride 100 Carbon Dioxide 31 H Anion Gap 8 BUN 8 Creatinine 0.76 Estim Creat Clear Calc 47 Estimated GFR > 60 Glucose 114 H Calcium 8.9 Magnesium 1.6 Total Bilirubin 0.2 AST 26 ALT 11 Alkaline Phosphatase 47 Total Protein 6.1 L Albumin 3.0 L
--- NOTE | 2025-04-27 12:31 | P.DS_ITS ---
DS: Admitting Diagnosis Discharge Date 04/27/25 Admitting Diagnosis Altered mental status DS: Discharge Diagnosis Discharge Diagnosis (1) Diverticular disease of intestine with perforation and abscess: Code(s): K57.80 - Diverticulitis of intestine, part unspecified, with perforation and abscess without bleeding Status: Acute DS: Summary Hospital Course Hospital Course: 80-year-old female presents the hospital with altered mental status from a assisted. In the ED the patient was only responsive to painful stimuli. The family had stated that the patient has overdosed before of opioids at the assisted. Narcan was tried and the patient was awake however she remains severely hypotensive. A central line was placed and she was placed on pressors. Family is concerned that maybe she got too many narcotics overnight as she kept complaining that she could sleep because of her roommate. Patient was originally placed in the nursing from the age of 65 for abusing her pills and the family wanted someone to be able could control her medications. Code status is no intubation, no CPR, okay for central line and vasopressors Patient was managed for pneumonia and acute on chronic respiratory failure, completed Levaquin and weaned to baseline oxygen. However, also managed for Diverticulitis with abscess,/ Patinet was started oN ZOsyn adn Flagyl, Gen surgry was consulted and reocmmended antibiotics therapy, no surgical intervention indicated. Patient discharged to SNF on 10 more days of Augmentin F/u wtih PCP in 3 - 5 days F/u with Gen surgery as instructed Time Spent with Patient Time attestation: Total time spent providing and/or coordinating discharge services: DS: Data Data Completed and Pending Labs on day of discharge: Labs from last 24 hours 04/27/25 05:26 WBC 12.1 H RBC 2.62 L Hgb 7.8 L Hct 26.0 L MCV 99.2 MCH 29.8 MCHC 30.0 L RDW 14.0 Plt Count 365 MPV 11.0 H Immature Gran % (Auto) 2.2 H Neut % (Auto) 61.6 Lymph % (Auto) 16.[address] [place] % (Auto) 11.4 H Eos % (Auto) 7.0 H Baso % (Auto) 0.9 Lymph # (Auto) 2.05 [place] # (Auto) 1.4 H Eos # (Auto) 0.9 H Baso # (Auto) 0.1 Abs Immat Gran (auto) 0.27 H Absolute Neuts (auto) 7.4 H Absolute Nucleated RBC 0.000 Nucleated RBC % 0.0 Sodium 139 Potassium 3.8 Chloride 100 Carbon Dioxide 31 H Anion Gap 8 BUN 8 Creatinine 0.76 Estim Creat Clear Calc 47 Estimated GFR > 60 Glucose 114 H Calcium 8.9 Magnesium 1.6 Total Bilirubin 0.2 AST 26 ALT 11 Alkaline Phosphatase 47 Total Protein 6.1 L Albumin 3.0 L Preliminary micro results at discharge 04/23/25 14:57 Blood Culture - Preliminary Blood 04/23/25 14:48 Blood Culture - Preliminary Blood Discharge Plan Discharge Attending physician on discharge: Felisha Verde Consulting providers: Wang Kaplan; Abbey Nelson; David Hopkins Discharging Clinician: Felisha Verde Anticipated Discharge Date/Time: 04/27/25 12:27 Patient Disposition: SNF Activity: as tolerated Diet: low fiber Discharge Instructions: Patient may discharge home on low-fiber diet for the next 4 weeks. At that time switch over to a high-fiber diet. Discharge home on oral antibiotics, Augmentin 875mg p.o. b.i.d. for 2 week course of oral antibiotic therapy at home. Prescription written. Patient to follow-up see me in the office in 2 to 3 weeks. Patient to call office for appointment. Patient Instructions: Apixaban (By mouth), Heart Failure (DC), Safe Use of Anticoagulants (DC) Patient Language: Romanian Stand Alone Forms: General Discharge Information Follow-up/Referrals: Mariano Walker MD [Primary Care Provider] - (F/u main [facility] PCP in 3-5 days ) David Hopkins MD [Physician] - (Patient to call Dr. Hopkins's office for follow- up appointment in 2 weeks after discharge. Patient to call [phone].) Discharge Medications: New Saccharomyces boulardii [Florastor] 250 mg Capsule 250 mg PO TID 14 Days Qty: 42 0RF amoxicillin-pot clavulanate 875-125 mg tablet 1 tablet PO Q12H Qty: 10 0RF Continued pregabalin [Lyrica] 150 mg capsule 150 mg PO BID Qty: 60 3RF guaifenesin 600 mg tablet extended release 12hr 600 mg PO BID bupropion HCl 75 mg tablet 75 mg PO DAILY Eliquis 2.5 mg tablet 2.5 mg PO BID Fleet Enema 19-7 gram/118 mL enema 118 ml RECTAL ONCE PRN (Reason: Constipation) furosemide 40 mg tablet 40 mg PO QAM albuterol sulfate 2.5 mg /3 mL (0.083 %) solution for nebulization 2.5 mg inhalation QID PRN (Reason: SOB) azelastine 137 mcg (0.1 %) spray,non-aerosol 137 mcg intranasal BID omega 4-mtj-xbe-fish oil [Fish Oil] 1,000 mg (120 mg-180 mg) capsule 1 cap PO DAILY carvedilol [Coreg] 3.125 mg Tablet 3.125 mg PO BID acetaminophen 650 mg Tablet Extended Release 650 mg PO Q6H PRN (Reason: Mild Pain (Scale Score 1-4)) magnesium hydroxide [Milk of Magnesia] 400 mg/5 mL Suspension 400 mg PO Q72H PRN (Reason: Constipation) ondansetron 4 mg Tablet,Disintegrating 4 mg PO Q6H PRN (Reason: nausea and vomitting) trazodone 300 mg tablet 50 mg PO HS umeclidinium-vilanterol [Anoro Ellipta] 62.5-25 mcg/actuation blister with device 1 inh INHALATION DAILY Eucerin Intensive Repair Lotion 1 ea TOPICAL DAILY Rx Instructions: general dry skin loperamide 2 mg Capsule 2 mg PO Q12H PRN (Reason: Diarrhea) cholecalciferol (vitamin D3) 25 mcg (1,000 unit) Tablet 25 mcg PO DAILY ipratropium-albuterol 0.5 mg-3 mg(2.5 mg base)/3 mL Solution For Nebulization 3 ml INHALATION Q6H PRN (Reason: SOB) hydrocortisone 2.5 % Cream 1 applic TOPICAL QID PRN (Reason: Itching) Patient Comments: psoriasis Rx Instructions: affected areas Creon 24,000-76,000 -120,000 unit Capsule,Delayed Release(Dr/Ec) 2 cap PO TID Rx Instructions: administer with meals and/or snacks artificial tears solution Drops 1 drp OPHTHALMIC (EYE) BID atorvastatin 40 mg tablet 40 mg PO QPM diclofenac sodium 50 mg tablet,delayed release (DR/EC) 50 mg PO Q12H hydrocodone-acetaminophen 10-325 mg tablet 1 tablet PO QID ascorbic acid (vitamin C) 500 mg tablet 500 mg PO BID bisacodyl 10 mg suppository 10 mg RECTAL DAILY PRN (Reason: constipation) magnesium citrate [Citroma] Solution 296 ml PO DAILY PRN (Reason: constipation) diclofenac sodium [Arthritis Pain (diclofenac)] 1 % gel 4.5 inch topical QID Rx Instructions: apply to single elbow, wrist or hand; for hand includes palm/fingers/back of hand cyanocobalamin (vitamin B-12) [B-12 DOTS] 500 mcg tablet 500 mcg PO DAILY fexofenadine [Lea Allergy] 180 mg tablet 180 mg PO DAILY multivitamin [Daily Multi-Vitamin] Tablet 1 tablet PO DAILY senna 8.6 mg capsule 8.6 mg PO BID Trexall 7.5 mg tablet 7.5 mg PO WEEKLY Patient Comments: To be given on Fridays triamcinolone acetonide 0.1 % cream 1 applic TOPICAL BID polyethylene glycol 3350 [Miralax] 17 gram Powder In Packet 17 g PO QAM PRN (Reason: Constipation) Qty: 30 0RF budesonide [Pulmicort] 0.5 mg/2 mL Suspension For Nebulization 0.5 mg inhalation Q12HRT Qty: 30 0RF fluticasone propionate 50 mcg/actuation Avery,Suspension 1 spray intranasal Q12HR Qty: 30 0RF moxifloxacin 400 mg tablet 400 mg PO DAILY bisacodyl 5 mg tablet,delayed release (DR/EC) 10 mg PO DAILY baclofen 10 mg tablet 10 mg PO Q6H PRN (Reason: moderate pain) folic acid 1 mg tablet 1 mg PO DAILY Qty: 90 2RF Discontinued ferrous sulfate 325 mg (65 mg iron) tablet 325 mg PO DAILY Date of admission: 04/18/25 15:57 Primary Care Provider: Mariano Walker Admitting Provider: Edna Velasco Attending physician on admission: Edna Velasco Condition: Guarded Prognosis
[2025-04-27] MEDS: PROCHLORPERAZINE EDISYLATE 10 MG/2 ML VIAL IV PUSH (14:18)
[2025-04-27] MEDS: ATORVASTATIN 40 MG TABLET PO (17:00)
[2025-04-27] MEDS: BACLOFEN 10 MG TABLET PO (21:05)
[2025-04-27] MEDS: HYDROCORTISONE 2.5% CREAM 30 GM TUBE 1 APPLIC TOPICAL (21:07)
[2025-04-28] MEDS: PIPERACILLIN/TAZOBACTAM SOD 3.375 GM in SODIUM CHLORIDE 0.9% IV 50 ML 100 ML IVPB ×2 (04:46→09:07)
[2025-04-28] MEDS: metroNIDAZOLE 500 MG/ISO 100ML 500 MG/100 ML BAG 100 MG IVPB ×2 (04:58→13:04)
[2025-04-28 06:00] VITALS: BP 120/69; PULSE 76; RESP 20; TEMP 36.4; O2SAT 94
[2025-04-28] MEDS: UMECLIDINIUM/VILANTEROL 62.5-25 MCG ELLIPTA 1 PUFF INHALATION (08:13)
[2025-04-28] MEDS: BUDESONIDE RESPULE NEB 0.5 MG/2 ML AMP INHALATION (08:13)
[2025-04-28 08:16] VITALS: PULSE 76; RESP 20; O2SAT 92
[2025-04-28] MEDS: LORATADINE 10 MG TABLET PO (08:25)
[2025-04-28 08:27] VITALS: O2SAT 95
[2025-04-28] MEDS: CYANOCOBALAMIN 500 MCG TABLET PO (08:27)
[2025-04-28] MEDS: FOLIC ACID 1 MG TABLET PO (08:27)
[2025-04-28] MEDS: SACCHAROMYCES BOULARDII 250 MG CAPSULE PO ×2 (08:27→12:47)
[2025-04-28] MEDS: CALCIUM CARBONATE (TUMS) 500 MG (200 MG ELEMENTAL) PO (08:27)
[2025-04-28] MEDS: FERROUS SULFATE 325 MG TABLET DR BY MOUTH (08:27)
[2025-04-28] MEDS: CHOLECALCIFEROL (VITAMIN D3) 25 MCG (1,000 UNITS) TABLET PO (08:27)
[2025-04-28] MEDS: LIPASE/AMYLASE/PROTEASE 12,000 UNITS CAP 4 CAP PO ×2 (08:27→12:47)
[2025-04-28] MEDS: ASCORBIC ACID 500 MG TABLET PO (08:27)
[2025-04-28 08:28] VITALS: PULSE 76; RESP 20
[2025-04-28] MEDS: APIXABAN 2.5 MG TABLET PO (08:28)
[2025-04-28] MEDS: ARTIFICIAL TEARS OPHTH SOLN 15 ML BOTTLE 1 DROP EACH EYE (08:28)
[2025-04-28] MEDS: PREGABALIN (*CRX) 75 MG CAPSULE 150 MG PO (08:28)
[2025-04-28] MEDS: FLUTICASONE PROPIONATE 0.05% NA SPR 16 GM BTL (*BKC) 1 SPRAY NASAL (08:29)
[2025-04-28] MEDS: DICLOFENAC SODIUM 1% 100 GM GEL (*BKC) 1 APPLIC TOPICAL ×2 (08:30→12:47)
--- NOTE | 2025-04-28 10:47 | P.DS_ITS ---
DS: Admitting Diagnosis Discharge Date 04/28/25 Admitting Diagnosis Altered mental status DS: Discharge Diagnosis Discharge Diagnosis (1) Diverticular disease of intestine with perforation and abscess: Code(s): K57.80 - Diverticulitis of intestine, part unspecified, with perforation and abscess without bleeding Status: Acute DS: Summary Hospital Course Hospital Course: 80-year-old female presents the hospital with altered mental status from a senior living. In the ED the patient was only responsive to painful stimuli. The family had stated that the patient has overdosed before of opioids at the senior living. Narcan was tried and the patient was awake however she remains severely hypotensive. A central line was placed and she was placed on pressors. Family is concerned that maybe she got too many narcotics overnight as she kept complaining that she could sleep because of her roommate. Patient was originally placed in the nursing from the age of 65 for abusing her pills and the family wanted someone to be able could control her medications. Code status is no intubation, no CPR, okay for central line and vasopressors Patient was managed for pneumonia and acute on chronic respiratory failure, completed Levaquin and weaned to baseline oxygen. However, also managed for Diverticulitis with abscess,/ Patinet was started oN ZOsyn adn Flagyl, Gen surgry was consulted and reocmmended antibiotics therapy, no surgical intervention indicated. Patient discharged to SNF on 10 more days of Augmentin Patietn also managed for Iron deficiency anemia and received 1000mg of IV iron adn Po iron dicontinued. F/u wtih PCP in 3 - 5 days F/u with Gen surgery as instructed Time Spent with Patient Time attestation: Total time spent providing and/or coordinating discharge services: DS: Data Data Completed and Pending Labs on day of discharge: Preliminary micro results at discharge 04/23/25 14:57 Blood Culture - Preliminary Blood 04/23/25 14:48 Blood Culture - Preliminary Blood Discharge Plan Discharge Attending physician on discharge: Felisha Verde Consulting providers: Wang Kaplan; Abbey Nelson; David Hopkins Discharging Clinician: Felisha Verde Anticipated Discharge Date/Time: 04/27/25 12:27 Patient Disposition: SNF Activity: as tolerated Diet: low fiber Discharge Instructions: Patient may discharge home on low-fiber diet for the next 4 weeks. At that time switch over to a high-fiber diet. Discharge home on oral antibiotics, Augmentin 875mg p.o. b.i.d. for 2 week course of oral antibiotic therapy at home. Prescription written. Patient to follow-up see me in the office in 2 to 3 weeks. Patient to call office for appointment. Patient Instructions: Apixaban (By mouth), Heart Failure (DC), Safe Use of Anticoagulants (DC) Patient Language: Ukrainian Stand Alone Forms: General Discharge Information Follow-up/Referrals: Mariano Walker MD [Primary Care Provider] - (F/u wtih PCP in 3-5 days ) David Hopkins MD [Physician] - (Patient to call Dr. Hopkins's office for follow- up appointment in 2 weeks after discharge. Patient to call [phone].) Discharge Medications: New Saccharomyces boulardii [Florastor] 250 mg Capsule 250 mg PO TID 14 Days Qty: 42 0RF amoxicillin-pot clavulanate 875-125 mg tablet 1 tablet PO Q12H Qty: 10 0RF Continued pregabalin [Lyrica] 150 mg capsule 150 mg PO BID Qty: 60 3RF guaifenesin 600 mg tablet extended release 12hr 600 mg PO BID bupropion HCl 75 mg tablet 75 mg PO DAILY Eliquis 2.5 mg tablet 2.5 mg PO BID Fleet Enema 19-7 gram/118 mL enema 118 ml RECTAL ONCE PRN (Reason: Constipation) furosemide 40 mg tablet 40 mg PO QAM albuterol sulfate 2.5 mg /3 mL (0.083 %) solution for nebulization 2.5 mg inhalation QID PRN (Reason: SOB) azelastine 137 mcg (0.1 %) spray,non-aerosol 137 mcg intranasal BID omega 0-iag-unq-fish oil [Fish Oil] 1,000 mg (120 mg-180 mg) capsule 1 cap PO DAILY carvedilol [Coreg] 3.125 mg Tablet 3.125 mg PO BID acetaminophen 650 mg Tablet Extended Release 650 mg PO Q6H PRN (Reason: Mild Pain (Scale Score 1-4)) magnesium hydroxide [Milk of Magnesia] 400 mg/5 mL Suspension 400 mg PO Q72H PRN (Reason: Constipation) ondansetron 4 mg Tablet,Disintegrating 4 mg PO Q6H PRN (Reason: nausea and vomitting) trazodone 300 mg tablet 50 mg PO HS umeclidinium-vilanterol [Anoro Ellipta] 62.5-25 mcg/actuation blister with device 1 inh INHALATION DAILY Eucerin Intensive Repair Lotion 1 ea TOPICAL DAILY Rx Instructions: general dry skin loperamide 2 mg Capsule 2 mg PO Q12H PRN (Reason: Diarrhea) cholecalciferol (vitamin D3) 25 mcg (1,000 unit) Tablet 25 mcg PO DAILY ipratropium-albuterol 0.5 mg-3 mg(2.5 mg base)/3 mL Solution For Nebulization 3 ml INHALATION Q6H PRN (Reason: SOB) hydrocortisone 2.5 % Cream 1 applic TOPICAL QID PRN (Reason: Itching) Patient Comments: psoriasis Rx Instructions: affected areas Creon 24,000-76,000 -120,000 unit Capsule,Delayed Release(Dr/Ec) 2 cap PO TID Rx Instructions: administer with meals and/or snacks artificial tears solution Drops 1 drp OPHTHALMIC (EYE) BID atorvastatin 40 mg tablet 40 mg PO QPM diclofenac sodium 50 mg tablet,delayed release (DR/EC) 50 mg PO Q12H hydrocodone-acetaminophen 10-325 mg tablet 1 tablet PO QID ascorbic acid (vitamin C) 500 mg tablet 500 mg PO BID bisacodyl 10 mg suppository 10 mg RECTAL DAILY PRN (Reason: constipation) magnesium citrate [Citroma] Solution 296 ml PO DAILY PRN (Reason: constipation) diclofenac sodium [Arthritis Pain (diclofenac)] 1 % gel 4.5 inch topical QID Rx Instructions: apply to single elbow, wrist or hand; for hand includes palm/fingers/back of hand cyanocobalamin (vitamin B-12) [B-12 DOTS] 500 mcg tablet 500 mcg PO DAILY fexofenadine [Lea Allergy] 180 mg tablet 180 mg PO DAILY multivitamin [Daily Multi-Vitamin] Tablet 1 tablet PO DAILY senna 8.6 mg capsule 8.6 mg PO BID Trexall 7.5 mg tablet 7.5 mg PO WEEKLY Patient Comments: To be given on Fridays triamcinolone acetonide 0.1 % cream 1 applic TOPICAL BID polyethylene glycol 3350 [Miralax] 17 gram Powder In Packet 17 g PO QAM PRN (Reason: Constipation) Qty: 30 0RF budesonide [Pulmicort] 0.5 mg/2 mL Suspension For Nebulization 0.5 mg inhalation Q12HRT Qty: 30 0RF fluticasone propionate 50 mcg/actuation Shubert,Suspension 1 spray intranasal Q12HR Qty: 30 0RF moxifloxacin 400 mg tablet 400 mg PO DAILY bisacodyl 5 mg tablet,delayed release (DR/EC) 10 mg PO DAILY baclofen 10 mg tablet 10 mg PO Q6H PRN (Reason: moderate pain) folic acid 1 mg tablet 1 mg PO DAILY Qty: 90 2RF Discontinued ferrous sulfate 325 mg (65 mg iron) tablet 325 mg PO DAILY Date of admission: 04/18/25 15:57 Primary Care Provider: Mariano Walker Admitting Provider: Edna Velasco Attending physician on admission: Edna Velasco Condition: Guarded Prognosis
[2025-04-28 13:38] VITALS: BP 126/61; PULSE 88; RESP 18; O2SAT 91
== END 2025-04-28 15:20 | DRG 871 ==
LOC: ANHED 15:56 → ANHICU 16:42 → ANHIMU 04-19 09:01 → ANH2MED 04-21 14:20
PROVIDERS: Internal Medicine; Nurse Practitioner Gerontology; Surgery; Admitting Provider Family Medicine; Emergency Provider Emergency Medicine; PCP Family Medicine; Visit Provider Internal Medicine
DX: A41.9 Sepsis, unspecified organism (principal); G93.41 Metabolic encephalopathy; J18.9 Pneumonia, unspecified organism; R65.21 Severe sepsis with septic shock; J96.22 Acute and chronic respiratory failure with hypercapnia; J69.0 Pneumonitis due to inhalation of food and vomit; J96.21 Acute and chronic respiratory failure with hypoxia; K57.20 Diverticulitis of large intestine with perforation and abscess without bleeding; J44.0 Chronic obstructive pulmonary disease with (acute) lower respiratory infection; I50.32 Chronic diastolic (congestive) heart failure; E87.1 Hypo-osmolality and hyponatremia; H57.02 Anisocoria; I27.21 Secondary pulmonary arterial hypertension; E78.5 Hyperlipidemia, unspecified; I11.0 Hypertensive heart disease with heart failure; K21.9 Gastro-esophageal reflux disease without esophagitis; F32.A Depression, unspecified; J43.9 Emphysema, unspecified; F41.9 Anxiety disorder, unspecified; D50.9 Iron deficiency anemia, unspecified; Z87.891 Personal history of nicotine dependence; R19.7 Diarrhea, unspecified; I73.9 Peripheral vascular disease, unspecified; Z86.711 Personal history of pulmonary embolism; Z79.01 Long term (current) use of anticoagulants; Z22.322 Carrier or suspected carrier of Methicillin resistant Staphylococcus aureus; Z99.81 Dependence on supplemental oxygen
CPT/HCPCS: 36415; 36556; 36600; 70450; 71045; 71250; 74177; 80048; 80053; 80202; 81003; 82375; 82728; 82805; 83050; 83540; 83550; 83605; 83690; 83735; 84100; 84484; 85018; 85025; 85027; 85610; 85730; 86140; 87040; 87493; 87637; 87641; 93005; 94002; 94003; 94640; 94660; 96365; 96375; 96376; 99291; A9270; C1751; J0613; J0780; J1756; J1836; J2185; J2312; J2405; J2543; J3373; J3475; J7030; J7050; J7120; Q9967

== ENCOUNTER 2025-05-05 15:23 | Outpatient (CLI) | payer MEDICARE, MEDICAID, SELFPAY ==
--- OUTSIDE RECORDS SUMMARY | 2025-05-05 15:28 | XMS_ITS | Clinical Summary ---
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 MEDICARE IDPA [facility] MEDIC[facility] ADVANTAGE [employer]PA Advance Directives For more information, please contact: [phone] Documents on File Type Date Recorded Patient Education Nurse Expl anation ADVANCE DIRECTIVE 02/09/2013 12:00 AM GREYSON Elizondo OF WATER SUPPLY TECHNICIAN FINANCIAL/MEDICAL Care Teams Hand Stripper Relationship Specialty Start Date End Date Mack Vanegas DO PCP - General Internal Medicine 03/07/19
--- OUTSIDE RECORDS SUMMARY | 2025-05-05 15:28 | XMS_ITS | Clinical Summary ---
Author Organization [facility] Address [address] [place] [address] Care Team Providers Care Petroleum Laboratory Technician Name Role Phone PastoradruMack montanez DO Primary Care Provider Source Comments [facility],non-owned Affiliates and Associated Physician Practices is amultiple site organization consisting of ambulatory clinics and hospital sitesin [place], [place], [place] and [place]. This disclosure is being madepursuant to the Care Everywhere program and may not contain all information available regarding this patient. Last updated 18.[employer] [facility] Allergies Active Allergy Reactions Criticality Noted Date [...] 40 MG tablet 11/05/2024 Active HYDROcodone-pool taminophen ([place]) 10-325 MG tablet 11/22/2024 Active albuterol-iprat ropium [...] Description 03/05/2025 1:00 PM CDT Office Visit 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 - Pulmonology [address] [place] [phone] Priyank Larsen MD [address] [facility] [address] [facility] [place] [address] Health Maintenance Due Date Last Done Comments [...] Additional history exists INFLUENZA VACCINE (#1) 2025 , 07/18/2022, 08/19/2021, Additional history exists DEPRESSION SCREENING [...] Procedure Name Priority Date/Time Associated Diagnosis Comments SC DRAIN INJ MAJOR JOINT BURSA W US Routine 03/05/2025 2:21 PM CDT Osteoarthritis of right glenohumeral joint from Last 3 Months Results * SC DRAIN INJ MAJOR JOINT BURSA W US (03/05/2025 2:21 PM CDT) Narrative Abiodun Garcia MD - 03/05/2025 2:21 PM CDT Aibodun Garcia MD 03/05/2025 4:20 PM U/S-GUIDED INJECTION [...] Result from Last 3 Months Insurance MEDICARE [facility] MEDICARE [facility] Care Teams Petroleum Laboratory Technician Relationship Specialty Start Date End Date Mack Vanegas DO [address] [place] [id number] PCP - General Internal Medicine 11/27/24
--- OUTSIDE RECORDS SUMMARY | 2025-05-05 15:28 | XMS_ITS | Referral Summary ---
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 Gender Identity Not on file Sexual Orientation [...] Plan of Treatment Not on file Insurance [facility] MEDICARE ADVANTAGE [facility] MEDICARE [employer] [facility] MEDICARE ADVANTAGE IDPA Advance Directives For more information, please contact: [phone] Documents on File Type Date Recorded Patient Cook Fishing Vessel Expl anation ADVANCE DIRECTIVE 02/09/2013 12:00 AM GREYSON Elizondo OF MACHINE II TRIMMER FINANCIAL/MEDICAL Care Teams Speech Language Pathologist Prn Relationship Specialty Start Date End Date Mack Vanegas DO PCP - General Internal Medicine 03/07/19
--- OUTSIDE RECORDS SUMMARY | 2025-05-05 15:28 | XMS_ITS | Encounter Summary ---
Author Organization [facility] Address [address] [place] [address] Care Team Providers Care Envelope Press Operator Name Role Phone Mack Vanegas DO Primary Care Provider +1- [phone] Encounter Details Date Type Department Care Team (Late st Contact Info) Description 02/10/2023 Telephone [facility] [address] [place] [id number] Hebert Og, RT Social History Tobacco Use Types Packs/Day Years Used Date Smoking Tobacco: Former Comments No Sex and Gender Information Value Date Recorded Sex Assigned at Not on file 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
[2025-05-05 19:11] LABS: Hematocrit 34.7 % (37.0-47.0); Hemoglobin 10.4 g/dL (12.0-15.0); Immature Granulocyte Percent A 0.6 % (0-0.5); Lymphocytes Absolute Auto 2.16 K/mm3 (0.9-3.2); Mean Corpuscular HGB Conc 30.0 g/dl (32-36); Mean Corpuscular Hemoglobin 30.1 pg (26-34); Mean Corpuscular Volume 100.3 fl (80-100); Nucleated Red Blood Cells Absolute Auto 0.000 K/mm3 (0.0-0.012); Nucleated Red Blood Cells Perc 0.0 % (0.0-0.2); Platelet Count Result 402 k/mm3 (150-375); Red Blood Count 3.46 M/mm3 (4.2-5.4); White Blood Count 12.4 K/mm3 (4.5-10.0)
[2025-05-05 19:17] LABS: Alanine Aminotransferase 14 U/L (6-35); Albumin Level 4.1 g/dL (3.5-5.1); Alkaline Phosphatase 62 U/L (38-126); Anion Gap 8 mmol/L (4-12); Aspartate Amino Transferase 44 U/L (14-36); Bilirubin,Total 0.5 mg/dL (0.2-1.3); Blood Urea Nitrogen 10 mg/dL (7-17); Calcium 8.8 mg/dL (8.4-10.2); Carbon Dioxide 32 mmol/L (22-30); Chloride 95 mmol/L (98-107); Estimated Glomerular Filt Rate 59; Glucose 97 mg/dL (65-110); Potassium 4.6 mmol/L (3.4-5.0); Sodium 135 mmol/L (137-145); Total Protein 8.3 g/dL (6.3-8.2)
== END 2025-05-05 15:24 | disposition home or self-care (01) ==
LOC: ANHGOSHLAB 15:24
PROVIDERS: PCP Family Medicine; Visit Provider Family Medicine
DX: R73.03 Prediabetes (principal); D64.9 Anemia, unspecified; R19.7 Diarrhea, unspecified
CPT/HCPCS: 36415; 80053; 85025

== ENCOUNTER 2025-06-11 13:05 | Inpatient (IN) | payer MEDICARE, MEDICAID, SELFPAY ==
[2025-06-11] VITALS (33 sets, daily range): BP systolic 74–130; BP diastolic 47–99; PULSE 72–135; RESP 13–25; TEMP 37–37.1; O2SAT 92–100; BMI 28.4
--- NOTE | ~2025-06-11 | CT_ITS ---
EXAMINATION: CT brain wo con DATE: 06/11/2025 17:15 INDICATION: Altered mental status TECHNIQUE: Computed tomography (CT) of the head was performed without intravenous contrast. The dose-length product was 681.00 mGy-cm. Automated exposure control and iterative reconstruction technique were employed. COMPARISON: CT dated 04/18/2025 FINDINGS: Generalized atrophy. There are scattered moderate periventricular and subcortical white matter changes, most likely related to small vessel ischemic disease (microangiopathy). No ventriculomegaly or midline shift. Basilar cisterns are patent. There is a chronic left cerebellar infarction. There is chronic left lacunar infarction. No acute infarction or intracranial hemorrhage. Paranasal sinuses and mastoids are pneumatized. No depressed skull fractures. IMPRESSION: 1. No acute intracranial abnormality. 2: Chronic left cerebellar and lacunar infarctions. Reviewed, dictated and finalized at location O.
--- NOTE | ~2025-06-11 | XR_ITS ---
MODIFIED ESOPHAGRAM HISTORY: Recurrent pneumonias TECHNIQUE: Modified barium esophagram was performed on 06/13/2025. I administered fluoroscopy and performed the exam with speech pathologist. Patient was seated for lateral fluoroscopic imaging for ingestion of thin liquids, pudding, solids and quantified amounts, followed by thin liquids in uncontrolled amounts. This was recorded on tape. A single fluoroscopic spot image was also recorded. The DAP for this procedure was 1.625 Gycm2. The amount of fluoroscopy time used during this procedure was 1.9 minutes. FINDINGS: Oral stage: Adequate function but with delayed oral prep solids secondary to absent dentition. Pharyngeal stage: Adequate function. Cervical/esophageal stage: Adequate function. IMPRESSION: Patient tolerated regular consistency oral feedings in the upright position. Please correlate with speech pathologist findings and specific feeding recommendations. Reviewed, dictated and finalized at location A. IMPRESSION: Patient tolerated regular consistency oral feedings in the upright position. Please correlate with speech pathologist findings and specific feedi ng recommendations.
--- NOTE | ~2025-06-11 | XR_ITS ---
XR chest 1V portable 06/11/2025 14:49 Indication: Shortness of breath Procedure: AP portable chest Comparison: Comparison to multiple prior studies sequentially, with oldest reviewed study dated 03/24/2025. Findings: Moderate cardiomegaly. There is multifocal bilateral airspace disease which appears chronic. Elevated right diaphragm. No pneumothorax. No acute osseous abnormality. Impression: 1: Chronic multifocal airspace disease, differential diagnosis includes chronic infection (e.G. atypical mycobacterial infection), organizing pneumonia and chronic inflammatory conditions such as sarcoidosis or vasculitis. Reviewed, dictated and finalized at location O. Impression: 1: Chronic multifocal airspace disease, differential diagnosis includes chronic infection (e.G. atypical mycobacterial infection), organizing pneumonia and ch ronic inflammatory conditions such as sarcoidosis or vasculitis.
--- NOTE | ~2025-06-11 | CT_ITS ---
EXAMINATION: CT chest abdomen pelvis w con DATE: 06/12/2025 17:32 CDT INDICATION: Leukocytosis. Diverticulitis. Sepsis. TECHNIQUE: Computed tomography (CT) of the chest, abdomen, and pelvis was performed with intravenous contrast. The dose-length product was 977.70 mGy-cm. COMPARISON: CT dated 04/23/2025 FINDINGS: CHEST CT: Heart size normal. No significant pleural or pericardial effusion. There is patchy consolidation of the lungs with peripheral coarse interstitial changes and groundglass opacities in the upper lobes. No significant pleural or pericardial effusion. There is interlobular septal thickening with mild bronc hiectasis of the lingula. No thoracic lymphadenopathy. No significant pleural or pericardial effusion. There is severe lower thoracic and lumbar spondylosis. There is osteoarthritis of the hips. There is scoliosis. ABDOMEN/PELVIS CT: Status post cholecystectomy with expected prominence of the bile ducts. There are calcified granulomas of the spleen. The pancreas, left adrenal gland are normal. Stable small 14 mm right adrenal nodule, likely benign adenoma. There are bilateral renal cysts. No significant vascular abnormality. There is thickening of the sigmoid colon with mild surrounding formation and possible small 12 mm peridiverticular abscess, image 209. Bladder unremarkable. Nonobstructive bowel pattern. IMPRESSION: 1. Bilateral patchy consolidation with coarse interstitial changes predominantly affecting the upper lobes. There is associated interlobular septal thickening and mild bronchiectasis of the lingula. Differential diagnosis includes chronic infection, chronic interstitial lung disease and postinflammatory scarring/fibrosis. 2: Acute sigmoid diverticulitis with possible small peridiverticular abscess. Cannot exclude underlying sigmoid mass. Recommend GI consultation for evaluation when the patient's condition permits. Reviewed, dictated and finalized at location [facility]. IMPRESSION: 1. Bilateral patchy consolidation with coarse interstitial changes predominantl y affecting the upper lobes. There is associated interlobular septal thickening and mild bronchiectasis of the lingula. Differential diagnosis includes chroni c infection, chronic interstitial lung disease and postinflammatory scarring/fi brosis. 2: Acute sigmoid diverticulitis with possible small peridiverticular abscess. C annot exclude underlying sigmoid mass. Recommend GI consultation for evaluation when the patient's condition permits.
--- NOTE | 2025-06-11 13:17 | ECG_ITS ---
Test Date: 2025-06-11 13:23:56 Measurements Intervals [place] Rate: 79 P: 38 [place]: 151 QRS: 23 QRSD: 86 T: 37 QT: 358 QTc: 411 Interpretive Statements SINUS RHYTHM LOW QRS VOLTAGE IN PRECORDIAL LEADS [QRS DEFLECTION < 1.0 mV IN CHEST LEADS] POSSIBLE RIGHT VENTRICULAR CONDUCTION DELAY [RSR (QR) IN V1/V2] BORDERLINE ECG COMPARED WITH APRIL 18, 2025 NO SIGNIFICANT DIFFERENCE Electronically Signed On 06-11-2025 16:27:06 CDT by Mariano Mcmillan M.D.
[2025-06-11] MEDS: LACTATED RINGERS 1,000 ML 999 ML IV CONT (13:37)
[2025-06-11 13:51] LABS: Hematocrit 32.1 % (37.0-47.0); Hemoglobin 9.8 g/dL (12.0-15.0); Mean Corpuscular HGB Conc 30.5 g/dl (32-36); Mean Corpuscular Hemoglobin 30.6 pg (26-34); Mean Corpuscular Volume 100.3 fl (80-100); Platelet Count Result 285 k/mm3 (150-375); Red Blood Count 3.20 M/mm3 (4.2-5.4); White Blood Count 23.2 K/mm3 (4.5-10.0)
[2025-06-11 13:55] LABS: Alanine Aminotransferase 23 U/L (6-35); Albumin Level 3.6 g/dL (3.5-5.1); Alkaline Phosphatase 57 U/L (38-126); Anion Gap 7 mmol/L (4-12); Aspartate Amino Transferase 29 U/L (14-36); Bilirubin,Total 0.5 mg/dL (0.2-1.3); Blood Urea Nitrogen 17 mg/dL (7-17); Calcium 8.6 mg/dL (8.4-10.2); Carbon Dioxide 31 mmol/L (22-30); Chloride 100 mmol/L (98-107); Estimated CRCL calculation 40 ml/min; Estimated Glomerular Filt Rate 58; Glucose 145 mg/dL (65-110); Potassium 4.9 mmol/L (3.4-5.0); Sodium 138 mmol/L (137-145); Total Protein 7.1 g/dL (6.3-8.2)
[2025-06-11 14:00] LABS: INR 1.4; Prothrombin Time 17.1 Seconds (11.1-14.7)
[2025-06-11 14:02] LABS: Partial Thromboplastin Time 54.8 Seconds (22.3-36.8)
--- NOTE | 2025-06-11 14:03 | ED.GENADULT ---
HPI - General Adult General Chief complaint: Altered Mental Status Stated complaint: AMS Time Seen by Provider: 06/11/25 13:21 History of Present Illness HPI narrative: 80-year-old female present to the emergency department from a local group home for evaluation for altered mental status. Patient is supposed to wear her oxygen, 3 L at all times. Patient was found this morning with her oxygen off. Staff but the nasal cannula back on but they stated the patient remained confused. upon arrival emergency department patient is A&O x2. At time of evaluation patient denies any pain or complaints. Patient does have some wheeze on examination. patient does have history of patient has history emphysema, O2 requirement, frequent pneumonia Related Data Home Medications ?Medication ?Instructions ?Recorded ?Confirmed ?Last Taken ?Type acetaminophen 650 mg 650 mg PO Q6H PRN Mild Pain (Scale 10/09/21 06/11/25 Unknown History tablet,extended release Score 1-4) carvedilol 3.125 mg tablet (Coreg) 3.125 mg PO BID 10/09/21 06/11/25 03/18/25 History ondansetron 4 mg disintegrating 8 mg PO Q6H PRN nausea and 10/09/21 06/11/25 06/02/25 History tablet vomitting apixaban 2.5 mg tablet (Eliquis) 2.5 mg PO BID 01/12/23 06/11/25 03/18/25 History bupropion HCl 75 mg tablet 75 mg PO DAILY 01/12/23 06/11/25 03/18/25 History furosemide 40 mg tablet 40 mg PO QAM 01/12/23 06/11/25 06/10/25 History guaifenesin 600 mg tablet, 600 mg PO BID 01/12/23 06/11/25 06/11/25 History extended release 12 hr albuterol sulfate 2.5 mg/3 mL 2.5 mg inhalation QID PRN SOB 04/18/24 06/11/25 Unknown History (0.083 %) solution for nebulization omega 1-dzm-xzz-fish oil 1,000 mg 1 cap PO DAILY 04/18/24 06/11/25 06/11/25 History (120 mg-180 mg) capsule (Fish Oil) artificial tears solution eye drops 1 drp ophthalmic (eye) BID dry eyes 04/21/24 06/11/25 03/18/25 History cholecalciferol (vitamin D3) 25 25 mcg PO DAILY 04/21/24 06/11/25 06/11/25 History mcg (1,000 unit) tablet emollient combination no.110 1 ea topical DAILY 04/21/24 06/11/25 06/10/25 History (Eucerin Intensive Repair lotion) hydrocortisone 2.5 % topical cream 1 applic topical QID PRN Itching 04/21/24 06/11/25 Unknown History ipratropium 0.5 mg-albuterol 3 mg 3 ml inhalation Q6H PRN SOB 04/21/24 06/11/25 03/18/25 History (2.5 mg base)/3 mL nebulization soln loperamide 2 mg capsule 2 mg PO Q12H PRN Diarrhea 04/21/24 06/11/25 05/05/25 History ascorbic acid (vitamin C) 500 mg 500 mg PO BID 03/19/25 06/11/25 06/11/25 History tablet atorvastatin 40 mg tablet 40 mg PO QPM 03/19/25 06/11/25 03/18/25 History bisacodyl 10 mg rectal suppository 10 mg RECTAL DAILY PRN constipation 03/19/25 06/11/25 Unknown History diclofenac sodium 1 % topical gel 4.5 inch topical BID 03/19/25 06/11/25 06/11/25 History (Arthritis Pain (diclofenac)) diclofenac sodium 50 mg 50 mg PO Q12H PRN inflammation 03/19/25 06/11/25 03/18/25 History tablet,delayed release fexofenadine 180 mg tablet 180 mg PO DAILY 03/19/25 06/11/25 06/11/25 History (Lea Allergy) magnesium citrate (Citroma oral 296 ml PO DAILY PRN constipation 03/19/25 06/11/25 Unknown History solution) methotrexate sodium 7.5 mg tablet 7.5 mg PO WEEKLY 03/19/25 06/11/25 06/08/25 History (Trexall) multivitamin (Daily Multi-Vitamin 1 tablet PO DAILY 03/19/25 06/11/25 06/11/25 History tablet) sennosides 8.6 mg capsule (senna) 8.6 mg PO BID 03/19/25 06/11/25 06/11/25 History triamcinolone acetonide 0.1 % 1 applic topical BID 03/19/25 06/11/25 06/11/25 History topical cream baclofen 10 mg tablet 10 mg PO Q6H PRN moderate pain 04/18/25 06/11/25 Unknown History esomeprazole magnesium 40 mg 40 mg PO DAILY 05/05/25 06/11/25 06/11/25 History granules delayed release for susp Lactobacillus acidophilus 100 mg PO BID 06/11/25 06/11/25 06/11/25 History cetirizine 10 mg tablet (24Hour 10 mg PO HS 06/11/25 06/11/25 06/10/25 History Allergy) diphenhydramine HCl 25 mg capsule 25 mg PO Q6H PRN itching 06/11/25 06/11/25 06/07/25 History (Allergy (diphenhydramine)) hydrocodone 5 mg-acetaminophen 325 1 tablet PO TID PRN pain 06/11/25 06/11/25 06/11/25 History mg tablet joyjiy-salspmto-clfybiy 2 cap PO TIDWM 06/11/25 06/11/25 06/11/25 History 24,000-76,000-120,000 unit capsule,delayed rel (Creon) phenyleph-shark liver 1 applic topical BID PRN 06/11/25 06/11/25 Unknown History xji-bpivtp-ivk rectal cream hemorrhoids polyethylene glycol 3350 17 gram 17 g PO DAILY 06/11/25 06/11/25 Unknown History oral powder packet (ClearLax) sodium phosphates 19 gram-7 118 ml RECTAL DAILY PRN 06/11/25 06/11/25 Unknown History gram/118 mL enema (Enema) constipation trazodone 50 mg tablet 50 mg PO HS 06/11/25 06/11/25 06/10/25 History umeclidinium 62.5 mcg-vilanterol 1 inh inhalation Q24H 06/11/25 06/11/25 06/11/25 History 25 mcg/actuation powdr for inhalation (Anoro Ellipta) Allergies Allergy/AdvReac Type Severity Reaction Status Date / Time ceftriaxone (From Rocephin) Allergy Intermediate Rash Verified 06/11/25 17:35 Sulfa (Sulfonamide Allergy Intermediate Rash Verified 06/11/25 17:35 Antibiotics) morphine AdvReac Mild Hallucinati Verified 06/11/25 17:35 ng Review of Systems Review of Systems: All systems reviewed & are unremarkable except as noted in HPI and below PMFSH Past Medical History Medical History Drug overdose Pulmonary embolism (06/2021) Pulmonary arterial hypertension Chronic interstitial lung disease Overactive bladder Peripheral vascular disease Cerebrovascular accident Anemia of chronic disease Clostridium difficile diarrhea Prediabetes Hyperlipidemia Hypertension History of peptic ulcer Gastroesophageal reflux disease Chronic respiratory failure with hypoxia and hypercapnia On 2 to 3 L nasal cannula. Chronic obstructive pulmonary disease Diastolic congestive heart failure Pneumonia due to 2019-nCoV (06/11/21) Exocrine pancreatic insufficiency Migraine Herniated disc Osteoporosis Anxiety Depression Arthritis GI bleed Pancreatitis Emphysema of lung Dementia Surgical History Surgical History History of neck surgery (2001) History of tonsillectomy History of bladder suspension procedure History of lumbar fusion x2 History of hysterectomy History of tubal ligation History of cholecystectomy History of cardiac cath History of vascular surgery Left lower extremity. Family History Family History (Updated 06/11/25 @ 17:37 by Tere Ny RN) Father Family history of Parkinson's disease Mother Family history of pancreatic cancer Family history of chronic obstructive pulmonary disease Other Patient's brother is in good health Social History Social History Social History: Surrogate decision maker: Stefanie Finney, granddaughter. Code status: Full code. Smoking packs per day: 0.5 Smoking cigarettes per day: 10.0 Years smoked: 20 Smoking pack-years: 10.00 Smoking status: Former smoker Tobacco type: cigarettes Second hand tobacco smoke exposure: Yes Alcohol intake: never Substance use: never Substance use type: does not use Do You Feel Safe in your Home?: Yes Lack of Transportation: No Lack of Food: Never True Current Housing: I Have Housing Concerned About Future Housing: No Difficulty Paying Gas/Electric Bills: No Difficulty Paying for Meds: No Currently Unemployed: No Education: High School Diploma/GED Difficulty w/ Childcare or Family Care: No Living arrangements: group home Additional living arrangements comments: Resident of [facility]. Additional occupation/education comments: Retired. Spiritual care concerns: No Exam Narrative: APPEARANCE: ill-appearing HEAD: normocephalic, atraumatic. EYES: PERRLA/EOMI, conjunctivae clear. NOSE: Normal no drainage EARS:TMS clear with good light reflex. THROAT: Pharynx clear, no exudate. NECK: Supple. No adenopathy, no masses. RESPIRATORY: expiratory wheeze CARDIOVASCULAR: Regular rate and rhythm without murmurs rubs or gallops. ABDOMINAL: Soft, nontender, nondistended, normal bowel sounds MUSCULOSKELETAL: Moves all extremities. Strength/ROM intact, No edema, No calf tenderness. NEURO: Alert. Cranial nerves II through XII intact. grossly intact SKIN: Warm, dry. Normal Color Course Vital Signs Vital signs: Vital Signs Temperature 98.6 F 06/11/25 13:08 Pulse Rate 82 06/11/25 13:08 Respiratory Rate 18 06/11/25 13:08 Blood Pressure 79/47 L 06/11/25 13:08 Pulse Oximetry 95 06/11/25 13:08 Oxygen Delivery Nasal Cannula 06/11/25 13:08 Oxygen Flow Rate 3 06/11/25 13:08 Temperature 98.6 F 06/11/25 17:29 Pulse Rate 80 06/11/25 18:00 Respiratory Rate 22 H 06/11/25 17:29 Blood Pressure 130/99 H 06/11/25 17:29 Pulse Oximetry 98 06/11/25 17:29 Oxygen Delivery BiPAP 06/11/25 17:18 Oxygen Flow Rate 3 06/11/25 13:08 Medical Decision Making [facility] Narrative Medical decision making narrative: 80-year-old female history of COPD and 3 days of oxygen were current mint as result times presents emergency department for evaluation for a proxy a and low blood pressure. Patient is afebrile but does have a significant leukocytosis of 23,000 our hemoglobin of 9.8. Patient has an INR 1.4. Patient's ABG had a pH is 7.316 and a pCO2 of 64.7. Due to this hypercapnia patient was placed on BiPAP 07/06. patient's CRP was elevated at 7.2. Chest x-ray was concerning for pneumonia. Patient was negative for influenza RSV and COVID. Patient was started on Levaquin for pneumonia and due to her underlying medication allergies. Blood cultures were ordered. Patient was treated with 30 lactated Ringer's. ML per kg of lactated Ringer's. Patient's blood pressure did respond appropriately. On re-evaluation patient is improved of appearing. Case was discussed with hospitalist patient was accepted to the IMU for BiPAP. Critical Care Procedure Note Authorized and Performed by: Shemar Mosley Total critical care time: Approximately 36 minutes Due to a high probability of clinically significant, life threatening deterioration, the patient required my highest level of preparedness to intervene emergently and I personally spent this critical care time directly and personally managing the patient. This critical care time included obtaining a history; examining the patient; pulse oximetry; ordering and review of studies; arranging urgent treatment with development of a management plan; evaluation of patient's response to treatment; frequent reassessment; and, discussions with other providers. This critical care time was performed to assess and manage the high probability of imminent, life-threatening deterioration that could result in multi-organ failure. It was exclusive of separately billable procedures and treating other patients and teaching time. Please see MDM section and the rest of the note for further information on patient assessment and treatment. Vital Signs Vital Signs: Vital Signs Temperature 98.6 F 06/11/25 13:08 Pulse Rate 82 06/11/25 13:08 Respiratory Rate 18 06/11/25 13:08 Blood Pressure 79/47 L 06/11/25 13:08 Pulse Oximetry 95 06/11/25 13:08 Oxygen Delivery Nasal Cannula 06/11/25 13:08 Oxygen Flow Rate 3 06/11/25 13:08 Temperature 98.6 F 06/11/25 17:29 Pulse Rate 80 06/11/25 18:00 Respiratory Rate 22 H 06/11/25 17:29 Blood Pressure 130/99 H 06/11/25 17:29 Pulse Oximetry 98 06/11/25 17:29 Oxygen Delivery BiPAP 06/11/25 17:18 Oxygen Flow Rate 3 06/11/25 13:08 Lab Data 06/11/25 13:31 06/11/25 13:31 Labs: Lab Results 06/11/25 06/11/25 06/11/25 Range/Units 13:31 13:48 14:14 WBC 23.2 H (4.5-10.0) K/mm3 RBC 3.20 L (4.2-5.4) M/mm3 Hgb 9.8 L (12.0-15.0) g/dL Hct 32.1 L (37.0-47.0) % MCV 100.3 H (80-100) fl MCH 30.6 (26-34) pg MCHC 30.5 L (32-36) g/dl RDW 16.1 H (11.5-14.5) % Plt Count 285 (150-375) k/mm3 MPV 11.7 H (7.4-10.4) fl Immature Gran % (Auto) Not Reportable Neut % (Auto) Not Reportable Lymph % (Auto) Not Reportable [place] % (Auto) Not Reportable Eos % (Auto) Not Reportable Baso % (Auto) Not Reportable Lymph # (Auto) Not Reportable [place] # (Auto) Not Reportable Eos # (Auto) Not Reportable Baso # (Auto) Not Reportable Abs Immat Gran (auto) Not Reportable Absolute Neuts (auto) Not Reportable Absolute Nucleated RBC Not Reportable Total Counted 100 Neutrophils % (Manual) 81 H (46-73) % Band Neutrophils % 3 (0-6) % Lymphocytes % (Manual) 15.0 L (18-44) % Basophils % (Manual) 1 (0-1) % Nucleated RBC % Not Reportable Abs Neuts (Manual) 19.48 H (1.3-6.7) K/mm3 Abs Lymphs (Manual) 3.48 (1.1-4.5) K/mm3 Abs Basophils (Manual) 0.23 H (0.0-0.1) K/mm3 Platelet Estimate Adequate (Adequate) Hypochromasia 1+ Anisocytosis 2+ Macrocytosis 1+ (NORMAL) Schistocytes None seen PT 17.1 H (11.1-14.7) Seconds INR 1.4 APTT 54.8 H (22.3-36.8) Seconds Methemoglobin 0.4 (0-1.5) %THb Sodium 138 (137-145) mmol/L Potassium 4.9 (3.4-5.0) mmol/L Chloride 100 (98-107) mmol/L Carbon Dioxide 31 H (22-30) mmol/L Anion Gap 7 (4-12) mmol/L BUN 17 (7-17) mg/dL Creatinine 0.93 (0.7-1.0) mg/dL Estim Creat Clear Calc 40 ml/min Estimated GFR 58 L (59 - ) Glucose 145 H (65-110) mg/dL Lactic Acid (0.7-2.0) mmol/L Calcium 8.6 (8.4-10.2) mg/dL Total Bilirubin 0.5 (0.2-1.3) mg/dL AST 29 (14-36) U/L ALT 23 (6-35) U/L Alkaline Phosphatase 57 (38-126) U/L C-Reactive Protein 7.2 H (<1.0) mg/dL Total Protein 7.1 (6.3-8.2) g/dL Albumin 3.6 (3.5-5.1) g/dL Urine Color Yellow (Yellow) Urine Appearance Clear (Clear) Urine pH 6.0 (5.0-9.0) Ur Specific Carey 1.016 (1.001-1.035) Urine Protein Negative (Negative) mg/dL Urine Glucose (UA) Negative (Negative) mg/dL Urine Ketones Trace H (Negative) mg/dL Ur Blood (Man) Negative (Negative) Urine Nitrate Negative (Negative) Urine Bilirubin Negative (Negative) Urine Urobilinogen 1.0 (<2.0) mg/dL Add Ur Microanalysis Reviewed Leukocyte Esterase Rfl 1+ H (Negative) DENTON/UL Urine RBC 0-2 (0-2) /hpf Urine WBC 0-5 (0-3) /hpf Ur Squamous Epith Cells None seen (Few) /hpf Urine Bacteria None seen /hpf Urine Casts 0-2 Influenza A (RT-PCR) (Negative) Influenza B (RT-PCR) (Negative) RSV (RT-PCR) (Negative) SARS-CoV-2 RNA (RT-PCR) (Negative) 06/11/25 06/11/25 Range/Units 15:36 15:39 WBC (4.5-10.0) K/mm3 RBC (4.2-5.4) M/mm3 Hgb (12.0-15.0) g/dL Hct (37.0-47.0) % MCV (80-100) fl MCH (26-34) pg MCHC (32-36) g/dl RDW (11.5-14.5) % Plt Count (150-375) k/mm3 MPV (7.4-10.4) fl Immature Gran % (Auto) Neut % (Auto) Lymph % (Auto) [place] % (Auto) Eos % (Auto) Baso % (Auto) Lymph # (Auto) [place] # (Auto) Eos # (Auto) Baso # (Auto) Abs Immat Gran (auto) Absolute Neuts (auto) Absolute Nucleated RBC Total Counted Neutrophils % (Manual) (46-73) % Band Neutrophils % (0-6) % Lymphocytes % (Manual) (18-44) % Basophils % (Manual) (0-1) % Nucleated RBC % Abs Neuts (Manual) (1.3-6.7) K/mm3 Abs Lymphs (Manual) (1.1-4.5) K/mm3 Abs Basophils (Manual) (0.0-0.1) K/mm3 Platelet Estimate (Adequate) Hypochromasia Anisocytosis Macrocytosis (NORMAL) Schistocytes PT (11.1-14.7) Seconds INR APTT (22.3-36.8) Seconds Methemoglobin (0-1.5) %THb Sodium (137-145) mmol/L Potassium (3.4-5.0) mmol/L Chloride (98-107) mmol/L Carbon Dioxide (22-30) mmol/L Anion Gap (4-12) mmol/L BUN (7-17) mg/dL Creatinine (0.7-1.0) mg/dL Estim Creat Clear Calc ml/min Estimated GFR (59 - ) Glucose (65-110) mg/dL Lactic Acid 1.9 (0.7-2.0) mmol/L Calcium (8.4-10.2) mg/dL Total Bilirubin (0.2-1.3) mg/dL AST (14-36) U/L ALT (6-35) U/L Alkaline Phosphatase (38-126) U/L C-Reactive Protein (<1.0) mg/dL Total Protein (6.3-8.2) g/dL Albumin (3.5-5.1) g/dL Urine Color (Yellow) Urine Appearance (Clear) Urine pH (5.0-9.0) Ur Specific Carey (1.001-1.035) Urine Protein (Negative) mg/dL Urine Glucose (UA) (Negative) mg/dL Urine Ketones (Negative) mg/dL Ur Blood (Man) (Negative) Urine Nitrate (Negative) Urine Bilirubin (Negative) Urine Urobilinogen (<2.0) mg/dL Add Ur Microanalysis Leukocyte Esterase Rfl (Negative) EDNTON/UL Urine RBC (0-2) /hpf Urine WBC (0-3) /hpf Ur Squamous Epith Cells (Few) /hpf Urine Bacteria /hpf Urine Casts Influenza A (RT-PCR) Negative (Negative) Influenza B (RT-PCR) Negative (Negative) RSV (RT-PCR) Negative (Negative) SARS-CoV-2 RNA (RT-PCR) Negative (Negative) ABG Data ABG results: 06/11/25 14:14 Puncture Site Right brachial ABG pH 7.316 L ABG pCO2 64.7 H* ABG pO2 85.8 ABG PO2/FiO2 Ratio 3.06 ABG HCO3 32.3 H ABG O2 Saturation 95.4 ABG O2 Content 13.8 L ABG Base Excess 4.8 A-a Gradient 37.5 Oxyhemoglobin 94.2 Carboxyhemoglobin 0.7 Reduced Hemoglobin 4.7 Total Hemoglobin 10.3 L O2 Delivery Device Nasal cannula O2 Liters/Min 2.0 FiO2 28 Critical Care Time Critical Care Time Critical Care Time: Yes Total Critical Care Time: 36 Discharge Plan Discharge Clinical Impression: Acute hypercapnic respiratory failure Pneumonia Qualifiers: Pneumonia type: due to unspecified organism Laterality: bilateral Lung location: lower lobe of lung Qualified Code(s): J18.9 - Pneumonia, unspecified organism Sepsis Qualifiers: Sepsis type: sepsis due to unspecified organism Sepsis acute organ dysfunction status: with acute organ dysfunction Severe sepsis acute organ dysfunction type: acute respiratory failure Acute respiratory failure type: with hypercapnia Severe sepsis shock status: unspecified Qualified Code(s): A41.9 - Sepsis, unspecified organism Patient Disposition: Still a Patient Condition: Serious
[2025-06-11] MEDS: ALBUTEROL SULFATE NEB 2.5 MG/3 ML INH 5 MG INHALATION (14:08)
[2025-06-11 14:17] LABS: Alveolar/Arterial O2 Gradient 37.5 mmHg; Carboxyhemoglobin 0.7 % THb (0-2.0); Fractional Inspired Oxygen 28 %; HCO3 ABG 32.3 mEq/l (22.0-26.0); Methemoglobin ABG 0.4 %THb (0-1.5); Oxygen Content ABG 13.8 %vol (16.0-22.0); Oxygen Saturation ABG 95.4 % (95.0-100.0); PO2 ABG 85.8 mmHg (80.0-100.0); PO2 FiO2 Ratio Arterial Blood 3.06 %; Reduced Hemoglobin 4.7 %THb (0-5.0)
[2025-06-11 14:17] LABS: Add Urine Microscopic? YES; Appearance Urine Clear (Clear); Glucose Urine UA Negative (Negative); Leukocyte Esterase Ur 1+ LEU/UL (Negative); Need Manual Microscopic Reviewed; Nitrate Urine Negative (Negative); Non Pathogenic Casts 0-2; Specific Grav Ur 1.016 (1.001-1.035)
[2025-06-11 14:18] LABS: Liters per Minute 2.0 LPM; PCO2 ABG 64.7 mmHg (35.0-45.0); Site Drawn RIGHT BRACHIAL
--- OUTSIDE RECORDS SUMMARY | 2025-06-11 14:18 | XMS_ITS | Encounter Summary ---
Author Organization [facility] Healthcare Address [address] [place] [address] Care Team Providers Care Fiberglass Boat Maker Name Role Phone Mack Vanegas DO Primary Care Provider [phone]- [phone] Encounter Details Date Type Department Care Team (Late st Contact Info) Description 02/10/[address] 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
--- OUTSIDE RECORDS SUMMARY | 2025-06-11 14:18 | XMS_ITS | Clinical Summary ---
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 MEDICARE ADVANTAGE [facility] MEDICARE Address: [facility] [address] [place] [address] [facility]ICARE [facility] Address: [address] [address] [place] [address] [facility] MEDICARE ADVANTAGE [facility] MEDICARE Address: [address] [address] [place] [address] IDPA Advance Directives For more information, please contact: [phone] Documents on File Type Date Recorded Patient Lan Specialist Expl anation ADVANCE DIRECTIVE 02/09/2013 12:00 AM GREYSON Elizondo OF [facility] FINANCIAL/MEDICAL Care Teams Pole Inspector Relationship Specialty Start Date End Date Mack Vanegas DO PCP - General Internal Medicine 03/07/19
--- OUTSIDE RECORDS SUMMARY | 2025-06-11 14:18 | XMS_ITS | Clinical Summary ---
Author Organization [facility] Address [address] [place] [address] Care Team Providers Care Feather Mixer Name Role Phone PastoradruMack montanez DO Primary Care Provider Source Comments [facility],non-owned Affiliates and Associated Physician Practices is amultiple site organization consisting of ambulatory clinics and hospital sitesin [place], [place], [place] and [place]. This disclosure is being madepursuant to the Care Everywhere program and may not contain all information available regarding this patient. 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 Gender Identity Not on file Sexual [...] 03/05/2025 1:34 PM CDT Plan of Treatment Health Maintenance Due Date Last Done Comments BONE DENSITY TESTING 1945 MEDICARE AWV 12 MONTHS 1945 DTAP/TDAP/TD VACCINES (1 - Tdap) 01/02/1963 PNEUMOCOCCAL VACCINE 50+ (1 of 1 - PCV) 01/02/1994 ZOSTER VACCINE (1 of 2) 01/02/1994 Respiratory Syncytial Virus (RSV) Vaccine Pt: or over 60 yrs (1 - 1-dose 75+ series) 01/02/2019 COVID-19 VACCINE ( - season) 2025 09/15/2022, 09/16/2021, 11/19/2020, Additional history exists INFLUENZA [...] on patient's age to complete this topic Insurance MEDICARE MEDICAID - [place] MEDICARE Care Teams Feather Mixer Relationship Specialty Start Date End Date Mack Vanegas DO [address] [place] [address] PCP - General Internal Medicine 11/27/24
[2025-06-11] MEDS: LACTATED RINGERS 1,000 ML 500 ML IV CONT (14:35)
[2025-06-11 14:37] LABS: Band Neutrophils Percent 3 % (0-6); Basophils Absolute Manual 0.23 K/mm3 (0.0-0.1); Basophils Percent Manual 1 % (0-1); Lymphocytes Absolute Manual 3.48 K/mm3 (1.1-4.5); Lymphocytes Percent Manual 15.0 % (18-44); Neutrophils Absolute Manual 19.48 K/mm3 (1.3-6.7); Neutrophils Percent Manual 81 % (46-73); Total Cells Counted 100
[2025-06-11 14:38] LABS: Hypochromasia 1+; Schistocytes None Seen
[2025-06-11 14:39] LABS: Anisocytosis 2+; Macrocytosis 1+ (NORMAL)
--- NOTE | 2025-06-11 14:47 | PC.NURSE ---
Stefanie, pt POA, called to give update and ask for more information regarding pt care.
[2025-06-11 15:37] LABS: CRP 7.2 mg/dL (<1.0)
--- NOTE | 2025-06-11 15:52 | PM.IMHP ---
H&P: HPI History of Present Illness Date/Time: 06/11/25 15:52 Chief Complaint: AMS Narrative: 80 y/o F with PMH of pulmonary embolism, pulmonary arterial her hypotension, chronic interstitial lung disease, peripheral vascular disease, CVA, anemia of chronic disease, hyperlipidemia, hypertension, chronic respiratory failure with hypoxia and hypercapnia on 3L nasal cannula, COPD, CHF, osteoporosis, anxiety/depression, dementia, pancreatitis, and previous GI bleed presents here with altered mental status. The patient presents here from [facility] via EMS on 06/11 for further evaluation of altered mental status. History obtained through patient report, patient's POAs, and chart review. assisted staff reported to EMS that the patient had not been wearing her baseline supplemental oxygen, she is supposed to be on 3L nasal cannula at all times. The nasal cannula was replaced, however the patient remained out of it. They reported a baseline orientation of A&O x4, the patient arrived to the emergency department A&O x2. She was additionally found to be significantly hypotensive, 79/47. She was given 1.5 L of IV fluids and her blood pressure increased to 113/66. Patient denies cough, shortness of breath, fever, chills, nausea, vomiting, or palpitations. Reporting lightheadedness and suprapubic/lower abdominal pain. Per, granddaughter (POA) patient was not confused last night when she saw her and she was in her normal state of health. She also reports the patient has been having chronic diarrhea since she had diverticulitis with abscess and septic shock. Patient tested negative for c. diff at that time. She was admitted here from 04/19/25 - 04/28/25. They have been treating the diarrhea outpatient with Lomotil and Metamucil. Initial VS at presentation: 98.6? F, HR 82, RR 18, 79/47, and 95% on 3L nasal cannula. Now on BiPAP due to CO2 levels. ED workup showed: WBC 23.2, hemoglobin 9.8 (similar to previous), INR 1.4, ABG significant for a CO2 of 64.7, no significant electrolyte derangements, glucose 145, lactic 1.9, CRP 7.2, UA showed trace ketones and 1+ leuk esterase otherwise unremarkable. Viral PCR pending. CXR showed chronic multifocal airspace disease (differential: Chronic infection, organized pneumonia chronic inflammatory conditions such as sarcoidosis or vasculitis). EKG showed sinus rhythm, low QRS voltage in precordial leads, possible right ventricular conduction delay, possible inferior UT (awaiting formal read). Review of Systems Review of Systems: All systems reviewed & are unremarkable except as noted in HPI and below (Limited, altered) [facility] Past Medical History Medical History (Updated 06/11/25 @ 22:00 by Kinjal Aponte APRN) Chronic respiratory failure with hypoxia and hypercapnia On 2 to 3 L nasal cannula. Dementia OAB (overactive bladder) Anemia of chronic disease Sigmoid diverticulitis with abscess and shock, April 2025 Exocrine pancreatic insufficiency Pancreatitis Chronic anticoagulation Hyperlipidemia Diastolic congestive heart failure Hypertension Drug overdose Pulmonary embolism (06/2021) Pulmonary arterial hypertension Chronic interstitial lung disease Peripheral vascular disease Cerebrovascular accident Clostridium difficile diarrhea Prediabetes History of peptic ulcer Gastroesophageal reflux disease Chronic obstructive pulmonary disease Pneumonia due to 2019-nCoV (06/11/21) Migraine Herniated disc Osteoporosis Anxiety Depression Arthritis GI bleed Emphysema of lung Surgical History Surgical History History of lumbar fusion x2 History of neck surgery (2001) History of tonsillectomy History of bladder suspension procedure History of hysterectomy History of tubal ligation History of cholecystectomy History of cardiac cath History of vascular surgery Left lower extremity. Family History Family History Father Family history of Parkinson's disease Mother Family history of pancreatic cancer Family history of chronic obstructive pulmonary disease Other Patient's brother is in good health Social History Social History Social History: Surrogate decision maker: Stefanie Finney, granddaughter. Code status: Full code. Smoking packs per day: 0.5 Smoking cigarettes per day: 10.0 Years smoked: 20 Smoking pack-years: 10.00 Smoking status: Former smoker Tobacco type: cigarettes Second hand tobacco smoke exposure: Yes Alcohol intake: never Substance use: never Substance use type: does not use Do You Feel Safe in your Home?: Yes Lack of Transportation: No Lack of Food: Never True Current Housing: I Have Housing Concerned About Future Housing: No Difficulty Paying Gas/Electric Bills: No Difficulty Paying for Meds: No Currently Unemployed: No Education: High School Diploma/GED Difficulty w/ Childcare or Family Care: No Living arrangements: long term Additional living arrangements comments: Resident of [facility]. Additional occupation/education comments: Retired. Spiritual care concerns: No Meds Home Medications and Allergies Home Medications ?Medication ?Instructions ?Recorded ?Confirmed ?Type pregabalin 150 mg capsule (Lyrica) 150 mg PO BID #60 caps 02/03/21 06/11/25 Rx folic acid 1 mg tablet 1 mg PO DAILY #90 tabs 03/30/21 06/11/25 Rx acetaminophen 650 mg 650 mg PO Q6H PRN Mild Pain (Scale 10/09/21 06/11/25 History tablet,extended release Score 1-4) carvedilol 3.125 mg tablet (Coreg) 3.125 mg PO BID 10/09/21 06/11/25 History ondansetron 4 mg disintegrating 8 mg PO Q6H PRN nausea and 10/09/21 06/11/25 History tablet vomitting apixaban 2.5 mg tablet (Eliquis) 2.5 mg PO BID 01/12/23 06/11/25 History bupropion HCl 75 mg tablet 75 mg PO DAILY 01/12/23 06/11/25 History furosemide 40 mg tablet 40 mg PO QAM 01/12/23 06/11/25 History guaifenesin 600 mg tablet, 600 mg PO BID 01/12/23 06/11/25 History extended release 12 hr albuterol sulfate 2.5 mg/3 mL 2.5 mg inhalation QID PRN SOB 04/18/24 06/11/25 History (0.083 %) solution for nebulization omega 0-bkl-xda-fish oil 1,000 mg 1 cap PO DAILY 04/18/24 06/11/25 History (120 mg-180 mg) capsule (Fish Oil) artificial tears solution eye drops 1 drp ophthalmic (eye) BID dry eyes 04/21/24 06/11/25 History cholecalciferol (vitamin D3) 25 25 mcg PO DAILY 04/21/24 06/11/25 History mcg (1,000 unit) tablet emollient combination no.110 1 ea topical DAILY 04/21/24 06/11/25 History (Eucerin Intensive Repair lotion) hydrocortisone 2.5 % topical cream 1 applic topical QID PRN Itching 04/21/24 06/11/25 History ipratropium 0.5 mg-albuterol 3 mg 3 ml inhalation Q6H PRN SOB 04/21/24 06/11/25 History (2.5 mg base)/3 mL nebulization soln loperamide 2 mg capsule 2 mg PO Q12H PRN Diarrhea 04/21/24 06/11/25 History ascorbic acid (vitamin C) 500 mg 500 mg PO BID 03/19/25 06/11/25 History tablet atorvastatin 40 mg tablet 40 mg PO QPM 03/19/25 06/11/25 History bisacodyl 10 mg rectal suppository 10 mg RECTAL DAILY PRN constipation 03/19/25 06/11/25 History diclofenac sodium 1 % topical gel 4.5 inch topical BID 03/19/25 06/11/25 History (Arthritis Pain (diclofenac)) diclofenac sodium 50 mg 50 mg PO Q12H PRN inflammation 03/19/25 06/11/25 History tablet,delayed release fexofenadine 180 mg tablet 180 mg PO DAILY 03/19/25 06/11/25 History (Lea Allergy) magnesium citrate (Citroma oral 296 ml PO DAILY PRN constipation 03/19/25 06/11/25 History solution) methotrexate sodium 7.5 mg tablet 7.5 mg PO WEEKLY 03/19/25 06/11/25 History (Trexall) multivitamin (Daily Multi-Vitamin 1 tablet PO DAILY 03/19/25 06/11/25 History tablet) sennosides 8.6 mg capsule (senna) 8.6 mg PO BID 03/19/25 06/11/25 History triamcinolone acetonide 0.1 % 1 applic topical BID 03/19/25 06/11/25 History topical cream budesonide 0.5 mg/2 mL suspension 0.5 mg (2 mL) inhalation Q12HRT 04/01/25 06/11/25 Rx for nebulization (Pulmicort) #30 mL fluticasone propionate 50 1 spray intranasal Q12HR #30 grams 04/01/25 06/11/25 Rx mcg/actuation nasal spray,suspension baclofen 10 mg tablet 10 mg PO Q6H PRN moderate pain 04/18/25 06/11/25 History esomeprazole magnesium 40 mg 40 mg PO DAILY 05/05/25 06/11/25 History granules delayed release for susp Lactobacillus acidophilus 100 mg PO BID 06/11/25 06/11/25 History cetirizine 10 mg tablet (24Hour 10 mg PO HS 06/11/25 06/11/25 History Allergy) diphenhydramine HCl 25 mg capsule 25 mg PO Q6H PRN itching 06/11/25 06/11/25 History (Allergy (diphenhydramine)) hydrocodone 5 mg-acetaminophen 325 1 tablet PO TID PRN pain 06/11/25 06/11/25 History mg tablet rkkwko-ayajtedo-mwgbprw 2 cap PO TIDWM 06/11/25 06/11/25 History 24,000-76,000-120,000 unit capsule,delayed rel (Creon) phenyleph-shark liver 1 applic topical BID PRN 06/11/25 06/11/25 History cdm-bfzxdb-drh rectal cream hemorrhoids polyethylene glycol 3350 17 gram 17 g PO DAILY 06/11/25 06/11/25 History oral powder packet (ClearLax) sodium phosphates 19 gram-7 118 ml RECTAL DAILY PRN 06/11/25 06/11/25 History gram/118 mL enema (Enema) constipation trazodone 50 mg tablet 50 mg PO HS 06/11/25 06/11/25 History umeclidinium 62.5 mcg-vilanterol 1 inh inhalation Q24H 06/11/25 06/11/25 History 25 mcg/actuation powdr for inhalation (Anoro Ellipta) Allergies Allergy/AdvReac Type Severity Reaction Status Date / Time ceftriaxone (From Rocephin) Allergy Intermediate Rash Verified 06/11/25 17:35 Sulfa (Sulfonamide Allergy Intermediate Rash Verified 06/11/25 17:35 Antibiotics) morphine AdvReac Mild Hallucinati Verified 06/11/25 17:35 ng Vital Signs Vital Signs - 24 hr 06/11/25 13:08 06/11/25 13:19 06/11/25 13:21 Temperature 98.6 F Pulse Rate 82 81 105 H Respiratory Rate 18 17 16 Blood Pressure 79/47 L 74/54 L Pulse Oximetry 95 98 100 Oxygen Delivery Nasal Cannula Oxygen Flow Rate 3 06/11/25 13:22 06/11/25 14:07 06/11/25 14:14 Temperature Pulse Rate 135 H 78 83 Respiratory Rate 14 14 17 Blood Pressure 79/47 L Pulse Oximetry 99 Oxygen Delivery Oxygen Flow Rate 06/11/25 14:21 06/11/25 14:25 06/11/25 14:30 Temperature Pulse Rate 74 74 75 Respiratory Rate 15 15 15 Blood Pressure 88/57 L Pulse Oximetry 100 100 Oxygen Delivery Oxygen Flow Rate 06/11/25 14:31 06/11/25 14:42 Temperature Pulse Rate 77 Respiratory Rate 15 18 Blood Pressure Pulse Oximetry 99 95 Oxygen Delivery BiPAP Oxygen Flow Rate Exam Const: General: comfortable and no acute distress Other: , female, elderly, restless HENMT: Face/Nose/Sinus: Normal nares present Mouth: Yes dry mucous membranes Eyes: General: appearance normal, both eyes and all related structures Sclera: sclerae normal Pupils: Equal, round and reactive pupils present EOM: EOMs intact bilaterally Resp: Other: Increased work of breathing, scattered wheeze in her upper lung [place] however not consistent. No crackles appreciated. Cardio: Rate: regular rate Rhythm: regular rhythm Other: S1-S2 present without murmur, rub, ectopy GI: Other: Abdomen soft, nondistended, nontender. Normoactive bowel sounds in all quadrants. Skin: General skin exam: normal color and no rashes or lesions noted Wounds: no wounds Neuro: Speech: normal speech Motor exam (neuro): 5/5 motor strength present throughout Sensory Exam: normal sensation Other: A/Ox self, place. Extrem: General: normal to inspection Psych: Affect: normal affect Other: Poor insight and judgment at present, restless. H&P: Results Labs Labs: Short CBC 06/11/25 Range/Units 13:31 WBC 23.2 H (4.5-10.0) K/mm3 Hgb 9.8 L (12.0-15.0) g/dL Hct 32.1 L (37.0-47.0) % Plt Count 285 (150-375) k/mm3 BMP 06/11/25 13:31 Sodium 138 Potassium 4.9 Chloride 100 Carbon Dioxide 31 H BUN 17 Creatinine 0.93 Glucose 145 H Calcium 8.6 Liver Function 06/11/25 Range/Units 13:31 Total Bilirubin 0.5 (0.2-1.3) mg/dL AST 29 (14-36) U/L ALT 23 (6-35) U/L Alkaline Phosphatase 57 (38-126) U/L Albumin 3.6 (3.5-5.1) g/dL Urine 06/11/25 Range/Units 13:48 Urine Color Yellow (Yellow) Urine Appearance Clear (Clear) Urine pH 6.0 (5.0-9.0) Ur Specific [place] 1.016 (1.001-1.035) Urine Protein Negative (Negative) mg/dL Urine Glucose (UA) Negative (Negative) mg/dL Assessment and Plan Assessment and plan (1) Sepsis: Qualifiers: Sepsis type: sepsis due to unspecified organism Sepsis acute organ dysfunction status: with acute organ dysfunction Severe sepsis acute organ dysfunction type: acute respiratory failure Acute respiratory failure type: with hypercapnia Severe sepsis shock status: unspecified Qualified Code(s): A41.9 - Sepsis, unspecified organism; R65.20 - Severe sepsis without septic shock; J96.02 - Acute respiratory failure with hypercapnia Code(s): A41.9 - Sepsis, unspecified organism Status: Acute Assessment and Plan: - concern for sepsis due to significant hypotension, 79/47 upon arrival increasing concerns for shock. has responded to IV fluids. - lactic acid: 1.9 - 30 mL/kg = 2.1, 1.5 L given due to CHF history. Tolerated well. 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 atypical mycobacterial infection), organizing pneumonia and chronic inflammatory conditions such as sarcoidosis or vasculitis. - admission to IMU for close hemodynamic monitoring, BP remains soft (2) Acute on chronic respiratory failure with hypoxia and hypercapnia: Code(s): J96.21 - Acute and chronic respiratory failure with hypoxia; J96.22 - Acute and chronic respiratory failure with hypercapnia Status: Acute Assessment and Plan: Patient reportedly non compliant with her supplemental oxygen that she is supposed to be on at baseline, 3 L nasal cannula. Has history of COPD and chronic interstitial lung disease. Despite replacement of nasal cannula at the patient's facility, the patient remained altered. Initial ABG significant for a CO2 of 64.7. She was placed on BiPAP in the ED on 06/11. Will plan for repeat ABG this evening, if CO2 improved to baseline will titrate patient to nasal cannula. Will continue supplemental oxygen to maintain O2 sat greater than 92%, may wean to 3L nasal cannula. Repeat ABG this evening showed a CO2 of 51.2, will continue BiPAP at this time. Repeat ABG in a.m. (3) Altered mental status: Qualifiers: Altered mental status type: disorientation Qualified Code(s): R41.0 - Disorientation, unspecified Code(s): R41.82 - Altered mental status, unspecified Status: Acute Assessment and Plan: - check head CT >> no acute intracranial abnormality, chronic left cerebellar and lacunar infarctions - CO2 elevated, suspect CO2 narcosis as etiology for patient's alteration due to noncompliance with supplemental O2. Started on BiPAP on 06/11, plan for repeat ABG. - significant leukocytosis of 23.2, when compared to previous the patient was 12.4 on 05/05. CXR concerning for superimposed pneumonia, see plan below. May be contributing to patient's alteration via metabolic encephalopathy. Patient additionally has had chronic diarrhea since April and endorsing lower abdominal pain, checking CT. Has history of diverticulitis with abscess and septic shock. - neurological checks q.6 - reviewed home medications. hold baclofen, Benadryl, Ramona, trazodone until mental status improved. (4) Pneumonia: Qualifiers: Laterality: bilateral Lung location: lower lobe of lung Pneumonia type: due to unspecified organism Qualified Code(s): J18.9 - Pneumonia, unspecified organism Code(s): J18.9 - Pneumonia, unspecified organism Status: Acute Assessment and Plan: - see CXR impression above - risk factors and complicating factors: CO2 narcosis, previously positive MRSA, ILD - started on Levaquin and vancomycin on 06/11 - check MRSA PCR, previously positive on 04/23/2025 - Viral PCR completed on 06/11 >> negative - check sputum culture, Legionella, mycoplasma, pneumococcal - supportive care: Mucinex aaliyah, Tessalon Tomes p.r.n., Tylenol p.r.n., DuoNebs [facility] (5) Diarrhea: Qualifiers: Diarrhea type: unspecified type Qualified Code(s): R19.7 - Diarrhea, unspecified Code(s): R19.7 - Diarrhea, unspecified Status: Acute Assessment and Plan: - patient has history of diverticulitis with abscess and septic shock in April of 2025. During this admission she does not negative for C diff. diarrhea has been persistent since April and is currently being treated with Lomotil and Metamucil outpatient. Will continue both medications. - check C diff and stool culture - check CT abdomen/pelvis as the patient is endorsing lower abdominal pain - hold MiraLax and magnesium citrate (6) COPD (chronic obstructive pulmonary disease): Qualifiers: COPD type: unspecified COPD Qualified Code(s): J44.9 - Chronic obstructive pulmonary disease, unspecified Code(s): J44.9 - Chronic obstructive pulmonary disease, unspecified Status: Chronic Assessment and Plan: - 1 scattered wheeze on exam, patient did not endorse a productive cough decreasing concerns for a acute exacerbation of COPD - Gonzalo [facility] - started on broad-spectrum antibiotics due to concern for pneumonia (7) CHF (congestive heart failure): Qualifiers: Heart failure chronicity: chronic Heart failure type: unspecified Qualified Code(s): I50.9 - Heart failure, unspecified Code(s): I50.9 - Heart failure, unspecified Status: Chronic Assessment and Plan: - no evidence of pulmonary edema on CXR or on clinical exam - most recent echo (2022): Normal LV size with mild concentric hypertrophy, EF 60 65%, grade 1 diastolic dysfunction, mild valvular disease noted, mild pulmonary hypertension. See report for details. - home medication: Lasix 40 mg daily - monitor I&Os and daily weights - trend renal function (8) Anemia of chronic disease: Code(s): D63.8 - Anemia in other chronic diseases classified elsewhere Status: Chronic Assessment and Plan: - Hgb 9.8, previously 10.4 on 05/05/2025 - transfuse if <7 - monitor (9) HTN (hypertension): Qualifiers: Hypertension type: unspecified Qualified Code(s): I10 - Essential (primary) hypertension Code(s): I10 - Essential (primary) hypertension Status: Chronic Assessment and Plan: - chronic. Significantly hypotensive upon arrival on 06/11 with a blood pressure of 79/47. Improved with IV fluids, currently 92/60. - hold home medications including: Coreg - monitor (10) Prediabetes: Code(s): R73.03 - Prediabetes Status: Chronic Assessment and Plan: - no A1C on file, BS was 145 upon arrival. Check A1c. Plan Per POA patient has been experiencing multiple e. coli UTIs. She reports they have been resistant previously. UA showed 1+ leuks, otherwise unremarkable. UC was obtained, follow. Diet: Heart healthy GI Prophylaxis: N/a DVT Prophylaxis: Eliquis IV fluids: 1.5 L Lines/Tubes: Peripheral IV Code Status: Modified Code - no intubation, no CPR, meds only Quality VTE Prophylaxis VTE prophylaxis: pharmacologic ordered Critical Care Time: I personally spent 45 minutes of direct patient care including (but not limited to) the physical examination, decision-making, bedside evaluation, review of medical records, review of labs and imaging, discussion with nursing staff and other providers for collaborative, critical care management of this patient. Hospitalist [facility] Advance Care Plan I have confirmed that the patient's Advanced Care Plan is present, code status is documented, or surrogate decision maker is listed in patient medical record.: Yes Medication Reconciliation I have utilized all available resources to obtain, update and review the patients current medications (includes all prescriptions, OTC, herbals, cannabis, and nutritional supplements).: Yes
[2025-06-11] MEDS: levoFLOXacin 750 MG/D5W 150 ML 750 MG/150 ML BAG 100 MG IVPB (15:54)
[2025-06-11 16:26] LABS: Influenza A QL RT-PCR Negative (Negative); Influenza B QL RT-PCR Negative (Negative); RSV RNA, RT-PCR Negative (Negative); SARS-CoV-2 RNA PCR Negative (Negative)
--- NOTE | 2025-06-11 17:31 | ADMGEN ---
This patient, Gabbi Champagne, was admitted to IMU Room 203-01 at approximately 1715. Patient/family oriented to hospital policies and general routines including ID bracelet, bed and alarms, visiting hours, pain management, procedures, bathroom and other care routines, personal items, smoking policy, room service/diet, and visiting hours. Information on how to activate the Rapid Response Team has been discussed. Patient/Family are encouraged to report perceived risks to care and to ask questions if they do not understand what they are told or what they should do.
[2025-06-11] MEDS: VANCOMYCIN 1,750 MG/NS 500 ML 1,750 MG/500 ML BAG 250 MG IVPB (17:59)
[2025-06-11 19:27] LABS: Alveolar/Arterial O2 Gradient 72.1 mmHg; Fractional Inspired Oxygen 28 %; HCO3 ABG 28.5 mEq/l (22.0-26.0); Oxygen Content ABG 12.2 %vol (16.0-22.0); Oxygen Saturation ABG 92.5 % (95.0-100.0); PCO2 ABG 51.2 mmHg (35.0-45.0); PO2 ABG 67.1 mmHg (80.0-100.0); PO2 FiO2 Ratio Arterial Blood 2.40 %; Site Drawn RIGHT BRACHIAL
[2025-06-11 19:28] LABS: Non-Invasive Expiratory Pressure 5 CMH2O; Non-Invasive Inspiratory Pressure 10 CMH2O; Non-Invasive Vent Rate 18 /MIN
[2025-06-11] MEDS: guaiFENesin 12 HR 600 MG TABCR PO (20:09)
[2025-06-11] MEDS: ATORVASTATIN 40 MG TABLET PO (20:09)
[2025-06-11] MEDS: APIXABAN 2.5 MG TABLET PO (20:09)
[2025-06-11] MEDS: ACETAMINOPHEN 325 MG TABLET 650 MG PO (20:10)
[2025-06-11] MEDS: ARTIFICIAL TEARS OPHTH SOLN 15 ML BOTTLE 1 DROP EACH EYE (23:51)
[2025-06-11] MEDS: LORATADINE 10 MG TABLET PO (23:51)
[2025-06-12] VITALS (27 sets, daily range): BP systolic 100–130; BP diastolic 52–70; PULSE 64–117; RESP 16–30; TEMP 36.4–37.1; O2SAT 92–100
[2025-06-12 00:08] LABS: MRSA (PCR) NOT DETECTED (NOT DETECTE)
[2025-06-12] MEDS: IPRATROPIUM 0.5 MG/ALBUTEROL SULFATE 2.5 MG AMPUL.NEB 3 ML INHALATION ×4 (02:30→20:00)
[2025-06-12 04:05] LABS: Hematocrit 26.4 % (37.0-47.0); Hemoglobin 8.0 g/dL (12.0-15.0); Immature Granulocyte Percent A 0.5 % (0-0.5); Lymphocytes Absolute Auto 2.44 K/mm3 (0.9-3.2); Mean Corpuscular HGB Conc 30.3 g/dl (32-36); Mean Corpuscular Hemoglobin 30.5 pg (26-34); Mean Corpuscular Volume 100.8 fl (80-100); Nucleated Red Blood Cells Absolute Auto 0.000 K/mm3 (0.0-0.012); Nucleated Red Blood Cells Perc 0.0 % (0.0-0.2); Platelet Count Result 213 k/mm3 (150-375); Red Blood Count 2.62 M/mm3 (4.2-5.4); White Blood Count 13.4 K/mm3 (4.5-10.0)
[2025-06-12 04:21] LABS: Alanine Aminotransferase 14 U/L (6-35); Albumin Level 3.0 g/dL (3.5-5.1); Alkaline Phosphatase 53 U/L (38-126); Anion Gap 4 mmol/L (4-12); Aspartate Amino Transferase 21 U/L (14-36); Bilirubin,Total 0.5 mg/dL (0.2-1.3); Blood Urea Nitrogen 15 mg/dL (7-17); Calcium 8.1 mg/dL (8.4-10.2); Carbon Dioxide 32 mmol/L (22-30); Chloride 100 mmol/L (98-107); Estimated CRCL calculation 48 ml/min; Estimated Glomerular Filt Rate > 60; Glucose 91 mg/dL (65-110); Hemoglobin A1C 4.6 % (<5.7); Potassium 4.4 mmol/L (3.4-5.0); Sodium 136 mmol/L (137-145); Total Protein 6.0 g/dL (6.3-8.2)
[2025-06-12 05:39] LABS: Alveolar/Arterial O2 Gradient 67.3 mmHg; Fractional Inspired Oxygen 28 %; HCO3 ABG 32.2 mEq/l (22.0-26.0); Oxygen Content ABG 11.3 %vol (16.0-22.0); Oxygen Saturation ABG 92.5 % (95.0-100.0); PCO2 ABG 55.6 mmHg (35.0-45.0); PO2 ABG 66.7 mmHg (80.0-100.0); PO2 FiO2 Ratio Arterial Blood 2.38 %
[2025-06-12 05:40] LABS: Site Drawn RIGHT BRACHIAL
[2025-06-12 05:41] LABS: Non-Invasive Expiratory Pressure 5 CMH2O; Non-Invasive Inspiratory Pressure 10 CMH2O; Non-Invasive Vent Rate 18 /MIN
[2025-06-12] MEDS: UMECLIDINIUM/VILANTEROL 62.5-25 MCG ELLIPTA 1 PUFF INHALATION (08:30)
[2025-06-12] MEDS: BUDESONIDE RESPULE NEB 0.5 MG/2 ML AMP INHALATION ×2 (08:30→20:00)
--- NOTE | 2025-06-12 08:48 | PC.NURSE ---
Spoke with Yee, [employer] - reported ABG results. Advised to continue on 3LNC at this time.
[2025-06-12] MEDS: ACIDOPHILUS/BULGARICUS CHEWABLE TABLET 1 TABLET PO ×2 (08:50→16:59)
[2025-06-12] MEDS: PREGABALIN (*CRX) 75 MG CAPSULE 150 MG PO ×2 (08:51→16:58)
[2025-06-12] MEDS: PANTOPRAZOLE 40 MG TABLET PO (08:51)
[2025-06-12] MEDS: ASCORBIC ACID 500 MG TABLET PO ×2 (08:51→16:58)
[2025-06-12] MEDS: FOLIC ACID 1 MG TABLET PO (08:51)
[2025-06-12] MEDS: APIXABAN 2.5 MG TABLET PO ×2 (08:51→21:39)
[2025-06-12] MEDS: CHOLECALCIFEROL (VITAMIN D3) 25 MCG (1,000 UNITS) TABLET PO (08:51)
[2025-06-12] MEDS: MULTIVITAMINS THERAPEUTIC TAB (*BKC) 1 TABLET PO (08:51)
[2025-06-12] MEDS: FLUTICASONE PROPIONATE 0.05% NA SPR 16 GM BTL (*BKC) 1 SPRAY NASAL ×2 (08:52→21:39)
[2025-06-12] MEDS: FUROSEMIDE 40 MG TABLET PO (08:52)
[2025-06-12] MEDS: guaiFENesin 12 HR 600 MG TABCR PO ×2 (08:52→21:39)
[2025-06-12] MEDS: ARTIFICIAL TEARS OPHTH SOLN 15 ML BOTTLE 1 DROP EACH EYE ×2 (08:53→21:40)
[2025-06-12] MEDS: OMEGA 3 POLYUNSAT FATTY ACIDS 1 GM CAP PO (08:56)
--- NOTE | 2025-06-12 08:59 | P.PNIM_ITS ---
Progress Note: A&P Assessment and Plan (1) Sepsis: Qualifiers: Acute respiratory failure type: with hypercapnia Sepsis acute organ dysfunction status: with acute organ dysfunction Sepsis type: sepsis due to uns pecified organism Severe sepsis acute organ dysfunction type: acute respiratory failure Severe sepsis shock status: unspecified Qualified Code(s): A41.9 - Sepsis, unspecified organism; R65.20 - Severe sepsis without septic shock; J96.02 - Acute respiratory failure with hypercapnia Code(s): A41.9 - Sepsis, unspecified organism Status: Acute Assessment and Plan: Concern for sepsis due to significant hypotension, 79/47 upon arrival increasing concerns for shock. has responded to IV fluids. - lactic acid: 1.9 - 30 mL/kg = 2.1, 1.5 L given due to CHF history. Tolerated well. 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 atypical mycobacterial infection), organizing pneumonia and chronic inflammatory conditions such as sarcoidosis or vasculitis. - admission to IMU for close hemodynamic monitoring, BP remains soft, improved --Check CT chest/abd/pelvis with recent diverticulitis and now pneumonia (2) Acute on chronic respiratory failure with hypoxia and hypercapnia: Code(s): J96.21 - Acute and chronic respiratory failure with hypoxia; J96.22 - Acute and chronic respiratory failure with hypercapnia Status: Acute Assessment and Plan: Patient reportedly non compliant with her supplemental oxygen that she is supposed to be on at baseline, 3 L nasal cannula. Has history of COPD and chronic interstitial lung disease. Despite replacement of nasal cannula at the patient's facility, the patient remained altered. Initial ABG significant for a CO2 of 64.7. She was placed on BiPAP in the ED on 06/11. Will plan for repeat ABG this evening, if CO2 improved to baseline will titrate patient to nasal cannula. Will continue supplemental oxygen to maintain O2 sat greater than 92%, may wean to 3L nasal cannula. ABG 06/04 7.315/64.7/85.8/32.3. Repeat ABG CO2 of 51.2, continued BiPAP. ABG's this morning still hypercarbic but not acidotic --pulmonary consult (3) Altered mental status: Qualifiers: Altered mental status type: disorientation Qualified Code(s): R41.0 - Disorientation, unspecified Code(s): R41.82 - Altered mental status, unspecified Status: Acute Assessment and Plan: Check head CT >> no acute intracranial abnormality, chronic left cerebellar and lacunar infarctions CO2 elevated, suspect CO2 narcosis as etiology for patient's alteration due to noncompliance with supplemental O2. Started on BiPAP on 06/11, plan for repeat ABG. - significant leukocytosis of 23.2, when compared to previous the patient was 12.4 on 05/05. CXR concerning for superimposed pneumonia, see plan below. May be contributing to patient's alteration via metabolic encephalopathy. Patient additionally has had chronic diarrhea since April and endorsing lower abdominal pain, checking CT. Has history of diverticulitis with abscess and septic shock. - neurological checks q.6 - reviewed home medications. hold baclofen, Benadryl, Mosca, trazodone until mental status improved. (4) Pneumonia: Qualifiers: Laterality: bilateral Lung location: lower lobe of lung Pneumonia type: due to unspecified organism Qualified Code(s): J18.9 - Pneumonia, unspecified organism Code(s): J18.9 - Pneumonia, unspecified organism Status: Acute Assessment and Plan: See CXR impression above - risk factors and complicating factors: CO2 narcosis, previously positive MRSA, ILD - started on Levaquin and vancomycin on 06/11. Change Vanc to doxy - check MRSA PCR, previously positive on 04/23/2025 - Viral PCR completed on 06/11 >> negative - check sputum culture, Legionella, mycoplasma, pneumococcal - supportive care: Mucinex aaliyah, Tessalon Perles p.r.n., Tylenol p.r.n., DuoNebs aaliyah (5) Diarrhea: Qualifiers: Diarrhea type: unspecified type Qualified Code(s): R19.7 - Diarrhea, unspecified Code(s): R19.7 - Diarrhea, unspecified Status: Acute Assessment and Plan: Patient has history of diverticulitis with abscess and septic shock in April of 2025. During this admission she does not negative for C diff. diarrhea has been persistent since April and is currently being treated with Lomotil and Metamucil outpatient. Will continue both medications. - No abdominal pain or diarrhea today. Hold off on stool studies. Had a formed BM per RN. --CT since recent diverticulitis - hold MiraLax and magnesium citrate (6) COPD (chronic obstructive pulmonary disease): Qualifiers: COPD type: unspecified COPD Qualified Code(s): J44.9 - Chronic obstructive pulmonary disease, unspecified Code(s): J44.9 - Chronic obstructive pulmonary disease, unspecified Status: Chronic Assessment and Plan: Rare wheezing on exam, patient did not endorse a productive cough decreasing concerns for a acute exacerbation of COPD - DuoNeb scheduled - started on broad-spectrum antibiotics due to concern for pneumonia (7) CHF (congestive heart failure): Qualifiers: Heart failure chronicity: chronic Heart failure type: unspecified Qualified Code(s): I50.9 - Heart failure, unspecified Code(s): I50.9 - Heart failure, unspecified Status: Chronic Assessment and Plan: No evidence of pulmonary edema on CXR or on clinical exam Most recent echo (2022): Normal LV size with mild concentric hypertrophy, EF 60 65%, grade 1 diastolic dysfunction, mild valvular disease noted, mild pulmonary hypertension. See report for details. home medication: Lasix 40 mg daily - monitor I&Os and daily weights - trend renal function (8) Anemia of chronic disease: Code(s): D63.8 - Anemia in other chronic diseases classified elsewhere Status: Chronic Assessment and Plan: Hgb 9.8, previously 10.4 on 05/05/2025 - transfuse if <7 - monitor (9) HTN (hypertension): Qualifiers: Hypertension type: unspecified Qualified Code(s): I10 - Essential (primary) hypertension Code(s): I10 - Essential (primary) hypertension Status: Chronic Assessment and Plan: Chronic. Significantly hypotensive upon arrival on 06/11 with a blood pressure of 79/47. Improved with IV fluids, currently 92/60. - hold home medications including: Coreg - monitor (10) Prediabetes: Code(s): R73.03 - Prediabetes Status: Chronic Assessment and Plan: - no A1C on file, BS was 145 upon arrival. Check A1c. Plan Per POA patient has been experiencing multiple e. coli UTIs. She reports they have been resistant previously. UA showed 1+ leuks, otherwise unremarkable. UC was obtained, follow. Diet: Heart healthy GI Prophylaxis: N/a DVT Prophylaxis: Eliquis IV fluids: 1.5 L Lines/Tubes: Peripheral IV Code Status: Modified Code - no intubation, no CPR, meds only Time Spent With Patient Time: 52 minutes Subjective Date/time seen: 06/12/25 08:59 Interval history: Confused this morning. 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 From [facility] All systems reviewed & are unremarkable except as noted in HPI and below (Limited, altered) Exam Narrative: General - Awake and alert. No acute distress Eyes - PERRLA, EOM intact ENT - No thrush, No erythema Neck - No noticeable or palpable swelling Lymph Nodes - No lymphadenopathy Cardiovascular - RRR no m/r/g, no JVD Lungs: Rare wheezing on exam, no use of accessory muscles, no crackles Skin - Skin warm and dry, no wounds or rashes Abdomen - Normal bowel sounds, abdomen soft and nontender Extremities - No edema, cyanosis or clubbing Musculoskeletal - 5/5 strength, normal range of motion, no swollen or erythematous joints. Neurological ? Alert and oriented x 3, CN 2-12 grossly intact. Psych: Normal mood and affect Objective Data Vital Signs Vital Signs: Vital Signs - 24 hr 06/11/25 13:08 06/11/25 13:19 06/11/25 13:21 Temperature 98.6 F Pulse Rate 82 81 105 H Respiratory Rate 18 17 16 Blood Pressure 79/47 L 74/54 L Pulse Oximetry 95 98 100 Oxygen Delivery Nasal Cannula Oxygen Flow Rate 3 Fraction of Inspired Oxygen 06/11/25 13:22 06/11/25 14:07 06/11/25 14:14 Temperature Pulse Rate 135 H 78 83 Respiratory Rate 14 14 17 Blood Pressure 79/47 L Pulse Oximetry 99 Oxygen Delivery Oxygen Flow Rate Fraction of Inspired Oxygen 06/11/25 14:21 06/11/25 14:25 06/11/25 14:30 Temperature Pulse Rate 74 74 75 Respiratory Rate 15 15 15 Blood Pressure 88/57 L Pulse Oximetry 100 100 Oxygen Delivery Oxygen Flow Rate Fraction of Inspired Oxygen 06/11/25 14:31 06/11/25 14:42 06/11/25 14:45 Temperature Pulse Rate 77 75 Respiratory Rate 15 18 13 Blood Pressure Pulse Oximetry 99 95 92 Oxygen Delivery BiPAP Oxygen Flow Rate Fraction of Inspired Oxygen 06/11/25 14:51 06/11/25 14:52 06/11/25 15:00 Temperature Pulse Rate 78 75 74 Respiratory Rate 14 15 16 Blood Pressure 93/64 L 125/67 Pulse Oximetry 95 94 95 Oxygen Delivery Oxygen Flow Rate Fraction of Inspired Oxygen 06/11/25 15:11 06/11/25 15:16 06/11/25 15:21 Temperature Pulse Rate 74 75 76 Respiratory Rate 14 14 15 Blood Pressure 113/66 106/70 Pulse Oximetry 97 98 100 Oxygen Delivery Oxygen Flow Rate Fraction of Inspired Oxygen 06/11/25 15:32 06/11/25 15:45 06/11/25 15:51 Temperature Pulse Rate 72 74 73 Respiratory Rate 14 16 16 Blood Pressure 92/60 L Pulse Oximetry 99 97 98 Oxygen Delivery Oxygen Flow Rate Fraction of Inspired Oxygen 06/11/25 15:52 06/11/25 16:00 06/11/25 16:00 Temperature Pulse Rate 74 74 Respiratory Rate 15 16 20 Blood Pressure Pulse Oximetry 97 98 97 Oxygen Delivery BiPAP Oxygen Flow Rate Fraction of Inspired Oxygen 06/11/25 16:01 06/11/25 16:20 06/11/25 17:18 Temperature Pulse Rate 74 78 80 Respiratory Rate 16 14 25 H Blood Pressure 94/55 L Pulse Oximetry 98 95 97 Oxygen Delivery BiPAP Oxygen Flow Rate Fraction of Inspired Oxygen 06/11/25 17:29 06/11/25 18:00 06/11/25 19:33 Temperature 98.6 F Pulse Rate 80 80 77 Respiratory Rate 22 H 20 Blood Pressure 130/99 H Pulse Oximetry 98 93 Oxygen Delivery BiPAP Oxygen Flow Rate Fraction of Inspired Oxygen 06/11/25 20:00 06/11/25 20:00 06/11/25 20:00 Temperature 98.8 F Pulse Rate 83 77 Respiratory Rate 18 Blood Pressure 103/63 Pulse Oximetry 95 98 Oxygen Delivery BiPAP Oxygen Flow Rate Fraction of Inspired Oxygen 06/11/25 22:00 06/11/25 22:55 06/11/25 23:57 Temperature Pulse Rate 76 72 74 Respiratory Rate 19 Blood Pressure Pulse Oximetry 92 Oxygen Delivery BiPAP Oxygen Flow Rate Fraction of Inspired Oxygen 06/12/25 00:00 06/12/25 00:00 06/12/25 02:30 Temperature 98.7 F Pulse Rate 68 66 Respiratory Rate 18 21 H Blood Pressure 104/57 L Pulse Oximetry 92 98 Oxygen Delivery BiPAP Oxygen Flow Rate Fraction of Inspired Oxygen 06/12/25 02:30 06/12/25 02:31 06/12/25 02:54 Temperature Pulse Rate 66 117 H 69 Respiratory Rate 21 H 20 Blood Pressure Pulse Oximetry 95 Oxygen Delivery BiPAP Oxygen Flow Rate Fraction of Inspired Oxygen 06/12/25 04:00 06/12/25 04:00 06/12/25 04:00 Temperature 98.6 F Pulse Rate 69 72 Respiratory Rate 18 Blood Pressure 113/56 L Pulse Oximetry 95 93 Oxygen Delivery BiPAP Oxygen Flow Rate Fraction of Inspired Oxygen 06/12/25 05:30 06/12/25 06:00 06/12/25 07:00 Temperature Pulse Rate 64 108 H Respiratory Rate 18 Blood Pressure Pulse Oximetry 93 97 Oxygen Delivery BiPAP High Flow Nasal Cannula Oxygen Flow Rate 3 Fraction of Inspired Oxygen 06/12/25 07:59 Temperature 98.2 F Pulse Rate 74 Respiratory Rate 20 Blood Pressure 130/70 Pulse Oximetry 100 Oxygen Delivery Oxygen Flow Rate Fraction of Inspired Oxygen Intake/Output Intake/Output: Intake & Output 06/09/25 06/10/25 06/11/25 06/12/25 23:59 23:59 23:59 23:59 Intake Total 2000 250 Output Total 200 Balance 1800 250 Meds/Results Medications: Active Medications Generic Name Dose Route Start Last Admin Trade Name Freq PRN Reason Stop Dose Admin Acetaminophen 650 mg 06/11/25 16:14 06/11/25 20:10 Acetaminophen 325 Mg Tablet PO 650 mg Q6H PRN Administration Mild Pain (1-3) or Fever Albuterol/Ipratropium 3 ml 06/12/25 02:00 06/12/25 02:30 Ipratropium 0.5 Mg/Albuterol Sulfate 2.5 Mg Ampul.Neb 3 Ml INHALATION 3 ml Q6HRT AALIYAH Administration Lipase/Protease/Amylase 4 cap 06/12/25 08:00 Lipase/Amylase/Protease 12,000 Units Cap PO TIDWM AALIYAH Apixaban 2.5 mg 06/12/25 09:00 06/12/25 08:51 Apixaban 2.5 Mg Tablet PO 2.5 mg Q12HR AALIYAH Administration Artificial Tears 1 drop 06/11/25 21:00 06/12/25 08:53 Artificial Tears Ophth Soln 15 Ml Bottle EACH EYE 1 drop Q12HR AALIYAH Administration Ascorbic Acid 500 mg 06/12/25 09:00 06/12/25 08:51 Ascorbic Acid 500 Mg Tablet PO 500 mg BID AALIYAH Administration Atorvastatin Calcium 40 mg 06/11/25 18:00 06/11/25 20:09 Atorvastatin 40 Mg Tablet PO 40 mg QPM AALIYAH Administration Benzonatate 100 mg 06/11/25 16:14 Benzonatate 100 Mg Capsule PO TID PRN Cough Bisacodyl 10 mg 06/11/25 16:17 Bisacodyl 10 Mg Suppository RECTAL DAILY PRN Constipation Budesonide 0.5 mg 06/12/25 08:00 Budesonide Respule Neb 0.5 Mg/2 Ml Amp INHALATION Q12HRT [facility] Bupropion HCl 75 mg 06/12/25 09:00 06/12/25 08:51 Bupropion Hcl 75 Mg Tablet PO 75 mg DAILY [facility] Administration Diclofenac Sodium 1 applic 06/12/25 09:00 Diclofenac Sodium 1% 100 Gm Gel (*Bkc) TOPICAL Q12HR [facility] Diclofenac Sodium 50 mg 06/11/25 21:53 Diclofenac Sod 25 Mg Tablet.Ec PO Q12H PRN Inflammation Fish Oil 1 gm 06/12/25 09:00 06/12/25 08:56 [place] 3 Polyunsat Fatty Acids 1 Gm Cap PO 1 gm DAILY AALIYAH Administration Fluticasone Propionate 1 spray 06/12/25 09:00 06/12/25 08:52 Fluticasone Propionate 0.05% Na Spr 16 Gm Btl (*Bkc) NASAL 1 spray Q12HR [facility] Administration Folic Acid 1 mg 06/12/25 09:00 06/12/25 08:51 Folic Acid 1 Mg Tablet PO 1 mg DAILY AALIYAH Administration Furosemide 40 mg 06/12/25 09:00 06/12/25 08:52 Furosemide 40 Mg Tablet PO 40 mg QAM AALIYAH Administration Guaifenesin 600 mg 06/11/25 21:00 06/12/25 08:52 Guaifenesin 12 Hr 600 Mg Tabcr PO 600 mg Q12HR AALIYAH Administration Hydrocortisone 1 applic 06/11/25 21:53 Hydrocortisone 2.5% Cream 30 Gm Tube TOPICAL QID PRN Itching Levofloxacin/Dextrose 750 mg in 150 mls @ 100 mls/hr 06/13/25 15:00 Levaquin 750 Mg/D5w 150 Ml IVPB Q48H AALIYAH Vancomycin HCl 1,500 mg in 500 mls @ 250 mls/hr 06/12/25 18:00 Vancomycin 1,500 Mg/Ns 500 Ml IVPB Q24H AALIYAH Lactobacillus Acidophilus 1 tablet 06/12/25 09:00 06/12/25 08:50 Acidophilus/Bulgar[place] Chewable Tablet PO 1 tablet BID AALIYAH Administration Loperamide HCl 2 mg 06/11/25 21:53 Loperamide Hcl 2 Mg Capsule PO Q12H PRN Diarrhea Loratadine 10 mg 06/11/25 22:15 06/11/25 23:51 Loratadine 10 Mg Tablet PO 10 mg QHS AALIYAH Administration Methotrexate 7.5 mg 06/15/25 09:00 Methotrexate 2.5 Mg Tab (*Chemo) PO WEEKLY [facility] Miscellaneous Information 0 each 06/11/25 00:01 Hydrocortisone/Triamcinolone Add Site Of Use For Each XX 07/11/25 00:00 CLARIFY AALIYAH Multi-Ingred Cream/Lotion/Oil/Oint 1 applic 06/12/25 09:00 Eucerin Cream 120 Gm Jar TOPICAL DAILY AALIYAH Multivitamins Therapeutic 1 tablet 06/12/25 09:00 06/12/25 08:51 Multivitamins Therapeutic Tab (*Bkc) PO 1 tablet DAILY AALIYAH Administration Pantoprazole Sodium 40 mg 06/12/25 09:00 06/12/25 08:51 Pantoprazole 40 Mg Tablet PO 40 mg QAM AALIYAH Administration Phenyleph/Shark Oil/Min Oil/Petrol 1 applic 06/11/25 21:53 Phenyleph/Shark Oil/Mo/Petrol Cream 26 Gm RECTAL BID PRN Hemorrhoids Pregabalin 150 mg 06/12/25 09:00 06/12/25 08:51 Pregabalin (*Crx) 75 Mg Capsule PO 150 mg BID AALIYAH Administration Senna 8.6 mg 06/12/25 09:00 06/12/25 08:50 Sennosides 8.6 Mg Tablet PO Not Given Q12HR [facility] Triamcinolone Acetonide 1 applic 06/12/25 09:00 Triamcinolone Acet 0.1% Cream 15 Gm Tube TOPICAL Q12HR [facility] Umeclidinium/Vilanterol 1 puff 06/12/25 08:00 Umeclidinium/Vilanterol 62.5-25 Mcg Ellipta INHALATION DAILYRT [facility] Vitamin D 25 mcg 06/12/25 09:00 06/12/25 08:51 Cholecalciferol (Vitamin D3) 25 Mcg (1,000 Units) Tablet PO 25 mcg DAILY AALIYAH Administration Radiology Results: ITS Impressions Chest X-Ray 06/11/25 14:51 Impression: 1: Chronic multifocal airspace disease, differential diagnosis includes chronic infection (e.G. atypical mycobacterial infection), organizing pneumonia and chronic inflammatory conditions such as sarcoidosis or vasculitis. Head CT 06/11/25 17:22 IMPRESSION: 1. No acute intracranial abnormality. 2: Chronic left cerebellar and lacunar infarctions. Labs Labs: Laboratory Results - last 24 hr 06/11/25 06/11/25 06/11/25 13:31 13:48 14:14 WBC 23.2 H RBC 3.20 L Hgb 9.8 L Hct 32.1 L MCV 100.3 H MCH 30.6 MCHC 30.5 L RDW 16.1 H Plt Count 285 MPV 11.7 H Immature Gran % (Auto) Not Reportable Neut % (Auto) Not Reportable Lymph % (Auto) Not Reportable [place] % (Auto) Not Reportable Eos % (Auto) Not Reportable Baso % (Auto) Not Reportable Lymph # (Auto) Not Reportable [place] # (Auto) Not Reportable Eos # (Auto) Not Reportable Baso # (Auto) Not Reportable Abs Immat Gran (auto) Not Reportable Absolute Neuts (auto) Not Reportable Absolute Nucleated RBC Not Reportable Total Counted 100 Neutrophils % (Manual) 81 H Band Neutrophils % 3 Lymphocytes % (Manual) 15.0 L Basophils % (Manual) 1 Nucleated RBC % Not Reportable Abs Neuts (Manual) 19.48 H Abs Lymphs (Manual) 3.48 Abs Basophils (Manual) 0.23 H Platelet Estimate Adequate Hypochromasia 1+ Anisocytosis 2+ Macrocytosis 1+ Schistocytes None seen PT 17.1 H INR 1.4 APTT 54.8 H Puncture Site Right brachial ABG pH 7.316 L ABG pCO2 64.7 H* ABG pO2 85.8 ABG PO2/FiO2 Ratio 3.06 ABG HCO3 32.3 H ABG O2 Saturation 95.4 ABG O2 Content 13.8 L ABG Base Excess 4.8 A-a Gradient 37.5 Oxyhemoglobin 94.2 Carboxyhemoglobin 0.7 Methemoglobin 0.4 Reduced Hemoglobin 4.7 Total Hemoglobin 10.3 L O2 Delivery Device Nasal cannula O2 Liters/Min 2.0 Vent Rate FiO2 28 Expiratory Pressure Inspiratory Pressure Sodium 138 Potassium 4.9 Chloride 100 Carbon Dioxide 31 H Anion Gap 7 BUN 17 Creatinine 0.93 Estim Creat Clear Calc 40 Estimated GFR 58 L Glucose 145 H Hemoglobin A1c Lactic Acid Calcium 8.6 Total Bilirubin 0.5 AST 29 ALT 23 Alkaline Phosphatase 57 C-Reactive Protein 7.2 H Total Protein 7.1 Albumin 3.6 Urine Color Yellow Urine Appearance Clear Urine pH 6.0 Ur Specific [place] 1.016 Urine Protein Negative Urine Glucose (UA) Negative Urine Ketones Trace H Ur Blood (Man) Negative Urine Nitrate Negative Urine Bilirubin Negative Urine Urobilinogen 1.0 Add Ur Microanalysis Reviewed Leukocyte Esterase Rfl 1+ H Urine RBC 0-2 Urine WBC 0-5 Ur Squamous Epith Cells None seen Urine Bacteria None seen Urine Casts 0-2 Nasal MRSA (PCR) Influenza A (RT-PCR) Influenza B (RT-PCR) RSV (RT-PCR) SARS-CoV-2 RNA (RT-PCR) Urine Pneumococcal Ag 06/11/25 06/11/25 06/11/25 15:36 15:39 19:15 WBC RBC Hgb Hct MCV MCH MCHC RDW Plt Count MPV Immature Gran % (Auto) Neut % (Auto) Lymph % (Auto) [place] % (Auto) Eos % (Auto) Baso % (Auto) Lymph # (Auto) [place] # (Auto) Eos # (Auto) Baso # (Auto) Abs Immat Gran (auto) Absolute Neuts (auto) Absolute Nucleated RBC Total Counted Neutrophils % (Manual) Band Neutrophils % Lymphocytes % (Manual) Basophils % (Manual) Nucleated RBC % Abs Neuts (Manual) Abs Lymphs (Manual) Abs Basophils (Manual) Platelet Estimate Hypochromasia Anisocytosis Macrocytosis Schistocytes PT INR APTT Puncture Site Right brachial ABG pH 7.364 ABG pCO2 51.2 H ABG pO2 67.1 L ABG PO2/FiO2 Ratio 2.40 ABG HCO3 28.5 H ABG O2 Saturation 92.5 L ABG O2 Content 12.2 L ABG Base Excess 2.6 A-a Gradient 72.1 Oxyhemoglobin 90.9 Carboxyhemoglobin Methemoglobin Reduced Hemoglobin Total Hemoglobin 9.5 L O2 Delivery Device Non-invasive vent O2 Liters/Min Not Reportable Vent Rate 18 FiO2 28 Expiratory Pressure 5 Inspiratory Pressure 10 Sodium Potassium Chloride Carbon Dioxide Anion Gap BUN Creatinine Estim Creat Clear Calc Estimated GFR Glucose Hemoglobin A1c Lactic Acid 1.9 Calcium Total Bilirubin AST ALT Alkaline Phosphatase C-Reactive Protein Total Protein Albumin Urine Color Urine Appearance Urine pH Ur Specific [place] Urine Protein Urine Glucose (UA) Urine Ketones Ur Blood (Man) Urine Nitrate Urine Bilirubin Urine Urobilinogen Add Ur Microanalysis Leukocyte Esterase Rfl Urine RBC Urine WBC Ur Squamous Epith Cells Urine Bacteria Urine Casts Nasal MRSA (PCR) Influenza A (RT-PCR) Negative Influenza B (RT-PCR) Negative RSV (RT-PCR) Negative SARS-CoV-2 RNA (RT-PCR) Negative Urine Pneumococcal Ag 06/11/25 06/11/25 06/12/25 22:25 22:40 03:24 WBC 13.4 H RBC 2.62 L Hgb 8.0 L Hct 26.4 L MCV 100.8 H MCH 30.5 MCHC 30.3 L RDW 16.7 H Plt Count 213 MPV 12.2 H Immature Gran % (Auto) 0.5 Neut % (Auto) 69.7 Lymph % (Auto) 18.2 L [place] % (Auto) 9.2 H Eos % (Auto) 2.2 Baso % (Auto) 0.2 Lymph # (Auto) 2.44 [place] # (Auto) 1.2 H Eos # (Auto) 0.3 Baso # (Auto) 0.0 Abs Immat Gran (auto) 0.07 H Absolute Neuts (auto) 9.3 H Absolute Nucleated RBC 0.000 Total Counted Neutrophils % (Manual) Band Neutrophils % Lymphocytes % (Manual) Basophils % (Manual) Nucleated RBC % 0.0 Abs Neuts (Manual) Abs Lymphs (Manual) Abs Basophils (Manual) Platelet Estimate Hypochromasia Anisocytosis Macrocytosis Schistocytes PT INR APTT Puncture Site ABG pH ABG pCO2 ABG pO2 ABG PO2/FiO2 Ratio ABG HCO3 ABG O2 Saturation ABG O2 Content ABG Base Excess A-a Gradient Oxyhemoglobin Carboxyhemoglobin Methemoglobin Reduced Hemoglobin Total Hemoglobin O2 Delivery Device O2 Liters/Min Vent Rate FiO2 Expiratory Pressure Inspiratory Pressure Sodium 136 L Potassium 4.4 Chloride 100 Carbon Dioxide 32 H Anion Gap 4 BUN 15 Creatinine 0.77 Estim Creat Clear Calc 48 Estimated GFR > 60 Glucose 91 Hemoglobin A1c 4.6 Lactic Acid Calcium 8.1 L Total Bilirubin 0.5 AST 21 ALT 14 Alkaline Phosphatase 53 C-Reactive Protein Total Protein 6.0 L Albumin 3.0 L Urine Color Urine Appearance Urine pH Ur Specific [place] Urine Protein Urine Glucose (UA) Urine Ketones Ur Blood (Man) Urine Nitrate Urine Bilirubin Urine Urobilinogen Add Ur Microanalysis Leukocyte Esterase Rfl Urine RBC Urine WBC Ur Squamous Epith Cells Urine Bacteria Urine Casts Nasal MRSA (PCR) Not detected Influenza A (RT-PCR) Influenza B (RT-PCR) RSV (RT-PCR) SARS-CoV-2 RNA (RT-PCR) Urine Pneumococcal Ag Cancelled 06/12/25 05:27 WBC RBC Hgb Hct MCV MCH MCHC RDW Plt Count MPV Immature Gran % (Auto) Neut % (Auto) Lymph % (Auto) [place] % (Auto) Eos % (Auto) Baso % (Auto) Lymph # (Auto) [place] # (Auto) Eos # (Auto) Baso # (Auto) Abs Immat Gran (auto) Absolute Neuts (auto) Absolute Nucleated RBC Total Counted Neutrophils % (Manual) Band Neutrophils % Lymphocytes % (Manual) Basophils % (Manual) Nucleated RBC % Abs Neuts (Manual) Abs Lymphs (Manual) Abs Basophils (Manual) Platelet Estimate Hypochromasia Anisocytosis Macrocytosis Schistocytes PT INR APTT Puncture Site Right brachial ABG pH 7.380 ABG pCO2 55.6 H ABG pO2 66.7 L ABG PO2/FiO2 Ratio 2.38 ABG HCO3 32.2 H ABG O2 Saturation 92.5 L ABG O2 Content 11.3 L ABG Base Excess 6.1 A-a Gradient 67.3 Oxyhemoglobin 90.5 Carboxyhemoglobin Methemoglobin Reduced Hemoglobin Total Hemoglobin 8.8 L O2 Delivery Device Non-invasive vent O2 Liters/Min Not Reportable Vent Rate 18 FiO2 28 Expiratory Pressure 5 Inspiratory Pressure 10 Sodium Potassium Chloride Carbon Dioxide Anion Gap BUN Creatinine Estim Creat Clear Calc Estimated GFR Glucose Hemoglobin A1c Lactic Acid Calcium Total Bilirubin AST ALT Alkaline Phosphatase C-Reactive Protein Total Protein Albumin Urine Color Urine Appearance Urine pH Ur Specific [place] Urine Protein Urine Glucose (UA) Urine Ketones Ur Blood (Man) Urine Nitrate Urine Bilirubin Urine Urobilinogen Add Ur Microanalysis Leukocyte Esterase Rfl Urine RBC Urine WBC Ur Squamous Epith Cells Urine Bacteria Urine Casts Nasal MRSA (PCR) Influenza A (RT-PCR) Influenza B (RT-PCR) RSV (RT-PCR) SARS-CoV-2 RNA (RT-PCR) Urine Pneumococcal Ag Quality VTE Prophylaxis VTE prophylaxis: pharmacologic ordered Hospitalist MIPS Advance Care Plan I have confirmed that the patient's Advanced Care Plan is present, code status is documented, or surrogate decision maker is listed in patient medical record.: Yes Medication Reconciliation I have utilized all available resources to obtain, update and review the patients current medications (includes all prescriptions, OTC, herbals, cannabis, and nutritional supplements).: Yes
[2025-06-12 12:21] LABS: Alveolar/Arterial O2 Gradient 69.6 mmHg; Fractional Inspired Oxygen 28 %; HCO3 ABG 33.4 mEq/l (22.0-26.0); Oxygen Content ABG 11.7 %vol (16.0-22.0); Oxygen Saturation ABG 92.9 % (95.0-100.0); PCO2 ABG 54.1 mmHg (35.0-45.0); PO2 ABG 66.2 mmHg (80.0-100.0); PO2 FiO2 Ratio Arterial Blood 2.36 %
[2025-06-12 12:22] LABS: Modified Allen's Test Pass; Site Drawn RIGHT RADIAL
[2025-06-12 12:23] LABS: Liters per Minute 2.0 LPM
--- NOTE | 2025-06-12 13:18 | PM.CNPUL ---
Assessment and Plan Assessment and plan (1) Recurrent pneumonia: Code(s): J18.9 - Pneumonia, unspecified organism Status: Acute Assessment and Plan: Doxycycline and vancomycin, suspected pneumonia, now coughing with sputum production. She may have silent aspiration; recurrent pneumonias over last 3 months. History of dementia and several TIAs. Speech Evaluation / Mod Barium Swallow tomorrow NPO after midnight (2) COPD (chronic obstructive pulmonary disease): Qualifiers: COPD type: unspecified COPD Qualified Code(s): J44.9 - Chronic obstructive pulmonary disease, unspecified Code(s): J44.9 - Chronic obstructive pulmonary disease, unspecified Status: Chronic Assessment and Plan: GOLD grade 2 group E COPD. Continue Anoro 1inh daily and albuterol neb PRN q6hrs. Last pulmonary function test 02/02/2023 FEV1 0.81 L, 43% extremely low; FEV1% = 46% consistent with airflow obstruction TLC 107%, residual volume 2.78 L, 120% (3) ILD (interstitial lung disease): Code(s): J84.9 - Interstitial pulmonary disease, unspecified Status: Chronic Assessment and Plan: This was first noted chest CT 05/07/2013 patchy bibasilar linear airspace disease. Serologies negative 01/2019 (Anti-Centromere neg, dsDNA neg, MOHSEN neg, Jo1 neg, Anti-HOTEL BREAKFAST ATTENDANT neg, SCL-70 neg, Anti-SSA/B neg, RF neg. DLCO - 4.7, 25% predicted, DLCO/VA - 3.63, 87% predicted. Sept 11, [address] - Bilateral patchy consolidation with coarse interstitial changes predominantly affecting the upper lobes. There is associated interlobular septal thickening and mild bronchiectasis of the lingula. Differential diagnosis includes chronic infection, chronic interstitial lung disease and postinflammatory scarring/fibrosis. (4) Acute on chronic respiratory failure with hypoxia and hypercapnia: Code(s): J96.21 - Acute and chronic respiratory failure with hypoxia; J96.22 - Acute and chronic respiratory failure with hypercapnia Status: Acute Assessment and Plan: She had mild acute on chronic respiratory acidosis on admission, pH was slightly low, pCO2 running in the 50s. At home normally wears 3L around the clock, was found off oxygen with low saturation and decreased level of consciousness, did not respond or return to normal functioning when oxygen was applied. SHE has no memory of what happened prior to admission due to hypoxemia and poor brain function. She is on 3 L/min with sat 94-97% Continue oxygen use, she benefits from this, has been on O2 for several years. She iwll need Home O2 study prior to discharge. I spoke with her granddaughter, Stefanie Finney, who understands what is going on, had no questions. Plan plan: Speech Evaluation tomorrow, r/o silent aspiration with recurrent pneumonia. Recurrent aspiration can worsen ILD. She is too debilitated to be a candidate for anti-fibrotics, and the side effect profile is not going to be tolerated with her acute sigmoid diverticulitis and possible sigmoid mass. Vancomycin and doxycycline to cover pneumonia in patient with recent admissions. Bronchodilator therapy. Mucolytics -Mucomyst 20% nebulized b.i.d., see if she has any significant response, if not we may discontinue tomorrow.. Cornet valve, positive expiratory pressure to help clear secretions. Send sputum for Gram stain, C&S, fungal and AFB studies. Orders entered. History of Present Illness History of Present Illness Consult date: 06/12/25 Requesting physician: Yee Kapadia APRN Chief complaint: Pneumonia/Hypercapnia Narrative: patient was seen Jun 12, 2025 at 17:35 Room 203 IMU NEW: Gabbi Champagne is an 80-year-old woman admitted June 11 with altered level of consciousness after being [facility]. She was hypotensive, blood pressure 79/47; she was placed on O2 with some improvement in mentation. She had an elevated white blood cell count of 23.2 K and moderate elevation in pCO2 64.7. She is not able to remember much about what was happening before she was admitted. She says that she had no cough, wheezing, shortness of breath or sputum. Today she had coughing with moderate amounts of sputum, sitting in tissue on bedside table. She said that this is new, rarely has this at home. She does not recall having the O2 off, does not remember having abdominal pain or loose stools. She apparently meets criteria for sepsis with significant hypotension, 79/47, in ED, lactic acid 1., suspected source is pneumonia. Her CXR is abnormal, but she has interstitial lung disease diagnosed several years ago, imaging is slightly worse than a few months ago. Due to having recurrent pneumonia requiring admission 3 times since March, I will request Speech Evaluation to exclude silent aspiration especially with her history of strokes and dementia. I will order QuantiFERON gold for M tb. She had a negative MOHSEN cascade in 2021, decreasing the likelihood that her infiltrates are due to vasculitis or other autoimmune condition. Radiologist includes in the differential chronic infection, organizing pneumonia, chronic inflammatory conditions such as sarcoidosis or vasculitis. Sarcoidosis is often a diagnosis of exclusion, and sarcoidosis for requires biopsy of a nodule or lymph node to confirm noncaseating granulomas. I believe that the radiologist was thorough in the interpretation, however this 80 year woman does not need a biopsy of anything at this time to pursue one of these diagnoses. She is known to our service, last office visit April 18, 2024, for COPD, hypoxemic and hypercapnic respiratory failure on O2 @3L/min, interstitial lung disease, restless legs syndrome, and PE. She has been living at [facility]. She [facility] lived [facility] since age 65 due to abusing her narcotics. She has some shortness of breath due to anxiety. At that visit she was on Anoro 1 puff daily and nebulized albuterol p.r.n. about once a day for shortness of breath. She tells me that she has sensitivity to cats, does not live with cats; may have allergic reactions to other substances but can not identify any of these, does not think she has problems with pollen, grass, trees or dust. She had 2 admissions over the summer, March 19 until April 01 for diverticular disease with pneumonia April 18 through the for decreased mental status, hypotensive; central line with pressors overdose of opioids Narcan and help but did not sustain alertness, diverticulitis, hypercapnic hypoxemic respiratory failure, [facility] on Aug[facility]. 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 PMH: pulmonary embolism, pulmonary arterial hypertension, chronic interstitial lung disease, peripheral vascular disease, CVA, anemia of chronic disease, hyperlipidemia, hypertension, chronic respiratory failure with hypoxia and hypercapnia on 3L nasal cannula, COPD, CHF, osteoporosis, anxiety/depression, dementia, pancreatitis, and previous GI bleed. C diff in 2020. . DATA * 06/12/[address]; Bilateral patchy consolidation with coarse interstitial changes predominantly affecting the upper lobes. There is associated interlobular septal thickening and mild bronchiectasis of the lingula. Differential diagnosis includes chronic infection, chronic interstitial lung disease and postinflammatory scarring/fibrosis. 2: Acute sigmoid diverticulitis with possible small peridiverticular abscess. Cannot exclude underlying sigmoid mass. Recommend GI consultation for evaluation when the patient's condition permits. * 06/11/2025 CXR : Impression: 1: Chronic multifocal airspace disease, differential diagnosis includes chronic infection (e.G. atypical mycobacterial infection), organizing pneumonia and chronic inflammatory conditions such as sarcoidosis or vasculitis. Date 06/11 14:14 06/11 19:15 06/12 5:27 06/12/25 12:12 pH 7.316 7.36 7.38 7.40 pCO2 65 51 55 54 pO2 85 67 66 66 HCO3 32 28 32 33 sat 95% 92% 90% 93% FiO2 2L 2L 2 L type O2 2L rate 18 NC IPAP 10 10 EPAP 5 5 * 12/23/2023; CXR - Stable extensive chronic interstitial lung disease, likely reflecting moderate fibrosis. Compared to 10/2021. * 08/17/23 Echo- EF 60-65%, mild pulmHTN RVSP 46mmHg. * 02/02/23 - PFT; There is a severe obstructive abnormality without significant improvement after inhaling a single dose of albuterol? as the absolute increase in the post bronchodilator FEV1 is less than 200 mL. ? The lung volumes are normal. The diffusing capacity unadjusted for hemoglobin and carboxyhemoglobin is severely decreased and normalizes when adjusted for alveolar volume. * 02/09/2023:? Overnight oximetry on 3 L nasal cannula: Basal saturation 94.7.? High saturation 99%.? Low saturation 66%. ? Time with saturation less than or equal to 88% was 51 minutes and 6 seconds.? Looking at the tracing this all occurred after 4:15 and before that her saturations were greater than 95% and steady. ? * 08/31/23 - Chest CT; Persistent chronic interstitial fibrotic changes of the lungs, greater in the upper lung zones, particularly lingular, without significant change since 03/01/2022 * 02/04/[address]; Chronic bilateral upper lobe honeycombing, fibrosis. Dilated pulmonary arteries. Mild emphysema. No nodules noted. Her pattern is consistent with UIP. * Anti-Centromere neg, dsDNA neg, MOHSEN neg, Jo1 neg, Anti-HOTEL BREAKFAST ATTENDANT neg, SCL-70 neg, Anti-SSA/B neg, RF neg Review of Systems Review of Systems: All systems reviewed & are unremarkable except as noted in HPI and below PMFSH Past Medical History Medical History (Updated 06/12/25 @ 18:48 by Liss Martinez MD) Chronic respiratory failure with hypoxia and hypercapnia On 2 to 3 L nasal cannula. Dementia OAB (overactive bladder) Anemia of chronic disease Sigmoid diverticulitis with abscess and shock, April 2025 Exocrine pancreatic insufficiency Pancreatitis Chronic anticoagulation Hyperlipidemia Diastolic congestive heart failure Hypertension Drug overdose Pulmonary embolism (06/2021) Pulmonary arterial hypertension Chronic interstitial lung disease Peripheral vascular disease Cerebrovascular accident Clostridium difficile diarrhea Prediabetes History of peptic ulcer Gastroesophageal reflux disease Chronic obstructive pulmonary disease Pneumonia due to 2019-nCoV (06/11/21) Migraine Herniated disc Osteoporosis Anxiety Depression Arthritis GI bleed Emphysema of lung Surgical History Surgical History History of lumbar fusion x2 History of neck surgery (2001) History of tonsillectomy History of bladder suspension procedure History of hysterectomy History of tubal ligation History of cholecystectomy History of cardiac cath History of vascular surgery Left lower extremity. Family History Family History Father Family history of Parkinson's disease Mother Family history of pancreatic cancer Family history of chronic obstructive pulmonary disease Other Patient's brother is in good health Social History Social History Social History: Surrogate decision maker: Stefanie Finney, granddaughter. Code status: Full code. Smoking packs per day: 0.5 Smoking cigarettes per day: 10.0 Years smoked: 20 Smoking pack-years: 10.00 Smoking status: Former smoker Tobacco type: cigarettes Second hand tobacco smoke exposure: Yes Alcohol intake: never Substance use: never Substance use type: does not use Do You Feel Safe in your Home?: Yes Lack of Transportation: No Lack of Food: Never True Current Housing: I Have Housing Concerned About Future Housing: No Difficulty Paying Gas/Electric Bills: No Difficulty Paying for Meds: No Currently Unemployed: No Education: High School Diploma/GED Difficulty w/ Childcare or Family Care: No Living arrangements: [facility]itentiary Additional living arrangements comments: Resident of [facility]. Additional occupation/education comments: Retired. Spiritual care concerns: No Meds Home Medications and Allergies Home Medications ?Medication ?Instructions ?Recorded ?Confirmed ?Type pregabalin 150 mg capsule (Lyrica) 150 mg PO BID #60 caps 02/03/21 06/11/25 Rx folic acid 1 mg tablet 1 mg PO DAILY #90 tabs 03/30/21 06/11/25 Rx acetaminophen 650 mg 650 mg PO Q6H PRN Mild Pain (Scale 10/09/21 06/11/25 History tablet,extended release Score 1-4) carvedilol 3.125 mg tablet (Coreg) 3.125 mg PO BID 10/09/21 06/11/25 History ondansetron 4 mg disintegrating 8 mg PO Q6H PRN nausea and 10/09/21 06/11/25 History tablet vomitting apixaban 2.5 mg tablet (Eliquis) 2.5 mg PO BID 01/12/23 06/11/25 History bupropion HCl 75 mg tablet 75 mg PO DAILY 01/12/23 06/11/25 History furosemide 40 mg tablet 40 mg PO QAM 01/12/23 06/11/25 History guaifenesin 600 mg tablet, 600 mg PO BID 01/12/23 06/11/25 History extended release 12 hr albuterol sulfate 2.5 mg/3 mL 2.5 mg inhalation QID PRN SOB 04/18/24 06/11/25 History (0.083 %) solution for nebulization omega 3-mjr-otk-fish oil 1,000 mg 1 cap PO DAILY 04/18/24 06/11/25 History (120 mg-180 mg) capsule (Fish Oil) artificial tears solution eye drops 1 drp ophthalmic (eye) BID dry eyes 04/21/24 06/11/25 History cholecalciferol (vitamin D3) 25 25 mcg PO DAILY 04/21/24 06/11/25 History mcg (1,000 unit) tablet emollient combination no.110 1 ea topical DAILY 04/21/24 06/11/25 History (Eucerin Intensive Repair lotion) hydrocortisone 2.5 % topical cream 1 applic topical QID PRN Itching 04/21/24 06/11/25 History ipratropium 0.5 mg-albuterol 3 mg 3 ml inhalation Q6H PRN SOB 04/21/24 06/11/25 History (2.5 mg base)/3 mL nebulization soln loperamide 2 mg capsule 2 mg PO Q12H PRN Diarrhea 04/21/24 06/11/25 History ascorbic acid (vitamin C) 500 mg 500 mg PO BID 03/19/25 06/11/25 History tablet atorvastatin 40 mg tablet 40 mg PO QPM 03/19/25 06/11/25 History bisacodyl 10 mg rectal suppository 10 mg RECTAL DAILY PRN constipation 03/19/25 06/11/25 History diclofenac sodium 1 % topical gel 4.5 inch topical BID 03/19/25 06/11/25 History (Arthritis Pain (diclofenac)) diclofenac sodium 50 mg 50 mg PO Q12H PRN inflammation 03/19/25 06/11/25 History tablet,delayed release fexofenadine 180 mg tablet 180 mg PO DAILY 03/19/25 06/11/25 History (Lea Allergy) magnesium citrate (Citroma oral 296 ml PO DAILY PRN constipation 03/19/25 06/11/25 History solution) methotrexate sodium 7.5 mg tablet 7.5 mg PO WEEKLY 03/19/25 06/11/25 History (Trexall) multivitamin (Daily Multi-Vitamin 1 tablet PO DAILY 03/19/25 06/11/25 History tablet) sennosides 8.6 mg capsule (senna) 8.6 mg PO BID 03/19/25 06/11/25 History triamcinolone acetonide 0.1 % 1 applic topical BID 03/19/25 06/11/25 History topical cream budesonide 0.5 mg/2 mL suspension 0.5 mg (2 mL) inhalation Q12HRT 04/01/25 06/11/25 Rx for nebulization (Pulmicort) #30 mL fluticasone propionate 50 1 spray intranasal Q12HR #30 grams 04/01/25 06/11/25 Rx mcg/actuation nasal spray,suspension baclofen 10 mg tablet 10 mg PO Q6H PRN moderate pain 04/18/25 06/11/25 History esomeprazole magnesium 40 mg 40 mg PO DAILY 05/05/25 06/11/25 History granules delayed release for susp Lactobacillus acidophilus 100 mg PO BID 06/11/25 06/11/25 History cetirizine 10 mg tablet (24Hour 10 mg PO HS 06/11/25 06/11/25 History Allergy) diphenhydramine HCl 25 mg capsule 25 mg PO Q6H PRN itching 06/11/25 06/11/25 History (Allergy (diphenhydramine)) hydrocodone 5 mg-acetaminophen 325 1 tablet PO TID PRN pain 06/11/25 06/11/25 History mg tablet byrmgb-[id number]-[id number] 2 cap PO TIDWM 06/11/25 06/11/25 History 24,000-76,000-120,000 unit capsule,delayed rel (Creon) phenyleph-shark liver 1 applic topical BID PRN 06/11/25 06/11/25 History qpz-nippde-lbx rectal cream hemorrhoids polyethylene glycol 3350 17 gram 17 g PO DAILY 06/11/25 06/11/25 History oral powder packet (ClearLax) sodium phosphates 19 gram-7 118 ml RECTAL DAILY PRN 06/11/25 06/11/25 History gram/118 mL enema (Enema) constipation trazodone 50 mg tablet 50 mg PO HS 06/11/25 06/11/25 History umeclidinium 62.5 mcg-vilanterol 1 inh inhalation Q24H 06/11/25 06/11/25 History 25 mcg/actuation powdr for inhalation (Anoro Ellipta) Allergies Allergy/AdvReac Type Severity Reaction Status Date / Time ceftriaxone (From Rocephin) Allergy Intermediate Rash Verified 06/11/25 17:35 Sulfa (Sulfonamide Allergy Intermediate Rash Verified 06/11/25 17:35 Antibiotics) morphine AdvReac Mild Hallucinati Verified 06/11/25 17:35 ng Vital Signs Vital Signs - 24 hr 06/11/25 13:19 06/11/25 13:21 06/11/25 13:22 Temperature Pulse Rate 81 105 H 135 H Respiratory Rate 17 16 14 Blood Pressure 74/54 L 79/47 L Pulse Oximetry 98 100 99 Oxygen Delivery Oxygen Flow Rate Fraction of Inspired Oxygen 06/11/25 14:07 06/11/25 14:14 06/11/25 14:21 Temperature Pulse Rate 78 83 74 Respiratory Rate 14 17 15 Blood Pressure Pulse Oximetry Oxygen Delivery Oxygen Flow Rate Fraction of Inspired Oxygen 06/11/25 14:25 06/11/25 14:30 06/11/25 14:31 Temperature Pulse Rate 74 75 77 Respiratory Rate 15 15 15 Blood Pressure 88/57 L Pulse Oximetry 100 100 99 Oxygen Delivery Oxygen Flow Rate Fraction of Inspired Oxygen 06/11/25 14:42 06/11/25 14:45 06/11/25 14:51 Temperature Pulse Rate 75 78 Respiratory Rate 18 13 14 Blood Pressure 93/64 L Pulse Oximetry 95 92 95 Oxygen Delivery BiPAP Oxygen Flow Rate Fraction of Inspired Oxygen 06/11/25 14:52 06/11/25 15:00 06/11/25 15:11 Temperature Pulse Rate 75 74 74 Respiratory Rate 15 16 14 Blood Pressure 125/67 113/66 Pulse Oximetry 94 95 97 Oxygen Delivery Oxygen Flow Rate Fraction of Inspired Oxygen 06/11/25 15:16 06/11/25 15:21 06/11/25 15:32 Temperature Pulse Rate 75 76 72 Respiratory Rate 14 15 14 Blood Pressure 106/70 Pulse Oximetry 98 100 99 Oxygen Delivery Oxygen Flow Rate Fraction of Inspired Oxygen 06/11/25 15:45 06/11/25 15:51 06/11/25 15:52 Temperature Pulse Rate 74 73 74 Respiratory Rate 16 16 15 Blood Pressure 92/60 L Pulse Oximetry 97 98 97 Oxygen Delivery Oxygen Flow Rate Fraction of Inspired Oxygen 06/11/25 16:00 06/11/25 16:00 06/11/25 16:01 Temperature Pulse Rate 74 74 Respiratory Rate 16 20 16 Blood Pressure 94/55 L Pulse Oximetry 98 97 98 Oxygen Delivery BiPAP Oxygen Flow Rate Fraction of Inspired Oxygen 06/11/25 16:20 06/11/25 17:18 06/11/25 17:29 Temperature 37.0 C Pulse Rate 78 80 80 Respiratory Rate 14 25 H 22 H Blood Pressure 130/99 H Pulse Oximetry 95 97 98 Oxygen Delivery BiPAP Oxygen Flow Rate Fraction of Inspired Oxygen 06/11/25 18:00 06/11/25 19:33 06/11/25 20:00 Temperature 37.1 C Pulse Rate 80 77 83 Respiratory Rate 20 18 Blood Pressure 103/63 Pulse Oximetry 93 95 Oxygen Delivery BiPAP Oxygen Flow Rate Fraction of Inspired Oxygen 06/11/25 20:00 06/11/25 20:00 06/11/25 22:00 Temperature Pulse Rate 77 76 Respiratory Rate Blood Pressure Pulse Oximetry 98 Oxygen Delivery BiPAP Oxygen Flow Rate Fraction of Inspired Oxygen 06/11/25 22:55 06/11/25 23:57 06/12/25 00:00 Temperature 37.1 C Pulse Rate 72 74 68 Respiratory Rate 19 18 Blood Pressure 104/57 L Pulse Oximetry 92 92 Oxygen Delivery BiPAP Oxygen Flow Rate Fraction of Inspired Oxygen 06/12/25 00:00 06/12/25 02:30 06/12/25 02:30 Temperature Pulse Rate 66 66 Respiratory Rate 21 H 21 H Blood Pressure Pulse Oximetry 98 95 Oxygen Delivery BiPAP BiPAP Oxygen Flow Rate Fraction of Inspired Oxygen 06/12/25 02:31 06/12/25 02:54 06/12/25 04:00 Temperature Pulse Rate 117 H 69 Respiratory Rate 20 Blood Pressure Pulse Oximetry 95 Oxygen Delivery BiPAP Oxygen Flow Rate Fraction of Inspired Oxygen 06/12/25 04:00 06/12/25 04:00 06/12/25 05:30 Temperature 37.0 C Pulse Rate 69 72 64 Respiratory Rate 18 18 Blood Pressure 113/56 L Pulse Oximetry 93 93 Oxygen Delivery BiPAP Oxygen Flow Rate Fraction of Inspired Oxygen 06/12/25 06:00 06/12/25 07:00 06/12/25 07:59 Temperature 36.8 C Pulse Rate 108 H 74 Respiratory Rate 20 Blood Pressure 130/70 Pulse Oximetry 97 100 Oxygen Delivery High Flow Nasal Cannula Oxygen Flow Rate 3 Fraction of Inspired Oxygen 06/12/25 08:00 06/12/25 08:00 06/12/25 08:30 Temperature Pulse Rate 84 82 Respiratory Rate 18 Blood Pressure Pulse Oximetry 97 Oxygen Delivery High Flow Nasal Cannula Oxygen Flow Rate 3 Fraction of Inspired Oxygen 06/12/25 09:52 06/12/25 09:55 06/12/25 10:00 Temperature Pulse Rate 79 86 76 Respiratory Rate 18 16 Blood Pressure Pulse Oximetry 95 Oxygen Delivery BiPAP Oxygen Flow Rate Fraction of Inspired Oxygen 06/12/25 11:33 06/12/25 12:00 06/12/25 12:00 Temperature 36.4 C Pulse Rate 74 72 Respiratory Rate 20 Blood Pressure 100/52 L Pulse Oximetry 96 94 Oxygen Delivery BiPAP Oxygen Flow Rate Fraction of Inspired Oxygen 28 06/12/25 12:20 Temperature Pulse Rate 86 Respiratory Rate 18 Blood Pressure Pulse Oximetry 94 Oxygen Delivery BiPAP Oxygen Flow Rate Fraction of Inspired Oxygen Exam Narrative: GEN: Alert, oriented, not in distress. Pleasant. Decreased memory. She asked me some questions 3 or more times. HEENT: pupils are equal, EOMI, symmetrical face; oral membranes moist, edentulous, Mallampati III airway. No sinus tenderness. NECK: Trachea is midline CHEST: Equal air entry, symmetric excursion, crackles right base, overall good air entry. CV: Regular S1S2 no m/g/r Extremities : no clubbing, no cyanosis, no significant edema PSYCH: normal mood. Gait not tested. Speech is normal. Results Laboratory Findings 06/12/25 03:24 06/12/25 03:24 ABG, PT/INR, D-dimer: ABG ABG pH 7.409 (7.350-7.450) 06/12/25 12:12 ABG pCO2 54.1 mmHg (35.0-45.0) H 06/12/25 12:12 ABG pO2 66.2 mmHg (80.0-100.0) L 06/12/25 12:12 ABG O2 Saturation 92.9 % (95.0-100.0) L 06/12/25 12:12 PT/INR, D-dimer PT 17.1 Seconds (11.1-14.7) H 06/11/25 13:31 INR 1.4 06/11/25 13:31 Abnormal lab findings: Abnormal Labs 06/11/25 06/11/25 06/11/25 13:31 13:48 14:14 WBC 23.2 H RBC 3.20 L Hgb 9.8 L Hct 32.1 L MCV 100.3 H MCHC 30.5 L RDW 16.1 H MPV 11.7 H Lymph % (Auto) [place] % (Auto) [place] # (Auto) Abs Immat Gran (auto) Absolute Neuts (auto) Neutrophils % (Manual) 81 H Lymphocytes % (Manual) 15.0 L Abs Neuts (Manual) 19.48 H Abs Basophils (Manual) 0.23 H PT 17.1 H APTT 54.8 H ABG pH 7.316 L ABG pCO2 64.7 H* ABG pO2 ABG HCO3 32.3 H ABG O2 Saturation ABG O2 Content 13.8 L Total Hemoglobin 10.3 L Sodium Carbon Dioxide 31 H Estimated GFR 58 L Glucose 145 H Calcium C-Reactive Protein 7.2 H Total Protein Albumin Urine Ketones Trace H Leukocyte Esterase Rfl 1+ H 06/11/25 06/12/25 06/12/25 19:15 03:24 05:27 WBC 13.4 H RBC 2.62 L Hgb 8.0 L Hct 26.4 L MCV 100.8 H MCHC 30.3 L RDW 16.7 H MPV 12.2 H Lymph % (Auto) 18.2 L [place] % (Auto) 9.2 H [place] # (Auto) 1.2 H Abs Immat Gran (auto) 0.07 H Absolute Neuts (auto) 9.3 H Neutrophils % (Manual) Lymphocytes % (Manual) Abs Neuts (Manual) Abs Basophils (Manual) PT APTT ABG pH ABG pCO2 51.2 H 55.6 H ABG pO2 67.1 L 66.7 L ABG HCO3 28.5 H 32.2 H ABG O2 Saturation 92.5 L 92.5 L ABG O2 Content 12.2 L 11.3 L Total Hemoglobin 9.5 L 8.8 L Sodium 136 L Carbon Dioxide 32 H Estimated GFR Glucose Calcium 8.1 L C-Reactive Protein Total Protein 6.0 L Albumin 3.0 L Urine Ketones Leukocyte Esterase Rfl 06/12/25 12:12 WBC RBC Hgb Hct MCV MCHC RDW MPV Lymph % (Auto) [place] % (Auto) [place] # (Auto) Abs Immat Gran (auto) Absolute Neuts (auto) Neutrophils % (Manual) Lymphocytes % (Manual) Abs Neuts (Manual) Abs Basophils (Manual) PT APTT ABG pH ABG pCO2 54.1 H ABG pO2 66.2 L ABG HCO3 33.4 H ABG O2 Saturation 92.9 L ABG O2 Content 11.7 L Total Hemoglobin 9.0 L Sodium Carbon Dioxide Estimated GFR Glucose Calcium C-Reactive Protein Total Protein Albumin Urine Ketones Leukocyte Esterase Rfl
[2025-06-12] MEDS: EUCERIN CREAM 120 GM JAR 1 APPLIC TOPICAL (13:25)
[2025-06-12] MEDS: DICLOFENAC SODIUM 1% 100 GM GEL (*BKC) 1 APPLIC TOPICAL ×2 (13:26→21:40)
[2025-06-12] MEDS: LIPASE/AMYLASE/PROTEASE 12,000 UNITS CAP 4 CAP PO (16:58)
[2025-06-12] MEDS: ATORVASTATIN 40 MG TABLET PO (17:02)
[2025-06-12] MEDS: ACETYLCYSTEINE 20% INHAL SOLN 800 MG/4 ML VIAL 200 MG INHALATION (20:00)
--- NOTE | 2025-06-12 20:23 | PC.NURSE ---
Dr Knigth called and made aware of consult.
[2025-06-12] MEDS: LORATADINE 10 MG TABLET PO (21:39)
[2025-06-12] MEDS: SENNOSIDES 8.6 MG TABLET PO (21:39)
[2025-06-12] MEDS: HYDROCORTISONE 2.5% CREAM 30 GM TUBE 1 APPLIC TOPICAL (21:41)
[2025-06-12] MEDS: ACETAMINOPHEN 325 MG TABLET 650 MG PO (21:50)
[2025-06-12] MEDS: DOXYCYCLINE IV 100 MG in SODIUM CHLORIDE 0.9% IV 100 ML IVPB (21:53)
[2025-06-12] MEDS: TRIAMCINOLONE ACET 0.1% CREAM 15 GM TUBE 1 APPLIC TOPICAL (21:58)
--- NOTE | 2025-06-12 23:07 | WPDGICN ---
Assessment and Plan Assessment and plan (1) Diverticular disease of intestine with perforation and abscess: Code(s): K57.80 - Diverticulitis of intestine, part unspecified, with perforation and abscess without bleeding Status: Acute Assessment and Plan: The finding of a thickened sigmoid does not imply active diverticulitis, since it may be a sequelae of a recent diverticulitis, which was severe and radiological changes can take weeks or even months to resolve. There are no interventions from our end to be suggested in her particular case. Rather, the main focus of her medical care should be her pulmonary problems. Will sign off, please let us know if there are any other issues pertaining to our specialty. GI Consult Note Consult date/time: 06/12/25 23:07 Reason for consult: diverticulitis HPI: Gabbi Champagne is a 80 year old female admitted on 06/12 with altered mental status. She has a diagnosis of CVA, dementia, COPD and interstitial lung disease O2 dependent. She was found to have severe leukocytosis (23.2) and very severe pulmonary imaging findings. Evaluated by pulmonary, considering many differential diagnoses options, but one of them is possible aspiration pneumonia for which she is being treated with Vancomycin and Doxycycline + Levofloxacine. Of note, she was admitted from 04/19/2025 to 04/28/2025 for septic shock originated in a severe diverticulitis with a sarath diverticular abscess. She was treated medically and followed by Surgery not being considered a candidate for surgery. Since that admission she has been fluctiating between diarrhea and constipation, and is currently receiving Imodium and Senokote in her therapy. The reason for this consultation is the CT finding of thickened sigmoid colon with mild surrounding formation and a possible 12 mm peridiverticular abscess. Review of Systems Review of Systems: All systems reviewed & are unremarkable except as noted in HPI and below [facility] Past Medical History Medical History (Updated 06/12/25 @ 18:48 by Liss Martinez MD) Chronic respiratory failure with hypoxia and hypercapnia On 2 to 3 L nasal cannula. Dementia OAB (overactive bladder) Anemia of chronic disease Sigmoid diverticulitis with abscess and shock, April 2025 Exocrine pancreatic insufficiency Pancreatitis Chronic anticoagulation Hyperlipidemia Diastolic congestive heart failure Hypertension Drug overdose Pulmonary embolism (06/2021) Pulmonary arterial hypertension Chronic interstitial lung disease Peripheral vascular disease Cerebrovascular accident Clostridium difficile diarrhea Prediabetes History of peptic ulcer Gastroesophageal reflux disease Chronic obstructive pulmonary disease Pneumonia due to 2019-nCoV (06/11/21) Migraine Herniated disc Osteoporosis Anxiety Depression Arthritis GI bleed Emphysema of lung Surgical History Surgical History History of lumbar fusion x2 History of neck surgery (2001) History of tonsillectomy History of bladder suspension procedure History of hysterectomy History of tubal ligation History of cholecystectomy History of cardiac cath History of vascular surgery Left lower extremity. Family History Family History Father Family history of Parkinson's disease Mother Family history of pancreatic cancer Family history of chronic obstructive pulmonary disease Other Patient's brother is in good health Social History Social History Social History: Surrogate decision maker: Stefanie Finney, granddaughter. Code status: Full code. Smoking packs per day: 0.5 Smoking cigarettes per day: 10.0 Years smoked: 20 Smoking pack-years: 10.00 Smoking status: Former smoker Tobacco type: cigarettes Second hand tobacco smoke exposure: Yes Alcohol intake: never Substance use: never Substance use type: does not use Do You Feel Safe in your Home?: Yes Lack of Transportation: No Lack of Food: Never True Current Housing: I Have Housing Concerned About Future Housing: No Difficulty Paying Gas/Electric Bills: No Difficulty Paying for Meds: No Currently Unemployed: No Education: High School Diploma/GED Difficulty w/ Childcare or Family Care: No Living arrangements: care home Additional living arrangements comments: Resident of [facility]. Additional occupation/education comments: Retired. Spiritual care concerns: No Meds Home Medications and Allergies Home Medications ?Medication ?Instructions ?Recorded ?Confirmed ?Type pregabalin 150 mg capsule (Lyrica) 150 mg PO BID #60 caps 02/03/21 06/11/25 Rx folic acid 1 mg tablet 1 mg PO DAILY #90 tabs 03/30/21 06/11/25 Rx acetaminophen 650 mg 650 mg PO Q6H PRN Mild Pain (Scale 10/09/21 06/11/25 History tablet,extended release Score 1-4) carvedilol 3.125 mg tablet (Coreg) 3.125 mg PO BID 10/09/21 06/11/25 History ondansetron 4 mg disintegrating 8 mg PO Q6H PRN nausea and 10/09/21 06/11/25 History tablet vomitting apixaban 2.5 mg tablet (Eliquis) 2.5 mg PO BID 01/12/23 06/11/25 History bupropion HCl 75 mg tablet 75 mg PO DAILY 01/12/23 06/11/25 History furosemide 40 mg tablet 40 mg PO QAM 01/12/23 06/11/25 History guaifenesin 600 mg tablet, 600 mg PO BID 01/12/23 06/11/25 History extended release 12 hr albuterol sulfate 2.5 mg/3 mL 2.5 mg inhalation QID PRN SOB 04/18/24 06/11/25 History (0.083 %) solution for nebulization omega 8-xte-xfc-fish oil 1,000 mg 1 cap PO DAILY 04/18/24 06/11/25 History (120 mg-180 mg) capsule (Fish Oil) artificial tears solution eye drops 1 drp ophthalmic (eye) BID dry eyes 04/21/24 06/11/25 History cholecalciferol (vitamin D3) 25 25 mcg PO DAILY 04/21/24 06/11/25 History mcg (1,000 unit) tablet emollient combination no.110 1 ea topical DAILY 04/21/24 06/11/25 History (Eucerin Intensive Repair lotion) hydrocortisone 2.5 % topical cream 1 applic topical QID PRN Itching 04/21/24 06/11/25 History ipratropium 0.5 mg-albuterol 3 mg 3 ml inhalation Q6H PRN SOB 04/21/24 06/11/25 History (2.5 mg base)/3 mL nebulization soln loperamide 2 mg capsule 2 mg PO Q12H PRN Diarrhea 04/21/24 06/11/25 History ascorbic acid (vitamin C) 500 mg 500 mg PO BID 03/19/25 06/11/25 History tablet atorvastatin 40 mg tablet 40 mg PO QPM 03/19/25 06/11/25 History bisacodyl 10 mg rectal suppository 10 mg RECTAL DAILY PRN constipation 03/19/25 06/11/25 History diclofenac sodium 1 % topical gel 4.5 inch topical BID 03/19/25 06/11/25 History (Arthritis Pain (diclofenac)) diclofenac sodium 50 mg 50 mg PO Q12H PRN inflammation 03/19/25 06/11/25 History tablet,delayed release fexofenadine 180 mg tablet 180 mg PO DAILY 03/19/25 06/11/25 History (Lea Allergy) magnesium citrate (Citroma oral 296 ml PO DAILY PRN constipation 03/19/25 06/11/25 History solution) methotrexate sodium 7.5 mg tablet 7.5 mg PO WEEKLY 03/19/25 06/11/25 History (Trexall) multivitamin (Daily Multi-Vitamin 1 tablet PO DAILY 03/19/25 06/11/25 History tablet) sennosides 8.6 mg capsule (senna) 8.6 mg PO BID 03/19/25 06/11/25 History triamcinolone acetonide 0.1 % 1 applic topical BID 03/19/25 06/11/25 History topical cream budesonide 0.5 mg/2 mL suspension 0.5 mg (2 mL) inhalation Q12HRT 04/01/25 06/11/25 Rx for nebulization (Pulmicort) #30 mL fluticasone propionate 50 1 spray intranasal Q12HR #30 grams 04/01/25 06/11/25 Rx mcg/actuation nasal spray,suspension baclofen 10 mg tablet 10 mg PO Q6H PRN moderate pain 04/18/25 06/11/25 History esomeprazole magnesium 40 mg 40 mg PO DAILY 05/05/25 06/11/25 History granules delayed release for susp Lactobacillus acidophilus 100 mg PO BID 06/11/25 06/11/25 History cetirizine 10 mg tablet (24Hour 10 mg PO HS 06/11/25 06/11/25 History Allergy) diphenhydramine HCl 25 mg capsule 25 mg PO Q6H PRN itching 06/11/25 06/11/25 History (Allergy (diphenhydramine)) hydrocodone 5 mg-acetaminophen 325 1 tablet PO TID PRN pain 06/11/25 06/11/25 History mg tablet sdkrki-nnvurgdn-lusdkfo 2 cap PO TIDWM 06/11/25 06/11/25 History 24,000-76,000-120,000 unit capsule,delayed rel (Creon) phenyleph-shark liver 1 applic topical BID PRN 06/11/25 06/11/25 History mll-oztzwc-jgw rectal cream hemorrhoids polyethylene glycol 3350 17 gram 17 g PO DAILY 06/11/25 06/11/25 History oral powder packet (ClearLax) sodium phosphates 19 gram-7 118 ml RECTAL DAILY PRN 06/11/25 06/11/25 History gram/118 mL enema (Enema) constipation trazodone 50 mg tablet 50 mg PO HS 06/11/25 06/11/25 History umeclidinium 62.5 mcg-vilanterol 1 inh inhalation Q24H 06/11/25 06/11/25 History 25 mcg/actuation powdr for inhalation (Anoro Ellipta) Allergies Allergy/AdvReac Type Severity Reaction Status Date / Time ceftriaxone (From Rocephin) Allergy Intermediate Rash Verified 06/11/25 17:35 Sulfa (Sulfonamide Allergy Intermediate Rash Verified 06/11/25 17:35 Antibiotics) morphine AdvReac Mild Hallucinati Verified 06/11/25 17:35 ng Vital Signs Vital Signs - 24 hr 06/11/25 23:57 06/12/25 00:00 06/12/25 00:00 Temperature 98.7 F Pulse Rate 74 68 Respiratory Rate 18 Blood Pressure 104/57 L Pulse Oximetry 92 98 Oxygen Delivery BiPAP Oxygen Flow Rate Fraction of Inspired Oxygen 06/12/25 02:30 06/12/25 02:30 06/12/25 02:31 Temperature Pulse Rate 66 66 117 H Respiratory Rate 21 H 21 H Blood Pressure Pulse Oximetry 95 Oxygen Delivery BiPAP Oxygen Flow Rate Fraction of Inspired Oxygen 06/12/25 02:54 06/12/25 04:00 06/12/25 04:00 Temperature 98.6 F Pulse Rate 69 69 Respiratory Rate 20 18 Blood Pressure 113/56 L Pulse Oximetry 95 93 Oxygen Delivery BiPAP Oxygen Flow Rate Fraction of Inspired Oxygen 06/12/25 04:00 06/12/25 05:30 06/12/25 06:00 Temperature Pulse Rate 72 64 108 H Respiratory Rate 18 Blood Pressure Pulse Oximetry 93 Oxygen Delivery BiPAP Oxygen Flow Rate Fraction of Inspired Oxygen 06/12/25 07:00 06/12/25 07:59 06/12/25 08:00 Temperature 98.2 F Pulse Rate 74 Respiratory Rate 20 Blood Pressure 130/70 Pulse Oximetry 97 100 97 Oxygen Delivery High Flow Nasal Cannula High Flow Nasal Cannula Oxygen Flow Rate 3 3 Fraction of Inspired Oxygen 06/12/25 08:00 06/12/25 08:30 06/12/25 09:52 Temperature Pulse Rate 84 82 79 Respiratory Rate 18 18 Blood Pressure Pulse Oximetry 95 Oxygen Delivery BiPAP Oxygen Flow Rate Fraction of Inspired Oxygen 06/12/25 09:55 06/12/25 10:00 06/12/25 11:33 Temperature 97.6 F Pulse Rate 86 76 74 Respiratory Rate 16 20 Blood Pressure 100/52 L Pulse Oximetry 96 Oxygen Delivery Oxygen Flow Rate Fraction of Inspired Oxygen 06/12/25 12:00 06/12/25 12:00 06/12/25 12:20 Temperature Pulse Rate 72 86 Respiratory Rate 18 Blood Pressure Pulse Oximetry 94 94 Oxygen Delivery BiPAP BiPAP Oxygen Flow Rate Fraction of Inspired Oxygen 06/12/25 14:00 06/12/25 14:31 06/12/25 14:35 Temperature Pulse Rate 73 78 78 Respiratory Rate 18 18 Blood Pressure Pulse Oximetry Oxygen Delivery Oxygen Flow Rate Fraction of Inspired Oxygen 06/12/25 16:00 06/12/25 16:00 06/12/25 16:13 Temperature 98.0 F Pulse Rate 83 79 Respiratory Rate 30 H Blood Pressure 108/52 L Pulse Oximetry 96 94 Oxygen Delivery BiPAP Oxygen Flow Rate Fraction of Inspired Oxygen 06/12/25 18:00 06/12/25 20:00 06/12/25 20:00 Temperature 98.4 F Pulse Rate 90 78 79 Respiratory Rate 18 17 Blood Pressure 119/59 L Pulse Oximetry 98 Oxygen Delivery Oxygen Flow Rate Fraction of Inspired Oxygen Exam Narrative: Abdomen: Soft, nontender, not distended, no hepatosplenomegaly, no rebound tenderness. Rest of the exam w Results Labs 06/12/25 03:24 06/12/25 03:24 Labs: Short CBC 06/12/25 Range/Units 03:24 WBC 13.4 H (4.5-10.0) K/mm3 Hgb 8.0 L (12.0-15.0) g/dL Hct 26.4 L (37.0-47.0) % Plt Count 213 (150-375) k/mm3 BMP 06/12/25 03:24 Sodium 136 L Potassium 4.4 Chloride 100 Carbon Dioxide 32 H BUN 15 Creatinine 0.77 Glucose 91 Calcium 8.1 L Liver Function 06/12/25 Range/Units 03:24 Total Bilirubin 0.5 (0.2-1.3) mg/dL AST 21 (14-36) U/L ALT 14 (6-35) U/L Alkaline Phosphatase 53 (38-126) U/L Albumin 3.0 L (3.5-5.1) g/dL
[2025-06-13] VITALS (28 sets, daily range): BP systolic 104–148; BP diastolic 57–71; PULSE 59–89; RESP 16–23; TEMP 36.5–36.9; O2SAT 94–100; BMI 28.5
[2025-06-13] MEDS: IPRATROPIUM 0.5 MG/ALBUTEROL SULFATE 2.5 MG AMPUL.NEB 3 ML INHALATION ×4 (02:34→21:14)
[2025-06-13] MEDS: ACETYLCYSTEINE 20% INHAL SOLN 800 MG/4 ML VIAL 200 MG INHALATION ×2 (07:10→21:15)
[2025-06-13] MEDS: BUDESONIDE RESPULE NEB 0.5 MG/2 ML AMP INHALATION ×2 (07:10→21:14)
[2025-06-13] MEDS: UMECLIDINIUM/VILANTEROL 62.5-25 MCG ELLIPTA 1 PUFF INHALATION (07:14)
[2025-06-13] MEDS: MULTIVITAMINS THERAPEUTIC TAB (*BKC) 1 TABLET PO (09:00)
[2025-06-13] MEDS: CHOLECALCIFEROL (VITAMIN D3) 25 MCG (1,000 UNITS) TABLET PO (09:00)
[2025-06-13] MEDS: PANTOPRAZOLE 40 MG TABLET PO (09:00)
[2025-06-13] MEDS: ACIDOPHILUS/BULGARICUS CHEWABLE TABLET 1 TABLET PO ×2 (09:00→16:29)
[2025-06-13] MEDS: guaiFENesin 12 HR 600 MG TABCR PO ×2 (09:00→20:12)
[2025-06-13] MEDS: FOLIC ACID 1 MG TABLET PO (09:00)
[2025-06-13] MEDS: APIXABAN 2.5 MG TABLET PO ×2 (09:01→20:12)
[2025-06-13] MEDS: PREGABALIN (*CRX) 75 MG CAPSULE 150 MG PO ×2 (09:01→16:29)
[2025-06-13] MEDS: ASCORBIC ACID 500 MG TABLET PO ×2 (09:01→16:29)
[2025-06-13] MEDS: OMEGA 3 POLYUNSAT FATTY ACIDS 1 GM CAP PO (09:01)
[2025-06-13] MEDS: FUROSEMIDE 40 MG TABLET PO (09:02)
[2025-06-13] MEDS: DOXYCYCLINE IV 100 MG in SODIUM CHLORIDE 0.9% IV 100 ML IVPB ×2 (09:03→20:17)
[2025-06-13] MEDS: DICLOFENAC SODIUM 1% 100 GM GEL (*BKC) 1 APPLIC TOPICAL ×2 (10:17→20:17)
[2025-06-13] MEDS: FLUTICASONE PROPIONATE 0.05% NA SPR 16 GM BTL (*BKC) 1 SPRAY NASAL ×2 (10:17→20:15)
[2025-06-13] MEDS: EUCERIN CREAM 120 GM JAR 1 APPLIC TOPICAL (10:17)
[2025-06-13] MEDS: ARTIFICIAL TEARS OPHTH SOLN 15 ML BOTTLE 1 DROP EACH EYE ×2 (10:17→20:15)
[2025-06-13] MEDS: TRIAMCINOLONE ACET 0.1% CREAM 15 GM TUBE 1 APPLIC TOPICAL (10:18)
[2025-06-13 10:27] LABS: Non-Invasive Expiratory Pressure 5 CMH2O; Non-Invasive Inspiratory Pressure 15 CMH2O; Non-Invasive Vent Rate 16 /MIN
--- NOTE | 2025-06-13 11:37 | PCSTNOTE ---
Please refer to the Modified Barium Swallow Evaluation in the EMR. The patient is a 80 year old female referred for a MBS Study due to history of pneumonia and concerns for aspiration. The patient was positioned in a lateral view and presented the following consistencies: 5cc/tsp thin liquid barium, cup trials thin liquid barium, pudding mixed with barium paste, and cracker coated with barium paste. Oral Stage: Oral preparation and transit was viewed to be timely for pudding and thin liquid consistency. The patient required extra time to masticate solids/cracker and form a bolus due to limited dentition (only upper dentures) noted piecemeal deglutition with the bolus reaching the pyriform sinus prior to swallow initiation. Pharyngeal Stage: When presented all the above consistencies swallow initiation was completed in a timely manner without viewed aspiration or penetration. No residual was viewed to remain in the valleculae or pyriform sinus. Recommend consideration of a barium swallow given patients reported symptoms. Recommend Bolus 1. Soft and Bite Size / Level 6 (Secondary to limited dentition) 2. Thin Liquid / level 0
[2025-06-13] MEDS: LIPASE/AMYLASE/PROTEASE 12,000 UNITS CAP 4 CAP PO ×2 (13:12→16:29)
--- NOTE | 2025-06-13 14:27 | PM.IMPN ---
Progress Note: A&P Assessment and Plan (1) Sepsis: Qualifiers: Sepsis type: sepsis due to unspecified organism Sepsis acute organ dysfunction status: with acute organ dysfunction Severe sepsis acute organ dysfunction type: acute respiratory failure Acute respiratory failure type: with hypercapnia Severe sepsis shock status: unspecified Qualified Code(s): A41.9 - Sepsis, unspecified organism; R65.20 - Severe sepsis without septic shock; J96.02 - Acute respiratory failure with hypercapnia Code(s): A41.9 - Sepsis, unspecified organism Status: Acute Assessment and Plan: Concern for sepsis due to significant hypotension, 79/47 upon arrival increasing concerns for shock. has responded to IV fluids. - lactic acid: 1.9 - 30 mL/kg = 2.1, 1.5 L given due to CHF history. Tolerated well. 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 atypical mycobacterial infection), organizing pneumonia and chronic inflammatory conditions such as sarcoidosis or vasculitis. - admission to IMU for close hemodynamic monitoring, BP remains soft, improved --Check CT chest/abd/pelvis with recent diverticulitis and now pneumonia (2) Acute on chronic respiratory failure with hypoxia and hypercapnia: Code(s): J96.21 - Acute and chronic respiratory failure with hypoxia; J96.22 - Acute and chronic respiratory failure with hypercapnia Status: Acute Assessment and Plan: Patient reportedly non compliant with her supplemental oxygen that she is supposed to be on at baseline, 3 L nasal cannula. Has history of COPD and chronic interstitial lung disease. Despite replacement of nasal cannula at the patient's facility, the patient remained altered. Initial ABG significant for a CO2 of 64.7. She was placed on BiPAP in the ED on 06/11. Will plan for repeat ABG this evening, if CO2 improved to baseline will titrate patient to nasal cannula. Will continue supplemental oxygen to maintain O2 sat greater than 92%, may wean to 3L nasal cannula. ABG 06/04 7.315/64.7/85.8/32.3. Repeat ABG CO2 of 51.2, continued BiPAP. ABG's this morning still hypercarbic but not acidotic --pulmonary consult (3) Altered mental status: Qualifiers: Altered mental status type: disorientation Qualified Code(s): R41.0 - Disorientation, unspecified Code(s): R41.82 - Altered mental status, unspecified Status: Acute Assessment and Plan: Check head CT >> no acute intracranial abnormality, chronic left cerebellar and lacunar infarctions CO2 elevated, suspect CO2 narcosis as etiology for patient's alteration due to noncompliance with supplemental O2. Started on BiPAP on 06/11, plan for repeat ABG. - significant leukocytosis of 23.2, when compared to previous the patient was 12.4 on 05/05. CXR concerning for superimposed pneumonia, see plan below. May be contributing to patient's alteration via metabolic encephalopathy. Patient additionally has had chronic diarrhea since April and endorsing lower abdominal pain, checking CT. Has history of diverticulitis with abscess and septic shock. - neurological checks q.6 - reviewed home medications. hold baclofen, Benadryl, [place], trazodone until mental status improved. (4) Pneumonia: Qualifiers: Laterality: bilateral Lung location: lower lobe of lung Pneumonia type: due to unspecified organism Qualified Code(s): J18.9 - Pneumonia, unspecified organism Code(s): J18.9 - Pneumonia, unspecified organism Status: Acute Assessment and Plan: See CXR impression above - risk factors and complicating factors: CO2 narcosis, previously positive MRSA, ILD - started on Levaquin and vancomycin on 06/11. Change Vanc to doxy - check MRSA PCR, previously positive on 04/23/2025 - Viral PCR completed on 06/11 >> negative - check sputum culture, Legionella, mycoplasma, pneumococcal - supportive care: Mucinex aaliyah, Tessalon Perles p.r.n., Tylenol p.r.n., DuoNebs [facility] (5) Diarrhea: Qualifiers: Diarrhea type: unspecified type Qualified Code(s): R19.7 - Diarrhea, unspecified Code(s): R19.7 - Diarrhea, unspecified Status: Acute Assessment and Plan: Patient has history of diverticulitis with abscess and septic shock in April of 2025. During this admission she does not negative for C diff. diarrhea has been persistent since April and is currently being treated with Lomotil and Metamucil outpatient. Will continue both medications. - No abdominal pain or diarrhea today. Hold off on stool studies. Had a formed BM per RN. --CT since recent diverticulitis - hold MiraLax and magnesium citrate (6) COPD (chronic obstructive pulmonary disease): Qualifiers: COPD type: unspecified COPD Qualified Code(s): J44.9 - Chronic obstructive pulmonary disease, unspecified Code(s): J44.9 - Chronic obstructive pulmonary disease, unspecified Status: Chronic Assessment and Plan: Rare wheezing on exam, patient did not endorse a productive cough decreasing concerns for a acute exacerbation of COPD - DuoNeb scheduled - started on broad-spectrum antibiotics due to concern for pneumonia (7) CHF (congestive heart failure): Qualifiers: Heart failure type: unspecified Heart failure chronicity: chronic Qualified Code(s): I50.9 - Heart failure, unspecified Code(s): I50.9 - Heart failure, unspecified Status: Chronic Assessment and Plan: No evidence of pulmonary edema on CXR or on clinical exam Most recent echo (2022): Normal LV size with mild concentric hypertrophy, EF 60 65%, grade 1 diastolic dysfunction, mild valvular disease noted, mild pulmonary hypertension. See report for details. home medication: Lasix 40 mg daily - monitor I&Os and daily weights - trend renal function (8) Anemia of chronic disease: Code(s): D63.8 - Anemia in other chronic diseases classified elsewhere Status: Chronic Assessment and Plan: Hgb low8 S previously 10.4 on 05/05/2025 - transfuse if <7 - monitor (9) HTN (hypertension): Qualifiers: Hypertension type: unspecified Qualified Code(s): I10 - Essential (primary) hypertension Code(s): I10 - Essential (primary) hypertension Status: Chronic Assessment and Plan: Chronic. Significantly hypotensive upon arrival on 06/11 with a blood pressure of 79/47. Improved with IV fluids, currently 92/60. - hold home medications including: Coreg - monitor (10) Prediabetes: Code(s): R73.03 - Prediabetes Status: Chronic Assessment and Plan: - no A1C on file, BS was 145 upon arrival. Check A1c. Plan Per POA patient has been experiencing multiple e. coli UTIs. She reports they have been resistant previously. UA showed 1+ leuks, otherwise unremarkable. UC was obtained, follow. Diet: Heart healthy GI Prophylaxis: N/a DVT Prophylaxis: Eliquis IV fluids: 1.5 L Lines/Tubes: Peripheral IV Code Status: Modified Code - no intubation, no CPR, meds only Subjective Date/time seen: 06/13/25 14:27 Interval history: Patient was seen during the morning rounds today. Patient is feeling slightly better. Mild shortness of breath. No chest pain. No nausea vomiting. 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 From [facility] All systems reviewed & are unremarkable except as noted in HPI and below (Limited, altered) Exam Narrative: General - Awake and alert. No acute distress Eyes - PERRLA, EOM intact ENT - No thrush, No erythema Neck - No noticeable or palpable swelling Lymph Nodes - No lymphadenopathy Cardiovascular - RRR no m/r/g, no JVD Lungs: Rare wheezing on exam, no use of accessory muscles, no crackles Skin - Skin warm and dry, no wounds or rashes Abdomen - Normal bowel sounds, abdomen soft and nontender Extremities - No edema, cyanosis or clubbing Musculoskeletal - 5/5 strength, normal range of motion, no swollen or erythematous joints. Neurological ? Alert and oriented x 3, CN 2-12 grossly intact. Psych: Normal mood and affect Const: General: comfortable and no acute distress Other: , female, elderly, restless HENMT: Face/Nose/Sinus: Normal nares present Mouth: Yes dry mucous membranes Eyes: General: appearance normal, both eyes and all related structures Sclera: sclerae normal Pupils: Equal, round and reactive pupils present EOM: EOMs intact bilaterally Resp: Other: Increased work of breathing, scattered wheeze in her upper lung [place] however not consistent. No crackles appreciated. Cardio: Rate: regular rate Rhythm: regular rhythm Other: S1-S2 present without murmur, rub, ectopy GI: Other: Abdomen soft, nondistended, nontender. Normoactive bowel sounds in all quadrants. Skin: General skin exam: normal color and no rashes or lesions noted Wounds: no wounds Neuro: Cranial nerves: Yes Equal, round and reactive pupils present Speech: normal speech Motor exam (neuro): 5/5 motor strength present throughout Sensory Exam: normal sensation Other: A/Ox self, place. Extrem: General: normal to inspection Psych: Affect: normal affect Other: Poor insight and judgment at present, restless. Objective Data Vital Signs Vital Signs: Vital Signs - 24 hr 06/12/25 14:31 06/12/25 14:35 06/12/25 16:00 Temperature Pulse Rate 78 78 Respiratory Rate 18 18 Blood Pressure Pulse Oximetry 96 Oxygen Delivery BiPAP Oxygen Flow Rate Fraction of Inspired Oxygen 06/12/25 16:00 06/12/25 16:13 06/12/25 18:00 Temperature 36.7 C Pulse Rate 83 79 90 Respiratory Rate 30 H Blood Pressure 108/52 L Pulse Oximetry 94 Oxygen Delivery Oxygen Flow Rate Fraction of Inspired Oxygen 06/12/25 20:00 06/12/25 20:00 06/12/25 20:00 Temperature 36.9 C Pulse Rate 78 79 77 Respiratory Rate 18 17 Blood Pressure 119/59 L Pulse Oximetry 98 Oxygen Delivery Oxygen Flow Rate Fraction of Inspired Oxygen 06/12/25 20:13 06/12/25 22:00 06/12/25 23:17 Temperature 36.9 C Pulse Rate 81 78 73 Respiratory Rate 18 17 Blood Pressure 129/61 Pulse Oximetry 95 Oxygen Delivery Oxygen Flow Rate Fraction of Inspired Oxygen 06/13/25 00:00 06/13/25 00:00 06/13/25 00:34 Temperature Pulse Rate 72 70 Respiratory Rate 23 H Blood Pressure Pulse Oximetry 95 95 Oxygen Delivery BiPAP BiPAP Oxygen Flow Rate Fraction of Inspired Oxygen 06/13/25 02:00 06/13/25 02:35 06/13/25 03:53 Temperature 36.9 C Pulse Rate 62 59 L 59 L Respiratory Rate 20 16 Blood Pressure 135/65 Pulse Oximetry 100 Oxygen Delivery Oxygen Flow Rate Fraction of Inspired Oxygen 06/13/25 04:00 06/13/25 04:40 06/13/25 06:00 Temperature Pulse Rate 69 69 Respiratory Rate Blood Pressure Pulse Oximetry 95 Oxygen Delivery Nasal Cannula Oxygen Flow Rate 3 Fraction of Inspired Oxygen 06/13/25 07:12 06/13/25 07:17 06/13/25 07:26 Temperature Pulse Rate 68 70 74 Respiratory Rate 20 18 20 Blood Pressure Pulse Oximetry 95 Oxygen Delivery Nasal Cannula Oxygen Flow Rate 3 Fraction of Inspired Oxygen 06/13/25 08:00 06/13/25 08:21 06/13/25 10:00 Temperature 36.8 C Pulse Rate 71 72 77 Respiratory Rate 20 Blood Pressure 148/67 H Pulse Oximetry 100 Oxygen Delivery Oxygen Flow Rate Fraction of Inspired Oxygen 06/13/25 11:29 06/13/25 12:00 06/13/25 13:43 Temperature 36.8 C Pulse Rate 78 85 84 Respiratory Rate 18 20 Blood Pressure 104/68 Pulse Oximetry 94 Oxygen Delivery Oxygen Flow Rate Fraction of Inspired Oxygen 06/13/25 13:55 06/13/25 13:58 Temperature Pulse Rate 88 89 Respiratory Rate 20 Blood Pressure Pulse Oximetry Oxygen Delivery Oxygen Flow Rate Fraction of Inspired Oxygen Intake/Output Intake/Output: Intake & Output 06/10/25 06/11/25 06/12/25 06/13/25 23:59 23:59 23:59 23:59 Intake Total 2000 1030 Output Total 200 2300 300 Balance 1800 -1270 -300 Meds/Results Medications: Active Medications Generic Name Dose Route Start Last Admin Trade Name Freq PRN Reason Stop Dose Admin Acetaminophen 650 mg 06/11/25 16:14 06/12/25 21:50 Acetaminophen 325 Mg Tablet PO 650 mg Q6H PRN Administration Mild Pain (1-3) or Fever Acetylcysteine 200 mg 06/12/25 20:00 06/13/25 07:10 Acetylcysteine 20% Inhal Soln 800 Mg/4 Ml Vial INHALATION 200 mg Q12HRT AALIYAH Administration Albuterol/Ipratropium 3 ml 06/12/25 02:00 06/13/25 13:43 Ipratropium 0.5 Mg/Albuterol Sulfate 2.5 Mg Ampul.Neb 3 Ml INHALATION 3 ml Q6HRT AALIYAH Administration Lipase/Protease/Amylase 4 cap 06/12/25 08:00 06/13/25 13:12 Lipase/Amylase/Protease 12,000 Units Cap PO 4 cap TIDWM AALIYAH Administration Apixaban 2.5 mg 06/12/25 09:00 06/13/25 09:01 Apixaban 2.5 Mg Tablet PO 2.5 mg Q12HR AALIYAH Administration Artificial Tears 1 drop 06/11/25 21:00 06/13/25 10:17 Artificial Tears Ophth Soln 15 Ml Bottle EACH EYE 1 drop Q12HR AALIYAH Administration Ascorbic Acid 500 mg 06/12/25 09:00 06/13/25 09:01 Ascorbic Acid 500 Mg Tablet PO 500 mg BID AALIYAH Administration Atorvastatin Calcium 40 mg 06/11/25 18:00 06/12/25 17:02 Atorvastatin 40 Mg Tablet PO 40 mg QPM AALIYAH Administration Benzonatate 100 mg 06/11/25 16:14 Benzonatate 100 Mg Capsule PO TID PRN Cough Bisacodyl 10 mg 06/11/25 16:17 Bisacodyl 10 Mg Suppository RECTAL DAILY PRN Constipation Budesonide 0.5 mg 06/12/25 08:00 06/13/25 07:10 Budesonide Respule Neb 0.5 Mg/2 Ml Amp INHALATION 0.5 mg Q12HRT AALIYAH Administration Bupropion HCl 75 mg 06/12/25 09:00 06/13/25 09:01 Bupropion Hcl 75 Mg Tablet PO 75 mg DAILY AALIYAH Administration Diclofenac Sodium 1 applic 06/12/25 09:00 06/13/25 10:17 Diclofenac Sodium 1% 100 Gm Gel (*Bkc) TOPICAL 1 applic Q12HR AALIYAH Administration Diclofenac Sodium 50 mg 06/11/25 21:53 Diclofenac Sod 25 Mg Tablet.Ec PO Q12H PRN Inflammation Fish Oil 1 gm 06/12/25 09:00 06/13/25 09:01 [place] 3 Polyunsat Fatty Acids 1 Gm Cap PO 1 gm DAILY AALIYAH Administration Fluticasone Propionate 1 spray 06/12/25 09:00 06/13/25 10:17 Fluticasone Propionate 0.05% Na Spr 16 Gm Btl (*Bkc) NASAL 1 spray Q12HR AALIYAH Administration Folic Acid 1 mg 06/12/25 09:00 06/13/25 09:00 Folic Acid 1 Mg Tablet PO 1 mg DAILY AALIYAH Administration Furosemide 40 mg 06/12/25 09:00 06/13/25 09:02 Furosemide 40 Mg Tablet PO 20 mg QAM AALIYAH Administration Guaifenesin 600 mg 06/11/25 21:00 06/13/25 09:00 Guaifenesin 12 Hr 600 Mg Tabcr PO 600 mg Q12HR AALIYAH Administration Hydrocortisone 1 applic 06/11/25 21:53 06/12/25 21:41 Hydrocortisone 2.5% Cream 30 Gm Tube TOPICAL 1 applic QID PRN Administration Itching Levofloxacin/Dextrose 750 mg in 150 mls @ 100 mls/hr 06/13/25 15:00 Levaquin 750 Mg/D5w 150 Ml IVPB Q48H AALIYAH Doxycycline Hyclate 100 mg/ 100 mls @ 100 mls/hr 06/12/25 21:00 06/13/25 09:03 Sodium Chloride IVPB 100 mls/hr Q12H AALIYAH Administration Lactobacillus Acidophilus 1 tablet 06/12/25 09:00 06/13/25 09:00 Acidophilus/Bulgaricus Chewable Tablet PO 1 tablet BID AALIYAH Administration Loperamide HCl 2 mg 06/11/25 21:53 Loperamide Hcl 2 Mg Capsule PO Q12H PRN Diarrhea Loratadine 10 mg 06/11/25 22:15 06/12/25 21:39 Loratadine 10 Mg Tablet PO 10 mg QHS AALIYAH Administration Methotrexate 7.5 mg 06/15/25 09:00 Methotrexate 2.5 Mg Tab (*Chemo) PO WEEKLY [facility] Multi-Ingred Cream/Lotion/Oil/Oint 1 applic 06/12/25 09:00 06/13/25 10:17 Eucerin Cream 120 Gm Jar TOPICAL 1 applic DAILY AALIYAH Administration Multivitamins Therapeutic 1 tablet 06/12/25 09:00 06/13/25 09:00 Multivitamins Therapeutic Tab (*Bkc) PO 1 tablet DAILY AALIYAH Administration Pantoprazole Sodium 40 mg 06/12/25 09:00 06/13/25 09:00 Pantoprazole 40 Mg Tablet PO 40 mg QAM AALIYAH Administration Phenyleph/Shark Oil/Min Oil/Petrol 1 applic 06/11/25 21:53 Phenyleph/Shark Oil/Mo/Petrol Cream 26 Gm RECTAL BID PRN Hemorrhoids Pregabalin 150 mg 06/12/25 09:00 06/13/25 09:01 Pregabalin (*Crx) 75 Mg Capsule PO 150 mg BID AALIYAH Administration Senna 8.6 mg 06/12/25 09:00 06/13/25 09:00 Sennosides 8.6 Mg Tablet PO Not Given Q12HR [facility] Triamcinolone Acetonide 1 applic 06/12/25 11:02 06/13/25 10:18 Triamcinolone Acet 0.1% Cream 15 Gm Tube TOPICAL 1 applic Q12HR AALIYAH Administration Umeclidinium/Vilanterol 1 puff 06/12/25 08:00 06/13/25 07:14 Umeclidinium/Vilanterol 62.5-25 Mcg Ellipta INHALATION 1 puff DAILYRT AALIYAH Administration Vitamin D 25 mcg 06/12/25 09:00 06/13/25 09:00 Cholecalciferol (Vitamin D3) 25 Mcg (1,000 Units) Tablet PO 25 mcg DAILY AALIYAH Administration Radiology Results: ITS Impressions Chest X-Ray 06/11/25 14:51 Impression: 1: Chronic multifocal airspace disease, differential diagnosis includes chronic infection (e.G. atypical mycobacterial infection), organizing pneumonia and chronic inflammatory conditions such as sarcoidosis or vasculitis. Head CT 06/11/25 17:22 IMPRESSION: 1. No acute intracranial abnormality. 2: Chronic left cerebellar and lacunar infarctions. Chest/Abdomen/Pelvis CT 06/12/25 17:32 IMPRESSION: 1. Bilateral patchy consolidation with coarse interstitial changes predominantly affecting the upper lobes. There is associated interlobular septal thickening and mild bronchiectasis of the lingula. Differential diagnosis includes chronic infection, chronic interstitial lung disease and postinflammatory scarring/fibrosis. 2: Acute sigmoid diverticulitis with possible small peridiverticular abscess. Cannot exclude underlying sigmoid mass. Recommend GI consultation for evaluation when the patient's condition permits. Modified Barium Swallow 06/13/25 11:26 IMPRESSION: Patient tolerated regular consistency oral feedings in the upright position. Please correlate with speech pathologist findings and specific feeding recommendations. Labs Labs: Laboratory Results - last 24 hr 06/12/25 06/12/25 03:24 12:12 Vent Rate 16 Expiratory Pressure 5 Inspiratory Pressure 15 M.pneumoniae IgM Titer <770 Quality VTE Prophylaxis VTE prophylaxis: pharmacologic ordered
--- NOTE | 2025-06-13 15:59 | PM.PNPUL ---
Progress Note: A&P Assessment and Plan (1) Recurrent pneumonia: Code(s): J18.9 - Pneumonia, unspecified organism Status: Acute Assessment and Plan: Doxycycline and Levaquin IV, vanco was stopped. She coughs but does not expectorate sputum. Her Speech Evaluation and modified barium swallow were both negative for aspiration. Her granddaughter says that often she coughs with eating. This suggests that she has mild silent aspiration,not able to be detected on the usual testing. She has had recurrent pneumonias over last 3 months. History of dementia and several TIAs. Dr Browning has placed her on a level 6 diet, Soft and Bite sized, so not a regular diet. This may help decreased risk of aspiration. (2) COPD (chronic obstructive pulmonary disease): Qualifiers: COPD type: unspecified COPD Qualified Code(s): J44.9 - Chronic obstructive pulmonary disease, unspecified Code(s): J44.9 - Chronic obstructive pulmonary disease, unspecified Status: Chronic Assessment and Plan: GOLD grade 2 group E COPD. At the [place], she has been on Anoro ( ) budesonide nebulized bid, albuterol neb PRN and albuterol-ipratropium neb q.i.d p.r.n. wheezing or shortness of breath. This last med, duoneb, needs to be stopped as she is on Anoro, has anticholinergic, overlaps with ipratropium. Last pulmonary function test 02/02/2023 FEV1 0.81 L, 43% extremely low; FEV1% = 46% consistent with airflow obstruction TLC 107%, residual volume 2.78 L, 120% She is on budesonide nebulized bid and albuterol-ipratropium qid. This is adequate for bronchodilator therapy while she is here. At discharge, she can go to [place] on Anoro ONE puff a day, budesonide nebulized bid and prn albuterol nebulized. If her insurance covers Trelegy, it would be a smarted therapeutic substitution for Anoro & budesonide. (3) ILD (interstitial lung disease): Code(s): J84.9 - Interstitial pulmonary disease, unspecified Status: Chronic Assessment and Plan: This was first noted chest CT 05/07/2013 patchy bibasilar linear airspace disease. Serologies negative 01/2019 (Anti-Centromere neg, dsDNA neg, MOHSEN neg, Jo1 neg, Anti-[employer] neg, SCL-70 neg, Anti-SSA/B neg, RF neg. DLCO - 4.7, 25% predicted, DLCO/VA - 3.63, 87% predicted. Jun 12, [address] - Bilateral patchy consolidation with coarse interstitial changes predominantly affecting the upper lobes. There is associated interlobular septal thickening and mild bronchiectasis of the lingula. Differential diagnosis includes chronic infection, chronic interstitial lung disease and postinflammatory scarring/fibrosis. (4) Acute on chronic respiratory failure with hypoxia and hypercapnia: Code(s): J96.21 - Acute and chronic respiratory failure with hypoxia; J96.22 - Acute and chronic respiratory failure with hypercapnia Status: Acute Assessment and Plan: She had mild acute on chronic respiratory acidosis on admission, pH was slightly low, pCO2 running in the 50s. At home normally wears 3L around the clock, was found off oxygen with low saturation and decreased level of consciousness, did not respond or return to normal functioning when oxygen was applied. She has no memory of what happened prior to admission due to hypoxemia and poor brain function. She is on 3 L/min with sat 94-97% Continue oxygen use, she benefits from this, has been on O2 for several years. She will need Home O2 study prior to discharge. The patient really does not get up and walk, does not want to be active. She tells me that she does, however her granddaughter provides reliable information. THe patent has poor memory/ Plan plan: Her Speech Evaluation & MBS today both normal. She is now on level 6 soft bite. This may help to reduce progression of ILD which can be aggravated by aspiration. Doxycycline and Levaquin to cover pneumonia in patient with recent admissions. No organisms recovered so far, and she has not been able to submit a sputum. Continue bronchodilator therapy. Mucolytics -Mucomyst 20% nebulized b.i.d., Cornet valve, positive expiratory pressure to help clear secretions. Subjective Date/time seen: 06/13/25 15:59 Interval history: hospital follow up visit: 06/13/25; The patient is sitting up in bed, and her granddaughter, Stefanie, is visiting. She was able to supplement the history, and I showed her the imaging, CXR and CT scan. The patient had a Speech Evaluation followed by a Modified Barium Swallow today which was normal. I was expecting this to be abnormal given her recurrent pneumonias. She has had significant vomiting which is an uncontrolled process. Even though her evaluation was negative for aspiration, she could have had aspiration. She frequently has coughing with eating, and Stefanie and her have both performed the Heimlich maneuver several times over the years. She is now on Soft nad Bite sized diet starting today The patient has had esophageal strictures in the past, has had dilations, none for 6-7 years. She used to see CARMELA Woo, in [place]. When she entered [place] 6 years ago, she stopped going to see GI. 06/13/2025 Modified Barium Swallow: FINDINGS: Oral stage: Adequate function but with delayed oral prep solids secondary to absent dentition. Pharyngeal stage: Adequate function. Cervical/esophageal stage: Adequate function. IMPRESSION: Patient tolerated regular consistency oral feedings in the upright position 06/12/2025, new consult; Gabbi Champagne is an 80-year-old woman admitted June 11 with altered level of consciousness after being found off of her oxygen at the [facility] [facility]. She was hypotensive, blood pressure 79/47; she was placed on O2 with some improvement in mentation. She had an elevated white blood cell count of 23.2 K and moderate elevation in pCO2 64.7. She is not able to remember much about what was happening before she was admitted. She says that she had no cough, wheezing, shortness of breath or sputum. Today she had coughing with moderate amounts of sputum, sitting in tissue on bedside table. She said that this is new, rarely has this at home. She does not recall having the O2 off, does not remember having abdominal pain or loose stools. She apparently meets criteria for sepsis with significant hypotension, 79/47, in ED, lactic acid 1., suspected source is pneumonia. Her CXR is abnormal, but she has interstitial lung disease diagnosed several years ago, imaging is slightly worse than a few months ago. Due to having recurrent pneumonia requiring admission 3 times since March, I will request Speech Evaluation to exclude silent aspiration especially with her history of strokes and dementia. I will order QuantiFERON gold for M tb. She had a negative MOHSEN cascade in 2021, decreasing the likelihood that her infiltrates are due to vasculitis or other autoimmune condition. Radiologist includes in the differential chronic infection, organizing pneumonia, chronic inflammatory conditions such as sarcoidosis or vasculitis. Sarcoidosis is often a diagnosis of exclusion, and sarcoidosis for requires biopsy of a nodule or lymph node to confirm noncaseating granulomas. I believe that the radiologist was thorough in the interpretation, however this 80 year woman does not need a biopsy of anything at this time to pursue one of these diagnoses. She is known to our service, last office visit April 18, 2024, for COPD, hypoxemic and hypercapnic respiratory failure on O2 @3L/min, interstitial lung disease, restless legs syndrome, and PE. She has been living at [facility]. 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 She has some shortness of breath due to anxiety. At that visit she was on Anoro 1 puff daily and nebulized albuterol p.r.n. about once a day for shortness of breath. She tells me that she has sensitivity to cats, does not live with cats; may have allergic reactions to other substances but can not identify any of these, does not think she has problems with pollen, grass, trees or dust. She had 2 admissions over the summer, March 19 until April 01 for diverticular disease with pneumonia April 18 through the for decreased mental status, hypotensive; central line with pressors overdose of opioids Narcan and help but did not sustain alertness, diverticulitis, hypercapnic hypoxemic respiratory failure, discharge back to [facility] on Augmentin. 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 PMH: pulmonary embolism 2020, pulmonary arterial hypertension, chronic interstitial lung disease, peripheral vascular disease, CVA, anemia of chronic disease, hyperlipidemia, hypertension, chronic respiratory failure with hypoxia and hypercapnia on 3L nasal cannula, COPD, CHF, osteoporosis, anxiety/depression, dementia, pancreatitis with stents and previous GI bleed. C diff in 2020. DATA * 06/12/[address]; Bilateral patchy consolidation with coarse interstitial changes predominantly affecting the upper lobes. There is associated interlobular septal thickening and mild bronchiectasis of the lingula. Differential diagnosis includes chronic infection, chronic interstitial lung disease and postinflammatory scarring/fibrosis. 2: Acute sigmoid diverticulitis with possible small peridiverticular abscess. Cannot exclude underlying sigmoid mass. Recommend GI consultation for evaluation when the patient's condition permits. * 06/11/2025 CXR : Impression: 1: Chronic multifocal airspace disease, differential diagnosis includes chronic infection (e.G. atypical mycobacterial infection), organizing pneumonia and chronic inflammatory conditions such as sarcoidosis or vasculitis. Review of Systems Review of Systems: All systems reviewed & are unremarkable except as noted in HPI and below Exam Narrative: GEN: Alert, oriented, not in distress. Pleasant. Decreased memory. She is asking about going home tomorrow. HEENT: pupils are equal, EOMI, symmetrical face; oral membranes moist, edentulous, Mallampati III airway. No sinus tenderness. NECK: Trachea is midline CHEST: Equal air entry, symmetric excursion, crackles both bases, overall good air entry. CV: Regular S1S2 no m/g/r Extremities : no clubbing, no cyanosis, no significant edema PSYCH: normal mood. Gait not tested. Speech is normal. Objective Data Vital Signs Vital Signs: Vital Signs - 24 hr 06/12/25 16:00 06/12/25 16:00 06/12/25 16:13 Temperature 36.7 C Pulse Rate 83 79 Respiratory Rate 30 H Blood Pressure 108/52 L Pulse Oximetry 96 94 Oxygen Delivery BiPAP Oxygen Flow Rate Fraction of Inspired Oxygen 28 06/12/25 18:00 06/12/25 20:00 06/12/25 20:00 Temperature 36.9 C Pulse Rate 90 78 79 Respiratory Rate 18 17 Blood Pressure 119/59 L Pulse Oximetry 98 Oxygen Delivery Oxygen Flow Rate Fraction of Inspired Oxygen 06/12/25 20:00 06/12/25 20:13 06/12/25 22:00 Temperature Pulse Rate 77 81 78 Respiratory Rate 18 Blood Pressure Pulse Oximetry Oxygen Delivery Oxygen Flow Rate Fraction of Inspired Oxygen 06/12/25 23:17 06/13/25 00:00 06/13/25 00:00 Temperature 36.9 C Pulse Rate 73 72 Respiratory Rate 17 Blood Pressure 129/61 Pulse Oximetry 95 95 Oxygen Delivery BiPAP Oxygen Flow Rate Fraction of Inspired Oxygen 06/13/25 00:34 06/13/25 02:00 06/13/25 02:35 Temperature Pulse Rate 70 62 59 L Respiratory Rate 23 H 20 Blood Pressure Pulse Oximetry 95 Oxygen Delivery BiPAP Oxygen Flow Rate Fraction of Inspired Oxygen 06/13/25 03:53 06/13/25 04:00 06/13/25 04:40 Temperature 36.9 C Pulse Rate 59 L 69 Respiratory Rate 16 Blood Pressure 135/65 Pulse Oximetry 100 95 Oxygen Delivery Nasal Cannula Oxygen Flow Rate 3 Fraction of Inspired Oxygen 06/13/25 06:00 06/13/25 07:12 06/13/25 07:17 Temperature Pulse Rate 69 68 70 Respiratory Rate 20 18 Blood Pressure Pulse Oximetry 95 Oxygen Delivery Nasal Cannula Oxygen Flow Rate 3 Fraction of Inspired Oxygen 06/13/25 07:26 06/13/25 08:00 06/13/25 08:21 Temperature 36.8 C Pulse Rate 74 71 72 Respiratory Rate 20 20 Blood Pressure 148/67 H Pulse Oximetry 100 Oxygen Delivery Oxygen Flow Rate Fraction of Inspired Oxygen 06/13/25 10:00 06/13/25 11:29 06/13/25 12:00 Temperature 36.8 C Pulse Rate 77 78 85 Respiratory Rate 18 Blood Pressure 104/68 Pulse Oximetry 94 Oxygen Delivery Oxygen Flow Rate Fraction of Inspired Oxygen 06/13/25 13:43 06/13/25 13:55 06/13/25 13:58 Temperature Pulse Rate 84 88 89 Respiratory Rate 20 20 Blood Pressure Pulse Oximetry Oxygen Delivery Oxygen Flow Rate Fraction of Inspired Oxygen Intake/Output Intake/Output: Intake & Output 06/10/25 06/11/25 06/12/25 06/13/25 23:59 23:59 23:59 23:59 Intake Total 19990 Output Total 200 2300 300 Balance 1800 -1270 -300 Meds/Results Medications: Active Medications Generic Name Dose Route Start Last Admin Trade Name Freq PRN Reason Stop Dose Admin Acetaminophen 650 mg 06/11/25 16:14 06/12/25 21:50 Acetaminophen 325 Mg Tablet PO 650 mg Q6H PRN Administration Mild Pain (1-3) or Fever Acetylcysteine 200 mg 06/12/25 20:00 06/13/25 07:10 Acetylcysteine 20% Inhal Soln 800 Mg/4 Ml Vial INHALATION 200 mg Q12HRT DOC Administration Albuterol/Ipratropium 3 ml 06/12/25 02:00 06/13/25 13:43 Ipratropium 0.5 Mg/Albuterol Sulfate 2.5 Mg Ampul.Neb 3 Ml INHALATION 3 ml Q6HRT DOC Administration Lipase/Protease/Amylase 4 cap 06/12/25 08:00 06/13/25 13:12 Lipase/Amylase/Protease 12,000 Units Cap PO 4 cap TIDWM DOC Administration Apixaban 2.5 mg 06/12/25 09:00 06/13/25 09:01 Apixaban 2.5 Mg Tablet PO 2.5 mg Q12HR DOC Administration Artificial Tears 1 drop 06/11/25 21:00 06/13/25 10:17 Artificial Tears Ophth Soln 15 Ml Bottle EACH EYE 1 drop Q12HR DOC Administration Ascorbic Acid 500 mg 06/12/25 09:00 06/13/25 09:01 Ascorbic Acid 500 Mg Tablet PO 500 mg BID DOC Administration Atorvastatin Calcium 40 mg 06/11/25 18:00 06/12/25 17:02 Atorvastatin 40 Mg Tablet PO 40 mg QPM DOC Administration Benzonatate 100 mg 06/11/25 16:14 Benzonatate 100 Mg Capsule PO TID PRN Cough Bisacodyl 10 mg 06/11/25 16:17 Bisacodyl 10 Mg Suppository RECTAL DAILY PRN Constipation Budesonide 0.5 mg 06/12/25 08:00 06/13/25 07:10 Budesonide Respule Neb 0.5 Mg/2 Ml Amp INHALATION 0.5 mg Q12HRT DOC Administration Bupropion HCl 75 mg 06/12/25 09:00 06/13/25 09:01 Bupropion Hcl 75 Mg Tablet PO 75 mg DAILY DOC Administration Diclofenac Sodium 1 applic 06/12/25 09:00 06/13/25 10:17 Diclofenac Sodium 1% 100 Gm Gel (*Bkc) TOPICAL 1 applic Q12HR DOC Administration Fish Oil 1 gm 06/12/25 09:00 06/13/25 09:01 [place] 3 Polyunsat Fatty Acids 1 Gm Cap PO 1 gm DAILY DOC Administration Fluticasone Propionate 1 spray 06/12/25 09:00 06/13/25 10:17 Fluticasone Propionate 0.05% Na Spr 16 Gm Btl (*Bkc) NASAL 1 spray Q12HR DOC Administration Folic Acid 1 mg 06/12/25 09:00 06/13/25 09:00 Folic Acid 1 Mg Tablet PO 1 mg DAILY DOC Administration Furosemide 40 mg 06/12/25 09:00 06/13/25 09:02 Furosemide 40 Mg Tablet PO 20 mg QAM DOC Administration Guaifenesin 600 mg 06/11/25 21:00 06/13/25 09:00 Guaifenesin 12 Hr 600 Mg Tabcr PO 600 mg Q12HR DOC Administration Hydrocortisone 1 applic 06/11/25 21:53 06/12/25 21:41 Hydrocortisone 2.5% Cream 30 Gm Tube TOPICAL 1 applic QID PRN Administration Itching Levofloxacin/Dextrose 750 mg in 150 mls @ 100 mls/hr 06/13/25 15:00 Levaquin 750 Mg/D5w 150 Ml IVPB Q48H DOC Doxycycline Hyclate 100 mg/ 100 mls @ 100 mls/hr 06/12/25 21:00 06/13/25 09:03 Sodium Chloride IVPB 100 mls/hr Q12H DOC Administration Lactobacillus Acidophilus 1 tablet 06/12/25 09:00 06/13/25 09:00 Acidophilus/Bulgaricus Chewable Tablet PO 1 tablet BID DOC Administration Loperamide HCl 2 mg 06/11/25 21:53 Loperamide Hcl 2 Mg Capsule PO Q12H PRN Diarrhea Loratadine 10 mg 06/11/25 22:15 06/12/25 21:39 Loratadine 10 Mg Tablet PO 10 mg QHS DOC Administration Methotrexate 7.5 mg 06/15/25 09:00 Methotrexate 2.5 Mg Tab (*Chemo) PO WEEKLY DOC Multi-Ingred Cream/Lotion/Oil/Oint 1 applic 06/12/25 09:00 06/13/25 10:17 Eucerin Cream 120 Gm Jar TOPICAL 1 applic DAILY DOC Administration Multivitamins Therapeutic 1 tablet 06/12/25 09:00 06/13/25 09:00 Multivitamins Therapeutic Tab (*Bkc) PO 1 tablet DAILY DOC Administration Pantoprazole Sodium 40 mg 06/12/25 09:00 06/13/25 09:00 Pantoprazole 40 Mg Tablet PO 40 mg QAM DOC Administration Phenyleph/Shark Oil/Min Oil/Petrol 1 applic 06/11/25 21:53 Phenyleph/Shark Oil/Mo/Petrol Cream 26 Gm RECTAL BID PRN Hemorrhoids Pregabalin 150 mg 06/12/25 09:00 06/13/25 09:01 Pregabalin (*Crx) 75 Mg Capsule PO 150 mg BID DOC Administration Senna 8.6 mg 06/12/25 09:00 06/13/25 09:00 Sennosides 8.6 Mg Tablet PO Not Given Q12HR [facility] Triamcinolone Acetonide 1 applic 06/12/25 11:02 06/13/25 10:18 Triamcinolone Acet 0.1% Cream 15 Gm Tube TOPICAL 1 applic Q12HR DOC Administration Umeclidinium/Vilanterol 1 puff 06/12/25 08:00 06/13/25 07:14 Umeclidinium/Vilanterol 62.5-25 Mcg Ellipta INHALATION 1 puff DAILYRT DOC Administration Vitamin D 25 mcg 06/12/25 09:00 06/13/25 09:00 Cholecalciferol (Vitamin D3) 25 Mcg (1,000 Units) Tablet PO 25 mcg DAILY DOC Administration Radiology Results: ITS Impressions Chest X-Ray 06/11/25 14:51 Impression: 1: Chronic multifocal airspace disease, differential diagnosis includes chronic infection (e.G. atypical mycobacterial infection), organizing pneumonia and chronic inflammatory conditions such as sarcoidosis or vasculitis. Head CT 06/11/25 17:22 IMPRESSION: 1. No acute intracranial abnormality. 2: Chronic left cerebellar and lacunar infarctions. Chest/Abdomen/Pelvis CT 06/12/25 17:32 IMPRESSION: 1. Bilateral patchy consolidation with coarse interstitial changes predominantly affecting the upper lobes. There is associated interlobular septal thickening and mild bronchiectasis of the lingula. Differential diagnosis includes chronic infection, chronic interstitial lung disease and postinflammatory scarring/fibrosis. 2: Acute sigmoid diverticulitis with possible small peridiverticular abscess. Cannot exclude underlying sigmoid mass. Recommend GI consultation for evaluation when the patient's condition permits. Modified Barium Swallow 06/13/25 11:26 IMPRESSION: Patient tolerated regular consistency oral feedings in the upright position. Please correlate with speech pathologist findings and specific feeding recommendations. Labs Labs: Laboratory Results - last 24 hr 06/12/25 06/12/25 03:24 12:12 Vent Rate 16 Expiratory Pressure 5 Inspiratory Pressure 15 M.pneumoniae IgM Titer <770
[2025-06-13] MEDS: levoFLOXacin 750 MG/D5W 150 ML 750 MG/150 ML BAG 100 MG IVPB (16:29)
--- NOTE | 2025-06-13 19:53 | PC.NURSE ---
Jeaneth Alvarado called for maalox due to upset stomach. Ok with ordering maalox.
[2025-06-13] MEDS: MAG HYDROX/AL HYDROX/SIMETH 30 ML UDC PO (20:10)
[2025-06-13] MEDS: ACETAMINOPHEN 325 MG TABLET 650 MG PO (20:11)
[2025-06-13] MEDS: ATORVASTATIN 40 MG TABLET PO (20:12)
[2025-06-13] MEDS: LORATADINE 10 MG TABLET PO (20:12)
[2025-06-14] VITALS (21 sets, daily range): BP systolic 128–158; BP diastolic 62–78; PULSE 70–92; RESP 16–20; TEMP 36.6–36.8; O2SAT 93–100
[2025-06-14] MEDS: IPRATROPIUM 0.5 MG/ALBUTEROL SULFATE 2.5 MG AMPUL.NEB 3 ML INHALATION ×4 (02:08→21:30)
[2025-06-14 04:29] LABS: Hematocrit 29.8 % (37.0-47.0); Hemoglobin 9.2 g/dL (12.0-15.0); Mean Corpuscular HGB Conc 30.9 g/dl (32-36); Mean Corpuscular Hemoglobin 30.5 pg (26-34); Mean Corpuscular Volume 98.7 fl (80-100); Platelet Count Result 243 k/mm3 (150-375); Red Blood Count 3.02 M/mm3 (4.2-5.4); White Blood Count 8.3 K/mm3 (4.5-10.0)
[2025-06-14] MEDS: ACETYLCYSTEINE 20% INHAL SOLN 800 MG/4 ML VIAL 200 MG INHALATION ×2 (07:30→21:30)
[2025-06-14] MEDS: UMECLIDINIUM/VILANTEROL 62.5-25 MCG ELLIPTA 1 PUFF INHALATION (07:30)
[2025-06-14] MEDS: BUDESONIDE RESPULE NEB 0.5 MG/2 ML AMP INHALATION ×2 (07:35→21:30)
--- NOTE | 2025-06-14 08:16 | P.PNIM_ITS ---
Progress Note: A&P Assessment and Plan (1) Sepsis: Qualifiers: Acute respiratory failure type: with hypercapnia Sepsis acute organ dysfunction status: with acute organ dysfunction Sepsis type: sepsis due to uns pecified organism Severe sepsis acute organ dysfunction type: acute respiratory failure Severe sepsis shock status: unspecified Qualified Code(s): A41.9 - Sepsis, unspecified organism; R65.20 - Severe sepsis without septic shock; J96.02 - Acute respiratory failure with hypercapnia Code(s): A41.9 - Sepsis, unspecified organism Status: Acute Assessment and Plan: Concern for sepsis due to significant hypotension, 79/47 upon arrival increasing concerns for shock. has responded to IV fluids. - lactic acid: 1.9 - 30 mL/kg = 2.1, 1.5 L given due to CHF history. Tolerated well. 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 atypical mycobacterial infection), organizing pneumonia and chronic inflammatory conditions such as sarcoidosis or vasculitis. - admission to IMU for close hemodynamic monitoring, BP remains soft, improved --Check CT chest/abd/pelvis with recent diverticulitis and now pneumonia 06/14: Currently on Levaquin and doxycycline. CT scan chest which was performed on 06/12 which shows bilateral patchy consolidation. Acute sigmoid diverticulitis with the spine possible small sarath diverticular abscess. GI was consulted in place thickened sigmoid does not implicate acute diverticulitis since it may be a sequelae of recent diverticulitis and suggest the radiological changes takes weeks or even months to resolve. Blood culture and urine culture no growth. Patient is currently on 3 L nasal cannula saturating at 97%. (2) Acute on chronic respiratory failure with hypoxia and hypercapnia: Code(s): J96.21 - Acute and chronic respiratory failure with hypoxia; J96.22 - Acute and chronic respiratory failure with hypercapnia Status: Acute Assessment and Plan: Patient reportedly non compliant with her supplemental oxygen that she is supposed to be on at baseline, 3 L nasal cannula. Has history of COPD and chronic interstitial lung disease. Despite replacement of nasal cannula at the patient's facility, the patient remained altered. Initial ABG significant for a CO2 of 64.7. She was placed on BiPAP in the ED on 06/11. Will plan for repeat ABG this evening, if CO2 improved to baseline will titrate patient to nasal cannula. Will continue supplemental oxygen to maintain O2 sat greater than 92%, may wean to 3L nasal cannula. ABG 06/04 7.315/64.7/85.8/32.3. Repeat ABG CO2 of 51.2, continued BiPAP. ABG's this morning still hypercarbic but not acidotic --pulmonary consult (3) Altered mental status: Qualifiers: Altered mental status type: disorientation Qualified Code(s): R41.0 - Disorientation, unspecified Code(s): R41.82 - Altered mental status, unspecified Status: Acute Assessment and Plan: Check head CT >> no acute intracranial abnormality, chronic left cerebellar and lacunar infarctions CO2 elevated, suspect CO2 narcosis as etiology for patient's alteration due to noncompliance with supplemental O2. Started on BiPAP on 06/11, plan for repeat ABG. - significant leukocytosis of 23.2, when compared to previous the patient was 12.4 on 05/05. CXR concerning for superimposed pneumonia, see plan below. May be contributing to patient's alteration via metabolic encephalopathy. Patient additionally has had chronic diarrhea since April and endorsing lower abdominal pain, checking CT. Has history of diverticulitis with abscess and septic shock. - neurological checks q.6 - reviewed home medications. hold baclofen, Benadryl, Clawson, trazodone until mental status improved. (4) Pneumonia: Qualifiers: Laterality: bilateral Lung location: lower lobe of lung Pneumonia type: due to unspecified organism Qualified Code(s): J18.9 - Pneumonia, unspecified organism Code(s): J18.9 - Pneumonia, unspecified organism Status: Acute Assessment and Plan: See CXR impression above - risk factors and complicating factors: CO2 narcosis, previously positive MRSA, ILD - started on Levaquin and vancomycin on 06/11. Change Vanc to doxy - check MRSA PCR, previously positive on 04/23/2025 - Viral PCR completed on 06/11 >> negative - check sputum culture, Legionella, mycoplasma, pneumococcal - supportive care: [facility], Tessalon Perles p.r.n., Tylenol p.r.n., [facility] (5) Diarrhea: Qualifiers: Diarrhea type: unspecified type Qualified Code(s): R19.7 - Diarrhea, unspecified Code(s): R19.7 - Diarrhea, unspecified Status: Acute Assessment and Plan: Patient has history of diverticulitis with abscess and septic shock in April of 2025. During this admission she does not negative for C diff. diarrhea has been persistent since April and is currently being treated with Lomotil and Metamucil outpatient. Will continue both medications. - No abdominal pain or diarrhea today. Hold off on stool studies. Had a formed BM per RN. --CT since recent diverticulitis - hold MiraLax and magnesium citrate (6) COPD (chronic obstructive pulmonary disease): Qualifiers: COPD type: unspecified COPD Qualified Code(s): J44.9 - Chronic obstructive pulmonary disease, unspecified Code(s): J44.9 - Chronic obstructive pulmonary disease, unspecified Status: Chronic Assessment and Plan: Rare wheezing on exam, patient did not endorse a productive cough decreasing concerns for a acute exacerbation of COPD - Gonzalo scheduled - started on broad-spectrum antibiotics due to concern for pneumonia (7) CHF (congestive heart failure): Qualifiers: Heart failure chronicity: chronic Heart failure type: unspecified Qualified Code(s): I50.9 - Heart failure, unspecified Code(s): I50.9 - Heart failure, unspecified Status: Chronic Assessment and Plan: No evidence of pulmonary edema on CXR or on clinical exam Most recent echo (2022): Normal LV size with mild concentric hypertrophy, EF 60 65%, grade 1 diastolic dysfunction, mild valvular disease noted, mild pulmonary hypertension. See report for details. home medication: Lasix 40 mg daily - monitor I&Os and daily weights - trend renal function (8) Anemia of chronic disease: Code(s): D63.8 - Anemia in other chronic diseases classified elsewhere Status: Chronic Assessment and Plan: Hgb low8 S previously 10.4 on 05/05/2025 - transfuse if <7 - monitor (9) HTN (hypertension): Qualifiers: Hypertension type: unspecified Qualified Code(s): I10 - Essential (primary) hypertension Code(s): I10 - Essential (primary) hypertension Status: Chronic Assessment and Plan: Chronic. Significantly hypotensive upon arrival on 06/11 with a blood pressure of 79/47. Improved with IV fluids, currently 92/60. - hold home medications including: Coreg - monitor (10) Prediabetes: Code(s): R73.03 - Prediabetes Status: Chronic Assessment and Plan: - no A1C on file, BS was 145 upon arrival. Check A1c. Plan Per POA patient has been experiencing multiple e. coli UTIs. She reports they have been resistant previously. UA showed 1+ leuks, otherwise unremarkable. UC was obtained, follow. 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 06/14: Patient is AO x4 at baseline but today. Patient is 3 L nasal cannula at baseline but not complaint. Patient has been treated for pneumonia and persistent diarrhea. Patient is currently on level 6 diet soft and bite sized to decrease risk of aspiration. Patient underwent speech evaluation and modified barium swallow both were negative for aspiration. There is evidence of cough while eating possible silent aspiration. 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 From [facility] All systems reviewed & are unremarkable except as noted in HPI and below (Limited, altered) Exam Narrative: General - Awake and alert. No acute distress Eyes - PERRLA, EOM intact ENT - No thrush, No erythema Neck - No noticeable or palpable swelling Lymph Nodes - No lymphadenopathy Cardiovascular - RRR no m/r/g, no JVD Lungs: Rare wheezing on exam, no use of accessory muscles, no crackles Skin - Skin warm and dry, no wounds or rashes Abdomen - Normal bowel sounds, abdomen soft and nontender Extremities - No edema, cyanosis or clubbing Musculoskeletal - 5/5 strength, normal range of motion, no swollen or erythematous joints. Neurological ? Alert and oriented x 3, CN 2-12 grossly intact. Psych: Normal mood and affect Const: General: comfortable and no acute distress Other: , female, elderly, restless HENMT: Face/Nose/Sinus: Normal nares present Mouth: Yes dry mucous membranes Eyes: General: appearance normal, both eyes and all related structures Sclera: sclerae normal Pupils: Equal, round and reactive pupils present EOM: EOMs intact bilaterally Resp: Other: Increased work of breathing, scattered wheeze in her upper lung goodwin however not consistent. No crackles appreciated. Cardio: Rate: regular rate Rhythm: regular rhythm Other: S1-S2 present without murmur, rub, ectopy GI: Other: Abdomen soft, nondistended, nontender. Normoactive bowel sounds in all quadrants. Skin: General skin exam: normal color and no rashes or lesions noted Wounds: no wounds Neuro: Cranial nerves: Yes Equal, round and reactive pupils present Speech: normal speech Motor exam (neuro): 5/5 motor strength present throughout Sensory Exam: normal sensation Other: A/Ox self, place. Extrem: General: normal to inspection Psych: Affect: normal affect Other: Poor insight and judgment at present, restless. Objective Data Vital Signs Vital Signs: Vital Signs - 24 hr 06/13/25 08:21 06/13/25 10:00 06/13/25 11:29 Temperature 98.3 F 98.3 F Pulse Rate 72 77 78 Respiratory Rate 20 18 Blood Pressure 148/67 H 104/68 Pulse Oximetry 100 94 Oxygen Delivery Oxygen Flow Rate 06/13/25 12:00 06/13/25 13:43 06/13/25 13:55 Temperature Pulse Rate 85 84 88 Respiratory Rate 20 20 Blood Pressure Pulse Oximetry Oxygen Delivery Oxygen Flow Rate 06/13/25 13:58 06/13/25 16:00 06/13/25 16:07 Temperature 97.7 F Pulse Rate 89 75 66 Respiratory Rate 18 Blood Pressure 107/71 Pulse Oximetry 100 Oxygen Delivery Oxygen Flow Rate 06/13/25 18:00 06/13/25 19:50 06/13/25 20:00 Temperature 98.2 F Pulse Rate 86 69 Respiratory Rate 17 Blood Pressure 113/57 L Pulse Oximetry 100 98 Oxygen Delivery Nasal Cannula Oxygen Flow Rate 3 06/13/25 20:00 06/13/25 21:20 06/13/25 21:20 Temperature Pulse Rate 74 69 69 Respiratory Rate 20 18 Blood Pressure Pulse Oximetry 96 Oxygen Delivery Nasal Cannula Oxygen Flow Rate 3 06/13/25 21:28 06/13/25 22:00 06/13/25 23:13 Temperature 97.8 F Pulse Rate 74 67 71 Respiratory Rate 20 17 Blood Pressure 127/65 Pulse Oximetry 100 Oxygen Delivery Oxygen Flow Rate 06/13/25 23:55 06/14/25 00:00 06/14/25 02:00 Temperature Pulse Rate 70 77 Respiratory Rate Blood Pressure Pulse Oximetry Oxygen Delivery Room Air Oxygen Flow Rate 06/14/25 02:09 06/14/25 02:15 06/14/25 03:49 Temperature 97.9 F Pulse Rate 76 71 78 Respiratory Rate 20 20 17 Blood Pressure 158/75 H Pulse Oximetry 100 Oxygen Delivery Oxygen Flow Rate 06/14/25 04:00 06/14/25 04:00 06/14/25 06:00 Temperature Pulse Rate 74 74 Respiratory Rate Blood Pressure Pulse Oximetry Oxygen Delivery Room Air Oxygen Flow Rate 06/14/25 07:30 06/14/25 07:34 06/14/25 07:37 Temperature 98.2 F Pulse Rate 78 77 Respiratory Rate 16 18 Blood Pressure 137/62 Pulse Oximetry 98 97 Oxygen Delivery Nasal Cannula Oxygen Flow Rate 3 06/14/25 07:50 Temperature Pulse Rate 85 Respiratory Rate 16 Blood Pressure Pulse Oximetry Oxygen Delivery Oxygen Flow Rate Intake/Output Intake/Output: Intake & Output 06/11/25 06/12/25 06/13/25 06/14/25 23:59 23:59 23:59 23:59 Intake Total 1999 1030 540 Output Total 200 2300 900 600 Balance 1800 -1270 -360 -600 Meds/Results Medications: Active Medications Generic Name Dose Route Start Last Admin Trade Name Freq PRN Reason Stop Dose Admin Acetaminophen 650 mg 06/11/25 16:14 06/13/25 20:11 Acetaminophen 325 Mg Tablet PO 650 mg Q6H PRN Administration Mild Pain (1-3) or Fever Acetylcysteine 200 mg 06/12/25 20:00 06/14/25 07:30 Acetylcysteine 20% Inhal Soln 800 Mg/4 Ml Vial INHALATION 200 mg Q12HRT DOC Administration Albuterol/Ipratropium 3 ml 06/12/25 02:00 06/14/25 07:30 Ipratropium 0.5 Mg/Albuterol Sulfate 2.5 Mg Ampul.Neb 3 Ml INHALATION 3 ml Q6HRT DOC Administration Lipase/Protease/Amylase 4 cap 06/12/25 08:00 06/13/25 16:29 Lipase/Amylase/Protease 12,000 Units Cap PO 4 cap TIDWM DOC Administration Apixaban 2.5 mg 06/12/25 09:00 06/13/25 20:12 Apixaban 2.5 Mg Tablet PO 2.5 mg Q12HR DOC Administration Artificial Tears 1 drop 06/11/25 21:00 06/13/25 20:15 Artificial Tears Ophth Soln 15 Ml Bottle EACH EYE 1 drop Q12HR DOC Administration Ascorbic Acid 500 mg 06/12/25 09:00 06/13/25 16:29 Ascorbic Acid 500 Mg Tablet PO 500 mg BID DOC Administration Atorvastatin Calcium 40 mg 06/13/25 21:00 06/13/25 20:12 Atorvastatin 40 Mg Tablet PO 40 mg HS DOC Administration Benzonatate 100 mg 06/11/25 16:14 Benzonatate 100 Mg Capsule PO TID PRN Cough Bisacodyl 10 mg 06/11/25 16:17 Bisacodyl 10 Mg Suppository RECTAL DAILY PRN Constipation Budesonide 0.5 mg 06/12/25 08:00 06/14/25 07:35 Budesonide Respule Neb 0.5 Mg/2 Ml Amp INHALATION 0.5 mg Q12HRT DOC Administration Bupropion HCl 75 mg 06/12/25 09:00 06/13/25 09:01 Bupropion Hcl 75 Mg Tablet PO 75 mg DAILY DOC Administration Diclofenac Sodium 1 applic 06/12/25 09:00 06/13/25 20:17 Diclofenac Sodium 1% 100 Gm Gel (*Bkc) TOPICAL 1 applic Q12HR DOC Administration Fish Oil 1 gm 06/12/25 09:00 06/13/25 09:01 Baldwin 3 Polyunsat Fatty Acids 1 Gm Cap PO 1 gm DAILY DOC Administration Fluticasone Propionate 1 spray 06/12/25 09:00 06/13/25 20:15 Fluticasone Propionate 0.05% Na Spr 16 Gm Btl (*Bkc) NASAL 1 spray Q12HR DOC Administration Folic Acid 1 mg 06/12/25 09:00 06/13/25 09:00 Folic Acid 1 Mg Tablet PO 1 mg DAILY DOC Administration Furosemide 40 mg 06/12/25 09:00 06/13/25 09:02 Furosemide 40 Mg Tablet PO 20 mg QAM DOC Administration Guaifenesin 600 mg 06/11/25 21:00 06/13/25 20:12 Guaifenesin 12 Hr 600 Mg Tabcr PO 600 mg Q12HR DOC Administration Hydrocortisone 1 applic 06/11/25 21:53 06/12/25 21:41 Hydrocortisone 2.5% Cream 30 Gm Tube TOPICAL 1 applic QID PRN Administration Itching Levofloxacin/Dextrose 750 mg in 150 mls @ 100 mls/hr 06/13/25 15:00 06/13/25 16:29 Levaquin 750 Mg/D5w 150 Ml IVPB 100 mls/hr Q48H DOC Administration Doxycycline Hyclate 100 mg/ 100 mls @ 100 mls/hr 06/12/25 21:00 06/13/25 20:17 Sodium Chloride IVPB 100 mls/hr Q12H DOC Administration Lactobacillus Acidophilus 1 tablet 06/12/25 09:00 06/13/25 16:29 Acidophilus/Bulgaricus Chewable Tablet PO 1 tablet BID DOC Administration Loperamide HCl 2 mg 06/11/25 21:53 Loperamide Hcl 2 Mg Capsule PO Q12H PRN Diarrhea Loratadine 10 mg 06/11/25 22:15 06/13/25 20:12 Loratadine 10 Mg Tablet PO 10 mg QHS DOC Administration Methotrexate 7.5 mg 06/15/25 09:00 Methotrexate 2.5 Mg Tab (*Chemo) PO WEEKLY [facility] Multi-Ingred Cream/Lotion/Oil/Oint 1 applic 06/12/25 09:00 06/13/25 10:17 Eucerin Cream 120 Gm Jar TOPICAL 1 applic DAILY DOC Administration Multivitamins Therapeutic 1 tablet 06/12/25 09:00 06/13/25 09:00 Multivitamins Therapeutic Tab (*Bkc) PO 1 tablet DAILY DOC Administration Pantoprazole Sodium 40 mg 06/12/25 09:00 06/13/25 09:00 Pantoprazole 40 Mg Tablet PO 40 mg QAM DOC Administration Phenyleph/Shark Oil/Min Oil/Petrol 1 applic 06/11/25 21:53 Phenyleph/Shark Oil/Mo/Petrol Cream 26 Gm RECTAL BID PRN Hemorrhoids Pregabalin 150 mg 06/12/25 09:00 06/13/25 16:29 Pregabalin (*Crx) 75 Mg Capsule PO 150 mg BID DOC Administration Senna 8.6 mg 06/12/25 09:00 06/13/25 20:17 Sennosides 8.6 Mg Tablet PO Not Given Q12HR DOC Triamcinolone Acetonide 1 applic 06/12/25 11:02 06/13/25 20:17 Triamcinolone Acet 0.1% Cream 15 Gm Tube TOPICAL Not Given Q12HR DOC Umeclidinium/Vilanterol 1 puff 06/12/25 08:00 06/13/25 07:14 Umeclidinium/Vilanterol 62.5-25 Mcg Ellipta INHALATION 1 puff DAILYRT DOC Administration Vitamin D 25 mcg 06/12/25 09:00 06/13/25 09:00 Cholecalciferol (Vitamin D3) 25 Mcg (1,000 Units) Tablet PO 25 mcg DAILY DOC Administration Radiology Results: ITS Impressions Chest X-Ray 06/11/25 14:51 Impression: 1: Chronic multifocal airspace disease, differential diagnosis includes chronic infection (e.G. atypical mycobacterial infection), organizing pneumonia and chronic inflammatory conditions such as sarcoidosis or vasculitis. Head CT 06/11/25 17:22 IMPRESSION: 1. No acute intracranial abnormality. 2: Chronic left cerebellar and lacunar infarctions. Chest/Abdomen/Pelvis CT 06/12/25 17:32 IMPRESSION: 1. Bilateral patchy consolidation with coarse interstitial changes predominantly affecting the upper lobes. There is associated interlobular septal thickening and mild bronchiectasis of the lingula. Differential diagnosis includes chronic infection, chronic interstitial lung disease and postinflammatory scarring/fibrosis. 2: Acute sigmoid diverticulitis with possible small peridiverticular abscess. Cannot exclude underlying sigmoid mass. Recommend GI consultation for evaluation when the patient's condition permits. Modified Barium Swallow 06/13/25 11:26 IMPRESSION: Patient tolerated regular consistency oral feedings in the upright position. Please correlate with speech pathologist findings and specific feeding recommendations. Labs Labs: Laboratory Results - last 24 hr 06/12/25 06/12/25 06/14/25 03:24 12:12 04:05 WBC 8.3 RBC 3.02 L Hgb 9.2 L Hct 29.8 L MCV 98.7 MCH 30.5 MCHC 30.9 L RDW 16.6 H Plt Count 243 MPV 11.3 H Vent Rate 16 Expiratory Pressure 5 Inspiratory Pressure 15 M.pneumoniae IgM Titer <770 Quality VTE Prophylaxis VTE prophylaxis: pharmacologic ordered Hospitalist [facility] Advance Care Plan I have confirmed that the patient's Advanced Care Plan is present, code status is documented, or surrogate decision maker is listed in patient medical record.: Yes Medication Reconciliation I have utilized all available resources to obtain, update and review the patients current medications (includes all prescriptions, OTC, herbals, cannabis, and nutritional supplements).: Yes
[2025-06-14] MEDS: ACIDOPHILUS/BULGARICUS CHEWABLE TABLET 1 TABLET PO ×2 (08:51→16:52)
[2025-06-14] MEDS: LIPASE/AMYLASE/PROTEASE 12,000 UNITS CAP 4 CAP PO ×3 (08:51→16:52)
[2025-06-14] MEDS: OMEGA 3 POLYUNSAT FATTY ACIDS 1 GM CAP PO (08:51)
[2025-06-14] MEDS: PANTOPRAZOLE 40 MG TABLET PO (08:52)
[2025-06-14] MEDS: APIXABAN 2.5 MG TABLET PO ×2 (08:52→20:12)
[2025-06-14] MEDS: FOLIC ACID 1 MG TABLET PO (08:52)
[2025-06-14] MEDS: MULTIVITAMINS THERAPEUTIC TAB (*BKC) 1 TABLET PO (08:52)
[2025-06-14] MEDS: PREGABALIN (*CRX) 75 MG CAPSULE 150 MG PO ×2 (08:52→20:12)
[2025-06-14] MEDS: guaiFENesin 12 HR 600 MG TABCR PO ×2 (08:52→20:12)
[2025-06-14] MEDS: CHOLECALCIFEROL (VITAMIN D3) 25 MCG (1,000 UNITS) TABLET PO (08:52)
[2025-06-14] MEDS: ASCORBIC ACID 500 MG TABLET PO ×2 (08:52→16:52)
[2025-06-14] MEDS: FUROSEMIDE 40 MG TABLET PO (08:52)
[2025-06-14] MEDS: DOXYCYCLINE IV 100 MG in SODIUM CHLORIDE 0.9% IV 100 ML IVPB (08:53)
[2025-06-14] MEDS: FLUTICASONE PROPIONATE 0.05% NA SPR 16 GM BTL (*BKC) 1 SPRAY NASAL (08:54)
[2025-06-14] MEDS: ARTIFICIAL TEARS OPHTH SOLN 15 ML BOTTLE 1 DROP EACH EYE ×2 (08:54→20:14)
[2025-06-14 09:51] LABS: Alanine Aminotransferase 14 U/L (6-35); Albumin Level 3.5 g/dL (3.5-5.1); Alkaline Phosphatase 51 U/L (38-126); Anion Gap 5 mmol/L (4-12); Aspartate Amino Transferase 28 U/L (14-36); Bilirubin,Total 0.3 mg/dL (0.2-1.3); Blood Urea Nitrogen 13 mg/dL (7-17); Calcium 8.4 mg/dL (8.4-10.2); Carbon Dioxide 35 mmol/L (22-30); Chloride 97 mmol/L (98-107); Estimated CRCL calculation 48 ml/min; Estimated Glomerular Filt Rate > 60; Glucose 100 mg/dL (65-110); Potassium 3.7 mmol/L (3.4-5.0); Sodium 137 mmol/L (137-145); Total Protein 6.6 g/dL (6.3-8.2)
--- NOTE | 2025-06-14 13:57 | P.PNPL_ITS ---
Progress Note: A&P Assessment and Plan (1) Recurrent pneumonia: Code(s): J18.9 - Pneumonia, unspecified organism Status: Acute Assessment and Plan: Stop IV doxycycline and Levaquin. She can go to [facility] on oral Augmentin 875 mg bid x 3 more days. Speech Evaluation and modified barium swallow were both negative for aspiration. Nevertheless, she is on a level 6 diet, bite size food that is less likely to cause choking. Level 5 moist minced was so offensive that she could not eat it, almost like cat grady. We are altering her food texture to minimize coughing with eating, hoping to decreased mild silent aspiration which she probably has. She coughs with eating often, has had recurrent pneumonias over last 3 months. History of dementia and several TIAs. (2) COPD (chronic obstructive pulmonary disease): Qualifiers: COPD type: unspecified COPD Qualified Code(s): J44.9 - Chronic obstructive pulmonary disease, unspecified Code(s): J44.9 - Chronic obstructive pulmonary disease, unspecified Status: Chronic Assessment and Plan: GOLD grade 2 group E COPD. At the [facility], she has been on Anoro (umeclidinium and vilanterol) ONE puff a day and budesonide nebulized bid, albuterol neb PRN and albuterol-ipratropium neb q.i.d p.r.n. wheezing or shortness of breath. STOP albuterol-ipratropium as she is on Anoro, has umeclidinium which is an anticholinergic, overlaps with ipratropium. Last pulmonary function test 02/02/2023, severe decrease in FEV1 0.81 L, 43% extremely low; FEV1% = 46% consistent with airflow obstruction; TLC 107%, residual volume 2.78 L, 120%. Here, she is on budesonide nebulized bid and albuterol-ipratropium qid. This is adequate for bronchodilator therapy while she is here. At discharge, she can go to [facility] on Anoro ONE puff a day, budesonide nebulized bid and prn albuterol nebulized. If her insurance covers Trelegy, it would be a smarted therapeutic substitution for Anoro & budesonide. (3) ILD (interstitial lung disease): Code(s): J84.9 - Interstitial pulmonary disease, unspecified Status: Chronic Assessment and Plan: This was first noted chest CT 05/07/2013 patchy bibasilar linear airspace disease. Serologies negative 01/2019 (Anti-Centromere neg, dsDNA neg, MOHSEN neg, Jo1 neg, Anti-SLIDE MACHINE TENDER neg, SCL-70 neg, Anti-SSA/B neg, RF neg. DLCO - 4.7, 25% predicted, DLCO/VA - 3.63, 87% predicted. Jun 12, [address] - Bilateral patchy consolidation with coarse interstitial changes predominantly affecting the upper lobes. There is associated interlobular septal thickening and mild bronchiectasis of the lingula. Differential diagnosis includes chronic infection, chronic interstitial lung disease and postinflammatory scarring/fibrosis. I reviewed her prior chest CT from 2022. She has had ILD changes for over a decade, an she will not ever have a normal CXR. (4) Acute on chronic respiratory failure with hypoxia and hypercapnia: Code(s): J96.21 - Acute and chronic respiratory failure with hypoxia; J96.22 - Acute and chronic respiratory failure with hypercapnia Status: Acute Assessment and Plan: She had mild acute on chronic respiratory acidosis on admission, pH was slightly low, pCO2 running in the 50s. At home normally wears 3L/min around the clock, was found off oxygen with low saturation and decreased level of consciousness, did not respond or return to normal functioning when oxygen was applied. She has no memory of what happened prior to admission due to hypoxemia and poor brain function. She is on 3 L/min with sat 94-97% Continue oxygen use, she benefits from this, has been on O2 for several years. She will not get a formal Home O2 study prior to discharge however I asked RT to lower O2 to 2 L because her sat was 100% on 3 L. She walked to the nurses station on 2 L, sat 95%. This is better compared to admission. The patient really does not get up and walk much, does not want to be active. She tells me that she does, however her granddaughter provides reliable information. The patent has poor memory. Plan plan: Her Speech Evaluation & MBS today both normal. She is now on level 6 soft bites. This may help to reduce progression of ILD which can be aggravated by aspiration. STOP IV Doxycycline and Levaquin, start Augmentin 875 mg bid x 3 more days. No organisms recovered so far, and she has not been able to submit a sputum. Continue bronchodilator therapy. Mucolytics -Mucomyst 20% nebulized b.i.d., Cornet valve, positive expiratory pressure to help clear secretions. From pulmonary standpoint, she can go home on these medications: 1. Augmentin 875 mg bid x 3 days ending Jun 16 after second dose that day 2. Anoro 62.5/25 mg ONE puff a day and budesonide 0.5 mg nebulized b.i.d., albuterol 2.5 mg/3 ml q.i.d. p.r.n. shortness of breath or wheezing 3 STOP albuterol- ipratropium neb. This overlaps umeclidinium in the Anoro. 4. Continue to use Cornet valve on 3rd setting, 10 exhalations q.i.d at NH 5. Increase walking, general exercise, and use O2 to maintain saturation 90-95% while walking. 6. Use O2 at [facility] to maintain sat 90-94% while on O2, not higher. She has been on 3 L at [facility], and this is higher than needed. 7. Follow up in pulmonary clinic in 2-3 weeks -she needs to call for appt [phone]; CXR before arrival. I placed order for PA lat CXR in 10 days, can go anytime after that. I spoke with her granddaughter by phone, and she is happy with this information, knowing that her wbc is 8K, now normal; BP is stable 137/62; her O2 need is lower now than at her baseline before admission, was able to walk wearing 2 L/min with saturation 95%. She is deconditioned, needs to have regular therapy at [facility], exercise. Subjective Date/time seen: 06/14/25 13:57 Interval history: hospital follow up visit: 06/14/25; Gabbi Champagne is 80 years old, severe COPD, acute and chronic hypercapnic hypoxemic respiratory failure with pneumonia, not coughing up any sputum. Her WBC is now normal 8.3k, was 23.2 k on admission, and she is on he usual home O2 with saturation 84-100% on 3 L. This can be decreased. Her BP is in the normal range, 137/62. Her QuantiFERON Gold is pending. She has not been able to submit sputum to the lab. I believe that she is at her baseline, and she appears stable to return to her [facility]. She had elevated pCO2 on admission, says that she is not going to use PAP therapy even though she did use a few hours at a time while here. She is alert, pleasant, asking to go to [facility] Today. She c/o loose stools today, says that she has had alternating constipation and diarrhea for 2 years, but today her stool was more runny than usual. This is an old problem which is close to baseline. She says that she gets loose stools when she has antibiotics. . She has not used Cornet valve today yet. I asked her to use it after listening to her lungs, hearing many crackles and expiratory wheezes in the bases. She was able to exhale effectively 5 times without improvement in lung exam. She says tat she wants to walk more, does not have assistance here or at [facility] to do so. She has been on PAP in the past, says she used it for 1 days, has not worn for years and will not wear it. 06/13/25; The patient is sitting up in bed, and her granddaughter, Stefanie, is visiting. She was able to supplement the history, and I showed her the imaging, CXR and CT scan. The patient had a Speech Evaluation followed by a Modified Barium Swallow today which was normal. I was expecting this to be abnormal given her recurrent pneumonias. She has had significant vomiting which is an uncontrolled process. Even though her evaluation was negative for aspiration, she could have had aspiration. She frequently has coughing with eating, and Stefanie and her have both performed the Heimlich maneuver several times over the years. She is now on Soft and Bite sized diet starting today. The patient has had esophageal strictures in the past, has had dilations, none for 6-7 years. She used to see CARMELA Woo, in [place]. When she entered [facility] 6 years ago, she stopped going to see GI. 06/13/2025 Modified Barium Swallow: FINDINGS: Oral stage: Adequate function but with delayed oral prep solids secondary to absent dentition. Pharyngeal stage: Adequate function. Cervical/esophageal stage: Adequate function. IMPRESSION: Patient tolerated regular consistency oral feedings in the upright position 06/12/2025, new consult; Gabbi Champagne is an 80-year-old woman admitted June 11 with altered level of consciousness after being found off of her oxygen at the halfway. She was hypotensive, blood pressure 79/47; she was placed on O2 with some improvement in mentation. She had an elevated white blood cell count of 23.2 K and moderate elevation in pCO2 64.7. She is not able to remember much about what was happening before she was admitted. She says that she had no cough, wheezing, shortness of breath or sputum. Today she had coughing with moderate amounts of sputum, sitting in tissue on bedside table. She said that this is new, rarely has this at home. She does not recall having the O2 off, does not remember having abdominal pain or loose stools. She apparently meets criteria for sepsis with significant hypotension, 79/47, in ED, lactic acid 1., suspected source is pneumonia. Her CXR is abnormal, but she has interstitial lung disease diagnosed several years ago, imaging is slightly worse than a few months ago. Due to having recurrent pneumonia requiring admission 3 times since March, I will request Speech Evaluation to exclude silent aspiration especially with her history of strokes and dementia. I will order QuantiFERON gold for M tb. She had a negative MOHSEN cascade in 2021, decreasing the likelihood that her infiltrates are due to vasculitis or other autoimmune condition. Radiologist includes in the differential chronic infection, organizing pneumonia, chronic inflammatory conditions such as sarcoidosis or vasculitis. Sarcoidosis is often a diagnosis of exclusion, and sarcoidosis for requires biopsy of a nodule or lymph node to confirm noncaseating granulomas. I believe that the radiologist was thorough in the interpretation, however this 80 year woman does not need a biopsy of anything at this time to pursue one of these diagnoses. She is known to our service, last office visit April 18, 2024, for COPD, hypoxemic and hypercapnic respiratory failure on O2 @3L/min, interstitial lung disease, restless legs syndrome, and PE. She has been living at [facility]. 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 She has some shortness of breath due to anxiety. At that visit she was on Anoro 1 puff daily and nebulized albuterol p.r.n. about once a day for shortness of breath. She tells me that she has sensitivity to cats, does not live with cats; may have allergic reactions to other substances but can not identify any of these, does not think she has problems with pollen, grass, trees or dust. She had 2 admissions over the summer, March 19 until April 01 for diverticular disease with pneumonia April 18 through the for decreased mental status, hypotensive; central line with pressors overdose of opioids Narcan and help but did not sustain alertness, diverticulitis, hypercapnic hypoxemic respiratory failure, discharge back to halfway on Augmentin. 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 PMH: pulmonary embolism 2020, pulmonary arterial hypertension, chronic interstitial lung disease, peripheral vascular disease, CVA, anemia of chronic disease, hyperlipidemia, hypertension, chronic respiratory failure with hypoxia and hypercapnia on 3L nasal cannula, COPD, CHF, osteoporosis, anxiety/depression, dementia, pancreatitis with stents and previous GI bleed. C diff in 2020. DATA * 06/12/[address]; Bilateral patchy consolidation with coarse interstitial changes predominantly affecting the upper lobes. There is associated interlobular septal thickening and mild bronchiectasis of the lingula. Differential diagnosis includes chronic infection, chronic interstitial lung disease and postinflammatory scarring/fibrosis. 2: Acute sigmoid diverticulitis with possible small peridiverticular abscess. Cannot exclude underlying sigmoid mass. Recommend GI consultation for evaluation when the patient's condition permits. * 06/11/2025 CXR : Impression: 1: Chronic multifocal airspace disease, differential diagnosis includes chronic infection (e.G. atypical mycobacterial infection), organizing pneumonia and chronic inflammatory conditions such as sarcoidosis or vasculitis. Review of Systems Review of Systems: All systems reviewed & are unremarkable except as noted in HPI and below Exam Narrative: GEN: Alert, oriented, not in distress. Pleasant. Decreased memory. I went in her room twice today, she forgot some of the topics we discussed earlier. She wants to go to [facility] today. Sat on 3 L = 96-100%, O2 can be weaned. HEENT: pupils are equal, EOMI, symmetrical face; oral membranes moist, gilbert tulous, Mallampati III airway. No sinus tenderness. CHEST: Equal air entry, symmetric excursion, crackles both bases with expiratory wheezes. After blowing into the Cornet valve 5 times, exam is the same. She is not expectorating sputum. CV: Regular S1S2 no m/g/r Extremities : no clubbing, no cyanosis, no significant edema PSYCH: normal mood. Gait not tested. SHe di walk earlier with therapy. Speech is normal. Objective Data Vital Signs Vital Signs: Vital Signs - 24 hr 06/13/25 13:58 06/13/25 16:00 06/13/25 16:07 Temperature 36.5 C Pulse Rate 89 75 66 Respiratory Rate 18 Blood Pressure 107/71 Pulse Oximetry 100 Oxygen Delivery Oxygen Flow Rate 06/13/25 18:00 06/13/25 19:50 06/13/25 20:00 Temperature 36.8 C Pulse Rate 86 69 Respiratory Rate 17 Blood Pressure 113/57 L Pulse Oximetry 100 98 Oxygen Delivery Nasal Cannula Oxygen Flow Rate 3 06/13/25 20:00 06/13/25 21:20 06/13/25 21:20 Temperature Pulse Rate 74 69 69 Respiratory Rate 20 18 Blood Pressure Pulse Oximetry 96 Oxygen Delivery Nasal Cannula Oxygen Flow Rate 3 06/13/25 21:28 06/13/25 22:00 06/13/25 23:13 Temperature 36.6 C Pulse Rate 74 67 71 Respiratory Rate 20 17 Blood Pressure 127/65 Pulse Oximetry 100 Oxygen Delivery Oxygen Flow Rate 06/13/25 23:55 06/14/25 00:00 06/14/25 02:00 Temperature Pulse Rate 70 77 Respiratory Rate Blood Pressure Pulse Oximetry Oxygen Delivery Room Air Oxygen Flow Rate 06/14/25 02:09 06/14/25 02:15 06/14/25 03:49 Temperature 36.6 C Pulse Rate 76 71 78 Respiratory Rate 20 20 17 Blood Pressure 158/75 H Pulse Oximetry 100 Oxygen Delivery Oxygen Flow Rate 06/14/25 04:00 06/14/25 04:00 06/14/25 06:00 Temperature Pulse Rate 74 74 Respiratory Rate Blood Pressure Pulse Oximetry Oxygen Delivery Room Air Oxygen Flow Rate 06/14/25 07:30 06/14/25 07:34 06/14/25 07:37 Temperature 36.8 C Pulse Rate 78 77 Respiratory Rate 16 18 Blood Pressure 137/62 Pulse Oximetry 98 97 Oxygen Delivery Nasal Cannula Oxygen Flow Rate 3 06/14/25 07:50 06/14/25 08:00 06/14/25 09:45 Temperature Pulse Rate 85 89 Respiratory Rate 16 Blood Pressure Pulse Oximetry Oxygen Delivery Nasal Cannula Oxygen Flow Rate 3 06/14/25 10:00 06/14/25 13:32 06/14/25 13:39 Temperature Pulse Rate 89 81 87 Respiratory Rate 16 16 Blood Pressure Pulse Oximetry Oxygen Delivery Oxygen Flow Rate Intake/Output Intake/Output: Intake & Output 06/11/25 06/12/25 06/13/25 06/14/25 23:59 23:59 23:59 23:59 Intake Total 1999 1030 640 240 Output Total 200 2300 900 800 Balance 1800 -1270 -260 -560 Meds/Results Medications: Active Medications Generic Name Dose Route Start Last Admin Trade Name Freq PRN Reason Stop Dose Admin Acetaminophen 650 mg 06/11/25 16:14 06/13/25 20:11 Acetaminophen 325 Mg Tablet PO 650 mg Q6H PRN Administration Mild Pain (1-3) or Fever Acetylcysteine 200 mg 06/12/25 20:00 06/14/25 07:30 Acetylcysteine 20% Inhal Soln 800 Mg/4 Ml Vial INHALATION 200 mg Q12HRT DOC Administration Albuterol/Ipratropium 3 ml 06/12/25 02:00 06/14/25 13:33 Ipratropium 0.5 Mg/Albuterol Sulfate 2.5 Mg Ampul.Neb 3 Ml INHALATION 3 ml Q6HRT DOC Administration Lipase/Protease/Amylase 4 cap 06/12/25 08:00 06/14/25 12:04 Lipase/Amylase/Protease 12,000 Units Cap PO 4 cap TIDWM DOC Administration Apixaban 2.5 mg 06/12/25 09:00 06/14/25 08:52 Apixaban 2.5 Mg Tablet PO 2.5 mg Q12HR DOC Administration Artificial Tears 1 drop 06/11/25 21:00 06/14/25 08:54 Artificial Tears Ophth Soln 15 Ml Bottle EACH EYE 1 drop Q12HR DOC Administration Ascorbic Acid 500 mg 06/12/25 09:00 06/14/25 08:52 Ascorbic Acid 500 Mg Tablet PO 500 mg BID DOC Administration Atorvastatin Calcium 40 mg 06/13/25 21:00 06/13/25 20:12 Atorvastatin 40 Mg Tablet PO 40 mg HS DOC Administration Benzonatate 100 mg 06/11/25 16:14 Benzonatate 100 Mg Capsule PO TID PRN Cough Bisacodyl 10 mg 06/11/25 16:17 Bisacodyl 10 Mg Suppository RECTAL DAILY PRN Constipation Budesonide 0.5 mg 06/12/25 08:00 06/14/25 07:35 Budesonide Respule Neb 0.5 Mg/2 Ml Amp INHALATION 0.5 mg Q12HRT DOC Administration Bupropion HCl 75 mg 06/12/25 09:00 06/14/25 08:51 Bupropion Hcl 75 Mg Tablet PO 75 mg DAILY DOC Administration Diclofenac Sodium 1 applic 06/12/25 09:00 06/14/25 08:53 Diclofenac Sodium 1% 100 Gm Gel (*Bkc) TOPICAL Not Given Q12HR [facility] Fish Oil 1 gm 06/12/25 09:00 06/14/25 08:51 [place] 3 Polyunsat Fatty Acids 1 Gm Cap PO 1 gm DAILY DOC Administration Fluticasone Propionate 1 spray 06/12/25 09:00 06/14/25 08:54 Fluticasone Propionate 0.05% Na Spr 16 Gm Btl (*Bkc) NASAL 1 spray Q12HR [facility] Administration Folic Acid 1 mg 06/12/25 09:00 06/14/25 08:52 Folic Acid 1 Mg Tablet PO 1 mg DAILY DOC Administration Furosemide 40 mg 06/12/25 09:00 06/14/25 08:52 Furosemide 40 Mg Tablet PO 20 mg QAM DOC Administration Guaifenesin 600 mg 06/11/25 21:00 06/14/25 08:52 Guaifenesin 12 Hr 600 Mg Tabcr PO 600 mg Q12HR DOC Administration Hydrocortisone 1 applic 06/11/25 21:53 06/12/25 21:41 Hydrocortisone 2.5% Cream 30 Gm Tube TOPICAL 1 applic QID PRN Administration Itching Levofloxacin/Dextrose 750 mg in 150 mls @ 100 mls/hr 06/13/25 15:00 06/13/25 16:29 Levaquin 750 Mg/D5w 150 Ml IVPB 100 mls/hr Q48H DOC Administration Doxycycline Hyclate 100 mg/ 100 mls @ 100 mls/hr 06/12/25 21:00 06/14/25 08:53 Sodium Chloride IVPB 100 mls/hr Q12H DOC Administration Lactobacillus Acidophilus 1 tablet 06/12/25 09:00 06/14/25 08:51 Acidophilus/Bulgaricus Chewable Tablet PO 1 tablet BID DOC Administration Loperamide HCl 2 mg 06/11/25 21:53 Loperamide Hcl 2 Mg Capsule PO Q12H PRN Diarrhea Loratadine 10 mg 06/11/25 22:15 06/13/25 20:12 Loratadine 10 Mg Tablet PO 10 mg QHS DOC Administration Methotrexate 7.5 mg 06/15/25 09:00 Methotrexate 2.5 Mg Tab (*Chemo) PO WEEKLY [facility] Multi-Ingred Cream/Lotion/Oil/Oint 1 applic 06/12/25 09:00 06/14/25 08:54 Eucerin Cream 120 Gm Jar TOPICAL Not Given DAILY [facility] Multivitamins Therapeutic 1 tablet 06/12/25 09:00 06/14/25 08:52 Multivitamins Therapeutic Tab (*Bkc) PO 1 tablet DAILY DOC Administration Pantoprazole Sodium 40 mg 06/12/25 09:00 06/14/25 08:52 Pantoprazole 40 Mg Tablet PO 40 mg QAM DOC Administration Phenyleph/Shark Oil/Min Oil/Petrol 1 applic 06/11/25 21:53 Phenyleph/Shark Oil/Mo/Petrol Cream 26 Gm RECTAL BID PRN Hemorrhoids Pregabalin 150 mg 06/14/25 09:00 06/14/25 08:55 Pregabalin (*Crx) 75 Mg Capsule PO Not Given Q12HR [facility] Senna 8.6 mg 06/12/25 09:00 06/14/25 08:53 Sennosides 8.6 Mg Tablet PO Not Given Q12HR DOC Triamcinolone Acetonide 1 applic 06/12/25 11:02 06/14/25 09:14 Triamcinolone Acet 0.1% Cream 15 Gm Tube TOPICAL Not Given Q12HR DOC Umeclidinium/Vilanterol 1 puff 06/12/25 08:00 06/14/25 07:30 Umeclidinium/Vilanterol 62.5-25 Mcg Ellipta INHALATION 1 puff DAILYRT DOC Administration Vitamin D 25 mcg 06/12/25 09:00 06/14/25 08:52 Cholecalciferol (Vitamin D3) 25 Mcg (1,000 Units) Tablet PO 25 mcg DAILY DOC Administration Radiology Results: ITS Impressions Chest X-Ray 06/11/25 14:51 Impression: 1: Chronic multifocal airspace disease, differential diagnosis includes chronic infection (e.G. atypical mycobacterial infection), organizing pneumonia and chronic inflammatory conditions such as sarcoidosis or vasculitis. Head CT 06/11/25 17:22 IMPRESSION: 1. No acute intracranial abnormality. 2: Chronic left cerebellar and lacunar infarctions. Chest/Abdomen/Pelvis CT 06/12/25 17:32 IMPRESSION: 1. Bilateral patchy consolidation with coarse interstitial changes predominantly affecting the upper lobes. There is associated interlobular septal thickening and mild bronchiectasis of the lingula. Differential diagnosis includes chronic infection, chronic interstitial lung disease and postinflammatory scarring/fibrosis. 2: Acute sigmoid diverticulitis with possible small peridiverticular abscess. Cannot exclude underlying sigmoid mass. Recommend GI consultation for evaluation when the patient's condition permits. Modified Barium Swallow 06/13/25 11:26 IMPRESSION: Patient tolerated regular consistency oral feedings in the upright position. Please correlate with speech pathologist findings and specific feeding recommendations. Labs Labs: Laboratory Results - last 24 hr 06/12/25 06/14/25 06/14/25 03:24 04:00 04:05 WBC 8.3 RBC 3.02 L Hgb 9.2 L Hct 29.8 L MCV 98.7 MCH 30.5 MCHC 30.9 L RDW 16.6 H Plt Count 243 MPV 11.3 H Sodium 137 Potassium 3.7 Chloride 97 L Carbon Dioxide 35 H Anion Gap 5 BUN 13 Creatinine 0.74 Estim Creat Clear Calc 48 Estimated GFR > 60 Glucose 100 Calcium 8.4 Total Bilirubin 0.3 AST 28 ALT 14 Alkaline Phosphatase 51 Total Protein 6.6 Albumin 3.5 M.pneumoniae IgM Titer <770
[2025-06-14] MEDS: ACETAMINOPHEN 325 MG TABLET 650 MG PO ×2 (14:52→20:12)
--- NOTE | 2025-06-14 15:30 | P.DS_ITS ---
DS: Admitting Diagnosis Discharge Date 06/14/2025 Admitting Diagnosis PNA DS: Discharge Diagnosis Discharge Diagnosis (1) Sepsis: Qualifiers: Sepsis type: sepsis due to unspecified organism Sepsis acute organ dysfunction status: with acute organ dysfunction Severe sepsis acute organ dysfunction type: acute respiratory failure Acute respiratory failure type: with hypercapnia Severe sepsis shock status: unspecified Qualified Code(s): A41.9 - Sepsis, unspecified organism; R65.20 - Severe sepsis without septic shock; J96.02 - Acute respiratory failure with hypercapnia Code(s): A41.9 - Sepsis, unspecified organism Status: Acute Assessment and Plan: Please refer to hospital course for brief summary Concern for sepsis due to significant hypotension, 79/47 upon arrival increasing concerns for shock. has responded to IV fluids. - lactic acid: 1.9 - 30 mL/kg = 2.1, 1.5 L given due to CHF history. Tolerated well. 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 atypical mycobacterial infection), organizing pneumonia and chronic inflammatory conditions such as sarcoidosis or vasculitis. - admission to IMU for close hemodynamic monitoring, BP remains soft, improved --Check CT chest/abd/pelvis with recent diverticulitis and now pneumonia 06/14: Currently on Levaquin and doxycycline. CT scan chest which was performed on 06/12 which shows bilateral patchy consolidation. Acute sigmoid diverticulitis with the spine possible small sarath diverticular abscess. GI was consulted in place thickened sigmoid does not implicate acute diverticulitis since it may be a sequelae of recent diverticulitis and suggest the radiological changes takes weeks or even months to resolve. Blood culture and urine culture no growth. Patient is currently on 3 L nasal cannula saturating at 97%. (2) Acute on chronic respiratory failure with hypoxia and hypercapnia: Code(s): J96.21 - Acute and chronic respiratory failure with hypoxia; J96.22 - Acute and chronic respiratory failure with hypercapnia Status: Acute Assessment and Plan: Patient reportedly non compliant with her supplemental oxygen that she is supposed to be on at baseline, 3 L nasal cannula. Has history of COPD and chronic interstitial lung disease. Despite replacement of nasal cannula at the patient's facility, the patient remained altered. Initial ABG significant for a CO2 of 64.7. She was placed on BiPAP in the ED on 06/11. Will plan for repeat ABG this evening, if CO2 improved to baseline will titrate patient to nasal cannula. Will continue supplemental oxygen to maintain O2 sat greater than 92%, may wean to 3L nasal cannula. ABG 06/04 7.315/64.7/85.8/32.3. Repeat ABG CO2 of 51.2, continued BiPAP. ABG's this morning still hypercarbic but not acidotic --pulmonary consult (3) Altered mental status: Qualifiers: Altered mental status type: disorientation Qualified Code(s): R41.0 - Disorientation, unspecified Code(s): R41.82 - Altered mental status, unspecified Status: Acute Assessment and Plan: Check head CT >> no acute intracranial abnormality, chronic left cerebellar and lacunar infarctions CO2 elevated, suspect CO2 narcosis as etiology for patient's alteration due to noncompliance with supplemental O2. Started on BiPAP on 06/11, plan for repeat ABG. - significant leukocytosis of 23.2, when compared to previous the patient was 12.4 on 05/05. CXR concerning for superimposed pneumonia, see plan below. May be contributing to patient's alteration via metabolic encephalopathy. Patient additionally has had chronic diarrhea since April and endorsing lower abdominal pain, checking CT. Has history of diverticulitis with abscess and septic shock. - neurological checks q.6 - reviewed home medications. hold baclofen, Benadryl, [place], trazodone until men tami status improved. (4) Pneumonia: Qualifiers: Laterality: bilateral Lung location: lower lobe of lung Pneumonia type: due to unspecified organism Qualified Code(s): J18.9 - Pneumonia, unspecified organism Code(s): J18.9 - Pneumonia, unspecified organism Status: Acute Assessment and Plan: See CXR impression above - risk factors and complicating factors: CO2 narcosis, previously positive MRSA, ILD - started on Levaquin and vancomycin on 06/11. Change Vanc to doxy - check MRSA PCR, previously positive on 04/23/2025 - Viral PCR completed on 06/11 >> negative - check sputum culture, Legionella, mycoplasma, pneumococcal - supportive care: Mucinex aaliyah, Tessalon Perles p.r.n., Tylenol p.r.n., DuoNebs aaliyah (5) Diarrhea: Qualifiers: Diarrhea type: unspecified type Qualified Code(s): R19.7 - Diarrhea, unspecified Code(s): R19.7 - Diarrhea, unspecified Status: Acute Assessment and Plan: Patient has history of diverticulitis with abscess and septic shock in April of 2025. During this admission she does not negative for C diff. diarrhea has been persistent since April and is currently being treated with Lomotil and Metamucil outpatient. Will continue both medications. - No abdominal pain or diarrhea today. Hold off on stool studies. Had a formed BM per RN. --CT since recent diverticulitis - hold MiraLax and magnesium citrate (6) COPD (chronic obstructive pulmonary disease): Qualifiers: COPD type: unspecified COPD Qualified Code(s): J44.9 - Chronic obstructive pulmonary disease, unspecified Code(s): J44.9 - Chronic obstructive pulmonary disease, unspecified Status: Chronic Assessment and Plan: Rare wheezing on exam, patient did not endorse a productive cough decreasing concerns for a acute exacerbation of COPD - DuoNeb scheduled - started on broad-spectrum antibiotics due to concern for pneumonia (7) CHF (congestive heart failure): Qualifiers: Heart failure type: unspecified Heart failure chronicity: chronic Qualified Code(s): I50.9 - Heart failure, unspecified Code(s): I50.9 - Heart failure, unspecified Status: Chronic Assessment and Plan: No evidence of pulmonary edema on CXR or on clinical exam Most recent echo (2022): Normal LV size with mild concentric hypertrophy, EF 60 65%, grade 1 diastolic dysfunction, mild valvular disease noted, mild pulmonary hypertension. See report for details. home medication: Lasix 40 mg daily - monitor I&Os and daily weights - trend renal function (8) Anemia of chronic disease: Code(s): D63.8 - Anemia in other chronic diseases classified elsewhere Status: Chronic Assessment and Plan: Hgb low8 S previously 10.4 on 05/05/2025 - transfuse if <7 - monitor (9) HTN (hypertension): Qualifiers: Hypertension type: unspecified Qualified Code(s): I10 - Essential (primary) hypertension Code(s): I10 - Essential (primary) hypertension Status: Chronic Assessment and Plan: Chronic. Significantly hypotensive upon arrival on 06/11 with a blood pressure of 79/47. Improved with IV fluids, currently 92/60. - hold home medications including: Coreg - monitor (10) Prediabetes: Code(s): R73.03 - Prediabetes Status: Chronic Assessment and Plan: - no A1C on file, BS was 145 upon arrival. Check A1c. 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 06/14: Patient is AO x4 at baseline . Patient is 3 L nasal cannula at baseline but not complaint. Patient has been treated for pneumonia and persistent diarrhea. Patient is currently on level 6 diet soft and bite sized to decrease risk of aspiration. Patient underwent speech evaluation and modified barium sw allow both were negative for aspiration. There is evidence of cough while eating possible silent aspiration. Patient was evaluated by GI due to diverticulitis of intestine and they reported finding of a thickened sigmoid does not imply active diverticulitis, since it may be a sequelae of a recent diverticulitis, which was severe and radiological changes can take weeks or even months to resolve. There are no interventions from our end to be suggested in her particular case. Pulmonology evaluated the patient and advised to discharged with the following instructions: 1. Augmentin 875 mg bid x 3 days ending Jun 17 after second dose that day 2. Anoro 62.5/25 mg ONE puff a day and budesonide 0.5 mg nebulized b.i.d., albuterol 2.5 mg/3 ml q.i.d. p.r.n. shortness of breath or wheezing 3 STOP albuterol- ipratropium neb. This overlaps umeclidinium in the Anoro. 4. Continue to use Cornet valve on 3rd setting, 10 exhalations q.i.d at [place] 5. Increase walking, general exercise, and use O2 to maintain saturation 90-95% while walking. 6. Use O2 at [place] to maintain sat 90-94% while on O2, not higher. She has been on 3 L at [place], and this is higher than needed. 7. Follow up in pulmonary clinic in 2-3 weeks -she needs to call for appt [phone]; CXR before arrival. I placed order for PA lat CXR in 10 days, can go anytime after that. On the day of discharge, the patient was seen and examined. Vital signs were stable. Physical exam were stable and labs were reviewed at length. Discharge instructions, medications, and follow-up appointments were discussed with the patient at length and all day questions were answered. ER warnings were given. Status at Discharge Cognitive/behavioral status at discharge: Stable Time Spent with Patient Time attestation: Total time spent providing and/or coordinating discharge services: 45 minutes Exam Narrative: General - Awake and alert. No acute distress Eyes - PERRLA, EOM intact ENT - No thrush, No erythema Neck - No noticeable or palpable swelling Lymph Nodes - No lymphadenopathy Cardiovascular - RRR no m/r/g, no JVD Lungs: Rare wheezing on exam, no use of accessory muscles, no crackles Skin - Skin warm and dry, no wounds or rashes Abdomen - Normal bowel sounds, abdomen soft and nontender Extremities - No edema, cyanosis or clubbing Musculoskeletal - 5/5 strength, normal range of motion, no swollen or erythematous joints. Neurological ? Alert and oriented x 3, CN 2-12 grossly intact. Psych: Normal mood and affect Const: General: comfortable and no acute distress Other: , female, elderly, restless HENMT: Face/Nose/Sinus: Normal nares present Mouth: Yes dry mucous membranes Eyes: General: appearance normal, both eyes and all related structures Sclera: sclerae normal Pupils: Equal, round and reactive pupils present EOM: EOMs intact bilaterally Resp: Other: Increased work of breathing, scattered wheeze in her upper lung [place] however not consistent. No crackles appreciated. Cardio: Rate: regular rate Rhythm: regular rhythm Other: S1-S2 present without murmur, rub, ectopy GI: Other: Abdomen soft, nondistended, nontender. Normoactive bowel sounds in all quadrants. Skin: General skin exam: normal color and no rashes or lesions noted Wounds: no wounds Neuro: Cranial nerves: Yes Equal, round and reactive pupils present Speech: normal speech Motor exam (neuro): 5/5 motor strength present throughout Sensory Exam: normal sensation Other: A/Ox self, place. Extrem: General: normal to inspection Psych: Affect: normal affect Other: Poor insight and judgment at present, restless. DS: Data Data Completed and Pending Labs on day of discharge: Labs from last 24 hours 06/14/25 06/14/25 04:05 04:00 WBC 8.3 RBC 3.02 L Hgb 9.2 L Hct 29.8 L MCV 98.7 MCH 30.5 MCHC 30.9 L RDW 16.6 H Plt Count 243 MPV 11.3 H Sodium 137 Potassium 3.7 Chloride 97 L Carbon Dioxide 35 H Anion Gap 5 BUN 13 Creatinine 0.74 Estim Creat Clear Calc 48 Estimated GFR > 60 Glucose 100 Calcium 8.4 Total Bilirubin 0.3 AST 28 ALT 14 Alkaline Phosphatase 51 Total Protein 6.6 Albumin 3.5 TB Test (QFT) Gold Plus Pending TB (QFT) Incubation Pending Preliminary micro results at discharge 06/11/25 15:34 Blood Culture - Preliminary Blood 06/11/25 15:34 Blood Culture - Preliminary Blood Discharge Plan Discharge Attending physician on discharge: Jerome Tang Consulting providers: Yee Kapadia; Liss Martinez Discharging Clinician: Jerome Tang Anticipated Discharge Date/Time: 06/14/25 15:17 Patient Disposition: NH Skilled Nursing/Asst Living Activity: as tolerated Diet: other - see discharge instructions Discharge Instructions: Diet: Soft and Bite Sized,Level 6 diet Pulmonology Recommendation: 1. Augmentin 875 mg bid x 3 days ending Jun 17 after second dose that day 2. Anoro 62.5/25 mg ONE puff a day and budesonide 0.5 mg nebulized b.i.d., albuterol 2.5 mg/3 ml q.i.d. p.r.n. shortness of breath or wheezing 3 STOP albuterol- ipratropium neb. This overlaps umeclidinium in the Anoro. 4. Continue to use Cornet valve on 3rd setting, 10 exhalations q.i.d at [place] 5. Increase walking, general exercise, and use O2 to maintain saturation 90-95% while walking. 6. Use O2 at [place] to maintain sat 90-94% while on O2, not higher. She has been on 3 L at [place], and this is higher than needed. 7. Follow up in pulmonary clinic in 2-3 weeks -she needs to call for appt [phone]; CXR before arrival. I placed order for PA lat CXR in 10 days, can go anytime after that. General instructions Check blood pressure 1 to 2 times a day. Record and bring into your doctor for review. Call your doctor if your blood pressure is greater than 180/110 or less than 90/45. Walk with cane or other assist device. Take precautions to avoid falls. Rise slowly from a lying or sitting position. Pause before standing or walking. Contact your doctor or call 911 and come to the Emergency Room if you have any type of trauma, lightheadedness with standing or other worrisome symptoms. Avoid NSAIDs (ibuprofen, naproxen, Aleve). Tylenol is safe to take. Follow-up with your primary care provider in 1-2 weeks. Please call for appointment. Follow-up with pulmonology in 2-4 weeks. Please call for an appointment. Thank you for using [facility] for your health care needs. Patient Instructions: Antibiotic Form, Heart Failure (DC), Safe Use of Anticoagulants (DC) Patient Language: [place]ian Stand Alone Forms: General Discharge Information Follow-up/Referrals: Rory Alegre [Other] Liss Martinez MD [Physician, Pulmonology] Discharge Medications: New amoxicillin-pot clavulanate 875-125 mg tablet 1 tablet PO Q12H Qty: 6 0RF Rx Instructions: Please take Augmentin b.i.d. for 3 days benzonatate 100 mg Capsule 100 mg PO TID PRN (Reason: Cough) Qty: 30 0RF Continued esomeprazole magnesium [address] for susp in packet 40 mg PO DAILY pregabalin [Lyrica] 150 mg capsule 150 mg PO BID Qty: 60 3RF guaifenesin 600 mg tablet extended release 12hr 600 mg PO BID bupropion HCl 75 mg tablet 75 mg PO DAILY Eliquis 2.5 mg tablet 2.5 mg PO BID furosemide 40 mg tablet 40 mg PO QAM albuterol sulfate 2.5 mg /3 mL (0.083 %) solution for nebulization 2.5 mg inhalation QID PRN (Reason: SOB) omega 7-hry-gvx-fish oil [Fish Oil] 1,000 mg (120 mg-180 mg) capsule 1 cap PO DAILY acetaminophen 650 mg Tablet Extended Release 650 mg PO Q6H PRN (Reason: Mild Pain (Scale Score 1-4)) ondansetron 4 mg Tablet,Disintegrating 8 mg PO Q6H PRN (Reason: nausea and vomitting) Eucerin Intensive Repair Lotion 1 ea TOPICAL DAILY Rx Instructions: general dry skin loperamide 2 mg Capsule 2 mg PO Q12H PRN (Reason: Diarrhea) cholecalciferol (vitamin D3) 25 mcg (1,000 unit) Tablet 25 mcg PO DAILY hydrocortisone 2.5 % Cream 1 applic TOPICAL QID PRN (Reason: Itching) Patient Comments: psoriasis Rx Instructions: affected areas artificial tears solution Drops 1 drp OPHTHALMIC (EYE) BID atorvastatin 40 mg tablet 40 mg PO QPM diclofenac sodium 50 mg tablet,delayed release (DR/EC) 50 mg PO Q12H PRN (Reason: inflammation) ascorbic acid (vitamin C) 500 mg tablet 500 mg PO BID bisacodyl 10 mg suppository 10 mg RECTAL DAILY PRN (Reason: constipation) diclofenac sodium [Arthritis Pain (diclofenac)] 1 % gel 4.5 inch topical BID Rx Instructions: apply to single elbow, wrist or hand; for hand includes palm/fingers/back of hand fexofenadine [Lea Allergy] 180 mg tablet 180 mg PO DAILY multivitamin [Daily Multi-Vitamin] Tablet 1 tablet PO DAILY senna 8.6 mg capsule 8.6 mg PO BID Trexall 7.5 mg tablet 7.5 mg PO WEEKLY Patient Comments: To be given on triamcinolone acetonide 0.1 % cream 1 applic TOPICAL BID Patient Comments: apply to itching areas budesonide [Pulmicort] 0.5 mg/2 mL Suspension For Nebulization 0.5 mg inhalation Q12HRT Qty: 30 0RF fluticasone propionate 50 mcg/actuation [place],Suspension 1 spray intranasal Q12HR Qty: 30 0RF baclofen 10 mg tablet 10 mg PO Q6H PRN (Reason: moderate pain) umeclidinium-vilanterol [Anoro Ellipta] 62.5-25 mcg/actuation blister with device 1 inh INHALATION Q24H Lactobacillus acidophilus Capsule 100 mg PO BID cetirizine [24Hour Allergy] 10 mg tablet 10 mg PO HS diphenhydramine HCl [Allergy (diphenhydramine)] 25 mg capsule 25 mg PO Q6H PRN (Reason: itching) Creon 24,000-76,000 -120,000 unit capsule,delayed release(DR/EC) 2 cap PO TIDWM phenyleph-shark bms-qzhh-cac Cream 1 applic topical BID PRN (Reason: hemorrhoids) folic acid 1 mg tablet 1 mg PO DAILY Qty: 90 2RF Held carvedilol [Coreg] 3.125 mg Tablet 3.125 mg PO BID Hold Instructions: Resume on 06/28/25. Please discuss with your PCP before continuing. magnesium citrate [Citroma] Solution 296 ml PO DAILY PRN (Reason: constipation) Hold Instructions: Resume on 07/05/25. Please discuss with your PCP before continuing. hydrocodone-acetaminophen 5-325 mg tablet 1 tablet PO TID PRN (Reason: pain) Hold Instructions: Resume on 07/05/25. Please discuss with your PCP before continuing. trazodone 50 mg tablet 50 mg PO HS Hold Instructions: Resume on 07/05/25. Please discuss with your PCP before continuing. polyethylene glycol 3350 [ClearLax] 17 gram powder in packet 17 g PO DAILY Hold Instructions: Resume on 07/05/25. Please discuss with your PCP before continuing. Enema 19-7 gram/118 mL enema 118 ml RECTAL DAILY PRN (Reason: constipation) Hold Instructions: Resume on 07/05/25. Please discuss with your PCP before continuing. Discontinued ipratropium-albuterol 0.5 mg-3 mg(2.5 mg base)/3 mL Solution For Nebulization 3 ml INHALATION Q6H PRN (Reason: SOB) Date of admission: 06/11/25 16:33 Primary Care Provider: Rory Alegre Admitting Provider: Mary Ann Alicia Attending physician on admission: Mary Ann Alicia Condition: Serious
[2025-06-14] MEDS: LOPERAMIDE HCL 2 MG CAPSULE PO (18:59)
--- NOTE | 2025-06-14 19:11 | PC.NURSE ---
REPORT GIVEN TO BEBE RODRIGUEZ AT [facility] AT 1615. AWAITING EMS ARRIVAL.
[2025-06-14] MEDS: ATORVASTATIN 40 MG TABLET PO (20:12)
[2025-06-14] MEDS: LORATADINE 10 MG TABLET PO (20:12)
[2025-06-14] MEDS: DICLOFENAC SODIUM 1% 100 GM GEL (*BKC) 1 APPLIC TOPICAL (20:13)
[2025-06-14] MEDS: TRIAMCINOLONE ACET 0.1% CREAM 15 GM TUBE 1 APPLIC TOPICAL (20:16)
== END 2025-06-14 23:51 | DRG 871 ==
LOC: ANHED 13:41 → ANHIMU 15:53
PROVIDERS: Internal Medicine; Internal Medicine Critical Care Medicine; Nurse Practitioner Acute Care; Student in an Organized Health Care Education/Training Program; Admitting Provider General Practice; Emergency Provider Emergency Medicine; Visit Provider General Practice
DX: A41.9 Sepsis, unspecified organism (principal); G93.41 Metabolic encephalopathy; J18.9 Pneumonia, unspecified organism; J96.21 Acute and chronic respiratory failure with hypoxia; J96.22 Acute and chronic respiratory failure with hypercapnia; I50.32 Chronic diastolic (congestive) heart failure; J84.9 Interstitial pulmonary disease, unspecified; J44.89 Other specified chronic obstructive pulmonary disease; R65.20 Severe sepsis without septic shock; I11.0 Hypertensive heart disease with heart failure; I73.9 Peripheral vascular disease, unspecified; I95.9 Hypotension, unspecified; K52.89 Other specified noninfective gastroenteritis and colitis; M81.0 Age-related osteoporosis without current pathological fracture; D63.8 Anemia in other chronic diseases classified elsewhere; Z77.22 Contact with and (suspected) exposure to environmental tobacco smoke (acute) (chronic); E78.5 Hyperlipidemia, unspecified; R73.03 Prediabetes; F11.11 Opioid abuse, in remission; I69.391 Dysphagia following cerebral infarction; Z86.14 Personal history of Methicillin resistant Staphylococcus aureus infection; Z87.440 Personal history of urinary (tract) infections; Z86.711 Personal history of pulmonary embolism; Z79.01 Long term (current) use of anticoagulants; Z87.19 Personal history of other diseases of the digestive system; Z86.16 Personal history of COVID-19; Z87.891 Personal history of nicotine dependence; Z79.891 Long term (current) use of opiate analgesic; Z90.49 Acquired absence of other specified parts of digestive tract; Z86.59 Personal history of other mental and behavioral disorders; Z87.01 Personal history of pneumonia (recurrent)
CPT/HCPCS: 36415; 36600; 70450; 71045; 71260; 74177; 74230; 80053; 81001; 82375; 82805; 83036; 83050; 83605; 85018; 85025; 85027; 85610; 85730; 86140; 86480; 86738; 87040; 87086; 87449; 87637; 87641; 92611; 93005; 94002; 94003; 94640; 96360; 97161; 97165; 99285; A9270; G0378; J1956; J3373; J7120; Q9967

== ENCOUNTER 2025-07-18 19:44 | Inpatient (IN) | payer MEDICARE, MEDICAID, SELFPAY ==
[2025-07-18] VITALS (28 sets, daily range): BP systolic 72–117; BP diastolic 38–61; PULSE 71–115; RESP 14–20; TEMP 37.3–39.6; O2SAT 94–100; BMI 29.4
--- NOTE | ~2025-07-18 | XR_ITS ---
Examination: XR chest 1V portable Clinical History: wheezing, crackles Comparison: 07/18/2025 Technique: Portable AP Findings: Cardiomegaly. Worsening interstitial markings. Worsening airspace disease right upper and left lower lobes. Subpleural reticulation and honeycombing. No acute bony abnormality. IMPRESSION: 1. Worsening multifocal airspace disease. 2. Probable developing interstitial pulmonary edema. 3. Pulmonary fibrosis. Reviewed, dictated and finalized at location R.
--- NOTE | ~2025-07-18 | XR_ITS ---
XR chest 1V portable INDICATION:PNA . REFERENCE: None FINDINGS: A single AP of the chest demonstrates normal heart size. Bilateral lower legs right of shingles infiltrates are noted. There is no evidence of pneumothorax or pleural effusion. IMPRESSION: Bilateral infiltrates. Reviewed, dictated and finalized at location S. IMPRESSION: Bilateral infiltrates.
--- NOTE | ~2025-07-18 | CT_ITS ---
CT chest abdomen pelvis w con HISTORY: sepsis . COMPARISON: None. TECHNIQUE: Axial images of the chest, abdomen and pelvis were obtained without and with infusion of 100 Isovue 300. FINDINGS: CT CHEST: The examination demonstrates pulmonary fibrotic changes present bilaterally most significant in the upper lobes. There are no focal consolidation, pleural effusions or pneumothorax. Enlarged paraesophageal lymph node measures up to 1.6 x 1.9 cm. Cardiac size and mediastinal configuration are normal in appearance. The pulmonary artery and thoracic aorta are normal in caliber and patency. Osseous structures are intact. The visualized organs of the upper abdomen are unremarkable. IMPRESSION: No acute cardiopulmonary process. Fibrotic changes are present bilaterally. Enlarged paraesophageal lymph nodes are noted. CT abdomen and pelvis with contrast: The liver parenchyma is unremarkable. There are dilatation of the left hepatic biliary ducts and common bile duct. The gallbladder is unremarkable. The pancreas and spleen are normal in appearance. 1.3 cm right adrenal nodule is noted. Left adrenal glands are unremarkable. The kidneys demonstrate symmetric uptake and excretion of contrast. Benign renal cysts are noted. There is no solid mass. There is no hydronephrosis. Evaluation of the stomach and bowel loops are limited due to lack of oral contrast. The appendix is not visualized however no secondary signs of appendicitis are identified. There is segmental thickening of the proximal sigmoid colon seen on axial image 198. Although this may be related to postinflammatory changes. Diverticulosis. Tumor cannot be excluded. If clinically indicated follow-up colonoscopy. There is colonic diverticulosis without evidence of acute diverticulitis. The bladder and rectum are normal. No free intraperitoneal fluid or air is evident. There is no significant retroperitoneal lymphadenopathy. The aorta, visceral vessels and renal arteries demonstrate normal caliber and patency. The lower thoracic and lumbar vertebrae are in normal alignment. IMPRESSION: Focal short segment of thickening of the sigmoid colon. Follow-up colonoscopy is recommended. Colonic diverticulosis without evidence of acute diverticulitis. Indeterminate 1.3 cm right adrenal nodule. This can be further evaluated with CT using adrenal protocol. All CT scans at this facility are performed using low dose modulation techniques as appropriate to perform exam including the following: automated exposure control; use of iterative reconstruction technique; adjustment of the mA and/or kV according to patient size (this includes techniques or standardized protocols for targeted exams where dose is matched to indication/reason for exam) Reviewed, dictated and finalized at location S. IMPRESSION: No acute cardiopulmonary process. Fibrotic changes are present bilaterally. Enlarged paraesophageal lymph nodes are noted. CT abdomen and pelvis with contrast: The liver parenchyma is unremarkable. There are dilatation of the left hepatic biliary ducts and common bile duct. The gallbladder is unremarkable. The pancre as and spleen are normal in appearance. 1.3 cm right adrenal nodule is noted. L eft adrenal glands are unremarkable. The kidneys demonstrate symmetric uptake and excretion of contrast. Benign svetlana l cysts are noted. There is no solid mass. There is no hydronephrosis. Evaluation of the stomach and bowel loops are limited due to lack of oral contr ast. The appendix is not visualized however no secondary signs of appendicitis are identified. There is segmental thickening of the proximal sigmoid colon see n on axial image 198. Although this may be related to postinflammatory changes. Diverticulosis. Tumor cannot be excluded. If clinically indicated follow-up co lonoscopy. There is colonic diverticulosis without evidence of acute diverticul itis. The bladder and rectum are normal. No free intraperitoneal fluid or air is evid ent. There is no significant retroperitoneal lymphadenopathy. The aorta, visceral vessels and renal arteries demonstrate normal caliber and p atency. The lower thoracic and lumbar vertebrae are in normal alignment. IMPRESSION: Focal short segment of thickening of the sigmoid colon. Follow-up colonoscopy i s recommended. Colonic diverticulosis without evidence of acute diverticulitis. Indeterminate 1.3 cm right adrenal nodule. This can be further evaluated with C T using adrenal protocol. All CT scans at this facility are performed using low dose modulation techniqu es as appropriate to perform exam including the following: automated exposure c ontrol; use of iterative reconstruction technique; adjustment of the mA and/or kV according to patient size (this includes techniques or standardized protocol s for targeted exams where dose is matched to indication/reason for exam)
--- NOTE | 2025-07-18 19:57 | ED.FEVER ---
HPI - Fever General Chief Complaint: Fever Stated Complaint: FEVER/CHILLS/LOW O2 SATS Time Seen by Provider: 07/18/25 19:48 History of Present Illness HPI Narrative: 80-year-old female with history of significant interstitial lung disease, COPD, CHF, recent admission to the hospital and ICU with septic shock. Patient was found to have at that time diverticulitis and pneumonia. She was treat with antibiotics and discharged to her skilled rehab facility/nursing facility. Patient presents today with fever chills and hypoxemia despite her home oxygen. She wears 2-3 L 247 but is noncompliant with this. She was found to be 85% on 2 L at home. Down to 68% on room air on arrival to the emergency department in brief transition to oxygen are wall. Improved to 95% on 4 L. patient endorses feeling fever and chills and coughing but denies any abdominal pain, chest pain, nausea, vomiting, back pain. Was otherwise in her normal state of health at her facility. Related Data Home Medications ?Medication ?Instructions ?Recorded ?Confirmed ?Last Taken ?Type acetaminophen 650 mg 650 mg PO Q6H PRN Mild Pain (Scale 10/09/21 07/19/25 07/17/25 07:30 History tablet,extended release Score 1-4) carvedilol 3.125 mg tablet (Coreg) 3.125 mg PO BID 10/09/21 07/19/25 03/18/25 History Held on 06/14/25. Instructions: Resume on 06/28/25. Please discuss with your PCP before continuing. ondansetron 4 mg disintegrating 8 mg PO Q6H PRN nausea and 10/09/21 07/19/25 06/15/25 08:15 History tablet vomitting apixaban 2.5 mg tablet (Eliquis) 2.5 mg PO BID 01/12/23 07/19/25 07/18/25 07:00 History bupropion HCl 75 mg tablet 75 mg PO DAILY 01/12/23 07/19/25 07/18/25 07:00 History furosemide 40 mg tablet 40 mg PO QAM 01/12/23 07/19/25 07/18/25 07:00 History guaifenesin 600 mg tablet, 600 mg PO BID 01/12/23 07/19/25 07/18/25 07:00 History extended release 12 hr albuterol sulfate 2.5 mg/3 mL 2.5 mg inhalation QID PRN SOB 04/18/24 07/19/25 07/09/25 00:30 History (0.083 %) solution for nebulization omega 0-vri-ctk-fish oil 1,000 mg 1 cap PO DAILY 04/18/24 07/19/25 07/18/25 07:00 History (120 mg-180 mg) capsule (Fish Oil) artificial tears solution eye drops 1 drp ophthalmic (eye) BID dry eyes 04/21/24 07/19/25 07/18/25 07:00 History cholecalciferol (vitamin D3) 25 25 mcg PO DAILY 04/21/24 07/19/25 07/18/25 07:00 History mcg (1,000 unit) tablet loperamide 2 mg capsule 2 mg PO Q12H PRN Diarrhea 04/21/24 07/19/25 07/17/25 13:20 History ascorbic acid (vitamin C) 500 mg 500 mg PO BID 03/19/25 07/19/25 07/18/25 07:00 History tablet atorvastatin 40 mg tablet 40 mg PO QPM 03/19/25 07/19/25 07/17/25 20:00 History bisacodyl 10 mg rectal suppository 10 mg RECTAL DAILY PRN constipation 03/19/25 07/19/25 Unknown History diclofenac sodium 50 mg 50 mg PO Q12H PRN inflammation 03/19/25 07/19/25 07/01/25 15:30 History tablet,delayed release fexofenadine 180 mg tablet 180 mg PO DAILY 03/19/25 07/19/25 07/18/25 07:00 History (Lea Allergy) magnesium citrate (Citroma oral 296 ml PO DAILY PRN constipation 03/19/25 07/19/25 Unknown History solution) Held on 06/14/25. Instructions: Resume on 07/05/25. Please discuss with your PCP before continuing. methotrexate sodium 7.5 mg tablet 7.5 mg PO WEEKLY 03/19/25 07/19/25 07/13/25 08:40 History (Trexall) multivitamin (Daily Multi-Vitamin 1 tablet PO DAILY 03/19/25 07/19/25 07/18/25 07:00 History tablet) sennosides 8.6 mg capsule (senna) 8.6 mg PO BID 03/19/25 07/19/25 07/18/25 07:00 History baclofen 10 mg tablet 10 mg PO Q6H PRN moderate pain 04/18/25 07/19/25 06/22/25 01:45 History esomeprazole magnesium 40 mg 40 mg PO DAILY 05/05/25 07/19/25 07/18/25 07:00 History granules delayed release for susp Lactobacillus acidophilus 100 mg PO BID 06/11/25 07/19/25 07/18/25 07:00 History cetirizine 10 mg tablet (24Hour 5 mg PO HS 06/11/25 07/19/25 07/17/25 20:20 History Allergy) diphenhydramine HCl 25 mg capsule 25 mg PO Q6H PRN itching 06/11/25 07/19/25 07/03/25 01:20 History (Allergy (diphenhydramine)) hydrocodone 5 mg-acetaminophen 325 1 tablet PO TID PRN pain 06/11/25 07/19/25 07/18/25 11:40 History mg tablet gxxtgk-wvpeezaf-tmxrif(pork)24,000-76,000-120,000 2 cap PO TIDWM 06/11/25 07/19/25 07/18/25 11:40 History unit capsule,del rel (Creon) polyethylene glycol 3350 17 gram 17 g PO DAILY 06/11/25 07/19/25 Unknown History oral powder packet (ClearLax) Held on 06/14/25. Instructions: Resume on 07/05/25. Please discuss with your PCP before continuing. sodium phosphates 19 gram-7 118 ml RECTAL DAILY PRN 06/11/25 07/19/25 Unknown History gram/118 mL enema (Enema) constipation trazodone 50 mg tablet 50 mg PO HS 06/11/25 07/19/25 06/10/25 History Held on 06/14/25. Instructions: Resume on 07/05/25. Please discuss with your PCP before continuing. umeclidinium 62.5 mcg-vilanterol 1 inh inhalation Q24H 06/11/25 07/19/25 07/17/25 05:00 History 25 mcg/actuation powdr for inhalation (Anoro Ellipta) amlodipine 5 mg tablet 5 mg PO DAILY 07/19/25 07/19/25 07/18/25 07:00 History baclofen 10 mg tablet 10 mg PO Q12H 07/19/25 07/19/25 Unknown History ferrous sulfate 325 mg (65 mg 325 mg PO DAILY 07/19/25 07/19/25 07/18/25 07:00 History iron) tablet ondansetron HCl 4 mg tablet 4 mg PO TID 07/19/25 07/19/25 07/18/25 11:40 History pregabalin 150 mg capsule (Lyrica) 100 mg PO Q8H 07/19/25 07/19/25 07/18/25 07:00 History Allergies Allergy/AdvReac Type Severity Reaction Status Date / Time ceftriaxone (From Rocephin) Allergy Intermediate Rash Verified 07/19/25 00:37 Sulfa (Sulfonamide Allergy Intermediate Rash Verified 07/19/25 00:37 Antibiotics) morphine AdvReac Mild Hallucinati Verified 07/19/25 00:37 ng Review of Systems Review of Systems: As reviewed above in [facility] Past Medical History Medical History Chronic diarrhea Diverticular disease of intestine with perforation and abscess (04/2025) Pulmonary embolism Chronic respiratory failure with hypoxia and hypercapnia On 2 to 3 L nasal cannula. Dementia OAB (overactive bladder) Anemia of chronic disease Sigmoid diverticulitis with abscess and shock, April 2025 Exocrine pancreatic insufficiency Pancreatitis Chronic anticoagulation Hyperlipidemia Diastolic congestive heart failure Hypertension Drug overdose Pulmonary embolism (06/2021) Pulmonary arterial hypertension Chronic interstitial lung disease Peripheral vascular disease Cerebrovascular accident Clostridium difficile diarrhea Prediabetes History of peptic ulcer Gastroesophageal reflux disease Chronic obstructive pulmonary disease Pneumonia due to 2019-nCoV (06/11/21) Migraine Herniated disc Osteoporosis Anxiety Depression Arthritis GI bleed Emphysema of lung Surgical History Surgical History History of lumbar fusion x2 History of neck surgery (2001) History of tonsillectomy History of bladder suspension procedure History of hysterectomy History of tubal ligation History of cholecystectomy History of cardiac cath History of vascular surgery Left lower extremity. Family History Family History Father Family history of Parkinson's disease Mother Family history of pancreatic cancer Family history of chronic obstructive pulmonary disease Other Patient's brother is in good health Social History Social History Social History: Surrogate decision maker: Stefanie Finney, granddaughter. Code status: DNR/DNI but okay with pressors Smoking packs per day: 0.5 Smoking cigarettes per day: 10.0 Years smoked: 20 Smoking pack-years: 10.00 Smoking status: Former smoker Tobacco type: cigarettes Second hand tobacco smoke exposure: Yes Alcohol intake: never Substance use: never Substance use type: does not use Do You Feel Safe in your Home?: Yes Lack of Transportation: No Lack of Food: Never True Current Housing: I Have Housing Concerned About Future Housing: No Difficulty Paying Gas/Electric Bills: No Difficulty Paying for Meds: No Currently Unemployed: No Education: Decline to Answer Difficulty w/ Childcare or Family Care: No Living arrangements: correction Additional living arrangements comments: Resident of [facility]. Additional occupation/education comments: Retired. Spiritual care concerns: No Exam Narrative: GENERAL: Ill-appearing, febrile, coughing frequently. HEAD: Normocephalic, atraumatic EYES: [PERRLA and EOMI.] ENT: Nares clear, no rhinorrhea or epistaxis. Mucous membranes moist. NECK: Supple. CHEST: Very coarse bibasilar breath sounds, scattered wheezing although no retractions. HEART: [Regular rate and rhythm]. No murmur heard. [Normal peripheral pulses.] ABDOMEN: [Soft, nondistended], [nontender], [No rigidity or guarding] EXTREMITIES: Normal range of motion. [No edema.] SKIN: Warm, dry, no rash. NEURO: [No focal deficits]. Alert and oriented [x3.] PSYCH: [Normal mood and affect.] Course Vital Signs Vital signs: Vital Signs Pulse Oximetry 97 07/18/25 19:55 Temperature 36.8 C 07/19/25 18:00 Pulse Rate 96 07/19/25 18:00 Respiratory Rate 20 07/19/25 18:00 Blood Pressure 132/64 07/19/25 18:00 Pulse Oximetry 98 07/19/25 18:00 Oxygen Delivery Nasal Cannula 07/19/25 16:00 Oxygen Flow Rate 3 07/19/25 16:00 Fraction of Inspired Oxygen 32 07/19/25 08:05 Procedures Central Line Placement Right Femoral: Central Line Date: 07/18/25 Discussed w/ the patient/family/POA,the placement of a central venous catheter, including its clinical necessity/indication & associated potential risks, benifits and alternatives.: Yes The patient/family/POA understand(s) and acknowledge(s) the need to proceed with central venous catheter insertion as an important element of the patient's clinical management.: Yes Time Out Performed: Yes Patient Placed on Monitor/Pulse Ox: Yes Max. Sterile Barrier Technique: Caps, large sterile sheet and hand hygiene Central Line Prep: 2% chlorhexidine scrub and sterile drapes applied Technique: US-Guided Local Anesthetic: lidocaine 1% Amount of anesthesia used (mL): 5 Ultrasound Used for Placement: Yes Central Line Lumen Inserted: triple Post Procedure: sutured in place, good blood return, all ports aspirated, flushed, capped and sterile dressing applied Patient Tolerated Procedure: well and no complications Complications: none MDM - Fever MDM Narrative Medical decision making narrative: 80-year-old female with history of significant interstitial lung disease, COPD, CHF, recent admission to the hospital and ICU with septic shock. Patient was found to have at that time diverticulitis and pneumonia. She was treat with antibiotics and discharged to her skilled rehab facility/nursing facility. Patient presents today with fever chills and hypoxemia despite her home oxygen. She wears 2-3 L 247 but is noncompliant with this. She was found to be 85% on 2 L at home. Down to 68% on room air on arrival to the emergency department in brief transition to oxygen are wall. Improved to 95% on 4 L. patient endorses feeling fever and chills and coughing but denies any abdominal pain, chest pain, nausea, vomiting, back pain. Was otherwise in her normal state of health at her facility. Patient's physical exam is concerning for potential sepsis given patient's febrile tachycardic and hypoxemic even on her supplemental oxygen. He is coughing during the examination has coarse breath sounds. Suspect pneumonia recurrence verses other infections such as bloodstream infection with her recent hospitalization. Recently had diverticulitis but soft nontender nondistended abdomen which is reassuring. Patient given Tylenol for her fever. Septic bundle initiated with a 30 cc/kg bolus although given her CHF history will reduce this to about 1500 cc of fluid. Started on vancomycin and Zosyn for broad coverage given her allergy to ceftriaxone. Blood cultures lactic acid and CT scans of the chest abdomen pelvis were ordered. X-ray obtained and EKG ordered. Patient placed on hair and makeup designer and supplemental oxygen. ABG obtained. patient had persistently lowering blood pressures throughout the encounter today despite fluid resuscitation. Additional fluids given with transient improvement and then dropping down into the 70s systolic range. Right femoral central access was obtained under ultrasound guidance. Norepinephrine started. CT scans of the chest abdomen pelvis were largely unremarkable but she does have a urinary tract infection with suspected bacteremia as she does have an elevated white count and rapidly to tearing vital signs. She maintains good mentation and in good spirits during repeating counter. Spoke to the family for admission and patient will go to the ICU. Spoke to the intensive care unit Dr. Kaplan who accepted the patient to the ICU after discussion. Spoke to the hospitalist Dr. Carrillo who accepted the patient to the hospital at this time Lab Data 07/19/25 01:09 07/19/25 01:09 Labs: Lab Results 07/18/25 07/18/25 07/18/25 Range/Units 20:07 20:08 21:24 WBC 21.9 H (4.5-10.0) K/mm3 RBC 3.54 L (4.2-5.4) M/mm3 Hgb 11.1 L (12.0-15.0) g/dL Hct 34.8 L (37.0-47.0) % MCV 98.3 (80-100) fl MCH 31.4 (26-34) pg MCHC 31.9 L (32-36) g/dl RDW 15.8 H (11.5-14.5) % Plt Count 294 (150-375) k/mm3 MPV 11.4 H (7.4-10.4) fl Immature Gran % (Auto) Not Reportable Neut % (Auto) Not Reportable Lymph % (Auto) Not Reportable [place] % (Auto) Not Reportable Eos % (Auto) Not Reportable Baso % (Auto) Not Reportable Lymph # (Auto) Not Reportable [place] # (Auto) Not Reportable Eos # (Auto) Not Reportable Baso # (Auto) Not Reportable Abs Immat Gran (auto) Not Reportable Absolute Neuts (auto) Not Reportable Absolute Nucleated RBC Not Reportable Total Counted 100 Neutrophils % (Manual) 84 H (46-73) % Band Neutrophils % 6 (0-6) % Lymphocytes % (Manual) 7.0 L (18-44) % Monocytes % (Manual) 3 (3-9) % Nucleated RBC % Not Reportable Abs Neuts (Manual) 19.71 H (1.3-6.7) K/mm3 Abs Lymphs (Manual) 1.53 (1.1-4.5) K/mm3 Abs Monocytes (Manual) 0.65 (0.1-0.90) K/mm3 Platelet Estimate Adequate (Adequate) Hypochromasia 1+ Anisocytosis 2+ Schistocytes None seen PT 15.7 H (11.1-14.7) Seconds INR 1.3 APTT 53.6 H (22.3-36.8) Seconds Methemoglobin 0.4 (0-1.5) %THb Sodium 136 L (137-145) mmol/L Potassium 4.2 (3.4-5.0) mmol/L Chloride 96 L (98-107) mmol/L Carbon Dioxide 31 H (22-30) mmol/L Anion Gap 9 (4-12) mmol/L BUN 21 H (7-17) mg/dL Creatinine 0.98 (0.7-1.0) mg/dL Estim Creat Clear Calc 39 ml/min Estimated GFR 54 L (59 - ) Glucose 137 H (65-110) mg/dL Lactic Acid 2.0 (0.7-2.0) mmol/L Calcium 8.8 (8.4-10.2) mg/dL Total Bilirubin 0.4 (0.2-1.3) mg/dL AST 33 (14-36) U/L ALT 28 (6-35) U/L Alkaline Phosphatase 75 (38-126) U/L C-Reactive Protein 3.2 H (<1.0) mg/dL Total Protein 8.2 (6.3-8.2) g/dL Albumin 4.3 (3.5-5.1) g/dL Urine Color Yellow (Yellow) Urine Appearance Cloudy H (Clear) Urine pH 8.0 (5.0-9.0) Ur Specific [place] 1.021 (1.001-1.035) Urine Protein Trace (Negative) mg/dL Urine Glucose (UA) Negative (Negative) mg/dL Urine Ketones Negative (Negative) mg/dL Ur Blood (Man) Negative (Negative) Urine Nitrate Negative (Negative) Urine Bilirubin Negative (Negative) Urine Urobilinogen 0.2 (<2.0) mg/dL Add Ur Microanalysis Reviewed Leukocyte Esterase Rfl 3+ H (Negative) DENTON/UL Urine RBC 0-2 (0-2) /hpf Urine WBC >100 H (0-3) /hpf Ur Squamous Epith Cells None seen (Few) /hpf Urine Bacteria 4+ H /hpf Urine Casts 3-5 ABG Data ABG results: 07/18/25 20:08 Puncture Site Left brachial ABG pH 7.358 ABG pCO2 54.8 H ABG pO2 73.8 L ABG PO2/FiO2 Ratio 2.05 ABG HCO3 30.1 H ABG O2 Saturation 94.0 L ABG O2 Content 14.9 L ABG Base Excess 3.6 A-a Gradient 119.3 Oxyhemoglobin 92.7 Carboxyhemoglobin 0.3 Reduced Hemoglobin 6.6 H Total Hemoglobin 11.4 L O2 Delivery Device Nasal cannula O2 Liters/Min 4.0 FiO2 36 Critical Care Time Critical Care Time Critical Care Time: Yes Total Critical Care Time: 80 Discharge Plan Discharge Clinical Impression: Septic shock, Acute UTI Patient Disposition: Still a Patient Condition: Serious
[2025-07-18 20:14] LABS: Hematocrit 34.8 % (37.0-47.0); Hemoglobin 11.1 g/dL (12.0-15.0); Mean Corpuscular HGB Conc 31.9 g/dl (32-36); Mean Corpuscular Hemoglobin 31.4 pg (26-34); Mean Corpuscular Volume 98.3 fl (80-100); Platelet Count Result 294 k/mm3 (150-375); Red Blood Count 3.54 M/mm3 (4.2-5.4); White Blood Count 21.9 K/mm3 (4.5-10.0)
[2025-07-18 20:14] LABS: Alveolar/Arterial O2 Gradient 119.3 mmHg; Carboxyhemoglobin 0.3 % THb (0-2.0); Fractional Inspired Oxygen 36 %; HCO3 ABG 30.1 mEq/l (22.0-26.0); Methemoglobin ABG 0.4 %THb (0-1.5); Oxygen Content ABG 14.9 %vol (16.0-22.0); Oxygen Saturation ABG 94.0 % (95.0-100.0); PCO2 ABG 54.8 mmHg (35.0-45.0); PO2 ABG 73.8 mmHg (80.0-100.0); PO2 FiO2 Ratio Arterial Blood 2.05 %; Reduced Hemoglobin 6.6 %THb (0-5.0)
[2025-07-18 20:16] LABS: Liters per Minute 4.0 LPM; Site Drawn LEFT BRACHIAL
[2025-07-18] MEDS: SODIUM CHLORIDE 0.9% IV 1,000 ML 999 ML IV CONT (20:24)
[2025-07-18] MEDS: SODIUM CHLORIDE 0.9% IV 500 ML 999 ML IV CONT (20:24)
[2025-07-18] MEDS: ACETAMINOPHEN 500 MG TABLET 1000 MG PO (20:25)
[2025-07-18 20:26] LABS: INR 1.3; Prothrombin Time 15.7 Seconds (11.1-14.7)
[2025-07-18 20:27] LABS: Partial Thromboplastin Time 53.6 Seconds (22.3-36.8)
[2025-07-18 20:30] LABS: Alanine Aminotransferase 28 U/L (6-35); Albumin Level 4.3 g/dL (3.5-5.1); Alkaline Phosphatase 75 U/L (38-126); Anion Gap 9 mmol/L (4-12); Aspartate Amino Transferase 33 U/L (14-36); Bilirubin,Total 0.4 mg/dL (0.2-1.3); Blood Urea Nitrogen 21 mg/dL (7-17); CRP 3.2 mg/dL (<1.0); Calcium 8.8 mg/dL (8.4-10.2); Carbon Dioxide 31 mmol/L (22-30); Chloride 96 mmol/L (98-107); Estimated CRCL calculation 39 ml/min; Estimated Glomerular Filt Rate 54; Glucose 137 mg/dL (65-110); Potassium 4.2 mmol/L (3.4-5.0); Sodium 136 mmol/L (137-145); Total Protein 8.2 g/dL (6.3-8.2)
--- OUTSIDE RECORDS SUMMARY | 2025-07-18 20:30 | XMS_ITS | Encounter Summary ---
Author Organization 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
--- OUTSIDE RECORDS SUMMARY | 2025-07-18 20:30 | XMS_ITS | Clinical Summary ---
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 Gender Identity Not on file Sexual Orientation [...] of 3) 10/11/2013 08/16/2013 Covid-19 Vaccine (3 - 2024-2 6 season) 2025 11/19/2020, 10/29/2020 Influenza Vaccine (#1) 2025 , 07/02/2019, 07/28/2018, Additional history exists DTaP/Tdap/Td Vaccine (3 - Td or Tdap) 05/06/2031 05/06/2021, 09/11/2013 Pneumococcal vaccine 65+ Completed 018, 07/09/2015, 07/28/2010 Insurance IDPA [facility] MEDICARE ADVANTAGE [facility] MEDICARE IDPA [facility] MEDICARE ADVANTAGE IDPA Advance Directives For more information, please contact: [phone] Documents on File Type Date Recorded Patient Recreation Supervisor Expl anation ADVANCE DIRECTIVE 02/09/2013 12:00 AM GREYSON Elizondo [employer] Care Teams Stick Roller Relationship Specialty Start Date End Date Mack Vanegas DO PCP - General Internal Medicine 03/07/19
--- OUTSIDE RECORDS SUMMARY | 2025-07-18 20:30 | XMS_ITS | Clinical Summary ---
Author Organization [facility] Address [address] [place] [address] Care Team Providers Care Hardener Helper Name Role Phone PastoradruMack montanez DO Primary Care Provider Source Comments [facility],non-owned Affiliates and Associated Physician Practices is amultiple site organization consisting of ambulatory clinics and hospital sitesin [place], [place], [place] and [place]. This disclosure is being madepursuant to the Care Everywhere program and may not contain all information available regarding this patient. 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
[2025-07-18 20:35] LABS: Band Neutrophils Percent 6 % (0-6); Hypochromasia 1+; Lymphocytes Absolute Manual 1.53 K/mm3 (1.1-4.5); Lymphocytes Percent Manual 7.0 % (18-44); Monocytes Absolute Manual 0.65 K/mm3 (0.1-0.90); Monocytes Percent Manual 3 % (3-9); Neutrophils Absolute Manual 19.71 K/mm3 (1.3-6.7); Neutrophils Percent Manual 84 % (46-73); Schistocytes None Seen; Total Cells Counted 100
[2025-07-18 20:36] LABS: Anisocytosis 2+
[2025-07-18] MEDS: PIPERACILLIN/TAZOBACTAM SOD 4.5 GM in SODIUM CHLORIDE 0.9% IV 100 ML 200 ML IVPB (21:38)
[2025-07-18 21:42] LABS: Add Urine Microscopic? YES; Appearance Urine Cloudy (Clear); Glucose Urine UA Negative (Negative); Leukocyte Esterase Ur 3+ LEU/UL (Negative); Need Manual Microscopic Reviewed; Nitrate Urine Negative (Negative); Specific Grav Ur 1.021 (1.001-1.035)
[2025-07-18] MEDS: HYDROcodone/acetaminophen (*CRX) 5-325 MG TABLET 1 TAB PO (21:51)
[2025-07-18] MEDS: LACTATED RINGERS 1,000 ML 999 ML IV CONT (21:52)
[2025-07-18] MEDS: NOREPINEPHRINE 8 MG/D5W 250 ML 8 MG/250 ML BAG 9.38 MG IV CONT (22:24)
[2025-07-18] MEDS: VANCOMYCIN 1,750 MG/NS 500 ML 1,750 MG/500 ML BAG 250 MG IVPB (23:15)
[2025-07-19] VITALS (37 sets, daily range): BP systolic 92–136; BP diastolic 35–99; PULSE 62–96; RESP 13–22; TEMP 36.7–37.2; O2SAT 86–100
--- NOTE | 2025-07-19 00:26 | ADMGEN ---
This patient, Gabbi Champagne, was admitted to Intensive Care Unit-3 on 07/19/25 at 0012. Patient/family oriented to hospital policies and general routines including ID bracelet, bed and alarms, visiting hours, pain management, procedures, bathroom and other care routines, personal items, smoking policy, room service/diet, and visiting hours. Information on how to activate the Rapid Response Team has been discussed. Patient/Family are encouraged to report perceived risks to care and to ask questions if they do not understand what they are told or what they should do.
[2025-07-19 01:33] LABS: Estimated CRCL calculation 45 ml/min; Estimated Glomerular Filt Rate > 60
--- NOTE | 2025-07-19 01:56 | PM.IMHP ---
H&P: HPI History of Present Illness Date/Time: 07/19/25 01:56 Chief Complaint: Increased weakness Narrative: 80-year-old female with a past medical history interstitial lung disease, COPD, chronic hypoxic hypercarbic respiratory failure, pulmonary artery hypertension, peripheral vascular disease, CVA exocrine pancreatic insufficiency and distant history of C diff colitis who presented to the ER via EMS from nursing and rehab due to fever and increased weakness. The patient reports that she has been having increased cough for the last week her cough is nonproductive. She denies any nausea or vomiting but has had decreased appetite. She was found to be a hypoxemic with saturations down to 60% on room air as she is noncompliant with her oxygen therapy at times. She is post be on chronic home O2 of 2-3 L. the she had increasing oxygen saturations up to 85% on her home 2 L of oxygen. When oxygen was increased to 4 L she improved to 95%. She has been having a dry cough. She has been feeling chilled and her temperature was a 103.2? on arrival to the ER. She denies any abdominal pain but is been having or chronic loose stools. Review of Systems Review of Systems: 12 systems were reviewed with pertinent positives and negatives per HPI. Except as documented in the HPI, all other systems were reviewed and are negative. [facility] Past Medical History Medical History (Updated 07/19/25 @ 04:11 by Ayesha Carrillo DO) Chronic diarrhea Diverticular disease of intestine with perforation and abscess (04/2025) Pulmonary embolism Chronic respiratory failure with hypoxia and hypercapnia On 2 to 3 L nasal cannula. Dementia OAB (overactive bladder) Anemia of chronic disease Sigmoid diverticulitis with abscess and shock, April 2025 Exocrine pancreatic insufficiency Pancreatitis Chronic anticoagulation Hyperlipidemia Diastolic congestive heart failure Hypertension Drug overdose Pulmonary embolism (06/2021) Pulmonary arterial hypertension Chronic interstitial lung disease Peripheral vascular disease Cerebrovascular accident Clostridium difficile diarrhea Prediabetes History of peptic ulcer Gastroesophageal reflux disease Chronic obstructive pulmonary disease Pneumonia due to 2019-nCoV (06/11/21) Migraine Herniated disc Osteoporosis Anxiety Depression Arthritis GI bleed Emphysema of lung Surgical History Surgical History History of lumbar fusion x2 History of neck surgery (2001) History of tonsillectomy History of bladder suspension procedure History of hysterectomy History of tubal ligation History of cholecystectomy History of cardiac cath History of vascular surgery Left lower extremity. Family History Family History Father Family history of Parkinson's disease Mother Family history of pancreatic cancer Family history of chronic obstructive pulmonary disease Other Patient's brother is in good health Social History Social History (Updated 07/19/25 @ 02:02 by Ayesha Carrillo DO) Social History: Surrogate decision maker: Stefanie Finney, granddaughter. Code status: DNR/DNI but okay with pressors Smoking packs per day: 0.5 Smoking cigarettes per day: 10.0 Years smoked: 20 Smoking pack-years: 10.00 Smoking status: Former smoker Tobacco type: cigarettes Second hand tobacco smoke exposure: Yes Alcohol intake: never Substance use: never Substance use type: does not use Do You Feel Safe in your Home?: Yes Lack of Transportation: No Lack of Food: Never True Current Housing: I Have Housing Concerned About Future Housing: No Difficulty Paying Gas/Electric Bills: No Difficulty Paying for Meds: No Currently Unemployed: No Education: Decline to Answer Difficulty w/ Childcare or Family Care: No Living arrangements: half-way Additional living arrangements comments: Resident of [facility]. Additional occupation/education comments: Retired. Spiritual care concerns: No Meds Home Medications and Allergies Home Medications ?Medication ?Instructions ?Recorded ?Confirmed ?Type folic acid 1 mg tablet 1 mg PO DAILY #90 tabs 03/30/21 07/19/25 Rx acetaminophen 650 mg 650 mg PO Q6H PRN Mild Pain (Scale 10/09/21 07/19/25 History tablet,extended release Score 1-4) carvedilol 3.125 mg tablet (Coreg) 3.125 mg PO BID 10/09/21 07/19/25 History Held on 06/14/25. Instructions: Resume on 06/28/25. Please discuss with your PCP before continuing. ondansetron 4 mg disintegrating 8 mg PO Q6H PRN nausea and 10/09/21 07/19/25 History tablet vomitting apixaban 2.5 mg tablet (Eliquis) 2.5 mg PO BID 01/12/23 07/19/25 History bupropion HCl 75 mg tablet 75 mg PO DAILY 01/12/23 07/19/25 History furosemide 40 mg tablet 40 mg PO QAM 01/12/23 07/19/25 History guaifenesin 600 mg tablet, 600 mg PO BID 01/12/23 07/19/25 History extended release 12 hr albuterol sulfate 2.5 mg/3 mL 2.5 mg inhalation QID PRN SOB 04/18/24 07/19/25 History (0.083 %) solution for nebulization omega 3-bte-afh-fish oil 1,000 mg 1 cap PO DAILY 04/18/24 07/19/25 History (120 mg-180 mg) capsule (Fish Oil) artificial tears solution eye drops 1 drp ophthalmic (eye) BID dry eyes 04/21/24 07/19/25 History cholecalciferol (vitamin D3) 25 25 mcg PO DAILY 04/21/24 07/19/25 History mcg (1,000 unit) tablet loperamide 2 mg capsule 2 mg PO Q12H PRN Diarrhea 04/21/24 07/19/25 History ascorbic acid (vitamin C) 500 mg 500 mg PO BID 03/19/25 07/19/25 History tablet atorvastatin 40 mg tablet 40 mg PO QPM 03/19/25 07/19/25 History bisacodyl 10 mg rectal suppository 10 mg RECTAL DAILY PRN constipation 03/19/25 07/19/25 History diclofenac sodium 50 mg 50 mg PO Q12H PRN inflammation 03/19/25 07/19/25 History tablet,delayed release fexofenadine 180 mg tablet 180 mg PO DAILY 03/19/25 07/19/25 History (Lea Allergy) magnesium citrate (Citroma oral 296 ml PO DAILY PRN constipation 03/19/25 07/19/25 History solution) Held on 06/14/25. Instructions: Resume on 07/05/25. Please discuss with your PCP before continuing. methotrexate sodium 7.5 mg tablet 7.5 mg PO WEEKLY 03/19/25 07/19/25 History (Trexall) multivitamin (Daily Multi-Vitamin 1 tablet PO DAILY 03/19/25 07/19/25 History tablet) sennosides 8.6 mg capsule (senna) 8.6 mg PO BID 03/19/25 07/19/25 History budesonide 0.5 mg/2 mL suspension 0.5 mg (2 mL) inhalation Q12HRT 04/01/25 07/19/25 Rx for nebulization (Pulmicort) #30 mL fluticasone propionate 50 1 spray intranasal Q12HR #30 grams 04/01/25 07/19/25 Rx mcg/actuation nasal spray,suspension baclofen 10 mg tablet 10 mg PO Q6H PRN moderate pain 04/18/25 07/19/25 History esomeprazole magnesium 40 mg 40 mg PO DAILY 05/05/25 07/19/25 History granules delayed release for susp Lactobacillus acidophilus 100 mg PO BID 06/11/25 07/19/25 History cetirizine 10 mg tablet (24Hour 5 mg PO HS 06/11/25 07/19/25 History Allergy) diphenhydramine HCl 25 mg capsule 25 mg PO Q6H PRN itching 06/11/25 07/19/25 History (Allergy (diphenhydramine)) hydrocodone 5 mg-acetaminophen 325 1 tablet PO TID PRN pain 06/11/25 07/19/25 History mg tablet jlnkwv-ssoggnyy-wdkjuv(pork)24,000-76,000-120,000 2 cap PO TIDWM 06/11/25 07/19/25 History unit capsule,del rel (Creon) polyethylene glycol 3350 17 gram 17 g PO DAILY 06/11/25 07/19/25 History oral powder packet (ClearLax) Held on 06/14/25. Instructions: Resume on 07/05/25. Please discuss with your PCP before continuing. sodium phosphates 19 gram-7 118 ml RECTAL DAILY PRN 06/11/25 07/19/25 History gram/118 mL enema (Enema) constipation trazodone 50 mg tablet 50 mg PO HS 06/11/25 07/19/25 History Held on 06/14/25. Instructions: Resume on 07/05/25. Please discuss with your PCP before continuing. umeclidinium 62.5 mcg-vilanterol 1 inh inhalation Q24H 06/11/25 07/19/25 History 25 mcg/actuation powdr for inhalation (Anoro Ellipta) benzonatate 100 mg capsule 100 mg PO TID PRN Cough #30 caps 06/14/25 07/19/25 Rx amlodipine 5 mg tablet 5 mg PO DAILY 07/19/25 07/19/25 History baclofen 10 mg tablet 10 mg PO Q12H 07/19/25 07/19/25 History ferrous sulfate 325 mg (65 mg 325 mg PO DAILY 07/19/25 07/19/25 History iron) tablet ondansetron HCl 4 mg tablet 4 mg PO TID 07/19/25 07/19/25 History pregabalin 150 mg capsule (Lyrica) 100 mg PO Q8H 07/19/25 07/19/25 History Allergies Allergy/AdvReac Type Severity Reaction Status Date / Time ceftriaxone (From Rocephin) Allergy Intermediate Rash Verified 07/19/25 00:37 Sulfa (Sulfonamide Allergy Intermediate Rash Verified 07/19/25 00:37 Antibiotics) morphine AdvReac Mild Hallucinati Verified 07/19/25 00:37 ng Vital Signs Vital Signs - 24 hr 07/18/25 19:55 07/18/25 19:56 07/18/25 19:58 Temperature 103.2 F H Pulse Rate 112 H 103 H Respiratory Rate 19 19 Blood Pressure 109/49 L 106/45 L Pulse Oximetry 97 98 99 Oxygen Delivery Nasal Cannula Oxygen Flow Rate 4 07/18/25 20:00 07/18/25 20:01 07/18/25 20:15 Temperature Pulse Rate 113 H 104 H 108 H Respiratory Rate 19 19 19 Blood Pressure 109/38 L Pulse Oximetry 98 98 99 Oxygen Delivery Oxygen Flow Rate 07/18/25 20:16 07/18/25 20:16 07/18/25 20:30 Temperature Pulse Rate 103 H 103 H Respiratory Rate 20 19 19 Blood Pressure 106/45 L Pulse Oximetry 98 Oxygen Delivery Oxygen Flow Rate 07/18/25 20:31 07/18/25 20:32 07/18/25 21:15 Temperature Pulse Rate 115 H 105 H 103 H Respiratory Rate 20 20 20 Blood Pressure 117/57 L Pulse Oximetry 98 96 100 Oxygen Delivery Oxygen Flow Rate 07/18/25 21:16 07/18/25 21:36 07/18/25 21:50 Temperature Pulse Rate 102 H 100 94 Respiratory Rate 15 18 17 Blood Pressure 105/61 Pulse Oximetry 98 96 96 Oxygen Delivery Oxygen Flow Rate 07/18/25 21:54 07/18/25 22:00 07/18/25 22:01 Temperature 99.2 F Pulse Rate 92 90 89 Respiratory Rate 17 16 17 Blood Pressure 82/40 L 75/38 L Pulse Oximetry 96 94 97 Oxygen Delivery Oxygen Flow Rate 07/18/25 22:02 07/18/25 22:24 07/18/25 22:34 Temperature Pulse Rate 91 88 84 Respiratory Rate 17 Blood Pressure 76/38 L 72/38 L Pulse Oximetry 96 Oxygen Delivery Oxygen Flow Rate 07/18/25 22:39 07/18/25 22:39 07/18/25 22:41 Temperature Pulse Rate 74 74 73 Respiratory Rate 16 15 Blood Pressure 89/43 L 105/51 L Pulse Oximetry 97 97 Oxygen Delivery Oxygen Flow Rate 07/18/25 23:09 07/18/25 23:11 07/18/25 23:15 Temperature Pulse Rate 72 71 72 Respiratory Rate 16 16 Blood Pressure 110/44 L 110/44 L Pulse Oximetry 96 96 Oxygen Delivery Oxygen Flow Rate 07/18/25 23:15 07/18/25 23:16 07/18/25 23:21 Temperature Pulse Rate 71 72 73 Respiratory Rate 14 16 15 Blood Pressure 102/49 L 115/47 L Pulse Oximetry 94 96 96 Oxygen Delivery Oxygen Flow Rate 07/18/25 23:51 07/19/25 00:10 07/19/25 00:15 Temperature Pulse Rate 75 71 68 Respiratory Rate 18 16 15 Blood Pressure 112/58 L 100/35 L Pulse Oximetry 95 Oxygen Delivery Oxygen Flow Rate 07/19/25 00:16 07/19/25 00:30 07/19/25 01:00 Temperature 98.2 F 98.2 F Pulse Rate 68 73 93 Respiratory Rate 16 15 14 Blood Pressure 95/37 L 126/48 L 120/51 L Pulse Oximetry 99 99 Oxygen Delivery Oxygen Flow Rate Exam Narrative: Weight 75.3 kg BMI 29.4 Const: Other: Acutely ill-appearing, elderly, overweight HENMT: Other: Mucous membranes are tacky, no oral pharyngeal erythema, positive conjunctival pallor, no scleral icterus Neck: Other: No lymphadenopathy, large neck circumference, no JVD Resp: Other: End-expiratory wheezing anterior goodwin, crackles at bilateral bases, no increased work of breathing Cardio: Other: Regular rate, regular rhythm, 2+ bilateral radial pedal pulses, no JVD GI: Other: Soft, nontender, nondistended, positive bowel sounds : Other: Pure wick catheter in place with at least 500 mL of pale clear yellow urine in VAC canister Skin: Other: Generalized pallor, non jaundice Neuro: Other: Somnolent but wakes up easily to verbal stimuli but falls back asleep in the middle of answering questions, alert oriented to person, place and time, speech is clear with no facial asymmetry, no gross motor deficits noted on limited exam Extrem: Other: No clubbing, no cyanosis, adequate cap refill Psych: Other: Somnolent but pleasant and cooperative, fair judgment and insight H&P: Results Labs Labs: Laboratory Tests 07/18/25 20:07 07/19/25 01:09 07/18/25 07/18/25 07/18/25 20:07 20:08 21:24 WBC 21.9 H RBC 3.54 L Hgb 11.1 L Hct 34.8 L MCV 98.3 MCH 31.4 MCHC 31.9 L RDW 15.8 H Plt Count 294 MPV 11.4 H Immature Gran % (Auto) Not Reportable Neut % (Auto) Not Reportable Lymph % (Auto) Not Reportable [place] % (Auto) Not Reportable Eos % (Auto) Not Reportable Baso % (Auto) Not Reportable Lymph # (Auto) Not Reportable [place] # (Auto) Not Reportable Eos # (Auto) Not Reportable Baso # (Auto) Not Reportable Abs Immat Gran (auto) Not Reportable Absolute Neuts (auto) Not Reportable Absolute Nucleated RBC Not Reportable Total Counted 100 Neutrophils % (Manual) 84 H Band Neutrophils % 6 Lymphocytes % (Manual) 7.0 L Monocytes % (Manual) 3 Nucleated RBC % Not Reportable Abs Neuts (Manual) 19.71 H Abs Lymphs (Manual) 1.53 Abs Monocytes (Manual) 0.65 Platelet Estimate Adequate Hypochromasia 1+ Anisocytosis 2+ Schistocytes None seen PT 15.7 H INR 1.3 APTT 53.6 H Puncture Site Left brachial ABG pH 7.358 ABG pCO2 54.8 H ABG pO2 73.8 L ABG PO2/FiO2 Ratio 2.05 ABG HCO3 30.1 H ABG O2 Saturation 94.0 L ABG O2 Content 14.9 L ABG Base Excess 3.6 A-a Gradient 119.3 Oxyhemoglobin 92.7 Carboxyhemoglobin 0.3 Methemoglobin 0.4 Reduced Hemoglobin 6.6 H Total Hemoglobin 11.4 L O2 Delivery Device Nasal cannula O2 Liters/Min 4.0 FiO2 36 Sodium 136 L Potassium 4.2 Chloride 96 L Carbon Dioxide 31 H Anion Gap 9 BUN 21 H Creatinine 0.98 Estim Creat Clear Calc 39 Estimated GFR 54 L Glucose 137 H Lactic Acid 2.0 Calcium 8.8 Total Bilirubin 0.4 AST 33 ALT 28 Alkaline Phosphatase 75 C-Reactive Protein 3.2 H Total Protein 8.2 Albumin 4.3 Urine Color Yellow Urine Appearance Cloudy H Urine pH 8.0 Ur Specific [place] 1.021 Urine Protein Trace Urine Glucose (UA) Negative Urine Ketones Negative Ur Blood (Man) Negative Urine Nitrate Negative Urine Bilirubin Negative Urine Urobilinogen 0.2 Add Ur Microanalysis Reviewed Leukocyte Esterase Rfl 3+ H Urine RBC 0-2 Urine WBC >100 H Ur Squamous Epith Cells None seen Urine Bacteria 4+ H Urine Casts 3-5 07/19/25 01:09 WBC RBC Hgb Hct MCV MCH MCHC RDW Plt Count MPV Immature Gran % (Auto) Neut % (Auto) Lymph % (Auto) [place] % (Auto) Eos % (Auto) Baso % (Auto) Lymph # (Auto) [place] # (Auto) Eos # (Auto) Baso # (Auto) Abs Immat Gran (auto) Absolute Neuts (auto) Absolute Nucleated RBC Total Counted Neutrophils % (Manual) Band Neutrophils % Lymphocytes % (Manual) Monocytes % (Manual) Nucleated RBC % Abs Neuts (Manual) Abs Lymphs (Manual) Abs Monocytes (Manual) Platelet Estimate Hypochromasia Anisocytosis Schistocytes PT INR APTT Puncture Site ABG pH ABG pCO2 ABG pO2 ABG PO2/FiO2 Ratio ABG HCO3 ABG O2 Saturation ABG O2 Content ABG Base Excess A-a Gradient Oxyhemoglobin Carboxyhemoglobin Methemoglobin Reduced Hemoglobin Total Hemoglobin O2 Delivery Device O2 Liters/Min FiO2 Sodium Potassium Chloride Carbon Dioxide Anion Gap BUN Creatinine 0.83 Estim Creat Clear Calc 45 Estimated GFR > 60 Glucose Lactic Acid Calcium Total Bilirubin AST ALT Alkaline Phosphatase C-Reactive Protein Total Protein Albumin Urine Color Urine Appearance Urine pH Ur Specific [place] Urine Protein Urine Glucose (UA) Urine Ketones Ur Blood (Man) Urine Nitrate Urine Bilirubin Urine Urobilinogen Add Ur Microanalysis Leukocyte Esterase Rfl Urine RBC Urine WBC Ur Squamous Epith Cells Urine Bacteria Urine Casts Impressions Chest X-Ray 07/18/25 20:23 IMPRESSION: Bilateral infiltrates. Chest/Abdomen/Pelvis CT 07/18/25 21:09 IMPRESSION: No acute cardiopulmonary process. Fibrotic changes are present bilaterally. Enlarged paraesophageal lymph nodes are noted. CT abdomen and pelvis with contrast: The liver parenchyma is unremarkable. There are dilatation of the left hepatic biliary ducts and common bile duct. The gallbladder is unremarkable. The pancreas and spleen are normal in appearance. 1.3 cm right adrenal nodule is noted. Left adrenal glands are unremarkable. The kidneys demonstrate symmetric uptake and excretion of contrast. Benign renal cysts are noted. There is no solid mass. There is no hydronephrosis. Evaluation of the stomach and bowel loops are limited due to lack of oral contrast. The appendix is not visualized however no secondary signs of appendicitis are identified. There is segmental thickening of the proximal sigmoid colon seen on axial image 198. Although this may be related to postinflammatory changes. Diverticulosis. Tumor cannot be excluded. If clinically indicated follow-up colonoscopy. There is colonic diverticulosis without evidence of acute diverticulitis. The bladder and rectum are normal. No free intraperitoneal fluid or air is evident. There is no significant retroperitoneal lymphadenopathy. The aorta, visceral vessels and renal arteries demonstrate normal caliber and patency. The lower thoracic and lumbar vertebrae are in normal alignment. IMPRESSION: Focal short segment of thickening of the sigmoid colon. Follow-up colonoscopy is recommended. Colonic diverticulosis without evidence of acute diverticulitis. Indeterminate 1.3 cm right adrenal nodule. This can be further evaluated with CT using adrenal protocol. Assessment and Plan Assessment and plan (1) Septic shock: Code(s): A41.9 - Sepsis, unspecified organism; R65.21 - Severe sepsis with septic shock Status: Acute (2) Abnormal urinalysis: Code(s): R82.90 - Unspecified abnormal findings in urine Status: Acute (3) Mural thickening of sigmoid colon: Code(s): K63.9 - Disease of intestine, unspecified Status: Acute (4) Chronic diarrhea: Code(s): K52.9 - Noninfective gastroenteritis and colitis, unspecified Status: Acute (5) Acute hypoxic on chronic hypercapnic respiratory failure: Code(s): J96.01 - Acute respiratory failure with hypoxia; J96.12 - Chronic respiratory failure with hypercapnia Status: Acute Plan The patient presents with septic shock. Patient has significant elevation in her white count fever of 103.2, tachycardia abnormal urinalysis and CT evidence of focal segment of sigmoid thickening which all could be potential sources of infection. Her CT demonstrates chronic lung findings but she reports that increasing cough for underlying recurrent pneumonia is also not ruled out. She has mild increase hypoxia on a chronic hypoxic hypercapnic respiratory failure. Will add IV Solu-Medrol for some component of possible COPD exacerbation. As well as adding scheduled nebulizer treatments. Despite greater than 30 mL/kilos fluid bolus in the ER the patient remained hypotensive. She has subsequently had a femoral line placed they and has been started on Levophed Levophed at the time my evaluation was at 15. Will titrate Levophed from maintain maps 60-65 and systolic blood pressures greater than 90. Patient was started on empiric antibiotic therapy with Zosyn and vancomycin. Blood cultures and urine cultures have been obtained. Will monitor strict I&O's with pure wick catheter. Patient has had about 500 mL of urine output in the pure wick. Patient has chronic diarrhea unchanged from baseline. Patient was started on broad-spectrum antibiotic coverage with Zosyn and vancomycin which will be continued. Patient has been admitted to the ICU and the airport manager has been consulted. Will continue maintenance IV fluids. Will check a random cortisol level. Will repeat CBC and electrolyte panel in a.m.. 45 minutes spent in critical care activities. Due to a high probability of clinically significant, life threatening deterioration, the patient required my highest level of preparedness to intervene emergently and I personally spent this critical care time directly and personally managing the patient. This critical care time included obtaining a history; examining the patient; pulse oximetry; ordering and review of studies; arranging urgent treatment with development of a management plan; evaluation of patient's response to treatment; frequent reassessment; and discussions with other providers. It was exclusive of separately billable procedures and treating other patients and teaching time. Please see Assessment and Plan section and the rest of the note for further information on patient assessment and treatment. Quality VTE Prophylaxis VTE prophylaxis: pharmacologic ordered (Will resume home Eliquis.) Hospitalist [facility] Advance Care Plan I have confirmed that the patient's Advanced Care Plan is present, code status is documented, or surrogate decision maker is listed in patient medical record.: Yes Medication Reconciliation I have utilized all available resources to obtain, update and review the patients current medications (includes all prescriptions, OTC, herbals, cannabis, and nutritional supplements).: Yes
[2025-07-19] MEDS: LACTATED RINGERS 1,000 ML 125 ML IV CONT ×3 (02:00→21:22)
[2025-07-19 03:56] LABS: Alanine Aminotransferase 23 U/L (6-35); Albumin Level 3.3 g/dL (3.5-5.1); Alkaline Phosphatase 71 U/L (38-126); Anion Gap 8 mmol/L (4-12); Aspartate Amino Transferase 28 U/L (14-36); Bilirubin,Total 0.3 mg/dL (0.2-1.3); Blood Urea Nitrogen 19 mg/dL (7-17); Calcium 7.7 mg/dL (8.4-10.2); Carbon Dioxide 28 mmol/L (22-30); Chloride 102 mmol/L (98-107); Estimated CRCL calculation 45 ml/min; Estimated Glomerular Filt Rate > 60; Glucose 191 mg/dL (65-110); Hematocrit 31.8 % (37.0-47.0); Hemoglobin 9.9 g/dL (12.0-15.0); Mean Corpuscular HGB Conc 31.1 g/dl (32-36); Mean Corpuscular Hemoglobin 31.3 pg (26-34); Mean Corpuscular Volume 100.6 fl (80-100); Platelet Count Result 331 k/mm3 (150-375); Potassium 4.1 mmol/L (3.4-5.0); Red Blood Count 3.16 M/mm3 (4.2-5.4); Sodium 138 mmol/L (137-145); Total Protein 6.1 g/dL (6.3-8.2); White Blood Count 32.8 K/mm3 (4.5-10.0)
[2025-07-19 04:27] LABS: Band Neutrophils Percent 7 % (0-6); Lymphocytes Absolute Manual 3.93 K/mm3 (1.1-4.5); Lymphocytes Percent Manual 12.0 % (18-44); Monocytes Absolute Manual 1.96 K/mm3 (0.1-0.90); Monocytes Percent Manual 6 % (3-9); Neutrophils Absolute Manual 26.89 K/mm3 (1.3-6.7); Neutrophils Percent Manual 75 % (46-73); Schistocytes None Seen; Total Cells Counted 100
[2025-07-19] MEDS: PIPERACILLIN/TAZOBACTAM SOD 3.375 GM in SODIUM CHLORIDE 0.9% IV 50 ML 100 ML IVPB ×4 (04:59→21:14)
[2025-07-19] MEDS: PREGABALIN (*CRX) 50 MG CAPSULE 100 MG PO ×3 (05:01→21:14)
[2025-07-19] MEDS: CENTRAL LINE FLUSH 10 ML IV PUSH ×3 (05:02→21:16)
[2025-07-19] MEDS: HYDROcodone/acetaminophen (*CRX) 5-325 MG TABLET 1 TAB PO ×3 (05:23→21:13)
[2025-07-19 06:55] LABS: Procalcitonin 0.5 ng/mL
[2025-07-19 07:35] LABS: MRSA (PCR) DETECTED (NOT DETECTE)
[2025-07-19] MEDS: IPRATROPIUM 0.5 MG/ALBUTEROL SULFATE 2.5 MG (BASE) AMPUL.NEB 3 ML INHALATION ×3 (08:07→21:29)
[2025-07-19] MEDS: BUDESONIDE RESPULE NEB 0.5 MG/2 ML AMP INHALATION ×2 (08:07→21:30)
--- NOTE | 2025-07-19 08:47 | WPDCNINT ---
Assessment and Plan Assessment and plan (1) Septic shock: Code(s): A41.9 - Sepsis, unspecified organism; R65.21 - Severe sepsis with septic shock Status: Acute Assessment and Plan: Septic shock secondary to UTI. CT chest abdomen pelvis reviewed UA suggestive of UTI Urine and blood culture ordered and pending Continue IV fluids and Levophed titration to maintain mean diameter pressure Conservative IV fluids due to history of CHF IV Zosyn and vancomycin as nasal MRSA screen is positive (2) Urinary tract infection: Qualifiers: Hematuria presence: without hematuria Urinary tract infection type: acute cystitis Qualified Code(s): N30.00 - Acute cystitis without hematuria Code(s): N39.0 - Urinary tract infection, site not specified Status: Resolved Assessment and Plan: See above (3) Chronic anticoagulation: Code(s): Z79.01 - snf (current) use of anticoagulants Status: Chronic Assessment and Plan: Continue Eliquis (4) COPD (chronic obstructive pulmonary disease): Qualifiers: COPD type: unspecified COPD Qualified Code(s): J44.9 - Chronic obstructive pulmonary disease, unspecified Code(s): J44.9 - Chronic obstructive pulmonary disease, unspecified Status: Chronic Assessment and Plan: Bronchodilator Decrease steroid dose (5) Chronic respiratory failure with hypoxia and hypercapnia: Code(s): J96.11 - Chronic respiratory failure with hypoxia; J96.12 - Chronic respiratory failure with hypercapnia Status: Chronic Assessment and Plan: On home oxygen (6) Chronic interstitial lung disease: Code(s): J84.9 - Interstitial pulmonary disease, unspecified Status: Acute Assessment and Plan: On home oxygen Plan DVT prophylaxis -Eliquis Stress ulcer prophylaxis -protonic Nutrition -diet ordered Code Status -patient has advanced directive. She is DNR Total Critical Care Time - 35 minutes Due to a high probability of clinically significant, life threatening deterioration, the patient required my highest level of preparedness to intervene emergently and I personally spent this critical care time directly and personally managing the patient. This critical care time included obtaining a history; examining the patient; pulse oximetry; ordering and review of studies; arranging urgent treatment with development of a management plan; evaluation of patient's response to treatment; frequent reassessment; and discussions with other providers. It was exclusive of separately billable procedures and treating other patients and teaching time. 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 Workup in the ER showed patient to be afebrile hypotensive. WBC 21.9 hemoglobin 11.1 platelet count normal Electrolytes normal except calcium 7.7 lactic acid level normal. UA suggestive of UTI CT chest abdomen pelvis IMPRESSION: Focal short segment of thickening of the sigmoid colon. Follow-up colonoscopy is recommended. Colonic diverticulosis without evidence of acute diverticulitis. Indeterminate 1.3 cm right adrenal nodule. This can be further evaluated with CT using adrenal protoc Patient was given fluid bolus and despite that patient blood pressure remained low. Patient was started on IV Levophed infusion. Patient also started on IV broad-spectrum antibiotics. Right side femoral central venous catheter was placed. Patient was admitted to ICU for further evaluation management. At this time. Patient states that she feels overall better complains of pain in her both arms and legs which is chronic and requesting pain medication. Patient denies fever, chest pain, shortness of breath, cough, nausea vomiting, abdominal pain,, diarrhea, headache or constipation. All other systems were reviewed and were negative Review of Systems Review of Systems: All systems reviewed & are unremarkable except as noted in HPI and below (HPI) [facility] Past Medical History Medical History Chronic diarrhea Diverticular disease of intestine with perforation and abscess (04/2025) Pulmonary embolism Chronic respiratory failure with hypoxia and hypercapnia On 2 to 3 L nasal cannula. Dementia OAB (overactive bladder) Anemia of chronic disease Sigmoid diverticulitis with abscess and shock, April 2025 Exocrine pancreatic insufficiency Pancreatitis Chronic anticoagulation Hyperlipidemia Diastolic congestive heart failure Hypertension Drug overdose Pulmonary embolism (06/2021) Pulmonary arterial hypertension Chronic interstitial lung disease Peripheral vascular disease Cerebrovascular accident Clostridium difficile diarrhea Prediabetes History of peptic ulcer Gastroesophageal reflux disease Chronic obstructive pulmonary disease Pneumonia due to 2019-nCoV (06/11/21) Migraine Herniated disc Osteoporosis Anxiety Depression Arthritis GI bleed Emphysema of lung Surgical History Surgical History History of lumbar fusion x2 History of neck surgery (2001) History of tonsillectomy History of bladder suspension procedure History of hysterectomy History of tubal ligation History of cholecystectomy History of cardiac cath History of vascular surgery Left lower extremity. Family History Family History Father Family history of Parkinson's disease Mother Family history of pancreatic cancer Family history of chronic obstructive pulmonary disease Other Patient's brother is in good health Social History Social History Social History: Surrogate decision maker: Stefanie Finney, granddaughter. Code status: DNR/DNI but okay with pressors Smoking packs per day: 0.5 Smoking cigarettes per day: 10.0 Years smoked: 20 Smoking pack-years: 10.00 Smoking status: Former smoker Tobacco type: cigarettes Second hand tobacco smoke exposure: Yes Alcohol intake: never Substance use: never Substance use type: does not use Do You Feel Safe in your Home?: Yes Lack of Transportation: No Lack of Food: Never True Current Housing: I Have Housing Concerned About Future Housing: No Difficulty Paying Gas/Electric Bills: No Difficulty Paying for Meds: No Currently Unemployed: No Education: Decline to Answer Difficulty w/ Childcare or Family Care: No Living arrangements: halfway Additional living arrangements comments: Resident of [facility]. Additional occupation/education comments: Retired. Spiritual care concerns: No Meds Home Medications and Allergies Home Medications ?Medication ?Instructions ?Recorded ?Confirmed ?Type folic acid 1 mg tablet 1 mg PO DAILY #90 tabs 03/30/21 07/19/25 Rx acetaminophen 650 mg 650 mg PO Q6H PRN Mild Pain (Scale 10/09/21 07/19/25 History tablet,extended release Score 1-4) carvedilol 3.125 mg tablet (Coreg) 3.125 mg PO BID 10/09/21 07/19/25 History Held on 06/14/25. Instructions: Resume on 06/28/25. Please discuss with your PCP before continuing. ondansetron 4 mg disintegrating 8 mg PO Q6H PRN nausea and 10/09/21 07/19/25 History tablet vomitting apixaban 2.5 mg tablet (Eliquis) 2.5 mg PO BID 01/12/23 07/19/25 History bupropion HCl 75 mg tablet 75 mg PO DAILY 01/12/23 07/19/25 History furosemide 40 mg tablet 40 mg PO QAM 01/12/23 07/19/25 History guaifenesin 600 mg tablet, 600 mg PO BID 01/12/23 07/19/25 History extended release 12 hr albuterol sulfate 2.5 mg/3 mL 2.5 mg inhalation QID PRN SOB 04/18/24 07/19/25 History (0.083 %) solution for nebulization omega [id number]-okv-iyv-fish oil 1,000 mg 1 cap PO DAILY 04/18/24 07/19/25 History (120 mg-180 mg) capsule (Fish Oil) artificial tears solution eye drops 1 drp ophthalmic (eye) BID dry eyes 04/21/24 07/19/25 History cholecalciferol (vitamin D3) 25 25 mcg PO DAILY 04/21/24 07/19/25 History mcg (1,000 unit) tablet loperamide 2 mg capsule 2 mg PO Q12H PRN Diarrhea 04/21/24 07/19/25 History ascorbic acid (vitamin C) 500 mg 500 mg PO BID 03/19/25 07/19/25 History tablet atorvastatin 40 mg tablet 40 mg PO QPM 03/19/25 07/19/25 History bisacodyl 10 mg rectal suppository 10 mg RECTAL DAILY PRN constipation 03/19/25 07/19/25 History diclofenac sodium 50 mg 50 mg PO Q12H PRN inflammation 03/19/25 07/19/25 History tablet,delayed release fexofenadine 180 mg tablet 180 mg PO DAILY 03/19/25 07/19/25 History (Lea Allergy) magnesium citrate (Citroma oral 296 ml PO DAILY PRN constipation 03/19/25 07/19/25 History solution) Held on 06/14/25. Instructions: Resume on 07/05/25. Please discuss with your PCP before continuing. methotrexate sodium 7.5 mg tablet 7.5 mg PO WEEKLY 03/19/25 07/19/25 History (Trexall) multivitamin (Daily Multi-Vitamin 1 tablet PO DAILY 03/19/25 07/19/25 History tablet) sennosides 8.6 mg capsule (senna) 8.6 mg PO BID 03/19/25 07/19/25 History budesonide 0.5 mg/2 mL suspension 0.5 mg (2 mL) inhalation Q12HRT 04/01/25 07/19/25 Rx for nebulization (Pulmicort) #30 mL fluticasone propionate 50 1 spray intranasal Q12HR #30 grams 04/01/25 07/19/25 Rx mcg/actuation nasal spray,suspension baclofen 10 mg tablet 10 mg PO Q6H PRN moderate pain 04/18/25 07/19/25 History esomeprazole magnesium 40 mg 40 mg PO DAILY 05/05/25 07/19/25 History granules delayed release for susp Lactobacillus acidophilus 100 mg PO BID 06/11/25 07/19/25 History cetirizine 10 mg tablet (24Hour 5 mg PO HS 06/11/25 07/19/25 History Allergy) diphenhydramine HCl 25 mg capsule 25 mg PO Q6H PRN itching 06/11/25 07/19/25 History (Allergy (diphenhydramine)) hydrocodone 5 mg-acetaminophen 325 1 tablet PO TID PRN pain 06/11/25 07/19/25 History mg tablet qjfvam-najactob-oadaeb(pork)24,000-76,000-120,000 2 cap PO TIDWM 06/11/25 07/19/25 History unit capsule,del rel (Creon) polyethylene glycol 3350 17 gram 17 g PO DAILY 06/11/25 07/19/25 History oral powder packet (ClearLax) Held on 06/14/25. Instructions: Resume on 07/05/25. Please discuss with your PCP before continuing. sodium phosphates 19 gram-7 118 ml RECTAL DAILY PRN 06/11/25 07/19/25 History gram/118 mL enema (Enema) constipation trazodone 50 mg tablet 50 mg PO HS 06/11/25 07/19/25 History Held on 06/14/25. Instructions: Resume on 07/05/25. Please discuss with your PCP before continuing. umeclidinium 62.5 mcg-vilanterol 1 inh inhalation Q24H 06/11/25 07/19/25 History 25 mcg/actuation powdr for inhalation (Anoro Ellipta) benzonatate 100 mg capsule 100 mg PO TID PRN Cough #30 caps 06/14/25 07/19/25 Rx amlodipine 5 mg tablet 5 mg PO DAILY 07/19/25 07/19/25 History baclofen 10 mg tablet 10 mg PO Q12H 07/19/25 07/19/25 History ferrous sulfate 325 mg (65 mg 325 mg PO DAILY 07/19/25 07/19/25 History iron) tablet ondansetron HCl 4 mg tablet 4 mg PO TID 07/19/25 07/19/25 History pregabalin 150 mg capsule (Lyrica) 100 mg PO Q8H 07/19/25 07/19/25 History Allergies Allergy/AdvReac Type Severity Reaction Status Date / Time ceftriaxone (From Rocephin) Allergy Intermediate Rash Verified 07/19/25 00:37 Sulfa (Sulfonamide Allergy Intermediate Rash Verified 07/19/25 00:37 Antibiotics) morphine AdvReac Mild Hallucinati Verified 07/19/25 00:37 ng Vital Signs Vital Signs - 24 hr 07/18/25 19:55 07/18/25 19:56 07/18/25 19:58 Temperature 39.6 C H Pulse Rate 112 H 103 H Respiratory Rate 19 19 Blood Pressure 109/49 L 106/45 L Pulse Oximetry 97 98 99 Oxygen Delivery Nasal Cannula Oxygen Flow Rate 4 07/18/25 20:00 07/18/25 20:01 07/18/25 20:15 Temperature Pulse Rate 113 H 104 H 108 H Respiratory Rate 19 19 19 Blood Pressure 109/38 L Pulse Oximetry 98 98 99 Oxygen Delivery Oxygen Flow Rate 07/18/25 20:16 07/18/25 20:16 07/18/25 20:30 Temperature Pulse Rate 103 H 103 H Respiratory Rate 20 19 19 Blood Pressure 106/45 L Pulse Oximetry 98 Oxygen Delivery Oxygen Flow Rate 07/18/25 20:31 07/18/25 20:32 07/18/25 21:15 Temperature Pulse Rate 115 H 105 H 103 H Respiratory Rate 20 20 20 Blood Pressure 117/57 L Pulse Oximetry 98 96 100 Oxygen Delivery Oxygen Flow Rate 07/18/25 21:16 07/18/25 21:36 07/18/25 21:50 Temperature Pulse Rate 102 H 100 94 Respiratory Rate 15 18 17 Blood Pressure 105/61 Pulse Oximetry 98 96 96 Oxygen Delivery Oxygen Flow Rate 07/18/25 21:54 07/18/25 22:00 07/18/25 22:01 Temperature 37.3 C Pulse Rate 92 90 89 Respiratory Rate 17 16 17 Blood Pressure 82/40 L 75/38 L Pulse Oximetry 96 94 97 Oxygen Delivery Oxygen Flow Rate 07/18/25 22:02 07/18/25 22:24 07/18/25 22:34 Temperature Pulse Rate 91 88 84 Respiratory Rate 17 Blood Pressure 76/38 L 72/38 L Pulse Oximetry 96 Oxygen Delivery Oxygen Flow Rate 07/18/25 22:39 07/18/25 22:39 07/18/25 22:41 Temperature Pulse Rate 74 74 73 Respiratory Rate 16 15 Blood Pressure 89/43 L 105/51 L Pulse Oximetry 97 97 Oxygen Delivery Oxygen Flow Rate 07/18/25 23:09 07/18/25 23:11 07/18/25 23:15 Temperature Pulse Rate 72 71 72 Respiratory Rate 16 16 Blood Pressure 110/44 L 110/44 L Pulse Oximetry 96 96 Oxygen Delivery Oxygen Flow Rate 07/18/25 23:15 07/18/25 23:16 07/18/25 23:21 Temperature Pulse Rate 71 72 73 Respiratory Rate 14 16 15 Blood Pressure 102/49 L 115/47 L Pulse Oximetry 94 96 96 Oxygen Delivery Oxygen Flow Rate 07/18/25 23:51 07/19/25 00:10 07/19/25 00:13 Temperature Pulse Rate 75 71 73 Respiratory Rate 18 16 Blood Pressure 112/58 L Pulse Oximetry 95 Oxygen Delivery Oxygen Flow Rate 07/19/25 00:15 07/19/25 00:15 07/19/25 00:15 Temperature Pulse Rate 68 68 70 Respiratory Rate 15 18 Blood Pressure 100/35 L 126/64 Pulse Oximetry Oxygen Delivery Oxygen Flow Rate 07/19/25 00:16 07/19/25 00:30 07/19/25 01:00 Temperature 36.8 C 36.8 C Pulse Rate 68 73 93 Respiratory Rate 16 15 14 Blood Pressure 95/37 L 126/48 L 120/51 L Pulse Oximetry 99 99 Oxygen Delivery Oxygen Flow Rate 07/19/25 01:00 07/19/25 02:00 07/19/25 02:00 Temperature Pulse Rate 76 71 65 Respiratory Rate 14 Blood Pressure 120/51 L 111/50 L Pulse Oximetry 93 Oxygen Delivery Oxygen Flow Rate 07/19/25 03:00 07/19/25 04:00 07/19/25 04:00 Temperature 36.9 C 36.7 C Pulse Rate 64 62 68 Respiratory Rate 18 16 Blood Pressure 117/54 L 136/66 Pulse Oximetry 100 100 Oxygen Delivery Oxygen Flow Rate 07/19/25 04:00 07/19/25 05:00 07/19/25 06:00 Temperature 36.8 C Pulse Rate 67 65 67 Respiratory Rate 13 18 16 Blood Pressure 114/62 115/62 Pulse Oximetry 100 100 100 Oxygen Delivery Oxygen Flow Rate 07/19/25 06:00 Temperature Pulse Rate 69 Respiratory Rate Blood Pressure Pulse Oximetry Oxygen Delivery Oxygen Flow Rate Exam Narrative: General: Pt is alert awake and in NAD Lungs/Chest: Trachea central Clear BS B/L, No crackles or wheezing. Cardiac: RRR. Normal S1 S2. No murmurs Circulation: Pedal pulses are intact and symmetrical. Abdomen: Normal bowel sounds.. Soft. NT. ND. Extremities: No clubbing, cyanosis or edema. Warm central venous catheter in right femoral vein : PureWick catheter in place Neurologic: Follows commands. Moves all 4 extremities PERRL AO x1 Skin: No Rash Results Labs 07/19/25 01:09 07/19/25 01:09 Labs: Short CBC 07/18/25 07/19/25 Range/Units 20:07 01:09 WBC 21.9 H 32.8 H (4.5-10.0) K/mm3 Hgb 11.1 L 9.9 L (12.0-15.0) g/dL Hct 34.8 L 31.8 L (37.0-47.0) % Plt Count 294 331 (150-375) k/mm3 BMP 07/18/25 07/19/25 07/19/25 20:07 01:09 01:09 Sodium 136 L 138 Potassium 4.2 4.1 Chloride 96 L 102 Carbon Dioxide 31 H 28 BUN 21 H 19 H Creatinine 0.98 0.83 0.84 Glucose 137 H 191 H Calcium 8.8 7.7 L Liver Function 07/18/25 07/19/25 Range/Units 20:07 01:09 Total Bilirubin 0.4 0.3 (0.2-1.3) mg/dL AST 33 28 (14-36) U/L ALT 28 23 (6-35) U/L Alkaline Phosphatase 75 71 (38-126) U/L Albumin 4.3 3.3 L (3.5-5.1) g/dL Urine 07/18/25 Range/Units 21:24 Urine Color Yellow (Yellow) Urine Appearance Cloudy H (Clear) Urine pH 8.0 (5.0-9.0) Ur Specific [place] 1.021 (1.001-1.035) Urine Protein Trace (Negative) mg/dL Urine Glucose (UA) Negative (Negative) mg/dL Quality VTE Prophylaxis VTE prophylaxis: pharmacologic ordered Hospitalist MIPS Advance Care Plan I have confirmed that the patient's Advanced Care Plan is present, code status is documented, or surrogate decision maker is listed in patient medical record.: Yes Medication Reconciliation I have utilized all available resources to obtain, update and review the patients current medications (includes all prescriptions, OTC, herbals, cannabis, and nutritional supplements).: Yes
[2025-07-19] MEDS: LIPASE/AMYLASE/PROTEASE 12,000 UNITS CAP 4 CAP PO ×3 (09:55→17:15)
[2025-07-19] MEDS: FERROUS SULFATE 325 MG TABLET BY MOUTH (09:56)
[2025-07-19] MEDS: FOLIC ACID 1 MG TABLET PO (09:56)
[2025-07-19] MEDS: ACIDOPHILUS/BULGARICUS CHEWABLE TABLET 1 TABLET PO ×2 (09:56→17:14)
[2025-07-19] MEDS: guaiFENesin 12 HR 600 MG TABCR PO ×2 (09:56→21:14)
[2025-07-19] MEDS: APIXABAN 2.5 MG TABLET PO ×2 (09:56→21:13)
[2025-07-19] MEDS: CHOLECALCIFEROL (VITAMIN D3) 25 MCG (1,000 UNITS) TABLET PO (09:57)
[2025-07-19] MEDS: ARTIFICIAL TEARS OPHTH SOLN 15 ML BOTTLE 1 DROP EACH EYE ×2 (09:57→17:17)
[2025-07-19] MEDS: OMEGA 3 POLYUNSAT FATTY ACIDS 1 GM CAP PO (09:58)
[2025-07-19] MEDS: HYDROCORTISONE SODIUM SUCCINATE 100 MG/2 ML VIAL IV PUSH ×2 (13:27→21:13)
[2025-07-19] MEDS: LORATADINE 10 MG TABLET PO (21:14)
[2025-07-19] MEDS: FLUTICASONE PROPIONATE 0.05% NA SPR 16 GM BTL (*BKC) 1 SPRAY NASAL (21:14)
[2025-07-19] MEDS: VANCOMYCIN 1,500 MG/NS 500 ML 1,500 MG/500 ML BAG 250 MG IVPB (22:02)
[2025-07-20] VITALS (23 sets, daily range): BP systolic 109–148; BP diastolic 53–80; PULSE 73–102; RESP 15–27; TEMP 36.8–37; O2SAT 93–100
[2025-07-20] MEDS: ACETAMINOPHEN 325 MG TABLET 650 MG PO (00:06)
[2025-07-20] MEDS: IPRATROPIUM 0.5 MG/ALBUTEROL SULFATE 2.5 MG (BASE) AMPUL.NEB 3 ML INHALATION ×3 (03:27→20:38)
[2025-07-20] MEDS: PIPERACILLIN/TAZOBACTAM SOD 3.375 GM in SODIUM CHLORIDE 0.9% IV 50 ML 100 ML IVPB ×4 (05:00→21:13)
[2025-07-20] MEDS: HYDROCORTISONE SODIUM SUCCINATE 100 MG/2 ML VIAL IV PUSH ×2 (05:01→08:59)
[2025-07-20] MEDS: CENTRAL LINE FLUSH 10 ML IV PUSH (05:01)
[2025-07-20] MEDS: PREGABALIN (*CRX) 50 MG CAPSULE 100 MG PO ×3 (05:01→21:11)
[2025-07-20 05:14] LABS: Hematocrit 25.9 % (37.0-47.0); Hemoglobin 8.1 g/dL (12.0-15.0); Mean Corpuscular HGB Conc 31.3 g/dl (32-36); Mean Corpuscular Hemoglobin 31.0 pg (26-34); Mean Corpuscular Volume 99.2 fl (80-100); Platelet Count Result 217 k/mm3 (150-375); Red Blood Count 2.61 M/mm3 (4.2-5.4); White Blood Count 19.1 K/mm3 (4.5-10.0)
[2025-07-20] MEDS: HYDROcodone/acetaminophen (*CRX) 5-325 MG TABLET 1 TAB PO ×3 (05:34→16:51)
[2025-07-20 05:37] LABS: Alanine Aminotransferase 20 U/L (6-35); Albumin Level 3.1 g/dL (3.5-5.1); Alkaline Phosphatase 56 U/L (38-126); Anion Gap 4 mmol/L (4-12); Aspartate Amino Transferase 34 U/L (14-36); Bilirubin,Total < 0.1 mg/dL (0.2-1.3); Blood Urea Nitrogen 15 mg/dL (7-17); Calcium 7.8 mg/dL (8.4-10.2); Carbon Dioxide 30 mmol/L (22-30); Chloride 103 mmol/L (98-107); Estimated CRCL calculation 50 ml/min; Estimated Glomerular Filt Rate > 60; Glucose 126 mg/dL (65-110); Magnesium 1.4 mg/dL (1.6-2.3); Potassium 3.7 mmol/L (3.4-5.0); Sodium 137 mmol/L (137-145); Total Protein 5.9 g/dL (6.3-8.2)
--- NOTE | 2025-07-20 08:59 | P.PNINT_ITS ---
Progress Note: A&P Assessment and Plan (1) Septic shock: Code(s): A41.9 - Sepsis, unspecified organism; R65.21 - Severe sepsis with septic shock Status: Acute Assessment and Plan: Septic shock secondary to UTI. CT chest abdomen pelvis reviewed UA suggestive of UTI Urine urine cultures growing Gram-negative rods blood cultures are negative till now. Patient has received adequate amount of IV fluids and will hold further IV fluids at this time. Levophed weaned off. Wean off off hydrocortisone Conservative IV fluids due to history of CHF Continue IV Zosyn but discontinue vancomycin (2) Urinary tract infection: Qualifiers: Hematuria presence: without hematuria Urinary tract infection type: acute cystitis Qualified Code(s): N30.00 - Acute cystitis without hematuria Code(s): N39.0 - Urinary tract infection, site not specified Status: Resolved Assessment and Plan: See above (3) Chronic anticoagulation: Code(s): Z79.01 - supervisor intermediates (current) use of anticoagulants Status: Chronic Assessment and Plan: Continue Eliquis (4) COPD (chronic obstructive pulmonary disease): Qualifiers: COPD type: unspecified COPD Qualified Code(s): J44.9 - Chronic obstructive pulmonary disease, unspecified Code(s): J44.9 - Chronic obstructive pulmonary disease, unspecified Status: Chronic Assessment and Plan: Bronchodilator Decrease steroid dose (5) Chronic respiratory failure with hypoxia and hypercapnia: Code(s): J96.11 - Chronic respiratory failure with hypoxia; J96.12 - Chronic respiratory failure with hypercapnia Status: Chronic Assessment and Plan: On home oxygen (6) Chronic interstitial lung disease: Code(s): J84.9 - Interstitial pulmonary disease, unspecified Status: Acute Assessment and Plan: On home oxygen (7) Electrolyte abnormality: Code(s): E87.8 - Other disorders of electrolyte and fluid balance, not elsewhere classified Status: Resolved Assessment and Plan: Potassium phosphate and magnesium replacement ordered. Plan DVT prophylaxis -Eliquis Stress ulcer prophylaxis -protonix Nutrition -diet ordered Code Status -patient has advanced directive. She is DNR Removed femoral central venous catheter. Incentive spirometry, up in chair, Transfer out of ICU. Subjective Date/time seen: 07/20/25 Overnight events reviewed. Afebrile Off vasopressors since yesterday On 3 L nasal cannula. Off IV fluids now. Tolerating p.o. diet. Afebrile. Good urine output. Denies any new complaints. States pain in the joints which is chronic. Patient denies fever, chest pain, shortness of breath, cough, nausea vomiting, abdominal pain,, diarrhea, headache or constipation. All other systems were reviewed and were negative. Review of Systems Review of Systems: All systems reviewed & are unremarkable except as noted in HPI and below (HPI) Exam Narrative: General: Pt is alert awake and in NAD Lungs/Chest: Trachea central Clear BS B/L, No crackles or wheezing. Cardiac: RRR. Normal S1 S2. No murmurs Circulation: Pedal pulses are intact and symmetrical. Abdomen: Normal bowel sounds.. Soft. NT. ND. Extremities: No clubbing, cyanosis or edema. Warm central venous catheter in right femoral vein : PureWick catheter in place Neurologic: Follows commands. Moves all 4 extremities PERRL AO x1 Skin: No Rash Objective Data Vital Signs Vital Signs: Vital Signs - 24 hr 07/19/25 09:00 07/19/25 10:00 07/19/25 10:00 Temperature 37.2 C Pulse Rate 84 91 83 Respiratory Rate 16 17 Blood Pressure 101/58 L 102/60 102/60 Pulse Oximetry 98 99 Oxygen Delivery Oxygen Flow Rate Fraction of Inspired Oxygen 07/19/25 11:00 07/19/25 12:00 07/19/25 12:00 Temperature 37.2 C Pulse Rate 81 84 81 Respiratory Rate 22 H 22 H Blood Pressure 103/61 114/58 L Pulse Oximetry 99 99 Oxygen Delivery Oxygen Flow Rate Fraction of Inspired Oxygen 07/19/25 12:00 07/19/25 12:00 07/19/25 13:00 Temperature Pulse Rate 69 80 81 Respiratory Rate 15 20 Blood Pressure 114/58 L 92/56 L Pulse Oximetry 98 97 Oxygen Delivery Nasal Cannula Oxygen Flow Rate 3 Fraction of Inspired Oxygen 07/19/25 14:00 07/19/25 14:00 07/19/25 14:00 Temperature Pulse Rate 78 87 85 Respiratory Rate 18 Blood Pressure 108/55 L 108/55 L Pulse Oximetry 96 Oxygen Delivery Oxygen Flow Rate Fraction of Inspired Oxygen 07/19/25 14:10 07/19/25 14:18 07/19/25 15:00 Temperature Pulse Rate 64 65 87 Respiratory Rate 20 20 20 Blood Pressure 102/56 L Pulse Oximetry 97 Oxygen Delivery Oxygen Flow Rate Fraction of Inspired Oxygen 07/19/25 16:00 07/19/25 16:00 07/19/25 16:00 Temperature 37.1 C Pulse Rate 92 88 83 Respiratory Rate 16 16 Blood Pressure 122/66 Pulse Oximetry 97 98 Oxygen Delivery Nasal Cannula Oxygen Flow Rate 3 Fraction of Inspired Oxygen 07/19/25 16:00 07/19/25 17:00 07/19/25 17:00 Temperature Pulse Rate 88 88 88 Respiratory Rate 17 Blood Pressure 110/52 L 113/57 L 113/57 L Pulse Oximetry 98 Oxygen Delivery Oxygen Flow Rate Fraction of Inspired Oxygen 07/19/25 18:00 07/19/25 18:00 07/19/25 18:00 Temperature 36.8 C Pulse Rate 96 96 96 Respiratory Rate 20 Blood Pressure 132/64 132/64 Pulse Oximetry 98 Oxygen Delivery Oxygen Flow Rate Fraction of Inspired Oxygen 07/19/25 19:00 07/19/25 20:00 07/19/25 20:00 Temperature 36.8 C 36.8 C Pulse Rate 93 91 89 Respiratory Rate 18 17 Blood Pressure 114/69 122/58 L 135/60 Pulse Oximetry 97 96 Oxygen Delivery Oxygen Flow Rate Fraction of Inspired Oxygen 07/19/25 20:00 07/19/25 20:00 07/19/25 21:00 Temperature 36.9 C Pulse Rate 90 87 85 Respiratory Rate 18 16 Blood Pressure 110/52 L Pulse Oximetry 98 98 Oxygen Delivery Nasal Cannula Oxygen Flow Rate 3 Fraction of Inspired Oxygen 07/19/25 21:33 07/19/25 21:37 07/19/25 21:42 Temperature Pulse Rate 80 84 Respiratory Rate 16 16 Blood Pressure Pulse Oximetry 100 Oxygen Delivery Nasal Cannula Oxygen Flow Rate 3 Fraction of Inspired Oxygen 32 07/19/25 22:00 07/19/25 22:00 07/19/25 22:00 Temperature Pulse Rate 83 83 83 Respiratory Rate 21 H Blood Pressure 122/99 H 122/99 H Pulse Oximetry 100 Oxygen Delivery Oxygen Flow Rate Fraction of Inspired Oxygen 07/19/25 23:00 07/20/25 00:00 07/20/25 00:00 Temperature 36.8 C Pulse Rate 84 81 90 Respiratory Rate 13 20 Blood Pressure 110/52 L 115/61 115/61 Pulse Oximetry 95 98 Oxygen Delivery Oxygen Flow Rate Fraction of Inspired Oxygen 07/20/25 00:00 07/20/25 00:00 07/20/25 01:00 Temperature Pulse Rate 90 86 79 Respiratory Rate 18 15 Blood Pressure 109/53 L Pulse Oximetry 97 99 Oxygen Delivery Nasal Cannula Oxygen Flow Rate 3 Fraction of Inspired Oxygen 07/20/25 02:00 07/20/25 02:00 07/20/25 02:00 Temperature 36.9 C Pulse Rate 76 76 76 Respiratory Rate 17 Blood Pressure 112/57 L 112/57 L Pulse Oximetry 99 Oxygen Delivery Oxygen Flow Rate Fraction of Inspired Oxygen 07/20/25 03:00 07/20/25 03:30 07/20/25 03:37 Temperature Pulse Rate 73 77 79 Respiratory Rate 17 16 16 Blood Pressure 122/62 Pulse Oximetry 100 Oxygen Delivery Oxygen Flow Rate Fraction of Inspired Oxygen 07/20/25 04:00 07/20/25 04:00 07/20/25 04:00 Temperature Pulse Rate 76 76 84 Respiratory Rate 16 Blood Pressure 116/60 Pulse Oximetry 100 Oxygen Delivery Nasal Cannula Oxygen Flow Rate 3 Fraction of Inspired Oxygen 07/20/25 04:00 07/20/25 05:00 07/20/25 06:00 Temperature 36.9 C 36.8 C Pulse Rate 84 81 97 Respiratory Rate 16 19 27 H Blood Pressure 116/60 130/80 114/63 Pulse Oximetry 98 100 99 Oxygen Delivery Oxygen Flow Rate Fraction of Inspired Oxygen 07/20/25 06:00 07/20/25 06:00 07/20/25 07:00 Temperature Pulse Rate 74 82 82 Respiratory Rate 20 Blood Pressure 114/63 126/65 Pulse Oximetry 99 Oxygen Delivery Oxygen Flow Rate Fraction of Inspired Oxygen 07/20/25 08:00 07/20/25 08:12 Temperature 36.9 C Pulse Rate 77 Respiratory Rate 18 Blood Pressure 120/63 Pulse Oximetry 97 95 Oxygen Delivery Nasal Cannula Oxygen Flow Rate 3 Fraction of Inspired Oxygen Intake/Output Intake/Output: Intake & Output 07/17/25 07/18/25 07/19/25 07/20/25 23:59 23:59 23:59 23:59 Intake Total 2620.1 3220.7 1252.5 Output Total 1700 200 Balance 2620.1 1520.7 1052.5 Meds/Results Medications: Active Medications Generic Name Dose Route Start Last Admin Trade Name Freq PRN Reason Stop Dose Admin Acetaminophen 650 mg 07/18/25 22:54 07/20/25 00:06 Acetaminophen 325 Mg Tablet PO 650 mg Q4H PRN Administration Mild Pain (1-3) or Fever Hydrocodone Bitart/Acetaminophen 1 tab 07/19/25 04:02 07/20/25 05:34 Hydrocodone/Acetaminophen (*Crx) 5-325 Mg Tablet PO 1 tab TID PRN Administration pain 7-10 Albuterol/Ipratropium 3 ml 07/19/25 08:00 07/20/25 08:15 Ipratropium 0.5 Mg/Albuterol Sulfate 2.5 Mg (Base) Ampul.Neb 3 Ml INHALATION Not Given Q6HRT DOC Lipase/Protease/Amylase 4 cap 07/19/25 08:00 07/19/25 17:15 Lipase/Amylase/Protease 12,000 Units Cap PO 4 cap TIDWM DOC Administration Apixaban 2.5 mg 07/19/25 09:00 07/19/25 21:13 Apixaban 2.5 Mg Tablet PO 2.5 mg Q12HR DOC Administration Artificial Tears 1 drop 07/19/25 09:00 07/19/25 17:17 Artificial Tears Ophth Soln 15 Ml Bottle EACH EYE 1 drop BID DOC Administration Baclofen 10 mg 07/19/25 09:00 07/19/25 10:36 Baclofen 10 Mg Tablet PO Not Given On Hold: 07/19/25 09:08 Q12HR DOC Benzonatate 100 mg 07/19/25 04:02 Benzonatate 100 Mg Capsule PO TID PRN Cough Budesonide 0.5 mg 07/19/25 08:00 07/20/25 08:14 Budesonide Respule Neb 0.5 Mg/2 Ml Amp INHALATION Not Given Q12HRT DOC Bupropion HCl 75 mg 07/19/25 09:00 07/19/25 09:56 Bupropion Hcl 75 Mg Tablet PO 75 mg DAILY DOC Administration Ferrous Sulfate 325 mg 07/19/25 09:00 07/19/25 09:56 Ferrous Sulfate 325 Mg Tablet BY MOUTH 325 mg DAILY DOC Administration Fish Oil 1 gm 07/19/25 09:00 07/19/25 09:58 [place] 3 Polyunsat Fatty Acids 1 Gm Cap PO 1 gm DAILY DOC Administration Fluticasone Propionate 1 spray 07/19/25 09:00 07/19/25 21:14 Fluticasone Propionate 0.05% Na Spr 16 Gm Btl (*Bkc) NASAL 1 spray Q12HR DOC Administration Folic Acid 1 mg 07/19/25 09:00 07/19/25 09:56 Folic Acid 1 Mg Tablet PO 1 mg DAILY DOC Administration Guaifenesin 600 mg 07/19/25 09:00 07/19/25 21:14 Guaifenesin 12 Hr 600 Mg Tabcr PO 600 mg Q12HR DOC Administration Hydrocortisone Sodium Succinate 100 mg 07/20/25 09:00 Hydrocortisone Sodium Succinate 100 Mg/2 Ml Vial IV PUSH QAM DOC Piperacillin Sod/Tazobactam 50 mls @ 100 mls/hr 07/19/25 04:00 07/20/25 06:23 Sod 3.375 gm/ Sodium Chloride IVPB Infused Q6H DOC Infusion Magnesium Sulfate 2 gm in 50 mls @ 25 mls/hr 07/20/25 07:40 Magnesium Sulf 2 Gm/Water 50ml IVPB 07/20/25 09:39 ONCE ONE Lactobacillus Acidophilus 1 tablet 07/19/25 09:00 07/19/25 17:14 Acidophilus/Bulgaricus Chewable Tablet PO 1 tablet BID DOC Administration Loperamide HCl 2 mg 07/19/25 04:02 Loperamide Hcl 2 Mg Capsule PO Q12H PRN Diarrhea Loratadine 10 mg 07/19/25 21:00 07/19/25 21:14 Loratadine 10 Mg Tablet PO 10 mg HS DOC Administration Ondansetron HCl 4 mg 07/18/25 22:54 Ondansetron Inj 4 Mg/2 Ml Vial IV PUSH Q4H PRN Nausea Pantoprazole Sodium 40 mg 07/20/25 09:00 Pantoprazole 40 Mg Tablet PO QAM DOC Pregabalin 100 mg 07/19/25 06:00 07/20/25 05:01 Pregabalin (*Crx) 50 Mg Capsule PO 100 mg Q8HR DOC Administration Sodium Chloride 10 ml 07/19/25 06:00 07/20/25 05:01 Central Line Flush IV PUSH 10 ml Q8HR DOC Administration Sodium Chloride 20 ml 07/18/25 22:56 Central Line Flush IV PUSH PRN PRN after blood draws Umeclidinium/Vilanterol 1 puff 07/19/25 08:00 Umeclidinium/Vilanterol 62.5-25 Mcg Ellipta INHALATION On Hold: 07/19/25 08:00 DAILYRT DOC Comment: HOLD WHILE THE PATIENT IS ON SCHEDULED DUONEB Vitamin D 25 mcg 07/19/25 09:00 07/19/25 09:57 Cholecalciferol (Vitamin D3) 25 Mcg (1,000 Units) Tablet PO 25 mcg DAILY DOC Administration Radiology Results: ITS Impressions Chest X-Ray 07/18/25 20:23 IMPRESSION: Bilateral infiltrates. Chest/Abdomen/Pelvis CT 07/18/25 21:09 IMPRESSION: No acute cardiopulmonary process. Fibrotic changes are present bilaterally. Enlarged paraesophageal lymph nodes are noted. CT abdomen and pelvis with contrast: The liver parenchyma is unremarkable. There are dilatation of the left hepatic biliary ducts and common bile duct. The gallbladder is unremarkable. The pancreas and spleen are normal in appearance. 1.3 cm right adrenal nodule is noted. Left adrenal glands are unremarkable. The kidneys demonstrate symmetric uptake and excretion of contrast. Benign renal cysts are noted. There is no solid mass. There is no hydronephrosis. Evaluation of the stomach and bowel loops are limited due to lack of oral contrast. The appendix is not visualized however no secondary signs of appendicitis are identified. There is segmental thickening of the proximal sigmoid colon seen on axial image 198. Although this may be related to postinflammatory changes. Diverticulosis. Tumor cannot be excluded. If c linically indicated follow-up colonoscopy. There is colonic diverticulosis without evidence of acute diverticulitis. The bladder and rectum are normal. No free intraperitoneal fluid or air is evident. There is no significant retroperitoneal lymphadenopathy. The aorta, visceral vessels and renal arteries demonstrate normal caliber and patency. The lower thoracic and lumbar vertebrae are in normal alignment. IMPRESSION: Focal short segment of thickening of the sigmoid colon. Follow-up colonoscopy is recommended. Colonic diverticulosis without evidence of acute diverticulitis. Indeterminate 1.3 cm right adrenal nodule. This can be further evaluated with CT using adrenal protocol. All CT scans at this facility are performed using low dose modulation techniques as appropriate to perform exam including the following: automated exposure control; use of iterative reconstruction technique; adjustment of the mA and/or kV according to patient size (this includes techniques or standardized protocols for targeted exams where dose is matched to indication/reason for exam) Labs Labs: Laboratory Results - last 24 hr 07/20/25 05:05 WBC 19.1 H RBC 2.61 L Hgb 8.1 L Hct 25.9 L MCV 99.2 MCH 31.0 MCHC 31.3 L RDW 16.1 H Plt Count 217 MPV 11.9 H Sodium 137 Potassium 3.7 Chloride 103 Carbon Dioxide 30 Anion Gap 4 BUN 15 Creatinine 0.77 Estim Creat Clear Calc 50 Estimated GFR > 60 Glucose 126 H Calcium 7.8 L Phosphorus 3.3 Magnesium 1.4 L Total Bilirubin < 0.1 L AST 34 ALT 20 Alkaline Phosphatase 56 Total Protein 5.9 L Albumin 3.1 L
[2025-07-20] MEDS: LIPASE/AMYLASE/PROTEASE 12,000 UNITS CAP 4 CAP PO ×3 (09:00→16:49)
[2025-07-20] MEDS: FERROUS SULFATE 325 MG TABLET BY MOUTH (09:00)
[2025-07-20] MEDS: OMEGA 3 POLYUNSAT FATTY ACIDS 1 GM CAP PO (09:00)
[2025-07-20] MEDS: guaiFENesin 12 HR 600 MG TABCR PO ×2 (09:00→21:11)
[2025-07-20] MEDS: CHOLECALCIFEROL (VITAMIN D3) 25 MCG (1,000 UNITS) TABLET PO (09:00)
[2025-07-20] MEDS: APIXABAN 2.5 MG TABLET PO ×2 (09:00→21:11)
[2025-07-20] MEDS: FOLIC ACID 1 MG TABLET PO (09:01)
[2025-07-20] MEDS: PANTOPRAZOLE 40 MG TABLET PO (09:01)
[2025-07-20] MEDS: ARTIFICIAL TEARS OPHTH SOLN 15 ML BOTTLE 1 DROP EACH EYE ×2 (09:02→16:51)
[2025-07-20] MEDS: POTASSIUM BICARBONATE 25 MEQ TABEF 50 MEQ PO (09:02)
[2025-07-20] MEDS: MAGNESIUM SULF 2 GM/WATER 50ML 2 GM/50 ML BAG IVPB (09:03)
[2025-07-20] MEDS: CALCIUM GLUC 2,000 MG/NS 100ML 2,000 MG/100 ML BAG 100 MG IVPB (09:04)
[2025-07-20] MEDS: MORPHINE SULFATE (*CRX) 4 MG/ML INJ 2 MG IV PUSH (15:52)
--- NOTE | 2025-07-20 16:36 | PC.NURSE ---
This patient, Gabbi Champagne, was transferred to [facility] on 07/20/25 at 1615. All personal belongings sent with patient. Report given to JENNIFER Owusu. Appropriate documentation sent with patient. Upon this RN returning with her new bed from [facility], Gabbi became tearful and tachypneic. Her wheezing has been persistent since this AM when she refused all breathing treatments due to their side effects. When laying flat she thought she was going to and was difficult to console, RT notified and albuterol neb started. Dr. Kaplan informed of patient condition and symptoms, and he recommended 2 mg of morphine IVP x1 (Verified allergy with patient and daughter who was at the bedside what her reaction previously was with morphine, they stated it was never a true allergy it just made her have nightmares and hallucinate a little when she got it a few times No reaction involving hives, swelling, itching, or anaphylaxis confirmed.) Updated receiving JENNIFER Owusu of developments. Pt was settled into [facility] asymptomatic and comfortable and 3 med surg staff Sarita, notified of her arrival.
[2025-07-20] MEDS: ACIDOPHILUS/BULGARICUS CHEWABLE TABLET 1 TABLET PO (16:49)
[2025-07-20] MEDS: BUDESONIDE RESPULE NEB 0.5 MG/2 ML AMP INHALATION (20:37)
[2025-07-20] MEDS: BACLOFEN 10 MG TABLET PO (21:10)
[2025-07-20] MEDS: LORATADINE 10 MG TABLET PO (21:10)
[2025-07-20] MEDS: DICLOFENAC SODIUM 1% 100 GM GEL (*BKC) 1 APPLIC TOPICAL (21:12)
[2025-07-20] MEDS: FLUTICASONE PROPIONATE 0.05% NA SPR 16 GM BTL (*BKC) 1 SPRAY NASAL (21:12)
[2025-07-21] VITALS (10 sets, daily range): BP systolic 131–160; BP diastolic 76–80; PULSE 79–91; RESP 20; TEMP 36.7–37.1; O2SAT 94–95
[2025-07-21] MEDS: IPRATROPIUM 0.5 MG/ALBUTEROL SULFATE 2.5 MG (BASE) AMPUL.NEB 3 ML INHALATION ×4 (01:01→20:34)
--- NOTE | 2025-07-21 01:11 | ECG_ITS ---
Test Date: 2025-07-21 01:25:59 Measurements Intervals [place] Rate: 91 P: 60 [place]: 140 QRS: 44 QRSD: 94 T: 38 QT: 351 QTc: 433 Interpretive Statements SINUS RHYTHM WITH ATRIAL AND VENTRICULAR PREMATURE COMPLEXES INCOMPLETE RIGHT BUNDLE BRANCH BLOCK LOW QRS VOLTAGE IN PRECORDIAL LEADS BASELINE ARTIFACT- III, V4-V6 BORDERLINE ECG Compared to ECG 06/11/2025 13:23:56 No significant changes Electronically Signed On 07-21-2025 06:16:44 CDT by Kole Carey D.O.
[2025-07-21 02:16] LABS: Hematocrit 29.7 % (37.0-47.0); Hemoglobin 9.4 g/dL (12.0-15.0); Mean Corpuscular HGB Conc 31.6 g/dl (32-36); Mean Corpuscular Hemoglobin 31.1 pg (26-34); Mean Corpuscular Volume 98.3 fl (80-100); Platelet Count Result 265 k/mm3 (150-375); Red Blood Count 3.02 M/mm3 (4.2-5.4); White Blood Count 20.0 K/mm3 (4.5-10.0)
[2025-07-21] MEDS: FUROSEMIDE INJ 40 MG/4 ML VIAL IV PUSH (02:19)
[2025-07-21 02:29] LABS: Alanine Aminotransferase 21 U/L (6-35); Albumin Level 3.7 g/dL (3.5-5.1); Alkaline Phosphatase 57 U/L (38-126); Anion Gap 6 mmol/L (4-12); Aspartate Amino Transferase 30 U/L (14-36); Bilirubin,Total 0.3 mg/dL (0.2-1.3); Blood Urea Nitrogen 13 mg/dL (7-17); Calcium 9.0 mg/dL (8.4-10.2); Carbon Dioxide 35 mmol/L (22-30); Chloride 98 mmol/L (98-107); Estimated CRCL calculation 54 ml/min; Estimated Glomerular Filt Rate > 60; Glucose 107 mg/dL (65-110); Magnesium 1.9 mg/dL (1.6-2.3); Potassium 3.6 mmol/L (3.4-5.0); Sodium 139 mmol/L (137-145); Total Protein 7.0 g/dL (6.3-8.2)
[2025-07-21 02:41] LABS: NT Pro B Type Natriuretic Pept 8080 pg/mL (19.9-100)
[2025-07-21] MEDS: HYDROcodone/acetaminophen (*CRX) 5-325 MG TABLET 1 TAB PO ×3 (04:09→21:47)
[2025-07-21] MEDS: PIPERACILLIN/TAZOBACTAM SOD 3.375 GM in SODIUM CHLORIDE 0.9% IV 50 ML 100 ML IVPB ×4 (04:10→21:49)
[2025-07-21] MEDS: DICLOFENAC SODIUM 1% 100 GM GEL (*BKC) 1 APPLIC TOPICAL ×3 (04:10→21:53)
--- NOTE | 2025-07-21 05:42 | P.PNCROSS_ITS ---
Event Note Event Note Event Note: Patient is wheezing with shortness of breath complaint, with associated anxiety. She presented with UTI with septic shock and received fluids. She was fluid positive. She had crackles in her lungs coarse breath sounds and an audible wheeze. She was given a breathing treatment without much improvement. Chest x- ray obtained, final radiology interpretation is pending. Pulmonary edema evident. Patient given Lasix 40 mg IV x1, Solu-Medrol, another breathing treatment. She had large urine output. Symptomatology and wheezing have improved. Daily weights, strict intake/output. Continue CHF management
[2025-07-21] MEDS: PREGABALIN (*CRX) 50 MG CAPSULE 100 MG PO ×3 (06:11→21:49)
[2025-07-21] MEDS: BUDESONIDE RESPULE NEB 0.5 MG/2 ML AMP INHALATION ×2 (08:14→20:34)
[2025-07-21] MEDS: HYDROCORTISONE SODIUM SUCCINATE 100 MG/2 ML VIAL IV PUSH (09:04)
[2025-07-21] MEDS: ACIDOPHILUS/BULGARICUS CHEWABLE TABLET 1 TABLET PO ×2 (09:04→17:19)
[2025-07-21] MEDS: FOLIC ACID 1 MG TABLET PO (09:04)
[2025-07-21] MEDS: FERROUS SULFATE 325 MG TABLET BY MOUTH (09:04)
[2025-07-21] MEDS: PANTOPRAZOLE 40 MG TABLET PO (09:04)
[2025-07-21] MEDS: LIPASE/AMYLASE/PROTEASE 12,000 UNITS CAP 4 CAP PO ×3 (09:04→17:19)
[2025-07-21] MEDS: guaiFENesin 12 HR 600 MG TABCR PO ×2 (09:04→21:47)
[2025-07-21] MEDS: OMEGA 3 POLYUNSAT FATTY ACIDS 1 GM CAP PO (09:04)
[2025-07-21] MEDS: APIXABAN 2.5 MG TABLET PO ×2 (09:04→21:47)
[2025-07-21] MEDS: CHOLECALCIFEROL (VITAMIN D3) 25 MCG (1,000 UNITS) TABLET PO (09:04)
[2025-07-21] MEDS: ARTIFICIAL TEARS OPHTH SOLN 15 ML BOTTLE 1 DROP EACH EYE (09:05)
[2025-07-21] MEDS: FLUTICASONE PROPIONATE 0.05% NA SPR 16 GM BTL (*BKC) 1 SPRAY NASAL ×2 (09:05→21:49)
--- NOTE | 2025-07-21 16:50 | PM.IMPN ---
Progress Note: A&P Assessment and Plan (1) Septic shock: Code(s): A41.9 - Sepsis, unspecified organism; R65.21 - Severe sepsis with septic shock Status: Acute Assessment and Plan: Septic shock secondary to UTI. CT chest abdomen pelvis reviewed UA suggestive of UTI Urine urine cultures growing Gram-negative rods blood cultures are negative till now. Patient has received adequate amount of IV fluids and will hold further IV fluids at this time. Levophed weaned off. 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 Status: Chronic Assessment and Plan: Continue Eliquis (4) COPD (chronic obstructive pulmonary disease): Qualifiers: COPD type: unspecified COPD Qualified Code(s): J44.9 - Chronic obstructive pulmonary disease, unspecified Code(s): J44.9 - Chronic obstructive pulmonary disease, unspecified Status: Chronic Assessment and Plan: Bronchodilator Decrease steroid dose (5) Chronic respiratory failure with hypoxia and hypercapnia: Code(s): J96.11 - Chronic respiratory failure with hypoxia; J96.12 - Chronic respiratory failure with hypercapnia Status: Chronic Assessment and Plan: On home oxygen (6) Chronic interstitial lung disease: Code(s): J84.9 - Interstitial pulmonary disease, unspecified Status: Acute Assessment and Plan: On home oxygen (7) Electrolyte abnormality: Code(s): E87.8 - Other disorders of electrolyte and fluid balance, not elsewhere classified Status: Resolved Assessment and Plan: > monitor Plan DVT prophylaxis -Eliquis Stress ulcer prophylaxis -protonix Nutrition -diet ordered Code Status -patient has advanced directive. She is DNR Subjective Date/time seen: 07/21/25 16:50 Interval history: Overnight events noted. Feels better. Remains afebrile. No nausea vomiting. Review of Systems Review of Systems: All systems reviewed & are unremarkable except as noted in HPI and below (HPI) Exam Narrative: General: Pt is alert awake and in NAD Lungs/Chest: Trachea central Clear BS B/L, No crackles or wheezing. Cardiac: RRR. Normal S1 S2. No murmurs Circulation: Pedal pulses are intact and symmetrical. Abdomen: Normal bowel sounds.. Soft. NT. ND. Extremities: No clubbing, cyanosis or edema. : PureWick catheter in place Neurologic: Follows commands. Moves all 4 extremities Skin: No Rash Objective Data Vital Signs Vital Signs: Vital Signs - 24 hr 07/20/25 19:55 07/20/25 20:00 07/20/25 20:38 Temperature 98.6 F Pulse Rate 80 79 Respiratory Rate 22 H 20 Blood Pressure 148/67 H Pulse Oximetry 95 93 Oxygen Delivery Nasal Cannula Oxygen Flow Rate 2 Fraction of Inspired Oxygen 07/20/25 20:45 07/20/25 20:48 07/21/25 01:01 Temperature Pulse Rate 79 81 86 Respiratory Rate 20 20 20 Blood Pressure Pulse Oximetry 94 Oxygen Delivery Nasal Cannula Oxygen Flow Rate 3 Fraction of Inspired Oxygen 32 07/21/25 01:16 07/21/25 03:03 07/21/25 08:00 Temperature 98.8 F Pulse Rate 85 88 Respiratory Rate 20 20 Blood Pressure 160/80 H Pulse Oximetry 94 95 Oxygen Delivery Nasal Cannula Oxygen Flow Rate 2 Fraction of Inspired Oxygen 07/21/25 08:15 07/21/25 14:00 Temperature 98.1 F Pulse Rate 84 91 Respiratory Rate 20 20 Blood Pressure 131/79 Pulse Oximetry 95 Oxygen Delivery Oxygen Flow Rate Fraction of Inspired Oxygen Intake/Output Intake/Output: Intake & Output 07/18/25 07/19/25 07/20/25 07/21/25 23:59 23:59 23:59 23:59 Intake Total 2620.1 3220.7 1522.5 796 Output Total 1700 3050 5675 Balance 2620.1 1520.7 -1527.5 -4879 Meds/Results Medications: Active Medications Generic Name Dose Route Start Last Admin Trade Name Freq PRN Reason Stop Dose Admin Acetaminophen 650 mg 07/18/25 22:54 07/20/25 00:06 Acetaminophen 325 Mg Tablet PO 650 mg Q4H PRN Administration Mild Pain (1-3) or Fever Hydrocodone Bitart/Acetaminophen 1 tab 07/19/25 04:02 07/21/25 12:05 Hydrocodone/Acetaminophen (*Crx) 5-325 Mg Tablet PO 1 tab TID PRN Administration pain 7-10 Albuterol/Ipratropium 3 ml 07/19/25 08:00 07/21/25 13:58 Ipratropium 0.5 Mg/Albuterol Sulfate 2.5 Mg (Base) Ampul.Neb 3 Ml INHALATION 3 ml Q6HRT DOC Administration Lipase/Protease/Amylase 4 cap 07/19/25 08:00 07/21/25 12:06 Lipase/Amylase/Protease 12,000 Units Cap PO 4 cap TIDWM DOC Administration Apixaban 2.5 mg 07/19/25 09:00 07/21/25 09:04 Apixaban 2.5 Mg Tablet PO 2.5 mg Q12HR DOC Administration Artificial Tears 1 drop 07/19/25 09:00 07/21/25 09:05 Artificial Tears Ophth Soln 15 Ml Bottle EACH EYE 1 drop BID DOC Administration Baclofen 10 mg 07/19/25 09:00 07/19/25 10:36 Baclofen 10 Mg Tablet PO Not Given On Hold: 07/19/25 09:08 Q12HR [facility] Baclofen 10 mg 07/20/25 20:19 07/20/25 21:10 Baclofen 10 Mg Tablet PO 10 mg Q6H PRN Administration moderate pain 4-6 Benzonatate 100 mg 07/19/25 04:02 Benzonatate 100 Mg Capsule PO TID PRN Cough Budesonide 0.5 mg 07/19/25 08:00 07/21/25 08:14 Budesonide Respule Neb 0.5 Mg/2 Ml Amp INHALATION 0.5 mg Q12HRT DOC Administration Bupropion HCl 75 mg 07/19/25 09:00 07/21/25 09:04 Bupropion Hcl 75 Mg Tablet PO 75 mg DAILY DOC Administration Diclofenac Sodium 1 applic 07/20/25 20:20 07/21/25 12:08 Diclofenac Sodium 1% 100 Gm Gel (*Bkc) TOPICAL 1 applic QID PRN Administration Pain Ferrous Sulfate 325 mg 07/19/25 09:00 07/21/25 09:04 Ferrous Sulfate 325 Mg Tablet BY MOUTH 325 mg DAILY DOC Administration Fish Oil 1 gm 07/19/25 09:00 07/21/25 09:04 [place] 3 Polyunsat Fatty Acids 1 Gm Cap PO 1 gm DAILY DOC Administration Fluticasone Propionate 1 spray 07/19/25 09:00 07/21/25 09:05 Fluticasone Propionate 0.05% Na Spr 16 Gm Btl (*Bkc) NASAL 1 spray Q12HR DOC Administration Folic Acid 1 mg 07/19/25 09:00 07/21/25 09:04 Folic Acid 1 Mg Tablet PO 1 mg DAILY DOC Administration Guaifenesin 600 mg 07/19/25 09:00 07/21/25 09:04 Guaifenesin 12 Hr 600 Mg Tabcr PO 600 mg Q12HR DOC Administration Hydrocortisone Sodium Succinate 100 mg 07/20/25 09:00 07/21/25 09:04 Hydrocortisone Sodium Succinate 100 Mg/2 Ml Vial IV PUSH 100 mg QAM DOC Administration Piperacillin Sod/Tazobactam 50 mls @ 100 mls/hr 07/19/25 04:00 07/21/25 09:04 Sod 3.375 gm/ Sodium Chloride IVPB 100 mls/hr Q6H DOC Administration Lactobacillus Acidophilus 1 tablet 07/19/25 09:00 07/21/25 09:04 Acidophilus/Bulgaricus Chewable Tablet PO 1 tablet BID DOC Administration Loperamide HCl 2 mg 07/19/25 04:02 Loperamide Hcl 2 Mg Capsule PO Q12H PRN Diarrhea Loratadine 10 mg 07/19/25 21:00 07/20/25 21:10 Loratadine 10 Mg Tablet PO 10 mg HS DOC Administration Miscellaneous Information 0 each 07/20/25 00:01 Diclofenac Add Site Of Use XX 08/19/25 00:00 CLARIFY DOC Ondansetron HCl 4 mg 07/18/25 22:54 Ondansetron Inj 4 Mg/2 Ml Vial IV PUSH Q4H PRN Nausea Pantoprazole Sodium 40 mg 07/20/25 09:00 07/21/25 09:04 Pantoprazole 40 Mg Tablet PO 40 mg QAM DOC Administration Pregabalin 100 mg 07/19/25 06:00 07/21/25 15:00 Pregabalin (*Crx) 50 Mg Capsule PO 100 mg Q8HR DOC Administration Sodium Chloride 20 ml 07/18/25 22:56 Central Line Flush IV PUSH PRN PRN after blood draws Umeclidinium/Vilanterol 1 puff 07/19/25 08:00 Umeclidinium/Vilanterol 62.5-25 Mcg Ellipta INHALATION On Hold: 07/19/25 08:00 DAILYRT DOC Comment: HOLD WHILE THE PATIENT IS ON SCHEDULED DUONEB Vitamin D 25 mcg 07/19/25 09:00 07/21/25 09:04 Cholecalciferol (Vitamin D3) 25 Mcg (1,000 Units) Tablet PO 25 mcg DAILY DOC Administration Radiology Results: ITS Impressions Chest/Abdomen/Pelvis CT 07/18/25 21:09 IMPRESSION: No acute cardiopulmonary process. Fibrotic changes are present bilaterally. Enlarged paraesophageal lymph nodes are noted. CT abdomen and pelvis with contrast: The liver parenchyma is unremarkable. There are dilatation of the left hepatic biliary ducts and common bile duct. The gallbladder is unremarkable. The pancreas and spleen are normal in appearance. 1.3 cm right adrenal nodule is noted. Left adrenal glands are unremarkable. The kidneys demonstrate symmetric uptake and excretion of contrast. Benign renal cysts are noted. There is no solid mass. There is no hydronephrosis. Evaluation of the stomach and bowel loops are limited due to lack of oral contrast. The appendix is not visualized however no secondary signs of appendicitis are identified. There is segmental thickening of the proximal sigmoid colon seen on axial image 198. Although this may be related to postinflammatory changes. Diverticulosis. Tumor cannot be excluded. If clinically indicated follow-up colonoscopy. There is colonic diverticulosis without evidence of acute diverticulitis. The bladder and rectum are normal. No free intraperitoneal fluid or air is evident. There is no significant retroperitoneal lymphadenopathy. The aorta, visceral vessels and renal arteries demonstrate normal caliber and patency. The lower thoracic and lumbar vertebrae are in normal alignment. IMPRESSION: Focal short segment of thickening of the sigmoid colon. Follow-up colonoscopy is recommended. Colonic diverticulosis without evidence of acute diverticulitis. Indeterminate 1.3 cm right adrenal nodule. This can be further evaluated with CT using adrenal protocol. All CT scans at this facility are performed using low dose modulation techniques as appropriate to perform exam including the following: automated exposure control; use of iterative reconstruction technique; adjustment of the mA and/or kV according to patient size (this includes techniques or standardized protocols for targeted exams where dose is matched to indication/reason for exam) Chest X-Ray 07/21/25 07:35 IMPRESSION: 1. Worsening multifocal airspace disease. 2. Probable developing interstitial pulmonary edema. 3. Pulmonary fibrosis. Labs Labs: Laboratory Results - last 24 hr 07/21/25 07/21/25 02:05 02:05 WBC 20.0 H RBC 3.02 L Hgb 9.4 L Hct 29.7 L MCV 98.3 MCH 31.1 MCHC 31.6 L RDW 16.2 H Plt Count 265 MPV 11.6 H Sodium 139 Potassium 3.6 Chloride 98 Carbon Dioxide 35 H Anion Gap 6 BUN 13 Creatinine 0.70 Estim Creat Clear Calc 54 Estimated GFR > 60 Glucose 107 Calcium 9.0 Phosphorus 3.2 Magnesium 1.9 Total Bilirubin 0.3 AST 30 ALT 21 Alkaline Phosphatase 57 NT-Pro-B Natriuret Pep 8080 H Cancelled Total Protein 7.0 Albumin 3.7
[2025-07-21] MEDS: ATORVASTATIN 40 MG TABLET PO (17:21)
[2025-07-21] MEDS: LORATADINE 10 MG TABLET PO (21:48)
[2025-07-22] VITALS (9 sets, daily range): BP systolic 130–158; BP diastolic 67–87; PULSE 63–87; RESP 18–20; TEMP 36–36.6; O2SAT 94–99
[2025-07-22] MEDS: BACLOFEN 10 MG TABLET PO ×2 (03:28→19:31)
[2025-07-22] MEDS: PIPERACILLIN/TAZOBACTAM SOD 3.375 GM in SODIUM CHLORIDE 0.9% IV 50 ML 100 ML IVPB ×4 (03:29→21:04)
[2025-07-22] MEDS: PREGABALIN (*CRX) 50 MG CAPSULE 100 MG PO ×3 (06:09→21:04)
[2025-07-22] MEDS: HYDROcodone/acetaminophen (*CRX) 5-325 MG TABLET 1 TAB PO ×2 (06:11→16:18)
[2025-07-22 06:28] LABS: Hematocrit 31.2 % (37.0-47.0); Hemoglobin 10.0 g/dL (12.0-15.0); Mean Corpuscular HGB Conc 32.1 g/dl (32-36); Mean Corpuscular Hemoglobin 31.0 pg (26-34); Mean Corpuscular Volume 96.6 fl (80-100); Platelet Count Result 281 k/mm3 (150-375); Red Blood Count 3.23 M/mm3 (4.2-5.4); White Blood Count 12.3 K/mm3 (4.5-10.0)
[2025-07-22 06:46] LABS: Alanine Aminotransferase 16 U/L (6-35); Albumin Level 3.5 g/dL (3.5-5.1); Alkaline Phosphatase 54 U/L (38-126); Anion Gap 6 mmol/L (4-12); Aspartate Amino Transferase 27 U/L (14-36); Bilirubin,Total 0.4 mg/dL (0.2-1.3); Blood Urea Nitrogen 22 mg/dL (7-17); Calcium 8.4 mg/dL (8.4-10.2); Carbon Dioxide 39 mmol/L (22-30); Chloride 93 mmol/L (98-107); Estimated CRCL calculation 44 ml/min; Estimated Glomerular Filt Rate > 60; Glucose 105 mg/dL (65-110); Magnesium 1.9 mg/dL (1.6-2.3); Potassium 3.0 mmol/L (3.4-5.0); Sodium 138 mmol/L (137-145)
[2025-07-22 06:59] LABS: Total Protein 6.7 g/dL (6.3-8.2)
[2025-07-22] MEDS: BUDESONIDE RESPULE NEB 0.5 MG/2 ML AMP INHALATION ×2 (09:02→21:04)
[2025-07-22] MEDS: IPRATROPIUM 0.5 MG/ALBUTEROL SULFATE 2.5 MG (BASE) AMPUL.NEB 3 ML INHALATION ×3 (09:02→21:05)
[2025-07-22] MEDS: LIPASE/AMYLASE/PROTEASE 12,000 UNITS CAP 4 CAP PO ×3 (09:08→16:15)
[2025-07-22] MEDS: POTASSIUM CHLORIDE 20 MEQ ER TABLET 40 MEQ PO (09:08)
[2025-07-22] MEDS: APIXABAN 2.5 MG TABLET PO ×2 (09:09→21:04)
[2025-07-22] MEDS: PANTOPRAZOLE 40 MG TABLET PO (09:09)
[2025-07-22] MEDS: ACIDOPHILUS/BULGARICUS CHEWABLE TABLET 1 TABLET PO ×2 (09:09→16:15)
[2025-07-22] MEDS: FUROSEMIDE 40 MG TABLET PO (09:09)
[2025-07-22] MEDS: CHOLECALCIFEROL (VITAMIN D3) 25 MCG (1,000 UNITS) TABLET PO (09:09)
[2025-07-22] MEDS: OMEGA 3 POLYUNSAT FATTY ACIDS 1 GM CAP PO (09:09)
[2025-07-22] MEDS: FERROUS SULFATE 325 MG TABLET BY MOUTH (09:09)
[2025-07-22] MEDS: FOLIC ACID 1 MG TABLET PO (09:09)
[2025-07-22] MEDS: guaiFENesin 12 HR 600 MG TABCR PO ×2 (09:09→21:04)
[2025-07-22] MEDS: FLUTICASONE PROPIONATE 0.05% NA SPR 16 GM BTL (*BKC) 1 SPRAY NASAL (09:12)
[2025-07-22] MEDS: ARTIFICIAL TEARS OPHTH SOLN 15 ML BOTTLE 1 DROP EACH EYE ×2 (09:12→16:18)
[2025-07-22] MEDS: ONDANSETRON INJ 4 MG/2 ML VIAL IV PUSH (10:34)
--- NOTE | 2025-07-22 13:58 | PM.IMPN ---
Progress Note: A&P Assessment and Plan (1) Septic shock: Code(s): A41.9 - Sepsis, unspecified organism; R65.21 - Severe sepsis with septic shock Status: Acute Assessment and Plan: Septic shock secondary to UTI. CT chest abdomen pelvis reviewed UA suggestive of UTI Urine urine cultures growing Gram-negative rods blood cultures are negative till now. Patient has received adequate amount of IV fluids and will hold further IV fluids at this time. Levophed weaned off. 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 Status: Chronic Assessment and Plan: Continue Eliquis (4) COPD (chronic obstructive pulmonary disease): Qualifiers: COPD type: unspecified COPD Qualified Code(s): J44.9 - Chronic obstructive pulmonary disease, unspecified Code(s): J44.9 - Chronic obstructive pulmonary disease, unspecified Status: Chronic Assessment and Plan: Bronchodilator Decrease steroid dose (5) Chronic respiratory failure with hypoxia and hypercapnia: Code(s): J96.11 - Chronic respiratory failure with hypoxia; J96.12 - Chronic respiratory failure with hypercapnia Status: Chronic Assessment and Plan: On home oxygen (6) Chronic interstitial lung disease: Code(s): J84.9 - Interstitial pulmonary disease, unspecified Status: Acute Assessment and Plan: On home oxygen (7) Electrolyte abnormality: Code(s): E87.8 - Other disorders of electrolyte and fluid balance, not elsewhere classified Status: Resolved Assessment and Plan: > monitor Plan DVT prophylaxis -Eliquis Stress ulcer prophylaxis -protonix Nutrition -diet ordered Code Status -patient has advanced directive. She is DNR Subjective Date/time seen: 07/22/25 13:58 Interval history: No Overnight events noted. Had few loose stools. No chest pain shortness of breath Review of Systems Review of Systems: All systems reviewed & are unremarkable except as noted in HPI and below (HPI) Exam Narrative: General: Pt is alert awake and in NAD Lungs/Chest: Trachea central Clear BS B/L, No crackles or wheezing. Cardiac: RRR. Normal S1 S2. No murmurs Circulation: Pedal pulses are intact and symmetrical. Abdomen: Normal bowel sounds.. Soft. NT. ND. Extremities: No clubbing, cyanosis or edema. : PureWick catheter in place Neurologic: Follows commands. Moves all 4 extremities Skin: No Rash Objective Data Vital Signs Vital Signs: Vital Signs - 24 hr 07/21/25 14:00 07/21/25 19:33 07/21/25 20:00 Temperature 98.1 F 98.8 F Pulse Rate 91 79 Respiratory Rate 20 20 Blood Pressure 131/79 155/76 H Pulse Oximetry 95 94 94 Oxygen Delivery Nasal Cannula Oxygen Flow Rate 2 07/21/25 20:34 07/21/25 20:46 07/22/25 03:07 Temperature 97.6 F Pulse Rate 80 84 65 Respiratory Rate 20 20 Blood Pressure 158/87 H Pulse Oximetry 99 Oxygen Delivery Oxygen Flow Rate 07/22/25 08:00 07/22/25 09:03 07/22/25 09:03 Temperature Pulse Rate 73 73 Respiratory Rate 20 20 Blood Pressure Pulse Oximetry 95 96 Oxygen Delivery Nasal Cannula Nasal Cannula Oxygen Flow Rate 3 3 07/22/25 09:13 Temperature Pulse Rate 76 Respiratory Rate 20 Blood Pressure Pulse Oximetry Oxygen Delivery Oxygen Flow Rate Intake/Output Intake/Output: Intake & Output 07/19/25 07/20/25 07/21/25 07/22/25 23:59 23:59 23:59 23:59 Intake Total 3220.7 1522.5 1186 866 Output Total 1700 1860 5775 1800 Balance 1520.7 -1527.5 -4589 -934 Meds/Results Medications: Active Medications Generic Name Dose Route Start Last Admin Trade Name Freq PRN Reason Stop Dose Admin Acetaminophen 650 mg 07/18/25 22:54 07/20/25 00:06 Acetaminophen 325 Mg Tablet PO 650 mg Q4H PRN Administration Mild Pain (1-3) or Fever Hydrocodone Bitart/Acetaminophen 1 tab 07/19/25 04:02 07/22/25 06:11 Hydrocodone/Acetaminophen (*Crx) 5-325 Mg Tablet PO 1 tab TID PRN Administration pain 7-10 Albuterol/Ipratropium 3 ml 07/19/25 08:00 07/22/25 09:05 Ipratropium 0.5 Mg/Albuterol Sulfate 2.5 Mg (Base) Ampul.Neb 3 Ml INHALATION Not Given Q6HRT [facility] Lipase/Protease/Amylase 4 cap 07/19/25 08:00 07/22/25 12:43 Lipase/Amylase/Protease 12,000 Units Cap PO 4 cap TIDWM DOC Administration Apixaban 2.5 mg 07/19/25 09:00 07/22/25 09:09 Apixaban 2.5 Mg Tablet PO 2.5 mg Q12HR DOC Administration Artificial Tears 1 drop 07/19/25 09:00 07/22/25 09:12 Artificial Tears Ophth Soln 15 Ml Bottle EACH EYE 1 drop BID DOC Administration Atorvastatin Calcium 40 mg 07/21/25 18:00 07/21/25 17:21 Atorvastatin 40 Mg Tablet PO 40 mg QPM DOC Administration Baclofen 10 mg 07/19/25 09:00 07/19/25 10:36 Baclofen 10 Mg Tablet PO Not Given On Hold: 07/19/25 09:08 Q12HR [facility] Baclofen 10 mg 07/20/25 20:19 07/22/25 03:28 Baclofen 10 Mg Tablet PO 10 mg Q6H PRN Administration moderate pain 4-6 Benzonatate 100 mg 07/19/25 04:02 Benzonatate 100 Mg Capsule PO TID PRN Cough Budesonide 0.5 mg 07/19/25 08:00 07/22/25 09:02 Budesonide Respule Neb 0.5 Mg/2 Ml Amp INHALATION 0.5 mg Q12HRT DOC Administration Bupropion HCl 75 mg 07/19/25 09:00 07/22/25 09:09 Bupropion Hcl 75 Mg Tablet PO 75 mg DAILY DOC Administration Diclofenac Sodium 1 applic 07/20/25 20:20 07/21/25 21:53 Diclofenac Sodium 1% 100 Gm Gel (*[facility]) TOPICAL 1 applic QID PRN Administration Pain Ferrous Sulfate 325 mg 07/19/25 09:00 07/22/25 09:09 Ferrous Sulfate 325 Mg Tablet BY MOUTH 325 mg DAILY DOC Administration Fish Oil 1 gm 07/19/25 09:00 07/22/25 09:09 [place] 3 Polyunsat Fatty Acids 1 Gm Cap PO 1 gm DAILY DOC Administration Fluticasone Propionate 1 spray 07/19/25 09:00 07/22/25 09:12 Fluticasone Propionate 0.05% Na Spr 16 Gm Btl (*Bkc) NASAL 1 spray Q12HR DOC Administration Folic Acid 1 mg 07/19/25 09:00 07/22/25 09:09 Folic Acid 1 Mg Tablet PO 1 mg DAILY DOC Administration Furosemide 40 mg 07/22/25 09:00 07/22/25 09:09 Furosemide 40 Mg Tablet PO 40 mg QAM DOC Administration Guaifenesin 600 mg 07/19/25 09:00 07/22/25 09:09 Guaifenesin 12 Hr 600 Mg Tabcr PO 600 mg Q12HR DOC Administration Piperacillin Sod/Tazobactam 50 mls @ 100 mls/hr 07/19/25 04:00 07/22/25 09:39 Sod 3.375 gm/ Sodium Chloride IVPB Infused Q6H DOC Infusion Lactobacillus Acidophilus 1 tablet 07/19/25 09:00 07/22/25 09:09 Acidophilus/Bulgaricus Chewable Tablet PO 1 tablet BID DOC Administration Loperamide HCl 2 mg 07/22/25 13:12 Loperamide Hcl 2 Mg Capsule PO PRN PRN Diarrhea Loratadine 10 mg 07/19/25 21:00 07/21/25 21:48 Loratadine 10 Mg Tablet PO 10 mg HS DOC Administration Miscellaneous Information 0 each 07/20/25 00:01 Diclofenac Add Site Of Use XX 08/19/25 00:00 CLARIFY DOC Ondansetron HCl 4 mg 07/18/25 22:54 07/22/25 10:34 Ondansetron Inj 4 Mg/2 Ml Vial IV PUSH 4 mg Q4H PRN Administration Nausea Pantoprazole Sodium 40 mg 07/22/25 09:00 07/22/25 09:09 Pantoprazole 40 Mg Tablet PO 40 mg QAM DOC Administration Pregabalin 100 mg 07/19/25 06:00 07/22/25 13:04 Pregabalin (*Crx) 50 Mg Capsule PO 100 mg Q8HR DOC Administration Sodium Chloride 20 ml 07/18/25 22:56 Central Line Flush IV PUSH PRN PRN after blood draws Umeclidinium/Vilanterol 1 puff 07/19/25 08:00 Umeclidinium/Vilanterol 62.5-25 Mcg Ellipta INHALATION On Hold: 07/19/25 08:00 DAILYRT DOC Comment: HOLD WHILE THE PATIENT IS ON SCHEDULED DUONEB Vitamin D 25 mcg 07/19/25 09:00 07/22/25 09:09 Cholecalciferol (Vitamin D3) 25 Mcg (1,000 Units) Tablet PO 25 mcg DAILY DOC Administration Radiology Results: ITS Impressions Chest/Abdomen/Pelvis CT 07/18/25 21:09 IMPRESSION: No acute cardiopulmonary process. Fibrotic changes are present bilaterally. Enlarged paraesophageal lymph nodes are noted. CT abdomen and pelvis with contrast: The liver parenchyma is unremarkable. There are dilatation of the left hepatic biliary ducts and common bile duct. The gallbladder is unremarkable. The pancreas and spleen are normal in appearance. 1.3 cm right adrenal nodule is noted. Left adrenal glands are unremarkable. The kidneys demonstrate symmetric uptake and excretion of contrast. Benign renal cysts are noted. There is no solid mass. There is no hydronephrosis. Evaluation of the stomach and bowel loops are limited due to lack of oral contrast. The appendix is not visualized however no secondary signs of appendicitis are identified. There is segmental thickening of the proximal sigmoid colon seen on axial image 198. Although this may be related to postinflammatory changes. Diverticulosis. Tumor cannot be excluded. If clinically indicated follow-up colonoscopy. There is colonic diverticulosis without evidence of acute diverticulitis. The bladder and rectum are normal. No free intraperitoneal fluid or air is evident. There is no significant retroperitoneal lymphadenopathy. The aorta, visceral vessels and renal arteries demonstrate normal caliber and patency. The lower thoracic and lumbar vertebrae are in normal alignment. IMPRESSION: Focal short segment of thickening of the sigmoid colon. Follow-up colonoscopy is recommended. Colonic diverticulosis without evidence of acute diverticulitis. Indeterminate 1.3 cm right adrenal nodule. This can be further evaluated with CT using adrenal protocol. All CT scans at this facility are performed using low dose modulation techniques as appropriate to perform exam including the following: automated exposure control; use of iterative reconstruction technique; adjustment of the mA and/or kV according to patient size (this includes techniques or standardized protocols for targeted exams where dose is matched to indication/reason for exam) Chest X-Ray 07/21/25 07:35 IMPRESSION: 1. Worsening multifocal airspace disease. 2. Probable developing interstitial pulmonary edema. 3. Pulmonary fibrosis. Labs Labs: Laboratory Results - last 24 hr 07/22/25 05:43 WBC 12.3 H RBC 3.23 L Hgb 10.0 L Hct 31.2 L MCV 96.6 MCH 31.0 MCHC 32.1 RDW 15.9 H Plt Count 281 MPV 11.6 H Sodium 138 Potassium 3.0 L Chloride 93 L Carbon Dioxide 39 H Anion Gap 6 BUN 22 H Creatinine 0.82 Estim Creat Clear Calc 44 Estimated GFR > 60 Glucose 105 Calcium 8.4 Phosphorus 4.9 H Magnesium 1.9 Total Bilirubin 0.4 AST 27 ALT 16 Alkaline Phosphatase 54 Total Protein 6.7 Albumin 3.5
[2025-07-22] MEDS: ATORVASTATIN 40 MG TABLET PO (18:20)
[2025-07-22] MEDS: ACETAMINOPHEN 325 MG TABLET 650 MG PO (19:30)
[2025-07-22] MEDS: LORATADINE 10 MG TABLET PO (21:04)
[2025-07-23] VITALS (14 sets, daily range): BP systolic 126–172; BP diastolic 70–80; PULSE 65–88; RESP 14–20; TEMP 36.2–36.9; O2SAT 91–96
[2025-07-23] MEDS: IPRATROPIUM 0.5 MG/ALBUTEROL SULFATE 2.5 MG (BASE) AMPUL.NEB 3 ML INHALATION ×4 (02:32→19:35)
[2025-07-23] MEDS: HYDROcodone/acetaminophen (*CRX) 5-325 MG TABLET 1 TAB PO ×3 (02:47→21:00)
[2025-07-23] MEDS: PIPERACILLIN/TAZOBACTAM SOD 3.375 GM in SODIUM CHLORIDE 0.9% IV 50 ML 100 ML IVPB ×2 (02:51→09:27)
[2025-07-23] MEDS: PREGABALIN (*CRX) 50 MG CAPSULE 100 MG PO ×3 (05:15→20:10)
[2025-07-23 05:39] LABS: Hematocrit 32.5 % (37.0-47.0); Hemoglobin 10.3 g/dL (12.0-15.0); Mean Corpuscular HGB Conc 31.7 g/dl (32-36); Mean Corpuscular Hemoglobin 30.8 pg (26-34); Mean Corpuscular Volume 97.3 fl (80-100); Platelet Count Result 327 k/mm3 (150-375); Red Blood Count 3.34 M/mm3 (4.2-5.4); White Blood Count 11.7 K/mm3 (4.5-10.0)
[2025-07-23 05:54] LABS: Alanine Aminotransferase 16 U/L (6-35); Albumin Level 3.6 g/dL (3.5-5.1); Alkaline Phosphatase 52 U/L (38-126); Anion Gap 7 mmol/L (4-12); Aspartate Amino Transferase 25 U/L (14-36); Bilirubin,Total 0.4 mg/dL (0.2-1.3); Blood Urea Nitrogen 27 mg/dL (7-17); Calcium 8.4 mg/dL (8.4-10.2); Carbon Dioxide 37 mmol/L (22-30); Chloride 95 mmol/L (98-107); Estimated CRCL calculation 38 ml/min; Estimated Glomerular Filt Rate 55; Glucose 115 mg/dL (65-110); Magnesium 1.7 mg/dL (1.6-2.3); Potassium 3.5 mmol/L (3.4-5.0); Sodium 139 mmol/L (137-145); Total Protein 7.0 g/dL (6.3-8.2)
[2025-07-23] MEDS: BUDESONIDE RESPULE NEB 0.5 MG/2 ML AMP INHALATION ×2 (07:39→19:35)
[2025-07-23] MEDS: FOLIC ACID 1 MG TABLET PO (09:22)
[2025-07-23] MEDS: LIPASE/AMYLASE/PROTEASE 12,000 UNITS CAP 4 CAP PO ×3 (09:22→17:04)
[2025-07-23] MEDS: PANTOPRAZOLE 40 MG TABLET PO (09:22)
[2025-07-23] MEDS: FERROUS SULFATE 325 MG TABLET BY MOUTH (09:22)
[2025-07-23] MEDS: CHOLECALCIFEROL (VITAMIN D3) 25 MCG (1,000 UNITS) TABLET PO (09:22)
[2025-07-23] MEDS: OMEGA 3 POLYUNSAT FATTY ACIDS 1 GM CAP PO (09:22)
[2025-07-23] MEDS: APIXABAN 2.5 MG TABLET PO ×2 (09:23→20:14)
[2025-07-23] MEDS: ACIDOPHILUS/BULGARICUS CHEWABLE TABLET 1 TABLET PO ×2 (09:23→17:03)
[2025-07-23] MEDS: FUROSEMIDE 40 MG TABLET PO (09:23)
[2025-07-23] MEDS: ARTIFICIAL TEARS OPHTH SOLN 15 ML BOTTLE 1 DROP EACH EYE ×2 (09:23→17:04)
[2025-07-23] MEDS: guaiFENesin 12 HR 600 MG TABCR PO ×2 (09:23→20:14)
[2025-07-23 10:16] LABS: Toxigenic C. Diff NEGATIVE (NEGATIVE)
--- NOTE | 2025-07-23 13:49 | P.DS_ITS ---
DS: Admitting Diagnosis Discharge Date 07/23/25 Admitting Diagnosis Increasing weakness DS: Discharge Diagnosis Discharge Diagnosis (1) Septic shock: Code(s): A41.9 - Sepsis, unspecified organism; R65.21 - Severe sepsis with septic shock Status: Acute (2) Urinary tract infection: Qualifiers: Hematuria presence: without hematuria Urinary tract infection type: acute cystitis Qualified Code(s): N30.00 - Acute cystitis without hematuria Code(s): N39.0 - Urinary tract infection, site not specified Status: Resolved (3) Chronic anticoagulation: Code(s): Z79.01 - MCC (current) use of anticoagulants Status: Chronic (4) COPD (chronic obstructive pulmonary disease): Qualifiers: COPD type: unspecified COPD Qualified Code(s): J44.9 - Chronic obstructive pulmonary disease, unspecified Code(s): J44.9 - Chronic obstructive pulmonary disease, unspecified Status: Chronic (5) Chronic respiratory failure with hypoxia and hypercapnia: Code(s): J96.11 - Chronic respiratory failure with hypoxia; J96.12 - Chronic respiratory failure with hypercapnia Status: Chronic (6) Chronic interstitial lung disease: Code(s): J84.9 - Interstitial pulmonary disease, unspecified Status: Acute (7) Electrolyte abnormality: Code(s): E87.8 - Other disorders of electrolyte and fluid balance, not elsewhere classified Status: Resolved DS: Summary Hospital Course Reason for hospitalization: 80yo female with ILD, COPD, chronic hypoxic hypercarbic respiratory failure, pulmonary artery hypertension, peripheral vascular disease, CVA, exocrine pancreatic insufficiency and distant history of C diff colitis who presented to the ER via EMS from nursing and rehab due to fever and increased weakness. Please see H&P for details. Hospital Course: The patient presented with septic shock with SBP into the 70's. WBC was up to 32K and fever to 103.2. UA concerning for UTI. CT Ch/A/P showing no acute cardiopulmonary disease, fibrotic changes to the lungs noted, enlarged paraesophageal lymph node at 1.9cm, focal area of sigmoid colon thickening, diverticulosis and indeterminate right adrenal nodule. The area of thickening of the sigmoid colon was noted last month as well. Cultures obtained and she was started on Zosyn and Vancomycin. MRSA nasal swab was positive (as it has been in the past) but CDiff negative. She had mild increased hypoxia on a chronic hypoxic hypercapnic respiratory failure. She was treated with IV Solu-Medrol for one dose and scheduled nebulizer treatments. She was weaned to 2L which is her baseline O2 requirement. Despite greater than 30 mL/kilos fluid bolus in the ER the patient remained hypotensive. She has subsequently had a femoral line placed they and has been started on Levophed. We were able to titrate Levophed off quickly. WBC trended down to 11K. BCx remained negative. UCx grew proteus sensitive to Rocephin. She has been up walking in the room. She is requesting discharge. She overall did well and was able to be discharged on 07/23/25. Discharge instruction discussed including side effects of medications. All questions answered. Status at Discharge Cognitive/behavioral status at discharge: stable Time Spent with Patient Time attestation: Total time spent providing and/or coordinating discharge services: 35 minutes Time spent: Greater than 30 minutes Exam Narrative: AF 97.6 134/74 67 18 95% 2Lf Gen - NARD Chest - bibasilar dry inspiratory crackles. CV - RRR S1/S2 Abd - Soft, NT/ND, Positive BS Ext - No pedal edema Neuro - Alert and oriented. Nonfocal exam. Psych - Nml mood and affect Skin - Warm and dry DS: Data Data Completed and Pending Labs on day of discharge: Labs from last 24 hours 07/23/25 07/23/25 09:09 05:18 WBC 11.7 H RBC 3.34 L Hgb 10.3 L Hct 32.5 L MCV 97.3 MCH 30.8 MCHC 31.7 L RDW 15.9 H Plt Count 327 MPV 11.1 H Sodium 139 Potassium 3.5 Chloride 95 L Carbon Dioxide 37 H Anion Gap 7 BUN 27 H Creatinine 0.97 Estim Creat Clear Calc 38 Estimated GFR 55 L Glucose 115 H Calcium 8.4 Phosphorus 5.2 H Magnesium 1.7 Total Bilirubin 0.4 AST 25 ALT 16 Alkaline Phosphatase 52 Total Protein 7.0 Albumin 3.6 C. difficile (PCR) Negative Preliminary micro results at discharge 07/19/25 01:09 Blood Culture - Preliminary Blood 07/18/25 20:07 Blood Culture - Preliminary Blood Discharge Plan Discharge Attending physician on discharge: Gonzalez Giles Consulting providers: Wang Kaplan Discharging Clinician: Gonzalez Giles Anticipated Discharge Date/Time: 07/23/25 14:06 Patient Disposition: NH Shelter/Asst Living Activity: as tolerated Diet: heart healthy Discharge Instructions: Continue oxygen 2liters at all times. Take precautions to avoid falls. Rise slowly from a lying or sitting position. Pause before standing or walking. Contact the doctor if the patient has any type of trauma, lightheadedness with standing or other worrisome symptoms. Avoid NSAIDs (ibuprofen, naproxen, Aleve). Tylenol is safe to take. Follow-up with the provider at the facility. Follow-up with GI in 4-6 weeks. Please call for an appointment. Thank you for using [facility] for your health care needs. Patient Instructions: Antibiotic Form, Apixaban (By mouth), Heart Failure (GEN), Urinary Tract Infection in Women (GEN), Sepsis (GEN), Hypercoagulation (GEN), Low-Sodium Diet (GEN), Blood Thinners (GEN), Urinary Tract Infection in Older Adults (GEN) Patient Language: Citizen Of [place] Stand Alone Forms: General Discharge Information Follow-up/Referrals: Codey,Rory [Other] - Call for Appointment Kirk Knight MD [Physician, Gastroenterology] - Call for Appointment Discharge Medications: New cephalexin 500 mg Capsule 500 mg PO Q12HR Qty: 6 0RF Continued esomeprazole magnesium [address] for susp in packet 40 mg PO DAILY guaifenesin 600 mg tablet extended release 12hr 600 mg PO BID bupropion HCl 75 mg tablet 75 mg PO DAILY Eliquis 2.5 mg tablet 2.5 mg PO BID furosemide 40 mg tablet 40 mg PO QAM albuterol sulfate 2.5 mg /3 mL (0.083 %) solution for nebulization 2.5 mg inhalation QID PRN (Reason: SOB) omega 8-nfx-ysc-fish oil [Fish Oil] 1,000 mg (120 mg-180 mg) capsule 1 cap PO DAILY amlodipine 5 mg tablet 5 mg PO DAILY ferrous sulfate 325 mg (65 mg iron) tablet 325 mg PO DAILY baclofen 10 mg tablet 10 mg PO Q12H pregabalin [Lyrica] 150 mg capsule 100 mg PO Q8H acetaminophen 650 mg Tablet Extended Release 650 mg PO Q6H PRN (Reason: Mild Pain (Scale Score 1-4)) loperamide 2 mg Capsule 2 mg PO Q12H PRN (Reason: Diarrhea) cholecalciferol (vitamin D3) 25 mcg (1,000 unit) Tablet 25 mcg PO DAILY artificial tears solution Drops 1 drp OPHTHALMIC (EYE) BID atorvastatin 40 mg tablet 40 mg PO QPM diclofenac sodium 50 mg tablet,delayed release (DR/EC) 50 mg PO Q12H PRN (Reason: inflammation) ascorbic acid (vitamin C) 500 mg tablet 500 mg PO BID bisacodyl 10 mg suppository 10 mg RECTAL DAILY PRN (Reason: constipation) multivitamin [Daily Multi-Vitamin] Tablet 1 tablet PO DAILY senna 8.6 mg capsule 8.6 mg PO BID Trexall 7.5 mg tablet 7.5 mg PO WEEKLY Patient Comments: To be given on budesonide [Pulmicort] 0.5 mg/2 mL Suspension For Nebulization 0.5 mg inhalation Q12HRT Qty: 30 0RF fluticasone propionate 50 mcg/actuation [place],Suspension 1 spray intranasal Q12HR Qty: 30 0RF baclofen 10 mg tablet 10 mg PO Q6H PRN (Reason: moderate pain) hydrocodone-acetaminophen 5-325 mg tablet 1 tablet PO TID PRN (Reason: pain) umeclidinium-vilanterol [Anoro Ellipta] 62.5-25 mcg/actuation blister with device 1 inh INHALATION Q24H Lactobacillus acidophilus Capsule 100 mg PO BID cetirizine [24Hour Allergy] 10 mg tablet 5 mg PO HS diphenhydramine HCl [Allergy (diphenhydramine)] 25 mg capsule 25 mg PO Q6H PRN (Reason: itching) Creon 24,000-76,000 -120,000 unit capsule,delayed release(DR/EC) 2 cap PO TIDWM Enema 19-7 gram/118 mL enema 118 ml RECTAL DAILY PRN (Reason: constipation) benzonatate 100 mg Capsule 100 mg PO TID PRN (Reason: Cough) Qty: 30 0RF folic acid 1 mg tablet 1 mg PO DAILY Qty: 90 2RF Changed ondansetron 4 mg Tablet,Disintegrating 4 mg PO Q6H PRN (Reason: nausea and vomitting) Qty: 10 0RF Held carvedilol [Coreg] 3.125 mg Tablet 3.125 mg PO BID Hold Instructions: HOLD - Resume when okay with your provider magnesium citrate [Citroma] Solution 296 ml PO DAILY PRN (Reason: constipation) Hold Instructions: HOLD - Resume when okay with your provider trazodone 50 mg tablet 50 mg PO HS Hold Instructions: HOLD - Resume when okay with your provider polyethylene glycol 3350 [ClearLax] 17 gram powder in packet 17 g PO DAILY Hold Instructions: HOLD - resume when okay with your doctor Discontinued ondansetron HCl 4 mg tablet 4 mg PO TID fexofenadine [Lea Allergy] 180 mg tablet 180 mg PO DAILY Date of admission: 07/18/25 22:54 Primary Care Provider: CodyeRory Admitting Provider: Ayesha Carrillo Attending physician on admission: Ayesha Carrillo Condition: Stable Hospitalist MIPS Heart Failure (Exclusion) Patient has history of Heart Transplant or Left Ventricular Assistive Device?: No IF YES, STOP HERE Heart Failure (Qualifier) Patient has current or prior documentation of LVEF less than or equal to 40%, or mod/servere depressed LVSF?: No IF NO, STOP HERE
[2025-07-23] MEDS: LOPERAMIDE HCL 2 MG CAPSULE PO (14:53)
[2025-07-23] MEDS: CEPHALEXIN 500 MG CAPSULE PO ×2 (14:53→20:13)
[2025-07-23] MEDS: ATORVASTATIN 40 MG TABLET PO (17:03)
[2025-07-23] MEDS: LORATADINE 10 MG TABLET PO (20:14)
== END 2025-07-23 21:29 | DRG 871 ==
LOC: ANHED 20:29 → ANHICU 23:45 → ANH3MEDSUR 07-20 16:08
PROVIDERS: Internal Medicine; Admitting Provider Internal Medicine; Emergency Provider Student in an Organized Health Care Education/Training Program; Visit Provider Internal Medicine
DX: A41.9 Sepsis, unspecified organism (principal); R65.21 Severe sepsis with septic shock; J84.9 Interstitial pulmonary disease, unspecified; J96.11 Chronic respiratory failure with hypoxia; J96.12 Chronic respiratory failure with hypercapnia; N39.0 Urinary tract infection, site not specified; I50.32 Chronic diastolic (congestive) heart failure; I11.0 Hypertensive heart disease with heart failure; J44.9 Chronic obstructive pulmonary disease, unspecified; D64.89 Other specified anemias; I27.21 Secondary pulmonary arterial hypertension; K86.81 Exocrine pancreatic insufficiency; K21.9 Gastro-esophageal reflux disease without esophagitis; E78.5 Hyperlipidemia, unspecified; M19.90 Unspecified osteoarthritis, unspecified site; M81.0 Age-related osteoporosis without current pathological fracture; R73.03 Prediabetes; I73.9 Peripheral vascular disease, unspecified; I95.9 Hypotension, unspecified; K52.9 Noninfective gastroenteritis and colitis, unspecified; F03.90 Unspecified dementia, unspecified severity, without behavioral disturbance, psychotic disturbance, mood disturbance, and anxiety; B96.4 Proteus (mirabilis) (morganii) as the cause of diseases classified elsewhere; E87.8 Other disorders of electrolyte and fluid balance, not elsewhere classified; F41.9 Anxiety disorder, unspecified; F32.A Depression, unspecified; Z66 Do not resuscitate; Z86.711 Personal history of pulmonary embolism; Z87.11 Personal history of peptic ulcer disease; Z86.16 Personal history of COVID-19; Z98.1 Arthrodesis status; Z90.49 Acquired absence of other specified parts of digestive tract; Z86.19 Personal history of other infectious and parasitic diseases; Z86.73 Personal history of transient ischemic attack (TIA), and cerebral infarction without residual deficits; Z87.891 Personal history of nicotine dependence; Z99.81 Dependence on supplemental oxygen; Z79.01 Long term (current) use of anticoagulants; Z79.891 Long term (current) use of opiate analgesic; Z87.19 Personal history of other diseases of the digestive system
CPT/HCPCS: 36415; 36556; 36600; 71045; 71260; 74177; 80053; 81001; 82375; 82533; 82565; 82805; 83050; 83605; 83735; 83880; 84100; 84145; 85018; 85025; 85027; 85610; 85652; 85730; 86140; 87040; 87086; 87186; 87493; 87641; 93005; 94640; 96361; 96365; 99291; A9270; C1751; J0613; J1720; J1938; J2270; J2405; J2543; J2919; J3373; J3475; J7030; J7120; Q9967

== ENCOUNTER 2025-07-28 16:17 | Emergency (ER) | payer MEDICARE, MEDICAID, SELFPAY ==
[2025-07-28] VITALS (31 sets, daily range): BP systolic 92–166; BP diastolic 47–89; PULSE 65–78; RESP 15–39; TEMP 36.7; O2SAT 93–96
--- NOTE | ~2025-07-28 | CT_ITS ---
EXAMINATION: CT abdomen pelvis w con DATE: 07/28/2025 19:48 INDICATION: Lower abdominal pain TECHNIQUE: Computed tomography (CT) of the abdomen and pelvis was performed with 100 mL Omnipaque-350 intravenous contrast. Automated exposure control and iterative reconstruction technique were employed. The dose-length product was 785.67 mGy-cm. COMPARISON: 07/18/2025 FINDINGS: Chronic mild elevation of the right hemidiaphragm. Similar pattern of atelectasis/scarring in the bilateral lower lungs with prominent bronchiectatic changes in the lingula likely sequela of chronic infection. Heart size is normal. No pericardial or pleural effusion. Chronic mild intrahepatic extrahepa tic biliary ductal dilation likely related to prior cholecystectomy with surgical clips the gallbladder fossa. Several small splenic calcifications consistent with old granulomatous disease. Pancreas and left adrenal gland are normal. 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 Bilateral renal cysts the largest measuring 1.4 cm the right kidney. There is wall thickening. Moderate sigmoid diverticulosis with chronic wall thickening at the proximal sigmoid colon which likely sequela of prior diverticulitis. No focal surrounding inflammatory stranding to suggest acute diverticulitis. There is a tract of soft tissue density extending between the mid sigmoid colon and a loop of small bowel in the right hemipelvis suspicious for a secondary enterocolic fistula. Normal appendix. There is subtle stranding in the fat surrounding the bladder suspicious for diverticulitis. The uterus is not identified and has likely been surgically resected. No abscess or free intraperitoneal gas or fluid. No pathologically enlarged abdominal or pelvic lymphadenopathy. There is calcified atherosclerosis of the normal caliber abdominal aorta and many of the other arteries. Mild S-shaped curvature of the lumbar and lower thoracic spine. Severe lumbar and moderate to severe lower thoracic spondylosis. L4-L5 anterior spinal fusion with interbody bone fusion device. 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 IMPRESSION: 1. Stranding surrounding the wall the bladder raising suspicion for cystitis. Correlate with urinalysis.. 2. 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 Reviewed, dictated and finalized at location A. IMPRESSION: 1. Stranding surrounding the wall the bladder raising suspicion for cystitis. C orrelate with urinalysis.. 2. 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
--- NOTE | ~2025-07-28 | XR_ITS ---
EXAMINATION: XR chest 2V DATE: 07/28/2025 17:26 INDICATION: Generalized weakness TECHNIQUE: frontal and lateral views of the chest were obtained. COMPARISON: Chest radiograph dated 07/21/[address] studies dated 07/18/2025 and 03/25/2025 FINDINGS: . Chronic elevation of the right hemidiaphragm. No significant change in bilateral airspace and coarse reticular opacities most prominent in the right upper and left mid and lower lung zones corresponding to chronic interstitial lung disease which can be seen on multiple CT scans dating back to 03/25/2025. No pleural effusion or pneumothorax. Heart size is normal. Cholecystectomy clips in upper abdomen. Lower cervical anterior spinal fusion with anterior plate and screw fixation. IMPRESSION: 1. No significant change in elevation right hemidiaphragm and bilateral airspace and interstitial opacities consistent with chronic interstitial lung disease. Reviewed, dictated and finalized at location [facility]. IMPRESSION: 1. No significant change in elevation right hemidiaphragm and bilateral airspac e and interstitial opacities consistent with chronic interstitial lung disease.
--- NOTE | 2025-07-28 16:57 | ECG_ITS ---
Test Date: 2025-07-28 17:05:57 Measurements Intervals [place] Rate: 65 P: 28 NE: 171 QRS: 45 QRSD: 87 T: 60 QT: 374 QTc: 390 Interpretive Statements SINUS RHYTHM CONSIDER RIGHT VENTRICULAR CONDUCTION DELAY BASELINE ARTIFACT- I, II, III, AVR, AVL, AVF, V1 BORDERLINE ECG Compared to ECG 07/21/2025 01:25:59 ATRIAL AND VENTRICULAR PREMATURE COMPLEXES NO LONGER PRESENT Electronically Signed On 07-28-2025 19:54:16 CDT by Kole Carey D.O.
[2025-07-28 17:06] LABS: Hematocrit 32.6 % (37.0-47.0); Hemoglobin 10.0 g/dL (12.0-15.0); Immature Granulocyte Percent A 0.8 % (0-0.5); Lymphocytes Absolute Auto 1.96 K/mm3 (0.9-3.2); Mean Corpuscular HGB Conc 30.7 g/dl (32-36); Mean Corpuscular Hemoglobin 30.6 pg (26-34); Mean Corpuscular Volume 99.7 fl (80-100); Nucleated Red Blood Cells Absolute Auto 0.000 K/mm3 (0.0-0.012); Nucleated Red Blood Cells Perc 0.0 % (0.0-0.2); Platelet Count Result 322 k/mm3 (150-375); Red Blood Count 3.27 M/mm3 (4.2-5.4); White Blood Count 11.2 K/mm3 (4.5-10.0)
[2025-07-28 17:16] LABS: Alanine Aminotransferase 15 U/L (6-35); Albumin Level 4.1 g/dL (3.5-5.1); Alkaline Phosphatase 55 U/L (38-126); Anion Gap 5 mmol/L (4-12); Aspartate Amino Transferase 24 U/L (14-36); Bilirubin,Total 0.2 mg/dL (0.2-1.3); Blood Urea Nitrogen 22 mg/dL (7-17); Calcium 9.0 mg/dL (8.4-10.2); Carbon Dioxide 34 mmol/L (22-30); Chloride 99 mmol/L (98-107); Estimated CRCL calculation 34 ml/min; Estimated Glomerular Filt Rate 54; Glucose 104 mg/dL (65-110); Potassium 4.6 mmol/L (3.4-5.0); Sodium 138 mmol/L (137-145); Total Protein 7.6 g/dL (6.3-8.2)
--- OUTSIDE RECORDS SUMMARY | 2025-07-28 17:59 | XMS_ITS | Clinical Summary ---
Author Organization [facility] Address [address] [place] [address] Care Team Providers Care Mimeograph Operator Name Role Phone PastoradruMack montanez DO Primary Care Provider Source Comments [facility],non-owned Affiliates and Associated Physician Practices is amultiple site organization consisting of ambulatory clinics and hospital sitesin [place], [place], [place] and [place]. This disclosure is being madepursuant to the Care Everywhere program and may not contain all information available regarding this patient. 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
--- OUTSIDE RECORDS SUMMARY | 2025-07-28 17:59 | XMS_ITS | Encounter Summary ---
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
--- OUTSIDE RECORDS SUMMARY | 2025-07-28 17:59 | XMS_ITS | Clinical Summary ---
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 Gender Identity Not on file Sexual [...] 65+ Completed 018, 07/09/2015, 07/28/2010 Insurance [employer] [facility] MEDICARE [facility]IC[facility] Address: [facility] [address] [place] [address] [facility] MEDICARE ID[facility] MEDICARE AD[facility]ANTAGE [facility] MEDICARE Address: [address] [address] [place] [address] [employer] Advance Directives For more information, please contact: [phone] Documents on File Type Date Recorded Patient Auto Damage 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
--- NOTE | 2025-07-28 18:01 | ED.RECABL ---
HPI - Recheck/Abnormal Lab/Rx General Chief Complaint: Recheck/Abnormal Lab/Rx <SKYLAR Heck - Last Filed: 07/28/25 18:07> Stated Complaint: lethargy, abnormal labs <SKYLAR Heck - Last Filed: 07/28/25 18:07> Time Seen by Provider: 07/28/25 17:23 <SKYLAR Heck - Last Filed: 07/28/25 18:07> History of Present Illness HPI narrative: This is a pleasant, elderly female with past medical history of hypertension, heart failure, hyperlipidemia, PAH, vitamin-D deficiency, UTIs, anemia, sepsis, COPD with supplemental oxygenation at 3 L chronically, ILD, former smoker, pancreatic insufficiency, C-diff colitis who was recently admitted here to the hospital from July 18 to July 23, 2025 with septic shock, weakness and source of infection urinary tract infection. Patient had a favorable hospitalization and was found that her urine grew out Proteus sensitive to Rocephin that she received here and she was [facility] to the [facility] to finish an additional 3 days of Keflex. Patient has fullness that dosing and now she presents back to the emergency room complaints burning with urination, increased weakness, fatigue and generally feeling unwell. She denies any nausea/vomiting/diarrhea. She has been afebrile. She does have lower abdominal pain. She has not been able to identify any exacerbating or alleviating factors. <SKYLAR Heck - Last Filed: 07/28/25 18:07> Related Data Home Medications: Home Medications ?Medication ?Instructions ?Recorded ?Confirmed ?Last Taken ?Type acetaminophen 650 mg 650 mg PO Q6H PRN Mild Pain (Scale 10/09/21 07/19/25 07/17/25 07:30 History tablet,extended release Score 1-4) carvedilol 3.125 mg tablet (Coreg) 3.125 mg PO BID 10/09/21 07/19/25 03/18/25 History Held on 07/23/25. Instructions: HOLD - Resume when okay with your provider apixaban 2.5 mg tablet (Eliquis) 2.5 mg PO BID 01/12/23 07/19/25 07/18/25 07:00 History bupropion HCl 75 mg tablet 75 mg PO DAILY 01/12/23 07/19/25 07/18/25 07:00 History furosemide 40 mg tablet 40 mg PO QAM 01/12/23 07/19/25 07/18/25 07:00 History guaifenesin 600 mg tablet, 600 mg PO BID 01/12/23 07/19/25 07/18/25 07:00 History extended release 12 hr albuterol sulfate 2.5 mg/3 mL 2.5 mg inhalation QID PRN SOB 04/18/24 07/19/25 07/09/25 00:30 History (0.083 %) solution for nebulization omega 5-[id number] oil 1,000 mg 1 cap PO DAILY 04/18/24 07/19/25 07/18/25 07:00 History (120 mg-180 mg) capsule (Fish Oil) artificial tears solution eye drops 1 drp ophthalmic (eye) BID dry eyes 04/21/24 07/19/25 07/18/25 07:00 History cholecalciferol (vitamin D3) 25 25 mcg PO DAILY 04/21/24 07/19/25 07/18/25 07:00 History mcg (1,000 unit) tablet loperamide 2 mg capsule 2 mg PO Q12H PRN Diarrhea 04/21/24 07/19/25 07/17/25 13:20 History ascorbic acid (vitamin C) 500 mg 500 mg PO BID 03/19/25 07/19/25 07/18/25 07:00 History tablet atorvastatin 40 mg tablet 40 mg PO QPM 03/19/25 07/19/25 07/17/25 20:00 History bisacodyl 10 mg rectal suppository 10 mg RECTAL DAILY PRN constipation 03/19/25 07/19/25 Unknown History diclofenac sodium 50 mg 50 mg PO Q12H PRN inflammation 03/19/25 07/19/25 07/01/25 15:30 History tablet,delayed release magnesium citrate (Citroma oral 296 ml PO DAILY PRN constipation 03/19/25 07/19/25 Unknown History solution) Held on 07/23/25. Instructions: HOLD - Resume when okay with your provider methotrexate sodium 7.5 mg tablet 7.5 mg PO WEEKLY 0607/19/25 07/13/25 08:40 History (Trexall) multivitamin (Daily Multi-Vitamin 1 tablet PO DAILY 03/19/25 07/19/25 07/18/25 07:00 History tablet) sennosides 8.6 mg capsule (senna) 8.6 mg PO BID 03/19/25 07/19/25 07/18/25 07:00 History baclofen 10 mg tablet 10 mg PO Q6H PRN moderate pain 04/18/25 07/19/25 06/22/25 01:45 History esomeprazole magnesium 40 mg 40 mg PO DAILY 05/05/25 07/19/25 07/18/25 07:00 History granules delayed release for susp Lactobacillus acidophilus 100 mg PO BID 06/11/25 07/19/25 07/18/25 07:00 History cetirizine 10 mg tablet (24Hour 5 mg PO HS 06/11/25 07/19/25 07/17/25 20:20 History Allergy) diphenhydramine HCl 25 mg capsule 25 mg PO Q6H PRN itching 06/11/25 07/19/25 07/03/25 01:20 History (Allergy (diphenhydramine)) hydrocodone 5 mg-acetaminophen 325 1 tablet PO TID PRN pain 06/11/25 07/19/25 07/18/25 11:40 History mg tablet vwcrxb-wocjyrsd-nzfovg(pork)24,000-76,000-120,000 2 cap PO TIDWM 06/11/25 07/19/25 07/18/25 11:40 History unit capsule,del rel (Creon) polyethylene glycol 3350 17 gram 17 g PO DAILY 06/11/25 07/19/25 Unknown History oral powder packet (ClearLax) Held on 07/23/25. Instructions: HOLD - resume when okay with your doctor sodium phosphates 19 gram-7 118 ml RECTAL DAILY PRN 06/11/25 07/19/25 Unknown History gram/118 mL enema (Enema) constipation trazodone 50 mg tablet 50 mg PO HS 06/11/25 07/19/25 06/10/25 History Held on 07/23/25. Instructions: HOLD - Resume when okay with your provider umeclidinium 62.5 mcg-vilanterol 1 inh inhalation Q24H 06/11/25 07/19/25 07/17/25 05:00 History 25 mcg/actuation powdr for inhalation (Anoro Ellipta) amlodipine 5 mg tablet 5 mg PO DAILY 07/19/25 07/19/25 07/18/25 07:00 History baclofen 10 mg tablet 10 mg PO Q12H 07/19/25 07/19/25 Unknown History ferrous sulfate 325 mg (65 mg 325 mg PO DAILY 07/19/25 07/19/25 07/18/25 07:00 History iron) tablet pregabalin 150 mg capsule (Lyrica) 100 mg PO Q8H 07/19/25 07/19/25 07/18/25 07:00 History <SKYLAR Heck - Last Filed: 07/28/25 18:07> Allergies/Adverse Reactions: Allergies Allergy/AdvReac Type Severity Reaction Status Date / Time ceftriaxone (From Rocephin) Allergy Intermediate Rash Verified 07/19/25 00:37 Sulfa (Sulfonamide Allergy Intermediate Rash Verified 07/19/25 00:37 Antibiotics) <SKYLAR Heck - Last Filed: 07/28/25 18:07> Review of Systems Review of Systems: All systems reviewed & are unremarkable except as noted in HPI and below <SKYLAR Heck - Last Filed: 07/28/25 18:07> [facility] Past Medical History Medical History: Medical History Chronic diarrhea Diverticular disease of intestine with perforation and abscess (04/2025) Pulmonary embolism Chronic respiratory failure with hypoxia and hypercapnia On 2 to 3 L nasal cannula. Dementia OAB (overactive bladder) Anemia of chronic disease Sigmoid diverticulitis with abscess and shock, April 2025 Exocrine pancreatic insufficiency Pancreatitis Chronic anticoagulation Hyperlipidemia Diastolic congestive heart failure Hypertension Drug overdose Pulmonary embolism (06/2021) Pulmonary arterial hypertension Chronic interstitial lung disease Peripheral vascular disease Cerebrovascular accident Clostridium difficile diarrhea Prediabetes History of peptic ulcer Gastroesophageal reflux disease Chronic obstructive pulmonary disease Pneumonia due to 2019-nCoV (06/11/21) Migraine Herniated disc Osteoporosis Anxiety Depression Arthritis GI bleed Emphysema of lung <SKYLAR Heck - Last Filed: 07/28/25 18:07> Surgical History Surgical History: Surgical History History of lumbar fusion x2 History of neck surgery (2001) History of tonsillectomy History of bladder suspension procedure History of hysterectomy History of tubal ligation History of cholecystectomy History of cardiac cath History of vascular surgery Left lower extremity. <SKYLAR Heck - Last Filed: 07/28/25 18:07> Family History Family History: Family History Father Family history of Parkinson's disease Mother Family history of pancreatic cancer Family history of chronic obstructive pulmonary disease Other Patient's brother is in good health <SKYLAR Heck - Last Filed: 07/28/25 18:07> Social History Social History: Social History Social History: Surrogate decision maker: Stefanie Finney, granddaughter. Code status: DNR/DNI but okay with pressors Smoking packs per day: 0.5 Smoking cigarettes per day: 10.0 Years smoked: 20 Smoking pack-years: 10.00 Smoking status: Former smoker Tobacco type: cigarettes Second hand tobacco smoke exposure: Yes Alcohol intake: never Substance use: never Substance use type: does not use Do You Feel Safe in your Home?: Yes Lack of Transportation: No Lack of Food: Never True Current Housing: I Have Housing Concerned About Future Housing: No Difficulty Paying Gas/Electric Bills: No Difficulty Paying for Meds: No Currently Unemployed: No Education: Decline to Answer Difficulty w/ Childcare or Family Care: No Living arrangements: [facility] Additional living arrangements comments: Resident of [facility]. Additional occupation/education comments: Retired. Spiritual care concerns: No <SKYLAR Heck - Last Filed: 07/28/25 18:07> Exam Const: General: no acute distress, alert and ill appearing chronically <LUCHO HeckC - Last Filed: 07/28/25 18:07> Orientation/consciousness: No patient oriented x3 (Oriented to self, time and location but unsure why she is here.) <SKYLAR Heck - Last Filed: 07/28/25 18:07> Other: Elderly female patient, who tells me she is unsure why she is here but then tells me she has abdominal pain and burning with urination. <SKYLAR Heck - Last Filed: 07/28/25 18:07> HENMT: Head: normal to inspection <SKYLAR Heck - Last Filed: 07/28/25 18:07> Ears: external ears normal <SKYLAR Heck - Last Filed: 07/28/25 18:07> Mouth: Yes Normal oral and palatal mucosa present and Yes moist mucous membranes <SKYLAR Heck - Last Filed: 07/28/25 18:07> Throat: posterior oropharynx normal <SKYLAR Heck - Last Filed: 07/28/25 18:07> Eyes: Conjunctivae: conjunctivae normal <SKYLAR Heck - Last Filed: 07/28/25 18:07> Neck: Neck: normal visual inspection, no lymphadenopathy and no meningeal signs <SKYLAR Heck - Last Filed: 07/28/25 18:07> Other: Moves neck in a full active range of motion is supple manner in all directions. <SKYLAR Heck - Last Filed: 07/28/25 18:07> Chest: Other: Nontender to palpation <SKYLAR Heck - Last Filed: 07/28/25 18:07> Resp: Effort & Inspection: normal respiratory effort <SKYLAR Heck Last Filed: 07/28/25 18:07> Auscultation: clear to auscultation bilaterally <SKYLAR Heck Last Filed: 07/28/25 18:07> Cardio: Rate: regular rate <SKYLAR Heck - Last Filed: 07/28/25 18:07> Rhythm: regular rhythm <SKYLAR Heck - Last Filed: 07/28/25 18:07> Heart sounds: no murmurs <SKYLAR Heck - Last Filed: 07/28/25 18:07> GI: GI Palp: Yes Soft to palpation, Yes Tenderness to palpation present (GI) (Suprapubic) and No Guarding due to palpation present (GI) <SKYLAR Heck - Last Filed: 07/28/25 18:07> Auscultation: normal bowel sounds <SKYLAR Heck - Last Filed: 07/28/25 18:07> Back/Spine/Pelvis: Back: no CVA tenderness <SKYLAR Heck - Last Filed: 07/28/25 18:07> Skin: General skin exam: normal color <SKYLAR Heck - Last Filed: 07/28/25 18:07> Rashes: no rashes <SKYLAR Heck - Last Filed: 07/28/25 18:07> Wounds: no wounds <SKYLAR Heck - Last Filed: 07/28/25 18:07> Neuro: General: patient oriented x3, moves all extremities, no meningeal signs and no focal motor deficits <SKYLAR Heck - Last Filed: 07/28/25 18:07> Speech: normal speech <SKYLAR Heck - Last Filed: 07/28/25 18:07> Extrem: Other: Feeling equally moves all extremities well without deficit. No edema. <SKYLAR Heck - Last Filed: 07/28/25 18:07> Psych: Mental Status: mental status grossly normal <SKYLAR Heck - Last Filed: 07/28/25 18:07> Affect: normal affect <SKYLAR Heck - Last Filed: 07/28/25 18:07> Course Course Emergency Course: Differential diagnosis includes but not limited to: Sepsis, urinary tract infection, electrolyte abnormality Vital signs are reviewed and stable was soft BP noted 94/52. Workup initiated with labs and imaging. <SKYLAR Heck - Last Filed: 07/28/25 18:07> CHIEF RISK OFFICER/PA Physician Supervision This visit was performed by both a physician and an Advanced Building Maintenance Repairer. I performed all aspects of the Medical Decision Making as documented. <Joo Obando MD - Last Filed: 08/02/25 19:17> Vital Signs Vital signs: Vital Signs Temperature 98.1 F 07/28/25 16:22 Pulse Rate 65 07/28/25 16:22 Respiratory Rate 18 07/28/25 16:22 Blood Pressure 94/52 L 07/28/25 16:22 Pulse Oximetry 96 07/28/25 16:22 Oxygen Delivery Nasal Cannula 07/28/25 16:22 Oxygen Flow Rate 3 07/28/25 16:22 Temperature 98.1 F 07/28/25 16:22 Pulse Rate 69 07/28/25 22:01 Respiratory Rate 16 07/28/25 22:01 Blood Pressure 157/68 H 07/28/25 22:01 Pulse Oximetry 96 07/28/25 22:01 Oxygen Delivery Nasal Cannula 07/28/25 16:22 Oxygen Flow Rate 3 07/28/25 16:22 <SKYLAR Heck - Last Filed: 07/28/25 18:07> Vital Signs Temperature 98.1 F 07/28/25 16:22 Pulse Rate 65 07/28/25 16:22 Respiratory Rate 18 07/28/25 16:22 Blood Pressure 94/52 L 07/28/25 16:22 Pulse Oximetry 96 07/28/25 16:22 Oxygen Delivery Nasal Cannula 07/28/25 16:22 Oxygen Flow Rate 3 07/28/25 16:22 Temperature 98.1 F 07/28/25 16:22 Pulse Rate 69 07/28/25 22:01 Respiratory Rate 16 07/28/25 22:01 Blood Pressure 157/68 H 07/28/25 22:01 Pulse Oximetry 96 07/28/25 22:01 Oxygen Delivery Nasal Cannula 07/28/25 16:22 Oxygen Flow Rate 3 07/28/25 16:22 <Whit Alexandra APRN - Last Filed: 07/28/25 22:02> Vital Signs Temperature 98.1 F 07/28/25 16:22 Pulse Rate 65 07/28/25 16:22 Respiratory Rate 18 07/28/25 16:22 Blood Pressure 94/52 L 07/28/25 16:22 Pulse Oximetry 96 07/28/25 16:22 Oxygen Delivery Nasal Cannula 07/28/25 16:22 Oxygen Flow Rate 3 07/28/25 16:22 Temperature 98.1 F 07/28/25 16:22 Pulse Rate 69 07/28/25 22:01 Respiratory Rate 16 07/28/25 22:01 Blood Pressure 157/68 H 07/28/25 22:01 Pulse Oximetry 96 07/28/25 22:01 Oxygen Delivery Nasal Cannula 07/28/25 16:22 Oxygen Flow Rate 3 07/28/25 16:22 <Joo Obando MD - Last Filed: 08/02/25 19:17> MDM - Recheck/Abnormal Lab/Rx MDM Narrative Medical decision making narrative: 1899- I picked up this patient from Darlene Kc NP. Upon reexamination patient has significant tenderness in her bilateral lower quadrants. Her caregiver reports she has a history of C diff. patient's caregiver also reports she was sent here by the [facility] due to her high CO2 levels. Patient Education/Shared MDM: Results of lab work and imaging shared with patient and her family. Extensive discussion between CHIEF RISK OFFICER and her family regarding plan for discharge. Her daughter is comfortable with patient being discharged home on oral antibiotics. Patient strongly advised to follow-up with her PCP as soon as possible. She will be discharged home with a prescription for Cefuroxime PO. Strict return precautions provided. Patient verbalized understanding and is in agreement with plan. Vital signs stable at time of discharge. All questions answered. <Whit Alexandra, CARMELA - Last Filed: 07/28/25 22:02> Differential Diagnosis Differential diagnosis: Likely other (Urosepsis, urinary tract infection, C diff, abdominal pain) <Whit Alexandra APRN - Last Filed: 07/28/25 22:02> Lab Data Attestation: I reviewed the patient's lab results. <Whit Alexandra APRN - Last Filed: 07/28/25 22:02> Result diagrams: 07/28/25 16:58 07/28/25 16:59 <Rosy Kc APN-C - Last Filed: 07/28/25 18:07> Labs: Lab Results 07/28/25 07/28/25 07/28/25 Range/Units 16:58 16:59 18:34 WBC 11.2 H (4.5-10.0) K/mm3 RBC 3.27 L (4.2-5.4) M/mm3 Hgb 10.0 L (12.0-15.0) g/dL Hct 32.6 L (37.0-47.0) % MCV 99.7 (80-100) fl MCH 30.6 (26-34) pg MCHC 30.7 L (32-36) g/dl RDW 15.1 H (11.5-14.5) % Plt Count 322 (150-375) k/mm3 MPV 11.5 H (7.4-10.4) fl Immature Gran % (Auto) 0.8 H (0-0.5) % Neut % (Auto) 69.4 (45.5-73.1) % Lymph % (Auto) 17.5 L (18.3-44.2) % Darke % (Auto) 7.8 (2.6-8.5) % Eos % (Auto) 4.0 (0-4.4) % Baso % (Auto) 0.5 (0.2-1.2) % Lymph # (Auto) 1.96 (0.9-3.2) K/mm3 Darke # (Auto) 0.9 H (0.1-0.6) K/mm3 Eos # (Auto) 0.5 H (0-0.3) K/mm3 Baso # (Auto) 0.1 (0.0-0.1) K/mm3 Abs Immat Gran (auto) 0.09 H (0.00-0.031) K/mm3 Absolute Neuts (auto) 7.8 H (1.3-6.7) K/mm3 Absolute Nucleated RBC 0.000 (0.0-0.012) K/mm3 Nucleated RBC % 0.0 (0.0-0.2) % Sodium 138 (137-145) mmol/L Potassium 4.6 (3.4-5.0) mmol/L Chloride 99 (98-107) mmol/L Carbon Dioxide 34 H (22-30) mmol/L Anion Gap 5 (4-12) mmol/L BUN 22 H (7-17) mg/dL Creatinine 0.99 (0.7-1.0) mg/dL Estim Creat Clear Calc 34 ml/min Estimated GFR 54 L (59 - ) Glucose 104 (65-110) mg/dL Calcium 9.0 (8.4-10.2) mg/dL Total Bilirubin 0.2 (0.2-1.3) mg/dL AST 24 (14-36) U/L ALT 15 (6-35) U/L Alkaline Phosphatase 55 (38-126) U/L Total Protein 7.6 (6.3-8.2) g/dL Albumin 4.1 (3.5-5.1) g/dL Urine Color Yellow (Yellow) Urine Appearance Cloudy H (Clear) Urine pH 6.0 (5.0-9.0) Ur Specific [place] 1.012 (1.001-1.035) Urine Protein Negative (Negative) mg/dL Urine Glucose (UA) Negative (Negative) mg/dL Urine Ketones Negative (Negative) mg/dL Ur Blood (Man) Non-hemolyzed trace H (Negative) Urine Nitrate Negative (Negative) Urine Bilirubin Negative (Negative) Urine Urobilinogen 0.2 (<2.0) mg/dL Leukocyte Esterase Rfl 3+ H (Negative) DENTON/UL Urine RBC 0-2 (0-2) /hpf Urine WBC >100 H (0-3) /hpf Ur Squamous Epith Cells Occasional (Few) /hpf Urine Bacteria None seen /hpf Urine Casts 0-2 <Rosy Kc, DONNA-C - Last Filed: 07/28/25 18:07> Lab Results 07/28/25 07/28/25 07/28/25 Range/Units 16:58 16:59 18:34 WBC 11.2 H (4.5-10.0) K/mm3 RBC 3.27 L (4.2-5.4) M/mm3 Hgb 10.0 L (12.0-15.0) g/dL Hct 32.6 L (37.0-47.0) % MCV 99.7 (80-100) fl MCH 30.6 (26-34) pg MCHC 30.7 L (32-36) g/dl RDW 15.1 H (11.5-14.5) % Plt Count 322 (150-375) k/mm3 MPV 11.5 H (7.4-10.4) fl Immature Gran % (Auto) 0.8 H (0-0.5) % Neut % (Auto) 69.4 (45.5-73.1) % Lymph % (Auto) 17.5 L (18.3-44.2) % Darke % (Auto) 7.8 (2.6-8.5) % Eos % (Auto) 4.0 (0-4.4) % Baso % (Auto) 0.5 (0.2-1.2) % Lymph # (Auto) 1.96 (0.9-3.2) K/mm3 Darke # (Auto) 0.9 H (0.1-0.6) K/mm3 Eos # (Auto) 0.5 H (0-0.3) K/mm3 Baso # (Auto) 0.1 (0.0-0.1) K/mm3 Abs Immat Gran (auto) 0.09 H (0.00-0.031) K/mm3 Absolute Neuts (auto) 7.8 H (1.3-6.7) K/mm3 Absolute Nucleated RBC 0.000 (0.0-0.012) K/mm3 Nucleated RBC % 0.0 (0.0-0.2) % Sodium 138 (137-145) mmol/L Potassium 4.6 (3.4-5.0) mmol/L Chloride 99 (98-107) mmol/L Carbon Dioxide 34 H (22-30) mmol/L Anion Gap 5 (4-12) mmol/L BUN 22 H (7-17) mg/dL Creatinine 0.99 (0.7-1.0) mg/dL Estim Creat Clear Calc 34 ml/min Estimated GFR 54 L (59 - ) Glucose 104 (65-110) mg/dL Calcium 9.0 (8.4-10.2) mg/dL Total Bilirubin 0.2 (0.2-1.3) mg/dL AST 24 (14-36) U/L ALT 15 (6-35) U/L Alkaline Phosphatase 55 (38-126) U/L Total Protein 7.6 (6.3-8.2) g/dL Albumin 4.1 (3.5-5.1) g/dL Urine Color Yellow (Yellow) Urine Appearance Cloudy H (Clear) Urine pH 6.0 (5.0-9.0) Ur Specific [place] 1.012 (1.001-1.035) Urine Protein Negative (Negative) mg/dL Urine Glucose (UA) Negative (Negative) mg/dL Urine Ketones Negative (Negative) mg/dL Ur Blood (Man) Non-hemolyzed trace H (Negative) Urine Nitrate Negative (Negative) Urine Bilirubin Negative (Negative) Urine Urobilinogen 0.2 (<2.0) mg/dL Leukocyte Esterase Rfl 3+ H (Negative) DENTON/UL Urine RBC 0-2 (0-2) /hpf Urine WBC >100 H (0-3) /hpf Ur Squamous Epith Cells Occasional (Few) /hpf Urine Bacteria None seen /hpf Urine Casts 0-2 <Whit Alexandra, WHEAT GROWER - Last Filed: 07/28/25 22:02> Lab Results 07/28/25 07/28/25 07/28/25 Range/Units 16:58 16:59 18:34 WBC 11.2 H (4.5-10.0) K/mm3 RBC 3.27 L (4.2-5.4) M/mm3 Hgb 10.0 L (12.0-15.0) g/dL Hct 32.6 L (37.0-47.0) % MCV 99.7 (80-100) fl MCH 30.6 (26-34) pg MCHC 30.7 L (32-36) g/dl RDW 15.1 H (11.5-14.5) % Plt Count 322 (150-375) k/mm3 MPV 11.5 H (7.4-10.4) fl Immature Gran % (Auto) 0.8 H (0-0.5) % Neut % (Auto) 69.4 (45.5-73.1) % Lymph % (Auto) 17.5 L (18.3-44.2) % Darke % (Auto) 7.8 (2.6-8.5) % Eos % (Auto) 4.0 (0-4.4) % Baso % (Auto) 0.5 (0.2-1.2) % Lymph # (Auto) 1.96 (0.9-3.2) K/mm3 Darke # (Auto) 0.9 H (0.1-0.6) K/mm3 Eos # (Auto) 0.5 H (0-0.3) K/mm3 Baso # (Auto) 0.1 (0.0-0.1) K/mm3 Abs Immat Gran (auto) 0.09 H (0.00-0.031) K/mm3 Absolute Neuts (auto) 7.8 H (1.3-6.7) K/mm3 Absolute Nucleated RBC 0.000 (0.0-0.012) K/mm3 Nucleated RBC % 0.0 (0.0-0.2) % Sodium 138 (137-145) mmol/L Potassium 4.6 (3.4-5.0) mmol/L Chloride 99 (98-107) mmol/L Carbon Dioxide 34 H (22-30) mmol/L Anion Gap 5 (4-12) mmol/L BUN 22 H (7-17) mg/dL Creatinine 0.99 (0.7-1.0) mg/dL Estim Creat Clear Calc 34 ml/min Estimated GFR 54 L (59 - ) Glucose 104 (65-110) mg/dL Calcium 9.0 (8.4-10.2) mg/dL Total Bilirubin 0.2 (0.2-1.3) mg/dL AST 24 (14-36) U/L ALT 15 (6-35) U/L Alkaline Phosphatase 55 (38-126) U/L Total Protein 7.6 (6.3-8.2) g/dL Albumin 4.1 (3.5-5.1) g/dL Urine Color Yellow (Yellow) Urine Appearance Cloudy H (Clear) Urine pH 6.0 (5.0-9.0) Ur Specific [place] 1.012 (1.001-1.035) Urine Protein Negative (Negative) mg/dL Urine Glucose (UA) Negative (Negative) mg/dL Urine Ketones Negative (Negative) mg/dL Ur Blood (Man) Non-hemolyzed trace H (Negative) Urine Nitrate Negative (Negative) Urine Bilirubin Negative (Negative) Urine Urobilinogen 0.2 (<2.0) mg/dL Leukocyte Esterase Rfl 3+ H (Negative) DENTON/UL Urine RBC 0-2 (0-2) /hpf Urine WBC >100 H (0-3) /hpf Ur Squamous Epith Cells Occasional (Few) /hpf Urine Bacteria None seen /hpf Urine Casts 0-2 <Joo Obando MD - Last Filed: 08/02/25 19:17> ABG Data ABG results: 07/28/25 19:24 Puncture Site Right brachial ABG pH 7.422 ABG pCO2 51.8 H ABG pO2 60.1 L ABG PO2/FiO2 Ratio 1.88 ABG HCO3 33.0 H ABG O2 Saturation 91.1 L ABG O2 Content 14.1 L ABG Base Excess 7.4 A-a Gradient 107.5 Oxyhemoglobin 91.0 Total Hemoglobin 11.0 L O2 Delivery Device Nasal cannula O2 Liters/Min 3.0 FiO2 32 <SKYLAR Heck - Last Filed: 07/28/25 18:07> 07/28/25 19:24 Puncture Site Right brachial ABG pH 7.422 ABG pCO2 51.8 H ABG pO2 60.1 L ABG PO2/FiO2 Ratio 1.88 ABG HCO3 33.0 H ABG O2 Saturation 91.1 L ABG O2 Content 14.1 L ABG Base Excess 7.4 A-a Gradient 107.5 Oxyhemoglobin 91.0 Total Hemoglobin 11.0 L O2 Delivery Device Nasal cannula O2 Liters/Min 3.0 FiO2 32 <Whit Alexandra, CARMELA - Last Filed: 07/28/25 22:02> 07/28/25 19:24 Puncture Site Right brachial ABG pH 7.422 ABG pCO2 51.8 H ABG pO2 60.1 L ABG PO2/FiO2 Ratio 1.88 ABG HCO3 33.0 H ABG O2 Saturation 91.1 L ABG O2 Content 14.1 L ABG Base Excess 7.4 A-a Gradient 107.5 Oxyhemoglobin 91.0 Total Hemoglobin 11.0 L O2 Delivery Device Nasal cannula O2 Liters/Min 3.0 FiO2 32 <Joo Obando MD - Last Filed: 08/02/25 19:17> Imaging Data Attestation: I personally reviewed and interpreted this imaging study as follows: <Whit Alexandra APRN - Last Filed: 07/28/25 22:02> Radiologist's impression: Impressions Chest X-Ray 07/28/25 17:29 IMPRESSION: 1. No significant change in elevation right hemidiaphragm and bilateral airspace and interstitial opacities consistent with chronic interstitial lung disease. Abdomen/Pelvis CT 07/28/25 19:55 IMPRESSION: 1. Stranding surrounding the wall the bladder raising suspicion for cystitis. Correlate with urinalysis.. 2. 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 <Whit Alexandra APRN - Last Filed: 07/28/25 22:02> Discharge Plan Discharge Clinical Impression: Urinary tract infection <SKYLAR Heck - Last Filed: 07/28/25 18:07> Patient Disposition: [facility] <SKYLAR Heck - Last Filed: 07/28/25 18:07> Condition: Stable <SKYLAR Heck - Last Filed: 07/28/25 18:07> Instructions: Antibiotic Form, Urinary Tract Infection in Older Adults (ED) <SKYLAR Heck - Last Filed: 07/28/25 18:07> Additional Instructions: Please return to the ER with any worsening symptoms. Follow-up with primary care provider as soon as possible for re-evaluation. Take all medications as prescribed, including regularly scheduled medications. Complete your full dose of antibiotics as prescribed. <SKYLAR Heck - Last Filed: 07/28/25 18:07> Patient Language: Palestinian <SKYLAR Heck - Last Filed: 10/27/25 18:07> Prescriptions: New cefuroxime axetil 250 mg tablet 250 mg PO BID Qty: 20 0RF No Action esomeprazole magnesium [address] for susp in packet 40 mg PO DAILY guaifenesin 600 mg tablet extended release 12hr 600 mg PO BID bupropion HCl 75 mg tablet 75 mg PO DAILY Eliquis 2.5 mg tablet 2.5 mg PO BID furosemide 40 mg tablet 40 mg PO QAM albuterol sulfate 2.5 mg /3 mL (0.083 %) solution for nebulization 2.5 mg inhalation QID PRN (Reason: SOB) omega [id number]-[id number]-fish oil [Fish Oil] 1,000 mg (120 mg-180 mg) capsule 1 cap PO DAILY amlodipine 5 mg tablet 5 mg PO DAILY ferrous sulfate 325 mg (65 mg iron) tablet 325 mg PO DAILY baclofen 10 mg tablet 10 mg PO Q12H pregabalin [Lyrica] 150 mg capsule 100 mg PO Q8H cephalexin 500 mg Capsule 500 mg PO Q12HR Qty: 6 0RF ondansetron 4 mg Tablet,Disintegrating 4 mg PO Q6H PRN (Reason: nausea and vomitting) Qty: 10 0RF carvedilol [Coreg] 3.125 mg Tablet 3.125 mg PO BID acetaminophen 650 mg Tablet Extended Release 650 mg PO Q6H PRN (Reason: Mild Pain (Scale Score 1-4)) loperamide 2 mg Capsule 2 mg PO Q12H PRN (Reason: Diarrhea) cholecalciferol (vitamin D3) 25 mcg (1,000 unit) Tablet 25 mcg PO DAILY artificial tears solution Drops 1 drp OPHTHALMIC (EYE) BID atorvastatin 40 mg tablet 40 mg PO QPM diclofenac sodium 50 mg tablet,delayed release (DR/EC) 50 mg PO Q12H PRN (Reason: inflammation) ascorbic acid (vitamin C) 500 mg tablet 500 mg PO BID bisacodyl 10 mg suppository 10 mg RECTAL DAILY PRN (Reason: constipation) magnesium citrate [Citroma] Solution 296 ml PO DAILY PRN (Reason: constipation) multivitamin [Daily Multi-Vitamin] Tablet 1 tablet PO DAILY senna 8.6 mg capsule 8.6 mg PO BID Trexall 7.5 mg tablet 7.5 mg PO WEEKLY Patient Comments: To be given on budesonide [Pulmicort] 0.5 mg/2 mL Suspension For Nebulization 0.5 mg inhalation Q12HRT Qty: 30 0RF fluticasone propionate 50 mcg/actuation [place],Suspension 1 spray intranasal Q12HR Qty: 30 0RF baclofen 10 mg tablet 10 mg PO Q6H PRN (Reason: moderate pain) hydrocodone-acetaminophen 5-325 mg tablet 1 tablet PO TID PRN (Reason: pain) trazodone 50 mg tablet 50 mg PO HS umeclidinium-vilanterol [Anoro Ellipta] 62.5-25 mcg/actuation blister with device 1 inh INHALATION Q24H Lactobacillus acidophilus Capsule 100 mg PO BID cetirizine [24Hour Allergy] 10 mg tablet 5 mg PO HS diphenhydramine HCl [Allergy (diphenhydramine)] 25 mg capsule 25 mg PO Q6H PRN (Reason: itching) polyethylene glycol 3350 [ClearLax] 17 gram powder in packet 17 g PO DAILY Creon 24,000-76,000 -120,000 unit capsule,delayed release(DR/EC) 2 cap PO TIDWM Enema 19-7 gram/118 mL enema 118 ml RECTAL DAILY PRN (Reason: constipation) benzonatate 100 mg Capsule 100 mg PO TID PRN (Reason: Cough) Qty: 30 0RF folic acid 1 mg tablet 1 mg PO DAILY Qty: 90 2RF <SKYLAR Heck - Last Filed: 07/28/25 18:07> Follow-up/Referrals: Codey,Rory [Other] Mariano Walker MD [Physician, Family Practice] Referral Note: primary care provider <SKYLAR Heck - Last Filed: 07/28/25 18:07> Stand Alone Forms: Intermediate Discharge <SKYLAR Heck - Last Filed: 07/28/25 18:07> Time of Disposition: 22:02 <SKYLAR Heck - Last Filed: 07/28/25 18:07> 22:02 <Whit Alexandra APRN - Last Filed: 07/28/25 22:02> 22:02 <Joo Obando MD - Last Filed: 08/02/25 19:17>
[2025-07-28 18:53] LABS: Add Urine Microscopic? YES; Appearance Urine Cloudy (Clear); Glucose Urine UA Negative (Negative); Leukocyte Esterase Ur 3+ LEU/UL (Negative); Nitrate Urine Negative (Negative); Non Pathogenic Casts 0-2; Specific Grav Ur 1.012 (1.001-1.035)
[2025-07-28 19:32] LABS: Alveolar/Arterial O2 Gradient 107.5 mmHg; Fractional Inspired Oxygen 32 %; HCO3 ABG 33.0 mEq/l (22.0-26.0); Oxygen Content ABG 14.1 %vol (16.0-22.0); Oxygen Saturation ABG 91.1 % (95.0-100.0); PCO2 ABG 51.8 mmHg (35.0-45.0); PO2 ABG 60.1 mmHg (80.0-100.0); PO2 FiO2 Ratio Arterial Blood 1.88 %
[2025-07-28 19:34] LABS: Modified Allen's Test Pass; Site Drawn RIGHT BRACHIAL
[2025-07-28 19:35] LABS: Liters per Minute 3.0 LPM
[2025-07-28] MEDS: cefTRIAXone 1 GM in SODIUM CHLORIDE 0.9% IV 50 ML 100 ML IVPB (20:10)
[2025-07-28] MEDS: MORPHINE SULFATE (*CRX) 4 MG/ML INJ 2 MG IV PUSH (20:22)
--- NOTE | 2025-07-28 20:43 | PC.NURSE ---
RN at [facility] called for an update on patient. ED RN spoke with top carrier and awaiting to see if patient will be discharged back or admitted.
--- NOTE | 2025-07-28 23:07 | PC.NURSE ---
RN spoke with grand-daughter about transfer back to facility.
== END 2025-07-28 23:08 ==
PROVIDERS: Emergency Medicine; Registered Nurse; Emergency Provider Nurse Practitioner Adult Health
DX: N39.0 Urinary tract infection, site not specified (principal); I11.0 Hypertensive heart disease with heart failure; I50.30 Unspecified diastolic (congestive) heart failure; I27.21 Secondary pulmonary arterial hypertension; J43.9 Emphysema, unspecified; J96.11 Chronic respiratory failure with hypoxia; J96.12 Chronic respiratory failure with hypercapnia; Z99.81 Dependence on supplemental oxygen; E78.5 Hyperlipidemia, unspecified; E55.9 Vitamin D deficiency, unspecified; F03.90 Unspecified dementia, unspecified severity, without behavioral disturbance, psychotic disturbance, mood disturbance, and anxiety; J84.9 Interstitial pulmonary disease, unspecified; R73.03 Prediabetes; N32.81 Overactive bladder; K86.81 Exocrine pancreatic insufficiency; K21.9 Gastro-esophageal reflux disease without esophagitis; M81.0 Age-related osteoporosis without current pathological fracture; M19.90 Unspecified osteoarthritis, unspecified site; F41.9 Anxiety disorder, unspecified; F32.A Depression, unspecified; Z87.01 Personal history of pneumonia (recurrent); Z87.891 Personal history of nicotine dependence; Z87.11 Personal history of peptic ulcer disease; Z86.711 Personal history of pulmonary embolism; Z86.16 Personal history of COVID-19; Z98.1 Arthrodesis status; Z90.710 Acquired absence of both cervix and uterus; Z90.49 Acquired absence of other specified parts of digestive tract; Z79.01 Long term (current) use of anticoagulants; Z79.899 Other long term (current) drug therapy; K57.30 Diverticulosis of large intestine without perforation or abscess without bleeding; R94.31 Abnormal electrocardiogram [ECG] [EKG]
CPT/HCPCS: 36415; 36600; 71046; 74177; 80053; 81001; 82805; 85018; 85025; 87040; 87077; 87086; 87186; 93005; 96365; 96375; 99284; J0696; J2270; Q9967